=== PATIENT | male | born 1950 | race Caucasian/White ===

== ENCOUNTER 2022-10-18 09:04 | Outpatient (OUT) | payer MEDICARE, OTHER, SELFPAY ==
--- NOTE | 2022-10-18 09:32 | US_ITS ---
The [address] [address] Patient Name: MAURY VILLALPANDO MRN: [id number] date: 1950 Sex: M Assigned Patient Location: US Current Patient Location: US Accession/Order Number: [id number] Exam Date: 10/18/2022 10:20 Report Date: 10/19/2022 08:05 At the request of: NON-STAFF PHYSICIAN Procedure: US renal BI EXAMINATION: US renal BI HISTORY: Renal Cyst N28.1 , chronic left flank pain COMPARISON: CT abdomen pelvis without contrast 09/12/2022, ultrasound kidneys 06/18/2019 TECHNIQUE: Ultrasound examination was performed of the kidneys and urinary bladder. FINDINGS: RIGHT KIDNEY: Contains a few small nonobstructing stones. No evidence of pelvocaliectasis or mass. Normal renal cortical parenchymal echogenicity. Color Doppler demonstrates blood flow within the kidney. Kidney: 10.1 x 4.9 x 4.9 cm LEFT KIDNEY: Contain several benign-appearing cysts, largest is 3.2 cm. Collection of nonobstructing stones within inferior pole. Normal renal cortical parenchymal echogenicity. Color Doppler demonstrates blood flow within the kidney. Kidney: 11.4 x 5.1 x 6.7 cm BLADDER: No visible wall thickening, mass, or calculi. IMPRESSION: 1. Bilateral nonobstructing nephrolithiasis. 2. Benign-appearing cysts. No suspicious renal findings. Electronically authenticated by: ALTHEA ARCHIBALD Date: 10/19/2022 08:05
[2022-10-18 12:26] LABS: Prostate Specific Antigen Dx 1.43 ng/mL (<=4.00)
== END 2022-10-18 09:05 ==
LOC: US 09:12
PROVIDERS: PCP Internal Medicine
DX: N28.1 Cyst of kidney, acquired (principal); R97.20 Elevated prostate specific antigen [PSA]
CPT/HCPCS: 36415; 76775; 84153

== ENCOUNTER 2023-01-12 08:56 | Outpatient (OUT) | payer MEDICARE, OTHER, SELFPAY ==
[2023-01-19 14:10] LABS: Pancreatic Elastase, Fecal <50 (>200)
[2023-01-20 17:09] LABS: Lactoferrin, Fecal, Quant. 1.78 ug/mL(g) (0.00-7.24)
[2023-01-24 00:10] LABS: Calprotectin, Fecal 36 ug/g (0-120)
[2023-01-24 15:07] LABS: Ova + Parasite Exam Final report (.)
== END 2023-01-12 08:57 | disposition home or self-care (01) ==
LOC: LAB 08:58
PROVIDERS: PCP Internal Medicine; Visit Provider Internal Medicine
DX: R19.7 Diarrhea, unspecified (principal)
CPT/HCPCS: 82656; 83631; 83993; 87045; 87046; 87177; 87209; 87427

== ENCOUNTER 2023-01-31 19:55 | Outpatient (OUT) | payer MEDICARE, OTHER, SELFPAY | END 2023-01-31 19:56 | disposition home or self-care (01) | LOC: SLEEP 19:55 | PROVIDERS: PCP Internal Medicine; Visit Provider Internal Medicine | DX: G47.33 Obstructive sleep apnea (adult) (pediatric) (principal) | CPT/HCPCS: 95810 ==

== ENCOUNTER 2023-02-24 17:04 | Emergency (ER) | payer MEDICARE, OTHER, SELFPAY ==
[2023-02-24] VITALS (36 sets, daily range): BP systolic 91–121; BP diastolic 50–77; PULSE 58–76; RESP 9–22; TEMP 36.6; O2SAT 95–100; BMI 28.4
--- NOTE | 2023-02-24 17:22 | ECG_ITS ---
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
--- NOTE | 2023-02-24 17:22 | ED.CHESTPAI1 ---
HPI - Chest Pain General Chief Complaint: Chest Pain Stated Complaint: HYPOTENSION Time Seen by Provider: 02/24/23 17:09 Source: patient Mode of arrival: walk-in Limitations: no limitations History of Present Illness HPI narrative: patient is a pleasant 72-year-old male history of coronary artery disease and stent ?1 who presents to the Emergency Room for the evaluation of hypotension and intermittent chest pain since last night. Patient denies any chest pain at this time. He had a negative cardiac catheterization earlier this year. He does not smoke. He states he was diagnosed with Covid with a home Covid test five days ago. He has had symptoms for six days. He has multiple sick contacts in the home. He was recently taken off of his amlodipine, his PCP discontinued this medication earlier this month and increased his lisinopril dosage. He was instructed to take his blood pressure regularly and his noted since yesterday that he has been lightheaded and had low blood pressure. He is eating and drinking well. No fevers or vomiting. No peripheral edema. No significant cough, no complaint of shortness of breath. he states his low blood pressure was his primary concern. He states on arrival to the Emergency Room he is feeling better. Risk Factors Coronary artery disease risk factors: hyperlipidemia and hypertension Related Data Home Medications Medication Instructions Recorded Confirmed albuterol sulfate 2.5 mg/3 mL 2.5 mg continuous nebulization Q4H 02/24/23 02/24/23 (0.083 %) solution for nebulization PRN shortness of breath or wheezing atorvastatin 40 mg tablet 40 mg PO DAILY 02/24/23 02/24/23 citalopram 20 mg tablet 20 mg PO DAILY 02/24/23 02/24/23 clopidogrel 75 mg tablet 75 mg PO DAILY 02/24/23 02/24/23 gabapentin 300 mg capsule 300 mg PO BEDTIME 02/24/23 02/24/23 lisinopril 40 mg tablet 40 mg PO DAILY 02/24/23 02/24/23 prednisone 20 mg tablet 20 mg PO Q12H 02/24/23 02/24/23 pyrilamine 7.5 mg-dextromethorphan 10 ml PO .evvery 8 hours 02/24/23 02/24/23 7.5 mg/5 mL oral liquid ([place] DM) Allergies Allergy/AdvReac Type Severity Reaction Status Date / Time No Known Drug Allergies Allergy Verified 02/24/23 17:13 Review of Systems ROS Constitutional Denies: fever or chills Ears, nose, mouth, and throat Reports: nasal congestion; Denies: throat pain Cardiovascular Reports: chest pain Respiratory Reports: cough; Denies: shortness of breath Gastrointestinal Denies: nausea or vomiting Genitourinary Denies: painful urination Musculoskeletal Denies: back pain Integumentary/Breast Denies: rash Neurological Denies: headache Hematologic/Lymphatic Reports: easy bruising Exam Narrative Exam Narrative: Gen.: Awake, alert, in no distress Head: Normocephalic, atraumatic ENT: Moist mucous membranes Respiratory: No respiratory distress, lungs clear bilaterally Cardio: Regular rate and rhythm Gastrointestinal: Abdomen is soft, nondistended and nontender to palpation Extremities: Moves extremities equally, no pedal edema Psych: Normal mood and affect Neuro: No focal neuro deficit Skin: Warm, dry, intact Constitutional Vital Signs, click to edit/add: Last Vital Signs Temp 98 F 02/24/23 17:22 Pulse 68 02/24/23 20:30 Resp 15 02/24/23 20:30 BP 121/77 02/24/23 20:30 Pulse Ox 98 02/24/23 20:30 O2 Del Method Room Air 02/24/23 17:22 Course Vital Signs Vital signs: Vital Signs Pulse Oximetry 98 02/24/23 17:16 Temperature 98 F 02/24/23 17:22 Pulse Rate 68 02/24/23 20:30 Respiratory Rate 15 02/24/23 20:30 Blood Pressure 121/77 02/24/23 20:30 Pulse Oximetry 98 02/24/23 20:30 Oxygen Delivery Method Room Air 02/24/23 17:22 MDM - Chest Pain MDM Narrative Medical decision making narrative: patient treated with IV fluids. He had no chest pain complaints in the Emergency Room. He maintains a stable manual blood pressure with a systolic over one hundred. Labs obtained, chest x-ray with no evidence of acute cardiopulmonary changes. Patient found to have significantly elevated BUN, stable creatinine of 2.6 and anemia with hemoglobin of eight. I discussed this with the patient, as well as my suspicion for gastrointestinal bleed. Patient reveals that he had endoscopy and colonoscopy with Dr. Donis at [facility] one week ago and states his test was unremarkable. He does state that he has been having dark tarry stools for the last several days. He is on Plavix daily. Rectal exam was performed with Shaye Mota RN at bedside throughout the duration of the exam. There is no active bleeding per rectum. A small amount of dark stool was obtained for Hemoccult, patient is Hemoccult-positive. IV Protonix given for gastrointestinal bleed. Discussed admission with general surgery, Dr. Daly ([id number]) who feels the patient should be transferred to the facility where he was just recently scoped for endoscopy and colonoscopy. Patient is agreeable to transfer to [facility]. Type and screen was obtained, repeat troponin obtained. 1854: discussed the case with Dr. Villafana for gastrointestinal service at [facility] who is in agreement with transfer to [facility]. He requested an IV bolus of 80 mg of Protonix and then the patient can be transitioned to IV Protonix twice a day. Hospitalist paged at [facility] for transfer. 2049: patient was accepted by Dr. Ramos for hospitalist service. Patient is stable at this time with stable vital signs, no hypotension or tachycardia. He has not complained of chest pain and repeat troponin is normal. we received a bed assignment almost immediately, patient will be transferred by EMS, stable at this time. Critical care time thirty-five minutes Medical Records Data Attestation: I reviewed the patient's medical records. Lab Data Attestation: I reviewed the patient's lab results. Labs: Lab Results 02/24/23 02/24/23 02/24/23 Range/Units 17:35 18:20 18:45 WBC 16.6 H (4.0-11.0) 10^3/uL RBC 2.75 L (4.70-6.10) 10^6/uL Hgb 8.1 L (14.0-18.0) g/dL Hct 24.2 L (42.0-54.0) % MCV 88.0 (80.0-94.0) fL MCH 29.5 (25.9-34.0) pg MCHC 33.5 (29.9-35.2) g/dL RDW 13.9 (11.0-15.0) % Plt Count 178 (150-450) 10^3/uL MPV 10.8 (9.5-13.5) fL Neut % (Auto) 86.9 H (43.0-75.0) % Lymph % (Auto) 8.2 L (20.5-60.0) % [place] % (Auto) 3.5 (1.7-12.0) % Eos % (Auto) 0.0 L (0.9-7.0) % Baso % (Auto) 0.1 L (0.2-2.0) % Neut # (Auto) 14.5 H (1.4-6.5) 10^3/uL Lymph # (Auto) 1.4 (1.2-3.8) 10^3/uL [place] # (Auto) 0.6 (0.3-0.8) 10^3/uL Eos # (Auto) 0.0 (0.0-0.7) 10^3/uL Baso # (Auto) 0.0 (0.0-0.1) 10^3/uL Abs Immat Gran (auto) 0.22 H (0.00-0.03) 10^3/uL Imm/Tot Granulo (auto) 1.3 H (0.0-0.5) % PT 11.1 (9.0-11.6) sec INR 1.05 APTT 20.8 L (22.3-36.2) sec Sodium 135 L (136-145) mmol/L Potassium 3.6 (3.5-5.1) mmol/L Chloride 101 (98-107) mmol/L Carbon Dioxide 23.7 (21.0-32.0) mmol/L Anion Gap 13.9 BUN 93.0 H* (7.0-18.0) mg/dL Creatinine 2.60 H (0.70-1.30) mg/dL Est GFR ( Amer) 30 L (>=60) Est GFR (Non-Af Amer) 25 L (>=60) BUN/Creatinine Ratio 35.8 Glucose 173 H (74-106) mg/dL Calcium 8.5 (8.5-10.1) mg/dL Total Bilirubin 0.4 (0.2-1.0) mg/dL AST 13 L (15-37) U/L ALT 22 (16-63) U/L Alkaline Phosphatase 33 L (46-116) U/L Troponin I High Sens 16.5 16.8 (4.0-76.1) pg/mL NT-Pro-B Natriuret Pep 261.0 (<=900.0) pg/mL Total Protein 6.1 L (6.4-8.2) g/dL Albumin 3.1 L (3.4-5.0) g/dL Globulin 3.0 g/dL Albumin/Globulin Ratio 1.0 Stool Occult Blood Positive A Blood Type AB Positive Antibody Screen Negative Imaging Data Chest x-ray: Attestation: I have reviewed the pertinent imaging results. Radiologist's impression: Procedure: XR chest 1V EXAMINATION: XR chest 1V HISTORY: Chest pain COMPARISON: None. TECHNIQUE: Portable chest FINDINGS: The lung parenchyma is free of consolidation or infiltrate. No pneumothorax or pleural effusion. The cardiac, mediastinal and hilar contours are normal. The visualized osseous structures exhibit no gross abnormality. IMPRESSION: No acute cardiopulmonary abnormality. Electronically authenticated by: MAYITO CONTRERAS Date: 02/24/2023 18:04 ECG Data Attestation: I personally reviewed and interpreted this ECG as follows: (normal sinus rhythm at a rate of fifty-eight, no acute ST elevation or ectopy. EKG reviewed by attending physician) ECG interpretation date: 02/24/23 ECG interpretation time: 17:24 Critical Care Time Critical Care Time Total Critical Care Time: 35 Discharge Plan Discharge Chief Complaint: Chest Pain Clinical Impression: Acute hypotension, COVID-19, GI bleed, Anemia, Chest pain Patient Disposition: [facility] Time of Disposition Decision: 20:55 Discharge Location: [facility] Condition: Good Prescriptions / Home Meds: No Action albuterol sulfate 2.5 mg /3 mL (0.083 %) solution for nebulization 2.5 mg continuous nebulization Q4H PRN (Reason: shortness of breath or wheezing) atorvastatin 40 mg tablet 40 mg PO DAILY citalopram 20 mg tablet 20 mg PO DAILY clopidogrel 75 mg tablet 75 mg PO DAILY gabapentin 300 mg capsule 300 mg PO BEDTIME prednisone 20 mg tablet 20 mg PO Q12H [place] DM 7.5-7.5 mg/5 mL liquid 10 ml PO .evvery 8 hours lisinopril 40 mg tablet 40 mg PO DAILY Referrals: ARASELI KAUR [Primary Care Provider] - 1 week
--- NOTE | 2023-02-24 17:23 | XR_ITS ---
The [address] [address] Patient Name: MAURY VILLALPANDO MRN: [id number] date: 1950 Sex: M Assigned Patient Location: ER Current Patient Location: ER Accession/Order Number: [id number] Exam Date: 02/24/2023 17:50 Report Date: 02/24/2023 18:04 At the request of: EFE CALDERON Procedure: XR chest 1V EXAMINATION: XR chest 1V HISTORY: Chest pain COMPARISON: None. TECHNIQUE: Portable chest FINDINGS: The lung parenchyma is free of consolidation or infiltrate. No pneumothorax or pleural effusion. The cardiac, mediastinal and hilar contours are normal. The visualized osseous structures exhibit no gross abnormality. XR/XR chest 1V IMPRESSION: No acute cardiopulmonary abnormality. Electronically authenticated by: MAYITO CONTRERAS Date: 02/24/2023 18:04
[2023-02-24] MEDS: 0.9 % SODIUM CHLORIDE 1,000 ML 1000 ML IV (17:42)
[2023-02-24 17:44] LABS: Basophils Percent Auto 0.1 % (0.2-2.0); Hematocrit 24.2 % (42.0-54.0); Hemoglobin 8.1 g/dL (14.0-18.0); Immature Granulocytes Abs Auto 0.22 10^3/uL (0.00-0.03); Immature Granulocytes Pct Auto 1.3 % (0.0-0.5); Lymphocytes Absolute Auto 1.4 10^3/uL (1.2-3.8); Lymphocytes Percent Auto 8.2 % (20.5-60.0); Mean Corpuscular HGB Conc 33.5 g/dL (29.9-35.2); Mean Corpuscular Hemoglobin 29.5 pg (25.9-34.0); Mean Platelet Volume 10.8 fL (9.5-13.5); Monocytes Absolute Auto 0.6 10^3/uL (0.3-0.8); Monocytes Percent Auto 3.5 % (1.7-12.0); Neutrophils Absolute Auto 14.5 10^3/uL (1.4-6.5); Neutrophils Percent Auto 86.9 % (43.0-75.0); Platelet Count 178 10^3/uL (150-450); Red Blood Count 2.75 10^6/uL (4.70-6.10); Red Cell Distribution Width 13.9 % (11.0-15.0); White Blood Count 16.6 10^3/uL (4.0-11.0)
[2023-02-24 17:58] LABS: INR 1.05; Partial Thromboplastin Time 20.8 sec (22.3-36.2); Prothrombin Time 11.1 sec (9.0-11.6)
[2023-02-24 18:07] LABS: Alanine Aminotransferase 22 U/L (16-63); Albumin Level 3.1 g/dL (3.4-5.0); Alkaline Phosphatase 33 U/L (46-116); Anion Gap 13.9; Aspartate Amino Transferase 13 U/L (15-37); BUN Creatinine Ratio 35.8; Bilirubin Total 0.4 mg/dL (0.2-1.0); Calcium 8.5 mg/dL (8.5-10.1); Carbon Dioxide 23.7 mmol/L (21.0-32.0); Chloride 101 mmol/L (98-107); Estimated GFR (African America 30 (>=60); Estimated GFR (Non-African Ame 25 (>=60); Glucose 173 mg/dL (74-106); Potassium 3.6 mmol/L (3.5-5.1); Sodium 135 mmol/L (136-145); Total Protein 6.1 g/dL (6.4-8.2); Troponin I High Sensitivity 16.5 pg/mL (4.0-76.1)
--- NOTE | 2023-02-24 18:20 | ECG_ITS ---
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
[2023-02-24 18:33] LABS: Occult Blood Positive
[2023-02-24] MEDS: PANTOPRAZOLE SODIUM 40 MG VIAL IV ×2 (18:57→19:15)
[2023-02-24 19:18] LABS: Troponin I High Sensitivity 16.8 pg/mL (4.0-76.1)
[2023-02-24] MEDS: 0.9 % SODIUM CHLORIDE 1,000 ML 80 ML IV (21:34)
== END 2023-02-24 22:32 | disposition short-term general hospital (02) ==
PROVIDERS: Physician Assistant; Emergency Provider Emergency Medicine; PCP Internal Medicine
DX: K92.2 Gastrointestinal hemorrhage, unspecified (principal); R07.9 Chest pain, unspecified; I95.9 Hypotension, unspecified; D64.9 Anemia, unspecified; I25.10 Atherosclerotic heart disease of native coronary artery without angina pectoris; Z95.5 Presence of coronary angioplasty implant and graft; Z79.899 Other long term (current) drug therapy; U07.1 COVID-19; Z79.02 Long term (current) use of antithrombotics/antiplatelets
CPT/HCPCS: 36415; 71045; 80053; 83880; 84484; 85025; 85610; 85730; 86850; 86900; 86901; 93005; 96361; 96374; 99285; G0328

== ENCOUNTER 2023-03-28 19:47 | Outpatient (OUT) | payer MEDICARE, OTHER, SELFPAY | END 2023-03-28 19:48 | disposition home or self-care (01) | LOC: SLEEP 19:47 | PROVIDERS: PCP Internal Medicine; Visit Provider Internal Medicine | DX: G47.33 Obstructive sleep apnea (adult) (pediatric) (principal) | CPT/HCPCS: 95811 ==

== ENCOUNTER 2023-07-07 13:32 | Outpatient (OUT) | payer MEDICARE, OTHER, SELFPAY | END 2023-07-07 13:33 | disposition home or self-care (01) | LOC: MN 13:33 | PROVIDERS: PCP Internal Medicine | DX: E11.21 Type 2 diabetes mellitus with diabetic nephropathy (principal) | CPT/HCPCS: G0108 ==

== ENCOUNTER 2023-10-10 16:04 | Emergency (ER) | payer MEDICARE, OTHER, SELFPAY ==
[2023-10-10 16:13] VITALS: BP 129/87; PULSE 82; TEMP 37.4; O2SAT 97; BMI 28.6
--- NOTE | 2023-10-10 17:28 | ED.ABDPAIN1 ---
HPI - Abdominal Pain General Chief Complaint: Abdominal Pain Stated Complaint: Abdominal Pain Time Seen by Provider: 10/10/23 16:58 Source: patient Mode of arrival: walk-in Limitations: no limitations History of Present Illness HPI narrative: Patient was seen by his primary care physician's today and told to go to the ER. He started developing abdominal pain yesterday. He believes he spiked a fever last night and he also had several episodes of vomiting. He has not had any surgeries to his abdomen before. He says he also developed burning with urination. He does not have any back or flank pain. No history of kidney stones. He has not taken any antibiotics. He has coronary disease and received a coronary stent last year at [facility]. He does not have any chest pain or shortness of breath. Related Data Home Medications ?Medication ?Instructions ?Recorded ?Confirmed albuterol sulfate 2.5 mg/3 mL 2.5 mg continuous nebulization Q4H 02/24/23 10/10/23 (0.083 %) solution for nebulization PRN shortness of breath or wheezing atorvastatin 40 mg tablet 40 mg PO DAILY 02/24/23 10/10/23 citalopram 20 mg tablet 20 mg PO DAILY 02/24/23 10/10/23 clopidogrel 75 mg tablet 75 mg PO DAILY 02/24/23 02/24/23 empagliflozin 10 mg tablet 2.5 mg PO DAILY 02/24/23 10/10/23 gabapentin 300 mg capsule 300 mg PO BEDTIME 02/24/23 10/10/23 gabapentin 300 mg capsule 300 mg PO DAILY 02/24/23 10/10/23 insulin glargine 100 unit/mL (3 60 unit subcut DAILY 02/24/23 10/10/23 mL) subcutaneous pen lisinopril 40 mg tablet 20 mg PO DAILY 02/24/23 10/10/23 pantoprazole 40 mg tablet,delayed 40 mg PO DAILY 02/24/23 10/10/23 release pyrilamine 7.5 mg-dextromethorphan 10 ml PO .evvery 8 hours 02/24/23 02/24/23 7.5 mg/5 mL oral liquid ([place] DM) semaglutide 0.25 mg or 0.5 mg (2 0.25 mg subcut QWEEK 02/24/23 10/10/23 mg/3 mL) subcutaneous pen injector (Ozempic) tamsulosin 0.4 mg capsule 0.4 mg PO DAILY 02/24/23 10/10/23 Bacillus coagulans-inulin 1 1 cap PO Q12H 10/10/23 10/10/23 billion cell-250 mg capsule (Probiotic Formula (inulin)) apixaban 5 mg tablet 5 mg PO Q12H 10/10/23 10/10/23 carvedilol 12.5 mg tablet 12.5 mg PO Q12H 10/10/23 10/10/23 ferrous sulfate 325 mg (65 mg 325 mg PO DAILY 10/10/23 10/10/23 iron) tablet (FeroSul) ranolazine 500 mg tablet,extended 500 mg PO Q12H 10/10/23 10/10/23 release,12 hr spironolactone 25 mg tablet 12.5 mg PO DAILY 10/10/23 10/10/23 Allergies Allergy/AdvReac Type Severity Reaction Status Date / Time No Known Drug Allergies Allergy Verified 10/10/23 16:18 Exam Narrative Exam Narrative: Very pleasant woman vital's are stable temperature 99.3 pulse oximetry normal. Overall he appears healthy his skin is warm and dry his mucous memories are moist and pink his color is good. He has normal heart sounds with no S3 or murmur. He has no respiratory distress coughing or congestion. Examination abdomen no abdominal surgical incisions are noted. He has equal tenderness at McBurney's point the left mid and left lower quadrant are also tender. He has no tenderness in the right upper quadrant. Extremities are normal with no edema or swelling. Constitutional Vital Signs, click to edit/add: Last Vital Signs Temp 99.3 F 10/10/23 16:13 Pulse 82 10/10/23 16:13 Resp 16 10/10/23 16:13 BP 129/87 10/10/23 16:13 Pulse Ox 97 10/10/23 16:13 O2 Del Method Room Air 10/10/23 16:13 Course Vital Signs Vital signs: Vital Signs Temperature 99.3 F 10/10/23 16:13 Pulse Rate 82 10/10/23 16:13 Respiratory Rate 16 10/10/23 16:13 Blood Pressure 129/87 10/10/23 16:13 Pulse Oximetry 97 10/10/23 16:13 Oxygen Delivery Method Room Air 10/10/23 16:13 Temperature 99.3 F 10/10/23 16:13 Pulse Rate 82 10/10/23 16:13 Respiratory Rate 16 10/10/23 16:13 Blood Pressure 129/87 10/10/23 16:13 Pulse Oximetry 97 10/10/23 16:13 Oxygen Delivery Method Room Air 10/10/23 16:13 Discharge Plan Discharge Chief Complaint: Abdominal Pain Prescriptions / Home Meds: No Action albuterol sulfate 2.5 mg /3 mL (0.083 %) solution for nebulization 2.5 mg continuous nebulization Q4H PRN (Reason: shortness of breath or wheezing) atorvastatin 40 mg tablet 40 mg PO DAILY citalopram 20 mg tablet 20 mg PO DAILY clopidogrel 75 mg tablet 75 mg PO DAILY gabapentin 300 mg capsule 300 mg PO BEDTIME [place] DM 7.5-7.5 mg/5 mL liquid 10 ml PO .evvery 8 hours lisinopril 40 mg tablet 20 mg PO DAILY Ozempic 0.25 mg or 0.5 mg (2 mg/3 mL) pen injector 0.25 mg subcut QWEEK Rx Instructions: for 4 weeks pantoprazole 40 mg tablet,delayed release (DR/EC) 40 mg PO DAILY insulin glargine 100 unit/mL (3 mL) insulin pen 60 unit subcut DAILY tamsulosin 0.4 mg capsule 0.4 mg PO DAILY gabapentin 300 mg capsule 300 mg PO DAILY empagliflozin 10 mg tablet 2.5 mg PO DAILY apixaban 5 mg tablet 5 mg PO Q12H Probiotic Formula (inulin) 1 billion-250 cell-mg capsule 1 cap PO Q12H carvedilol 12.5 mg tablet 12.5 mg PO Q12H Rx Instructions: must administer with a meal/food ferrous sulfate [FeroSul] 325 mg (65 mg iron) tablet 325 mg PO DAILY ranolazine 500 mg tablet extended release 12 hr 500 mg PO Q12H spironolactone 25 mg tablet 12.5 mg PO DAILY Print Language: Russian Referrals: ARASELI KAUR [Primary Care Provider] - 1 week
--- NOTE | 2023-10-10 17:31 | CT_ITS ---
The [address] [address] Patient Name: MAURY VILLALPANDO MRN: [id number] date: 1950 Sex: M Assigned Patient Location: ER Current [facility] Accession/Order Number: [id number] Exam Date: 10/10/2023 18:40 Report Date: 10/10/2023 20:17 At the request of: MIKY TSANG Procedure: CT abdomen pelvis wo con PROCEDURE: CT abdomen pelvis wo con CLINICAL INDICATION: 72 years Male Abdominal pain COMPARISONS: CT abdomen pelvis dated 09/12/2022. TECHNIQUE: CT imaging of the abdomen and pelvis was performed without oral or intravenous contrast. Coronal and sagittal reformations were created. Individualized dose optimization technique was used for the procedure performed. FINDINGS: Limited visualization of lung bases is unremarkable. There is no pleural or pericardial effusion. Right kidney appears mildly atrophic. Small bilateral renal cysts are again identified. No radiopaque renal calculi are seen. There is no hydronephrosis on either side. Unenhanced liver, gallbladder, spleen, pancreas and adrenal glands are normal. Bowel loops are normal in course and caliber, there is no obstruction or free air. Appendix is normal. There is no ascites or adenopathy. There are minimal vascular calcifications. There is moderate facet arthropathy within the lower lumbar spine. CT/CT abdomen pelvis wo con IMPRESSION: No acute abnormality within the upper abdomen and pelvis on this limited noncontrast exam. Electronically authenticated by: OWEN HORNE Date: 10/10/2023 20:17
[2023-10-10] MEDS: MORPHINE SULFATE 2 MG/ML SYRINGE IV (17:56)
[2023-10-10] MEDS: 0.9 % SODIUM CHLORIDE 1,000 ML 999 ML IV (17:56)
[2023-10-10 18:06] LABS: Basophils Percent Auto 0.2 % (0.2-2.0); Eosinophils Absolute Auto 0.1 10^3/uL (0.0-0.7); Eosinophils Percent Auto 0.3 % (0.9-7.0); Hematocrit 39.5 % (42.0-54.0); Hemoglobin 13.1 g/dL (14.0-18.0); Immature Granulocytes Abs Auto 0.08 10^3/uL (0.00-0.03); Immature Granulocytes Pct Auto 0.5 % (0.0-0.5); Lymphocytes Absolute Auto 1.5 10^3/uL (1.2-3.8); Lymphocytes Percent Auto 8.2 % (20.5-60.0); Mean Corpuscular HGB Conc 33.2 g/dL (29.9-35.2); Mean Corpuscular Hemoglobin 28.3 pg (25.9-34.0); Mean Corpuscular Volume 85.3 fL (80.0-94.0); Mean Platelet Volume 10.5 fL (9.5-13.5); Monocytes Absolute Auto 1.5 10^3/uL (0.3-0.8); Monocytes Percent Auto 8.3 % (1.7-12.0); Neutrophils Absolute Auto 14.5 10^3/uL (1.4-6.5); Neutrophils Percent Auto 82.5 % (43.0-75.0); Platelet Count 137 10^3/uL (150-450); Red Blood Count 4.63 10^6/uL (4.70-6.10); Red Cell Distribution Width 13.7 % (11.0-15.0); White Blood Count 17.6 10^3/uL (4.0-11.0)
[2023-10-10 18:12] LABS: Bilirubin Urine NEGATIVE (NEGATIVE); Blood Urine MODERATE (NEGATIVE); Clarity Urine CLEAR (CLEAR); Color Urine YELLOW (YELLOW); Glucose Urine UA >=1000 mg/dL (NEGATIVE); Ketones Urine NEGATIVE (NEGATIVE); Leukocyte Esterase Urine TRACE (NEGATIVE); Nitrite Urine NEGATIVE (NEGATIVE); Protein Urine >=300 mg/dL (NEG/TRACE); Specific Gravity Urine 1.025 (1.005-1.025); Urine Microscopic Indicated YES; Urobilinogen Urine 0.2 EU/dL (0.2-1.0)
[2023-10-10 18:19] VITALS: BP 162/89; PULSE 71; O2SAT 96
[2023-10-10 18:21] LABS: Alanine Aminotransferase 18 U/L (16-63); Albumin Globulin Ratio 0.9; Albumin Level 3.3 g/dL (3.4-5.0); Alkaline Phosphatase 48 U/L (46-116); Anion Gap 16.7; Aspartate Amino Transferase 11 U/L (15-37); Bacteria Urine TRACE #/HPF (NONE SEEN); Bilirubin Total 1.1 mg/dL (0.2-1.0); Chloride 105 mmol/L (98-107); Estimated GFR (African America 32 (>=60); Estimated GFR (Non-African Ame 27 (>=60); Globulin 3.8 g/dL; Glucose 101 mg/dL (74-106); Mucus Urine TRACE (NONE SEEN); Potassium 3.7 mmol/L (3.5-5.1); RBC Urine 0-2 #/HPF (0-2); Sodium 141 mmol/L (136-145); Total Protein 7.1 g/dL (6.4-8.2)
[2023-10-10 18:22] LABS: Cast Seen? NONE SEEN #/LPF (NONE SEEN); Crystals Seen? None Seen #/HPF (None Seen); Sperm Urine SEEN; Squamous Epithelial Cell Urine NONE SEEN #/LPF (NONE/RARE); Urine Culture Indicated YES
[2023-10-10 19:19] VITALS: BP 111/79; PULSE 66; O2SAT 98
--- NOTE | 2023-10-10 20:35 | ED_ITS ---
HPI - Abdominal Pain General Chief Complaint: Abdominal Pain Stated Complaint: Abdominal Pain Time Seen by Provider: 10/10/23 16:58 Source: patient Mode of arrival: walk-in Limitations: no limitations History of Present Illness HPI narrative: 72-year-old male presented to the emergency department and was initially seen by Dr. Fernández and signed out to me after discussing the case with him thoroughly. Please see his full history and physical exam. Related Data Home Medications ?Medication ?Instructions ?Recorded ?Confirmed albuterol sulfate 2.5 mg/3 mL 2.5 mg continuous nebulization Q4H 02/24/23 10/10/23 (0.083 %) solution for nebulization PRN shortness of breath or wheezing atorvastatin 40 mg tablet 40 mg PO DAILY 02/24/23 10/10/23 citalopram 20 mg tablet 20 mg PO DAILY 02/24/23 10/10/23 clopidogrel 75 mg tablet 75 mg PO DAILY 02/24/23 02/24/23 empagliflozin 10 mg tablet 2.5 mg PO DAILY 02/24/23 10/10/23 gabapentin 300 mg capsule 300 mg PO BEDTIME 02/24/23 10/10/23 gabapentin 300 mg capsule 300 mg PO DAILY 02/24/23 10/10/23 insulin glargine 100 unit/mL (3 60 unit subcut DAILY 02/24/23 10/10/23 mL) subcutaneous pen lisinopril 40 mg tablet 20 mg PO DAILY 02/24/23 10/10/23 pantoprazole 40 mg tablet,delayed 40 mg PO DAILY 02/24/23 10/10/23 release pyrilamine 7.5 mg-dextromethorphan 10 ml PO .evvery 8 hours 02/24/23 02/24/23 7.5 mg/5 mL oral liquid (Haddock DM) semaglutide 0.25 mg or 0.5 mg (2 0.25 mg subcut QWEEK 02/24/23 10/10/23 mg/3 mL) subcutaneous pen injector (Ozempic) tamsulosin 0.4 mg capsule 0.4 mg PO DAILY 02/24/23 10/10/23 Bacillus coagulans-inulin 1 1 cap PO Q12H 10/10/23 10/10/23 billion cell-250 mg capsule (Probiotic Formula (inulin)) apixaban 5 mg tablet 5 mg PO Q12H 10/10/23 10/10/23 carvedilol 12.5 mg tablet 12.5 mg PO Q12H 10/10/23 10/10/23 ferrous sulfate 325 mg (65 mg 325 mg PO DAILY 10/10/23 10/10/23 iron) tablet (FeroSul) ranolazine 500 mg tablet,extended 500 mg PO Q12H 10/10/23 10/10/23 release,12 hr spironolactone 25 mg tablet 12.5 mg PO DAILY 10/10/23 10/10/23 Previous Rx's ?Medication ?Instructions ?Recorded dicyclomine 10 mg capsule 10 mg PO QID PRN abdominal pain 10/10/23 #20 caps ondansetron 4 mg disintegrating 4 mg PO Q6H PRN nausea and 10/10/23 tablet vomiting #20 tabs Allergies Allergy/AdvReac Type Severity Reaction Status Date / Time No Known Drug Allergies Allergy Verified 10/10/23 16:18 Exam Constitutional Vital Signs, click to edit/add: Last Vital Signs Temp 99.3 F 10/10/23 16:13 Pulse 66 10/10/23 19:19 Resp 18 10/10/23 19:19 BP 111/79 10/10/23 19:19 Pulse Ox 98 10/10/23 19:19 O2 Del Method Room Air 10/10/23 19:19 Course Vital Signs Vital signs: Vital Signs Temperature 99.3 F 10/10/23 16:13 Pulse Rate 82 10/10/23 16:13 Respiratory Rate 16 10/10/23 16:13 Blood Pressure 129/87 10/10/23 16:13 Pulse Oximetry 97 10/10/23 16:13 Oxygen Delivery Method Room Air 10/10/23 16:13 Temperature 99.3 F 10/10/23 16:13 Pulse Rate 66 10/10/23 19:19 Respiratory Rate 18 10/10/23 19:19 Blood Pressure 111/79 10/10/23 19:19 Pulse Oximetry 98 10/10/23 19:19 Oxygen Delivery Method Room Air 10/10/23 19:19 MDM - Abdominal Pain MDM Narrative Medical decision making narrative: CAT scan is negative. WBC is elevated. The rest of his labs are negative, including lactic acid. Repeat examination at 8:30 PM shows no tenderness at all in his abdomen. I do not suspect an acute process and he is able to be discharged home. Treatment diagnosis and follow-up were discussed with the patient. Differential Diagnosis Differential diagnosis: Likely abdominal pain, acute appendicitis, calculus of kidney, constipation, diverticulitis, gastroenteritis, pancreatitis and small bowel obstruction Lab Data Attestation: I reviewed the patient's lab results. Labs: Lab Results 10/10/23 Range/Units 17:50 WBC 17.6 H (4.0-11.0) 10^3/uL RBC 4.63 L (4.70-6.10) 10^6/uL Hgb 13.1 L (14.0-18.0) g/dL Hct 39.5 L (42.0-54.0) % MCV 85.3 (80.0-94.0) fL MCH 28.3 (25.9-34.0) pg MCHC 33.2 (29.9-35.2) g/dL RDW 13.7 (11.0-15.0) % Plt Count 137 L (150-450) 10^3/uL MPV 10.5 (9.5-13.5) fL Neut % (Auto) 82.5 H (43.0-75.0) % Lymph % (Auto) 8.2 L (20.5-60.0) % [place] % (Auto) 8.3 (1.7-12.0) % Eos % (Auto) 0.3 L (0.9-7.0) % Baso % (Auto) 0.2 (0.2-2.0) % Neut # (Auto) 14.5 H (1.4-6.5) 10^3/uL Lymph # (Auto) 1.5 (1.2-3.8) 10^3/uL [place] # (Auto) 1.5 H (0.3-0.8) 10^3/uL Eos # (Auto) 0.1 (0.0-0.7) 10^3/uL Baso # (Auto) 0.0 (0.0-0.1) 10^3/uL Abs Immat Gran (auto) 0.08 H (0.00-0.03) 10^3/uL Imm/Tot Granulo (auto) 0.5 (0.0-0.5) % Sodium 141 (136-145) mmol/L Potassium 3.7 (3.5-5.1) mmol/L Chloride 105 (98-107) mmol/L Carbon Dioxide 23.0 (21.0-32.0) mmol/L Anion Gap 16.7 BUN 39.0 H (7.0-18.0) mg/dL Creatinine 2.43 H (0.70-1.30) mg/dL Est GFR ( Amer) 32 L (>=60) Est GFR (Non-Af Amer) 27 L (>=60) BUN/Creatinine Ratio 16.0 Glucose 101 (74-106) mg/dL Lactate 1.0 (0.4-2.0) mmol/L Calcium 9.0 (8.5-10.1) mg/dL Total Bilirubin 1.1 H (0.2-1.0) mg/dL AST 11 L (15-37) U/L ALT 18 (16-63) U/L Alkaline Phosphatase 48 (46-116) U/L Total Protein 7.1 (6.4-8.2) g/dL Albumin 3.3 L (3.4-5.0) g/dL Globulin 3.8 g/dL Albumin/Globulin Ratio 0.9 Lipase 75.0 (16.0-77.0) U/L Urine Color Yellow (YELLOW) Urine Clarity Clear (CLEAR) Urine pH 6.0 (5.0-9.0) Ur Specific [place] 1.025 (1.005-1.025) Urine Protein >=300 A (NEG/TRACE) mg/dL Urine Glucose (UA) >=1000 A (NEGATIVE) mg/dL Urine Ketones Negative (NEGATIVE) mg/dL Urine Occult Blood Moderate A (NEGATIVE) Urine Nitrite Negative (NEGATIVE) Urine Bilirubin Negative (NEGATIVE) Urine Urobilinogen 0.2 (0.2-1.0) EU/dL Ur Leukocyte Esterase Trace A (NEGATIVE) Urine RBC 0-2 (0-2) #/HPF Urine WBC 2-5 A (NONE SEEN) #/HPF Ur Squamous Epith Cells None seen (NONE/RARE) #/LPF Urine Crystals None seen (None Seen) #/HPF Urine Bacteria Trace A (NONE SEEN) #/HPF Urine Casts None seen (NONE SEEN) #/LPF Urine Mucus Trace A (NONE SEEN) Urine Sperm Seen Ur Culture Indicated? Yes Imaging Data CT scan - abdomen: Radiologist's impression: ITS Impressions Abdomen/Pelvis CT 10/10/23 17:31 IMPRESSION: No acute abnormality within the upper abdomen and pelvis on this limited noncontrast exam. Electronically authenticated by: OWEN HORNE Date: 10/10/2023 20:17 Discharge Plan Discharge Stand Alone Forms: Portal Instructions Chief Complaint: Abdominal Pain Clinical Impression: Abdominal pain Patient Disposition: Home, Self-Care Time of Disposition Decision: 20:28 Condition: Good Mode of Transportation: Private Vehicle Prescriptions / Home Meds: New dicyclomine 10 mg capsule 10 mg PO QID PRN (Reason: abdominal pain) Qty: 20 0RF ondansetron 4 mg tablet,disintegrating 4 mg PO Q6H PRN (Reason: nausea and vomiting) Qty: 20 0RF No Action albuterol sulfate 2.5 mg /3 mL (0.083 %) solution for nebulization 2.5 mg continuous nebulization Q4H PRN (Reason: shortness of breath or wheezing) atorvastatin 40 mg tablet 40 mg PO DAILY citalopram 20 mg tablet 20 mg PO DAILY clopidogrel 75 mg tablet 75 mg PO DAILY gabapentin 300 mg capsule 300 mg PO BEDTIME Haddock DM 7.5-7.5 mg/5 mL liquid 10 ml PO .evvery 8 hours lisinopril 40 mg tablet 20 mg PO DAILY Ozempic 0.25 mg or 0.5 mg (2 mg/3 mL) pen injector 0.25 mg subcut QWEEK Rx Instructions: for 4 weeks pantoprazole 40 mg tablet,delayed release (DR/EC) 40 mg PO DAILY insulin glargine 100 unit/mL (3 mL) insulin pen 60 unit subcut DAILY tamsulosin 0.4 mg capsule 0.4 mg PO DAILY gabapentin 300 mg capsule 300 mg PO DAILY empagliflozin 10 mg tablet 2.5 mg PO DAILY apixaban 5 mg tablet 5 mg PO Q12H Probiotic Formula (inulin) 1 billion-250 cell-mg capsule 1 cap PO Q12H carvedilol 12.5 mg tablet 12.5 mg PO Q12H Rx Instructions: must administer with a meal/food ferrous sulfate [FeroSul] 325 mg (65 mg iron) tablet 325 mg PO DAILY ranolazine 500 mg tablet extended release 12 hr 500 mg PO Q12H spironolactone 25 mg tablet 12.5 mg PO DAILY Print Language: Pashto Instructions: Abdominal Pain (ED) Referrals: ARASELI KAUR [Primary Care Provider] - 1 week
== END 2023-10-10 20:49 | disposition home or self-care (01) ==
PROVIDERS: Emergency Medicine Emergency Medical Services; Emergency Provider Emergency Medicine; PCP Internal Medicine
DX: R10.9 Unspecified abdominal pain (principal)
CPT/HCPCS: 36415; 74176; 80053; 81001; 83605; 83690; 85025; 87086; 96361; 96374; 99285

== ENCOUNTER 2023-11-21 09:01 | Outpatient (OUT) | payer MEDICARE, OTHER, SELFPAY ==
--- NOTE | 2023-11-21 08:59 | CA_ITS ---
Patient Name: MAURY VILLALPANDO MR#: [id number] : 1950 Exam Date: 11/21/2023 Ordering Doctor: BG KOEHLER CNP ECHOCARDIOGRAM REPORT PROCEDURE: CA ECHO DOPPLER COMPLETE INDICATIONS: Atrial fib/flutter COMPARISON: None. DESCRIPTION: COMPLETE ECHOCARDIOGRAM Real-time transthoracic echocardiography with 2D, M-mode, spectral and color flow Doppler performed. QUALITY: Technical quality was good. LEFT VENTRICLE: Normal chamber size. Moderate to severe concentric left ventricular hypertrophy with significant hypertrophy of the basal septum. Global left ventricular systolic function is hyperdynamic. LV EF: Estimated left ventricular ejection fraction is 75 % DIASTOLIC: Diastolic function is indeterminate. ATRIAL SEPTUM: LEFT ATRIUM: Mild dilatation. RIGHT ATRIUM: Mild dilatation. RIGHT VENTRICLE: Normal chamber size. Normal right ventricular systolic function. TRICUSPID VALVE: Normal mobility and thickness. No stenosis with trivial regurgitation. No evidence of pulmonary hypertension. RVSP 33 mmHg MITRAL VALVE: Normal mobility and thickness. No evidence of mitral valve stenosis. There is no mitral annular calcification. Trivial mitral regurgitation. There is slight systolic anterior motion of the anterior mitral valve leaflet without significant LVOT obstruction at rest. AORTIC VALVE: Normal trileaflet appearance. Thickened aortic valve. Normal leaflet mobility. No evidence of aortic valve stenosis. No evidence of LVOT obstruction. Mild aortic regurgitation. AORTIC ROOT: Normal diameter and appearance. The ascending aorta is mildly dilated measuring 3.8 cm. PULMONIC VALVE: Normal thickness and mobility. No stenosis. No regurgitation. PERICARDIUM: No evidence of pericardial effusion. IVC: Collapses with inspirations. Normal size. PLEURA: CONCLUSION: 1. The left ventricle exhibits moderate to severe hypertrophy with significant hypertrophy of the basal septum. Systolic function is hyperdynamic. LVEF is estimated at 75%. 2. Normal right ventricular size and systolic function. 3. Mild biatrial dilatation. 4. There is evidence of mild systolic anterior motion of the anterior mitral leaflet without significant LVOT obstruction at rest. Valsalva maneuver was not performed during this exam. 5. Normal right-sided pressures. 6. No significant valvular dysfunction. 7. The patient appears to be in sinus rhythm during the exam. 8. Findings are suggestive of possible hypertrophic cardiomyopathy. A cardiac MRI is recommended for further characterization of the above findings. Adult Echocardiography Procedure Report Left Ventricle LVEDD (3.7 - 5.6 cm): 3.66 cm LVESD (2.2 - 4.0 cm): 2.46 cm LVIVS thickness (0.6 - 1.2 cm): 2.3 cm LVPW thickness (0.5 - 1.0 cm): 1.62 cm e': 0.06 m/s E - e': 10.27 LVOT Max Gradient: 5.87 mm[Hg] LVOT Area (cm2): 1.21 m/s Peak Velocity (LVOT): 1.21 m/s Mean Velocity (LVOT): 0.81 m/s LVOT Diameter 2.14 cm Left Ventricular Ejection Fraction: 75 % Left Atrium LA Volume Index (2D A2C): 43.39 ml/m2 Left Atrium Systolic Dimension: 4.06 cm Mitral Valve MV E to A Ratio: 0.80 Mitral Valve A-Wave Peak Velocity: 0.77 m/s Mitral Valve E-Wave Peak Velocity: 0.62 m/s Right Ventricle RV Internal Diastolic Dimension: 3.07 cm Aorta AO Root Diam: 3.68 cm Ascending Ao Diam: 3.83 cm Aortic Valve AoV Area (Peak Darnell): 3.45 cm2, 3.30 cm2 AoV Area (VTI): 3.06 cm2, 2.96 cm2 Deceleration Marshall: 1.60 m/s2, 1.58 m/s2 Pressure Half-Time: 744.26 ms, 759.35 ms Peak Velocity(Antegrade Flow): 1.33 m/s, 1.21 m/s Peak Gradient(Antegrade Flow): 7.04 mm[Hg], 5.86 mm[Hg] Mean Velocity(Antegrade Flow): 0.98 m/s, 0.93 m/s Mean Gradient(Antegrade Flow): 4.23 mm[Hg], 3.76 mm[Hg] Velocity Time Integral: 36.31 cm, 33.83 cm Tricuspid Valve Peak Velocity (Regurgitant Flow): 1.95 m/s, 2.42 m/s, 2.73 m/s Pulmonic Valve Mean Gradient: 1.86 mm[Hg], 1.97 mm[Hg] Mean Velocity: 0.64 m/s, 0.67 m/s Peak Velocity: 0.87 m/s Peak Gradient: 3.06 mm[Hg], 3.06 mm[Hg] Right Atrium Right Atrium Systolic Pressure: 49.26 ml, 49.26 ml Dictated by: Severo Johnson M.D. on 11/21/2023 at 13:54 Approved by: Severo Johnson M.D. on 11/21/2023 at 14:02
== END 2023-11-21 09:02 | disposition home or self-care (01) ==
LOC: CARD 09:01
PROVIDERS: PCP Internal Medicine; Visit Provider Nurse Practitioner Family
DX: I10 Essential (primary) hypertension (principal); I48.0 Paroxysmal atrial fibrillation
CPT/HCPCS: 93306

== ENCOUNTER 2024-07-26 07:52 | Outpatient (OUT) | payer MEDICARE, OTHER, SELFPAY ==
--- NOTE | 2024-07-26 08:05 | NM_ITS ---
Patient Name: MAURY VILLALPANDO MR#: [id number] : 1950 Exam Date: 07/26/2024 Ordering Doctor: BG KOEHLER CNP RADIOLOGY REPORT PROCEDURE: NM JACKIE PERF SPECT REST STR COMPARISON: None. INDICATIONS: CHEST PAIN, SHORTNESS OF BREATH, CORONARY ARTERY DISEASE TECHNIQUE: Exam Description: Stress/Rest one day protocol gated SPECT Rest Imagin.4 mCi Tc-99m Cardiolite IV on 07/26/2024 Stress Imaging 31.0 mCi Tc-99m Cardiolite IV on 07/26/2024 Exercise Protocol: 0.4 mg Lexiscan given IV Heart Rate (bpm): Rest: 50 Max: 75 PMHR: 50 Blood Pressure: Rest: 114/79 Max: 128/62 Symptoms: Rest and peak stress ECG findings were pending and the exercise portion of the study was pending per attending physician [facility] . For more details, please see separate cardiac stress test report. FINDINGS: QUALITY OF STUDY: Good PERFUSION DEFECT: LOCATION: Inferoapical SIZE: Moderate SEVERITY: Moderate TYPE: Fixed more pronounced at rest; likely representing artifact WALL MOTION: Normal LV SIZE: 102 mL. TID / TCD: 1.0 LVEF: Calculated EF 66%. SUMMARY: Myocardial perfusion imaging study is normal CONCLUSION: 1. Myocardial perfusion imaging is normal with soft tissue artifact 2. Normal global left ventricular systolic function 3. No evidence of transient ischemic dilatation Dictated by: Kaela Ohara M.D. on 07/30/2024 at 14:09 Approved by: Kaela Ohara M.D. on 07/30/2024 at 14:15
--- OUTSIDE RECORDS SUMMARY | 2024-07-26 08:07 | XMS_ITS | CCD ---
Author Organization [facility] CliniSyne Care Team Providers Care Deputy Program Manager Name Role Phone Aashish Gaffney Attending Unavailable Mason Membreno Primary Care UnavailAashish Escudero Attending Unavailable Mason Membreno Primary Care UnavailMason Yao Primary Care Provider [phone] MASON MEMBRENO Primary Care Unavailable MASON MEMBRENO Primary Care Physician MOHINI, MOHAMAD Admitting Unavailable DES RAJAND Attending Unavailable MASON MEMBRENO Primary Care Unavailable MASON MEMBRENO Referring Unavailable CALVINHOTHMOUNA, MOHAMAD Admitting Unavailable MOHINI MOHTERRELLD Attending Unavailable MASON MEMBRENO Primary Care Unavailable MASON MEMBRENO Referring Unavailable Kimberly Talbot Unavailable Esteban Steward Unavailable GERRY WODOALL Attending Unavailable YEARKIM GERRY Admitting Unavailable HASEEB, DR MARX Primary Care Unavailable GERRY WOODALL Consulting Unavailable KYRIE CARNEY Attending Unavailable KYRIE CARNEY Admitting Unavailable HASEEB, DR MARX Primary Care Unavailable KYRIE CARNEY Consulting Unavailable GHULAM LATIF Consulting Unavailable JOCELYNE, IZA Admitting Unavailable MEMBRENO, DR MARX Primary Care Unavailable JOCELYNE, IZA Consulting Unavailable JOCELYNE, IZA Attending Unavailable JOCELYNE, IZA Attending Unavailable JOCELYNE, IZA Admitting Unavailable HASEEB, DR MARX Primary Care Unavailable ZIEBER, DR ALTHEA Gary Consulting Unavailable JOCELYNE, IZA Consulting Unavailable JOCELYNE, IZA Attending Unavailable HASEEB, DR MARX Primary Care Unavailable JOCELYNE, IZA Admitting Unavailable NADERER, DR SELAM Bourne Attending Unavailable NADERECookie, DR SELAM Bourne Admitting Unavailable SHARAN, DR MIKY Maguire Consulting Unavailabl e HASEEB, DR MARX Primary Care Unavailable GEORGETOWN, DR MAYITO Ho Consulting Unavailable NADERER, DR SELAM Bourne Consulting Unavailable YAROSH ., PAULETTE Consulting Unavailable HASEEB, DR MARX Primary Care Unavailable MARGARITA ., DR PARMAR Attending Unavailable MARGARITA ., DR PARMAR Admitting Unavailable TAYE, DR SHER Gary Consulting Unavailable MARGARITA ., DR PARMAR Consulting Unavailable JONAS ., MR ROMERO Consulting Unavailable LINDA ., YARIEL Consulting Unavailable STRAWJUAREZ WEST Consulting Unavailable WILKERSON, SHARMIN Consulting Unavailable MEMBRENO, DR MARX Primary Care Unavailable HAY ., DR RAMIREZ Attending Unavailable HAY ., DR RAMIREZ Admitting Unavailable HAY ., DR RAMIREZ Consulting Unavailable MARIA CMAYITO SHUKLA Consulting Unavailable MEMBRENO, DR MARX Primary Care Unavailable LINDA ., YARIEL Attending Unavailable LINDA ., YARIEL Admitting Unavailable LINDA ., YARIEL Consulting Unavailable ALEK ., TED Consulting Unavailable HEGG, POPPY Consulting Unavailable MEMBRENO, DR MARX Consulting Unavailable MEMBRENO, DR MARX Primary Care Unavailable MISC, DR SHIELDS Attending Unavailable MISC, DR SHIELDS Admitting Unavailable MISC, DR SHIELDS Consulting Unavailable JOCELYNE, IZA Attending Unavailable JOCELYNE, IZA Admitting Unavailable MEMBRENO, DR MARX Primary Care Unavailable JOCELYNE, IZA Consulting Unavailable MEMBRENO, DR MARX Primary Care Unavailable BEJ, SHER Attending Unavailable BEJ, SHER Admitting Unavailable BELeonardo, SHER Consulting Unavailable MEMBRENO, DR MARX Primary Care Unavailable MISC, DR SHIELDS Attending Unavailable MISC, DR SHIELDS Admitting Unavailable Membreno II, Dr. Mason Raman Primary Care Suzan APRIL Erickson Attending Unavailab Francisca Salas Attending Unavailable MOSHE Membreno Primary Care Provider MD Esteban Steward Attending Provider Kaci Torrez Unavailable MD Rachel Jin Admit Provider MD Nikolas Villafana Other Provider MD Dwain Peñaloza Attending Provider [phone] GALE CARNEY Referring Unavailable MASON MEMBRENO Primary Care Unavailable Esteban Steward Admitting UnavailEsteban Munguia Attending Unavailabl e Mason Membreno Primary Care Unavailable Rachel Jin Admitting Unavailable Mason Membreno Primary Care Unavailable Nikolas Villafana Consulting Unavailable Dwain Peñaloza Attending Unavailable Herbert Peters MD Primary Care Provider HERBERT PETERS Primary Care Unavailable TOMAS RAJAN Referring Unavailable Mason Membreno MD Unavailable Mason Membreno MD Primary Care Provider ZAKIAJUAN SWANINDA Attending Unavailable TOMAS RAJAN Attending Unavailable TOMAS RAJAN Attending Unavailable MASON MEMBRENO Attending Unavailable KYRIE CARNEY Attending Unavailable MASON MEMBRENO Attending Unavailable KYRIE CARNEY Attending Unavailable MASON MEMBRENO Attending Unavailable CHRIS ARDON Attending Unavailable MASON MEMBRENO Attending Unavailable KYRIE CARNEY Attending Unavailable KYRIE CARNEY Attending Unavailable MASON MEMBRENO Attending Unavailable MASON MEMBRENO Attending Unavailable KYRIE CARNEY Attending Unavailable SOPHIA ZALDIVAR Attending Unavailable MASON MEMBRENO Attending Unavailable SHER WHITE Attending Unavailable MASON MEMBRENO Attending Unavailable KYRIE CARNEY Attending Unavailable Allergies Allergy Classification Reported Allergen(s) Allergy Type Date of Onset Reaction(s) Facility (20 sources) Isosorbide Dinitrate Drug Allergy 2 shortness of breath, Other [facility] Work Phone: (3 sources) Isosorbide; Translations: [isosorbide] Drug Allergy 2 Hypertensive disorder, systemic arterial (disorder) [facility] (2 sources) Isosorbide; Translations: [ISOSORBIDE MONONITRATE] Drug Allergy 2 [facility] (2 sources) Aspartame Drug Allergy 4 Diarrhea [facility] Rep[facility] (1 source) Isosorbide Drug Allergy 4 [facility] (20 sources) Aspartame Drug Allergy 4 Diarrhea [facility] Medications Current Medications Medication Drug Class(es) Dates Sig (Normalized) Sig (Original) 0.25 MG, 0.5 MG Dose 3 ML semaglutide 0.68 MG/ML Pen Injector [Ozempic] (4 sources) Ozempic (0.25 or 0.5 MG/DOSE) 2 MG/3ML as directed Subcutaneous Active acetaminophen 325 mg / oxyCODONE hydrochloride 5 mg oral tablet (5 sources) Opioid Agonist Start: 04-17-2024 take 1 tablet by mouth every eight hours as needed oxyCODONE-acetamin ophen (Percocet) 5-325 MG tablet Take 1 tablet by mouth every 8 (eight) hours if needed 04/17/2024 Active albuterol 0.83 mg/ml inhalation solution (20 sources) beta2-Adrenergic Agonist Start: 02-24-2023 take 2.5 mg by inhalation twice daily Albuterol Sulfate Active 2.5 MG INHALATION Twice daily February 24, 2023 12:00am Start: 02-22-2023 End: 02-22-2024 albuterol (2.5 MG/3ML) 0.083 % nebulizer solution Indications: COVID-19 Take 3 mL (2.5 mg) by nebulization every 4 (four) hours if needed for wheezing. 75 mL 3 02/22/2023 Active Start: 04-11-2019 take 2 puff(s) by in halation every six hours as needed Albuterol Sulfate HFA 108 (90 Base) MCG/ACT 2 puffs as needed Inhalation every 6 hrs Apr, Not-Taking Aluminum Hydroxide / Magnesium Hydroxide / Simethicone (1 source) Mylanta Active amLODIPine 5 mg oral tablet (17 sources) Dihydropyridine Calcium Channel Cristian Start: take 5 mg by mouth once daily Amlodipine Active 5 MG PO Daily July 12, 2023 1:00am Start: 02-18-2023 End: 02-25-2023 take 2.5 mg by mouth once daily Amlodipine Discontinue d 2.5 MG PO Daily February 18, 2023 12:00am February 25, 2023 1:55am Start: 02-16-2013 End: 02-18-2023 take 5 mg by mouth once daily Amlodipine Discontinued 5 MG PO Daily February 11, 2017 12:00am February 18, 2023 9:40am take 1 tablet by silvana th twice daily amLODIPine (NORVASC) 5 MG tablet Take 5 mg by mouth 2 times daily 0 Active Amlodipine & Diet Manage Prod (3 sources) Amlodipine & t Manage Prod Active amylase 792475 unt / lipase 12132 unt / protease 186183 unt delayed release oral capsule (1 source) Start: 3 take 2 capsules by mouth three times daily at mealtime Zenpep [id number] UNIT 2 capsules Orally three times a day with meals for 30 days PLEASE CHECK ALLERGIES Feb, Active Amylases / Endopeptidases / Lipase (2 sources) Creon Active apixaban 5 mg oral tablet (20 sources) Factor Xa Inhibitor Start: 2 take 1 tablet by mouth twice daily Apixaban (Eliquis) 5 mg Tablet Active 5 MG PO Twice daily February 18, 2023 12:00am take 1 tablet by silvana th every twelve hours apixaban (Eliquis) 5 MG tablet 5 mg ever y 12 (twelve) hours. Active Eliquis Active Ascorbic Acid (20 sources) Vitamin C Start: 01-27-2024 take 1 g by mouth once daily Ascorbic Acid (Vitamin C) Active 1 GM PO Daily January 27, 2024 12:00am take 1 tablet by mouth once cici y Ascorbic Acid (Vitamin C) 500 MG capsule Take 1 tablet by mouth 1 (one) time each day. Active take 1 tablet by silvana th every twenty-four hours Vitamin C 1000 MG 1 tablet Orally Once a day Active aspirin 81 mg oral tablet (12 sources) Platelet Aggregation Inhibitor, Nonsteroidal Anti-inflammatory Drug Start: 06-13-2019 take 81 mg by mouth twice daily aspirin 81 mg, Oral, BID, Refills(s) 0 Start Date: 06/13/19 Status: Ordered Start: 02-11-2017 End: 02-18-2023 take 81 mg by mouth once daily Aspirin Discontinued 81 MG PO Daily 0 February 11, 2017 12:00am February 18, 2023 9:43am Baby Aspirin Not -Taking Baby Aspirin Act mike take 1 tablet by silvana th once daily aspirin 500 MG EC tablet Take 500 mg by mouth daily 0 Active atorvastatin 80 mg oral tablet (20 sources) HMG-CoA Reductase Inhibitor Start: 07-12-2023 take 80 mg by mouth once daily Atorvastatin Active 80 MG PO Daily July 12, 2023 1:00am Start: 11-24-2022 take 1 tablet by silvana th in the morning atorvastatin (Lipitor) 40 MG tablet Indications: Routine general medical examination at health care facility Take 1 tablet (40 mg) by mouth in the morning. 90 tablet 3 11/24/2022 Active Start: 06-13-2019 take 40 mg by mouth every other day atorvastatin 40 mg, Oral, Every other day, Refills(s) 0 Start Date: 06/13/19 Status: Ordered Start: 02-11-2017 End: 02-25-2023 take 40 mg by mouth once daily in the evening Atorvastatin Discontinued 40 MG PO Every evening 30 February 11, 2017 12:00am February 25, 2023 1:56am Atorvastatin María cium Active carvedilol 12.5 mg oral tablet (19 sources) alpha-Adrenergic Cristian, beta-Adrenergic Cristian Start: 07-12-2023 take 12.5 mg by mouth twice daily at mealtime Carvedilol Active 12.5 MG PO Twice daily July 12, 2023 1:00am must administer with a meal/food Start: 05-23-2023 End: 12-26-2023 take 0.5 tablet by mouth once carvedilol (Coreg) 25 MG tablet Indications: Primary hypertension (CMS/HCC) Take 0.5 tablets (12.5 mg) by mouth every 12 (twelve) hours 100 tablet 3 05/23/2023 12/26/2023 Discontinued Start: 06-13-2019 carvedilol Ora l, Refills(s) 0 Start Date: 06/13/19 Status: Ordered Start: 02-11-2017 End: 02-25-2023 take 12.5 mg by mouth twice daily at mealtime Carvedilol Discontinued 12.5 MG PO Twice daily with meals 60 February 11, 2017 12:00am February 25, 2023 1:56am Start: 02-10-2017 End: 02-11-2017 take 6.25 mg by mouth twice daily Carvedilol Discontinued 6.25 MG PO Twice daily February 10, 2017 12:00am February 11, 2017 12:05pm Carvedilol Activ e cefdinir 300 mg oral capsule (8 sources) Cephalosporin Antibacterial Start: 02-02-2024 End: 02-12-2024 take 1 capsule by mouth in the morning cefdinir (Omnicef) 300 MG capsule Indications: Acute bronchitis, unspecified organism Take 1 capsule (300 mg) by mouth in the morning and 1 capsule (300 mg) before bedtime. Do all this for 10 days. 20 capsule 02/02/2024 02/12/2024 Active chlorthalidone 12.5 mg oral tablet (4 sources) Thiazide-like Diuretic Start: 08-18-2021 take 12.5 mg by mouth once daily chlorthalidone 12.5 mg, Oral, Daily Start Date: 08/18/21 Status: Ordered Chlorthalidone A ctive cholecalciferol 0.05 mg oral capsule (6 sources) Vitamin D Start: 01-27-2024 take 2000 [IU] by mouth once daily Cholecalciferol (Vitamin D3) Active 2000 UNIT PO Daily January 27, 2024 12:00am take 1 capsule by mo uth every twenty-four hours Vitamin D3 50 MCG (1999 UT) 1 capsule Orally Once a day Active take 1 capsule by mouth once jarod ly Cholecalciferol (VITAMIN D3) 2000 units CAPS Take 1 capsule by mouth daily 0 Active ciprofloxacin 500 mg oral tablet (2 sources) Quinolone Antimicrobial Start: 02-07-2013 CIPROFLOXACIN 500 mg tablet 02/07/2013 Active citalopram 20 mg oral tablet (20 sources) Serotonin Reuptake Inhibitor Start: 06-13-2019 take 1 tablet by mouth in the morning citalopram (CeleXA) 20 MG tablet Indications: Routine general medical examination at health care facility Take 1 tablet (20 mg) by mouth in the morning. 90 tablet 3 11/24/2022 Active Citalopram Viola bromide Active take 1 tablet by mouth once cici y citalopram (CELEXA) 40 MG tablet Take 40 mg by mouth daily 0 Active clopidogrel 75 mg oral tablet (12 sources) P2Y12 Platelet Inhibitor Start: 02-11-2017 take 75 mg by mouth once daily Clopidogrel Active 75 MG PO Daily February 11, 2017 12:00am Plavix Active colestipol hydrochloride 1000 mg oral tablet (1 source) Bile Acid Sequestrant Start: 04-12-2023 take 1 tablet by mouth every eight hours Colestipol HCl 1 GM 1 tablet Orally three times a day for 30 days Apr, Active dextromethorphan hydrobromide 1.5 mg/ml / pyrilamine maleate 1.5 mg/ml oral solution (13 sources) Uncompetitive D-tzrjta-X-asparta te Receptor Antagonist, Sigma-1 Agonist Start: 02-02-2024 End: 02-12-2024 take 10 mL by mouth four times daily as needed for cough and congestion Dextromethorpha n-Pyrilamine ([place] DM) 7.5-7.5 MG/5ML liquid Indications: Acute cough Take 10 mL by mouth 4 (four) times a day as needed (cough and congestion) for up to 10 days 473 mL 02/02/2024 02/12/2024 Active Start: 06-16-2023 take 10 mL by mouth every eight hours [place] DM 7.5-7.5 MG/5ML 10 mL Orally every 8 hours for 5 days Jun, Active Start: 02-24-2023 End: 07-12-2023 take 1 mL by mouth every eight hours Pyrilamine-Dextromethorphan ([place] Dm) 7.5-7.5 mg/5 mL liquid Discontinued 10 ML PO Every 8 hours February 24, 2023 12:00am July 12, 2023 2:49pm Start: 02-22-2023 take 10 mL by mouth every eight hours [place] DM 7.5-7.5 MG/5ML 10 mL Orally every 8 hours for 5 days Feb, Active empagliflozin 25 mg oral tablet (20 sources) Sodium-Glucose Cotransporter 2 Inhibitor Start: 02-18-2023 take 12.5 mg by mouth once daily Empagliflozin Active 12.5 MG PO Daily February 18, 2023 12:00am Start: 04-14-2022 take 1 tablet by silvana th once daily empagliflozin (Jardiance) 25 MG Indications: Routine general medical examination at health care facility Take 1 tablet (25 mg) by mouth 1 (one) time each day at the same time. 90 tablet 3 11/24/2022 Active Empagliflozin Ac tive ergocalciferol 1.25 mg oral capsule (20 sources) Provitamin D2 Compound take 1 capsule by mouth every week ergocalciferol (Vitamin D-2) 1.25 MG (85096 UT) capsule Take 1 capsule by mouth 1 (one) time per week. Active ferrous sulfate 325 mg oral tablet (4 sources) Start: 01-27-20 take 325 mg by mouth three times weekly Ferrous Sulfate Active 325 MG PO 3 Times a week January 27, 2024 12:00am Start: 07-12-2023 End: 01-27-2024 take 324 mg by mouth once daily Ferrous Sulfate Discon tinued 324 MG PO Daily July 12, 2023 1:00am January 27, 2024 5:49pm take 1 tablet by silvana th three times weekly Ferrous Sulfate 325 (65 Fe) MG 1 tablet Orally Three times a Week Active finasteride 5 mg oral tablet (20 sources) 5-alpha Reductase Inhibitor Start: 04-14-2022 take 5 mg by mouth once daily Finasteride Active 5 MG PO Daily July 12, 2023 1:00am Start: 06-13-2019 finasteride Or al, Daily, Refills(s) 0 Start Date: 06/13/19 Status: Ordered Finasteride Acti ve fluticasone propionate 0.05 mg/actuat metered dose nasal spray (1 source) Corticosteroid Start: 06-16-2023 take 1 spray(s) nasal route once daily Flonase Allergy Relief 50 MCG/ACT 1 spray in each nostril Nasally Once a day for 14 day(s) Jun, Active gabapentin 400 mg oral capsule (20 sources) Anti-epileptic Agent Start: 02-07-2024 gabapentin (Neurontin) 400 MG capsule Indications: Neurogenic pain 1 cap every evening and 1 cap at bedtime 60 capsule 11 02/07/2024 Active Start: 01-27-2024 take 300 mg by mouth twice jarod ly Gabapentin Active 300 MG PO Twice daily January 27, 2024 5:49pm Start: 02-10-2017 End: 02-07-2024 gabapentin (Neurontin) 300 M G capsule Indications: Neurogenic pain 1 cap every evening and 1 cap at bedtime 60 capsule 5 02/08/2023 Active take 1 tablet by silvana th every twenty-four hours Gabapentin 600 MG 1 tablet Orally Once a day Active Gabapentin Activ e guaiFENesin (1 source) Mucinex Active hydroCHLOROthiazide 12.5 mg / olmesartan medoxomil 40 mg oral tablet (2 sources) Thiazide Diuretic, Angiotensin 2 Receptor Cristian Start: 013 take 1 tablet by mouth once daily olmesartan-hydrochl orothiazide 40-12.5 mg per tablet Take 1 tablet by mouth once daily. 0 02/16/2013 Active Insulin Degludec (TRESIBA) 100 UNIT/ML SOLN (1 source) Insulin Degludec (TRESIBA) 100 UNIT/ML SOLN Inject 93 Units into the skin daily 0 Active 3 ml insulin glargine 100 unt/ml pen injector (20 sources) Insulin Analog Start: Lantus Solostar Pen 100 units/mL subcutaneous solution SubCutaneous, Daily Start Date: 08/18/21 Status: Ordered Start: 08-18-2021 Lantus Solosta r Pen 100 units/mL subcutaneous solution SubCutaneous, Daily Start Date: 08/18/21 Status: Ordered Start: 02-16-2013 inject 100 [IU] by s ubcutaneous injection once daily at bedtime insulin glargine (LANTUS) 100 unit/mL injection Inject 100 Units subcutaneously daily at bedtime. 0 02/16/2013 Active insulin glargine (Lantus SoloStar) 100 UNIT/ML pen Inject 15 Units under the skin in the morning. Active insulin glargine (Lantus SoloStar) 100 UNIT/ML pen Inject 20 Units under the skin in the morning. Active Insulin Glargine 100 UNIT/ML as directed Subcutaneous Active Insulin Glargine (Lantus U-100 Insulin) 100 unit/mL Solution (3 sources) Start: 02-18-2023 inject 20 [IU] by subcutaneous injection once daily in the morning Insulin Glargine (Lantus U-100 Insulin) 100 unit/mL Solution Active 20 UNIT SUBCUT Every morning February 18, 2023 12:00am Start: 02-18-2023 inject 60 [IU] by brewer bcutaneous injection once daily in the morning Insulin Glargine (Lantus U-100 Insulin) 100 unit/mL Solution Active 60 UNIT SUBCUT Every morning February 18, 2023 12:00am insulin aspart, human 100 unt/ml injectable solution (5 sources) Insulin Analog Start: 02-16-2013 insulin aspart (NOVOLOG) 100 unit/mL Soln Inject subcutaneously daily with breakfast. 0 02/16/2013 Active NovoLOG Active insulin aspart ( NOVOLOG) 100 UNIT/ML injection vial Inject 1 Units into the skin 3 times daily (before meals) Sliding scale 0 Active Lactase (4 sources) Lactaid Active take 1 tablet by mouth once cici y Lactaid 3000 UNIT 1 tablet with first bite of dairy - containing food Orally Once a day Active lansoprazole 30 mg delayed release oral capsule (2 sources) Proton Pump Inhibitor Start: 02-16-2013 take 1 capsule by mouth once daily lansoprazole (PREVACID) 30 mg capsule Take 1 capsule by mouth once daily. 0 02/16/2013 Active liraglutide (9 sources) GLP-1 Receptor Agonist Start: 12-17-2019 inject 1.8 mg by subcutaneous injection once daily Victoza 1.8 mg, SubCutaneous, Daily, Refills(s) 0 Start Date: 12/17/19 Status: Ordered Start: 02-10-2017 End: 02-18-2023 Liraglutide (Victoza 2-Alexei) 0.6 mg/0.1 mL (18 mg/3 mL) Pen Injector Discontinued 1.8 UNITS SUBCUT Every morning February 10, 2017 12:00am February 18, 2023 9:42am Liraglutide Acti ve Victoza Active Liraglutide (ISMA TOZA) 18 MG/3ML SOPN SC injection Inject 1.8 mg into the skin daily 0 Active lisinopril 10 mg oral tablet (20 sources) Angiotensin Converting Enzyme Inhibitor Start: 10-19-2023 End: 10-18-2024 take 1 tablet by mouth once daily lisinopril 10 MG tablet Take 10 mg by mouth Daily 02/16/2024 Active Start: 10-27-2022 End: 01-27-2024 take 20 mg by mouth once daily Lisinopril Discontinued 20 MG PO Daily February 18, 2023 12:00am January 27, 2024 5:50pm Start: 08-18-2021 take 1 tablet by silvana th once daily lisinopril 10 mg Tab 10 mg = 1 tab(s), Oral, Daily Start Date: 08/18/21 Status: Ordered Lisinopril Activ e mecobalamin 5 mg disintegrating oral tablet (1 source) Start: 01-27-2024 take 5000 ug by mouth two times weekly Mecobalamin (Vitamin B12) Active 5000 MCG PO .twice a week January 27, 2024 12:00am metFORMIN hydrochloride 500 mg oral tablet (2 sources) Biguanide Start: 02-16-2013 take 2 tablets by mouth twice daily metFORMIN 500 mg tablet Take 2 tablets by mouth twice daily. 0 02/16/2013 Active methocarbamol 750 mg oral tablet (8 sources) Muscle Relaxant Start: 08-18-2021 take 1 tablet by mouth three times daily methocarbamol 750 mg Tab 750 mg = 1 tab(s), Oral, TID Start Date: 08/18/21 Status: Ordered Methocarbamol No t-Taking Methocarbamol Ac tive 24 hr metoprolol succinate 50 mg extended release oral tablet (20 sources) beta-Adrenergic Cristian Start: 02-06-2024 End: 02-05-2025 take 1 tablet by mouth every twenty-four hours in the morning metoprolol succinate XL (Toprol-XL) 50 MG 24 hr tablet Indications: Primary hypertension (CMS/HCC) Take 1 tablet (50 mg) by mouth in the morning and 1 tablet (50 mg) before bedtime. Do not crush or chew.. 02/06/2024 02/05/2025 Active Start: 01-27-2024 take 50 mg by mouth once daily Metoprolol Succinate Active 50 MG PO Daily January 27, 2024 12:00am Start: 01-11-2024 End: 01-10-2025 take 1 tablet by mouth once daily metoprolol succinate XL (Toprol-XL) 50 MG 24 hr tablet Indications: Primary hypertension (CMS/HCC) Take 1 tablet (50 mg) by mouth Daily Do not crush or chew. 30 tablet 11 01/11/2024 02/06/2024 Discontinued (Reorder) Start: 12-26-2023 End: 12-25-2024 take 1 tablet by mouth once daily metoprolol succinate XL (Toprol-XL) 100 MG 24 hr tablet Indications: Hypertrophic cardiomyopathy (CMS/HCC) Take 1 tablet (100 mg) by mouth Daily Do not crush or chew. 30 tablet 11 12/26/2023 12/25/2024 Active nebivolol 20 mg oral tablet (2 sources) Start: 02-16-2013 nebivolol (BYS TOLIC) 20 mg Tab Take by mouth once daily. 0 02/16/2013 Active Nitroglycerin (20 sources) Nitrate Vasodilator Start: 10-27-2022 nitroglyce rin Start Date: 10/27/22 Status: Ordered Start: 02-11-2017 End: 02-18-2023 Nitroglycerin Discontinued 0 .4 MG SUBLINGUAL Q5M 30 February 11, 2017 12:00am February 18, 2023 9:44am Nitroglycerin Ac tive Ozempic (1 source) Ozempic Active ozempic (0.25 or 0.5 mg/dose) 2 mg/3ml solution pen-injector (1 source) Ozempic (0.25 or 0.5 MG/DOSE) 2 MG/3ML as directed Subcutaneous Active pantoprazole 40 mg delayed release oral tablet (20 sources) Proton Pump Inhibitor Start: 02-29-20 End: 03-07-20 take 1 tablet by mouth in the morning pantoprazole (Protonix) 40 MG EC tablet Indications: Gastrointestinal hemorrhage, unspecified gastrointestinal hemorrhage type Take 1 tablet (40 mg) by mouth in the morning and at noon. Do not crush, chew, or split. 180 tablet 3 03/08/2023 Active Start: 02-18-2023 End: 02-28-2023 take 40 mg by mouth once daily Pantoprazole Discontinu ed 40 MG PO Daily February 18, 2023 12:00am February 28, 2023 12:18pm Start: 08-18-2021 take 1 tablet by silvana th once daily Pantoprazole [address] Tab 20 mg = 1 tab(s), Oral, Daily Start Date: 08/18/21 Status: Ordered Pantoprazole Sod ium Active prednisoLONE acetate 10 mg/ml ophthalmic suspension (5 sources) Corticosteroid Start: 06-08-2024 prednisoLONE acetate (Pred-Forte) 1 % ophthalmic suspension Administer 1 drop into the right eye in the morning and 1 drop at noon and 1 drop in the evening and 1 drop before bedtime. 06/08/2024 Active 12 hr ranolazine 500 mg extended release oral tablet (20 sources) Anti-anginal Start: 10-27-2022 take 500 mg by mouth twice daily Ranolazine Active 500 MG PO Twice daily February 18, 2023 12:00am take 1 tablet by silvana th every twelve hours in the morning ranolazine (Ranexa) 500 MG 12 hr tablet Take 500 mg by mouth in the morning and 500 mg before bedtime. Active Ozempic (20 sources) Start: 10-27-2022 inject 0.5 mg by subcutaneous injection every week Ozempic 0.5 mg, SubCutaneous, qWeek Start Date: 10/27/22 Status: Ordered semaglutide (Oze mpic, 0.25 or 0.5 MG/DOSE,) 2 MG/1.5ML solution pen-injector Inject under the skin 1 (one) time per week. Active Semaglutide (3 sources) Start: 02-18-2023 Semaglutide (O zempic) 0.25 mg or 0.5 mg (2 mg/3 mL) Pen Injector Active 0.5 MG SUBCUT every week February 18, 2023 12:00am tuesday Start: 02-18-2023 Semaglutide (O zempic) 0.25 mg or 0.5 mg (2 mg/3 mL) Pen Injector Active 0.5 MG SUBCUT every week February 18, 2023 12:00am spironolactone 25 mg oral tablet (20 sources) Aldosterone Antagonist Start: 09-07-2023 spironolactone (Aldactone) 25 MG tablet Take 12.5 mg by mouth Daily 09/07/2023 Active tamsulosin hydrochloride 0.4 mg oral capsule (20 sources) alpha-Adrenergic Cristian Start: 06-13-2019 take 0.4 mg by mouth once daily Tamsulosin Active 0.4 MG PO Daily February 18, 2023 12:00am Tamsulosin HCl A ctive Tresiba FlexTouch (3 sources) Tresiba FlexTouc h Active vitamin b12 5 mg disintegrat ing oral tablet (4 sources) Vitamin B12 Vitamin B-12 500 0 MCG as directed Orally Active Vitamin B-12 500 0 MCG as directed Orally Active Vitamin B12 3000 MCG/ML as directed Sublingual Active Vitamin C 1000 MG (3 sources) take 1 tablet by silvana once daily Vitamin C 1000 MG 1 tablet Orally Once a day Active Vitamin D (2 sources) Vitamin D Active Completed/Discontinued Medications Medication Drug Class(es) Dates Sig (Normalized) Sig (Original) Albuterol Sulfate (2.5 MG/ 3 ML) 2.5 MG/3ML 0.083% Nebulization Solution (2 sources) Start: 04-11-2019 Albuterol Sulfate (2.5 MG/ 3 ML) 2.5 MG/3ML 0.083% Nebulization Solution 3ml Inhalation every 4 to 6 hours for 30 days Apr, Not-Taking bacillus coagulans [id number] unt / inulin 250 mg oral capsule (18 sources) Start: 06-30-2023 End: 02-07-2024 take 1 capsule by mouth twice daily at bedtime Bacillus Coagulans-Inulin (Probiotic) 1-250 BILLION-MG capsule Indications: Diarrhea, unspecified type TAKE 1 CAPSULE BY MOUTH TWICE DAILY (IN THE MORNING and BEFORE bedtime) 60 capsule 1 06/30/2023 02/07/2024 Discontinued benzonatate 100 mg oral capsule (2 sources) Non-narcotic Antitussive Start: 04-11-2019 take 1 capsule by mouth three times daily as needed Tessalon Perles 100 MG 1 capsule as needed Orally Three times a day for 7 days Apr, Not-Taking cephalexin 500 mg oral tablet (3 sources) Cephalosporin Antibacterial Start: 10-14-2023 End: 12-26-2023 take 1 tablet by mouth in the morning cephalexin (Keftab) 500 MG tablet Take 500 mg by mouth in the morning and 500 mg before bedtime. 10/14/2023 12/26/2023 Discontinued (Therapy completed) cloNIDine hydrochloride 0.2 mg oral tablet (6 sources) Central alpha-2 Adrenergic Agonist Start: 02-10-2017 End: 02-18-2023 take 0.2 mg by mouth three times daily Clonidine Hcl Discontinued 0.2 MG PO Three times daily February 10, 2017 12:00am February 18, 2023 9:44am cloNIDine HCl Ac tive take 1 tablet by mouth three doc es daily cloNIDine (CATAPRES) 0.1 MG tablet Take 0.1 mg by mouth 3 times daily 0 Active dextromethorphan hydrobromide 15 mg / guaiFENesin 400 mg / pseudoephedrine hydrochloride 60 mg oral tablet (2 sources) alpha-Adrenergic Agonist, Uncompetitive C-mvrdjc-K-aspartate Receptor Antagonist, Sigma-1 Agonist Start: 04-22-2019 take 1 tablet by mouth every four hours Capmist DM 60-15-400 MG 1 tablet as needed Orally every 4 hours for 10 days Apr, Not-Taking dicyclomine hydrochloride 10 mg oral capsule (3 sources) Anticholinergic Start: 10-11-2023 End: 12-26-2023 take 1 capsule by mouth four times daily as needed dicyclomine (Bentyl) 10 MG capsule Take 10 mg by mouth 4 (four) times a day as needed 10/11/2023 12/26/2023 Discontinued enalapril maleate 20 mg oral tablet (8 sources) Angiotensin Converting Enzyme Inhibitor Start: 02-16-2013 End: 10-13-2023 take 20 mg by mouth twice daily Enalapril Maleate Discontinued 20 MG PO Twice daily February 10, 2017 12:00am February 18, 2023 9:44am Enalapril Active Flecainide (5 sources) Antiarrhythmic Flecainide Aceta te Not-Taking FLUoxetine 20 mg oral capsule (3 sources) Serotonin Reuptake Inhibitor Start: 7 End: 3 take 20 mg by mouth once daily Fluoxetine Discontinued 20 MG PO Daily February 10, 2017 12:00am February 18, 2023 9:44am furosemide 20 mg oral tablet (6 sources) Loop Diuretic Start: 7 End: 3 take 20 mg by mouth once daily Furosemide Discontinued 20 MG PO Daily February 10, 2017 12:00am February 18, 2023 9:44am Lasix Active Insulin Aspart U-100 (Novolog U-100 Insulin Aspart) 100 unit/mL Solution (3 sources) Start: 02-10-2017 End: 02-18-2023 Insulin Aspart U-100 (Novolog U-100 Insulin Aspart) 100 unit/mL Solution Discontinued SOLUTION February 10, 2017 12:00am February 18, 2023 9:44am 3 ml insulin degludec 100 unt/ml pen injector (3 sources) Insulin Analog Start: 02-10-2017 End: 02-12-2017 Insulin Degludec (Tresiba Flextouch U-100) 100 unit/mL (3 mL) Insulin Pen Discontinued 93 UNITS SUBCUT Every evening February 10, 2017 12:00am February 12, 2017 1:06pm Insulin Degludec (Tresiba Flextouch U-100) 100 unit/mL (3 mL) Insulin Pen (3 sources) Start: 02-12-2017 End: 02-18-2023 Insulin Degludec (Tresiba Flextouch U-100) 100 unit/mL (3 mL) Insulin Pen Discontinued 93 UNIT SUBCUT Every evening 0 February 12, 2017 1:06pm February 18, 2023 9:41am Tfdidz-Mtjtipvd-F mylase (Zenpep) 40,000-126,000- 168,000 unit capsule,delayed release(DR/EC) (2 sources) Start: 02-24-2023 End: 07-12-2023 take [id number] capsules by mouth three times daily at mealtime Bvyopc-Jwcvakuo-Kja lase (Zenpep) 40,000-126,000- 168,000 unit capsule,delayed release(DR/EC) Discontinued 2 CAP PO 3 times per day with meals February 24, 2023 12:00am July 12, 2023 2:48pm Start: 02-24-2023 take [id number] ca psules by mouth three times daily at mealtime Nmofqc-Gynrpmfw-Hgmxbka (Zenpep) 40,000-126,000- 168,000 unit capsule,delayed release(DR/EC) Active 2 CAP PO 3 times per day with meals February 24, 2023 12:00am meloxicam 7.5 mg oral tablet (3 sources) Nonsteroidal Anti-inflammatory Drug Start: 02-10-2017 End: 02-11-2017 take 7.5 mg by mouth twice daily Meloxicam Discontinued 7.5 MG PO Twice daily February 10, 2017 12:00am February 11, 2017 12:04pm methylPREDNISolone 4 mg oral tablet (2 sources) Corticosteroid Start: 04-22-2019 Medrol (Alexei) 4 MG as directed Orally for 6 days Apr, Not-Taking omeprazole 20 mg delayed release oral capsule (4 sources) Proton Pump Inhibitor Start: 02-10-2017 End: 02-18-2023 take 20 mg by mouth once daily Omeprazole Discontinued 20 MG PO Daily before supper February 10, 2017 12:00am February 18, 2023 9:43am predniSONE 20 mg oral tablet (4 sources) Start: 02-24-2023 End: 07-12-2023 take 20 mg by mouth once daily Prednisone Discontinued 20 MG PO Daily February 24, 2023 12:00am July 12, 2023 2:49pm Start: 02-22-2023 take 1 tablet by silvana th every twelve hours prednisone 20 MG 1 tablet Orally BID for 5 Feb, Active Problems Active Problems Problem Classification Problem Date Documented Date Episodic/Chronic Acquired foot deformities (20 sources) Acquired hallux valgus; Translations: [Hallux valgus (acquired), unspecified foot] Onset: 10-06-2022 10-06-2022 Chronic Acute bronchitis (2 sources) Acute bronchitis; Translations: [Acute bronchitis, unspecified] 02-02-2024 Episodic Acute myocardial infarction (20 sources) Myocardial infarction; Translations: [Non-ST elevation (NSTEMI) myocardial infarction] Onset: 06-30-2023 02-10-2017 Chronic Administrative/social admission (2 sources) Patient encounter status; Translations: [Other specified counseling] 02-27-2024 Episodic Anxiety disorders (20 sources) Anxiety disorder, unspecified; Translations: [Acute stress disorder] Onset: 02-17-2022 10-06-2022 Chronic Asthma (20 sources) Reactive airway disease; Translations: [Unspecified asthma, uncomplicated] Onset: 10-16-2020 10-06-2022 Chronic Cardiac dysrhythmias (20 sources) Unspecified atrial fibrillation; Translations: [Paroxysmal atrial fibrillation] Onset: 11-25-2021 10-06-2022 Chronic Cataract (20 sources) Nuclear sclerotic cataract; Translations: [Age-related nuclear cataract, unspecified eye] Onset: 01-19-2023 02-09-2023 Chronic Chronic kidney disease (20 sources) Chronic kidney disease, unspecified; Translations: [Chronic kidney disease, stage 4 (severe)] Onset: 11-25-2021 10-06-2022 Chronic Chronic kidney disease (1 source) Chronic kidney disease; Translations: [CHRONIC KIDNEY DISEASE STAGE 3A] Onset: 05-16-2022 Chronic obstructive pulmonary disease and bronchiectasis (8 sources) Simple chronic bronchitis; Translations: [Simple chronic bronchitis] Chronic Coronary atherosclerosis and other heart disease (20 sources) Old myocardial infarction; Translations: [Atherosclerotic heart disease of [place] coronary artery without angina pectoris] Onset: 09-11-2018 10-06-2022 Chronic Deficiency and other anemia (1 source) Other dietary vitamin B12 deficiency anemia; Translations: [OTH DIETARY VITAMIN B12 DEF ANEMIA] Onset: 09-02-2022 Episodic Diabetes mellitus with complications (20 sources) Type 2 diabetes mellitus with diabetic chronic kidney disease; Translations: [Type 2 diabetes mellitus with hyperglycemia] Onset: 06-13-2015 02-10-2017 Chronic Diabetes mellitus without complication (2 sources) Diabetes mellitus 06-13-2019 Chronic Diseases of white blood cells (20 sources) Leukocytosis; Translations: [Elevated white blood cell count, unspecified] Onset: 10-06-2022 10-06-2022 Chronic Disorders of lipid metabolism (20 sources) Hyperlipidemia, unspecified; Translations: [Hypertriglyceridemia] Onset: 09-02-2022 02-10-2017 Chronic Diverticulosis and diverticulitis (20 sources) Diverticulum of large intestine without hemorrhage; Translations: [Diverticulosis of large intestine without perforation or abscess without bleeding] Onset: 03-29-2018 Resolved: 03-29-2023 10-06-2022 Chronic Epilepsy; convulsions (1 source) Epilepsy, unspecified, not intractable, without status epilepticus; Translations: [EPILEPSY UNS NOT INTRACT W/O SE] Onset: 09-02-2022 Chronic Esophageal disorders (20 sources) Gastroesophageal reflux disease; Translations: [Gastro-esophageal reflux disease without esophagitis] Onset: 10-06-2022 Chronic Essential hypertension (20 sources) Essential (primary) hypertension; Translations: [Hypertensive disorder] Onset: 09-11-2018 06-13-2019 Chronic Genitourinary symptoms and ill-defined conditions (20 sources) Post-micturition incontinence ; Translations: [Urge incontinence of urine] Onset: 02-09-2023 07-18-2019 Chronic Headache; including migraine (20 sources) Cluster headache; Translations: [Migraine] Onset: 10-06-2022 06-13-2019 Chronic Headache; including migraine (4 sources) Headache; including migraine; Translations: [HEADACHE UNSPECIFIED] Onset: 08-27-2022 Heart valve disorders (20 sources) Aortic valve regurgitation; Translations: [Nonrheumatic aortic (valve) insufficiency] Onset: 10-06-2022 10-06-2022 Chronic Hyperplasia of prostate (20 sources) Benign prostatic hypertrophy with outflow obstruction; Translations: [Benign prostatic hyperplasia with lower urinary tract symptoms] Onset: 05-16-2019 Chronic Hypertension with complications and secondary hypertension (20 sources) Hypertensive chronic kidney disease with stage 1 through stage 4 chronic kidney disease, or unspecified chronic kidney disease; Translations: [Hypertensive urgency ] Onset: 09-14-2022 02-10-2017 Chronic Influenza (8 sources) Influenza; Translations: [Influenza B] Episodic Intestinal infection (1 source) Viral intestinal infection, unspecified; Translations: [VIRAL INTESTINAL INFECTION UNSPEC] Onset: 09-14-2022 Episodic Mood disorders (20 sources) Depressive disorder; Translations: [Depressive disorder] Onset: 05-04-2017 10-06-2022 Chronic Mycoses (6 sources) Pain in toe; Translations: [Tinea unguium] 04-15-2024 Episodic Nausea and vomiting (1 source) Nausea Episodic Nutritional deficiencies (20 sources) Vitamin D deficiency; Translations: [Vitamin D deficiency, unspecified] Onset: 01-19-2023 02-09-2023 Chronic Osteoarthritis (20 sources) Arthritis; Translations: [Osteoarthritis of right foot] Onset: 03-08-2016 06-13-2019 Chronic Other acquired deformities (20 sources) Contracture of joint of right ankle; Translations: [Contracture, right ankle] Onset: 10-06-2022 10-06-2022 Chronic Other aftercare (1 source) half-way (current) use of insulin; Translations: [PENITENTIARY CURRENT USE OF INSULIN] Onset: 09-14-2022 Episodic Other aftercare (1 source) Other intermediate manager (current) drug therapy; Translations: [OTH TOOLS AND PARTS ATTENDANT CURRENT DRUG THERAPY] Onset: 09-14-2022 Episodic Other and ill-defined heart disease (2 sources) Heart disease 06-13-2019 Chronic Other and ill-defined heart disease (2 sources) Cardiomegaly; Translations: [Cardiomegaly] Onset: 07-11-2024 Chronic Other and unspecified benign neoplasm (6 sources) History of polyp of colon; Translations: [Personal history of colonic polyps] Episodic Other and unspecified benign neoplasm (1 source) Personal history of colonic polyps Episodic Other and unspecified benign neoplasm (2 sources) Benign neoplasm of stomach; Translations: [Polyp of stomach and duodenum] Episodic Other and unspecified benign neoplasm (1 source) Polyp of stomach and duodenum Episodic Other connective tissue disease (1 source) Myalgia, unspecified site; Translations: [MYALGIA UNSPECIFIED SITE] Onset: 09-02-2022 Episodic Other connective tissue disease (4 sources) Spontaneous rupture of extensor tendons, right ankle and foot; Translations: [SPONT RUPT EXTENSOR TEND RT ANK FT] Onset: 07-06-2022 Episodic Other connective tissue disease (2 sources) Neurogenic pain; Translations: [Neuralgia and neuritis, unspecified] 02-07-2024 Episodic Other connective tissue disease (6 sources) Plantar fasciitis; Translations: [Plantar fascial fibromatosis] 04-15-2024 Episodic Other diseases of kidney and ureters (1 source) Acquired renal cyst without neoplastic change; Translations: [Cyst of kidney, acquired] Onset: 10-27-2022 Episodic Other diseases of kidney and ureters (3 sources) Renal impairment; Translations: [Disorder of kidney and ureter, unspecified] 02-10-2017 Episodic Other disorders of stomach and duodenum (1 source) Functional dyspepsia Episodic Other ear and sense organ disorders (20 sources) Sensorineural hearing loss, bilateral; Translations: [Sensorineural hearing loss, bilateral] Onset: 01-19-2023 02-09-2023 Chronic Other endocrine disorders (20 sources) Hypoglycemia; Translations: [Type 2 diabetes mellitus with hypoglycemia without coma] Onset: 10-06-2022 10-06-2022 Chronic Other eye disorders (20 sources) Vitreous degeneration of left eye; Translations: [Vitreous degeneration, left eye] Onset: 06-30-2023 10-10-2023 Chronic Other hereditary and degenerative nervous system conditions (20 sources) Essential tremor; Translations: [Essential tremor] Onset: 10-06-2022 10-06-2022 Chronic Other hereditary and degenerative nervous system conditions (20 sources) Restless legs; Translations: [Restless legs syndrome] Onset: 10-06-2022 10-06-2022 Chronic Other lower respiratory disease (2 sources) Cough; Translations: [Acute cough] 02-02-2024 Episodic Other male genital disorders (2 sources) Impotence 06-13-2019 Chronic Other nervous system disorders (1 source) Polyneuropathy, unspecified; Translations: [POLYNEUROPATHY UNSPECIFIED] Onset: 09-02-2022 Chronic Other nervous system disorders (1 source) Hereditary and idiopathic neuropathy, unspecified; Translations: [HEREDITARY IDIOPATH NEUROPATHY UNS] Onset: 09-02-2022 Chronic Other nervous system disorders (20 sources) Polyneuropathy; Translations: [Polyneuropathy, unspecified] Onset: 10-06-2022 10-06-2022 Chronic Other nutritional; endocrine; and metabolic disorders (20 sources) Extreme obesity with alveolar hypoventilation; Translations: [Morbid (severe) obesity with alveolar hypoventilation] Onset: 10-06-2022 10-06-2022 Chronic Other nutritional; endocrine; and metabolic disorders (20 sources) Body mass index 30+ - obesity; Translations: [Obesity, unspecified] Onset: 12-13-2018 02-09-2023 Chronic Other screening for suspected conditions (not mental disorders or infectious disease) (20 sources) MRI scan abnormal; Translations: [Abnormal findings on diagnostic imaging of other specified body structures] Onset: 04-21-2022 12-05-2019 Chronic Other upper respiratory disease (2 sources) Other seasonal allergic rhinitis Onset: 10-16-2021 Resolved: 10-16-2021 Chronic Pancreatic disorders (not diabetes) (20 sources) Idiopathic chronic pancreatitis; Translations: [Other chronic pancreatitis] Onset: 03-16-2023 03-16-2023 Chronic Pancreatic disorders (not diabetes) (1 source) Exocrine pancreatic insufficiency Episodic Marleen-; endo-; and myocarditis; cardiomyopathy (except that caused by tuberculosis or sexually transmitted disease) (20 sources) Other hypertrophic cardiomyopathy; Translations: [Hypertrophic cardiomyopathy] Onset: 12-26-2023 12-26-2023 Chronic Peripheral and visceral atherosclerosis (20 sources) Generalized atherosclerosis; Translations: [Arteriosclerosis of renal artery] Onset: 06-16-2016 03-29-2023 Chronic Residual codes; unclassified (1 source) Sleep apnea, unspecified; Translations: [SLEEP APNEA UNSPECIFIED] Onset: 02-17-2022 Chronic Residual codes; unclassified (20 sources) Obstructive sleep apnea syndrome; Translations: [Obstructive sleep apnea (adult) (pediatric)] Onset: 10-06-2022 02-10-2017 Chronic Residual codes; unclassified (20 sources) Sleep apnea; Translations: [Sleep apnea, unspecified] Onset: 10-06-2022 10-06-2022 Chronic Spondylosis; intervertebral disc disorders; other back problems (20 sources) Inflammation of sacroiliac joint; Translations: [Sacroiliitis, not elsewhere classified] Onset: 10-06-2022 10-06-2022 Chronic Unclassified (2 sources) Drug therapy finding 07-18-2019 Unclassified (1 source) CONTACT W/AND (SUSP) EXPOS COVID-19; Translations: [CONTACT W/AND (SUSP) EXPOS COVID-19] Onset: 02-17-2022 Past or Other Problems Problem Classification Problem Date Documented Da te Episodic/Chronic Abdominal pain (20 sources) Flank pain; Translations: [Left lower quadrant pain] Onset: 02-23-2013 12-05-2019 Episodic Acute and unspecified renal failure (1 source) Acute kidney failure, unspecified; Translations: [ACUTE KIDNEY FAILURE UNSPECIFIED] Onset: 2021 Episodic Blindness and vision defects (20 sources) Hypermetropia; Translations: [Hypermetropia, unspecified eye] Onset: 01-19-2023 02-09-2023 Episodic Complications of surgical procedures or medical care (1 source) Hypotension due to drugs; Translations: [HYPOTENSION DUE TO DRUGS] Onset: 11-25-2021 Episodic Conditions associated with dizziness or vertigo (3 sources) Dizziness and giddiness; Translations: [DIZZINESS AND GIDDINESS] Onset: 11-19-2021 Episodic Coronary atherosclerosis and other heart disease (4 sources) Presence of coronary angioplasty implant and graft; Translations: [PRESENCE COR ANGPLSTY IMPLANT AND GRAFT] Onset: 10-28-2021 Episodic Diabetes mellitus without complication (20 sources) Glycosuria; Translations: [Glycosuria] Onset: 10-27-2022 Episodic E Codes: Adverse effects of medical drugs (1 source) Adverse effect of coronary vasodilators, initial encounter; Translations: [ADVRS EFF COR VASODILATORS INIT ENC] Onset: 11-25-2021 Episodic Gastrointestinal hemorrhage (20 sources) Melena; Translations: [Melena] Onset: 02-24-2023 02-25-2023 Episodic Genitourinary symptoms and ill-defined conditions (20 sources) Dysuria; Translations: [Inocencio hematuria] Onset: 04-21-2022 01-09-2020 Episodic Immunizations and screening for infectious disease (20 sources) Contact with and (suspected) exposure to other viral communicable diseases; Translations: [Encounter for screening for infections with a predominantly sexual mode of transmission] Onset: 10-16-2021 Resolved: 03-29-2023 Episodic Inflammatory conditions of male genital organs (1 source) Inflammatory disease of prostate, unspecified; Translations: [INFLAMMATORY DISEASE PROSTATE UNS] Onset: 02-17-2022 Episodic Nonspecific chest pain (9 sources) Other chest pain; Translations: [Chest pain, unspecified] Onset: 09-30-2021 Episodic Nutritional deficiencies (20 sources) Pyridoxine deficiency; Translations: [Cobalamin deficiency] Onset: 09-02-2022 12-07-2022 Episodic Other acquired deformities (20 sources) Deformity of metatarsal; Translations: [Unspecified acquired deformity of unspecified lower leg] Onset: 10-06-2022 10-06-2022 Episodic Other aftercare (1 source) half-way (current) use of aspirin; Translations: [PENITENTIARY CURRENT USE OF ASPIRIN] Onset: 11-25-2021 Episodic Other aftercare (1 source) termite exterminator (current) use of anticoagulants; Translations: [PENITENTIARY CURRNT USE ANTICOAGULANTS] Onset: 11-25-2021 Episodic Other aftercare (1 source) termite exterminator (current) use of antithrombotics/antip latelets; Translations: [PENITENTIARY ANTITHROMBOT/ANTIPLAT LETS] Onset: 11-25-2021 Episodic Other aftercare (20 sources) Long-term current use of insulin; Translations: [termite exterminator (current) use of insulin] Onset: 06-06-2015 02-09-2023 Episodic Other connective tissue disease (20 sources) H/O: osteoarthritis; Translations: [Personal history of other diseases of the musculoskeletal system and connective tissue] Onset: 01-19-2023 02-09-2023 Episodic Other connective tissue disease (2 sources) Pain of toes of bilateral feet; Translations: [Pain in right toe(s)] 01-08-2024 Episodic Other diseases of kidney and ureters (20 sources) Cyst of kidney; Translations: [Cyst of kidney, acquired] Onset: 11-17-2022 04-14-2022 Episodic Other diseases of veins and lymphatics (20 sources) Varicocele; Translations: [Scrotal varices] Onset: 10-27-2022 Episodic Other diseases of veins and lymphatics (20 sources) Peripheral venous insufficiency; Translations: [Venous insufficiency (chronic) (peripheral)] Onset: 10-06-2022 10-06-2022 Episodic Other disorders of stomach and duodenum (20 sources) Indigestion; Translations: [Functional dyspepsia] Onset: 10-06-2022 Resolved: 03-29-2023 03-29-2023 Episodic Other ear and sense organ disorders (20 sources) Tinnitus; Translations: [Tinnitus, unspecified ear] Onset: 01-19-2023 02-09-2023 Episodic Other ear and sense organ disorders (20 sources) Device status; Translations: [Encounter for fitting and adjustment of hearing aid] Onset: 02-09-2023 Resolved: 03-29-2023 03-29-2023 Episodic Other gastrointestinal disorders (20 sources) Diarrhea; Translations: [Diarrhea, unspecified] Onset: 10-10-2023 02-18-2023 Episodic Other gastrointestinal disorders (5 sources) Diarrhea, unspecified; Translations: [Diarrhea] Onset: 02-18-2023 Episodic Other gastrointestinal disorders (20 sources) Constipation; Translations: [Constipation, unspecified] Onset: 10-06-2022 10-06-2022 Episodic Other injuries and conditions due to external causes (20 sources) Injury of head; Translations: [Unspecified injury of head, initial encounter] Onset: 04-21-2022 06-13-2019 Episodic Other lower respiratory disease (4 sources) Other forms of dyspnea; Translations: [OTHER FORMS OF DYSPNEA] Onset: 09-24-2021 Episodic Other lower respiratory disease (20 sources) Dyspnea on exertion; Translations: [Other forms of dyspnea] Onset: 03-08-2016 02-09-2023 Episodic Other male genital disorders (20 sources) Atypical small acinar proliferation of prostate; Translations: [Atypical small acinar proliferation of prostate] Onset: 11-17-2022 12-05-2019 Episodic Other male genital disorders (4 sources) Left testicular pain; Translations: [LEFT TESTICULAR PAIN] Onset: 02-15-2022 Episodic Other male genital disorders (20 sources) Pain in testicle; Translations: [Testicular pain, unspecified] Onset: 11-17-2022 04-14-2022 Episodic Other nervous system disorders (20 sources) Tremor; Translations: [Tremor, unspecified] Onset: 01-19-2023 02-09-2023 Episodic Other screening for suspected conditions (not mental disorders or infectious disease) (20 sources) Raised prostate specific antigen; Translations: [Elevated prostate specific antigen [PSA]] Onset: 08-18-2021 Episodic Other skin disorders (20 sources) Disorder of skin and/or subcutaneous tissue; Translations: [Disorder of the skin and subcutaneous tissue, unspecified] Onset: 01-19-2023 02-09-2023 Episodic Other upper respiratory disease (20 sources) Deviated nasal septum; Translations: [Deviated nasal septum] Onset: 10-06-2022 10-06-2022 Episodic Other upper respiratory disease (20 sources) Nasal obstruction; Translations: [Other specified disorders of nose and nasal sinuses] Onset: 10-06-2022 10-06-2022 Episodic Other upper respiratory infections (20 sources) Acute upper respiratory infection, unspecified; Translations: [Viral upper respiratory tract infection] Onset: 10-06-2022 Resolved: 03-29-2023 Episodic Phlebitis; thrombophlebitis and thromboembolism (20 sources) Personal history of other venous thrombosis and embolism; Translations: [H/O: Deep vein thrombosis] Onset: 06-13-2015 02-09-2023 Episodic Residual codes; unclassified (20 sources) Disturbance in sleep behavior; Translations: [Sleep disorder, unspecified] Onset: 10-06-2022 10-06-2022 Episodic Residual codes; unclassified (20 sources) Edema; Translations: [Edema, unspecified] Onset: 10-06-2022 10-06-2022 Episodic Residual codes; unclassified (20 sources) Bilateral lower limb edema; Translations: [Localized edema] Onset: 11-13-2015 02-09-2023 Episodic Residual codes; unclassified (20 sources) Contact with and (suspected) exposure to other hazardous substances; Translations: [Contact with and (suspected) exposure to other potentially hazardous substances] Onset: 02-09-2023 02-09-2023 Episodic Residual codes; unclassified (20 sources) Edema of lower extremity; Translations: [Localized edema] Onset: 03-08-2016 10-10-2023 Episodic Spondylosis; intervertebral disc disorders; other back problems (20 sources) Spinal stenosis in cervical region; Translations: [Spinal stenosis, cervical region] Onset: 10-06-2022 10-06-2022 Episodic Viral infection (1 source) COVID-19 Results Test Name Value Interpretation Reference Range Facility LIPID PANEL, [facility] 030 Cholesterol [Mass/Vol] 146 mg/dL Normal <200 [facility] Comment on above: Order Comment: FASTI NG:YES FASTING: YES Performed By: #### 7 600, 5361 #### [facility] [address] [address] Claims Consultant: Kennedy Garcia MD Cholesterol in HDL [Mass/Vol] 30 mg/dL Low > OR = 40 [facility] Comment on above: Order Comment: FASTI NG:YES FASTING: YES Performed By: #### 7 600, 5328 #### [facility] [address] [place] [address] Claims Consultant: Kennedy Garcia MD Cholesterol in LDL [Mass/Vol] 85 mg/dL Normal [facility] Comment on above: Order Comment: FASTI NG:YES FASTING: YES Result Comment: Refe rence range: <100 Desirable range <100 mg/dL for primary prevention; <70 mg/dL for patients with CHD or diabetic patients with > or = 2 CHD risk factors. LDL-C is now calculated using the Eleazar calculation, which is a validated novel method providing better accuracy than the Friedewald equation in the estimation of LDL-C. Alessandro ECHAVARRIA et al. AMANDA. 2013;310(19): 3184-6696 (http://education.Jaxtr.Padloc/faq/TOY398) Performed By: #### 7 600, 5363 #### [facility] [address], [address] [place] [address] Claims Consultant: Kennedy Garcia MD Cholesterol.total/Destiny sterol in HDL [Mass ratio] 4.9 {ratio} Normal <5.0 [facility] Comment on above: Order Comment: FASTI NG:YES FASTING: YES Performed By: #### 7 600, 5363 #### [facility] [address], [address] [place] [address] Claims Consultant: Kennedy Garcia MD NON HDL CHOLESTEROL 116 mg/dL (calc) Normal <130 [facility] Comment on above: Order Comment: FASTI NG:YES FASTING: YES Result Comment: For patients with diabetes plus 1 major ASCVD risk factor, treating to a non-HDL-C goal of <100 mg/dL (LDL-C of <70 mg/dL) is considered a therapeutic option. Performed By: #### 7 600, 5363 #### [facility] [address], [address] [place] [address] Claims Consultant: Kennedy Garcia MD Triglyceride [Mass/Vol] 226 mg/dL High <150 [facility] Comment on above: Order Comment: FASTI NG:YES FASTING: YES Result Comment: If a non-fasting specimen was collected, consider repeat triglyceride testing on a fasting specimen if clinically indicated. Dale et al. J. of Clin. Lipidol. 2015;9:129-169. Performed By: #### 7 600, 5363 #### [facility] [address], [address] [place], [place] [id number] Claims Consultant: Kennedy Garcia MD PSA, TOTALon 07-12-2024 PSA, TOTAL 1.12 ng/mL Normal < OR = 4.00 [facility] Comment on above: Result Comment: The total PSA value from this assay system is standardized against the WHO standard. The test result will be approximately 20% lower when compared to the equimolar-standardized total PSA (Ta Barak). Comparison of serial PSA results should be interpreted with this fact in mind. This test was performed using the Siemens chemiluminescent method. Values obtained from different assay methods cannot be used interchangeably. PSA levels, regardless of value, should not be interpreted as absolute evidence of the presence or absence of disease. Performed By: #### 7 600, 5363 #### [facility] [address], [address] [place], [place] [id number] Claims Consultant: eKnnedy Garcia MD Office Visiton 07-11-2024 Follow-up visit [id number] Maury Issa 1950 M Date Provider Department Center 07/11/2024 BG RYAN Family History Problem Relation Age of Onset Heart attack Brother Family Status - Relation Status Age at Brother Level of Service:14236 [place] OFFICE/OUTPATIENT ESTABLISHED MOD MDM 30 MIN Reason for Visit and Comments: Coronary Artery Disease [187] Hypertension [446129] Hyperlipidemia [182] Atrial Fibrillation [80] Normal [facility] HbA1c (Bld) [Mass fraction]o n 06-13-2024 [facility] Laboratory - Chemistry and C hemistry - challengeon 06-13-2024 Albumin [Mass/Vol] 4.3 g/dL [facility] Creatinine (U) [Mass/Vol] 2.5 mg/dL [facility] GFR/1.73 sq M.predicted among non-blacks MDRD (S/P/Bld) [Vol rate/Area] 27 mL/min/{1.73_m2} [facility] Potassium [Moles/Vol] 4.9 mmol/L [facility] Sodium [Moles/Vol] 138 mmol/L [facility] Urea nitrogen [Mass/Vol] 43 mg/dL [facility] Laboratory - Hematology and Cell countson 06-13-2024 HbA1c (Bld) [Mass fraction] 6 % [facility] Microalbumin/Creatinine rati o panel (U)on 06-13-2024 Albumin DL <= 20 mg/L (U) [Mass/Vol] 48 mg/dL [facility] Albumin/Creatinine DL <= 1.0 mg/L (U) [Ratio] 528 [facility] Creatinine (U) [Mass/Vol] 91 mg/dL [facility] No Panel Informationon 06-13 [facility] - Hematology and Cell countson 02-27-2024 HbA1c (Bld) [Mass fraction] 5.6 % [facility] No Panel Informationon 02-26 [facility] No Panel InformationOrdered By: Lotus Casillas on 01-27-2024 Quick Strep (POC) [facility] Follow-Upon 01-13-2024 Follow-Up [id number] Maury Issa 1950 M Date Provider Department Center 01/13/2024 3848-TOMAS RAJAN MAU Amador Family History Problem Relation Age of Onset Heart attack Brother Family Status - Relation Status Age at Brother Level of Service:60962 [place] OFFICE/OUTPATIENT ESTABLISHED LOW MDM 20 MIN Normal [facility] MRI CARD MORPH FUNC WO/W IVC ONon 01-11-2024 MRI CARD MORPH FUNC WO/W IVCON * * *Final Report* * * DATE OF EXAM: Jan 11 2024 5:40PM [facility] 0703 - MRI CARD MORPH FUNC WO/W IVCON / PROCEDURE REASON: I42.2 * * * * Physician Interpretation * * * * Cardiac MRI Report: [facility] Date of service: 01/11/2024 3:38:29 PM Linked orders:[id number] CARD MORPH FUNC WO/W IVCON;[id number] CARDIAC VELOCITY FLOW MAP. Ordering physician: TOMAS RAJAN Technologist: MIGUEL ÁNGEL OVALLE Interpreting physician: Collin Boateng MD PATIENT: Name: MR. MAURY ISSA Age: 73 years Gender: M MRI Scanner: Siemens Meena 1.5T 73 year old male with suspected hypertrophic cardiomyopathy. Patient is a 73 year old male with history of CAD, with PCI to LAD, paroxysmal atrial fibrillation, hypertension and chronic kidney disease stage III. Patient recently had an echocardiogram that was concerning for possible hypertrophic cardiomyopathy. This study is performed to assess for left ventricular morphology, abnormal papillary muscle morphology, myocardial fibrosis, and to quantitate left ventricular and valvular function. MRI Techniques: * Turbo spin echo and gradient echo imaging for anatomic definition. * Dynamic cine imaging (SSFP and GRE) for cardiac chamber and wall-motion analysis, and valvular analysis. * Flow quantification sequences for hemodynamics in 2 locations: aortic root and mid-ascending aorta. * Delayed gadolinium enhancement analysis after injection of gadolinium-chelate. * T1 mapping. * T2 mapping. * T2 * . Gadolinium Agent: 13 cc of Gadavist was administered. Baseline vital signs: 50 bpm FINDINGS: Extracardiac findings: Limited imaging of the lungs reveals no gross abnormalities. Cardiac structures: The cardiac chambers demonstrate normal atrioventricular and normal ventriculoarterial concordance. Systemic and pulmonary venous return is normal. Aorta: Sinus: 4.0 cm Sinotubular junction: 3.5 cm Mid ascendin.2 cm Distal ascendin.9 cm Proximal descending isthmus: 2.8 cm Symmetric aortic root. Acute Aortic Pathology: no Pulmonary Arteries: Pulmonary Arteries: Normal Measurements: - Main pulmonary artery diameter: 2.5 cm - Right pulmonary artery diameter: 1.8 cm - Left pulmonary artery diameter: 2.5 cm Left Atrium: The left atrium is normal in size. LA volume: 58 ml (normal range: 31-112 ml) Right Atrium: The right atrium is mildly dilated. RA volume: 98 ml (normal range: 24-105 ml) Left Ventricle: The left ventricle is normal in size. Left ventricular systolic function is normal. value (normal range) EDV: 140 ml (83-207 ml) EDVi: ESV: 50 ml (19-88 ml) ESVi: SV: 90 ml (55-127 ml) SVi: JILLIAN: 4.2 cm (4.2-6.2 cm) Vianca: ESD: 2.9 cm (2.6-3.8 cm) ESDi: EF: 64 % (51-76 %) CO: 4.5 l/min (3.9-8.3 l/min) CI: mass: 144 g (57-152 g) LVMi: The JILLIAN measurement was taken from the short axis view and the ESD measurement was taken from the short axis view. There is moderate asymmetric LV hypertrophy. LV segment wall thickness: basal anteroseptum: 1.5 cm basal inferolateral: 0.8 cm Wall Motion: There are no wall motion abnormalities. Right Ventricle: The right ventricle is normal in size. Right ventricular systolic function is normal. value (normal range) EDV: 138 ml (87-244 ml) EDVi: ESV: 52 ml (29-117 ml) ESVi: SV: 86 ml (43-146 ml) SVi: EF: 62 % (42-72 %) CO: 4.3 l/min (2.8-8.3 l/min) CI: Fibro-fatty Infiltration: no Regional Wall Motion: Normal Aneurysm / Diverticulum Formation: no T1 / T2 / ECV T2 * : +------+ + -----+-------+ T1 pre (ms) +/- ECV (%) +------+ + -----+-------+ Global 986.00 25.00 25.00 +------+ + -----+-------+ Normal values based on healthy individuals: T1: 950 +/- 21 ms; ECV: 26 +/- 4% T2 mapping: Mid: 49 +/- 4 ms T2 * weighted imaging: LV myocardium: 35 +/- 10 ms Aortic Valve: The aortic valve cusps are structurally normal. There is mild aortic regurgitation. AV Flow Quantification: Mid Ascending Aorta Forward Volume: 95 ml Reverse Volume: 11 ml Net Forward Volume: 84 ml Regurgitant Fraction: 12 % Pulmonic Valve: PV Flow Quantification: Pulmonic Flow Quantification: Forward Volume: 87 ml Reverse Volume: 2 ml Net forward volume: 85 ml Regurgitant fraction: 2 % Mitral Valve: There is trace mitral regurgitation. Tricuspid Valve: The tricuspid valve leaflets are structurally normal. TR severity: trace Pericardium: There is normal pericardial thickness. Qualitative assessment based on Fat suppressed PSIR: yes. Delayed enhancement: none. Pericardial edema is not present. Limited imaging of the abdomen reveals no gross abnormalities. Qp/Qs utilizing flow quantification is 1.01. IMPRESSION: - The left ventricle is normal in size. The left ventricular systolic function is normal (LV EF = 64 %). There is moderate asymmet (more content not included)... Normal [facility] MRI CARDIAC VELOCITY FLOW MA Thony 01-11-2024 MRI CARDIAC VELOCITY FLOW MAP * * *Final Report* * * DATE OF EXAM: Jan 11 2024 5:40PM [facility] 0704 - MRI CARDIAC VELOCITY FLOW MAP / PROCEDURE REASON: I42.2 * * * * Physician Interpretation * * * * Cardiac MRI Report: [facility] Date of service: 01/11/2024 3:38:29 PM Linked orders:[id number] CARD MORPH FUNC WO/W IVCON;[id number] CARDIAC VELOCITY FLOW MAP. Ordering physician: TOMAS RAJAN Technologist: MIGUEL ÁNGEL OVALLE Interpreting physician: Collin Boateng MD PATIENT: Name: MR. MAURY ISSA Age: 73 years Gender: M MRI Scanner: Siemens Meena 1.5T 73 year old male with suspected hypertrophic cardiomyopathy. Patient is a 73 year old male with history of CAD, with PCI to LAD, paroxysmal atrial fibrillation, hypertension and chronic kidney disease stage III. Patient recently had an echocardiogram that was concerning for possible hypertrophic cardiomyopathy. This study is performed to assess for left ventricular morphology, abnormal papillary muscle morphology, myocardial fibrosis, and to quantitate left ventricular and valvular function. MRI Techniques: * Turbo spin echo and gradient echo imaging for anatomic definition. * Dynamic cine imaging (SSFP and GRE) for cardiac chamber and wall-motion analysis, and valvular analysis. * Flow quantification sequences for hemodynamics in 2 locations: aortic root and mid-ascending aorta. * Delayed gadolinium enhancement analysis after injection of gadolinium-chelate. * T1 mapping. * T2 mapping. * T2 * . Gadolinium Agent: 13 cc of Gadavist was administered. Baseline vital signs: 50 bpm FINDINGS: Extracardiac findings: Limited imaging of the lungs reveals no gross abnormalities. Cardiac structures: The cardiac chambers demonstrate normal atrioventricular and normal ventriculoarterial concordance. Systemic and pulmonary venous return is normal. Aorta: Sinus: 4.0 cm Sinotubular junction: 3.5 cm Mid ascendin.2 cm Distal ascendin.9 cm Proximal descending isthmus: 2.8 cm Symmetric aortic root. Acute Aortic Pathology: no Pulmonary Arteries: Pulmonary Arteries: Normal Measurements: - Main pulmonary artery diameter: 2.5 cm - Right pulmonary artery diameter: 1.8 cm - Left pulmonary artery diameter: 2.5 cm Left Atrium: The left atrium is normal in size. LA volume: 58 ml (normal range: 31-112 ml) Right Atrium: The right atrium is mildly dilated. RA volume: 98 ml (normal range: 24-105 ml) Left Ventricle: The left ventricle is normal in size. Left ventricular systolic function is normal. value (normal range) EDV: 140 ml (83-207 ml) EDVi: ESV: 50 ml (19-88 ml) ESVi: SV: 90 ml (55-127 ml) SVi: JILLIAN: 4.2 cm (4.2-6.2 cm) Vianca: ESD: 2.9 cm (2.6-3.8 cm) ESDi: EF: 64 % (51-76 %) CO: 4.5 l/min (3.9-8.3 l/min) CI: mass: 144 g (57-152 g) LVMi: The JILLIAN measurement was taken from the short axis view and the ESD measurement was taken from the short axis view. There is moderate asymmetric LV hypertrophy. LV segment wall thickness: basal anteroseptum: 1.5 cm basal inferolateral: 0.8 cm Wall Motion: There are no wall motion abnormalities. Right Ventricle: The right ventricle is normal in size. Right ventricular systolic function is normal. value (normal range) EDV: 138 ml (87-244 ml) EDVi: ESV: 52 ml (29-117 ml) ESVi: SV: 86 ml (43-146 ml) SVi: EF: 62 % (42-72 %) CO: 4.3 l/min (2.8-8.3 l/min) CI: Fibro-fatty Infiltration: no Regional Wall Motion: Normal Aneurysm / Diverticulum Formation: no T1 / T2 / ECV T2 * : +------+ + -----+-------+ T1 pre (ms) +/- ECV (%) +------+ + -----+-------+ Global 986.00 25.00 25.00 +------+ + -----+-------+ Normal values based on healthy individuals: T1: 950 +/- 21 ms; ECV: 26 +/- 4% T2 mapping: Mid: 49 +/- 4 ms T2 * weighted imaging: LV myocardium: 35 +/- 10 ms Aortic Valve: The aortic valve cusps are structurally normal. There is mild aortic regurgitation. AV Flow Quantification: Mid Ascending Aorta Forward Volume: 95 ml Reverse Volume: 11 ml Net Forward Volume: 84 ml Regurgitant Fraction: 12 % Pulmonic Valve: PV Flow Quantification: Pulmonic Flow Quantification: Forward Volume: 87 ml Reverse Volume: 2 ml Net forward volume: 85 ml Regurgitant fraction: 2 % Mitral Valve: There is trace mitral regurgitation. Tricuspid Valve: The tricuspid valve leaflets are structurally normal. TR severity: trace Pericardium: There is normal pericardial thickness. Qualitative assessment based on Fat suppressed PSIR: yes. Delayed enhancement: none. Pericardial edema is not present. Limited imaging of the abdomen reveals no gross abnormalities. Qp/Qs utilizing flow quantification is 1.01. IMPRESSION: - The left ventricle is normal in size. The left ventricular systolic function is normal (LV EF = 64 %). There is moderate asymmetr (more content not included)... Normal [facility] CNPNon 01-04-2024 CNPN Telephone ([facility]) MAURY ISSA ([id number]) 1950 Date Time Provider Department 01/04/24 FRANCIA DUMONT During your visit today, we recorded the following information about you: Francia Dumont, biomedical engineering director 01/04/2024 4:46 PM Signed Aye Boateng, Could you please provide a CMR Protocol for Maury Issa who is scheduled as an Outpatient for a Cardiac MRI on TuesdayJanuary 10 at 3:00pm. Order in scanned documents date 12/02/23 as Miscellaneous Imaging. Mr Cardiac Morphology and function w AND wo iv contrast. DX: Hypertrophic Cardiomyopathy. Thank you! Sincerely, Francia Dumont RT(R)MRVI Allergies As of Date: 01/04/2024 (No Known Allergies) Date Reviewed: 11/16/2019 Reviewed by: Darcie Magaña (Rn), RN - Fully Assessed Reason for Visit: Orders [681] Prescriptions as of 01/04/2024 - CIPROFLOXACIN 500 mg tablet - enalapril (VASOTEC) 20 mg tablet Take 1 tablet by mouth twice daily. - metFORMIN 500 mg tablet Take 2 tablets by mouth twice daily. - insulin glargine (LANTUS) 100 unit/mL injection Inject 100 Units subcutaneously daily at bedtime. - nebivolol (BYSTOLIC) 20 mg Tab Take by mouth once daily. - olmesartan-hydrochlo rothiazide 40-12.5 mg per tablet Take 1 tablet by mouth once daily. - lansoprazole (PREVACID) 30 mg capsule Take 1 capsule by mouth once daily. - amLODIPine (NORVASC) 5 mg tablet Take 1 tablet by mouth once daily. - insulin aspart (NOVOLOG) 100 unit/mL Soln Inject subcutaneously daily with breakfast. Problem List As Of Date 01/04/2024 Noted Resolved Abdominal pain, other specified site [R10.9] 02/23/2013 Encounter Status:Closed by FRANCIA DUMONT on 01/04/24 [facility] Office Visiton 12-02-2023 Follow-up visit [id number] Maury Issa Jann 1950 M Date Provider Department Center 12/02/2023 3848-TOMAS RAJAN CARD [facility] Family History Problem Relation Age of Onset Heart attack Brother Family Status - Relation Status Age at Brother Level of Service:55414 [place] OFFICE/OUTPATIENT ESTABLISHED MOD MDM [address] [facility] Orders Onlyon 12-02-2023 Orders Only [id number] Maury Issa 1950 M Date Provider Department Center 12/02/2023 Ting-CHAKA GOODSON MAU Amador Family History Problem Relation Age of Onset Heart attack Brother Family Status - Relation Status Age at Brother [facility] 36on 10-31-[address] Rajan- patient is ok to stop Plavix and taking low dose aspirin. Patient stopped by the office last week and was made aware. [facility] 36on 09-17-2023 36 He is on Eliquis and Plavix per Dr. Rajan. We can switch plavix to aspirin if okay with Dr. Rajan. [facility] 36on 09-15-2023 36 Patient's significant other Isa called with a question about Joslyn. I guess when Dr. Daly was seeing her in the office recently, Joslyn mentioned to Dr. Daly about all his bruising on his arms. He told Dr. Daly he is taking 2 blood thinners - Plavix and Eliquis. Isa said Dr. Daly told Don he shouldn't be on Plavix and Eliquis this long after stent placement. Should be still be taking Plavix? Please advise. Thanks! [facility] Telephoneon 09-15-2023 Telephone [id number] Maury Issa Jann 1950 M Date Provider Department Center 09/15/2023 Katarina-SAEID [place] MAU Amador Family History Problem Relation Age of Onset Heart attack Brother Family Status - Relation Status Age at Brother [facility] COVID + FLU Quick Testingon 06-16-2023 SARS-CoV-2 (COVID-19) RNA GALLO+probe Ql (Unsp spec) Negative [facility] Other COVID + FLU Quick Testing Negative [facility] Other Basic Metabolic Panelon 10-2 Creatinine Clr Calc Pharmacy 40.83 Normal [facility] Comment on above: Result Comment: PERF ORMED BY: [facility] [place] [address] PATHOLOGIST MATERIALS ENGINEER ALEJANDRINA EID M.D. Performed By: #### G LULS #### Point of Care testing , GFR/1.73 sq M.predicted MDRD (S/P/Bld) [Vol rate/Area] 40.533 mL/min/{1.73_m2} Normal [facility] Comment on above: Performed By: #### G LULS #### Point of Care testing , Calcium [Mass/volume] in Ser um or PlasmaOrdered By: Shruti Savage on 02-28-2023 Calcium [Mass/Vol] 8.3 mg/dL Low 8.6-10.3 [facility] Comment on above: Performed By: #### G LULS #### Point of Care testing , Capillary blood glucose stephanie urement by glucometer (mass/volume)Ordered By: Dwain Peñaloza on 02-28-2023 Glucose [Mass/Vol] 98 mg/dL Normal [facility] Comment on above: Random Glucose Refer ence Range is dependent on time and content of last meal. Glucose of more than 200 mg/dL in a nonstressed, ambulatory subject supports the diagnosis of Diabetes Mellitus. Result Comment: [place] [facility] Glucose Reference Range is dependent on time and content of last meal. Glucose of more than 200 mg/dL in a nonstressed, ambulatory subject supports the diagnosis of Diabetes Mellitus. Performed By: #### G LULS #### Point of Care testing , Carbon dioxide, total [Moles /volume] in Serum or PlasmaOrdered By: Shruti Savage on 02-28-2023 CO2 [Moles/Vol] 30.2 mmol/L Normal 21.0-31.0 [facility] Comment on above: Performed By: #### G LULS #### Point of Care testing , Chloride [Moles/volume] in S heath or PlasmaOrdered By: Shruti Savage on 02-28-2023 Chloride [Moles/Vol] 110 mmol/L High 98-107 [facility] Comment on above: Performed By: #### G LULS #### Point of Care testing , Creatinine [Mass/volume] in Serum or PlasmaOrdered By: Shruti Saavge on 02-28-2023 Creatinine [Mass/Vol] 1.78 mg/dL High 0.70-1.30 [facility] Comment on above: Performed By: #### G LULS #### Point of Care testing , Glucose Poct Glucometerson 1 Commemt1 Glu2: Cleaned Meter Normal [facility] Comment on above: Result Comment: PERF ORMED BY: [facility] [address] [place] [address] PATHOLOGIST MATERIALS ENGINEER ALEJANDRINA EID M.D. Performed By: #### G LULS #### Point of Care testing , Glucose [Mass/Vol] 96 mg/dL Normal [facility] Comment on above: Result Comment: [facility] Glucose Reference Range is dependent on time and content of last meal. Glucose of more than 200 mg/dL in a nonstressed, ambulatory subject supports the diagnosis of Diabetes Mellitus. PERFORMED BY: [facility] [address] [place] [address] PATHOLOGIST MATERIALS ENGINEER ALEJANDRINA EID M.D. Performed By: #### G LULS #### Point of Care testing , Glucose [Mass/Vol] 83 mg/dL Normal [facility] Comment on above: Result Comment: [facility] Glucose Reference Range is dependent on time and content of last meal. Glucose of more than 200 mg/dL in a nonstressed, ambulatory subject supports the diagnosis of Diabetes Mellitus. PERFORMED BY: [facility] [address] [facility] [place] [id number] PATHOLOGIST MATERIALS ENGINEER ALEJANDRINA EID M.D. Performed By: #### G LULS #### Point of Care testing , Glucose [Mass/volume] in Ser um or PlasmaOrdered By: Shruti Savage on 02-28-2023 Glucose [Mass/Vol] 82 mg/dL Normal 70-100 [facility] [facility] Comment on above: ADA recommended refe rence rangeRandom Glucose Reference Range is dependent on time and content of last meal. Glucose of more than 200 mg/dL in a nonstressed, ambulatory subject supports the diagnosis of Diabetes Mellitus. Result Comment: [place] [facility] Glucose Reference Range is dependent on time and content of last meal. Glucose of more than 200 mg/dL in a nonstressed, ambulatory subject supports the diagnosis of Diabetes Mellitus. ADA recommended reference range Performed By: #### G LULS #### Point of Care testing , Hematocrit [Volume Fraction] of Blood by Automated countOrdered By: Shruti Savage on 02-28-2023 Hematocrit (Bld) [Volume fraction] 27.9 % Low 38.8-50.0 [facility] Comment on above: Result Comment: PERF ORMED BY: [facility] [address] [place] [address] PATHOLOGIST MATERIALS ENGINEER ALEJANDRINA EID M.D. Performed By: #### G LULS #### Point of Care testing , Hemoglobin [Mass/volume] in BloodOrdered By: Shruti Savage on 02-28-2023 Hemoglobin (Bld) [Mass/Vol] 9.7 g/dL Low 13.0-17.0 [facility] Comment on above: Performed By: #### G LULS #### Point of Care testing , No Panel InformationOrdered By: Dwain Peñaloza on 02-28-2023 Bedside Glucose Comment Glu2: cleaned meter [facility] No Panel InformationOrdered By: Shruti Savage on 02-28-2023 Estimated GFR (CKD-EPI) 40.533 mL/Min [facility] Creatinine Clearance (Chem 40.83 [facility] Potassium [Moles/volume] in Serum or PlasmaOrdered By: Shruti Savage on 02-28-2023 Potassium [Moles/Vol] 4.5 mmol/L Normal 3.5-5.1 [facility] Comment on above: Performed By: #### G LULS #### Point of Care testing , Serum or plasma anion gap de terminationOrdered By: Shruti Savage on 02-28-2023 Anion gap [Moles/Vol] 7.3 mmol/L Normal 6.0-15.0 [facility] Comment on above: Performed By: #### G LULS #### Point of Care testing , Sodium [Moles/volume] in Ser um or PlasmaOrdered By: Obaydah Daromar on 02-28-2023 Sodium [Moles/Vol] 143 mmol/L Normal 136-145 [facility] Comment on above: Performed By: #### G LULS #### Point of Care testing , Urea nitrogen [Mass/volume] in Serum or PlasmaOrdered By: Obaydah Daromar on 02-28-2023 Urea nitrogen [Mass/Vol] 23 mg/dL Significant change down 11-30 [facility] Comment on above: Delta: 70 on 3 Performed By: #### G LULS #### Point of Care testing , Glucose Poct Glucometerson 1 Glucose [Mass/Vol] 172 mg/dL Normal [facility] Comment on above: Result Comment: [facility] Glucose Reference Range is dependent on time and content of last meal. Glucose of more than 200 mg/dL in a nonstressed, ambulatory subject supports the diagnosis of Diabetes Mellitus. PERFORMED BY: [address] [place] [address] PATHOLOGIST MATERIALS ENGINEER ALEJANDRINA EID M.D. Performed By: #### G LULS #### Point of Care testing , Glucose [Mass/Vol] 89 mg/dL Normal [facility] Comment on above: Result Comment: [facility] Glucose Reference Range is dependent on time and content of last meal. Glucose of more than 200 mg/dL in a nonstressed, ambulatory subject supports the diagnosis of Diabetes Mellitus. PERFORMED BY: [address] [address] PATHOLOGIST MATERIALS ENGINEER ALEJANDRINA EID M.D. Performed By: #### G LULS #### Point of Care testing , Glucose [Mass/Vol] 94 mg/dL Normal [facility] Comment on above: Result Comment: [facility] Glucose Reference Range is dependent on time and content of last meal. Glucose of more than 200 mg/dL in a nonstressed, ambulatory subject supports the diagnosis of Diabetes Mellitus. PERFORMED BY: [address] [place] [address] PATHOLOGIST MATERIALS ENGINEER ALEJANDRINA EID M.D. Performed By: #### G LULS #### Point of Care testing , Glucose [Mass/Vol] 96 mg/dL Normal [facility] Comment on above: Result Comment: [facility] Glucose Reference Range is dependent on time and content of last meal. Glucose of more than 200 mg/dL in a nonstressed, ambulatory subject supports the diagnosis of Diabetes Mellitus. PERFORMED BY: [address] [place] [address] PATHOLOGIST MATERIALS ENGINEER ALEJANDRINA EID M.D. Performed By: #### G LULS #### Point of Care testing , Hemoglobin and Hematocriton 02-27-2023 Hematocrit (Bld) [Volume fraction] 30.4 % Low 38.8-50.0 [facility] Comment on above: Result Comment: PERF ORMED BY: [address] [place] [address] PATHOLOGIST MATERIALS ENGINEER ALEJANDRINA EID M.D. Performed By: #### G LULS #### Point of Care testing , Hemoglobin (Bld) [Mass/Vol] 10.6 g/dL Low 13.0-17.0 [facility] Comment on above: Performed By: #### G LULS #### Point of Care testing , Hematocrit (Bld) [Volume fraction] 25.9 % Low 38.8-50.0 [facility] Comment on above: Result Comment: PERF ORMED BY: [address] [place] [address] PATHOLOGIST MATERIALS ENGINEER ALEJANDRINA EID M.D. Performed By: #### G LULS #### Point of Care testing , Hemoglobin (Bld) [Mass/Vol] 9.2 g/dL Low 13.0-17.0 [facility] Comment on above: Performed By: #### G LULS #### Point of Care testing , Alanine aminotransferase [En zymatic activity/volume] in Serum or PlasmaOrdered By: Obaydah Daromar on 02-26-2023 ALT [Catalytic activity/Vol] 11 U/L Normal 7-52 [facility] Comment on above: Performed By: #### G LULS #### Point of Care testing , Albumin [Mass/volume] in Ser um or Plasma by Bromocresol green (BCG) dye binding methoOrdered By: Obaydah Daromar on 02-26-2023 Albumin BCG dye [Mass/Vol] 3.2 g/dL 3.5-5.7 [facility] Alkaline phosphatase [Enzyma tic activity/volume] in Serum or PlasmaOrdered By: Obaydah Daromar on 02-26-2023 ALP [Catalytic activity/Vol] 25 U/L Low 34-104 [facility] Comment on above: Performed By: #### G LULS #### Point of Care testing , Aspartate aminotransferase [ Enzymatic activity/volume] in Serum or PlasmaOrdered By: Obaydah Daromar on 02-26-2023 AST [Catalytic activity/Vol] 11 U/L Low 13-39 [facility] Comment on above: Performed By: #### G LULS #### Point of Care testing , Basophils Auto (Bld) [#/Vol] Ordered By: Obaydah Daromar on 02-26-2023 Basophils (Bld) [#/Vol] N/A [facility] Basophils/100 WBC Auto (Bld) Ordered By: Obaydah Daromar on 02-26-2023 Basophils/100 WBC (Bld) N/A [facility] Bilirubin.total [Mass/volume ] in Serum or PlasmaOrdered By: Obaydah Daromar on 02-26-2023 Bilirubin [Mass/Vol] 0.6 mg/dL Normal 0.3-1.0 [facility] Comment on above: Performed By: #### G LULS #### Point of Care testing , Comprehensive Metabolic Pane mayo 02-26-2023 Albumin [Mass/Vol] 3.2 g/dL Low 3.5-5.7 [facility] Comment on above: Performed By: #### G LULS #### Point of Care testing , Anion gap [Moles/Vol] 8.5 mmol/L Normal 6.0-15.0 [facility] Comment on above: Performed By: #### G LULS #### Point of Care testing , Calcium [Mass/Vol] 8.2 mg/dL Low 8.6-10.3 [facility] Comment on above: Performed By: #### G LULS #### Point of Care testing , Chloride [Moles/Vol] 113 mmol/L High 98-107 [facility] Comment on above: Performed By: #### G LULS #### Point of Care testing , CO2 [Moles/Vol] 23.3 mmol/L Normal 21.0-31.0 [facility] Comment on above: Performed By: #### G LULS #### Point of Care testing , Creatinine [Mass/Vol] 2.03 mg/dL High 0.70-1.30 [facility] Comment on above: Performed By: #### G LULS #### Point of Care testing , Creatinine Clr Calc Pharmacy 36.00 Normal [facility] Comment on above: Result Comment: PERF ORMED BY: [place] [address] [place] [address] PATHOLOGIST MATERIALS ENGINEER ALEJANDRINA EID M.D. Performed By: #### G LULS #### Point of Care testing , GFR/1.73 sq M.predicted MDRD (S/P/Bld) [Vol rate/Area] 34.619 mL/min/{1.73_m2} Normal [facility] Comment on above: Performed By: #### G LULS #### Point of Care testing , Glucose [Mass/Vol] 91 mg/dL Normal 70-100 [facility] Comment on above: Result Comment: [place] Glucose Reference Range is dependent on time and content of last meal. Glucose of more than 200 mg/dL in a nonstressed, ambulatory subject supports the diagnosis of Diabetes Mellitus. ADA recommended reference range Performed By: #### G LULS #### Point of Care testing , Potassium [Moles/Vol] 3.8 mmol/L Normal 3.5-5.1 [facility] Comment on above: Performed By: #### G LULS #### Point of Care testing , Sodium [Moles/Vol] 141 mmol/L Normal 136-145 [facility] Comment on above: Performed By: #### G LULS #### Point of Care testing , Urea nitrogen [Mass/Vol] 70 mg/dL High 7-25 [facility] Comment on above: Performed By: #### G LULS #### Point of Care testing , Diff and CBCon 02-26-2023 Hematocrit (Bld) [Volume fraction] 28.4 % Low 38.8-50.0 [facility] Comment on above: Performed By: #### G LULS #### Point of Care testing , Hemoglobin (Bld) [Mass/Vol] 9.7 g/dL Low 13.0-17.0 [facility] Comment on above: Performed By: #### G LULS #### Point of Care testing , Mean Corpuscular HGB Conc 34.2 g/dL Normal 32.5-35.6 [facility] Comment on above: Performed By: #### G LULS #### Point of Care testing , Myelocytes 3 % High 0-0 [facility] Comment on above: Performed By: #### G LULS #### Point of Care testing , Ovalocytes Slight Normal [facility] Comment on above: Performed By: #### G LULS #### Point of Care testing , Platelet Estimate Decreased Normal Normal [facility] Comment on above: Performed By: #### G LULS #### Point of Care testing , Platelet Morphology Normal Normal Normal [facility] Comment on above: Result Comment: PERF ORMED BY: [facility] [place] [address] [address] PATHOLOGIST MATERIALS ENGINEER ALEJANDRINA EID M.D. Performed By: #### G LULS #### Point of Care testing , Poikilocytosis Slight Normal [facility] Comment on above: Performed By: #### G LULS #### Point of Care testing , Polychromasia Slight Normal [facility] Comment on above: Performed By: #### G LULS #### Point of Care testing , Eosinophils Auto (Bld) [#/Vo l]Ordered By: Obaydah Daromar on 02-26-2023 Eosinophils (Bld) [#/Vol] N/A [facility] Eosinophils/100 WBC Auto (Bl d)Ordered By: Obaydah Daromar on 02-26-2023 Eosinophils/100 WBC (Bld) N/A [facility] Erythrocyte distribution wid th [Ratio] by Automated countOrdered By: Obgeronimodah Daromar on 02-26-2023 Erythrocyte distribution width (RBC) [Ratio] 15.0 % High 12.0-14.8 [facility] Comment on above: Performed By: #### G LULS #### Point of Care testing , Erythrocytes [#/volume] in B lood by Automated countOrdered By: Obaydah Daromar on 02-26-2023 RBC (Bld) [#/Vol] 3.33 10*6/uL Low 3.90-5.60 [facility] Comment on above: Performed By: #### G LULS #### Point of Care testing , Glucose Poct Glucometerson 1 Commemt1 Glu2: Cleaned Meter Normal [facility] Comment on above: Result Comment: PERF ORMED BY: [facility] [address] [place] [address] PATHOLOGIST MATERIALS ENGINEER ALEJANDRINA EID M.D. Performed By: #### G LULS #### Point of Care testing , Glucose [Mass/Vol] 141 mg/dL Normal [facility] Comment on above: Result Comment: [place] Glucose Reference Range is dependent on time and content of last meal. Glucose of more than 200 mg/dL in a nonstressed, ambulatory subject supports the diagnosis of Diabetes Mellitus. Performed By: #### G LULS #### Point of Care testing , Commemt1 Glu2: Cleaned Meter Normal [facility] Comment on above: Result Comment: PERF ORMED BY: [address] [place] [address] PATHOLOGIST MATERIALS ENGINEER ALEJANDRINA EID M.D. Performed By: #### G LULS #### Point of Care testing , Glucose [Mass/Vol] 94 mg/dL Normal [facility] Comment on above: Result Comment: [place] [facility] Glucose Reference Range is dependent on time and content of last meal. Glucose of more than 200 mg/dL in a nonstressed, ambulatory subject supports the diagnosis of Diabetes Mellitus. Performed By: #### G LULS #### Point of Care testing , Glucose [Mass/Vol] 106 mg/dL Normal [facility] Comment on above: Result Comment: [place] [facility] Glucose Reference Range is dependent on time and content of last meal. Glucose of more than 200 mg/dL in a nonstressed, ambulatory subject supports the diagnosis of Diabetes Mellitus. PERFORMED BY: [address] [place] [address] PATHOLOGIST MATERIALS ENGINEER ALEJANDRINA EID M.D. Performed By: #### G LULS #### Point of Care testing , Glucose [Mass/Vol] 94 mg/dL Normal [facility] Comment on above: Result Comment: [place] [facility] Glucose Reference Range is dependent on time and content of last meal. Glucose of more than 200 mg/dL in a nonstressed, ambulatory subject supports the diagnosis of Diabetes Mellitus. PERFORMED BY: [address] [address] PATHOLOGIST MATERIALS ENGINEER ALEJANDRINA EID M.D. Performed By: #### G LULS #### Point of Care testing , Hemoglobin and Hematocriton 02-26-2023 Hematocrit (Bld) [Volume fraction] 25.8 % Low 38.8-50.0 [facility] Comment on above: Result Comment: PERF ORMED BY: [address] [place] [id number] PATHOLOGIST MATERIALS ENGINEER ALEJANDRINA EID M.D. Performed By: #### G LULS #### Point of Care testing , Hemoglobin (Bld) [Mass/Vol] 9.0 g/dL Low 13.0-17.0 [facility] Comment on above: Performed By: #### G LULS #### Point of Care testing , Hematocrit (Bld) [Volume fraction] 27.9 % Low 38.8-50.0 [facility] Comment on above: Result Comment: PERF ORMED BY: [place] [address] PATHOLOGIST MATERIALS ENGINEER ALEJANDRINA EID M.D. Performed By: #### H H #### [facility] [address] [place] [address] Hemoglobin (Bld) [Mass/Vol] 9.6 g/dL Low 13.0-17.0 [facility] Comment on above: Performed By: #### H H #### [facility] [address] [place] [address] Leukocytes [#/volume] correc ayana for nucleated erythrocytes in Blood by Automated counOrdered By: Obaydah Daromar on 02-26-2023 WBC corrected for nucl RBC Auto (Bld) [#/Vol] 9.8 10*3/uL 4.1-10.5 [facility] Leukocytes [#/volume] in Blo od by Automated countOrdered By: Obaydah Daromar on 02-26-2023 WBC (Bld) [#/Vol] 9.8 10*3/uL Normal 4.1-10.5 [facility] Comment on above: Performed By: #### G LULS #### Point of Care testing , Lymphocytes Auto (Bld) [#/Vo l]Ordered By: Obaydah Daromar on 02-26-2023 Lymphocytes (Bld) [#/Vol] N/A [facility] Lymphocytes/100 WBC Auto (Bl d)Ordered By: Obaydah Daromar on 02-26-2023 Lymphocytes/100 WBC (Bld) N/A [facility] Lymphocytes/100 leukocytes i n Blood by Manual countOrdered By: Obaydah Daromar on 02-26-2023 Lymphocytes/100 WBC (Bld) 20 % Normal 18-42 [facility] Comment on above: Performed By: #### G LULS #### Point of Care testing , MCH [Entitic mass] by Automa ayana countOrdered By: Obgeronimodaenzo Daromar on 02-26-2023 MCH (RBC) [Entitic mass] 29.2 pg Normal 27.5-35.2 [facility] Comment on above: Performed By: #### G LULS #### Point of Care testing , MCHC Auto (RBC) [Mass/Vol]Or dered By: Obgeronimodaenzo Barraganomar on 02-26-2023 MCHC (RBC) [Mass/Vol] 34.2 g/dL 32.5-35.6 [facility] MCV [Entitic volume] by Auto mated countOrdered By: Obgeronimodaenzo Barraganomar on 02-26-2023 MCV (RBC) [Entitic vol] 85.3 fL Normal 83.5-101 [facility] Comment on above: Performed By: #### G LULS #### Point of Care testing , Manual blood segmented neutr ophils/100 leukocytesOrdered By: Obgeronimodaenzo Barraganomar on 02-26-2023 Segmented neutrophils/100 WBC (Bld) 75 % High 50-70 [facility] Comment on above: Performed By: #### G LULS #### Point of Care testing , Monocytes Auto (Bld) [#/Vol] Ordered By: Obgeronimodaenzo Barraganomar on 02-26-2023 Monocytes (Bld) [#/Vol] N/A [facility] Monocytes/100 WBC Auto (Bld) Ordered By: Obaydah Daromar on 02-26-2023 Monocytes/100 WBC (Bld) N/A [facility] Monocytes/100 leukocytes in Blood by Manual countOrdered By: Obgeronimodaenzo Barraganomar on 02-26-2023 Monocytes/100 WBC (Bld) 2 % Normal 2-11 [facility] Comment on above: Performed By: #### G LULS #### Point of Care testing , Myelocytes/100 WBC Manual cn t (Bld)Ordered By: Shruti Covarrubiasr on 02-26-2023 Myelocytes/100 WBC (Bld) 3 % 0-0 [facility] Neutrophils Auto (Bld) [#/Vo l]Ordered By: Obgeronimodaenzo Barraganomar on 02-26-2023 Neutrophils (Bld) [#/Vol] N/A [facility] Neutrophils/100 WBC Auto (Bl d)Ordered By: Obgeronimodaenzo Barraganomar on 02-26-2023 Neutrophils/100 WBC (Bld) N/A [facility] Nucleated erythrocytes [Pres ence] in Blood by Automated countOrdered By: Shruti Covarrubiasr on 02-26-2023 Nucleated RBC Auto Ql (Bld) N/A [facility] Ovalocyte detectionOrdered B y: Obgeronimodaenzo Barraganomar on 02-26-2023 Ovalocytes LM Ql (Bld) [facility] Platelet adequacy [Presence] in Blood by Light microscopyOrdered By: Shruti Covarrubiasr on 02-26-2023 Platelets LM Ql (Bld) Decreased Normal [facility] Platelet mean volume [Entiti c volume] in Blood by Automated countOrdered By: Shruti Covarrubiasr on 02-26-2023 Platelet mean volume (Bld) [Entitic vol] 8.6 fL Normal 6.6-10.1 [facility] Comment on above: Result Comment: PERF ORMED BY: [facility] [address] [place] [address] PATHOLOGIST MATERIALS ENGINEER ALEJANDRINA EID M.D. Performed By: #### G LULS #### Point of Care testing , Platelet morphology finding [Identifier] in BloodOrdered By: Shruti Savage on 02-26-2023 Platelet morphology finding Nom (Bld) Normal Normal [facility] Platelets [#/volume] in Bloo d by Automated countOrdered By: Shruti Covarrubiasr on 02-26-2023 Platelets (Bld) [#/Vol] 116 10*3/uL Signific ant change down 150-450 [facility] Comment on above: Delta: 155 on -1015 Performed By: #### G LULS #### Point of Care testing , Poikilocytosis [Presence] in Blood by Light microscopyOrdered By: Obgeronimodah Daromar on 02-26-2023 Poikilocytosis LM Ql (Bld) Slight [facility] Polychromasia [Presence] in Blood by Light microscopyOrdered By: Obgeronimodah Daromar on 02-26-2023 Polychromasia LM Ql (Bld) Slight [facility] Protein [Mass/volume] in Ser um or PlasmaOrdered By: Obgeronimodah Daromar on 02-26-2023 Protein [Mass/Vol] 5.3 g/dL Low 6.4-8.9 [facility] Comment on above: Performed By: #### G LULS #### Point of Care testing , RBC morphologyOrdered By: Ob geronimodaenzo Barraganomar on 02-26-2023 RBC morphology finding Nom (Bld) N/A [facility] Serum globulin measurement b y calculation (mass/volume)Ordered By: Shruti Bararganomar on 02-26-2023 Globulin (S) [Mass/Vol] 2.1 g/dL Normal [facility] Comment on above: Performed By: #### G LULS #### Point of Care testing , Serum or plasma albumin/glob ulin mass ratioOrdered By: Obgeronimodaenzo Barraganomar on 02-26-2023 Albumin/Globulin [Mass ratio] 1.5 {ratio} Normal [facility] Comment on above: Performed By: #### G LULS #### Point of Care testing , ABO/Rh Retypeon 02-25-2023 ABO/RH Recheck Result Positive Normal [facility] Comment on above: Result Comment: PERF ORMED BY: [facility] [address] [place] [address] PATHOLOGIST MATERIALS ENGINEER ALEJANDRINA EID M.D. Basic Metabolic Panelon 02-07 Anion gap [Moles/Vol] 9.9 mmol/L Normal 6.0-15.0 [facility] Comment on above: Performed By: #### G LULS #### Point of Care testing , Calcium [Mass/Vol] 8.2 mg/dL Low 8.6-10.3 [facility] Comment on above: Performed By: #### G LULS #### Point of Care testing , Chloride [Moles/Vol] 112 mmol/L High 98-107 [facility] Comment on above: Performed By: #### G LULS #### Point of Care testing , CO2 [Moles/Vol] 21.6 mmol/L Normal 21.0-31.0 [facility] Comment on above: Performed By: #### G LULS #### Point of Care testing , Creatinine [Mass/Vol] 2.17 mg/dL High 0.70-1.30 [facility] Comment on above: Performed By: #### G LULS #### Point of Care testing , Creatinine Clr Calc Pharmacy 33.67 Normal [facility] Comment on above: Result Comment: PERF ORMED BY: [address] [place] [address] PATHOLOGIST MATERIALS ENGINEER ALEJANDRINA EID M.D. Performed By: #### G LULS #### Point of Care testing , GFR/1.73 sq M.predicted MDRD (S/P/Bld) [Vol rate/Area] 31.957 mL/min/{1.73_m2} Normal [facility] Comment on above: Performed By: #### G LULS #### Point of Care testing , Glucose [Mass/Vol] 117 mg/dL High 70-100 [facility] Comment on above: Result Comment: [facility] Glucose Reference Range is dependent on time and content of last meal. Glucose of more than 200 mg/dL in a nonstressed, ambulatory subject supports the diagnosis of Diabetes Mellitus. ADA recommended reference range Performed By: #### G LULS #### Point of Care testing , Potassium [Moles/Vol] 3.5 mmol/L Normal 3.5-5.1 [facility] Comment on above: Performed By: #### G LULS #### Point of Care testing , Sodium [Moles/Vol] 140 mmol/L Normal 136-145 [facility] Comment on above: Performed By: #### G LULS #### Point of Care testing , Urea nitrogen [Mass/Vol] 98 mg/dL High 7-25 [facility] Comment on above: Performed By: #### G LULS #### Point of Care testing , Complete Blood Count Auto Di ffon 02-25-2023 Basophils (Bld) [#/Vol] 0.0 10*3/uL Normal 0.0-0.2 [facility] Comment on above: Result Comment: PERF ORMED BY: [facility] [address] [place] [address] PATHOLOGIST MATERIALS ENGINEER ALEJANDRINA EID M.D. Performed By: #### G LULS #### Point of Care testing , Basophils/100 WBC (Bld) 0.1 % Normal . [facility] Comment on above: Performed By: #### G LULS #### Point of Care testing , Eosinophils (Bld) [#/Vol] 0.0 10*3/uL Normal 0.0-0.45 [facility] Comment on above: Performed By: #### G LULS #### Point of Care testing , Eosinophils/100 WBC (Bld) 0.0 % Normal . [facility] Comment on above: Performed By: #### G LULS #### Point of Care testing , Erythrocyte distribution width (RBC) [Ratio] 14.8 % Normal 12.0-14.8 [facility] [facility] Comment on above: Performed By: #### G LULS #### Point of Care testing , Hematocrit (Bld) [Volume fraction] 24.7 % Low 38.8-50.0 [facility] Comment on above: Performed By: #### G LULS #### Point of Care testing , Hemoglobin (Bld) [Mass/Vol] 8.3 g/dL Low 13.0-17.0 [facility] Comment on above: Performed By: #### G LULS #### Point of Care testing , Lymphocytes (Bld) [#/Vol] 1.9 10*3/uL Normal 1.00-4.8 [facility] Comment on above: Performed By: #### G LULS #### Point of Care testing , Lymphocytes/100 WBC (Bld) 14.7 % Normal . [facility] Comment on above: Performed By: #### G LULS #### Point of Care testing , MCH (RBC) [Entitic mass] 28.8 pg Normal 27.5-35.2 [facility] Comment on above: Performed By: #### G LULS #### Point of Care testing , MCV (RBC) [Entitic vol] 85.3 fL Normal 83.5-101 [facility] Comment on above: Performed By: #### G LULS #### Point of Care testing , Mean Corpuscular HGB Conc 33.7 g/dL Normal 32.5-35.6 [facility] Comment on above: Performed By: #### G LULS #### Point of Care testing , Monocytes (Bld) [#/Vol] 0.9 10*3/uL High 0.0-0.8 [facility] Comment on above: Performed By: #### G LULS #### Point of Care testing , Monocytes/100 WBC (Bld) 6.8 % Normal . [facility] Comment on above: Performed By: #### G LULS #### Point of Care testing , Neutrophils (Bld) [#/Vol] 10.3 10*3/uL High 1.8-7.7 [facility] Comment on above: Performed By: #### G LULS #### Point of Care testing , Neutrophils/100 WBC (Bld) 78.4 % Normal . [facility] Comment on above: Performed By: #### G LULS #### Point of Care testing , NRBC% 0.1 /100{WBC} Normal 0-0.5 [facility] Comment on above: Performed By: #### G LULS #### Point of Care testing , Platelet mean volume (Bld) [Entitic vol] 8.9 fL Normal 6.6-10.1 [facility] Comment on above: Performed By: #### G LULS #### Point of Care testing , Platelets (Bld) [#/Vol] 155 10*3/uL Normal 150-450 [facility] Comment on above: Performed By: #### G LULS #### Point of Care testing , RBC (Bld) [#/Vol] 2.90 10*6/uL Low 3.90-5.60 [facility] Comment on above: Performed By: #### G LULS #### Point of Care testing , WBC (Bld) [#/Vol] 13.1 10*3/uL High 4.1-10.5 [facility] Comment on above: Performed By: #### G LULS #### Point of Care testing , ECG 12 lead ECGon 02-25-2023 ECG 12 lead ECG [facility] [place] [address] Electrocardiograph Report Signed Patient: Maury Issa MR#: [id number] : 1950 Acct:[id number] Age/Sex: 72 / M ADM Date: 02/24/23 Loc: Room: [address] [place] [address] Type: ADM IN Attending Dr: Shruti Savage MD Ordering Provider: Rachel Jin MD Date of Service: 02/25/23 ECG/ECG 12 lead ECG: cp Copies to: Test Reason : Blood Pressure : / mmHG Vent. Rate : 063 BPM Atrial Rate : 063 BPM P-R Int : 166 ms QRS Dur : 092 ms QT Int : 440 ms P-R-T Axes : 066 044 041 degrees QTc Int : 450 ms Normal sinus rhythm Normal ECG No previous ECGs available Confirmed by NIGHAT KNOTT [facility] ([id number]) on 02/27/2023 10:42:24 AM Referred By: Electronically Signed By:HAMLET REYES MD, FACC Transcribed By: MUS Signed By Christian Reyes MD 02/27/23 1042 Normal [facility] Glucose Poct Glucometerson 1 Glucose [Mass/Vol] 139 mg/dL Normal [facility] Comment on above: Result Comment: [facility] Glucose Reference Range is dependent on time and content of last meal. Glucose of more than 200 mg/dL in a nonstressed, ambulatory subject supports the diagnosis of Diabetes Mellitus. PERFORMED BY: [address] [address] PATHOLOGIST MATERIALS ENGINEER ALEJANDRINA EID M.D. Performed By: #### G LULS #### Point of Care testing , Glucose [Mass/Vol] 170 mg/dL Normal [facility] Comment on above: Result Comment: [facility] Glucose Reference Range is dependent on time and content of last meal. Glucose of more than 200 mg/dL in a nonstressed, ambulatory subject supports the diagnosis of Diabetes Mellitus. PERFORMED BY: [address] [place] [address] PATHOLOGIST MATERIALS ENGINEER ALEJANDRINA EID M.D. Performed By: #### G LULS #### Point of Care testing , Glucose [Mass/Vol] 150 mg/dL Normal [facility] Comment on above: Result Comment: [facility] Glucose Reference Range is dependent on time and content of last meal. Glucose of more than 200 mg/dL in a nonstressed, ambulatory subject supports the diagnosis of Diabetes Mellitus. PERFORMED BY: [address] [place] [address] PATHOLOGIST MATERIALS ENGINEER ALEJANDRINA EID M.D. Performed By: #### G LULS #### Point of Care testing , Glucose [Mass/Vol] 177 mg/dL Normal [facility] Comment on above: Result Comment: [facility] Glucose Reference Range is dependent on time and content of last meal. Glucose of more than 200 mg/dL in a nonstressed, ambulatory subject supports the diagnosis of Diabetes Mellitus. PERFORMED BY: [address] [place] [address] PATHOLOGIST MATERIALS ENGINEER ALEJANDRINA EID M.D. Performed By: #### G LULS #### Point of Care testing , Hemoglobin and Hematocriton 02-25-2023 Hematocrit (Bld) [Volume fraction] 26.9 % Low 38.8-50.0 [facility] Comment on above: Result Comment: PERF ORMED BY: [place] [address] PATHOLOGIST MATERIALS ENGINEER ALEJANDRINA EID M.D. Performed By: #### H H #### [address] Hemoglobin (Bld) [Mass/Vol] 9.3 g/dL Low 13.0-17.0 [facility] Comment on above: Performed By: #### H H #### [address] Hematocrit (Bld) [Volume fraction] 21.4 % Low 38.8-50.0 [facility] Comment on above: Result Comment: PERF ORMED BY: [place] [address] PATHOLOGIST MATERIALS ENGINEER ALEJANDRINA EID M.D. Performed By: #### G LULS #### Point of Care testing , Hemoglobin (Bld) [Mass/Vol] 7.3 g/dL Low 13.0-17.0 [facility] Comment on above: Performed By: #### G LULS #### Point of Care testing , Hematocrit (Bld) [Volume fraction] 26.1 % Low 38.8-50.0 [facility] Comment on above: Result Comment: PERF ORMED BY: [place] [address] PATHOLOGIST MATERIALS ENGINEER ALEJANDRINA EID M.D. Performed By: #### G LULS #### Point of Care testing , Hemoglobin (Bld) [Mass/Vol] 8.7 g/dL Low 13.0-17.0 [facility] Comment on above: Performed By: #### G LULS #### Point of Care testing , LeukoReduced RBCon LeukoReduced RBC TRANSFUSED 02/25/23 0243 Normal [facility] Troponin I High Sensitivityo n 02-25-2023 Troponin I High Sensitivity 13.5 pg/mL Normal 0.0-20.0 [facility] Comment on above: Result Comment: PERF ORMED BY: [address] [address] PATHOLOGIST MATERIALS ENGINEER ALEJANDRINA EID M.D. Performed By: #### G LULS #### Point of Care testing , Troponin I High Sensitivity 13.6 pg/mL Normal 0.0-20.0 [facility] Comment on above: Result Comment: PERF ORMED BY: [address] [address] PATHOLOGIST MATERIALS ENGINEER ALEJANDRINA EID M.D. Performed By: #### G LULS #### Point of Care testing , Troponin I.cardiac [Mass/vol ume] in Serum or Plasma by Detection limit <= 0.01 ng/Ordered By: Rachel Jin on 02-25-2023 Troponin I.cardiac DL <= 0.01 ng/mL [Mass/Vol] 13.5 pg/mL 0.0-20.0 [facility] Type and Screenon 02-25-2023 ABO and Rh group Nom (Bld) Blood group AB Rh(D) positive Normal [facility] Comment on above: Order Comment: Trans fuse now? Y Number of units to transfuse now? 2 Transfuse now? Y Number of units to transfuse now? 2 Result Comment: PERF ORMED BY: [address] [address] PATHOLOGIST MATERIALS ENGINEER ALEJANDRINA EID M.D. XR knee RT 2Von 02-25-2023 XR knee RT 2V [facility] Main [address] [address] XRay Report Signed Patient: Maury Issa MR#: [id number] : 1950 Acct:[id number] Age/Sex: 72 / M ADM Date: 02/24/23 Loc: Room: [address] [place] [address] Type: ADM IN Attending Dr: Shruti Savage MD Copies to: MD Rachel Wynn MD Ordering Provider: Rachel Jin MD Date of Service: 02/25/23 XR/XR knee RT 2V: fell on knee - previous knee replacement 2 views RIGHT knee plain film COMPARISON: None HISTORY: Fell injuring RIGHT knee ACUTE FINDINGS: None DEGENERATIVE CHANGE: Unremarkable SOFT TISSUE FINDINGS: Unremarkable JOINT EFFUSION: None POSTOP CHANGES: No hardware failure loosening. BONE MINERALIZATION: Adequate XR/XR knee RT 2V IMPRESSION: Uncomplicated RIGHT knee arthroplasty. No acute fracture. Impression dictated by: Riki Rider M.D.02/25/2023 12:31 PM Dictation Location: [place] [address] Transcribed By: [facility] 02/25/23 1231 Dictated By: Riki Rider DO 02/25/23 1230 Signed By: 02/25/23 1231 Normal [facility] Complete Blood Count Auto Di ffon 02-24-2023 Basophils (Bld) [#/Vol] 0.0 10*3/uL Normal 0.0-0.2 [facility] Comment on above: Result Comment: PERF ORMED BY: [facility] [address] [place] [address] PATHOLOGIST MATERIALS ENGINEER ALEJANDRINA EID M.D. Performed By: #### G LULS #### Point of Care testing , Basophils/100 WBC (Bld) 0.1 % Normal . [facility] Comment on above: Performed By: #### G LULS #### Point of Care testing , Eosinophils (Bld) [#/Vol] 0.0 10*3/uL Normal 0.0-0.45 [facility] Comment on above: Performed By: #### G LULS #### Point of Care testing , Eosinophils/100 WBC (Bld) 0.0 % Normal . [facility] Comment on above: Performed By: #### G LULS #### Point of Care testing , Erythrocyte distribution width (RBC) [Ratio] 14.6 % Normal 12.0-14.8 [facility] Comment on above: Performed By: #### G LULS #### Point of Care testing , Hematocrit (Bld) [Volume fraction] 20.4 % Low 38.8-50.0 [facility] Comment on above: Performed By: #### G LULS #### Point of Care testing , Hemoglobin (Bld) [Mass/Vol] 7.0 g/dL Low 13.0-17.0 [facility] Comment on above: Performed By: #### G LULS #### Point of Care testing , Lymphocytes (Bld) [#/Vol] 1.3 10*3/uL Normal 1.00-4.8 [facility] Comment on above: Performed By: #### G LULS #### Point of Care testing , Lymphocytes/100 WBC (Bld) 9.6 % Normal . [facility] Comment on above: Performed By: #### G LULS #### Point of Care testing , MCH (RBC) [Entitic mass] 29.1 pg Normal 27.5-35.2 [facility] Comment on above: Performed By: #### G LULS #### Point of Care testing , MCV (RBC) [Entitic vol] 84.8 fL Normal 83.5-101 [facility] Comment on above: Performed By: #### G LULS #### Point of Care testing , Mean Corpuscular HGB Conc 34.3 g/dL Normal 32.5-35.6 [facility] Comment on above: Performed By: #### G LULS #### Point of Care testing , Monocytes (Bld) [#/Vol] 0.6 10*3/uL Normal 0.0-0.8 [facility] Comment on above: Performed By: #### G LULS #### Point of Care testing , Monocytes/100 WBC (Bld) 4.5 % Normal . [facility] Comment on above: Performed By: #### G LULS #### Point of Care testing , Neutrophils (Bld) [#/Vol] 11.7 10*3/uL High 1.8-7.7 [facility] Comment on above: Performed By: #### G LULS #### Point of Care testing , Neutrophils/100 WBC (Bld) 85.8 % Normal . [facility] Comment on above: Performed By: #### G LULS #### Point of Care testing , NRBC% 0.0 /100{WBC} Normal 0-0.5 [facility] Comment on above: Performed By: #### G LULS #### Point of Care testing , Platelet mean volume (Bld) [Entitic vol] 8.6 fL Normal 6.6-10.1 [facility] Comment on above: Performed By: #### G LULS #### Point of Care testing , Platelets (Bld) [#/Vol] 148 10*3/uL Low 150-450 [facility] Comment on above: Performed By: #### G LULS #### Point of Care testing , RBC (Bld) [#/Vol] 2.41 10*6/uL Low 3.90-5.60 [facility] Comment on above: Performed By: #### G LULS #### Point of Care testing , WBC (Bld) [#/Vol] 13.6 10*3/uL High 4.1-10.5 [facility] Comment on above: Performed By: #### G LULS #### Point of Care testing , Capillary blood glucose stephanie urement by glucometer (mass/volume)Ordered By: Esteban Steward on 02-18-2023 Glucose [Mass/Vol] 99 mg/dL Normal [facility] Comment on above: Random Glucose Refer ence Range is dependent on time and content of last meal. Glucose of more than 200 mg/dL in a nonstressed, ambulatory subject supports the diagnosis of Diabetes Mellitus. Result Comment: [facility] Glucose Reference Range is dependent on time and content of last meal. Glucose of more than 200 mg/dL in a nonstressed, ambulatory subject supports the diagnosis of Diabetes Mellitus. PERFORMED BY: [facility] [address] [place] [address] PATHOLOGIST MATERIALS ENGINEER ALEJANDRINA EID M.D. Performed By: #### G LULS #### Point of Care testing , [facility] 02-18-2023 L Specimen: [id number] Received: 02/18/23 Status: EVERETTE Lionel Num: [id number] Spec Type: Surgical Subm Dr: Esteban Steward MD Tissues: A Duodenum - Biopsy (DUODENAL BX) B Stomach - Biopsy/Polyp (ANTRAL POLYP) C STOMACH FOR HP (ANTRAL HP) Procedures: HE/6, Gross/Micro L4/3, H PYLORI, IHC First AB Age/ Patient Sex Location Account Attending Physician Maury Issa/Maryuri [id number] Esteban Steward MD SPEC NUM: [id number] RECD: 02/18/23 STATUS: EVERETTE SOTOMAYOR NUM: [id number] NORA: 02/18/23- [facility] DR: Esteban Steward MD ENTERED: 02/18/23 [facility] DR: SPEC TYPE: Surgical DEPT: S ORDERED: HE/6, Gross/Micro L4/3, H PYLORI, IHC First AB ORDERED: HE/6, Gross/Micro L4/3, H PYLORI, IHC First AB Pathological Diagnosis A. Duodenum, biopsy: - Small intestinal mucosa within normal limits B. Stomach, antrum, polyp, polypectomy: - Hyperplastic polyp - Negative for intestinal metaplasia or dysplasia - Negative for H. pylori (H E stained slides) C. Stomach, antrum, biopsy: - Junctional gastric mucosa with mild chronic nonspecific gastritis - Negative for intestinal metaplasia or dysplasia - Negative for H. pylori (immunohistochemical staining) Note: Appropriate positive control for H. pylori immunostaining reviewed. Specimen: [id number] Received: 02/18/23 Status: EVERETTE Sotomayor Num: [id number] Spec Type: Surgical Subm Dr: Esteban Steward MD Tissues: A Duodenum - Biopsy (DUODENAL BX) B Stomach - Biopsy/Polyp (ANTRAL POLYP) C STOMACH FOR HP (ANTRAL HP) Procedures: HE/6, Gross/Micro L4/3, H PYLORI, IHC First AB Patient: Maury Issa [id number] (Continued) Specimen: [id number] Received: 02/18/23 (Continued) Signed (signature on file) Juan Adams MD 02/22/23 1309 Specimen: [id number] Received: 02/18/23 Status: EVERETTE Sotomayor Num: [id number] Spec Type: Surgical Subm Dr: Esteban Steward MD Tissues: A Duodenum - Biopsy (DUODENAL BX) B Stomach - Biopsy/Polyp (ANTRAL POLYP) C STOMACH FOR HP (ANTRAL HP) Procedures: HE/6, Gross/Micro L4/3, H PYLORI, IHC First AB Patient: Maury Issa [id number] (Continued) Specimen: [id number] Received: 02/18/23 (Continued) Clinical Information Diarrhea, dyspepsia, rule out sprue, rule out H. pylori four IHS Gross Description A. Received in formalin labeled with the patient's name, date of and duodenal biopsy, rule out sprue are two west tissues measuring 0.2 cm and 0.3 cm. Entirely submitted in one cassette labeled A1. B. Received in formalin labeled with the patient's name, date of and antral polyp is one west tissue measuring 0.7 x 0.5 x 0.4 cm. Entirely submitted in one cassette labeled B1. C. Received in formalin labeled with the patient's name, date of and antral biopsy, rule out H. pylori for IHS is one west tissue measuring 0.2 cm. Entirely submitted in one cassette labeled C1. Microscopic Description A. Two H E slides reviewed. The microscopic examination confirms the diagnosis. B. Two H E slides reviewed. The microscopic examination confirms the diagnosis. C. Two H E slides reviewed. The microscopic examination confirms the diagnosis. CPT Codes 08321v2 Specimen: [id number] Received: 02/18/23 Status: EVERETTE Sotomayor Num: [id number] Spec Type: Surgical Subm Dr: Esteban Steward MD Tissues: A Duodenum - Biopsy (DUODENAL BX) B Stomach - Biopsy/Polyp (ANTRAL POLYP) C STOMACH FOR HP (ANTRAL HP) Procedures: HE/6, Gross/Micro L4/3, H PYLORI, IHC First AB Patient: IsrraelMaury gomez [id number] (Continued) ------- (more content not included)... Normal [facility] Lab Reportson 10-31-2022 Lab Reports [id number] Normal [facility] Ambulatory Visit Summaryon 0 10-27-2022 Ambulatory Visit Summary ISRRAELJOSLYN GOMEZALLISON Forte :1950 Visit Date:10/27/2022 Ambulatory Visit Instructions Your Diagnosis BPH with urinary obstruction Elevated PSA Renal cyst Bilateral varicoceles Glucosuria Tests Performed Urnls Dip Stick Auto w/o Microscopy POC 10633 Your Care Team Attending Physician - Ignacio KNOTT, Francisca Jimenez Primary Care Physician - HASEEB KNOTT, MASON Draper This Is Your Medications List Contact prescribing physician if questions or concerns amlodipine apixaban (Eliquis 5 mg oral tablet) atorvastatin carvedilol citalopram clopidogrel (clopidogrel 75 mg Tab) empagliflozin (empagliflozin 25 mg oral tablet) finasteride (finasteride 5 mg Tab) gabapentin (gabapentin 300 mg Cap) insulin glargine (Lantus Solostar Pen 100 units/mL subcutaneous solution) lisinopril (lisinopril 20 mg Tab) nitroglycerin pantoprazole (Pantoprazole [address] Tab) ranolazine (ranolazine 500 mg oral ER Tab) semaglutide (Ozempic) tamsulosin Procedures Performed TRUS - Transrectal ultrasonography (12/24/2019), Knee replacement (10/08/2019), TRUS (transrectal ultrasound) guided cryoablation of prostate (07/03/2019), Cystoscopy (06/19/2019). Discharge Vitals Heart Rate (Peripheral) 65 Blood Pressure 126/88 Height 172 cm Height 68 in Weight 90.5 kg Weight 199.1 lb BMI 30.59 What to do next You Need to Schedule the Following Appointments Follow Up with Ignacio KNOTT, Francisca Jimenez, ROSE MARIE, URO When: Comments: PRN Where: [address] [place] [phone] Medications What How Much When Instructions Unchanged amlodipine 5 Milligram By Mouth Every day Contact prescribing physician if questions or concerns Unchanged apixaban (Eliquis 5 mg oral tablet) 1 Tablets By Mouth 2 times a day Contact prescribing physician if questions or concerns Unchanged atorvastatin 40 Milligram By Mouth Every other day Contact prescribing physician if questions or concerns Unchanged carvedilol By Mouth Contact prescribing physician if questions or concerns Unchanged citalopram 20 Milligram By Mouth Every day Contact prescribing physician if questions or concerns Unchanged clopidogrel (clopidogrel 75 mg Tab) 1 Tablets By Mouth Every day Contact prescribing physician if questions or concerns Unchanged empagliflozin (empagliflozin 25 mg oral tablet) By Mouth Once a day (in the morning) Contact prescribing physician if questions or concerns Unchanged finasteride (finasteride 5 mg Tab) By Mouth Every day Contact prescribing physician if questions or concerns Unchanged gabapentin (gabapentin 300 mg Cap) 1 Capsules By Mouth At bedtime Contact prescribing physician if questions or concerns Unchanged insulin glargine (Lantus Solostar Pen 100 units/ mL subcutaneous solution) Subcutaneous Every day Contact prescribing physician if questions or concerns Unchanged lisinopril (lisinopril 20 mg Tab) 1 Tablets By Mouth Every day Contact prescribing physician if questions or concerns Unchanged nitroglycerin Contact prescribing physician if questions or concerns Unchanged pantoprazole (Pantoprazole [address] Tab) 1 Tablets By Mouth Every day Contact prescribing physician if questions or concerns Unchanged ranolazine (ranolazine 500 mg oral ER Tab) 1 Tablets By Mouth 2 times a day Contact prescribing physician if questions or concerns Unchanged semaglutide (Ozempic) 0.5 Milligram Subcutaneous Every week Contact prescribing physician if questions or concerns Unchanged tamsulosin 0.4 Milligram By Mouth Every day Contact prescribing physician if questions or concerns Test Results Urnls Dip Stick Auto w/o Microscopy POC 19662 (10/27/2022) Bilirubin Urine Dipstick - Negative Blood Urine Dipstick - Trace-intact Glucose Urine Dipstick - 3+ 1000 mg/dl Ketones Urine Dipstick - Negative Leukocytes Urine Dipstick - Negative Nitrite Urine Dipstick - Negative Protein Urine Dipstick - 2+ (100 mg/dl) Specific Cost Urine Dipstick - 1.020 Urine Appearance Urine Dipstick - Clear Urine Color Urine Dipstick - Yellow Urobilinogen Urine Dipstick - Normal 0.2-1 EU/dl pH Urine Dipstick - 6.5 Allergies isosorbide (High blood pressure) Problems Ongoing - Any problem that you are currently receiving treatment for. 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 Impotence Education Materials Prostate Cancer Screening Prostate cancer screening is testing that is d (more content not included)... Normal [facility] Patient Educationon 10-28-19 Patient Education Oncology Prostate Cancer Screening Prostate cancer screening is testing that is done to check for the presence of prostate cancer in men. The prostate gland is a walnut-sized gland that is located below the bladder and in front of the rectum in males. The function of the prostate is to add fluid to semen during ejaculation. Prostate cancer is one of the most common types of cancer in men. Who should have prostate cancer screening? Screening recommendations vary based on age and other risk factors, as well as between the professional organizations who make the recommendations. In general, screening is recommended if: ? You are age 50 to 70 and have an average risk for prostate cancer. You should talk with your health care provider about your need for screening and how often screening should be done. Because most prostate cancers are slow growing and will not cause , screening in this age group is generally reserved for men who have a 10- to 15-year life expectancy. ? You are younger than age 50, and you have these risk factors: ? Having a father, brother, or uncle who has been diagnosed with prostate cancer. The risk is higher if your family member's cancer occurred at an early age or if you have multiple family members with prostate cancer at an early age. ? Being a male who is Black or is of [place] or sub-Saharan descent. In general, screening is not recommended if: ? You are younger than age 40. ? You are between the ages of 40 and 49 and you have no risk factors. ? You are 70 years of age or older. At this age, the risks that screening can cause are greater than the benefits that it may provide. If you are at high risk for prostate cancer, your health care provider may recommend that you have screenings more often or that you start screening at a younger age. How is screening for prostate cancer done? The recommended prostate cancer screening test is a blood test called the prostate-specific antigen (PSA) test. PSA is a protein that is made in the prostate. As you age, your prostate naturally produces more PSA. Abnormally high PSA levels may be caused by: ? Prostate cancer. ? An enlarged prostate that is not caused by cancer (benign prostatic hyperplasia, or BPH). This condition is very common in older men. ? A prostate gland infection (prostatitis) or urinary tract infection. ? Certain medicines such as male hormones (like testosterone) or other medicines that raise testosterone levels. A rectal exam may be done as part of prostate cancer screening to help provide information about the size of your prostate gland. When a rectal exam is performed, it should be done after the PSA level is drawn to avoid any effect on the results. Depending on the PSA results, you may need more tests, such as: ? A physical exam to check the size of your prostate gland, if not done as part of screening. ? Blood and imaging tests. ? A procedure to remove tissue samples from your prostate gland for testing (biopsy). This is the only way to know for certain if you have prostate cancer. What are the benefits of prostate cancer screening? ? Screening can help to identify cancer at an early stage, before symptoms start and when the cancer can be treated more easily. ? There is a small chance that screening may lower your risk of dying from prostate cancer. The chance is small because prostate cancer is a slow-growing cancer, and most men with prostate cancer from a different cause. What are the risks of prostate cancer screening? The main risk of prostate cancer screening is diagnosing and treating prostate cancer that would never have caused any symptoms or problems. This is called overdiagnosisand overtreatment. PSA screening cannot tell you if your PSA is high due to cancer or a different cause. A prostate biopsy is the only procedure to diagnose prostate cancer. Even the results of a biopsy may not tell you if your cancer needs to be treated. Slow-growing prostate cancer may not need any treatment other than monitoring, so diagnosing and treating it may cause unnecessary stress or other side effects. Questions to ask your health care provider ? When should I start prostate cancer screening? ? What is my risk for prostate cancer? ? How often do I need screening? ? What type of screening tests do I need? ? How do I get my test results? ? What do my results mean? ? Do I need treatment? Where to find more information ? The [place] [employer]: www.cancer.org ? [employer]: www.auanet.org Contact a health care provider if: ? You have difficulty urinating. ? You have pain when you urinate or ejaculate. ? You have blood in your urine or semen. ? You have pain in your back or in the area of your prostate. Summary ? Prostate cancer is a common type of cancer in men. The prostate gland is located below the bladder and in front of the rectum. This gland adds flu (more content not included)... 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 Here today for 1yr PSA due to BPH & Elevated PSA. Current PSA 1.43 done 10/18/22, Previous PSA 1.93 done 08/07/21. IPSS 3. PAULO 24 *Tamsulosin 0.4mg QD & Finasteride 5mg QD therapy. Previous PVR 82ml done 04/14/22 Pt has since then been seen in our office on 04/14/22 by Silvia due to Testicular pain, LLQ pain, BPH, Elevated PSA, Renal Cyst & BL Varicoceles. Renal US 10/18/22 CT 09/12/22. Pt had gone to [facility] due to LLQ pain. Dysuria: denies pain or burning Incomplete bladder emptying: denies Hematuria: denies visible blood Frequency: denies Urgency: denies Nocturia: mild intermittent 3x a night, pt has been having diarrhea at night Stream: denies hesitancy, denies weak stream, denies start/stop stream Leaking: denies Post void dripping: sometimes Wearing pads/ Depends: denies Urge incontinence: denies Stress incontinence: denies Incontinence without Sensory Awareness: denies Abdominal pain: denies Flank pain: denies Sexual complaints: denies History of Present Illness Tests reviewed: reviewed UA, PSA, external ct scan, notes and labs I have reviewed the previous health record information and history for this patient from APRIL Mann and Dr. Kothari, and external providers I have reviewed and verified the staff HPI to be accurate for this encounter. There have been no associated fever, chills, flank pain, or blood in the urine. Denies any urinary infections since last encounter. Review of Systems PHQ Score Initial Depression Screen Score: 0 ROS - Provider Constitutional: denies weight loss, denies hot flashes. Eyes: denies eye problems. Gastrointestinal: denies nausea, denies vomiting. Cardiovascular: denies chest pain or angina. Integumentary: no dryness Musculoskeletal: denies musculoskeletal symptoms. ENMT: denies otolaryngeal symptoms. Respiratory: no shortness of breath. Heme/Lymph: denies easy bleeding tendency, denies easy bruising tendency. Psychiatric: no confusion, no anxiety. Genitourinary: See HPI. Physical Exam Vitals & Measurements HR: 65(Peripheral) BP: 126/88 HT: 68 in HT: 172 cm WT: 90.5 kg WT: 199.1 lb BMI: 30.59 General Appearance: alert, no distress, well nourished, well developed male. Genitourinary: Flank Pain: none. Bladder: nonpalpable. Assessment/Plan Patient presented today for follow up of BPH with LUTS, hx of elevated PSA and renal cyst. Due to patient's symptomatic satisfaction on medical therapy, resolution of elevated PSA, and simple renal cyst, pt may follow up prn and resume routine PSA surveillance with PCP. Pt presented to [facility] 09/12/22 for bowel dysfunction. 1. BPH with urinary obstruction (N40.1: Benign prostatic hyperplasia with lower urinary tract symptoms) IPSS 3 (5) Pt is currently taking Tamsulosin 0.4 mg QD and finasteride 5 mg QD. Denies SEs. Pt tolerating medications well and would like to continue Discussed the benefits and risks of outlet procedures if he desires to dc medications or becomes bothered by any side effects. Literature for Rezum and Urolift provided, as he would like to preserve ejaculatory function -He declined scheduled follow up at this time, f/u PRN -Pt to notify us if he desires further treatment of BPH with luts. He understands a cystoscopy would be needed to determine candidacy for either procedure 2. Elevated PSA (R97.20: Elevated prostate specific antigen [PSA]) MRI TRUS fusion Bx 12/24/19 - atypical small acinar glands, no cancer, Prostate Volume - 47cc MRI 11/16/19 PI-RADS 3. RIGO 08/18/21 - 35 gm, no hard nodules. PSA: 06/09/19 - 3.25 12/05/19 - 2.35 08/07/21 - 1.93 10/18/22- 1.43 (2.8-on Finasteride) No longer elevated. Discussed continued surveillance, can be done by PCP -PSA to be monitored by PCP, Dr. Membreno 3. Renal cyst (N28.1: Cyst of kidney, acquired) CT abd/pelvis W/O contrast 02/14/22: No hydronephrosis. Ureters are WNL w/o obstructing calcifications. Cortical-based scarring is present in R kidney. Cysts in left kidney. Urinary bladder unremarkable. CT abd/pelvis w/o con 09/12/22 - Lt renal cyst, small rt renal scarring, no abnormalities Renal US 10/18/22 - Rt kidney has few nonobstructing stones, Lt kidney shows benign-appearing cysts, largest 3.2 cm, as well as nonobstructing stones within inferior pole Discussed indications for continued renal cyst surveillance - simple cysts do not require active surveillance 4. 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 No further action at this time. -Pt to notify us if he develops symptoms 5. Glucosuria (R81: Glycosuria) Pt is diabetic. UA today shows >=1000 mg/dL Glucose Discussed how this contributes to LUTS and bladder decompensation -DM control recommended Follow-up With When Contact Information Ignacio KNOTT, Francisca Jimenez, URL, [facility] [address], [place] [address] (more content not included)... Normal [facility] Comment on above: Result Comment: Elec tronically Signed By: Francisca Pierre MD\.br\Date and Time Signed: 10/27/22 18:26 EDT\.br\Electronically Co-Signed By: Ramya Ghosh\.br\Date and Time Co-Signed: 10/27/22 10:40 EDT ED Note-Physicianon 10-26-19 ED Note-Physician [id number]# 1.00CD:127 Normal [facility] RAD - Ultrasound Reporton RAD - Ultrasound Report [id number]# 1.00CD:127 Normal [facility] AMYLASEon 09-12-2022 Amylase [Catalytic activity/Vol] 101 U/L Normal 25-115 [facility] Comment on above: Performed By: #### A MY, CMP, LIPA #### [facility] [address] [address] [address] Tami Merrill CBC AUTO DIFFon 09-12-2022 BASO # 0.0 103/ul Normal 0.0-0.1 [facility] Comment on above: Performed By: #### C BC ####[facility] [address] [address]DrFlorentin Merrill Basophils/100 WBC (Bld) 0.2 % Normal 0.2-2.[address] [facility] Comment on above: Performed By: #### C BC ####[facility] [address] [address]DrFlorentin Merrill EO # 0.3 103/ul Normal 0.0-0.7 [facility] Comment on above: Performed By: #### C BC ####[facility] [address] [id number]. Tami Merrill Eosinophils/100 WBC (Bld) 3.1 % Normal 0.9-7.0 [facility] Comment on above: Performed By: #### C BC ####[facility] [address] [address]Dr. Tami Merrill Erythrocyte distribution width (RBC) [Ratio] 13.8 % Normal 11.0-15.0 [facility] Comment on above: Performed By: #### C BC ####[facility] Gqsbm[address] [place], [place] [address]Dr. Tami Merrill Hematocrit (Bld) [Volume fraction] 41.9 % Critically low 42.0-54.0 [facility] Comment on above: Performed By: #### C BC ####[facility] [address] [place], [place] [address]Dr. Tami Merrill Hemoglobin (Bld) [Mass/Vol] 14.0 g/dL Normal 14.0-18.0 [facility] Comment on above: Performed By: #### C BC ####[facility] [address]obs[address] [place], [place] [address]Dr. Tami Merrill IG # 0.02 10e3/ul Normal 0.00-0.03 [facility] Comment on above: Performed By: #### C BC ####[facility] Y[address]ds[address] [place], [place] [address]Dr. Tami Merrill IG % 0.2 % Normal 0.0-0.5 [facility] Comment on above: Performed By: #### C BC ####[facility] [address] [place], [place] [address]Dr. Tami Merrill LYMPH # 1.5 103/ul Normal 1.2-3.8 [facility] Comment on above: Performed By: #### C BC ####[facility] Ylogwxpmks[address] [place], [place] [address]Dr. Tami Merrill Lymphocytes/100 WBC (Bld) 18.4 % Critically low 20.5-60.0 [facility] Comment on above: Performed By: #### C BC ####[facility] [address] [id number]. Tami Merrill MANUAL DIFF REQ NO Normal [facility] Comment on above: Performed By: #### C BC ####[facility] [address] [id number]. Brittaniac Merrill MCH (RBC) [Entitic mass] 27.6 pg Normal 25.9-34.0 [facility] Comment on above: Performed By: #### C BC ####[facility] [address] [address]Dr. Tami Garfield MCHC (RBC) [Mass/Vol] 33.4 g/dL Normal 29.9-35.2 [facility] Comment on above: Performed By: #### C BC ####[facility] [address]eav[address] [place], [place] [address]Dr. Tami Merrill MCV (RBC) [Entitic vol] 82.6 fL Normal 80.0-94.[address] [facility] Comment on above: Performed By: #### C BC ####[facility] [address] [place], [place] [address]Dr. Tami Merrill MONO # 0.8 103/ul Normal 0.3-0.8 [facility] Comment on above: Performed By: #### C BC ####[facility] [address] [address]Dr. Tami Merrill Monocytes/100 WBC (Bld) 9.6 % Normal 1.7-12.[address] [facility] Comment on above: Performed By: #### C BC ####[facility] [address] [address]Dr. Tami Merrill NEUT # 5.5 103/ul Normal 1.4-6.5 [facility] Comment on above: Performed By: #### C BC ####[facility] [address] [place], [place] [id number]. Tami Merrill Neutrophils/100 WBC (Bld) 68.5 % Normal 43.0-75.0 [facility] Comment on above: Performed By: #### C BC ####[facility] [address] [place], [place] [address]Us. Tami Merrill Platelet mean volume (Bld) [Entitic vol] 9.6 fL Normal 9.5-13.5 [facility] Comment on above: Performed By: #### C BC ####[facility] [address] [place], [place] [address]Md. Tami Merrill PLT 150 103/ul Normal 150-450 [facility] Comment on above: Performed By: #### C BC ####[facility] [address] [place], [place] [address]Wx. Tami Merrill RBC 5.07 106/ul Normal 4.70-6.10 [facility] Comment on above: Performed By: #### C BC ####[facility] [address] [place], [place] [address]We. Tami Merrill WBC 8.1 103/ul Normal 4.0-11.0 [facility] Comment on above: Performed By: #### C BC ####[facility] [address] [place], [place] [address]Se. Tami Merr[address] CT ABD/PELVIS WO CONon 09-12 CT ABD/PELVIS WO CON EXAM: CT scan of th e abdomen and pelvis without contrast. Dose reduction technique used: Automated exposure control and/or adjustment of the mA and/or kV according to patient size and/or use of iterative reconstruction technique. REASON FOR EXAM: GENERALIZED ABDOMINAL PAIN COMPARISON: CT scan dated 02/14/2022 FINDINGS: Left renal cyst. Small amount of right renal parenchymal scarring. No renal, ureteral or bladder calculi. No hydronephrosis. Negative appendix. No free intraperitoneal air. No free fluid in the abdomen or pelvis. No dilated or thickened loops of small bowel or colon. Liver, pancreas, spleen, bilateral kidneys, and bilateral adrenal glands are otherwise unremarkable within the limitations of noncontrast CT. No lymphadenopathy in the abdomen or pelvis. Remainder unremarkable. IMPRESSION: No acute abnormalities in the abdomen or pelvis. Electronically authenticated by: POPPY WINTER Date: 2022-09-12 07:27 Normal [facility] ER URINE PROFILEon 05-07-202 3 Bilirubin Ql (U) Negative Normal NEGATIVE [facility] Comment on above: Performed By: #### U MICRO, ERUR ####[facility] [address] [address]Dr. Tami Merrill Clarity (U) CLEAR Normal CLEAR [facility] Comment on above: Performed By: #### U MICRO, ERUR ####[facility] [address] [address]Dr. Tami Merrill Color (U) LT. YELLOW Normal YELLOW [facility] Comment on above: Performed By: #### U MICRO, ERUR ####[facility] Jxpuurxrxf[address] [place], [place] [address]Dr. Tami Merrill ERUAHD A micrscopic examination will be performed if indicated. Normal [facility] Comment on above: Performed By: #### U MICRO, ERUR ####[facility] [address]ifxrspf[address] [place], [place] [address]Dr. Tami Merrill Glucose Ql (U) 1000 mg/dl Abnormal NEGATIVE [facility] Comment on above: Performed By: #### U MICRO, ERUR ####[facility] [address] [place], [place] [address]Dr. Tami Merrill Hemoglobin Ql (U) TRACE-INTACT Abnormal NEGATIVE [facility] Comment on above: Performed By: #### U MICRO, ERUR ####[facility] Mvepopzucj[address] [place], [place] [address]Dr. Tami Merrill Ketones Ql (U) Negative Normal NEGATIVE [facility] Comment on above: Performed By: #### U MICRO, ERUR ####[facility] [address] [place], [place] [address]Dr. Tami Merrill LEUKOCYTES Negative Normal NEGATIVE [facility] Comment on above: Performed By: #### U MICRO, ERUR ####[facility] Nkmveuygmj[address] [place], [place] [address]Dr. Tami Merrill Nitrite Ql (U) Negative Normal NEGATIVE [facility] Comment on above: Performed By: #### U MICRO, ERUR ####[facility] U[address]xeszby[address] [place], [place] [address]Dr. Tami Merrill pH (U) 5.0 [pH] Normal 5-9 [facility] Comment on above: Performed By: #### U MICRO, ERUR ####[facility] V[address]iz[address]xwla[address] [place], [place] [address]Dr. Tami Merrill Protein (U) [Mass/Vol] 30 mg/dL Abnormal NEGAT MIKE/ TRACE [facility] Comment on above: Performed By: #### U MICRO, ERUR ####[facility] Fmkvzfmewy[address] [place], [place] [address]Dr. Tami Merrill SPEC GRAVITY 1.020 Normal 1.005-<=1.02 5 [facility] Comment on above: Performed By: #### U MICRO, ERUR ####[facility] Kjuuulujca[address] [place], [place] [address]Dr. Tami Merrill UR MICRO IND INDICATED Normal [facility] Comment on above: Performed By: #### U MICRO, ERUR ####[facility] [address]vuntowes[address] [place], [place] [address]Dr. Tami Merrill Urobilinogen Qn (U) 0.2 {Angela'U}/dL Normal 0.2 - 1. 0 [facility] Comment on above: Performed By: #### U MICRO, ERUR ####[facility] Z[address]stcj[address] [place], [place] [address]Dr. Tami Merrill GI PANEL (PCR)on 09-12-2022 Adenovirus F 40/41 Not detected Normal NOT DETECTED [facility] Comment on above: Performed By: #### G IPANEL ####[facility] Rxdlpzlycj[address] [place], [place] [address]Dr. Tami Merrill Astrovirus Not detected Normal NOT DETECTED [facility] Comment on above: Performed By: #### G IPANEL ####[facility] Ygurmajxft[address] [place], [place] [address]Dr. Tami Merrill C. Diff toxin A/B Not detected Normal NOT DETECTED [facility] Comment on above: Performed By: #### G IPANEL ####[facility] Dvtnlbegie[address] [place], [place] [address]Dr. Tami Merrill Campylobacter Not detected Normal NOT DETECTED [facility] Comment on above: Performed By: #### G IPANEL ####[facility] [address]uzwe[address]eryj[address] [place], [place] [address]Dr. Brittaniac Merrill Cryptosporidium Not detected Normal NOT DETECTED [facility] Comment on above: Performed By: #### G IPANEL ####[facility] [address] [place], [place] [id number]. Brittaniac Merrill Cyclos. Cayetanensis Not detected Normal NOT DETECTED [facility] Comment on above: Performed By: #### G IPANEL ####[facility] [address]ste[address] [place], [place] [address]Dr. Brittaniac Merrill E. Coli O157 Not Applicable Normal Not Applicable [facility] Comment on above: Performed By: #### G IPANEL ####[facility] Jtskf[address] [place], [place] [address]Dr. Brittaniac Merrill E. histolytica Not detected Normal NOT DETECTED [facility] Comment on above: Performed By: #### G IPANEL ####[facility] Xbyuhjrsck[address] [place], [place] [address]Dr. Tami Merrill EAEC Not detected Normal NOT DETECTED [facility] Comment on above: Performed By: #### G IPANEL ####[facility] Vcpmsxlobc[address] [place], [place] [address]Dr. Tami Merrill EIEC Not detected Normal NOT DETECTED [facility] Comment on above: Performed By: #### G IPANEL ####[facility] Ubirehqykz[address] [place], [place] [address]Dr. Tami Merrill EPEC Not detected Normal NOT DETECTED [facility] Comment on above: Performed By: #### G IPANEL ####[facility] Chj[address]vkorc[address] [place], [place] [address]Dr. Tami Merrill ETEC Not detected Normal NOT DETECTED [facility] Comment on above: Performed By: #### G IPANEL ####[facility] [address]ubuokg[address] [place], [place] [address]Dr. Tami Merrill G. Lamblia Not detected Normal NOT DETECTED [facility] Comment on above: Performed By: #### G IPANEL ####[facility] [address] [id number]. Tami Merrill GIPANEL CONTROLS PASSED Normal [facility] Comment on above: Performed By: #### G IPANEL ####[facility] [address] [id number]. Brittaniac Merrill GIPNL JAGUAR HEADER GI PANEL BACTERIA Normal T [facility] Comment on above: Performed By: #### G IPANEL ####[facility] [address] [id number]. Tami Merrill GIPNLHD ECOLI GI PANEL DIARRHEAGENIC E.COLI / SHIGELLA Normal [facility] Comment on above: Performed By: #### G IPANEL ####[facility] [address] [address]Dr. Tami Merrill GIPNLHD INFO SEE BELOW Normal [facility] Comment on above: Result Comment: EAEC - Enteroaggregative E. Coli EPEC- Enteropathogenic E. Coli ETEC- Enterotoxigenic E. Coli lt/st STEC- Shigella-like toxin-producing E. Coli stx1/stx2 EIEC- Shigella/Enteroinvasive E. Coli Performed By: #### G IPANEL ####[facility] [address]chce[address] [place], [place] [address]Dr. Brittaniac Garfield GIPNLHD PARASITES GI PANEL PARASITES Normal [facility] Comment on above: Performed By: #### G IPANEL ####[facility] F[address]cmemwzma[address] [place], [place] [address]Dr. Yiac Merrill GIPNLHD VIRUS GI PANEL VIRUSES Normal [facility] Comment on above: Performed By: #### G IPANEL ####[facility] Ptnxofeoxa[address] [place], [place] [address]Dr. Tami Merrill Norovirus GI/GII Not detected Normal NOT DETECTED [facility] Comment on above: Performed By: #### G IPANEL ####[facility] V[address]rnqioqnh[address] [place], [place] [address]Dr. Tami Merrill P. Shigelloides Not detected Normal NOT DETECTED [facility] Comment on above: Performed By: #### G IPANEL ####[facility] Idrvxuinur[address] [place], [place] [address]Dr. Tami Merrill Rotavirus A Not detected Normal NOT DETECTED [facility] Comment on above: Performed By: #### G IPANEL ####[facility] [address]vjwurzv[address] [place], [place] [address]Dr. Tami Merrill Salmonella Not detected Normal NOT DETECTED [facility] Comment on above: Performed By: #### G IPANEL ####[facility] [address]zqcduds[address] [place], [place] [address]Dr. Tami Merrill Sapovirus Not detected Normal NOT DETECTED [facility] Comment on above: Performed By: #### G IPANEL ####[facility] [address]emtkidf[address] [place], [place] [address]Dr. Tami Merrill STEC Not detected Normal NOT DETECTED [facility] Comment on above: Performed By: #### G IPANEL ####[facility] Yxnvvvmbcf[address] [place], [place] [address]Dr. Tami Merrill Vibrio Not detected Normal NOT DETECTED [facility] Comment on above: Performed By: #### G IPANEL ####[facility] [address]jclfkjo[address] [place], [place] [address]Dr. Tami Merrill Vibrio Cholera Not detected Normal NOT DETECTED [facility] Comment on above: Performed By: #### G IPANEL ####[facility] Xsbsilynsz[address] [place], [place] [address]Dr. Tami Merrill Y. Enterocolitica Not detected Normal NOT DETECTED The [facility] Comment on above: Performed By: #### G IPANEL ####[facility] [address] [place], [place] [address]Dr. Tami Merrill LACTATE/LACTIC ACIDon 2022 Lactate [Moles/Vol] 0.7 mmol/L Normal 0.4-2.0 [facility] Comment on above: Performed By: #### L ACT ####[facility] [address] [place], [place] [address]Dr. Tami Merrill LIPASEon 09-12-2022 Lipase [Catalytic activity/Vol] 270.0 U/L Normal 73.0-393.0 [facility] Comment on above: Performed By: #### A MY, CMP, LIPA #### [facility] [address] [address] [address] Tami Merrill PROF 14(COMP METB)on 023 Albumin [Mass/Vol] 3.9 g/dL Normal 3.4-5.0 [facility] Comment on above: Performed By: #### A MY, CMP, LIPA ####[facility] [address] [address]Dr. Tami Merrill Albumin/Globulin [Mass ratio] 1.0 {ratio} Normal [facility] Comment on above: Performed By: #### A MY, CMP, LIPA ####[facility] [address] [address]Dr. Tami Merrill ALP [Catalytic activity/Vol] 52 U/L Normal 46-116 [facility] Comment on above: Performed By: #### A MY, CMP, LIPA ####[facility] [address] [address]Dr. Taim Merrill ALT [Catalytic activity/Vol] 24 U/L Normal 16-63 [facility] Comment on above: Performed By: #### A MY, CMP, LIPA ####[facility] [address] [id number]. Tami Merrill Anion gap [Moles/Vol] 14.0 mmol/L Normal [facility] Comment on above: Performed By: #### A MY, CMP, LIPA ####[facility] [address] [address]Dr. Tami Merrill AST [Catalytic activity/Vol] 14 U/L Critically low 15-37 [facility] Comment on above: Performed By: #### A MY, CMP, LIPA ####[facility] [address] [address]Dr. Tami Merrill Bilirubin [Mass/Vol] 0.3 mg/dL Normal 0.2-1.0 [facility] Comment on above: Performed By: #### A MY, CMP, LIPA ####[facility] [address] [address]Dr. Tami Merirll Calcium [Mass/Vol] 9.1 mg/dL Normal 8.5-10.1 [facility] Comment on above: Performed By: #### A MY, CMP, LIPA ####[facility] [address] [address]Dr. Tami Merrill Chloride [Moles/Vol] 107 mmol/L Normal 98-107 [facility] Comment on above: Performed By: #### A MY, CMP, LIPA ####[facility] [address] [place], [place] [address]Dr. Tami Merrill CO2 [Moles/Vol] 24.5 mmol/L Normal 21.0-32.0 [facility] Comment on above: Performed By: #### A MY, CMP, LIPA ####[facility] [address] [place], [place] [address]Dr. Tami Merrill Creatinine [Mass/Vol] 2.42 mg/dL Critically high 0.70-1.30 [facility] Comment on above: Performed By: #### A MY, CMP, LIPA ####[facility] [address] [place], [place] [address]Dr. Tami Merrill EGFR-AF LIBYAN 32 mL/min/1.73m2 Critically low >=60 [facility] Comment on above: Performed By: #### A MY, CMP, LIPA ####[facility] [address] [place], [place] [address]Dr. Tami Merrill EGFR-NON AF LIBYAN 27 mL/min/1.73m2 Critically low >=60 [facility] Comment on above: Performed By: #### A MY, CMP, LIPA ####[facility] [address] [place], [place] [address]Dr. Tami Merrill Globulin (S) [Mass/Vol] 3.9 g/dL Normal [facility] Comment on above: Performed By: #### A MY, CMP, LIPA ####[facility] [address] [address]Dr. Tami Merrill Glucose [Mass/Vol] 107 mg/dL Critically high 74-[address] [facility] Comment on above: Performed By: #### A MY, CMP, LIPA ####[facility] [address] [address]Dr. Tami Merrill Potassium [Moles/Vol] 3.6 mmol/L Normal 3.5-5.1 [facility] Comment on above: Performed By: #### A MY, CMP, LIPA ####[facility] [address] [place], [place] [address]Dr. Tami Merrill Protein [Mass/Vol] 7.8 g/dL Normal 6.4-8.2 [facility] Comment on above: Performed By: #### A MY, CMP, LIPA ####[facility] [address] [place], [place] [address]Dr. Tami Merrill Sodium [Moles/Vol] 142 mmol/L Normal 136-145 [facility] Comment on above: Performed By: #### A MY, CMP, LIPA ####[facility] [address] [place], [place] [address]Dr. Tami Merrill Urea nitrogen [Mass/Vol] 38.0 mg/dL Critically high 7.0-18.0 [facility] Comment on above: Performed By: #### A MY, CMP, LIPA ####[facility] [address] [place], [place] [address]Dr. Tami Merrill Urea nitrogen/Creatinine [Mass ratio] 15.7 mg/mg Normal [facility] Comment on above: Performed By: #### A MY, CMP, LIPA ####[facility] [address] [place], [place] [address]Dr. Tami Merrill URINE MICROSCOPIC ONLYon BACTERIA NONE SEEN Normal NONE SEEN [facility] Comment on above: Performed By: #### U MICRO, ERUR ####[facility] [address] [address]Dr. Tami Merrill Bacteria identified Cx Nom (U) NOT INDICATED Normal [facility] Comment on above: Performed By: #### U MICRO, ERUR ####[facility] [address] [address]Dr. Tami Merrill CAST NONE SEEN Normal NONE SEEN [facility] Comment on above: Performed By: #### U MICRO, ERUR ####[facility] [address] [address]Dr. Tami Merrill Crystals LM Nom (Urine sed) NONE SEEN Normal NONE SEEN [facility] Comment on above: Performed By: #### U MICRO, ERUR ####[facility] [address] [address]Dr. Tami Merrill Epithelial cells LM Ql (Urine sed) NONE SEEN Normal NONE SEEN /RARE [facility] Comment on above: Performed By: #### U MICRO, ERUR ####[facility] [address] [address]Dr. Tami Merrill MUCOUS NONE SEEN Normal NONE SEEN [facility] Comment on above: Performed By: #### U MICRO, ERUR ####[facility] [address] [address]Dr. Tami Merrill RBC 0-2 Normal 0-2 [facility] Comment on above: Performed By: #### U MICRO, ERUR ####[facility] [address] [address]Dr. Tami Merrill WBC NONE SEEN Normal NONE SEEN [facility] Comment on above: Performed By: #### U MICRO, ERUR ####[facility] [address] [address]DrFlorentin Merrill METHYLMALONIC ACID (MMA)on 0 09-01-2022 Methylmalonic Acid, Serum 240 nmol/L Normal 0-378 [facility] Comment on above: Performed By: #### WINNIE Draper MP #### [facility] [address] [address] [address] Tami Merrill HOMOCYSTEINEon 08-28-2022 Homocyst(e)ine, Plasma 18.8 umol/L Critically high 0.0-17. 2 [facility] Comment on above: Performed By: #### B WINNIE MC #### [facility] [address] [place], [place] [address] Dr. Tami Merrill VIT B12 AND FOLATEon 023 Cobalamin (Vitamin B12) [Mass/Vol] 466.0 pg/mL Normal 193.0-986.0 [facility] Comment on above: Performed By: #### B MP, HSTROPN #### [facility] [address] [address] [address] Tami Merrill FOLATE 12.70 ng/mL Normal 8.60-58.90 [facility] Comment on above: Performed By: #### B MP, HSTROPN #### [facility] [address] [address] [address] Tami Merrill MRI FOOT RT WO CONon 023 MRI FOOT RT WO CON HISTORY: Pain in the arch of the right foot. Evaluate for spontaneous rupture of extensor tendon of right foot. MRI FOOT RT WO CON: 07/06/2022 9:23 AM EST COMPARISON: None. TECHNIQUE: Multiplanar, multisequence MRI images of the right foot were obtained without contrast. FINDINGS: Several images are degraded by motion artifact. The Lisfranc ligament complex appears grossly intact. There is a hallux valgus deformity with a bunion complex along the medial aspect of the first metatarsal head. There appear to be at least mild degenerative changes of the first MTP joint and first metatarsal-sesamoid joints. The bone marrow signal intensity appears age appropriate. At the edge of the oqfvu-fd-duuj on the sagittal images there is evidence of a probable 1.2 cm osteochondral defect of the medial talar dome with a moderate amount of underlying bone marrow edema. This is incompletely evaluated. There appear to be mild degenerative changes of the calcaneocuboid joint. The visualized major ligaments of the ankle appear grossly intact. There is evidence of a rupture of the anterior tibialis tendon from its insertion and the tendon is retracted proximally 3.5 cm at the level of the talar head. The other visualized tendons appear grossly within normal limits. IMPRESSION: 1. There is a rupture of the anterior tibialis tendon from its insertion with tendon retraction of approximately 3.5 cm. 2. At the edge of the anqse-ta-klke there is evidence of a probable 1.2 cm osteochondral defect of the medial talar dome with a moderate amount of underlying bone marrow edema. The entirety of this finding is not included in the cjizg-ka-gwes. If it will change clinical management, an MRI of the ankle could be obtained for further evaluation. Electronically authenticated by: GHULAM LATIF Date: 2022-07-07 08:20 Normal [facility] PROF CHEM 8 (BAS METB)on Anion gap [Moles/Vol] 12.0 mmol/L Normal [facility] Comment on above: Performed By: #### B MP, HSTROPN #### [facility] [address] [place] [address] Dr. Tami Merrill Calcium [Mass/Vol] 8.9 mg/dL Normal 8.5-10.1 [facility] Comment on above: Performed By: #### B JESUSITA, HSTROPN #### [facility] [address] [place] [address] Dr. Tami Merrill Chloride [Moles/Vol] 103 mmol/L Normal 98-107 [facility] Comment on above: Performed By: #### B JESUSITA, HSTROPN #### [facility] [address] [place] [address] Dr. Tami Merrill CO2 [Moles/Vol] 28.4 mmol/L Normal 21.0-32.0 [facility] Comment on above: Performed By: #### B JESUSITA, HSTROPN #### [facility] [address] [place] [address] Dr. Tami Merrill Creatinine [Mass/Vol] 1.95 mg/dL Critically high 0.70-1.30 [facility] Comment on above: Performed By: #### B MP, HSTROPN #### [facility] [address] [place] [address] Dr. Tami Merrill EGFR-AF LIBYAN 42 mL/min/1.73m2 Critically low >=60 [facility] Comment on above: Performed By: #### B MP, HSTROPN #### [facility] [address] [place] [address] Dr. Tami Merrill EGFR-NON AF LIBYAN 34 mL/min/1.73m2 Critically low >=60 [facility] Comment on above: Performed By: #### B JESUSITA, HSTROPN #### [facility] [address] [address] [address] Tami Merrill Glucose [Mass/Vol] 127 mg/dL Critically high 74-106 [facility] Comment on above: Performed By: #### B JESUSITA, HSTROPN #### [facility] [address] [address] [address] Tami Merrill Potassium [Moles/Vol] 4.4 mmol/L Normal 3.5-5.1 [facility] Comment on above: Performed By: #### B JESUSITA, HSTROPN #### [facility] [address] [address] [address] Tami Merrill Sodium [Moles/Vol] 139 mmol/L Normal 136-145 [facility] Comment on above: Performed By: #### B JESUSITA, HSTROPN #### [facility] [address] [address] [address] Tami Merrill Urea nitrogen [Mass/Vol] 33.0 mg/dL Critically high 7.0-18.0 [facility] Comment on above: Performed By: #### B JESUSITA, HSTROPN #### [facility] [address] [address] [address] Tami Merrill Urea nitrogen/Creatinine [Mass ratio] 16.9 mg/mg Normal [facility] Comment on above: Performed By: #### B JESUSITA, HSTROPN #### [facility] [address] [address] [address] Tami Merrill Consultation Noteon 04-15-20 Consultation Note [id number] #1.00CD:127 Normal [facility] ED Note-Physicianon 04-15-20 ED Note-Physician [id number] #1.00CD:127 Normal [facility] ED Note-Physician [id number] #1.00CD:127 Normal [facility] Lab Reportson 04-15-2022 Lab Reports [id number] #1.00CD:127 Normal [facility] Lab Reports [id number] #1.00CD:127 Normal [facility] Lab Reports [id number] #1.00CD:127 Normal [facility] RAD - CT Reporton 04-15-2022 RAD - CT Report [id number] #1.00CD:127 [facility] RAD - CT Report [id number] #1.00CD:127 Normal [facility] RAD - Ultrasound Reporton RAD - Ultrasound Report [id number] #1.00CD:127 [facility] RAD - Ultrasound Report [id number] #1.00CD:127 [facility] Screenson 04-15-2022 Screens [id number] #1.00CD:127 [facility] Ambulatory Visit Summaryon 1 06-15-2021 Ambulatory Visit Summary SPMAURY HANKS Jann :1950 Visit Date:04/14/2022 Ambulatory Visit Instructions Your Diagnosis BPH with urinary obstruction Elevated PSA Bilateral varicoceles Renal cyst Tests Performed Urnls Dip Stick Auto w/o Microscopy POC 54503 US Renal -- Results Pending -- Please visit your patient portal for your results or contact your primary care physician. Your Care Team Attending Physician - Floridalma Heredia Primary Care Physician - HASEEB KNOTT, MASON Draper This Is Your Medications List amlodipine apixaban (Eliquis 5 mg oral tablet) atorvastatin carvedilol chlorthalidone citalopram empagliflozin (empagliflozin 25 mg oral tablet) finasteride finasteride (finasteride 5 mg Tab) gabapentin (gabapentin 300 mg Cap) insulin glargine (Lantus Solostar Pen 100 units/mL subcutaneous solution) liraglutide (Victoza) lisinopril (lisinopril 10 mg Tab) methocarbamol (methocarbamol 750 mg Tab) pantoprazole (Pantoprazole [address] Tab) tamsulosin Procedures Performed TRUS - Transrectal ultrasonography (12/24/2019), Knee replacement (10/08/2019), TRUS (transrectal ultrasound) guided cryoablation of prostate (07/03/2019). Discharge Vitals Heart Rate (Peripheral) 64 Blood Pressure 135/100 Height 172 cm Height 68 in Weight 91.5 kg Weight 201.3 lb BMI 30.93 What to do next Scheduled Follow-Up Appointments Tuesday 8:00 AM EDT With: Taye Johnson MD, Maury Albarran Where: [facility] Urology Office/Clinic Noteon 04-14-2022 Urology Office/Clinic Note Chief Complaint testicular pain and left lower abd pain (now resolved) HPI Staff Pt here today for recent testicular pain and left lower abd pain (now resolved). Had been evaluated at [facility] ER and by PCP. Was Tx'd w/ ABX and Sx subsequently resolved. Scrotal US done 02/14/22 shows unremarkable testes and epididymides and bilateral varicoceles. Previous DX: atypical small acinar proliferation of prostate, BPH with urinary obstruction, dysuria, elevated PSA, flank pain, frequent urination, gross hematuria, incomplete bladder emptying, microhematuria, nocturia, post-void dribbling, urge incontinence, urinary urgency, weak urinary stream. MRI fusion TRUS Bx done 12/24/19. PVR today is 82 ml. IPSS SCORE today is 5. Dysuria: denies pain and burning Incomplete bladder emptying: only in the mornings Hematuria: denies, UA today shows TRACE LYSED Frequency: every couple hours Urgency: denies Nocturia: 3x a night Stream: denies hesitancy, strong stream Leaking: denies Post void dripping: denies Wearing pads/ Depends: denies Urge incontinence: denies Stress incontinence: denies Incontinence without Sensory Awareness: denies Abdominal pain: denies Flank pain: denies Sexual complaints: denies History of Present Illness CC: Mid Feb 2022 right after urinating felt like someone kicked him in the balls. This was in Feb 2022. Indicates he went to ER and was kept for observation and reports being told he had a urinary tract infection (Cx subsequently NEG). Also had a hard time urinating at that time. Was also having LLQ pain and bilateral LBP. Was sharp pain. Denies associated visible blood in urine, fever, chills, N/V, constipation, diarrhea, rectal and perineal pressure and pain. Denies Hx of hernia and denies abd and inguinal bulging. When had Sx left testicle/scrotal area was swollen. Also says it was a little red. Denies having genital redness, swelling, pain/tenderness today. Denies associated injury. Was Tx'd w/ 21 days of ABX TID. 1 week after finishing ABX Sx completely resolved. Pt doesn't recall the name of the ABX. Had been evaluated by ER and PCP for his complaints. I don't have notes from PCP and I don't have ER report. I do have some test results as noted below in A/P. Staff HPI reviewed and agree. See staff HPI. Review of Systems PHQ Score Initial Depression Screen Score: 0 See HPI. Physical Exam Vitals & Measurements HR: 64(Peripheral) BP: 135/100 HT: 68 in HT: 172 cm WT: 91.5 kg WT: 201.3 lb BMI: 30.93 General appearance: Awake, alert, NAD, well-developed, well-nourished HEENT: Head is NC/AT Chest/Lungs: no conversational dyspnea, respirations non-labored Cardiovascular: no cyanosis or edema Abdomen: soft, TTP RUQ but otherwise non-tender, non-distended, no mass or organomegaly, no rigidity : No inguinal hernia noted standing or supine. Normally formed penis, scrotum, testicles, epididymides, and spermatic cords. Non-TTP. Genitalia w/o erythema, edema, drainage, lesions, rash or mass. No visible or palpable varicocele. Urethral opening patent w/o drainage. Bladder non-palpable. No flank tenderness. Musculoskeletal: All 4 extremities intact. Able to move all 4 extremities. Skin: warm and dry Lymph nodes: no palpable inguinal nodes, no cervical adenopathy Neurological: Oriented to person, place, time, and situation. Thought processes logical. Interaction appropriate for setting. Seems to be in a euthymic mood. No gross motor deficit. Assessment/Plan UA today - >=1000 mg/dL glucose, tract-lysed blood, neg WBC, neg nitrite, protein 30 mg/dL. Denies visible blood in urine. BS in AM has been 100-150s per Pt. Discussed diabetics at increased risk for infection, robert uncontrolled diabetes. Glucosuria discussed w/ Pt. Does take empagliflozin so this can contribute to glucosuria. Glucose 121 02/15/22. Proteinuria discussed w/ Pt. 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 Honeycutt, [facility]). CT abd/pelvis W/O contrast 02/14/22: No hydronephrosis. Ureters are WNL w/o obstructing calcifications. Cortical-based scarring is present in R kidney. Cysts in left kidney. Urinary tract stones not noted. Urinary bladder unremarkable. Scrotal US 02/14/22: Unremarkable testes and epididymides. Bilateral varicoceles. No hydrocele. UA 02/14/22 - trace-intact blood, trace WBC, + nitrite, >1000 glucose, protein trace, RBC 2-5, WBC 75-100, large bacteria. Urine Cx 02/14/22 - NEG. 1. Testicular pain (N50.819: Testicular pain, unspecified) Reports having immediate onset of testicular/scrotal pain right after urinating, this occurring mid Feb 2022. Also had associated LLQ pain. This has resolved since being Tx'd w/ ABX for 21 days. Pt can't say what ABX he was Tx'd w/. Pt was evaluated and Tx'd elsewhere for this and I don't have all records to review at time of OV. Will have staff obtain associated ER report and records from PCP. Pt reportedly went to [facility] ER and PCP for eval of his c (more content not included)... Normal [facility] Comment on above: Result Comment: Elec tronically Signed By: Michelle CHEN, Floridalma Bourne\.br\Date and Time Signed: 12/07/22 19:48 EST CULTURE URINEon 10-12-2022 CULTURE URINE Isolate 1 Escherichia coli >100,000 cfu/mL of ORGANISM 1 Escherichia coli ANTIBIOTIC M.I.C RX STATUS Ampicillin 8 S F Ampicillin/Sulbactam 8 S F Piperacillin/Tazobac dorantes <=4 S F Cefazolin <=4 S F Ceftazidime <=1 S F Ceftriaxone <=1 S F Ertapenem <=0.5 S F Imipenem <=0.25 S F Amikacin <=2 S F Gentamicin <=1 S F Tobramycin <=1 S F Ciprofloxacin <=0.25 S F Levofloxacin <=0.12 S F Nitrofurantoin <=16 S F Trimethoprim/Sulfame thoxazole <=20 S F Normal [facility] Comment on above: Performed By: #### U RCX ####[facility] [address] [place], [place] [address]Dr. Tami Merrill CBC AUTO DIFFon 02-15-2022 BASO # 0.0 103/ul Normal 0.0-0.1 [facility] Comment on above: Performed By: #### C BC ####[facility] [address] [place], [place] [address]Dr. Tami Merrill Basophils/100 WBC (Bld) 0.3 % Normal 0.2-2.[address] [facility] Comment on above: Performed By: #### C BC ####[facility] [address] [place], [place] [address]Dr. Tmai Merrill EO # 0.2 103/ul Normal 0.0-0.7 [facility] Comment on above: Performed By: #### C BC ####[facility] [address] [place], [place] [address]Dr. Tami Merrill Eosinophils/100 WBC (Bld) 1.6 % Normal 0.9-7.0 [facility] Comment on above: Performed By: #### C BC ####[facility] [address] [place], [place] [address]Dr. Tami Merrill Erythrocyte distribution width (RBC) [Ratio] 13.9 % Normal 11.0-15.0 [facility] Comment on above: Performed By: #### C BC ####[facility] [address] [address]Dr. Tami Merrill Hematocrit (Bld) [Volume fraction] 37.9 % Critically low 42.0-54.0 [facility] Comment on above: Performed By: #### C BC ####[facility] [address] [address]Dr. Brittaniac Merrill Hemoglobin (Bld) [Mass/Vol] 12.1 g/dL Critically low 14.0-18.0 [facility] Comment on above: Performed By: #### C BC ####[facility] [address] [place], [place] [address]Dr. Brittaniac Merrill IG # 0.05 10e3/ul Critically high 0.00-0.03 [facility] [place] [facility] Comment on above: Performed By: #### C BC ####[facility] [address] [place], [place] [address]Dr. Tami Merrill IG % 0.4 % Normal 0.0-0.5 [facility] Comment on above: Performed By: #### C BC ####[facility] [address] [place], [place] [address]Dr. Brittaniac Merrill LYMPH # 1.6 103/ul Normal 1.2-3.8 [facility] Comment on above: Performed By: #### C BC ####[facility] [address] [place], [place] [address]Dr. Tami Merrill Lymphocytes/100 WBC (Bld) 14.3 % Critically low 20.5-60.0 [facility] Comment on above: Performed By: #### C BC ####[facility] Gmb[address] [place], [place] [address]Dr. Tami Merrill MANUAL DIFF REQ NO Normal [facility] Comment on above: Performed By: #### C BC ####[facility] [address] [address]Dr. Tami Merrill MCH (RBC) [Entitic mass] 26.7 pg Normal 25.9-34.0 [facility] Comment on above: Performed By: #### C BC ####[facility] [id number]. Tami Merrill MCHC (RBC) [Mass/Vol] 31.9 g/dL Normal 29.9-35.2 [facility] Comment on above: Performed By: #### C BC ####[facility] [address] [id number]. Tami Merrill MCV (RBC) [Entitic vol] 83.7 fL Normal 80.0-94.[address] [facility] Comment on above: Performed By: #### C BC ####[facility] [address] [id number]. aTmi Merrill MONO # 1.1 103/ul Critically high 0.3-0.8 [facility] Comment on above: Performed By: #### C BC ####[facility] [facility] [address] [place] [address]Dr. Tami Merrill Monocytes/100 WBC (Bld) 9.5 % Normal 1.7-12.[address] [facility] Comment on above: Performed By: #### C BC ####[facility] [address] [place], [place] [id number]. Tami Merrill NEUT # 8.5 103/ul Critically high 1.4-6.5 [facility] Comment on above: Performed By: #### C BC ####[facility] [address] [place], [place] [id number]. Tami Merrill Neutrophils/100 WBC (Bld) 73.9 % Normal 43.0-75.0 [facility] Comment on above: Performed By: #### C BC ####[facility] [address] [place], [place] [id number]. Tami Merrill Platelet mean volume (Bld) [Entitic vol] 10.3 fL Normal 9.5-13.5 [facility] Comment on above: Performed By: #### C BC ####[facility] [address] [place] [id number]. Tami Merrill PLT 137 103/ul Critically low 150-450 [facility] Comment on above: Performed By: #### C BC ####[facility] [address] [place], [place] [address]Fp. Tami Merrill RBC 4.53 106/ul Critically low 4.70-6.10 [facility] Comment on above: Performed By: #### C BC ####[facility] [address] [place], [place] [address]Us. Tami Merrill WBC 11.5 103/ul Critically high 4.0-11.0 [facility] Comment on above: Performed By: #### C BC ####[facility] [address] [place], [place] [address]Yr. Tami Merrill CULTURE URINEon 02-15-2022 CULTURE URINE Culture Observations: NO GROWTH. Normal [facility] Comment on above: Performed By: #### U RCX ####[facility] [address] [place] [address]Dr. Tami Merrill POINT OF CARE GLUCOSEon 02-06 Glucose [Mass/Vol] 135 mg/dL Critically high 74-[address] [facility] Comment on above: Performed By: #### B JESUSITA HSTROPN #### [facility] [address] [address] [address] Tami Merrill Glucose [Mass/Vol] 133 mg/dL Critically high 74-[address] [facility] Comment on above: Performed By: #### P OCGLUC #### [facility] [address] [address] [address] Tami Merrill PROF 14(COMP METB)on 022 Albumin [Mass/Vol] 3.4 g/dL Normal 3.4-5.0 [facility] Comment on above: Performed By: #### B JESUSITA HSTROPN #### [facility] [address] [address] [address] Tami Merrill Albumin/Globulin [Mass ratio] 1.0 {ratio} Normal [facility] Comment on above: Performed By: #### B JESUSITA HSTROPN #### [facility] [address] [address] [address] Tami Merrill ALP [Catalytic activity/Vol] 40 U/L Critically low 46-116 [facility] Comment on above: Performed By: #### B JESUSITA HSTROPN #### [facility] [address] [place] [address] Dr. Tami Merrill ALT [Catalytic activity/Vol] 21 U/L Normal 16-63 [facility] Comment on above: Performed By: #### B JESUSITA, HSTROPN #### [facility] [address] [address] [address] Tami Merrill Anion gap [Moles/Vol] 10.7 mmol/L Normal [facility] Comment on above: Performed By: #### B JESUSITA, HSTROPN #### [facility] [address] [place] [address] Dr. Tami Merrill AST [Catalytic activity/Vol] 12 U/L Critically low 15-37 [facility] Comment on above: Performed By: #### B JESUSITA HSTROPN #### [facility] [address] [place] [address] Dr. Tami Merrill Bilirubin [Mass/Vol] 0.5 mg/dL Normal 0.2-1.0 [facility] Comment on above: Performed By: #### B JESUSITA, HSTROPN #### [facility] [address] [place] [address] Dr. Tami Merrill Calcium [Mass/Vol] 8.3 mg/dL Critically low 8.5-10.1 [facility] Comment on above: Performed By: #### B JESUSITA, HSTROPN #### [facility] [address] [place] [address] Dr. Tami Merrill Chloride [Moles/Vol] 103 mmol/L Normal 98-107 [facility] Comment on above: Performed By: #### B JESUSITA, HSTROPN #### [facility] [address] [place] [address] Dr. Tami Merrill CO2 [Moles/Vol] 29.1 mmol/L Normal 21.0-32.0 [facility] Comment on above: Performed By: #### B MP, HSTROPN #### [facility] [address] [address] [address] Tami Merrill Creatinine [Mass/Vol] 1.99 mg/dL Critically high 0.70-1.30 [facility] Comment on above: Performed By: #### B MP, HSTROPN #### [facility] [address] [address] [address] Tami Merrill EGFR-AF LIBYAN 41 mL/min/1.73m2 Critically low >=60 [facility] Comment on above: Performed By: #### B MP, HSTROPN #### [facility] [address] [address] [address] Tami Merrill EGFR-NON AF LIBYAN 33 mL/min/1.73m2 Critically low >=60 [facility] Comment on above: Performed By: #### B MP, HSTROPN #### [facility] [address] [place] [address] Dr. Tami Merrill Globulin (S) [Mass/Vol] 3.3 g/dL Normal [facility] Comment on above: Performed By: #### B MP, HSTROPN #### [facility] [address] [address] [address] Tami Merrill Glucose [Mass/Vol] 121 mg/dL Critically high 74-[address] [facility] Comment on above: Performed By: #### B MP, HSTROPN #### [facility] [address] [address] [address] Tami Merrill Potassium [Moles/Vol] 3.8 mmol/L Normal 3.5-5.1 [facility] Comment on above: Performed By: #### B MP, HSTROPN #### [facility] [address] [address] [address] Tami Merrill Protein [Mass/Vol] 6.7 g/dL Normal 6.4-8.2 [facility] Comment on above: Performed By: #### B MP, HSTROPN #### [facility] [address] [address] [address] Tami Merrill Sodium [Moles/Vol] 139 mmol/L Normal 136-145 [facility] Comment on above: Performed By: #### B JESUSITA HSTROPN #### [facility] [address] [address] [address] Tami Merrill Urea nitrogen [Mass/Vol] 39.0 mg/dL Critically high 7.0-18.0 [facility] Comment on above: Performed By: #### B JESUSITA HSTROPN #### [facility] [address] [address] [address] Tami Merrill Urea nitrogen/Creatinine [Mass ratio] 19.6 mg/mg Normal [facility] Comment on above: Performed By: #### B JESUSITA HSTROPN #### [facility] [address] [place] [address] Dr. Tami Merrill [facility] SED RATE 17 mm/hr Normal <=20 [facility] Comment on above: Performed By: #### B JESUSITA HSTROPN #### [facility] [address] [place] [address] Dr. Tami Merrill CBC AUTO DIFFon 02-14-2022 BASO # 0.0 103/ul Normal 0.0-0.1 [facility] Comment on above: Performed By: #### C BC ####[facility] [address] [place] [address]DrFlorentin Merrill Basophils/100 WBC (Bld) 0.3 % Normal 0.2-2.[address] [facility] Comment on above: Performed By: #### C BC ####[facility] [address] [place] [address]DrFlorentin Merrill EO # 0.2 103/ul Normal 0.0-0.7 [facility] Comment on above: Performed By: #### C BC ####[facility] [address] [place] [address]DrFlorentin Merrill Eosinophils/100 WBC (Bld) 1.4 % Normal 0.9-7.0 [facility] Comment on above: Performed By: #### C BC ####[facility] [address] [place] [address]Dr. Tami Merrill Erythrocyte distribution width (RBC) [Ratio] 13.8 % Normal 11.0-15.0 [facility] Comment on above: Performed By: #### C BC ####[facility] [address] [place] [address]Dr. Tami Merrill Hematocrit (Bld) [Volume fraction] 40.4 % Critically low 42.0-54.0 [facility] Comment on above: Performed By: #### C BC ####[facility] [address] [place] [address]Dr. Tami Merrill Hemoglobin (Bld) [Mass/Vol] 13.4 g/dL Critically low 14.0-18.0 [facility] Comment on above: Performed By: #### C BC ####[facility] [address] [place], [place] [address]Dr. Brittaniac Merrill IG # 0.06 10e3/ul Critically high 0.00-0.03 [facility] [place] [facility] Comment on above: Performed By: #### C BC ####[facility] [address] [place], [place] [address]Dr. Tami Merrill IG % 0.5 % Normal 0.0-0.5 [facility] Comment on above: Performed By: #### C BC ####[facility] [address] [place], [place] [address]Dr. Brittaniac Merrill LYMPH # 1.5 103/ul Normal 1.2-3.8 [facility] Comment on above: Performed By: #### C BC ####[facility] [address] [place], [place] [address]Dr. Brittaniac Merrill Lymphocytes/100 WBC (Bld) 12.6 % Critically low 20.5-60.0 [facility] Comment on above: Performed By: #### C BC ####[facility] [address] [place], [place] [address]Dr. Brittaniac Merrill MANUAL DIFF REQ NO Normal [facility] Comment on above: Performed By: #### C BC ####[facility] [address] [place] [id number]. Tami Garfield MCH (RBC) [Entitic mass] 27.1 pg Normal 25.9-34.0 [facility] Comment on above: Performed By: #### C BC ####[facility] [address] [place] [address]Dr. Tami Garfield MCHC (RBC) [Mass/Vol] 33.2 g/dL Normal 29.9-35.2 [facility] Comment on above: Performed By: #### C BC ####[facility] [address] [place] [id number]. Tami Merrill MCV (RBC) [Entitic vol] 81.8 fL Normal 80.0-94.[address] [facility] Comment on above: Performed By: #### C BC ####[facility] [address] [place], [place] [address]Dr. Tami Merrill MONO # 0.9 103/ul Critically high 0.3-0.8 [facility] Comment on above: Performed By: #### C BC ####[facility] [address] [place] [address]Dr. Tami Merrill Monocytes/100 WBC (Bld) 7.7 % Normal 1.7-12.[address] [facility] Comment on above: Performed By: #### C BC ####[facility] [address] [place], [place] [address]Dr. Tami Merrill NEUT # 9.2 103/ul Critically high 1.4-6.5 [facility] Comment on above: Performed By: #### C BC ####[facility] [address] [place], [place] [address]Dr. Tami Merrill Neutrophils/100 WBC (Bld) 77.5 % Critically high 43.0-75.0 [facility] Comment on above: Performed By: #### C BC ####[facility] [address] [place], [place] [address]Dr. Tami Merrill Platelet mean volume (Bld) [Entitic vol] 10.0 fL Normal 9.5-13.5 [facility] Comment on above: Performed By: #### C BC ####[facility] [address] [place], [place] [address]Zc. Tami Merrill PLT 176 103/ul Normal 150-450 [facility] Comment on above: Performed By: #### C BC ####[facility] [address] [place], [place] [address]Aj. Tami Merrill RBC 4.94 106/ul Normal 4.70-6.10 [facility] Comment on above: Performed By: #### C BC ####[facility] [address] [place], [place] [address]Zr. Tami Merrill WBC 11.9 103/ul Critically high 4.0-11.[address] [facility] Comment on above: Performed By: #### C BC ####[facility] [address] [place], [place] [address]Bf. Tami Merrill CT ABD/PELVIS WO CONon 02-14 CT ABD/PELVIS WO CON EXAMINATION:CT ABD/PELVIS WO CON INDICATION:Left lower quadrant pain COMPARISON:CT scan dated 07/08/2019. TECHNIQUE:Multiple thin section transaxial slices were acquired through the abdomen and pelvis without intravenous contrast. Coronal and sagittal reconstructed images were reviewed. Oral contrastWas not administered. FINDINGS: LOWER CHEST: There is a calcified granuloma in the medial right lower lobe. LIVER: The liver is unremarkable. GALLBLADDER AND BILIARY SYSTEM: No obvious ductal dilation. No calcified stones. SPLEEN: The spleen is upper limits of normal in size measuring 13.6 cm. PANCREAS: The pancreas is unremarkable. ADRENAL GLANDS: The adrenal glands are unremarkable. KIDNEYS AND URETERS: There is no hydronephrosis of the kidneys.The ureters are within normal limits without obstructing urologic calcifications. Cortical-based scarring is present in the right kidney. There are cysts in the left kidney. VASCULATURE: There is atherosclerotic plaque abdominal aorta without aneurysm. PERITONEUM/RETROPERI TONEUM: Peritoneum/retroperi toneum is unremarkable. LYMPH NODES: No suspicious lymphadenopathy. GASTROINTESTINAL TRACT: No acute inflammatory changes are associated with the bowel.The bowel is normal in caliber without obstruction.The appendix is visualized and is not inflamed. BLADDER: The urinary bladder is unremarkable. REPRODUCTIVE SYSTEM: Reproductive system is unremarkable. BODY WALL: There is a tiny fat-containing umbilical hernia. BONES: Osseous structures are unremarkable. IMPRESSION: 1. No acute process in the abdomen or pelvis. No obstructive uropathy is noted. Electronically authenticated by: JUAREZ KERR Date: 2022-02-14 21:26 Normal [facility] Covid-19 PCR (CVDTB)on SARS-CoV-2 (COVID-19) RNA GALLO+probe Ql (Unsp spec) Not detected Normal NOT DETECTED [facility] Comment on above: Result Comment: When diagnostic testing is negative, the possibility of a false negative should be considered in the context of a patient's recent exposures and the presence of clinical signs and symptoms consistent with SARS-CoV-2. This test is not yet approved or cleared by the [place] FDA. When there are no FDA-approved or cleared tests available, and other criteria are met, FDA can make tests available under an emergency access mechanism called an Emergency Use Authorization (EUA). The EUA for this test is supported by the Typist of Health and Human Service's declaration that circumstances exist to justify the emergency use of in vitro diagnostics for the detection and/or diagnosis of the virus that causes COVID-19. This EUA will remain in effect for the duration of the COVID-19 declaration justifying emergency of IVDs, unless it is terminated or revoked by the FDA (after which the test may no longer be used). Performed By: #### B JESUSITA, HSTROPN #### [facility] [address] [place] [address] Dr. Tami Merrill ER URINE PROFILEon 2 Bilirubin Ql (U) Negative Normal NEGATIVE [facility] Comment on above: Performed By: #### B JESUSITA, HSTROPN #### [facility] [address] [place] [address] Dr. Tami Merrill Clarity (U) CLEAR Normal CLEAR [facility] Comment on above: Performed By: #### B JESUSITA, HSTROPN #### [facility] [address] [place] [address] Dr. Tami Merrill Color (U) LT. YELLOW Normal YELLOW [facility] Comment on above: Performed By: #### B JESUSITA, HSTROPN #### [facility] [address] [place] [address] Dr. Tami COOPER A micrscopic examination will be performed if indicated. Normal [facility] Comment on above: Performed By: #### B JESUSITA, HSTROPN #### [facility] [address] [address] [address] Tami Merrill Glucose Ql (U) >1000 Abnormal NEGATIVE [facility] Comment on above: Performed By: #### B MP, HSTROPN #### [facility] [address] [place] [address] Dr. Tami Merrill Hemoglobin Ql (U) TRACE-INTACT Abnormal NEGATIVE [facility] Comment on above: Performed By: #### B JESUSITA, HSTROPN #### [facility] [address] [place] [address] Dr. Tami Merrill Ketones Ql (U) Negative Normal NEGATIVE [facility] Comment on above: Performed By: #### B JESUSITA, HSTROPN #### [facility] [address] [place] [address] Dr. Tami Merrill LEUKOCYTES TRACE Abnormal NEGATIVE [facility] Comment on above: Performed By: #### B JESUSITA, HSTROPN #### [facility] [address] [place] [address] Dr. Tami Merrill Nitrite Ql (U) Positive Abnormal NEGATIVE [facility] Comment on above: Performed By: #### B JESUSITA, HSTROPN #### [facility] [address] [place] [address] Dr. Tami Merrill pH (U) 6.0 [pH] Normal 5-9 [facility] Comment on above: Performed By: #### B JESUSITA, HSTROPN #### [facility] [address] [place] [address] Dr. Tami Merrill SPEC GRAVITY 1.015 Normal 1.005-<=1.02 5 [facility] Comment on above: Performed By: #### B JESUSITA, HSTROPN #### [facility] [address] [place] [address] Dr. Tami Merrill UA PROTEIN TRACE Normal NEGATIVE/ TRACE [facility] Comment on above: Performed By: #### B JESUSITA, HSTROPN #### [facility] [address] [place] [address] Dr. Tami Merrill UR MICRO IND INDICATED Normal [facility] Comment on above: Performed By: #### B JESUSITA, HSTROPN #### [facility] [address] [place] [address] Dr. Tami Merrill Urobilinogen Qn (U) 0.2 {Angela'U}/dL Normal 0.2 - 1. 0 [facility] Comment on above: Performed By: #### B JESUSITA, HSTROPN #### [facility] [address] [place] [address] Dr. Tami Merrill LACTATE/LACTIC ACIDon 2021 Lactate [Moles/Vol] 0.9 mmol/L Normal 0.4-1.9 [facility] Comment on above: Performed By: #### L ACT #### [facility] [address] [place] [address] Dr. Tami Merrill POINT OF CARE GLUCOSEon Glucose [Mass/Vol] 101 mg/dL Normal 74-106 [facility] Comment on above: Performed By: #### B JESUSITA, HSTROPN #### [facility] [address] [place] [address] Dr. Tami Merrill PROF 14(COMP METB)on 022 Albumin [Mass/Vol] 3.6 g/dL Normal 3.4-5.0 [facility] Comment on above: Performed By: #### B JESUSITA, HSTROPN #### [facility] [address] [place] [address] Dr. Tami Merrill Albumin/Globulin [Mass ratio] 0.9 {ratio} Normal [facility] Comment on above: Performed By: #### B JESUSITA, HSTROPN #### [facility] [address] [place] [address] Dr. Tami Merrill ALP [Catalytic activity/Vol] 51 U/L Normal 46-116 [facility] Comment on above: Performed By: #### B MP, HSTROPN #### [facility] [address] [address] [address] Tami Merrill ALT [Catalytic activity/Vol] 25 U/L Normal 16-63 [facility] Comment on above: Performed By: #### B MP, HSTROPN #### [facility] [address] [place] [address] Dr. Tami Merrill Anion gap [Moles/Vol] 13.8 mmol/L Normal [facility] Comment on above: Performed By: #### B MP, HSTROPN #### [facility] [address] [place] [address] Dr. Tami Merrill AST [Catalytic activity/Vol] 12 U/L Critically low 15-37 [facility] Comment on above: Performed By: #### B MP, HSTROPN #### [facility] [address] [place] [address] Dr. Tami Merrill Bilirubin [Mass/Vol] 0.4 mg/dL Normal 0.2-1.0 [facility] Comment on above: Performed By: #### B MP, HSTROPN #### [facility] [address] [place] [address] Dr. Tami Merrill Calcium [Mass/Vol] 8.4 mg/dL Critically low 8.5-10.1 [facility] Comment on above: Performed By: #### B MP, HSTROPN #### [facility] [address] [place] [address] Dr. Tami Merrill Chloride [Moles/Vol] 104 mmol/L Normal 98-107 [facility] Comment on above: Performed By: #### B MP, HSTROPN #### [facility] [address] [place] [address] Dr. Tami Merrill CO2 [Moles/Vol] 25.1 mmol/L Normal 21.0-32.0 [facility] Comment on above: Performed By: #### B MP, HSTROPN #### [facility] [address] [place] [address] Dr. Tami Merrill Creatinine [Mass/Vol] 2.00 mg/dL Critically high 0.70-1.30 [facility] Comment on above: Performed By: #### B JESUSITA, HSTROPN #### [facility] [address] [address] [address] Tami Merrill EGFR-AF LIBYAN 40 mL/min/1.73m2 Critically low >=60 [facility] Comment on above: Performed By: #### B JESUSITA, HSTROPN #### [facility] [address] [place] [address] Dr. Tami Merrill EGFR-NON AF LIBYAN 33 mL/min/1.73m2 Critically low >=60 [facility] Comment on above: Performed By: #### B JESUSITA, HSTROPN #### [facility] [address] [place] [address] Dr. Tami Merrill Globulin (S) [Mass/Vol] 3.8 g/dL Normal [facility] Comment on above: Performed By: #### B JESUSITA, HSTROPN #### [facility] [address] [place] [address] Dr. Tami Merrill Glucose [Mass/Vol] 147 mg/dL Critically high 74-[address] [facility] Comment on above: Performed By: #### B JESUSITA, HSTROPN #### [facility] [address] [place] [address] Dr. Tami Merrill Potassium [Moles/Vol] 3.9 mmol/L Normal 3.5-5.1 [facility] Comment on above: Performed By: #### B JESUSITA, HSTROPN #### [facility] [address] [place] [address] Dr. Tami Merrill Protein [Mass/Vol] 7.4 g/dL Normal 6.4-8.2 [facility] Comment on above: Performed By: #### B JESUSITA, HSTROPN #### [facility] [address] [place] [address] Dr. Tami Merrill Sodium [Moles/Vol] 139 mmol/L Normal 136-145 [facility] Comment on above: Performed By: #### B JESUSITA, HSTROPN #### [facility] [address] [address] [address] Tami Merrill Urea nitrogen [Mass/Vol] 39.0 mg/dL Critically high 7.0-18.0 [facility] Comment on above: Performed By: #### B MP, HSTROPN #### [facility] [address] [address] [address] Tami Merrill Urea nitrogen/Creatinine [Mass ratio] 19.5 mg/mg Normal [facility] Comment on above: Performed By: #### B JESUSITA, HSTROPN #### [facility] [address] [address] [address] Tami Merrill PROTIMEon 02-14-2022 INR Coag (PPP) [Relative time] 1.01 {INR} Normal [facility] Comment on above: Performed By: #### P TT, PT ####[facility] [address] [place] [address]DrFlorentin Merrill INR GUIDELINES SEE BELOW Normal [facility] Comment on above: Result Comment: SEN RED INR: 2.0 - 3.0 CONDITIONS NOT LISTED BELOW 2.5 - 3.5 FOR PROSTHETIC HEART VALVE REPLACEMENT 2.5 - 3.5 RECURRENT THROMBOSIS Performed By: #### P TT, PT ####[facility] [address] [place] [address]DrFlorentin Merrill PT Coag (PPP) [Time] 10.9 s Normal 9.0-11.6 [facility] Comment on above: Performed By: #### P TT, PT ####[facility] [address] [place] [address]DrFlorentin Merrill PTTon 02-14-2022 aPTT Coag (Bld) [Time] 26.5 s Normal 22.3-36.2 [facility] Comment on above: Performed By: #### P TT, PT ####[facility] [address] [place] [address]DrFlorentin Merrill URINE MICROSCOPIC ONLYon BACTERIA LARGE Abnormal NONE SEEN [facility] Comment on above: Performed By: #### B MP, HSTROPN #### [facility] [address] [place] [address] Dr. Tami Merrill Bacteria identified Cx Nom (U) INDICATED Normal [facility] Comment on above: Performed By: #### B MP, HSTROPN #### [facility] [address] [place] [address] Dr. Tami Merrill CAST NONE SEEN Normal NONE SEEN [facility] Comment on above: Performed By: #### B MP, HSTROPN #### [facility] [address] [place] [address] Dr. Tami Merrill Crystals LM Nom (Urine sed) NONE SEEN Normal NONE SEEN [facility] Comment on above: Performed By: #### B MP, HSTROPN #### [facility] [address] [place] [address] Dr. Tami Merrill Epithelial cells LM Ql (Urine sed) RARE Normal NONE SEEN /RARE [facility] Comment on above: Performed By: #### B MP, HSTROPN #### [facility] [address] [place] [address] Dr. Tami Merrill MUCOUS NONE SEEN Normal NONE SEEN [facility] Comment on above: Performed By: #### B JESUSITA, HSTROPN #### [facility] [address] [place] [address] Dr. Tami Merrill RBC 2-5 Abnormal 0-2 [facility] Comment on above: Performed By: #### B JESUSITA, HSTROPN #### [facility] [address] [place] [address] Dr. Tami Merrill WBC 75-100 Abnormal NONE SEEN [facility] Comment on above: Performed By: #### B JESUSITA, HSTROPN #### [facility] [address] [place] [address] Dr. Tami Merrill US SCROTUM W VASCULAR ORGANo n 02-14-2022 US SCROTUM W VASCULAR ORGAN SCROTAL ULTRASOUND. HISTORY: Left testicular pain. COMPARISON: None. TECHNIQUE: High frequency grayscale and color Doppler sonographic imaging. FINDINGS: Right testis: 3.8 x 3.0 x 2.9 cm. Epididymis: Normal. Hydrocele: None. Varicocele present. Masses: None. Vascularity: Normal arterial blood flow. Left testis: 4.1 x 3.4 x 2.3 cm. Epididymis: Normal. Hydrocele: None. Varicocele present. Masses: None. Vascularity: Normal arterial blood flow. Additional Findings: none IMPRESSION: 1. Unremarkable testes and epididymides. 2. Bilateral varicoceles. Electronically authenticated by: SHARMIN WILKERSON Date: 2022-02-14 19:40 Normal [facility] CBC AUTO DIFFon 11-19-2021 BASO # 0.0 103/ul Normal 0.0-0.1 [facility] Comment on above: Performed By: #### B JESUSITA HSTROPN #### [facility] [address] [address] [address] Tami Merrill Basophils/100 WBC (Bld) 0.4 % Normal 0.2-2.[address] [facility] Comment on above: Performed By: #### Baron MC HSTROPN #### [facility] [address] [address] [address] Tami Merrill EO # 0.2 103/ul Normal 0.0-0.7 [facility] Comment on above: Performed By: #### Baron MC HSTROPN #### [facility] [address] [address] [address] Tami Merrill Eosinophils/100 WBC (Bld) 2.8 % Normal 0.9-7.0 [facility] Comment on above: Performed By: #### B JESUSITA HSTROPN #### [facility] [address] [address] [address] Tami Merrill Erythrocyte distribution width (RBC) [Ratio] 14.5 % Normal 11.0-15.0 [facility] Comment on above: Performed By: #### B JESUSITA HSTROPN #### [facility] [address] [address] [address] Tami Merrill Hematocrit (Bld) [Volume fraction] 36.2 % Critically low 42.0-54.0 [facility] Comment on above: Performed By: #### B JESUSITA HSTROPN #### [facility] [address] [place] [address] Dr. Tami Merrill Hemoglobin (Bld) [Mass/Vol] 11.9 g/dL Critically low 14.0-18.0 [facility] Comment on above: Performed By: #### B MP, HSTROPN #### [facility] [address] [place] [address] Dr. Tami Merrill IG # 0.02 10e3/ul Normal 0.00-0.03 [facility] Comment on above: Performed By: #### B MP, HSTROPN #### [facility] [address] [place] [address] Dr. Tami Merrill IG % 0.3 % Normal 0.0-0.5 [facility] Comment on above: Performed By: #### B MP, HSTROPN #### [facility] [address] [place] [address] Dr. Tami Merrill LYMPH # 1.2 103/ul Normal 1.2-3.8 [facility] Comment on above: Performed By: #### B MP, HSTROPN #### [facility] [address] [place] [address] Dr. Tami Merrill Lymphocytes/100 WBC (Bld) 16.6 % Critically low 20.5-60.0 [facility] Comment on above: Performed By: #### B MP, HSTROPN #### [facility] [address] [place] [address] Dr. Tami Merrill MANUAL DIFF REQ NO Normal [facility] Comment on above: Performed By: #### B MP, HSTROPN #### [facility] [address] [place] [address] Dr. Tami Merrill MCH (RBC) [Entitic mass] 27.0 pg Normal 25.9-34.0 [facility] Comment on above: Performed By: #### B MP, HSTROPN #### [facility] [address] [place] [address] Dr. Tami Merrill MCHC (RBC) [Mass/Vol] 32.9 g/dL Normal 29.9-35.2 [facility] Comment on above: Performed By: #### B JESUSITA, HSTROPN #### [facility] [address] [place] [address] Dr. Tami Merrill MCV (RBC) [Entitic vol] 82.3 fL Normal 80.0-94.[address] [facility] Comment on above: Performed By: #### B MP, HSTROPN #### [facility] [address] [place] [address] Dr. Tami Merrill MONO # 0.7 103/ul Normal 0.3-0.8 [facility] Comment on above: Performed By: #### B JESUSITA, HSTROPN #### [facility] [address] [place] [address] Dr. Tami Merrill Monocytes/100 WBC (Bld) 9.1 % Normal 1.7-12.[address] [facility] Comment on above: Performed By: #### B JESUSITA, HSTROPN #### [facility] [address] [place] [address] Dr. Tami Merrill NEUT # 5.0 103/ul Normal 1.4-6.5 [facility] Comment on above: Performed By: #### B JESUSITA, HSTROPN #### [facility] [address] [place] [address] Dr. Tami Merrill Neutrophils/100 WBC (Bld) 70.8 % Normal 43.0-75.0 [facility] Comment on above: Performed By: #### B MP, HSTROPN #### [facility] [address] [place] [address] Dr. Tami Merrill Platelet mean volume (Bld) [Entitic vol] 9.8 fL Normal 9.5-13.5 [facility] Comment on above: Performed By: #### B MP, HSTROPN #### [facility] [address] [place] [address] Dr. Tami Merrill PLT 143 103/ul Critically low 150-450 [facility] Comment on above: Performed By: #### B MP, HSTROPN #### [facility] [address] [place], [place] [address] Dr. Tami Merrill RBC 4.40 106/ul Critically low 4.70-6.10 [facility] Comment on above: Performed By: #### B JESUSITA, HSTROPN #### [facility] [address] [place], [place] [address] Dr. Tami Merrill WBC 7.1 103/ul Normal 4.0-11.0 [facility] Comment on above: Performed By: #### B JESUSITA, HSTROPN #### [facility] [address] [place], [place] [address] Dr. Tami Merrill Covid-19 PCR (CVDTBH)on 11-06 SARS-CoV-2 (COVID-19) RNA GALLO+probe Ql (Unsp spec) Not detected Normal NOT DETECTED [facility] Comment on above: Result Comment: When diagnostic testing is negative, the possibility of a false negative should be considered in the context of a patient's recent exposures and the presence of clinical signs and symptoms consistent with SARS-CoV-2. This test is not yet approved or cleared by the [place] FDA. When there are no FDA-approved or cleared tests available, and other criteria are met, FDA can make tests available under an emergency access mechanism called an Emergency Use Authorization (EUA). The EUA for this test is supported by the [place] of Health and Human Service's declaration that circumstances exist to justify the emergency use of in vitro diagnostics for the detection and/or diagnosis of the virus that causes COVID-19. This EUA will remain in effect for the duration of the COVID-19 declaration justifying emergency of IVDs, unless it is terminated or revoked by the FDA (after which the test may no longer be used). Performed By: #### C VDTBH ####[facility] [address] [place], [place] [address]ZwDr. Tami Merrill PROF 14(COMP METB)on 022 Albumin [Mass/Vol] 3.3 g/dL Critically low 3.4-5.0 [facility] Comment on above: Performed By: #### B JESUSITA, HSTROPN #### [facility] [address] [address] [address] Tami Merrill Albumin/Globulin [Mass ratio] 1.0 {ratio} Normal [facility] Comment on above: Performed By: #### B MP, HSTROPN #### [facility] [address] [address] [address] Tami Merrill ALP [Catalytic activity/Vol] 37 U/L Critically low 46-116 [facility] Comment on above: Performed By: #### B MP, HSTROPN #### [facility] [address] [place] [address] Dr. Tami Merrill ALT [Catalytic activity/Vol] 21 U/L Normal 16-63 [facility] Comment on above: Performed By: #### B MP, HSTROPN #### [facility] [address] [place] [address] Dr. Tami Merrill Anion gap [Moles/Vol] 14.0 mmol/L Normal [facility] Comment on above: Performed By: #### B MP, HSTROPN #### [facility] [address] [place] [address] Dr. Tami Merrill AST [Catalytic activity/Vol] 14 U/L Critically low 15-37 [facility] Comment on above: Performed By: #### B MP, HSTROPN #### [facility] [address] [place] [address] Dr. Tami Merrill Bilirubin [Mass/Vol] 0.4 mg/dL Normal 0.2-1.0 [facility] Comment on above: Performed By: #### B MP, HSTROPN #### [facility] [address] [place] [address] Dr. Tami Merrill Calcium [Mass/Vol] 8.6 mg/dL Normal 8.5-10.1 [facility] Comment on above: Performed By: #### B MP, HSTROPN #### [facility] [address] [place] [address] Dr. Tami Merrill Chloride [Moles/Vol] 107 mmol/L Normal 98-107 [facility] Comment on above: Performed By: #### B JESUSITA, HSTROPN #### [facility] [address] [address] [address] Tami Merrill CO2 [Moles/Vol] 22.2 mmol/L Normal 21.0-32.0 [facility] Comment on above: Performed By: #### B JESUSITA, HSTROPN #### [facility] [address] [place] [address] Dr. Tami Merrill Creatinine [Mass/Vol] 2.32 mg/dL Critically high 0.70-1.30 [facility] Comment on above: Performed By: #### B JESUSITA, HSTROPN #### [facility] [address] [place] [address] Dr. Tami Merrill EGFR-AF LIBYAN 34 mL/min/1.73m2 Critically low >=60 [facility] Comment on above: Performed By: #### B JESUSITA, HSTROPN #### [facility] [address] [place] [address] Dr. Tami Merrill EGFR-NON AF LIBYAN 28 mL/min/1.73m2 Critically low >=60 [facility] Comment on above: Performed By: #### B JESUSITA, HSTROPN #### [facility] [address] [place] [address] Dr. Tami Merrill Globulin (S) [Mass/Vol] 3.4 g/dL Normal [facility] Comment on above: Performed By: #### B JESUSITA, HSTROPN #### [facility] [address] [place] [address] Dr. Tami Merrill Glucose [Mass/Vol] 114 mg/dL Critically high 74-[address] [facility] Comment on above: Performed By: #### B JESUSITA, HSTROPN #### [facility] [address] [place] [address] Dr. Tami Merrill Potassium [Moles/Vol] 4.2 mmol/L Normal 3.5-5.1 [facility] Comment on above: Performed By: #### B JESUSITA, HSTROPN #### [facility] [address] [place] [address] Dr. Tami Merrill Protein [Mass/Vol] 6.7 g/dL Normal 6.4-8.2 [facility] Comment on above: Performed By: #### B MP, HSTROPN #### [facility] [address] [address] [address] Tami Merrill Sodium [Moles/Vol] 139 mmol/L Normal 136-145 [facility] Comment on above: Performed By: #### B MP, HSTROPN #### [facility] [address] [address] [address] Tami Merrill Urea nitrogen [Mass/Vol] 45.0 mg/dL Critically high 7.0-18.0 [facility] Comment on above: Performed By: #### B MP, HSTROPN #### [facility] [address] [place] [address] Dr. Tami Merrill Urea nitrogen/Creatinine [Mass ratio] 19.4 mg/mg Normal [facility] Comment on above: Performed By: #### B MP, HSTROPN #### [facility] [address] [place] [address] Dr. Tami Merrill TROPONIN, HIGH SENSITIVITYon 11-19-2021 HSTROP 11.1 pg/mL Normal 4.0-76.1 [facility] Comment on above: Result Comment: CUT- OFF POINTS HAVE BEEN ESTABLISHED BASED ON THE FOURTH UNIVERSAL DEFINITIONS OF MYOCARDIAL INFARCTION. THE UPPER REFERENCE LIMIT (URL) OF TROPONIN, DEFINED THE 99TH PERCENTILE OF cTnI DISTRIBUTION IN A REFERENCE POPULATION, HAS BEEN CONFIRMED THE DECISION THRESHOLD FOR MN DIAGNOSIS. Performed By: #### B MP, HSTROPN #### [facility] [address] [place] [address] Dr. Tami Merrill HSTROP 11.5 pg/mL Normal 4.0-76.1 [facility] Comment on above: Result Comment: CUT- OFF POINTS HAVE BEEN ESTABLISHED BASED ON THE FOURTH UNIVERSAL DEFINITIONS OF MYOCARDIAL INFARCTION. THE UPPER REFERENCE LIMIT (URL) OF TROPONIN, DEFINED THE 99TH PERCENTILE OF cTnI DISTRIBUTION IN A REFERENCE POPULATION, HAS BEEN CONFIRMED THE DECISION THRESHOLD FOR MN DIAGNOSIS. Performed By: #### B MP, HSTROPN #### [facility] [address] [place], [place] [address] Dr. Tami Merrill XR CHEST 1 Von 11-19-2021 XR CHEST 1 V EXAMINATION: XR CHEST 1 V HISTORY: CHEST PAIN, UNSPECIFIED COMPARISON: 11/01/2021 TECHNIQUE: AP portable erect FINDINGS: LUNGS: No significant pulmonary parenchymal abnormalities. VASCULATURE: No increased pulmonary vasculature. PLEURA: No pneumothorax, effusion, or pleural thickening. CARDIAC: No cardiomegaly or cardiac silhouette abnormality. MEDIASTINUM: No visible mass or adenopathy. BONES: No fracture or visible bone lesion. OTHER: Negative. IMPRESSION: No acute disease. Electronically authenticated by: MAYITO DOVE Date: 2021-11-19 15:02 Normal [facility] PROF CHEM 8 (BAS METB)on Anion gap [Moles/Vol] 12.0 mmol/L Normal [facility] Comment on above: Performed By: #### B MP ####[facility] [address] [address]Dr. Tami Merrill Calcium [Mass/Vol] 8.6 mg/dL Normal 8.5-10.1 [facility] Comment on above: Performed By: #### B MP ####[facility] [address] [address]Dr. Tami Merrill Chloride [Moles/Vol] 108 mmol/L Critically high 98-107 [facility] Comment on above: Performed By: #### B MP ####[facility] [address] [address]Dr. Tami Merrill CO2 [Moles/Vol] 25.2 mmol/L Normal 21.0-32.0 [facility] Comment on above: Performed By: #### B MP ####[facility] [address] [id number] Merrill Creatinine [Mass/Vol] 2.40 mg/dL Critically high 0.70-1.30 [facility] Comment on above: Performed By: #### B MP ####[facility] [address] [address]Dr. Tami Merrill EGFR-AF LIBYAN 33 mL/min/1.73m2 Critically low >=60 [facility] Comment on above: Performed By: #### B MP ####[facility] [address] [address]Dr. Tami Merrill EGFR-NON AF LIBYAN 27 mL/min/1.73m2 Critically low >=60 [facility] Comment on above: Performed By: #### B MP ####[facility] [address] [place], [place] [address]Dr. Tami Merrill Glucose [Mass/Vol] 112 mg/dL Critically high 74-106 [facility] Comment on above: Performed By: #### B MP ####[facility] [address] [place], [place] [address]Dr. Tami Merrill Potassium [Moles/Vol] 4.2 mmol/L Normal 3.5-5.1 [facility] Comment on above: Performed By: #### B MP ####[facility] [address] [place], [place] [address]Dr. Tami Merrill Sodium [Moles/Vol] 141 mmol/L Normal 136-145 [facility] Comment on above: Performed By: #### B MP ####[facility] [address] [place], [place] [address]Dr. Tami Merrill Urea nitrogen [Mass/Vol] 45.0 mg/dL Critically high 7.0-18.0 [facility] Comment on above: Performed By: #### B MP ####[facility] [address] [place], [place] [address]Dr. Tami Merrill Urea nitrogen/Creatinine [Mass ratio] 18.8 mg/mg Normal [facility] Comment on above: Performed By: #### B MP ####[facility] [address] [place], [place] [address]Dr. Tami Merrill CBC AUTO DIFFon 11-01-2021 BASO # 0.0 103/ul Normal 0.0-0.1 [facility] Comment on above: Performed By: #### C BC ####[facility] [address] [place], [place] [address]Dr. Tami Merrill Basophils/100 WBC (Bld) 0.2 % Normal 0.2-2.[address] [facility] Comment on above: Performed By: #### C BC ####[facility] [address] [address]Dr. Tami Merrill EO # 0.0 103/ul Normal 0.0-0.7 [facility] Comment on above: Performed By: #### C BC ####[facility] [address] [place], [place] [address]Dr. Tami Merrill Eosinophils/100 WBC (Bld) 0.0 % Critically low 0.9-7.0 [facility] Comment on above: Performed By: #### C BC ####[facility] [address] [place], [place] [address]Dr. Tami Merrill Erythrocyte distribution width (RBC) [Ratio] 13.8 % Normal 11.0-15.0 [facility] Comment on above: Performed By: #### C BC ####[facility] [address] [place], [place] [address]Dr. Tami Merrill Hematocrit (Bld) [Volume fraction] 34.9 % Critically low 42.0-54.0 [facility] Comment on above: Performed By: #### C BC ####[facility] [address] [place], [place] [address]Dr. Tami Merrill Hemoglobin (Bld) [Mass/Vol] 11.6 g/dL Critically low 14.0-18.0 [facility] Comment on above: Performed By: #### C BC ####[facility] [address] [place], [place] [address]Dr. Tami Merrill IG # 0.12 10e3/ul Critically high 0.00-0.03 [facility] Comment on above: Performed By: #### C BC ####[facility] [address] [place], [place] [address]Dr. Tami Merrill IG % 0.9 % Critically high 0.0-0.5 [facility] Comment on above: Performed By: #### C BC ####[facility] [address] [id number]. Tami Merrill LYMPH # 1.2 103/ul Normal 1.2-3.8 [facility] Comment on above: Performed By: #### C BC ####[facility] [address] [address]Dr. Tami Merrill Lymphocytes/100 WBC (Bld) 9.0 % Critically low 20.5-60.0 [facility] Comment on above: Performed By: #### C BC ####[facility] [address] [address]Dr. Tami Merrill MANUAL DIFF REQ NO Normal [facility] Comment on above: Performed By: #### C BC ####[facility] [address] [address]Dr. Tami Merrill MCH (RBC) [Entitic mass] 27.5 pg Normal 25.9-34.0 [facility] Comment on above: Performed By: #### C BC ####[facility] [address] [address]Dr. Tami Merrill MCHC (RBC) [Mass/Vol] 33.2 g/dL Normal 29.9-35.2 [facility] Comment on above: Performed By: #### C BC ####[facility] [address] [address]Dr. Tami Merrill MCV (RBC) [Entitic vol] 82.7 fL Normal 80.0-94.[address] [facility] Comment on above: Performed By: #### C BC ####[facility] [address] [address]Dr. Tami Merrill MONO # 0.7 103/ul Normal 0.3-0.8 [facility] Comment on above: Performed By: #### C BC ####[facility] [address] [place], [place] [address]Dr. Tami Merrill Monocytes/100 WBC (Bld) 5.5 % Normal 1.7-12.[address] [facility] Comment on above: Performed By: #### C BC ####[facility] [address] [place], [place] [address]Zq. Brittaniac Garfield NEUT # 11.4 103/ul Critically high 1.4-6.[address] [facility] Comment on above: Performed By: #### C BC ####[facility] [address] [place], [place] [address]Ju. Tami Merrill Neutrophils/100 WBC (Bld) 84.4 % Critically high 43.0-75.0 [facility] Comment on above: Performed By: #### C BC ####[facility] [address] [place] [id number]. Tami Merrill Platelet mean volume (Bld) [Entitic vol] 9.9 fL Normal 9.5-13.5 [facility] Comment on above: Performed By: #### C BC ####[facility] [address] [id number]. Tami Merrill PLT 234 103/ul Normal 150-450 [facility] Comment on above: Performed By: #### C BC ####[facility] [address] [id number]. Tami Merrill RBC 4.22 106/ul Critically low 4.70-6.10 [facility] Comment on above: Performed By: #### C BC ####[facility] [address] [id number]. Tami Merrill WBC 13.5 103/ul Critically high 4.0-11.[address] [facility] Comment on above: Performed By: #### C BC ####[facility] [address] [id number] Merrill D-DIMERon 11-01-2021 D-DIMER 0.23 mg/L FEU Normal <=0.59 [facility] Comment on above: Performed By: #### D DIM #### [facility] [address] [place], [place] [address] Dr. Tami Merrill D-DIMER COMMENTS SEE BELOW Normal [facility] Comment on above: Result Comment: Incr eases in D-Dimer concentration observed with thromboembolic events can be variable due to localization, size, and age of the thrombus. Therefore, a thromboembolic event cannot be diagnosed with certainty on the basis of the reference range. D-Dimers may also be elevated for a variety of disorders including: advanced age, , coronary disease, cancer, liver disease, infection, inflammation, hematoma, DIC, trauma, post-surgery, diabetes, thrombolytic or anticoagulant therapy, stress, and generalized hospitalization. Performed By: #### D DIM #### [facility] [address] [place] [address] Dr. Tami Merrill PROF CHEM 8 (BAS METB)on Anion gap [Moles/Vol] 14.0 mmol/L Normal [facility] Comment on above: Performed By: #### B JESUSITA, HSTROPN #### [facility] [address] [place] [address] Dr. Tami Merrill Calcium [Mass/Vol] 8.6 mg/dL Normal 8.5-10.1 [facility] Comment on above: Performed By: #### B JESUSITA, HSTROPN #### [facility] [address] [place] [address] Dr. Tami Merrill Chloride [Moles/Vol] 107 mmol/L Normal 98-107 [facility] Comment on above: Performed By: #### B JESUSITA, HSTROPN #### [facility] [address] [place] [address] Dr. Tami Merrill CO2 [Moles/Vol] 23.4 mmol/L Normal 21.0-32.0 [facility] Comment on above: Performed By: #### B JESUSITA, HSTROPN #### [facility] [address] [place] [address] Dr. Tami Merrill Creatinine [Mass/Vol] 2.54 mg/dL Critically high 0.70-1.30 [facility] Comment on above: Performed By: #### B JESUSITA, HSTROPN #### [facility] [address] [place] [id number] Dr. Tami Merrill EGFR-AF LIBYAN 31 mL/min/1.73m2 Critically low >=60 [facility] Comment on above: Performed By: #### B JESUSITA, HSTROPN #### [facility] [address] [address] [address] Tami Merrill EGFR-NON AF LIBYAN 25 mL/min/1.73m2 Critically low >=60 [facility] Comment on above: Performed By: #### B MP, HSTROPN #### [facility] [address] [address] [address] Tami Merrill Glucose [Mass/Vol] 180 mg/dL Critically high 74-106 [facility] Comment on above: Performed By: #### B MP, HSTROPN #### [facility] [address] [address] [address] Tami Merrill Potassium [Moles/Vol] 4.4 mmol/L Normal 3.5-5.1 [facility] Comment on above: Performed By: #### B MP, HSTROPN #### [facility] [address] [address] [address] Tami Merrill Sodium [Moles/Vol] 140 mmol/L Normal 136-145 [facility] Comment on above: Performed By: #### B MP, HSTROPN #### [facility] [address] [address] [address] Tami Merrill Urea nitrogen [Mass/Vol] 57.0 mg/dL Critically high 7.0-18.0 [facility] Comment on above: Performed By: #### B MP, HSTROPN #### [facility] [address] [address] [address] Tami Merrill Urea nitrogen/Creatinine [Mass ratio] 22.4 mg/mg Normal [facility] Comment on above: Performed By: #### B MP, HSTROPN #### [facility] [address] [address] [address] Tami Merrill TROPONIN, HIGH SENSITIVITYon 11-01-2021 HSTROP 10.5 pg/mL Normal 4.0-76.1 [facility] Comment on above: Result Comment: CUT- OFF POINTS HAVE BEEN ESTABLISHED BASED ON THE FOURTH UNIVERSAL DEFINITIONS OF MYOCARDIAL INFARCTION. THE UPPER REFERENCE LIMIT (URL) OF TROPONIN, DEFINED THE 99TH PERCENTILE OF cTnI DISTRIBUTION IN A REFERENCE POPULATION, HAS BEEN CONFIRMED THE DECISION THRESHOLD FOR MN DIAGNOSIS. Performed By: #### B JESUSITA, HSTROPN #### [facility] [address] [place], [place] [address] Dr. Tami Merrill HSTROP 11.2 pg/mL Normal 4.0-76.1 [facility] Comment on above: Result Comment: CUT- OFF POINTS HAVE BEEN ESTABLISHED BASED ON THE FOURTH UNIVERSAL DEFINITIONS OF MYOCARDIAL INFARCTION. THE UPPER REFERENCE LIMIT (URL) OF TROPONIN, DEFINED THE 99TH PERCENTILE OF cTnI DISTRIBUTION IN A REFERENCE POPULATION, HAS BEEN CONFIRMED THE DECISION THRESHOLD FOR MN DIAGNOSIS. Performed By: #### B MP, HSTROPN #### [facility] [address] [place], [place] [address] Dr. Tami Merrill XR CHEST 1 Von 11-01-2021 XR CHEST 1 V XR CHEST 1 V CLINICAL: CHEST PAIN, UNSPECIFIED COMPARISON: 04/03/2021 TECHNIQUE: Single AP view of the chest. FINDINGS: Heart size is within normal limits for technique. No regional airspace consolidation, effusion or evidence of pneumothorax. Osseous structures appear intact, with stable surgical anchor right humeral head. Coronary stent visible projecting over the left heart border. IMPRESSION: No acute cardiac or pulmonary findings. Electronically authenticated by: MAYITO LOMBARDI Date: 2021-11-01 10:17 Normal [facility] CREATININE BLOODon 2 Creatinine [Mass/Vol] 1.65 mg/dL High 0.70-1.30 [facility] Comment on above: Order Comment: No: D o not add to previous draw Performed By: #### 2 5656 #### [facility] [address] eGFR- 50 ml/min/1.73sq m Abnormal >60 [facility] Comment on above: Order Comment: No: D o not add to previous draw Performed By: #### 2 5656 #### [facility] [address] [place] [address], [facility] eGFR- non- 42 ml/min/1.73sq m Abnormal >60 [facility] Comment on above: Order Comment: No: D o not add to previous draw Performed By: #### 2 5656 #### [facility] [address] [place] [address], [facility] Cardiovascular Lab Reporton 10-22-2021 Cardiovascular Lab Report [facility] MR #: [id number] Department of Physician: Tomas Rajan MD Division of Service Date: 10/21/2021 Cardiology Birthdate: 1950 Adult Cardiovascular Room #: 3AB [id number] Services [facility] [address] [place], [place] [address] Cardiovascular Laboratory Report OPERATORS: 1. Tomas Rajan MD. 2. Kaela Ohara M.D. PROCEDURES PERFORMED: 1. Bilateral selective coronary angiography. 2. Right heart catheterization. 3. Limited femoral angiography. 4. PCI of mid LAD stenosis. FINAL IMPRESSIONS: 1. Severe stenosis in the mid LAD, 80%. This was reduced to 0% stenosis using a 2.5 x 15 mm noncompliant balloon and a 3.5 x 24 mm drug-eluting stent. 2. Moderate disease of the AV groove circ. 3. Minimal luminal irregularities of the right coronary artery. 4. Normal right-sided heart pressures. FINAL RECOMMENDATIONS: 1. Optimization of medical management for coronary artery disease: High-intensity statin, aspirin 81 mg daily, Plavix 75 mg daily, and Eliquis. He will be on triple therapy for 30 days. After 30 days, he will be reduced to Eliquis and Plavix indefinitely. 2. Aggressive risk factor modification. 3. Follow up in Cardiology Clinic as scheduled. PROCEDURE IN DETAIL: After risks, benefits, and alternatives were explained, written informed consent was obtained. This patient was prepped and draped in usual sterile fashion. Using 1% lidocaine solution, local infiltrative anesthesia was achieved over the right femoral artery and right femoral vein. Using ultrasound guidance and with a micropuncture kit, access to the right femoral artery and right femoral vein were obtained. Limited femoral angiography was performed to confirm adequate placement of sheath. A Gaffney catheter was advanced sequentially into the RA, RV, PA, and wedge positions through the femoral sheath, and pressures were measured. After reviewing the measurements, it was elected to conclude the right heart catheterization and proceed with the coronary angiography. Bilateral selective coronary angiography was performed using a JR4 and JL4 catheters. After reviewing the images, it was elected to proceed with PCI of the mid LAD. An EBU 3.5 guide catheter was advanced through the femoral sheath and attempted to engage coaxially into the vessel. Unfortunately, due to significant tortuosity in the iliac vessels, the guide catheter was unable to reach the ostium of the left main. At this point, it was elected to change the sheath to a longer sheath to bypass the tortuosity. A 6-Serbian Flexor 30 was inserted, and engagement was attempted again. Unfortunately, we had similar difficulty. At that point, it was decided to change the sheath out for a 6-Serbian Shuttle 80. This was done over a wire. After placement of the 6-Serbian Shuttle 80, an AL2 guide catheter was advanced and coaxially engaged to the left main ostium. A 0.014 Runthrough NS coronary wire was advanced through the LAD into the distal vessel and past the suspect stenosis. A 2.5 x 15 mm noncompliant balloon was used to dilate the lesion. Inadequate results were treated with a 3.5 x 24 mm drug-eluting stent placement. Final angiography revealed successful treatment of lesion with no thrombus, dissection, or distal wire trauma. After reviewing the images, it was decided to conclude the procedure. Of note, therapeutic anticoagulation was achieved prior to the start of the interventional procedure. This was verified through ACT measurement, an additional heparin was administered throughout the procedure to maintain adequate anticoagulation. The patient tolerated the procedure well. There were no immediate complications. He is to be transferred to recovery in stable condition. FINDINGS: 1. Hemodynamics. 2. AO 141/89. 3. RA 17/9 (8). 4. RV 32/3 (13). 5. PA 30/14 (21). 6. PCWP 11. 7. CO 6.63. 8. CI 3.15. Left ventriculography: This was not performed. Coronary arteries: 1. Left main: This arises from the left coronary cusp. It gives rise to the left anterior descending and left circumflex coronary arteries. This is patent and without significant stenosis. 2. Left anterior descending: There is 80% stenosis of the mid vessel. This was successfully reduced to 0% stenosis using balloon angioplasty and drug-eluting stent placement. Final angiography revealed no thrombus, dissection, or distal wire trauma. 3. Left circumflex: There is 50% to 60% stenosis in the mid AV groove circ. This is a small vessel. Otherwise, the left circumflex is patent and without significant stenosis. 4. RCA: This rises from the right coronary cusp. It is a dominant vessel giving rise to the PDA and PLV branches. There is mild, 30% narrowing in the proximal to midportion of the vessel. Otherwise, the ves (more content not included)... Normal [facility] LIPID PROFILEon 10-22-2021 Cholesterol [Mass/Vol] 89 mg/dL Low 120-200 [facility] Comment on above: Order Comment: Yes: Add to Previous draw if able Result Comment: CHOL ESTEROL REFERENCE RANGE: 20 YEARS AND OLDER CARDIOVASCULAR RISK Less than 200 mg/dl Low Risk 200 to 239 mg/dl Borderline Risk 240 mg/dl and greater High Risk Performed By: #### 9 [id number], [id number] #### [facility] [address] [place] [address], [facility] Cholesterol in HDL [Mass/Vol] 19 mg/dL Low 23-92 [facility] Comment on above: Order Comment: Yes: Add to Previous draw if able Result Comment: Slig ht variation in normal range could be due to gender and/or age. HDL CHOLESTEROL REFERENCE RANGE: 20 years and older Cardiovascular Risk > or =60 mg/dL Desirable 40 TO 59 mg/dL Low Risk <40 mg/dL High Risk Performed By: #### 9 9909, 60404 #### [facility] [address] [place] [address], [place] Cholesterol in LDL [Mass/Vol] 35 mg/dL Normal 0-130 [facility] Comment on above: Order Comment: Yes: Add to Previous draw if able Result Comment: LDL IS A CALCULATION LDL IS ONLY VALID IF THE TRIG IS LESS THAN 400. Performed By: #### 9 9909, 17888 #### [facility] [address] [place] [address], [place] Cholesterol.total/Destiny sterol in HDL [Mass ratio] 4.7 {ratio} High .0-4.5 [facility] Comment on above: Order Comment: Yes: Add to Previous draw if able Performed By: #### 9 99, 82227 #### [facility] [address] [place] [address], [facility] NON-HDL CHOLESTEROL 70 mg/dL Normal [facility] Comment on above: Order Comment: Yes: Add to Previous draw if able Performed By: #### 9 99, 53836 #### [facility] [address] Triglyceride [Mass/Vol] 176 mg/dL High 40-149 [facility] Comment on above: Order Comment: Yes: Add to Previous draw if able Result Comment: TRIG LYCERIDE REFERENCE RANGE: 20 YEARS AND OLDER CARDIOVASCULAR RISK LESS THAN 150 mg/dl LOW RISK 150 TO 199 mg/dl BORDERLINE RISK 200 mg/dl AND GREATER HIGH RISK Performed By: #### 9 99, 21372 #### [facility] [address] [place] [address], [facility] VLDL CHOL 35 mg/dL Normal 0-40 [facility] Comment on above: Order Comment: Yes: Add to Previous draw if able Performed By: #### 9 99, 86787 #### [facility] [address] [place] [id number], [facility] LIVER BATTERYon 10-22-2021 Albumin [Mass/Vol] 3.8 g/dL Normal 3.5-5.7 [facility] Comment on above: Order Comment: Yes: Add to Previous draw if able Performed By: #### 9 99, 64878 #### [facility] [address] [place] [id number], [facility] ALKALINE PHOSPH 44 IU/L Normal 34-104 [facility] Comment on above: Order Comment: Yes: Add to Previous draw if able Performed By: #### 9 99, 21088 #### [facility] [address] [place] [address], [place] ALT [Catalytic activity/Vol] 18 U/L Normal 7-52 [facility] Comment on above: Order Comment: Yes: Add to Previous draw if able Performed By: #### 9 9908, 32160 #### [facility] [address] [place] [address], [place] AST [Catalytic activity/Vol] 13 U/L Normal 13-39 [facility] Comment on above: Order Comment: Yes: Add to Previous draw if able Performed By: #### 9 9908, 02377 #### [facility] [address] [place] [address], [place] Bilirubin [Mass/Vol] 0.5 mg/dL Normal 0.3-1.0 [facility] Comment on above: Order Comment: Yes: Add to Previous draw if able Performed By: #### 9 9908, 22194 #### [facility] [address] [place] [address], [place] Bilirubin.direct [Mass/Vol] 0.1 mg/dL Normal 0.0-0.2 [facility] Comment on above: Order Comment: Yes: Add to Previous draw if able Performed By: #### 9 9908, 44783 #### [facility] [address] [place] [address], [place] Protein [Mass/Vol] 6.0 g/dL Normal 6.0-8.3 [facility] Comment on above: Order Comment: Yes: Add to Previous draw if able Performed By: #### 9 9908, 34741 #### [facility] [address] [place] [address], [place] POC GLUCOSE LABon 10-22-2021 Glucose [Mass/Vol] 119 mg/dL High 70-100 [facility] Comment on above: Performed By: #### 8 5499 #### [facility] [address] [facility] [place], [place] [id number] [place] [address] *SARS-CoV-2 COVID-19on 10-21 SARS-CoV-2 (COVID-19) RNA GALLO+probe Ql (Unsp spec) Not detected Normal Not Detected [facility] Comment on above: Order Comment: ORDER ED PER JIMMIE MARLEY RN AT 0031 The Aptima SARS-CoV-2 assay is a nucleic acid amplification test intended for the qualitative detection of RNA from SARS-CoV-2 isolated and purified from nasopharyngeal (NODE JS DEVELOPER),oropharyngeal (OP), nasal swab, sputum, and bronchoalveolar lavage (BAL) specimens from patients with signs and symptoms of infection who are suspected of COVID-19. Results are for the identification of SARS-CoV-2 RNA. The SARS-CoV-2 RNA is generally detectable during the acute phase of infection. The Aptima SARS-CoV-2 Assay on the [employer] Fusion system is intended for use by laboratory personnel specifically instructed and trained in the operation of the [place] [employer] system. The Aptima SARS-CoV-2 assay is only for use under the Food and Drug Administration Emergency Use Authorization. Testing is limited to laboratories certified under the Clinical Laboratory Improvement Amendments of 1988 (CLIA), 42 U.S.C. ???263a, to perform high complexity tests. Not Detected: Not detected does not preclude SARS-CoV-2 infection and should not be used as the sole basis for patient management decisions. Not detected results must be combined with clinical observations, patient history, and epidemiological information. Performed By: #### 3 1792 #### [facility] [address] [facility] [address], [facility] BASIC METABOLIC PANELon 06- Calcium [Mass/Vol] 8.4 mg/dL Low 8.6-10.3 [facility] Comment on above: Order Comment: No: D o not add to previous draw Performed By: #### 0 0071, 19737 #### [facility] [address] [facility] [address], [facility] Chloride [Moles/Vol] 110 mmol/L High 98-107 [facility] Comment on above: Order Comment: No: D o not add to previous draw Performed By: #### 0 0071, 23485 #### [facility] [address] [place] [address], [place] CO2 [Moles/Vol] 24 mmol/L Normal 21-31 [facility] Comment on above: Order Comment: No: D o not add to previous draw Performed By: #### 0 0071, 10772 #### [facility] [address] [place] [address], [place] Creatinine [Mass/Vol] 1.96 mg/dL High 0.70-1.30 [facility] Comment on above: Order Comment: No: D o not add to previous draw Performed By: #### 0 0071, 84524 #### [facility] [address] [place] [address], [place] eGFR- 41 ml/min/1.73sq m Abnormal >60 [facility] Comment on above: Order Comment: No: D o not add to previous draw Performed By: #### 0 0071, 89577 #### [facility] [address] [place] [address], [place] eGFR- non- 34 ml/min/1.73sq m Abnormal >60 [facility] Comment on above: Order Comment: No: D o not add to previous draw Performed By: #### 0 0071, 00256 #### [facility] [address] [place] [address], [place] Glucose [Mass/Vol] 106 mg/dL High 70-100 [facility] Comment on above: Order Comment: No: D o not add to previous draw Performed By: #### 0 0071, 57041 #### [facility] [address] [place] [address], [place] Potassium [Moles/Vol] 3.9 mmol/L Normal 3.5-5.1 [facility] Comment on above: Order Comment: No: D o not add to previous draw Performed By: #### 0 0071, 08893 #### [facility] [address] [place] [address], [facility] Sodium [Moles/Vol] 141 mmol/L Normal 136-145 [facility] Comment on above: Order Comment: No: D o not add to previous draw Performed By: #### 0 0071, 88740 #### [facility] [address] [place] [address], [facility] Urea nitrogen [Mass/Vol] 35 mg/dL High 7-25 [facility] Comment on above: Order Comment: No: D o not add to previous draw Performed By: #### 0 0071, 49774 #### [facility] [address] [place] [address], [facility] CBC COMPLETE BLOOD COUNTon 0 10-21-2021 Erythrocyte distribution width (RBC) [Ratio] 14.0 % Normal 11.5-15.0 [facility] Comment on above: Order Comment: No: D o not add to previous draw Performed By: #### 8 [id number] #### [facility] [address] [place] [address], [facility] Hematocrit (Bld) [Volume fraction] 37.9 % Low 39.0-50.0 [facility] Comment on above: Order Comment: No: D o not add to previous draw Performed By: #### 8 5499 #### [facility] [address] [place] [address], [facility] Hemoglobin (Bld) [Mass/Vol] 12.4 g/dL Low 13.0-17.0 [facility] Comment on above: Order Comment: No: D o not add to previous draw Performed By: #### 8 5499 #### [facility] [address] [place] [address], [place] MCH (RBC) [Entitic mass] 27.0 pg Normal 27.0-33.0 [facility] Comment on above: Order Comment: No: D o not add to previous draw Performed By: #### 8 5499 #### [facility] [address] [place] [address], [facility] MCHC (RBC) [Mass/Vol] 32.7 g/dL Normal 32.0-35.0 [facility] Comment on above: Order Comment: No: D o not add to previous draw Performed By: #### 8 [id number] #### [facility] [address] [place] [address], [facility] MCV (RBC) [Entitic vol] 82.4 fL Normal 82.0-98.0 [facility] Comment on above: Order Comment: No: D o not add to previous draw Performed By: #### 8 [id number] #### [facility] [address] Nucleated RBC/100 WBC (Bld) [Ratio] 0 % Normal 0-0 [facility] Comment on above: Order Comment: No: D o not add to previous draw Performed By: #### 8 [id number] #### [facility] [address] [facility] [address], [facility] PLAT CNT 138 10*3/uL Low 150-400 [facility] Comment on above: Order Comment: No: D o not add to previous draw Performed By: #### 8 [id number] #### [facility] [address] [facility] [address], [facility] RBC (Bld) [#/Vol] 4.60 10*6/uL Normal 4.20-5.70 [facility] Comment on above: Order Comment: No: D o not add to previous draw Performed By: #### 8 [id number] #### [facility] [address] [place] [address], [facility] WBC (Bld) [#/Vol] 6.81 10*3/uL Normal 4.00-10.60 [facility] Comment on above: Order Comment: No: D o not add to previous draw Performed By: #### 8 [id number] #### [facility] [address] [place] [address], [facility] MAGNESIUM BLOODon 10-21-2021 Magnesium [Mass/Vol] 1.9 mg/dL Normal 1.9-2.7 [facility] Comment on above: Order Comment: No: D o not add to previous draw Performed By: #### 0 0071, 16597 #### [facility] [address] [place] [address], [facility] POC GLUCOSE LABon 10-21-2021 Glucose [Mass/Vol] 124 mg/dL High 70-100 [facility] Comment on above: Performed By: #### 8 [id number] #### [facility] [address] [facility] [place] [address], [facility] Glucose [Mass/Vol] 101 mg/dL High 70-100 [facility] Comment on above: Performed By: #### 8 [id number] #### [facility] [address] [place] [address], [facility] POC SARS COV2 ANTIGEN NEGATI VEon 10-21-2021 POC SARS COV2 ANTIGEN NEG Negative Normal NEGATIVE [facility] Comment on above: Result Comment: Nega tive results should be treated as presumptive and confirmation with a molecular assay, if necessary, for patient management, may be performed. Negative results do not rule out SARS-CoV-2 infection and not should be used as the sole basis for treatment or patient management decisions, including infection control decisions. Negative results should be considered in the context of a patient's recent exposures, history, and the presence of clinical signs and symptoms consistent with COVID-19. The Clarity COVID-19 Antigen Rapid Test Cassette is a rapid chromatographic immunoassay intended for the qualitative detection of the nucleocapsid protein antigen from SARS-CoV-2 in direct nasopharyngeal swab (NODE JS DEVELOPER) specimens from individuals who are suspected of COVID-19 by their healthcare provider within the first six days of symptom onset. Testing is limited to laboratories certified under the Clinical Laboratory Improvement Amendments of 1988 (CLIA), 42 U.S.C. ???263a, that meet the requirements to perform moderate complexity, high complexity, or waived tests. This test is authorized for use at the Point of Care (POC), i.e., in patient care settings operating under a CLIA Certificate of Waiver, Certificate of Compliance, or Certificate of Accreditation. Performed By: #### 3 2044 #### [facility] [address] [facility] [place] [address], [facility] POC GLUCOSE LABon 10-20-2021 Glucose [Mass/Vol] 179 mg/dL High 70-100 [facility] Comment on above: Performed By: #### 8 [id number] #### [facility] [address] [place] [address], [facility] Glucose [Mass/Vol] 91 mg/dL Normal 70-100 [facility] Comment on above: Performed By: #### 8 [id number] #### [facility] [address] [place] [address], [facility] COVID Quick Testingon 2021 Result Negative [employer] Other Quick Fluon 10-16-2021 FLUAV Ab CF (S) [Titer] Negative [place] Other FLUBV Ab CF (S) [Titer] Negative [employer] Other NM STRESS/REST MULTIon 09-30 NM STRESS/REST MULTI Patient: MAURY ISSA Exam Date: 09/30/2021 : 1950 Gender:M Ordering : IZA CASANOVA Admission #: [id number] Family : Order #: [id number] CLICK HERE TO VIEW EXAM RADIOLOGY REPORT PROCEDURE: RADIONUCLIDE IMAGING STRESS/REST MULTI COMPARISON: None. INDICATIONS: Chest pain TECHNIQUE: Exam Description: Stress/Rest one day protocol gated SPECT Rest Imagin.3 mCi Tc-99m Cardiolite IV on 09/30/2021 Stress Imaging 29.7 mCi Tc-99m Cardiolite IV on 09/30/2021 Exercise Protocol: 0.4 mg Lexiscan given IV Heart Rate (bpm): Rest: 55 Max: 96 PMHR: 63 Blood Pressure: Rest: 112/68 Max: 132/68 Symptoms: chest pain Rest and peak stress ECG findings were non-diagnostic and the exercise portion of the study was Non-diagnostic per attending physician Dr. Rajan . For more details please see separate cardiac stress test report. FINDINGS: QUALITY OF STUDY: Excellent. PERFUSION DEFECT: LOCATION: Basal inferior. Mid-inferior. Apical inferior. SIZE: Medium (3-4 segments). SEVERITY: Mild. TYPE: Persistent. WALL MOTION: Normal. LV SIZE: Normal. 120 mL. TID / TCD: None; 0.8 LVEF: Normal. Calculated EF 65%. SUMMARY: Myocardial perfusion imaging study has ABNORMAL findings. CONCLUSION: 1. No acute or reversible ischemia. 2. Diaphragm attenuation artifact versus mild fixed ischemia/remote infarction of inferior wall. Diaphragm attenuation artifact is favored. 3. Normal wall motion and ejection fraction. Dictated by: Althea Price M.D. on 10/01/2021 at 08:38 Approved by: Althea Price M.D. on 10/01/2021 at 08:40 Normal [facility] ECHOCARDIO M/2D COMPLETEon 0 09-24-2021 ECHOCARDIO M/2D COMPLETE Patient: MAURY ISSA Exam Date: 09/24/2021 : 1950 Gender:M Ordering : IZA CASANOVA Admission #: [id number] Family : DR MASON MEMBRENO M.D. Order #: [id number] CLICK HERE TO VIEW EXAM ECHOCARDIOGRAM REPORT PROCEDURE: CARDIO PULMONARY ECHOCARDIO M/2D COMP INDICATIONS: Dyspnea on exertion, atrial fibrillation, hypertension COMPARISON: None. DESCRIPTION: COMPLETE ECHOCARDIOGRAM Real-time transthoracic echocardiography with 2D, M-mode, spectral and color flow Doppler performed. QUALITY: Technical quality was good. LEFT VENTRICLE: Normal chamber size. Proximal septal hypertrophy (sigmoid septum). Normal left ventricular systolic function with no wall motion abnormality. No evidence of LV outflow tract obstruction. LV EF: Normal left ventricular ejection fraction, (65-70%). DIASTOLIC: Diastolic function is indeterminate. ATRIAL SEPTUM: Visually appears intact. LEFT ATRIUM: Normal chamber size. RIGHT ATRIUM: Normal chamber size. RIGHT VENTRICLE: Normal chamber size. Normal right ventricular systolic function. TRICUSPID VALVE: Normal mobility and thickness. No stenosis with trivial regurgitation. Unable to assess right-sided pressures due to lack of measurable tricuspid regurgitation. MITRAL VALVE: Normal mobility and thickness. No evidence of mitral valve stenosis. There is no mitral annular calcification. Mild mitral regurgitation. AORTIC VALVE: Normal trileaflet appearance. Thickened aortic valve. Normal leaflet mobility. No evidence of aortic valve stenosis. Mild aortic regurgitation. AORTIC ROOT: Normal diameter and appearance. Ascending aorta is normal in size. PULMONIC VALVE: Normal thickness and mobility. No stenosis. No regurgitation. PERICARDIUM: No evidence of pericardial effusion. IVC: Collapses with inspirations. PLEURA: CONCLUSION: 1. Left ventricular systolic function is normal. LVEF is 65-70%. Proximal septal hypertrophy is seen without left ventricular outflow tract obstruction. 2. Normal right ventricular systolic function. 3. Mild mitral and aortic regurgitation. 4. No pericardial effusion. 5. Unable to assess right-sided pressures due to lack of measurable tricuspid regurgitation. Adult Echocardiography Procedure Report Left Ventricle LVEDD (3.7 - 5.6 cm): 4.19 cm LVESD (2.2 - 4.0 cm): 2.42 cm LVIVS thickness (0.6 - 1.2 cm): 1.80 cm LVPW thickness (0.5 - 1.0 cm): 1.31 cm e': 9.32 cm/s E - e': 8 LVOT Area (cm2): 4.52 cm2 LVOT Diameter 2.40 cm Left Ventricular Ejection Fraction: 65-70 % Left Atrium LA Volume Index (2D A2C): 19.30 ml/m2 Left Atrium Systolic Dimension: 4.40 cm Left Atrium Systolic Area(A2C): 17.10 cm2 Left Atrium Systolic Area(A4C): 24.10 cm2 Left Atrium Systolic Volume(A2C): 18286 mm3 Left Atrium Systolic Volume(A4C): 33384 mm3 Mitral Valve MV E to A Ratio: 0.90 Mitral Valve A-Wave Peak Velocity: 85.40 cm/s Mitral Valve E-Wave Peak Velocity: 74.50 cm/s Deceleration Time: 283 ms Right Ventricle Aorta AO Root Diam: 4.00 cm Aortic Valve AoV Area (Peak Darnell): 4.11 cm2 AoV Area (VTI): 4.46 cm2 Deceleration Treutlen: 1950 mm/s2 Pressure Half-Time: 712 ms Peak Velocity: 474.00 cm/s Peak Gradient: 90 mm[Hg] Peak Velocity(Antegrade Flow): 164.00 cm/s Peak Gradient(Antegrade Flow): 11 mm[Hg] Mean Velocity(Antegrade Flow): 118.00 cm/s Mean Gradient(Antegrade Flow): 6 mm[Hg] Velocity Time Integral: 38.10 cm Tricuspid Valve Pulmonic Valve Peak Velocity: 91.20 cm/s Peak Gradient: 3 mm[Hg] Right Atrium Dictated by: Severo Johnson M.D. on 09/24/2021 at 13:12 Approved by: Severo Johnson M.D. on 09/24/2021 at 13:18 Normal [facility] Basic Metab w/rfx MGon 12-30 (cont.) Normal [facility] Comment on above: Result Comment: Aver age GFR for 60-69 years old: 85 mL/min/1.73sq m Chronic Kidney Disease: <60 mL/min/1.73sq m Kidney failure: <15 mL/min/1.73sq m eGFR calculated using average adult body mass. Additional eGFR calculator available at: http://www.[employer]/multiple_crcl_2012.htm Performed By: #### C DP, BMPX #### [facility] [address] [place] [address] Hand Winder: Brian Lewis MD Anion gap [Moles/Vol] 11 mmol/L Normal - [facility] Comment on above: Performed By: #### C DP, BMPX #### [facility] [address] [place] [address] Hand Winder: Brian Lewis MD BUN/CRE Ratio 15 Normal - [facility] Comment on above: Performed By: #### C DP, BMPX #### [facility] [address] [place] [address] Hand Winder: Brian Lewis MD Calcium [Mass/Vol] 9.2 mg/dL Normal 8.6-10.4 [facility] Comment on above: Performed By: #### C DP, BMPX #### [facility] [address] [place], [place] [id number] Hand Winder: Brian Lewis MD Chloride [Moles/Vol] 102 mmol/L Normal 98-107 [facility] Comment on above: Performed By: #### C DP, BMPX #### [facility] [address] [place], [place] [id number] Hand Winder: Brian Lewis MD CO2 [Moles/Vol] 28 mmol/L Normal 20-31 [facility] Comment on above: Performed By: #### C DP, BMPX #### [facility] [address] [place], [place] [id number] Hand Winder: Brian Lewis MD Creatinine [Mass/Vol] 1.69 mg/dL High 0.70-1.20 [facility] Comment on above: Performed By: #### C DP, BMPX #### [facility] [address] [place], [place] [id number] Hand Winder: Brian Lewis MD GFR, Amer 49 mL/min Low >60 [facility] Comment on above: Performed By: #### C DP, BMPX #### [facility] [address] [place], [place] [id number] Hand Winder: Brian Lewis MD GFR,non Amer 41 mL/min Low >60 [facility] Comment on above: Performed By: #### C DP, BMPX #### [facility] [address] [place], [place] [id number] Hand Winder: Brian Lewis MD Glucose [Mass/Vol] 75 mg/dL Normal 70-99 [facility] Comment on above: Performed By: #### C DP, BMPX #### [facility] [address] [place], [place] [id number] Hand Winder: Brian Lewis MD Potassium [Moles/Vol] 4.8 mmol/L Normal 3.7-5.3 [facility] Comment on above: Performed By: #### C DP, BMPX #### [facility] [address] [place] [address] Hand Winder: Brian Lewis MD Sodium [Moles/Vol] 141 mmol/L Normal 135-144 [facility] Comment on above: Performed By: #### C DP, BMPX #### [facility] [address] [place] [address] Hand Winder: Brian Lewis MD Staging: Normal [facility] Comment on above: Result Comment: Stag e 1: Some kidney damage normal GFR Stage 2: Mild kidney damage GFR 60-89 Stage 3: Moderate kidney damage GFR 30-59 Stage 4: Severe kidney damage GFR 15-29 Stage 5: Severe kidney damage GFR <15 ESRD - chronic treatment by dialysis or transplant Performed By: #### C DP, BMPX #### [facility] [address] [place] [address] [place] [address] Hand Winder: Brian Lewis MD Urea nitrogen [Mass/Vol] 26 mg/dL High 8- [facility] Comment on above: Performed By: #### C DP, BMPX #### [facility] [address] [place] [address] Hand Winder: Brian Lewis MD Basic Metabolic Panel w/ Ref arnold to MGon 12-30-2018 Anion gap [Moles/Vol] 11 mmol/L 9 - 17 mmol/L [place] Bun/Cre Ratio 15 [place] Calcium [Mass/Vol] 9.2 mg/dL 8.6 - 10. 4 mg/dL [place] Chloride [Moles/Vol] 102 mmol/L 98 - 10 7 mmol/L [place] CO2 [Moles/Vol] 28 mmol/L 20 - 31 mmol/L [place] Creatinine [Mass/Vol] 1.69 mg/dL High 0.7 - 1.2 mg/dL [place] GFR 49 mL/min Low >60 [place] GFR Non- 41 mL/min Low >60 [place] Glucose [Mass/Vol] 75 mg/dL 70 - 99 mg/dL [place] Interpretation and review of laboratory results Abnormal [place] Potassium [Moles/Vol] 4.8 mmol/L 3.7 - 5.3 mmol/L [place] Sodium [Moles/Vol] 141 mmol/L 135 - 144 mmol/L [place] Urea nitrogen [Mass/Vol] 26 mg/dL High 8 - 23 mg/dL [place] CBC Auto Differentialon 12-08 Basophils (Bld) [#/Vol] 0.03 10*3/uL [place] Basophils/100 WBC (Bld) 0 % 0 - 2 % M [place] Differential Type NOT REPORTED [place] Eosinophils (Bld) [#/Vol] 0.19 10*3/uL [place] Eosinophils/100 WBC (Bld) 2 % 1 - 4 % [place] Erythrocyte distribution width (RBC) [Ratio] 13.4 % 11.8 - 14.4 % [place] Hematocrit (Bld) [Volume fraction] 41.4 % 40.7 - 50.3 % [place] Hemoglobin (Bld) [Mass/Vol] 13.3 g/dL 13 - 17 g/dL [place] Immature granulocytes (Bld) [#/Vol] 0.04 10*3/uL [place] Immature granulocytes (Bld) [#/Vol] 0 % 0 [place] Interpretation and review of laboratory results Abnormal [place] Lymphocytes (Bld) [#/Vol] 1.46 10*3/uL [place] Lymphocytes/100 WBC (Bld) 15 % Low 24 - 43 % [place] MCH (RBC) [Entitic mass] 26.9 pg 25.2 - 33.5 pg [place] MCHC (RBC) [Mass/Vol] 32.1 g/dL 28.4 - 34.8 g/dL [place] MCV (RBC) [Entitic vol] 83.8 fL 82.6 - 102.9 fL [place] Monocytes (Bld) [#/Vol] 0.66 10*3/uL [place] Monocytes/100 WBC (Bld) 7 % 3 - 12 % [place] Platelet mean volume (Bld) [Entitic vol] 10.0 fL 8.1 - 13.5 fL [place] Platelets (Bld) [#/Vol] NOT REPORTED [place] Platelets (Bld) [#/Vol] 174 10*3/uL [place] RBC (Bld) [#/Vol] 4.94 10*6/uL 4.21 - 5.7 7 m/uL [place] RBC morphology finding Nom (Bld) NOT REPORTED [place] Segmented neutrophils/100 WBC (Bld) 76 % High 36 - 65 % [place] Segs Absolute 7.36 [place] WBC (Bld) [#/Vol] 9.7 10*3/uL [place] WBC (Bld) [#/Vol] 0.0 10*3/uL 0.0 per 10 0 WBC [place] WBC Morphology NOT REPORTED [place], [place] CBC with Diffon 12-30-2018 Abs. Basophil 0.03 k/uL Normal 0.00-0.20 [facility] Comment on above: Performed By: #### C DP, BMPX #### [facility] [address] [place] [address] Hand Winder: Brian Lewis MD Abs.Imm.Granulocyte 0.04 k/uL Normal 0.00-0.30 [facility] Comment on above: Performed By: #### C DP, BMPX #### [facility] [address] [place] [address] Hand Winder: Brian Lewis MD Abs.Neutrophil (Seg) 7.36 k/uL Normal 1.50-8.10 [facility] Comment on above: Performed By: #### C DP, BMPX #### [facility] [address] [place] [id number] Hand Winder: Brian Lewis MD Basophils/100 WBC (Bld) 0 % Normal 0-2 [facility] Comment on above: Performed By: #### C DP, BMPX #### [address] [place] [address] Hand Winder: Brian Lewis MD Eosinophils (Bld) [#/Vol] 0.19 10*3/uL Normal 0.00-0.44 [facility] Comment on above: Performed By: #### C DP, BMPX #### [address] [place], [facility]83 Hand Winder: Brian Lewis MD Eosinophils/100 WBC (Bld) 2 % Normal 1-4 [facility] Comment on above: Performed By: #### C DP, BMPX #### [address] [place] [id number] Hand Winder: Brian Lewis MD Erythrocyte distribution width (RBC) [Ratio] 13.4 % Normal 11.8-14.4 [facility] Comment on above: Performed By: #### C DP, BMPX #### [address] [place], [facility]83 Hand Winder: Brian Lewis MD Hematocrit (Bld) [Volume fraction] 41.4 % Normal 40.7-50.3 [facility] Comment on above: Performed By: #### C DP, BMPX #### [address] [place] [id number] Hand Winder: Brian Lewis MD Hemoglobin (Bld) [Mass/Vol] 13.3 g/dL Normal 13.0-17.0 [facility] Comment on above: Performed By: #### C DP, BMPX #### [facility] [address] [place], [place] [address] Hand Winder: Brian Lewis MD Immature granulocytes (Bld) [#/Vol] 0 % Normal 0 [facility] Comment on above: Performed By: #### C DP, BMPX #### [facility] [address] [place], [place] [address] Hand Winder: Brian Lewis MD Lymphocytes (Bld) [#/Vol] 1.46 10*3/uL Normal 1.10-3.70 [facility] Comment on above: Performed By: #### C DP, BMPX #### [facility] [address] [place] [address] Hand Winder: Brian Lewis MD Lymphocytes/100 WBC (Bld) 15 % Low 24-43 [facility] Comment on above: Performed By: #### C DP, BMPX #### [facility] [address] [place], [place] [address] Hand Winder: Brian Lewis MD MCH (RBC) [Entitic mass] 26.9 pg Normal 25.2-33.5 [facility] Comment on above: Performed By: #### C DP, BMPX #### [facility] [address] [place], [place] [address] Hand Winder: Brian Lewis MD MCHC (RBC) [Mass/Vol] 32.1 g/dL Normal 28.4-34.8 [facility] Comment on above: Performed By: #### C DP, BMPX #### [facility] [address] [place] [id number] Hand Winder: Brian Lewis MD MCV (RBC) [Entitic vol] 83.8 fL Normal 82.6-102.9 M [facility] Comment on above: Performed By: #### C DP, BMPX #### [facility] [address] [place], [place] [id number] Hand Winder: Brian Lewis MD Monocytes (Bld) [#/Vol] 0.66 10*3/uL Normal 0.10-1.20 [facility] Comment on above: Performed By: #### C DP, BMPX #### [facility] [address] [place], [place] [id number] Hand Winder: Brian Lewis MD Monocytes/100 WBC (Bld) 7 % Normal 3-12 M [facility] Comment on above: Performed By: #### C DP, BMPX #### [facility] [address] [place], [facility]83 Hand Winder: Brian Lewis MD Neutrophil (Seg) 76 % High 36-65 [facility] Comment on above: Performed By: #### C DP, BMPX #### [facility] [address] [place], [facility]83 Hand Winder: Brian Lewis MD NRBC Automated 0.0 per 100 WBC Normal 0.0 [facility] Comment on above: Performed By: #### C DP, BMPX #### [facility] [address] [place], [place] [id number] Hand Winder: Brian Lewis MD Platelet mean volume (Bld) [Entitic vol] 10.0 fL Normal 8.1-13.5 [facility] Comment on above: Performed By: #### C DP, BMPX #### [facility] [address] [place], [place] [id number] Hand Winder: Brian Lewis MD Platelets (Bld) [#/Vol] 174 10*3/uL Normal 138-453 [facility] Comment on above: Performed By: #### C DP, BMPX #### [facility] [address] [place], [facility]83 Hand Winder: Brian Lewis MD RBC (Bld) [#/Vol] 4.94 10*6/uL Normal 4.21-5.77 [facility] Comment on above: Performed By: #### C DP, BMPX #### [facility] [address] [place] [address] Hand Winder: Brian Lewis MD WBC (Bld) [#/Vol] 9.7 10*3/uL Normal 3.5-11.3 [facility] Comment on above: Performed By: #### C DP, BMPX #### [facility] [address] [place] [address] Hand Winder: Brian Lewis MD Auto Diff Performed NOT REPORTED Normal [facility] Comment on above: Performed By: #### C DP, BMPX #### [facility] [address] [place] [id number] Hand Winder: Brian Lewis MD Platelets (Bld) [#/Vol] NOT REPORTED Normal [facility] Comment on above: Performed By: #### C DP, BMPX #### [facility] [address] [place] [id number] Hand Winder: Brian Lewis MD RBC morphology finding Nom (Bld) NOT REPORTED Normal [facility] Comment on above: Performed By: #### C DP, BMPX #### [facility] [address] [place] [id number] Hand Winder: Brian Lewis MD WBC Morphology NOT REPORTED Normal [facility] Comment on above: Performed By: #### C DP, BMPX #### [facility] [address] [place] [address] Hand Winder: Brian Lewis MD Metabolic Panelon 12-30-2018 GFR/1.73 sq M predicted among non-blacks MDRD (S/P/Bld) [Vol rate/Area] [facility] [place] Comment on above: Average GFR for 60-6 9 years old: 85 mL/min/1.73sq m Chronic Kidney Disease: <60 mL/min/1.73sq m Kidney failure: <15 mL/min/1.73sq m eGFR calculated using average adult body mass. Additional eGFR calculator available at: http://www.[employer]/multiple_crcl_2012.htm Stage 1: Some kidney damage normal GFR Stage 2: Mild kidney damage GFR 60-89 Stage 3: Moderate kidney damage GFR 30-59 Stage 4: Severe kidney damage GFR 15-29 Stage 5: Severe kidney damage GFR <15 ESRD - chronic treatment by dialysis or transplant Vital Signs Date Time Vital Sign Value Performing Clinician Facility 07-12-2024 10:18-0500 Body height 172.7 cm Kyrie Carney DPM Work Phone: [facility] 07-12-2024 10:18-0500 Body mass index (BMI) [Ratio] 31.32 kg/m2 Kyrie Carney DPM Work Phone: [facility] 07-12-2024 10:18-0500 Body weight 93.44 kg Kyrie Carney DPM Work Phone: [facility] 07-12-2024 10:18-0500 Respiratory rate 16 /min Kyrie Carney DPM Work Phone: [facility] 07-02-2024 08:45-0500 Body height 172.7 cm Mason Membreno MD Work Phone: [facility] 07-02-2024 08:45-0500 Body mass index (BMI) [Ratio] 31.32 kg/m2 Mason Membreno MD Work Phone: [facility] 07-02-2024 08:45-0500 Body weight 93.44 kg Mason Membreno MD Work Phone: [facility] 07-02-2024 08:45-0500 Diastolic blood pressure 82 mm[Hg] Mason Membreno MD Work Phone: [facility] 07-02-2024 08:45-0500 Heart rate 54 /min Mason Membreno MD Work Phone: [facility] 07-02-2024 08:45-0500 SaO2% (BldA) [Mass fraction] 96 % Mason Membreno MD Work Phone: [facility] 07-02-2024 08:45-0500 Systolic blood pressure 130 mm[Hg] Mason Membreno MD Work Phone: [facility] 04-19-2024 10:21-0500 Body height 172.7 cm Kyrie Carney DPM Work Phone: [facility] 04-19-2024 10:21-0500 Body mass index (BMI) [Ratio] 29.8 kg/m2 Kyrie Carney DPM Work Phone: [facility] 04-19-2024 10:21-0500 Body weight 88.91 kg Kyrie Carney DPM Work Phone: [facility] 04-19-2024 10:21-0500 Respiratory rate 16 /min Kyrie Carney DPM Work Phone: [facility] 02-27-2024 11:02-0400 Body height 172.7 cm Mason Membreno MD Work Phone: [facility] 02-27-2024 11:02-0400 Body mass index (BMI) [Ratio] 29.8 kg/m2 Mason Membreno MD Work Phone: [facility] 02-27-2024 11:02-0400 Body weight 88.91 kg Mason Membreno MD Work Phone: [facility] 02-27-2024 11:02-0400 Diastolic blood pressure 72 mm[Hg] Mason Membreno MD Work Phone: [facility] 02-27-2024 11:02-0400 Heart rate 51 /min Mason Membreno MD Work Phone: [facility] 02-27-2024 11:02-0400 SaO2% (BldA) [Mass fraction] 96 % Mason Membreno MD Work Phone: [facility] 02-27-2024 11:02-0400 Systolic blood pressure 122 mm[Hg] Mason Membreno MD Work Phone: [facility] 02-07-2024 09:40-0400 Body height 175.3 cm Sher White MD Work Phone: [facility] 02-07-2024 09:40-0400 Body mass index (BMI) [Ratio] 28.06 kg/m2 Sher White MD Work Phone: [facility] 02-07-2024 09:40-0400 Body weight 86.18 kg Sher White MD Work Phone: [facility] 02-07-2024 09:40-0400 Diastolic blood pressure 96 mm[Hg] Sher White MD Work Phone: [facility] 02-07-2024 09:40-0400 Heart rate 65 /min Sher White MD Work Phone: [facility] 02-07-2024 09:40-0400 Systolic blood pressure 133 mm[Hg] Sher White MD Work Phone: [facility] 02-06-2024 09:02-0400 Body height 172.7 cm Mason Membreno MD Work Phone: [facility] 02-06-2024 09:02-0400 Body mass index (BMI) [Ratio] 29.35 kg/m2 Mason Membreno MD Work Phone: [facility] 02-06-2024 09:02-0400 Body weight 87.54 kg Mason Membreno MD Work Phone: [facility] 02-06-2024 09:02-0400 Diastolic blood pressure 64 mm[Hg] Mason Membreno MD Work Phone: [facility] 02-06-2024 09:02-0400 Heart rate 62 /min Mason Membreno MD Work Phone: [facility] 02-06-2024 09:02-0400 SaO2% (BldA) [Mass fraction] 96 % Mason Membreno MD Work Phone: [facility] 02-06-2024 09:02-0400 Systolic blood pressure 126 mm[Hg] Mason Membreno MD Work Phone: [facility] 02-02-2024 14:29040 Body height 172.7 cm Sophia Zaldivar NODE JS DEVELOPER Work Phone: [facility] 02-02-2024 14:29-0400 Body mass index (BMI) [Ratio] 29.1 kg/m2 Sophia Zaldivar [employer] JS DEVELOPER Work Phone: [facility] 02-02-2024 [id number]:29040 Body weight 86.82 kg Sophia Zaldivar [employer]DE JS DEVELOPER Work Phone: [facility] 02-02-2024 14:29-0400 Diastolic blood pressure 90 mm[Hg] Sophia Zaldivar NODE JS DEVELOPER Work Phone: [facility] 02-02-2024 14:29-0400 Heart rate 62 /min Sophia Zaldivar NODE JS DEVELOPER Work Phone: [facility] 02-02-2024 14:29-0400 Respiratory rate 18 /min Sophia Zaldivar NODE JS DEVELOPER Work Phone: [facility] 02-02-2024 14:29-0400 SaO2% (BldA) [Mass fraction] 99 % Sophia Zaldivar NODE JS DEVELOPER Work Phone: [facility] 02-02-2024 14:29-0400 Systolic blood pressure 132 mm[Hg] Sophia Zaldivar NODE JS DEVELOPER Work Phone: [facility] 01-27-2024 17:45-0400 Body height 177.8 cm Main [facility] 01-27-2024 17:45-0400 Body mass index (BMI) [Ratio] 28.3 kg/m2 [facility] 01-27-2024 17:45-0400 Body temperature 98.9 [degF] [facility] 01-27-2024 17:45-0400 Body weight 89.35 kg [facility] 01-27-2024 17:45-0400 Diastolic blood pressure 77 mm[Hg] [facility] 01-27-2024 17:45-0400 Heart rate 64 /min [facility] 01-27-2024 17:45-0400 Respiratory rate 18 /min [facility] 01-27-2024 17:45-0400 SaO2% (BldA) [Mass fraction] 96 % [facility] 01-27-2024 17:45-0400 Systolic blood pressure 139 mm[Hg] [facility] 01-12-2024 14:00-0400 Body height 172.7 cm Kyrie Carney DPM Work Phone: [facility] 01-12-2024 14:00-0400 Body mass index (BMI) [Ratio] 29.19 kg/m2 Kyrie Carney DPM Work Phone: [facility] 01-12-2024 14:00-0400 Body weight 87.09 kg Kyrie Carney DPM Work Phone: [facility] 01-12-2024 14:00-0400 Diastolic blood pressure 79 mm[Hg] Kyrie Carney DPM Work Phone: [facility] 01-12-2024 14:00-0400 Heart rate 83 /min Kyrie Carney DPM Work Phone: [facility] 01-12-2024 14:00-0400 Systolic blood pressure 128 mm[Hg] Kyrie Carney DPM Work Phone: [facility] 01-05-2024 15:06-0400 Body height 172.7 cm Mason Membreno MD Work Phone: [facility] 01-05-2024 15:06-0400 Body mass index (BMI) [Ratio] 29.19 kg/m2 Mason Membreno MD Work Phone: [facility] 01-05-2024 15:06-0400 Body weight 87.09 kg Mason Membreno MD Work Phone: [facility] 01-05-2024 15:06-0400 Diastolic blood pressure 70 mm[Hg] Mason Membreno MD Work Phone: [facility] 01-05-2024 15:06-0400 Heart rate 67 /min Mason Membreno MD Work Phone: [facility] 01-05-2024 15:06-0400 SaO2% (BldA) [Mass fraction] 98 % Mason Membreno MD Work Phone: [facility] 01-05-2024 15:06-0400 Systolic blood pressure 114 mm[Hg] Mason Membreno MD Work Phone: [facility] 12-26-2023 15:19-0400 Body height 172.7 cm Mason Membreno MD Work Phone: [facility] 12-26-2023 15:19-0400 Body mass index (BMI) [Ratio] 29.8 kg/m2 Mason Membreno MD Work Phone: [facility] 12-26-2023 15:19-0400 Body weight 88.91 kg Mason Membreno MD Work Phone: [facility] 12-26-2023 15:19-0400 Diastolic blood pressure 62 mm[Hg] Mason Membreno MD Work Phone: [facility] 12-26-2023 15:19-0400 Heart rate 77 /min Mason Membreno MD Work Phone: [facility] 12-26-2023 15:19-0400 SaO2% (BldA) [Mass fraction] 97 % Mason Membreno MD Work Phone: [facility] 12-26-2023 15:19-0400 Systolic blood pressure 102 mm[Hg] Mason Membreno MD Work Phone: [facility] 06-16-2023 09:30-0500 Body height 177.8 cm Kaci Torrez Other [employer] Other 06-16-2023 09:30-0500 Body mass index (BMI) [Ratio] 27.98 kg/m2 Kaci Torrez Other [employer] Other 06-16-2023 09:30-0500 Body temperature 98 [degF] Kaci Torrez Other [employer] Other 06-16-2023 09:30-0500 Body weight 88.45 kg Kaci Torrez Other [employer] Other 06-16-2023 09:30-0500 Respiratory rate 18 /min Kaci Torrez Other [employer] Other 06-16-2023 09:30-0500 SaO2% (BldA) [Mass fraction] 97 % Kaci Torrez Other [employer] Other 04-12-2023 14:30-0500 Body height 177.8 cm Esteban Lilliana Other [employer] Other 04-12-2023 14:30-0500 Body mass index (BMI) [Ratio] 27.78 kg/m2 Esteban Lilliana Other [employer] Other 04-12-2023 14:30-0500 Body weight 87.82 kg Esteban Arciniegaormack Other [employer] Other 04-12-2023 14:30-0500 Diastolic blood pressure 76 mm[Hg] Esteban Lilliana Other [employer] Other 04-12-2023 14:30-0500 Systolic blood pressure 131 mm[Hg] Esteban Steward Other [employer] Other 02-28-2023 16:37-0400 Body temperature 97.7 [degF] II Mason Membreno Work Phone: [facility] 02-28-2023 16:37-0400 Diastolic blood pressure 83 mm[Hg] II Mason Membreno Work Phone: [facility] 02-28-2023 16:37-0400 Heart rate 55 /min II Mason Membreno Work Phone: [facility] 02-28-2023 16:37-0400 Respiratory rate 18 /min II Mason Membreno Work Phone: [facility] 02-28-2023 16:37-0400 SaO2% (BldA) [Mass fraction] 99 % II Mason Membreno Work Phone: [facility] 02-28-2023 16:37-0400 Systolic blood pressure 142 mm[Hg] II Mason Membreno Work Phone: [facility] 02-28-2023 06:00-0400 Body weight 84.3 kg II Mason Membreno Work Phone: [facility] 02-27-2023 13:01-0400 Body height 172.72 cm II Mason Membreno Work Phone: [facility] 02-22-2023 09:10-0400 Body height 177.8 cm Kaci Torrez Other [employer] Other 02-22-2023 09:10-0400 Body mass index (BMI) [Ratio] 27.52 kg/m2 Kaci Torrez Other [employer] Other 02-22-2023 09:10-0400 Body temperature 97.6 [degF] Kaci Torrez Other [employer] Other 02-22-2023 09:10-0400 Body weight 87 kg Kaci Torrez Other [employer] Other 02-22-2023 09:10-0400 Diastolic blood pressure 92 mm[Hg] Kaci Torrez Other [employer] Other 02-22-2023 09:10-0400 Respiratory rate 18 /min Kaci Torrez Other [employer] Other 02-22-2023 09:10-0400 SaO2% (BldA) [Mass fraction] 97 % Kaci Torrez Other [employer] Other 02-22-2023 09:10-0400 Systolic blood pressure 126 mm[Hg] Kaci Torrez Other [employer] Other 02-18-2023 11:35-0400 Diastolic blood pressure 89 mm[Hg] II Mason Membreno Work Phone: [facility] 02-18-2023 11:35-0400 Heart rate 69 /min II Mason Membreno Work Phone: [facility] 02-18-2023 11:35-0400 Respiratory rate 16 /min II Mason Membreno Work Phone: [facility] 02-18-2023 11:35-0400 SaO2% (BldA) [Mass fraction] 98 % II Mason Membreno Work Phone: [facility] 02-18-2023 11:35-0400 Systolic blood pressure 142 mm[Hg] II Mason Membreno Work Phone: [facility] 02-18-2023 09:59-0400 Body height 172.72 cm II Mason Membreno Work Phone: [facility] 02-18-2023 09:59-0400 Body temperature 98 [degF] II Mason Membreno Work Phone: [facility] 02-18-2023 09:59-0400 Body weight 83.91 kg II Mason Membreno Work Phone: [facility] 01-11-2023 13:15-0400 Body height 177.8 cm Esteban Steward Other [employer] Other 01-11-2023 13:15-0400 Body mass index (BMI) [Ratio] 26.83 kg/m2 Esteban Steward Other [place] [employer] Other 01-11-2023 13:15-0400 Body weight 84.82 kg Esteban Steward Other [employer] Other 01-11-2023 13:15-0400 Diastolic blood pressure 63 mm[Hg] Esteban Steward Other [place] [employer] Other 01-11-2023 13:15-0400 Systolic blood pressure 87 mm[Hg] Esteban Steward Other [place] [employer] Other 10-27-2022 09:23-0400 Diastolic blood pressure 88 mm[Hg] Francisca Lue [facility] 10-27-2022 09:23-0400 Heart rate 65 /min Francisca Lue [facility] 10-27-2022 09:23-0400 Systolic blood pressure 126 mm[Hg] Francisca Lue [facility] 04-20-2022 15:00-0500 Body height 177.8 cm Esteban Steward Other [place] [employer] Other 04-20-2022 15:00-0500 Body mass index (BMI) [Ratio] 28.41 kg/m2 Esteban Steward Other [employer] Other 04-20-2022 15:00-0500 Body weight 89.81 kg Esteban Steward Other [employer] Other 04-20-2022 15:00-0500 Diastolic blood pressure 59 mm[Hg] Esteban Steward Other [employer] Other 04-20-2022 15:00-0500 Systolic blood pressure 88 mm[Hg] Esteban Steward Other [employer] Other 10-16-2021 10:00-0400 Body height 177.8 cm Kimberly Talbot Other [employer] Other 10-16-2021 10:00-0400 Body mass index (BMI) [Ratio] 29.41 kg/m2 Kimberly Talbot Other [employer] Other 10-16-2021 10:00-0400 Body temperature 97.1 [degF] Kimberly Talbot Other [employer] Other 10-16-2021 10:00-0400 Body weight 92.99 kg Kimberly Talbot Other [employer] Other 10-16-2021 10:00-0400 Respiratory rate 18 /min Kimberly Talbot Other [employer] Other 10-16-2021 10:00-0400 SaO2% (BldA) [Mass fraction] 97 % Kimberly Talbot Other [employer] Other 08-18-2021 09:47-0400 Blood Pressure Location Maury Kothari Jr. [facility] 08-18-2021 09:47-0400 Diastolic blood pressure 77 mm[Hg] Maury Kothari Jr. [facility] 04-12-2022 09:47-0400 Heart rate 63 /min Maury Kothari Jr. [facility] 08-18-2021 09:47-0400 Systolic blood pressure 108 mm[Hg] Maury Taye Johnson [facility] 12-30-2018 14:36-0400 BP Diastolic 83 mm[Hg] [place] 12-[place]-2018 14:36-0400 BP Systolic 134 mm[Hg] [place], [place] 12-30-2018 14:36-0400 Pulse Oximetry 99 % [place] 12-30-2018 14:17-0400 Body Temperature 97.3 [degF] [place] 12-30-2018 14:17-0400 Pulse (Heart Rate) 49 /min [place] 12-30-2018 14:17-0400 Respiratory Rate 22 /min [place] Encounters Encounter Date Encounter Type Care Provider Facility Start: 07-12-2024 End: 07-12-2024 Bamdylono flowspetros Carney DPM Work Phone: [facility] Start: 07-12-2024 End: 07-12-2024 Bamboo flowsheet Kyrie Carney DPM Work Phone: [facility] Start: 07-12-2024 End: 07-12-2024 Patient encounter procedure Kyrie Carney DPM Work Phone: [facility] Comment on above: Diabetes mellitus du e to underlying condition with diabetic polyneuropathy, with long-term current use of insulin ([facility]) (Primary Dx); Pain due to onychomycosis of toenails of both feet; Plantar fasciitis; Contracture of right ankle Start: 07-12-2024 End: 07-12-2024 ambulatory KYRIE CARNEY Not Available Start: 07-11-2024 End: 07-11-2024 ambulatory [facility] Start: 07-02-2024 End: 07-02-2024 Bamboo flowsheet Mason Membreno MD Work Phone: [facility] Start: 07-02-2024 End: 07-02-2024 Bamboo flowsheet Mason Membreno MD Work Phone: [facility] Start: 07-02-2024 End: 07-02-2024 Office outpatient visit 25 minutes Mason Membreno MD Work Phone: [facility] Comment on above: 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 (CMS/HCC) (Primary Dx); Chronic kidney disease, stage 3b (HCC) (CMS/HCC); Paroxysmal atrial fibrillation (CMS/HCC); Other hypertrophic cardiomyopathy (CMS/HCC); Other chronic pancreatitis (CMS/HCC); Mixed hyperlipidemia (CMS/HCC); Prostate cancer screening Start: 07-02-2024 End: 07-02-2024 ambulatory MASON MEMBRENO Not Available Start: 04-19-2024 End: 04-19-2024 Bamboo flowsheet Kyrie Carney DPM Work Phone: [facility] Start: 04-19-2024 End: 04-19-2024 Bamboo flowsheet Kyrie Carney DPM Work Phone: [facility] Start: 04-19-2024 End: 04-19-2024 Patient encounter procedure Kyrie Carney DPM Work Phone: [facility] Comment on above: Pain due to onychomy cosis of toenails of both feet (Primary Dx); Plantar fasciitis; Contracture of right ankle Start: 04-19-2024 End: 04-19-2024 ambulatory KYRIE CARNEY Not Available Start: 02-27-2024 End: 02-27-2024 Bamboo flowsheet Mason Membreno MD Work Phone: [facility] Start: 02-27-2024 End: 02-27-2024 Bamboo flowsheet Mason Membreno MD Work Phone: [facility] Start: 02-27-2024 End: 02-27-2024 Assay of hemosiderin, quant Mason Membreno MD Work Phone: [facility] Work Phone: Start: 02-27-2024 End: 02-27-2024 Patient encounter procedure Mason Membreno MD Work Phone: [facility] Comment on above: Routine general medi maría examination at health care facility (Primary Dx); ACP (advance care planning); Flu vaccine need; Type 2 diabetes mellitus with stage 3b chronic kidney disease, with long-term current use of insulin (HCC) ([facility]/HCC) Start: 02-27-2024 End: 02-27-2024 ambulatory MASON MEMBRENO Not Available Start: 02-07-2024 End: 02-07-2024 Bamboo flowsheet Sher White MD Work Phone: [facility] Start: 02-07-2024 End: 02-07-2024 Bamboo flowsheet Sher White MD Work Phone: [facility] Start: 02-07-2024 End: 02-07-2024 Office outpatient visit 15 minutes Sher White MD Work Phone: [facility] Comment on above: RLS (restless legs s yndrome) (Primary Dx); B12 deficiency; Benign essential tremor; ABEL (obstructive sleep apnea); Neurogenic pain Start: 02-07-2024 End: 02-07-2024 ambulatory SHER WHITE Not Available Start: 02-06-2024 End: 02-06-2024 Bamboo flowsheet Mason Membreno MD Work Phone: [facility] Start: 02-06-2024 End: 02-06-2024 Bamboo flowsheet Mason Membreno MD Work Phone: [facility] Start: 02-06-2024 End: 02-06-2024 Office outpatient visit 15 minutes Mason Membreno MD Work Phone: [facility] Comment on above: Primary hypertension (CMS/HCC) (Primary Dx) Start: 02-06-2024 End: 02-06-2024 ambulatory MASON Draper HASEEB Not Available Start: 02-02-2024 End: 02-02-2024 Office outpatient visit 25 minutes Sophia Zaldivar NODE JS DEVELOPER Work Phone: [facility] Comment on above: Acute bronchitis, un specified organism (Primary Dx); Acute cough Start: 02-02-2024 End: 02-02-2024 ambulatory SOPHIA ZALDIVAR Not Available Start: 02-02-2024 End: 02-02-2024 Bamboo flowsheet Sophia Zaldivar NODE JS DEVELOPER Work Phone: [facility] Start: 02-02-2024 End: 02-02-2024 Bamboo flowsheet Sophia Zaldivar NODE JS DEVELOPER Work Phone: [facility] Start: 01-27-2024 End: 01-27-2024 ambulatory [facility] Work Phone: Start: 01-27-2024 End: 01-27-2024 Patient encounter procedure [facility] Work Phone: Start: 01-13-2024 End: 01-13-2024 [facility] Start: 01-12-2024 End: 01-12-2024 Bamboo flowsheet Kyrie Carney DPM Work Phone: [facility] Start: 01-12-2024 End: 01-12-2024 Bamboo flowsheet Kyrie Carney DPM Work Phone: [facility] Start: 01-12-2024 End: 01-12-2024 Office outpatient visit 10 minutes Kyrie Carney DPM Work Phone: [facility] Comment on above: Plantar fasciitis (P rimary Dx); Contracture of right ankle; Diabetes mellitus due to underlying condition with diabetic polyneuropathy, with long-term current use of insulin (CMS/HCC); Onychomycosis; Toe pain, bilateral Start: 01-12-2024 End: 01-12-2024 ambulatory KYRIE CARNEY Not Available Start: 01-11-2024 ambulatory HERBERT Avis Robledo lity:[facility] Start: 01-11-2024 End: 01-11-2024 Subsequent hospital visit by physician Mri [facility] (I-Stat/Lg Bore/1.5t) [facility] Comment on above: Other hypertrophic c ardiomyopathy [I42.2] Start: 01-05-2024 End: 01-05-2024 Office outpatient visit 25 minutes Mason Membreno MD Work Phone: [facility] Comment on above: Hypertrophic cardiom yopathy (CMS/HCC) (Primary Dx); Primary hypertension (CMS/HCC) Start: 01-05-2024 End: 01-05-2024 ambulatory MASON MEMBRENO Not Available Start: 01-05-2024 End: 01-05-2024 Bamboo flowsheet Mason Membreno MD Work Phone: [facility] Start: 01-05-2024 End: 01-05-2024 Bamboo flowsheet Mason Membreno MD Work Phone: [facility] Start: 01-04-2024 End: 01-04-2024 Telephone encounter Francia Dumont biomedical engineering director [facility] Comment on above: Orders Start: 12-26-2023 End: 12-26-2023 Office outpatient visit 25 minutes Mason Membreno MD Work Phone: [facility] Comment on above: Hypertrophic cardiom yopathy (CMS/HCC) (Primary Dx) Start: 12-26-2023 End: 12-26-2023 ambulatory MASON MEMBRENO Not Available Start: 12-26-2023 End: 12-26-2023 Bamboo flowsheet Mason Membreno MD Work Phone: [facility] Start: 12-26-2023 End: 12-26-2023 Bamboo flowsheet Mason Membreno MD Work Phone: [facility] Start: 12-02-2023 End: 12-02-2023 ambulatory TOMAS WORRELLMOUNA [facility] Start: 11-24-2023 End: 11-24-2023 ambulatory KYRIE Steffen ANGELIKA Not Available Start: 10-27-2023 End: 10-27-2023 ambulatory KYRIE Bourne ANGELIKA Not Available Start: 10-19-2023 End: 10-19-2023 ambulatory MASON MEMBRENO Not Available Start: 10-10-2023 End: 10-10-2023 ambulatory CHRIS ARDON Not Available Start: 09-15-2023 End: 09-15-2023 ambulatory MASON MEMBRENO Not Available Start: 08-16-2023 End: 08-16-2023 ambulatory KYRIE Bourne ANGELIKA Not Available Start: 07-18-2023 End: 07-18-2023 ambulatory MASON MEMBRENO Not Available Start: 06-16-2023 End: 06-16-2023 ambulatory Kaci Torrez Other [employer] Other Start: 06-16-2023 Office outpatient vi sit 25 minutes Kaci Torrez [facility] Start: 04-12-2023 End: 04-12-2023 ambulatory Esteban Steward Other [employer] Other Start: 04-12-2023 Office outpatient vi sit 15 minutes Esteban Steward [facility] Start: 04-11-2023 End: 05-09-2023 ambulatory GALE CARNEY [facility] Start: 02-24-2023 End: 02-28-2023 Evaluation and management of inpatient II Mason Membreno Work Phone: [facility] Work Phone: Start: 02-22-2023 End: 02-22-2023 ambulatory Kaci Torrez Other [employer] Other Start: 02-22-2023 Office outpatient vi sit 25 minutes Kaci Torrez [facility] Start: 02-18-2023 Telephone encounter Esteban White [facility] Start: 02-18-2023 End: 02-18-2023 Admission to same day surgery center II Mason Membreno Work Phone: [facility] Work Phone: Start: 02-18-2023 End: 02-18-2023 ambulatory II Mason Haseeb Work Phone: [facility] Work Phone: Start: 01-11-2023 End: 01-11-2023 ambulatory Esteban Steward Other [employer] Other Start: 01-11-2023 Office outpatient ne w 45 minutes Esteban Steward [facility] Start: 10-27-2022 End: 10-28-2022 ambulatory Francisca Pierre Facility:[facility] Start: 10-27-2022 End: 10-27-2022 Patient encounter procedure Francisca Pierre [facility] Start: 09-21-[address] Mason Membreno II Facility:[id number] Start: 09-12-2022 End: 09-12-[address] MASON MEMBRENO Facility:[facility] Start: 08-27-2022 End: 08-28-[address] MASON MEMBRENO Facility:[facility] Start: 07-06-2022 End: 07-07-2022 ambulatory KYRIE CARNEY Facility:[facility] Start: 05-16-2022 Encounter for other preprocedural examination GERRY YEARTY [facility] Start: 05-13-2022 End: 05-14-2022 ambulatory GERRY YEARTY Facility:[facility] Start: 05-13-2022 End: 05-14-2022 Encounter for other preprocedural examination GERRY YEARTY Facility:[facility] Start: 04-20-2022 End: 04-20-2022 ambulatory Esteban Steward Other [employer] Other Start: 04-20-2022 Office outpatient ne w 45 minutes Esteban Steward [facility] Start: 04-14-2022 End: 04-15-2022 ambulatory APRIL Martinez Facility:[facility] Start: 02-15-2022 End: 02-15-[address] MASON MEMBRENO Facility:[facility] Start: 11-19-2021 End: 11-20-[address] SELAM ISBELL Facility:[facility] Start: 11-18-2021 End: 11-19-2021 ambulatory IZA CASANOVA Facility:[facility] Start: 11-01-2021 End: 11-01-[address] MASON MEMBRENO Facility:[facility] Start: 10-28-2021 End: 02-08-[address] MASON MEMBRENO Facility:[facility] Start: 10-23-2021 ambulatory IZA CASANOVA Facility:[facility] 1 Start: 10-20-2021 End: 10-22-2021 ambulatory TOMAS RAJAN Facility:[facility] Start: 10-16-2021 (URG) Urgent Care Visit Kimberly flores [facility] Start: 10-16-2021 End: 10-16-2021 ambulatory Kimberly Talbot Other [employer] Other Start: 09-30-2021 End: 10-01-2021 ambulatory IZAMOLLY STORMS Facility:[facility] Start: 09-24-2021 End: 09-25-2021 ambulatory IZA CASANOVA Facility:[facility] Start: 08-18-2021 End: 08-18-2021 Patient encounter procedure Maury Kothari Jr. [facility] Start: 12-30-2018 End: 12-30-2018 Emergency department patient visit MASON Draper [facility] Start: 12-30-2018 End: 12-30-2018 Emergency department patient visit Mason Membreno [facility] ED Comment on above: Hypoglycemia (Primar y Dx) Start: 09-12-2018 Patient encounter procedure Aashish Yeimy Facility:[id number] Start: 09-11-2018 Patient encounter procedure Aashish Gaffney Facility:[id number] Procedures Date Procedure Procedure Detail Performing Clinician Start: 06-13-2024 Comprehensive metabolic panel Mason landers MD Work Phone: Start: 06-13-2024 Urine albumin quantitative Mason nam MD Work Phone: Start: 02-27-2024 Hemoglobin glycosylated a1c Mason copeland MD Work Phone: Start: 01-27-2024 Quick Strep (POC) Start: 02-25-2023 X-ray of right knee II Mason Membreno Work Phone: Start: 02-25-2023 Antibody screen Esteban Steward Comment on above: Order Comment: Transfuse now? Y Number o f units to transfuse now? 2 Transfuse now? Y Number of units to transfuse now? 2 Result Comment: PERF ORMED BY: [facility] [address] [place] [address] PATHOLOGIST MATERIALS ENGINEER ALEJANDRINA EID M.D. Start: 02-18-2023 Esophagogastroduodenoscopy II Mason copeland Work Phone: Start: 02-18-2023 Colonoscopy Mason Membreno MD Work Phone: Start: 12-24-2019 Ultrasonography by transrectal approach Maury Kothari Jr. Start: 10-08-2019 Arthroplasty of knee Maury Kothari Jr. Start: 07-03-2019 Ultrasonography guided transrectal cryoablation of prostate Maury Kothari Jr. Start: 06-19-2019 Cystoscopy Francisca Pierre Start: 12-30-2018 Blood count complete auto&auto difrntl wbc MASON HASEEB Start: 12-30-2018 Comprehensive metabolic panel MASON COPELAND Start: 12-30-2018 SALINE LOCK IV MASON MEMBRENO Start: 12-30-2018 BASIC METABOLIC PANEL W/ REFLEX TO MG FOR LOW K Quique Hernández Work Phone: Start: 12-30-2018 Blood count complete auto&auto difrntl wbc Quique Hernández Work Phone: Plan of Treatment Date Care Activity Detail Author Start: 02-18-2033 Screening for malignant neoplasm of colon [facility] Start: 02-24-2027 Urine microalbumin profile DTaP,Tdap,Td Vaccine (2 - Td or Tdap) [facility] Start: 09-14-2026 Diabetes Screening Diabetes Screening [facility] Start: 04-10-2026 Glaucoma screening Diabetes: Retinopathy Screening [facility] Start: 06-13-2025 Urine screening for protein Diabetes: Urine Protein Screening [facility] Start: 03-05-2025 Urine screening for protein Diabetes: Urine Protein Screening [facility] Start: 02-26-2025 Medicare Annual Wellness (AWV) Medicare Annual Wellness (AWV) [facility] Start: 02-12-2025 End: 02-12-2025 Patient encounter procedure 02/12/2025 9:30 AM EDT [facility] [address] [facility] [address] [place] [address] Sher White MD [address] [facility] [address] [place], [place] [id number] [facility] Start: 01-17-2025 Urine screening for protein Diabetes: Urine Protein Screening [facility] Start: 01-06-2025 Glaucoma screening Diabetes: Retinopathy Screening [facility] Start: 11-22-2024 Urine screening for protein Diabetes: Urine Protein Screening [facility] Start: 10-11-2024 End: 10-11-2024 Patient encounter procedure 10/11/2024 8:30 AM EDT Office Visit [facility] [address] [facility] [address] [place] [address] Mason Membreno MD [address] [facility] [address] [place] [address] [facility] Start: 09-20-2024 End: 09-20-2024 Patient encounter procedure 09/20/2024 10:40 AM EDT Office Visit [facility] [address] [facility] [address] [place] [address] Kyrie Carney DPM [address] [facility] [address] [place] [address] [facility] Start: 09-10-2024 Hemoglobin A1c measurement Diabetes: Hemoglobin A1C WILLI Mcneal [facility] Start: 08-03-2024 Urine screening for protein Diabetes: Urine Protein Screening [facility] Start: 07-12-2024 End: 07-12-2024 Patient encounter procedure 07/12/2024 10:50 AM EST Office Visit [facility] [address] [id number] Kyrie Carney DPM [address] [id number] Diabetes mellitus due to underlying condition with diabetic polyneuropathy, with long-term current use of insulin ([facility]) (Primary Dx); Pain due to onychomycosis of toenails of both feet; Plantar fasciitis; Contracture of right ankle [facility] Comment on above: Diabetes mellitus due to underlying cond ition with diabetic polyneuropathy, with long-term current use of insulin ([facility]) (Primary Dx); Pain due to onychomycosis of toenails of both feet; Plantar fasciitis; Contracture of right ankle Start: 07-05-2024 End: 07-05-2024 Patient encounter procedure 07/05/2024 10:20 AM EST Office Visit [facility] [address] [phone] Kyrie Carney DPM [address] [address] [facility] Start: 07-02-2024 End: 07-02-2025 Lipid 1996 panel - Serum or Plasma Lipid panel Lab Routine Mixed hyperlipidemia ([facility]/HCC) Expected: 07/02/2024 (Approximate), Expires: 07/02/2025 [facility] Work Phone: Comment on above: Expected: 07/02/2024 (Approximate), Expi res: 07/02/2025 Start: 07-02-2024 End: 07-02-2024 Patient encounter procedure [facility] Comment on above: Arrived Start: 05-29-2024 Hemoglobin A1c measurement Diabetes: Hemoglobin A1C [facility] Start: 04-19-2024 End: 04-19-2024 Patient encounter procedure 04/19/2024 10:20 AM EST Office Visit [facility] [address] [facility] [address] [place] [address] Kyrie Carney DPM [address] [address] Pain due to onychomycosis of toenails of both feet (Primary Dx); Plantar fasciitis; Contracture of right ankle [facility] Comment on above: Pain due to onychomycosis of toenails of both feet (Primary Dx); Plantar fasciitis; Contracture of right ankle Start: 03-22-2024 End: 03-22-2024 Patient encounter procedure 03/22/2024 2:10 PM EST Office Visit [facility] [address] [facility] [address] [place] [address] Kyrie Carney DPM [address] [address] [facility] Start: 02-27-2024 End: 02-27-2024 Patient encounter procedure [facility] Comment on above: Arrived Start: 02-17-2024 End: 02-17-2024 Patient encounter procedure 02/17/2024 8:45 AM EDT Office Visit [facility] [address] [facility] [address] [place] [address] Mason Membreno MD [address] [place] [address] [place] [address] [facility] Start: 02-07-2024 End: 02-07-2024 Patient encounter procedure [facility]per Comment on above: Arrived Start: 02-06-2024 End: 02-06-2024 Patient encounter procedure [facility] Comment on above: Arrived Start: 02-02-2024 End: 02-02-2024 Patient encounter procedure 02/02/2024 2:30 PM EDT Office Visit [facility] [address] [place] [address] [place] [address] Sophia Zaldivar NP [address] [place] [address] [place] [address] Arrived [facility] Comment on above: Arrived Start: 01-12-2024 End: 01-12-2024 Patient encounter procedure [facility] Comment on above: Plantar fasciitis (Primary Dx); Contracture of right ankle; Diabetes mellitus due to underlying condition with diabetic polyneuropathy, with long-term current use of insulin ([facility]); Onychomycosis; Toe pain, bilateral Start: 01-11-2024 End: 01-11-2024 Patient encounter procedure 01/11/2024 3:00 PM EDT Appointment [facility] [address] [place], [place] [id number] ZL/ MRI CARDIAC MORPHOLOGY AND FUNCTION W/WO IV CONTRAST [facility] Comment on above: ZL/ MRI CARDIAC MORPHOLOGY AND FUNCTION W/WO IV CONTRAST Start: 01-08-2024 Covid-19 Vaccine ( season) Covid-19 Vaccine ( season) [facility] Start: 01-08-2024 Influenza vaccination Influenza Vaccine (#1) [facility] Start: 01-05-2024 End: 01-05-2024 Patient encounter procedure 01/05/2024 3:15 PM EDT Office Visit [facility] [address] [facility] [address] [place] [address] Mason Membreno MD [address] [facility] [address] [place] [address] Arrived [facility] Comment on above: Arrived Start: 12-26-2023 End: 12-26-2023 Patient encounter procedure 12/26/2023 3:30 PM EDT Office Visit [facility] [address] [place] [address] [place] [address] Mason Membreno MD [address] [facility] [address] [place] [address] Arrived [facility] Comment on above: Arrived Start: 12-16-2023 Hemoglobin A1c measurement Diabetes: [facility] A1C [facility] Start: 11-25-2023 Medicare Annual Wellness (AWV) Medicare Annual Wellness (AWV) [facility] Start: 05-09-2023 Advance Directive Discussion Advance Directive Discussion [facility] Start: 02-28-2023 [facility] Start: 02-25-2023 Sleep disorder assessment [facility] Start: 02-24-2023 Hospital admission [facility] Start: 02-24-2023 Referral to importer exporter [facility] Start: 02-24-2023 [facility] Start: 02-18-2023 [facility] Start: 01-07-2023 Covid-19 Vaccine ( season) Covid-19 Vaccine ( season) [facility] Start: 10-18-2022 ambulatory Ambulatory Facility: Start: 09-27-2022 Diabetes Screening Diabetes Screening [facility] Start: 07-09-2019 Pneumococcal Vaccine: 65+ Years (3 of 3 - PPSV23 or PCV20) Pneumococcal Vaccine: 65+ Years (3 of 3 - PPSV23 or PCV20) [facility] Start: 01-07-2019 Influenza vaccination Flu vaccine (#1) [place] Start: 2017 Pneumococcal 65+ years Vaccine (1 of 2 - PCV13) Pneumococcal 65+ years Vaccine (1 of 2 - PCV13) [place] Start: 2017 Pneumococcal Vaccine: 65+ (1 of 1 - PCV) Pneumococcal Vaccine: 65+ (1 of 1 - PCV) [facility] Start: 2012 RSV Vaccine (1 - 1-dose 60+ series) RSV Vaccine (1 - 1-dose 60+ series) [facility] Start: 2002 Shingrix Vaccine (1 of 2) Shingrix Vaccine (1 of 2) [facility] Start: 1997 Screening for malignant neoplasm of colon [facility] Start: 11-05-1987 Lipid panel Lipid Screening [facility] Start: 11-05-1971 Urine microalbumin profile DTaP,Tdap,Td Vaccine (1 - Tdap) [facility] Start: 1970 Anxiety Screening Anxiety Screening [facility] Start: 1970 Depression Screening Depression Screening [facility] Start: 1970 Hepatitis C screening Hepatitis C Screening [facility] Start: 1952 Screening for malignant neoplasm of colon [facility] Patient Education Gastrointestin al Bleeding [facility] Work Phone: Patient referral [facility] Work Phone: Prostate specific Ag [Mass/volume] in Serum or Plasma PSA Lab Routine Prostate cancer screening Ordered: 07/02/2024 [facility] Comment on above: Ordered: 07/02/2024 Immunizations Immunization Date Immunization Notes Care Provider Fa [facility] 03-05-2024 ABRYSVO - Respirator y syncytial virus (RSV), vaccine, bivalent, protein subunit RSV prefusion F, diluent reconstituted, 0.5 mL, PF Mason Membreno MD Work Phone: [facility] 02-27-2024 Influenza, High-dose Seasonal, Quadrivalent, Preservative Free Mason Membreno MD Work Phone: [facility] 06-23-2023 SARS-COV-2 (COVID-19 ) vaccine, mRNA, spike protein, LNP, PF, bindu-sucrose, 30 mcg/0.3 mL Mason Membreno MD Work Phone: [facility] 04-04-2023 Influenza, High-dose Seasonal, Quadrivalent, Preservative Free Mason Membreno MD Work Phone: [facility] 04-04-2023 influenza virus vacc ine, unspecified formulation Mason Membreno MD Work Phone: [facility] 03-27-2022 SARS-CoV-2 (COVID-19 ) [id number] Francisca Pierre [facility] 03-22-2022 influenza virus vacc ine, unspecified formulation Francisca Pierre [facility] 03-22-2022 influenza, high dose seasonal, preservative-free Mason Membreno MD Work Phone: [facility] 08-25-2021 SARS-CoV-2 (COVID-19 ) mRNA-1273 vaccine Francisca Lue [facility] 03-13-2021 [facility] SARS-CoV-2 Vaccination Mason Membreno MD Work Phone: [facility] 02-09-2021 influenza, high dose seasonal, preservative-free Mason Membreno MD Work Phone: [facility] 02-06-2021 influenza virus vacc ine, unspecified formulation Francisca Lue [facility] 07-18-2020 SARS-CoV-2 (COVID-19 ) mRNA-1273 vaccine Francisca Lue [facility] 06-25-2020 SARS-CoV-2 (COVID-19 ) mRNA-1273 vaccine Francisca Lue [facility] 02-25-2020 influenza virus vacc ine, unspecified formulation Francisca Lue [facility] 02-25-2020 influenza, seasonal, injectable Mason Membreno MD Work Phone: [facility] 02-12-2020 influenza virus vacc ine, unspecified formulation Francisca Lue [facility] 02-12-2020 influenza, high dose seasonal, preservative-free Mason Membreno MD Work Phone: [facility] 03-12-2019 influenza virus vacc ine, unspecified formulation Francisca Lue [facility] 03-12-2019 influenza, high dose seasonal, preservative-free Mason Membreno MD Work Phone: [facility] 04-10-2018 zoster vaccine recombinant Francisca Pierre [facility] 02-08-2018 influenza virus vacc ine, unspecified formulation Francisca Pierre [facility] 02-08-2018 influenza, high dose seasonal, preservative-free Mason Membreno MD Work Phone: [facility] 02-24-2017 pneumococcal conjuga te vaccine, 13 valent Francisca Lujann [facility] 02-24-2017 tetanus toxoid, redu bob diphtheria toxoid, and acellular pertussis vaccine, adsorbed Francisca Lujann [facility] 02-23-2017 influenza virus vacc ine, unspecified formulation Francisca Lujann [facility] 02-23-2017 seasonal influenza, intradermal, preservative free Mason Membreno MD Work Phone: [facility] 12-23-2014 influenza virus vacc ine, unspecified formulation Francisca Pierre [facility] 12-23-2014 influenza, injectabl e, quadrivalent, preservative free Mason Membreno MD Work Phone: [facility] 07-08-2014 pneumococcal polysaccharide vaccine, 23 valent Mason Membreno MD Work Phone: [facility] 03-11-2014 influenza virus vacc ine, split virus (incl. purified surface antigen) Mason Membreno MD Work Phone: [facility] Payers Date Payer Category Payer Self-pay [id number] 2022 Private Health Insurance [id number] 2018 Medicare MEDICARE MEDICAR E PART A AND B xxxxxxxxxxx 2018-Present [phone] [address] [address] [place] [address] xxxxxxxxxxx [id number] 2018 Private Health Insurance [id number] 2018 Private Health Insurance AETNA AETNA NAP CHOICE POS II xxxxxxxxxx 2018-Present [phone] [address] [place] [address] xxxxxxxxxx [id number] 2017 Medicare [id number] 1959 Medicare [id number] 1959 Private Health Insurance [id number] 1959 Self-pay [id number] 1952 Unknown [id number] 2.16.840.1.141811.3.579. 2.1068 1952 Unknown [id number] 2.16.840.1.322519.3.579. 2.1068 1952 Unknown [id number] 2.16.840.1.664217.3.579. 2.173 1952 Unknown [id number] 2.16.840.1.642851.3.579. 2.647 1952 Unknown [id number] 2.16.840.1.872103.3.579. 2.647 1952 Unknown [id number] 2.16.840.1.400863.3.579. 2.593 1952 Unknown [id number] 2.16.840.1.187837.3.579. 2.593 1952 Unknown [id number] 2.16.840.1.689239.3.579. 2.593 1952 Unknown [id number] 2.16.840.1.033278.3.579. 2.593 1952 Unknown [id number] 2.16.840.1.153879.3.579. 2.593 1952 Unknown [id number] 2.16.840.1.834749.3.579. 2.593 1952 Unknown [id number] 2.16.840.1.829150.3.579. 2.593 1952 Unknown [id number] 2.16.840.1.208417.3.579. 2.593 1952 Unknown [id number] 2.16.840.1.607077.3.579. 2.593 1952 Unknown [id number] 2.16.840.1.747745.3.579. 2.593 1952 Unknown [id number] 2.16.840.1.375270.3.579. 2.593 1952 Unknown [id number] 2.16.840.1.040301.3.579. 2.593 1952 Unknown [id number] 2.16.840.1.923597.3.579. 2.593 1952 Unknown [id number] 2.16.840.1.484159.3.579. 2.356 1952 Unknown [id number] 2.16.840.1.358028.3.579. 2.727 1952 Unknown [id number] 2.16.840.1.425321.3.579. 2.727 1952 Unknown [id number] 2.16.840.1.472378.3.579. 2.1286 1952 Unknown [id number] 2.16.840.1.800125.3.579. 2.1258 1952 Unknown [id number] 2.16.840.1.295846.3.579. 2.1258 1952 Unknown [id number] 2.16.840.1.995860.3.579. 2.1258 1952 Unknown [id number] 2.16.840.1.488067.3.579. 2.1258 1952 Unknown [id number] 2.16.840.1.776500.3.579. 2.1258 1952 Unknown [id number] 2.16.840.1.894782.3.579. 2.1258 1952 Unknown [id number] 2.16.840.1.541289.3.579. 2.1258 1952 Unknown [id number] 2.16.840.1.673527.3.579. 2.1258 1952 Unknown [id number] 2.16.840.1.132246.3.579. 2.1258 1952 Unknown [id number] 2.16.840.1.620611.3.579. 2.1258 1952 Unknown [id number] 2.16.840.1.072931.3.579. 2.1258 1952 Unknown [id number] 2.16.840.1.994013.3.579. 2.1258 1952 Unknown [id number] 2.16.840.1.098103.3.579. 2.1258 1952 Unknown [id number] 2.16.840.1.566525.3.579. 2.1258 1952 Unknown [id number] 2.16.840.1.857632.3.579. 2.1258 1952 Unknown [id number] 2.16.840.1.824451.3.579. 2.1259 1952 Unknown [id number] 2.16.840.1.841371.3.579. 2.1259 Unknown [facility] [id number] Unknown [id number] 2.16.840.1.878016.3.579. 2.531 Unknown [id number] 2.16.840.1.865318.3.579. 2.531 Social History Date Type Detail Facility Start: 12-30-2018 Tobacco smoking stat us [facility] Current every day smoker [place] Start: 12-30-2018 End: 02-27-2024 Alcohol intake Not Currently [place] Start: 1950 Sex Assigned At Not on file [place] Start: 08-18-2021 End: 10-06-2022 Tobacco smoking status Never smoked tobacco (finding) [facility] Tobacco smoking status Never [facility] Start: 1950 Sex Assigned At Male F [facility] Start: 02-21-2013 Alcoholic beverage intake Current non-drinker of alcohol (finding) [facility] Start: 04-16-2020 End: 02-27-2024 History of Social function [facility] Start: 10-06-2022 Tobacco use and exposure Smokeless tobacco non-user [facility] Start: 02-06-2024 End: 07-12-2024 Alcoholic beverage intake Lifetime non-drinker (finding) [facility] How often to you hav e a drink containing alcohol? Never [facility] Start: 03-24-2023 Alcohol Comment caffeine yes t ype : soda [facility] Medical Equipment Procedure Code Equipment Code Equipment Original Text Equi pment Identifier Dates One Touch Lancets Goals Date Patient Goal Desired Activity /State Functional Status Date Assessment Result Facility 02-28-2023 Functional status Patient at Baseline [facility] Work Phone: 10-27-2022 Functional Status N/A [facility] Mental Status Date Assessment Result Facility 02-28-2023 Cognitive function Cognitive Sta tus Patient at Baseline [facility] Work Phone: Clinical Notes 08-18-2021 to 07-12-2024 Kyrie Carney DPM - 07/12/2024 10:50 AM Eamon Membreno MD - 07/02/2024 9:00 AM Gage Carney DPM - 04/19/2024 10:20 AM Eamon Membreno MD - 02/27/2024 11:15 AM EDT Note Date & Type Note Facility 07-12-2024 History of Presen t illness Narrative Patient: Maury Issa : 1950 PCP: Mason Membreno MD SUBJECTIVE Patient presents today with a CC of elongated, thick nails. Pt states nails have been elongated and thick for many years and cause pain with ambulation in shoegear. Pt has tried previous treatment with minimal relief. Pt presents today for nail care and treatment. Pt is DM2. Pt has hx of right foot plantar fascitis with steroid injections in the past . Allergies: Allergies Allergen Reactions Aspartame Diarrhea Isosorbide Nitrate Other Profound hypotension after single 30 mg dose. Past Medical History: Past Medical History: Diagnosis Date Acute sinusitis Aortic valve regurgitation 2015 mild Arthritis BPH (benign prostatic hyperplasia) 2011 AND PROSTATITIS OBSTRUCTION Bradycardia 11/20/2021 Depression (CMS/HCC) Deviated nasal septum Diabetes mellitus (CMS/HCC) Edema GERD (gastroesophageal reflux disease) Hx of echocardiogram 03/09/2016 ECHO EF 60-65% Hypertension (CMS/HCC) Hypotension due to medication LVH (left ventricular hypertrophy) 2016 Mild dilation of ascending aorta (CMS/HCC) Nasal obstruction Non-STEMI (non-ST elevated myocardial infarction) (CMS/HCC) 02/2017 ABEL on CPAP 2009 Pain management Renal artery stenosis (CMS/HCC) 03/2016 right Testicular pain 02/15/2022 Medications: Current Outpatient Medications: albuterol (2.5 MG/3ML) 0.083% nebulizer solution, Take 3 mL (2.5 mg) by nebulization every 4 (four) hours if needed for wheezing., Disp: 75 mL, Rfl: 3 apixaban (Eliquis) 5 MG tablet, 5 mg every 12 (twelve) hours., Disp: , Rfl: Ascorbic Acid (Vitamin C) 500 MG capsule, Take 1 tablet by mouth 1 (one) time each day., Disp: , Rfl: atorvastatin (Lipitor) 40 MG tablet, Take 1 tablet (40 mg) by mouth in the morning., Disp: 90 tablet, Rfl: 3 citalopram (CeleXA) 20 MG tablet, Take 1 tablet (20 mg) by mouth in the morning., Disp: 90 tablet, Rfl: 3 empagliflozin (Jardiance) 25 MG, Take 1 tablet (25 mg) by mouth 1 (one) time each day at the same time. (Patient taking differently: Take 0.5 tablets by mouth 1 (one) time each day at the same time), Disp: 90 tablet, Rfl: 3 ergocalciferol (Vitamin D-2) 1.25 MG (82528 UT) capsule, Take 1 capsule by mouth 1 (one) time per week., Disp: , Rfl: finasteride (Proscar) 5 MG tablet, Take 5 mg by mouth in the morning. Do not crush, chew, or split. ., Disp: , Rfl: gabapentin (Neurontin) 400 MG capsule, 1 cap every evening and 1 cap at bedtime, Disp: 60 capsule, Rfl: 11 insulin glargine (Lantus SoloStar) 100 UNIT/ML pen, Inject 15 Units under the skin in the morning., Disp: , Rfl: lisinopril 10 MG tablet, Take 10 mg by mouth Daily, Disp: , Rfl: metoprolol succinate XL (Toprol-XL) 50 MG 24 hr tablet, Take 1 tablet (50 mg) by mouth in the morning and 1 tablet (50 mg) before bedtime. Do not crush or chew.., Disp: , Rfl: nitroglycerin (Nitrostat) 0.4 MG SL tablet, Place 0.4 mg under the tongue every 5 (five) minutes if needed for chest pain., Disp: , Rfl: oxyCODONE-acetaminophen (Percocet) 5-325 MG tablet, Take 1 tablet by mouth every 8 (eight) hours if needed, Disp: , Rfl: pantoprazole (Protonix) 40 MG EC tablet, Take 1 tablet (40 mg) by mouth in the morning and at noon. Do not crush, chew, or split., Disp: 180 tablet, Rfl: 3 prednisoLONE acetate (Pred-Forte) 1 % ophthalmic suspension, Administer 1 drop into the right eye in the morning and 1 drop at noon and 1 drop in the evening and 1 drop before bedtime., Disp: , Rfl: ranolazine (Ranexa) 500 MG 12 hr tablet, Take 500 mg by mouth in the morning and 500 mg before bedtime., Disp: , Rfl: semaglutide (Ozempic, 0.25 or 0.5 MG/DOSE,) 2 MG/1.5ML solution pen-injector, Inject under the skin 1 (one) time per week., Disp: , Rfl: spironolactone (Aldactone) 25 MG tablet, Take 12.5 mg by mouth Daily, Disp: , Rfl: tamsulosin (Flomax) 0.4 MG 24 hr capsule, Take 0.4 mg by mouth 1 (one) time each day at the same time., Disp: , Rfl: Social History: Social History Socioeconomic History Marital status: Unmarried Spouse name: Not on file Number of children: Not on file Years of education: Not on file Highest education level: Not on file Occupational History Not on file Tobacco Use Smoking status: Never Smokeless tobacco: Never Vaping Use Vaping status: Never Used Substance and Sexual Activity Alcohol use: Never Comment: caffeine yes type : soda Drug use: Never Sexual activity: Defer Partners: Decline to Answer Other Topics Concern Not on file Social History Narrative Not on file Social Drivers of Health Financial Resource Strain: Not on file Food Insecurity: Not on file Transportation Needs: Not on file Physical Activity: Not on file Stress: Not on file Social Connections: Not on file Intimate Partner Violence: Unknown (06/30/2023) [facility] [place] Safety & Environment Fear of Current or Ex-Partner: Not on file Emotionally Abused: Not on file Physically Abused: Not on file Sexually Abused: Not on file Physically or Sexually Abused: Not on file Housing Stability: Not on file ROS: General: denies fever, chills, fatigue, malaise GI: denies abdominal pain, loose stool or cramping. OBJECTIVE LE EXAM: DERM: Elongated thick yellow crumbly nails digits 1 through 10. Negative hair growth with thin shiny atrophic skin bilaterally VASC: positive DP and negative PT pedal pulses NEURO: 5.07 [place] monofilament test intact to digits and forefoot bilaterally 125Hz tuning fork diminished to 1st MPJ bilaterally ORTHO: Positive pain on palpation to toenails of the left 1,2,3,4,5 toes and right 1,2,3,4,5 toes Negative pain on palpation right medial calcaneal tubercle ASSESSMENT 1. Diabetes mellitus due to underlying condition with diabetic polyneuropathy, with long-term current use of insulin (CMS/HCC) 2. Pain due to onychomycosis of toenails of both feet 3. Plantar fasciitis 4. Contracture of right ankle PLAN Debride nails in length and thickness digits 1 through 10 Kyrie Carney DPM documented in this encounter [facility] 07-11-[address] [facility] SUBJECTIVE Chief Complaint Patient presents with Coronary Artery Disease Hypertension Hyperlipidemia Atrial Fibrillation Maury Issa is a 73 y.o. male here for follow-up. HPI PMHx: CAD s/p TRINITY to LAD 10/2021, a.fib, HTN, DM type II, CKD III, ABEL on CPAP Patient here for 6 mo follow up CAD, PAF, and hypertension. Had labs last month. [facility]. Lisinopril has been increased to 40mg daily per nephrology he says, as well as spironolactone increased to 25mg daily. Patient denies chest pain, SOB, palpitations, and bleeding on Eliquis. He reports dizziness with position changes. He has been having headaches when he wakes up. BP has been well controlled. He also notes some sneezing. Patient Active Problem List Diagnosis Flank pain Abnormal MRI Acquired hallux valgus Acute sinusitis Aortic valve regurgitation Arthritis Atherosclerosis of renal artery BPH with urinary obstruction Spondylosis of cervical region without myelopathy or radiculopathy Constipation Coronary artery disease involving [place] coronary artery of [place] heart with angina pectoris Deformity of metatarsal Depressive disorder Deviated nasal septum Type 2 diabetes mellitus without complication (CMS/HCC) Diabetic mononeuropathy (CMS/HCC) Diabetic renal disease ([facility]) Diverticular disease of colon Dyspnea on exertion Dysuria Edema of both lower extremities Edema of lower extremity Benign essential tremor Morbid (severe) obesity with alveolar hypoventilation ([facility]) GERD (gastroesophageal reflux disease) Acute stress reaction Microhematuria Elevated PSA History of DVT (deep vein thrombosis) Heart disease LVH (left ventricular hypertrophy) due to hypertensive disease, without heart failure Type 2 diabetes mellitus with hyperglycemia ([facility]) Incomplete bladder emptying Frequent urination Head injury Leukocytosis half-way current use of insulin ([facility]) Major depressive disorder, single episode, unspecified Migraine Mild intermittent asthma Mixed hyperlipidemia Nasal obstruction Nocturia Reactive airway disease Paroxysmal atrial fibrillation ([facility]) Polyneuropathy Weak urinary stream Osteoarthritis of right knee RLS (restless legs syndrome) Cervical stenosis of spine Stage 3 chronic kidney disease ([facility]) Urge incontinence Urinary urgency Abnormal stress test Stable angina Obesity with body mass index 30 or greater Diverticulitis Lower urinary tract symptoms due to benign prostatic hyperplasia Anticoagulated Atypical small acinar proliferation of prostate Bilateral varicoceles Contracture, right ankle Diabetic nephropathy with proteinuria ([facility]) Disturbance in sleep behavior Diverticulosis of large intestine without hemorrhage Edema Glucosuria Headaches, cluster Indigestion LLQ pain Neuropathy due to type 2 diabetes mellitus ([facility]) Osteoarthritis of right foot Peripheral venous insufficiency Renal cyst Sacroiliitis Testicular pain B12 deficiency Diabetes mellitus ([facility]) Disorder of the skin and subcutaneous tissue, unspecified H/O: osteoarthritis Hyperopia Nuclear sclerotic cataract Obstructive sleep apnea syndrome Encounter for immunization Presbyopia Sensorineural hearing loss, bilateral Tinnitus Tremor Vitamin D deficiency Encounter for fitting and adjustment of hearing aid Exposure to potentially hazardous substance Idiopathic chronic pancreatitis ([facility]) Hypertensive urgency Melena NSTEMI (non-ST elevated myocardial infarction) ([facility]) Vitreous degeneration, left eye Primary localized osteoarthrosis of ankle and foot Diarrhea Flatulence Past Medical History: Diagnosis Date Acromioclavicular separation Atrial fibrillation ([facility]) Chronic kidney disease Coronary artery disease Diabetes mellitus ([facility]) GERD (gastroesophageal reflux disease) Heart disease 6- Hypertension Rotator cuff syndrome Sleep apnea Family History Problem Relation Name Age of Onset Heart attack Brother Social History Tobacco Use Smoking status: Never Smokeless tobacco: Never Substance Use Topics Alcohol use: Not Currently Comment: moderate Drug use: Never Allergies Allergen Reactions Imdur [Isosorbide Mononitrate] Other Profound hypotension after single 30 mg dose. Isosorbide Other Other reaction(s): High blood pressure Profound hypotension after single 30 mg dose. ROS Musculoskeletal: Positive for back pain. Gastrointestinal: Positive for heartburn. Neurological: Positive for light-headedness. All other systems reviewed and are negative. OBJECTIVE Visit Vitals BP 120/88 (BP Location: Left arm, Patient Position: Sitting) Pulse 75 Ht 1.727 m (5' 8 ) Wt 93 kg (205 lb) SpO2 95% BMI 31.17 kg/m??? Smoking Status Never BSA 2.11 m??? Medication (more content not included)... [facility] 07-11-2024 Note Patient here for 6 m o follow up CAD, PAF, and hypertension. Had labs last month. [facility]. Lisinopril has been increased to 40mg daily per nephrology he says, as well as spironolactone increased to 25mg daily. Patient denies chest pain, SOB, palpitations, and bleeding on Eliquis. Review of Systems Musculoskeletal: Positive for back pain. Gastrointestinal: Positive for heartburn. Neurological: Positive for light-headedness. All other systems reviewed and are negative. [facility] 07-02-2024 History of Presen t illness Narrative Images from the original note were not included. Subjective Patient ID: Maury Issa is a 73 y.o. male who presents for Diabetes and Hypertension. Diabetes Mellitus Patient presents for follow up of diabetes. Current symptoms include: none. Patient denies foot ulcerations, hypoglycemia , paresthesia of the feet, polydipsia, polyuria, visual disturbances, and vomiting. Evaluation to date has included: fasting blood sugar, fasting lipid panel, hemoglobin A1C, and microalbuminuria. Home sugars: BGs have been ranging between 90 and 130 Hypertension Patient is here for follow-up of elevated blood pressure. Blood pressure is not well controlled at home. Cardiac symptoms: none. Patient denies chest pain, claudication, exertional chest pressure/discomfort, fatigue, irregular heart beat, near-syncope, orthopnea, palpitations, paroxysmal nocturnal dyspnea, syncope, and tachypnea. Cardiovascular risk factors: advanced age (older than 55 for men, 65 for women), diabetes mellitus, hypertension, and male gender. --- decreased Metoprol to 50mg as directed brought recordings from home he has been getting better numbers [facility] advised pt to decrease lantus to 15 units 3 weeks ago today pt increased it back to 20 units Diabetes Hypoglycemia symptoms include headaches. Pertinent negatives for diabetes include no chest pain. Hypertension Associated symptoms include headaches. Pertinent negatives include no chest pain, palpitations or shortness of breath. Current Outpatient Medications on File Prior to Visit Medication Sig Dispense Refill apixaban (Eliquis) 5 MG tablet 5 mg every 12 (twelve) hours. Ascorbic Acid (Vitamin C) 500 MG capsule Take 1 tablet by mouth 1 (one) time each day. atorvastatin (Lipitor) 40 MG tablet Take 1 tablet (40 mg) by mouth in the morning. 90 tablet 3 citalopram (CeleXA) 20 MG tablet Take 1 tablet (20 mg) by mouth in the morning. 90 tablet 3 empagliflozin (Jardiance) 25 MG Take 1 tablet (25 mg) by mouth 1 (one) time each day at the same time. (Patient taking differently: Take 0.5 tablets by mouth 1 (one) time each day at the same time) 90 tablet 3 ergocalciferol (Vitamin D-2) 1.25 MG (38739 UT) capsule Take 1 capsule by mouth 1 (one) time per week. finasteride (Proscar) 5 MG tablet Take 5 mg by mouth in the morning. Do not crush, chew, or split. . gabapentin (Neurontin) 400 MG capsule 1 cap every evening and 1 cap at bedtime 60 capsule 11 insulin glargine (Lantus SoloStar) 100 UNIT/ML pen Inject 15 Units under the skin in the morning. lisinopril 10 MG tablet Take 10 mg by mouth Daily metoprolol succinate XL (Toprol-XL) 50 MG 24 hr tablet Take 1 tablet (50 mg) by mouth in the morning and 1 tablet (50 mg) before bedtime. Do not crush or chew.. nitroglycerin (Nitrostat) 0.[address] 0.4 mg under the tongue every 5 (five) minutes if needed for chest pain. oxyCODONE-acetaminophen (Percocet) 5-325 MG tablet Take 1 tablet by mouth every 8 (eight) hours if needed prednisoLONE acetate (Pred-Forte) 1 % ophthalmic suspension Administer 1 drop into the right eye in the morning and 1 drop at noon and 1 drop in the evening and 1 drop before bedtime. ranolazine (Ranexa) 500 MG 12 hr tablet Take 500 mg by mouth in the morning and 500 mg before bedtime. semaglutide (Ozempic, 0.25 or 0.5 MG/DOSE,) 2 MG/1.5ML solution pen-injector Inject under the skin 1 (one) time per week. spironolactone (Aldactone) 25 MG tablet Take 12.5 mg by mouth Daily tamsulosin (Flomax) 0.4 MG 24 hr capsule Take 0.4 mg by mouth 1 (one) time each day at the same time. albuterol (2.5 MG/3ML) 0.083% nebulizer solution Take 3 mL (2.5 mg) by nebulization every 4 (four) hours if needed for wheezing. 75 mL 3 pantoprazole (Protonix) 40 MG EC tablet Take 1 tablet (40 mg) by mouth in the morning and at noon. Do not crush, chew, or split. 180 tablet 3 No current facility-administered medications on file prior to visit. I have reviewed and reconciled the history and medication list with the patient today. Allergies Allergen Reactions Aspartame Diarrhea Isosorbide Nitrate Other Profound hypotension after single 30 mg dose. Social History Tobacco Use Smoking status: Never Smokeless tobacco: Never Vaping Use Vaping status: Never Used Substance Use Topics Alcohol use: Never Comment: caffeine yes type : soda Drug use: Never Family History Problem Relation Name Age of Onset Diabetes Mother Stroke Mother Diabetes Father Diabetes Sibling Hypertension Sibling Past Medical History: Diagnosis Date Acute sinusitis Aortic valve regurgitation 2016 mild Arthritis BPH (benign prostatic hyperplasia) 2011 AND PROSTATITIS OBSTRUCTION Bradycardia 11/20/2021 Depression (CMS/HCC) Deviated nasal septum Diabetes mellitus (CMS/HCC) Edema GERD (gastroesophageal reflux disease) Hx of echocardiogram 03/09/2016 ECHO EF 60-65% Hypertension (CMS/HCC) Hypotension due to medication LVH (left ventricular hypertrophy) 2015 Mild dilation of ascending aorta (CMS/HCC) Nasal obstruction Non-STEMI (non-ST elevated myocardial infarction) (CMS/HCC) 02/2017 ABEL on CPAP 2009 Pain management Renal artery stenosis (CMS/HCC) 03/2016 right Testicular pain 02/15/2022 Past Surgical History: Procedure Laterality Date ARTERIAL BYPASS SURGERY COLONOSCOPY 02/18/2023 EGD 2009 EGD 02/18/2023 OTHER SURGICAL HISTORY 2010 Procedure:cortisone injection;Disease:Arthritis PROSTATE BIOPSY 07/03/2019 SHOULDER SURGERY Right TOTAL KNEE ARTHROPLASTY Right 10/08/2019 Visit Vitals BP 130/82 Pulse 54 Ht 5' 8 Wt 206 lb SpO2 96% BMI 31.32 kg/m Smoking Status Never BSA 2.12 m Review of Systems Respiratory: Negative for shortness of breath. Cardiovascular: Negative for chest pain and palpitations. Neurological: Positive for headaches. Objective Physical Exam Constitutional: General: He is not in acute distress. Appearance: He is normal weight. He is not ill-appearing. HENT: Head: Normocephalic. Cardiovascular: Rate and Rhythm: Normal rate and regular rhythm. Heart sounds: Normal heart sounds. No murmur heard. Pulmonary: Effort: Pulmonary effort is normal. Breath sounds: Normal breath sounds. Musculoskeletal: General: No swelling. Right lower leg: No edema. Left lower leg: No edema. Neurological: Mental Status: He is alert. Psychiatric: Mood and Affect: Mood normal. Thought Content: Thought content normal. Judgment: Judgment normal. Assessment/Plan Diagnoses and all orders for this visit: Type 2 diabetes mellitus with diabetic chronic kidney disease (CMS/HCC) - FSBS log shows good control, most recent A1C is at or near goal. Continue current treatment plan as previously outlined without changes. Chronic kidney disease, stage 3b (HCC) (CMS/HCC) - The patient is seeing a medical van driver for this condition, treatment is deferred to that specialist. Correspondence from that specialist and any available testing were reviewed during today's visit. Paroxysmal atrial fibrillation (CMS/HCC) Other hypertrophic cardiomyopathy (CMS/HCC) Other chronic pancreatitis (CMS/HCC) Mixed hyperlipidemia (CMS/HCC) - Lipid panel; Future Prostate cancer screening - PSA Follow up in about 4 months (around 10/30/2024) for Routine F/U, Test/Lab Review, DM- A1C. documented in this encounter [facility] 04-19-2024 History of Presen t illness Narrative Patient: Maury Issa : 1950 PCP: Mason Membreno MD SUBJECTIVE Patient presents today with a CC of elongated, thick nails. Pt states nails have been elongated and thick for many years and cause pain with ambulation in shoegear. Pt has tried previous treatment with minimal relief. Pt presents today for nail care and treatment. Pt has hx of right foot plantar fascitis with steroid injections in the past . Patient denies pain Allergies: Allergies Allergen Reactions Aspartame Diarrhea Isosorbide Nitrate Other Profound hypotension after single 30 mg dose. Past Medical History: Past Medical History: Diagnosis Date Acute sinusitis Aortic valve regurgitation 2015 mild Arthritis BPH (benign prostatic hyperplasia) 2011 AND PROSTATITIS OBSTRUCTION Bradycardia 11/20/2021 Depression (CMS/HCC) Deviated nasal septum Diabetes mellitus (CMS/HCC) Edema GERD (gastroesophageal reflux disease) Hx of echocardiogram 03/09/2016 ECHO EF 60-65% Hypertension (CMS/HCC) Hypotension due to medication LVH (left ventricular hypertrophy) 2015 Mild dilation of ascending aorta ([facility]) Nasal obstruction Non-STEMI (non-ST elevated myocardial infarction) ([facility]) 02/2017 ABEL on CPAP 2009 Pain management Renal artery stenosis (CMS/HCC) 03/2016 right Testicular pain 02/15/2022 Medications: Current Outpatient Medications: albuterol (2.5 MG/3ML) 0.083% nebulizer solution, Take 3 mL (2.5 mg) by nebulization every 4 (four) hours if needed for wheezing., Disp: 75 mL, Rfl: 3 apixaban (Eliquis) 5 MG tablet, 5 mg every 12 (twelve) hours., Disp: , Rfl: Ascorbic Acid (Vitamin C) 500 MG capsule, Take 1 tablet by mouth 1 (one) time each day., Disp: , Rfl: atorvastatin (Lipitor) 40 MG tablet, Take 1 tablet (40 mg) by mouth in the morning., Disp: 90 tablet, Rfl: 3 citalopram (CeleXA) 20 MG tablet, Take 1 tablet (20 mg) by mouth in the morning., Disp: 90 tablet, Rfl: 3 empagliflozin (Jardiance) 25 MG, Take 1 tablet (25 mg) by mouth 1 (one) time each day at the same time. (Patient taking differently: Take 0.5 tablets by mouth 1 (one) time each day at the same time), Disp: 90 tablet, Rfl: 3 ergocalciferol (Vitamin D-2) 1.25 MG (67281 UT) capsule, Take 1 capsule by mouth 1 (one) time per week., Disp: , Rfl: finasteride (Proscar) 5 MG tablet, Take 5 mg by mouth in the morning. Do not crush, chew, or split. ., Disp: , Rfl: gabapentin (Neurontin) 400 MG capsule, 1 cap every evening and 1 cap at bedtime, Disp: 60 capsule, Rfl: 11 insulin glargine (Lantus SoloStar) 100 UNIT/ML pen, Inject 20 Units under the skin in the morning., Disp: , Rfl: lisinopril 10 MG tablet, Take 10 mg by mouth Daily, Disp: , Rfl: metoprolol succinate XL (Toprol-XL) 50 MG 24 hr tablet, Take 1 tablet (50 mg) by mouth in the morning and 1 tablet (50 mg) before bedtime. Do not crush or chew.., Disp: , Rfl: nitroglycerin (Nitrostat) 0.4 MG SL tablet, Place 0.4 mg under the tongue every 5 (five) minutes if needed for chest pain., Disp: , Rfl: pantoprazole (Protonix) 40 MG EC tablet, Take 1 tablet (40 mg) by mouth in the morning and at noon. Do not crush, chew, or split., Disp: 180 tablet, Rfl: 3 ranolazine (Ranexa) 500 MG 12 hr tablet, Take 500 mg by mouth in the morning and 500 mg before bedtime., Disp: , Rfl: semaglutide (Ozempic, 0.25 or 0.5 MG/DOSE,) 2 MG/1.5ML solution pen-injector, Inject under the skin 1 (one) time per week., Disp: , Rfl: spironolactone (Aldactone) 25 MG tablet, Take 12.5 mg by mouth Daily, Disp: , Rfl: tamsulosin (Flomax) 0.4 MG 24 hr capsule, Take 0.4 mg by mouth 1 (one) time each day at the same time., Disp: , Rfl: Social History: Social History Socioeconomic History Marital status: Unmarried Spouse name: Not on file Number of children: Not on file Years of education: Not on file Highest education level: Not on file Occupational History Not on file Tobacco Use Smoking status: Never Smokeless tobacco: Never Vaping Use Vaping status: Never Used Substance and Sexual Activity Alcohol use: Never Comment: caffeine yes type : soda Drug use: Never Sexual activity: Defer Partners: Decline to Answer Other Topics Concern Not on file Social History Narrative Not on file Social Drivers of Health Financial Resource Strain: Not on file Food Insecurity: Not on file Transportation Needs: Not on file Physical Activity: Not on file Stress: Not on file Social Connections: Not on file Intimate Partner Violence: Unknown (06/30/2023) Received from [facility] Safety & Environment Fear of Current or Ex-Partner: Not on file Emotionally Abused: Not on file Physically Abused: Not on file Sexually Abused: Not on file Physically or Sexually Abused: Not on file Housing Stability: Not on file ROS: General: denies fever, chills, fatigue, malaise GI: denies abdominal pain, loose stool or cramping. OBJECTIVE LE EXAM: DERM: Elongated thick yellow crumbly nails digits 1 through 10. Negative hair growth with thin shiny atrophic skin bilaterally VASC: positive DP and negative PT pedal pulses NEURO: 5.07 [place] monofilament test intact to digits and forefoot bilaterally 125Hz tuning fork diminished to 1st MPJ bilaterally ORTHO: Positive pain on palpation to nails 1 through 10 Negative pain on palpation right medial calcaneal tubercle ASSESSMENT 1. Pain due to onychomycosis of toenails of both feet 2. Plantar fasciitis 3. Contracture of right ankle PLAN Debride nails in length and thickness digits 1 through 10 Kyrie Carney DPM documented in this encounter [facility] 02-27-2024 History of Presen t illness Narrative Images from the original note were not included. Subjective : Chief Complaint: Maury Issa is an 73 y.o. male here for an annual wellness visit. I have reviewed and reconciled the history and medication list with the patient today. Current Outpatient Medications Medication Sig Dispense Refill apixaban (Eliquis) 5 MG tablet 5 mg every 12 (twelve) hours. Ascorbic Acid (Vitamin C) 500 MG capsule Take 1 tablet by mouth 1 (one) time each day. atorvastatin (Lipitor) 40 MG tablet Take 1 tablet (40 mg) by mouth in the morning. 90 tablet 3 citalopram (CeleXA) 20 MG tablet Take 1 tablet (20 mg) by mouth in the morning. 90 tablet 3 empagliflozin (Jardiance) 25 MG Take 1 tablet (25 mg) by mouth 1 (one) time each day at the same time. (Patient taking differently: Take 0.5 tablets by mouth 1 (one) time each day at the same time) 90 tablet 3 ergocalciferol (Vitamin D-2) 1.25 MG (36686 UT) capsule Take 1 capsule by mouth 1 (one) time per week. finasteride (Proscar) 5 MG tablet Take 5 mg by mouth in the morning. Do not crush, chew, or split. . gabapentin (Neurontin) 400 MG capsule 1 cap every evening and 1 cap at bedtime 60 capsule 11 insulin glargine (Lantus SoloStar) 100 UNIT/ML pen Inject 20 Units under the skin in the morning. lisinopril 10 MG tablet Take 10 mg by mouth Daily metoprolol succinate XL (Toprol-XL) 50 MG 24 hr tablet Take 1 tablet (50 mg) by mouth in the morning and 1 tablet (50 mg) before bedtime. Do not crush or chew.. nitroglycerin (Nitrostat) 0.[address] 0.4 mg under the tongue every 5 (five) minutes if needed for chest pain. pantoprazole (Protonix) 40 MG EC tablet Take 1 tablet (40 mg) by mouth in the morning and at noon. Do not crush, chew, or split. 180 tablet 3 ranolazine (Ranexa) 500 MG 12 hr tablet Take 500 mg by mouth in the morning and 500 mg before bedtime. semaglutide (Ozempic, 0.25 or 0.5 MG/DOSE,) 2 MG/1.5ML solution pen-injector Inject under the skin 1 (one) time per week. spironolactone (Aldactone) 25 MG tablet Take 12.5 mg by mouth Daily tamsulosin (Flomax) 0.4 MG 24 hr capsule Take 0.4 mg by mouth 1 (one) time each day at the same time. albuterol (2.5 MG/3ML) 0.083% nebulizer solution Take 3 mL (2.5 mg) by nebulization every 4 (four) hours if needed for wheezing. 75 mL 3 No current facility-administered medications for this visit. Review of Systems List of current healthcare providers: Patient Care Team: Mason Membreno MD as PCP - General (Internal Medicine) Mason Membreno MD as PCP - ACO [employer] Medicare Annual Visit Over the past 2 weeks, how often have you been bothered by any of the following problems? Little interest or pleasure in doing things: Not at all Feeling down, depressed, or hopeless: Not at all Patient Health Questionnaire-2 Score: 0 Rodarte Fall Risk History of Falling, Immediate or Within 3 Months: No Secondary Diagnosis: No Ambulatory Aid: Walks without aid/bedrest/nurse assist Health Risk Assessment Form Do you need help eating, bathing, using the toilet, dressing, or getting around your home?: No Can you prepare your own meals?: Yes Can you do your own housework without help?: Yes Can you shop for groceries or clothes without help?: Yes Do you exercise for about 20 minutes 3 or more days a week?: Yes How confident are you that you can control and manage most of your health problems?: Very confident Can you mange your money, credit cards and accounts, pay bills and taxes?: Yes Cognitive Screening Three Word Registration: Apple, Watch, Sandrita Clock Drawing: Normal Clock - 2 Three Word Recall: All 3 words correct - 3 Total Score (0-5 Points): 5 Pain Assessment Pain Score: 7 Advance Care Planning Do you have a living will?: No Do you have a medical power of county attorney?: No Objective : BP 122/72 Pulse 51 Ht 5' 8 Wt 196 lb SpO2 96% BMI 29.80 kg/m No results found. Physical Exam Constitutional: General: He is not in acute distress. Appearance: He is normal weight. He is not ill-appearing. HENT: Head: Normocephalic. Cardiovascular: Rate and Rhythm: Normal rate and regular rhythm. Heart sounds: Normal heart sounds. No murmur heard. Pulmonary: Effort: Pulmonary effort is normal. Breath sounds: Normal breath sounds. Musculoskeletal: General: No swelling. Right lower leg: No edema. Left lower leg: No edema. Neurological: Mental Status: He is alert. Psychiatric: Mood and Affect: Mood normal. Thought Content: Thought content normal. Judgment: Judgment normal. Office Visit on 02/27/2024 Component Date Value Ref Range Status Hemoglobin A1C 02/27/2024 5.6 Final Assessment/Plan : The following health maintenance schedule was reviewed with the patient and provided in printed form in the after visit summary: Health Maintenance Topic Date Due Pneumococcal Vaccine: 65+ Years (3 of 3 - PPSV23 or PCV20) 07/09/2019 Medicare Annual Wellness (AWV) 11/25/2023 Diabetes: Hemoglobin A1C 05/29/2024 Diabetes: Retinopathy Screening 01/06/2025 Diabetes: Urine Protein Screening 01/17/2025 Colorectal Cancer Screening 02/18/2033 Influenza Vaccine Completed Advance Care Planning Assessment/Plan Diagnoses and all orders for this visit: Routine general medical examination at health care facility ACP (advance care planning) Flu vaccine need - Influenza, high-dose seasonal, quadrivalent, PF (VJS010) (Fluzone High Dose [place] 0.7mL dose) Type 2 diabetes mellitus with stage 3b chronic kidney disease, with long-term current use of insulin (HCC) ([facility]/HCC) - POCT Glycated hemoglobin, total Follow up in about 4 months (around 06/29/2024) for Routine F/U. Orders Placed This Encounter Procedures Influenza, high-dose seasonal, quadrivalent, PF (IJB556) (Fluzone High Dose [place] 0.7mL dose) POCT Glycated hemoglobin, total Electronically signed by Mason Membreno MD on February 27, 2024 documented in this encounter [facility] 02-07-2024 History of Presen t illness Narrative Associated Problem(s): ABEL (obstructive sleep apnea) ([facility] Associated Problem(s): B12 deficiency (Continue B12 SL.) Associated Problem(s): Benign essential tremor (Continue current regimen.) Associated Problem(s): RLS (restless legs syndrome) Incr GBP to 400 bid (preeti/hs). Images from the original note were not included. Outpatient Progress Note Prev Appt: Visit date not found Chief Complaint Patient presents with Tremors Assessment and Plan - RLS (restless legs syndrome) Incr GBP to 400 bid (preeti/hs). Benign essential tremor (Continue current regimen.) B12 deficiency (Continue B12 SL.) ABEL (obstructive sleep apnea) ([facility] No orders of the defined types were placed in this encounter. Follow-Up - Follow up in about 1 year (around 02/06/2025). Lab Frequency Next Occurrence Ambulatory referral to Gastroenterology Once 10/06/2022 History of Present Illness, Associated Treatments and Results - Dx TREMOR Tx (metoprolol ER 50 bid --card) AEs Hx Minimal worsening since last year. FHx - brother. Handwriting messier and somewhat smaller. Gait unaffected. Onset Semeiology Tremor LUE (dominant), difficult to use tools. Handwriting messier. Imaging Testing Surgery Failed Dx PN / RLS / WNV / B12 / (DM) Tx GBP 300 bid (preeti/hs) ... B12 SL 2/week AEs diarrh but ? If GBP Hx RLS - reasonably but not fully controlled. PN - Noted on exam. Known DM. Onset Semeiology Imaging Testing Labs - A1c=5.6..6.1 ... +WNV IgG Surgery Failed Dx ABEL Tx (CPAP) AEs Hx ([facility] Failed Semeiology Circadian Noct oxim PSG ([facility]) - (Jimmy/Juhi, yordy) - AHI=76 (interp only). PAPT (Jimmy/Antionette) - AHI=0 @ 14 (no supine), =0 @ 15 (REM, no supine) =1.0 @ 16 (supine and REM) (Jimmy/Greenback) - AHI=0 @ 17-18 (no supine), first REM @ 13 (Jimmy/Juhi, split) - AHI=5.9 @ 14. MSLT MWT Imaging Testing Surgery Physical Exam - General appearance, mentation, extraocular movements, facial strength and movement, hearing, upper and lower extremity strength and tone, sensation to gross testing, coordination, and gait are normal or at baseline unless noted below. HEENT - ___, unchanged: ___, orig: ___ MS - ___, unchanged: ___, orig: ___ CNN - ___, unchanged: ___, orig: ___ Motor - ___, unchanged: ___, orig: ___ Sens - ___, unchanged: Vibr, temp loss distal LEs, orig: ___ Reflex - ___, unchanged: AJ 0B, orig: ___ Coord - ___, unchanged: Tremor L hand ... NO cogwheeling, NO rigidity, NO mask facies, NO festination, orig: ___ Gait - ___, unchanged: Tandem 2+, orig: ___ Vestib - ___, unchanged: ___, orig: ___ MSK - ___, unchanged: ___, orig: ___ Other - ___, unchanged: ___, orig: ___ Vital Signs - Visit Vitals BP (!) 133/96 Pulse 65 Ht 5' 9 Wt 190 lb BMI 28.06 kg/m Smoking Status Never BSA 2.05 m Review of Systems - . Const: Denies appetite change, fever, chills. Allergy: Denies medication reaction. Ocular: Denies visual acuity change. ENT: Denies hearing change. Endoc: Denies weight loss. Resp: Denies dyspnoea, wheezing. Cardiac: Denies angina, palpitations. GI: Denies nausea, vomiting. Haem: Denies bleeding. : Denies incontinence. MSK: Denies arthralgias, joint oedema. Derm: Denies rash, hair loss. Neuro: Denies ataxia, tremor. Also see HPI for elements of ROS documented therein and for details of positive findings, which shall supersede the foregoing. PMH, PSH, Allergies, FH, SH - Past Medical History: Diagnosis Date Acute sinusitis Aortic valve regurgitation 2015 mild Arthritis BPH (benign prostatic hyperplasia) 2011 AND PROSTATITIS OBSTRUCTION Bradycardia 11/20/2021 Depression ([facility]) Deviated nasal septum Diabetes mellitus ([facility]) Edema GERD (gastroesophageal reflux disease) Hx of echocardiogram 03/09/2016 ECHO EF 60-65% Hypertension ([facility]) Hypotension due to medication LVH (left ventricular hypertrophy) 2015 Mild dilation of ascending aorta ([facility]) Nasal obstruction Non-STEMI (non-ST elevated myocardial infarction) ([facility]) 02/2017 ABEL on CPAP 2009 Pain management Renal artery stenosis ([facility]) 03/2016 right Testicular pain 02/15/2022 Past Surgical History: Procedure Laterality Date ARTERIAL BYPASS SURGERY COLONOSCOPY 02/18/2023 EGD 2008 EGD 02/18/2023 OTHER SURGICAL HISTORY 2010 Procedure:cortisone injection;Disease:Arthritis PROSTATE BIOPSY 07/03/2019 SHOULDER SURGERY Right TOTAL KNEE ARTHROPLASTY Right 10/08/2019 Allergies Allergen Reactions Aspartame Diarrhea Isosorbide Nitrate Other Profound hypotension after single 30 mg dose. Family History Problem Relation Name Age of Onset Diabetes Mother Stroke Mother Diabetes Father Diabetes Sibling Hypertension Sibling Outpatient Encounter Medications as of 02/07/2024 Medication Sig Dispense Refill albuterol (2.5 MG/3ML) 0.083% nebulizer solution Take 3 mL (2.5 mg) by nebulization every 4 (four) hours if needed for wheezing. 75 mL 3 apixaban (Eliquis) 5 MG tablet 5 mg every 12 (twelve) hours. Ascorbic Acid (Vitamin C) 500 MG capsule Take 1 tablet by mouth 1 (one) time each day. atorvastatin (Lipitor) 40 MG tablet Take 1 tablet (40 mg) by mouth in the morning. 90 tablet 3 cefdinir (Omnicef) 300 MG capsule Take 1 capsule (300 mg) by mouth in the morning and 1 capsule (300 mg) before bedtime. Do all this for 10 days. 20 capsule 0 citalopram (CeleXA) 20 MG tablet Take 1 tablet (20 mg) by mouth in the morning. 90 tablet 3 Dextromethorphan-Pyrilamine ([place] DM) 7.5-7.5 MG/5ML liquid Take 10 mL by mouth 4 (four) times a day as needed (cough and congestion) for up to 10 days 473 mL 0 empagliflozin (Jardiance) 25 MG Take 1 tablet (25 mg) by mouth 1 (one) time each day at the same time. (Patient taking differently: Take 0.5 tablets by mouth 1 (one) time each day at the same time) 90 tablet 3 ergocalciferol (Vitamin D-2) 1.25 MG (36398 UT) capsule Take 1 capsule by mouth 1 (one) time per week. finasteride (Proscar) 5 MG tablet Take 5 mg by mouth in the morning. Do not crush, chew, or split. . gabapentin (Neurontin) 300 MG capsule 1 cap every evening and 1 cap at bedtime 60 capsule 5 insulin glargine (Lantus SoloStar) 100 UNIT/ML pen Inject 20 Units under the skin in the morning. metoprolol succinate XL (Toprol-XL) 50 MG 24 hr tablet Take 1 tablet (50 mg) by mouth in the morning and 1 tablet (50 mg) before bedtime. Do not crush or chew.. nitroglycerin (Nitrostat) 0.[address] 0.4 mg under the tongue every 5 (five) minutes if needed for chest pain. pantoprazole (Protonix) 40 MG EC tablet Take 1 tablet (40 mg) by mouth in the morning and at noon. Do not crush, chew, or split. 180 tablet 3 ranolazine (Ranexa) 500 MG 12 hr tablet Take 500 mg by mouth in the morning and 500 mg before bedtime. semaglutide (Ozempic, 0.25 or 0.5 MG/DOSE,) 2 MG/1.5ML solution pen-injector Inject under the skin 1 (one) time per week. spironolactone (Aldactone) 25 MG tablet Take 12.5 mg by mouth Daily tamsulosin (Flomax) 0.4 MG 24 hr capsule Take 0.4 mg by mouth 1 (one) time each day at the same time. [DISCONTINUED] Bacillus Coagulans-Inulin (Probiotic) 1-250 BILLION-MG capsule TAKE 1 CAPSULE BY MOUTH TWICE DAILY (IN THE MORNING and BEFORE bedtime) 60 capsule 1 [DISCONTINUED] metoprolol succinate XL (Toprol-XL) 50 MG 24 hr tablet Take 1 tablet (50 mg) by mouth Daily Do not crush or chew. 30 tablet 11 No facility-administered encounter medications on file as of 02/07/2024. Sher White M.D. documented in this encounter [facility] 02-06-2024 History of Presen t illness Narrative Images from the original note were not included. Subjective Patient ID: Maury Issa is a 73 y.o. male who presents for Hypotension. Diabetes Mellitus Patient presents for follow up of diabetes. Current symptoms include: none. Patient denies foot ulcerations, hypoglycemia , paresthesia of the feet, polydipsia, polyuria, visual disturbances, and vomiting. Evaluation to date has included: fasting blood sugar, fasting lipid panel, hemoglobin A1C, and microalbuminuria. Home sugars: BGs have been ranging between 90 and 130 Hypertension Patient is here for follow-up of elevated blood pressure. Blood pressure is not well controlled at home. Cardiac symptoms: none. Patient denies chest pain, claudication, exertional chest pressure/discomfort, fatigue, irregular heart beat, near-syncope, orthopnea, palpitations, paroxysmal nocturnal dyspnea, syncope, and tachypnea. Cardiovascular risk factors: advanced age (older than 55 for men, 65 for women), diabetes mellitus, hypertension, and male gender. --- decreased Metoprol to 50mg as directed brought recordings from home he has been getting better numbers Diabetes Hypoglycemia symptoms include headaches. Pertinent negatives for diabetes include no chest pain. Hypertension Associated symptoms include headaches. Pertinent negatives include no chest pain, palpitations or shortness of breath. Current Outpatient Medications on File Prior to Visit Medication Sig Dispense Refill albuterol (2.5 MG/3ML) 0.083% nebulizer solution Take 3 mL (2.5 mg) by nebulization every 4 (four) hours if needed for wheezing. 75 mL 3 apixaban (Eliquis) 5 MG tablet 5 mg every 12 (twelve) hours. Ascorbic Acid (Vitamin C) 500 MG capsule Take 1 tablet by mouth 1 (one) time each day. atorvastatin (Lipitor) 40 MG tablet Take 1 tablet (40 mg) by mouth in the morning. 90 tablet 3 Bacillus Coagulans-Inulin (Probiotic) 1-250 BILLION-MG capsule TAKE 1 CAPSULE BY MOUTH TWICE DAILY (IN THE MORNING and BEFORE bedtime) 60 capsule 1 cefdinir (Omnicef) 300 MG capsule Take 1 capsule (300 mg) by mouth in the morning and 1 capsule (300 mg) before bedtime. Do all this for 10 days. 20 capsule 0 citalopram (CeleXA) 20 MG tablet Take 1 tablet (20 mg) by mouth in the morning. 90 tablet 3 Dextromethorphan-Pyrilamine ([place] DM) 7.5-7.5 MG/5ML liquid Take 10 mL by mouth 4 (four) times a day as needed (cough and congestion) for up to 10 days 473 mL 0 empagliflozin (Jardiance) 25 MG Take 1 tablet (25 mg) by mouth 1 (one) time each day at the same time. (Patient taking differently: Take 0.5 tablets by mouth 1 (one) time each day at the same time) 90 tablet 3 ergocalciferol (Vitamin D-2) 1.25 MG (19974 UT) capsule Take 1 capsule by mouth 1 (one) time per week. finasteride (Proscar) 5 MG tablet Take 5 mg by mouth in the morning. Do not crush, chew, or split. . gabapentin (Neurontin) 300 MG capsule 1 cap every evening and 1 cap at bedtime 60 capsule 5 insulin glargine (Lantus SoloStar) 100 UNIT/ML pen Inject 20 Units under the skin in the morning. nitroglycerin (Nitrostat) 0.[address] 0.4 mg under the tongue every 5 (five) minutes if needed for chest pain. pantoprazole (Protonix) 40 MG EC tablet Take 1 tablet (40 mg) by mouth in the morning and at noon. Do not crush, chew, or split. 180 tablet 3 ranolazine (Ranexa) 500 MG 12 hr tablet Take 500 mg by mouth in the morning and 500 mg before bedtime. semaglutide (Ozempic, 0.25 or 0.5 MG/DOSE,) 2 MG/1.5ML solution pen-injector Inject under the skin 1 (one) time per week. spironolactone (Aldactone) 25 MG tablet Take 12.5 mg by mouth Daily tamsulosin (Flomax) 0.4 MG 24 hr capsule Take 0.4 mg by mouth 1 (one) time each day at the same time. [DISCONTINUED] metoprolol succinate XL (Toprol-XL) 50 MG 24 hr tablet Take 1 tablet (50 mg) by mouth Daily Do not crush or chew. 30 tablet 11 No current facility-administered medications on file prior to visit. I have reviewed and reconciled the history and medication list with the patient today. Allergies Allergen Reactions Aspartame Diarrhea Isosorbide Nitrate Other Profound hypotension after single 30 mg dose. Social History Tobacco Use Smoking status: Never Smokeless tobacco: Never Vaping Use Vaping status: Never Used Substance Use Topics Alcohol use: Never Comment: caffeine yes type : soda Drug use: Never Family History Problem Relation Name Age of Onset Diabetes Mother Stroke Mother Diabetes Father Diabetes Sibling Hypertension Sibling Past Medical History: Diagnosis Date Acute sinusitis Aortic valve regurgitation 2015 mild Arthritis BPH (benign prostatic hyperplasia) 2011 AND PROSTATITIS OBSTRUCTION Bradycardia 11/20/2021 Depression (CMS/HCC) Deviated nasal septum Diabetes mellitus (CMS/HCC) Edema GERD (gastroesophageal reflux disease) Hx of echocardiogram 03/09/2016 ECHO EF 60-65% Hypertension (CMS/HCC) Hypotension due to medication LVH (left ventricular hypertrophy) 2015 Mild dilation of ascending aorta (CMS/HCC) Nasal obstruction Non-STEMI (non-ST elevated myocardial infarction) (CMS/HCC) 02/2017 ABEL on CPAP 2009 Pain management Renal artery stenosis (CMS/HCC) 03/2016 right Testicular pain 02/15/2022 Past Surgical History: Procedure Laterality Date ARTERIAL BYPASS SURGERY COLONOSCOPY 02/18/2023 EGD 2008 EGD 02/18/2023 OTHER SURGICAL HISTORY 2010 Procedure:cortisone injection;Disease:Arthritis PROSTATE BIOPSY 07/03/2019 SHOULDER SURGERY Right TOTAL KNEE ARTHROPLASTY Right 10/08/2019 Visit Vitals BP 126/64 Pulse 62 Ht 5' 8 Wt 193 lb SpO2 96% BMI 29.35 kg/m Smoking Status Never BSA 2.05 m Review of Systems Respiratory: Negative for shortness of breath. Cardiovascular: Negative for chest pain and palpitations. Neurological: Positive for headaches. Objective Physical Exam Constitutional: General: He is not in acute distress. Appearance: He is normal weight. He is not ill-appearing. HENT: Head: Normocephalic. Cardiovascular: Rate and Rhythm: Normal rate and regular rhythm. Heart sounds: Normal heart sounds. No murmur heard. Pulmonary: Effort: Pulmonary effort is normal. Breath sounds: Normal breath sounds. Musculoskeletal: General: No swelling. Right lower leg: No edema. Left lower leg: No edema. Neurological: Mental Status: He is alert. Psychiatric: Mood and Affect: Mood normal. Thought Content: Thought content normal. Judgment: Judgment normal. Assessment/Plan Diagnoses and all orders for this visit: Primary hypertension (CMS/HCC) - metoprolol succinate XL (Toprol-XL) 50 MG 24 hr tablet; Take 1 tablet (50 mg) by mouth in the morning and 1 tablet (50 mg) before bedtime. Do not crush or chew. - This is an increase from once daily, BP has been running high robert in the evenings. Previously was dropping with 100mg once daily. Follow up in about 10 days (around 02/16/2024) for F/U med changes. documented in this encounter [facility] 02-02-2024 History of Presen t illness Narrative Images from the original note were not included. Subjective Patient ID: Maury Issa is a 73 y.o. male who presents for a cold he has had He states he has a cough, headaches since the . Went to [facility] and they tested him as everything came back negative, they told him to use otc medicine for his cough. The cough has not gotten any better since taking medication. Current Outpatient Medications on File Prior to Visit Medication Sig Dispense Refill albuterol (2.5 MG/3ML) 0.083% nebulizer solution Take 3 mL (2.5 mg) by nebulization every 4 (four) hours if needed for wheezing. 75 mL 3 apixaban (Eliquis) 5 MG tablet 5 mg every 12 (twelve) hours. Ascorbic Acid (Vitamin C) 500 MG capsule Take 1 tablet by mouth 1 (one) time each day. atorvastatin (Lipitor) 40 MG tablet Take 1 tablet (40 mg) by mouth in the morning. 90 tablet 3 Bacillus Coagulans-Inulin (Probiotic) 1-250 BILLION-MG capsule TAKE 1 CAPSULE BY MOUTH TWICE DAILY (IN THE MORNING and BEFORE bedtime) 60 capsule 1 citalopram (CeleXA) 20 MG tablet Take 1 tablet (20 mg) by mouth in the morning. 90 tablet 3 empagliflozin (Jardiance) 25 MG Take 1 tablet (25 mg) by mouth 1 (one) time each day at the same time. (Patient taking differently: Take 0.5 tablets by mouth 1 (one) time each day at the same time) 90 tablet 3 ergocalciferol (Vitamin D-2) 1.25 MG (88884 UT) capsule Take 1 capsule by mouth 1 (one) time per week. finasteride (Proscar) 5 MG tablet Take 5 mg by mouth in the morning. Do not crush, chew, or split. . gabapentin (Neurontin) 300 MG capsule 1 cap every evening and 1 cap at bedtime 60 capsule 5 insulin glargine (Lantus SoloStar) 100 UNIT/ML pen Inject 20 Units under the skin in the morning. metoprolol succinate XL (Toprol-XL) 50 MG 24 hr tablet Take 1 tablet (50 mg) by mouth Daily Do not crush or chew. 30 tablet 11 nitroglycerin (Nitrostat) 0.[address] 0.4 mg under the tongue every 5 (five) minutes if needed for chest pain. pantoprazole (Protonix) 40 MG EC tablet Take 1 tablet (40 mg) by mouth in the morning and at noon. Do not crush, chew, or split. 180 tablet 3 ranolazine (Ranexa) 500 MG 12 hr tablet Take 500 mg by mouth in the morning and 500 mg before bedtime. semaglutide (Ozempic, 0.25 or 0.5 MG/DOSE,) 2 MG/1.5ML solution pen-injector Inject under the skin 1 (one) time per week. spironolactone (Aldactone) 25 MG tablet Take 12.5 mg by mouth Daily tamsulosin (Flomax) 0.4 MG 24 hr capsule Take 0.4 mg by mouth 1 (one) time each day at the same time. No current facility-administered medications on file prior to visit. I have reviewed and reconciled the history and medication list with the patient today. Allergies Allergen Reactions Isosorbide Nitrate Other Profound hypotension after single 30 mg dose. Social History Tobacco Use Smoking status: Never Smokeless tobacco: Never Vaping Use Vaping status: Never Used Substance Use Topics Alcohol use: Never Comment: caffeine yes type : soda Drug use: Never Family History Problem Relation Name Age of Onset Diabetes Mother Stroke Mother Diabetes Father Diabetes Sibling Hypertension Sibling Past Medical History: Diagnosis Date Acute sinusitis Aortic valve regurgitation 2016 mild Arthritis BPH (benign prostatic hyperplasia) 2011 AND PROSTATITIS OBSTRUCTION Bradycardia 11/20/2021 Depression ([facility]) Deviated nasal septum Diabetes mellitus ([facility]) Edema GERD (gastroesophageal reflux disease) Hx of echocardiogram 03/09/2016 ECHO EF 60-65% Hypertension ([facility]) Hypotension due to medication LVH (left ventricular hypertrophy) 2016 Mild dilation of ascending aorta ([facility]) Nasal obstruction Non-STEMI (non-ST elevated myocardial infarction) ([facility]) 02/2017 ABEL on CPAP 2009 Pain management Renal artery stenosis ([facility]) 03/2016 right Testicular pain 02/15/2022 Past Surgical History: Procedure Laterality Date ARTERIAL BYPASS SURGERY COLONOSCOPY 02/18/2023 EGD 2008 EGD 02/18/2023 OTHER SURGICAL HISTORY 2010 Procedure:cortisone injection;Disease:Arthritis PROSTATE BIOPSY 07/03/2019 SHOULDER SURGERY Right TOTAL KNEE ARTHROPLASTY Right 10/08/2019 Visit Vitals Smoking Status Never Review of Systems Constitutional: Positive for activity change and fatigue. HENT: Positive for congestion, postnasal drip, sinus pressure and sinus pain. Eyes: Negative. Respiratory: Positive for cough, shortness of breath and wheezing. Cardiovascular: Negative. Gastrointestinal: Negative. Genitourinary: Negative. Musculoskeletal: Negative. Skin: Negative. Neurological: Negative. Psychiatric/Behavioral: Negative. Hematological: Negative. Endocrine: Negative. Allergic/Immunologic: Negative. Objective Physical Exam Vitals reviewed. Constitutional: Appearance: He is ill-appearing. HENT: Head: Normocephalic and atraumatic. Ears: Comments: TM's are dull in appearance bilaterally Nose: Congestion and rhinorrhea present. Mouth/Throat: Mouth: Mucous membranes are moist. Pharynx: Oropharyngeal exudate and posterior oropharyngeal erythema present. Eyes: Extraocular Movements: Extraocular movements intact. Conjunctiva/sclera: Conjunctivae normal. Pupils: Pupils are equal, round, and reactive to light. Cardiovascular: Rate and Rhythm: Normal rate and regular rhythm. Pulses: Normal pulses. Heart sounds: Normal heart sounds. Pulmonary: Breath sounds: Wheezing present. Abdominal: General: Abdomen is flat. Bowel sounds are normal. Palpations: Abdomen is soft. Musculoskeletal: General: Normal range of motion. Cervical back: Normal range of motion and neck supple. Skin: General: Skin is warm and dry. Neurological: General: No focal deficit present. Mental Status: He is alert and oriented to person, place, and time. Psychiatric: Mood and Affect: Mood normal. Behavior: Behavior normal. Thought Content: Thought content normal. Judgment: Judgment normal. Assessment/Plan 1. Acute bronchitis, unspecified organism Discussed diagnosis with the pt, use of cefdinir and its most common side effects. Advised to increase fluids, rest, continue the atb as ordered and follow up for continued or worsening symptoms. - cefdinir (Omnicef) 300 MG capsule; Take 1 capsule (300 mg) by mouth in the morning and 1 capsule (300 mg) before bedtime. Do all this for 10 days. Dispense: 20 capsule; Refill: 0 2. Acute cough Discussed use of capron DM and its most common side effects. - Dextromethorphan-Pyrilamine ([place] DM) 7.5-7.5 MG/5ML liquid; Take 10 mL by mouth 4 (four) times a day as needed (cough and congestion) for up to 10 days Dispense: 473 mL; Refill: 0 No follow-ups on file. documented in this encounter [facility] 02-02-2024 Instructions Sophia Zaldivar NP - 02/02/2024 2:30 PM EDT Cefdinir added x 10 days [place] DM added as needed documented in this encounter [facility] 01-13-2024 Note Cardiovascular Medic [facility] SUBJECTIVE HPI PMHx: CAD s/p [place] to LAD 10/2021, a.fib, HTN, DM type II, CKD III, ABEL on CPAP Patient presents today for follow-up. Maury Issa is a 73 y.o. male here for follow-up cardiac MRI performed at [facility] on 01/11/2024. Says he's had some dizziness lately due to low blood pressure. Dr. Membreno reduced metoprolol to 50mg daily a week ago, and lisinopril was stopped. Patient states that his dizziness has since resolved. He denies chest pain, SOB, palpitations, and bleeding on Eliquis. He recently had an echocardiogram that was concerning for possible hypertrophic cardiomyopathy. Cardiac MRI was obtained and was not suggestive of HCM. 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 or radiculopathy Constipation Coronary artery disease involving [place] coronary artery of [place] heart with angina pectoris (CMS/HCC) Deformity of metatarsal Depressive disorder Deviated nasal septum Type 2 diabetes mellitus without complication (CMS/HCC) Diabetic mononeuropathy (CMS/HCC) Diabetic renal disease (CMS/HCC) Diverticular disease of colon Dyspnea on exertion Dysuria Edema of both lower extremities Edema of lower extremity Benign essential tremor Morbid (severe) obesity with alveolar hypoventilation (CMS/HCC) GERD (gastroesophageal reflux disease) Acute stress reaction Microhematuria Elevated PSA History of DVT (deep vein thrombosis) Heart disease LVH (left ventricular hypertrophy) due to hypertensive disease, without heart failure Type 2 diabetes mellitus with hyperglycemia (CMS/HCC) Incomplete bladder emptying Frequent urination Head injury 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 (CMS/HCC) Major depressive disorder, single episode, unspecified Migraine Mild intermittent asthma Mixed hyperlipidemia Nasal obstruction Nocturia Reactive airway disease Paroxysmal atrial fibrillation (CMS/HCC) Polyneuropathy Weak urinary stream Osteoarthritis of right knee RLS (restless legs syndrome) Cervical stenosis of spine Stage 3 chronic kidney disease (CMS/HCC) Urge incontinence Urinary urgency Abnormal stress test Stable angina (CMS/HCC) Obesity with body mass index 30 or greater Diverticulitis Lower urinary tract symptoms due to benign prostatic hyperplasia Anticoagulated Atypical small acinar proliferation of prostate Bilateral varicoceles Contracture, right ankle Diabetic nephropathy with proteinuria (CMS/HCC) Disturbance in sleep behavior Diverticulosis of large intestine without hemorrhage Edema Glucosuria Headaches, cluster Indigestion LLQ pain Neuropathy due to type 2 diabetes mellitus (CMS/HCC) Osteoarthritis of right foot Peripheral venous insufficiency Renal cyst Sacroiliitis (CMS/HCC) Testicular pain B12 deficiency Diabetes mellitus ([facility]/HCC) Disorder of the skin and subcutaneous tissue, unspecified H/O: osteoarthritis Hyperopia Nuclear sclerotic cataract Obstructive sleep apnea syndrome Encounter for immunization Presbyopia Sensorineural hearing loss, bilateral Tinnitus Tremor Vitamin D deficiency Encounter for fitting and adjustment of hearing aid Exposure to potentially hazardous substance Idiopathic chronic pancreatitis (CMS/HCC) Hypertensive urgency Melena NSTEMI (non-ST elevated myocardial infarction) ([facility]) Vitreous degeneration, left eye Primary localized osteoarthrosis of ankle and foot Diarrhea Past Medical History: Diagnosis Date Acromioclavicular separation Atrial fibrillation ([facility]) Chronic kidney disease Coronary artery disease Diabetes mellitus ([facility]) GERD (gastroesophageal reflux disease) Heart disease - Hypertension Rotator cuff syndrome Sleep apnea Family History Problem Relation Name Age of Onset Heart attack Brother Social History Tobacco Use Smoking status: Never Smokeless tobacco: Never Substance Use Topics Alcohol use: Not Currently Comment: moderate Drug use: Never Allergies Allergen Reactions Imdur [Isosorbide Mononitrate] Other Profound hypotension after single 30 mg dose. Isosorbide Other Other reaction(s): High blood pressure Profound hypotension after single 30 mg dose. Review of Systems Musculoskeletal: Positive for back pain. All other systems reviewed and are negative. OBJECTIVE Visit Vitals Smoking Status Never Medications: Current Outpatient Medications: amLODIPine (Norvasc) 5 mg tablet, Take 1 tablet (5 mg) by mouth in the morning and at bedtime. (Patient not taking: Reported on 12/02/2023), Disp: 60 tablet, Rfl: 3 atorvastatin (Lipitor) 40 mg tablet, Take 40 mg by mouth at bedtime., Disp: , Rfl: carvedilol (more content not included)... [facility] 01-12-2024 History of Presen t illness Narrative Patient: Maury Issa : 1950 PCP: Mason Membreno MD SUBJECTIVE Patient presents today for follow up of right HSS. Pt has had previous treatment of steroid injection, nsaids, stretching with positive relief Pt states current pain on a 1-10 scale is a 0-1 Pt presents to day for follow up tx. Patient presents today with a CC of elongated, thick nails. Pt states nails have been elongated and thick for many years and cause pain with ambulation in shoegear. Pt has tried previous treatment with minimal relief. Pt presents today for nail care and treatment. Allergies: Allergies Allergen Reactions Isosorbide Nitrate Other Profound hypotension after single 30 mg dose. Past Medical History: Past Medical History: Diagnosis Date Acute sinusitis Aortic valve regurgitation 2015 mild Arthritis BPH (benign prostatic hyperplasia) 2011 AND PROSTATITIS OBSTRUCTION Bradycardia 11/20/2021 Depression ([facility]) Deviated nasal septum Diabetes mellitus ([facility]) Edema GERD (gastroesophageal reflux disease) Hx of echocardiogram 03/09/2016 ECHO EF 60-65% Hypertension ([facility]) Hypotension due to medication LVH (left ventricular hypertrophy) 2015 Mild dilation of ascending aorta ([facility]) Nasal obstruction Non-STEMI (non-ST elevated myocardial infarction) ([facility]) 02/2017 ABEL on CPAP 2009 Pain management Renal artery stenosis ([facility]) 03/2016 right Testicular pain 02/15/2022 Medications: Current Outpatient Medications: albuterol (2.5 MG/3ML) 0.083% nebulizer solution, Take 3 mL (2.5 mg) by nebulization every 4 (four) hours if needed for wheezing., Disp: 75 mL, Rfl: 3 apixaban (Eliquis) 5 MG tablet, 5 mg every 12 (twelve) hours., Disp: , Rfl: Ascorbic Acid (Vitamin C) 500 MG capsule, Take 1 tablet by mouth 1 (one) time each day., Disp: , Rfl: atorvastatin (Lipitor) 40 MG tablet, Take 1 tablet (40 mg) by mouth in the morning., Disp: 90 tablet, Rfl: 3 Bacillus Coagulans-Inulin (Probiotic) 1-250 BILLION-MG capsule, TAKE 1 CAPSULE BY MOUTH TWICE DAILY (IN THE MORNING and BEFORE bedtime), Disp: 60 capsule, Rfl: 1 citalopram (CeleXA) 20 MG tablet, Take 1 tablet (20 mg) by mouth in the morning., Disp: 90 tablet, Rfl: 3 empagliflozin (Jardiance) 25 MG, Take 1 tablet (25 mg) by mouth 1 (one) time each day at the same time. (Patient taking differently: Take 0.5 tablets by mouth 1 (one) time each day at the same time), Disp: 90 tablet, Rfl: 3 ergocalciferol (Vitamin D-2) 1.25 MG (64279 UT) capsule, Take 1 capsule by mouth 1 (one) time per week., Disp: , Rfl: finasteride (Proscar) 5 MG tablet, Take 5 mg by mouth in the morning. Do not crush, chew, or split. ., Disp: , Rfl: gabapentin (Neurontin) 300 MG capsule, 1 cap every evening and 1 cap at bedtime, Disp: 60 capsule, Rfl: 5 insulin glargine (Lantus SoloStar) 100 UNIT/ML pen, Inject 20 Units under the skin in the morning., Disp: , Rfl: metoprolol succinate XL (Toprol-XL) 100 MG 24 hr tablet, Take 1 tablet (100 mg) by mouth Daily Do not crush or chew., Disp: 30 tablet, Rfl: 11 nitroglycerin (Nitrostat) 0.4 MG SL tablet, Place 0.4 mg under the tongue every 5 (five) minutes if needed for chest pain., Disp: , Rfl: pantoprazole (Protonix) 40 MG EC tablet, Take 1 tablet (40 mg) by mouth in the morning and at noon. Do not crush, chew, or split., Disp: 180 tablet, Rfl: 3 ranolazine (Ranexa) 500 MG 12 hr tablet, Take 500 mg by mouth in the morning and 500 mg before bedtime., Disp: , Rfl: semaglutide (Ozempic, 0.25 or 0.5 MG/DOSE,) 2 MG/1.5ML solution pen-injector, Inject under the skin 1 (one) time per week., Disp: , Rfl: spironolactone (Aldactone) 25 MG tablet, Take 12.5 mg by mouth Daily, Disp: , Rfl: tamsulosin (Flomax) 0.4 MG 24 hr capsule, Take 0.4 mg by mouth 1 (one) time each day at the same time., Disp: , Rfl: Social History: Social History Socioeconomic History Marital status: Unmarried Spouse name: Not on file Number of children: Not on file Years of education: Not on file Highest education level: Not on file Occupational History Not on file Tobacco Use Smoking status: Never Smokeless tobacco: Never Vaping Use Vaping status: Never Used Substance and Sexual Activity Alcohol use: Never Comment: caffeine yes type : soda Drug use: Never Sexual activity: Defer Partners: Decline to Answer Other Topics Concern Not on file Social History Narrative Not on file Social Determinants of Health Financial Resource Strain: Not on file Food Insecurity: Not on file Transportation Needs: Not on file Physical Activity: Not on file Stress: Not on file Social Connections: Not on file Intimate Partner Violence: Unknown (06/30/2023) Re[facility] from [facility] Safety & Environment Fear of Current or Ex-Partner: Not on file Emotionally Abused: Not on file Physically Abused: Not on file Sexually Abused: Not on file Physically or Sexually Abused: Not on file Housing Stability: Not on file ROS: General: denies fever, chills, fatigue, malaise GI: denies abdominal pain, loose stool or cramping. OBJECTIVE LE EXAM: DERM: Elongated thick yellow crumbly nails digits 1 through 10. Negative hair growth with thin shiny atrophic skin bilaterally VASC: positive DP and negative PT pedal pulses NEURO: 5.07 [place] monofilament test intact to digits and forefoot bilaterally 125Hz tuning fork diminished to 1st MPJ bilaterally ORTHO: Positive pain on palpation to nails 1 through 10 Negative pain on palpation right medial calcaneal tubercle ASSESSMENT 1. Plantar fasciitis 2. Contracture of right ankle 3. Diabetes mellitus due to underlying condition with diabetic polyneuropathy, with long-term current use of insulin ([facility]) 4. Onychomycosis 5. Toe pain, bilateral PLAN Continue with OTC inserts daily Patient to continue with oral anti - inflammatories as needed for pain and recommended OTC medications such as tylenol or Ibuprofen Patient is to continue with stretching excercizes daily with patient to continue with night stretching splint or manual stretching as needed p.r.n. Debride nails in length and thickness digits 1 through 10 Patient educated today on proper diabetic foot care including monitoring feet daily for any signs of infection openings in the skin or irregularities to both feet. Patient had a diabetic neurological exam today to both their feet and discussed proper shoe gear Kyrie Carney DPM documented in this encounter [facility] 01-11-2024 History of Presen t illness Narrative Radiology Service Progress Note DATE OF SERVICE: January 11, 2024 TIME: 3:46 PM PATIENT IDENTITY VERIFICATION COMPLETED USING TWO (2) STANDARD IDENTIFIERS: Name and Date of confirmed by patient verbally and Name and Date of confirmed by identification band. FALL SCREENING: Has the patient had 2 falls in the last year or 1 fall with injury or currently using an Ambulatory Assistive Device (Walker, Cane, Wheelchair, Crutches, etc.)? No PATIENT GENDER DATA: Male PATIENT RELEVANT IMPLANT DATA REVIEWED: Yes PATIENT PRESENTS WITH AN IMPLANTABLE OR ATTACHED TRIAL PARALEGAL: No ALLERGIES: Reviewed and unchanged CONTRAST ALLERGY: NO. EXAM: MRI - CONTRAST TYPE: GROUP II PERIPHERAL IV DATA: Ambulatory: A peripheral IV was started in the Right antecubital site with a Angio cath: 22 gauge. RADIOLOGY DEPARTMENT: MR; Exam(s) Completed: Cardiac: Cardiac SIGNATURE: RT Estee(Cookie) PATIENT NAME: Maury Issa DATE: January 11, 2024 TIME: 3:46 PM documented in this encounter [facility] 01-11-2024 Note HNO ID: [id number] Author: MIGUEL ÁNGEL OVALLE RT (R) Service: Radiology Author Type: Technologist Type: Progress Notes Filed: 01/11/2024 15:47 Note Text: Radiology Service Progress Note DATE OF SERVICE: January 11, 2024 TIME: 3:46 PM PATIENT IDENTITY VERIFICATION COMPLETED USING TWO (2) STANDARD IDENTIFIERS: Name and Date of confirmed by patient verbally and Name and Date of confirmed by identification band. FALL SCREENING: Has the patient had 2 falls in the last year or 1 fall with injury or currently using an Ambulatory Assistive Device (Walker, Cane, Wheelchair, Crutches, etc.)? No PATIENT GENDER DATA: Male PATIENT RELEVANT IMPLANT DATA REVIEWED: Yes PATIENT PRESENTS WITH AN IMPLANTABLE OR ATTACHED TRIAL PARALEGAL: No ALLERGIES: Reviewed and unchanged CONTRAST ALLERGY: NO. EXAM: MRI - CONTRAST TYPE: GROUP II PERIPHERAL IV DATA: Ambulatory: A peripheral IV was started in the Right antecubital site with a Angio cath: 22 gauge. RADIOLOGY DEPARTMENT: MR; Exam(s) Completed: Cardiac: Cardiac SIGNATURE: RT Estee(Cookie) PATIENT NAME: Maury Issa DATE: January 11, 2024 TIME: 3:46 PM [facility] 01-05-2024 History of Presen t illness Narrative Images from the original note were not included. Subjective Patient ID: Maury Issa is a 73 y.o. male who presents for Hypotension. Pt stopped lisinopril yesterday as directed States he is still feeling a little tires Denies syncope,CP,dyspnea Current Outpatient Medications on File Prior to Visit Medication Sig Dispense Refill albuterol (2.5 MG/3ML) 0.083% nebulizer solution Take 3 mL (2.5 mg) by nebulization every 4 (four) hours if needed for wheezing. 75 mL 3 apixaban (Eliquis) 5 MG tablet 5 mg every 12 (twelve) hours. Ascorbic Acid (Vitamin C) 500 MG capsule Take 1 tablet by mouth 1 (one) time each day. atorvastatin (Lipitor) 40 MG tablet Take 1 tablet (40 mg) by mouth in the morning. 90 tablet 3 Bacillus Coagulans-Inulin (Probiotic) 1-250 BILLION-MG capsule TAKE 1 CAPSULE BY MOUTH TWICE DAILY (IN THE MORNING and BEFORE bedtime) 60 capsule 1 citalopram (CeleXA) 20 MG tablet Take 1 tablet (20 mg) by mouth in the morning. 90 tablet 3 empagliflozin (Jardiance) 25 MG Take 1 tablet (25 mg) by mouth 1 (one) time each day at the same time. (Patient taking differently: Take 0.5 tablets by mouth 1 (one) time each day at the same time) 90 tablet 3 ergocalciferol (Vitamin D-2) 1.25 MG (67848 UT) capsule Take 1 capsule by mouth 1 (one) time per week. finasteride (Proscar) 5 MG tablet Take 5 mg by mouth in the morning. Do not crush, chew, or split. . gabapentin (Neurontin) 300 MG capsule 1 cap every evening and 1 cap at bedtime 60 capsule 5 insulin glargine (Lantus SoloStar) 100 UNIT/ML pen Inject 20 Units under the skin in the morning. metoprolol succinate XL (Toprol-XL) 100 MG 24 hr tablet Take 1 tablet (100 mg) by mouth Daily Do not crush or chew. 30 tablet 11 nitroglycerin (Nitrostat) 0.[address] 0.4 mg under the tongue every 5 (five) minutes if needed for chest pain. pantoprazole (Protonix) 40 MG EC tablet Take 1 tablet (40 mg) by mouth in the morning and at noon. Do not crush, chew, or split. 180 tablet 3 ranolazine (Ranexa) 500 MG 12 hr tablet Take 500 mg by mouth in the morning and 500 mg before bedtime. semaglutide (Ozempic, 0.25 or 0.5 MG/DOSE,) 2 MG/1.5ML solution pen-injector Inject under the skin 1 (one) time per week. spironolactone (Aldactone) 25 MG tablet Take 12.5 mg by mouth Daily tamsulosin (Flomax) 0.4 MG 24 hr capsule Take 0.4 mg by mouth 1 (one) time each day at the same time. [DISCONTINUED] lisinopril 10 MG tablet Take 1 tablet (10 mg) by mouth in the morning and 1 tablet (10 mg) before bedtime. 180 tablet 3 No current facility-administered medications on file prior to visit. I have reviewed and reconciled the history and medication list with the patient today. Allergies Allergen Reactions Isosorbide Nitrate Other Profound hypotension after single 30 mg dose. Social History Tobacco Use Smoking status: Never Smokeless tobacco: Never Vaping Use Vaping status: Never Used Substance Use Topics Alcohol use: Never Comment: caffeine yes type : soda Drug use: Never Family History Problem Relation Name Age of Onset Diabetes Mother Stroke Mother Diabetes Father Diabetes Sibling Hypertension Sibling Past Medical History: Diagnosis Date Acute sinusitis Aortic valve regurgitation 2015 mild Arthritis BPH (benign prostatic hyperplasia) 2011 AND PROSTATITIS OBSTRUCTION Bradycardia 11/20/2021 Depression (CMS/HCC) Deviated nasal septum Diabetes mellitus (CMS/HCC) Edema GERD (gastroesophageal reflux disease) Hx of echocardiogram 03/09/2016 ECHO EF 60-65% Hypertension (CMS/HCC) Hypotension due to medication LVH (left ventricular hypertrophy) 2015 Mild dilation of ascending aorta (CMS/HCC) Nasal obstruction Non-STEMI (non-ST elevated myocardial infarction) (CMS/HCC) 02/2017 ABEL on CPAP 2009 Pain management Renal artery stenosis (CMS/HCC) 03/2016 right Testicular pain 02/15/2022 Past Surgical History: Procedure Laterality Date ARTERIAL BYPASS SURGERY COLONOSCOPY 02/18/2023 EGD 2008 EGD 02/18/2023 OTHER SURGICAL HISTORY 2010 Procedure:cortisone injection;Disease:Arthritis PROSTATE BIOPSY 07/03/2019 SHOULDER SURGERY Right TOTAL KNEE ARTHROPLASTY Right 10/08/2019 Visit Vitals BP 114/70 Pulse 67 Ht 5' 8 Wt 192 lb SpO2 98% BMI 29.19 kg/m Smoking Status Never BSA 2.04 m Review of Systems Objective Physical Exam Constitutional: General: He is not in acute distress. Appearance: He is normal weight. He is not ill-appearing. HENT: Head: Normocephalic. Cardiovascular: Rate and Rhythm: Normal rate and regular rhythm. Heart sounds: Normal heart sounds. No murmur heard. Pulmonary: Effort: Pulmonary effort is normal. Breath sounds: Normal breath sounds. Musculoskeletal: General: No swelling. Right lower leg: No edema. Left lower leg: No edema. Neurological: Mental Status: He is alert. Psychiatric: Mood and Affect: Mood normal. Thought Content: Thought content normal. Judgment: Judgment normal. Assessment/Plan Diagnoses and all orders for this visit: Hypertrophic cardiomyopathy (CMS/HCC) - Continue Toprol XL 100mg- if BP continiues to drop I will send in 50mg dose instead. Primary hypertension (CMS/HCC) - Hold Lisinopril. Follow up in about 4 weeks (around 02/02/2024) for F/U med changes. documented in this encounter [facility] 01-04-2024 Telephone encounter Note Summary: CMR Protocol Aye Boateng, Could you please provide a CMR Protocol for Maury Issa who is scheduled as an Outpatient for a Cardiac MRI on TuesdayJanuary 10 at 3:00pm. Order in scanned documents date 12/02/23 as Miscellaneous Imaging. Mr Cardiac Morphology and function w & wo iv contrast. DX: Hypertrophic Cardiomyopathy. Thank you! Sincerely, Francia Dumont RT(R)MRVI [facility] 01-04-2024 Miscellaneous Notes Summary: CMR Protocol Aye Boateng, Could you please provide a CMR Protocol for Maury Issa who is scheduled as an Outpatient for a Cardiac MRI on TuesdayJanuary 10 at 3:00pm. Order in scanned documents date 12/02/23 as Miscellaneous Imaging. Mr Cardiac Morphology and function w & wo iv contrast. DX: Hypertrophic Cardiomyopathy. Thank you! Sincerely, Francia Dumont RT(R)MRVI documented in this encounter [facility] 12-26-2023 History of Presen t illness Narrative Images from the original note were not included. Subjective Patient ID: Maury Issa is a 73 y.o. male who presents for Diabetes and Hypertension. Diabetes Mellitus Patient presents for follow up of diabetes. Current symptoms include: none. Patient denies foot ulcerations, hypoglycemia , paresthesia of the feet, polydipsia, polyuria, visual disturbances, and vomiting. Evaluation to date has included: fasting blood sugar, fasting lipid panel, hemoglobin A1C, and microalbuminuria. Home sugars: BGs have been ranging between 100 and 130 Hypertension Patient is here for follow-up of elevated blood pressure. Blood pressure is not well controlled at home. Cardiac symptoms: none. Patient denies chest pain, claudication, exertional chest pressure/discomfort, fatigue, irregular heart beat, near-syncope, orthopnea, palpitations, paroxysmal nocturnal dyspnea, syncope, and tachypnea. Cardiovascular risk factors: advanced age (older than 55 for men, 65 for women), diabetes mellitus, hypertension, and male gender. Pt brought readings from home has not been having episodes of hypotension since med direction change Diabetes Hypoglycemia symptoms include headaches. Pertinent negatives for diabetes include no chest pain. Hypertension Associated symptoms include headaches. Pertinent negatives include no chest pain, palpitations or shortness of breath. Current Outpatient Medications on File Prior to Visit Medication Sig Dispense Refill albuterol (2.5 MG/3ML) 0.083% nebulizer solution Take 3 mL (2.5 mg) by nebulization every 4 (four) hours if needed for wheezing. 75 mL 3 apixaban (Eliquis) 5 MG tablet 5 mg every 12 (twelve) hours. Ascorbic Acid (Vitamin C) 500 MG capsule Take 1 tablet by mouth 1 (one) time each day. atorvastatin (Lipitor) 40 MG tablet Take 1 tablet (40 mg) by mouth in the morning. 90 tablet 3 Bacillus Coagulans-Inulin (Probiotic) 1-250 BILLION-MG capsule TAKE 1 CAPSULE BY MOUTH TWICE DAILY (IN THE MORNING and BEFORE bedtime) 60 capsule 1 citalopram (CeleXA) 20 MG tablet Take 1 tablet (20 mg) by mouth in the morning. 90 tablet 3 empagliflozin (Jardiance) 25 MG Take 1 tablet (25 mg) by mouth 1 (one) time each day at the same time. (Patient taking differently: Take 0.5 tablets by mouth 1 (one) time each day at the same time) 90 tablet 3 ergocalciferol (Vitamin D-2) 1.25 MG (31098 UT) capsule Take 1 capsule by mouth 1 (one) time per week. finasteride (Proscar) 5 MG tablet Take 5 mg by mouth in the morning. Do not crush, chew, or split. . gabapentin (Neurontin) 300 MG capsule 1 cap every evening and 1 cap at bedtime 60 capsule 5 insulin glargine (Lantus SoloStar) 100 UNIT/ML pen Inject 20 Units under the skin in the morning. lisinopril 10 MG tablet Take 1 tablet (10 mg) by mouth in the morning and 1 tablet (10 mg) before bedtime. 180 tablet 3 nitroglycerin (Nitrostat) 0.[address] 0.4 mg under the tongue every 5 (five) minutes if needed for chest pain. pantoprazole (Protonix) 40 MG EC tablet Take 1 tablet (40 mg) by mouth in the morning and at noon. Do not crush, chew, or split. 180 tablet 3 ranolazine (Ranexa) 500 MG 12 hr tablet Take 500 mg by mouth in the morning and 500 mg before bedtime. semaglutide (Ozempic, 0.25 or 0.5 MG/DOSE,) 2 MG/1.5ML solution pen-injector Inject under the skin 1 (one) time per week. spironolactone (Aldactone) 25 MG tablet Take 12.5 mg by mouth Daily tamsulosin (Flomax) 0.4 MG 24 hr capsule Take 0.4 mg by mouth 1 (one) time each day at the same time. [DISCONTINUED] carvedilol (Coreg) 25 MG tablet Take 0.5 tablets (12.5 mg) by mouth every 12 (twelve) hours 100 tablet 3 [DISCONTINUED] cephalexin (Keftab) 500 MG tablet Take 500 mg by mouth in the morning and 500 mg before bedtime. [DISCONTINUED] dicyclomine (Bentyl) 10 MG capsule Take 10 mg by mouth 4 (four) times a day as needed No current facility-administered medications on file prior to visit. Allergies Allergen Reactions Isosorbide Nitrate Other Profound hypotension after single 30 mg dose. Social History Tobacco Use Smoking status: Never Smokeless tobacco: Never Vaping Use Vaping status: Never Used Substance Use Topics Alcohol use: Never Comment: caffeine yes type : soda Drug use: Never Family History Problem Relation Name Age of Onset Diabetes Mother Stroke Mother Diabetes Father Diabetes Sibling Hypertension Sibling Past Medical History: Diagnosis Date Acute sinusitis Aortic valve regurgitation 2015 mild Arthritis BPH (benign prostatic hyperplasia) 2011 AND PROSTATITIS OBSTRUCTION Bradycardia 11/20/2021 Depression (CMS/HCC) Deviated nasal septum Diabetes mellitus (CMS/HCC) Edema GERD (gastroesophageal reflux disease) Hx of echocardiogram 03/09/2016 ECHO EF 60-65% Hypertension (CMS/HCC) Hypotension due to medication LVH (left ventricular hypertrophy) 2015 Mild dilation of ascending aorta ([facility]/HCC) Nasal obstruction Non-STEMI (non-ST elevated myocardial infarction) ([facility]) 02/2017 ABEL on CPAP 2009 Pain management Renal artery stenosis ([facility]/HCC) 03/2016 right Testicular pain 02/15/2022 Past Surgical History: Procedure Laterality Date ARTERIAL BYPASS SURGERY COLONOSCOPY 02/18/2023 EGD 2008 EGD 02/18/2023 OTHER SURGICAL HISTORY 2010 Procedure:cortisone injection;Disease:Arthritis PROSTATE BIOPSY 07/03/2019 SHOULDER SURGERY Right TOTAL KNEE ARTHROPLASTY Right 10/08/2019 Visit Vitals BP 102/62 Pulse 77 Ht 5' 8 Wt 196 lb SpO2 97% BMI 29.80 kg/m Smoking Status Never BSA 2.07 m Review of Systems Respiratory: Negative for shortness of breath. Cardiovascular: Negative for chest pain and palpitations. Neurological: Positive for headaches. Objective Physical Exam Constitutional: General: He is not in acute distress. Appearance: He is normal weight. He is not ill-appearing. HENT: Head: Normocephalic. Cardiovascular: Rate and Rhythm: Normal rate and regular rhythm. Heart sounds: Normal heart sounds. No murmur heard. Pulmonary: Effort: Pulmonary effort is normal. Breath sounds: Normal breath sounds. Musculoskeletal: General: No swelling. Right lower leg: No edema. Left lower leg: No edema. Neurological: Mental Status: He is alert. Psychiatric: Mood and Affect: Mood normal. Thought Content: Thought content normal. Judgment: Judgment normal. Assessment/Plan Diagnoses and all orders for this visit: Hypertrophic cardiomyopathy (CMS/HCC) - metoprolol succinate XL (Toprol-XL) 100 MG 24 hr tablet; Take 1 tablet (100 mg) by mouth Daily Do not crush or chew. Follow up in about 2 months (around 02/25/2024) for Routine F/U. documented in this encounter [facility] 12-02-[address] [facility] SUBJECTIVE Maury Issa is a 73 y.o. male here for follow-up. HPI PMHx: CAD s/p [place] to LAD 10/2021, a.fib, HTN, DM type II, CKD III, ABEL on CPAP Patient presents today for follow-up. Overall, patient is doing well. He denies any chest pain. He does endorse some dyspnea on exertion, which he feels is slightly worse than usual. Again, he adamantly denies any chest pain. He denies any lower extremity edema. No orthopnea or paroxysmal nocturnal dyspnea. He recently had an echocardiogram that was concerning for possible hypertrophic cardiomyopathy. Cardiac MRI will be ordered. He denies any near-syncope or syncope. 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 or radiculopathy Constipation Coronary artery disease involving [place] coronary artery of [place] heart with angina pectoris (CMS/HCC) Deformity of metatarsal Depressive disorder Deviated nasal septum Type 2 diabetes mellitus without complication (CMS/HCC) Diabetic mononeuropathy (CMS/HCC) Diabetic renal disease (CMS/HCC) Diverticular disease of colon Dyspnea on exertion Dysuria Edema of both lower extremities Edema of lower extremity Benign essential tremor Morbid (severe) obesity with alveolar hypoventilation (CMS/HCC) GERD (gastroesophageal reflux disease) Acute stress reaction Microhematuria Elevated PSA History of DVT (deep vein thrombosis) Heart disease LVH (left ventricular hypertrophy) due to hypertensive disease, without heart failure Type 2 diabetes mellitus with hyperglycemia (CMS/HCC) Incomplete bladder emptying Frequent urination Head injury 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/HCC) Polyneuropathy Weak urinary stream Osteoarthritis of right knee RLS (restless legs syndrome) Cervical stenosis of spine Stage 3 chronic kidney disease ([facility]) Urge incontinence Urinary urgency Abnormal stress test Stable angina ([facility]) Obesity with body mass index 30 or greater Diverticulitis Lower urinary tract symptoms due to benign prostatic hyperplasia Anticoagulated Atypical small acinar proliferation of prostate Bilateral varicoceles Contracture, right ankle Diabetic nephropathy with proteinuria ([facility]) Disturbance in sleep behavior Diverticulosis of large intestine without hemorrhage Edema Glucosuria Headaches, cluster Indigestion LLQ pain Neuropathy due to type 2 diabetes mellitus ([facility]) Osteoarthritis of right foot Peripheral venous insufficiency Renal cyst Sacroiliitis ([facility]) Testicular pain B12 deficiency Diabetes mellitus ([facility]) Disorder of the skin and subcutaneous tissue, unspecified H/O: osteoarthritis Hyperopia Nuclear sclerotic cataract Obstructive sleep apnea syndrome Encounter for immunization Presbyopia Sensorineural hearing loss, bilateral Tinnitus Tremor Vitamin D deficiency Encounter for fitting and adjustment of hearing aid Exposure to potentially hazardous substance Idiopathic chronic pancreatitis ([facility]) Hypertensive urgency Melena NSTEMI (non-ST elevated myocardial infarction) ([facility]) Vitreous degeneration, left eye Primary localized osteoarthrosis of ankle and foot Diarrhea Past Medical History: Diagnosis Date Acromioclavicular separation Atrial fibrillation ([facility]) Chronic kidney disease Coronary artery disease Diabetes mellitus ([facility]) GERD (gastroesophageal reflux disease) Heart disease 6- Hypertension Rotator cuff syndrome Sleep apnea Family History Problem Relation Name Age of Onset Heart attack Brother Social History Tobacco Use Smoking status: Never Smokeless tobacco: Never Substance Use Topics Alcohol use: Not Currently Comment: moderate Drug use: Never Allergies Allergen Reactions Imdur [Isosorbide Mononitrate] Other Profound hypotension after single 30 mg dose. Isosorbide Other Other reaction(s): High blood pressure Profound hypotension after single 30 mg dose. ROS Musculoskeletal: Positive for back pain. All other systems reviewed and are negative. OBJECTIVE Visit Vitals BP 146/78 (BP Location: Right arm, Patient Position: Sitting) Pulse 60 Ht 1.727 m (5' 8 ) Wt 88.9 kg (196 lb) SpO2 98% BMI 29.80 kg/m??? Smoking Status Never BSA 2.07 m??? Medications: Current Outpatient Medications: atorvastatin (Lipitor) 40 mg tablet, Take 40 mg by mouth at bedtime., Disp: , Rfl: cholecalciferol (Vitamin D-3) 25 MCG (1000 units) tab (more content not included)... 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 He asked for ECG for chest pain s/p lumbar RFA yesterday. ECG showed NSR- Normal ECG . I advised patient to go to the ED if chest pain becomes worse or he becomes SOB. He thought maybe the pain was anxiety, as he did not feel well after his procedure yesterday. [facility] 06-16-2023 Evaluation note Encounter Date Diagnosis Assessment Notes Jun, Contact with and (suspected) exposure to other viral communicable diseases (ICD-10 - Z20.828) Jun, Viral URI with cough (ICD-10 - J06.9) Advised patient that COVID/Influenza A/B test was negative today. Advised patient that will treat as viral URI. Supportive care as directed, increase fluids and rest, Tylenol/Motrin as directed, rx of [place] and Flonase, cool mist humidifier, throat lozenges. Discussed infection control practices such as good hand washing and mask wearing. Patient to follow up with PCP if symptoms persist or worsen despite treatment. Immediate eval for SOB, difficulty breathing, chest pain, fevers that do not break with antipyretic or any other concerning symptoms as reviewed on patient education handout. Patient verbalizes understanding and is agreeable to treatment plan. Patient left in stable condition. [facility] Other 12-05-2023 Evaluation note* Encounter Date Diagnosis Assessment Notes Treatment Notes Treatment Clinical Notes Apr, Diarrhea (ICD-10 - R19.7) Pt is still having diarrhea Pt to take two creon with each meal, in the middle of the meal. Pt to take colestipol TID in the am and centrum silver before bedtime Pt advised to drink 8-12 oz of water a day Pt RTO in 3 months Apr, Gastric polyps (ICD-10 - K31.7) Apr, Abdominal pain (ICD-10 - R10.9) [facility] Other 10-23-2023 Discharge summary Author Dwain Peñaloza [facility] February 28, 2023 12:22pm Note Date/Time February 28, 2023 1 2:22pm [facility] [address] [place], [place] [id number] Discharge Summary Signed Patient: Maury Issa MR#: [id number] : 1950 Acct:[id number] Age/Sex: 72 / M Adm Date: 3 Loc: Room: [address] [place] [address]: Dwain Peñaloza MD Copies to: MD Mason Duenas II, MD~ Providers Date of Discharge: 02/28/23 Discharging Provider: Dwain Peñaloza Primary Care Provider: Mason Membreno Consults: 02/24/23 23:29 Consult to Gastroenterology Routine 02/25/23 01:48 Consult to Sleep Lab Routine Discharge Diagnosis (1) Melena: Final Diagnosis Final Discharge Diagnosis: GI bleeding Summary Hospital Course Hospital course: 72 years old male on Plavix due to coronary artery disease with intervention in October 2021, on Eliquis due to atrial fibrillation presented to outside emergency room with dizziness. Approximately couple weeks ago due to elevated blood pressure his lisinopril dose was increased to 40 mg and he was taken off Norvasc. During the last couple of days he noted that he is quite dizzy. He monitors his blood pressure couple times a day, his systolic blood pressure was in 80s today and yesterday. He admitted that he had been having some lightheadedness but denied any syncopal episode. He complained of intermittent epigastric/chest discomfort lasting for about 1 minute, pressure-like sensation,without any other associated symptoms. He denied any abdominal pain. He deniedany nausea any vomiting. He notes that he has been having black stools, but no diarrhea for the last couple of days. The last dose of Eliquis earlier this morning. On Tuesday he was diagnosed with COVID-19 viral infection was started on steroid therapy. He has been having some cough but respiratory symptoms already improved. Upon presentation to emergency room his blood pressure was noted to be in 90s, after 1 L of IV fluid blood pressure increased to 121/77, saturating 98% on roomair, with heart rate 66. Chest x-ray without acute findings. EKG normal sinus without acute findings. Troponins were negative. Rectal exam showed dark stools with guaiac positive. Hemoglobin noted to be at 8.1 with creatinine 2.6,last creatinine 2.4 in September 2019 GI was consulted. Eliquis and Plavix were held. His hemoglobin hematocrit stayed stable. Treated conservatively. No more bleeding. Patient discharged home in stable condition. Plan to hold Eliquis for 3 days and Plavix for 1 weekper GI recommendation. Increase Protonix to twice daily per GI recommendation. Follow- up with GI in April. Condition Condition at Discharge: Stable Time Spent with Patient Time spent providing/coordinating discharge services (# min): 35 Diagnostic Studies Completed and Pending Studies Labs on day of discharge: 02/28/23 12:01: POC Glucose 98, POC Glucose Comment Glu2: cleaned meter 02/28/23 06:28: PHA Creatinine Clear 40.83, Sodium 143, Potassium 4.5, Chloride 110 H, Carbon Dioxide 30.2, Anion Gap 7.3, BUN 23 D, Creatinine 1.78 H, Est GFR(CKD- EPI) 40.533, Glucose 82, Calcium 8.3 L 02/28/23 06:27: Hgb 9.7 L, Hct 27.9 L 02/28/23 06:16: POC Glucose 96 02/28/23 00:21: POC Glucose 83 02/27/23 20:00: Hgb 10.6 L, Hct 30.4 L 02/27/23 18:08: POC Glucose 172 02/27/23 12:11: POC Glucose 89 Exam Physical Exam Vital Signs: Temp Pulse Resp BP Pulse Ox O2 Del Method 97.7 F 56 L 18 135/87 98 Room Air 02/28/23 08:00 02/28/23 08:00 02/28/23 08:00 02/28/23 08:00 02/28/23 08:00 02/28/23 08:00 Narrative: General patient laying in bed in no acute distress alert awake oriented x3 HEENT PERRLA Neck supple no JVD no carotid bruit CVS S1-S2 regular rate and rhythm no murmur no gallop Chest clear to auscultation percussion Abdomen soft bowel sounds normoactive no rebound no guarding Extremities no stenosis no clubbing no edema Musculoskeletal exam normal no joint effusion Neurologic exam oriented x3 alert awake no focal left Psychiatry: Normal insight and judgment Discharge Plan Discharge Plan Activity: No Activity Restriction Instructions: Gastrointestinal Bleeding Prescriptions: Continued insulin glargine [Lantus U-100 Insulin] 100 unit/mL Solution 20 unit SUBCUT QAM lisinopril 20 mg Tablet 20 mg PO DAILY citalopram 20 mg Tablet 20 mg PO DAILY tamsulosin 0.4 mg Capsule 0.4 mg PO DAILY empagliflozin 25 mg Tablet 12.5 mg PO DAILY Ozempic 0.25 mg or 0.5 mg (2 mg/3 mL) Pen Injector 0.5 mg SUBCUT QWEEK Rx Instructions: tuesday ranolazine 500 mg Tablet Extended Release 12 Hr 500 mg PO BID gabapentin 300 mg Capsule 300 mg PO QHS albuterol sulfate 2.5 mg /3 mL (0.083 %) solution for nebulization 2.5 mg inhalation BID prednisone 20 mg tablet 20 mg PO DAILY Patient Comments: TAKE 1 TABLET BY MOUTH TWICE DAILY [place] DM 7.5-7.5 mg/5 mL liquid 10 ml PO Q8HR Patient Comments: TAKE 10ml BY MOUTH EVERY 8 HOURS FOR 5 DAYS Zenpep 40,000-126,000- 168,000 unit capsule,delayed release(DR/EC) 2 cap PO TIDWMEAL gabapentin 300 mg capsule 300 mg PO DAILY.WITH.SUPPER Patient Comments: TAKE 1 CAPSULE BY MOUTH EVERYDAY IN THE EVENING AND AT BEDTIME FOR 30 DAYS Changed pantoprazole 40 mg Tablet,Delayed Release (Dr/Ec) 40 mg PO BID Qty: 60 1RF Held Eliquis 5 mg Tablet 5 mg PO BID Hold Instructions: Resume on 03/03/23. clopidogrel 75 mg Tablet 75 mg PO DAILY 30 Days Qty: 30 11RF Hold Instructions: Resume on 03/07/23. Documented By: Dwain Peñaloza MD 02/28/23 1218 Signed By: <Electronically signed by Dwain Peñaloza MD> 02/28/23 1222 [facility] Work Phone: 1(670) 699-369610-23-2023 Progress note Author Nikolas Villafana [facility] February 28, 2023 9:27am Note Date/Time February 28, 2023 9 :27am [facility] [address] [place] [address] Gastroenterology PN Signed Patient: Maury Issa MR#: [id number] : 1950 Acct:[id number] Age/Sex: 72 / M Adm Date: 3 Loc: 3T Room: [address] [place] [address] Type: ADM IN Attending Dr: Dwain Peñaloza MD Copies to: MD Nikolas Duenas MD Daniel Berry II, MD~ Date of Service: 02/28/2023 Exam Physical Exam Vital Signs: Temp Pulse Resp BP Pulse Ox O2 Del Method 97.7 F 56 L 18 135/87 98 Room Air 02/28/23 08:00 02/28/23 08:00 02/28/23 08:00 02/28/23 08:00 02/28/23 08:00 02/28/23 08:00 Objective Allergies and Medications Allergies/Adverse Reactions: Allergies Allergy/AdvReac Type Severity Reaction Status Date / Time isosorbide Allergy Unknown Verified 02/18/23 09:45 Reaction Active Meds: Active Medications Generic Name Dose Route Start Last Admin Trade Name Freq PRN Reason Stop Dose Admin Acetaminophen 650 mg 02/24/23 23:29 02/25/23 02:31 Acetaminophen 325 Mg Tablet PO 02/24/24 23:28 650 mg Q4H PRN Administration Pain Scale 1 - 5 Albuterol 2.5 mg 02/24/23 23:29 Albuterol Neb 2.5 Mg/3 Ml Vial.Neb INHALATION 02/24/24 23:28 Q2H PRN Shortness Of Breath Benzonatate 200 mg 02/25/23 09:42 Benzonatate 100 Mg Capsule PO 02/25/24 09:41 TID PRN Cough Citalopram Hydrobromide 20 mg 02/25/23 09:00 02/28/23 08:17 Citalopram 20 Mg Tablet PO 02/25/24 08:59 20 mg DAILY ARLINE Administration Dextrose 0 gm 02/24/23 23:29 Dextrose 50% In Water 25 Gm/50 Ml Syringe IV-PUSH 02/24/24 23:28 PRN PRN Hypoglycemia Docusate Sodium 200 mg 02/24/23 23:29 Docusate 100 Mg Capsule PO 10/18/24 23:28 BID PRN Constipation Gabapentin 300 mg 02/25/23 22:00 02/27/23 21:00 Gabapentin 300 Mg Capsule PO 02/25/24 21:59 300 mg QHS ARLINE Administration Glucose 0 gm 02/24/23 23:29 Dextrose 40% Gel 15 Gm Tube PO 02/24/24 23:28 PRN PRN Hypoglycemia Hydralazine HCl 10 mg 02/24/23 23:29 Hydralazine 20 Mg/Ml Vial IV-PUSH 02/24/24 23:28 Q4H PRN if SBP > 185 Lactated Ringer's 1,000 mls @ 75 mls/hr 02/25/23 15:45 02/28/23 04:48 Lactated Ringers IV 02/25/24 15:44 75 mls/hr .[id number] ARLINE Administration Insulin Aspart 0 units 02/25/23 00:00 02/28/23 06:35 Insulin Aspart 300 Units/3 Ml Insuln.Pen SUBCUT 02/25/24 00:00 Not Given Q6HR ARLINE Protocol Insulin Glargine 20 units 02/25/23 09:00 02/28/23 08:18 Insulin Glargine 300 Units/3 Ml Insuln.Pen SUBCUT 02/25/24 08:59 20 units DAILY ARLINE Administration Pantoprazole Sodium 40 mg 02/25/23 09:00 02/28/23 08:17 Pantoprazole 40 Mg Vial IV-PUSH 02/25/24 08:59 40 mg BID ARLINE Administration Prochlorperazine Edisylate 5 mg 02/24/23 23:29 Prochlorperazine Edisylate 10 Mg/2 Ml Vial IV-PUSH 02/24/24 23:28 Q4H PRN Nausea And Vomiting Ranolazine 500 mg 02/25/23 09:00 02/28/23 08:17 Ranolazine 500 Mg Tab.Er.12h PO 02/25/24 08:59 500 mg BID ARLINE Administration Sodium Chloride 10 ml 02/24/23 23:29 02/27/23 09:26 Sodium Chloride 0.9 % 10 Ml Syringe IV-PUSH 02/24/24 23:28 10 ml PRN PRN Administration Flush Sodium Chloride 10 ml 02/24/23 23:29 02/26/23 21:21 Sodium Chloride 0.9 % 10 Ml Vial.Pf INJECTION 02/24/24 23:28 10 ml PRN PRN Administration Dilution Tamsulosin HCl 0.4 mg 02/25/23 09:00 Tamsulosin 0.4 Mg Cap.Er.24h PO 02/25/24 08:59 DAILY ARLINE A&P - Gastroenterology Assessment/Plan (1) Melena: Code(s): K92.1 - Melena Status: Acute Plan -H&H remained stable -I would recommend holding Plavix for an additional 7 days -I would recommend holding Eliquis for an additional 3 days -Recommend continuing PPI 40 mg twice daily until his follow-up with Dr. Donis 04/12 Thank you for this consult, little further to add from a GI standpoint, I will peripherally follow pending discharge. Documented By: Nikolas Villafana MD 02/28/23924 Signed By: <Electronically signed by Nikolas Villafana MD> 02/28/23926 [facility] Work Phone: 1([phone]) 526-117810-22-2023 Progress note Author Nikolas Villafana [facility] February 27, 2023 10:10am Note Date/Time February 27, 2023 1 0:11am [facility] [address] [place] [address] Gastroenterology PN Signed Patient: Maury Issa MR#: [id number] : 1950 Acct:[id number] Age/Sex: 72 / M Adm Date: 3 Loc: Room: [address] [place] [address] Type: ADM IN Attending Dr: Shruti Savage MD Copies to: MD Mason Hansen II, MD Obaydah M Daromar, MD~ Date of Service: 02/27/2023 Exam Physical Exam Vital Signs: Temp Pulse Resp BP Pulse Ox O2 Del Method 97.7 F 54 L 17 131/78 97 Room Air 02/27/23 08:00 02/27/23 08:00 02/27/23 08:00 02/27/23 08:00 02/27/23 08:00 02/27/23 08:00 Objective Allergies and Medications Allergies/Adverse Reactions: Allergies Allergy/AdvReac Type Severity Reaction Status Date / Time isosorbide Allergy Unknown Verified 02/18/23 09:45 Reaction Active Meds: Active Medications Generic Name Dose Route Start Last Admin Trade Name Ludy PRN Reason Stop Dose Admin Acetaminophen 650 mg 02/24/23 23:29 02/25/23 02:31 Acetaminophen 325 Mg Tablet PO 02/24/24 23:28 650 mg Q4H PRN Administration Pain Scale 1 - 5 Albuterol 2.5 mg 02/24/23 23:29 Albuterol Neb 2.5 Mg/3 Ml Vial.Neb INHALATION 02/24/24 23:28 Q2H PRN Shortness Of Breath Benzonatate 200 mg 02/25/23 09:42 Benzonatate 100 Mg Capsule PO 02/25/24 09:41 TID PRN Cough Citalopram Hydrobromide 20 mg 02/25/23 09:00 02/27/23 09:25 Citalopram 20 Mg Tablet PO 02/25/24 08:59 20 mg DAILY ARLINE Administration Dextrose 0 gm 02/24/23 23:29 Dextrose 50% In Water 25 Gm/50 Ml Syringe IV-PUSH 02/24/24 23:28 PRN PRN Hypoglycemia Docusate Sodium 200 mg 02/24/23 23:29 Docusate 100 Mg Capsule PO 02/24/24 23:28 BID PRN Constipation Gabapentin 300 mg 02/25/23 22:00 02/26/23 21:21 Gabapentin 300 Mg Capsule PO 02/25/24 21:59 300 mg QHS ARLINE Administration Glucose 0 gm 02/24/23 23:29 Dextrose 40% Gel 15 Gm Tube PO 02/24/24 23:28 PRN PRN Hypoglycemia Hydralazine HCl 10 mg 02/24/23 23:29 Hydralazine 20 Mg/Ml Vial IV-PUSH 02/24/24 23:28 Q4H PRN if SBP > 185 Lactated Ringer's 1,000 mls @ 75 mls/hr 02/25/23 15:45 02/27/23 02:02 Lactated Ringers IV 02/25/24 15:44 75 mls/hr .[id number] ARLINE Administration Insulin Aspart 0 units 02/25/23 00:00 02/27/23 06:42 Insulin Aspart 300 Units/3 Ml Insuln.Pen SUBCUT 02/25/24 00:00 Not Given Q6HR ARLINE Protocol Insulin Glargine 20 units 02/25/23 09:00 02/27/23 09:26 Insulin Glargine 300 Units/3 Ml Insuln.Pen SUBCUT 02/25/24 08:59 20 units DAILY ARLINE Administration Pantoprazole Sodium 40 mg 02/25/23 09:00 02/27/23 09:25 Pantoprazole 40 Mg Vial IV-PUSH 02/25/24 08:59 40 mg BID ARLINE Administration Prochlorperazine Edisylate 5 mg 02/24/23 23:29 Prochlorperazine Edisylate 10 Mg/2 Ml Vial IV-PUSH 02/24/24 23:28 Q4H PRN Nausea And Vomiting Ranolazine 500 mg 02/25/23 09:00 02/27/23 09:25 Ranolazine 500 Mg Tab.Er.12h PO 02/25/24 08:59 500 mg BID ARLINE Administration Sodium Chloride 10 ml 02/24/23 23:29 02/27/23 09:26 Sodium Chloride 0.9 % 10 Ml Syringe IV-PUSH 02/24/24 23:28 10 ml PRN PRN Administration Flush Sodium Chloride 10 ml 02/24/23 23:29 02/26/23 21:21 Sodium Chloride 0.9 % 10 Ml Vial.Pf INJECTION 02/24/24 23:28 10 ml PRN PRN Administration Dilution Tamsulosin HCl 0.4 mg 02/25/23 09:00 Tamsulosin 0.4 Mg Cap.Er.24h PO 02/25/24 08:59 DAILY ARLINE A&P - Gastroenterology Assessment/Plan (1) Melena: Code(s): K92.1 - Melena Status: Acute Plan H&H is remained relatively stable. -Continue high-dose PPI therapy -Advance diet as tolerated -Continue to hold Eliquis and clopidogrel Thank you for this consult, we will continue to follow. Documented By: Nikolas Villafana MD 02/27/23 101 Signed By: <Electronically signed by Nikolas Vilalfana MD> 02/27/23 1010 [facility] Work Phone: [phone]) 533-370110-22-2023 Progress note Author Shruti Savage [facility] February 27, 2023 9:09am Note Date/Time February 27, 2023 9 :07am [facility] [address] [place] [address] Hospitalist Progress Note Signed with Addolga Patient: Maury Issa MR#: [id number] : 1950 Acct:[id number] Age/Sex: 72 / M Adm Date: 3 Loc: 3T Room: [address] [place] [address] Type: ADM IN Attending Dr: Shruti Savage MD Copies to: ~ ADDENDUM1 Add to my assessment NICHOLAS on CKD -Cr uptrended. Patient declined IVF during hospital course, encouraged and explained the reasoning and currently IVF running. -Continue to monitor kidney function Addendum Documented By: Shruti Savage MD 02/27/23908 Addendum Signed By: <Electronically signed by Shruti Savage MD> 02/27/23908 Date of Service: 02/27/2023 Subjective Subjective Narrative: Patient was seen and evaluated at bedside this morning. Remained afebrile and hemodynamically stable overnight, slightly bradycardic but asymptomatic. Deniesany nausea, vomiting, he is tolerating clear liquids. He did have bowel movement which was still dark according to him. Denies any chest pain or shortness of breath. Getting IV hydration. H/H relatively stable. Awaiting todayH/H. Exam Physical Exam Vital Signs: Temp Pulse Resp BP Pulse Ox O2 Del Method 97.7 F 54 L 17 131/78 97 Room Air 02/27/23 08:00 02/27/23 08:00 02/27/23 08:00 02/27/23 08:00 02/27/23 08:00 02/27/23 08:00 Narrative: Const General: cooperative HEENT Normal oropharyngeal mucosa without any ulcers or exudates Eyes: Conjunctiva pale Pulmonary Auscultation: clear to auscultation , no crackles, no wheezes Cardiovascular Rate: Slightly bradycardic Rhythm: regular rhythm Heart Sounds: S1 normal, S2 normal and no murmurs GI Inspection: non-distended Palpation: soft, not firm and nontender. No rigidity or rebound. Deferred Neuro General: alert, awake and oriented x3. No obvious new focal deficit Musculoskeletal: normal range of motion Extrem General: no cyanosis, no pedal edema Psych Appearance: appropriate affect. Grossly normal Objective Lab Results 02/26/23 20:12 02/26/23 08:09 Meds Allergies and Active Meds Allergies isosorbide Allergy (Verified 02/18/23 09:45) Unknown Reaction Active Meds: Active Medications Generic Name Dose Route Start Last Admin Trade Name Freq PRN Reason Stop Dose Admin Acetaminophen 650 mg 02/24/23 23:29 02/25/23 02:31 Acetaminophen 325 Mg Tablet PO 02/24/24 23:28 650 mg Q4H PRN Administration Pain Scale 1 - 5 Albuterol 2.5 mg 02/24/23 23:29 Albuterol Neb 2.5 Mg/3 Ml Vial.Neb INHALATION 02/24/24 23:28 Q2H PRN Shortness Of Breath Benzonatate 200 mg 02/25/23 09:42 Benzonatate 100 Mg Capsule PO 02/25/24 09:41 TID PRN Cough Citalopram Hydrobromide 20 mg 02/25/23 09:00 02/26/23 10:07 Citalopram 20 Mg Tablet PO 02/25/24 08:59 20 mg DAILY ARLINE Administration Dextrose 0 gm 02/24/23 23:29 Dextrose 50% In Water 25 Gm/50 Ml Syringe IV-PUSH 02/24/24 23:28 PRN PRN Hypoglycemia Docusate Sodium 200 mg 02/24/23 23:29 Docusate 100 Mg Capsule PO 02/24/24 23:28 BID PRN Constipation Gabapentin 300 mg 02/25/23 22:00 02/26/23 21:21 Gabapentin 300 Mg Capsule PO 02/25/24 21:59 300 mg QHS ARLINE Administration Glucose 0 gm 02/24/23 23:29 Dextrose 40% Gel 15 Gm Tube PO 02/24/24 23:28 PRN PRN Hypoglycemia Hydralazine HCl 10 mg 02/24/23 23:29 Hydralazine 20 Mg/Ml Vial IV-PUSH 02/24/24 23:28 Q4H PRN if SBP > 185 Lactated Ringer's 1,000 mls @ 75 mls/hr 02/25/23 15:45 02/27/23 02:02 Lactated Ringers IV 02/25/24 15:44 75 mls/hr .[id number] ARLINE Administration Insulin Aspart 0 units 02/25/23 00:00 02/27/23 06:42 Insulin Aspart 300 Units/3 Ml Insuln.Pen SUBCUT 02/25/24 00:00 Not Given Q6HR REPLACED BY [facility] Protocol Insulin Glargine 20 units 02/25/23 09:00 02/26/23 10:07 Insulin Glargine 300 Units/3 Ml Insuln.Pen SUBCUT 02/25/24 08:59 20 units DAILY ARLINE Administration Pantoprazole Sodium 40 mg 02/25/23 09:00 02/26/23 21:21 Pantoprazole 40 Mg Vial IV-PUSH 02/25/24 08:59 40 mg BID ARLINE Administration Prochlorperazine Edisylate 5 mg 02/24/23 23:29 Prochlorperazine Edisylate 10 Mg/2 Ml Vial IV-PUSH 02/24/24 23:28 Q4H PRN Nausea And Vomiting Ranolazine 500 mg 02/25/23 09:00 02/26/23 21:21 Ranolazine 500 Mg Tab.Er.12h PO 02/25/24 08:59 500 mg BID ARLINE Administration Sodium Chloride 10 ml 02/24/23 23:29 02/26/23 09:48 Sodium Chloride 0.9 % 10 Ml Syringe IV-PUSH 02/24/24 23:28 10 ml PRN PRN Administration Flush Sodium Chloride 10 ml 02/24/23 23:29 02/26/23 21:21 Sodium Chloride 0.9 % 10 Ml Vial.Pf INJECTION 02/24/24 23:28 10 ml PRN PRN Administration Dilution Tamsulosin HCl 0.4 mg 02/25/23 09:00 Tamsulosin 0.4 Mg Cap.Er.24h PO 02/25/24 08:59 DAILY ARLINE A&P - Hospitalist Assessment/Plan (1) Melena: Plan Acute blood loss anemia requiring multiple blood transfusion Symptomatic anemia Acute GI bleed-recent gastric polypectomy -CAD with stents- holding AP therapy -Paroxysmal Afib on Eliquis- on hold for now- NSR here. Monitor on Telemetry. -Hemodynamically stable so far -Continue IV PPI -Required total 4 units of blood so far. hemoglobin last night around 9.0 from 9.6. Continue to monitor H/H. -Goal to keep hemoglobin above 8.0/ongoing bleeding/hemodynamic instability. -IV hydration as needed -Holding his BP meds to avoid hypotension episodes. he is normotensive so far. -Asymptomatic bradycardia. continue tele. -GI team following Diet: will advance to full liquids DVT ppx: SCDs GI ppx: PPI Code status: Full Disposition: inpatient status Discussed with patient at bedside. All questions answered. Shruti Steinberg MD Internal Medicine Hospitalist Attending Physician Documented By: Shruti Savage MD 02/27/23 09 04 Signed By: <Electronically signed by Shruti Savage MD> 02/27/23 0907 [facility] Work Phone: 1(713) 906-629010-21-2023 Progress note Author Shruti Savage [facility] February 26, 2023 9:25am Note Date/Time February 26, 2023 9 :22am [facility] [address] [place] [address] Hospitalist Progress Note Signed Patient: Maury Issa MR#: [id number] : 1950 Acct:[id number] Age/Sex: 72 / M Adm Date: 3 Loc: Room: [address] [place] [address] Type: ADM IN Attending Dr: Shruti Savage MD Copies to: ~ Date of Service: 02/26/2023 Subjective Subjective Narrative: Patient was seen and evaluated at bedside this morning. Remained afebrile and hemodynamically stable overnight, slightly bradycardic but asymptomatic. Deniesany nausea, vomiting, he is tolerating clear liquids. He did have bowel movement yesterday which was dark according to him. Denies any chest pain or shortness of breath. Declines IV fluids for hydration. Hemoglobin dropped again yesterday and required additional 2 units of blood transfusion. Exam Physical Exam Vital Signs: Temp Pulse Resp BP Pulse Ox O2 Del Method 97.6 F 54 L 16 127/70 99 Room Air 02/26/23 04:00 02/26/23 04:00 02/26/23 04:00 02/26/23 04:00 02/26/23 04:00 02/26/23 04:00 Narrative: Const General: cooperative HEENT Normal oropharyngeal mucosa without any ulcers or exudates Eyes: Conjunctiva pale Pulmonary Auscultation: clear to auscultation , no crackles, no wheezes Cardiovascular Rate: Slightly bradycardic Rhythm: regular rhythm Heart Sounds: S1 normal, S2 normal and no murmurs GI Inspection: non-distended Palpation: soft, not firm and nontender. No rigidity or rebound. Deferred Neuro General: alert, awake and oriented x3. No obvious new focal deficit Musculoskeletal: normal range of motion Extrem General: no cyanosis, no pedal edema Psych Appearance: appropriate affect. Grossly normal Objective Lab Results 02/26/23 08:09 02/25/23 10:15 Meds Allergies and Active Meds Allergies isosorbide Allergy (Verified 02/18/23 09:45) Unknown Reaction Active Meds: Active Medications Generic Name Dose Route Start Last Admin Trade Name Freq PRN Reason Stop Dose Admin Acetaminophen 650 mg 02/24/23 23:29 02/25/23 02:31 Acetaminophen 325 Mg Tablet PO 02/24/24 23:28 650 mg Q4H PRN Administration Pain Scale 1 - 5 Albuterol 2.5 mg 02/24/23 23:29 Albuterol Neb 2.5 Mg/3 Ml Vial.Neb INHALATION 02/24/24 23:28 Q2H PRN Shortness Of Breath Benzonatate 200 mg 02/25/23 09:42 Benzonatate 100 Mg Capsule PO 02/25/24 09:41 TID PRN Cough Citalopram Hydrobromide 20 mg 02/25/23 09:00 02/25/23 09:55 Citalopram 20 Mg Tablet PO 02/25/24 08:59 20 mg DAILY ARLINE Administration Dextrose 0 gm 02/24/23 23:29 Dextrose 50% In Water 25 Gm/50 Ml Syringe IV-PUSH 02/24/24 23:28 PRN PRN Hypoglycemia Docusate Sodium 200 mg 02/24/23 23:29 Docusate 100 Mg Capsule PO 02/24/24 23:28 BID PRN Constipation Gabapentin 300 mg 02/25/23 22:00 02/25/23 21:06 Gabapentin 300 Mg Capsule PO 02/25/24 21:59 300 mg QHS ARLINE Administration Glucose 0 gm 02/24/23 23:29 Dextrose 40% Gel 15 Gm Tube PO 02/24/24 23:28 PRN PRN Hypoglycemia Hydralazine HCl 10 mg 02/24/23 23:29 Hydralazine 20 Mg/Ml Vial IV-PUSH 02/24/24 23:28 Q4H PRN if SBP > 185 Sodium Chloride 500 mls @ 20 mls/hr 02/25/23 15:44 0.9 % Sodium Chloride IV 02/26/23 15:43 PROTOCOL PRN BLOOD TRANSFUSION Lactated Ringer's 1,000 mls @ 75 mls/hr 02/25/23 15:45 02/26/23 01:28 Lactated Ringers IV 02/25/24 15:44 Not Given .[id number] REPLACED BY [facility] Insulin Aspart 0 units 02/25/23 00:00 02/26/23 06:14 Insulin Aspart 300 Units/3 Ml Insuln.Pen SUBCUT 02/25/24 00:00 Not Given Q6HR REPLACED BY [facility] Protocol Insulin Glargine 20 units 02/25/23 09:00 02/25/23 10:39 Insulin Glargine 300 Units/3 Ml Insuln.Pen SUBCUT 02/25/24 08:59 20 units DAILY ARLINE Administration Pantoprazole Sodium 40 mg 02/25/23 09:00 02/25/23 20:28 Pantoprazole 40 Mg Vial IV-PUSH 02/25/24 08:59 40 mg BID ARLINE Administration Prochlorperazine Edisylate 5 mg 02/24/23 23:29 Prochlorperazine Edisylate 10 Mg/2 Ml Vial IV-PUSH 02/24/24 23:28 Q4H PRN Nausea And Vomiting Ranolazine 500 mg 02/25/23 09:00 02/25/23 21:07 Ranolazine 500 Mg Tab.Er.12h PO 02/25/24 08:59 500 mg BID ARLINE Administration Sodium Chloride 10 ml 02/24/23 23:29 02/25/23 02:31 Sodium Chloride 0.9 % 10 Ml Syringe IV-PUSH 02/24/24 23:28 10 ml PRN PRN Administration Flush Sodium Chloride 10 ml 02/24/23 23:29 02/25/23 20:28 Sodium Chloride 0.9 % 10 Ml Vial.Pf INJECTION 02/24/24 23:28 10 ml PRN PRN Administration Dilution Tamsulosin HCl 0.4 mg 02/25/23 09:00 Tamsulosin 0.4 Mg Cap.Er.24h PO 02/25/24 08:59 DAILY ARLINE A&P - Hospitalist Assessment/Plan (1) Melena: Plan Acute blood loss anemia requiring multiple blood transfusion Symptomatic anemia Acute GI bleed-recent gastric polypectomy -CAD with stents- holding AP therapy -Paroxysmal Afib on Eliquis- on hold for now- NSR here. Monitor on Telemetry. -Hemodynamically stable so far -Continue IV PPI -Hemoglobin drop yesterday again and required additional 2 units of blood. Hemoglobin last night 9.3. Today 9.7 seems stable. will check q12h to ensure stability. -Goal to keep hemoglobin above 8.0/ongoing bleeding/hemodynamic instability. -IV hydration as needed -Holding his BP meds to avoid hypotension episodes. he is normotensive so far. Diet: Clear liquids. advancing diet as per GI DVT ppx: SCDs GI ppx: PPI Code status: Full Disposition: inpatient status Discussed with patient at bedside. All questions answered. Shruti Steinberg MD Internal Medicine Hospitalist Attending Physician Documented By: Shruti Savage MD 02/26/2301 25 Signed By: <Electronically signed by Shruti Savage MD> 02/26/23924 [facility] Work Phone: [phone]) 492-553610-20-2023 Progress note Author Shruti Savage [facility] February 25, 2023 11:29am Note Date/Time February 25, 2023 1 1:11am [facility] [address] [place] [address] Hospitalist Progress Note Signed Patient: Maury Issa MR#: [id number] : 1950 Acct:[id number] Age/Sex: 72 / M Adm Date: 3 Loc: Room: [address] [place] [address] Type: ADM IN Attending Dr: Shruti Savage MD Copies to: ~ Date of Service: 02/25/2023 Subjective Subjective Narrative: Maury Issa is a 72 y.o. male with a PMH of A Fib, diabetes, hypercholesterolemia, GERD, [place], HTN, and sleep apnea on CPAP who initially presented to an outside emergency room for concerns regarding dizziness. He was seen and examined at bedside today. Patient states that he is feeling ok. He complains of occasional dizziness and lightheadedness. He also mentions intermittent chest pain that lasts for approximately 1-2 minutes and then subsides. He states this has been going on for approximately 2 days. He feels this pain at rest. It is not worsened with activity. He has a history of GERD and has been taking a PPI. Patient continues to have black stools. Denies dysuria or hematuria. He had a colonoscopy done on 02/18/23 with a polypectomy. He denies any nausea or vomiting. Denies numbness or tingling. States that he has not had anything to eat since 5 pm last night and is feeling hungry. Exam Physical Exam Vital Signs: Temp Pulse Resp BP Pulse Ox O2 Del Method 97.8 F 62 18 114/69 99 Room Air 02/25/23 07:20 02/25/23 07:20 02/25/23 07:20 02/25/23 07:20 02/25/23 07:20 02/25/23 08:00 Narrative: General: Awake, alert, and oriented. Well nourished HEENT: Pale conjunctiva and normal buccal mucosa Neck: Supple, no tenderness Endocrine: No Thyromegaly Vascular: No JVD or carotid bruit Lymphatic: No cervical lymphadenopathy Heart: Regular rate and rhythm. S1 and S2 Lungs: Clear to auscultation bilaterally. No wheezes, rhonchi, or rales Abdomen: Soft,nontender, nondistended. Bowel sounds present Extremities: Motion grossly intact in all four extremities. No tenderness Neuro: Alert and oriented x 3. Normal speech, comprehension and attention Objective Lab Results 02/24/23 23:35 02/25/23 10:15 Meds Allergies and Active Meds Allergies isosorbide Allergy (Verified 02/18/23 09:45) Unknown Reaction Active Meds: Active Medications Generic Name Dose Route Start Last Admin Trade Name Freq PRN Reason Stop Dose Admin Acetaminophen 650 mg 02/24/23 23:29 02/25/23 02:31 Acetaminophen 325 Mg Tablet PO 02/24/24 23:28 650 mg Q4H PRN Administration Pain Scale 1 - 5 Albuterol 2.5 mg 02/24/23 23:29 Albuterol Neb 2.5 Mg/3 Ml Vial.Neb INHALATION 02/24/24 23:28 Q2H PRN Shortness Of Breath Benzonatate 200 mg 02/25/23 09:42 Benzonatate 100 Mg Capsule PO 02/25/24 09:41 TID PRN Cough Citalopram Hydrobromide 20 mg 02/25/23 09:00 02/25/23 09:55 Citalopram 20 Mg Tablet PO 02/25/24 08:59 20 mg DAILY ARLINE Administration Dextrose 0 gm 02/24/23 23:29 Dextrose 50% In Water 25 Gm/50 Ml Syringe IV-PUSH 02/24/24 23:28 PRN PRN Hypoglycemia Docusate Sodium 200 mg 02/24/23 23:29 Docusate 100 Mg Capsule PO 02/24/24 23:28 BID PRN Constipation Gabapentin 300 mg 02/25/23 22:00 Gabapentin 300 Mg Capsule PO 02/25/24 21:59 QHS ARLINE Glucose 0 gm 02/24/23 23:29 Dextrose 40% Gel 15 Gm Tube PO 02/24/24 23:28 PRN PRN Hypoglycemia Hydralazine HCl 10 mg 02/24/23 23:29 Hydralazine 20 Mg/Ml Vial IV-PUSH 02/24/24 23:28 Q4H PRN if SBP > 185 Sodium Chloride 1,000 mls @ 100 mls/hr 02/24/23 23:30 02/25/23 10:40 0.9% Sodium Chloride 1,000 Ml IV 02/24/24 23:29 Not Given .Q10H ARLINE Sodium Chloride 1,000 mls @ 75 mls/hr 02/25/23 00:15 02/25/23 10:40 0.9% Sodium Chloride 1,000 Ml IV 02/25/24 00:14 75 mls/hr .[id number] ARLINE Administration Sodium Chloride 500 mls @ 20 mls/hr 02/25/23 00:02 0.9 % Sodium Chloride IV 02/26/23 00:01 PROTOCOL PRN BLOOD TRANSFUSION Insulin Aspart 0 units 02/25/23 00:00 02/25/23 06:15 Insulin Aspart 300 Units/3 Ml Insuln.Pen SUBCUT 02/25/24 00:00 Not Given Q6HR REPLACED BY [facility] Protocol Insulin Glargine 20 units 02/25/23 09:00 02/25/23 10:39 Insulin Glargine 300 Units/3 Ml Insuln.Pen SUBCUT 02/25/24 08:59 20 units DAILY ARLINE Administration Pantoprazole Sodium 40 mg 02/25/23 09:00 02/25/23 09:54 Pantoprazole 40 Mg Vial IV-PUSH 02/25/24 08:59 40 mg BID ARLINE Administration Prochlorperazine Edisylate 5 mg 02/24/23 23:29 Prochlorperazine Edisylate 10 Mg/2 Ml Vial IV-PUSH 02/24/24 23:28 Q4H PRN Nausea And Vomiting Ranolazine 500 mg 02/25/23 09:00 02/25/23 09:54 Ranolazine 500 Mg Tab.Er.12h PO 02/25/24 08:59 500 mg BID ARLINE Administration Sodium Chloride 10 ml 02/24/23 23:29 02/25/23 02:31 Sodium Chloride 0.9 % 10 Ml Syringe IV-PUSH 02/24/24 23:28 10 ml PRN PRN Administration Flush Sodium Chloride 10 ml 02/24/23 23:29 02/25/23 09:54 Sodium Chloride 0.9 % 10 Ml Vial.Pf INJECTION 02/24/24 23:28 10 ml PRN PRN Administration Dilution Tamsulosin HCl 0.4 mg 02/25/23 09:00 Tamsulosin 0.4 Mg Cap.Er.24h PO 02/25/24 08:59 DAILY ARLINE A&P - Hospitalist Assessment/Plan (1) Melena: Plan Melena - Colonoscopy with polypectomy 02/18/23, likely bleeding at the site of polyp removal. Was not on high-dose PPIs. Had quick resumption of antiplatelet therapyand NOAC given the size of his polypectomy - Hold Eliquis, Clopidogrel, and ASA therapy due to bleed - Continue high-dose IV PPIs 40 mg twice daily, received an 80 mg bolus at outside hospital - Clear liquid diet Attending Physician Attestation: I personally reviewed the history, performed the toth elements of the exam, formulated the plan of care and confirmed the written note. I agree with the findings and plan as documented in this note and have edited it if needed to reflect my findings and plan. Acute blood loss anemia Symptomatic anemia Acute GI bleed CAD with stents- holding AP therapy Paroxysmal Afib on Eliquis - NSR here. Monitor on Telemetry. Patient was transferred from [facility] to our facility due to acute GI bleed. He recently had gastric polypectomy. GI was consulted. Input appreciated. Recommended to hold AC/AP. Continue IV PPI. Hemoglobin dropped on arrival here to 7.0 from 8.0 at [place]. Patient was transfused 2 units of blood. He was slightly hypotensive this morning which improved after transfusion. Advance to clear liquids today. GI following. Continue to monitor H&H. Goal to keep hemoglobin above 8.0/ongoing bleeding/hemodynamic instability. Shruti Steinberg MD Documented By: Inocencio Melendez MD, RES 02/25/23 10 54 Signed By: <Electronically signed by RES Inocencio Melendez> 02/25/23 1111 <Electronically signed by Shruti Savage MD> 02/25/23 1124 [facility] Work Phone: [phone]) 459-774410-20-2023 Consult note Author Nikolas Villafana [facility] February 25, 2023 8:35am Note Date/Time February 25, 2023 8 :31am [facility] [address] [place] [address] Gastroenterology Consult Note Signed Patient: Maury Issa MR#: [id number] : 1950 Acct:[id number] Age/Sex: 72 / M Adm Date: 3 Loc: Room: [address] [place] [address] Type: ADM IN Attending Dr: Shruti Savage MD Copies to: MD Mason Hansen II, MD Obaydah M Daromar, MD~ HPI Data of Consult Date of Consultation: 02/25/23 Requesting Physician: Shruti Savage MD Consult Narrative History of present illness: Mr. Issa is a 72 year old male who was admitted with GI bleeding after endoscopy. Briefly the patient underwent EGD by Dr. Donis on the 13th of this month, he had several gastric polyps in the antrum. A 15 mm polyp was removed with cold snare and the defect clipped with an EndoClip. The patient was not on any PPI medication according to him after his procedure although I dosee he was prescribed pantoprazole daily. He immediately restarted his Eliquis and clopidogrel and has been having bleeding since. On admission he is hemodynamically stable with a 6 to 7 g drop in his hemoglobin. Additionally he is COVID-positive and being treated with steroids. cc:: CC: Shruti Savage MD Review of Systems Constitutional Constitutional: Denies poor appetite and Denies weight loss Eyes Eyes: Denies change in vision and Denies eye discharge ENT Ears, Nose, Mouth, and Throat: Denies nasal discharge, Denies sore throat and Denies vertigo Cardiovascular Cardiovascular: Denies chest pain and Denies dyspnea on exertion Respiratory Respiratory: Denies chest congestion, Denies cough and Denies dyspnea on exertion Gastrointestinal Gastrointestinal: Reports as per HPI Musculoskeletal Musculoskeletal: Denies arthralgias, Denies muscle weakness and Denies numbness Integumentary/Breasts Skin/Breast: Denies change in pigmentation and Denies rash Neurologic Neurologic: Denies numbness and Denies vertigo Psychiatric Psychiatric: Denies anxiety and Denies depression Hematologic/Lymphatic Hematologic/Lymphatic: Denies easy bruising and Denies lymphadenopathy [facility] Medical History (Updated 02/25/23 @ 08:33 by Nikolas Villafana MD) Afib Diabetes Elevated cholesterol GERD (gastroesophageal reflux disease) Heart attack Hypertension Sleep apnea treated with continuous positive airway pressure (CPAP) Surgical History (Updated 02/25/23 @ 01:46 by Astrid Garcia RN) H/O heart artery stent H/O removal of cyst H/O repair of right rotator cuff History of right knee joint replacement Family History (Updated 02/18/23 @ 09:58 by Krysten Salazar RN) Other No significant family history Social History Smoking Status: Never smoker Substance Use Type: None Social History Comments: Lives in [facility] Medications and Allergies Allergies isosorbide Allergy (Verified 02/18/23 09:45) Unknown Reaction Home Medications gabapentin 300 mg capsule 300 mg PO QHS 02/10/17 [History Confirmed 02/25/23] clopidogrel 75 mg tablet 75 mg PO DAILY 30 days ##30 02/11/17 [Rx Confirmed 02/24/23] apixaban 5 mg tablet (Eliquis) 5 mg PO BID 02/18/23 [History Confirmed 02/24/23] citalopram 20 mg tablet 20 mg PO DAILY 02/18/23 [History Confirmed 02/24/23] empagliflozin 25 mg tablet 12.5 mg PO DAILY 02/18/23 [History Confirmed 02/25/23] insulin glargine 100 unit/mL subcutaneous solution (Lantus U-100 Insulin) 20 unit subcut QAM 02/18/23 [History Confirmed 02/25/23] lisinopril 20 mg tablet 20 mg PO DAILY 02/18/23 [History Confirmed 02/24/23] pantoprazole 40 mg tablet,delayed release 40 mg PO DAILY 02/18/23 [History Confirmed 02/24/23] ranolazine 500 mg tablet,extended release,12 hr 500 mg PO BID 02/18/23 [History Confirmed 02/25/23] semaglutide 0.25 mg or 0.5 mg (2 mg/3 mL) subcutaneous pen injector (Ozempic) 0.5 mg subcut QWEEK 02/18/23 [History Confirmed 02/24/23] tamsulosin 0.4 mg capsule 0.4 mg PO DAILY 02/18/23 [History Confirmed 02/25/23] albuterol sulfate 2.5 mg/3 mL (0.083 %) solution for nebulization 2.5 mg inhalation BID 02/24/23 [History Confirmed 02/24/23] ognpji-swwvafuy-saokquc 40,000-126,000-168,000 unit capsule, delay rel (Zenpep) 2 cap PO TIDWMEAL 02/24/23 [History Confirmed 02/24/23] prednisone 20 mg tablet 20 mg PO DAILY 02/24/23 [History Confirmed 02/24/23] pyrilamine 7.5 mg-dextromethorphan 7.5 mg/5 mL oral liquid ([place] DM) 10 ml PO Q8HR 02/24/23 [History Confirmed 02/24/23] gabapentin 300 mg capsule 300 mg PO DAILY.WITH.SUPPER 02/25/23 [History Confirmed 02/25/23] Exam Physical Exam Vital Signs: Temp Pulse Resp BP Pulse Ox O2 Del Method 97.8 F 62 18 114/69 99 Room Air 02/25/23 07:20 02/25/23 07:20 02/25/23 07:20 02/25/23 07:20 02/25/23 07:20 02/25/23 04:00 Const General: no acute distress and well developed HEENT Head: normocephalic and atraumatic Mouth: moist mucous membranes Eyes Sclera: sclerae normal (no scleral icterus) EOM: EOM intact bilaterally Neck Other: trachea midline Resp Effort & Inspection: normal respiratory effort and able to speak in complete sentences GI Inspection: normal to inspection and non-distended Palpation: soft and nontender Skin General: turgor normal and no jaundice Neuro General: patient alert and patient oriented x3 Psych Appearance: grossly normal Mental Status: mental status grossly normal Results Labs Labs: Laboratory Results - last 24 hr 02/24/23 02/25/23 02/25/23 23:35 00:11 00:11 Corrected WBC 13.6 H Uncorrected WBC Count 13.6 H RBC 2.41 L Hgb 7.0 L Hct 20.4 L MCV 84.8 MCH 29.1 MCHC 34.3 RDW 14.6 Plt Count 148 L MPV 8.6 Neut % (Auto) 85.8 Lymph % (Auto) 9.6 [place] % (Auto) 4.5 Eos % (Auto) 0.0 Baso % (Auto) 0.1 Nucleat RBC Rel Count 0.0 Neut # (Auto) 11.7 H Lymph # (Auto) 1.3 [place] # (Auto) 0.6 Eos # (Auto) 0.0 Baso # (Auto) 0.0 POC Glucose Troponin I High Sens 13.6 Blood Type AB Positive Blood Type Recheck Antibody Screen Negative Crossmatch (AHG) See Detail 02/25/23 02/25/23 02/25/23 00:24 00:42 05:38 Corrected WBC Uncorrected WBC Count RBC Hgb Hct MCV MCH MCHC RDW Plt Count MPV Neut % (Auto) Lymph % (Auto) [place] % (Auto) Eos % (Auto) Baso % (Auto) Nucleat RBC Rel Count Neut # (Auto) Lymph # (Auto) [place] # (Auto) Eos # (Auto) Baso # (Auto) POC Glucose 177 150 Troponin I High Sens Blood Type Blood Type Recheck AB Positive Antibody Screen Crossmatch (AHG) A&P - Gastroenterology Assessment/Plan (1) Melena: Code(s): K92.1 - Melena Status: Acute Plan He likely was bleeding at the site of his gastric polypectomy wearing ulcerated bases formed and he was not on high-dose PPIs unfortunately. Additionally he had a quick resumption of antiplatelet therapy and NOAC given the size of his polypectomy. -Hold Eliquis clopidogrel and ASA therapy -Start high-dose IV PPIs 40 mg twice daily, he received an 80 mg bolus at OSH -Resuscitation per primary team -Okay for clear liquid diet today Thank you for this consult, I will continue to follow. Documented By: Nikolas Villafana MD 02/25/23 0830 Signed By: <Electronically signed by Nikolas Villafana MD> 02/25/23 0835 [facility] Work Phone: 1(448) 174-268710-20-2023 History and physical note Author Rachel Jin [facility] February 24, 2023 11:59pm Note Date/Time February 24, 2023 1 1:55pm [facility] [address] [place] [address] Hospitalist H&P Signed Patient: Maury Issa MR#: [id number] : 1950 Acct:[id number] Age/Sex: 72 / M Adm Date: 3 Loc: Room: [address] [place] [address] Type: ADM IN Attending Dr: Rachel Jin MD Copies to: MD Rachel Rico II, MD~ HPI DATE OF EXAMINATION: 02/24/23 CHIEF COMPLAINT: Melena HISTORY OF PRESENT ILLNESS: 72 years old male on Plavix due to coronary artery disease with intervention in October 2021, on Eliquis due to atrial fibrillation presented to outside emergency room with dizziness. Approximately couple weeks ago due to elevated blood pressure his lisinopril dose was increased to 40 mg and he was taken off Norvasc. During the last couple of days he noted that he is quite dizzy. He monitors his blood pressure couple times a day, his systolic blood pressure was in 80s today and yesterday. He admitted that he had been having some lightheadedness but denied any syncopal episode. He complained of intermittent epigastric/chest discomfort lasting for about 1 minute, pressure-like sensation,without any other associated symptoms. He denied any abdominal pain. He deniedany nausea any vomiting. He notes that he has been having black stools, but no diarrhea for the last couple of days. The last dose of Eliquis earlier this morning. On Tuesday he was diagnosed with COVID-19 viral infection was started on steroid therapy. He has been having some cough but respiratory symptoms already improved. Upon presentation to emergency room his blood pressure was noted to be in 90s, after 1 L of IV fluid blood pressure increased to 121/77, saturating 98% on roomair, with heart rate 66. Chest x-ray without acute findings. EKG normal sinus without acute findings. Troponins were negative. Rectal exam showed dark stools with guaiac positive. Hemoglobin noted to be at 8.1 with creatinine 2.6,last creatinine 2.4 in September 2019 White blood cell count 16.6, hemoglobin 8.1, MCV 88, platelets 178, INR 1.0, sodium 135, potassium 3.6, BUN 93, creatinine 2.6, glucose 173, liver enzymes normal, BNP normal, 10 systems are reviewed and are negative apart as mentioned H&P General -patient is awake alert oriented ?3, does not appear to be in distress, however he appears to be quite pale, he is sitting in the chair, does not appearto be in any distress HEENT -dry oropharyngeal mucosa without any ulcers or exudates Cardiovascular -S1 plus S2, with regular rate, with systolic murmur Pulmonary -clear to auscultation bilaterally Gastrointestinal -abdomen is soft, nondistended, n soft mild tenderness was noted to epigastric area Genitourinary -deferred Musculoskeletal -no back tenderness, no significant joint swelling, full range of motion Neurological -no focal Skin -no significant ulcers, no rash noted Extremities - no edema in bilateral lower extremities noted Psychiatry - appropriate affect Laboratory work up, imaging studies reviewed Previous records in the computer system reviewed [facility] Medical History (Updated 02/18/23 @ 10:20 by Esteban Steward MD) Afib Diabetes Elevated cholesterol GERD (gastroesophageal reflux disease) Heart attack Hypertension Sleep apnea treated with continuous positive airway pressure (CPAP) Surgical History (Updated 02/18/23 @ 09:58 by Krysten Salazar RN) H/O heart artery stent H/O removal of cyst Family History (Updated 02/18/23 @ 09:58 by Krysten Salazar RN) Other No significant family history Social History Smoking Status: Never smoker Substance Use Type: None Social History Comments: Lives in [facility] Medications and Allergies Allergies isosorbide Allergy (Verified 02/18/23 09:45) Unknown Reaction Home Medications gabapentin 300 mg capsule 300 mg PO QHS 02/10/17 [History Confirmed 02/18/23] atorvastatin 40 mg tablet 40 mg PO QPM 30 days ##30 02/11/17 [Rx Confirmed 02/18/23] carvedilol 12.5 mg tablet 12.5 mg PO BID.WITH.MEALS 30 days ##60 02/11/17 [Rx Confirmed 02/18/23] clopidogrel 75 mg tablet 75 mg PO DAILY 30 days ##30 02/11/17 [Rx Confirmed 02/24/23] amlodipine 2.5 mg tablet 2.5 mg PO DAILY 02/18/23 [History Confirmed 02/18/23] apixaban 5 mg tablet (Eliquis) 5 mg PO BID 02/18/23 [History Confirmed 02/24/23] citalopram 20 mg tablet 20 mg PO DAILY 02/18/23 [History Confirmed 02/24/23] empagliflozin 25 mg tablet 12.5 mg PO DAILY 02/18/23 [History Confirmed 02/18/23] insulin glargine 100 unit/mL subcutaneous solution (Lantus U-100 Insulin) 60 unit subcut QAM 02/18/23 [History Confirmed 02/24/23] lisinopril 20 mg tablet 20 mg PO DAILY 02/18/23 [History Confirmed 02/24/23] pantoprazole 40 mg tablet,delayed release 40 mg PO DAILY 02/18/23 [History Confirmed 02/24/23] ranolazine 500 mg tablet,extended release,12 hr 500 mg PO BID 02/18/23 [History Confirmed 02/18/23] semaglutide 0.25 mg or 0.5 mg (2 mg/3 mL) subcutaneous pen injector (Ozempic) 0.5 mg subcut QWEEK 02/18/23 [History Confirmed 02/24/23] tamsulosin 0.4 mg capsule 0.4 mg PO DAILY 02/18/23 [History Confirmed 02/18/23] albuterol sulfate 2.5 mg/3 mL (0.083 %) solution for nebulization 2.5 mg inhalation BID 02/24/23 [History Confirmed 02/24/23] ykrvke-atpknnrd-epryatt 40,000-126,000-168,000 unit capsule, delay rel (Zenpep) 2 cap PO TIDWMEAL 02/24/23 [History Confirmed 02/24/23] prednisone 20 mg tablet 20 mg PO DAILY 02/24/23 [History Confirmed 02/24/23] pyrilamine 7.5 mg-dextromethorphan 7.5 mg/5 mL oral liquid ([place] DM) 10 ml PO Q8HR 02/24/23 [History Confirmed 02/24/23] Assessment & Plan Assessment/Plan (1) Hypertension: Plan 1. Suspected acute blood loss anemia due to upper GI bleeding probably from recently removed antral polyp, currently on Plavix and Eliquis with last dose today morning, recently started on prednisone for COVID viral infection associated with hypotension/dizziness Status post recent EGD and colonoscopy on February 18 showing multiple antral polyps and normal colonoscopy. Antral polyp was removed with some bleeding noted from the site which was controlled with Endo Clip placement also tattooed Hypotension, probably from upper GI bleeding and acute blood loss anemia, Blood pressure improved with IV fluid hydration For now recheck H&H, start IV PPI, consult GI Transfuse if needed, serial H&H Hold Plavix and Eliquis Does not take any nonsteroidals Hold blood pressure medications 2. Coronary artery disease status post cardiac intervention 10/2021 at We will check EKG, check troponin For now hold Plavix His chest pain sounds more like GI related 3. Paroxysmal atrial fibrillation, on Eliquis, for now we will hold Check EKG 4. Kidney dysfunction with creatinine 2.6, last creatinine 2.4 in September 2022, probably patient does have underlying chronic kidney disease with worsening of kidney function due to above Significantly elevated BUN, probably from upper GI bleeding Start gentle hydration, follow strict input and output, recheck in a.m. avoid any nephrotoxic medication Check bladder scan 5. Diabetes mellitus type 2, add sliding scale, I will decrease the dose of Lantus due to being n.p.o. 6. COVID-19 viral infection -respiratory symptoms getting better, recently started on prednisone, which I will hold, patient does not require any oxygen nor he complains of respiratory symptoms, no wheezing noted 7. DVT prophylaxis SCDs IP vs OBS Justification Based on differential dx, clinical care plan, and risk of adverse events, if untreated, in my clinical judgement this patient requires an acute care setting as: INPATIENT because of an expectation of an over 2 midnight stay. Estimated length of stay (# of days): 3 Documented By: Rachel Jin MD 02/24/23 [id number] Signed By: <Electronically signed by Rachel Jin MD> 02/24/23 8315 [facility] Work Phone: [phone] 247-244710-17-2023 Evaluation note* Encounter Date Diagnosis Assessment Notes Treatment Notes Treatment Clinical Notes Feb, COVID-19 (ICD-10 - U07.1) Patient brought 2 at home COVID tests in office. No testing performed in office. Instructed patient to isolate per CDC guidelines for 5 days from symptom onset, mask 5 days following. May return to work/activities outside home after isolation period as long as symptoms are improving and has been afebrile for 24 hours without use of antipyretic. Advised patient that treatment of COVID is with viral supportive care, rx of prednisone and [place], Tylenol as needed for body aches/fever. Increase fluids and rest. Encouraged use of cool mist humidifier. Follow-up with PCP to advise of positive result and further management. Immediate eval for SOB, difficulty, chest pain, fevers that do not break with antipyretic or any other concerning symptoms as reviewed on patient education handout. Patient verbalizes understanding and is agreeable to treatment plan. Patient left in stable condition [facility] Other 10-13-2023 Evaluation note* Encounter Date Diagnosis Assessment Notes Treatment Notes Treatment Clinical Notes Feb, Exocrine pancreatic insufficiency (ICD-10 - K86.81) Feb, Abdominal pain (ICD-10 - R10.9) [employer] [facility] [employer] Other 10-13-2023 Procedure [facility]09-05-2023 Evaluation note* Encounter Date Diagnosis Assessment Notes Treatment Notes Treatment Clinical Notes Jan, Diarrhea (ICD-10 - R19.7) Patient has been having nocturnal watery diarrhea since october. Starts around 3am and is about every hour and a half until around 8/9 am. Jan, Dyspepsia (ICD-10 - K30) Patient has had sulfer smelling burps since about October as well. Jan, LUQ abdominal pain (ICD-10 - R10.12) [facility] Other 06-21-2023 Hospital Discharge instructions Patient Education 10/27/2022 10:39:52 Prostate Cancer Screening Prostate Cancer Screening Prostate cancer screening is testing that is done to check for the presence of prostate cancer in men. The prostate gland is a walnut-sized gland that is located below the bladder and in front of therectum in males. The function of the prostate is to add fluid to semen during ejaculation. Prostatecancer is one of the most common types of cancer in men. Who should have prostate cancer screening? Screening recommendations vary based on age and other risk factors, as well as between the professional organizations who make the recommendations. In general, screening is recommended if: You are age 50 to 70 and have an average risk for prostate cancer. You should talk with your healthcare provider about your need for screening and how often screening should be done. Because most prostate cancers are slow growing and will not cause , screening in this age group is generally reserved for men who have a 10- to 15-year life expectancy. You are younger than age 50, and you have these risk factors: ?Having a father, brother, or uncle who has been diagnosed with prostate cancer. The risk is higherif your family member's cancer occurred at an early age or if you have multiple family members withprostate cancer at an early age. ?Being a male who is Black or is of [place] or sub-Saharan descent. In general, screening is not recommended if: You are younger than age 40. You are between the ages of 40 and 49 and you have no risk factors. You are 70 years of age or older. At this age, the risks that screening can cause are greater than the benefits that it may provide. If you are at high risk for prostate cancer, your health care provider may recommend that you have screenings more often or that you start screening at a younger age. How is screening for prostate cancer done? The recommended prostate cancer screening test is a blood test called the prostate-specific antigen(PSA) test. PSA is a protein that is made in the prostate. As you age, your prostate naturally produces more PSA. Abnormally high PSA levels may be caused by: Prostate cancer. An enlarged prostate that is not caused by cancer (benign prostatic hyperplasia, or BPH). This condition is very common in older men. A prostate gland infection (prostatitis) or urinary tract infection. Certain medicines such as male hormones (like testosterone) or other medicines that raise testosterone levels. A rectal exam may be done as part of prostate cancer screening to help provide information about the size of your prostate gland. When a rectal exam is performed, it should be done after the PSA level is drawn to avoid any effect on the results. Depending on the PSA results, you may need more tests, such as: A physical exam to check the size of your prostate gland, if not done as part of screening. Blood and imaging tests. A procedure to remove tissue samples from your prostate gland for testing (biopsy). This is the only way to know for certain if you have prostate cancer. What are the benefits of prostate cancer screening? Screening can help to identify cancer at an early stage, before symptoms start and when the cancer can be treated more easily. There is a small chance that screening may lower your risk of dying from prostate cancer. The chance is small because prostate cancer is a slow-growing cancer, and most men with prostate cancer from a different cause. What are the risks of prostate cancer screening? The main risk of prostate cancer screening is diagnosing and treating prostate cancer that would never have caused any symptoms or problems. This is called overdiagnosisand overtreatment. PSA screening cannot tell you if your PSA is high due to cancer or a different cause. A prostate biopsy is the only procedure to diagnose prostate cancer. Even the results of a biopsy may not tell you if your cancer needs to be treated. Slow-growing prostate cancer may not need any treatment other than monitoring, so diagnosing and treating it may cause unnecessary stress or other side effects. Questions to ask your health care provider When should I start prostate cancer screening? What is my risk for prostate cancer? How often do I need screening? What type of screening tests do I need? How do I get my test results? What do my results mean? Do I need treatment? Where to find more information The [employer]: www.cancer.org [employer]: www.auanet.org Contact a health care provider if: You have difficulty urinating. You have pain when you urinate or ejaculate. You have blood in your urine or semen. You have pain in your back or in the area of your prostate. Summary Prostate cancer is a common type of cancer in men. The prostate gland is located below the bladder and in front of the rectum. This gland adds fluid to semen during ejaculation. Prostate cancer screening may identify cancer at an early stage, when the cancer can be treated more easily and is less likely to have spread to other areas of the body. The prostate-specific antigen (PSA) test is the recommended screening test for prostate cancer, butit has associated risks. Discuss the risks and benefits of prostate cancer screening with your health care provider. If you are age 70 or older, the risks that screening can cause are greater than the benefits that it may provide. This information is not intended to replace advice given to you by your health care provider. Make sure you discuss any questions you have with your health care provider. Document Revised: 10/19/2021 Document Reviewed: 10/19/2021 [email or web address] Patient Education 2022 [employer]. Follow Up Care 08/18/2021 10:28:01 With:Ignacio KNOTT, Francisca Jimenez, URL, URO Address: [address] [place], [place] [address] [address] [phone] When: Unknown Comments:PRN [facility] 12-13-2022 Evaluation note* Encounter Date Diagnosis Assessment Notes Treatment Notes Treatment Clinical Notes Apr, Atypical chest pain (ICD-10 - R07.89) PT TO CALL AND SCHEDULE EGD W/JEAN-BAPTISTE AND COLONOSCOPY AFTER CARDIAC CLEARANCE. Apr, GERD (gastroesophageal reflux disease) (ICD-10 - K21.9) Apr, History of colon polyps (ICD-10 - Z86.010) Apr, Nausea (ICD-10 - R11.0) [facility] Other 12-08-2022 Note [id number] 10-21-2021 History general Narrative - Reported* Type Description Date Medical History hypertension Medical History diabetes mallitus Medical History Hypercholesteremia Medical History chronic bronchitis Medical History diverticulosis Medical History cardiac stent October 21, 2021 Surgical History rt shoulder surgery Surgical History rt knee surgery [facility] Other 06-15-2022 History general Narrative - Reported* Type Description Date Medical History hypertension Medical History diabetes mallitus Medical History Hypercholesteremia Medical History chronic bronchitis Medical History diverticulosis Medical History cardiac stent October 21, 2021 Surgical History rt shoulder surgery Surgical History rt knee surgery Surgical History colonoscopy [facility] Other 06-15-2022 History general Narrative - Reported* Type Description Date Medical History hypertension Medical History diabetes mallitus Medical History Hypercholesteremia Medical History chronic bronchitis Medical History diverticulosis Medical History cardiac stent October 21, 2021 Surgical History rt shoulder surgery Surgical History rt knee surgery Surgical History colonoscopy Hospitalization History see above [facility] Other 06-10-2022 Evaluation note* Encounter Date Diagnosis Assessment Notes Treatment Notes Treatment Clinical Notes Oct, Contact with and (suspected) exposure to other viral communicable diseases (ICD-10 - Z20.828) Oct, Seasonal allergic rhinitis, unspecified trigger (ICD-10 - J30.2) Drink plenty fluids, get plenty of rest. Continue your home medications as prescribed. Consider taking Zyrtec daily until your symptoms improve. Also consider taking Mucinex for nasal congestion. Follow-up with your family physician if no improvement in 2 to 3 days. Oct, Other Additional time spent conducting pre-visit phone call, screening for symptoms, instructions on social distancing, application and removal of PPE, and cleaning of examination room, equipment and supplies was preformed. Patient education given for testing methodology and results. Patient care instructions given in writting by [facility] Care At Home document. [facility] Other 05-25-2022 NoteCARDIAC STRESS TEST Requesting Physician: Jayson Garcia Date:09/30/2021 PERFORMING PHYSICIAN: Tomas Rajan M.D. REASON FOR TEST: Chest pain. STRESS TEST TYPE: This test started as a treadmill stress test; however, switched to Lexiscan due to abnormal heart rate response. RESTING EKG: Normal sinus rhythm, sinus tammy. Resting heart rate is 55. Peak heart rate is 96. Resting blood pressure 112/68. Peak blood pressure 132/68. Peak maximal heart rate percentage 63. REASON FOR TERMINATION: End of protocol. ST CHANGES: There were no ST changes that met the diagnostic criteria for ischemia. SYMPTOMS: Patient had chest pain that was substernal in nature and radiated into his right arm that started early into exercise. The chest pain resolved after rest. It did return with Lexiscan injection and resolved shortly thereafter. ARRHYTHMIAS: PACs and PVCs noted. No sustained arrhythmias. FINAL CONCLUSION: 1. This was a submaximal treadmill stress test due to early termination due to chest pain. Patient did not meet peak exercise heart rate goal. 2. There were no definite EKG changes that met the criteria for ischemia. 3. However, this is an abnormal study due to poor heart rate response and severe symptoms. 4. Clinical correlation is recommended. 5. Please refer to Radiology report for nuclear myocardial perfusion imaging report.[id number] [facility] Discharge instructions Patient Education 08/18/2021 10:15:13 Prostate-Specific Antigen Test Prostate-Specific Antigen Test Why am I having this test? The prostate-specific antigen (PSA) test is a screening test for prostate cancer. It can identify early signs of prostate cancer, which may allow for more effective treatment. Your health care provider may recommend that you have a PSA test starting at age 40 or that you have one earlier or later, depending on your risk factors for prostate cancer. You may also have a PSA test: To monitor treatment of prostate cancer. To check whether prostate cancer has returned after treatment. If you have signs of other conditions that can affect PSA levels, such as: ?An enlarged prostate that is not caused by cancer (benign prostatic hyperplasia, BPH). This condition is very common in older men. ?A prostate infection. What is being tested? This test measures the amount of PSA in your blood. PSA is a protein that is made in the prostate. The prostate naturally produces more PSA as you age, but very high levels may be a sign of a medicalcondition. What kind of sample is taken? A blood sample is required for this test. It is usually collected by inserting a needle into a blood vessel or by sticking a finger with a small needle. Blood for this test should be drawn before having an exam of the prostate. How do I prepare for this test? Do not ejaculate starting 24 hours before your test, or as long as told by your health care provider. Tell a health care provider about: Any allergies you have. All medicines you are taking, including vitamins, herbs, eye drops, creams, and lazf-viv-vgepvix medicines. This also includes: ?Medicines to assist with hair growth, such as finasteride. ?Any recent exposure to a medicine called diethylstilbestrol. Any blood disorders you have. Any recent procedures you have had, especially any procedures involving the prostate or rectum. Any medical conditions you have. Any recent urinary tract infections (UTIs) you have had. How are the results reported? Your test results will be reported as a value that indicates how much PSA is in your blood. This will be given as nanograms of PSA per milliliter of blood (ng/mL). Your health care provider will compare your results to normal ranges that were established after testing a large group of people (reference ranges). Reference ranges may vary among labs and hospitals. PSA levels vary from person to person and generally increase with age. Because of this variation, there is no single PSA value that is considered normal for everyone. Instead, PSA reference ranges are used to describe whether your PSA levels are considered low or high (elevated). Common reference ranges are: Low: 0 2.5 ng/mL. Slightly to moderately elevated: 2.6 10.0 ng/mL. Moderately elevated: 10.0 19.9 ng/mL. Significantly elevated: 20 ng/mL or greater. Sometimes, the test results may report that a condition is present when it is not present (false-positive result). What do the results mean? A test result that is higher than 4 ng/mL may mean that you are at an increased risk for prostate cancer. However, a PSA test by itself is not enough to diagnose prostate cancer. High PSA levels may also be caused by the natural aging process, prostate infection, or BPH. PSA screening cannot tell you if your PSA is high due to cancer or a different cause. A prostate biopsy is the only way to diagnose prostate cancer. A risk of having the PSA test is diagnosing and treating prostate cancer that would never have caused any symptoms or problems (overdiagnosis and overtreatment). Talk with your health care provider about what your results mean. Questions to ask your health care provider Ask your health care provider, or the department that is doing the test: When will my results be ready? How will I get my results? What are my treatment options? What other tests do I need? What are my next steps? Summary The prostate-specific antigen (PSA) test is a screening test for prostate cancer. Your health care provider may recommend that you have a PSA test starting at age 40 or that you have one earlier or later, depending on your risk factors for prostate cancer. A test result that is higher than 4 ng/mL may mean that you are at an increased risk for prostate cancer. However, elevated levels can be caused by a number of conditions other than prostate cancer. Talk with your health care provider about what your results mean. This information is not intended to replace advice given to you by your health care provider. Make sure you discuss any questions you have with your health care provider. Document Released: 05/28/2005 Document Revised: 04/07/2018 Document Reviewed: 01/30/2018 [email or web address] Patient Education [employer]. Follow Up Care 07/08/2020 12:08:08 With:Taye Johnson MD, Maury Albarran, URO Address: [facility] [address], [place] [address]- When:08/18/2022 Comments:w/ psa [facility] evaluation + Plan note Future Appointments Appointment Date:08/24/2022 08:00:00 AM Scheduled Provider:Maury Kothari Jr., MD Location:[facility] Appointment Type:URO Office Visit Diagnostic Tests Pending * PSA Total 05/09/[address] [facility] evalbrkrfj note* Diagnosis Onset Date Resolution Status Diarrhea acute [facility] Work Phone: Evaluation note* Diagnosis Onset Date Resolution Status Diarrhea acute Hypertension acute [facility] Work Phone: Evaluation note* Diagnosis Onset Date Resolution Status Viral URI with cough [facility] Work Phone: Evaluation note* Diagnosis RLS (restless legs syndrome)- Primary Restless legs syndrome (RLS) B12 deficiency Benign essential tremor Essential and other specified forms of tremor ABEL (obstructive sleep apnea) Obstructive sleep apnea (adult) (pediatric) Neurogenic pain [facility] Diagnosis Benign essential tremor- Primary Essential and other specified forms of tremor RLS (restless legs syndrome) Restless legs syndrome (RLS) Polyneuropathy Unspecified hereditary and idiopathic peripheral neuropathy ABEL (obstructive sleep apnea) Obstructive sleep apnea (adult) (pediatric) B12 deficiency Neurogenic pain RLS (restless legs syndrome)- Primary Restless legs syndrome (RLS) B12 deficiency Benign essential tremor Essential and other specified forms of tremor ABEL (obstructive sleep apnea) Obstructive sleep apnea (adult) (pediatric) Neurogenic pain Routine general medical examination at health care facility- Primary Routine general medical examination at a health care facility ACP (advance care planning) Other specified counseling Flu vaccine need Type 2 diabetes mellitus with stage 3b chronic kidney disease, with long-term current use of insulin (HCC) (CMS/HCC) [facility] Diagnosis Benign essential tremor- Primary Essential and other specified forms of tremor RLS (restless legs syndrome) Restless legs syndrome (RLS) Polyneuropathy Unspecified hereditary and idiopathic peripheral neuropathy ABEL (obstructive sleep apnea) Obstructive sleep apnea (adult) (pediatric) B12 deficiency Neurogenic pain RLS (restless legs syndrome)- Primary Restless legs syndrome (RLS) B12 deficiency Benign essential tremor Essential and other specified forms of tremor ABEL (obstructive sleep apnea) Obstructive sleep apnea (adult) (pediatric) Neurogenic pain Pain due to onychomycosis of toenails of both feet- Primary Plantar fasciitis Plantar fascial fibromatosis Contracture of right ankle [facility]* Diagnosis Hypertrophic cardiomyopathy (CMS/HCC)- Primary Other primary cardiomyopathies [facility]* Diagnosis Hypertrophic cardiomyopathy (CMS/HCC)- Primary Other primary cardiomyopathies Primary hypertension (CMS/HCC) Unspecified essential hypertension [facility]* Diagnosis Plantar fasciitis- Primary Plantar fascial fibromatosis Contracture of right ankle Diabetes mellitus due to underlying condition with diabetic polyneuropathy, with long-term current use of insulin (CMS/HCC) Onychomycosis Dermatophytosis of nail Toe pain, bilateral documented in this encounter [facility]* Diagnosis Acute bronchitis, unspecified organism- Primary Acute cough documented in this encounter [facility]* Diagnosis Primary hypertension (CMS/HCC)- Primary Unspecified essential hypertension documented in this encounter [facility]* Diagnosis Benign essential tremor- Primary Essential and other specified forms of tremor RLS (restless legs syndrome) Restless legs syndrome (RLS) Polyneuropathy Unspecified hereditary and idiopathic peripheral neuropathy ABEL (obstructive sleep apnea) Obstructive sleep apnea (adult) (pediatric) B12 deficiency Neurogenic pain RLS (restless legs syndrome)- Primary Restless legs syndrome (RLS) B12 deficiency Benign essential tremor Essential and other specified forms of tremor ABEL (obstructive sleep apnea) Obstructive sleep apnea (adult) (pediatric) Neurogenic pain Type 2 diabetes mellitus with diabetic chronic kidney disease (CMS/HCC)- Primary Chronic kidney disease, stage 3b (HCC) (CMS/HCC) Paroxysmal atrial fibrillation (CMS/HCC) Atrial fibrillation Other hypertrophic cardiomyopathy (CMS/HCC) Other hypertrophic cardiomyopathy Other chronic pancreatitis (CMS/HCC) Mixed hyperlipidemia (CMS/HCC) Mixed hyperlipidemia Prostate cancer screening Special screening for malignant neoplasm of prostate Diabetes mellitus due to underlying condition with diabetic polyneuropathy, with long-term current use of insulin (CMS/HCC)- Primary Pain due to onychomycosis of toenails of both feet documented in this encounter [facility]* Diagnosis Benign essential tremor- Primary Essential and other specified forms of tremor RLS (restless legs syndrome) Restless legs syndrome (RLS) Polyneuropathy Unspecified hereditary and idiopathic peripheral neuropathy ABEL (obstructive sleep apnea) Obstructive sleep apnea (adult) (pediatric) B12 deficiency Neurogenic pain RLS (restless legs syndrome)- Primary Restless legs syndrome (RLS) B12 deficiency Benign essential tremor Essential and other specified forms of tremor ABEL (obstructive sleep apnea) Obstructive sleep apnea (adult) (pediatric) Neurogenic pain Diabetes mellitus due to underlying condition with diabetic polyneuropathy, with long-term current use of insulin (CMS/HCC)- Primary Pain due to onychomycosis of toenails of both feet Plantar fasciitis Plantar fascial fibromatosis Contracture of right ankle documented in this encounter [facility] general Narrative - Reported* Type Description Date Medical History hypertension Medical History diabetes mallitus Medical History Hypercholesteremia Medical History chronic bronchitis Medical History diverticulosis Surgical History lt shoulder surgery Surgical History rt knee surgery [facility] Other Hospital course Narrative No data available for this section [facility] Discharge instructions Additional Instructions DISCHARGE INSTRUCTIONS FOR COLONOSCOPY: -Expect a gassy or full feeling after a colonoscopy. Report any NEW abdominal pain or vomiting. -Watch for rectal bleeding if you have a polyp removed. You may have oozing, but notify the doctor if you pass clots. -Avoid aspirin for 2 days IF a polyp is removed. -It is important to keep your appointments for follow up examinations because polyps can grow back. FOR JEAN-BAPTISTE/EGD/ERCP/PEG: -Your throat may feel sore today from the scope that the doctor passed through your throat to visualize your stomach. Take a throat lozenge or suck on ice to ease the discomfort. -Do NOT smoke. -You may notice some streaks of blood in your sputum if the doctor has taken a biopsy. Notify the doctor if you cough up large amounts of blood. -Expect a gassy or full feeling after esophagoscopy. Report any persistent pain or vomiting. -Take it easy today. You need not stay in bed, but avoid strenuous activities such as jogging. FOR SEDATION FOR 24 HOURS: -NO driving -Do NOT operate machinery such as power tools, lawn mowers, snow blowers, sewing machines, etc. -Avoid alcoholic beverages and drugs for allergies, nerves, or sleep. -Do NOT stay alone. Do NOT leave your child unattended. -Do NOT make important personal or business decisions or sign any legal documents. -Eat solid foods and drink liquids in smaller amounts than usual until normal appetite returns. If you should experience an upset stomach, liquids high in sugar content (soda, Fernando-aid, non-acid juices) are recommended. -You can resume normal activities tomorrow. FOLLOW UP Please call the office and make a follow up appointment to see me in 6-8 weeks. -Notify the doctor if you have any problems. -[phone] Phone: Progress note No data available for this section [facility] Summary Purpose Family History No Family History Records Found Relationship Condition Age at Onset Recorded Date/T jonathan Not Specified No pertinent family history Unknown Relationship Condition Age at Onset Recorded Date/T jonathan Not Specified No pertinent family history Unknown father Unknown mother Unknown Advance Directives No Advanced Directives Records FoundDocuments on File Type Date Recorded Patient Counselor Dormitory Expl anation Advance Directives and Living Will Power of Evening Anchor Advance Directive Response Recorded Date/ Time Advance Directives No February 10, 2017 2:15am Discharge Instructions * Instructions* Quique Hernández II, PA-C - 12/30/2018 Decrease your current sliding scale by 5 units insulin. Continue to monitor your blood sugar and if it is trending down decrease your sliding scale by an additional 5 units of insulin. See your doctor this week for a long-term management and adjustment of your hypoglycemic medications * Attachments The following attachments cannot be sent through Care Everywhere. * Hypoglycemia (Mongolian) documented in this encounter Assessments Diagnosis Hypoglycemia- Primary Hypoglycemia, unspecified Chief Complaint and Reason for Visit Chief Complaint LUQ pain, diahrrea d yspepsia Reason for Visit Diarrhea Chief Complaint LUQ pain, diahrrea d yspepsia GI Bleed Reason for Visit Diarrhea Hypertension Melena Chief Complaint Sore throat, cough Reason for Visit Viral URI with cough Additional Source Comments (unrecognized sect ion and content) No Status Records FoundNo Status Records FoundNo Status Records FoundNo Status Records FoundNo Status Records FoundNo Status Records FoundNo Status Records FoundNo Status Records FoundNo Status Records FoundNo Status Records FoundNo Status Records FoundNo Status Records Found INFORMATION SOURCE (unrecogn ized section and content) DATE CREATED AUTHOR 09/26/2018 [facility] DATE CREATED AUTHOR AUTHOR'S ORGANIZ ATION 12/30/2018 [facility] DATE CREATED AUTHOR AUTHOR'S ORGANIZ ATION 10/29/2021 [facility] DATE CREATED AUTHOR AUTHOR'S ORGANIZ ATION 09/15/2022 [facility] DATE CREATED AUTHOR AUTHOR'S ORGANIZ ATION 10/27/2022 [facility] DATE CREATED AUTHOR AUTHOR'S ORGANIZ ATION 10/31/2022 [facility] DATE CREATED AUTHOR AUTHOR'S ORGANIZ ATION 05/09/2023 [facility] DATE CREATED AUTHOR AUTHOR'S ORGANIZ ATION 12/12/2023 [facility] DATE CREATED AUTHOR AUTHOR'S ORGANIZ ATION 01/13/2024 [facility] DATE CREATED AUTHOR AUTHOR'S ORGANIZ ATION 07/13/2024 [facility] DATE CREATED AUTHOR AUTHOR'S ORGANIZ ATION 07/14/2024 [facility] DATE CREATED AUTHOR AUTHOR'S ORGANIZ ATION 07/14/2024 [facility] EPIC Reason for Visit (unrecogniz ed section and content) Reason Comments Hypoglycemia blood sugar dropped to 30 today Reason Comments Orders Reason Comments Tremors Reason Comments Medicare Annual Wellness Visit Subsequen t Hypertension Pt made changes to m etoprolol as directedPt was restarted on lisinopril by 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 OR-- per pt nephrolpogist requested PCP call him-- dr honeycutt [phone] Reason Comments DM Foot Care Dm nail care Reason Comments Diabetes Hypertension Reason Comments Hypotension Reason Comments DM Foot Care Dm Nails Patient Care team informatio n (unrecognized section and content) Team Status: Active Member Role Status Dates Mason Membreno II MD Primary Care Provider Active Team Status: Inactive Member Role Status Dates Mason Membreno II MD Primary Care Provider Active Esteban Steward MD Attending Provider Active Team Status: Inactive Member Role Status Dates Mason Membreno II MD Primary Care Provider Active Rachel Jin MD Admit Provider Active Nikolas Villafana MD Other Provider Active Dwain Peñaloza MD Attending Provider Active Deputy Program Manager Relationship Specialty Start Date End Date Herbert Peters MD PCP - General Family Medicine 02/14/13 Deputy Program Manager Relationship Specialty Start Date End Date Herbert Peters MD PCP - General Family Medicine 02/14/13 Team Status: Inactive Member Role Status Dates Mason Membreno II MD Primary Care Provider Active Start: January 27, 2024 End: January 27, 2024 Lotus Casillas APRN Attending Provider Active Start: January 27, 2024 End: January 27, 2024 Deputy Program Manager Relationship Specialty Start Date End Date Mason Membreno MD [address] [facility] [address] [place] [address] PCP - ACO Reach 5/25/23 Mason Membreno MD [address] [facility] [address] [place] [address] PCP - General Internal Medicine 10/06/22 Deputy Program Manager Relationship Specialty Start Date End Date Mason Membreno MD [address] [place] [address] PCP - ACO Reach 09/30/22 Mason Membreno MD [address] [place] [address] PCP - General Internal Medicine 10/06/22 Deputy Program Manager Relationship Specialty Start Date End Date Mason Membreno MD [address] [place] [address] PCP - ACO Reach 09/30/22 Mason Membreno MD [address] [place] [address] PCP - General Internal Medicine 10/06/22 Deputy Program Manager Relationship Specialty Start Date End Date Mason Membreno MD [address] [place] [address] PCP - ACO Reach 09/30/22 Mason Membreno MD [address] [place] [address] PCP - General Internal Medicine 10/06/22 Deputy Program Manager Relationship Specialty Start Date End Date Mason Membreon MD [address] [place] [address] PCP - ACO Reach 09/30/22 Mason Membreno MD [address] [place] [address] PCP - General Internal Medicine 10/06/22 Deputy Program Manager Relationship Specialty Start Date End Date Mason Membreno MD [address] [place] [address] PCP - ACO Reach 09/30/22 Mason Membreno MD [address] [place] [address] PCP - General Internal Medicine 10/06/22 Deputy Program Manager Relationship Specialty Start Date End Date Mason Membreno MD [address] [place] [address] PCP - ACO Reach 09/30/22 Mason Membreno MD [address] [place] [address] PCP - General Internal Medicine 10/06/22 Deputy Program Manager Relationship Specialty Start Date End Date Mason Membreno MD [address] [place] [address] PCP - ACO Reach 09/30/22 Mason Membreno MD [address] [place] [address] PCP - General Internal Medicine 10/06/22 Deputy Program Manager Relationship Specialty Start Date End Date Mason Membreno MD [address] [place] [address] PCP - ACO Reach 09/30/22 Mason Membreno MD [address] [place] [address] PCP - General Internal Medicine 10/06/22 Deputy Program Manager Relationship Specialty Start Date End Date Mason Membreno MD [address] [place] [address] PCP - ACO Reach 09/30/22 Mason Membreno MD [address] [place] [address] PCP - General Internal Medicine 10/06/22 Deputy Program Manager Relationship Specialty Start Date End Date Mason Membreno MD [address] [place] [address] PCP - ACO Reach 09/30/22 Mason Membreno MD [address] [place] [address] PCP - General Internal Medicine 10/06/22 Deputy Program Manager Relationship Specialty Start Date End Date Mason Membreno MD [address] [place] [address] PCP - ACO Reach 09/30/22 Mason Membreno MD [address] [place] [address] PCP - General Internal Medicine 10/06/22 Deputy Program Manager Relationship Specialty Start Date End Date Mason Membreno MD [address] [place] [address] PCP - ACO Reach 09/30/22 Mason Membreno MD [address] [place] [address] PCP - General Internal Medicine 10/06/22 Deputy Program Manager Relationship Specialty Start Date End Date Mason Membreno MD [address] [place] [address] PCP - ACO Reach 09/30/22 Mason Membreno MD [address] [place] [address] PCP - General Internal Medicine 10/06/22 Deputy Program Manager Relationship Specialty Start Date End Date Mason Membreno MD [address] [place] [address] PCP - ACO Reach 09/30/22 Mason Membreno MD [address] [place] [address] PCP - General Internal Medicine 10/06/22 Deputy Program Manager Relationship Specialty Start Date End Date Mason Membreno MD [address] [place] [address] PCP - ACO Reach 09/30/22 Mason Membreno MD [address] [place] [address] PCP - General Internal Medicine 10/06/22 Source Comments (unrecognize d section and content) In the event this informatio n is protected by the Federal Confidentiality of Alcohol and Drug Abuse Patient Records regulations: The Federal rules restrict any use of the information to criminally investigate or prosecute any alcohol or drug abuse patient.[facility] the event this information is protected by the Federal Confidentiality of Alcohol and Drug Abuse Patient Records regulations: The Federal rules restrict any use of the information to criminally investigate or prosecute any alcohol or drug abuse patient.[facility] Goals (unrecognized section and content) Goals may be documented in a n alternate section FOR RECORDS PERTAINING TO PATIENTS WHO ARE OR HAVE BEEN ENROLLED IN A CHEMICAL DEPENDENCY/SUBSTANCEABUSE PROGRAM, SOME INFORMATION MAY BE OMITTED. This clinical summary was aggregated from multiple sources. Caution should be exercised in using it in the provision of clinical care. This summary normalizes information from multiple sources, and as a consequence, information in this document may materially change the coding, format and clinical context of patient data. In addition, data may be omitted in some cases. CLINICAL DECISIONS SHOULD BE BASED ON THE PRIMARY CLINICAL RECORDS. [facility] [employer] [facility]. provides no warranty or guarantee of the accuracy or completeness of information in this document.
[2024-07-26] MEDS: REGADENOSON 0.4 MG/5 ML SYRINGE IV (09:59)
== END 2024-07-26 07:53 | disposition home or self-care (01) ==
LOC: NM 07:53
PROVIDERS: PCP Internal Medicine; Visit Provider Nurse Practitioner Family
DX: I25.118 Atherosclerotic heart disease of native coronary artery with other forms of angina pectoris (principal)
CPT/HCPCS: 78452; 93017; A9500; J2785

== ENCOUNTER 2024-07-31 07:59 | Outpatient (OUT) | payer MEDICARE, OTHER, SELFPAY ==
--- NOTE | 2024-07-26 11:56 | PM.STRESS ---
Stress Test Stress Test Allergies Allergy/AdvReac Type Severity Reaction Status Date / Time No Known Drug Allergies Allergy Verified 10/10/23 16:18 Requesting physician: BG KOEHLER Procedure: Lexiscan Stress test General Information: Reason for Stress Test: [CP, SOB] Cardiac History and Risk Factors: [H/O CAD, stents, HTN, DM] Resting 12 - Lead Electrocardiogram: Sinus bradycardia Otherwise normal ECG During infusion and recovery: No significant ST T wave changes, no significant arrhythmias Stress Test: Protocol: [Lexiscan] Exercise Capacity: [N/A] Blood Pressure Response: [N/A] Rhythm: [Sinus bradycardia, no arrhythmias] ST - Response: [No significant ST T wave changes] Patient Response: [No symptoms] Interpretation: 1. No ischemic EKG changes seen on Lexiscan stress test 2. Nuclear images to be read, interpreted and reported separately
--- NOTE | 2024-07-31 08:00 | CA_ITS ---
Patient Name: MAURY VILLALPANDO MR#: [id number] : 1950 Exam Date: 07/31/2024 Ordering Doctor: BG KOEHLER CNP ECHOCARDIOGRAM REPORT PROCEDURE: CA ECHO DOPPLER COMPLETE INDICATIONS: Atrial fibrillation, hypertension, diabetes, cardiac stent COMPARISON: None. DESCRIPTION: COMPLETE ECHOCARDIOGRAM Real-time transthoracic echocardiography with 2D, M-mode, spectral and color flow Doppler performed. QUALITY: Technical quality was good. LEFT VENTRICLE: Normal chamber size. Proximal septal hypertrophy (sigmoid septum). Moderate concentric left ventricular hypertrophy. Normal systolic function. LV EF: Normal left ventricular ejection fraction, (65-70%). DIASTOLIC: Diastolic function is indeterminate. ATRIAL SEPTUM: Visually appears intact. LEFT ATRIUM: Normal chamber size. RIGHT ATRIUM: Normal chamber size. RIGHT VENTRICLE: Normal chamber size. Normal right ventricular systolic function. TRICUSPID VALVE: Normal mobility and thickness. No stenosis with trivial regurgitation. Doppler studies reveal mildly (35-45) elevated right sided pressures. RVSP 37 mmHg MITRAL VALVE: Normal mobility and thickness. No evidence of mitral valve stenosis. There is no mitral annular calcification. Mild mitral regurgitation. AORTIC VALVE: Normal trileaflet appearance. Normal leaflet mobility. No evidence of aortic valve stenosis. Mild calcifications of the tip of the leaflets. Mild aortic regurgitation. AORTIC ROOT: Mildly dilated aortic root, measuring 4.1 cm. Ascending aorta is normal in size (3.6 cm). PULMONIC VALVE:Normal thickness and mobility. No stenosis. Trivial regurgitation. PERICARDIUM: No evidence of pericardial effusion. IVC: IVC is normal in size, does not fully collapse. PLEURA: CONCLUSION: 1. Moderate concentric left ventricular hypertrophy with normal systolic function. Estimated LVEF is 65 to 70%. 2. Normal right ventricular size and systolic function. 3. Mild mitral and aortic regurgitation. 4. Mildly elevated right-sided pressures. 5. Mildly dilated aortic root measuring 4.1 cm with normal size ascending aorta. Adult Echocardiography Procedure Report Left Ventricle LVEDD (3.7 - 5.6 cm): 4.15 cm LVESD (2.2 - 4.0 cm): 3.05 cm LVIVS thickness (0.6 - 1.2 cm): 1.70 cm LVPW thickness (0.5 - 1.0 cm): 1.15 cm e': 0.07 m/s E - e': 10.79 LVOT Max Gradient: 7.78 mm[Hg] LVOT Area (cm2): 1.39 m/s Peak Velocity (LVOT): 1.39 m/s Mean Velocity (LVOT): 1.01 m/s LVOT Diameter 2.64 cm Left Atrium LA Volume Index (2D A2C): 34.50 ml/m2 Left Atrium Systolic Dimension: 4.10 cm Mitral Valve MV E to A Ratio: 0.90 Mitral Valve A-Wave Peak Velocity: 0.78 m/s Mitral Valve E-Wave Peak Velocity: 0.71 m/s Right Ventricle Aorta AO Root Diam: 4.12 cm Ascending Ao Diam: 3.55 cm Aortic Valve AoV Area (Peak Darnell): 6.17 cm2, 6.17 cm2 AoV Area (VTI): 6.65 cm2, 6.65 cm2 Deceleration [place]: 1.76 m/s2 Pressure Half-Time: 776.36 ms Peak Velocity(Antegrade Flow): 1.24 m/s Peak Gradient(Antegrade Flow): 6.14 mm[Hg] Mean Velocity(Antegrade Flow): 0.92 m/s Mean Gradient(Antegrade Flow): 3.70 mm[Hg] Velocity Time Integral: 33.08 cm Tricuspid Valve Peak Velocity (Regurgitant Flow): 2.71 m/s Pulmonic Valve Mean Gradient: 2.02 mm[Hg] Mean Velocity: 0.66 m/s Peak Velocity: 0.99 m/s, 0.94 m/s Peak Gradient: 3.51 mm[Hg], 3.94 mm[Hg] Right Atrium Right Atrium Systolic Pressure: 40.52 ml, 40.52 ml Dictated by: Severo Johnson M.D. on 07/31/2024 at 13:06 Approved by: Severo Johnson M.D. on 07/31/2024 at 13:11
--- OUTSIDE RECORDS SUMMARY | 2024-07-31 08:11 | XMS_ITS | CCD ---
Author Organization [facility] CliniSynv Care Team Providers Care Antique Repairer Name Role Phone Aashish Gaffney Attending Unavailable Mason Membreno Primary Care UnavailAashish Escudero Attending Unavailable Mason Membreno Primary Care UnavailMason Yao Primary Care Provider MASON MEMBRENO Primary Care Unavailable MASON MEMBRENO Primary Care Physician [phone] MOHINI, MOHAMAD Admitting Unavailable DES RAJAND Attending Unavailable MASON MEMBRENO Primary Care Unavailable MASON MEMBRENO Referring Unavailable CALVINHOTHMOUNA, MOHAMAD Admitting Unavailable MOHINI MOHTERRELLD Attending Unavailable MASON MEMBRENO Primary Care Unavailable MASON MEMBRENO Referring Unavailable Kimberly Talbot Unavailable Esteban Steward Unavailable GERRY WOODALL Attending Unavailable YEARKIM GERRY Admitting Unavailable NATASHA, DR MARX Primary Care Unavailable GERRY WOODALL Consulting Unavailable KYRIE CARNEY Attending Unavailable KYRIE CARNEY Admitting Unavailable NATASHA, DR MARX Primary Care Unavailable KYRIE CARNEY Consulting Unavailable GHULAM LATIF Consulting Unavailable JOCELYNE, IZA Admitting Unavailable MEMBRENODR MARX Primary Care Unavailable JOCELYNE, IZA Consulting Unavailable JOCELYNE, IZA Attending Unavailable JOCELYNE, IZA Attending Unavailable JOCELYNE, IZA Admitting Unavailable NATASHA, DR MARX Primary Care Unavailable ZIEBER, DR ALTHEA Gary Consulting Unavailable JOCELYNE, IZA Consulting Unavailable JOCELYNE, IZA Attending Unavailable NATASHA, DR MARX Primary Care Unavailable JOCELYNE, IZA Admitting Unavailable NADERER, DR SELAM Bourne Attending Unavailable NADERECookie, DR SELAM Bourne Admitting Unavailable SHARAN, DR MIKY Maguire Consulting Unavailabl e NATASHA, DR MARX Primary Care Unavailable LOWELL, DR MAYITO Ho Consulting Unavailable NADERER, DR SELAM Bourne Consulting Unavailable YAROSH ., PAULETTE Consulting Unavailable NATASHA, DR MARX Primary Care Unavailable MARGARITA ., [...] Admit Provider MD Nikolas Villafana Other Provider [phone] MD Dwain Peñaloza Attending Provider [phone] GALE CARNEY Referring Unavailable MASON MEMBRENO Primary Care Unavailable Esteban Steward Admitting UnavailEsteban Munguia Attending Unavailabl e Mason Membreno Primary Care Unavailable Rachel Jin Admitting Unavailable Mason Membreno Primary Care Unavailable Nikolas Villafana Consulting Unavailable Alahmad, Alaa Attending Unavailable Herbert Peters MD Primary Care Provider [phone] HERBERT PETERS Primary Care Unavailable TOMAS RAJAN Referring Unavailable Mason Membreno MD Unavailable Mason Membreno MD Primary Care Provider MASON MEMBRENO Attending Unavailable KYRIE CARNEY Attending [...] MEMBRENO Attending Unavailable KYRIE CARNEY Attending Unavailable BG KOEHLER Attending Unavailable TOMAS RAJAN Attending Unavailable TOMAS RAJAN Attending Unavailable BG KOEHLER Attending Unavailable Allergies Allergy Classification Reported Allergen(s) Allergy Type Date of Onset Reaction(s) Facility (20 sources) Isosorbide Dinitrate Drug Allergy 2 shortness of breath, Other [facility] Work Phone: (3 sources) Isosorbide; Translations: [isosorbide] Drug Allergy 2 Hypertensive disorder, systemic arterial (disorder) [facility] (2 sources) Isosorbide; Translations: [ISOSORBIDE MONONITRATE] Drug Allergy 2 [facility] (2 sources) Aspartame Drug Allergy 4 Diarrhea [facility] Repository (1 source) Isosorbide Drug Allergy 4 [facility] Repository (20 sources) Aspartame Drug Allergy 4 Diarrhea [facility] Medications Current Medications Medication Drug Class(es) Dates Sig (Normalized) Sig (Original) 0.25 MG, 0.5 MG Dose 3 ML semaglutide 0.68 MG/ML Pen Injector [Ozempic] (4 sources) Ozempic (0.25 or 0.5 MG/DOSE) 2 MG/3ML as directed Subcutaneous Active acetaminophen 325 mg / oxyCODONE hydrochloride 5 mg oral tablet (6 sources) Opioid Agonist Start: 04-17-2024 take 1 [...] Amlodipine & t Manage Prod Active amylase 618462 unt / lipase 55734 unt / protease 323459 unt delayed release oral capsule (1 source) Start: 3 take 2 capsules by mouth three times daily at mealtime Zenpep [id number] UNIT 2 capsules Orally three times a [...] 27, 2024 12:00am take 1 capsule by ok ut every twenty-four hours Vitamin D3 50 MCG [...] morning. 90 tablet 3 11/24/2022 Active Citalopram [place] bromide Active take 1 tablet by mouth [...] 1.5 mg/ml oral solution (13 sources) Uncompetitive A-kawqbf-Y-asparta te Receptor Antagonist, Sigma-1 Agonist Start: 02-02-2024 End: 02-12-2024 take 10 mL by mouth four times daily as needed for cough and congestion Dextromethorpha n-Pyrilamine ([place] DM) 7.5-7.5 MG/5ML liquid Indications: Acute cough Take 10 mL by mouth 4 (four) times a day as needed (cough and congestion) for up to 10 days 473 mL 02/02/2024 02/12/2024 Active Start: 06-16-2023 take 10 mL by mouth every eight hours [place] DM 7.5-7.5 MG/5ML 10 mL Orally every 8 hours for 5 days Jun, Active Start: 02-24-2023 End: 07-12-2023 take 1 mL by mouth every eight hours Pyrilamine-Dextromethorphan ([place] Dm) 7.5-7.5 mg/5 mL liquid Discontinued 10 ML PO Every 8 hours February 24, 2023 12:00am July 12, 2023 2:49pm Start: 02-22-2023 take 10 mL by mouth every eight hours [place] DM 7.5-7.5 MG/5ML 10 mL Orally every [...] every week ergocalciferol (Vitamin D-2) 1.25 MG (58305 UT) capsule Take 1 capsule by mouth [...] pen injector (20 sources) Insulin Analog Start: 022 Lantus Solostar Pen 100 units/mL subcutaneous solution [...] Active prednisoLONE acetate 10 mg/ml ophthalmic suspension (6 sources) Corticosteroid Start: 06-08-2024 prednisoLONE acetate (Pred-Forte) [...] MG (3 sources) take 1 tablet by once daily Vitamin C 1000 MG 1 [...] for 30 days Apr, Not-Taking bacillus coagulans [id number] unt / inulin 250 mg oral capsule [...] oral tablet (2 sources) alpha-Adrenergic Agonist, Uncompetitive N-warzib-J-aspartate Receptor Antagonist, Sigma-1 Agonist Start: 04-22-2019 take [...] Angiotensin Converting Enzyme Inhibitor Start: 02-16-2013 End: 02-18-2023 take 20 mg by mouth twice daily [...] 12, 2017 1:06pm February 18, 2023 9:41am Anaykn-Scjvlzpl-X mylase (Zenpep) 40,000-126,000- 168,000 unit capsule,delayed release(DR/EC) (2 sources) Start: 02-24-2023 End: 07-12-2023 take [id number] capsules by mouth three times daily at mealtime Cbaper-Uacwlpsl-Gaz lase (Zenpep) 40,000-126,000- 168,000 unit capsule,delayed release(DR/EC) Discontinued 2 CAP PO 3 times per day with meals February 24, 2023 12:00am July 12, 2023 2:48pm Start: 02-24-2023 take 46441-682322 ca psules by mouth three times daily at mealtime Kxxsfn-Odjwlpsy-Xbvkvyw (Zenpep) 40,000-126,000- 168,000 unit capsule,delayed release(DR/EC) Active [...] chronic bronchitis; Translations: [Simple chronic bronchitis] Chronic Conditions associated with dizziness or vertigo (5 sources) Dizziness and giddiness; Translations: [DIZZINESS AND GIDDINESS] Onset: 11-19-2021 Episodic Coronary atherosclerosis and other heart disease (20 sources) Old myocardial infarction; Translations: [Atherosclerotic heart disease of [place] coronary artery without angina pectoris] Onset: 09-11-2018 [...] 10-06-2022 10-06-2022 Chronic Other aftercare (1 source) detention (current) use of insulin; Translations: [ASSISTED CURRENT USE OF INSULIN] Onset: 09-14-2022 Episodic Other aftercare (1 source) Other senior care (current) drug therapy; Translations: [OTH ASSISTED CURRENT DRUG THERAPY] Onset: 09-14-2022 Episodic Other [...] kidney and ureter, unspecified] 02-10-2017 Episodic Other diseases of veins and lymphatics (2 sources) Venous insufficiency (chronic) (peripheral); Translations: [Venous insufficiency (chronic) (peripheral)] Onset: 07-24-2024 Episodic Other disorders of stomach and duodenum [...] [Polyneuropathy, unspecified] Onset: 10-06-2022 10-06-2022 Chronic Other nervous system disorders (2 sources) Anesthesia of skin; Translations: [Anesthesia of skin] Onset: 07-24-2024 Episodic Other nutritional; endocrine; and metabolic disorders (20 [...] [HYPOTENSION DUE TO DRUGS] Onset: 11-25-2021 Episodic Coronary atherosclerosis and other heart disease [...] 10-06-2022 10-06-2022 Episodic Other aftercare (1 source) supervisor intermediates (current) use of aspirin; Translations: [EDI SPECIALIST CURRENT USE OF ASPIRIN] Onset: 11-25-2021 Episodic Other aftercare (1 source) detention (current) use of anticoagulants; Translations: [ASSISTED CURRNT USE ANTICOAGULANTS] Onset: 11-25-2021 Episodic Other aftercare (1 source) supervisor intermediates (current) use of antithrombotics/antip latelets; Translations: [EDI SPECIALIST ANTITHROMBOT/ANTIPLAT LETS] Onset: 11-25-2021 Episodic Other aftercare (20 sources) Long-term current use of insulin; Translations: [detention (current) use of insulin] Onset: 06-06-2015 02-09-2023 [...] Test Name Value Interpretation Reference Range Facility NM JACKIE PERF SPECT REST STRon 07-30-[address] [address] Nuclear Medicine Report Signed Patient: MAURY ISSA MR#: [id number] : 1950 Acct:[id number] Age/Sex: 73 / M ADM Date: 07/26/24 Loc: [place] Attending Dr: BG KOEHLER APRN Ordering Physician: BG KOEHLER APRN Date of Service: 07/26/24 Procedure(s): NM jackie perf SPECT rest str Accession Number(s): [id number] cc: MASON MEMBRENO ; BG KOEHLER APRN Patient Name: MAURY ISSA MR#: [id number] : 1950 Exam Date: 07/26/2024 Ordering Doctor: BG KOEHLER [facility] RADIOLOGY REPORT PROCEDURE: NM JACKIE PERF SPECT REST STR COMPARISON: None. INDICATIONS: CHEST PAIN, SHORTNESS OF BREATH, CORONARY ARTERY DISEASE TECHNIQUE: Exam Description: Stress/Rest one day protocol gated SPECT Rest Imagin.4 mCi Tc-99m Cardiolite IV on 07/26/2024 Stress Imaging 31.0 mCi Tc-99m Cardiolite IV on 07/26/2024 Exercise Protocol: 0.4 mg Lexiscan given IV Heart Rate (bpm): Rest: 50 Max: 75 PMHR: 50 Blood Pressure: Rest: 114/79 Max: 128/62 Symptoms: Rest and peak stress ECG findings were pending and the exercise portion of the study was pending per attending physician [facility] . For more details, please see separate cardiac stress test report. FINDINGS: QUALITY OF STUDY: Good PERFUSION DEFECT: LOCATION: Inferoapical SIZE: Moderate SEVERITY: Moderate TYPE: Fixed more pronounced at rest; likely representing artifact WALL MOTION: Normal LV SIZE: 102 mL. TID / TCD: 1.0 LVEF: Calculated EF 66%. SUMMARY: Myocardial perfusion imaging study is normal CONCLUSION: 1. Myocardial perfusion imaging is normal with soft tissue artifact 2. Normal global left ventricular systolic function 3. No evidence of transient ischemic dilatation Dictated by: Kaela Ohara M.D. on 07/30/2024 at 14:09 Approved by: Kaela Ohara M.D. on 07/30/2024 at 14:15 Dictated By: Kaela Ohara M.D. Signed By: 07/30/24 1416 DD/ 1415 TD/TT: Construction Rep: [facility] Radiology, Radiologist, MD - 07/30/2024 [place] [address] Nuclear Medicine Report Signed Patient: MAURY ISSA MR#: [id number] : 1950 Acct:[id number] Age/Sex: 73 / M ADM Date: 07/26/24 Loc: DC Attending Dr: BG KOEHLER APRN Ordering Physician: BG KOEHLER APRN Date of Service: 07/26/24 Procedure(s): NM jackie perf SPECT rest str Accession Number(s): [id number] cc: MASON MEMBRENO ; BG KOEHLER APRN Patient Name: MAURY ISSA MR#: [id number] : 1950 Exam Date: 07/26/2024 Ordering Doctor: BG KOEHLER CNP RADIOLOGY REPORT PROCEDURE: NM JACKIE PERF SPECT REST STR COMPARISON: None. INDICATIONS: CHEST PAIN, SHORTNESS OF BREATH, CORONARY ARTERY DISEASE TECHNIQUE: Exam Description: Stress/Rest one day protocol gated SPECT Rest Imagin.4 mCi Tc-99m Cardiolite IV on 07/26/2024 Stress Imaging 31.0 mCi Tc-99m Cardiolite IV on 07/26/2024 Exercise Protocol: 0.4 mg Lexiscan given IV Heart Rate (bpm): Rest: 50 Max: 75 PMHR: 50 Blood Pressure: Rest: 114/79 Max: 128/62 Symptoms: Rest and peak stress ECG findings were pending and the exercise portion of the study was pending per attending physician [facility] . For more details, please see separate cardiac stress test report. FINDINGS: QUALITY OF STUDY: Good PERFUSION DEFECT: LOCATION: Inferoapical SIZE: Moderate SEVERITY: Moderate TYPE: Fixed more pronounced at rest; likely representing artifact WALL MOTION: Normal LV SIZE: 102 mL. TID / TCD: 1.0 LVEF: Calculated EF 66%. SUMMARY: Myocardial perfusion imaging study is normal CONCLUSION: 1. Myocardial perfusion imaging is normal with soft tissue artifact 2. Normal global left ventricular systolic function 3. No evidence of transient ischemic dilatation Dictated by: Kaela Ohara M.D. on 07/30/2024 at 14:09 Approved by: Kaela Ohara M.D. on 07/30/2024 at 14:15 Dictated By: Kaela Ohara M.D. Signed By: 07/30/24 141 DD/ 14 TD/TT: Construction Rep: [facility] Radiology Study observation (narrative) [facility] NM JACKIE PERF SPECT REST STROr dered By: Radiologist Radiology on 07-30-2024 [facility] Work Phone: 37on 07-24-2024 37 *Recommend compression stockings with 20-30 mmHg of compression *[facility] should be calling you to schedule the heart ultrasound, stress test, and carotid ultrasound Normal [facility] Office Visiton 07-24-2024 Follow-up visit [id number] Maury Issa 1950 M Date Provider Department Center 07/24/2024 BG RYAN [facility] Family History Problem Relation Age of Onset Heart attack Brother Family Status - Relation Status Age at Brother Level of Service:41684 [place] OFFICE/OUTPATIENT ESTABLISHED MOD MDM 30 MIN Reason for Visit and Comments: Chest Pain [329657] Coronary Artery Disease [187] Dizziness [486697] Normal [facility] LIPID PANEL, STANDARDon Cholesterol [Mass/Vol] 146 mg/dL Normal <200 [facility] Comment on above: Order Comment: FASTI NG:YES FASTING: YES Performed By: #### 7 805, 5344 #### [facility] [address], [address] [place] [address] Compliance Assistant: Kennedy Garcia MD Cholesterol in HDL [Mass/Vol] 30 mg/dL Low > OR = 40 [facility] Comment on above: Order Comment: FASTI NG:YES FASTING: YES Performed By: #### 7 655, 5302 #### [facility] [place] [address] Compliance Assistant: Kennedy Garcia MD Cholesterol in LDL [Mass/Vol] [...] LDL-C. Alessandro ECHAVARRIA et al. AMANDA. 2013;310(19): 7718-0240 (http://education.[employer]Jay.[employer]faq/SPR799) Performed By: #### 7 600, 5363 #### [facility] [address], [address] [place] [address] Compliance Assistant: Kennedy Garcia MD Cholesterol.total/Destiny sterol in HDL [Mass ratio] 4.9 {ratio} Normal <5.0 [facility] Comment on above: Order Comment: FASTI NG:YES FASTING: YES Performed By: #### 7 600, 5363 #### [facility] [address], [address] [place] [address] Compliance Assistant: Kennedy Garcia MD NON HDL CHOLESTEROL 116 mg/dL (calc) Normal <130 [facility] Comment on above: Order Comment: FASTI NG:YES FASTING: YES Result Comment: For patients with diabetes plus 1 major ASCVD risk factor, treating to a non-HDL-C goal of <100 mg/dL (LDL-C of <70 mg/dL) is considered a therapeutic option. Performed By: #### 7 600, 5363 #### [facility] [address], [address] [place] [address] Compliance Assistant: Kennedy Garcia MD Triglyceride [Mass/Vol] 226 mg/dL High <150 [facility] Comment on above: Order Comment: FASTI NG:YES FASTING: YES Result Comment: If a non-fasting specimen was collected, consider repeat triglyceride testing on a fasting specimen if clinically indicated. Dale et al. J. of Clin. Lipidol. 2015;9:129-169. Performed By: #### 7 600, 5363 #### [facility] [address], [address] [place] [address] Compliance Assistant: Kennedy Garcia MD PSA, TOTALon 07-12-2024 PSA, TOTAL 1.12 ng/mL Normal < OR = 4.00 [facility] Comment on above: Result Comment: The total [...] #### 7 600, 5363 #### [facility] [address] [facility], [address] [place] [address] Compliance Assistant: Kennedy Garcia MD Office Visiton 07-11-2024 Follow-up visit [id number] Maury Issa 1950 M Date Provider Department Center 07/11/2024 BG RYAN [facility] Family History Problem Relation Age of Onset Heart attack Brother Family Status - Relation Status Age at Brother Level of Service:40201 [place] OFFICE/OUTPATIENT ESTABLISHED MOD MDM 30 MIN Reason for Visit and Comments: Coronary Artery Disease [187] Hypertension [946355] Hyperlipidemia [182] Atrial Fibrillation [80] Normal [facility] HbA1c (Bld) [Mass fraction]o n 06-13-2024 [facility] Laboratory - Chemistry and C hemistry - challengeon 06-13-2024 Albumin [Mass/Vol] 4.3 g/dL [facility] Creatinine (U) [Mass/Vol] 2.5 mg/dL [facility] GFR/1.73 sq M.predicted among non-blacks MDRD (S/P/Bld) [Vol rate/Area] 27 mL/min/{1.73_m2} [facility] Potassium [Moles/Vol] 4.9 mmol/L [facility] Sodium [Moles/Vol] 138 mmol/L [facility] Urea nitrogen [Mass/Vol] 43 mg/dL [facility] Laboratory - Hematology and Cell countson 06-13-2024 HbA1c (Bld) [Mass fraction] 6 % [facility] Microalbumin/Creatinine rati o panel (U)on 06-13-2024 Albumin DL <= 20 mg/L (U) [Mass/Vol] 48 mg/dL [facility] Albumin/Creatinine DL <= 1.0 mg/L (U) [Ratio] 528 [facility] Creatinine (U) [Mass/Vol] 91 mg/dL [facility] No Panel Informationon 06-13 [facility] - Hematology and Cell countson 02-27-2024 HbA1c (Bld) [Mass fraction] 5.6 % [facility] No Panel Informationon 02-26 [facility] No Panel InformationOrdered By: Lotus Casillas on 01-27-2024 Quick Strep (POC) [facility] Follow-Upon 01-13-2024 Follow-Up [id number] Maury Issa Jann 1950 [facility] Provider Department Center 01/13/2024 3848-TOMAS RAJAN [facility] Family History Problem Relation Age of Onset Heart attack Brother Family Status - Relation Status Age at Brother Level of Service:40155 [place] OFFICE/OUTPATIENT ESTABLISHED LOW MDM [address] [facility] MRI CARD MORPH FUNC WO/W IVC ONon 01-11-2024 MRI CARD MORPH FUNC WO/W IVCON * * *Final Report* * * DATE OF EXAM: Jan 11 2024 5:40PM [facility] 0703 - MRI CARD MORPH FUNC WO/W IVCON / PROCEDURE REASON: I42.2 * * * * Physician Interpretation * * * * Cardiac MRI Report: [facility] Date of service: 01/11/2024 3:38:29 PM Linked orders:[id number] CARD MORPH FUNC WO/W IVCON;[id number] CARDIAC VELOCITY FLOW MAP. Ordering physician: TOMAS [...] moderate asymmet (more content not included)... Normal [facility] MRI CARDIAC VELOCITY FLOW RADHA Bhandari 01-11-2024 MRI CARDIAC VELOCITY FLOW MAP * * *Final Report* * * DATE OF EXAM: Jan 11 2024 5:40PM [facility] 0704 - MRI CARDIAC VELOCITY FLOW MAP / PROCEDURE REASON: I42.2 * * * * Physician Interpretation * * * * Cardiac MRI Report: [facility] Date of service: 01/11/2024 3:38:29 PM Linked orders:[id number] CARD MORPH FUNC WO/W IVCON;[id number] CARDIAC VELOCITY FLOW MAP. Ordering physician: TOMAS [...] moderate asymmetr (more content not included)... Normal [facility] 01-04-2024 [facility] Telephone ([facility] MAURY ISSA ([id number]) 1950 M Date Time Provider Department 01/04/24 FRANCIA DUMONT [facility] During your visit today, we recorded the following information about you: Francia Dumont, sole cutter 01/04/2024 4:46 PM Signed Aye Boateng, Could [...] Encounter Status:Closed by FRANCIA DUMONT on 01/04/24 [facility] Office Visiton 12-02-2023 Follow-up visit [id number] Maury Issa 1950 M Date Provider Department Center 12/02/2023 3848-TOMAS RAJAN MAU [facility] Family History Problem Relation Age of Onset Heart attack Brother Family Status - Relation Status Age at Brother Level of Service:51813 [place] OFFICE/OUTPATIENT ESTABLISHED MOD MDM [address] [facility] Orders Onlyon 12-02-2023 Orders Only [id number] Maury Issa 1950 M Date Provider Department Center 12/02/2023 895-CHAKA GOODSON MAU [facility] Family History Problem Relation Age of Onset Heart attack Brother Family Status - Relation Status Age at Brother [facility] 36on 10-31-[address] Rajan- patient is ok to stop Plavix and taking low dose aspirin. Patient stopped by the office last week and was made aware. [facility] 36on 09-17-2023 36 He is on Eliquis and Plavix per Dr. Rajan. We can switch plavix to aspirin if okay with Dr. Rajan. [facility] 36on 09-15-2023 36 Patient's significant other Isa called with a question about Neymar. I guess when Dr. Daly was seeing her in the office recently, Don mentioned to Dr. Daly about all his bruising on his arms. He told Dr. Daly he is taking 2 blood thinners - Plavix and Eliquis. Isa said Dr. Daly told Don he shouldn't be on Plavix and Eliquis this long after stent placement. Should be still be taking Plavix? Please advise. Thanks! [facility] Telephoneon 09-15-2023 Telephone [id number] Maury Issa Jann 1950 Date Provider Department [place] 09/15/2023 Alejandro8-FELIXSAEID MAU [facility] Family History Problem Relation Age of Onset Heart attack Brother Family Status - Relation Status Age at Brother [facility] COVID + FLU Quick Testingon 06-16-2023 SARS-CoV-2 (COVID-19) RNA GALLO+probe Ql (Unsp spec) Negative [facility] Other COVID + FLU Quick Testing Negative [facility] Other Basic Metabolic Panelon 10-2 Creatinine Clr Calc Pharmacy 40.83 Normal [facility] Comment on above: Result Comment: PERF ORMED BY: [facility] [address] [place] [address] PATHOLOGIST CRAYON SAWYER ALEJANDRINA EID M.D. Performed By: #### G LULS #### Point of Care testing , GFR/1.73 sq M.predicted MDRD (S/P/Bld) [Vol rate/Area] 40.533 mL/min/{1.73_m2} Normal [facility] Comment on above: Performed By: #### G LULS #### Point of Care testing , Calcium [Mass/volume] in Ser um or PlasmaOrdered By: Shruti Savage on 02-28-2023 Calcium [Mass/Vol] 8.3 mg/dL Low 8.6-10.3 [facility] Comment on above: Performed By: #### G LULS #### Point of Care testing , Capillary blood glucose stephanie urement by glucometer (mass/volume)Ordered By: Dwain Peñaloza on 02-28-2023 Glucose [Mass/Vol] 98 mg/dL Normal [facility] Comment on above: Random Glucose Refer ence Range is dependent on time and content of last meal. Glucose of more than 200 mg/dL in a nonstressed, ambulatory subject supports the diagnosis of Diabetes Mellitus. Result Comment: [place] Glucose Reference Range is dependent on time and content of last meal. Glucose of more than 200 mg/dL in a nonstressed, ambulatory subject supports the diagnosis of Diabetes Mellitus. Performed By: #### G LULS #### Point of Care testing , Carbon dioxide, total [Moles /volume] in Serum or PlasmaOrdered By: Shruti Savage on 02-28-2023 CO2 [Moles/Vol] 30.2 mmol/L Normal 21.0-31.0 [facility] Comment on above: Performed By: #### G LULS #### Point of Care testing , Chloride [Moles/volume] in S heath or PlasmaOrdered By: Shruti Savage on 02-28-2023 Chloride [Moles/Vol] 110 mmol/L High 98-107 [facility] Comment on above: Performed By: #### G LULS #### Point of Care testing , Creatinine [Mass/volume] in Serum or PlasmaOrdered By: Shruti Savage on 02-28-2023 Creatinine [Mass/Vol] 1.78 mg/dL High 0.70-1.30 [facility] Comment on above: Performed By: #### G LULS #### Point of Care testing , Glucose Poct Glucometerson 1 Commemt1 Glu2: Cleaned Meter Normal [facility] Comment on above: Result Comment: PERF ORMED BY: [facility] [address] [place] [address] PATHOLOGIST CRAYON SAWYER ALEJANDRINA EID M.D. Performed By: #### G LULS #### Point of Care testing , Glucose [Mass/Vol] 96 mg/dL Normal [facility] Comment on above: Result Comment: [facility] Glucose Reference Range is dependent on time and content of last meal. Glucose of more than 200 mg/dL in a nonstressed, ambulatory subject supports the diagnosis of Diabetes Mellitus. PERFORMED BY: [facility] [address] [place] [address] PATHOLOGIST CRAYON SAWYER ALEJANDRINA EID M.D. Performed By: #### G LULS #### Point of Care testing , Glucose [Mass/Vol] 83 mg/dL Normal [facility] Comment on above: Result Comment: [facility] Glucose Reference Range is dependent on time and content of last meal. Glucose of more than 200 mg/dL in a nonstressed, ambulatory subject supports the diagnosis of Diabetes Mellitus. PERFORMED BY: [facility] [address] [place] [address] PATHOLOGIST CRAYON SAWYER ALEJANDRINA EID M.D. Performed By: #### G LULS #### Point of Care testing , Glucose [Mass/volume] in Ser um or PlasmaOrdered By: Shruti Savage on 02-28-2023 Glucose [Mass/Vol] 82 mg/dL Normal 70-100 [facility] Comment on above: ADA recommended refe rence rangeRandom Glucose Reference Range is dependent on time and content of last meal. Glucose of more than 200 mg/dL in a nonstressed, ambulatory subject supports the diagnosis of Diabetes Mellitus. Result Comment: [facility] Glucose Reference Range is dependent on time [...] (Bld) [Volume fraction] 27.9 % Low 38.8-50.0 [facility] Comment on above: Result Comment: PERF ORMED BY: [facility] [address] [place] [address] PATHOLOGIST CRAYON SAWYER ALEJANDRINA EID M.D. Performed By: #### G LULS #### Point of Care testing , Hemoglobin [Mass/volume] in BloodOrdered By: Shruti Savage on 02-28-2023 Hemoglobin (Bld) [Mass/Vol] 9.7 g/dL Low 13.0-17.0 [facility] Comment on above: Performed By: #### G LULS #### Point of Care testing , No Panel InformationOrdered By: Dwain Peñaloza on 02-28-2023 Bedside Glucose Comment Glu2: cleaned meter [facility] No Panel InformationOrdered By: Shruti Savage on 02-28-2023 Estimated GFR (CKD-EPI) 40.533 mL/Min [facility] Creatinine Clearance (Chem 40.83 [facility] Potassium [Moles/volume] in Serum or PlasmaOrdered By: Shruti Savage on 02-28-2023 Potassium [Moles/Vol] 4.5 mmol/L Normal 3.5-5.1 [facility] Comment on above: Performed By: #### G LULS #### Point of Care testing , Serum or plasma anion gap de terminationOrdered By: Shruti Savage on 02-28-2023 Anion gap [Moles/Vol] 7.3 mmol/L Normal 6.0-15.0 [facility] Comment on above: Performed By: #### G LULS #### Point of Care testing , Sodium [Moles/volume] in Ser um or PlasmaOrdered By: Shruti Savage on 02-28-2023 Sodium [Moles/Vol] 143 mmol/L Normal 136-145 [facility] Comment on above: Performed By: #### G LULS #### Point of Care testing , Urea nitrogen [Mass/volume] in Serum or PlasmaOrdered By: Shruti Savage on 02-28-2023 Urea nitrogen [Mass/Vol] 23 mg/dL Significant change down 11-30 [facility] Comment on above: Delta: 70 on Performed By: #### G LULS #### Point of Care testing , Glucose Poct Glucometerson 1 Glucose [Mass/Vol] 172 mg/dL Normal [facility] Comment on above: Result Comment: [facility] Glucose Reference Range is dependent on time and content of last meal. Glucose of more than 200 mg/dL in a nonstressed, ambulatory subject supports the diagnosis of Diabetes Mellitus. PERFORMED BY: [address] [place] [address] PATHOLOGIST CRAYON SAWYER ALEJANDRINA EID M.D. Performed By: #### G LULS #### Point of Care testing , Glucose [Mass/Vol] 89 mg/dL Normal [facility] Comment on above: Result Comment: [facility] Glucose Reference Range is dependent on time and content of last meal. Glucose of more than 200 mg/dL in a nonstressed, ambulatory subject supports the diagnosis of Diabetes Mellitus. PERFORMED BY: [address] [place] [address] PATHOLOGIST CRAYON SAWYER ALEJANDRINA EID M.D. Performed By: #### G LULS #### Point of Care testing , Glucose [Mass/Vol] 94 mg/dL Normal [facility] Comment on above: Result Comment: [facility] Glucose Reference Range is dependent on time and content of last meal. Glucose of more than 200 mg/dL in a nonstressed, ambulatory subject supports the diagnosis of Diabetes Mellitus. PERFORMED BY: [address] [place] [address] PATHOLOGIST CRAYON SAWYER ALEJANDRINA EID M.D. Performed By: #### G LULS #### Point of Care testing , Glucose [Mass/Vol] 96 mg/dL Normal [facility] Comment on above: Result Comment: [facility] Glucose Reference Range is dependent on time and content of last meal. Glucose of more than 200 mg/dL in a nonstressed, ambulatory subject supports the diagnosis of Diabetes Mellitus. PERFORMED BY: [address] [place] [address] PATHOLOGIST CRAYON SAWYER ALEJANDRINA EID M.D. Performed By: #### G LULS #### Point of Care testing , Hemoglobin and Hematocriton 02-27-2023 Hematocrit (Bld) [Volume fraction] 30.4 % Low 38.8-50.0 [facility] Comment on above: Result Comment: PERF ORMED BY: [address] [place] [address] PATHOLOGIST CRAYON SAWYER ALEJANDRINA EID M.D. Performed By: #### G LULS #### Point of Care testing , Hemoglobin (Bld) [Mass/Vol] 10.6 g/dL Low 13.0-17.0 [facility] Comment on above: Performed By: #### G LULS #### Point of Care testing , Hematocrit (Bld) [Volume fraction] 25.9 % Low 38.8-50.0 [facility] Comment on above: Result Comment: PERF ORMED BY: [address] [place] [address] PATHOLOGIST CRAYON SAWYER ALEJANDRINA EID M.D. Performed By: #### G LULS #### Point of Care testing , Hemoglobin (Bld) [Mass/Vol] 9.2 g/dL Low 13.0-17.0 [facility] Comment on above: Performed By: #### G LULS #### Point of Care testing , Alanine aminotransferase [En zymatic activity/volume] in Serum or PlasmaOrdered By: Shruti Savage on 02-26-2023 ALT [Catalytic activity/Vol] 11 U/L Normal 7-52 [facility] Comment on above: Performed By: #### G LULS #### Point of Care testing , Albumin [Mass/volume] in Ser um or Plasma by Bromocresol green (BCG) dye binding methoOrdered By: Shruti Savage on 02-26-2023 Albumin BCG dye [Mass/Vol] 3.2 g/dL 3.5-5.7 [facility] Alkaline phosphatase [Enzyma tic activity/volume] in Serum or PlasmaOrdered By: Shruti Barraganomar on 02-26-2023 ALP [Catalytic activity/Vol] 25 U/L Low 34-104 [facility] Comment on above: Performed By: #### G LULS #### Point of Care testing , Aspartate aminotransferase [ Enzymatic activity/volume] in Serum or PlasmaOrdered By: Shruti Barraganomar on 02-26-2023 AST [Catalytic activity/Vol] 11 U/L Low 13-39 [facility] Comment on above: Performed By: #### G LULS #### Point of Care testing , Basophils Auto (Bld) [#/Vol] Ordered By: Shruti Barraganomar on 02-26-2023 Basophils (Bld) [#/Vol] N/A F [facility] Basophils/100 WBC Auto (Bld) Ordered By: Obgeronimodaenzo Barraganomar on 02-26-2023 Basophils/100 WBC (Bld) N/A [facility] Bilirubin.total [Mass/volume ] in Serum or PlasmaOrdered By: Shruti Covarrubiasr on 02-26-2023 Bilirubin [Mass/Vol] 0.6 mg/dL Normal 0.3-1.0 [facility] Comment on above: Performed By: #### G LULS #### Point of Care testing , Comprehensive Metabolic Pane mayo 02-26-2023 Albumin [Mass/Vol] 3.2 g/dL Low 3.5-5.7 [facility] Comment on above: Performed By: #### G LULS #### Point of Care testing , Anion gap [Moles/Vol] 8.5 mmol/L Normal 6.0-15.0 [facility] Comment on above: Performed By: #### G LULS #### Point of Care testing , Calcium [Mass/Vol] 8.2 mg/dL Low 8.6-10.3 [facility] Comment on above: Performed By: #### G LULS #### Point of Care testing , Chloride [Moles/Vol] 113 mmol/L High 98-107 [facility] Comment on above: Performed By: #### G LULS #### Point of Care testing , CO2 [Moles/Vol] 23.3 mmol/L Normal 21.0-31.0 [facility] Comment on above: Performed By: #### G LULS #### Point of Care testing , Creatinine [Mass/Vol] 2.03 mg/dL High 0.70-1.30 [facility] Comment on above: Performed By: #### G LULS #### Point of Care testing , Creatinine Clr Calc Pharmacy 36.00 Normal [facility] Comment on above: Result Comment: PERF ORMED BY: [address] [address] PATHOLOGIST CRAYON SAWYER ALEJANDRINA EID M.D. Performed By: #### G LULS #### Point of Care testing , GFR/1.73 sq M.predicted MDRD (S/P/Bld) [Vol rate/Area] 34.619 mL/min/{1.73_m2} Normal [facility] Comment on above: Performed By: #### G LULS #### Point of Care testing , Glucose [Mass/Vol] 91 mg/dL Normal 70-100 [facility] Comment on above: Result Comment: [facility] Glucose Reference Range is dependent on time and content of last meal. Glucose of more than 200 mg/dL in a nonstressed, ambulatory subject supports the diagnosis of Diabetes Mellitus. ADA recommended reference range Performed By: #### G LULS #### Point of Care testing , Potassium [Moles/Vol] 3.8 mmol/L Normal 3.5-5.1 [facility] Comment on above: Performed By: #### G LULS #### Point of Care testing , Sodium [Moles/Vol] 141 mmol/L Normal 136-145 [facility] Comment on above: Performed By: #### G LULS #### Point of Care testing , Urea nitrogen [Mass/Vol] 70 mg/dL High 7-25 [facility] Comment on above: Performed By: #### G LULS #### Point of Care testing , Diff and CBCon 02-26-2023 Hematocrit (Bld) [Volume fraction] 28.4 % Low 38.8-50.0 [facility] Comment on above: Performed By: #### G LULS #### Point of Care testing , Hemoglobin (Bld) [Mass/Vol] 9.7 g/dL Low 13.0-17.0 [facility] Comment on above: Performed By: #### G LULS #### Point of Care testing , Mean Corpuscular HGB Conc 34.2 g/dL Normal 32.5-35.6 [facility] Comment on above: Performed By: #### G LULS #### Point of Care testing , Myelocytes 3 % High 0-0 [facility] Comment on above: Performed By: #### G LULS #### Point of Care testing , Ovalocytes Slight Normal [facility] Comment on above: Performed By: #### G LULS #### Point of Care testing , Platelet Estimate Decreased Normal Normal [facility] Comment on above: Performed By: #### G LULS #### Point of Care testing , Platelet Morphology Normal Normal Normal [facility] Comment on above: Result Comment: PERF ORMED BY: [facility] [address] [place] [address] PATHOLOGIST CRAYON SAWYER ALEJANDRINA EID M.D. Performed By: #### G LULS #### Point of Care testing , Poikilocytosis Slight Normal [facility] Comment on above: Performed By: #### G LULS #### Point of Care testing , Polychromasia Slight Normal [facility] Comment on above: Performed By: #### G LULS #### Point of Care testing , Eosinophils Auto (Bld) [#/Vo l]Ordered By: Obgeronimodaenzo Daromar on 02-26-2023 Eosinophils (Bld) [#/Vol] N/A [facility] Eosinophils/100 WBC Auto (Bl d)Ordered By: Obgeronimodah Daromar on 02-26-2023 Eosinophils/100 WBC (Bld) N/A [facility] Erythrocyte distribution wid th [Ratio] by Automated countOrdered By: Shruti Barraganomar on 02-26-2023 Erythrocyte distribution width (RBC) [Ratio] 15.0 % High 12.0-14.8 [facility] Comment on above: Performed By: #### G LULS #### Point of Care testing , Erythrocytes [#/volume] in B lood by Automated countOrdered By: Shruti Barraganomar on 02-26-2023 RBC (Bld) [#/Vol] 3.33 10*6/uL Low 3.90-5.60 [facility] Comment on above: Performed By: #### G LULS #### Point of Care testing , Glucose Poct Glucometerson 1 Commemt1 Glu2: Cleaned Meter Normal [facility] Comment on above: Result Comment: PERF ORMED BY: [address] [place] [address] PATHOLOGIST CRAYON SAWYER ALEJANDRINA EID M.D. Performed By: #### G LULS #### Point of Care testing , Glucose [Mass/Vol] 141 mg/dL Normal [facility] Comment on above: Result Comment: [facility] Glucose Reference Range is dependent on time and content of last meal. Glucose of more than 200 mg/dL in a nonstressed, ambulatory subject supports the diagnosis of Diabetes Mellitus. Performed By: #### G LULS #### Point of Care testing , Commemt1 Glu2: Cleaned Meter Normal [facility] Comment on above: Result Comment: PERF ORMED BY: [address] [place] [address] PATHOLOGIST CRAYON SAWYER ALEJANDRINA EID M.D. Performed By: #### G LULS #### Point of Care testing , Glucose [Mass/Vol] 94 mg/dL Normal [facility] Comment on above: Result Comment: [facility] Glucose Reference Range is dependent on time and content of last meal. Glucose of more than 200 mg/dL in a nonstressed, ambulatory subject supports the diagnosis of Diabetes Mellitus. Performed By: #### G LULS #### Point of Care testing , Glucose [Mass/Vol] 106 mg/dL Normal [facility] Comment on above: Result Comment: [facility] Glucose Reference Range is dependent on time and content of last meal. Glucose of more than 200 mg/dL in a nonstressed, ambulatory subject supports the diagnosis of Diabetes Mellitus. PERFORMED BY: [address] [place] [address] PATHOLOGIST CRAYON SAWYER ALEJANDRINA EID M.D. Performed By: #### G LULS #### Point of Care testing , Glucose [Mass/Vol] 94 mg/dL Normal [facility] Comment on above: Result Comment: [facility] Glucose Reference Range is dependent on time and content of last meal. Glucose of more than 200 mg/dL in a nonstressed, ambulatory subject supports the diagnosis of Diabetes Mellitus. PERFORMED BY: [address] [place] [address] PATHOLOGIST CRAYON SAWYER ALEJANDRINA EID M.D. Performed By: #### G LULS #### Point of Care testing , Hemoglobin and Hematocriton 02-26-2023 Hematocrit (Bld) [Volume fraction] 25.8 % Low 38.8-50.0 [facility] Comment on above: Result Comment: PERF ORMED BY: [address] [place] [address] PATHOLOGIST CRAYON SAWYER ALEJANDRINA EID M.D. Performed By: #### G LULS #### Point of Care testing , Hemoglobin (Bld) [Mass/Vol] 9.0 g/dL Low 13.0-17.0 [facility] Comment on above: Performed By: #### G LULS #### Point of Care testing , Hematocrit (Bld) [Volume fraction] 27.9 % Low 38.8-50.0 [facility] Comment on above: Result Comment: PERF ORMED BY: [place] [address] PATHOLOGIST CRAYON SAWYER ALEJANDRINA EID M.D. Performed By: #### H H #### [facility] [address] [place] [address] [place] Hemoglobin (Bld) [Mass/Vol] 9.6 g/dL Low 13.0-17.0 [facility] Comment on above: Performed By: #### H H #### [facility] [address] [place] [address] Leukocytes [#/volume] correc ayana for nucleated erythrocytes in Blood by Automated counOrdered By: Obaydah Daromar on 02-26-2023 WBC corrected for nucl RBC Auto (Bld) [#/Vol] 9.8 10*3/uL 4.1-10.5 [facility] Leukocytes [#/volume] in Blo od by Automated countOrdered By: Obaydah Daromar on 02-26-2023 WBC (Bld) [#/Vol] 9.8 10*3/uL Normal 4.1-10.5 [facility] Comment on above: Performed By: #### G LULS #### Point of Care testing , Lymphocytes Auto (Bld) [#/Vo l]Ordered By: Obaydah Daromar on 02-26-2023 Lymphocytes (Bld) [#/Vol] N/A [facility] Lymphocytes/100 WBC Auto (Bl d)Ordered By: Obaydah Daromar on 02-26-2023 Lymphocytes/100 WBC (Bld) N/A [facility] Lymphocytes/100 leukocytes i n Blood by Manual countOrdered By: Obaydah Daromar on 02-26-2023 Lymphocytes/100 WBC (Bld) 20 % Normal 18-42 [facility] Comment on above: Performed By: #### G LULS #### Point of Care testing , MCH [Entitic mass] by Automa ayana countOrdered By: Obaydah Daromar on 02-26-2023 MCH (RBC) [Entitic mass] 29.2 pg Normal 27.5-35.2 [facility] Comment on above: Performed By: #### G LULS #### Point of Care testing , MCHC Auto (RBC) [Mass/Vol]Or dered By: Obaydah Daromar on 02-26-2023 MCHC (RBC) [Mass/Vol] 34.2 g/dL 32.5-35.6 [facility] MCV [Entitic volume] by Auto mated countOrdered By: Obaydah Daromar on 02-26-2023 MCV (RBC) [Entitic vol] 85.3 fL Normal 83.5-101 F [facility] Comment on above: Performed By: #### G LULS #### Point of Care testing , Manual blood segmented neutr ophils/100 leukocytesOrdered By: Obgeronimodah Daromar on 02-26-2023 Segmented neutrophils/100 WBC (Bld) 75 % High 50-70 [facility] Comment on above: Performed By: #### G LULS #### Point of Care testing , Monocytes Auto (Bld) [#/Vol] Ordered By: Obaydah Daromar on 02-26-2023 Monocytes (Bld) [#/Vol] N/A [facility] Monocytes/100 WBC Auto (Bld) Ordered By: Obgeronimodah Daromar on 02-26-2023 Monocytes/100 WBC (Bld) N/A [facility] Monocytes/100 leukocytes in Blood by Manual countOrdered By: Obgeronimodah Daromar on 02-26-2023 Monocytes/100 WBC (Bld) 2 % Normal 2-11 [facility] Comment on above: Performed By: #### G LULS #### Point of Care testing , Myelocytes/100 WBC Manual cn t (Bld)Ordered By: Obgeronimodah Daromar on 02-26-2023 Myelocytes/100 WBC (Bld) 3 % 0-0 [facility] Neutrophils Auto (Bld) [#/Vo l]Ordered By: Obaydah Daromar on 10-21-2023 Neutrophils (Bld) [#/Vol] N/A [facility] Neutrophils/100 WBC Auto (Bl d)Ordered By: Obgeronimodaenzo Barraganomar on 02-26-2023 Neutrophils/100 WBC (Bld) N/A [facility] Nucleated erythrocytes [Pres ence] in Blood by Automated countOrdered By: Obivan Barraganomar on 02-26-2023 Nucleated RBC Auto Ql (Bld) N/A [facility] Ovalocyte detectionOrdered B y: Obgeronimodah Yungomar on 02-26-2023 Ovalocytes LM Ql (Bld) Slight [facility] Platelet adequacy [Presence] in Blood by Light microscopyOrdered By: Obivan Barraganomar on 02-26-2023 Platelets LM Ql (Bld) Decreased Normal [facility] Platelet mean volume [Entiti c volume] in Blood by Automated countOrdered By: Shruti Barraganomar on 02-26-2023 Platelet mean volume (Bld) [Entitic vol] 8.6 fL Normal 6.6-10.1 [facility] Comment on above: Result Comment: PERF ORMED BY: [facility] [address] [facility] [place] [address] PATHOLOGIST CRAYON SAWYER ALEJANDRINA EID M.D. Performed By: #### G LULS #### Point of Care testing , Platelet morphology finding [Identifier] in BloodOrdered By: Shruti Covarrubiasr on 02-26-2023 Platelet morphology finding Nom (Bld) Normal Normal [facility] Platelets [#/volume] in Bloo d by Automated countOrdered By: Shruti Barraganomar on 02-26-2023 Platelets (Bld) [#/Vol] 116 10*3/uL Signific ant change down 150-450 [facility] Comment on above: Delta: 155 on -1015 Performed By: #### G LULS #### Point of Care testing , Poikilocytosis [Presence] in Blood by Light microscopyOrdered By: Shruti Barraganomar on 02-26-2023 Poikilocytosis LM Ql (Bld) Slight [facility] Polychromasia [Presence] in Blood by Light microscopyOrdered By: Shruti Barraganomar on 02-26-2023 Polychromasia LM Ql (Bld) Slight [facility] Protein [Mass/volume] in Ser um or PlasmaOrdered By: Obgeronimodaenzo Barraganomar on 02-26-2023 Protein [Mass/Vol] 5.3 g/dL Low 6.4-8.9 [facility] Comment on above: Performed By: #### G LULS #### Point of Care testing , RBC morphologyOrdered By: Ob ivan Barraganomar on 02-26-2023 RBC morphology finding Nom (Bld) N/A [facility] Serum globulin measurement b y calculation (mass/volume)Ordered By: Shruti Barraganomar on 02-26-2023 Globulin (S) [Mass/Vol] 2.1 g/dL Normal F [facility] Comment on above: Performed By: #### G LULS #### Point of Care testing , Serum or plasma albumin/glob ulin mass ratioOrdered By: Shruti Barraganomar on 02-26-2023 Albumin/Globulin [Mass ratio] 1.5 {ratio} Normal [facility] Comment on above: Performed By: #### G LULS #### Point of Care testing , ABO/Rh Retypeon 02-25-2023 ABO/RH Recheck Result Positive Normal [facility] Comment on above: Result Comment: PERF ORMED BY: [facility] [address] [place] [address] PATHOLOGIST CRAYON SAWYER ALEJANDRINA EID M.D. Basic Metabolic Panelon 02-07 Anion gap [Moles/Vol] 9.9 mmol/L Normal 6.0-15.0 [facility] Comment on above: Performed By: #### G LULS #### Point of Care testing , Calcium [Mass/Vol] 8.2 mg/dL Low 8.6-10.3 [facility] Comment on above: Performed By: #### G LULS #### Point of Care testing , Chloride [Moles/Vol] 112 mmol/L High 98-107 [facility] Comment on above: Performed By: #### G LULS #### Point of Care testing , CO2 [Moles/Vol] 21.6 mmol/L Normal 21.0-31.0 [facility] Comment on above: Performed By: #### G LULS #### Point of Care testing , Creatinine [Mass/Vol] 2.17 mg/dL High 0.70-1.30 [facility] Comment on above: Performed By: #### G LULS #### Point of Care testing , Creatinine Clr Calc Pharmacy 33.67 Normal [facility] Comment on above: Result Comment: PERF ORMED BY: [facility] [address] [place] [address] PATHOLOGIST CRAYON SAWYER ALEJANDRINA EID M.D. Performed By: #### G LULS #### Point of Care testing , GFR/1.73 sq M.predicted MDRD (S/P/Bld) [Vol rate/Area] 31.957 mL/min/{1.73_m2} Normal [facility] Comment on above: Performed By: #### G LULS #### Point of Care testing , Glucose [Mass/Vol] 117 mg/dL High 70-100 [facility] Comment on above: Result Comment: [facility] Glucose Reference Range is dependent on time and content of last meal. Glucose of more than 200 mg/dL in a nonstressed, ambulatory subject supports the diagnosis of Diabetes Mellitus. ADA recommended reference range Performed By: #### G LULS #### Point of Care testing , Potassium [Moles/Vol] 3.5 mmol/L Normal 3.5-5.1 [facility] Comment on above: Performed By: #### G LULS #### Point of Care testing , Sodium [Moles/Vol] 140 mmol/L Normal 136-145 [facility] Comment on above: Performed By: #### G LULS #### Point of Care testing , Urea nitrogen [Mass/Vol] 98 mg/dL High 7-25 [facility] Comment on above: Performed By: #### G LULS #### Point of Care testing , Complete Blood Count Auto Di ffon 10-20-2023 Basophils (Bld) [#/Vol] 0.0 10*3/uL Normal 0.0-0.2 [facility] Comment on above: Result Comment: PERF ORMED BY: [facility] [place] [address] PATHOLOGIST CRAYON SAWYER ALEJANDRINA EID M.D. Performed By: #### G LULS #### Point of Care testing , Basophils/100 WBC (Bld) 0.1 % Normal . [facility] Comment on above: Performed By: #### G LULS #### Point of Care testing , Eosinophils (Bld) [#/Vol] 0.0 10*3/uL Normal 0.0-0.45 [facility] Comment on above: Performed By: #### G LULS #### Point of Care testing , Eosinophils/100 WBC (Bld) 0.0 % Normal . [facility] Comment on above: Performed By: #### G LULS #### Point of Care testing , Erythrocyte distribution width (RBC) [Ratio] 14.8 % Normal 12.0-14.8 [facility] Comment on above: Performed By: #### G LULS #### Point of Care testing , Hematocrit (Bld) [Volume fraction] 24.7 % Low 38.8-50.0 [facility] Comment on above: Performed By: #### G LULS #### Point of Care testing , Hemoglobin (Bld) [Mass/Vol] 8.3 g/dL Low 13.0-17.0 [facility] Comment on above: Performed By: #### G LULS #### Point of Care testing , Lymphocytes (Bld) [#/Vol] 1.9 10*3/uL Normal 1.00-4.8 [facility] Comment on above: Performed By: #### G LULS #### Point of Care testing , Lymphocytes/100 WBC (Bld) 14.7 % Normal . [facility] Comment on above: Performed By: #### G LULS #### Point of Care testing , MCH (RBC) [Entitic mass] 28.8 pg Normal 27.5-35.2 [facility] Comment on above: Performed By: #### G LULS #### Point of Care testing , MCV (RBC) [Entitic vol] 85.3 fL Normal 83.5-101 [facility] Comment on above: Performed By: #### G LULS #### Point of Care testing , Mean Corpuscular HGB Conc 33.7 g/dL Normal 32.5-35.6 [facility] Comment on above: Performed By: #### G LULS #### Point of Care testing , Monocytes (Bld) [#/Vol] 0.9 10*3/uL High 0.0-0.8 [facility] Comment on above: Performed By: #### G LULS #### Point of Care testing , Monocytes/100 WBC (Bld) 6.8 % Normal . [facility] Comment on above: Performed By: #### G LULS #### Point of Care testing , Neutrophils (Bld) [#/Vol] 10.3 10*3/uL High 1.8-7.7 [facility] Comment on above: Performed By: #### G LULS #### Point of Care testing , Neutrophils/100 WBC (Bld) 78.4 % Normal . [facility] Comment on above: Performed By: #### G LULS #### Point of Care testing , NRBC% 0.1 /100{WBC} Normal 0-0.5 The [facility] Comment on above: Performed By: #### G LULS #### Point of Care testing , Platelet mean volume (Bld) [Entitic vol] 8.9 fL Normal 6.6-10.1 The [facility] Comment on above: Performed By: #### G LULS #### Point of Care testing , Platelets (Bld) [#/Vol] 155 10*3/uL Normal 150-450 [facility] Comment on above: Performed By: #### G LULS #### Point of Care testing , RBC (Bld) [#/Vol] 2.90 10*6/uL Low 3.90-5.60 The [facility] Comment on above: Performed By: #### G LULS #### Point of Care testing , WBC (Bld) [#/Vol] 13.1 10*3/uL High 4.1-10.5 [facility] Comment on above: Performed By: #### G LULS #### Point of Care testing , ECG 12 lead ECGon 02-25-2023 ECG 12 lead ECG [facility] Main [place] [address] [place] [address] Electrocardiograph Report Signed Patient: Maury Issa MR#: [id number] : 1950 Acct:[id number] Age/Sex: 72 / M ADM Date: 02/24/23 Loc: Room: [address] [place] [address] Type: ADM IN Attending Dr: Shruti Savage [...] previous ECGs available Confirmed by NIGHAT KNOTT [id number] on 02/27/2023 10:42:24 AM Referred By: Electronically Signed By:HAMLET REYES MD [facility] Transcribed By: MUS Signed By Christian Reyes MD 02/27/23 1042 Normal [facility] Glucose Poct Glucometerson 1 Glucose [Mass/Vol] 139 mg/dL Normal [facility] Comment on above: Result Comment: [facility] Glucose Reference Range is dependent on time and content of last meal. Glucose of more than 200 mg/dL in a nonstressed, ambulatory subject supports the diagnosis of Diabetes Mellitus. PERFORMED BY: [address] [address] PATHOLOGIST CRAYON SAWYER ALEJANDRINA EID M.D. Performed By: #### G LULS #### Point of Care testing , Glucose [Mass/Vol] 170 mg/dL Normal [facility] Comment on above: Result Comment: [facility] Glucose Reference Range is dependent on time and content of last meal. Glucose of more than 200 mg/dL in a nonstressed, ambulatory subject supports the diagnosis of Diabetes Mellitus. PERFORMED BY: [place] [address] PATHOLOGIST CRAYON SAWYER ALEJANDRINA EID M.D. Performed By: #### G LULS #### Point of Care testing , Glucose [Mass/Vol] 150 mg/dL Normal [facility] Comment on above: Result Comment: [facility] Glucose Reference Range is dependent on time and content of last meal. Glucose of more than 200 mg/dL in a nonstressed, ambulatory subject supports the diagnosis of Diabetes Mellitus. PERFORMED BY: [place] [address] PATHOLOGIST CRAYON SAWYER ALEJANDRINA EID M.D. Performed By: #### G LULS #### Point of Care testing , Glucose [Mass/Vol] 177 mg/dL Normal [facility] Comment on above: Result Comment: [facility] Glucose Reference Range is dependent on time and content of last meal. Glucose of more than 200 mg/dL in a nonstressed, ambulatory subject supports the diagnosis of Diabetes Mellitus. PERFORMED BY: [place] [address] PATHOLOGIST CRAYON SAWYER ALEJANDRINA EID M.D. Performed By: #### G LULS #### Point of Care testing , Hemoglobin and Hematocriton 02-25-2023 Hematocrit (Bld) [Volume fraction] 26.9 % Low 38.8-50.0 [facility] Comment on above: Result Comment: PERF ORMED BY: [place] [address] PATHOLOGIST CRAYON SAWYER ALEJANDRINA EID M.D. Performed By: #### H H #### [address] Hemoglobin (Bld) [Mass/Vol] 9.3 g/dL Low 13.0-17.0 [facility] Comment on above: Performed By: #### H H #### [address] Hematocrit (Bld) [Volume fraction] 21.4 % Low 38.8-50.0 [facility] Comment on above: Result Comment: PERF ORMED BY: [place] [address] PATHOLOGIST CRAYON SAWYER ALEJANDRINA EID M.D. Performed By: #### G LULS #### Point of Care testing , Hemoglobin (Bld) [Mass/Vol] 7.3 g/dL Low 13.0-17.0 [facility] Comment on above: Performed By: #### G LULS #### Point of Care testing , Hematocrit (Bld) [Volume fraction] 26.1 % Low 38.8-50.0 [facility] Comment on above: Result Comment: PERF ORMED BY: [place] [address] PATHOLOGIST CRAYON SAWYER ALEJANDRINA EID M.D. Performed By: #### G LULS #### Point of Care testing , Hemoglobin (Bld) [Mass/Vol] 8.7 g/dL Low 13.0-17.0 [facility] Comment on above: Performed By: #### G LULS #### Point of Care testing , LeukoReduced RBCon 3 LeukoReduced RBC TRANSFUSED 02/25/23 0243 Normal [facility] Troponin I High Sensitivityo n 02-25-2023 Troponin I High Sensitivity 13.5 pg/mL Normal 0.0-20.0 [facility] Comment on above: Result Comment: PERF ORMED BY: [place] [address] PATHOLOGIST CRAYON SAWYER ALEJANDRINA EID M.D. Performed By: #### G LULS #### Point of Care testing , Troponin I High Sensitivity 13.6 pg/mL Normal 0.0-20.0 [facility] Comment on above: Result Comment: PERF ORMED BY: [place] [address] PATHOLOGIST CRAYON SAWYER ALEJANDRINA EID M.D. Performed By: #### G MIGUEL #### Point of Care testing , Troponin I.cardiac [Mass/vol ume] in Serum or Plasma by Detection limit <= 0.01 ng/Ordered By: Rachel Jin on 02-25-2023 Troponin I.cardiac DL <= 0.01 ng/mL [Mass/Vol] 13.5 pg/mL 0.0-20.0 [facility] Type and Screenon 02-25-2023 ABO and Rh group Nom (Bld) Blood group AB Rh(D) positive Normal [facility] Comment on above: Order Comment: Trans fuse now? Y Number of units to transfuse now? 2 Transfuse now? Y Number of units to transfuse now? 2 Result Comment: PERF ORMED BY: [place] [address] PATHOLOGIST CRAYON SAWYER ALEJANDRINA EID M.D. XR knee RT 2Von 02-25-2023 XR knee RT 2V [facility] Main [address] [address] XRay Report Signed Patient: Maury Issa MR#: [id number] : 1950 Acct:[id number] Age/Sex: 72 / M ADM Date: 02/24/23 Loc: Room: [address] [place] [address] Type: ADM IN Attending Dr: Shruti Savage MD Copies to: MD aRchel Wynn MD Ordering Provider: Rachel Jin MD [...] Riki Rider M.D.02/25/2023 12:31 PM Dictation Location: [place] [address] Transcribed By: OSIEL 02/25/23 1231 Dictated By: Riki Rider DO 02/25/23 1230 Signed By: 02/25/23 1231 Normal [facility] Complete Blood Count Auto Di ffon 02-24-2023 Basophils (Bld) [#/Vol] 0.0 10*3/uL Normal 0.0-0.2 [facility] Comment on above: Result Comment: PERF ORMED BY: [address] [address] PATHOLOGIST CRAYON SAWYER ALEJANDRINA EID M.D. Performed By: #### G LULS #### Point of Care testing , Basophils/100 WBC (Bld) 0.1 % Normal . T [facility] Comment on above: Performed By: #### G LULS #### Point of Care testing , Eosinophils (Bld) [#/Vol] 0.0 10*3/uL Normal 0.0-0.45 [facility] Comment on above: Performed By: #### G LULS #### Point of Care testing , Eosinophils/100 WBC (Bld) 0.0 % Normal . [facility] Comment on above: Performed By: #### G LULS #### Point of Care testing , Erythrocyte distribution width (RBC) [Ratio] 14.6 % Normal 12.0-14.8 [facility] Comment on above: Performed By: #### G LULS #### Point of Care testing , Hematocrit (Bld) [Volume fraction] 20.4 % Low 38.8-50.0 [facility] Comment on above: Performed By: #### G LULS #### Point of Care testing , Hemoglobin (Bld) [Mass/Vol] 7.0 g/dL Low 13.0-17.0 [facility] Comment on above: Performed By: #### G LULS #### Point of Care testing , Lymphocytes (Bld) [#/Vol] 1.3 10*3/uL Normal 1.00-4.8 [facility] Comment on above: Performed By: #### G LULS #### Point of Care testing , Lymphocytes/100 WBC (Bld) 9.6 % Normal . [facility] Comment on above: Performed By: #### G LULS #### Point of Care testing , MCH (RBC) [Entitic mass] 29.1 pg Normal 27.5-35.2 [facility] Comment on above: Performed By: #### G LULS #### Point of Care testing , MCV (RBC) [Entitic vol] 84.8 fL Normal 83.5-101 [facility] Comment on above: Performed By: #### G LULS #### Point of Care testing , Mean Corpuscular HGB Conc 34.3 g/dL Normal 32.5-35.6 [facility] Comment on above: Performed By: #### G LULS #### Point of Care testing , Monocytes (Bld) [#/Vol] 0.6 10*3/uL Normal 0.0-0.8 [facility] Comment on above: Performed By: #### G LULS #### Point of Care testing , Monocytes/100 WBC (Bld) 4.5 % Normal . [facility] Comment on above: Performed By: #### G LULS #### Point of Care testing , Neutrophils (Bld) [#/Vol] 11.7 10*3/uL High 1.8-7.7 [facility] Comment on above: Performed By: #### G LULS #### Point of Care testing , Neutrophils/100 WBC (Bld) 85.8 % Normal . [facility] Comment on above: Performed By: #### G LULS #### Point of Care testing , NRBC% 0.0 /100{WBC} Normal 0-0.5 [facility] Comment on above: Performed By: #### G LULS #### Point of Care testing , Platelet mean volume (Bld) [Entitic vol] 8.6 fL Normal 6.6-10.1 [facility] Comment on above: Performed By: #### G LULS #### Point of Care testing , Platelets (Bld) [#/Vol] 148 10*3/uL Low 150-450 [facility] Comment on above: Performed By: #### G LULS #### Point of Care testing , RBC (Bld) [#/Vol] 2.41 10*6/uL Low 3.90-5.60 [facility] Comment on above: Performed By: #### G LULS #### Point of Care testing , WBC (Bld) [#/Vol] 13.6 10*3/uL High 4.1-10.5 [facility] Comment on above: Performed By: #### G LULS #### Point of Care testing , Capillary blood glucose stephanie urement by glucometer (mass/volume)Ordered By: Esteban Steward on 02-18-2023 Glucose [Mass/Vol] 99 mg/dL Normal [facility] Comment on above: Random Glucose Refer ence Range is dependent on time and content of last meal. Glucose of more than 200 mg/dL in a nonstressed, ambulatory subject supports the diagnosis of Diabetes Mellitus. Result Comment: [facility] Glucose Reference Range is dependent on time and content of last meal. Glucose of more than 200 mg/dL in a nonstressed, ambulatory subject supports the diagnosis of Diabetes Mellitus. PERFORMED BY: [facility] [address] [place] [address] PATHOLOGIST CRAYON SAWYER ALEJANDRINA EID M.D. Performed By: #### G LULS #### Point of Care testing , [facility] 02-18-2023 L Specimen: [id number] Received: 02/18/23 Status: EVERETTE Sotomayor Num: [id number] Spec Type: Surgical Subm Dr: Esteban Steward MD Tissues: A Duodenum - Biopsy (DUODENAL BX) B Stomach - Biopsy/Polyp (ANTRAL POLYP) C STOMACH FOR HP (ANTRAL HP) Procedures: HE/6, Gross/Micro L4/3, H PYLORI, IHC First AB Age/ Patient Sex Location Account Attending Physician Maury Issa/Maryuri [id number] Esteban Steward MD SPEC NUM: [id number] RECD: 02/18/23 STATUS: EVERETTE SOTOMAYOR NUM: [id number] NORA: 02/18/23- SUBM DR: Esteban Steward MD ENTERED: 02/18/[address]: SPEC TYPE: Surgical DEPT: S ORDERED: [...] control for H. pylori immunostaining reviewed. Specimen: [id number] Received: 02/18/23 Status: EVERETTE Cheannalisa Num: [id number] Spec Type: Surgical Subm Dr: Esteban Steward MD Tissues: A Duodenum - Biopsy (DUODENAL BX) B Stomach - Biopsy/Polyp (ANTRAL POLYP) C STOMACH FOR HP (ANTRAL HP) Procedures: HE/6, Gross/Micro L4/3, H PYLORI, IHC First AB Patient: Maury Issa [id number] (Continued) Specimen: [id number] Received: 02/18/23 (Continued) Signed (signature on file) Juan Adams MD 02/22/23 1309 Specimen: [id number] Received: 02/18/23 Status: EVERETTE Sotomayor Num: [id number] Spec Type: Surgical Subm Dr: Esteban Steward MD Tissues: A Duodenum - Biopsy (DUODENAL BX) B Stomach - Biopsy/Polyp (ANTRAL POLYP) C STOMACH FOR HP (ANTRAL HP) Procedures: HE/6, Gross/Micro L4/3, H PYLORI, IHC First AB Patient: Maury Issa [id number] (Continued) Specimen: [id number] Received: 02/18/23 (Continued) Clinical Information Diarrhea, dyspepsia, [...] microscopic examination confirms the diagnosis. CPT Codes 09152i4 Specimen: [id number] Received: 02/18/23 Status: EVERETTE Sotomayor Num: [id number] Spec Type: Surgical Subm Dr: Esteban Steward MD Tissues: A Duodenum - Biopsy (DUODENAL BX) B Stomach - Biopsy/Polyp (ANTRAL POLYP) C STOMACH FOR HP (ANTRAL HP) Procedures: HE/6, Gross/Micro L4/3, H PYLORI, IHC First AB Patient: Maury Issa [id number] (Continued) ------- (more content not included)... Normal [facility] Lab Reportson 10-31-2022 Lab Reports [id number] 3#1.00CD:127 Normal [facility] Ambulatory Visit Summaryon 0 10-27-2022 Ambulatory Visit Summary MAURY ISSA :1950 Visit Date:10/27/2022 Ambulatory Visit Instructions Your Diagnosis BPH with urinary obstruction Elevated PSA Renal cyst Bilateral varicoceles Glucosuria Tests Performed Urnls Dip Stick Auto w/o Microscopy POC 99090 Your Care Team Attending Physician - Francisca Pierre MD Primary Care Physician - MASON MEMBRENO MD This Is Your Medications List Contact prescribing [...] Follow Up with Ignacio KNOTT, Francisca Jimenez, URL, URO When: Comments: PRN Where: [address] [place] [phone] Medications What How Much When Instructions Unchanged [...] Urnls Dip Stick Auto w/o Microscopy POC 14310 (10/27/2022) Bilirubin Urine Dipstick - Negative Blood Urine Dipstick - Trace-intact Glucose Urine Dipstick - 3+ 1000 mg/dl Ketones Urine Dipstick - Negative Leukocytes Urine Dipstick - Negative Nitrite Urine Dipstick - Negative Protein Urine Dipstick - 2+ (100 mg/dl) Specific [place] Urine Dipstick - 1.020 Urine Appearance Urine [...] is d (more content not included)... Normal [facility] Patient Educationon 10-28-19 Patient Education Oncology [...] Where to find more information ? The [place] [employer]: www.cancer.org ? [place] [employer]: www.auanet.org Contact a health care [...] adds flu (more content not included)... Normal [facility] Screenson 10-27-2022 Screens [id number] 0#1.00CD:127 Normal [facility] Screens [id number] 1.00CD:127 Normal [facility] Urology Office/Clinic Noteon 10-27-2022 Urology Office/Clinic [...] 10/18/22 CT 09/12/22. Pt had gone to [facility] due to LLQ pain. Dysuria: denies pain [...] PSA surveillance with PCP. Pt presented to [facility] 09/12/22 for bowel dysfunction. 1. BPH with [...] Information Ignacio KNOTT, Francisca Jimenez, URL, URO [address] [place] [address] (more content not included)... Normal [facility] Comment on above: Result Comment: Elec tronically Signed By: Francisca Pierre MD\.br\Date and Time Signed: 10/27/22 18:26 EDT\.br\Electronically Co-Signed By: Ramya Ghosh\.br\Date and Time Co-Signed: 10/27/22 10:40 EDT ED Note-Physicianon 10-26-19 ED Note-Physician [id number] 1.00CD:127 Normal [facility] RAD - Ultrasound Reporton RAD - Ultrasound Report [id number] 1.00CD:127 Normal [facility] AMYLASEon 09-12-2022 Amylase [Catalytic activity/Vol] 101 U/L Normal 25-115 [facility] Comment on above: Performed By: #### A MY, CMP, LIPA #### [facility] [address] [place] [address] [address] Tami Merrill CBC AUTO DIFFon 09-12-2022 BASO # 0.0 103/ul Normal 0.0-0.1 [facility] Comment on above: Performed By: #### C BC ####[facility] [address] [place] [address]Dr. Tami Merrill Basophils/100 WBC (Bld) 0.2 % Normal 0.2-2.0 [facility] Comment on above: Performed By: #### C BC ####[facility] [address] [place] [id number] Merrill EO # 0.3 103/ul Normal 0.0-0.7 [facility] Comment on above: Performed By: #### C BC ####[facility] [address] [place] [address]DrFlorentin Merrill Eosinophils/100 WBC (Bld) 3.1 % Normal 0.9-7.0 [facility] Comment on above: Performed By: #### C BC ####[facility] [address] [place] [id number]. Tami Merrill Erythrocyte distribution width (RBC) [Ratio] 13.8 % Normal 11.0-15.0 [facility] Comment on above: Performed By: #### C BC ####[facility] [address] [place] [address]Dr. Tami Merrill Hematocrit (Bld) [Volume fraction] 41.9 % Critically low 42.0-54.0 [facility] Comment on above: Performed By: #### C BC ####[facility] [address] [place], [place] [address]Dr. Tami Merrill Hemoglobin (Bld) [Mass/Vol] 14.0 g/dL Normal 14.0-18.0 [facility] Comment on above: Performed By: #### C BC ####[facility] [address] [place], [place] [address]Dr. Tami Merrill IG # 0.02 10e3/ul Normal 0.00-0.03 [facility] Comment on above: Performed By: #### C BC ####[facility] [address] [place], [place] [address]Dr. Tami Merrill IG % 0.2 % Normal 0.0-0.5 [facility] Comment on above: Performed By: #### C BC ####[facility] [address] [place], [place] [address]Dr. Tami Merrill LYMPH # 1.5 103/ul Normal 1.2-3.8 [facility] Comment on above: Performed By: #### C BC ####[facility] [address] [place], [place] [address]Dr. Tami Merrill Lymphocytes/100 WBC (Bld) 18.4 % Critically low 20.5-60.0 [facility] Comment on above: Performed By: #### C BC ####[facility] [address] [place], [place] [address]Dr. Tami Merrill MANUAL DIFF REQ NO Normal [facility] Comment on above: Performed By: #### C BC ####[facility] [address] [place] [address]Dr. Tami Merrill MCH (RBC) [Entitic mass] 27.6 pg Normal 25.9-34.0 [facility] Comment on above: Performed By: #### C BC ####[facility] [address] [place], [place] [address]Dr. Tami Merrill MCHC (RBC) [Mass/Vol] 33.4 g/dL Normal 29.9-35.2 [facility] Comment on above: Performed By: #### C BC ####[facility] [address] [place], [place] [address]Dr. Tami Merrill MCV (RBC) [Entitic vol] 82.6 fL Normal 80.0-94.0 [facility] Comment on above: Performed By: #### C BC ####[facility] [address] [place], [place] [address]Dr. Tami Garfield MONO # 0.8 103/ul Normal 0.3-0.8 [facility] Comment on above: Performed By: #### C BC ####[facility] [address] [place], [place] [address]Dr. Tami Garfield Monocytes/100 WBC (Bld) 9.6 % Normal 1.7-12.0 [facility] Comment on above: Performed By: #### C BC ####[facility] [address] [place], [place] [address]Dr. Tami Merrill NEUT # 5.5 103/ul Normal 1.4-6.5 [facility] Comment on above: Performed By: #### C BC ####[facility] [address] [place], [place] [address]Dr. Tami Garfield Neutrophils/100 WBC (Bld) 68.5 % Normal 43.0-75.0 [facility] Comment on above: Performed By: #### C BC ####[facility] [address] [place], [place] [address]Dr. Tami Merrill Platelet mean volume (Bld) [Entitic vol] 9.6 fL Normal 9.5-13.5 [facility] [facility] Comment on above: Performed By: #### C BC ####[facility] [address] [place], [place] [address]Ej. Tami Merrill PLT 150 103/ul Normal 150-450 [facility] Comment on above: Performed By: #### C BC ####[facility] [address]vy[address] [place], [place] [address]Sp. Tami Merrill RBC 5.07 106/ul Normal 4.70-6.10 [facility] Comment on above: Performed By: #### C BC ####[facility] Xxdhieeqxz7[address] [place], [place] [address]Un. Tami Merrill WBC 8.1 103/ul Normal 4.0-11.0 [facility] Comment on above: Performed By: #### C BC ####[facility] [address]qv[address] [place] [id number]. Tami Merrill CT ABD/PELVIS WO CONon 09-12 CT ABD/PELVIS WO CON EXAM: CT scan of e abdomen and pelvis without contrast. Dose [...] POPPY WINTER Date: 2022-09-12 07:27 Normal [facility] ER URINE PROFILEon 3 Bilirubin Ql (U) Negative Normal NEGATIVE The [facility] Comment on above: Performed By: #### U MICRO, ERUR ####[facility] Lnnflsgxqx[address] [place] [id number]. Tami Merrill Clarity (U) CLEAR Normal CLEAR [facility] Comment on above: Performed By: #### U MICRO, ERUR ####[facility] [address]evvnmoeb[address] [place] [address]Dr. Tami Merrill Color (U) LT. YELLOW Normal YELLOW [facility] Comment on above: Performed By: #### U MICRO, ERUR ####[facility] E[address] [place], [place] [address]Dr. Tami Merrill ERUAHD A micrscopic examination will be performed if indicated. Normal [facility] Comment on above: Performed By: #### U MICRO, ERUR ####[facility] [address]ffve[address] [place], [place] [address]Dr. Tami Merrill Glucose Ql (U) 1000 mg/dl Abnormal NEGATIVE [facility] Comment on above: Performed By: #### U MICRO, ERUR ####[facility] Mxwmxnbwth[address] [place], [place] [address]Dr. Tami Merrill Hemoglobin Ql (U) TRACE-INTACT Abnormal NEGATIVE [facility] Comment on above: Performed By: #### U MICRO, ERUR ####[facility] Lfwghboh[address] [place], [place] [address]Dr. Tami Merrill Ketones Ql (U) Negative Normal NEGATIVE [facility] Comment on above: Performed By: #### U MICRO, ERUR ####[facility] Hpdanukcit[address] [place], [place] [address]Dr. Tami Merrill LEUKOCYTES Negative Normal NEGATIVE [facility] Comment on above: Performed By: #### U MICRO, ERUR ####[facility] X[address]rs[address]ax[address] [place], [place] [address]Dr. Tami Merrill Nitrite Ql (U) Negative Normal NEGATIVE [facility] Comment on above: Performed By: #### U MICRO, ERUR ####[facility] Q[address]qvpgowt[address] [place], [place] [address]Dr. Tami Merrill pH (U) 5.0 [pH] Normal 5-9 [facility] Comment on above: Performed By: #### U MICRO, ERUR ####[facility] [address]wvojn[address] [place], [place] [address]Dr. Tami Merrill Protein (U) [Mass/Vol] 30 mg/dL Abnormal NEGAT MIKE/ TRACE [facility] Comment on above: Performed By: #### U MICRO, ERUR ####[facility] Wkmieczmtk[address] [place], [place] [address]Dr. Tami Merrill SPEC GRAVITY 1.020 Normal 1.005-<=1.02 5 [facility] Comment on above: Performed By: #### U MICRO, ERUR ####[facility] [address]qmrq[address] [place], [place] [address]Dr. Tami Merrill UR MICRO IND INDICATED Normal [facility] Comment on above: Performed By: #### U MICRO, ERUR ####[facility] Rxmcvamzyq[address] [place], [place] [address]Dr. Tami Merrill Urobilinogen Qn (U) 0.2 {Angela'U}/dL Normal 0.2 - 1. 0 [facility] Comment on above: Performed By: #### U MICRO, ERUR ####[facility] Bwjiizkceo[address] [place], [place] [address]Dr. Tami Merrill GI PANEL (PCR)on 09-12-2022 Adenovirus F 40/41 Not detected Normal NOT DETECTED [facility] Comment on above: Performed By: #### G IPANEL ####[facility] Nlbndsszaw[address] [place], [place] [address]Dr. Tami Merrill Astrovirus Not detected Normal NOT DETECTED [facility] Comment on above: Performed By: #### G IPANEL ####[facility] [address]naqegq[address] [place], [place] [address]Dr. Tami Merrill C. Diff toxin A/B Not detected Normal NOT DETECTED [facility] Comment on above: Performed By: #### G IPANEL ####[facility] Vqwzcwfhmq[address] [place], [place] [address]Dr. Tami Merrill Campylobacter Not detected Normal NOT DETECTED [facility] Comment on above: Performed By: #### G IPANEL ####[facility] Xtnxlezgvk[address] [place], [place] [address]Dr. Tami Merrill Cryptosporidium Not detected Normal NOT DETECTED [facility] Comment on above: Performed By: #### G IPANEL ####[facility] Cobkuixbxx[address] [place], [place] [address]Dr. Tami Merrill Cyclos. Cayetanensis Not detected Normal NOT DETECTED [facility] Comment on above: Performed By: #### G IPANEL ####[facility] Xuawxgngba[address] [place], [place] [address]Dr. Tami Merrill E. Coli O157 Not Applicable Normal Not Applicable [facility] Comment on above: Performed By: #### G IPANEL ####[facility] Dbcbyryvgw78[address] [place], [place] [address]Dr. Tami Merrill E. histolytica Not detected Normal NOT DETECTED [facility] Comment on above: Performed By: #### G IPANEL ####[facility] Zgvnrefycc[address] [place], [place] [address]Dr. Tami Merrill EAEC Not detected Normal NOT DETECTED [facility] Comment on above: Performed By: #### G IPANEL ####[facility] Onxzjkivkf[address] [place], [place] [address]Dr. Tami Merrill EIEC Not detected Normal NOT DETECTED [facility] Comment on above: Performed By: #### G IPANEL ####[facility] Vvxdaxtuvv[address] [place], [place] [address]Dr. Tami Merrill EPEC Not detected Normal NOT DETECTED [facility] Comment on above: Performed By: #### G IPANEL ####[facility] [address]iauklz[address] [place], [place] [address]Dr. Tami Merrill ETEC Not detected Normal NOT DETECTED [facility] Comment on above: Performed By: #### G IPANEL ####[facility] Eiebfvnqxi[address] [place], [place] [address]Dr. Tami Merrill G. Lamblia Not detected Normal NOT DETECTED [facility] Comment on above: Performed By: #### G IPANEL ####[facility] Z[address]jagj[address] [place], [place] [address]Dr. Brittaniac Merrill GIPANEL CONTROLS PASSED Normal The [facility] Comment on above: Performed By: #### G IPANEL ####[facility] Am[address]luxdrz[address] [place] [id number]. Tami ALBARADONL JAGUAR HEADER GI PANEL BACTERIA Normal [facility] Comment on above: Performed By: #### G IPANEL ####[facility] X[address]uwkhjkn[address] [place] [id number]. Tami Merrill GIPNLHD ECOLI GI PANEL DIARRHEAGENIC E.COLI / SHIGELLA Normal [facility] Comment on above: Performed By: #### G IPANEL ####[facility] Kw[address]rwav[address] [place] [address]Dr. Tami Merrill GIPNLHD INFO SEE BELOW Normal [facility] Comment on above: Result Comment: EAEC - Enteroaggregative E. Coli EPEC- Enteropathogenic E. Coli ETEC- Enterotoxigenic E. Coli lt/st STEC- Shigella-like toxin-producing E. Coli stx1/stx2 EIEC- Shigella/Enteroinvasive E. Coli Performed By: #### G IPANEL ####[facility] [address] [place], [place] [address]Dr. Tami Merrill GIPNLHD PARASITES GI PANEL PARASITES Normal [facility] Comment on above: Performed By: #### G IPANEL ####[facility] V[address]zdxbwwj[address] [place], [place] [address]Dr. Tami Merrill GIPNLHD VIRUS GI PANEL VIRUSES Normal [facility] Comment on above: Performed By: #### G IPANEL ####[facility] Unggfeiojl[address] [place], [place] [address]Dr. Tami Merrill Norovirus GI/GII Not detected Normal NOT DETECTED [facility] Comment on above: Performed By: #### G IPANEL ####[facility] U[address]potz[address] [place] [address]Dr. Tami Merrill P. Shigelloides Not detected Normal NOT DETECTED [facility] Comment on above: Performed By: #### G IPANEL ####[facility] Tmd[address]olpce[address] [place], [place] [address]Dr. Tami Merrill Rotavirus A Not detected Normal NOT DETECTED The [facility] Comment on above: Performed By: #### G IPANEL ####[facility] Jisk[address]olzge[address] [place] [address]Dr. Brittaniac Merrill Salmonella Not detected Normal NOT DETECTED [facility] Comment on above: Performed By: #### G IPANEL ####[facility] Innsleffeb[address] [place] [address]Dr. Tami Merrill Sapovirus Not detected Normal NOT DETECTED [facility] Comment on above: Performed By: #### G IPANEL ####[facility] Sdarbipgrr[address] [place], [place] [address]Dr. Tami Merrill STEC Not detected Normal NOT DETECTED [facility] Comment on above: Performed By: #### G IPANEL ####[facility] Drtftzilou[address] [place], [place] [address]Dr. Tami Merrill Vibrio Not detected Normal NOT DETECTED [facility] Comment on above: Performed By: #### G IPANEL ####[facility] Cinsfsjtme[address] [place], [place] [address]Dr. Tami Merrill Vibrio Cholera Not detected Normal NOT DETECTED [facility] Comment on above: Performed By: #### G IPANEL ####[facility] Prxkrujndx[address] [place], [place] [address]Dr. Tami Merrill Y. Enterocolitica Not detected Normal NOT DETECTED [facility] Comment on above: Performed By: #### G IPANEL ####[facility] Fhiygpaggz[address] [place], [place] [address]Dr. Tami Merrill LACTATE/LACTIC ACIDon 2022 Lactate [Moles/Vol] 0.7 mmol/L Normal 0.4-2.0 [facility] Comment on above: Performed By: #### L ACT ####[facility] S[address]bfudlhg[address] [place], [place] [address]Dr. Tami Merrill LIPASEon 09-12-2022 Lipase [Catalytic activity/Vol] 270.0 U/L Normal 73.0-393.0 [facility] Comment on above: Performed By: #### A MY, CMP, LIPA #### [facility] [address] [place] [address] [address] Tami Merrill PROF 14(COMP METB)on 023 Albumin [Mass/Vol] 3.9 g/dL Normal 3.4-5.0 [facility] Comment on above: Performed By: #### A MY, CMP, LIPA ####[facility] Kdqkwmlaou[address] [place] [address]Dr. Brittaniac Merrill Albumin/Globulin [Mass ratio] 1.0 {ratio} Normal [facility] Comment on above: Performed By: #### A MY, CMP, LIPA ####[facility] Ovdzfyaeui[address] [place] [address]Dr. Tami Garfield ALP [Catalytic activity/Vol] 52 U/L Normal 46-116 [facility] Comment on above: Performed By: #### A MY, CMP, LIPA ####[facility] Ghebajxlnq[address] [place] [address]Dr. Tami Merrill ALT [Catalytic activity/Vol] 24 U/L Normal 16-63 [facility] Comment on above: Performed By: #### A MY, CMP, LIPA ####[facility] Ehiutwujib[address] [place] [address]Dr. Tami Merrill Anion gap [Moles/Vol] 14.0 mmol/L Normal [facility] Comment on above: Performed By: #### A MY, CMP, LIPA ####[facility] Wkcawerasw23[address] [place] [address]Dr. Tami Merrill AST [Catalytic activity/Vol] 14 U/L Critically low 15-37 [facility] Comment on above: Performed By: #### A MY, CMP, LIPA ####[facility] Bxqhgznoxp97[address] [place] [address]Dr. Tami Merrill Bilirubin [Mass/Vol] 0.3 mg/dL Normal 0.2-1.0 [facility] Comment on above: Performed By: #### A MY, CMP, LIPA ####[facility] Fowctougzo54[address] [place] [address]Dr. Tami Merrill Calcium [Mass/Vol] 9.1 mg/dL Normal 8.5-10.1 [facility] Comment on above: Performed By: #### A MY, CMP, LIPA ####[facility] Jnpedywjqg[address] [place] [address]Dr. Tami Merrill Chloride [Moles/Vol] 107 mmol/L Normal 98-107 [facility] Comment on above: Performed By: #### A MY, CMP, LIPA ####[facility] Yslgfubjlw4873 [place] [address]Dr. Tami Merrill CO2 [Moles/Vol] 24.5 mmol/L Normal 21.0-32.0 [facility] Comment on above: Performed By: #### A MY, CMP, LIPA ####[facility] [address]ugguvfjj[address] [place], [place] [address]Dr. Tami Merrill Creatinine [Mass/Vol] 2.42 mg/dL Critically high 0.70-1.30 [facility] Comment on above: Performed By: #### A MY, CMP, LIPA ####[facility] Fvr[address]rlxbp[address] [place], [place] [address]Dr. Tami Merrill EGFR-AF CHINESE 32 mL/min/1.73m2 Critically low >=60 [facility] Comment on above: Performed By: #### A MY, CMP, LIPA ####[facility] Jxpez[address]fyu[address] [place], [place] [address]Dr. Tami Merrill EGFR-NON AF CHINESE 27 mL/min/1.73m2 Critically low >=60 [facility] Comment on above: Performed By: #### A MY, CMP, LIPA ####[facility] Gaeqghryxo[address] [place] [address]Dr. Tami Merrill Globulin (S) [Mass/Vol] 3.9 g/dL Normal [facility] Comment on above: Performed By: #### A MY, CMP, LIPA ####[facility] G[address]xc[address]nydhq[address] [place], [place] [address]Dr. Tami Merrill Glucose [Mass/Vol] 107 mg/dL Critically high 74-106 [facility] Comment on above: Performed By: #### A MY, CMP, LIPA ####[facility] Ibknwzubrs[address] [place], [place] [address]Dr. Tami Merrill Potassium [Moles/Vol] 3.6 mmol/L Normal 3.5-5.1 [facility] Comment on above: Performed By: #### A MY, CMP, LIPA ####[facility] V[address]wkvwhy[address] [place] [address]Dr. Tami Merrill Protein [Mass/Vol] 7.8 g/dL Normal 6.4-8.2 [facility] Comment on above: Performed By: #### A MY, CMP, LIPA ####[facility] Gazeescmjj7[address] [place] [address]Dr. Tami Merrill Sodium [Moles/Vol] 142 mmol/L Normal 136-145 [facility] Comment on above: Performed By: #### A MY, CMP, LIPA ####[facility] Kydzbjlryl80[address] [place] [address]Dr. Tami Merrill Urea nitrogen [Mass/Vol] 38.0 mg/dL Critically high 7.0-18.0 [facility] Comment on above: Performed By: #### A MY, CMP, LIPA ####[facility] Dxgwmwpejq[address] [place], [place] [address]Dr. Tami Merrill Urea nitrogen/Creatinine [Mass ratio] 15.7 mg/mg Normal [facility] Comment on above: Performed By: #### A MY, CMP, LIPA ####[facility] Ow[address]uxcuce[address] [place] [address]Dr. Tami Merirll URINE MICROSCOPIC ONLYon BACTERIA NONE SEEN Normal NONE SEEN [facility] Comment on above: Performed By: #### U MICRO, ERUR ####[facility] Kxs[address]sua[address] [place] [address]Dr. Tami Merrill Bacteria identified Cx Nom (U) NOT INDICATED Normal [facility] Comment on above: Performed By: #### U MICRO, ERUR ####[facility] [address]zhqbxpppi[address] [place], [place] [address]Dr. Tami Merrill CAST NONE SEEN Normal NONE SEEN [facility] Comment on above: Performed By: #### U MICRO, ERUR ####[facility] Xdonnftqgb[address] [place] [address]Dr. Tami Merrill Crystals LM Nom (Urine sed) NONE SEEN Normal NONE SEEN [facility] Comment on above: Performed By: #### U MICRO, ERUR ####[facility] Pszbmlgbsq5022 [place] [address]Dr. Tami Merrill Epithelial cells LM Ql (Urine sed) NONE SEEN Normal NONE SEEN /RARE [facility] Comment on above: Performed By: #### U MICRO, ERUR ####[facility] Cicdfxison[address] [place] [address]Dr. Tami Merrill MUCOUS NONE SEEN Normal NONE SEEN [facility] Comment on above: Performed By: #### U MICRO, ERUR ####[facility] T[address]nc[address]sh[address] [place] [address]Dr. Tami Merrill RBC 0-2 Normal 0-2 [facility] Comment on above: Performed By: #### U MICRO, ERUR ####[facility] V[address]zd[address]rha[address] [place] [address]Dr. Tami Merrill WBC NONE SEEN Normal NONE SEEN [facility] Comment on above: Performed By: #### U MICRO, ERUR ####[facility] [address]bxylmkwf[address] [place] [address]Dr. Tami Merrill METHYLMALONIC ACID (MMA)on 0 09-01-2022 Methylmalonic Acid, Serum 240 nmol/L Normal 0-378 [facility] Comment on above: Performed By: #### Baron MC HSTROPN #### [facility] [address] [place] [address] [address] Tami Merrill HOMOCYSTEINEon 08-28-2022 Homocyst(e)ine, Plasma 18.8 umol/L Critically high 0.0-17. 2 [facility] Comment on above: Performed By: #### Baron MC HSTROPN #### [facility] [address] [place] [address] Dr. Tami Merrill VIT B12 AND FOLATEon 023 Cobalamin (Vitamin B12) [Mass/Vol] 466.0 pg/mL Normal 193.0-986.0 [facility] Comment on above: Performed By: #### B JESUSITA, HSTROPN #### [facility] [address] [place], [place] [address] Dr. Tami Merrill FOLATE 12.70 ng/mL Normal 8.60-58.90 [facility] Comment on above: Performed By: #### B JESUSITA, HSTROPN #### [facility] [address] [place], [place] [address] Dr. Tami Merrill MRI FOOT RT WO [...] age appropriate. At the edge of the hqoyz-sx-snsz on the sagittal images there is evidence [...] cm. 2. At the edge of the igrhj-zj-eena there is evidence of a probable 1.2 cm osteochondral defect of the medial talar dome with a moderate amount of underlying bone marrow edema. The entirety of this finding is not included in the duhjh-ia-qrol. If it will change clinical management, an MRI of the ankle could be obtained for further evaluation. Electronically authenticated by: GHULAM LATIF Date: 2022-07-07 08:20 Normal [facility] PROF CHEM 8 (BAS METB)on Anion gap [Moles/Vol] 12.0 mmol/L Normal [facility] Comment on above: Performed By: #### B MP, HSTROPN #### [facility] [address] [place] [address] Dr. Tami Merrill Calcium [Mass/Vol] 8.9 mg/dL Normal 8.5-10.1 [facility] Comment on above: Performed By: #### B MP, HSTROPN #### [facility] [address] [place] [address] Dr. Tami Merrill Chloride [Moles/Vol] 103 mmol/L Normal 98-107 [facility] Comment on above: Performed By: #### B MP, HSTROPN #### [facility] [address] [place] [address] Dr. Tami Merrill CO2 [Moles/Vol] 28.4 mmol/L Normal 21.0-32.0 [facility] Comment on above: Performed By: #### B MP, HSTROPN #### [facility] [address] [place] [address] Dr. Tami Merrill Creatinine [Mass/Vol] 1.95 mg/dL Critically high 0.70-1.30 [facility] Comment on above: Performed By: #### B MP, HSTROPN #### [facility] [address] [place] [address] Dr. Tami Merrill EGFR-AF CHINESE 42 mL/min/1.73m2 Critically low >=60 [facility] Comment on above: Performed By: #### B MP, HSTROPN #### [facility] [address] [place] [address] Dr. Tami Merrill EGFR-NON AF CHINESE 34 mL/min/1.73m2 Critically low >=60 [facility] Comment on above: Performed By: #### B MP, HSTROPN #### [facility] [address] [place] [address] Dr. Tami Merrill Glucose [Mass/Vol] 127 mg/dL Critically high 74-106 [facility] Comment on above: Performed By: #### B JESUSITA, HSTROPN #### [facility] [address] [place] [address] [address] Tami Merrill Potassium [Moles/Vol] 4.4 mmol/L Normal 3.5-5.1 [facility] Comment on above: Performed By: #### B JESUSITA, HSTROPN #### [facility] [address] [place] [address] [address] Tami Merrill Sodium [Moles/Vol] 139 mmol/L Normal 136-145 [facility] Comment on above: Performed By: #### B JESUSITA, HSTROPN #### [facility] [address] [place] [address] [address] Tami Merrill Urea nitrogen [Mass/Vol] 33.0 mg/dL Critically high 7.0-18.0 [facility] Comment on above: Performed By: #### B JESUSITA, HSTROPN #### [facility] [address] [place] [address] [address] Tami Merrill Urea nitrogen/Creatinine [Mass ratio] 16.9 mg/mg Normal [facility] Comment on above: Performed By: #### B JESUSITA, HSTROPN #### [facility] [address] [place] [address] Dr. Tami Merrill Consultation Noteon 04-15-20 Consultation Note [id number] #1.00CD:127 Normal [facility] ED Note-Physicianon 04-15-20 ED Note-Physician [id number] #1.00CD:127 Normal [facility] ED Note-Physician [id number] #1.00CD:127 Normal [facility] Lab Reportson 04-15-2022 Lab Reports [id number] #1.00CD:127 Normal [facility] Lab Reports [id number] #1.00CD:127 Normal [facility] Lab Reports [id number] #1.00CD:127 Normal [facility] RAD - CT Reporton 04-15-2022 RAD - CT Report [id number] #1.00CD:127 Normal [facility] RAD - CT Report [id number] #1.00CD:127 Normal [facility] RAD - Ultrasound Reporton RAD - Ultrasound Report [id number] #1.00CD:127 Normal [facility] RAD - Ultrasound Report [id number] #1.00CD:127 Normal [facility] Screenson 04-15-2022 Screens [id number] #1.00CD:127 Normal [facility] Ambulatory Visit Summaryon 1 06-15-2021 Ambulatory Visit Summary MAURY ISSA Jann :1950 Visit Date:04/14/2022 Ambulatory Visit Instructions Your Diagnosis BPH with urinary obstruction Elevated PSA Bilateral varicoceles Renal cyst Tests Performed Urnls Dip Stick Auto w/o Microscopy POC 86533 US Renal -- Results Pending -- Please visit your patient portal for your results or contact your primary care physician. Your Care Team Attending Physician - Floridalma Heredia Primary Care Physician - MASON MEMBRENO MD This Is Your Medications List amlodipine apixaban [...] MD, Maury Albarran Where: [facility] Urology Office/Clinic Noteon 04-14-2022 Urology Office/Clinic Note Chief Complaint testicular pain and left lower abd pain (now resolved) HPI Staff Pt here today for recent testicular pain and left lower abd pain (now resolved). Had been evaluated at [facility] and by PCP. Was Tx'd w/ [...] 121 02/15/22. Proteinuria discussed w/ Pt. Sees single resource boss and scheduled to go next week (Dr. Honeycutt, [facility]). CT abd/pelvis W/O contrast 02/14/22: No [...] records from PCP. Pt reportedly went to [facility] and PCP for eval of his c (more content not included)... Normal [facility] Comment on above: Result Comment: Elec tronically Signed By: Michelle CHEN, Floridalma Bourne\.br\Date and Time Signed: 04/14/22 19:48 EST CULTURE URINEon 02-17-2022 CULTURE URINE Isolate 1 Escherichia coli >100,000 [...] F Trimethoprim/Sulfame thoxazole <=20 S F Normal [facility] Comment on above: Performed By: #### U RCX ####[facility] [address] [place] [address]Dr. Tami Garfield CBC AUTO DIFFon 02-15-2022 BASO # 0.0 103/ul Normal 0.0-0.1 [facility] Comment on above: Performed By: #### C BC ####[facility] [address]oc[address] [place], [place] [address]Dr. Tami Merrill Basophils/100 WBC (Bld) 0.3 % Normal 0.2-2.0 [facility] Comment on above: Performed By: #### C BC ####[facility] [address]so[address]cg[address] [place], [place] [address]Dr. Brittaniac Merrill EO # 0.2 103/ul Normal 0.0-0.7 [facility] Comment on above: Performed By: #### C BC ####[facility] Nxcmcibicd[address] [place], [place] [address]Dr. Brittaniac Merrill Eosinophils/100 WBC (Bld) 1.6 % Normal 0.9-7.0 [facility] Comment on above: Performed By: #### C BC ####[facility] [address]neo[address] [place], [place] [address]Dr. Tami Garfield Erythrocyte distribution width (RBC) [Ratio] 13.9 % Normal 11.0-15.0 [facility] Comment on above: Performed By: #### C BC ####[facility] [address] [place], [place] [address]Dr. Tami Garfield Hematocrit (Bld) [Volume fraction] 37.9 % Critically low 42.0-54.0 [facility] Comment on above: Performed By: #### C BC ####[facility] [address] [place] [id number]. Tami Merrill Hemoglobin (Bld) [Mass/Vol] 12.1 g/dL Critically low 14.0-18.0 [facility] Comment on above: Performed By: #### C BC ####[facility] [address]ss[address] [place] [address]Dr. Tami Merrill IG # 0.05 10e3/ul Critically high 0.00-0.03 [facility] Comment on above: Performed By: #### C BC ####[facility] [address] [place] [address]Dr. Tami Merrill IG % 0.4 % Normal 0.0-0.5 [facility] Comment on above: Performed By: #### C BC ####[facility] [address] [place] [address]Dr. Tami Merrill LYMPH # 1.6 103/ul Normal 1.2-3.8 [facility] Comment on above: Performed By: #### C BC ####[facility] [address]ftqmd[address] [place] [address]Dr. Tami Merrill Lymphocytes/100 WBC (Bld) 14.3 % Critically low 20.5-60.0 [facility] Comment on above: Performed By: #### C BC ####[facility] [address] [place] [address]Dr. Tami Merrill MANUAL DIFF REQ NO Normal [facility] Comment on above: Performed By: #### C BC ####[facility] [address] [place], [place] [address]Dr. Tami Merrill MCH (RBC) [Entitic mass] 26.7 pg Normal 25.9-34.0 [facility] Comment on above: Performed By: #### C BC ####[facility] [address] [place], [place] [address]Dr. Tami Merrill MCHC (RBC) [Mass/Vol] 31.9 g/dL Normal 29.9-35.2 [facility] Comment on above: Performed By: #### C BC ####[facility] [address] [place] [id number]. Tami Merrill MCV (RBC) [Entitic vol] 83.7 fL Normal 80.0-94.0 [facility] Comment on above: Performed By: #### C BC ####[facility] Tlxcatxyhq[address] [place] [id number]. Tami Merrill MONO # 1.1 103/ul Critically high 0.3-0.8 [facility] Comment on above: Performed By: #### C BC ####[facility] Qltfffnaei[address] [place] [phone]. Tami Merrill Monocytes/100 WBC (Bld) 9.5 % Normal 1.7-12.0 [facility] Comment on above: Performed By: #### C BC ####[facility] [address] [place] [phone]. Tami Merrill NEUT # 8.5 103/ul Critically high 1.4-6.5 [facility] Comment on above: Performed By: #### C BC ####[facility] L[address]rdvxmbnc[address] [place] [id number]. Tami Merrill Neutrophils/100 WBC (Bld) 73.9 % Normal 43.0-75.0 [facility] Comment on above: Performed By: #### C BC ####[facility] E[address]wb[address]rbs[address] [place] [phone]. Tami Merrill Platelet mean volume (Bld) [Entitic vol] 10.3 fL Normal 9.5-13.5 [facility] Comment on above: Performed By: #### C BC ####[facility] Qidblsahpc[address] [place] [id number]. Tami Merrill PLT 137 103/ul Critically low 150-450 [facility] Comment on above: Performed By: #### C BC ####[facility] [address] [place], [place] [id number]. Tami Merrill RBC 4.53 106/ul Critically low 4.70-6.10 [facility] Comment on above: Performed By: #### C BC ####[facility] [address] [place], [place] [address]GfDr. Tami Merrill WBC 11.5 103/ul Critically high 4.0-11.0 [facility] Comment on above: Performed By: #### C BC ####[facility] [address] [place], [place] [address]HsDr. Tami Merrill CULTURE URINEon 02-15-2022 CULTURE URINE Culture Observations: NO GROWTH. Normal [facility] Comment on above: Performed By: #### U RCX ####[facility] [address] [place], [place] [address]SsDr. Tami Merrill POINT OF CARE GLUCOSEon 02-06 Glucose [Mass/Vol] 135 mg/dL Critically high 74-106 [facility] Comment on above: Performed By: #### B JESUSITA HSTROPN #### [facility] [address] [place] [address] [address] Tami Merrill Glucose [Mass/Vol] 133 mg/dL Critically high 74-106 [facility] Comment on above: Performed By: #### P OCGLUC #### [facility] [address] [place] [address] [address] Tami Merrill PROF 14(COMP METB)on 022 Albumin [Mass/Vol] 3.4 g/dL Normal 3.4-5.0 [facility] Comment on above: Performed By: #### B JESUSITA HSTROPN #### [facility] [address] [place] [address] [address] Tami Merrill Albumin/Globulin [Mass ratio] 1.0 {ratio} Normal [facility] Comment on above: Performed By: #### B JESUSITA HSTROPN #### [facility] [address] [place] [address] [address] Tami Merrill ALP [Catalytic activity/Vol] 40 U/L Critically low 46-116 [facility] Comment on above: Performed By: #### B JESUSITA, HSTROPN #### [facility] [address] [place] [address] [address] Tami Merrill ALT [Catalytic activity/Vol] 21 U/L Normal 16-63 [facility] Comment on above: Performed By: #### B JSEUSITA, HSTROPN #### [facility] [address] [place] [address] Dr. Tami Merrill Anion gap [Moles/Vol] 10.7 mmol/L Normal [facility] Comment on above: Performed By: #### B JESUSITA, HSTROPN #### [facility] [address] [place] [address] Dr. Tami Merrill AST [Catalytic activity/Vol] 12 U/L Critically low 15-37 [facility] Comment on above: Performed By: #### B JESUSITA, HSTROPN #### [facility] [address] [place] [address] Dr. Tami Merrill Bilirubin [Mass/Vol] 0.5 mg/dL Normal 0.2-1.0 [facility] Comment on above: Performed By: #### B JESUSITA, HSTROPN #### [facility] [address] [place] [address] Dr. Tami Merrill Calcium [Mass/Vol] 8.3 mg/dL Critically low 8.5-10.1 [facility] Comment on above: Performed By: #### B JESUSITA, HSTROPN #### [facility] [address] [place] [address] Dr. Tami Merrill Chloride [Moles/Vol] 103 mmol/L Normal 98-107 [facility] Comment on above: Performed By: #### B JESUSITA, HSTROPN #### [facility] [address] [place] [address] Dr. Tami Merrill CO2 [Moles/Vol] 29.1 mmol/L Normal 21.0-32.0 [facility] Comment on above: Performed By: #### B JESUSITA, HSTROPN #### [facility] [address] [place] [address] Dr. Tami Merrill Creatinine [Mass/Vol] 1.99 mg/dL Critically high 0.70-1.30 [facility] Comment on above: Performed By: #### B JESUSITA, HSTROPN #### [facility] [address] [place] [address] [address] Tami Merrill EGFR-AF CHINESE 41 mL/min/1.73m2 Critically low >=60 [facility] Comment on above: Performed By: #### B MP, HSTROPN #### [facility] [address] [place] [address] [address] Tami Merrill EGFR-NON AF CHINESE 33 mL/min/1.73m2 Critically low >=60 [facility] Comment on above: Performed By: #### B MP, HSTROPN #### [facility] [address] [place] [address] [address] Tami Merrill Globulin (S) [Mass/Vol] 3.3 g/dL Normal [facility] Comment on above: Performed By: #### B MP, HSTROPN #### [facility] [address] [place] [address] [address] Tami Merrill Glucose [Mass/Vol] 121 mg/dL Critically high 74-106 [facility] Comment on above: Performed By: #### B MP, HSTROPN #### [facility] [address] [place] [address] [address] Tami Merrill Potassium [Moles/Vol] 3.8 mmol/L Normal 3.5-5.1 [facility] Comment on above: Performed By: #### B MP, HSTROPN #### [facility] [address] [place] [address] [address] Tami Merrill Protein [Mass/Vol] 6.7 g/dL Normal 6.4-8.2 [facility] Comment on above: Performed By: #### B MP, HSTROPN #### [facility] [address] [place] [address] [address] Tami Merrill Sodium [Moles/Vol] 139 mmol/L Normal 136-145 [facility] Comment on above: Performed By: #### B MP, HSTROPN #### [facility] [address] [place] [address] [address] Tami Merrill Urea nitrogen [Mass/Vol] 39.0 mg/dL Critically high 7.0-18.0 [facility] Comment on above: Performed By: #### B JESUSITA HSTROPN #### [facility] [address] [place] [address] [address] Tami Merrill Urea nitrogen/Creatinine [Mass ratio] 19.6 mg/mg Normal [facility] Comment on above: Performed By: #### B JESUSITA HSTROPN #### [facility] [address] [place] [address] [address] Tami Merrill SED RATE WESTERGRENon 2021 SED RATE 17 mm/hr Normal <=20 [facility] Comment on above: Performed By: #### B RJ MCTRJOSEN #### [facility] [address] [place] [address] Dr. Tami Merrill CBC AUTO DIFFon 02-14-2022 BASO # 0.0 103/ul Normal 0.0-0.1 [facility] Comment on above: Performed By: #### C BC ####[facility] [address] [place] [address]DrFlorentin Merrill Basophils/100 WBC (Bld) 0.3 % Normal 0.2-2.0 [facility] Comment on above: Performed By: #### C BC ####[facility] [address]zt[address] [place] [address]DrFlorentin Merrill EO # 0.2 103/ul Normal 0.0-0.7 [facility] Comment on above: Performed By: #### C BC ####[facility] [address] [place] [address]DrFlorentin Merrill Eosinophils/100 WBC (Bld) 1.4 % Normal 0.9-7.0 [facility] Comment on above: Performed By: #### C BC ####[facility] Z[address]hzclld[address] [place] [address]DrFlorentin Merrill Erythrocyte distribution width (RBC) [Ratio] 13.8 % Normal 11.0-15.0 [facility] Comment on above: Performed By: #### C BC ####[facility] [address]yl[address] [place] [address]Dr. Tami Merrill Hematocrit (Bld) [Volume fraction] 40.4 % Critically low 42.0-54.0 [facility] Comment on above: Performed By: #### C BC ####[facility] [address]hayk[address] [place] [id number]. Tami Garfield Hemoglobin (Bld) [Mass/Vol] 13.4 g/dL Critically low 14.0-18.0 [facility] Comment on above: Performed By: #### C BC ####[facility] B[address]ctwwbwdt[address] [place] [id number]. Tami Merrill IG # 0.06 10e3/ul Critically high 0.00-0.03 [facility] Comment on above: Performed By: #### C BC ####[facility] [address]fghy[address] [place] [address]Dr. Tami Merrill IG % 0.5 % Normal 0.0-0.5 [facility] Comment on above: Performed By: #### C BC ####[facility] R[address]iz[address] [place] [address]Dr. Tami Merrill LYMPH # 1.5 103/ul Normal 1.2-3.8 [facility] Comment on above: Performed By: #### C BC ####[facility] Qykzetlxix[address] [place] [address]Dr. Tami Merrill Lymphocytes/100 WBC (Bld) 12.6 % Critically low 20.5-60.0 [facility] Comment on above: Performed By: #### C BC ####[facility] Ashys[address]qbx[address] [place] [id number]. Tami Merrill MANUAL DIFF REQ NO Normal [facility] Comment on above: Performed By: #### C BC ####[facility] [address]xq[address] [place] [address]Dr. Brittaniac Merrill MCH (RBC) [Entitic mass] 27.1 pg Normal 25.9-34.0 [facility] Comment on above: Performed By: #### C BC ####[facility] Y[address]hrkwahu[address] [place] [phone]. Tami Merrill MCHC (RBC) [Mass/Vol] 33.2 g/dL Normal 29.9-35.2 [facility] Comment on above: Performed By: #### C BC ####[facility] [address] [place] [phone]. Tami Merrill MCV (RBC) [Entitic vol] 81.8 fL Normal 80.0-94.0 [facility] Comment on above: Performed By: #### C BC ####[facility] [address]ripjktfx[address] [place] [phone]. Tami Garfield MONO # 0.9 103/ul Critically high 0.3-0.8 [facility] Comment on above: Performed By: #### C BC ####[facility] [address]wtakwb[address] [place] [address]Dr. Tami Merrill Monocytes/100 WBC (Bld) 7.7 % Normal 1.7-12.0 [facility] Comment on above: Performed By: #### C BC ####[facility] X[address]uc[address] [place] [address]Dr. Brittaniac Garfield NEUT # 9.2 103/ul Critically high 1.4-6.5 [facility] Comment on above: Performed By: #### C BC ####[facility] Xaxilpqdyh[address] [place] [id number]. Tami Merrill Neutrophils/100 WBC (Bld) 77.5 % Critically high 43.0-75.0 [facility] Comment on above: Performed By: #### C BC ####[facility] G[address]pr[address]zjl[address] [place] [phone]. Tami Merrill Platelet mean volume (Bld) [Entitic vol] 10.0 fL Normal 9.5-13.5 [facility] Comment on above: Performed By: #### C BC ####[facility] Uecadmrteh[address] [place] [phone]. Tami Merrill PLT 176 103/ul Normal 150-450 [facility] Comment on above: Performed By: #### C BC ####[facility] [address] [place], [place] [address]So. Tami Merrill RBC 4.94 106/ul Normal 4.70-6.10 [facility] Comment on above: Performed By: #### C BC ####[facility] [address]je[address] [place], [place] [address]LuFlorentin Merrill WBC 11.9 103/ul Critically high 4.0-11.0 [facility] Comment on above: Performed By: #### C BC ####[facility] [address]ns[address] [place], [place] [address]Hx. Tami Merr[address] CT ABD/PELVIS WO CONon 02-14 [...] JUAREZ KERR Date: 2022-02-14 21:26 Normal [facility] Covid-19 PCR (CVDTBH)on SARS-CoV-2 (COVID-19) RNA GALLO+probe Ql (Unsp spec) Not detected Normal NOT DETECTED [facility] Comment on above: Result Comment: When diagnostic [...] for this test is supported by the [employer] Manager of Health and Human Service's declaration that [...] Performed By: #### B JESUSITA, HSTROPN #### [facility] [address] [place] [address] Dr. Tami Merrill ER URINE PROFILEon 2 Bilirubin Ql (U) Negative Normal NEGATIVE [facility] Comment on above: Performed By: #### B JESUSITA, HSTROPN #### [facility] [address] [place] [address] Dr. Tami Merrill Clarity (U) CLEAR Normal CLEAR [facility] Comment on above: Performed By: #### B JESUSITA, HSTROPN #### [facility] [address] [place] [address] Dr. Tami Merrill Color (U) LT. YELLOW Normal YELLOW [facility] Comment on above: Performed By: #### B JESUSITA, HSTROPN #### [facility] [address] [place] [address] Dr. Tami Merrill ERUAHD A micrscopic examination will be performed if indicated. Normal [facility] Comment on above: Performed By: #### B JESUSITA, HSTROPN #### [facility] [address] [place] [address] [address] Tami Merrill Glucose Ql (U) >1000 Abnormal NEGATIVE [facility] Comment on above: Performed By: #### B MP, HSTROPN #### [facility] [address] [place] [address] Dr. Tami Merrill Hemoglobin Ql (U) TRACE-INTACT Abnormal NEGATIVE [facility] Comment on above: Performed By: #### B MP, HSTROPN #### [facility] [address] [place] [address] Dr. Tami Merrill Ketones Ql (U) Negative Normal NEGATIVE [facility] Comment on above: Performed By: #### B MP, HSTROPN #### [facility] [address] [place] [address] Dr. Tami Merrill LEUKOCYTES TRACE Abnormal NEGATIVE [facility] Comment on above: Performed By: #### B MP, HSTROPN #### [facility] [address] [place] [address] Dr. Tami Merrill Nitrite Ql (U) Positive Abnormal NEGATIVE [facility] Comment on above: Performed By: #### B MP, HSTROPN #### [facility] [address] [place] [address] Dr. Tami Merrill pH (U) 6.0 [pH] Normal 5-9 [facility] Comment on above: Performed By: #### B MP, HSTROPN #### [facility] [address] [place] [address] Dr. Tami Merrill SPEC GRAVITY 1.015 Normal 1.005-<=1.02 5 [facility] Comment on above: Performed By: #### B MP, HSTROPN #### [facility] [address] [place] [address] Dr. Tami Merrill UA PROTEIN TRACE Normal NEGATIVE/ TRACE [facility] Comment on above: Performed By: #### B MP, HSTROPN #### [facility] [address] [place] [address] Dr. Tami Merrill UR MICRO IND INDICATED Normal [facility] Comment on above: Performed By: #### B MP, HSTROPN #### [facility] [address] [place] [address] Dr. Tami Merrill Urobilinogen Qn (U) 0.2 {Angela'U}/dL Normal 0.2 - 1. 0 [facility] Comment on above: Performed By: #### B JESUSITA, HSTROPN #### [facility] [address] [place] [address] Dr. Tami Merrill LACTATE/LACTIC ACIDon 2021 Lactate [Moles/Vol] 0.9 mmol/L Normal 0.4-1.9 [facility] Comment on above: Performed By: #### L ACT #### [facility] [address] [place] [address] Dr. Tami Merrill POINT OF CARE GLUCOSEon Glucose [Mass/Vol] 101 mg/dL Normal 74-106 [facility] Comment on above: Performed By: #### B JESUSITA, HSTROPN #### [facility] [address] [place] [address] Dr. Tami Merrill PROF 14(COMP METB)on 022 Albumin [Mass/Vol] 3.6 g/dL Normal 3.4-5.0 [facility] Comment on above: Performed By: #### B JESUSITA, HSTROPN #### [facility] [address] [place] [address] Dr. Tami Merrill Albumin/Globulin [Mass ratio] 0.9 {ratio} Normal [facility] Comment on above: Performed By: #### B JESUSITA, HSTROPN #### [facility] [address] [place] [address] Dr. Tami Merrill ALP [Catalytic activity/Vol] 51 U/L Normal 46-116 [facility] Comment on above: Performed By: #### B JESUSITA, HSTROPN #### [facility] [address] [place] [address] Dr. Tami Merrill ALT [Catalytic activity/Vol] 25 U/L Normal 16-63 [facility] Comment on above: Performed By: #### B JESUSITA, HSTROPN #### [facility] [address] [place] [address] [address] Tami Merrill Anion gap [Moles/Vol] 13.8 mmol/L Normal [facility] Comment on above: Performed By: #### B MP, HSTROPN #### [facility] [address] [place] [address] [address] Tami Merrill AST [Catalytic activity/Vol] 12 U/L Critically low 15-37 [facility] Comment on above: Performed By: #### B MP, HSTROPN #### [facility] [address] [place] [address] Dr. Tami Merrill Bilirubin [Mass/Vol] 0.4 mg/dL Normal 0.2-1.0 [facility] Comment on above: Performed By: #### B MP, HSTROPN #### [facility] [address] [place] [address] Dr. Tami Merrill Calcium [Mass/Vol] 8.4 mg/dL Critically low 8.5-10.1 [facility] Comment on above: Performed By: #### B MP, HSTROPN #### [facility] [address] [place] [address] Dr. Tami Merrill Chloride [Moles/Vol] 104 mmol/L Normal 98-107 [facility] Comment on above: Performed By: #### B MP, HSTROPN #### [facility] [address] [place] [address] [address] Tami Merrill CO2 [Moles/Vol] 25.1 mmol/L Normal 21.0-32.0 [facility] Comment on above: Performed By: #### B MP, HSTROPN #### [facility] [address] [place] [address] Dr. Tami Merrill Creatinine [Mass/Vol] 2.00 mg/dL Critically high 0.70-1.30 [facility] Comment on above: Performed By: #### B MP, HSTROPN #### [facility] [address] [place] [address] Dr. Tami Merrill EGFR-AF CHINESE 40 mL/min/1.73m2 Critically low >=60 [facility] Comment on above: Performed By: #### B JESUSITA, HSTROPN #### [facility] [address] [place] [address] Dr. Tami Merrill EGFR-NON AF CHINESE 33 mL/min/1.73m2 Critically low >=60 [facility] Comment on above: Performed By: #### B JESUSITA, HSTROPN #### [facility] [address] [place] [address] Dr. Tami Merrill Globulin (S) [Mass/Vol] 3.8 g/dL Normal [facility] Comment on above: Performed By: #### B JESUSITA, HSTROPN #### [facility] [address] [place] [address] Dr. Tami Merrill Glucose [Mass/Vol] 147 mg/dL Critically high 74-106 [facility] Comment on above: Performed By: #### B JESUSITA, HSTROPN #### [facility] [address] [place] [address] Dr. Tami Merrill Potassium [Moles/Vol] 3.9 mmol/L Normal 3.5-5.1 [facility] Comment on above: Performed By: #### B JESUSITA, HSTROPN #### [facility] [address] [place] [address] Dr. Tami Merrill Protein [Mass/Vol] 7.4 g/dL Normal 6.4-8.2 [facility] Comment on above: Performed By: #### B JESUSITA, HSTROPN #### [facility] [address] [place] [address] Dr. Tami Merrill Sodium [Moles/Vol] 139 mmol/L Normal 136-145 [facility] Comment on above: Performed By: #### B JESUSITA, HSTROPN #### [facility] [address] [place] [address] Dr. Tami Merrill Urea nitrogen [Mass/Vol] 39.0 mg/dL Critically high 7.0-18.0 [facility] Comment on above: Performed By: #### B JESUSITA, HSTROPN #### [facility] [address] [address] [address] Tami Merrill Urea nitrogen/Creatinine [Mass ratio] 19.5 mg/mg Normal [facility] Comment on above: Performed By: #### B MP, HSTROPN #### [facility] [address] [address] [address] Tami Merrill PROTIMEon 02-14-2022 INR Coag (PPP) [Relative time] 1.01 {INR} Normal [facility] Comment on above: Performed By: #### P TT, PT ####[facility] [address] [place] [address]Dr. Tami Merrill INR GUIDELINES SEE BELOW Normal [facility] Comment on above: Result Comment: SEN RED INR: 2.0 - 3.0 CONDITIONS NOT LISTED BELOW 2.5 - 3.5 FOR PROSTHETIC HEART VALVE REPLACEMENT 2.5 - 3.5 RECURRENT THROMBOSIS Performed By: #### P TT, PT ####[facility] [address] [place] [address]Dr. Tami Merrill PT Coag (PPP) [Time] 10.9 s Normal 9.0-11.6 [facility] Comment on above: Performed By: #### P TT, PT ####[facility] [address] [place] [address]Dr. Tami Merrill PTTon 02-14-2022 aPTT Coag (Bld) [Time] 26.5 s Normal 22.3-36.2 [facility] Comment on above: Performed By: #### P TT, PT ####[facility] [address] [place] [address]DrFlorentin Merrill URINE MICROSCOPIC ONLYon BACTERIA LARGE Abnormal NONE SEEN [facility] Comment on above: Performed By: #### B MP, HSTROPN #### [facility] [address] [address] [address] Tami Merrill Bacteria identified Cx Nom (U) INDICATED Normal [facility] Comment on above: Performed By: #### B MP, HSTROPN #### [facility] [address] [place] [address] Dr. Tami Merrill CAST NONE SEEN Normal NONE SEEN [facility] Comment on above: Performed By: #### B MP, HSTROPN #### [facility] [address] [place] [address] Dr. Tami Merrill Crystals LM Nom (Urine sed) NONE SEEN Normal NONE SEEN [facility] Comment on above: Performed By: #### B MP, HSTROPN #### [facility] [address] [place] [address] Dr. Tami Merrill Epithelial cells LM Ql (Urine sed) RARE Normal NONE SEEN /RARE [facility] Comment on above: Performed By: #### B MP, HSTROPN #### [facility] [address] [place] [address] Dr. Tami Merrill MUCOUS NONE SEEN Normal NONE SEEN [facility] Comment on above: Performed By: #### B JESUSITA, HSTROPN #### [facility] [address] [place] [address] Dr. Tami Merrill RBC 2-5 Abnormal 0-2 [facility] Comment on above: Performed By: #### B JESUSITA, HSTROPN #### [facility] [address] [place] [address] Dr. Tami Merrill WBC 75-100 Abnormal NONE SEEN [facility] Comment on above: Performed By: #### B JESUSITA, HSTROPN #### [facility] [address] [place] [address] Dr. Tami Merrill US SCROTUM W VASCULAR [...] SHARMIN WILKERSON Date: 2022-02-14 19:40 Normal [facility] CBC AUTO DIFFon 11-19-2021 BASO # 0.0 103/ul Normal 0.0-0.1 [facility] Comment on above: Performed By: #### B JESUSITA HSTROPN #### [facility] [address] [place] [address] Dr. Tami Merrill Basophils/100 WBC (Bld) 0.4 % Normal 0.2-2.0 [facility] Comment on above: Performed By: #### B JESUSITA, HSTROPN #### [facility] [address] [place] [address] Dr. Tami Merrill EO # 0.2 103/ul Normal 0.0-0.7 [facility] Comment on above: Performed By: #### B JESUSITA HSTROPN #### [facility] [address] [place] [address] Dr. Tami Merrill Eosinophils/100 WBC (Bld) 2.8 % Normal 0.9-7.0 [facility] Comment on above: Performed By: #### B JESUSITA HSTROPN #### [facility] [address] [place] [address] Dr. Tami Merrill Erythrocyte distribution width (RBC) [Ratio] 14.5 % Normal 11.0-15.0 [facility] Comment on above: Performed By: #### B JESUSITA, HSTROPN #### [facility] [address] [place] [address] Dr. Tami Merrill Hematocrit (Bld) [Volume fraction] 36.2 % Critically low 42.0-54.0 [facility] Comment on above: Performed By: #### B JESUSITA, HSTROPN #### [facility] [address] [place] [address] Dr. Tami Merrill Hemoglobin (Bld) [Mass/Vol] 11.9 g/dL Critically low 14.0-18.0 [facility] Comment on above: Performed By: #### B MP, HSTROPN #### [facility] [address] [address] [address] Tami Merrill IG # 0.02 10e3/ul Normal 0.00-0.03 [facility] Comment on above: Performed By: #### B MP, HSTROPN #### [facility] [address] [address] [address] Tami Merrill IG % 0.3 % Normal 0.0-0.5 [facility] Comment on above: Performed By: #### B MP, HSTROPN #### [facility] [address] [address] [address] Tami Merrill LYMPH # 1.2 103/ul Normal 1.2-3.8 [facility] Comment on above: Performed By: #### B MP, HSTROPN #### [facility] [address] [place] [address] Dr. Tami Merrill Lymphocytes/100 WBC (Bld) 16.6 % Critically low 20.5-60.0 [facility] Comment on above: Performed By: #### B MP, HSTROPN #### [facility] [address] [address] [address] Tami Merrill MANUAL DIFF REQ NO Normal [facility] Comment on above: Performed By: #### B MP, HSTROPN #### [facility] [address] [address] [address] Tami Merrill MCH (RBC) [Entitic mass] 27.0 pg Normal 25.9-34.0 [facility] Comment on above: Performed By: #### B MP, HSTROPN #### [facility] [address] [address] [address] Tami Merrill MCHC (RBC) [Mass/Vol] 32.9 g/dL Normal 29.9-35.2 [facility] Comment on above: Performed By: #### B MP, HSTROPN #### [facility] [address] [place] [address] Dr. Tami Merrill MCV (RBC) [Entitic vol] 82.3 fL Normal 80.0-94.0 [facility] Comment on above: Performed By: #### B JESUSITA, HSTROPN #### [facility] [address] [place] [address] Dr. Tami Merrill MONO # 0.7 103/ul Normal 0.3-0.8 [facility] Comment on above: Performed By: #### B JESUSITA, HSTROPN #### [facility] [address] [place] [address] Dr. Tami Merrill Monocytes/100 WBC (Bld) 9.1 % Normal 1.7-12.0 [facility] Comment on above: Performed By: #### B JESUSITA, HSTROPN #### [facility] [address] [place] [address] Dr. Tami Merrill NEUT # 5.0 103/ul Normal 1.4-6.5 [facility] Comment on above: Performed By: #### B JESUSITA, HSTROPN #### [facility] [address] [place] [address] Dr. Tami Merrill Neutrophils/100 WBC (Bld) 70.8 % Normal 43.0-75.0 [facility] Comment on above: Performed By: #### B JESUSITA, HSTROPN #### [facility] [address] [place] [address] Dr. Tami Merrill Platelet mean volume (Bld) [Entitic vol] 9.8 fL Normal 9.5-13.5 [facility] Comment on above: Performed By: #### B JESUSITA, HSTROPN #### [facility] [address] [place] [address] Dr. Tami Merrill PLT 143 103/ul Critically low 150-450 [facility] Comment on above: Performed By: #### B JESUSITA, HSTROPN #### [facility] [address] [place] [address] Dr. Tami Merrill RBC 4.40 106/ul Critically low 4.70-6.10 [facility] Comment on above: Performed By: #### B JESUSITA, HSTROPN #### [facility] [address] [address] [address] Tami Merrill WBC 7.1 103/ul Normal 4.0-11.0 [facility] Comment on above: Performed By: #### B RJ MCTRHERIBERTO #### [facility] [address] [address] [address] Tami Merrill Covid-19 PCR (CVDTB)on 11-06 SARS-CoV-2 (COVID-19) RNA GALLO+probe Ql (Unsp spec) Not detected Normal NOT DETECTED [facility] Comment on above: Result Comment: When diagnostic [...] for this test is supported by the [place] of Health and Human Service's declaration that [...] be used). Performed By: #### C VDTBH ####[facility] [address] [address]Dr. Tami Merrill PROF 14(COMP METB)on 022 Albumin [Mass/Vol] 3.3 g/dL Critically low 3.4-5.0 [facility] Comment on above: Performed By: #### B RJ MCTRHERIBERTO #### [facility] [address] [address] [address] Tami Merrill Albumin/Globulin [Mass ratio] 1.0 {ratio} Normal [facility] Comment on above: Performed By: #### B RJ MCTROPN #### [facility] [address] [address] [address] Tami Merrill ALP [Catalytic activity/Vol] 37 U/L Critically low 46-116 [facility] Comment on above: Performed By: #### B JESUSITA, HSTROPN #### [facility] [address] [place] [address] Dr. Tami Merrill ALT [Catalytic activity/Vol] 21 U/L Normal 16-63 [facility] Comment on above: Performed By: #### B JESUSITA, HSTROPN #### [facility] [address] [place] [address] Dr. Tami Merrill Anion gap [Moles/Vol] 14.0 mmol/L Normal [facility] Comment on above: Performed By: #### B JESUSITA, HSTROPN #### [facility] [address] [place] [address] Dr. Tami Merrill AST [Catalytic activity/Vol] 14 U/L Critically low 15-37 [facility] Comment on above: Performed By: #### B JESUSITA, HSTROPN #### [facility] [address] [place] [address] Dr. Tami Merrill Bilirubin [Mass/Vol] 0.4 mg/dL Normal 0.2-1.0 [facility] Comment on above: Performed By: #### B JESUSITA, HSTROPN #### [facility] [address] [place] [address] Dr. Tami Merrill Calcium [Mass/Vol] 8.6 mg/dL Normal 8.5-10.1 [facility] Comment on above: Performed By: #### B JESUSITA, HSTROPN #### [facility] [address] [place] [address] Dr. Tami Merrill Chloride [Moles/Vol] 107 mmol/L Normal 98-107 [facility] Comment on above: Performed By: #### B JESUSITA, HSTROPN #### [facility] [address] [place] [address] Dr. Tami Merrill CO2 [Moles/Vol] 22.2 mmol/L Normal 21.0-32.0 [facility] Comment on above: Performed By: #### B MP, HSTROPN #### [facility] [address] [place] [address] Dr. Tami Merrill Creatinine [Mass/Vol] 2.32 mg/dL Critically high 0.70-1.30 [facility] Comment on above: Performed By: #### B MP, HSTROPN #### [facility] [address] [place] [address] Dr. Tami Merrill EGFR-AF CHINESE 34 mL/min/1.73m2 Critically low >=60 [facility] Comment on above: Performed By: #### B MP, HSTROPN #### [facility] [address] [place] [address] Dr. Tami Merrill EGFR-NON AF CHINESE 28 mL/min/1.73m2 Critically low >=60 [facility] Comment on above: Performed By: #### B MP, HSTROPN #### [facility] [address] [place] [address] Dr. Tami Merrill Globulin (S) [Mass/Vol] 3.4 g/dL Normal [facility] Comment on above: Performed By: #### B MP, HSTROPN #### [facility] [address] [place] [address] Dr. Tami Merrill Glucose [Mass/Vol] 114 mg/dL Critically high 74-106 [facility] Comment on above: Performed By: #### B MP, HSTROPN #### [facility] [address] [place] [address] Dr. Tami Merrill Potassium [Moles/Vol] 4.2 mmol/L Normal 3.5-5.1 [facility] Comment on above: Performed By: #### B MP, HSTROPN #### [facility] [address] [place] [address] Dr. Tami Merrill Protein [Mass/Vol] 6.7 g/dL Normal 6.4-8.2 [facility] Comment on above: Performed By: #### B MP, HSTROPN #### [facility] [address] [place] [address] Dr. Tami Merrill Sodium [Moles/Vol] 139 mmol/L Normal 136-145 [facility] Comment on above: Performed By: #### B JESUSITA, HSTROPN #### [facility] [address] [place] [address] Dr. Tami Merrill Urea nitrogen [Mass/Vol] 45.0 mg/dL Critically high 7.0-18.0 [facility] Comment on above: Performed By: #### B JESUSITA, HSTROPN #### [facility] [address] [place] [address] Dr. Tami Merrill Urea nitrogen/Creatinine [Mass ratio] 19.4 mg/mg Normal [facility] Comment on above: Performed By: #### B JESUSITA, HSTROPN #### [facility] [address] [place] [address] Dr. Tami Merrill TROPONIN, HIGH SENSITIVITYon 11-19-2021 HSTROP 11.1 pg/mL Normal 4.0-76.1 [facility] Comment on above: Result Comment: CUT- OFF POINTS HAVE BEEN ESTABLISHED BASED ON THE FOURTH UNIVERSAL DEFINITIONS OF MYOCARDIAL INFARCTION. THE UPPER REFERENCE LIMIT (URL) OF TROPONIN, DEFINED THE 99TH PERCENTILE OF cTnI DISTRIBUTION IN A REFERENCE POPULATION, HAS BEEN CONFIRMED THE DECISION THRESHOLD FOR [place] DIAGNOSIS. Performed By: #### B JESUSITA HSTROPN #### [facility] [address] [place] [address] Dr. Tami Merrill HSTROP 11.5 pg/mL Normal 4.0-76.1 [facility] Comment on above: Result Comment: CUT- OFF POINTS HAVE BEEN ESTABLISHED BASED ON THE FOURTH UNIVERSAL DEFINITIONS OF MYOCARDIAL INFARCTION. THE UPPER REFERENCE LIMIT (URL) OF TROPONIN, DEFINED THE 99TH PERCENTILE OF cTnI DISTRIBUTION IN A REFERENCE POPULATION, HAS BEEN CONFIRMED THE DECISION THRESHOLD FOR [place] DIAGNOSIS. Performed By: #### B JESUSITA, HSTROPN #### [facility] [address] [place] [address] Dr. Tami Merrill XR CHEST 1 Von [...] MAYITO DOVE Date: 2021-11-19 15:02 Normal [facility] PROF CHEM 8 (BAS METB)on Anion gap [Moles/Vol] 12.0 mmol/L Normal [facility] Comment on above: Performed By: #### B MP ####[facility] [address] [address]Dr. Tami Merrill Calcium [Mass/Vol] 8.6 mg/dL Normal 8.5-10.1 [facility] Comment on above: Performed By: #### B MP ####[facility] [address] [place], [place] [address]Dr. Tami Merrill Chloride [Moles/Vol] 108 mmol/L Critically high 98-107 [facility] Comment on above: Performed By: #### B MP ####[facility] [address] [place], [place] [address]Dr. Tami Merrill CO2 [Moles/Vol] 25.2 mmol/L Normal 21.0-32.0 [facility] Comment on above: Performed By: #### B MP ####[facility] [address] [place], [place] [address]Dr. Tami Merrill Creatinine [Mass/Vol] 2.40 mg/dL Critically high 0.70-1.30 [facility] Comment on above: Performed By: #### B MP ####[facility] [address] [place], [place] [address]Dr. Tami Merrill EGFR-AF CHINESE 33 mL/min/1.73m2 Critically low >=60 [facility] Comment on above: Performed By: #### B MP ####[facility] [address] [place], [place] [address]Dr. Tami Merrill EGFR-NON AF CHINESE 27 mL/min/1.73m2 Critically low >=60 [facility] Comment on above: Performed By: #### B MP ####[facility] [address] [address]Dr. Tami Merrill Glucose [Mass/Vol] 112 mg/dL Critically high 74-106 [facility] Comment on above: Performed By: #### B MP ####[facility] [address] [address]Dr. Tami Merrill Potassium [Moles/Vol] 4.2 mmol/L Normal 3.5-5.1 [facility] Comment on above: Performed By: #### B MP ####[facility] [address] [place], [place] [address]Dr. Tami Merrill Sodium [Moles/Vol] 141 mmol/L Normal 136-145 [facility] Comment on above: Performed By: #### B MP ####[facility] [address] [place], [place] [address]Dr. Tami Merrill Urea nitrogen [Mass/Vol] 45.0 mg/dL Critically high 7.0-18.0 [facility] Comment on above: Performed By: #### B MP ####[facility] [address] [place], [place] [address]Dr. Tami Merrill Urea nitrogen/Creatinine [Mass ratio] 18.8 mg/mg Normal [facility] Comment on above: Performed By: #### B MP ####[facility] [address] [place], [place] [address]Dr. Tami Merrill CBC AUTO DIFFon 11-01-2021 BASO # 0.0 103/ul Normal 0.0-0.1 [facility] Comment on above: Performed By: #### C BC ####[facility] [address] [place], [place] [address]Dr. Tami Merrill Basophils/100 WBC (Bld) 0.2 % Normal 0.2-2.0 [facility] Comment on above: Performed By: #### C BC ####[facility] [address] [place], [place] [address]Dr. Tami Merrill EO # 0.0 103/ul Normal 0.0-0.7 [facility] Comment on above: Performed By: #### C BC ####[facility] [address] [address]Dr. Tami Merrill Eosinophils/100 WBC (Bld) 0.0 % Critically low 0.9-7.0 [facility] Comment on above: Performed By: #### C BC ####[facility] [address] [place], [place] [address]Dr. Tami Merrill Erythrocyte distribution width (RBC) [Ratio] 13.8 % Normal 11.0-15.0 [facility] Comment on above: Performed By: #### C BC ####[facility] [address] [place], [place] [address]Dr. Tami Merrill Hematocrit (Bld) [Volume fraction] 34.9 % Critically low 42.0-54.0 [facility] Comment on above: Performed By: #### C BC ####[facility] [address] [place], [place] [address]Dr. Tami Merrill Hemoglobin (Bld) [Mass/Vol] 11.6 g/dL Critically low 14.0-18.0 [facility] Comment on above: Performed By: #### C BC ####[facility] [address] [place], [place] [address]Dr. Tami Merrill IG # 0.12 10e3/ul Critically high 0.00-0.03 [facility] Comment on above: Performed By: #### C BC ####[facility] [address] [place], [place] [address]Dr. Tami Merrill IG % 0.9 % Critically high 0.0-0.5 [facility] Comment on above: Performed By: #### C BC ####[facility] [address] [place], [place] [address]Dr. Tami Merrill LYMPH # 1.2 103/ul Normal 1.2-3.8 [facility] Comment on above: Performed By: #### C BC ####[facility] [address] [place], [place] [address]Dr. Tami Merrill Lymphocytes/100 WBC (Bld) 9.0 % Critically low 20.5-60.0 [facility] Comment on above: Performed By: #### C BC ####[facility] [address] [address]DrFlorentin Merrill MANUAL DIFF REQ NO Normal [facility] Comment on above: Performed By: #### C BC ####[facility] [address] [address]Dr. Tami Merrill MCH (RBC) [Entitic mass] 27.5 pg Normal 25.9-34.0 [facility] Comment on above: Performed By: #### C BC ####[facility] [address] [place], [place] [address]Dr. Tami Merrill MCHC (RBC) [Mass/Vol] 33.2 g/dL Normal 29.9-35.2 [facility] Comment on above: Performed By: #### C BC ####[facility] [address] [place], [place] [address]DrFlorentin Merrill MCV (RBC) [Entitic vol] 82.7 fL Normal 80.0-94.0 [facility] Comment on above: Performed By: #### C BC ####[facility] [address] [place], [place] [address]Dr. Tami Merrill MONO # 0.7 103/ul Normal 0.3-0.8 [facility] Comment on above: Performed By: #### C BC ####[facility] [address] [place], [place] [address]DrFlorentin Merrill Monocytes/100 WBC (Bld) 5.5 % Normal 1.7-12.0 [facility] Comment on above: Performed By: #### C BC ####[facility] [address] [place], [place] [address]DrFlorentin Merrill NEUT # 11.4 103/ul Critically high 1.4-6.5 [facility] Comment on above: Performed By: #### C BC ####[facility] [address] [place], [place] [address]Dr. Tami Merrill Neutrophils/100 WBC (Bld) 84.4 % Critically high 43.0-75.0 [facility] Comment on above: Performed By: #### C BC ####[facility] [address] [id number]. Tami Merrill Platelet mean volume (Bld) [Entitic vol] 9.9 fL Normal 9.5-13.5 [facility] Comment on above: Performed By: #### C BC ####[facility] [address] [id number] Merrill PLT 234 103/ul Normal 150-450 [facility] Comment on above: Performed By: #### C BC ####[facility] [address] [id number]. Tami Merrill RBC 4.22 106/ul Critically low 4.70-6.10 [facility] Comment on above: Performed By: #### C BC ####[facility] [address] [id number] Merrill WBC 13.5 103/ul Critically high 4.0-11.0 The [facility] Comment on above: Performed By: #### C BC ####[facility] [address] [id number]. Tami Merrill D-DIMERon 11-01-2021 D-DIMER 0.23 mg/L FEU Normal <=0.59 The [facility] Comment on above: Performed By: #### D DIM #### [facility] [id number] Tami Merrill D-DIMER COMMENTS SEE BELOW Normal The [facility] Comment on above: Result Comment: Incr eases [...] hospitalization. Performed By: #### D DIM #### [facility] [address] [place] [address] Dr. Tami Merrill PROF CHEM 8 (BAS METB)on Anion gap [Moles/Vol] 14.0 mmol/L Normal [facility] Comment on above: Performed By: #### B MP, HSTROPN #### [facility] [address] [place] [address] Dr. Tami Merrill Calcium [Mass/Vol] 8.6 mg/dL Normal 8.5-10.1 [facility] Comment on above: Performed By: #### B JESUSITA, HSTROPN #### [facility] [address] [place] [address] Dr. Tami Merrill Chloride [Moles/Vol] 107 mmol/L Normal 98-107 [facility] Comment on above: Performed By: #### B JESUSITA, HSTROPN #### [facility] [address] [place] [address] Dr. Tami Merrill CO2 [Moles/Vol] 23.4 mmol/L Normal 21.0-32.0 [facility] Comment on above: Performed By: #### B MP, HSTROPN #### [facility] [address] [place] [address] Dr. Tami Merrill Creatinine [Mass/Vol] 2.54 mg/dL Critically high 0.70-1.30 [facility] Comment on above: Performed By: #### B MP, HSTROPN #### [facility] [address] [place] [address] Dr. Tami Merrill EGFR-AF CHINESE 31 mL/min/1.73m2 Critically low >=60 [facility] Comment on above: Performed By: #### B MP, HSTROPN #### [facility] [address] [place] [address] Dr. Tami Merrill EGFR-NON AF CHINESE 25 mL/min/1.73m2 Critically low >=60 [facility] Comment on above: Performed By: #### B MP, HSTROPN #### [facility] [address] [address] [address] Tami Merrill Glucose [Mass/Vol] 180 mg/dL Critically high 74-106 [facility] Comment on above: Performed By: #### B MP, HSTROPN #### [facility] [address] [address] [address] Tami Merrill Potassium [Moles/Vol] 4.4 mmol/L Normal 3.5-5.1 [facility] Comment on above: Performed By: #### B MP, HSTROPN #### [facility] [address] [address] [address] Tami Merrill Sodium [Moles/Vol] 140 mmol/L Normal 136-145 [facility] Comment on above: Performed By: #### B MP, HSTROPN #### [facility] [address] [address] [address] Tami Merrill Urea nitrogen [Mass/Vol] 57.0 mg/dL Critically high 7.0-18.0 [facility] Comment on above: Performed By: #### B MP, HSTROPN #### [facility] [address] [address] [address] Tami Merrill Urea nitrogen/Creatinine [Mass ratio] 22.4 mg/mg Normal [facility] Comment on above: Performed By: #### B MP, HSTROPN #### [facility] [address] [address] [address] Tami Merrill TROPONIN, HIGH SENSITIVITYon 11-01-2021 HSTROP 10.5 pg/mL Normal 4.0-76.1 [facility] Comment on above: Result Comment: CUT- OFF POINTS HAVE BEEN ESTABLISHED BASED ON THE FOURTH UNIVERSAL DEFINITIONS OF MYOCARDIAL INFARCTION. THE UPPER REFERENCE LIMIT (URL) OF TROPONIN, DEFINED THE 99TH PERCENTILE OF cTnI DISTRIBUTION IN A REFERENCE POPULATION, HAS BEEN CONFIRMED THE DECISION THRESHOLD FOR [place] DIAGNOSIS. Performed By: #### B MP, HSTROPN #### [facility] [address] [address] [address] Tami Merrill HSTROP 11.2 pg/mL Normal 4.0-76.1 [facility] Comment on above: Result Comment: CUT- OFF POINTS HAVE BEEN ESTABLISHED BASED ON THE FOURTH UNIVERSAL DEFINITIONS OF MYOCARDIAL INFARCTION. THE UPPER REFERENCE LIMIT (URL) OF TROPONIN, DEFINED THE 99TH PERCENTILE OF cTnI DISTRIBUTION IN A REFERENCE POPULATION, HAS BEEN CONFIRMED THE DECISION THRESHOLD FOR [place] DIAGNOSIS. Performed By: #### B MP, HSTROPN #### [facility] [address] [address] [address] Tami Merrill XR CHEST 1 Von [...] MAYITO LOMBARDI Date: 2021-11-01 10:17 Normal [facility] CREATININE BLOODon 2 Creatinine [Mass/Vol] 1.65 mg/dL High 0.70-1.[address] [facility] Comment on above: Order Comment: No: D o not add to previous draw Performed By: #### 2 5656 #### [facility] [address] eGFR- 50 ml/min/1.73sq m Abnormal >[address] [facility] Comment on above: Order Comment: No: D o not add to previous draw Performed By: #### 2 5656 #### [facility] [address] [place] [address], [facility] eGFR- non- 42 ml/min/1.73sq m Abnormal >60 [facility] Comment on above: Order Comment: No: D o not add to previous draw Performed By: #### 2 5656 #### [facility] [address] [place] [id number], [facility] Cardiovascular Lab Reporton 10-22-2021 Cardiovascular Lab Report [facility] Patient Name: [facility] Maury Forte MR #: [id number] Department of Physician: Tomas Rajan MD Division of Service Date: 10/21/2021 Cardiology Birthdate: 1950 Adult Cardiovascular Room #: 3AB [id number] [facility] [address] [place] [address] Cardiovascular Laboratory Report OPERATORS: 1. Tomas Rajan [...] longer sheath to bypass the tortuosity. A 6-Australian Flexor 30 was inserted, and engagement was attempted again. Unfortunately, we had similar difficulty. At that point, it was decided to change the sheath out for a 6-Australian Shuttle 80. This was done over a wire. After placement of the 6-Australian Shuttle 80, an AL2 guide catheter was [...] ves (more content not included)... Normal The [facility] LIPID PROFILEon 10-22-2021 Cholesterol [Mass/Vol] 89 mg/dL Low 120-[address] [facility] Comment on above: Order Comment: Yes: Add to Previous draw if able Result Comment: CHOL ESTEROL REFERENCE RANGE: 20 YEARS AND OLDER CARDIOVASCULAR RISK Less than 200 mg/dl Low Risk 200 to 239 mg/dl Borderline Risk 240 mg/dl and greater High Risk Performed By: #### 9 [id number], [id number] #### [facility] [address] [place] [address], [place] Cholesterol in HDL [Mass/Vol] 19 mg/dL Low 23-[address] [facility] Comment on above: Order Comment: Yes: Add to Previous draw if able Result Comment: Slig ht variation in normal range could be due to gender and/or age. HDL CHOLESTEROL REFERENCE RANGE: 20 years and older Cardiovascular Risk > or =60 mg/dL Desirable 40 TO 59 mg/dL Low Risk <40 mg/dL High Risk Performed By: #### 9 [id number], [id number] #### [facility] [address] [place] [address], [place] Cholesterol in LDL [Mass/Vol] 35 mg/dL Normal 0-130 [facility] Comment on above: Order Comment: Yes: Add to Previous draw if able Result Comment: LDL IS A CALCULATION LDL IS ONLY VALID IF THE TRIG IS LESS THAN 400. Performed By: #### 9 [id number], [id number] #### [facility] [address] [place] [address], [place] Cholesterol.total/Destiny sterol in HDL [Mass ratio] 4.7 {ratio} High .0-4.[address] [facility] Comment on above: Order Comment: Yes: Add to Previous draw if able Performed By: #### 9 [id number], [id number] #### [facility] [address] [place] [address], [facility] NON-HDL CHOLESTEROL 70 mg/dL Normal [facility] Comment on above: Order Comment: Yes: Add to Previous draw if able Performed By: #### 9 [id number], [id number] #### [facility] [address] [place] [address], [facility] Triglyceride [Mass/Vol] 176 mg/dL High 40-[address] [facility] Comment on above: Order Comment: Yes: Add to Previous draw if able Result Comment: TRIG LYCERIDE REFERENCE RANGE: 20 YEARS AND OLDER CARDIOVASCULAR RISK LESS THAN 150 mg/dl LOW RISK 150 TO 199 mg/dl BORDERLINE RISK 200 mg/dl AND GREATER HIGH RISK Performed By: #### 9 [id number], [id number] #### [facility] [address] [place] [address], [facility] VLDL CHOL 35 mg/dL Normal 0-40 [facility] Comment on above: Order Comment: Yes: Add to Previous draw if able Performed By: #### 9 [id number], 80325 #### [facility] [address] [place] [address], [facility] LIVER BATTERYon 10-22-2021 Albumin [Mass/Vol] 3.8 g/dL Normal 3.5-5.7 [facility] Comment on above: Order Comment: Yes: Add to Previous draw if able Performed By: #### 9 [id number], 95737 #### [facility] [address] [place] [address], [facility] ALKALINE PHOSPH 44 IU/L Normal 34-104 [facility] Comment on above: Order Comment: Yes: Add to Previous draw if able Performed By: #### 9 [id number], 05632 #### [facility] [address] [place] [address], [facility] ALT [Catalytic activity/Vol] 18 U/L Normal 7-52 [facility] Comment on above: Order Comment: Yes: Add to Previous draw if able Performed By: #### 9 [id number], 02365 #### [facility] [address] [place] [address], [facility] AST [Catalytic activity/Vol] 13 U/L Normal 13-[address] [facility] Comment on above: Order Comment: Yes: Add to Previous draw if able Performed By: #### 9 99, 21124 #### [facility] [address] [place] [id number], [facility] Bilirubin [Mass/Vol] 0.5 mg/dL Normal 0.3-1.[address] [facility] Comment on above: Order Comment: Yes: Add to Previous draw if able Performed By: #### 9 99, 82119 #### [facility] [address] [place] [address], [facility] Bilirubin.direct [Mass/Vol] 0.1 mg/dL Normal 0.0-0.[address] [facility] Comment on above: Order Comment: Yes: Add to Previous draw if able Performed By: #### 9 99, 50996 #### [facility] [address] [place] [address], [facility] Protein [Mass/Vol] 6.0 g/dL Normal 6.0-8.3 [facility] Comment on above: Order Comment: Yes: Add to Previous draw if able Performed By: #### 9 [id number], 01767 #### [facility] [address] POC GLUCOSE LABon 10-22-2021 Glucose [Mass/Vol] 119 mg/dL High 70-100 [facility] Comment on above: Performed By: #### 8 [id number] #### [facility] [address] *SARS-CoV-2 COVID-19on 10-21 SARS-CoV-2 (COVID-19) RNA GALLO+probe Ql (Unsp spec) Not detected Normal Not Detected [facility] Comment on above: Order Comment: ORDER ED PER JIMMIE MARLEY RN AT 0031 The Aptima SARS-CoV-2 assay is a nucleic acid amplification test intended for the qualitative detection of RNA from SARS-CoV-2 isolated and purified from nasopharyngeal (VECTOR CONTROL ASSISTANT),oropharyngeal (OP), nasal swab, sputum, and bronchoalveolar lavage (BAL) specimens from patients with signs and symptoms of infection who are suspected of COVID-19. Results are for the identification of SARS-CoV-2 RNA. The SARS-CoV-2 RNA is generally detectable during the acute phase of infection. The Aptima SARS-CoV-2 Assay on the [employer] and Flowgear Fusion system is intended for use by laboratory personnel specifically instructed and trained in the operation of the [place] and [employer] Fusion system. The Aptima SARS-CoV-2 assay is [...] information. Performed By: #### 3 [id number] #### [facility] [address] [facility] BASIC METABOLIC PANELon 06- Calcium [Mass/Vol] 8.4 mg/dL Low 8.6-10.3 [facility] Comment on above: Order Comment: No: D o not add to previous draw Performed By: #### 0 0071, 27087 #### [facility] [address] [place] [address], [facility] Chloride [Moles/Vol] 110 mmol/L High 98-[address] [facility] Comment on above: Order Comment: No: D o not add to previous draw Performed By: #### 0 0071, 59966 #### [facility] [address] [place] [address], [place] CO2 [Moles/Vol] 24 mmol/L Normal 21-31 [facility] Comment on above: Order Comment: No: D o not add to previous draw Performed By: #### 0 0071, 44564 #### [facility] [address] [place] [address], [facility] Creatinine [Mass/Vol] 1.96 mg/dL High 0.70-1.[address] [facility] Comment on above: Order Comment: No: D o not add to previous draw Performed By: #### 0 0071, 92770 #### [facility] [address] [place] [address], [facility] eGFR- 41 ml/min/1.73sq m Abnormal >[address] [facility] Comment on above: Order Comment: No: D o not add to previous draw Performed By: #### 0 0071, 63087 #### [facility] [address] [place] [address], [facility] eGFR- non- 34 ml/min/1.73sq m Abnormal >60 [facility] Comment on above: Order Comment: No: D o not add to previous draw Performed By: #### 0 0071, 36477 #### [facility] [address] [place] [address], [place] Glucose [Mass/Vol] 106 mg/dL High 70-100 [facility] Comment on above: Order Comment: No: D o not add to previous draw Performed By: #### 0 0071, 15829 #### [facility] [address] [place] [address], [place] Potassium [Moles/Vol] 3.9 mmol/L Normal 3.5-5.[address] [facility] Comment on above: Order Comment: No: D o not add to previous draw Performed By: #### 0 0071, 89571 #### [facility] [address] [place] [address], [place] Sodium [Moles/Vol] 141 mmol/L Normal 136-145 [facility] Comment on above: Order Comment: No: D o not add to previous draw Performed By: #### 0 0071, 12151 #### [facility] [address] [place] [address], [facility] Urea nitrogen [Mass/Vol] 35 mg/dL High 7-[address] [facility] Comment on above: Order Comment: No: D o not add to previous draw Performed By: #### 0 0071, 77790 #### [facility] [address] [place] [address], [facility] CBC COMPLETE BLOOD COUNTon 0 10-21-2021 Erythrocyte distribution width (RBC) [Ratio] 14.0 % Normal 11.5-15.[address] [facility] Comment on above: Order Comment: No: D o not add to previous draw Performed By: #### 8 [id number] #### [facility] [address] [place] [address], [facility] Hematocrit (Bld) [Volume fraction] 37.9 % Low 39.0-50.[address] [facility] Comment on above: Order Comment: No: D o not add to previous draw Performed By: #### 8 [id number] #### [facility] [address] [place] [address], [facility] Hemoglobin (Bld) [Mass/Vol] 12.4 g/dL Low 13.0-17.[address] [facility] Comment on above: Order Comment: No: D o not add to previous draw Performed By: #### 8 [id number] #### [facility] [address] [place] [address], [place] MCH (RBC) [Entitic mass] 27.0 pg Normal 27.0-33.[address] [facility] Comment on above: Order Comment: No: D o not add to previous draw Performed By: #### 8 [id number] #### [facility] [address] [place] [address], [place] MCHC (RBC) [Mass/Vol] 32.7 g/dL Normal 32.0-35.[address] [facility] Comment on above: Order Comment: No: D o not add to previous draw Performed By: #### 8 [id number] #### [facility] [address] [facility] [place] [address], [facility] MCV (RBC) [Entitic vol] 82.4 fL Normal 82.0-98.[address] [facility] Comment on above: Order Comment: No: D o not add to previous draw Performed By: #### 8 [id number] #### [facility] [address] [facility] [place] [address], [facility] Nucleated RBC/100 WBC (Bld) [Ratio] 0 % Normal 0-[address] [facility] Comment on above: Order Comment: No: D o not add to previous draw Performed By: #### 8 [id number] #### [facility] [address] [facility] [place] [address], [facility] PLAT CNT 138 10*3/uL Low 150-400 [facility] Comment on above: Order Comment: No: D o not add to previous draw Performed By: #### 8 [id number] #### [facility] [address] [facility] [place] [address], [facility] RBC (Bld) [#/Vol] 4.60 10*6/uL Normal 4.20-5.70 [facility] Comment on above: Order Comment: No: D o not add to previous draw Performed By: #### 8 [id number] #### [facility] [address] [facility] [place] [address], [facility] WBC (Bld) [#/Vol] 6.81 10*3/uL Normal 4.00-10.60 [facility] Comment on above: Order Comment: No: D o not add to previous draw Performed By: #### 8 [id number] #### [facility] [address] [facility] [place] [address], [facility] MAGNESIUM BLOODon 10-21-2021 Magnesium [Mass/Vol] 1.9 mg/dL Normal 1.9-2.[address] [facility] Comment on above: Order Comment: No: D o not add to previous draw Performed By: #### 0 0071, 15228 #### [facility] [address] [place] [address], [facility] POC GLUCOSE LABon 10-21-2021 Glucose [Mass/Vol] 124 mg/dL High 70-100 [facility] Comment on above: Performed By: #### 8 [id number] #### [facility] [address] [place] [address], [facility] Glucose [Mass/Vol] 101 mg/dL High 70-100 [facility] Comment on above: Performed By: #### 8 [id number] #### [facility] [address] [place] [address], [facility] POC SARS COV2 ANTIGEN NEGATI VEon 10-21-2021 POC SARS COV2 ANTIGEN NEG Negative Normal NEGATIVE [facility] Comment on above: Result Comment: Nega [...] antigen from SARS-CoV-2 in direct nasopharyngeal swab (VECTOR CONTROL ASSISTANT) specimens from individuals who are suspected of [...] Accreditation. Performed By: #### 3 2044 #### [facility] [address] [place] [address], [facility] POC GLUCOSE LABon 10-20-2021 Glucose [Mass/Vol] 179 mg/dL High 70-100 [facility] Comment on above: Performed By: #### 8 [id number] #### [facility] [address] [place] [address], [facility] Glucose [Mass/Vol] 91 mg/dL Normal 70-100 [facility] Comment on above: Performed By: #### 8 [id number] #### [facility] [address] [facility] [place] [id number], [facility] COVID Quick Testingon 2021 Result Negative [employer] Other Quick Fluon 10-16-2021 FLUAV Ab CF (S) [Titer] Negative N Ganjiwang Other FLUBV Ab CF (S) [Titer] Negative [employer] Other NM STRESS/REST MULTIon 09-30 NM STRESS/REST MULTI Patient: MAURY ISSA Exam Date: 09/30/2021 : 1950 Gender:M Ordering : IZA CASANOVA Admission #: [id number] Family : Order #: [id number] CLICK HERE TO VIEW EXAM RADIOLOGY REPORT [...] Price M.D. on 10/01/2021 at 08:40 Normal [facility] ECHOCARDIO M/2D COMPLETEon 0 09-24-2021 ECHOCARDIO M/2D COMPLETE Patient: MAURY ISSA Exam Date: 09/24/2021 : 1950 Gender:M Ordering : IZA CASANOVA Admission #: [id number] Family : DR MASON MEMBRENO M.D. Order #: [id number] CLICK HERE TO VIEW EXAM ECHOCARDIOGRAM REPORT [...] Area(A4C): 24.10 cm2 Left Atrium Systolic Volume(A2C): 30225 mm3 Left Atrium Systolic Volume(A4C): 01930 mm3 Mitral Valve MV E to A Ratio: 0.90 Mitral Valve A-Wave Peak Velocity: 85.40 cm/s Mitral Valve E-Wave Peak Velocity: 74.50 cm/s Deceleration Time: 283 ms Right Ventricle Aorta AO Root Diam: 4.00 cm Aortic Valve AoV Area (Peak Darnell): 4.11 cm2 AoV Area (VTI): 4.46 cm2 Deceleration [place]: 1950 mm/s2 Pressure Half-Time: 712 ms Peak [...] Johnson M.D. on 09/24/2021 at 13:18 Normal [facility] Basic Metab w/rfx MGon 12-30 (cont.) Normal [facility] Comment on above: Result Comment: Aver age GFR for 60-69 years old: 85 mL/min/1.73sq m Chronic Kidney Disease: <60 mL/min/1.73sq m Kidney failure: <15 mL/min/1.73sq m eGFR calculated using average adult body mass. Additional eGFR calculator available at: http://www.MyCoop/multiple_crcl_2011.htm Performed By: #### C DP, BMPX #### [facility] [address] [place] [address] Media Buyer: Brian Lewis MD Anion gap [Moles/Vol] 11 mmol/L Normal -17 [facility] Comment on above: Performed By: #### C DP, BMPX #### [facility] [address] [place] [address] Media Buyer: Brian Lewis MD BUN/CRE Ratio 15 Normal - [facility] Comment on above: Performed By: #### C DP, BMPX #### [facility] [address] [place] [address] Media Buyer: Brian Lewis MD Calcium [Mass/Vol] 9.2 mg/dL Normal 8.6-10.4 [facility] Comment on above: Performed By: #### C DP, BMPX #### [facility] [address] [place] [address] Media Buyer: Brian Lewis MD Chloride [Moles/Vol] 102 mmol/L Normal 98-107 [facility] Comment on above: Performed By: #### C DP, BMPX #### [facility] [address] [place], [place] [phone] Media Buyer: Brian Lewis MD CO2 [Moles/Vol] 28 mmol/L Normal 20-31 [facility] Comment on above: Performed By: #### C DP, BMPX #### [facility] [address] [place], [place] [phone] Media Buyer: Brian Lewis MD Creatinine [Mass/Vol] 1.69 mg/dL High 0.70-1.20 [facility] Comment on above: Performed By: #### C DP, BMPX #### [facility] [address] [place], [place] [phone] Media Buyer: Brian Lewis MD GFR, Amer 49 mL/min Low >60 [facility] Comment on above: Performed By: #### C DP, BMPX #### [facility] [address] [place], [place] [phone] Media Buyer: Brian Lewis MD GFR,non Amer 41 mL/min Low >60 [facility] Comment on above: Performed By: #### C DP, BMPX #### [facility] [address] [place], [place] [phone] Media Buyer: Brian Lewis MD Glucose [Mass/Vol] 75 mg/dL Normal 70-99 [facility] Comment on above: Performed By: #### C DP, BMPX #### [facility] [address] [place], [place] [phone] Media Buyer: Brian Lewis MD Potassium [Moles/Vol] 4.8 mmol/L Normal 3.7-5.3 [facility] Comment on above: Performed By: #### C DP, BMPX #### [facility] [address] [place] [address] Media Buyer: Brian Lewis MD Sodium [Moles/Vol] 141 mmol/L Normal 135-144 [facility] Comment on above: Performed By: #### C DP, BMPX #### [facility] [address] [place] [address] Media Buyer: Brian Lewis MD Staging: Normal [facility] Comment on above: Result Comment: Stag e 1: Some kidney damage normal GFR Stage 2: Mild kidney damage GFR 60-89 Stage 3: Moderate kidney damage GFR 30-59 Stage 4: Severe kidney damage GFR 15-29 Stage 5: Severe kidney damage GFR <15 ESRD - chronic treatment by dialysis or transplant Performed By: #### C DP, BMPX #### [facility] [address] [place] [address] Media Buyer: Brian Lewis MD Urea nitrogen [Mass/Vol] 26 mg/dL High 8-23 [facility] Comment on above: Performed By: #### C DP, BMPX #### [facility] [address] [place] [address] Media Buyer: Brian Lewis MD Basic Metabolic Panel w/ Ref arnold to MGon 12-30-2018 Anion gap [Moles/Vol] 11 mmol/L 9 - 17 mmol/L [place] Bun/Cre Ratio 15 [place] Calcium [Mass/Vol] 9.2 mg/dL 8.6 - 10. 4 mg/dL [place] Chloride [Moles/Vol] 102 mmol/L 98 - 10 7 mmol/L [place] CO2 [Moles/Vol] 28 mmol/L 20 - 31 mmol/L [place] Creatinine [Mass/Vol] 1.69 mg/dL High 0.7 - 1.2 mg/dL [place] GFR 49 mL/min Low >60 [place] GFR Non- 41 mL/min Low >60 [place] Glucose [Mass/Vol] 75 mg/dL 70 - 99 mg/dL [place] Interpretation and review of laboratory results Abnormal [place] Potassium [Moles/Vol] 4.8 mmol/L 3.7 - 5.3 mmol/L [place] Sodium [Moles/Vol] 141 mmol/L 135 - 144 mmol/L [place] Urea nitrogen [Mass/Vol] 26 mg/dL High 8 - 23 mg/dL [place] CBC Auto Differentialon 12-08 Basophils (Bld) [#/Vol] 0.03 10*3/uL [place] Basophils/100 WBC (Bld) 0 % 0 - 2 % M [place] Differential Type NOT REPORTED [place] Eosinophils (Bld) [#/Vol] 0.19 10*3/uL [place] Eosinophils/100 WBC (Bld) 2 % 1 - 4 % [place] Erythrocyte distribution width (RBC) [Ratio] 13.4 % 11.8 - 14.4 % [place] Hematocrit (Bld) [Volume fraction] 41.4 % 40.7 - 50.3 % [place] Hemoglobin (Bld) [Mass/Vol] 13.3 g/dL 13 - 17 g/dL [place] Immature granulocytes (Bld) [#/Vol] 0.04 10*3/uL [place] Immature granulocytes (Bld) [#/Vol] 0 % 0 [place] Interpretation and review of laboratory results Abnormal [place] Lymphocytes (Bld) [#/Vol] 1.46 10*3/uL [place] Lymphocytes/100 WBC (Bld) 15 % Low 24 - 43 % [place] MCH (RBC) [Entitic mass] 26.9 pg 25.2 - 33.5 pg [place] MCHC (RBC) [Mass/Vol] 32.1 g/dL 28.4 - 34.8 g/dL [place] MCV (RBC) [Entitic vol] 83.8 fL 82.6 - 102.9 fL [place] Monocytes (Bld) [#/Vol] 0.66 10*3/uL [place] Monocytes/100 WBC (Bld) 7 % 3 - 12 % [place] Platelet mean volume (Bld) [Entitic vol] 10.0 fL 8.1 - 13.5 fL [place] Platelets (Bld) [#/Vol] NOT REPORTED [place] Platelets (Bld) [#/Vol] 174 10*3/uL [place] RBC (Bld) [#/Vol] 4.94 10*6/uL 4.21 - 5.7 7 m/uL [place] RBC morphology finding Nom (Bld) NOT REPORTED [place] Segmented neutrophils/100 WBC (Bld) 76 % High 36 - 65 % [place] Segs Absolute 7.36 [place] WBC (Bld) [#/Vol] 9.7 10*3/uL [place] WBC (Bld) [#/Vol] 0.0 10*3/uL 0.0 per 10 0 WBC [place] WBC Morphology NOT REPORTED [place] CBC with Diffon 12-30-2018 Abs. Basophil 0.03 k/uL Normal 0.00-0.20 [facility] Comment on above: Performed By: #### C DP, BMPX #### [facility] [address] [place] [address] [place] [address] Media Buyer: Brian Lewis MD Abs.Imm.Granulocyte 0.04 k/uL Normal 0.00-0.30 [facility] Comment on above: Performed By: #### C DP, BMPX #### [facility] [address] [place] [address] Media Buyer: Brian Lewis MD Abs.Neutrophil (Seg) 7.36 k/uL Normal 1.50-8.10 [facility] Comment on above: Performed By: #### C DP, BMPX #### [facility] [address] [place] [facility] Media Buyer: Brian Lewis MD Basophils/100 WBC (Bld) 0 % Normal 0-2 [facility] Comment on above: Performed By: #### C DP, BMPX #### [facility] [address] [place], [facility] Media Buyer: Brian Lewis MD Eosinophils (Bld) [#/Vol] 0.19 10*3/uL Normal 0.00-0.44 [facility] Comment on above: Performed By: #### C DP, BMPX #### [facility] [address] [place] [address] Media Buyer: Brian Lewis MD Eosinophils/100 WBC (Bld) 2 % Normal 1-4 [facility] Comment on above: Performed By: #### C DP, BMPX #### [address] [place], [facility] Media Buyer: Brian Lewis MD Erythrocyte distribution width (RBC) [Ratio] 13.4 % Normal 11.8-14.4 [facility] Comment on above: Performed By: #### C DP, BMPX #### [address] [place] [phone] Media Buyer: Brian Lewis MD Hematocrit (Bld) [Volume fraction] 41.4 % Normal 40.7-50.3 [facility] Comment on above: Performed By: #### C DP, BMPX #### [address] [place], [facility] Media Buyer: Brian Lewis MD Hemoglobin (Bld) [Mass/Vol] 13.3 g/dL Normal 13.0-17.0 [facility] Comment on above: Performed By: #### C DP, BMPX #### [facility] [address] [place], [facility] Media Buyer: Brian Lewis MD Immature granulocytes (Bld) [#/Vol] 0 % Normal 0 [facility] Comment on above: Performed By: #### C DP, BMPX #### [facility] [address] [place], [place] [phone] Media Buyer: Brian Lewis MD Lymphocytes (Bld) [#/Vol] 1.46 10*3/uL Normal 1.10-3.70 [facility] Comment on above: Performed By: #### C DP, BMPX #### [facility] [address] [place] [address] Media Buyer: Brian Lewis MD Lymphocytes/100 WBC (Bld) 15 % Low 24-43 [facility] Comment on above: Performed By: #### C DP, BMPX #### [facility] [address] [place] [phone] Media Buyer: Brian Lewis MD MCH (RBC) [Entitic mass] 26.9 pg Normal 25.2-33.5 [facility] Comment on above: Performed By: #### C DP, BMPX #### [address] [place], [place] [phone] Media Buyer: Brian Lewis MD MCHC (RBC) [Mass/Vol] 32.1 g/dL Normal 28.4-34.8 [facility] Comment on above: Performed By: #### C DP, BMPX #### [facility] [address] [place], [place] [phone] Media Buyer: Brian Lewis MD MCV (RBC) [Entitic vol] 83.8 fL Normal 82.6-102.9 M [facility] Comment on above: Performed By: #### C DP, BMPX #### [facility] [address] [place] [address] Media Buyer: Brian Lewis MD Monocytes (Bld) [#/Vol] 0.66 10*3/uL Normal 0.10-1.20 [facility] Comment on above: Performed By: #### C DP, BMPX #### [facility] [address] [place], [place] [phone] Media Buyer: Brian Lewis MD Monocytes/100 WBC (Bld) 7 % Normal 3-12 M [facility] Comment on above: Performed By: #### C DP, BMPX #### [facility] [address] [place], [place] [phone] Media Buyer: Brian Lewis MD Neutrophil (Seg) 76 % High 36-65 [facility] Comment on above: Performed By: #### C DP, BMPX #### [facility] [address] [place], [place] [phone] Media Buyer: Brian Lewis MD NRBC Automated 0.0 per 100 WBC Normal 0.0 [facility] Comment on above: Performed By: #### C DP, BMPX #### [facility] [address] [place], [facility] Media Buyer: Brian Lewis MD Platelet mean volume (Bld) [Entitic vol] 10.0 fL Normal 8.1-13.5 [facility] Comment on above: Performed By: #### C DP, BMPX #### [facility] [address] [place], [facility] Media Buyer: Brian Lewis MD Platelets (Bld) [#/Vol] 174 10*3/uL Normal 138-453 [facility] Comment on above: Performed By: #### C DP, BMPX #### [facility] [address] [place], [place] [phone] Media Buyer: Brian Lewis MD RBC (Bld) [#/Vol] 4.94 10*6/uL Normal 4.21-5.77 [facility] Comment on above: Performed By: #### C DP, BMPX #### [facility] [address] [place], [place] [phone] Media Buyer: Brian Lewis MD WBC (Bld) [#/Vol] 9.7 10*3/uL Normal 3.5-11.3 [facility] Comment on above: Performed By: #### C DP, BMPX #### [facility] [address] [place], [place] [phone] Media Buyer: Brian Lewis MD Auto Diff Performed NOT REPORTED Normal [facility] Comment on above: Performed By: #### C DP, BMPX #### [facility] [address] [place], [place] [id number] Media Buyer: Brian Lewis MD Platelets (Bld) [#/Vol] NOT REPORTED Normal [facility] Comment on above: Performed By: #### C DP, BMPX #### [facility] [address] [place], [place] [id number] Media Buyer: Brian Lewis MD RBC morphology finding Nom (Bld) NOT REPORTED Normal [facility] Comment on above: Performed By: #### C DP, BMPX #### [facility] [address] [place], [place] [id number] Media Buyer: Brian Lewis MD WBC Morphology NOT REPORTED Normal [facility] Comment on above: Performed By: #### C DP, BMPX #### [facility] [address] [place] [id number] Media Buyer: Brian Lewis MD Metabolic Panelon 12-30-2018 GFR/1.73 sq M predicted among non-blacks MDRD (S/P/Bld) [Vol rate/Area] [place], [place] Comment on above: Average GFR for 60-6 9 years old: 85 mL/min/1.73sq m Chronic Kidney Disease: <60 mL/min/1.73sq m Kidney failure: <15 mL/min/1.73sq m eGFR calculated using average adult body mass. Additional eGFR calculator available at: http://www.[employer]multiple_crcl_2012.htm Stage 1: Some kidney damage normal GFR [...] 172.7 cm Kyrie Carney DPM Work Phone: [facility] 07-12-2024 10:18-0500 Body mass index (BMI) [Ratio] 31.32 kg/m2 Kyrie Carney DPM Work Phone: [facility] 07-12-2024 10:18-0500 Body weight 93.44 kg Kyrie Carney DPM Work Phone: [facility] 07-12-2024 10:18-0500 Respiratory rate 16 /min Kyrie Carney DPM Work Phone: [facility] 07-02-2024 08:45-0500 Body height 172.7 cm Mason Membreno MD Work Phone: [facility] 07-02-2024 08:45-0500 Body mass index (BMI) [Ratio] 31.32 kg/m2 Mason Membreno MD Work Phone: [facility] 07-02-2024 08:45-0500 Body weight 93.44 kg Mason Membreno MD Work Phone: [facility] 07-02-2024 08:45-0500 Diastolic blood pressure 82 mm[Hg] Mason Membreno MD Work Phone: [facility] 07-02-2024 08:45-0500 Heart rate 54 /min Mason Membreno MD Work Phone: [facility] 07-02-2024 08:45-0500 SaO2% (BldA) [Mass fraction] 96 % Mason Membreno MD Work Phone: [facility] 07-02-2024 08:45-0500 Systolic blood pressure 130 mm[Hg] Mason Membreno MD Work Phone: [facility] 04-19-2024 10:21-0500 Body height 172.7 cm Kyrie Carney DPM Work Phone: [facility] 04-19-2024 10:21-0500 Body mass index (BMI) [Ratio] 29.8 kg/m2 Kyrie Brown DPM Work Phone: [facility] 04-19-2024 10:21-0500 Body weight 88.91 kg Kyrie Angelika DPM Work Phone: [facility] 04-19-2024 10:21-0500 Respiratory rate 16 /min Kyrie Carney DPM Work Phone: [facility] 02-27-2024 11:02-0400 Body height 172.7 cm Mason Membreno MD Work Phone: [facility] 02-27-2024 11:02-0400 Body mass index (BMI) [Ratio] 29.8 kg/m2 Mason Membreno MD Work Phone: [facility] 02-27-2024 11:02-0400 Body weight 88.91 kg Mason Membreno MD Work Phone: [facility] 02-27-2024 11:02-0400 Diastolic blood pressure 72 mm[Hg] Mason Membreno MD Work Phone: [facility] 02-27-2024 11:02-0400 Heart rate 51 /min Mason Membreno MD Work Phone: [facility] 02-27-2024 11:02-0400 SaO2% (BldA) [Mass fraction] 96 % Mason Membreno MD Work Phone: [facility] 02-27-2024 11:02-0400 Systolic blood pressure 122 mm[Hg] Mason Membreno MD Work Phone: [facility] 02-07-2024 09:40-0400 Body height 175.3 cm Sher White MD Work Phone: [facility] 02-07-2024 09:40-0400 Body mass index (BMI) [Ratio] 28.06 kg/m2 Sher White MD Work Phone: [facility] 02-07-2024 09:40-0400 Body weight 86.18 kg Sher White MD Work Phone: [facility] 02-07-2024 09:40-0400 Diastolic blood pressure 96 mm[Hg] Sher hWite MD Work Phone: [facility] 02-07-2024 09:40-0400 Heart rate 65 /min Sher White MD Work Phone: [facility] 02-07-2024 09:40-0400 Systolic blood pressure 133 mm[Hg] Sher White MD Work Phone: [facility] 02-06-2024 09:02-0400 Body height 172.7 cm Mason Membreno MD Work Phone: [facility] 02-06-2024 09:02-0400 Body mass index (BMI) [Ratio] 29.35 kg/m2 Mason Membreno MD Work Phone: [facility] 02-06-2024 09:02-0400 Body weight 87.54 kg Mason Membreno MD Work Phone: [facility] 02-06-2024 09:02-0400 Diastolic blood pressure 64 mm[Hg] Mason Membreno MD Work Phone: [facility] 02-06-2024 09:02-0400 Heart rate 62 /min Mason Membreno MD Work Phone: [facility] 02-06-2024 09:02-0400 SaO2% (BldA) [Mass fraction] 96 % Mason Membreno MD Work Phone: [facility] 02-06-2024 09:02-0400 Systolic blood pressure 126 mm[Hg] Mason Membreno MD Work Phone: [facility] 02-02-2024 14:29-0400 Body height 172.7 cm Sophia Zaldivar NP Work Phone: [facility] 02-02-2024 14:29-0400 Body mass index (BMI) [Ratio] 29.1 kg/m2 Sophia Zaldivar VECTOR CONTROL ASSISTANT Work Phone: [facility] 02-02-2024 14:290400 Body weight 86.82 kg Sophia Zaldivar VECTOR CONTROL ASSISTANT Work Phone: [facility] 02-02-2024 14:29-0400 Diastolic blood pressure 90 mm[Hg] Sophia Zaldivar VECTOR CONTROL ASSISTANT Work Phone: [facility] 02-02-2024 14:29-0400 Heart rate 62 /min Sophia Zaldivar VECTOR CONTROL ASSISTANT Work Phone: [facility] 02-02-2024 14:29-0400 Respiratory rate 18 /min Sophia Zaldivar VECTOR CONTROL ASSISTANT Work Phone: [facility] 02-02-2024 14:29-0400 SaO2% (BldA) [Mass fraction] 99 % Sophia Zaldivar VECTOR CONTROL ASSISTANT Work Phone: [facility] 02-02-2024 14:29-0400 Systolic blood pressure 132 mm[Hg] Sophia Zaldivar VECTOR CONTROL ASSISTANT Work Phone: [facility] 01-27-2024 17:45-0400 Body height 177.8 cm [facility] 01-27-2024 17:45-0400 Body mass index (BMI) [Ratio] 28.3 kg/m2 [facility] 01-27-2024 17:45-0400 Body temperature 98.9 [degF] [facility] 01-27-2024 17:45-0400 Body weight 89.35 kg [facility] 01-27-2024 17:45-0400 Diastolic blood pressure 77 mm[Hg] [facility] 01-27-2024 17:45-0400 Heart rate 64 /min [facility] 01-27-2024 17:45-0400 Respiratory rate 18 /min [facility] 01-27-2024 17:45-0400 SaO2% (BldA) [Mass fraction] 96 % [facility] 01-27-2024 17:45-0400 Systolic blood pressure 139 mm[Hg] [facility] 01-12-2024 14:00-0400 Body height 172.7 cm Kyrie Carney DPM Work Phone: [facility] 01-12-2024 14:00-0400 Body mass index (BMI) [Ratio] 29.19 kg/m2 Kyrie Carney DPM Work Phone: [facility] 01-12-2024 14:00-0400 Body weight 87.09 kg Kyrie Carney DPM Work Phone: [facility] 01-12-2024 14:00-0400 Diastolic blood pressure 79 mm[Hg] Kyrie Carney DPM Work Phone: [facility] 01-12-2024 14:00-0400 Heart rate 83 /min Kyrie Carney DPM Work Phone: [facility] 01-12-2024 14:00-0400 Systolic blood pressure 128 mm[Hg] Kyrie Carney DPM Work Phone: [facility] 01-05-2024 15:06-0400 Body height 172.7 cm Mason Membreno MD Work Phone: [facility] 01-05-2024 15:06-0400 Body mass index (BMI) [Ratio] 29.19 kg/m2 Mason Membreno MD Work Phone: [facility] 01-05-2024 15:06-0400 Body weight 87.09 kg Mason Membreno MD Work Phone: [facility] 01-05-2024 15:06-0400 Diastolic blood pressure 70 mm[Hg] Mason Membreno MD Work Phone: [facility] 01-05-2024 15:06-0400 Heart rate 67 /min Mason Membreno MD Work Phone: [facility] 01-05-2024 15:06-0400 SaO2% (BldA) [Mass fraction] 98 % Mason Membreno MD Work Phone: [facility] 01-05-2024 15:06-0400 Systolic blood pressure 114 mm[Hg] Mason Membreno MD Work Phone: [facility] 12-26-2023 15:19-0400 Body height 172.7 cm Mason Membreno MD Work Phone: [facility] 12-26-2023 15:19-0400 Body mass index (BMI) [Ratio] 29.8 kg/m2 Mason Membreno MD Work Phone: [facility] 12-26-2023 15:19-0400 Body weight 88.91 kg Mason Membreno MD Work Phone: [facility] 12-26-2023 15:19-0400 Diastolic blood pressure 62 mm[Hg] Mason Membreno MD Work Phone: [facility] 12-26-2023 15:19-0400 Heart rate 77 /min Mason Membreno MD Work Phone: [facility] 12-26-2023 15:19-0400 SaO2% (BldA) [Mass fraction] 97 % Mason Membreno MD Work Phone: [facility] 12-26-2023 15:19-0400 Systolic blood pressure 102 mm[Hg] Mason Membreno MD Work Phone: [facility] 06-16-2023 09:30-0500 Body height 177.8 cm Kaci Torrez Other [facility] Other 06-16-2023 09:30-0500 Body mass index (BMI) [Ratio] 27.98 kg/m2 Kaci Torrez Other [facility] Other 06-16-2023 09:30-0500 Body temperature 98 [degF] Kaci Torrez Other [facility] Other 06-16-2023 09:30-0500 Body weight 88.45 kg Kaci Torrez Other [facility] Other 06-16-2023 09:30-0500 Respiratory rate 18 /min Kaci Torrez Other [facility] Other 06-16-2023 09:30-0500 SaO2% (BldA) [Mass fraction] 97 % Kaci Torrez Other [facility] Other 04-12-2023 14:30-0500 Body height 177.8 cm Esteban Lilliana Other [facility] Other 04-12-2023 14:30-0500 Body mass index (BMI) [Ratio] 27.78 kg/m2 Esteban Lilliana Other [facility] Other 04-12-2023 14:30-0500 Body weight 87.82 kg Esteban Steward Other [facility] Other 04-12-2023 14:30-0500 Diastolic blood pressure 76 mm[Hg] Esteban Lilliana Other [facility] Other 04-12-2023 14:30-0500 Systolic blood pressure 131 mm[Hg] Esteban Lilliana Other [facility] Other 02-28-2023 16:37-0400 Body temperature 97.7 [degF] II Mason Membreno Work Phone: [facility] 02-28-2023 16:37-0400 Diastolic blood pressure 83 mm[Hg] II Mason Membreno Work Phone: [facility] 02-28-2023 16:37-0400 Heart rate 55 /min II Mason Membreno Work Phone: [facility] 02-28-2023 16:37-0400 Respiratory rate 18 /min II Mason Membreno Work Phone: [facility] 02-28-2023 16:37-0400 SaO2% (BldA) [Mass fraction] 99 % II Mason Membreno Work Phone: [facility] 02-28-2023 16:37-0400 Systolic blood pressure 142 mm[Hg] II Mason Membreno Work Phone: [facility] 02-28-2023 06:00-0400 Body weight 84.3 kg II Mason Membreno Work Phone: [facility] 02-27-2023 13:01-0400 Body height 172.72 cm II Mason Membreno Work Phone: [facility] 02-22-2023 09:10-0400 Body height 177.8 cm Kaci Torrez Other [facility] Other 02-22-2023 09:10-0400 Body mass index (BMI) [Ratio] 27.52 kg/m2 Kaci Torrez Other [facility] Other 02-22-2023 09:10-0400 Body temperature 97.6 [degF] Kaci Torrez Other [facility] Other 02-22-2023 09:10-0400 Body weight 87 kg Kaci Torrez Other [facility] Other 02-22-2023 09:10-0400 Diastolic blood pressure 92 mm[Hg] Kaci Torrez Other [facility] Other 02-22-2023 09:10-0400 Respiratory rate 18 /min Kaci Torrez Other [facility] Other 02-22-2023 09:10-0400 SaO2% (BldA) [Mass fraction] 97 % Kaci Torrez Other [facility] Other 02-22-2023 09:10-0400 Systolic blood pressure 126 mm[Hg] Kaci Torrez Other [facility] Other 02-18-2023 11:35-0400 Diastolic blood pressure 89 mm[Hg] II Mason Membreno Work Phone: [facility] 02-18-2023 11:35-0400 Heart rate 69 /min II Mason Membreno Work Phone: [facility] 02-18-2023 11:35-0400 Respiratory rate 16 /min II Mason Membreno Work Phone: [facility] 02-18-2023 11:35-0400 SaO2% (BldA) [Mass fraction] 98 % II Mason Membreno Work Phone: [facility] 02-18-2023 11:35-0400 Systolic blood pressure 142 mm[Hg] II Mason Membreno Work Phone: [facility] 02-18-2023 09:59-0400 Body height 172.72 cm II Mason Membreno Work Phone: [facility] 02-18-2023 09:59-0400 Body temperature 98 [degF] II Mason Membreno Work Phone: [facility] 02-18-2023 09:59-0400 Body weight 83.91 kg II Mason Membreno Work Phone: [facility] 01-11-2023 13:15-0400 Body height 177.8 cm Esteban Steward Other [facility] Other 01-11-2023 13:15-0400 Body mass index (BMI) [Ratio] 26.83 kg/m2 Esteban Steward Other [facility] Other 01-11-2023 13:15-0400 Body weight 84.82 kg Esteban Steward Other [facility] Other 01-11-2023 13:15-0400 Diastolic blood pressure 63 mm[Hg] Esteban Steward Other [facility] Other 01-11-2023 13:15-0400 Systolic blood pressure 87 mm[Hg] Esteban Steward Other [facility] Other 10-27-2022 09:23-0400 Diastolic blood pressure 88 mm[Hg] Francisca Lue [facility] 10-27-2022 09:23-0400 Heart rate 65 /min Francisca Lue [facility] 10-27-2022 09:23-0400 Systolic blood pressure 126 mm[Hg] Francisca Lue [facility] 04-20-2022 15:00-0500 Body height 177.8 cm Esteban Steward Other [facility] Other 04-20-2022 15:00-0500 Body mass index (BMI) [Ratio] 28.41 kg/m2 Esteban Steward Other [facility] Other 04-20-2022 15:00-0500 Body weight 89.81 kg Esteban Steward Other [facility] Other 04-20-2022 15:00-0500 Diastolic blood pressure 59 mm[Hg] Esteban Steward Other [facility] Other 04-20-2022 15:00-0500 Systolic blood pressure 88 mm[Hg] Esteban Steward Other [facility] Other 10-16-2021 10:00-0400 Body height 177.8 cm Kimberly Talbot Other [facility] Other 10-16-2021 10:00-0400 Body mass index (BMI) [Ratio] 29.41 kg/m2 Kimberly Talbot Other [facility] Other 10-16-2021 10:00-0400 Body temperature 97.1 [degF] Kimberly Talbot Other [facility] Other 10-16-2021 10:00-0400 Body weight 92.99 kg Kimberly Talbot Other [facility] Other 10-16-2021 10:00-0400 Respiratory rate 18 /min Kimberly Talbot Other [facility] Other 10-16-2021 10:00-0400 SaO2% (BldA) [Mass fraction] 97 % Kimberly Talbot Other [facility] Other 08-18-2021 09:47-0400 Blood Pressure Location Maury Kothari Jr. [facility] 08-18-2021 09:47-0400 Diastolic blood pressure 77 mm[Hg] Maury Kothari Jr. [facility] 08-18-2021 09:47-0400 Heart rate 63 /min Maury Kothari Jr. [facility] 08-18-2021 09:47-0400 Systolic blood pressure 108 mm[Hg] Maury Kothari Jr. [facility] Jimmy 12-30-2018 14:36-0400 BP Diastolic 83 mm[Hg] Mason Mcbride [facility] , [place] 12-30-2018 14:36-0400 BP Systolic 134 mm[Hg] Mason Membreno [facility] , [place] 12-30-2018 14:36-0400 Pulse Oximetry 99 % Mason Mcbride [facility] , [place] 12-30-2018 14:17-0400 Body Temperature 97.3 [degF] Mason Membreno [facility] , [place] 12-30-2018 14:17-0400 Pulse (Heart Rate) 49 /min Mason Mcbride [facility], [place] 12-30-2018 14:17-0400 Respiratory Rate 22 /min Mason Mcbride [facility], [place] Encounters Encounter Date Encounter Type Care Provider Facility Start: 07-30-2024 End: 07-30-2024 Clinisync Result Encounter Generic External Data Provider [facility] External Department Unsolicited Start: 07-30-2024 End: 07-30-2024 Clinisync Result Encounter Generic External Data Provider [facility] External Department Unsolicited Start: 07-24-2024 End: 07-24-2024 [facility] Start: 07-12-2024 End: 07-12-2024 Bamboo flowspetros Carney DPM Work Phone: [facility] Start: 07-12-2024 End: 07-12-2024 Bamboo flowspetros Carney DPM Work Phone: [facility] Start: 07-12-2024 End: 07-12-2024 Patient encounter procedure Kyrie Carney DPM Work Phone: [facility] Comment on above: Diabetes mellitus du e to underlying condition with diabetic polyneuropathy, with long-term current use of insulin ([facility]) (Primary Dx); Pain due to onychomycosis of toenails of both feet; Plantar fasciitis; Contracture of right ankle Start: 07-12-2024 End: 07-12-2024 ambulatory KYRIE CARNEY Not Available Start: 07-11-2024 End: 07-11-2024 ambulatory [facility] Start: 07-02-2024 End: 07-02-2024 Bamboo flowsheet Mason [...] with long-term current use of insulin (HCC) ([facility]/HCC) Start: 02-27-2024 End: 02-27-2024 ambulatory MASON MEMBRENO [...] Dx) Start: 02-06-2024 End: 02-06-2024 ambulatory MASON MEMBRENO Not Available Start: 02-02-2024 End: 02-02-2024 Office outpatient visit 25 minutes Sophia Zaldivar [employer] ASSISTANT Work Phone: [facility] Comment on above: Acute bronchitis, un specified organism (Primary Dx); Acute cough Start: 02-02-2024 End: 02-02-2024 ambulatory SOPHIA ZALDIVAR Not Available Start: 02-02-2024 End: 02-02-2024 Bamboo flowsheet Sophia Zaldivar VECTOR CONTROL ASSISTANT Work Phone: [facility] Start: 02-02-2024 End: 02-02-2024 Bamboo flowsheet Sophia Zaldivar VECTOR CONTROL ASSISTANT Work Phone: [facility] Start: 01-27-2024 End: 01-27-2024 ambulatory [facility] Work Phone: Start: 01-27-2024 End: 01-27-2024 Patient encounter procedure [facility] Work Phone: Start: 01-13-2024 End: 01-13-2024 ambulatory [facility] Start: 01-12-2024 End: 01-12-2024 Bamboo flowsheet [...] CARNEY Not Available Start: 01-11-2024 ambulatory HERBERT Albarran GIORGINORMABIMALDiego Venkat lity:[facility] Start: 01-11-2024 End: 01-11-2024 Subsequent hospital visit by physician Mri [facility] (I-Stat/Lg Bore/1.5t) [facility] [...] 01-04-2024 End: 01-04-2024 Telephone encounter Francia Dumont sole cutter [facility] Comment on above: Orders Start: 12-26-2023 End: 12-26-2023 Office outpatient visit 25 minutes Mason Membreno MD Work Phone: [facility] Comment on above: Hypertrophic cardiom yopathy (CMS/HCC) (Primary Dx) Start: 12-26-2023 End: 12-26-2023 ambulatory MASON MEMBRENO Not Available Start: 12-26-2023 End: 12-26-2023 Bamboo flowsheet Mason Membreno MD Work Phone: [facility] Start: 12-26-2023 End: 12-26-2023 Bamboo flowspetros Membreno MD Work Phone: [facility] Start: 12-02-2023 End: 12-02-2023 ambulatory TOMAS [facility] Start: 11-24-2023 End: 11-24-2023 ambulatory KYRIE Steffen ANGELIKA Not Available Start: 10-27-2023 End: 10-27-2023 ambulatory KYRIE CARNEY Not Available Start: 10-19-2023 End: 10-19-2023 ambulatory MASON Baron NATASHA Not Available Start: 10-10-2023 End: 10-10-2023 ambulatory CHRIS ARDON Not Available Start: 09-15-2023 End: 09-15-2023 ambulatory MASON MEMBRENO Not Available Start: 08-16-2023 End: 08-16-2023 ambulatory KYRIE Steffen ANGELIKA Not Available Start: 07-18-2023 End: 07-18-2023 ambulatory MASON MEMBRENO Not Available Start: 06-16-2023 End: 06-16-2023 ambulatory Kaci Torrez Other [facility] Other Start: 06-16-2023 Office outpatient vi sit 25 minutes Kaci Torrez [facility] Start: 04-12-2023 End: 04-12-2023 ambulatory Esteban Steward Other [facility] Other Start: 04-12-2023 Office outpatient vi sit 15 minutes Esteban Steward [facility] Start: 04-11-2023 End: 05-09-2023 ambulatory GALE CARNEY [facility] Start: 02-24-2023 End: 02-28-2023 Evaluation and management of inpatient II Mason Membreno Work Phone: [facility] Work Phone: Start: 02-22-2023 End: 02-22-2023 ambulatory Kaci Torrez Other [facility] Other Start: 02-22-2023 Office outpatient vi sit 25 minutes Kaci Torrez [facility] Start: 02-18-2023 Telephone encounter Esteban maciel [facility] Start: 02-18-2023 End: 02-18-2023 Admission to same day surgery center II Mason Membreno Work Phone: [facility] Work Phone: Start: 02-18-2023 End: 02-18-2023 ambulatory II Mason Membreno Work Phone: [facility] Work Phone: Start: 01-11-2023 End: 01-11-2023 ambulatory Esteban Steward Other [facility] Other Start: 01-11-2023 Office outpatient ne w 45 minutes Esteban Steward [facility] Start: 10-27-2022 End: 10-28-2022 ambulatory Francisca Pierre Facility:[facility] Start: 10-27-2022 End: 10-27-2022 Patient encounter procedure Francisca Pierre [facility] Start: 09-21-[address] Mason Membreno II Facility:[id number] Start: 09-12-2022 End: 09-12-[address] MASON MEMBRENO Facility:[facility] Start: 08-27-2022 End: 08-28-[address] MASON MEMBRENO Facility:[facility] Start: 07-06-2022 End: 07-07-2022 ambulatory KYRIE CARNEY Facility:[facility] Start: 05-16-2022 Encounter for other preprocedural examination GERRY YEARTY [facility] Start: 05-13-2022 End: 05-14-2022 ambulatory GERRY YEARTY Facility:[facility] Start: 05-13-2022 End: 05-14-2022 Encounter for other preprocedural examination GERRY YEARTY Facility:[facility] Start: 04-20-2022 End: 04-20-2022 ambulatory Esteban Steward Other [facility] Other Start: 04-20-2022 Office outpatient ne w 45 minutes Estbean Steward [facility] Start: 04-14-2022 End: 04-15-2022 ambulatory APRIL Martinez Facility:[facility] Start: 02-15-2022 End: 02-15-[address] MASON MEMBRENO Facility:[facility] Start: 11-19-2021 End: 11-20-[address] SELAM ISBELL Facility:[facility] Start: 11-18-2021 End: 11-19-2021 ambulatory IZA CASANOVA Facility:[facility] Start: 11-01-2021 End: 11-01-[address] MASON MEMBRENO Facility:[facility] Start: 10-28-2021 End: 02-08-[address] MASON MEMBRENO Facility:[facility] Start: 10-23-2021 ambulatory IZA CASANOVA Facility:[facility] 1 Start: 10-20-2021 End: 10-22-2021 ambulatory TOMAS WORRELLMOUNA Facility[facility] Start: 10-16-2021 (URG) Urgent Care Visit Kimberly flores [facility] Start: 10-16-2021 End: 10-16-2021 ambulatory Kimberly Talbot Other [facility] Other Start: 09-30-2021 End: 10-01-2021 ambulatory IZA STORMS Facility:[facility] Start: 09-24-2021 End: 09-25-2021 ambulatory IZA CASANOVA Facility:[facility] Start: 08-18-2021 End: 08-18-2021 Patient encounter procedure Maury Kothari Jr. [facility] Start: 12-30-2018 End: 12-30-2018 Emergency department patient visit MASON Draper [facility] Start: 12-30-2018 End: 12-30-2018 Emergency department patient visit Mason [facility] ED Comment on above: Hypoglycemia (Primar y Dx) Start: 09-12-2018 Patient encounter procedure Aashish Gaffney Facility:[id number] Start: 05-06-2019 Patient encounter procedure Aashish Gaffney Facility:[id number] Procedures Date Procedure Procedure Detail Performing Clinician Start: 07-30-2024 NM JACKIE PERF SPECT REST STR Generic Exter nal Data Provider Start: 06-13-2024 Comprehensive metabolic panel Mason landers [...] now? 2 Result Comment: PERF ORMED BY: [facility] [address] [place] [address] PATHOLOGIST CRAYON SAWYER ALEJANDRINA EID M.D. Start: 02-18-2023 Esophagogastroduodenoscopy II Mason copeland Work Phone: Start: 02-18-2023 Colonoscopy Mason Membreno MD Work Phone: Start: 12-24-2019 Ultrasonography by transrectal approach Maury Kothari Jr. Start: 10-08-2019 Arthroplasty of knee Maury Kothari Jr. Start: 07-03-2019 Ultrasonography guided transrectal cryoablation of prostate Maury Kothari Jr. Start: 06-19-2019 Cystoscopy Francisca Pierre Start: 12-30-2018 Blood count complete auto&auto difrntl wbc MASON MEMBRENO Start: 12-30-2018 Comprehensive metabolic panel MASON COPELAND Start: 12-30-2018 SALINE LOCK IV MASON MEMBRENO Start: 12-30-2018 BASIC METABOLIC PANEL W/ REFLEX TO MG FOR LOW K Quique Hernández Work Phone: Start: 12-30-2018 Blood count complete auto&auto difrntl wbc Quique Hernández Work Phone: Plan of Treatment Date Care Activity Detail Author Start: 02-18-2033 Screening for malignant neoplasm of colon [facility] Start: 02-24-2027 Urine microalbumin profile DTaP,Tdap,Td Vaccine (2 - Td or Tdap) [place] [facility] Start: 09-14-2026 Diabetes Screening Diabetes Screening [facility] Start: 04-10-2026 Glaucoma screening Diabetes: Retinopathy Screening [facility] Start: 06-13-2025 Urine screening for protein Diabetes: Urine Protein Screening [facility] Start: 03-05-2025 Urine screening for protein Diabetes: Urine Protein Screening [facility] Start: 02-26-2025 Medicare Annual Wellness (AWV) Medicare Annual Wellness (AWV) [facility] Start: 02-12-2025 End: 02-12-2025 Patient encounter procedure 02/12/2025 9:30 AM EDT Office Visit [facility] [address] [facility] [address] [place] [address] Sher White MD 14[address] [facility] [address] [place], [place] [id number] [facility] Start: 01-17-2025 Urine screening for protein Diabetes: Urine Protein Screening [facility] Start: 01-06-2025 Glaucoma screening Diabetes: Retinopathy Screening [facility] Start: 11-22-2024 Urine screening for protein Diabetes: Urine Protein Screening [facility] Start: 10-11-2024 End: 10-11-2024 Patient encounter procedure 10/11/2024 8:30 AM EDT Office Visit [facility] [address] [facility] [address] [place] [phone] Mason Membreno MD [address] [place] [address] [place] [address] [facility] Start: 09-20-2024 End: 09-20-2024 Patient encounter procedure 09/20/2024 10:40 AM EDT Office Visit [facility] [address] [place] [address] [place] [address] Kyrie Carney DPM [address] [address] [facility] Start: 09-10-2024 Hemoglobin A1c measurement Diabetes: Hemoglobin A1C [facility] Start: 08-03-2024 Urine screening for protein Diabetes: Urine Protein Screening [facility] Start: 07-12-2024 End: 07-12-2024 Patient encounter procedure 07/12/2024 10:50 AM EST Office Visit [facility] [address] [phone] Kyrie Carney DPM [address] [address] Diabetes mellitus due to underlying condition with diabetic polyneuropathy, with long-term current use of insulin ([facility]) (Primary Dx); Pain due to onychomycosis of toenails of both feet; Plantar fasciitis; Contracture of right ankle [facility] Comment on above: Diabetes mellitus due to underlying cond ition with diabetic polyneuropathy, with long-term current use of insulin ([facility]) (Primary Dx); Pain due to onychomycosis of toenails of both feet; Plantar fasciitis; Contracture of right ankle Start: 07-05-2024 End: 07-05-2024 Patient encounter procedure 07/05/2024 10:20 AM EST Office Visit [facility] [address] [address] Kyrie Carney DPM [address] [address] [facility] Start: 07-02-2024 End: 07-02-2025 Lipid 1996 panel - Serum or Plasma Lipid panel Lab Routine Mixed hyperlipidemia ([facility]) Expected: 07/02/2024 (Approximate), Expires: 07/02/2025 [facility] Work Phone: Comment on above: Expected: 07/02/2024 (Approximate), Expi res: 07/02/2025 Start: 07-02-2024 End: 07-02-2024 Patient encounter procedure [facility] Comment on above: Arrived Start: 05-29-2024 Hemoglobin A1c measurement Diabetes: Hemoglobin A1C [facility] Start: 04-19-2024 End: 04-19-2024 Patient encounter procedure 04/19/2024 10:20 AM EST Office Visit [facility] [address] [facility] [address] [place] [address] Kyrie Carney DPM [address] [address] Pain due to onychomycosis of toenails of both feet (Primary Dx); Plantar fasciitis; Contracture of right ankle [facility] Comment on above: Pain due to onychomycosis of toenails of both feet (Primary Dx); Plantar fasciitis; Contracture of right ankle Start: 03-22-2024 End: 03-22-2024 Patient encounter procedure 03/22/2024 2:10 PM EST Office Visit [facility] [address] [facility] [address] [place] [address] Kyrie Carney DPM [address] [address] [facility] Start: 02-27-2024 End: 02-27-2024 Patient encounter procedure [facility] Comment on above: Arrived Start: 02-17-2024 End: 02-17-2024 Patient encounter procedure 02/17/2024 8:45 AM EDT Office Visit [facility] [address] [place] [address] [place] [address] Mason Membreno MD [address] [place] [address] [place] [address] [facility] Start: 02-07-2024 End: 02-07-2024 Patient encounter procedure [facility] Comment on above: Arrived Start: 02-06-2024 End: 02-06-2024 Patient encounter procedure [facility] Comment on above: Arrived Start: 02-02-2024 End: 02-02-2024 Patient encounter procedure 02/02/2024 2:30 PM EDT Office Visit [facility] [address] [place] [address] [place] [address] Sophia Zaldivar NP [address] [place] [address] [place] [address] Arrived [facility] Comment on above: Arrived Start: 01-12-2024 End: 01-12-2024 Patient encounter procedure [facility] Comment on above: Plantar fasciitis (Primary Dx); Contracture of right ankle; Diabetes mellitus due to underlying condition with diabetic polyneuropathy, with long-term current use of insulin ([facility]); Onychomycosis; Toe pain, bilateral Start: 01-11-2024 End: 01-11-2024 Patient encounter procedure 01/11/2024 3:00 PM EDT Appointment [facility] [address] [place], [place] [id number] ZL/ MRI CARDIAC MORPHOLOGY AND FUNCTION W/WO IV CONTRAST [facility] Comment on above: ZL/ MRI CARDIAC MORPHOLOGY AND FUNCTION W/WO IV CONTRAST Start: 01-08-2024 Covid-19 Vaccine () Covid-19 Vaccine () [facility] Start: 01-08-2024 Influenza vaccination Influenza Vaccine (#1) [facility] Start: 01-05-2024 End: 01-05-2024 Patient encounter procedure 01/05/2024 3:15 PM EDT Office Visit [facility] [address] [facility] [address] [place] [address] Mason Membreno MD [address] [place] [address] [place] [address] Arrived [facility] Comment on above: Arrived Start: 12-26-2023 End: 12-26-2023 Patient encounter procedure 12/26/2023 3:30 PM EDT Office Visit [facility] [address] [facility] [address] [place] [phone] Mason Membreno MD [address] [facility] [address] [place] [address] Arrived [facility] Comment on above: Arrived Start: 12-16-2023 Hemoglobin A1c measurement Diabetes: [facility]oglobin A1C [facility] Start: 11-25-2023 Medicare Annual Wellness (AWV) Medicare Annual Wellness (AWV) [facility] Start: 05-09-2023 Advance Directive Discussion Advance Directive Discussion [facility] Start: 02-28-2023 [facility] Start: 02-25-[address] [facility] Start: 02-24-2023 Hospital admission [facility] Start: 02-24-2023 Referral to finance manager [facility] Start: 02-24-2023 [facility] Start: 02-18-2023 [facility] Start: 01-07-2023 Covid-19 Vaccine ( season) Covid-19 Vaccine ( season) [facility] Start: 10-18-2022 ambulatory Ambulatory Facility: Start: 09-27-2022 Diabetes Screening Diabetes Screening [facility] Start: 07-09-2019 Pneumococcal Vaccine: 65+ Years (3 of 3 - PPSV23 or PCV20) Pneumococcal Vaccine: 65+ Years (3 of 3 - PPSV23 or PCV20) [facility] Start: 01-07-2019 Influenza vaccination Flu vaccine (#1) [place] Start: 2017 Pneumococcal 65+ years Vaccine (1 of 2 - PCV13) Pneumococcal 65+ years Vaccine (1 of 2 - PCV13) [place] Start: 2017 Pneumococcal Vaccine: 65+ (1 of 1 - PCV) Pneumococcal Vaccine: 65+ (1 of 1 - PCV) [facility] Start: 2012 RSV Vaccine (1 - 1-dose 60+ series) RSV Vaccine (1 - 1-dose 60+ series) [facility] Start: 2002 Shingrix Vaccine (1 of 2) Shingrix Vaccine (1 of 2) [facility] Start: 1997 Screening for malignant neoplasm of colon [facility] Start: 11-05-1987 Lipid panel Lipid Screening [facility] Start: 11-05-1971 Urine microalbumin profile DTaP,Tdap,Td Vaccine (1 - Tdap) [facility] Start: 1970 Anxiety Screening Anxiety Screening [facility] Start: 1970 Depression Screening Depression Screening [facility] Start: 1970 Hepatitis C screening Hepatitis C Screening [facility] Start: 1952 Screening for malignant neoplasm of colon [facility] Patient Education Gastrointestin al Bleeding [facility] Work Phone: Patient referral [facility] Work Phone: Prostate specific Ag [Mass/volume] in Serum or Plasma PSA Lab Routine Prostate cancer screening Ordered: 07/02/2024 [facility] Comment on above: Ordered: 07/02/2024 Immunizations Immunization Date Immunization Notes Care Provider Fa cili 03-05-2024 ABRYSVO - Respirator y syncytial virus (RSV), vaccine, bivalent, protein subunit RSV prefusion F, diluent reconstituted, 0.5 mL, PF Mason Membreno MD Work Phone: [facility] 02-27-2024 Influenza, High-dose Seasonal, Quadrivalent, Preservative Free Mason Membreno MD Work Phone: [facility] 06-23-2023 SARS-COV-2 (COVID-19 ) vaccine, mRNA, spike protein, LNP, PF, bindu-sucrose, 30 mcg/0.3 mL Mason Membreno MD Work Phone: [facility] 04-04-2023 Influenza, High-dose Seasonal, Quadrivalent, Preservative Free Mason Membreno MD Work Phone: [facility] 04-04-2023 influenza virus vacc ine, unspecified formulation Mason Membreno MD Work Phone: [facility] 03-27-2022 SARS-CoV-2 (COVID-19 ) [id number] Francisca Ignacio [facility] 03-22-2022 influenza virus vacc ine, unspecified formulation Francisca Lue [facility] 03-22-2022 influenza, high dose seasonal, preservative-free Mason Membreno MD Work Phone: [facility] 08-25-2021 SARS-CoV-2 (COVID-19 ) mRNA-1273 vaccine Francisca Lue [facility] 03-13-2021 Moderna SARS-CoV-2 Vaccination Mason Membreno MD Work Phone: [facility] 02-09-2021 influenza, high dose seasonal, preservative-free Mason Membreno MD Work Phone: [facility] 02-06-2021 influenza virus vacc ine, unspecified formulation Francisca Lue [facility] 07-18-2020 SARS-CoV-2 (COVID-19 ) mRNA-1273 vaccine Francisca Lue [facility] 06-25-2020 SARS-CoV-2 (COVID-19 ) mRNA-1273 vaccine Francisca Lue [facility] 02-25-2020 influenza virus vacc ine, unspecified formulation Francisca Lue [facility] 02-25-2020 influenza, seasonal, injectable Mason Membreno MD Work Phone: [facility] 02-12-2020 influenza virus vacc ine, unspecified formulation Francisca Lue [facility] 02-12-2020 influenza, high dose seasonal, preservative-free Mason Membreno MD Work Phone: [facility] 03-12-2019 influenza virus vacc ine, unspecified formulation Francisca Lue [facility] 03-12-2019 influenza, high dose seasonal, preservative-free Mason Membreno MD Work Phone: [facility] 04-10-2018 zoster vaccine recombinant Francisca Lue [facility] 02-08-2018 influenza virus vacc ine, unspecified formulation Francisca Lue [facility] 02-08-2018 influenza, high dose seasonal, preservative-free Mason Membreno MD Work Phone: [facility] 02-24-2017 pneumococcal conjuga te vaccine, 13 valent Francisca Lujann [facility] 02-24-2017 tetanus toxoid, redu bob diphtheria toxoid, and acellular pertussis vaccine, adsorbed Francisca Lue [facility] 02-23-2017 influenza virus vacc ine, unspecified formulation Francisca Lue [facility] 02-23-2017 seasonal influenza, intradermal, preservative free Mason Membreno MD Work Phone: [facility] 12-23-2014 influenza virus vacc ine, unspecified formulation Francisca Lue [facility] 12-23-2014 influenza, injectabl e, quadrivalent, preservative free Mason Membreno MD Work Phone: [facility] 07-08-2014 pneumococcal polysaccharide vaccine, 23 valent Mason Membreno MD Work Phone: [facility] 03-11-2014 influenza virus vacc ine, split virus (incl. purified surface antigen) Mason Membreno MD Work Phone: [facility] Payers Date Payer Category Payer Self-pay [id number] 2022 Private Health Insurance [id number] 2018 Medicare MEDICARE MEDICAR E PART A AND B xxxxxxxxxxx 2018-Present [phone] [address] [address] [place] [address] xxxxxxxxxxx [id number] 2018 Private Health Insurance [id number] 2018 Private Health Insurance AETNA AETNA NAP CHOICE POS II xxxxxxxxxx 2018-Present [phone] [address] [place] [address] xxxxxxxxxx [id number] 2017 Medicare [id number] 1959 Medicare [id number] 1959 Private Health Insurance [id number] 1959 Self-pay [id number] 1952 Unknown [id number] 2.16.840.1.387540.3.579. 2.8 1952 Unknown [id number] 2.16.840.1.876466.3.579. 2.1068 1952 Unknown [id number] 2.16.840.1.233095.3.579. 2.173 1952 Unknown [id number] 2.16.840.1.211097.3.579. 2.647 1952 Unknown [id number] 2.16.840.1.622854.3.579. 2.647 1952 Unknown [id number] 2.16.840.1.282260.3.579. 2.593 1952 Unknown [id number] 2.16.840.1.209129.3.579. 2.593 1952 Unknown [id number] 2.16.840.1.165120.3.579. 2.593 1952 Unknown [id number] 2.16.840.1.415896.3.579. 2.593 1952 Unknown [id number] 2.16.840.1.910620.3.579. 2.593 1952 Unknown [id number] 2.16.840.1.110139.3.579. 2.593 1952 Unknown [id number] 2.16.840.1.348151.3.579. 2.593 1952 Unknown [id number] 2.16.840.1.761401.3.579. 2.593 1952 Unknown [id number] 2.16.840.1.700368.3.579. 2.593 1952 Unknown [id number] 2.16.840.1.127687.3.579. 2.593 1952 Unknown [id number] 2.16.840.1.117180.3.579. 2.593 1952 Unknown [id number] 2.16.840.1.130447.3.579. 2.593 1952 Unknown [id number] 2.16.840.1.381486.3.579. 2.593 1952 Unknown [id number] 2.16.840.1.416214.3.579. 2.356 1952 Unknown [id number] 2.16.840.1.216182.3.579. 2.727 1952 Unknown [id number] 2.16.840.1.889572.3.579. 2.727 1952 Unknown [id number] 2.16.840.1.403780.3.579. 2.1286 1952 Unknown [id number] 2.16.840.1.440370.3.579. 2.1259 1952 Unknown [id number] 2.16.840.1.279140.3.579. 2.125 1952 Unknown [id number] 2.16.840.1.477564.3.579. 2.125 1952 Unknown [id number] 2.16.840.1.793580.3.579. 2.1258 1952 Unknown [id number] 2.16.840.1.366331.3.579. 2.1259 1952 Unknown [id number] 2.16.840.1.803294.3.579. 2.125 1952 Unknown [id number] 2.16.840.1.596482.3.579. 2.125 1952 Unknown [id number] 2.16.840.1.091517.3.579. 2.1258 1952 Unknown [id number] 2.16.840.1.523520.3.579. 2.1259 1952 Unknown [id number] 2.16.840.1.808114.3.579. 2.125 1952 Unknown [id number] 2.16.840.1.751625.3.579. 2.125 1952 Unknown [id number] 2.16.840.1.704205.3.579. 2.125 1952 Unknown [id number] 2.16.840.1.615931.3.579. 2.1259 1952 Unknown [id number] 2.16.840.1.679870.3.579. 2.125 1952 Unknown [id number] 2.16.840.1.406739.3.579. 2.1259 1952 Unknown [id number] 2.16.840.1.720307.3.579. 2.1259 1952 Unknown [id number] 2.16.840.1.810081.3.579. 2.1259 Unknown [facility] [id number] Unknown [id number] 2.16.840.1.244524.3.579. 2.531 Unknown [id number] 2.16.840.1.608948.3.579. 2.531 Social History Date Type Detail Facility Start: 12-30-2018 [facility] [place] Start: 12-30-2018 End: 02-27-2024 Alcohol intake Not Currently [place] Start: 1950 Sex Assigned At Not on file M [place] Start: 08-18-2021 End: 10-06-2022 Tobacco smoking status Never smoked tobacco (finding) [facility] Tobacco smoking status Never [facility] Start: 1950 Sex Assigned At Male F [facility] Start: 02-21-2013 Alcoholic beverage intake Current non-drinker of alcohol (finding) [facility] Start: 04-16-2020 End: 02-27-2024 History of Social function [facility] Start: 10-06-2022 Tobacco use and exposure Smokeless [...] Facility 02-28-2023 Functional status Patient at [facility] Work Phone: 10-27-2022 Functional Status N/A [facility] Mental Status Date Assessment Result Facility 02-28-2023 Cognitive function Cognitive Sta tus Patient at [facility] Work Phone: Clinical Notes 08-18-2021 to 07-24-2024 Kyrie Craney DPM - 07/12/2024 10:50 AM Eamon Membreno MD - 07/02/2024 9:00 AM Gage Carney DPM - 04/19/2024 10:20 AM Eamon Membreno MD - 02/27/2024 11:15 AM EDT Note Date & Type Note Facility 07-24-2024 Note [facility] SUBJECTIVE Chief Complaint Patient presents with Chest Pain Coronary Artery Disease Dizziness Maury Issa is a 73 y.o. male here for sick visit for c/o chest pain and increased SOB. HPI PMHx: CAD s/p TRINITY to LAD 10/2021, a.fib, HTN, DM type II, CKD III, ABEL on CPAP 07/24/2024 A couple of days ago he had generalized chest pain that radiated down both arms. This occurred at rest. Sx's resolved with rest/laying down. Lasted a few minutes then resolved on its own. [place] like an achy pain. He thinks he had similar sx's prior to his stent in 2021. His BP has been stable. He c/o increased SOB with exertion. This also started a couple of days ago. He notes his blood sugars have been labile going from 60s to 200s - he recently started a 24 monitor. Dizziness occurs with standing. Denies orthopnea, PND, weight gain, leg swelling, syncope. 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 (CMS/HCC) Major depressive [...] Sacroiliitis Testicular pain B12 deficiency Diabetes mellitus (CMS/HCC) Disorder of the skin and subcutaneous tissue, unspecified H/O: osteoarthritis Hyperopia Nuclear sclerotic cataract Obstructive sleep apnea syndrome Encounter for immunization Presbyopia Sensorineural hearing loss, bilateral Tinnitus Tremor Vitamin D deficiency Encounter for fitting and adjustment of hearing aid Exposure to potentially hazardous substance Idiopathic chronic pancreatitis (CMS/HCC) Hypertensive urgency Melena NSTEMI (non-ST elevated myocardial infarction) (CMS/HCC) Vitreous degeneration, 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 [facility] 07-24-2024 Note Patient here c/o diz ziness, headaches, and HUMPHRIES. Says both of his UE were numb yesterday, and had some chest pain during this episode. Says his blood sugars are all over the place. He is due for echo in Jan 2025. Patient says he did not get dizzy during orthostatic vitals in the office today. Review of Systems Cardiovascular: Positive for chest pain and dyspnea on exertion. Musculoskeletal: Positive for back pain. Gastrointestinal: Positive for heartburn. Neurological: Positive for dizziness, headaches, light-headedness and numbness. All other systems reviewed and are negative. [facility] 07-12-2024 History of Presen t illness Narrative [...] of echocardiogram 03/09/2016 ECHO EF 60-65% Hypertension ([facility]) Hypotension due to medication LVH (left ventricular hypertrophy) 2015 Mild dilation of ascending aorta ([facility]) Nasal obstruction Non-STEMI (non-ST elevated myocardial infarction) ([facility]) 02/2017 ABEL on CPAP 2009 Pain management Renal artery stenosis ([facility]) 03/2016 right Testicular pain 02/15/2022 Medications: Current [...] Rfl: 3 ergocalciferol (Vitamin D-2) 1.25 MG (69455 UT) capsule, Take 1 capsule by mouth [...] Partner Violence: Unknown (06/30/2023) Received from [facility] [place] [employer] Fear of [...] and negative PT pedal pulses NEURO: 5.07 [facility] monofilament test intact to digits and forefoot bilaterally 125Hz tuning fork diminished to 1st MPJ bilaterally ORTHO: Positive pain on palpation to toenails of the left 1,2,3,4,5 toes and right 1,2,3,4,5 toes Negative pain on palpation right medial calcaneal tubercle ASSESSMENT 1. Diabetes mellitus due to underlying condition with diabetic polyneuropathy, with long-term current use of insulin ([facility]) 2. Pain due to onychomycosis of toenails of both feet 3. Plantar fasciitis 4. 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 (CMS/HCC) Major depressive [...] Sacroiliitis Testicular pain B12 deficiency Diabetes mellitus (CMS/HCC) Disorder of the skin and subcutaneous tissue, unspecified H/O: osteoarthritis Hyperopia Nuclear sclerotic cataract Obstructive sleep apnea syndrome Encounter for immunization Presbyopia Sensorineural hearing loss, bilateral Tinnitus Tremor Vitamin D deficiency Encounter for fitting and adjustment of hearing aid Exposure to potentially hazardous substance Idiopathic chronic pancreatitis (CMS/HCC) Hypertensive urgency Melena NSTEMI (non-ST elevated myocardial infarction) ([facility]/HCC) Vitreous degeneration, left eye Primary localized osteoarthrosis of ankle and foot Diarrhea Flatulence Past Medical History: Diagnosis Date Acromioclavicular separation Atrial fibrillation ([facility]CC) Chronic kidney disease Coronary artery disease Diabetes mellitus ([facility]) GERD (gastroesophageal reflux disease) Heart disease 6- [...] 2.11 m??? Medication (more content not included)... [facility] 07-11-2024 Note Patient here for 6 [...] All other systems reviewed and are negative. [facility] 07-02-2024 History of Presen t illness [...] tablet 3 ergocalciferol (Vitamin D-2) 1.25 MG (98643 UT) capsule Take 1 capsule by mouth [...] - The patient is seeing a medical lab technologist for this condition, treatment is deferred to [...] Review, DM- A1C. documented in this encounter [facility] 04-19-2024 History of Presen t illness Narrative [...] Rfl: 3 ergocalciferol (Vitamin D-2) 1.25 MG (16784 UT) capsule, Take 1 capsule by mouth [...] Partner Violence: Unknown (06/30/2023) Received from [facility], [facility] [place] Fear of [...] and negative PT pedal pulses NEURO: 5.07 [facility] monofilament test intact to digits and [...] Kyrie Carney DPM documented in this encounter [facility] 02-27-2024 History of Presen t illness Narrative [...] tablet 3 ergocalciferol (Vitamin D-2) 1.25 MG (73310 UT) capsule Take 1 capsule by mouth [...] Do you have a medical power of privacy attorney?: No Objective : BP 122/72 Pulse [...] need - Influenza, high-dose seasonal, quadrivalent, PF (RAX130) (Fluzone High Dose [place] 0.7mL dose) Type 2 diabetes mellitus with stage 3b chronic kidney disease, with long-term current use of insulin (HCC) ([facility]/HCC) - POCT Glycated hemoglobin, total Follow up in about 4 months (around 06/29/2024) for Routine F/U. Orders Placed This Encounter Procedures Influenza, high-dose seasonal, quadrivalent, PF (YKY354) (Fluzone High Dose [place] 0.7mL dose) POCT Glycated hemoglobin, total Electronically signed by Mason Membreno MD on February 27, 2024 documented in this encounter [facility] 02-07-2024 History of Presen t illness Narrative [...] [place].). Failed Semeiology Circadian Noct oxim PSG (PR) - (Jimmy/Juhi, split) - AHI=76 (interp only). PAPT (Page/Antionette) - AHI=0 @ 14 (no supine), =0 @ 15 (REM, no supine) =1.0 @ 16 (supine and REM) (Page/Rainier) - AHI=0 @ 17-18 (no supine), first [...] 2011 AND PROSTATITIS OBSTRUCTION Bradycardia 11/20/2021 Depression ([facility]) Deviated nasal septum Diabetes mellitus ([facility]) Edema GERD (gastroesophageal reflux disease) Hx of echocardiogram 03/09/2016 ECHO EF 60-65% Hypertension ([facility]) Hypotension due to medication LVH (left ventricular hypertrophy) 2015 Mild dilation of ascending aorta ([facility]) Nasal obstruction Non-STEMI (non-ST elevated myocardial infarction) ([facility]) 02/2017 ABEL on CPAP 2009 Pain management Renal artery stenosis ([facility]) 03/2016 right Testicular pain 02/15/2022 Past Surgical [...] in the morning. 90 tablet 3 Dextromethorphan-Pyrilamine ([place] DM) 7.5-7.5 MG/5ML liquid Take 10 mL [...] tablet 3 ergocalciferol (Vitamin D-2) 1.25 MG (73186 UT) capsule Take 1 capsule by mouth [...] Sher White M.D. documented in this encounter [facility] 02-06-2024 History of Presen t illness Narrative [...] in the morning. 90 tablet 3 Dextromethorphan-Pyrilamine ([place] DM) 7.5-7.5 MG/5ML liquid Take 10 mL [...] tablet 3 ergocalciferol (Vitamin D-2) 1.25 MG (38844 UT) capsule Take 1 capsule by mouth [...] F/U med changes. documented in this encounter [facility] 02-02-2024 History of Presen t illness Narrative Images from the original note were not included. Subjective Patient ID: Maury Issa is a 73 y.o. male who presents for a cold he has had He states he has a cough, headaches since the . Went to [facility] and they tested him as everything came [...] tablet 3 ergocalciferol (Vitamin D-2) 1.25 MG (59902 UT) capsule Take 1 capsule by mouth [...] 2011 AND PROSTATITIS OBSTRUCTION Bradycardia 11/20/2021 Depression ([facility]) Deviated nasal septum Diabetes mellitus ([facility]) Edema GERD (gastroesophageal reflux disease) Hx of echocardiogram 03/09/2016 ECHO EF 60-65% Hypertension ([facility]) Hypotension due to medication LVH (left ventricular hypertrophy) 2015 Mild dilation of ascending aorta ([facility]/HCC) Nasal obstruction Non-STEMI (non-ST elevated myocardial infarction) ([facility]) 02/2017 ABEL on CPAP 2009 Pain management Renal artery stenosis ([facility]/HCC) 03/2016 right Testicular pain 02/15/2022 Past Surgical [...] its most common side effects. - Dextromethorphan-Pyrilamine ([place] DM) 7.5-7.5 MG/5ML liquid; Take 10 mL by mouth 4 (four) times a day as needed (cough and congestion) for up to 10 days Dispense: 473 mL; Refill: 0 No follow-ups on file. documented in this encounter [facility] 02-02-2024 Instructions Sophia Zaldivar NP - 02/02/2024 2:30 PM EDT Cefdinir added x 10 days [place] DM added as needed documented in this encounter [facility] 01-13-2024 Note Cardiovascular Medic ine [facility] SUBJECTIVE HPI PMHx: CAD s/p TRINITY to LAD 10/2021, a.fib, HTN, DM type II, CKD III, ABEL on CPAP Patient presents today for follow-up. Maury Issa is a 73 y.o. male here for follow-up cardiac MRI performed at [facility] on 01/11/2024. 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 (CMS/HCC) Deformity of [...] bladder emptying Frequent urination Head injury Leukocytosis detention current use of insulin (CMS/HCC) Major depressive [...] Neuropathy due to type 2 diabetes mellitus ([facility]/HCC) Osteoarthritis of right foot Peripheral venous insufficiency Renal cyst Sacroiliitis ([facility]/HCC) Testicular pain B12 deficiency Diabetes mellitus ([facility]/HCC) Disorder of the skin and subcutaneous tissue, unspecified H/O: osteoarthritis Hyperopia Nuclear sclerotic cataract Obstructive sleep apnea syndrome Encounter for immunization Presbyopia Sensorineural hearing loss, bilateral Tinnitus Tremor Vitamin D deficiency Encounter for fitting and adjustment of hearing aid Exposure to potentially hazardous substance Idiopathic chronic pancreatitis ([facility]/HCC) Hypertensive urgency Melena NSTEMI (non-ST elevated myocardial infarction) ([facility]) Vitreous degeneration, left eye Primary localized osteoarthrosis of ankle and foot Diarrhea Past Medical History: Diagnosis Date Acromioclavicular separation Atrial fibrillation ([facility]/HCC) Chronic kidney disease Coronary artery disease Diabetes mellitus ([facility]) GERD (gastroesophageal reflux disease) Heart disease - [...] , Rfl: carvedilol (more content not included)... [facility] 01-12-2024 History of Presen t illness [...] 2011 AND PROSTATITIS OBSTRUCTION Bradycardia 11/20/2021 Depression ([facility]) Deviated nasal septum Diabetes mellitus ([facility]) Edema GERD (gastroesophageal reflux disease) Hx of echocardiogram 03/09/2016 ECHO EF 60-65% Hypertension ([facility]) Hypotension due to medication LVH (left ventricular hypertrophy) 2015 Mild dilation of ascending aorta ([facility]) Nasal obstruction Non-STEMI (non-ST elevated myocardial infarction) ([facility]) 02/2017 ABEL on CPAP 2009 Pain management Renal artery stenosis ([facility]) 03/2016 right Testicular pain 02/15/2022 Medications: Current [...] Rfl: 3 ergocalciferol (Vitamin D-2) 1.25 MG (02056 UT) capsule, Take 1 capsule by mouth [...] Partner Violence: Unknown (06/30/2023) Received from [facility], [facility] [place] Fear of [...] and negative PT pedal pulses NEURO: 5.07 [facility] monofilament test intact to digits and forefoot bilaterally 125Hz tuning fork diminished to 1st MPJ bilaterally ORTHO: Positive pain on palpation to nails 1 through 10 Negative pain on palpation right medial calcaneal tubercle ASSESSMENT 1. Plantar fasciitis 2. Contracture of right ankle 3. Diabetes mellitus due to underlying condition with diabetic polyneuropathy, with long-term current use of insulin ([facility]) 4. Onychomycosis 5. Toe pain, bilateral PLAN [...] feet and discussed proper shoe gear Kyrie A Brown, DPM documented in this encounter [facility] 01-11-2024 History of Presen t illness Narrative [...] PATIENT PRESENTS WITH AN IMPLANTABLE OR ATTACHED CERTIFIED PHLEBOTOMY TECHNICIAN: No ALLERGIES: Reviewed and unchanged CONTRAST ALLERGY: NO. EXAM: MRI - CONTRAST TYPE: GROUP II PERIPHERAL IV DATA: Ambulatory: A peripheral IV was started in the Right antecubital site with a Angio cath: 22 gauge. RADIOLOGY DEPARTMENT: MR; Exam(s) Completed: Cardiac: Cardiac SIGNATURE: ISAÍAS Fontanez) PATIENT NAME: Maury Issa DATE: January 11, 2024 TIME: 3:46 PM documented in this encounter [facility] 01-11-2024 Note HNO ID: [id number] Author: MIGUEL ÁNGEL OVALLE RT (R) Service: [...] PATIENT PRESENTS WITH AN IMPLANTABLE OR ATTACHED CERTIFIED PHLEBOTOMY TECHNICIAN: No ALLERGIES: Reviewed and unchanged CONTRAST ALLERGY: NO. EXAM: MRI - CONTRAST TYPE: GROUP II PERIPHERAL IV DATA: Ambulatory: A peripheral IV was started in the Right antecubital site with a Angio cath: 22 gauge. RADIOLOGY DEPARTMENT: MR; Exam(s) Completed: Cardiac: Cardiac SIGNATURE: RT Estee(R) PATIENT NAME: Maury Issa DATE: January 11, 2024 TIME: 3:46 PM [facility] 01-05-2024 History of Presen t illness Narrative [...] tablet 3 ergocalciferol (Vitamin D-2) 1.25 MG (18449 UT) capsule Take 1 capsule by mouth [...] F/U med changes. documented in this encounter [facility] 01-04-2024 Telephone encounter Note Summary: CMR Protocol Aye Boateng, Could you please provide a CMR Protocol for aMury Issa who is scheduled as an Outpatient for a Cardiac MRI on TuesdayJanuary 10 at 3:00pm. Order in scanned documents date 12/02/23 as Miscellaneous Imaging. Mr Cardiac Morphology and function w & wo iv contrast. DX: Hypertrophic Cardiomyopathy. Thank you! Sincerely, Francia Dumont RT(R)MRVI [facility] 01-04-2024 Miscellaneous Notes Summary: CMR Protocol Aye [...] Francia Dumont RT(R)MRVI documented in this encounter [facility] 12-26-2023 History of Presen t illness Narrative [...] tablet 3 ergocalciferol (Vitamin D-2) 1.25 MG (89331 UT) capsule Take 1 capsule by mouth [...] for Routine F/U. documented in this encounter [facility] 12-02-[address] [facility] SUBJECTIVE Maury Issa is a 73 y.o. 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 (CMS/HCC) Deformity of metatarsal Depressive disorder Deviated nasal septum Type 2 diabetes mellitus without complication (CMS/HCC) Diabetic mononeuropathy (CMS/HCC) Diabetic renal disease ([facility]/HCC) Diverticular disease of colon Dyspnea on exertion Dysuria Edema of both lower extremities Edema of lower extremity Benign essential tremor Morbid (severe) obesity with alveolar hypoventilation (CMS/HCC) GERD (gastroesophageal reflux disease) Acute stress reaction Microhematuria Elevated PSA History of DVT (deep vein thrombosis) Heart disease LVH (left ventricular hypertrophy) due to hypertensive disease, without heart failure Type 2 diabetes mellitus with hyperglycemia ([facility]) Incomplete bladder emptying Frequent urination Head injury Leukocytosis supervisor intermediates current use of insulin ([facility]) Major depressive disorder, single episode, unspecified Migraine Mild intermittent asthma Mixed hyperlipidemia Nasal obstruction Nocturia Reactive airway disease Paroxysmal atrial fibrillation ([facility]/HCC) Polyneuropathy Weak urinary stream Osteoarthritis of right knee RLS (restless legs syndrome) Cervical stenosis of spine Stage 3 chronic kidney disease ([facility]) Urge incontinence Urinary urgency Abnormal stress test Stable angina ([facility]) Obesity with body mass index 30 or greater Diverticulitis Lower urinary tract symptoms due to benign prostatic hyperplasia Anticoagulated Atypical small acinar proliferation of prostate Bilateral varicoceles Contracture, right ankle Diabetic nephropathy with proteinuria ([facility]) Disturbance in sleep behavior Diverticulosis of large intestine without hemorrhage Edema Glucosuria Headaches, cluster Indigestion LLQ pain Neuropathy due to type 2 diabetes mellitus ([facility]) Osteoarthritis of right foot Peripheral venous insufficiency Renal cyst Sacroiliitis ([facility]) Testicular pain B12 deficiency Diabetes mellitus ([facility]) Disorder of the skin and subcutaneous tissue, unspecified H/O: osteoarthritis Hyperopia Nuclear sclerotic cataract Obstructive sleep apnea syndrome Encounter for immunization Presbyopia Sensorineural hearing loss, bilateral Tinnitus Tremor Vitamin D deficiency Encounter for fitting and adjustment of hearing aid Exposure to potentially hazardous substance Idiopathic chronic pancreatitis ([facility]) Hypertensive urgency Melena NSTEMI (non-ST elevated myocardial infarction) ([facility]) Vitreous degeneration, left eye Primary localized osteoarthrosis of ankle and foot Diarrhea Past Medical History: Diagnosis Date Acromioclavicular separation Atrial fibrillation ([facility]) Chronic kidney disease Coronary artery disease Diabetes mellitus ([facility]) GERD (gastroesophageal reflux disease) Heart disease 6- [...] (1000 units) tab (more content not included)... 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 He asked for ECG for chest pain s/p lumbar RFA yesterday. ECG showed NSR- Normal ECG . I advised patient to go to the ED if chest pain becomes worse or he becomes SOB. He thought maybe the pain was anxiety, as he did not feel well after his procedure yesterday. [facility] 06-16-2023 Evaluation note Encounter Date Diagnosis Assessment Notes Jun, Contact with and (suspected) exposure to other viral communicable diseases (ICD-10 - Z20.828) Jun, Viral URI with cough (ICD-10 - J06.9) Advised patient that COVID/Influenza A/B test was negative today. Advised patient that will treat as viral URI. Supportive care as directed, increase fluids and rest, Tylenol/Motrin as directed, rx of [place] and Flonase, cool mist humidifier, throat lozenges. [...] treatment plan. Patient left in stable condition. [facility] Other 12-05-2023 Evaluation note* Encounter Date Diagnosis [...] K31.7) Apr, Abdominal pain (ICD-10 - R10.9) [facility] Other 10-23-2023 Discharge summary Author Dwain Peñaloza [facility] February 28, 2023 12:22pm Note Date/Time February 28, 2023 1 2:22pm [facility] [address] [place] [address] Discharge Summary Signed Patient: Maury Issa MR#: [id number] : 1950 Acct:[id number] Age/Sex: 72 / M Adm Date: 3 Loc: Room: [address] [place] [address]: Dwain Peñaloza MD Copies to: [...] TAKE 1 TABLET BY MOUTH TWICE DAILY [place] DM 7.5-7.5 mg/5 mL liquid 10 ml [...] 02/28/23 1222 [facility] Work Phone: 1(136) 528-169010-23-2023 Progress note Author Nikolas Villafana [facility] February 28, 2023 9:27am Note Date/Time February 28, 2023 9 :27am [facility] [address] [place] [address] Gastroenterology PN Signed Patient: Maury Issa MR#: [id number] : 1950 Acct:[id number] Age/Sex: 72 / M Adm Date: 3 Loc: Room: [address] [place] [address] Type: ADM IN Attending Dr: Dwain Peñaloza [...] Lactated Ringers IV 02/25/24 15:44 75 mls/hr .[id number] ARLINE Administration Insulin Aspart 0 units 02/25/23 00:00 02/28/23 06:35 Insulin Aspart 300 Units/3 Ml Insuln.Pen SUBCUT 02/25/24 00:00 Not Given Q6HR [facility] Protocol Insulin Glargine 20 units 02/25/23 09:00 [...] MD> 02/28/23926 [facility] Work Phone: 1(768) 468-862410-22-2023 Progress note Author Nikolas Villafana [facility] February 27, 2023 10:10am Note Date/Time February 27, 2023 1 0:11am [facility] [address] [place] [address] Gastroenterology PN Signed Patient: Maury Issa MR#: [id number] : 1950 Acct:[id number] Age/Sex: 72 / M Adm Date: 3 Loc: Room: [address] [place] [address] Type: ADM IN Attending Dr: Shruti Savage [...] Lactated Ringers IV 02/25/24 15:44 75 mls/hr .[id number] ARLINE Administration Insulin Aspart 0 units 02/25/23 [...] we will continue to follow. Documented By: Nikolsa Villafana MD 02/27/23 101 Signed By: <Electronically signed by Nikolas Villafana MD> 02/27/23 1010 [facility] Work Phone: 1(785) 368-431910-22-2023 Progress note Author Shruti Savage [facility] February 27, 2023 9:09am Note Date/Time February 27, 2023 9 :07am [facility] [address] [place] [address] Hospitalist Progress Note Signed with Addenda Patient: Maury Issa MR#: [id number] : 1950 Acct:[id number] Age/Sex: 72 / M Adm Date: 3 Loc: Room: [address] [place] [address] Type: ADM IN Attending Dr: Shruti Savage [...] 02/26/23 21:21 Gabapentin 300 Mg Capsule PO 10/19/24 21:59 300 mg QHS ARLINE Administration Glucose 0 gm 02/24/23 23:29 Dextrose 40% Gel 15 Gm Tube PO 02/24/24 23:28 PRN PRN Hypoglycemia Hydralazine HCl 10 mg 02/24/23 23:29 Hydralazine 20 Mg/Ml Vial IV-PUSH 02/24/24 23:28 Q4H PRN if SBP > 185 Lactated Ringer's 1,000 mls @ 75 mls/hr 02/25/23 15:45 02/27/23 02:02 Lactated Ringers IV 02/25/24 15:44 75 mls/hr .[id number] ARLINE Administration Insulin Aspart 0 units 02/25/23 [...] <Electronically signed by Shruti Savage MD> 02/27/23 09 [facility] Work Phone: 1(125) 281-844610-21-2023 Progress note Author Shruti Savage [facility] February 26, 2023 9:25am Note Date/Time February 26, 2023 9 :22am [facility] [address] [place] [address] Hospitalist Progress Note Signed Patient: Maury Issa MR#: [id number] : 1950 Acct:[id number] Age/Sex: 72 / M Adm Date: 3 Loc: Room: [address] [place] [address] Type: ADM IN Attending Dr: Shruti Savage [...] Lactated Ringers IV 02/25/24 15:44 Not Given .[id number] [facility] Insulin Aspart 0 units 02/25/23 00:00 02/26/23 06:14 Insulin Aspart 300 Units/3 Ml Insuln.Pen SUBCUT 02/25/24 00:00 Not Given Q6HR [facility] Protocol Insulin Glargine 20 units 02/25/23 09:00 [...] MD> 02/26/23924 [facility] Work Phone: 1(364) 823-237810-20-2023 Progress note Author Shruti Savage [facility] February 25, 2023 11:29am Note Date/Time February 25, 2023 1 1:11am [facility] [address] [place] [address] Hospitalist Progress Note Signed Patient: Maury Issa MR#: [id number] : 1950 Acct:[id number] Age/Sex: 72 / M Adm Date: 3 Loc: 3T Room: [address] [place] [address] Type: ADM IN Attending Dr: Shruti Savage MD Copies to: ~ Date of Service: 02/25/2023 Subjective Subjective Narrative: Maury Issa is a 72 y.o. male with a PMH of A Fib, diabetes, hypercholesterolemia, GERD, [place], HTN, and sleep apnea on CPAP who [...] 1,000 Ml IV 02/25/24 00:14 75 mls/hr .[id number] ARLINE Administration Sodium Chloride 500 mls @ [...] Monitor on Telemetry. Patient was transferred from [facility] to our facility due to acute GI bleed. He recently had gastric polypectomy. GI was consulted. Input appreciated. Recommended to hold AC/AP. Continue IV PPI. Hemoglobin dropped on arrival here to 7.0 from 8.0 at Page. Patient was transfused 2 units of blood. [...] <Electronically signed by Shruti Savage MD> 02/25/23 5279 [facility] Work Phone: 1(435) 516-163410-20-2023 Consult note Author Nikolas Villafana [facility] February 25, 2023 8:35am Note Date/Time February 25, 2023 8 :31am [facility] [address] [place] [address] Gastroenterology Consult Note Signed Patient: Maury Issa MR#: [id number] : 1950 Acct:[id number] Age/Sex: 72 / M Adm Date: 3 Loc: Room: [address] [place] [address] Type: ADM IN Attending Dr: Shruti Savage MD Copies to: Nikolas J MD Mason Villafana II, MD Obaydah M Daromar, MD~ HPI [...] Hematologic/Lymphatic: Denies easy bruising and Denies lymphadenopathy [facility] Medical History (Updated 02/25/23 @ 08:33 [...] Type: None Social History Comments: [facility] in [facility] Medications and Allergies Allergies isosorbide Allergy (Verified [...] mg inhalation BID 02/24/23 [History Confirmed 02/24/23] sydqga-xvayjuos-insthym 40,000-126,000-168,000 unit capsule, delay rel (Zenpep) 2 cap PO TIDWMEAL 02/24/23 [History Confirmed 02/24/23] prednisone 20 mg tablet 20 mg PO DAILY 02/24/23 [History Confirmed 02/24/23] pyrilamine 7.5 mg-dextromethorphan 7.5 mg/5 mL oral liquid ([place] DM) 10 ml PO Q8HR 02/24/23 [History [...] % (Auto) 85.8 Lymph % (Auto) 9.6 [place] % (Auto) 4.5 Eos % (Auto) 0.0 Baso % (Auto) 0.1 Nucleat RBC Rel Count 0.0 Neut # (Auto) 11.7 H Lymph # (Auto) 1.3 [place] # (Auto) 0.6 Eos # (Auto) 0.0 Baso # (Auto) 0.0 POC Glucose Troponin I High Sens 13.6 Blood Type AB Positive Blood Type Recheck Antibody Screen Negative Crossmatch (AHG) See Detail 02/25/23 02/25/23 02/25/23 00:24 00:42 05:38 Corrected WBC Uncorrected WBC Count RBC Hgb Hct MCV MCH MCHC RDW Plt Count MPV Neut % (Auto) Lymph % (Auto) [place] % (Auto) Eos % (Auto) Baso % (Auto) Nucleat RBC Rel Count Neut # (Auto) Lymph # (Auto) [place] # (Auto) Eos # (Auto) Baso # [...] to follow. Documented By: Nikolas Villafana MD 02/25/23829 Signed By: <Electronically signed by Nikolas Villafana MD> 02/25/2335 [facility] Work Phone: 1(700) 532-345310-20-2023 History and physical note Author Rachel Jin [facility] February 24, 2023 11:59pm Note Date/Time February 24, 2023 1 1:55pm [facility] [address] [place] [address] Hospitalist H&P Signed Patient: Maury Issa MR#: [id number] : 1950 Acct:[id number] Age/Sex: 72 / M Adm Date: 3 Loc: Room: [address] [place] [address] Type: ADM IN Attending Dr: Rachel Jin [...] Previous records in the computer system reviewed [facility] Medical History (Updated 02/18/23 @ 10:20 by Esteban Steward MD) Afib Diabetes Elevated cholesterol GERD (gastroesophageal reflux disease) Heart attack Hypertension Sleep apnea treated with continuous positive airway pressure (CPAP) Surgical History (Updated 02/18/23 @ 09:58 by Krysten Salazar, NISSA) H/O heart artery stent H/O removal of cyst Family History (Updated 02/18/23 @ 09:58 by Krysten Salazar RN) Other No significant family history Social History Smoking Status: Never smoker Substance Use Type: None Social History Comments: Lives in Critical access hospital Medications and Allergies Allergies isosorbide Allergy (Verified [...] mg inhalation BID 02/24/23 [History Confirmed 02/24/23] dyvzas-xjnhuosy-pailxan 40,000-126,000-168,000 unit capsule, delay rel (Zenpep) 2 cap PO TIDWMEAL 02/24/23 [History Confirmed 02/24/23] prednisone 20 mg tablet 20 mg PO DAILY 02/24/23 [History Confirmed 02/24/23] pyrilamine 7.5 mg-dextromethorphan 7.5 mg/5 mL oral liquid ([place] DM) 10 ml PO Q8HR 02/24/23 [History [...] 3 Documented By: Rachel Jin MD 02/24/23 1811 Signed By: <Electronically signed by Rachel Jin MD> 02/24/23 9831 [facility] Work Phone: [phone]) 153-664510-17-2023 Evaluation note* Encounter Date Diagnosis Assessment Notes [...] viral supportive care, rx of prednisone and [place], Tylenol as needed for body aches/fever. Increase [...] treatment plan. Patient left in stable condition [facility] Other 10-13-2023 Evaluation note* Encounter Date Diagnosis Assessment Notes Treatment Notes Treatment Clinical Notes Feb, Exocrine pancreatic insufficiency (ICD-10 - K86.81) Feb, Abdominal pain (ICD-10 - R10.9) [facility] Other 10-13[facility]* Encounter Date Diagnosis [...] Jan, LUQ abdominal pain (ICD-10 - R10.12) [place] [facility] Other 06-21-2023 Hospital Discharge instructions Patient Education [...] treatment? Where to find more information [employer] [place] [employer]: www.cancer.org [place] [employer]: www.auanet.org Contact a health care [...] provider. Document Revised: 10/19/2021 Document Reviewed: 10/19/2021 [employer] Patient Education 2022 [employer]. Follow Up Care 08/18/2021 10:28:01 With:Ignacio KNOTT, ROSE MARIE Stinson, URO Address: [address] [place] [address]- [phone] When: Unknown Comments:SUKHWINDER [facility] 12-13-2022 Evaluation note* Encounter Date Diagnosis Assessment Notes Treatment Notes Treatment Clinical Notes Apr, Atypical chest pain (ICD-10 - R07.89) PT TO CALL AND SCHEDULE EGD W/JEAN-BAPTISTE AND COLONOSCOPY AFTER CARDIAC CLEARANCE. Apr, GERD (gastroesophageal reflux disease) (ICD-10 - K21.9) Apr, History of colon polyps (ICD-10 - Z86.010) Apr, Nausea (ICD-10 - R11.0) [facility] Other 12-08-2022 Note [id number]:127[facility] 10-21-2021 History general Narrative - Reported* Type Description Date Medical History hypertension Medical History diabetes mallitus Medical History Hypercholesteremia Medical History chronic bronchitis Medical History diverticulosis Medical History cardiac stent October 21, 2021 Surgical History rt shoulder surgery Surgical History rt knee surgery [facility] Other 06-15-2022 History general Narrative - Reported* Type Description Date Medical History hypertension Medical History diabetes mallitus Medical History Hypercholesteremia Medical History chronic bronchitis Medical History diverticulosis Medical History cardiac stent October 21, 2021 Surgical History rt shoulder surgery Surgical History rt knee surgery Surgical History colonoscopy [facility] Other 06-15-2022 History general Narrative - Reported* Type Description Date Medical History hypertension Medical History diabetes mallitus Medical History Hypercholesteremia Medical History chronic bronchitis Medical History diverticulosis Medical History cardiac stent October 21, 2021 Surgical History rt shoulder surgery Surgical History rt knee surgery Surgical History colonoscopy Hospitalization History see above [facility] Other 06-10-2022 Evaluation note* Encounter Date Diagnosis [...] Patient care instructions given in writting by [facility] Care At Home document. [facility] Other 05-25-2022 NoteCARDIAC STRESS TEST Requesting Physician: Jayson Procedure Date:09/30/2021 PERFORMING PHYSICIAN: Tomas Rajan M.D. REASON [...] report for nuclear myocardial perfusion imaging report.[id number] Discharge [facility] Patient Education 08/18/2021 10:15:13 [...] including vitamins, herbs, eye drops, creams, and exsa-ean-lityzub medicines. This also includes: ?Medicines to assist [...] 05/28/2005 Document Revised: 04/07/2018 Document Reviewed: 01/30/2018 [employer] Patient Education 2020 [employer]. Follow Up Care 07/08/2020 12:08:08 With:Maury Kothari Jr., MD, URO Address: [facility] [address], [place] [address]- When:08/18/2022 Comments:w/ psa [facility] evaluation + Plan note Future Appointments Appointment Date:08/24/2022 08:00:00 AM Scheduled Provider:Maury Kothari Jr., MD Location:[facility] Appointment Type:URO Office Visit Diagnostic Tests Pending * PSA Total 05/09/22 [facility] evalozrqfn note* Diagnosis Onset Date Resolution Status Diarrhea [facility] Work Phone: Evaluation note* Diagnosis Onset Date Resolution Status Diarrhea acute Hypertension acute Melena acute [facility] Work Phone: Evaluation note* Diagnosis Onset Date Resolution Status Viral URI with cough acute [facility] Work Phone: Evaluation note* Diagnosis RLS (restless [...] polyneuropathy, with long-term current use of insulin ([facility]) Onychomycosis Dermatophytosis of nail Toe pain, bilateral [...] right ankle documented in this encounter [facility] Narrative - Reported* Type Description Date Medical History hypertension Medical History diabetes mallitus Medical History Hypercholesteremia Medical History chronic bronchitis Medical History diverticulosis Surgical History lt shoulder surgery Surgical History rt knee surgery [facility] Other Hospital course Narrative No data available for this section [facility] Discharge instructions Additional Instructions DISCHARGE INSTRUCTIONS [...] if you have any problems. -Office number [phone] Work Phone: Progress note No data available for this section [facility] Summary Purpose Family History Relationship Condition Age at Onset Recorded Date/T jonathan Not Specified No pertinent family history Unknown Relationship Condition Age at Onset Recorded Date/T jonathan Not Specified No pertinent family history Unknown father Unknown mother Unknown Advance Directives Documents on File Type Date Recorded Patient Locator Expl anation Advance Directives and Living Will Power of Utility Bill Collection Clerk Advance Directive Response Recorded Date/ Time Advance [...] be sent through Care Everywhere. * Hypoglycemia (Slovak) documented in this encounter Assessments Diagnosis Hypoglycemia- [...] section and content) DATE CREATED AUTHOR 09/26/2018 [facility] DATE CREATED AUTHOR AUTHOR'S ORGANIZ ATION 12/30/2018 [facility] DATE CREATED AUTHOR AUTHOR'S ORGANIZ ATION 10/29/2021 [facility] DATE CREATED AUTHOR AUTHOR'S ORGANIZ ATION 09/15/2022 [facility] DATE CREATED AUTHOR AUTHOR'S ORGANIZ ATION 10/27/2022 [facility] DATE CREATED AUTHOR AUTHOR'S ORGANIZ ATION 10/31/2022 [facility] DATE CREATED AUTHOR AUTHOR'S ORGANIZ ATION 05/09/2023 [facility] DATE CREATED AUTHOR AUTHOR'S ORGANIZ ATION 12/12/2023 [facility] DATE CREATED AUTHOR AUTHOR'S ORGANIZ ATION 01/13/2024 [facility] DATE CREATED AUTHOR AUTHOR'S ORGANIZ ATION 07/14/2024 [facility] DATE CREATED AUTHOR AUTHOR'S ORGANIZ ATION 07/14/2024 [facility] DATE CREATED AUTHOR AUTHOR'S ORGANIZ ATION 07/26/2024 [facility] Reason for Visit (unrecogniz ed section and content) Reason Comments Hypoglycemia blood sugar dropped to 30 today Reason Comments Orders Reason Comments Tremors Reason Comments Medicare Annual Wellness Visit Subsequen t Hypertension Pt made changes to m etoprolol as directedPt was restarted on lisinopril by single resource boss at [place]-- per pt nephrolpogist requested PCP call him-- dr honeycutt [phone] Reason Comments DM Foot Care Dm nail [...] Active Dwain Peñaloza MD Attending Provider Active Antique Repairer Relationship Specialty Start Date End Date Herbert Peters MD PCP - General Family Medicine 02/14/13 Antique Repairer Relationship Specialty Start Date End Date Herbert Peters MD PCP - General Family Medicine 02/14/13 Team Status: Inactive Member Role Status Dates Mason Membreno II MD Primary Care Provider Active Start: January 27, 2024 End: January 27, 2024 Lotus Casillas APRN Attending Provider Active Start: January 27, 2024 End: January 27, 2024 Antique Repairer Relationship Specialty Start Date End Date Mason Mmebreno MD [address] [place] [address] PCP - ACO Reach 09/30/22 Mason Membreno MD [address] [place] [address] PCP - General Internal Medicine 10/06/22 Antique Repairer Relationship Specialty Start Date End Date Mason Membreno MD [address] [place] [address] PCP - ACO Reach 09/30/22 Mason Membreno MD [address] [place] [address] PCP - General Internal Medicine 10/06/22 Antique Repairer Relationship Specialty Start Date End Date Mason Membreno MD [address] [place] [address] PCP - ACO Reach 09/30/22 Mason Membreno MD [address] [place] [address] PCP - General Internal Medicine 10/06/22 Antique Repairer Relationship Specialty Start Date End Date Mason Membreno MD [address] [place] [address] PCP - ACO Reach 09/30/22 Mason Membreno MD [address] [place] [address] PCP - General Internal Medicine 10/06/22 Antique Repairer Relationship Specialty Start Date End Date Mason Membreno MD [address] [place] [address] PCP - ACO Reach 09/30/22 Mason Membreno MD [address] [place] [address] PCP - General Internal Medicine 10/06/22 Antique Repairer Relationship Specialty Start Date End Date Mason Membreno MD [address] [place] [address] PCP - ACO Reach 09/30/22 Mason Membreno MD [address] [place] [address] PCP - General Internal Medicine 10/06/22 Antique Repairer Relationship Specialty Start Date End Date Mason Membreno MD [address] [place] [address] PCP - ACO Reach 09/30/22 Mason Membreno MD [address] [place] [address] PCP - General Internal Medicine 10/06/22 Antique Repairer Relationship Specialty Start Date End Date Mason Membreno MD [address] [place] [address] PCP - ACO Reach 09/30/22 Mason Membreno MD [address] [place] [address] PCP - General Internal Medicine 10/06/22 Antique Repairer Relationship Specialty Start Date End Date Mason Membreno MD [address] [place] [address] PCP - ACO Reach 09/30/22 Mason Membreno MD [address] [place] [address] PCP - General Internal Medicine 10/06/22 Antique Repairer Relationship Specialty Start Date End Date Mason Membreno MD [address] [place] [address] PCP - ACO Reach 09/30/22 Mason Membreno MD [address] [place] [address] PCP - General Internal Medicine 10/06/22 Antique Repairer Relationship Specialty Start Date End Date Mason Membreno MD [address] [place] [address] PCP - ACO Reach 09/30/22 Mason Membreno MD [address] [place] [address] PCP - General Internal Medicine 10/06/22 Antique Repairer Relationship Specialty Start Date End Date Mason Membreno MD [address] [place] [address] PCP - ACO Reach 09/30/22 Mason Membreno MD [address] [place] [address] PCP - General Internal Medicine 10/06/22 Antique Repairer Relationship Specialty Start Date End Date Mason Membreno MD [address] [place] [address] PCP - ACO Reach 09/30/22 Mason Membreno MD [address] [place] [address] PCP - General Internal Medicine 10/06/22 Antique Repairer Relationship Specialty Start Date End Date Mason Membreno MD [address] [place] [address] PCP - ACO Reach 09/30/22 Mason Membreno MD [address] [place] [address] PCP - General Internal Medicine 10/06/22 Antique Repairer Relationship Specialty Start Date End Date Mason Membreno MD [address] [place] [address] PCP - ACO Reach 09/30/22 Mason Membreno MD [address] [place] [address] PCP - General Internal Medicine 10/06/22 Antique Repairer Relationship Specialty Start Date End Date Mason Membreno MD [address] [place] [address] PCP - ACO Reach 09/30/22 Mason Membreno MD [address] [place] [address] PCP - General Internal Medicine 10/06/22 Source Comments (unrecognize d section and content) In the event this informatio n is protected by the Federal Confidentiality of Alcohol and Drug Abuse Patient Records regulations: The Federal rules restrict any use of the information to criminally investigate or prosecute any alcohol or drug abuse patient.[facility] Center[facility] the event this information is protected by the Federal Confidentiality of Alcohol and Drug Abuse Patient Records regulations: The Federal rules restrict any use of the information to criminally investigate or prosecute any alcohol or drug abuse patient.[facility] Goals (unrecognized section and content) Goals may [...] BE BASED ON THE PRIMARY CLINICAL RECORDS. [facility] [employer] [facility]. provides no warranty or guarantee of the accuracy or completeness of information in this document.
== END 2024-07-31 08:00 | disposition home or self-care (01) ==
LOC: CARD 07:59
PROVIDERS: PCP Internal Medicine; Visit Provider Nurse Practitioner Family
DX: R42 Dizziness and giddiness (principal); R20.0 Anesthesia of skin; I48.0 Paroxysmal atrial fibrillation; I51.7 Cardiomegaly
CPT/HCPCS: 93306; 93880

== ENCOUNTER 2024-10-16 16:29 | Emergency (ER) | payer MEDICARE, OTHER, SELFPAY ==
[2024-10-16] VITALS (69 sets, daily range): BP systolic 81–143; BP diastolic 51–116; PULSE 53–132; TEMP 36.8; O2SAT 88–99; BMI 29.0
--- NOTE | 2024-10-16 16:39 | ECG_ITS ---
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 Measurements Intervals [place] Rate: 65 P: 62 IN: 200 QRS: 27 QRSD: 102 T: 73 QT: 414 QTc: 426 Interpretive Statements 1100 Sinus rhythm 9110 normal ECG Compared to ECG 02/24/2023 18:01:11 Left-axis deviation no longer present Nonspecific intraventricular conduction block no longer present Electronically Signed On 10-16-2024 21:44:27 EDT by WILDA CAMPO M.D.
--- NOTE | 2024-10-16 16:51 | ED.WEAKNESS1 ---
Documented by User: Angela Durán MD 10/16/24 17:31 HPI - Weakness General Chief complaint: Weakness Stated complaint: Hypotension Time Seen by Provider: 10/16/24 16:39 Source: patient Mode of arrival: walk-in History of Present Illness HPI Narrative: The patient is 73-year-old male is coming to the ER with a dizziness for the last 2 weeks, patient denies any sensation that the room spinning, he is also denies any headache nausea vomiting or any other concerns The patient denies any diarrhea or any vomiting and he have a normal appetite He was evaluated by his primary care doctor almost few days ago and was diagnosed with possible impaction of wax in his left ear The patient was started antihistaminic Related Data Home Medications ?Medication ?Instructions ?Recorded ?Confirmed atorvastatin 40 mg tablet 40 mg PO DAILY 02/24/23 10/16/24 citalopram 20 mg tablet 20 mg PO DAILY 02/24/23 10/16/24 empagliflozin 10 mg tablet 12.5 mg PO DAILY 02/24/23 10/16/24 gabapentin 300 mg capsule 400 mg PO BEDTIME 02/24/23 10/16/24 gabapentin 300 mg capsule 400 mg PO DAILY 02/24/23 10/16/24 lisinopril 40 mg tablet 20 mg PO DAILY 02/24/23 10/16/24 pantoprazole 40 mg tablet,delayed 40 mg PO BID 02/24/23 10/16/24 release semaglutide 0.25 mg or 0.5 mg (2 0.5 mg subcut QWEEK 02/24/23 10/16/24 mg/3 mL) subcutaneous pen injector (Ozempic) tamsulosin 0.4 mg capsule 0.4 mg PO DAILY 02/24/23 10/16/24 Bacillus coagulans-inulin 1 1 cap PO Q12H 10/10/23 10/16/24 billion cell-250 mg capsule (Probiotic Formula (inulin)) apixaban 5 mg tablet 5 mg PO Q12H 10/10/23 10/16/24 ranolazine 500 mg tablet,extended 500 mg PO Q12H 10/10/23 10/16/24 release,12 hr spironolactone 25 mg tablet 12.5 mg PO DAILY 10/10/23 10/16/24 aspirin 81 mg chewable tablet 81 mg PO DAILY 10/16/24 10/16/24 (Yamil Chewable Low Dose Aspirin) finasteride 5 mg tablet 5 mg PO DAILY 10/16/24 10/16/24 insulin glargine 100 unit/mL 20 unit subcut QAM 10/16/24 10/16/24 subcutaneous solution (Lantus U-100 Insulin) lidocaine 5 % topical patch 1 patch topical Q24H 10/16/24 10/16/24 metoprolol succinate 50 mg 25 mg PO BID 10/16/24 10/16/24 tablet,extended release 24 hr nitroglycerin 0.4 mg sublingual 0.4 mg sublingual Q5M PRN chest 10/16/24 10/16/24 tablet pain Allergies Allergy/AdvReac Type Severity Reaction Status Date / Time isosorbide AdvReac Severe Hypotension Verified 10/16/24 16:38 Review of Systems ROS Status of ROS 10 or more systems reviewed and unremarkable except as noted in history and below [facility] Medical History (Updated 10/16/24 @ 17:31 by Angela Durán MD) Afib ?I48.91 - Unspecified atrial fibrillation (ICD-10) BPH (benign prostatic hyperplasia) ?N40.0 - Benign prostatic hyperplasia without lower urinary tract symptoms (ICD-10) Heart burn ?R12 - Heartburn (ICD-10) Diabetes ?E11.9 - Type 2 diabetes mellitus without complications (ICD-10) High cholesterol ?E78.00 - Pure hypercholesterolemia, unspecified (ICD-10) CVA (cerebral vascular accident) ?I63.9 - Cerebral infarction, unspecified (ICD-10) Social History Little interest or pleasure in doing things: not at all Feeling down, depressed, or hopeless: not at all Exam Narrative Exam Narrative: Nurses notes and vital signs reviewed and patient is not hypoxic. General: Well-appearing and in no apparent distress. Skin: Warm, dry, no pallor noted. No rash. Head: Normocephalic, atraumatic. Neck: Supple, non-tender. Eye: Pupils are equal, round and EOMI. No scleral icterus. Ears, Nose, Mouth, and Throat: TM are clear, no nasal mucosal hypertrophy. Oral mucosa is moist, no posterior oropharynx erythema, uvula is mid-line Cardiovascular: Regular Rate and Rhythm without murmur, gallop or rub. Respiratory: No accessory muscle use or respiratory distress. Lungs are clear to auscultation, no wheezing, rales or rhonchi Chest Wall: no tenderness Back: No midline thoracic or lumbar vertebral tenderness. No CVA tenderness Musculoskeletal: normal ROM, no calf or popliteal tenderness, no lower extremity edema/swelling GI: Abdomen is soft, non-distended. Normal bowel sounds. No masses appreciated. No tenderness to palpation. No rebound, guarding, or rigidity noted. Neurological: A&O x4. No cranial nerve dysfunction observed. No truncal ataxia. Moves all extremities. Sensation intact. Psychiatric: Cooperative and interactive. Normal mood and affect. Constitutional Vital Signs, click to edit/add: Last Vital Signs Temp 98.3 F 10/16/24 16:34 Pulse 54 L 10/17/24 02:45 Resp 18 10/17/24 02:40 BP 87/62 L 10/17/24 02:45 Pulse Ox 97 10/17/24 02:50 O2 Del Method Room Air 10/16/24 21:20 Course Vital Signs Vital signs: Vital Signs Temperature 98.3 F 10/16/24 16:34 Pulse Rate 64 10/16/24 16:34 Respiratory Rate 18 10/16/24 16:34 Blood Pressure 81/51 L 10/16/24 16:34 Pulse Oximetry 97 10/16/24 16:34 Oxygen Delivery Method Room Air 10/16/24 16:34 Temperature 98.3 F 10/16/24 16:34 Pulse Rate 54 L 10/17/24 02:45 Respiratory Rate 18 10/17/24 02:40 Blood Pressure 87/62 L 10/17/24 02:45 Pulse Oximetry 97 10/17/24 02:50 Oxygen Delivery Method Room Air 10/16/24 21:20 MDM - Weakness MDM Narrative Medical decision making narrative: The patient EKG upon arrival showing some hyperkalemic changes with peaked T waves With the patient hypotension there is a concern that he have acute kidney injury The patient potassium 7.1 with a elevated creatinine and BUN and also low bicarb which are mostly secondary to acidosis The patient was placed on the bus monitor in addition to pads placed in case of any cardiac emergency The patient is at risk for V. tach and that why he was placed in the critical care room The patient was started on the Kayexalate in addition to dextrose D50 in addition to 10 units of insulin regular IV and gluconate was given as well Lab Data Labs: Lab Results 10/16/24 10/16/24 10/16/24 Range/Units 16:50 18:48 23:00 WBC 8.3 (4.0-11.0) 10^3/uL RBC 3.86 L (4.70-6.10) 10^6/uL Hgb 12.0 L (14.0-18.0) g/dL Hct 34.7 L (42.0-54.0) % MCV 89.9 (80.0-94.0) fL MCH 31.1 (25.9-34.0) pg MCHC 34.6 (29.9-35.2) g/dL RDW 13.4 (11.0-15.0) % Plt Count 125 L (150-450) 10^3/uL MPV 11.3 (9.5-13.5) fL Neut % (Auto) 73.5 (43.0-75.0) % Lymph % (Auto) 15.4 L (20.5-60.0) % [place] % (Auto) 6.7 (1.7-12.0) % Eos % (Auto) 2.8 (0.9-7.0) % Baso % (Auto) 0.5 (0.2-2.0) % Neut # (Auto) 6.1 (1.4-6.5) 10^3/uL Lymph # (Auto) 1.3 (1.2-3.8) 10^3/uL [place] # (Auto) 0.6 (0.3-0.8) 10^3/uL Eos # (Auto) 0.2 (0.0-0.7) 10^3/uL Baso # (Auto) 0.0 (0.0-0.1) 10^3/uL Abs Immat Gran (auto) 0.09 H (0.00-0.03) 10^3/uL Imm/Tot Granulo (auto) 1.1 H (0.0-0.5) % Sodium 135 L 136 138 (136-145) mmol/L Potassium 7.1 H* 7.0 H* 6.0 H (3.5-5.1) mmol/L Chloride 106 108 H 108 H (98-107) mmol/L Carbon Dioxide 14.3 L 15.7 L 17.5 L (21.0-32.0) mmol/L Anion Gap 21.8 19.3 18.5 BUN 100.0 H* 92.0 H* 90.0 H* (7.0-18.0) mg/dL Creatinine 4.53 H 4.12 H 4.06 H (0.70-1.30) mg/dL Est GFR ( Amer) 16 L 17 L 18 L (>=60 mL/min/1.73m^2) Est GFR (Non-Af Amer) 13 L 14 L 15 L (>=60 mL/min/1.73m^2) BUN/Creatinine Ratio 22.1 22.3 22.2 Glucose 122 H 101 102 (74-106) mg/dL Calcium 7.9 L 8.0 L 8.7 (8.5-10.1) mg/dL Total Bilirubin 0.6 (0.2-1.0) mg/dL AST 18 (15-37) U/L ALT 32 (16-63) U/L Alkaline Phosphatase 48 (46-116) U/L Troponin I High Sens 16.3 (4.0-76.1) pg/mL Total Protein 6.4 (6.4-8.2) g/dL Albumin 3.4 (3.4-5.0) g/dL Globulin 3.0 g/dL Albumin/Globulin Ratio 1.1 Discharge Plan Discharge Chief Complaint: Weakness Clinical Impression: Acute hypotension, NICHOLAS (acute kidney injury), Acute hyperkalemia Patient Disposition: [facility] Time of Disposition Decision: 17:31 Discharge Location: [facility] Condition: Good Mode of Transportation: EMS Documented by User: Robert Taylor MD 10/17/24 02:58 HPI - Weakness General Chief complaint: Weakness Stated complaint: Hypotension Time Seen by Provider: 10/16/24 16:39 Related Data Home Medications ?Medication ?Instructions ?Recorded ?Confirmed atorvastatin 40 mg tablet 40 mg PO DAILY 02/24/23 10/16/24 citalopram 20 mg tablet 20 mg PO DAILY 02/24/23 10/16/24 empagliflozin 10 mg tablet 12.5 mg PO DAILY 02/24/23 10/16/24 gabapentin 300 mg capsule 400 mg PO BEDTIME 02/24/23 10/16/24 gabapentin 300 mg capsule 400 mg PO DAILY 02/24/23 10/16/24 lisinopril 40 mg tablet 20 mg PO DAILY 02/24/23 10/16/24 pantoprazole 40 mg tablet,delayed 40 mg PO BID 02/24/23 10/16/24 release semaglutide 0.25 mg or 0.5 mg (2 0.5 mg subcut QWEEK 02/24/23 10/16/24 mg/3 mL) subcutaneous pen injector (Ozempic) tamsulosin 0.4 mg capsule 0.4 mg PO DAILY 02/24/23 10/16/24 Bacillus coagulans-inulin 1 1 cap PO Q12H 10/10/23 10/16/24 billion cell-250 mg capsule (Probiotic Formula (inulin)) apixaban 5 mg tablet 5 mg PO Q12H 10/10/23 10/16/24 ranolazine 500 mg tablet,extended 500 mg PO Q12H 10/10/23 10/16/24 release,12 hr spironolactone 25 mg tablet 12.5 mg PO DAILY 10/10/23 10/16/24 aspirin 81 mg chewable tablet 81 mg PO DAILY 10/16/24 10/16/24 (Yamil Chewable Low Dose Aspirin) finasteride 5 mg tablet 5 mg PO DAILY 10/16/24 10/16/24 insulin glargine 100 unit/mL 20 unit subcut QAM 10/16/24 10/16/24 subcutaneous solution (Lantus U-100 Insulin) lidocaine 5 % topical patch 1 patch topical Q24H 10/16/24 10/16/24 metoprolol succinate 50 mg 25 mg PO BID 10/16/24 10/16/24 tablet,extended release 24 hr nitroglycerin 0.4 mg sublingual 0.4 mg sublingual Q5M PRN chest 10/16/24 10/16/24 tablet pain Allergies Allergy/AdvReac Type Severity Reaction Status Date / Time isosorbide AdvReac Severe Hypotension Verified 10/16/24 16:38 PFSH PFSH Medical History (Updated 10/16/24 @ 17:31 by Angela Durán MD) Afib ?I48.91 - Unspecified atrial fibrillation (ICD-10) BPH (benign prostatic hyperplasia) ?N40.0 - Benign prostatic hyperplasia without lower urinary tract symptoms (ICD-10) Heart burn ?R12 - Heartburn (ICD-10) Diabetes ?E11.9 - Type 2 diabetes mellitus without complications (ICD-10) High cholesterol ?E78.00 - Pure hypercholesterolemia, unspecified (ICD-10) CVA (cerebral vascular accident) ?I63.9 - Cerebral infarction, unspecified (ICD-10) Social History Little interest or pleasure in doing things: not at all Feeling down, depressed, or hopeless: not at all Exam Constitutional Vital Signs, click to edit/add: Last Vital Signs Temp 98.3 F 10/16/24 16:34 Pulse 54 L 10/17/24 02:45 Resp 18 10/17/24 02:40 BP 87/62 L 10/17/24 02:45 Pulse Ox 97 10/17/24 02:50 O2 Del Method Room Air 10/16/24 21:20 Course Vital Signs Vital signs: Vital Signs Temperature 98.3 F 10/16/24 16:34 Pulse Rate 64 10/16/24 16:34 Respiratory Rate 18 10/16/24 16:34 Blood Pressure 81/51 L 10/16/24 16:34 Pulse Oximetry 97 10/16/24 16:34 Oxygen Delivery Method Room Air 10/16/24 16:34 Temperature 98.3 F 10/16/24 16:34 Pulse Rate 54 L 10/17/24 02:45 Respiratory Rate 18 10/17/24 02:40 Blood Pressure 87/62 L 10/17/24 02:45 Pulse Oximetry 97 10/17/24 02:50 Oxygen Delivery Method Room Air 10/16/24 21:20 MDM - Weakness MDM Narrative Medical decision making narrative: The patient EKG upon arrival showing some hyperkalemic changes with peaked T waves With the patient hypotension there is a concern that he have acute kidney injury The patient potassium 7.1 with a elevated creatinine and BUN and also low bicarb which are mostly secondary to acidosis The patient was placed on the bus monitor in addition to pads placed in case of any cardiac emergency The patient is at risk for V. tach and that why he was placed in the critical care room The patient was started on the Kayexalate in addition to dextrose D50 in addition to 10 units of insulin regular IV and gluconate was given as well. Signout note: Patient was signed out to me with admission planned. I discussed the case with the on-call hospitalist here at [place]. Given the lack of nephrology decision was made that the patient is best served by transfer to facility with multispecialty care given his comorbidities. Case was discussed with [place]. Padilla [place] [facility] He would like more agressive attempt at treatment and rediscussed with our hospitalist before acceptance. I discussed the case again with Shanna, she consulted with the supervising physician. Will give albuterol treatment, Lokelma, Lasix. Recheck potassium and kidney function in 2 hours. At 11:00 the patient had urine output, multiple bowel movements. BMP was repeated. Potassium is slightly improved as well as kidney function. Case was again discussed with hospitalist at [place]. Patient will need transfer. I discussed the case with Dr. Gaston at [facility]. He accepts the patient to his service. 0257: Patient resting comfortably in room. No events while awaiting transport. While he is sleeping his pressure does get soft and adequate however in the 70s. Additional fluids at 500cc/hr were hung. Diagnosis: Acute on chronic renal failure Acute hyperkalemia Dehydration Hypotension Robert Taylor DO, FAAEM Medical Records Attestation: I reviewed the patient's medical records. Lab Data Attestation: I reviewed the patient's lab results. Labs: Lab Results 10/16/24 10/16/24 10/16/24 Range/Units 16:50 18:48 23:00 WBC 8.3 (4.0-11.0) 10^3/uL RBC 3.86 L (4.70-6.10) 10^6/uL Hgb 12.0 L (14.0-18.0) g/dL Hct 34.7 L (42.0-54.0) % MCV 89.9 (80.0-94.0) fL MCH 31.1 (25.9-34.0) pg MCHC 34.6 (29.9-35.2) g/dL RDW 13.4 (11.0-15.0) % Plt Count 125 L (150-450) 10^3/uL MPV 11.3 (9.5-13.5) fL Neut % (Auto) 73.5 (43.0-75.0) % Lymph % (Auto) 15.4 L (20.5-60.0) % [place] % (Auto) 6.7 (1.7-12.0) % Eos % (Auto) 2.8 (0.9-7.0) % Baso % (Auto) 0.5 (0.2-2.0) % Neut # (Auto) 6.1 (1.4-6.5) 10^3/uL Lymph # (Auto) 1.3 (1.2-3.8) 10^3/uL [place] # (Auto) 0.6 (0.3-0.8) 10^3/uL Eos # (Auto) 0.2 (0.0-0.7) 10^3/uL Baso # (Auto) 0.0 (0.0-0.1) 10^3/uL Abs Immat Gran (auto) 0.09 H (0.00-0.03) 10^3/uL Imm/Tot Granulo (auto) 1.1 H (0.0-0.5) % Sodium 135 L 136 138 (136-145) mmol/L Potassium 7.1 H* 7.0 H* 6.0 H (3.5-5.1) mmol/L Chloride 106 108 H 108 H (98-107) mmol/L Carbon Dioxide 14.3 L 15.7 L 17.5 L (21.0-32.0) mmol/L Anion Gap 21.8 19.3 18.5 BUN 100.0 H* 92.0 H* 90.0 H* (7.0-18.0) mg/dL Creatinine 4.53 H 4.12 H 4.06 H (0.70-1.30) mg/dL Est GFR ( Amer) 16 L 17 L 18 L (>=60 mL/min/1.73m^2) Est GFR (Non-Af Amer) 13 L 14 L 15 L (>=60 mL/min/1.73m^2) BUN/Creatinine Ratio 22.1 22.3 22.2 Glucose 122 H 101 102 (74-106) mg/dL Calcium 7.9 L 8.0 L 8.7 (8.5-10.1) mg/dL Total Bilirubin 0.6 (0.2-1.0) mg/dL AST 18 (15-37) U/L ALT 32 (16-63) U/L Alkaline Phosphatase 48 (46-116) U/L Troponin I High Sens 16.3 (4.0-76.1) pg/mL Total Protein 6.4 (6.4-8.2) g/dL Albumin 3.4 (3.4-5.0) g/dL Globulin 3.0 g/dL Albumin/Globulin Ratio 1.1 ECG Data Attestation: I personally reviewed and interpreted this ECG as follows: (Normal sinus rhythm at a rate of 58. No STEMI. Normal QTc.) Critical Care Time Critical Care Time Critical Care Time: Yes Total Critical Care Time: 75 Attestation: Critical Care Procedure Note Authorized and Performed by: Robert Taylor DO Total critical care time: 75 min Due to a high probability of clinically significant, life threatening deterioration, the patient required my highest level of preparedness to intervene emergently and I personally spent this critical care time directly and personally managing the patient. This critical care time included obtaining a history; examining the patient; pulse oximetry; ordering and review of studies; arranging urgent treatment with development of a management plan; evaluation of patient's response to treatment; frequent reassessment; and, discussions with other providers. This critical care time was performed to assess and manage the high probability of imminent, life-threatening deterioration that could result in multi-organ failure. It was exclusive of separately billable procedures and treating other patients and teaching time. Please see MDM section and the rest of the note for further information on patient assessment and treatment. Discharge Plan Discharge Chief Complaint: Weakness Clinical Impression: Acute hypotension, NICHOLAS (acute kidney injury), Acute hyperkalemia Patient Disposition: [facility] Time of Disposition Decision: 17:31 Discharge Location: [facility] Condition: Good Mode of Transportation: EMS
--- NOTE | 2024-10-16 17:00 | PC.NURSE ---
pt here for hypotension pt monitors bp at home before taking cardiac medications
[2024-10-16 17:02] LABS: Basophils Percent Auto 0.5 % (0.2-2.0); Eosinophils Absolute Auto 0.2 10^3/uL (0.0-0.7); Eosinophils Percent Auto 2.8 % (0.9-7.0); Hematocrit 34.7 % (42.0-54.0); Immature Granulocytes Abs Auto 0.09 10^3/uL (0.00-0.03); Immature Granulocytes Pct Auto 1.1 % (0.0-0.5); Lymphocytes Absolute Auto 1.3 10^3/uL (1.2-3.8); Lymphocytes Percent Auto 15.4 % (20.5-60.0); Mean Corpuscular HGB Conc 34.6 g/dL (29.9-35.2); Mean Corpuscular Hemoglobin 31.1 pg (25.9-34.0); Mean Corpuscular Volume 89.9 fL (80.0-94.0); Mean Platelet Volume 11.3 fL (9.5-13.5); Monocytes Absolute Auto 0.6 10^3/uL (0.3-0.8); Monocytes Percent Auto 6.7 % (1.7-12.0); Neutrophils Absolute Auto 6.1 10^3/uL (1.4-6.5); Neutrophils Percent Auto 73.5 % (43.0-75.0); Platelet Count 125 10^3/uL (150-450); Red Blood Count 3.86 10^6/uL (4.70-6.10); Red Cell Distribution Width 13.4 % (11.0-15.0); White Blood Count 8.3 10^3/uL (4.0-11.0)
[2024-10-16] MEDS: 0.9 % SODIUM CHLORIDE 1,000 ML 1000 ML IV (17:04)
[2024-10-16 17:12] LABS: Alanine Aminotransferase 32 U/L (16-63); Albumin Globulin Ratio 1.1; Albumin Level 3.4 g/dL (3.4-5.0); Alkaline Phosphatase 48 U/L (46-116); Anion Gap 21.8; Aspartate Amino Transferase 18 U/L (15-37); BUN Creatinine Ratio 22.1; Bilirubin Total 0.6 mg/dL (0.2-1.0); Calcium 7.9 mg/dL (8.5-10.1); Carbon Dioxide 14.3 mmol/L (21.0-32.0); Chloride 106 mmol/L (98-107); Estimated GFR (African America 16 (>=60 mL/min/1.73m^2); Estimated GFR (Non-African Ame 13 (>=60 mL/min/1.73m^2); Glucose 122 mg/dL (74-106); Sodium 135 mmol/L (136-145); Total Protein 6.4 g/dL (6.4-8.2)
[2024-10-16 17:14] LABS: Troponin I High Sensitivity 16.3 pg/mL (4.0-76.1)
[2024-10-16 17:17] LABS: Potassium 7.1 mmol/L (3.5-5.1)
[2024-10-16] MEDS: INSULIN REGULAR, HUMAN (100 UNIT/ML) 10 ML MDV 10 UNIT IV (17:37)
[2024-10-16] MEDS: SODIUM POLYSTYRENE SULFON 15 GM/60 ML ORAL.SUSP KAYEXALATE 30 GM PO (17:39)
[2024-10-16] MEDS: DEXTROSE 50 %-WATER 25 GM/50 ML SYRINGE IV (17:43)
[2024-10-16] MEDS: CALCIUM GLUC IN NACL, ISO-OSM 1 GM/50 ML PLAST..BAG IV (17:43)
--- OUTSIDE RECORDS SUMMARY | 2024-10-16 18:22 | XMS_ITS | CCD ---
Author Organization [facility] Care Team Providers Care Business Services Analyst Name Role Phone Aashish Gaffney Attending Unavailable Mason Membreno Primary Care UnavailAashish Escudero Attending Unavailable Mason Membreno Primary Care UnavailMason Yao Primary Care Provider MASON MEMBRENO Primary Care Unavailable MASON MEMBRENO Primary Care Physician MOHINI, MOHAMAD Admitting Unavailable DES RAJAND Attending Unavailable MASON MEMBRENO Primary Care Unavailable MASON MEMBRENO Referring Unavailable CALVINHOTHMOUNA, MOHAMAD Admitting Unavailable MOHIIN MOHTERRELLD Attending Unavailable MASON MEMBRENO Primary Care Unavailable MASON MEMBRENO Referring Unavailable Kimberly Talbot Unavailable Esteban Steward Unavailable GERRY WOODALL Attending Unavailable YEARKIM GERRY Admitting Unavailable HASEEB, [...] SHARAN, DR MIKY Maguire Consulting Unavailabl e MEMBRENO, DR MARX Primary Care Unavailable GREENHURST, DR MAYITO Ho Consulting Unavailable NADERER, DR [...] Attending Unavailable MISC, DR SHIELDS Admitting Unavailable Membreon II, Dr. Mason Raman Primary Care Suzan APRIL Erickson Attending Unavailab Francisca Salas Attending Unavailable MOSHE Membreno Primary Care Provider MD Esteban Steward Attending Provider Kaci Torrez Unavailable MD Rachel Jin Admit Provider MD Nikolas Villafana Other Provider MD Dwain Peñaloza Attending Provider GALE CARNEY Referring Unavailable MASON MEMBRENO Primary [...] Unavailable Mason Membreno MD Primary Care Provider KAELA OHARA Attending Unavailable TOMAS RAJAN Attending Unavailable TOMAS RAJAN Attending Unavailable BG SALDAÑA Attending Unavailable BG SALDAÑA Attending Unavailable MASON MEMBRENO Attending Unavailable KYRIE [...] disorder, systemic arterial (disorder) [facility] (2 sources) Isosorbide; Translations: [ISOSORBIDE MONONITRATE] Drug Allergy 2 [facility] Rep[facility] (3 sources) Aspartame; Translations: [ASPARTAME] Drug Allergy 4 Diarrhea [facility] Repository (1 source) Isosorbide Drug Allergy 4 [facility] Repository (20 sources) Aspartame Drug Allergy 4 Diarrhea [facility] Medications Current Medications Medication Drug Class(es) Dates Sig (Normalized) Sig (Original) 0.25 MG, 0.5 MG Dose 3 ML semaglutide 0.68 MG/ML Pen Injector [Ozempic] (4 sources) Ozempic (0.25 or 0.5 MG/DOSE) 2 MG/3ML as directed Subcutaneous Active acetaminophen 325 mg / oxyCODONE hydrochloride 5 mg oral tablet (9 sources) Opioid Agonist Start: 04-17-2024 take 1 [...] Amlodipine & t Manage Prod Active amylase 901911 unt / lipase 42734 unt / protease 640699 unt delayed release oral capsule (1 source) Start: 3 take 2 capsules by mouth three times daily at mealtime Zenpep [id number] UNIT 2 capsules Orally three times a [...] 27, 2024 12:00am take 1 capsule by tn uth every twenty-four hours Vitamin D3 50 [...] morning. 90 tablet 3 11/24/2022 Active Citalopram [place] bromide Active take 1 tablet by mouth [...] 1.5 mg/ml oral solution (13 sources) Uncompetitive J-yubscb-B-asparta te Receptor Antagonist, Sigma-1 Agonist Start: 02-02-2024 End: 02-12-2024 take 10 mL by mouth four times daily as needed for cough and congestion Dextromethorpha n-Pyrilamine (Kamuela DM) 7.5-7.5 MG/5ML liquid Indications: Acute cough Take 10 mL by mouth 4 (four) times a day as needed (cough and congestion) for up to 10 days 473 mL 02/02/2024 02/12/2024 Active Start: 06-16-2023 take 10 mL by mouth every eight hours Kamuela DM 7.5-7.5 MG/5ML 10 mL Orally every 8 hours for 5 days Jun, Active Start: 02-24-2023 End: 07-12-2023 take 1 mL by mouth every eight hours Pyrilamine-Dextromethorphan (Kamuela Dm) 7.5-7.5 mg/5 mL liquid Discontinued 10 ML PO Every 8 hours February 24, 2023 12:00am July 12, 2023 2:49pm Start: 02-22-2023 take 10 mL by mouth every eight hours Kamuela DM 7.5-7.5 MG/5ML 10 mL Orally every [...] every week ergocalciferol (Vitamin D-2) 1.25 MG (56555 UT) capsule Take 1 capsule by mouth [...] 01-27-2024 take 300 mg by mouth twice ajrod ly Gabapentin Active 300 MG PO Twice [...] Active prednisoLONE acetate 10 mg/ml ophthalmic suspension (9 sources) Corticosteroid Start: 06-08-2024 prednisoLONE acetate (Pred-Forte) [...] for 30 days Apr, Not-Taking bacillus coagulans [id number] unt / inulin 250 mg oral capsule [...] oral tablet (2 sources) alpha-Adrenergic Agonist, Uncompetitive Z-peuqas-W-aspartate Receptor Antagonist, Sigma-1 Agonist Start: 04-22-2019 take [...] 12, 2017 1:06pm February 18, 2023 9:41am Xtvqty-Wbcfuagt-J mylase (Zenpep) 40,000-126,000- 168,000 unit capsule,delayed release(DR/EC) (2 sources) Start: 02-24-2023 End: 07-12-2023 take 58371-936881 capsules by mouth three times daily at mealtime Iuhnrw-Fpqfriyk-Spx lase (Zenpep) 40,000-126,000- 168,000 unit capsule,delayed release(DR/EC) Discontinued 2 CAP PO 3 times per day with meals February 24, 2023 12:00am July 12, 2023 2:48pm Start: 02-24-2023 take 81785-827255 ca psules by mouth three times daily at mealtime Mcdnzz-Fqcuptra-Pskgwoo (Zenpep) 40,000-126,000- 168,000 unit capsule,delayed release(DR/EC) Active [...] myocardial infarction; Translations: [Atherosclerotic heart disease of [place] coronary artery without angina pectoris] Onset: 09-11-2018 [...] 10-06-2022 10-06-2022 Chronic Other aftercare (1 source) snf (current) use of insulin; Translations: [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 OF INSULIN] Onset: 09-14-2022 Episodic Other aftercare (1 source) 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; Translations: [OTH PRISON CURRENT DRUG THERAPY] Onset: 09-14-2022 Episodic Other and ill-defined heart disease (2 sources) Heart disease 06-13-2019 Chronic Other and ill-defined heart disease (2 sources) Cardiomegaly; Translations: [Cardiomegaly] Onset: 08-15-2024 Chronic Other and unspecified benign neoplasm (6 [...] (peripheral); Translations: [Venous insufficiency (chronic) (peripheral)] Onset: 08-15-2024 Episodic Other disorders of stomach and duodenum [...] 10-06-2022 10-06-2022 Episodic Other aftercare (1 source) 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; Translations: [PRISON CURRENT USE OF ASPIRIN] Onset: 11-25-2021 Episodic Other aftercare (1 source) snf (current) use of anticoagulants; Translations: [PRISON CURRNT USE ANTICOAGULANTS] Onset: 11-25-2021 Episodic Other aftercare (1 source) snf (current) use of antithrombotics/antip latelets; Translations: [DRYWALL TAPER HELPER ANTITHROMBOT/ANTIPLAT LETS] Onset: 11-25-2021 Episodic Other aftercare (20 sources) Long-term current use of insulin; Translations: [exterminator termite (current) use of insulin] Onset: 06-06-2015 02-09-2023 [...] Test Name Value Interpretation Reference Range Facility Laboratory - Hematology and Cell countson 10-11-2024 HbA1c (Bld) [Mass fraction] 5.7 % [facility] No Panel Informationon 10-11 [facility] Healthcare Office Visiton 08-15-2024 Follow-up visit [id number] Maury Issa 1950 [facility] Provider Department [place] 08/15/2024 271-KAELA OHARA CARD [facility] Family History Problem Relation Age of Onset Aneurysm Mother No Known Problems Father Heart attack Brother Family Status - Relation Status Age at Mother Father Sister Brother Alive Level of Service:88225 [place] OFFICE/OUTPATIENT ESTABLISHED MOD MDM 30 MIN Normal [facility] 36on 08-02-2024 36 Pt informed [facility] 36on 08-01-2024 36 Stress test was negative. ECHO showed normal pumping function. The wall thickness has decreased in size compared from his last ECHO which is good, likely related to better BP control. His aorta is mildly dilated, we will continue to monitor and management includes continued good BP control. Follow up as scheduled to assess how he's feeling, see if any additional testing is needed/medication adjustment and establish care with a new attending. Thank you! [facility] 36 Regarding ECHO, Carotid, and stress test Bg Saldaña CNP [facility] Cardiology Clinical Support Pool Please let him know his carotid US showed no significant narrowing. Thank you Velma, your review of the Echo was lost and we were unable to recover it. Please review it again and send it back to me, also can you address his recent stress test. Sorry for the inconvenience [facility] NM JACKIE PERF SPECT REST STRon 07-30-2024 [place] [address] Nuclear Medicine Report Signed Patient: MAURY ISSA MR#: [id number] : 1950 Acct:[id number] Age/Sex: 73 / M ADM Date: 07/26/24 Loc: [place] Attending Dr: BG SALDAÑA APRN Ordering Physician: BG SALDAÑA APRN Date of Service: 07/26/24 Procedure(s): NM jackie perf SPECT rest str Accession Number(s): [id number] cc: MASON MEMBRENO ; BG SALDAÑA APRN Patient Name: MAURY ISSA MR#: [id number] : 1950 Exam Date: 07/26/2024 Ordering Doctor: BG SALDAÑA PACU RN RADIOLOGY REPORT PROCEDURE: NM JACKIE PERF SPECT [...] the study was pending per attending physician [facility] . For more details, please see separate [...] Ohara M.D. 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: [facility] Radiology, Radiologist, - 07/30/2024 [place] [address] Nuclear Medicine Report Signed Patient: MAURY ISSA MR#: [id number] : 1950 Acct:[id number] Age/Sex: 73 / M ADM Date: 07/26/24 Loc: NM Attending Dr: BG SALDAÑA APRN Ordering Physician: BG SALDAÑA APRN Date of Service: 07/26/24 Procedure(s): NM jackie perf SPECT rest str Accession Number(s): [id number] cc: MASON MEMBRENO,BG YOUTH PROGRAM DIRECTOR Patient Name: MAURY ISSA MR#: [id number] : 1950 Exam Date: 07/26/2024 Ordering Doctor: BG SALDAÑA CNP RADIOLOGY REPORT PROCEDURE: NM JACKIE PERF [...] the study was pending per attending physician [facility] . For more details, please see separate [...] Ohara M.D. 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 Radiology Study observation (narrative) [facility] NM JACKIE PERF SPECT REST STROr dered By: Radiologist Radiology on 07-30-[address] [facility] Work Phone: 37on 07-24-2024 37 *Recommend compression stockings with 20-30 mmHg of compression *[facility] should be calling you to schedule the heart ultrasound, stress test, and carotid ultrasound Normal [facility] Office Visiton 07-24-2024 Follow-up visit [id number] Maury Issa 1950 M Date Provider Department Center 07/24/2024 BG RYAN Jimmy Amador Family History Problem Relation Age of Onset Heart attack Brother Family Status - Relation Status Age at Brother Level of Service:76759 [place] OFFICE/OUTPATIENT ESTABLISHED MOD MDM 30 MIN Reason for Visit and Comments: Chest Pain [153862] Coronary Artery Disease [187] Dizziness [905142] Normal [facility] LIPID PANEL, STANDARDon Cholesterol [Mass/Vol] 146 mg/dL Normal <200 [facility] Comment on above: Order Comment: FASTI NG:YES FASTING: YES Performed By: #### 7 600, 5363 #### [facility] [address], [address] [place] [address] Horticultural Farmworker: Kennedy Garcia MD Cholesterol in HDL [Mass/Vol] 30 mg/dL Low > OR = 40 [facility] Comment on above: Order Comment: FASTI NG:YES FASTING: YES Performed By: #### 7 600, 5363 #### [facility] [address], [address] [place] [address] Horticultural Farmworker: Kennedy Garcia MD Cholesterol in LDL [Mass/Vol] [...] equation in the estimation of LDL-C. Alessandro SS et al. AMANDA. 2013;310(19): 5978-4788 (http://education.Friendshippr.[employer]ry/faq/VOZ236) Performed By: #### 7 600, 5363 #### [facility] [address], [address] [place] [address] Horticultural Farmworker: Kennedy Garcia MD Cholesterol.total/Destiny sterol in HDL [Mass ratio] 4.9 {ratio} Normal <5.0 [facility] Comment on above: Order Comment: FASTI NG:YES FASTING: YES Performed By: #### 7 600, 5363 #### [facility] [address], [address] [place] [address] Horticultural Farmworker: Kennedy Garcia MD NON HDL CHOLESTEROL 116 mg/dL (calc) Normal <130 [facility] Comment on above: Order Comment: FASTI NG:YES FASTING: YES Result Comment: For patients with diabetes plus 1 major ASCVD risk factor, treating to a non-HDL-C goal of <100 mg/dL (LDL-C of <70 mg/dL) is considered a therapeutic option. Performed By: #### 7 600, 5363 #### [facility] [address], [address] [place] [address] Horticultural Farmworker: Kennedy Garcia MD Triglyceride [Mass/Vol] 226 mg/dL High <150 [facility] Comment on above: Order Comment: FASTI NG:YES FASTING: YES Result Comment: If a non-fasting specimen was collected, consider repeat triglyceride testing on a fasting specimen if clinically indicated. Dale et al. J. of Clin. Lipidol. 2015;9:129-169. Performed By: #### 7 600, 5363 #### [facility] [address], [address] [place] [address] Horticultural Farmworker: Kennedy Garcia MD PSA, TOTALon 07-12-2024 PSA, [...] #### 7 600, 5363 #### [facility] [address], [address] [place] [address] Horticultural Farmworker: Kennedy Garcia MD Office Visiton 07-11-2024 Follow-up visit [id number] Maury Issa 1950 M Date Provider Department Center 07/11/2024 BG RYAN CARD [facility] Family History Problem Relation Age of Onset Heart attack Brother Family Status - Relation Status Age at Brother Level of Service:91251 [place] OFFICE/OUTPATIENT ESTABLISHED MOD MDM 30 MIN Reason for Visit and Comments: Coronary Artery Disease [187] Hypertension [413293] Hyperlipidemia [182] Atrial Fibrillation [80] Normal [facility] HbA1c (Bld) [Mass fraction]o n 06-13-[address] [facility] Laboratory - Chemistry and C hemistry - challengeon 06-13-2024 Albumin [Mass/Vol] 4.3 g/dL [facility] Creatinine (U) [Mass/Vol] 2.5 mg/dL [facility] GFR/1.73 sq M.predicted among non-blacks MDRD (S/P/Bld) [Vol rate/Area] 27 mL/min/{1.73_m2} [facility] Potassium [Moles/Vol] 4.9 mmol/L [facility] Sodium [Moles/Vol] 138 mmol/L [facility] Urea nitrogen [Mass/Vol] 43 mg/dL [facility] Laboratory - Hematology and Cell countson 06-13-2024 HbA1c (Bld) [Mass fraction] 6 % [facility] Microalbumin/Creatinine rati o panel (U)on 06-13-2024 Albumin DL <= 20 mg/L (U) [Mass/Vol] 48 mg/dL [facility] Albumin/Creatinine DL <= 1.0 mg/L (U) [Ratio] [address] [facility] Creatinine (U) [Mass/Vol] 91 mg/dL [facility] No Panel Informationon 06-[address] [facility] Laboratory - Hematology and Cell countson 02-27-2024 HbA1c (Bld) [Mass fraction] 5.6 % [facility] No Panel Informationon 02-[address] [facility] No Panel InformationOrdered By: Lotus Casillas on 01-27-2024 Quick Strep (POC) [facility] Follow-Upon 01-13-2024 Follow-Up [id number] Maury Issa 1950 Date Provider Department Center 01/13/2024 3848-TOMAS RAJAN CARD [facility] Family History Problem Relation Age of Onset Heart attack Brother Family Status - Relation Status Age at Brother Level of Service:92116 [place] OFFICE/OUTPATIENT ESTABLISHED LOW MDM 20 MIN Normal [facility] MRI CARD MORPH FUNC WO/W IVC ONon 01-11-2024 MRI CARD MORPH FUNC WO/W IVCON * * *Final Report* * * DATE OF EXAM: Jan 11 2024 5:40PM [facility] 0703 - MRI CARD MORPH FUNC WO/W IVCON / PROCEDURE REASON: I42.2 * * * * Physician Interpretation * * * * Cardiac MRI Report: [facility] Date of service: 01/11/2024 3:38:29 PM Linked orders:[id number] CARD MORPH FUNC WO/W IVCON;[id number] CARDIAC VELOCITY FLOW MAP. Ordering physician: TOMAS [...] (more content not included)... Normal [facility] MRI CARDIAC VELOCITY FLOW MA Thony 01-11-2024 MRI CARDIAC VELOCITY FLOW MAP * * *Final Report* * * DATE OF EXAM: Jan 11 2024 5:40PM [facility] 0704 - MRI CARDIAC VELOCITY FLOW MAP / PROCEDURE REASON: I42.2 * * * * Physician Interpretation * * * * Cardiac MRI Report: [facility] Date of service: 01/11/2024 3:38:29 PM Linked orders:[id number] CARD MORPH FUNC WO/W IVCON;[id number] CARDIAC VELOCITY FLOW MAP. Ordering physician: TOMAS [...] moderate asymmetr (more content not included)... Normal [facility] 01-04-2024 [facility] Telephone [facility] MA[facility]Y ISS[facility] ([id number]) 1950 M Date Time Provider Department 01/04/24 FRANCIA DUMONT During your visit today, we recorded the following information about you: Francia Dumont, radio talk show host 01/04/2024 4:46 PM Signed Aye Boateng, Could [...] Encounter Status:Closed by FRANCIA DUMONT on 01/04/24 [facility] Office Visiton 12-02-2023 Follow-up visit [id number] Maury Issa 1950 [facility] Provider Department [place] 12/02/2023 3848TOMAS GARRETT MAU Amador Family History Problem Relation Age of Onset Heart attack Brother Family Status - Relation Status Age at Brother Level of Service:04901 [place] OFFICE/OUTPATIENT ESTABLISHED MOD MDM 30 MIN [facility] Orders Onlyon 12-02-2023 Orders Only [id number] Maury Issa 1950 M [facility] Provider Department [place] 12/02/2023 895-CHAKA GOODSON MAU [facility] Family History Problem Relation Age of Onset Heart attack Brother Family Status - Relation Status Age at Brother [facility] 10-31-[address] Rajan- patient is ok to stop Plavix and taking low dose aspirin. Patient stopped by the office last week and was made aware. [facility] 09-17-2023 36 He is on Eliquis and Plavix per Dr. Rajan. We can switch plavix to aspirin if okay with Dr. Rajan. [facility] 2024 36 Patient's significant other Isa called with [...] still be taking Plavix? Please advise. Thanks! Normal [facility] Telephoneon 09-15-2023 Telephone [id number] Maury Issa 1950 M Date Provider Department Center 09/15/2023 [facility] MAU Amador Family History Problem Relation Age of Onset Heart attack Brother Family Status - Relation Status Age at Brother Normal [facility] COVID + FLU Quick Testingon 06-16-2023 SARS-CoV-2 (COVID-19) RNA GALLO+probe Ql (Unsp spec) Negative [facility] Other COVID + FLU Quick Testing Negative [facility] Other Basic Metabolic Panelon 02-07 Creatinine Clr Calc Pharmacy 40.83 Normal [facility] Comment on above: Result Comment: PERF ORMED BY: [address] [place] [address] PATHOLOGIST MOTOR GRADER ROUGH GRADE ALEJANDRINA EID M.D. Performed By: #### G LULS #### Point of Care testing , GFR/1.73 sq M.predicted MDRD (S/P/Bld) [Vol rate/Area] 40.533 mL/min/{1.73_m2} Normal [facility] Comment on above: Performed By: #### G LULS #### Point of Care testing , Calcium [Mass/volume] in Ser um or PlasmaOrdered By: Shruti Savage on 02-28-2023 Calcium [Mass/Vol] 8.3 mg/dL Low 8.6-10.3 [facility] Comment on above: Performed By: #### G LULS #### Point of Care testing , Capillary blood glucose stephanie urement by glucometer (mass/volume)Ordered By: Dwain Peñaloza on 02-28-2023 Glucose [Mass/Vol] 98 mg/dL Normal [facility] Comment on above: Random Glucose Refer ence Range is dependent on time and content of last meal. Glucose of more than 200 mg/dL in a nonstressed, ambulatory subject supports the diagnosis of Diabetes Mellitus. Result Comment: [place] om Glucose Reference Range is dependent on time and content of last meal. Glucose of more than 200 mg/dL in a nonstressed, ambulatory subject supports the diagnosis of Diabetes Mellitus. Performed By: #### G LULS #### Point of Care testing , Carbon dioxide, total [Moles /volume] in Serum or PlasmaOrdered By: Shruti Savage on 02-28-2023 CO2 [Moles/Vol] 30.2 mmol/L Normal 21.0-31.0 [facility] Comment on above: Performed By: #### G LULS #### Point of Care testing , Chloride [Moles/volume] in S heath or PlasmaOrdered By: Shruti Covarrubiasr on 02-28-2023 Chloride [Moles/Vol] 110 mmol/L High 98-107 [facility] Comment on above: Performed By: #### G LULS #### Point of Care testing , Creatinine [Mass/volume] in Serum or PlasmaOrdered By: Shruti Savage on 02-28-2023 Creatinine [Mass/Vol] 1.78 mg/dL High 0.70-1.30 [facility] Comment on above: Performed By: #### G LULS #### Point of Care testing , Glucose Poct Glucometerson 1 Commemt1 Glu2: Cleaned Meter Normal [facility] Comment on above: Result Comment: PERF ORMED BY: [facility] [address] [place] [address] PATHOLOGIST MOTOR GRADER ROUGH GRADE ALEJANDRINA EID M.D. Performed By: #### G LULS #### Point of Care testing , Glucose [Mass/Vol] 96 mg/dL Normal [facility] Comment on above: Result Comment: [place] om Glucose Reference Range is dependent on time and content of last meal. Glucose of more than 200 mg/dL in a nonstressed, ambulatory subject supports the diagnosis of Diabetes Mellitus. PERFORMED BY: [facility] [address] [place] [address] PATHOLOGIST MOTOR GRADER ROUGH GRADE ALEJANDRINA EID M.D. Performed By: #### G LULS #### Point of Care testing , Glucose [Mass/Vol] 83 mg/dL Normal [facility] Comment on above: Result Comment: [place] om Glucose Reference Range is dependent on time and content of last meal. Glucose of more than 200 mg/dL in a nonstressed, ambulatory subject supports the diagnosis of Diabetes Mellitus. PERFORMED BY: [facility] [address] [place] [address] PATHOLOGIST MOTOR GRADER ROUGH GRADE ALEJANDRINA EID M.D. Performed By: #### G LULS #### Point of Care testing , Glucose [Mass/volume] in Ser um or PlasmaOrdered By: Obgeronimodaenzo Covarrubiasr on 02-28-2023 Glucose [Mass/Vol] 82 mg/dL Normal 70-100 [facility] Comment on above: ADA recommended refe rence rangeRandom Glucose Reference Range is dependent on time and content of last meal. Glucose of more than 200 mg/dL in a nonstressed, ambulatory subject supports the diagnosis of Diabetes Mellitus. Result Comment: [place] om Glucose Reference Range is dependent on time and content of last meal. Glucose of more than 200 mg/dL in a nonstressed, ambulatory subject supports the diagnosis of Diabetes Mellitus. ADA recommended reference range Performed By: #### G LULS #### Point of Care testing , Hematocrit [Volume Fraction] of Blood by Automated countOrdered By: Obgeronimodaenzo Barraganomar on 02-28-2023 Hematocrit (Bld) [Volume fraction] 27.9 % Low 38.8-50.0 [facility] Comment on above: Result Comment: PERF ORMED BY: [facility] [address] [place] [address] PATHOLOGIST MOTOR GRADER ROUGH GRADE ALEJANDRINA EID M.D. Performed By: #### G LULS #### Point of Care testing , Hemoglobin [Mass/volume] in BloodOrdered By: Shruti Barraganomar on 02-28-2023 Hemoglobin (Bld) [Mass/Vol] 9.7 g/dL Low 13.0-17.0 [facility] Comment on above: Performed By: #### G LULS #### Point of Care testing , No Panel InformationOrdered By: Dwain Peñaloza on 02-28-2023 Bedside Glucose Comment Glu2: cleaned meter [facility] No Panel InformationOrdered By: Shruti Savage on 02-28-2023 Estimated GFR (CKD-EPI) 40.533 mL/Min [facility]acy Creatinine Clearance (Chem 40.83 [facility] Potassium [Moles/volume] in Serum or PlasmaOrdered By: Shruti Barraganomar on 02-28-2023 Potassium [Moles/Vol] 4.5 mmol/L Normal 3.5-5.1 [facility] Comment on above: Performed By: #### G LULS #### Point of Care testing , Serum or plasma anion gap de terminationOrdered By: Shruti Barraganomar on 02-28-2023 Anion gap [Moles/Vol] 7.3 mmol/L Normal 6.0-15.0 [facility] Comment on above: Performed By: #### G LULS #### Point of Care testing , Sodium [Moles/volume] in Ser um or PlasmaOrdered By: Germandah Yungomar on 02-28-2023 Sodium [Moles/Vol] 143 mmol/L Normal 136-145 [facility] Comment on above: Performed By: #### G LULS #### Point of Care testing , Urea nitrogen [Mass/volume] in Serum or PlasmaOrdered By: Germandaenzo Barraganomar on 02-28-2023 Urea nitrogen [Mass/Vol] 23 mg/dL Significant change down 7-25 [facility] Comment on above: Delta: 70 on [phone] Performed By: #### G LULS #### Point of Care testing , Glucose Poct Glucometerson 1 Glucose [Mass/Vol] 172 mg/dL Normal [facility] Comment on above: Result Comment: [facility] Glucose Reference Range is dependent on time and content of last meal. Glucose of more than 200 mg/dL in a nonstressed, ambulatory subject supports the diagnosis of Diabetes Mellitus. PERFORMED BY: [place] [address] PATHOLOGIST [employer] ALEJANDRINA EID M.D. Performed By: #### G LULS #### Point of Care testing , Glucose [Mass/Vol] 89 mg/dL Normal [facility] Comment on above: Result Comment: [facility] Glucose Reference Range is dependent on time and content of last meal. Glucose of more than 200 mg/dL in a nonstressed, ambulatory subject supports the diagnosis of Diabetes Mellitus. PERFORMED BY: [place] [id number] PATHOLOGIST [employer] ALEJANDRINA EID M.D. Performed By: #### G LULS #### Point of Care testing , Glucose [Mass/Vol] 94 mg/dL Normal [facility] Comment on above: Result Comment: [facility] Glucose Reference Range is dependent on time and content of last meal. Glucose of more than 200 mg/dL in a nonstressed, ambulatory subject supports the diagnosis of Diabetes Mellitus. PERFORMED BY: [place] [id number] PATHOLOGIST [employer] ALEJANDRINA EID M.D. Performed By: #### G LULS #### Point of Care testing , Glucose [Mass/Vol] 96 mg/dL Normal [facility] Comment on above: Result Comment: [facility] Glucose Reference Range is dependent on time and content of last meal. Glucose of more than 200 mg/dL in a nonstressed, ambulatory subject supports the diagnosis of Diabetes Mellitus. PERFORMED BY: [place] [id number] PATHOLOGIST [employer] ALEJANDRINA EID M.D. Performed By: #### G LULS #### Point of Care testing , Hemoglobin and Hematocriton 02-27-2023 Hematocrit (Bld) [Volume fraction] 30.4 % Low 38.8-50.0 [facility] Comment on above: Result Comment: PERF ORMED BY: [address] [place] [address] PATHOLOGIST [employer] ALEJANDRINA EID M.D. Performed By: #### G LULS #### Point of Care testing , Hemoglobin (Bld) [Mass/Vol] 10.6 g/dL Low 13.0-17.0 [facility] Comment on above: Performed By: #### G LULS #### Point of Care testing , Hematocrit (Bld) [Volume fraction] 25.9 % Low 38.8-50.0 [facility] Comment on above: Result Comment: PERF ORMED BY: [address] [place] [address] PATHOLOGIST [employer] ALEJANDRINA EID M.D. Performed By: #### G LULS #### Point of Care testing , Hemoglobin (Bld) [Mass/Vol] 9.2 g/dL Low 13.0-17.0 [facility] Comment on above: Performed By: #### G LULS #### Point of Care testing , Alanine aminotransferase [En zymatic activity/volume] in Serum or PlasmaOrdered By: Shruti Savage on 02-26-2023 ALT [Catalytic activity/Vol] 11 U/L Normal 7-52 [facility] Comment on above: Performed By: #### G LULS #### Point of Care testing , Albumin [Mass/volume] in Ser um or Plasma by Bromocresol green (BCG) dye binding methoOrdered By: Shruti Savage on 02-26-2023 Albumin BCG dye [Mass/Vol] 3.2 g/dL 3.5-5.7 [facility] Alkaline phosphatase [Enzyma tic activity/volume] in Serum or PlasmaOrdered By: Shruti Savage on 02-26-2023 ALP [Catalytic activity/Vol] 25 U/L Low 34-104 [facility] Comment on above: Performed By: #### G LULS #### Point of Care testing , Aspartate aminotransferase [ Enzymatic activity/volume] in Serum or PlasmaOrdered By: Obaydah Daromar on 02-26-2023 AST [Catalytic activity/Vol] 11 U/L Low 13-39 [facility] Comment on above: Performed By: #### G LULS #### Point of Care testing , Basophils Auto (Bld) [#/Vol] Ordered By: Obaydah Daromar on 02-26-2023 Basophils (Bld) [#/Vol] N/A F [facility] Basophils/100 WBC Auto (Bld) Ordered By: Obaydah Daromar on 02-26-2023 Basophils/100 WBC (Bld) N/A F [facility] Bilirubin.total [Mass/volume ] in Serum or PlasmaOrdered By: Obgeronimodah Daromar on 02-26-2023 Bilirubin [Mass/Vol] 0.6 mg/dL Normal 0.3-1.0 [facility] Comment on above: Performed By: #### G LULS #### Point of Care testing , Comprehensive Metabolic Pane mayo 02-26-2023 Albumin [Mass/Vol] 3.2 g/dL Low 3.5-5.7 [facility] Comment on above: Performed By: #### G LULS #### Point of Care testing , Anion gap [Moles/Vol] 8.5 mmol/L Normal 6.0-15.0 [facility] Comment on above: Performed By: #### G LULS #### Point of Care testing , Calcium [Mass/Vol] 8.2 mg/dL Low 8.6-10.3 [facility] Comment on above: Performed By: #### G LULS #### Point of Care testing , Chloride [Moles/Vol] 113 mmol/L High 98-107 [facility] Comment on above: Performed By: #### G LULS #### Point of Care testing , CO2 [Moles/Vol] 23.3 mmol/L Normal 21.0-31.0 [facility] Comment on above: Performed By: #### G LULS #### Point of Care testing , Creatinine [Mass/Vol] 2.03 mg/dL High 0.70-1.30 [facility] Comment on above: Performed By: #### G LULS #### Point of Care testing , Creatinine Clr Calc Pharmacy 36.00 Normal [facility] Comment on above: Result Comment: PERF ORMED BY: [facility] [place] [address] PATHOLOGIST [employer] ALEJANDRINA EID M.D. Performed By: #### G LULS #### Point of Care testing , GFR/1.73 sq M.predicted MDRD (S/P/Bld) [Vol rate/Area] 34.619 mL/min/{1.73_m2} Normal [facility] Comment on above: Performed By: #### G LULS #### Point of Care testing , Glucose [Mass/Vol] 91 mg/dL Normal 70-100 [facility] Comment on above: Result Comment: [facility] Glucose Reference Range is dependent on time and content of last meal. Glucose of more than 200 mg/dL in a nonstressed, ambulatory subject supports the diagnosis of Diabetes Mellitus. ADA recommended reference range Performed By: #### G LULS #### Point of Care testing , Potassium [Moles/Vol] 3.8 mmol/L Normal 3.5-5.1 [facility] Comment on above: Performed By: #### G LULS #### Point of Care testing , Sodium [Moles/Vol] 141 mmol/L Normal 136-145 [facility] Comment on above: Performed By: #### G LULS #### Point of Care testing , Urea nitrogen [Mass/Vol] 70 mg/dL High 7-25 [facility] Comment on above: Performed By: #### G LULS #### Point of Care testing , Diff and CBCon 02-26-2023 Hematocrit (Bld) [Volume fraction] 28.4 % Low 38.8-50.0 [facility] Comment on above: Performed By: #### G LULS #### Point of Care testing , Hemoglobin (Bld) [Mass/Vol] 9.7 g/dL Low 13.0-17.0 [facility] Comment on above: Performed By: #### G LULS #### Point of Care testing , Mean Corpuscular HGB Conc 34.2 g/dL Normal 32.5-35.6 [facility] Comment on above: Performed By: #### G LULS #### Point of Care testing , Myelocytes 3 % High 0-0 [facility] Comment on above: Performed By: #### G LULS #### Point of Care testing , Ovalocytes Slight Normal [facility] Comment on above: Performed By: #### G LULS #### Point of Care testing , Platelet Estimate Decreased Normal Normal [facility] Comment on above: Performed By: #### G LULS #### Point of Care testing , Platelet Morphology Normal Normal Normal [facility] Comment on above: Result Comment: PERF ORMED BY: [facility] [address] [place] [address] PATHOLOGIST [employer] ALEJANDRINA EID M.D. Performed By: #### G LULS #### Point of Care testing , Poikilocytosis Slight Normal [facility] Comment on above: Performed By: #### G LULS #### Point of Care testing , Polychromasia Slight Normal [facility] Comment on above: Performed By: #### G LULS #### Point of Care testing , Eosinophils Auto (Bld) [#/Vo l]Ordered By: Shruti Covarrubiasr on 02-26-2023 Eosinophils (Bld) [#/Vol] N/A [facility] Eosinophils/100 WBC Auto (Bl d)Ordered By: Shruti Barraganomar on 02-26-2023 Eosinophils/100 WBC (Bld) N/A [facility] Erythrocyte distribution wid th [Ratio] by Automated countOrdered By: Shruti Savage on 02-26-2023 Erythrocyte distribution width (RBC) [Ratio] 15.0 % High 12.0-14.8 [facility] Comment on above: Performed By: #### G LULS #### Point of Care testing , Erythrocytes [#/volume] in B lood by Automated countOrdered By: Shruti Savage on 02-26-2023 RBC (Bld) [#/Vol] 3.33 10*6/uL Low 3.90-5.60 [facility] Comment on above: Performed By: #### G LULS #### Point of Care testing , Glucose Poct Glucometerson 1 Commemt1 Glu2: Cleaned Meter Normal [facility] Comment on above: Result Comment: PERF ORMED BY: [address] [place] [address] PATHOLOGIST [employer] ALEJANDRINA EID M.D. Performed By: #### G LULS #### Point of Care testing , Glucose [Mass/Vol] 141 mg/dL Normal [facility] Comment on above: Result Comment: [place] [facility] Glucose Reference Range is dependent on time and content of last meal. Glucose of more than 200 mg/dL in a nonstressed, ambulatory subject supports the diagnosis of Diabetes Mellitus. Performed By: #### G LULS #### Point of Care testing , Commemt1 Glu2: Cleaned Meter Normal [facility] Comment on above: Result Comment: PERF ORMED BY: [address] [place] [address] PATHOLOGIST MOT[employer] ALEJANDRINA EID M.D. Performed By: #### G LULS #### Point of Care testing , Glucose [Mass/Vol] 94 mg/dL Normal [facility] Comment on above: Result Comment: [place] [facility] Glucose Reference Range is dependent on time and content of last meal. Glucose of more than 200 mg/dL in a nonstressed, ambulatory subject supports the diagnosis of Diabetes Mellitus. Performed By: #### G LULS #### Point of Care testing , Glucose [Mass/Vol] 106 mg/dL Normal [facility] Comment on above: Result Comment: [place] [facility] Glucose Reference Range is dependent on time and content of last meal. Glucose of more than 200 mg/dL in a nonstressed, ambulatory subject supports the diagnosis of Diabetes Mellitus. PERFORMED BY: [place] [address] PATHOLOGIST MOT[employer] ALEJANDRINA EID M.D. Performed By: #### G LULS #### Point of Care testing , Glucose [Mass/Vol] 94 mg/dL Normal [facility] Comment on above: Result Comment: [facility] Glucose Reference Range is dependent on time and content of last meal. Glucose of more than 200 mg/dL in a nonstressed, ambulatory subject supports the diagnosis of Diabetes Mellitus. PERFORMED BY: [place] [address] PATHOLOGIST MOT[employer] ALEJANDRINA EID M.D. Performed By: #### G LULS #### Point of Care testing , Hemoglobin and Hematocriton 02-26-2023 Hematocrit (Bld) [Volume fraction] 25.8 % Low 38.8-50.0 [facility] Comment on above: Result Comment: PERF ORMED BY: [place] [address] PATHOLOGIST MOTOR [employer] ALEJANDRINA EID M.D. Performed By: #### G LULS #### Point of Care testing , Hemoglobin (Bld) [Mass/Vol] 9.0 g/dL Low 13.0-17.0 [facility] Comment on above: Performed By: #### G LULS #### Point of Care testing , Hematocrit (Bld) [Volume fraction] 27.9 % Low 38.8-50.0 [facility] Comment on above: Result Comment: PERF ORMED BY: [place] [id number] PATHOLOGIST MOTOR [employer] ALEJANDRINA EID M.D. Performed By: #### H H #### [address] Hemoglobin (Bld) [Mass/Vol] 9.6 g/dL Low 13.0-17.0 [facility] Comment on above: Performed By: #### H H #### [facility] [address] [place] [id number] [facility] Le[facility] [#/volume] correc ayana for nucleated erythrocytes in Blood by Automated counOrdered By: Shruti Barraganomar on 02-26-2023 WBC corrected for nucl RBC Auto (Bld) [#/Vol] 9.8 10*3/uL 4.1-10.5 [facility] Leukocytes [#/volume] in Blo od by Automated countOrdered By: Obgeronimodaenzo Barraganomar on 02-26-2023 WBC (Bld) [#/Vol] 9.8 10*3/uL Normal 4.1-10.5 [facility] Comment on above: Performed By: #### G LULS #### Point of Care testing , Lymphocytes Auto (Bld) [#/Vo l]Ordered By: Obivan Barraganomar on 02-26-2023 Lymphocytes (Bld) [#/Vol] N/A [facility] Lymphocytes/100 WBC Auto (Bl d)Ordered By: Obgeronimodaenzo Barraganomar on 02-26-2023 Lymphocytes/100 WBC (Bld) N/A [facility] Lymphocytes/100 leukocytes i n Blood by Manual countOrdered By: Shruti Barraganomar on 02-26-2023 Lymphocytes/100 WBC (Bld) 20 % Normal 18-42 [facility] Comment on above: Performed By: #### G LULS #### Point of Care testing , MCH [Entitic mass] by Automa ayana countOrdered By: Shruti Covarrubiasr on 02-26-2023 MCH (RBC) [Entitic mass] 29.2 pg Normal 27.5-35.2 [facility] Comment on above: Performed By: #### G LULS #### Point of Care testing , MCHC Auto (RBC) [Mass/Vol]Or dered By: Germandaenzo Barraganomar on 02-26-2023 MCHC (RBC) [Mass/Vol] 34.2 g/dL 32.5-35.6 [facility] MCV [Entitic volume] by Auto mated countOrdered By: Shruti Barraganomar on 02-26-2023 MCV (RBC) [Entitic vol] 85.3 fL Normal 83.5-101 [facility] Comment on above: Performed By: #### G LULS #### Point of Care testing , Manual blood segmented neutr ophils/100 leukocytesOrdered By: Obaydah Daromar on 02-26-2023 Segmented neutrophils/100 WBC (Bld) 75 % High 50-70 [facility] Comment on above: Performed By: #### G LULS #### Point of Care testing , Monocytes Auto (Bld) [#/Vol] Ordered By: Obaydah Daromar on 02-26-2023 Monocytes (Bld) [#/Vol] N/A [facility] Monocytes/100 WBC Auto (Bld) Ordered By: Obaydah Daromar on 02-26-2023 Monocytes/100 WBC (Bld) N/A [facility] Monocytes/100 leukocytes in Blood by Manual countOrdered By: Obaydah Daromar on 02-26-2023 Monocytes/100 WBC (Bld) 2 % Normal 2-11 [facility] Comment on above: Performed By: #### G LULS #### Point of Care testing , Myelocytes/100 WBC Manual cn t (Bld)Ordered By: Obaydah Daromar on 02-26-2023 Myelocytes/100 WBC (Bld) 3 % 0-0 [facility] Neutrophils Auto (Bld) [#/Vo l]Ordered By: Obaydah Daromar on 02-26-2023 Neutrophils (Bld) [#/Vol] N/A [facility] Neutrophils/100 WBC Auto (Bl d)Ordered By: Obaydah Daromar on 02-26-2023 Neutrophils/100 WBC (Bld) N/A [facility] Nucleated erythrocytes [Pres ence] in Blood by Automated countOrdered By: Obaydah Daromar on 02-26-2023 Nucleated RBC Auto Ql (Bld) N/A [facility] Ovalocyte detectionOrdered B y: Obaydah Daromar on 02-26-2023 Ovalocytes LM Ql (Bld) Slight [facility] Platelet adequacy [Presence] in Blood by Light microscopyOrdered By: Obgeronimodaenzo Barraganomar on 02-26-2023 Platelets LM Ql (Bld) Decreased Normal [facility] Platelet mean volume [Entiti c volume] in Blood by Automated countOrdered By: Obgeronimodah Daromar on 02-26-2023 Platelet mean volume (Bld) [Entitic vol] 8.6 fL Normal 6.6-10.1 [facility] Comment on above: Result Comment: PERF ORMED BY: [facility] [address] [place] [address] PATHOLOGIST MOT[employer] ALEJANDRINA EID M.D. Performed By: #### G LULS #### Point of Care testing , Platelet morphology finding [Identifier] in BloodOrdered By: Obivan Barraganomar on 02-26-2023 Platelet morphology finding Nom (Bld) Normal Normal [facility] Platelets [#/volume] in Bloo d by Automated countOrdered By: Obgeronimodaenzo Barraganomar on 02-26-2023 Platelets (Bld) [#/Vol] 116 10*3/uL Signific ant change down 150-450 [facility] Comment on above: Delta: 155 on -1015 Performed By: #### G LULS #### Point of Care testing , Poikilocytosis [Presence] in Blood by Light microscopyOrdered By: Obivan Barraganomar on 02-26-2023 Poikilocytosis LM Ql (Bld) Slight [facility] Polychromasia [Presence] in Blood by Light microscopyOrdered By: Obgeronimodah Yungomar on 02-26-2023 Polychromasia LM Ql (Bld) [facility] Protein [Mass/volume] in Ser um or PlasmaOrdered By: Obgeronimodah Daromar on 02-26-2023 Protein [Mass/Vol] 5.3 g/dL Low 6.4-8.9 [facility] Comment on above: Performed By: #### G LULS #### Point of Care testing , RBC morphologyOrdered By: Ob ivan Barraganomar on 02-26-2023 RBC morphology finding Nom (Bld) N/A [facility] Serum globulin measurement b y calculation (mass/volume)Ordered By: Shruti Savage on 02-26-2023 Globulin (S) [Mass/Vol] 2.1 g/dL Normal [facility] Comment on above: Performed By: #### G LULS #### Point of Care testing , Serum or plasma albumin/glob ulin mass ratioOrdered By: Shruti Savage on 02-26-2023 Albumin/Globulin [Mass ratio] 1.5 {ratio} Normal [facility] Comment on above: Performed By: #### G LULS #### Point of Care testing , ABO/Rh Retypeon 02-25-2023 ABO/RH Recheck Result Positive Normal [facility] Comment on above: Result Comment: PERF ORMED BY: [facility] [address] [place] [address] PATHOLOGIST [employer] ALEJANDRINA EID M.D. Basic Metabolic Panelon 02-07 Anion gap [Moles/Vol] 9.9 mmol/L Normal 6.0-15.0 [facility] Comment on above: Performed By: #### G LULS #### Point of Care testing , Calcium [Mass/Vol] 8.2 mg/dL Low 8.6-10.3 [facility] Comment on above: Performed By: #### G LULS #### Point of Care testing , Chloride [Moles/Vol] 112 mmol/L High 98-107 [facility] Comment on above: Performed By: #### G LULS #### Point of Care testing , CO2 [Moles/Vol] 21.6 mmol/L Normal 21.0-31.0 [facility] Comment on above: Performed By: #### G LULS #### Point of Care testing , Creatinine [Mass/Vol] 2.17 mg/dL High 0.70-1.30 [facility] Comment on above: Performed By: #### G LULS #### Point of Care testing , Creatinine Clr Calc Pharmacy 33.67 Normal [facility] Comment on above: Result Comment: PERF ORMED BY: [facility] [place] [address] PATHOLOGIST MOT[employer] ALEJANDRINA EID M.D. Performed By: #### G LULS #### Point of Care testing , GFR/1.73 sq M.predicted MDRD (S/P/Bld) [Vol rate/Area] 31.957 mL/min/{1.73_m2} Normal [facility] Comment on above: Performed By: #### G LULS #### Point of Care testing , Glucose [Mass/Vol] 117 mg/dL High 70-100 [facility] Comment on above: Result Comment: [facility] Glucose Reference Range is dependent on time and content of last meal. Glucose of more than 200 mg/dL in a nonstressed, ambulatory subject supports the diagnosis of Diabetes Mellitus. ADA recommended reference range Performed By: #### G LULS #### Point of Care testing , Potassium [Moles/Vol] 3.5 mmol/L Normal 3.5-5.1 [facility] Comment on above: Performed By: #### G LULS #### Point of Care testing , Sodium [Moles/Vol] 140 mmol/L Normal 136-145 [facility] Comment on above: Performed By: #### G LULS #### Point of Care testing , Urea nitrogen [Mass/Vol] 98 mg/dL High 7-25 [facility] Comment on above: Performed By: #### G LULS #### Point of Care testing , Complete Blood Count Auto Di ffon 02-25-2023 Basophils (Bld) [#/Vol] 0.0 10*3/uL Normal 0.0-0.2 [facility] Comment on above: Result Comment: PERF ORMED BY: [facility] [place] [address] PATHOLOGIST MOT[employer] ALEJANDRINA EID M.D. Performed By: #### G LULS #### Point of Care testing , Basophils/100 WBC (Bld) 0.1 % Normal . [facility] Comment on above: Performed By: #### G LULS #### Point of Care testing , Eosinophils (Bld) [#/Vol] 0.0 10*3/uL Normal 0.0-0.45 [facility] Comment on above: Performed By: #### G LULS #### Point of Care testing , Eosinophils/100 WBC (Bld) 0.0 % Normal . [facility] Comment on above: Performed By: #### G LULS #### Point of Care testing , Erythrocyte distribution width (RBC) [Ratio] 14.8 % Normal 12.0-14.8 [facility] Comment on above: Performed By: #### G LULS #### Point of Care testing , Hematocrit (Bld) [Volume fraction] 24.7 % Low 38.8-50.0 [facility] Comment on above: Performed By: #### G LULS #### Point of Care testing , Hemoglobin (Bld) [Mass/Vol] 8.3 g/dL Low 13.0-17.0 [facility] Comment on above: Performed By: #### G LULS #### Point of Care testing , Lymphocytes (Bld) [#/Vol] 1.9 10*3/uL Normal 1.00-4.8 [facility] Comment on above: Performed By: #### G LULS #### Point of Care testing , Lymphocytes/100 WBC (Bld) 14.7 % Normal . [facility] Comment on above: Performed By: #### G LULS #### Point of Care testing , MCH (RBC) [Entitic mass] 28.8 pg Normal 27.5-35.2 [facility] Comment on above: Performed By: #### G LULS #### Point of Care testing , MCV (RBC) [Entitic vol] 85.3 fL Normal 83.5-101 [facility] Comment on above: Performed By: #### G LULS #### Point of Care testing , Mean Corpuscular HGB Conc 33.7 g/dL Normal 32.5-35.6 [facility] Comment on above: Performed By: #### G LULS #### Point of Care testing , Monocytes (Bld) [#/Vol] 0.9 10*3/uL High 0.0-0.8 [facility] Comment on above: Performed By: #### G LULS #### Point of Care testing , Monocytes/100 WBC (Bld) 6.8 % Normal . [facility] Comment on above: Performed By: #### G LULS #### Point of Care testing , Neutrophils (Bld) [#/Vol] 10.3 10*3/uL High 1.8-7.7 [facility] Comment on above: Performed By: #### G LULS #### Point of Care testing , Neutrophils/100 WBC (Bld) 78.4 % Normal . [facility] Comment on above: Performed By: #### G LULS #### Point of Care testing , NRBC% 0.1 /100{WBC} Normal 0-0.5 [facility] Comment on above: Performed By: #### G LULS #### Point of Care testing , Platelet mean volume (Bld) [Entitic vol] 8.9 fL Normal 6.6-10.1 [facility] Comment on above: Performed By: #### G LULS #### Point of Care testing , Platelets (Bld) [#/Vol] 155 10*3/uL Normal 150-450 [facility] Comment on above: Performed By: #### G LULS #### Point of Care testing , RBC (Bld) [#/Vol] 2.90 10*6/uL Low 3.90-5.60 [facility] Comment on above: Performed By: #### G LULS #### Point of Care testing , WBC (Bld) [#/Vol] 13.1 10*3/uL High 4.1-10.5 [facility] Comment on above: Performed By: #### G LULS #### Point of Care testing , ECG 12 lead ECG 02-25-2023 ECG 12 lead ECG [facility] [place] [address] Electrocardiograph Report Signed Patient: Maury Issa MR#: [id number] : 1950 Acct:[id number] Age/Sex: 72 / M ADM Date: 02/24/23 Loc: Room: [address] [place] [address] Type: ADM IN Attending Dr: Shurti Savage MD Ordering Provider: Rachel Jin MD [...] previous ECGs available Confirmed by [facility]IGH[facility] KNOTT [facility] ([id number] on 02/27/2023 10:42:24 AM Referred By: Electronically Signed By:HAMLET REYES MD [facility] Transcribed By: MUS Signed By Christian Reyes MD 02/27/23 1042 Normal [facility] Glucose Poct Glucometerson 1 Glucose [Mass/Vol] 139 mg/dL Normal [facility] Comment on above: Result Comment: [facility] Glucose Reference Range is dependent on time and content of last meal. Glucose of more than 200 mg/dL in a nonstressed, ambulatory subject supports the diagnosis of Diabetes Mellitus. PERFORMED BY: [address] [place] [address] PATHOLOGIST MOTOR [employer]AD[employer] GRADE ALEJANDRNIA EID M.D. Performed By: #### G LULS #### Point of Care testing , Glucose [Mass/Vol] 170 mg/dL Normal [facility] Comment on above: Result Comment: [facility] Glucose Reference Range is dependent on time and content of last meal. Glucose of more than 200 mg/dL in a nonstressed, ambulatory subject supports the diagnosis of Diabetes Mellitus. PERFORMED BY: [facility] [address] [place] [address] PATHOLOGIST MOTOR GRAD[employer] GRADE ALEJANDRINA EID M.D. Performed By: #### G LULS #### Point of Care testing , Glucose [Mass/Vol] 150 mg/dL Normal [facility] Comment on above: Result Comment: [place] [facility] Glucose Reference Range is dependent on time and content of last meal. Glucose of more than 200 mg/dL in a nonstressed, ambulatory subject supports the diagnosis of Diabetes Mellitus. PERFORMED BY: [place] [address] PATHOLOGIST MOTOR GRAD[employer] GRADE LAEJANDRINA EID M.D. Performed By: #### G LULS #### Point of Care testing , Glucose [Mass/Vol] 177 mg/dL Normal [facility] Comment on above: Result Comment: [facility] Glucose Reference Range is dependent on time and content of last meal. Glucose of more than 200 mg/dL in a nonstressed, ambulatory subject supports the diagnosis of Diabetes Mellitus. PERFORMED BY: [place] [address] PATHOLOGIST MOTOR [employer] ALEJANDRINA EID M.D. Performed By: #### G LULS #### Point of Care testing , Hemoglobin and Hematocriton 02-25-2023 Hematocrit (Bld) [Volume fraction] 26.9 % Low 38.8-50.0 [facility] Comment on above: Result Comment: PERF ORMED BY: [place] [address] PATHOLOGIST MOTOR [employer] ALEJANDRINA EID M.D. Performed By: #### H H #### [address] Hemoglobin (Bld) [Mass/Vol] 9.3 g/dL Low 13.0-17.0 [facility] Comment on above: Performed By: #### H H #### [address] Hematocrit (Bld) [Volume fraction] 21.4 % Low 38.8-50.0 [facility] Comment on above: Result Comment: PERF ORMED BY: [place] [address] PATHOLOGIST MOTOR [employer] ALEJANDRINA EID M.D. Performed By: #### G LULS #### Point of Care testing , Hemoglobin (Bld) [Mass/Vol] 7.3 g/dL Low 13.0-17.0 [facility] Comment on above: Performed By: #### G LULS #### Point of Care testing , Hematocrit (Bld) [Volume fraction] 26.1 % Low 38.8-50.0 [facility] Comment on above: Result Comment: PERF ORMED BY: [place] [address] PATHOLOGIST MOTOR GRAD[employer] ALEJANDRINA EID M.D. Performed By: #### G LULS #### Point of Care testing , Hemoglobin (Bld) [Mass/Vol] 8.7 g/dL Low 13.0-17.0 [facility] Comment on above: Performed By: #### G LULS #### Point of Care testing , LeukoReduced RBCon 3 LeukoReduced RBC TRANSFUSED 02/25/23 0243 Normal [facility] Troponin I High Sensitivityo n 02-25-2023 Troponin I High Sensitivity 13.5 pg/mL Normal 0.0-20.0 [facility] Comment on above: Result Comment: PERF ORMED BY: [place] [address] PATHOLOGIST MOTOR [employer]AD[employer] ALEJANDRINA EID M.D. Performed By: #### G LULS #### Point of Care testing , Troponin I High Sensitivity 13.6 pg/mL Normal 0.0-20.0 [facility] Comment on above: Result Comment: PERF ORMED BY: [place] [address] PATHOLOGIST MOTOR [employer]AD[employer] ALEJANDRINA EID M.D. Performed By: #### G LULS #### Point of Care testing , Troponin I.cardiac [Mass/vol ume] in Serum or Plasma by Detection limit <= 0.01 ng/Ordered By: Rachel Jin on 02-25-2023 Troponin I.cardiac DL <= 0.01 ng/mL [Mass/Vol] 13.5 pg/mL 0.0-20.0 [facility] Type and Screenon 02-25-2023 ABO and Rh group Nom (Bld) Blood group AB Rh(D) positive Normal [facility] Comment on above: Order Comment: Trans fuse now? Y Number of units to transfuse now? 2 Transfuse now? Y Number of units to transfuse now? 2 Result Comment: PERF ORMED BY: [place] [id number] PATHOLOGIST MOTOR GRAD[employer] GR[employer] ALEJANDRINA EID M.D. XR knee RT 2Von 02-25-2023 XR knee RT 2V [facility] [place] [address] XRay Report Signed Patient: Maury Issa MR#: [id number] : 1950 Acct:[id number] Age/Sex: 72 / M ADM Date: 02/24/23 Loc: Room: [address] [place] [address] Type: ADM IN Attending Dr: Shruti Savage [...] Riki Rider M.D.02/25/2023 12:31 PM Dictation Location: [place] [address] Transcribed By: [facility] 02/25/23 1231 Dictated By: Riki Rider DO 02/25/23 1230 Signed By: 02/25/23 1231 Normal [facility] Complete Blood Count Auto Di ffon 02-24-2023 Basophils (Bld) [#/Vol] 0.0 10*3/uL Normal 0.0-0.2 [facility] Comment on above: Result Comment: PERF ORMED BY: [facility] [place] [address] PATHOLOGIST MOTOR GRAD[employer] GR[employer] ALEJANDRINA EID M.D. Performed By: #### G LULS #### Point of Care testing , Basophils/100 WBC (Bld) 0.1 % Normal . [facility] Comment on above: Performed By: #### G LULS #### Point of Care testing , Eosinophils (Bld) [#/Vol] 0.0 10*3/uL Normal 0.0-0.45 [facility] Comment on above: Performed By: #### G LULS #### Point of Care testing , Eosinophils/100 WBC (Bld) 0.0 % Normal . [facility] Comment on above: Performed By: #### G LULS #### Point of Care testing , Erythrocyte distribution width (RBC) [Ratio] 14.6 % Normal 12.0-14.8 [facility] Comment on above: Performed By: #### G LULS #### Point of Care testing , Hematocrit (Bld) [Volume fraction] 20.4 % Low 38.8-50.0 [facility] Comment on above: Performed By: #### G LULS #### Point of Care testing , Hemoglobin (Bld) [Mass/Vol] 7.0 g/dL Low 13.0-17.0 [facility] Comment on above: Performed By: #### G LULS #### Point of Care testing , Lymphocytes (Bld) [#/Vol] 1.3 10*3/uL Normal 1.00-4.8 [facility] Comment on above: Performed By: #### G LULS #### Point of Care testing , Lymphocytes/100 WBC (Bld) 9.6 % Normal . [facility] Comment on above: Performed By: #### G LULS #### Point of Care testing , MCH (RBC) [Entitic mass] 29.1 pg Normal 27.5-35.2 [facility] Comment on above: Performed By: #### G LULS #### Point of Care testing , MCV (RBC) [Entitic vol] 84.8 fL Normal 83.5-101 [facility] Comment on above: Performed By: #### G LULS #### Point of Care testing , Mean Corpuscular HGB Conc 34.3 g/dL Normal 32.5-35.6 [facility] Comment on above: Performed By: #### G LULS #### Point of Care testing , Monocytes (Bld) [#/Vol] 0.6 10*3/uL Normal 0.0-0.8 [facility] Comment on above: Performed By: #### G LULS #### Point of Care testing , Monocytes/100 WBC (Bld) 4.5 % Normal . [facility] Comment on above: Performed By: #### G LULS #### Point of Care testing , Neutrophils (Bld) [#/Vol] 11.7 10*3/uL High 1.8-7.7 [facility] Comment on above: Performed By: #### G LULS #### Point of Care testing , Neutrophils/100 WBC (Bld) 85.8 % Normal . [facility] Comment on above: Performed By: #### G LULS #### Point of Care testing , NRBC% 0.0 /100{WBC} Normal 0-0.5 [facility] Comment on above: Performed By: #### G LULS #### Point of Care testing , Platelet mean volume (Bld) [Entitic vol] 8.6 fL Normal 6.6-10.1 [facility] Comment on above: Performed By: #### G LULS #### Point of Care testing , Platelets (Bld) [#/Vol] 148 10*3/uL Low 150-450 [facility] Comment on above: Performed By: #### G LULS #### Point of Care testing , RBC (Bld) [#/Vol] 2.41 10*6/uL Low 3.90-5.60 [facility] Comment on above: Performed By: #### G LULS #### Point of Care testing , WBC (Bld) [#/Vol] 13.6 10*3/uL High 4.1-10.5 [facility] Comment on above: Performed By: #### G MIGUEL #### Point of Care testing , Capillary blood glucose stephanie urement by glucometer (mass/volume)Ordered By: Esteban Steward on 02-18-2023 Glucose [Mass/Vol] 99 mg/dL Normal [facility] Comment on above: Random Glucose Refer ence Range is dependent on time and content of last meal. Glucose of more than 200 mg/dL in a nonstressed, ambulatory subject supports the diagnosis of Diabetes Mellitus. Result Comment: [place] [facility] Glucose Reference Range is dependent on time and content of last meal. Glucose of more than 200 mg/dL in a nonstressed, ambulatory subject supports the diagnosis of Diabetes Mellitus. PERFORMED BY: [facility] [place] [address] PATHOLOGIST MOTOR GRAD[employer] GR[employer] ALEJANDRINA EID M.D. Performed By: #### G MIGUEL #### Point of Care testing , [facility] 02-18-2023 L Specimen: [id number] Received: 02/18/23 Status: EVERETTE Cheannalisa Num: [id number] Spec Type: Surgical Subm Dr: Esteban Steward MD Tissues: A Duodenum - Biopsy (DUODENAL BX) B Stomach - Biopsy/Polyp (ANTRAL POLYP) C STOMACH FOR HP (ANTRAL HP) Procedures: HE/6, Gross/Micro L4/3, H PYLORI, IHC First AB Age/ Patient Sex Location Account Attending Physician Maury Issa/[facility] [id number] Esteban Steward MD SPEC NUM: [id number] RECD: 02/18/23 STATUS: EVERETTE SOTOMAYOR NUM: [id number] NORA: 02/18/23 DR: Esteban Steward MD ENTERED: 02/18/[address]: SHAUNA TYPE: Surgical DEPT: S ORDERED: HE/6, Gross/Micro [...] control for H. pylori immunostaining reviewed. Specimen: [id number] Received: 02/18/23 Status: EVERETTE Sotomayor Num: [id number] Spec Type: Surgical Subm Dr: Esteban Steward MD Tissues: A Duodenum - Biopsy (DUODENAL BX) B Stomach - Biopsy/Polyp (ANTRAL POLYP) C STOMACH FOR HP (ANTRAL HP) Procedures: HE/6, Gross/Micro L4/3, H PYLORI, IHC First AB Patient: Maury Issa [id number] (Continued) Specimen: [id number] Received: 02/18/23 (Continued) Signed (signature on file) Juan Adams MD 02/22/23 1309 Specimen: [id number] Received: 02/18/23 Status: EVERETTE Sotomayor Num: [id number] Spec Type: Surgical Subm Dr: Esteban Steward MD Tissues: A Duodenum - Biopsy (DUODENAL BX) B Stomach - Biopsy/Polyp (ANTRAL POLYP) C STOMACH FOR HP (ANTRAL HP) Procedures: HE/6, Gross/Micro L4/3, H PYLORI, IHC First AB Patient: DinoraMaury barrientos Jann [id number] (Continued) Specimen: [id number] Received: 02/18/23 (Continued) Clinical Information Diarrhea, dyspepsia, [...] microscopic examination confirms the diagnosis. CPT Codes 73690e3 Specimen: [id number] Received: 02/18/23 Status: EVERETTE Cheannalisa Num: [id number] Spec Type: Surgical Subm Dr: Esteban Steward MD Tissues: A Duodenum - Biopsy (DUODENAL BX) B Stomach - Biopsy/Polyp (ANTRAL POLYP) C STOMACH FOR HP (ANTRAL HP) Procedures: HE/6, Gross/Micro L4/3, H PYLORI, IHC First AB Patient: DinorafloydMaury Jann [id number] (Continued) ------- (more content not included)... Normal [facility] Lab Reportson 10-31-2022 Lab Reports [id number] 3#1.00CD:127 Normal [facility] Ambulatory Visit Summaryon 0 10-27-2022 Ambulatory Visit Summary DECOURSEY, MAURY E :1950 Visit Date:10/27/2022 Ambulatory Visit Instructions Your Diagnosis BPH with urinary obstruction Elevated PSA Renal cyst Bilateral varicoceles Glucosuria Tests Performed Urnls Dip Stick Auto w/o Microscopy POC 44731 Your Care Team Attending Physician - Francisca [...] When: Comments: PRN Where: [address] [place] [address] [phone] Medications What How Much When Instructions Unchanged [...] Urnls Dip Stick Auto w/o Microscopy POC 42460 (10/27/2022) Bilirubin Urine Dipstick - Negative Blood Urine Dipstick - Trace-intact Glucose Urine Dipstick - 3+ 1000 mg/dl Ketones Urine Dipstick - Negative Leukocytes Urine Dipstick - Negative Nitrite Urine Dipstick - Negative Protein Urine Dipstick - 2+ (100 mg/dl) Specific [place] Urine Dipstick - 1.020 Urine Appearance Urine [...] is d (more content not included)... Normal [facility] Patient Educationon 10-28-19 Patient Education Oncology Prostate [...] Where to find more information ? [employer] [place] [employer]: www.cancer.org ? [place] [employer]: www.auanet.org Contact a health care [...] adds flu (more content not included)... Normal [facility] Screenson 10-27-2022 Screens [id number] 0#1.00CD:127 Normal [facility] Screens [id number] 1.00CD:127 Normal [facility] Urology Office/Clinic Noteon 10-27-2022 Urology Office/Clinic Note [...] 10/18/22 CT 09/12/22. Pt had gone to [place] [facility] due to LLQ pain. Dysuria: denies [...] PSA surveillance with PCP. Pt presented to [facility] 09/12/22 for bowel dysfunction. 1. BPH [...] control recommended Follow-up With When Contact Information Francisca Pierre MD, URL, [facility] [address] [place] [address] (more content not included)... [facility] Comment on above: Result Comment: Elec tronically Signed By: Francisca Pierre MD\.br\Date and Time Signed: 10/27/22 18:26 EDT\.br\Electronically Co-Signed By: Ramya Ghosh\.br\Date and Time Co-Signed: 10/27/22 10:40 EDT ED Note-Physicianon 10-26-19 ED Note-Physician [id number] 1.00CD:127 [facility] RAD - Ultrasound Reporton RAD - Ultrasound Report [id number] 1.00CD:127 Normal [facility] AMYLASEon 09-12-2022 Amylase [Catalytic activity/Vol] 101 U/L Normal 25-115 [facility] Comment on above: Performed By: #### A MY, CMP, LIPA #### [facility] [address] [place] [address] [address] Tami Merrill CBC AUTO DIFFon 09-12-2022 BASO # 0.0 103/ul Normal 0.0-0.1 [facility] Comment on above: Performed By: #### C BC ####[facility] [address] [place] [address]DrFlorentin Merrill Basophils/100 WBC (Bld) 0.2 % Normal 0.2-2.0 [facility] Comment on above: Performed By: #### C BC ####[facility] [address] [place] [address]DrFlorentin Merrill EO # 0.3 103/ul Normal 0.0-0.7 [facility] Comment on above: Performed By: #### C BC ####[facility] [address] [place] [address]Dr. Tami Merrill Eosinophils/100 WBC (Bld) 3.1 % Normal 0.9-7.0 [facility] Comment on above: Performed By: #### C BC ####[facility] [address] [place] [address]DrFlorentin Merrill Erythrocyte distribution width (RBC) [Ratio] 13.8 % Normal 11.0-15.0 [facility] Comment on above: Performed By: #### C BC ####[facility] [address] [place] [address]DrFlorentin Merrill Hematocrit (Bld) [Volume fraction] 41.9 % Critically low 42.0-54.0 [facility] Comment on above: Performed By: #### C BC ####[facility] [address] [place] [id number]. Tami Merrill Hemoglobin (Bld) [Mass/Vol] 14.0 g/dL Normal 14.0-18.0 [facility] Comment on above: Performed By: #### C BC ####[facility] [address] [place] [address]Dr. Tami Merrill IG # 0.02 10e3/ul Normal 0.00-0.03 [facility] Comment on above: Performed By: #### C BC ####[facility] [address] [place] [address]Dr. Tami Merrill IG % 0.2 % Normal 0.0-0.5 [facility] Comment on above: Performed By: #### C BC ####[facility] [address] [place] [address]Dr. Tami Merrill LYMPH # 1.5 103/ul Normal 1.2-3.8 [facility] Comment on above: Performed By: #### C BC ####[facility] [address] [place] [address]Dr. Tami Merrill Lymphocytes/100 WBC (Bld) 18.4 % Critically low 20.5-60.0 [facility] Comment on above: Performed By: #### C BC ####[facility] [address] [place] [address]Dr. Tami Merrill MANUAL DIFF REQ NO Normal [facility] Comment on above: Performed By: #### C BC ####[facility] [address] [place] [address]Dr. Tami Merrill MCH (RBC) [Entitic mass] 27.6 pg Normal 25.9-34.0 [facility] Comment on above: Performed By: #### C BC ####[facility] [address] [place], [place] [address]Dr. Tami Merrill MCHC (RBC) [Mass/Vol] 33.4 g/dL Normal 29.9-35.2 [facility] Comment on above: Performed By: #### C BC ####[facility] [address] [place], [place] [address]Dr. Tami Merrill MCV (RBC) [Entitic vol] 82.6 fL Normal 80.0-94.0 [facility] Comment on above: Performed By: #### C BC ####[facility] [address] [place] [address]Dr. Tami Merrill MONO # 0.8 103/ul Normal 0.3-0.8 [facility] Comment on above: Performed By: #### C BC ####[facility] [address] [place] [address]Dr. Tami Garfield Monocytes/100 WBC (Bld) 9.6 % Normal 1.7-12.0 [facility] Comment on above: Performed By: #### C BC ####[facility] [address] [place] [address]Dr. Tami Merrill NEUT # 5.5 103/ul Normal 1.4-6.5 [facility] Comment on above: Performed By: #### C BC ####[facility] [address] [place] [address]Dr. Tami Garfield Neutrophils/100 WBC (Bld) 68.5 % Normal 43.0-75.0 [facility] Comment on above: Performed By: #### C BC ####[facility] [address] [place] [address]Dr. Tami Garfield Platelet mean volume (Bld) [Entitic vol] 9.6 fL Normal 9.5-13.5 [facility] Comment on above: Performed By: #### C BC ####[facility] [address] [place] [address]Dr. Tami Garfield PLT 150 103/ul Normal 150-450 [facility] Comment on above: Performed By: #### C BC ####[facility] [address] [place] [address]Dr. Tami Garfield RBC 5.07 106/ul Normal 4.70-6.10 [facility] Comment on above: Performed By: #### C BC ####[facility] [address] [place] [address]Dr. Tami Merrill WBC 8.1 103/ul Normal 4.0-11.0 [facility] Comment on above: Performed By: #### C BC ####[facility] [address] [place] [address] T[address] CT ABD/PELVIS WO CONon 09-12 [...] POPPY WINTER Date: 2022-09-12 07:27 Normal [facility] ER URINE PROFILEon 3 Bilirubin Ql (U) Negative Normal NEGATIVE [facility] Comment on above: Performed By: #### U MICRO, ERUR ####[facility] [address] [place], [place] [address]Dr. Tami Merrill Clarity (U) CLEAR Normal CLEAR [facility] Comment on above: Performed By: #### U MICRO, ERUR ####[facility] [address] [place] [address]Dr. Tami Merrill Color (U) LT. YELLOW Normal YELLOW [facility] Comment on above: Performed By: #### U MICRO, ERUR ####[facility] [address] [place] [address]Dr. Tami Merrill ERUAHD A micrscopic examination will be performed if indicated. Normal [facility] Comment on above: Performed By: #### U MICRO, ERUR ####[facility] [address] [place] [address]Dr. Tami Merrill Glucose Ql (U) 1000 mg/dl Abnormal NEGATIVE [facility] Comment on above: Performed By: #### U MICRO, ERUR ####[facility] [address] [place], [place] [address]Dr. Tami Merrill Hemoglobin Ql (U) TRACE-INTACT Abnormal NEGATIVE [facility] Comment on above: Performed By: #### U MICRO, ERUR ####[facility] [address] [place], [place] [address]Dr. Tami Merrill Ketones Ql (U) Negative Normal NEGATIVE [facility] Comment on above: Performed By: #### U MICRO, ERUR ####[facility] [address] [place], [place] [address]Dr. Tami Merrill LEUKOCYTES Negative Normal NEGATIVE [facility] Comment on above: Performed By: #### U MICRO, ERUR ####[facility] [address] [place], [place] [address]Dr. Tami Merrill Nitrite Ql (U) Negative Normal NEGATIVE [facility] Comment on above: Performed By: #### U MICRO, ERUR ####[facility] [address] [place], [place] [address]Dr. Tami Merrill pH (U) 5.0 [pH] Normal 5-9 [facility] Comment on above: Performed By: #### U MICRO, ERUR ####[facility] [address] [place], [place] [address]Dr. Tami Merrill Protein (U) [Mass/Vol] 30 mg/dL Abnormal NEGAT MIKE/ TRACE [facility] Comment on above: Performed By: #### U MICRO, ERUR ####[facility] [address] [place], [place] [address]Dr. Tami Merrill SPEC GRAVITY 1.020 Normal 1.005-<=1.02 5 [facility] Comment on above: Performed By: #### U MICRO, ERUR ####[facility] [address] [address] [place], [place] [address]Dr. Tami Merrill UR MICRO IND INDICATED Normal [facility] Comment on above: Performed By: #### U MICRO, ERUR ####[facility] H[address]seyyed[address] [place], [place] [address]Dr. Tami Merrill Urobilinogen Qn (U) 0.2 {Angela'U}/dL Normal 0.2 - 1. 0 [facility] Comment on above: Performed By: #### U MICRO, ERUR ####[facility] Qvetydaiis[address] [place], [place] [address]Dr. Tami Merrill GI PANEL (PCR)on 09-12-2022 Adenovirus F 40/41 Not detected Normal NOT DETECTED [facility] Comment on above: Performed By: #### G IPANEL ####[facility] Jfzkosribb[address] [place], [place] [address]Dr. Tami Merrill Astrovirus Not detected Normal NOT DETECTED The [facility] Comment on above: Performed By: #### G IPANEL ####[facility] Ehyvaalfyy[address] [place], [place] [address]Dr. Tami Merrill C. Diff toxin A/B Not detected Normal NOT DETECTED [facility] Comment on above: Performed By: #### G IPANEL ####[facility] Zryuxzerst[address] [place], [place] [address]Dr. Tami Merrill Campylobacter Not detected Normal NOT DETECTED The [facility] Comment on above: Performed By: #### G IPANEL ####[facility] Bfendsvmwz[address] [place], [place] [address]Dr. Tami Merrill Cryptosporidium Not detected Normal NOT DETECTED The [facility] Comment on above: Performed By: #### G IPANEL ####[facility] Yibqazcpnn[address] [place], [place] [address]Dr. Tami Merrill Cyclos. Cayetanensis Not detected Normal NOT DETECTED [facility] Comment on above: Performed By: #### G IPANEL ####[facility] Uhejanvvzk[address] [place], [place] [address]Dr. Tami Merrill E. Coli O157 Not Applicable Normal Not Applicable [facility] Comment on above: Performed By: #### G IPANEL ####[facility] Tcsxvkdvkk[address] [place], [place] [address]Dr. Tami Merrill E. histolytica Not detected Normal NOT DETECTED The [facility] Comment on above: Performed By: #### G IPANEL ####[facility] Tgkwzdztpt[address] [place], [place] [address]Dr. Tami Merrill EAEC Not detected Normal NOT DETECTED The [facility] Comment on above: Performed By: #### G IPANEL ####[facility] Ifcfpjbnha66[address] [place], [place] [address]Dr. Tami Merrill EIEC Not detected Normal NOT DETECTED The [facility] Comment on above: Performed By: #### G IPANEL ####[facility] Anhzciwjuf2[address] [place], [place] [address]Dr. Tami Merrill EPEC Not detected Normal NOT DETECTED The [facility] Comment on above: Performed By: #### G IPANEL ####[facility] Aiawahfwjs44[address] [place], [place] [address]Dr. Tami Merrill ETEC Not detected Normal NOT DETECTED The [facility] Comment on above: Performed By: #### G IPANEL ####[facility] Arhcuasbue8[address] [place], [place] [address]Dr. Tami Merrill G. Lamblia Not detected Normal NOT DETECTED The [facility] Comment on above: Performed By: #### G IPANEL ####[facility] Ewfpxmszko28[address] [place], [place] [address]Dr. Tami Merrill GIPANEL CONTROLS PASSED Normal The [facility] Comment on above: Performed By: #### G IPANEL ####[facility] Zxooetpaaa4[address] [place], [place] [address]Dr. Tami ALBARADONL JAGUAR HEADER GI PANEL BACTERIA Normal T [facility] Comment on above: Performed By: #### G IPANEL ####[facility] Abanyiwjrl36[address] [place], [place] [address]Dr. Tami ALBARADONLHD ECOLI GI PANEL DIARRHEAGENIC E.COLI / SHIGELLA Normal [facility] Comment on above: Performed By: #### G IPANEL ####[facility] Tlkhymfmrr7[address] [place], [place] [address]Dr. Yilan Merrill GIPNLHD INFO SEE BELOW Normal [facility] Comment on above: Result Comment: EAEC - Enteroaggregative E. Coli EPEC- Enteropathogenic E. Coli ETEC- Enterotoxigenic E. Coli lt/st STEC- Shigella-like toxin-producing E. Coli stx1/stx2 EIEC- Shigella/Enteroinvasive E. Coli Performed By: #### G IPANEL ####[facility] [address] [place] [address]Dr. Tami Merrill GIPNLHD PARASITES GI PANEL PARASITES Normal [facility] Comment on above: Performed By: #### G IPANEL ####[facility] [address]zkesckhf[address] [place] [address]Dr. Tami Merrill GIPHD VIRUS GI PANEL VIRUSES Normal The [facility] Comment on above: Performed By: #### G IPANEL ####[facility] Jnqniljvdo[address] [place], [place] [address]Dr. Tami Merrill Norovirus GI/GII Not detected Normal NOT DETECTED [facility] Comment on above: Performed By: #### G IPANEL ####[facility] Akxigoyshr[address] [place], [place] [address]Dr. Tami Merrill P. Shigelloides Not detected Normal NOT DETECTED The [facility] Comment on above: Performed By: #### G IPANEL ####[facility] Rgxgvwdvwy[address] [place], [place] [address]Dr. Brittaniac Merrill Rotavirus A Not detected Normal NOT DETECTED The [facility] Comment on above: Performed By: #### G IPANEL ####[facility] Fltysejxia[address] [place], [place] [address]Dr. Tami Merrill Salmonella Not detected Normal NOT DETECTED The [facility] Comment on above: Performed By: #### G IPANEL ####[facility] Lizxsorezs50[address] [place], [place] [address]Dr. Tami Merrill Sapovirus Not detected Normal NOT DETECTED The [facility] Comment on above: Performed By: #### G IPANEL ####[facility] Calhpplfqg7[address] [place], [place] [address]Dr. Tami Merrill STEC Not detected Normal NOT DETECTED The [facility] Comment on above: Performed By: #### G IPANEL ####[facility] Mg[address]ql[address] [place] [address]Dr. Tami Merrill Vibrio Not detected Normal NOT DETECTED The [facility] Comment on above: Performed By: #### G IPANEL ####[facility] W[address]ltuco[address] [place] [address]Dr. Tami Merrill Vibrio Cholera Not detected Normal NOT DETECTED The [facility] Comment on above: Performed By: #### G IPANEL ####[facility] Pyujclkqnp[address] [place] [address]Dr. Tami Merrill Y. Enterocolitica Not detected Normal NOT DETECTED [facility] Comment on above: Performed By: #### G IPANEL ####[facility] Uqrtrtrrzu[address] [place] [address]Dr. Tami Merrill LACTATE/LACTIC ACIDon 2022 Lactate [Moles/Vol] 0.7 mmol/L Normal 0.4-2.0 [facility] Comment on above: Performed By: #### L ACT ####[facility] Jjyufnupty[address] [place], [place] [address]Dr. Tami Merrill LIPASEon 09-12-2022 Lipase [Catalytic activity/Vol] 270.0 U/L Normal 73.0-393.0 [facility] Comment on above: Performed By: #### A MY, CMP, LIPA #### [facility] [address] [address] [address] Tami Merrill PROF 14(COMP METB)on 023 Albumin [Mass/Vol] 3.9 g/dL Normal 3.4-5.0 The [facility] Comment on above: Performed By: #### A MY, CMP, LIPA ####[facility] Hambykviol[address] [place] [address]DrFlorentin Merrill Albumin/Globulin [Mass ratio] 1.0 {ratio} Normal [facility] Comment on above: Performed By: #### A MY, CMP, LIPA ####[facility] Fhmcpghyym[address] [place], [place] [address]Dr. Tami Merrill ALP [Catalytic activity/Vol] 52 U/L Normal 46-116 [facility] Comment on above: Performed By: #### A MY, CMP, LIPA ####[facility] [address]tw[address]zrj[address] [place] [address]Dr. Tami Merrill ALT [Catalytic activity/Vol] 24 U/L Normal 16-63 [facility] Comment on above: Performed By: #### A MY, CMP, LIPA ####[facility] Cbdmodqevi[address] [place] [address]Dr. Tami Merrill Anion gap [Moles/Vol] 14.0 mmol/L Normal [facility] Comment on above: Performed By: #### A MY, CMP, LIPA ####[facility] Uk[address]iala[address] [place] [address]Dr. Tami Merrill AST [Catalytic activity/Vol] 14 U/L Critically low 15-37 [facility] Comment on above: Performed By: #### A MY, CMP, LIPA ####[facility] Solvmrauno[address] [place] [address]Dr. Tami Merrill Bilirubin [Mass/Vol] 0.3 mg/dL Normal 0.2-1.0 [facility] Comment on above: Performed By: #### A MY, CMP, LIPA ####[facility] [address]hcwhm[address] [place] [address]Dr. Tami Merrill Calcium [Mass/Vol] 9.1 mg/dL Normal 8.5-10.1 [facility] Comment on above: Performed By: #### A MY, CMP, LIPA ####[facility] I[address]gb[address]xcg[address] [place] [address]Dr. Tami Merrill Chloride [Moles/Vol] 107 mmol/L Normal 98-107 [facility] Comment on above: Performed By: #### A MY, CMP, LIPA ####[facility] Xqsasscxmh[address] [place] [address]Dr. Tami Merrill CO2 [Moles/Vol] 24.5 mmol/L Normal 21.0-32.0 The [facility] Comment on above: Performed By: #### A MY, CMP, LIPA ####[facility] [address]qszojl[address] [place] [address]Dr. Tami Merrill Creatinine [Mass/Vol] 2.42 mg/dL Critically high 0.70-1.30 [facility] Comment on above: Performed By: #### A MY, CMP, LIPA ####[facility] [address]tuw[address] [place] [address]Dr. Tami Merrill EGFR-AF GRENADIAN 32 mL/min/1.73m2 Critically low >=60 [facility] Comment on above: Performed By: #### A MY, CMP, LIPA ####[facility] Oodzruqjja[address] [place], [place] [address]Dr. Tami Merrill EGFR-NON AF GRENADIAN 27 mL/min/1.73m2 Critically low >=60 [facility] Comment on above: Performed By: #### A MY, CMP, LIPA ####[facility] Jritofxwis3[address] [place], [place] [address]Dr. Tami Merrill Globulin (S) [Mass/Vol] 3.9 g/dL Normal [facility] Comment on above: Performed By: #### A MY, CMP, LIPA ####[facility] Nvclndamyj[address] [place], [place] [address]Dr. Tami Merrill Glucose [Mass/Vol] 107 mg/dL Critically high 74-106 [facility] Comment on above: Performed By: #### A MY, CMP, LIPA ####[facility] Sqpspkrnov[address] [place], [place] [address]Dr. Tami Merrill Potassium [Moles/Vol] 3.6 mmol/L Normal 3.5-5.1 [facility] Comment on above: Performed By: #### A MY, CMP, LIPA ####[facility] [address]johmfunpl[address] [place], [place] [address]Dr. Tami Merrill Protein [Mass/Vol] 7.8 g/dL Normal 6.4-8.2 [facility] Comment on above: Performed By: #### A MY, CMP, LIPA ####[facility] Iwhhzzpztn[address] [place], [place] [address]Dr. Tami Merrill Sodium [Moles/Vol] 142 mmol/L Normal 136-145 [facility] Comment on above: Performed By: #### A ISAIAS MASON, LIPA ####[facility] [address]fs[address] [place] [address]Dr. Tami Merrill Urea nitrogen [Mass/Vol] 38.0 mg/dL Critically high 7.0-18.0 [facility] Comment on above: Performed By: #### A MARLON CMP, LIPA ####[facility] Rspzpicgab[address] [place] [address]Dr. Tami Merrill Urea nitrogen/Creatinine [Mass ratio] 15.7 mg/mg Normal [facility] Comment on above: Performed By: #### A ISAIAS MASON, LIPA ####[facility] [address]rxp[address] [place] [address]Dr. Tami Garfield URINE MICROSCOPIC ONLYon BACTERIA NONE SEEN Normal NONE SEEN [facility] Comment on above: Performed By: #### U MICRO, ERUR ####[facility] [address] [place] [address]Dr. Tami Garfield Bacteria identified Cx Nom (U) NOT INDICATED Normal [facility] Comment on above: Performed By: #### U MICRO, ERUR ####[facility] [address]fbwpe[address] [place] [address]Dr. Tami Garfield CAST NONE SEEN Normal NONE SEEN [facility] Comment on above: Performed By: #### U MICRO, ERUR ####[facility] En[address]lq[address]fz[address] [place] [address]Dr. Tami Merrill Crystals LM Nom (Urine sed) NONE SEEN Normal NONE SEEN [facility] Comment on above: Performed By: #### U MICRO, ERUR ####[facility] [address] [place] [address]Dr. Tami Merrill Epithelial cells LM Ql (Urine sed) NONE SEEN Normal NONE SEEN /RARE [facility] Comment on above: Performed By: #### U MICRO, ERUR ####[facility] X[address]wic[address] [place] [address]Dr. Yilan Merrill MUCOUS NONE SEEN Normal NONE SEEN [facility] Comment on above: Performed By: #### U MICRO, ERUR ####[facility] [address] [place] [address]DrFlorentin Merrill RBC 0-2 Normal 0-2 [facility] Comment on above: Performed By: #### U MICRO, ERUR ####[facility] [address] [place] [address]DrFlorentin Merrill WBC NONE SEEN Normal NONE SEEN [facility] Comment on above: Performed By: #### U MICRO, ERUR ####[facility] [address] [place] [id number]. Tami Merrill METHYLMALONIC ACID (MMA)on 0 09-01-2022 Methylmalonic Acid, Serum 240 nmol/L Normal 0-378 [facility] Comment on above: Performed By: #### B JESUSITA, HSTROPN #### [facility] [address] [address] [address] Tami Merrill HOMOCYSTEINEon 08-28-2022 Homocyst(e)ine, Plasma 18.8 umol/L Critically high 0.0-17. 2 [facility] Comment on above: Performed By: #### Baron MC, HSTROPN #### [facility] [address] [address] [address] Tami Merrill VIT B12 AND FOLATEon 023 Cobalamin (Vitamin B12) [Mass/Vol] 466.0 pg/mL Normal 193.0-986.0 [facility] Comment on above: Performed By: #### B JESUSITA, HSTROPN #### [facility] [address] [address] [address] Tami Merrill FOLATE 12.70 ng/mL Normal 8.60-58.90 [facility] Comment on above: Performed By: #### Baron MC, HSTROPN #### [facility] [address] [place] [address] Dr. Tami Merrill MRI FOOT RT WO [...] age appropriate. At the edge of the rffes-yl-nxfh on the sagittal images there is evidence [...] cm. 2. At the edge of the ugzcy-rt-gppf there is evidence of a probable 1.2 cm osteochondral defect of the medial talar dome with a moderate amount of underlying bone marrow edema. The entirety of this finding is not included in the uuzsv-nj-cmrw. If it will change clinical management, an MRI of the ankle could be obtained for further evaluation. Electronically authenticated by: GHULAM LATIF Date: 2022-07-07 08:20 Normal [facility] PROF CHEM 8 (BAS METB)on Anion gap [Moles/Vol] 12.0 mmol/L Normal [facility] Comment on above: Performed By: #### B AUGUSTINA MCN #### [facility] [address] [place] [address] Dr. Tami Merrill Calcium [Mass/Vol] 8.9 mg/dL Normal 8.5-10.1 [facility] Comment on above: Performed By: #### B AUGUSTINA MCN #### [facility] [address] [address] [address] Tami Merrill Chloride [Moles/Vol] 103 mmol/L Normal 98-107 [facility] Comment on above: Performed By: #### B MP, HSTROPN #### [facility] [address] [address] [address] Tami Merrill CO2 [Moles/Vol] 28.4 mmol/L Normal 21.0-32.0 [facility] Comment on above: Performed By: #### B MP, HSTROPN #### [facility] [address] [address] [address] Tami Merrill Creatinine [Mass/Vol] 1.95 mg/dL Critically high 0.70-1.30 [facility] Comment on above: Performed By: #### B MP, HSTROPN #### [facility] [address] [address] [address] Tami Merrill EGFR-AF GRENADIAN 42 mL/min/1.73m2 Critically low >=60 [facility] Comment on above: Performed By: #### B MP, HSTROPN #### [facility] [address] [address] [address] Tami Merrill EGFR-NON AF GRENADIAN 34 mL/min/1.73m2 Critically low >=60 [facility] Comment on above: Performed By: #### B MP, HSTROPN #### [facility] [address] [address] [address] Tami Merrill Glucose [Mass/Vol] 127 mg/dL Critically high 74-106 [facility] Comment on above: Performed By: #### B MP, HSTROPN #### [facility] [address] [address] [address] Tami Merrill Potassium [Moles/Vol] 4.4 mmol/L Normal 3.5-5.1 [facility] Comment on above: Performed By: #### B MP, HSTROPN #### [facility] [address] [address] [address] Tami Merrill Sodium [Moles/Vol] 139 mmol/L Normal 136-145 [facility] Comment on above: Performed By: #### B JESUSITA HSTROPN #### [facility] [address] [address] [address] Tami Merrill Urea nitrogen [Mass/Vol] 33.0 mg/dL Critically high 7.0-18.0 [facility] Comment on above: Performed By: #### B JESUSITA HSTROPN #### [facility] [address] [address] [address] Tami Merrill Urea nitrogen/Creatinine [Mass ratio] 16.9 mg/mg Normal [facility] Comment on above: Performed By: #### B JESUSITA HSTROPN #### [facility] [address] [address] [address] Tami Merrill Consultation Noteon 04-15-20 Consultation Note [id number] #1.00CD:127 Normal [facility] ED Note-Physicianon 04-15-20 ED Note-Physician [id number] #1.00CD:127 Normal [facility] ED Note-Physician [id number] #1.00CD:127 Normal [facility] Lab Reportson 04-15-2022 Lab Reports [id number] #1.00CD:127 Normal [facility] Lab Reports [id number] #1.00CD:127 Normal [facility] Lab Reports [id number] #1.00CD:127 Normal [facility] RAD - CT Reporton 04-15-[address]22 RAD - CT Report [id number] #1.00CD:127 Normal [facility] RAD - CT Report [id number] #1.00CD:127 Normal [facility] RAD - Ultrasound Reporton RAD - Ultrasound Report [id number] [id number] #1.00CD:127 Normal [facility] RAD - Ultrasound Report [id number] [id number] #1.00CD:127 Normal [facility] Screenson 04-15-2022 Screens [id number] #1.00CD:127 Normal [facility] Ambulatory Visit Summaryon 1 06-15-2021 Ambulatory Visit Summary MAURY ISSA :1950 Visit Date:04/14/2022 Ambulatory Visit Instructions Your Diagnosis BPH with urinary obstruction Elevated PSA Bilateral varicoceles Renal cyst Tests Performed Urnls Dip Stick Auto w/o Microscopy POC 87806 US Renal -- Results Pending -- Please [...] MD, Maury Albarran Where: [facility] Jimmy Normal [facility] Urology Office/Clinic Noteon 04-14-2022 Urology Office/Clinic Note Chief Complaint testicular pain and left lower abd pain (now resolved) HPI Staff Pt here today for recent testicular pain and left lower abd pain (now resolved). Had been evaluated at [facility] and by PCP. Was Tx'd w/ [...] 121 02/15/22. Proteinuria discussed w/ Pt. 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 Honeycutt, [facility]). CT abd/pelvis W/O contrast 02/14/22: No [...] records from PCP. Pt reportedly went to [facility] ER and PCP for eval of his c (more content not included)... Normal [facility] Comment on above: Result Comment: Elec tronically [...] F Trimethoprim/Sulfame thoxazole <=20 S F Normal [facility] Comment on above: Performed By: #### U RCX ####[facility] [address] [place] [address]Dr. Tami Merrill CBC AUTO DIFFon 02-15-2022 BASO # 0.0 103/ul Normal 0.0-0.1 [facility] Comment on above: Performed By: #### C BC ####[facility] [address]tzbsp[address]ne[address] [place], [place] [address]Dr. Tami Merrill Basophils/100 WBC (Bld) 0.3 % Normal 0.2-2.0 [facility] Comment on above: Performed By: #### C BC ####[facility] Hujxnjpahm[address] [place], [place] [address]Dr. Tami Merrill EO # 0.2 103/ul Normal 0.0-0.7 [facility] Comment on above: Performed By: #### C BC ####[facility] L[address]xvck[address]xt[address] [place], [place] [address]Dr. Tami Merrill Eosinophils/100 WBC (Bld) 1.6 % Normal 0.9-7.0 [facility] Comment on above: Performed By: #### C BC ####[facility] [address]gsqtvot[address] [place], [place] [address]Dr. Tami Merrill Erythrocyte distribution width (RBC) [Ratio] 13.9 % Normal 11.0-15.0 [facility] Comment on above: Performed By: #### C BC ####[facility] Lisibleysy[address] [place], [place] [address]Dr. Tami Merrill Hematocrit (Bld) [Volume fraction] 37.9 % Critically low 42.0-54.0 [facility] Comment on above: Performed By: #### C BC ####[facility] Exqvzfqwyr[address] [place], [place] [address]Dr. Tami Merrill Hemoglobin (Bld) [Mass/Vol] 12.1 g/dL Critically low 14.0-18.0 [facility] Comment on above: Performed By: #### C BC ####[facility] [address]kgbzehsxf[address] [place], [place] [address]Dr. Brittaniac Merrill IG # 0.05 10e3/ul Critically high 0.00-0.03 [facility] Comment on above: Performed By: #### C BC ####[facility] [address]cor[address] [place] [id number]. Brittaniac Merrill IG % 0.4 % Normal 0.0-0.5 [facility] Comment on above: Performed By: #### C BC ####[facility] Xxrzeve[address]ik[address] [place] [address]Dr. Tami Garfield LYMPH # 1.6 103/ul Normal 1.2-3.8 [facility] Comment on above: Performed By: #### C BC ####[facility] [address]xs[address] [place] [address]Dr. Brittaniac Merrill Lymphocytes/100 WBC (Bld) 14.3 % Critically low 20.5-60.0 [facility] Comment on above: Performed By: #### C BC ####[facility] [address]uqvay[address] [place] [address]Dr. Tami Merrill MANUAL DIFF REQ NO Normal [facility] Comment on above: Performed By: #### C BC ####[facility] Xvvpsyrent[address] [address]Dr. Tami Garfield MCH (RBC) [Entitic mass] 26.7 pg Normal 25.9-34.0 [facility] Comment on above: Performed By: #### C BC ####[facility] Xrybwimpng[address] [place] [address]Dr. Tami Merrill MCHC (RBC) [Mass/Vol] 31.9 g/dL Normal 29.9-35.2 [facility] Comment on above: Performed By: #### C BC ####[facility] [address]oo[address] [place] [address]Dr. Brittaniac Garfield MCV (RBC) [Entitic vol] 83.7 fL Normal 80.0-94.0 [facility] Comment on above: Performed By: #### C BC ####[facility] [address]ob[address] [place] [address]Dr. Tami Merrill MONO # 1.1 103/ul Critically high 0.3-0.8 [facility] Comment on above: Performed By: #### C BC ####[facility] [address]xm[address] [place] [address]Dr. Tami Merrill Monocytes/100 WBC (Bld) 9.5 % Normal 1.7-12.0 [facility] Comment on above: Performed By: #### C BC ####[facility] Box[address]ulfm[address] [place] [address]Dr. Tami Merrill NEUT # 8.5 103/ul Critically high 1.4-6.5 [facility] Comment on above: Performed By: #### C BC ####[facility] Nxy[address]jwbt[address] [place] [address]Dr. Tami Merrill Neutrophils/100 WBC (Bld) 73.9 % Normal 43.0-75.0 [facility] Comment on above: Performed By: #### C BC ####[facility] Fen[address]bjic[address] [place] [address]Dr. Tami Merrill Platelet mean volume (Bld) [Entitic vol] 10.3 fL Normal 9.5-13.5 [facility] Comment on above: Performed By: #### C BC ####[facility] [address]iceirl[address] [place] [address]Dr. Tami Merrill PLT 137 103/ul Critically low 150-450 [facility] Comment on above: Performed By: #### C BC ####[facility] [address]fu[address] [place], [place] [address]Dr. Tami Merrill RBC 4.53 106/ul Critically low 4.70-6.10 [facility] [facility] Comment on above: Performed By: #### C BC ####[facility] [address] [id number]. Tami Merrill WBC 11.5 103/ul Critically high 4.0-11.0 [facility] Comment on above: Performed By: #### C BC ####[facility] [address] [place], [place] [address]Dr. Tami Merrill CULTURE URINEon 02-15-2022 CULTURE URINE Culture Observations: NO GROWTH. Normal [facility] Comment on above: Performed By: #### U RCX ####[facility] [id number] [place], [place] [id number]. Tami Merrill POINT OF CARE GLUCOSEon 02-06 Glucose [Mass/Vol] 135 mg/dL Critically high 74-106 [facility] Comment on above: Performed By: #### B JESUSITA, HSTROPN #### [facility] [address] [address] [address] Tami Merrill Glucose [Mass/Vol] 133 mg/dL Critically high 74-106 [facility] Comment on above: Performed By: #### P OCGLUC #### [facility] [address] [address] [address] Tami Merrill PROF 14(COMP METB)on 022 Albumin [Mass/Vol] 3.4 g/dL Normal 3.4-5.0 [facility] Comment on above: Performed By: #### B JESUSITA, HSTROPN #### [facility] [address] [address] [address] Tami Merrill Albumin/Globulin [Mass ratio] 1.0 {ratio} Normal [facility] Comment on above: Performed By: #### B JESUSITA, HSTROPN #### [facility] [address] [address] [address] Tami Merrill ALP [Catalytic activity/Vol] 40 U/L Critically low 46-116 [facility] Comment on above: Performed By: #### B JESUSITA, HSTROPN #### [facility] [address] [address] [address] Tami Merrill ALT [Catalytic activity/Vol] 21 U/L Normal 16-63 [facility] Comment on above: Performed By: #### B JESUSITA, HSTROPN #### [facility] [address] [address] [address] Tami Merrill Anion gap [Moles/Vol] 10.7 mmol/L Normal [facility] Comment on above: Performed By: #### B JESUSITA, HSTROPN #### [facility] [address] [address] [address] Tami Merrill AST [Catalytic activity/Vol] 12 U/L Critically low 15-37 [facility] Comment on above: Performed By: #### B MP, HSTROPN #### [facility] [address] [place] [address] Dr. Tami Merrill Bilirubin [Mass/Vol] 0.5 mg/dL Normal 0.2-1.0 [facility] Comment on above: Performed By: #### B MP, HSTROPN #### [facility] [address] [place] [address] Dr. Tami Merrill Calcium [Mass/Vol] 8.3 mg/dL Critically low 8.5-10.1 [facility] Comment on above: Performed By: #### B MP, HSTROPN #### [facility] [address] [place] [address] Dr. Tami Merrill Chloride [Moles/Vol] 103 mmol/L Normal 98-107 [facility] Comment on above: Performed By: #### B JESUSITA, HSTROPN #### [facility] [address] [place] [address] Dr. Tami Merrill CO2 [Moles/Vol] 29.1 mmol/L Normal 21.0-32.0 [facility] Comment on above: Performed By: #### B JESUSITA, HSTROPN #### [facility] [address] [place] [address] Dr. Tami Merrill Creatinine [Mass/Vol] 1.99 mg/dL Critically high 0.70-1.30 [facility] Comment on above: Performed By: #### B MP, HSTROPN #### [facility] [address] [place] [address] Dr. Tami Merrill EGFR-AF GRENADIAN 41 mL/min/1.73m2 Critically low >=60 [facility] Comment on above: Performed By: #### B MP, HSTROPN #### [facility] [address] [place] [address] Dr. Tami Merrill EGFR-NON AF GRENADIAN 33 mL/min/1.73m2 Critically low >=60 [facility] Comment on above: Performed By: #### B MP, HSTROPN #### [facility] [address] [address] [address] Tami Merrill Globulin (S) [Mass/Vol] 3.3 g/dL Normal [facility] Comment on above: Performed By: #### B MP, HSTROPN #### [facility] [address] [address] [address] Tami Merrill Glucose [Mass/Vol] 121 mg/dL Critically high 74-106 [facility] Comment on above: Performed By: #### B MP, HSTROPN #### [facility] [address] [address] [address] Tami Merrill Potassium [Moles/Vol] 3.8 mmol/L Normal 3.5-5.1 [facility] Comment on above: Performed By: #### B MP, HSTROPN #### [facility] [address] [place] [address] Dr. Tami Merrill Protein [Mass/Vol] 6.7 g/dL Normal 6.4-8.2 [facility] Comment on above: Performed By: #### B MP, HSTROPN #### [facility] [address] [address] [address] Tami Merrill Sodium [Moles/Vol] 139 mmol/L Normal 136-145 [facility] Comment on above: Performed By: #### B MP, HSTROPN #### [facility] [address] [address] [address] Tami Merrill Urea nitrogen [Mass/Vol] 39.0 mg/dL Critically high 7.0-18.0 [facility] Comment on above: Performed By: #### B MP, HSTROPN #### [facility] [address] [address] [address] Tami Merrill Urea nitrogen/Creatinine [Mass ratio] 19.6 mg/mg Normal [facility] Comment on above: Performed By: #### B MP, HSTROPN #### [facility] [address] [address] [address] Tami Merrill SED RATE [facility] 2021 SED RATE 17 mm/hr Normal <=20 [facility] Comment on above: Performed By: #### B MP, HSTROPN #### [facility] [address] [address] [address] Tami Merrill CBC AUTO DIFFon 02-14-2022 BASO # 0.0 103/ul Normal 0.0-0.1 [facility] Comment on above: Performed By: #### C BC ####[facility] [address] [address]DrFlorentin Merrill Basophils/100 WBC (Bld) 0.3 % Normal 0.2-2.0 [facility] Comment on above: Performed By: #### C BC ####[facility] [address] [place], [place] [address]Dr. Tami Merrill EO # 0.2 103/ul Normal 0.0-0.7 [facility] Comment on above: Performed By: #### C BC ####[facility] [address] [place], [place] [address]Dr. Tami Merrill Eosinophils/100 WBC (Bld) 1.4 % Normal 0.9-7.0 [facility] Comment on above: Performed By: #### C BC ####[facility] [address] [place], [place] [address]Dr. Tami Merrill Erythrocyte distribution width (RBC) [Ratio] 13.8 % Normal 11.0-15.0 [facility] Comment on above: Performed By: #### C BC ####[facility] [address] [place], [place] [address]DrFlorentin Merrill Hematocrit (Bld) [Volume fraction] 40.4 % Critically low 42.0-54.0 [facility] Comment on above: Performed By: #### C BC ####[facility] [address] [place], [place] [address]DrFlorentin Merrill Hemoglobin (Bld) [Mass/Vol] 13.4 g/dL Critically low 14.0-18.0 [facility] Comment on above: Performed By: #### C BC ####[facility] [address] [address]Dr. Tami Merrill IG # 0.06 10e3/ul Critically high 0.00-0.03 [facility] Comment on above: Performed By: #### C BC ####[facility] [address] [address]Dr. Tami Garfield IG % 0.5 % Normal 0.0-0.5 [facility] Comment on above: Performed By: #### C BC ####[facility] [address] [place], [place] [address]Dr. Brittaniac Garfield LYMPH # 1.5 103/ul Normal 1.2-3.8 [facility] Comment on above: Performed By: #### C BC ####[facility] [address] [place], [place] [address]Dr. Tami Garfield Lymphocytes/100 WBC (Bld) 12.6 % Critically low 20.5-60.0 [facility] Comment on above: Performed By: #### C BC ####[facility] [address] [place], [place] [address]DrFlorentin Brittaniac Merrill MANUAL DIFF REQ NO Normal [facility] Comment on above: Performed By: #### C BC ####[facility] [address] [place], [place] [address]Dr. Tami Merrill MCH (RBC) [Entitic mass] 27.1 pg Normal 25.9-34.0 [facility] Comment on above: Performed By: #### C BC ####[facility] [address] [place], [place] [address]DrFlorentin Tami Garfield MCHC (RBC) [Mass/Vol] 33.2 g/dL Normal 29.9-35.2 [facility] Comment on above: Performed By: #### C BC ####[facility] [address] [place], [place] [address]DrFlorentin Tami Garfield MCV (RBC) [Entitic vol] 81.8 fL Normal 80.0-94.0 [facility] Comment on above: Performed By: #### C BC ####[facility] [address] [place], [place] [address]Dr. Tami Merrill MONO # 0.9 103/ul Critically high 0.3-0.8 [facility] Comment on above: Performed By: #### C BC ####[facility] [address] [id number]. Tami Merrill Monocytes/100 WBC (Bld) 7.7 % Normal 1.7-12.0 [facility] Comment on above: Performed By: #### C BC ####[facility] [address] [address]Dr. Tami Merrill NEUT # 9.2 103/ul Critically high 1.4-6.5 [facility] Comment on above: Performed By: #### C BC ####[facility] [address] [address]Dr. Tami Merrill Neutrophils/100 WBC (Bld) 77.5 % Critically high 43.0-75.0 [facility] Comment on above: Performed By: #### C BC ####[facility] [address] [address]Dr. Tami Merrill Platelet mean volume (Bld) [Entitic vol] 10.0 fL Normal 9.5-13.5 [facility] Comment on above: Performed By: #### C BC ####[facility] [address] [address]Dr. Tami Merrill PLT 176 103/ul Normal 150-450 [facility] Comment on above: Performed By: #### C BC ####[facility] [address] [address]Dr. Tami Merrill RBC 4.94 106/ul Normal 4.70-6.10 [facility] Comment on above: Performed By: #### C BC ####[facility] [address] [id number]. Tami Merrill WBC 11.9 103/ul Critically high 4.0-11.0 [facility] Comment on above: Performed By: #### C BC ####[facility] [address] [address] CT ABD/PELVIS WO CONon 02-14 CT [...] JUAREZ KERR Date: 2022-02-14 21:26 Normal [facility] Covid-19 PCR ([facility])on SARS-CoV-2 (COVID-19) RNA GALLO+probe Ql (Unsp spec) Not detected Normal NOT DETECTED [facility] Comment on above: Result Comment: When [...] for this test is supported by the [employer] and Human Service's declaration that [...] Performed By: #### B JESUSITA, HSTROPN #### [facility] [address] [place] [address] Dr. Tami Merrill ER URINE PROFILEon 2 Bilirubin Ql (U) Negative Normal NEGATIVE [facility] Comment on above: Performed By: #### B JESUSITA, HSTROPN #### [facility] [address] [place] [address] Dr. Tami Merrill Clarity (U) CLEAR Normal CLEAR [facility] Comment on above: Performed By: #### B JESUSITA, HSTROPN #### [facility] [address] [place] [address] Dr. Tami Merrill Color (U) LT. YELLOW Normal YELLOW [facility] Comment on above: Performed By: #### B JESUSITA, HSTROPN #### [facility] [address] [place] [address] Dr. Tami COOPER A micrscopic examination will be performed if indicated. Normal [facility] Comment on above: Performed By: #### B JESUSITA, HSTROPN #### [facility] [address] [place] [address] Dr. Tami Merrill Glucose Ql (U) >1000 Abnormal NEGATIVE [facility] Comment on above: Performed By: #### B JESUSITA, HSTROPN #### [facility] [address] [place] [address] Dr. Tami Merrill Hemoglobin Ql (U) TRACE-INTACT Abnormal NEGATIVE [facility] Comment on above: Performed By: #### B JESUSITA, HSTROPN #### [facility] [address] [place] [address] Dr. Tami Merrill Ketones Ql (U) Negative Normal NEGATIVE [facility] Comment on above: Performed By: #### B JESUSITA, HSTROPN #### [facility] [address] [place] [address] Dr. Tami Merrill LEUKOCYTES TRACE Abnormal NEGATIVE [facility] Comment on above: Performed By: #### B JESUSITA, HSTROPN #### [facility] [address] [place] [address] Dr. Tami Merrill Nitrite Ql (U) Positive Abnormal NEGATIVE [facility] Comment on above: Performed By: #### B JESUSITA, HSTROPN #### [facility] [address] [place] [address] Dr. Tami Merrill pH (U) 6.0 [pH] Normal 5-9 [facility] Comment on above: Performed By: #### B JESUSITA, HSTROPN #### [facility] [address] [place] [address] Dr. Tami Merrill SPEC GRAVITY 1.015 Normal 1.005-<=1.02 5 [facility] Comment on above: Performed By: #### B JESUSITA, HSTROPN #### [facility] [address] [place] [address] Dr. Tami Merrill UA PROTEIN TRACE Normal NEGATIVE/ TRACE [facility] Comment on above: Performed By: #### B JESUSITA, HSTROPN #### [facility] [address] [place] [address] Dr. Tami Merrill UR MICRO IND INDICATED Normal [facility] Comment on above: Performed By: #### B JESUSITA, HSTROPN #### [facility] [address] [place] [address] Dr. Tami Merrill Urobilinogen Qn (U) 0.2 {Angela'U}/dL Normal 0.2 - 1. 0 [facility] Comment on above: Performed By: #### B JESUSITA, HSTROPN #### [facility] [address] [place] [address] Dr. Tami Merrill LACTATE/LACTIC ACIDon 2021 Lactate [Moles/Vol] 0.9 mmol/L Normal 0.4-1.9 [facility] Comment on above: Performed By: #### L ACT #### [facility] [address] [address] [address] Tami Merrill POINT OF CARE GLUCOSEon Glucose [Mass/Vol] 101 mg/dL Normal 74-106 [facility] Comment on above: Performed By: #### B JESUSITA, HSTROPN #### [facility] [address] [address] [address] Tami Merrill PROF 14(COMP METB)on 022 Albumin [Mass/Vol] 3.6 g/dL Normal 3.4-5.0 [facility] Comment on above: Performed By: #### B JESUSITA, HSTROPN #### [facility] [address] [place] [address] Dr. Tami Merrill Albumin/Globulin [Mass ratio] 0.9 {ratio} Normal [facility] Comment on above: Performed By: #### B JESUSITA, HSTROPN #### [facility] [address] [place] [address] Dr. Tami Merrill ALP [Catalytic activity/Vol] 51 U/L Normal 46-116 [facility] Comment on above: Performed By: #### B JESUSITA, HSTROPN #### [facility] [address] [address] [address] Tami Merrill ALT [Catalytic activity/Vol] 25 U/L Normal 16-63 [facility] Comment on above: Performed By: #### B JESUSITA, HSTROPN #### [facility] [address] [place] [address] Dr. Tami Merrill Anion gap [Moles/Vol] 13.8 mmol/L Normal [facility] Comment on above: Performed By: #### B JESUSITA, HSTROPN #### [facility] [address] [place] [address] Dr. Tami Merrill AST [Catalytic activity/Vol] 12 U/L Critically low 15-37 [facility] Comment on above: Performed By: #### B JESUSITA, HSTROPN #### [facility] [address] [address] [address] Tami Merrill Bilirubin [Mass/Vol] 0.4 mg/dL Normal 0.2-1.0 [facility] Comment on above: Performed By: #### B MP, HSTROPN #### [facility] [address] [address] [address] Tami Merrill Calcium [Mass/Vol] 8.4 mg/dL Critically low 8.5-10.1 [facility] Comment on above: Performed By: #### B MP, HSTROPN #### [facility] [address] [place] [address] Dr. Tami Merrill Chloride [Moles/Vol] 104 mmol/L Normal 98-107 [facility] Comment on above: Performed By: #### B MP, HSTROPN #### [facility] [address] [place] [address] Dr. Tami Merrill CO2 [Moles/Vol] 25.1 mmol/L Normal 21.0-32.0 [facility] Comment on above: Performed By: #### B MP, HSTROPN #### [facility] [address] [address] [address] Tami Merrill Creatinine [Mass/Vol] 2.00 mg/dL Critically high 0.70-1.30 [facility] Comment on above: Performed By: #### B MP, HSTROPN #### [facility] [address] [place] [address] Dr. Tami Merrill EGFR-AF GRENADIAN 40 mL/min/1.73m2 Critically low >=60 [facility] Comment on above: Performed By: #### B MP, HSTROPN #### [facility] [address] [place] [address] Dr. Tami Merrill EGFR-NON AF GRENADIAN 33 mL/min/1.73m2 Critically low >=60 [facility] Comment on above: Performed By: #### B MP, HSTROPN #### [facility] [address] [place] [address] Dr. Tami Merrill Globulin (S) [Mass/Vol] 3.8 g/dL Normal [facility] Comment on above: Performed By: #### B JESUSITA, HSTROPN #### [facility] [address] [place] [address] Dr. Tami Merrill Glucose [Mass/Vol] 147 mg/dL Critically high 74-106 [facility] Comment on above: Performed By: #### B JESUSITA, HSTROPN #### [facility] [address] [place] [address] Dr. Tami Merrill Potassium [Moles/Vol] 3.9 mmol/L Normal 3.5-5.1 [facility] Comment on above: Performed By: #### B JESUSITA, HSTROPN #### [facility] [address] [place] [address] Dr. Tami Merrill Protein [Mass/Vol] 7.4 g/dL Normal 6.4-8.2 [facility] Comment on above: Performed By: #### B JESUSITA, HSTROPN #### [facility] [address] [place] [address] Dr. Tami Merrill Sodium [Moles/Vol] 139 mmol/L Normal 136-145 [facility] Comment on above: Performed By: #### B JESUSITA, HSTROPN #### [facility] [address] [place] [address] Dr. Tami Merrill Urea nitrogen [Mass/Vol] 39.0 mg/dL Critically high 7.0-18.0 [facility] Comment on above: Performed By: #### B JESUSITA, HSTROPN #### [facility] [address] [place] [address] Dr. Tami Merrill Urea nitrogen/Creatinine [Mass ratio] 19.5 mg/mg Normal [facility] Comment on above: Performed By: #### B JESUSITA, HSTROPN #### [facility] [address] [place] [address] Dr. Tami Merrill PROTIMEon 02-14-2022 INR Coag (PPP) [Relative time] 1.01 {INR} Normal [facility] Comment on above: Performed By: #### P TT, PT ####[facility] [address] [id number]. Tami Merrill INR GUIDELINES SEE BELOW Normal [facility] Comment on above: Result Comment: SEN RED INR: 2.0 - 3.0 CONDITIONS NOT LISTED BELOW 2.5 - 3.5 FOR PROSTHETIC HEART VALVE REPLACEMENT 2.5 - 3.5 RECURRENT THROMBOSIS Performed By: #### P TT, PT ####[facility] [address] [address]Dr. Tami Merrill PT Coag (PPP) [Time] 10.9 s Normal 9.0-11.6 [facility] Comment on above: Performed By: #### P TT, PT ####[facility] [address] [address]Dr. Tami Merrill PTTon 02-14-2022 aPTT Coag (Bld) [Time] 26.5 s Normal 22.3-36.2 [facility] Comment on above: Performed By: #### P TT, PT ####[facility] [address] [address]DrFlorentin Merrill URINE MICROSCOPIC ONLYon BACTERIA LARGE Abnormal NONE SEEN [facility] Comment on above: Performed By: #### B JESUSITA, HSTROPN #### [facility] [address] [place] [address] Dr. Tami Merrill Bacteria identified Cx Nom (U) INDICATED Normal [facility] Comment on above: Performed By: #### B MP, HSTROPN #### [facility] [address] [place] [address] Dr. Tami Merrill CAST NONE SEEN Normal NONE SEEN [facility] Comment on above: Performed By: #### B JESUSITA, HSTROPN #### [facility] [address] [place] [address] Dr. Tami Merrill Crystals LM Nom (Urine sed) NONE SEEN Normal NONE SEEN [facility] Comment on above: Performed By: #### B JESUSITA, HSTROPN #### [facility] [address] [place] [address] Dr. Tami Merrill Epithelial cells LM Ql (Urine sed) RARE Normal NONE SEEN /RARE [facility] Comment on above: Performed By: #### B JESUSITA, HSTROPN #### [facility] [address] [address] [address] Tami Merrill MUCOUS NONE SEEN Normal NONE SEEN [facility] Comment on above: Performed By: #### B JESUSITA, HSTROPN #### [facility] [address] [address] [address] Tami Merrill RBC 2-5 Abnormal 0-2 [facility] Comment on above: Performed By: #### B JESUSITA, HSTROPN #### [facility] [address] [address] [address] Tami Merrill WBC 75-100 Abnormal NONE SEEN [facility] Comment on above: Performed By: #### B JESUSITA, HSTROPN #### [facility] [address] [address] [address] Tami Merrill US SCROTUM W VASCULAR [...] SHARMIN WILKERSON Date: 2022-02-14 19:40 Normal [facility] CBC AUTO DIFFon 11-19-2021 BASO # 0.0 103/ul Normal 0.0-0.1 [facility] Comment on above: Performed By: #### B JESUSITA, HSTROPN #### [facility] [address] [address] [address] Tami Merrill Basophils/100 WBC (Bld) 0.4 % Normal 0.2-2.0 [facility] Comment on above: Performed By: #### B JESUSIAT, HSTROPN #### [facility] [address] [place] [address] Dr. Tami Merrill EO # 0.2 103/ul Normal 0.0-0.7 [facility] Comment on above: Performed By: #### B JESUSITA, HSTROPN #### [facility] [address] [place] [address] Dr. Tami Merrill Eosinophils/100 WBC (Bld) 2.8 % Normal 0.9-7.0 [facility] Comment on above: Performed By: #### B JESUSITA, HSTROPN #### [facility] [address] [place] [address] Dr. Tami Merrill Erythrocyte distribution width (RBC) [Ratio] 14.5 % Normal 11.0-15.0 [facility] Comment on above: Performed By: #### B JESUSITA HSTROPN #### [facility] [address] [place] [address] Dr. Tami Merrill Hematocrit (Bld) [Volume fraction] 36.2 % Critically low 42.0-54.0 [facility] Comment on above: Performed By: #### B JESUSITA, HSTROPN #### [facility] [address] [place] [address] Dr. Tami Merrill Hemoglobin (Bld) [Mass/Vol] 11.9 g/dL Critically low 14.0-18.0 [facility] Comment on above: Performed By: #### B JESUSITA, HSTROPN #### [facility] [address] [place] [address] Dr. Tami Merrill IG # 0.02 10e3/ul Normal 0.00-0.03 [facility] Comment on above: Performed By: #### B JESUSITA, HSTROPN #### [facility] [address] [place] [address] Dr. Tami Merrill IG % 0.3 % Normal 0.0-0.5 [facility] Comment on above: Performed By: #### B JESUSITA, HSTROPN #### [facility] [address] [address] [address] Tami Merrill LYMPH # 1.2 103/ul Normal 1.2-3.8 [facility] Comment on above: Performed By: #### B MP, HSTROPN #### [facility] [address] [address] [address] Tami Merrill Lymphocytes/100 WBC (Bld) 16.6 % Critically low 20.5-60.0 [facility] Comment on above: Performed By: #### B MP, HSTROPN #### [facility] [address] [place] [address] Dr. Tami Merrill MANUAL DIFF REQ NO Normal [facility] Comment on above: Performed By: #### B MP, HSTROPN #### [facility] [address] [place] [address] Dr. Tami Merrill MCH (RBC) [Entitic mass] 27.0 pg Normal 25.9-34.0 [facility] Comment on above: Performed By: #### B MP, HSTROPN #### [facility] [address] [place] [address] Dr. Tami Merrill MCHC (RBC) [Mass/Vol] 32.9 g/dL Normal 29.9-35.2 [facility] Comment on above: Performed By: #### B MP, HSTROPN #### [facility] [address] [place] [address] Dr. Tami Merrill MCV (RBC) [Entitic vol] 82.3 fL Normal 80.0-94.0 [facility] Comment on above: Performed By: #### B MP, HSTROPN #### [facility] [address] [place] [address] Dr. Tami Merrill MONO # 0.7 103/ul Normal 0.3-0.8 [facility] Comment on above: Performed By: #### B MP, HSTROPN #### [facility] [address] [place] [address] Dr. Tami Merrill Monocytes/100 WBC (Bld) 9.1 % Normal 1.7-12.0 [facility] Comment on above: Performed By: #### B JESUSITA, HSTROPN #### [facility] [address] [place] [address] Dr. Tami Merrill NEUT # 5.0 103/ul Normal 1.4-6.5 [facility] Comment on above: Performed By: #### B JESUSITA, HSTROPN #### [facility] [address] [place] [address] Dr. Tami Merrill Neutrophils/100 WBC (Bld) 70.8 % Normal 43.0-75.0 [facility] Comment on above: Performed By: #### B JESUSITA, HSTROPN #### [facility] [address] [place] [address] Dr. Tami Merrill Platelet mean volume (Bld) [Entitic vol] 9.8 fL Normal 9.5-13.5 [facility] Comment on above: Performed By: #### B JESUSITA, HSTROPN #### [facility] [address] [place] [address] Dr. Tami Merrill PLT 143 103/ul Critically low 150-450 [facility] Comment on above: Performed By: #### B JESUSITA, HSTROPN #### [facility] [address] [place] [address] Dr. Tami Merrill RBC 4.40 106/ul Critically low 4.70-6.10 [facility] Comment on above: Performed By: #### B JESUSITA, HSTROPN #### [facility] [address] [place] [address] Dr. Tami Merrill WBC 7.1 103/ul Normal 4.0-11.0 [facility] Comment on above: Performed By: #### B JESUSITA, HSTROPN #### [facility] [address] [place] [address] Dr. Tami Merrill Covid-19 PCR ([facility])on 11-06 SARS-CoV-2 (COVID-19) RNA GALLO+probe Ql (Unsp spec) Not detected Normal NOT DETECTED [facility] Comment on above: Result Comment: When [...] for this test is supported by the [place] of [employer] and Human Service's declaration that [...] longer be used). Performed By: #### C [facility] ####[facility] [address] [place] [address]Dr. Tami Merrill PROF 14(COMP METB)on 022 Albumin [Mass/Vol] 3.3 g/dL Critically low 3.4-5.0 [facility] Comment on above: Performed By: #### B JESUSITA HSTROPN #### [facility] [address] [place] [address] Dr. Tami Merrill Albumin/Globulin [Mass ratio] 1.0 {ratio} Normal [facility] Comment on above: Performed By: #### B JESUSITA HSTROPN #### [facility] [address] [address] [address] Tami Merrill ALP [Catalytic activity/Vol] 37 U/L Critically low 46-116 [facility] Comment on above: Performed By: #### B JESUSITA HSTROPN #### [facility] [address] [place] [address] Dr. Tami Merrill ALT [Catalytic activity/Vol] 21 U/L Normal 16-63 [facility] Comment on above: Performed By: #### B JESUSITA HSTROPN #### [facility] [address] [place] [address] Dr. Tami Merrill Anion gap [Moles/Vol] 14.0 mmol/L Normal [facility] Comment on above: Performed By: #### B JESUSITA, HSTROPN #### [facility] [address] [address] [address] Tami Merrill AST [Catalytic activity/Vol] 14 U/L Critically low 15-37 [facility] Comment on above: Performed By: #### B JESUSITA, HSTROPN #### [facility] [address] [address] [address] Tami Merrill Bilirubin [Mass/Vol] 0.4 mg/dL Normal 0.2-1.0 [facility] Comment on above: Performed By: #### B JESUSITA, HSTROPN #### [facility] [address] [place] [address] Dr. Tami Merrill Calcium [Mass/Vol] 8.6 mg/dL Normal 8.5-10.1 [facility] Comment on above: Performed By: #### B JESUSITA, HSTROPN #### [facility] [address] [place] [address] Dr. Tami Merrill Chloride [Moles/Vol] 107 mmol/L Normal 98-107 [facility] Comment on above: Performed By: #### B JESUSITA, HSTROPN #### [facility] [address] [place] [address] Dr. Tami Merrill CO2 [Moles/Vol] 22.2 mmol/L Normal 21.0-32.0 [facility] Comment on above: Performed By: #### B JESUSITA, HSTROPN #### [facility] [address] [place] [address] Dr. Tami Merrill Creatinine [Mass/Vol] 2.32 mg/dL Critically high 0.70-1.30 [facility] Comment on above: Performed By: #### B JESUSITA, HSTROPN #### [facility] [address] [place] [address] Dr. Tami Merrill EGFR-AF GRENADIAN 34 mL/min/1.73m2 Critically low >=60 [facility] Comment on above: Performed By: #### B MP, HSTROPN #### [facility] [address] [address] [address] Tami Merrill EGFR-NON AF GRENADIAN 28 mL/min/1.73m2 Critically low >=60 [facility] Comment on above: Performed By: #### B MP, HSTROPN #### [facility] [address] [place] [address] Dr. Tami Merrill Globulin (S) [Mass/Vol] 3.4 g/dL Normal [facility] Comment on above: Performed By: #### B MP, HSTROPN #### [facility] [address] [place] [address] Dr. Tami Merrill Glucose [Mass/Vol] 114 mg/dL Critically high 74-106 [facility] Comment on above: Performed By: #### B MP, HSTROPN #### [facility] [address] [place] [address] Dr. Tami Merrill Potassium [Moles/Vol] 4.2 mmol/L Normal 3.5-5.1 [facility] Comment on above: Performed By: #### B MP, HSTROPN #### [facility] [address] [place] [address] Dr. Tami Merrill Protein [Mass/Vol] 6.7 g/dL Normal 6.4-8.2 [facility] Comment on above: Performed By: #### B MP, HSTROPN #### [facility] [address] [place] [address] Dr. Tami Merrill Sodium [Moles/Vol] 139 mmol/L Normal 136-145 [facility] Comment on above: Performed By: #### B MP, HSTROPN #### [facility] [address] [place] [address] Dr. Tami Merrill Urea nitrogen [Mass/Vol] 45.0 mg/dL Critically high 7.0-18.0 [facility] Comment on above: Performed By: #### B MP, HSTROPN #### [facility] [address] [place] [address] Dr. Tami Merrill Urea nitrogen/Creatinine [Mass ratio] 19.4 mg/mg Normal [facility] Comment on above: Performed By: #### B JESUSITA, HSTROPN #### [facility] [address] [place] [address] Dr. Tami Merrill TROPONIN, HIGH SENSITIVITYon 11-19-2021 HSTROP 11.1 pg/mL Normal 4.0-76.1 [facility] Comment on above: Result Comment: CUT- OFF POINTS HAVE BEEN ESTABLISHED BASED ON THE FOURTH UNIVERSAL DEFINITIONS OF MYOCARDIAL INFARCTION. THE UPPER REFERENCE LIMIT (URL) OF TROPONIN, DEFINED THE 99TH PERCENTILE OF cTnI DISTRIBUTION IN A REFERENCE POPULATION, HAS BEEN CONFIRMED THE DECISION THRESHOLD FOR SD DIAGNOSIS. Performed By: #### B JESUSITA HSTROPN #### [facility] [address] [place] [address] Dr. Tami Merrill HSTROP 11.5 pg/mL Normal 4.0-76.1 [facility] Comment on above: Result Comment: CUT- OFF POINTS HAVE BEEN ESTABLISHED BASED ON THE FOURTH UNIVERSAL DEFINITIONS OF MYOCARDIAL INFARCTION. THE UPPER REFERENCE LIMIT (URL) OF TROPONIN, DEFINED THE 99TH PERCENTILE OF cTnI DISTRIBUTION IN A REFERENCE POPULATION, HAS BEEN CONFIRMED THE DECISION THRESHOLD FOR SD DIAGNOSIS. Performed By: #### B JESUSITA HSTROPN #### [facility] [address] [place] [address] Dr. Tami Merrill XR CHEST 1 Von [...] by: MAYITO DOVE Date: 2021-11-19 15:02 Normal [facility] PROF CHEM 8 (BAS METB)on Anion gap [Moles/Vol] 12.0 mmol/L Normal [facility] Comment on above: Performed By: #### B MP ####[facility] [address] [place] [id number]. Tami Merrill Calcium [Mass/Vol] 8.6 mg/dL Normal 8.5-10.1 [facility] Comment on above: Performed By: #### B MP ####[facility] [address] [place] [id number]. Tami Merrill Chloride [Moles/Vol] 108 mmol/L Critically high 98-107 [facility] Comment on above: Performed By: #### B MP ####[facility] [address] [address]Dr. Tami Merrill CO2 [Moles/Vol] 25.2 mmol/L Normal 21.0-32.0 [facility] Comment on above: Performed By: #### B MP ####[facility] [address] [place], [place] [address]Dr. Tami Merrill Creatinine [Mass/Vol] 2.40 mg/dL Critically high 0.70-1.30 [facility] Comment on above: Performed By: #### B MP ####[facility] [address] [place], [place] [address]Dr. Tami Merrill EGFR-AF GRENADIAN 33 mL/min/1.73m2 Critically low >=60 [facility] Comment on above: Performed By: #### B MP ####[facility] [address] [place], [place] [address]Dr. Tami Garfield EGFR-NON AF GRENADIAN 27 mL/min/1.73m2 Critically low >=60 [facility] Comment on above: Performed By: #### B MP ####[facility] [address] [place] [address]Dr. Tami Merrill Glucose [Mass/Vol] 112 mg/dL Critically high 74-106 [facility] Comment on above: Performed By: #### B MP ####[facility] [address] [address]Dr. Tami Merrill Potassium [Moles/Vol] 4.2 mmol/L Normal 3.5-5.1 [facility] Comment on above: Performed By: #### B MP ####[facility] [address] [place] [address]Dr. Tami Merrill Sodium [Moles/Vol] 141 mmol/L Normal 136-145 [facility] Comment on above: Performed By: #### B MP ####[facility] [address] [place], [place] [address]Dr. Tami Merrill Urea nitrogen [Mass/Vol] 45.0 mg/dL Critically high 7.0-18.0 [facility] Comment on above: Performed By: #### B MP ####[facility] [address] [place], [place] [address]Dr. Tami Garfield Urea nitrogen/Creatinine [Mass ratio] 18.8 mg/mg Normal [facility] Comment on above: Performed By: #### B MP ####[facility] [address] [place], [place] [address]Dr. Tami Garfield CBC AUTO DIFFon 11-01-2021 BASO # 0.0 103/ul Normal 0.0-0.1 [facility] Comment on above: Performed By: #### C BC ####[facility] [address] [place], [place] [address]Dr. Tami Garfield Basophils/100 WBC (Bld) 0.2 % Normal 0.2-2.0 [facility] Comment on above: Performed By: #### C BC ####[facility] [address] [place], [place] [address]Dr. Tami Garfield EO # 0.0 103/ul Normal 0.0-0.7 [facility] Comment on above: Performed By: #### C BC ####[facility] [address] [place], [place] [address]Dr. Tami Garfield Eosinophils/100 WBC (Bld) 0.0 % Critically low 0.9-7.0 [facility] Comment on above: Performed By: #### C BC ####[facility] [address] [place], [place] [address]Dr. Tami Garfield Erythrocyte distribution width (RBC) [Ratio] 13.8 % Normal 11.0-15.0 [facility] Comment on above: Performed By: #### C BC ####[facility] [address] [place] [address]Dr. Tami Merrill Hematocrit (Bld) [Volume fraction] 34.9 % Critically low 42.0-54.0 [facility] Comment on above: Performed By: #### C BC ####[facility] [address] [place] [address]Dr. Tami Merrill Hemoglobin (Bld) [Mass/Vol] 11.6 g/dL Critically low 14.0-18.0 [facility] Comment on above: Performed By: #### C BC ####[facility] [address] [place], [place] [address]DrFlorentin Merrill IG # 0.12 10e3/ul Critically high 0.00-0.03 [facility] Comment on above: Performed By: #### C BC ####[facility] [address] [place], [place] [address]Dr. Tami Merrill IG % 0.9 % Critically high 0.0-0.5 [facility] Comment on above: Performed By: #### C BC ####[facility] [address] [place], [place] [address]DrFlorentin Merrill LYMPH # 1.2 103/ul Normal 1.2-3.8 [facility] Comment on above: Performed By: #### C BC ####[facility] [address] [place], [place] [address]DrFlorentin Merrill Lymphocytes/100 WBC (Bld) 9.0 % Critically low 20.5-60.0 [facility] Comment on above: Performed By: #### C BC ####[facility] [address] [place], [place] [address]DrFlorentin Merrill MANUAL DIFF REQ NO Normal [facility] Comment on above: Performed By: #### C BC ####[facility] [address] [place] [address]DrFlorentin Merrill MCH (RBC) [Entitic mass] 27.5 pg Normal 25.9-34.0 [facility] Comment on above: Performed By: #### C BC ####[facility] [address] [place] [address]Dr. Tami Merrill MCHC (RBC) [Mass/Vol] 33.2 g/dL Normal 29.9-35.2 [facility] Comment on above: Performed By: #### C BC ####[facility] [address] [place] [address]DrFlorentin Merrill MCV (RBC) [Entitic vol] 82.7 fL Normal 80.0-94.0 [facility] Comment on above: Performed By: #### C BC ####[facility] [address] [place], [place] [address]DrFlorentin Merrill MONO # 0.7 103/ul Normal 0.3-0.8 [facility] Comment on above: Performed By: #### C BC ####[facility] [address] [place], [place] [address]DrFlorentin Merrill Monocytes/100 WBC (Bld) 5.5 % Normal 1.7-12.0 [facility] Comment on above: Performed By: #### C BC ####[facility] [address] [place], [place] [address]DrFlorentin Merrill NEUT # 11.4 103/ul Critically high 1.4-6.5 [facility] Comment on above: Performed By: #### C BC ####[facility] [address] [place], [place] [address]DrFlorentin Merrill Neutrophils/100 WBC (Bld) 84.4 % Critically high 43.0-75.0 [facility] Comment on above: Performed By: #### C BC ####[facility] [address] [place], [place] [address]DrFlorentin Merrill Platelet mean volume (Bld) [Entitic vol] 9.9 fL Normal 9.5-13.5 [facility] Comment on above: Performed By: #### C BC ####[facility] [address] [place], [place] [address]Dr. Tami Merrill PLT 234 103/ul Normal 150-450 [facility] Comment on above: Performed By: #### C BC ####[facility] [address] [place], [place] [address]CcDr. Tami Merrill RBC 4.22 106/ul Critically low 4.70-6.10 [facility] Comment on above: Performed By: #### C BC ####[facility] [address] [place], [place] [address]GeDr. Tami Merrill WBC 13.5 103/ul Critically high 4.0-11.0 [facility] Comment on above: Performed By: #### C BC ####[facility] [address] [place], [place] [address]AqDr. Tami Merrill D-DIMERon 11-01-2021 D-DIMER 0.23 mg/L FEU Normal <=0.59 [facility] Comment on above: Performed By: #### D DIM #### [facility] [address] [address] [address] Tami Merrill D-DIMER COMMENTS SEE BELOW Normal [facility] Comment on above: Result Comment: Incr eases [...] hospitalization. Performed By: #### D DIM #### [facility] [address] [id number] Tami Merrill PROF CHEM 8 (BAS METB)on Anion gap [Moles/Vol] 14.0 mmol/L Normal [facility] Comment on above: Performed By: #### B MP, HSTROPN #### [facility] [address] [place], [place] [address] Dr. Tami Merrill Calcium [Mass/Vol] 8.6 mg/dL Normal 8.5-10.1 [facility] Comment on above: Performed By: #### B JESUSITA, HSTROPN #### [facility] [address] [address] [address] Tami Merrill Chloride [Moles/Vol] 107 mmol/L Normal 98-107 [facility] Comment on above: Performed By: #### B JESUSITA, HSTROPN #### [facility] [address] [address] [address] Tami Merrill CO2 [Moles/Vol] 23.4 mmol/L Normal 21.0-32.0 [facility] Comment on above: Performed By: #### B JESUSITA, HSTROPN #### [facility] [address] [place] [address] Dr. Tami Merrill Creatinine [Mass/Vol] 2.54 mg/dL Critically high 0.70-1.30 [facility] Comment on above: Performed By: #### B JESUSITA, HSTROPN #### [facility] [address] [place] [address] Dr. Tami Merrill EGFR-AF GRENADIAN 31 mL/min/1.73m2 Critically low >=60 [facility] Comment on above: Performed By: #### B JESUSITA, HSTROPN #### [facility] [address] [place] [address] Dr. Tami Merrill EGFR-NON AF GRENADIAN 25 mL/min/1.73m2 Critically low >=60 [facility] Comment on above: Performed By: #### B JESUSITA, HSTROPN #### [facility] [address] [place] [address] Dr. Tami Merrill Glucose [Mass/Vol] 180 mg/dL Critically high 74-106 [facility] Comment on above: Performed By: #### B JESUSITA, HSTROPN #### [facility] [address] [place] [address] Dr. Tami Merrill Potassium [Moles/Vol] 4.4 mmol/L Normal 3.5-5.1 [facility] Comment on above: Performed By: #### B JESUSITA, HSTROPN #### [facility] [address] [address] [address] Tami Merrill Sodium [Moles/Vol] 140 mmol/L Normal 136-145 [facility] Comment on above: Performed By: #### B JESUSITA, HSTROPN #### [facility] [address] [place] [address] Dr. Tami Merrill Urea nitrogen [Mass/Vol] 57.0 mg/dL Critically high 7.0-18.0 [facility] Comment on above: Performed By: #### B JESUSITA, HSTROPN #### [facility] [address] [address] [address] Tami Merrill Urea nitrogen/Creatinine [Mass ratio] 22.4 mg/mg Normal [facility] Comment on above: Performed By: #### B JESUSITA, HSTROPN #### [facility] [address] [place] [address] Dr. Tami Merrill TROPONIN, HIGH SENSITIVITYon 11-01-2021 HSTROP 10.5 pg/mL Normal 4.0-76.1 [facility] Comment on above: Result Comment: CUT- OFF POINTS HAVE BEEN ESTABLISHED BASED ON THE FOURTH UNIVERSAL DEFINITIONS OF MYOCARDIAL INFARCTION. THE UPPER REFERENCE LIMIT (URL) OF TROPONIN, DEFINED THE 99TH PERCENTILE OF cTnI DISTRIBUTION IN A REFERENCE POPULATION, HAS BEEN CONFIRMED THE DECISION THRESHOLD FOR SD DIAGNOSIS. Performed By: #### B JESUSITA, HSTROPN #### [facility] [address] [place] [address] Dr. Tami Merrill HSTROP 11.2 pg/mL Normal 4.0-76.1 [facility] Comment on above: Result Comment: CUT- OFF POINTS HAVE BEEN ESTABLISHED BASED ON THE FOURTH UNIVERSAL DEFINITIONS OF MYOCARDIAL INFARCTION. THE UPPER REFERENCE LIMIT (URL) OF TROPONIN, DEFINED THE 99TH PERCENTILE OF cTnI DISTRIBUTION IN A REFERENCE POPULATION, HAS BEEN CONFIRMED THE DECISION THRESHOLD FOR SD DIAGNOSIS. Performed By: #### B JESUSITA, HSTROPN #### [facility] [address] [place] [address] Dr. Tami Merrill XR CHEST 1 Von [...] MAYITO LOMBARDI Date: 2021-11-01 10:17 Normal [facility] CREATININE BLOODon 2 Creatinine [Mass/Vol] 1.65 mg/dL High 0.70-1.30 [facility] Comment on above: Order Comment: No: D o not add to previous draw Performed By: #### 2 [id number] #### [facility] [address] eGFR- 50 ml/min/1.73sq m Abnormal >60 [facility] Comment on above: Order Comment: No: D o not add to previous draw Performed By: #### 2 5656 #### [facility] [address] [facility] [address] eGFR- non- 42 ml/min/1.73sq m Abnormal >60 [facility] Comment on above: Order Comment: No: D o not add to previous draw Performed By: #### 2 5656 #### [facility] [address] Cardiovascular Lab Reporton 10-22-2021 Cardiovascular Lab Report [facility] Patient Name: [facility] Maury Forte MR #: [id number] Department of Physician: Tomas Rajan MD Division of Service Date: 10/21/2021 Cardiology Birthdate: 1950 Adult Cardiovascular Room #: 3AB [id number] [address] [place] [address] Cardiovascular Laboratory Report OPERATORS: 1. Tomas Rajan [...] longer sheath to bypass the tortuosity. A 6-Swazi Flexor 30 was inserted, and engagement was attempted again. Unfortunately, we had similar difficulty. At that point, it was decided to change the sheath out for a 6-Swazi Shuttle 80. This was done over a wire. After placement of the 6-Swazi Shuttle 80, an AL2 guide catheter was [...] ves (more content not included)... Normal [facility] LIPID PROFILEon 10-22-2021 Cholesterol [Mass/Vol] 89 mg/dL Low 120-200 Th e [facility] Comment on above: Order Comment: Yes: Add to Previous draw if able Result Comment: CHOL ESTEROL REFERENCE RANGE: 20 YEARS AND OLDER CARDIOVASCULAR RISK Less than 200 mg/dl Low Risk 200 to 239 mg/dl Borderline Risk 240 mg/dl and greater High Risk Performed By: #### 9 [id number], [id number] #### [facility] [address] [place] [address], [facility] Cholesterol in HDL [Mass/Vol] 19 mg/dL Low 23-92 [facility] Comment on above: Order Comment: Yes: Add to Previous draw if able Result Comment: Slig ht variation in normal range could be due to gender and/or age. HDL CHOLESTEROL REFERENCE RANGE: 20 years and older Cardiovascular Risk > or =60 mg/dL Desirable 40 TO 59 mg/dL Low Risk <40 mg/dL High Risk Performed By: #### 9 [id number], [id number] #### [facility] [address] [place] [address], [facility] Cholesterol in LDL [Mass/Vol] 35 mg/dL Normal 0-130 [facility] Comment on above: Order Comment: Yes: Add to Previous draw if able Result Comment: LDL IS A CALCULATION LDL IS ONLY VALID IF THE TRIG IS LESS THAN 400. Performed By: #### 9 9909, [id number] #### [facility] [address] [place] [address], [facility] Cholesterol.total/Destiny sterol in HDL [Mass ratio] 4.7 {ratio} High .0-4.5 [facility] Comment on above: Order Comment: Yes: Add to Previous draw if able Performed By: #### 9 9909, [id number] #### [facility] [address] [place] [address], [facility] NON-HDL CHOLESTEROL 70 mg/dL Normal [facility] Comment on above: Order Comment: Yes: Add to Previous draw if able Performed By: #### 9 9909, [id number] #### [facility] [address] [place] [address], [place] Triglyceride [Mass/Vol] 176 mg/dL High 40-149 T he [facility] Comment on above: Order Comment: Yes: Add to Previous draw if able Result Comment: TRIG LYCERIDE REFERENCE RANGE: 20 YEARS AND OLDER CARDIOVASCULAR RISK LESS THAN 150 mg/dl LOW RISK 150 TO 199 mg/dl BORDERLINE RISK 200 mg/dl AND GREATER HIGH RISK Performed By: #### 9 99, 81053 #### [facility] [address] [place] [address], [place] VLDL CHOL 35 mg/dL Normal 0-40 [facility] Comment on above: Order Comment: Yes: Add to Previous draw if able Performed By: #### 9 [id number], 88084 #### [facility] [address] [place] [address], [place] LIVER BATTERYon 10-22-2021 Albumin [Mass/Vol] 3.8 g/dL Normal 3.5-5.7 [facility] Comment on above: Order Comment: Yes: Add to Previous draw if able Performed By: #### 9 99, [id number] #### [facility] [address] [place] [address], [place] ALKALINE PHOSPH 44 IU/L Normal 34-104 [facility] Comment on above: Order Comment: Yes: Add to Previous draw if able Performed By: #### 9 99, 66415 #### [facility] [address] [place] [address], [place] ALT [Catalytic activity/Vol] 18 U/L Normal 7-52 [facility] Comment on above: Order Comment: Yes: Add to Previous draw if able Performed By: #### 9 99, [id number] #### [facility] [address] [place] [address], [place] AST [Catalytic activity/Vol] 13 U/L Normal 13-39 [facility] Comment on above: Order Comment: Yes: Add to Previous draw if able Performed By: #### 9 99, 99944 #### [facility] [address] [place] [address], [place] Bilirubin [Mass/Vol] 0.5 mg/dL Normal 0.3-1.0 [facility] Comment on above: Order Comment: Yes: Add to Previous draw if able Performed By: #### 9 9909, 18068 #### [facility] [address] [facility]. [address] Bilirubin.direct [Mass/Vol] 0.1 mg/dL Normal 0.0-0.2 [facility] Comment on above: Order Comment: Yes: Add to Previous draw if able Performed By: #### 9 9909, [id number] #### [facility] [address] Protein [Mass/Vol] 6.0 g/dL Normal 6.0-8.3 [facility] Comment on above: Order Comment: Yes: Add to Previous draw if able Performed By: #### 9 9909, 45149 #### [facility] [address] [facility] POC GLUCOSE LABon 10-22-2021 Glucose [Mass/Vol] 119 mg/dL High 70-100 [facility] Comment on above: Performed By: #### 8 [id number] #### [facility] [address] [facility]. [address] *SARS-CoV-2 COVID-19on 10-21 SARS-CoV-2 (COVID-19) RNA GALLO+probe Ql (Unsp spec) Not detected Normal Not Detected [facility] Comment on above: Order Comment: ORDER ED PER JIMMIE MARLEY RN AT 0031 The Aptima SARS-CoV-2 assay is a nucleic acid amplification test intended for the qualitative detection of RNA from SARS-CoV-2 isolated and purified from nasopharyngeal (BULL DRIVER),oropharyngeal (OP), nasal swab, sputum, and bronchoalveolar lavage (BAL) specimens from patients with signs and symptoms of infection who are suspected of COVID-19. Results are for the identification of SARS-CoV-2 RNA. The SARS-CoV-2 RNA is generally detectable during the acute phase of infection. The Aptima SARS-CoV-2 Assay on the [employer] system is intended for use by laboratory personnel specifically instructed and trained in the operation of the [employer] system. The Aptima SARS-CoV-2 assay is [...] information. Performed By: #### 3 [id number] #### [facility] [address] [place] [address], [facility] BASIC METABOLIC PANELon 06- Calcium [Mass/Vol] 8.4 mg/dL Low 8.6-10.3 [facility] Comment on above: Order Comment: No: D o not add to previous draw Performed By: #### 0 0071, 98574 #### [facility] [address] [place] [address], [facility] Chloride [Moles/Vol] 110 mmol/L High 98-107 [facility] Comment on above: Order Comment: No: D o not add to previous draw Performed By: #### 0 0071, 10210 #### [facility] [address] [place] [address], [place] CO2 [Moles/Vol] 24 mmol/L Normal 21-31 [facility] Comment on above: Order Comment: No: D o not add to previous draw Performed By: #### 0 0071, 24054 #### [facility] [address] [place] [address], [place] Creatinine [Mass/Vol] 1.96 mg/dL High 0.70-1.30 [facility] Comment on above: Order Comment: No: D o not add to previous draw Performed By: #### 0 0071, 76244 #### [facility] [address] [place] [address], [facility] eGFR- 41 ml/min/1.73sq m Abnormal >60 [facility] Comment on above: Order Comment: No: D o not add to previous draw Performed By: #### 0 0071, 05080 #### [facility] [address] [place] [address], [place] eGFR- non- 34 ml/min/1.73sq m Abnormal >60 [facility] Comment on above: Order Comment: No: D o not add to previous draw Performed By: #### 0 0071, 35220 #### [facility] [address] [place] [address], [place] Glucose [Mass/Vol] 106 mg/dL High 70-100 [facility] Comment on above: Order Comment: No: D o not add to previous draw Performed By: #### 0 0071, 69160 #### [facility] [address] [place] [address], [place] Potassium [Moles/Vol] 3.9 mmol/L Normal 3.5-5.1 [facility] Comment on above: Order Comment: No: D o not add to previous draw Performed By: #### 0 0071, 65599 #### [facility] [address] [place] [address], [place] Sodium [Moles/Vol] 141 mmol/L Normal 136-145 [facility] Comment on above: Order Comment: No: D o not add to previous draw Performed By: #### 0 0071, 56120 #### [facility] [address] [place] [address], [place] Urea nitrogen [Mass/Vol] 35 mg/dL High 7-25 [facility] Comment on above: Order Comment: No: D o not add to previous draw Performed By: #### 0 0071, 35964 #### [facility] [address] CBC COMPLETE BLOOD COUNTon 0 10-21-2021 Erythrocyte distribution width (RBC) [Ratio] 14.0 % Normal 11.5-15.0 [facility] Comment on above: Order Comment: No: D o not add to previous draw Performed By: #### 8 [id number] #### [facility] [address] [place] [address], [facility] Hematocrit (Bld) [Volume fraction] 37.9 % Low 39.0-50.0 [facility] Comment on above: Order Comment: No: D o not add to previous draw Performed By: #### 8 5499 #### [facility] [address] [place] [address], [facility] Hemoglobin (Bld) [Mass/Vol] 12.4 g/dL Low 13.0-17.0 [facility] Comment on above: Order Comment: No: D o not add to previous draw Performed By: #### 8 [id number] #### [facility] [address] [facility] [place] [address], [facility] MCH (RBC) [Entitic mass] 27.0 pg Normal 27.0-33.0 [facility] Comment on above: Order Comment: No: D o not add to previous draw Performed By: #### 8 5499 #### [facility] [address] [place] [address], [facility] MCHC (RBC) [Mass/Vol] 32.7 g/dL Normal 32.0-35.0 [facility] Comment on above: Order Comment: No: D o not add to previous draw Performed By: #### 8 [id number] #### [facility] [address] [place] [place] [address], [facility] MCV (RBC) [Entitic vol] 82.4 fL Normal 82.0-98.0 T marissa [facility] Comment on above: Order Comment: No: D o not add to previous draw Performed By: #### 8 [id number] #### [facility] [address] [place] [address], [facility] Nucleated RBC/100 WBC (Bld) [Ratio] 0 % Normal 0-0 [facility] Comment on above: Order Comment: No: D o not add to previous draw Performed By: #### 8 [id number] #### [facility] [address] [place] [id number], [facility] PLAT CNT 138 10*3/uL Low 150-400 [facility] Comment on above: Order Comment: No: D o not add to previous draw Performed By: #### 8 [id number] #### [facility] [address] [place] [address], [facility] RBC (Bld) [#/Vol] 4.60 10*6/uL Normal 4.20-5.70 [facility] Comment on above: Order Comment: No: D o not add to previous draw Performed By: #### 8 [id number] #### [facility] [address] [place] [address], [facility] WBC (Bld) [#/Vol] 6.81 10*3/uL Normal 4.00-10.60 [facility] Comment on above: Order Comment: No: D o not add to previous draw Performed By: #### 8 [id number] #### [facility] [address] [facility]. [address] MAGNESIUM BLOODon 10-21-2021 Magnesium [Mass/Vol] 1.9 mg/dL Normal 1.9-2.7 [facility] Comment on above: Order Comment: No: D o not add to previous draw Performed By: #### 0 0071, 92753 #### [facility] [address] [place] [address], [facility] POC GLUCOSE LABon 10-21-2021 Glucose [Mass/Vol] 124 mg/dL High 70-100 [facility] Comment on above: Performed By: #### 8 5499 #### [facility] [address] [place] [address], [facility] Glucose [Mass/Vol] 101 mg/dL High 70-100 [facility] Comment on above: Performed By: #### 8 [id number] #### [facility] [address] [place] [address], [facility] POC SARS COV2 ANTIGEN NEGATI VEon 10-21-2021 POC SARS COV2 ANTIGEN NEG Negative Normal NEGATIVE [facility] Comment on above: Result Comment: Nega [...] antigen from SARS-CoV-2 in direct nasopharyngeal swab (BULL DRIVER) specimens from individuals who are suspected of [...] Accreditation. Performed By: #### 3 2044 #### [facility] [address] [place] [address], [facility] POC GLUCOSE LABon 10-20-2021 Glucose [Mass/Vol] 179 mg/dL High 70-100 [facility] Comment on above: Performed By: #### 8 [id number] #### [facility] [address] [place] [address], [place] Glucose [Mass/Vol] 91 mg/dL Normal 70-[address] [facility] Comment on above: Performed By: #### 8 [id number] #### [facility] [address] [place] [address], [facility] COVID Quick Testingon 2021 Result Negative [employer] Other Quick Fluon 10-16-2021 FLUAV Ab CF (S) [Titer] Negative N [employer] Other FLUBV Ab CF (S) [Titer] Negative N [employer] Other NM STRESS/REST MULTIon 09-30 NM STRESS/REST MULTI Patient: MAURY ISSA Exam Date: 09/30/2021 : 1950 Gender:M Ordering : IZA CASANOVA Admission #: [id number] Family : Order #: [id number] CLICK HERE TO VIEW EXAM RADIOLOGY REPORT [...] Price M.D. on 10/01/2021 at 08:40 Normal [facility] ECHOCARDIO M/2D COMPLETEon 0 09-24-2021 ECHOCARDIO M/2D COMPLETE Patient: MAURY ISSA Exam Date: 09/24/2021 : 1950 Gender:M Ordering : IZA CASANOVA Admission #: [id number] Family : DR MASON MEMBRENO M.D. Order #: [id number] CLICK HERE TO VIEW EXAM ECHOCARDIOGRAM REPORT [...] Area(A4C): 24.10 cm2 Left Atrium Systolic Volume(A2C): 34624 mm3 Left Atrium Systolic Volume(A4C): 65282 mm3 Mitral Valve MV E to A Ratio: 0.90 Mitral Valve A-Wave Peak Velocity: 85.40 cm/s Mitral Valve E-Wave Peak Velocity: 74.50 cm/s Deceleration Time: 283 ms Right Ventricle Aorta AO Root Diam: 4.00 cm Aortic Valve AoV Area (Peak Darnell): 4.11 cm2 AoV Area (VTI): 4.46 cm2 Deceleration [place]: 1950 mm/s2 Pressure Half-Time: 712 ms Peak [...] Johnson M.D. on 09/24/2021 at 13:18 Normal [facility] Basic Metab w/rfx MGon 12-30 (cont.) [facility] Comment on above: Result Comment: Aver age GFR for 60-69 years old: 85 mL/min/1.73sq m Chronic Kidney Disease: <60 mL/min/1.73sq m Kidney failure: <15 mL/min/1.73sq m eGFR calculated using average adult body mass. Additional eGFR calculator available at: http://www.[employer]/multiple_crcl_2012.htm Performed By: #### C DP, BMPX #### Lab [address] [place] [address] Ring Sorter: Brian Lewis MD Anion gap [Moles/Vol] 11 mmol/L Normal 9-17 [facility] Comment on above: Performed By: #### C DP, BMPX #### [facility] [address] [place], [place] [id number] Ring Sorter: Brian Lewis MD BUN/CRE Ratio 15 Normal 9-20 [facility] Comment on above: Performed By: #### C DP, BMPX #### [facility] [address] [place], [place] [id number] Ring Sorter: Brian Lewis MD Calcium [Mass/Vol] 9.2 mg/dL Normal 8.6-10.4 [facility] Comment on above: Performed By: #### C DP, BMPX #### [facility] [address] [place], [place] [address] Ring Sorter: Brian Lewis MD Chloride [Moles/Vol] 102 mmol/L Normal 98-107 [facility] Comment on above: Performed By: #### C DP, BMPX #### [facility] [address] [place] [address] Ring Sorter: Brian Lewis MD CO2 [Moles/Vol] 28 mmol/L Normal 20-31 [facility] Comment on above: Performed By: #### C DP, BMPX #### [facility] [address] [place] [address] Ring Sorter: Brian Lewis MD Creatinine [Mass/Vol] 1.69 mg/dL High 0.70-1.20 [facility] Comment on above: Performed By: #### C DP, BMPX #### [facility] [address] [place], [place] [address] Ring Sorter: Brian Lewis MD GFR, Amer 49 mL/min Low >60 [facility] Comment on above: Performed By: #### C DP, BMPX #### [facility] [address] [place] [address] Ring Sorter: Brian Lewis MD GFR,non Amer 41 mL/min Low >60 [facility] Comment on above: Performed By: #### C DP, BMPX #### [facility] [address] [place], [place] [id number] Ring Sorter: Brian Lewis MD Glucose [Mass/Vol] 75 mg/dL Normal 70-99 [facility] Comment on above: Performed By: #### C DP, BMPX #### [facility] [address] [place], [place] [id number] Ring Sorter: Brian Lewis MD Potassium [Moles/Vol] 4.8 mmol/L Normal 3.7-5.3 [facility] Comment on above: Performed By: #### C DP, BMPX #### [facility] [address] [place], [place] [id number] Ring Sorter: Brian Lewis MD Sodium [Moles/Vol] 141 mmol/L Normal 135-144 [facility] Comment on above: Performed By: #### C DP, BMPX #### [facility] [address] [place] [address] Ring Sorter: Brian Lewis MD Staging: Normal [facility] Comment on above: Result Comment: Stag e 1: Some kidney damage normal GFR Stage 2: Mild kidney damage GFR 60-89 Stage 3: Moderate kidney damage GFR 30-59 Stage 4: Severe kidney damage GFR 15-29 Stage 5: Severe kidney damage GFR <15 ESRD - chronic treatment by dialysis or transplant Performed By: #### C DP, BMPX #### [facility] [address] [place] [address] Ring Sorter: Brian Lewis MD Urea nitrogen [Mass/Vol] 26 mg/dL High 8-23 [facility] Comment on above: Performed By: #### C DP, BMPX #### [facility] [address] [place] [address] Ring Sorter: Brian Lewis MD Basic Metabolic Panel w/ Ref arnold to MGon 12-30-2018 Anion gap [Moles/Vol] 11 mmol/L 9 - 17 mmol/L [place], [place] Bun/Cre Ratio 15 [employer] Calcium [Mass/Vol] 9.2 mg/dL 8.6 - 10. 4 mg/dL [place] Chloride [Moles/Vol] 102 mmol/L 98 - 10 7 mmol/L [place] CO2 [Moles/Vol] 28 mmol/L 20 - 31 mmol/L [place] Creatinine [Mass/Vol] 1.69 mg/dL High 0.7 - 1.2 mg/dL [place] GFR 49 mL/min Low >60 [place] GFR Non- 41 mL/min Low >60 [place] Glucose [Mass/Vol] 75 mg/dL 70 - 99 mg/dL [place] Interpretation and review of laboratory results Abnormal [place] Potassium [Moles/Vol] 4.8 mmol/L 3.7 - 5.3 mmol/L [place] Sodium [Moles/Vol] 141 mmol/L 135 - 144 mmol/L [place] Urea nitrogen [Mass/Vol] 26 mg/dL High 8 - 23 mg/dL [place] CBC Auto Differentialon 12-08 Basophils (Bld) [#/Vol] 0.03 10*3/uL [place] Basophils/100 WBC (Bld) 0 % 0 - 2 % M [place], [place] Differential Type NOT REPORTED [place] Eosinophils (Bld) [#/Vol] 0.19 10*3/uL [place] Eosinophils/100 WBC (Bld) 2 % 1 - 4 % [place] Erythrocyte distribution width (RBC) [Ratio] 13.4 % 11.8 - 14.4 % [place] Hematocrit (Bld) [Volume fraction] 41.4 % 40.7 - 50.3 % [place] Hemoglobin (Bld) [Mass/Vol] 13.3 g/dL 13 - 17 g/dL [place] Immature granulocytes (Bld) [#/Vol] 0.04 10*3/uL [place] Immature granulocytes (Bld) [#/Vol] 0 % 0 [place] Interpretation and review of laboratory results Abnormal [place] Lymphocytes (Bld) [#/Vol] 1.46 10*3/uL [place] Lymphocytes/100 WBC (Bld) 15 % Low 24 - 43 % [place] MCH (RBC) [Entitic mass] 26.9 pg 25.2 - 33.5 pg [place] MCHC (RBC) [Mass/Vol] 32.1 g/dL 28.4 - 34.8 g/dL [place] MCV (RBC) [Entitic vol] 83.8 fL 82.6 - 102.9 fL [place] Monocytes (Bld) [#/Vol] 0.66 10*3/uL [place] Monocytes/100 WBC (Bld) 7 % 3 - 12 % M [place], [place] Platelet mean volume (Bld) [Entitic vol] 10.0 fL 8.1 - 13.5 fL [place] Platelets (Bld) [#/Vol] NOT REPORTED [place] Platelets (Bld) [#/Vol] 174 10*3/uL [place] RBC (Bld) [#/Vol] 4.94 10*6/uL 4.21 - 5.7 7 m/uL [place] RBC morphology finding Nom (Bld) NOT REPORTED [place] Segmented neutrophils/100 WBC (Bld) 76 % High 36 - 65 % [place] Segs Absolute 7.36 [employer] WBC (Bld) [#/Vol] 9.7 10*3/uL [place] WBC (Bld) [#/Vol] 0.0 10*3/uL 0.0 per 10 0 WBC [place] WBC Morphology NOT REPORTED [place], [place] CBC with Diffon 12-30-2018 Abs. Basophil 0.03 k/uL Normal 0.00-0.20 [facility] Comment on above: Performed By: #### C DP, BMPX #### Lab [address] [place] [address] [place] [id number] Ring Sorter: Brian Lewis MD Abs.Imm.Granulocyte 0.04 k/uL Normal 0.00-0.30 [facility] Comment on above: Performed By: #### C DP, BMPX #### [address] [place] [id number] Ring Sorter: Brian Lewis MD Abs.Neutrophil (Seg) 7.36 k/uL Normal 1.50-8.10 [facility] Comment on above: Performed By: #### C DP, BMPX #### [address] [place] [id number] Ring Sorter: Brian Lewis MD Basophils/100 WBC (Bld) 0 % Normal 0-2 M [facility] Comment on above: Performed By: #### C DP, BMPX #### [address] [place] [place] [address] Ring Sorter: Brian Lewis MD Eosinophils (Bld) [#/Vol] 0.19 10*3/uL Normal 0.00-0.44 [facility] Comment on above: Performed By: #### C DP, BMPX #### Lab [address] [place], [facility] Ring Sorter: Brian Lewis MD Eosinophils/100 WBC (Bld) 2 % Normal 1-4 [facility] Comment on above: Performed By: #### C DP, BMPX #### [facility] [address] [place], [facility] Ring Sorter: Brian Lewis MD Erythrocyte distribution width (RBC) [Ratio] 13.4 % Normal 11.8-14.4 [facility] Comment on above: Performed By: #### C DP, BMPX #### [facility] [address] [place] [phone] Ring Sorter: Brian Lewis MD Hematocrit (Bld) [Volume fraction] 41.4 % Normal 40.7-50.3 [facility] Comment on above: Performed By: #### C DP, BMPX #### [facility] [address] [place], [facility] Ring Sorter: Brian Lewis MD Hemoglobin (Bld) [Mass/Vol] 13.3 g/dL Normal 13.0-17.0 [facility] Comment on above: Performed By: #### C DP, BMPX #### [facility] [address] [place], [facility] Ring Sorter: Brian Lewis MD Immature granulocytes (Bld) [#/Vol] 0 % Normal 0 [facility] Comment on above: Performed By: #### C DP, BMPX #### [facility] [address] [place], [facility] Ring Sorter: Brian Lewis MD Lymphocytes (Bld) [#/Vol] 1.46 10*3/uL Normal 1.10-3.70 [facility] Comment on above: Performed By: #### C DP, BMPX #### [facility] [address] [place], [facility] Ring Sorter: Brian Lewis MD Lymphocytes/100 WBC (Bld) 15 % Low 24-43 [facility] Comment on above: Performed By: #### C DP, BMPX #### Lab [address] [place], [place] [id number] Ring Sorter: Brian Lewis MD MCH (RBC) [Entitic mass] 26.9 pg Normal 25.2-33.5 [facility] Comment on above: Performed By: #### C DP, BMPX #### [facility] [address] [place], [place] [phone] Ring Sorter: Brian Lewis MD MCHC (RBC) [Mass/Vol] 32.1 g/dL Normal 28.4-34.8 [facility] Comment on above: Performed By: #### C DP, BMPX #### [facility] [address] [place], [facility] Ring Sorter: Brian Lewis MD MCV (RBC) [Entitic vol] 83.8 fL Normal 82.6-102.9 [facility] Comment on above: Performed By: #### C DP, BMPX #### [facility] [address] [place], [place] [phone] Ring Sorter: Brian Lewis MD Monocytes (Bld) [#/Vol] 0.66 10*3/uL Normal 0.10-1.20 [facility] Comment on above: Performed By: #### C DP, BMPX #### Lab [address] [place], [place] [address] Ring Sorter: Brian Lewis MD Monocytes/100 WBC (Bld) 7 % Normal 3-12 M [facility] Comment on above: Performed By: #### C DP, BMPX #### Lab [address] [place], [place] [phone] Ring Sorter: Brian Lewis MD Neutrophil (Seg) 76 % High 36-65 [facility] Comment on above: Performed By: #### C DP, BMPX #### Lab [address] [place] [address] Ring Sorter: Brian Lewis MD NRBC Automated 0.0 per 100 WBC Normal 0.0 [facility] Comment on above: Performed By: #### C DP, BMPX #### [facility] [address] [place], [facility] Ring Sorter: Brian Lewis MD Platelet mean volume (Bld) [Entitic vol] 10.0 fL Normal 8.1-13.5 [facility] Comment on above: Performed By: #### C DP, BMPX #### [facility] [address] [place], [place] [address] Ring Sorter: Brian Lewis MD Platelets (Bld) [#/Vol] 174 10*3/uL Normal 138-453 [facility] Comment on above: Performed By: #### C DP, BMPX #### [facility] [address] [place] [address] Ring Sorter: Brian Lewis MD RBC (Bld) [#/Vol] 4.94 10*6/uL Normal 4.21-5.77 [facility] Comment on above: Performed By: #### C DP, BMPX #### [facility] [address] [place], [facility] Ring Sorter: Brian Lewis MD WBC (Bld) [#/Vol] 9.7 10*3/uL Normal 3.5-11.3 [facility] Comment on above: Performed By: #### C DP, BMPX #### [facility] [address] [place], [place] [id number] Ring Sorter: Brian Lewis MD Auto Diff Performed NOT REPORTED Normal [facility] Comment on above: Performed By: #### C DP, BMPX #### Lab [address] [place], [place] [id number] Ring Sorter: Brian Lewis MD Platelets (Bld) [#/Vol] NOT REPORTED Normal [facility] Comment on above: Performed By: #### C DP, BMPX #### Lab [address] [place], [place] [id number] Ring Sorter: Brian Lewis MD RBC morphology finding Nom (Bld) NOT REPORTED Normal [facility] Comment on above: Performed By: #### C DP, BMPX #### Lab [address] [place] [address] Ring Sorter: Brian Lewis MD WBC Morphology NOT REPORTED Normal [facility] Comment on above: Performed By: #### C DP, BMPX #### Lab [address] [place] [address] Ring Sorter: Brian Lewis MD Metabolic Panelon 12-30-2018 GFR/1.73 sq M predicted among non-blacks MDRD (S/P/Bld) [Vol rate/Area] [place], [place] Comment on above: Average GFR for 60-6 9 years old: 85 mL/min/1.73sq m Chronic Kidney Disease: <60 mL/min/1.73sq m Kidney failure: <15 mL/min/1.73sq m eGFR calculated using average adult body mass. Additional eGFR calculator available at: http://[email or web address]_[email or web address] Stage 1: Some kidney damage normal GFR Stage 2: Mild kidney damage GFR 60-89 Stage 3: Moderate kidney damage GFR 30-59 Stage 4: Severe kidney damage GFR 15-29 Stage 5: Severe kidney damage GFR <15 ESRD - chronic treatment by dialysis or transplant Vital Signs Date Time Vital Sign Value Performing Clinician Facility 10-11-2024 08:31-0400 Body height 172.7 cm Mason Membreno MD Work Phone: [facility] 10-11-2024 08:31-0400 Body mass index (BMI) [Ratio] 30.11 kg/m2 Mason Membreno MD Work Phone: [facility] 10-11-2024 08:31-0400 Body weight 89.81 kg Mason Membreno MD Work Phone: [facility] 10-11-2024 08:31-0400 Diastolic blood pressure 64 mm[Hg] Mason Membreno MD Work Phone: [facility] 10-11-2024 08:31-0400 Heart rate 63 /min Mason Membreno MD Work Phone: [facility] 10-11-2024 08:31-0400 SaO2% (BldA) [Mass fraction] 96 % Mason Membreno MD Work Phone: [facility] 10-11-2024 08:31-0400 Systolic blood pressure 122 mm[Hg] Mason Membreno MD Work Phone: [facility] 07-12-2024 10:18-0500 Body height 172.7 cm Kyrie Carney DPM Work Phone: [facility] 07-12-2024 10:18-0500 Body mass index (BMI) [Ratio] 31.32 kg/m2 Kyrie Carney DPM Work Phone: [facility] 07-12-2024 10:18-0500 Body weight 93.44 kg Kyrie Carney DPM Work Phone: [facility] 07-12-2024 10:18-0500 Respiratory rate 16 /min Kyrie Carney DPM Work Phone: [facility] 07-02-2024 08:45-0500 Body height 172.7 cm Mason Membreno MD Work Phone: [facility] 07-02-2024 08:45-0500 Body mass index (BMI) [Ratio] 31.32 kg/m2 Mason Membreno MD Work Phone: [facility] 07-02-2024 08:45-0500 Body weight 93.44 kg Mason Membreno MD Work Phone: [facility] 07-02-2024 08:45-0500 Diastolic blood pressure 82 mm[Hg] Mason Membreno MD Work Phone: [facility] 07-02-2024 08:45-0500 Heart rate 54 /min Mason Membreno MD Work Phone: [facility] 07-02-2024 08:45-0500 SaO2% (BldA) [Mass fraction] 96 % Mason Membreno MD Work Phone: [facility] 07-02-2024 08:45-0500 Systolic blood pressure 130 mm[Hg] Mason Membreno MD Work Phone: [facility] 04-19-2024 10:21-0500 Body height 172.7 cm Kyrie Carney DPM Work Phone: [facility] 04-19-2024 10:21-0500 Body mass index (BMI) [Ratio] 29.8 kg/m2 Kyrie Carney DPM Work Phone: [facility] 04-19-2024 10:21-0500 Body weight 88.91 kg Kyrie Carney DPM Work Phone: [facility] 04-19-2024 10:21-0500 Respiratory rate 16 /min Kyrie Carney DPM Work Phone: [facility] 02-27-2024 11:02-0400 Body height 172.7 cm Mason Membreno MD Work Phone: [facility] 02-27-2024 11:02-0400 Body mass index (BMI) [Ratio] 29.8 kg/m2 Mason Membreno MD Work Phone: [facility] 02-27-2024 11:02-0400 Body weight 88.91 kg Mason Membreno MD Work Phone: [facility] 02-27-2024 11:02-0400 Diastolic blood pressure 72 mm[Hg] Mason Membreno MD Work Phone: [facility] 02-27-2024 11:02-0400 Heart rate 51 /min Mason Membreno MD Work Phone: [facility] 02-27-2024 11:02-0400 SaO2% (BldA) [Mass fraction] 96 % Mason Membreno MD Work Phone: [facility] 02-27-2024 11:02-0400 Systolic blood pressure 122 mm[Hg] Mason Membreno MD Work Phone: [facility] 02-07-2024 09:40-0400 Body height 175.3 cm Sher White MD Work Phone: [facility] 02-07-2024 09:40-0400 Body mass index (BMI) [Ratio] 28.06 kg/m2 Sher White MD Work Phone: [facility] 02-07-2024 09:40-0400 Body weight 86.18 kg Sher White MD Work Phone: [facility] 02-07-2024 09:40-0400 Diastolic blood pressure 96 mm[Hg] Sher White MD Work Phone: [facility] 02-07-2024 09:40-0400 Heart rate 65 /min Sher White MD Work Phone: [facility] 02-07-2024 09:40-0400 Systolic blood pressure 133 mm[Hg] Sher White MD Work Phone: [facility] 02-06-2024 09:02-0400 Body height 172.7 cm Mason Membreno MD Work Phone: [facility] 02-06-2024 09:02-0400 Body mass index (BMI) [Ratio] 29.35 kg/m2 Mason Membreno MD Work Phone: [facility] 02-06-2024 09:02-0400 Body weight 87.54 kg Mason Membreno MD Work Phone: [facility] 02-06-2024 09:02-0400 Diastolic blood pressure 64 mm[Hg] Mason Membreno MD Work Phone: [facility] 02-06-2024 09:02-0400 Heart rate 62 /min Mason Membreno MD Work Phone: [facility] 02-06-2024 09:02-0400 SaO2% (BldA) [Mass fraction] 96 % Mason Membreno MD Work Phone: [facility] 02-06-2024 09:02-0400 Systolic blood pressure 126 mm[Hg] Mason Membreno MD Work Phone: [facility] 02-02-2024 14:29-0400 Body height 172.7 cm Sophia Zaldivar BULL DRIVER Work Phone: [facility] 02-02-2024 14:29-0400 Body mass index (BMI) [Ratio] 29.1 kg/m2 Sophia Zaldivar B[employer] DRIVER Work Phone: [facility] 02-02-2024 14:29-0400 Body weight 86.82 kg Sophia Zaldivar B[employer] DRIVER Work Phone: [facility] 02-02-2024 14:29-0400 Diastolic blood pressure 90 mm[Hg] Sophia Zaldivar BULL DRIVER Work Phone: [facility] 02-02-2024 14:29-0400 Heart rate 62 /min Sophia Zaldivar B[employer] DRIVER Work Phone: [facility] 02-02-2024 14:29-0400 Respiratory rate 18 /min Sophia Zaldivar BULL DRIVER Work Phone: [facility] 02-02-2024 14:29-0400 SaO2% (BldA) [Mass fraction] 99 % Sophia Zaldivar BULL DRIVER Work Phone: [facility] 02-02-2024 14:29-0400 Systolic blood pressure 132 mm[Hg] Sophia Zaldivar BULL DRIVER Work Phone: [facility] 01-27-2024 17:45-0400 Body height 177.8 cm [facility] 01-27-2024 17:45-0400 Body mass index (BMI) [Ratio] 28.3 kg/m2 [facility] 01-27-2024 17:45-0400 Body temperature 98.9 [degF] [facility] 01-27-2024 17:45-0400 Body weight 89.35 kg [facility] 01-27-2024 17:45-0400 Diastolic blood pressure 77 mm[Hg] [facility] 01-27-2024 17:45-0400 Heart rate 64 /min [facility] 01-27-2024 17:45-0400 Respiratory rate 18 /min [facility] 01-27-2024 17:45-0400 SaO2% (BldA) [Mass fraction] 96 % [facility] 01-27-2024 17:45-0400 Systolic blood pressure 139 mm[Hg] [facility] 01-12-2024 14:00-0400 Body height 172.7 cm Kyrie Carney DPM Work Phone: [facility] 01-12-2024 14:00-0400 Body mass index (BMI) [Ratio] 29.19 kg/m2 Kyrie Carney DPM Work Phone: [facility] 01-12-2024 14:00-0400 Body weight 87.09 kg Kyrie Carney DPM Work Phone: [facility] 01-12-2024 14:00-0400 Diastolic blood pressure 79 mm[Hg] Kyrie Carney DPM Work Phone: [facility] 01-12-2024 14:00-0400 Heart rate 83 /min Kyrie Carney DPM Work Phone: [facility] 01-12-2024 14:00-0400 Systolic blood pressure 128 mm[Hg] Kyrie Carney DPM Work Phone: [facility] 01-05-2024 15:06-0400 Body height 172.7 cm Mason Membreno MD Work Phone: [facility] 01-05-2024 15:06-0400 Body mass index (BMI) [Ratio] 29.19 kg/m2 Mason Membreno MD Work Phone: [facility] 01-05-2024 15:06-0400 Body weight 87.09 kg Mason Membreno MD Work Phone: [facility] 01-05-2024 15:06-0400 Diastolic blood pressure 70 mm[Hg] Mason Membreno MD Work Phone: [facility] 01-05-2024 15:06-0400 Heart rate 67 /min Mason Membreno MD Work Phone: [facility] 01-05-2024 15:06-0400 SaO2% (BldA) [Mass fraction] 98 % Mason Membreno MD Work Phone: [facility] 01-05-2024 15:06-0400 Systolic blood pressure 114 mm[Hg] Mason Membreno MD Work Phone: [facility] 12-26-2023 15:19-0400 Body height 172.7 cm Mason Membreno MD Work Phone: [facility] 12-26-2023 15:19-0400 Body mass index (BMI) [Ratio] 29.8 kg/m2 Mason Membreno MD Work Phone: [facility] 12-26-2023 15:19-0400 Body weight 88.91 kg Mason Membreno MD Work Phone: [facility] 12-26-2023 15:19-0400 Diastolic blood pressure 62 mm[Hg] Mason Membreno MD Work Phone: [facility] 12-26-2023 15:19-0400 Heart rate 77 /min Mason Membreno MD Work Phone: [facility] 12-26-2023 15:19-0400 SaO2% (BldA) [Mass fraction] 97 % Mason Membreno MD Work Phone: [facility] 12-26-2023 15:19-0400 Systolic blood pressure 102 mm[Hg] Mason Membreno MD Work Phone: [facility] 06-16-2023 09:30-0500 Body height 177.8 cm Kaci Torrez Other [facility] Other 06-16-2023 09:30-0500 Body mass index (BMI) [Ratio] 27.98 kg/m2 Kaci Torrez Other [facility] Other 06-16-2023 09:30-0500 Body temperature 98 [degF] Kaci Torrez Other [facility] Other 06-16-2023 09:30-0500 Body weight 88.45 kg Kaci Torrez Other [facility] Other 06-16-2023 09:30-0500 Respiratory rate 18 /min Kaci Torrez Other [facility] Other 06-16-2023 09:30-0500 SaO2% (BldA) [Mass fraction] 97 % Kaci Torrez Other [facility] Other 04-12-2023 14:30-0500 Body height 177.8 cm Esteban Steward Other [facility] Other 04-12-2023 14:30-0500 Body mass index (BMI) [Ratio] 27.78 kg/m2 Esteban Steward Other [facility] Other 04-12-2023 14:30-0500 Body weight 87.82 kg Esteban Steward Other [facility] Other 04-12-2023 14:30-0500 Diastolic blood pressure 76 mm[Hg] Esteban Steward Other [facility] Other 04-12-2023 14:30-0500 Systolic blood pressure 131 mm[Hg] Esteban Steward Other [facility] Other 02-28-2023 16:37-0400 Body temperature 97.7 [degF] MOSHE Mason Haseeb Work Phone: [facility] 02-28-2023 16:37-0400 Diastolic blood pressure 83 mm[Hg] II Mason Membreno Work Phone: [facility] 02-28-2023 16:37-0400 Heart rate 55 /min II Mason Membreno Work Phone: [facility] 02-28-2023 16:37-0400 Respiratory rate 18 /min II Mason Membreno Work Phone: [facility] 02-28-2023 16:37-0400 SaO2% (BldA) [Mass fraction] 99 % II Mason Membreno Work Phone: [facility] 02-28-2023 16:37-0400 Systolic blood pressure 142 mm[Hg] II Mason Membreno Work Phone: [facility] 02-28-2023 06:00-0400 Body weight 84.3 kg II Mason Membreno Work Phone: [facility] 02-27-2023 13:01-0400 Body height 172.72 cm II Mason Membreno Work Phone: [facility] 02-22-2023 09:10-0400 Body height 177.8 cm Kaci Torrez Other [facility] Other 02-22-2023 09:10-0400 Body mass index (BMI) [Ratio] 27.52 kg/m2 Kaci Torrez Other [facility] Other 02-22-2023 09:10-0400 Body temperature 97.6 [degF] Kaci Torrez Other [facility] Other 02-22-2023 09:10-0400 Body weight 87 kg Kaci Torrez Other [facility] Other 02-22-2023 09:10-0400 Diastolic blood pressure 92 mm[Hg] Kaci Torrez Other [facility] Other 02-22-2023 09:10-0400 Respiratory rate 18 /min Kaci Torrez Other [facility] Other 02-22-2023 09:10-0400 SaO2% (BldA) [Mass fraction] 97 % Kaci Torrez Other [facility] Other 02-22-2023 09:10-0400 Systolic blood pressure 126 mm[Hg] Kaci Torrez Other [facility] Other 02-18-2023 11:35-0400 Diastolic blood pressure 89 mm[Hg] II Mason Membreno Work Phone: [facility] 02-18-2023 11:35-0400 Heart rate 69 /min II Mason Membreno Work Phone: [facility] 02-18-2023 11:35-0400 Respiratory rate 16 /min II Mason Membreno Work Phone: [facility] 02-18-2023 11:35-0400 SaO2% (BldA) [Mass fraction] 98 % II Mason Membreno Work Phone: [facility] 02-18-2023 11:35-0400 Systolic blood pressure 142 mm[Hg] II Mason Membreno Work Phone: [facility] 02-18-2023 09:59-0400 Body height 172.72 cm II Mason Membreno Work Phone: [facility] 02-18-2023 09:59-0400 Body temperature 98 [degF] II Mason Membreno Work Phone: [facility] 02-18-2023 09:59-0400 Body weight 83.91 kg II Mason Membreno Work Phone: [facility] 01-11-2023 13:15-0400 Body height 177.8 cm Esteban Steward Other [facility] Other 01-11-2023 13:15-0400 Body mass index (BMI) [Ratio] 26.83 kg/m2 Esteban Steward Other [facility] Other 01-11-2023 13:15-0400 Body weight 84.82 kg Esteban Steward Other [facility] Other 01-11-2023 13:15-0400 Diastolic blood pressure 63 mm[Hg] Esteban Steward Other [facility] Other 01-11-2023 13:15-0400 Systolic blood pressure 87 mm[Hg] Esteban Steward Other [employer] Other 10-27-2022 09:23-0400 Diastolic blood pressure 88 mm[Hg] Francisca Lue [facility] 10-27-2022 09:23-0400 Heart rate 65 /min Francisca Lue [facility] 10-27-2022 09:23-0400 Systolic blood pressure 126 mm[Hg] Francisca Lue [facility] 04-20-2022 15:00-0500 Body height 177.8 cm Esteban Steward Other [facility] Other 04-20-2022 15:00-0500 Body mass index (BMI) [Ratio] 28.41 kg/m2 Esteban Steward Other [facility] Other 04-20-2022 15:00-0500 Body weight 89.81 kg Esteban Steward Other [facility] Other 04-20-2022 15:00-0500 Diastolic blood pressure 59 mm[Hg] Esteban Steward Other [facility] Other 04-20-2022 15:00-0500 Systolic blood pressure 88 mm[Hg] Esteban Steward Other [facility] Other 10-16-2021 10:00-0400 Body height 177.8 cm Kimberly Talbot Other [facility] Other 10-16-2021 10:00-0400 Body mass index (BMI) [Ratio] 29.41 kg/m2 Kimberly Talbot Other [facility] Other 10-16-2021 10:00-0400 Body temperature 97.1 [degF] Kimberly Talbot Other [facility] Other 10-16-2021 10:00-0400 Body weight 92.99 kg Kimberly Talbot Other [facility] Other 10-16-2021 10:00-0400 Respiratory rate 18 /min Kimberly Suazomond Other [facility] Other 10-16-2021 10:00-0400 SaO2% (BldA) [Mass fraction] 97 % Kimberly Talbot Other [facility] Other 08-18-2021 09:47-0400 Blood Pressure Location Maury Kothari Jr. [facility] 08-18-2021 09:47-0400 Diastolic blood pressure 77 mm[Hg] Maury Kothari Jr. [facility] 08-18-2021 09:47-0400 Heart rate 63 /min Maury Taye Johnson [facility] 08-18-2021 09:47-0400 Systolic blood pressure 108 mm[Hg] Maury Kothari [facility] 12-30-2018 14:36-0400 BP Diastolic 83 mm[Hg] [place] 12-30-2018 14:36-0400 BP Systolic 134 mm[Hg] [place], [place] 12-30-2018 14:36-0400 Pulse Oximetry 99 % [place], [place] 12-30-2018 14:17-0400 Body Temperature 97.3 [degF] [place], [place] 12-30-2018 14:17-0400 Pulse (Heart Rate) 49 /min [place] 12-30-2018 14:17-0400 Respiratory Rate 22 /min [place], [place] Encounters Encounter Date Encounter Type Care Provider Facility Start: 10-11-2024 End: 10-11-2024 Bamboo flowsheet Mason Membreno MD Work Phone: [facility] Start: 10-11-2024 End: 10-11-2024 Bamboo flowsheet Mason Membreno MD Work Phone: [facility] Start: 10-11-2024 End: 10-11-2024 Office outpatient visit 25 minutes Mason Membreno MD Work Phone: [facility] Comment on above: 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/HCC) (Primary Dx); Chronic kidney disease, stage 3b (HCC) (CMS/HCC); Mixed hyperlipidemia (CMS/HCC) Start: 10-11-2024 End: 10-11-2024 ambulatory MASON MEMBRENO Not Available Start: 08-15-2024 End: 08-15-2024 ambulatory [facility] Start: 07-30-2024 End: 07-30-2024 Clinisync Result Encounter Generic External Data Provider [facility] External Department Unsolicited Start: 07-30-2024 End: 07-30-2024 Clinisync Result Encounter Generic External Data Provider [facility] External Department Unsolicited Start: 07-24-2024 End: 07-24-2024 ambulatory [facility] Start: 07-12-2024 End: 07-12-2024 Bamboo flowsheet Kyrie Carney DPM Work Phone: [facility] Start: 07-12-2024 End: 07-12-2024 Bamboo flowsheet Kyrie Carney DPM Work Phone: [facility] Start: 07-12-2024 End: 07-12-2024 Patient encounter procedure Kyrie Carney DPM Work Phone: [facility] Comment on above: Diabetes mellitus du e to underlying condition with diabetic polyneuropathy, with long-term current use of insulin ([facility]) (Primary Dx); Pain due to onychomycosis of toenails of both feet; Plantar fasciitis; Contracture of right ankle Start: 07-12-2024 End: 07-12-2024 ambulatory KYRIE CARNEY Not Available Start: 07-11-2024 End: 07-11-2024 ambulatory [facility] Start: 07-02-2024 End: 07-02-2024 Bamboo flowsheet [...] long-term current use of insulin (HCC) (CMS/HCC) Start: 02-27-2024 End: 02-27-2024 ambulatory MASON MEMBRENO [...] Office outpatient visit 25 minutes Sophia Zaldivar NP Work Phone: [facility] Comment on above: Acute bronchitis, un specified organism (Primary Dx); Acute cough Start: 02-02-2024 End: 02-02-2024 ambulatory SOPHIA ZALDIVAR Not Available Start: 02-02-2024 End: 02-02-2024 Bamboo flowsheet Sophia Zaldivar BULL DRIVER Work Phone: [facility] Start: 02-02-2024 End: 02-02-2024 Bamboo flowsheet Sophia Zaldivar BULL DRIVER Work Phone: [facility] Start: 01-27-2024 End: 01-27-2024 ambulatory [facility] Work Phone: Start: 01-27-2024 End: 01-27-2024 Patient encounter procedure [facility] Work Phone: Start: 01-13-2024 End: 01-13-2024 ambulatory [facility] Start: 01-12-2024 End: 01-12-2024 Bamboo flowsheet [...] polyneuropathy, with long-term current use of insulin ([facility]); Onychomycosis; Toe pain, bilateral Start: 01-12-2024 End: 01-12-2024 ambulatory KYRIE CARNEY Not Available Start: 01-11-2024 ambulatory HERBERT Robledo lity:[facility] Start: 01-11-2024 End: 01-11-2024 Subsequent hospital visit by physician [facility] (I-Stat/Lg Bore/1.5t) [facility] [...] Start: 01-04-2024 End: 01-04-2024 Telephone encounter Francia Frantzkairn radio talk show host [facility] Comment on above: Orders Start: 12-26-2023 End: 12-26-2023 Office outpatient visit 25 minutes Mason Membreno MD Work Phone: [facility] Comment on above: Hypertrophic cardiom yopathy (CMS/HCC) (Primary Dx) Start: 12-26-2023 End: 12-26-2023 ambulatory MASON MEMBRENO Not Available Start: 12-26-2023 End: 12-26-2023 Bamboo flowspetros Membreno MD Work Phone: [facility] Start: 12-26-2023 End: 12-26-2023 Bamboo flowsheet Masno Membreno MD Work Phone: [facility] Start: 12-02-2023 End: 12-02-2023 ambulatory [facility] Start: 11-24-2023 End: 11-24-2023 ambulatory KYRIE CARNEY Not Available Start: 10-27-2023 End: 10-27-2023 ambulatory KYRIE CARNEY Not Available Start: 10-19-2023 End: 10-19-2023 ambulatory MASON MEMBRENO Not Available Start: 06-16-2023 End: 06-16-2023 ambulatory Kaci Garvin [facility] Other Start: 06-16-2023 Office outpatient vi sit 25 minutes Kaci Torrez [facility] Start: 04-12-2023 End: 04-12-2023 ambulatory Esteban Steward Other [facility] Other Start: 04-12-2023 Office outpatient vi sit 15 minutes Esteban Steward [facility] Start: 04-11-2023 End: 05-09-2023 ambulatory [facility] Start: 02-24-2023 End: 02-28-2023 Evaluation and management of inpatient II Mason Haseeb Work Phone: [facility] Work Phone: Start: 02-22-2023 End: 02-22-2023 ambulatory Kaci Torrez Other [facility] Other Start: 02-22-2023 Office outpatient vi sit 25 minutes Kaci Torrez [facility] Start: 02-18-2023 Telephone encounter Esteban White [facility] Start: 02-18-2023 End: 02-18-2023 Admission to same day surgery center II Mason Membreno Work Phone: [facility] Work Phone: Start: 02-18-2023 End: 02-18-2023 ambulatory II Mason Membreno Work Phone: [facility] Work Phone: Start: 01-11-2023 End: 01-11-2023 ambulatory Esteban Steward Other [facility] Other Start: 01-11-2023 Office outpatient ne w 45 minutes Esteban Steward [facility] Start: 10-27-2022 End: 10-28-2022 ambulatory Francisca Pierre Facility: [facility] Start: 10-27-2022 End: 10-27-2022 Patient encounter procedure Francisca Pierre [facility] Start: 09-21-[address] Mason Membreno II Facility:[id number] Start: 09-12-2022 End: 09-12-[address] MASON MEMBRENO Facility:[facility] Start: 08-27-2022 End: 08-28-[address] MASON MEMBRENO Facility:[facility] Start: 07-06-2022 End: 07-07-2022 ambulatory KYRIE CARNEY Facility:[facility] Start: 05-16-2022 Encounter for other preprocedural examination GERRY WOODALL [facility] Start: 05-13-2022 End: 05-14-2022 ambulatory GERRY WOODALL Facility:[facility] Start: 05-13-2022 End: 05-14-2022 Encounter for other preprocedural examination GERRY WOODALL Facility:[facility] Start: 04-20-2022 End: 04-20-2022 ambulatory Esteban Steward Other [facility] Other Start: 04-20-2022 Office outpatient ne w 45 minutes Esteban Steward [facility] Start: 04-14-2022 End: 04-15-2022 ambulatory APRIL [...] Start: 10-20-2021 End: 10-22-2021 ambulatory TOMAS RAJAN Facility:[facility] Start: 10-16-2021 (URG) Urgent Care Visit Kimberly Suazofilomena alejandre [facility] Start: 10-16-2021 End: 10-16-2021 ambulatory Kimberly Talbot Other [facility] Other Start: 09-30-2021 End: 10-01-2021 ambulatory IZA CASANOVA Facility:[facility] Start: 09-24-2021 End: 09-25-2021 ambulatory IZA CASANOVA Facility:[facility] Start: 08-18-2021 End: 08-18-2021 Patient encounter procedure Maury Kothari Jr. [facility] Start: 12-30-2018 End: 12-30-2018 Emergency department patient visit [facility] Start: 12-30-2018 End: 12-30-2018 Emergency department [facility] Comment on above: Hypoglycemia (Primar y Dx) Start: 09-12-2018 Patient encounter procedure Aashish Kirnus Facility:[id number] Start: 09-11-2018 Patient encounter procedure Aashish Kirnus Facility:[id number] Procedures Date Procedure Procedure Detail Performing Clinician Start: 10-11-2024 Hemoglobin glycosylated a1c Mason copeland MD Work Phone: Start: 07-30-2024 NM JACKIE PERF SPECT REST STR Generic Exter nal Data Provider Start: 06-13-2024 Comprehensive metabolic panel Mason landers MD Work Phone: Start: 06-13-2024 Urine albumin quantitative Mason nam MD Work Phone: Start: 02-27-2024 Hemoglobin glycosylated a1c Mason copeland MD Work Phone: Start: 01-27-2024 Quick Strep (POC) Start: 02-25-2023 X-ray of right knee II Mason Haseeb Work Phone: Start: 02-25-2023 Antibody screen Esteban Steward Comment on above: Order Comment: Transfuse now? Y Number o f units to transfuse now? 2 Transfuse now? Y Number of units to transfuse now? 2 Result Comment: PERF ORMED BY: [facility] [place] [address] PATHOLOGIST [employer] ALEJANDRINA EID M.D. Start: 02-18-2023 Esophagogastroduodenoscopy II [...] 02-18-2033 Screening for malignant neoplasm of colon [facility] Start: 02-24-2027 Urine microalbumin profile DTaP,Tdap,Td Vaccine (2 - Td or Tdap) [facility] Start: 09-14-2026 Diabetes Screening Diabetes Screening [facility] Start: 04-10-2026 Glaucoma screening Diabetes: Retinopathy Screening [facility] Start: 06-13-2025 Urine screening for protein Diabetes: Urine Protein Screening [facility] Start: 03-05-2025 Urine screening for protein Diabetes: Urine Protein Screening [facility] Start: 02-26-2025 Medicare Annual Wellness (AWV) Medicare Annual Wellness (AWV) [facility] Start: 02-12-2025 End: 02-12-2025 Patient encounter procedure 02/12/2025 9:30 AM EDT Office Visit [facility] [address] [facility] [address] [place] [address] Sher White MD [address] [facility] [address] [place] [address] [facility] Start: 02-07-2025 End: 02-07-2025 Patient encounter procedure 02/07/2025 8:30 AM EDT Office Visit [facility] [address] [facility] [address] [place] [address] Mason Membreno MD [address] [facility] 110 [place] [address] [facility] Start: 01-17-2025 Urine screening for protein Diabetes: Urine Protein Screening [facility] Start: 01-11-2025 Hemoglobin A1c measurement Diabetes: Hemoglobin A1C [facility] Start: 01-06-2025 Glaucoma screening Diabetes: Retinopathy Screening [facility] Start: 11-22-2024 Urine screening for protein Diabetes: Urine Protein Screening [facility] Start: 10-18-2024 End: 10-18-2024 Patient encounter procedure 10/18/2024 4:40 PM EDT Office Visit [facility] [address] [facility] [address] [place] [address] Kyrie Carney DPM [address] [facility] [place] [address] [facility] Start: 10-11-2024 End: 10-11-2024 Patient encounter procedure [facility] Comment on above: Arrived Start: 09-20-2024 End: 09-20-2024 Patient encounter procedure 09/20/2024 10:40 AM EDT Office Visit [facility] [address] [facility] [address] [place] [address] Kyrie Carney DPM [address] [facility] [address] [place] [address] [facility] Start: 09-10-2024 Hemoglobin A1c measurement Diabetes: Hemoglobin A1C [facility] Start: 08-03-2024 Urine screening for protein Diabetes: Urine Protein Screening [facility] Start: 07-12-2024 End: 07-12-2024 Patient encounter procedure 07/12/2024 10:50 AM EST Office Visit [facility] [address] [phone] Kyrie Carney DPM [address] [address] Diabetes mellitus due to underlying condition with diabetic polyneuropathy, with long-term current use of insulin ([facility]) (Primary Dx); Pain due to onychomycosis of toenails of both feet; Plantar fasciitis; Contracture of right ankle [facility] Comment on above: Diabetes mellitus due to underlying cond ition with diabetic polyneuropathy, with long-term current use of insulin ([facility]) (Primary Dx); Pain due to onychomycosis of toenails of both feet; Plantar fasciitis; Contracture of right ankle Start: 07-05-2024 End: 07-05-2024 Patient encounter procedure 07/05/2024 10:20 AM EST Office Visit [facility] [address] [phone] Kyrie Carney DPM [address] [address] [facility] PODIATRY Start: 07-02-2024 End: 07-02-2025 Lipid 1996 panel - Serum or Plasma Lipid panel Lab Routine Mixed hyperlipidemia ([facility]) Expected: 07/02/2024 (Approximate), Expires: 07/02/[address] [facility] Work Phone: Comment on above: Expected: 07/02/2024 (Approximate), Expi res: 07/02/2025 Start: 07-02-2024 End: 07-02-2024 Patient encounter procedure [facility] Comment on above: Arrived Start: 05-29-2024 Hemoglobin A1c measurement Diabetes: Hemoglobin A1C [facility] Start: 04-19-2024 End: 04-19-2024 Patient encounter procedure 04/19/2024 10:20 AM EST Office Visit [facility] [address] [facility] [address] [place] [address] Kyrie Carney DPM [address] [address] Pain due to onychomycosis of toenails of both feet (Primary Dx); Plantar fasciitis; Contracture of right ankle [facility] Comment on above: Pain due to onychomycosis of toenails of both feet (Primary Dx); Plantar fasciitis; Contracture of right ankle Start: 03-22-2024 End: 03-22-2024 Patient encounter procedure 03/22/2024 2:10 PM EST Office Visit [facility] [address] [facility] [address] [place] [address] Kyrie Carney DPM [address] [address] [facility] Start: 02-27-2024 End: 02-27-2024 Patient encounter procedure [facility] Comment on above: Arrived Start: 02-17-2024 End: 02-17-2024 Patient encounter procedure 02/17/2024 8:45 AM EDT Office Visit [facility] [address] [facility] [address] [place] [address] Mason Membreno MD [address] [place] [address] [place] [address] [facility] Start: 02-07-2024 End: 02-07-2024 Patient encounter procedure [facility] BHARGAVI Gary B Comment on above: Arrived Start: 02-06-2024 End: 02-06-2024 Patient encounter procedure [facility] Comment on above: Arrived Start: 02-02-2024 End: 02-02-2024 Patient encounter procedure 02/02/2024 2:30 PM EDT Office Visit [facility] [address] [place] [address] [place] [address] Sophia Zaldivar BULL DRIVER [address] [place] [address] [place] [address] Arrived [facility] Comment on above: Arrived Start: 01-12-2024 End: 01-12-2024 Patient encounter procedure [facility] Comment on above: Plantar fasciitis (Primary Dx); Contracture of right ankle; Diabetes mellitus due to underlying condition with diabetic polyneuropathy, with long-term current use of insulin ([facility]); Onychomycosis; Toe pain, bilateral Start: 01-11-2024 End: 01-11-2024 Patient encounter procedure 01/11/2024 3:00 PM EDT Appointment [facility] [address] [place] [address] ZL/ MRI CARDIAC MORPHOLOGY AND FUNCTION W/WO IV CONTRAST [facility] Comment on above: ZL/ MRI CARDIAC MORPHOLOGY AND FUNCTION W/WO IV CONTRAST Start: 01-08-2024 Covid-19 Vaccine ( season) Covid-19 Vaccine ( season) [facility] Start: 01-08-2024 Influenza vaccination Influenza Vaccine (#1) [facility] Start: 01-05-2024 End: 01-05-2024 Patient encounter procedure 01/05/2024 3:15 PM EDT Office Visit [facility] [address] [place] [address] [place] [address] Mason Membreno MD [address] [place] [address] [place] [address] Arrived [facility] Comment on above: Arrived Start: 12-26-2023 End: 12-26-2023 Patient encounter procedure 12/26/2023 3:30 PM EDT Office Visit [facility] [address] [place] [address] [place] [address] Mason Membreno MD [address] [facility] [address] [place] [address] Arrived [facility] Comment on above: Arrived Start: 12-16-2023 Hemoglobin A1c measurement Diabetes: Hemoglobin A1C [facility] Start: 11-25-2023 Medicare Annual Wellness (AWV) Medicare Annual Wellness (AWV) [facility] Start: 05-09-2023 Advance Directive Discussion Advance Directive Discussion [facility] Start: 02-28-2023 [facility] Start: 02-25-2023 Sleep disorder assessment [facility] Start: 02-24-2023 Hospital admission [facility] Start: 02-24-2023 Referral to aviation technical systems specialist [facility] Start: 02-24-2023 [facility] Start: 02-18-2023 [facility] Start: 01-07-2023 Covid-19 Vaccine ( season) Covid-19 Vaccine ( season) [facility] Start: 10-18-2022 ambulatory Ambulatory Facility: Start: 09-27-2022 Diabetes Screening Diabetes Screening [facility] Start: 02-24-2022 Pneumococcal Vaccine: 65+ Years (3 of 3 - PCV20 or PCV21) Pneumococcal Vaccine: 65+ Years (3 of 3 - PCV20 or PCV21) [facility] Start: 07-09-2019 Pneumococcal Vaccine: 65+ Years (3 of 3 - PPSV23 or PCV20) Pneumococcal Vaccine: 65+ Years (3 of 3 - PPSV23 or PCV20) [facility] Start: 01-07-2019 Influenza vaccination Flu vaccine (#1) [place], [place] Start: 2017 Pneumococcal 65+ years Vaccine (1 of 2 - PCV13) Pneumococcal 65+ years Vaccine (1 of 2 - PCV13) [place] Start: 2017 Pneumococcal Vaccine: 65+ (1 of 1 - PCV) Pneumococcal Vaccine: 65+ (1 of 1 - PCV) [facility] Start: 2012 RSV Vaccine (1 - 1-dose 60+ series) RSV Vaccine (1 - 1-dose 60+ series) [facility] Start: 2002 Shingrix Vaccine (1 of 2) Shingrix Vaccine (1 of 2) [facility] Start: 1997 Screening for malignant neoplasm of colon [facility] Start: 11-05-1987 Lipid panel Lipid Screening [facility] Start: 11-05-1971 Urine microalbumin profile DTaP,Tdap,Td Vaccine (1 - Tdap) [facility] Start: 1970 Anxiety Screening Anxiety Screening [facility] Start: 1970 Depression Screening Depression Screening [facility] Start: 1970 Hepatitis C screening Hepatitis C Screening [facility] Start: 1952 Screening for malignant neoplasm of colon [facility] Patient Education Gastrointestin al Bleeding [facility] Work Phone: Patient referral [facility] Work Phone: Prostate specific Ag [Mass/volume] in Serum or Plasma PSA Lab Routine Prostate cancer screening Ordered: 07/02/[address] [facility] Comment on above: Ordered: 07/02/2024 Immunizations Immunization Date Immunization Notes Care Provider [facility] 03-05-2024 ABRYSVO - Respirator y syncytial virus (RSV), vaccine, bivalent, protein subunit RSV prefusion F, diluent reconstituted, 0.5 mL, PF Mason Membreno MD Work Phone: [facility] 02-27-2024 Influenza, High-dose Seasonal, Quadrivalent, Preservative Free Mason Membreno MD Work Phone: [facility] 06-23-2023 SARS-COV-2 (COVID-19 ) vaccine, mRNA, spike protein, LNP, PF, bindu-sucrose, 30 mcg/0.3 mL Mason Membreno MD Work Phone: [facility] 04-04-2023 Influenza, High-dose Seasonal, Quadrivalent, Preservative Free Mason Membreno MD Work Phone: [facility] 04-04-2023 influenza virus vacc ine, unspecified formulation Mason Membreno MD Work Phone: [facility] 03-27-2022 SARS-CoV-2 (COVID-19 ) [id number] Francisca Ignacio [facility] 03-22-2022 influenza virus vacc ine, unspecified formulation Francisca Lue [facility] 03-22-2022 influenza, high dose seasonal, preservative-free Mason Membreno MD Work Phone: [facility] 08-25-2021 SARS-CoV-2 (COVID-19 ) mRNA-1273 vaccine Francisca Lue [facility] 03-13-2021 Moderna SARS-CoV-2 Vaccination Mason Membreno MD Work Phone: [facility] 02-09-2021 influenza, high dose seasonal, preservative-free Mason Membreno MD Work Phone: [facility] 02-06-2021 influenza virus vacc ine, unspecified formulation Francisca Lue [facility] 07-18-2020 SARS-CoV-2 (COVID-19 ) mRNA-1273 vaccine Francisca Lue [facility] 06-25-2020 SARS-CoV-2 (COVID-19 ) mRNA-1273 vaccine Francisca Lue [facility] 02-25-2020 influenza virus vacc ine, unspecified formulation Francisca Lue [facility] 02-25-2020 influenza, seasonal, injectable Mason Membreno MD Work Phone: [facility] 02-12-2020 influenza virus vacc ine, unspecified formulation Francisca Lue [facility] 02-12-2020 influenza, high dose seasonal, preservative-free Mason Membreno MD Work Phone: [facility] 03-12-2019 influenza virus vacc ine, unspecified formulation Francisca Lue [facility] 03-12-2019 influenza, high dose seasonal, preservative-free Mason Membreno MD Work Phone: [facility] 04-10-2018 zoster vaccine recombinant Francisca Lue [facility] 02-08-2018 influenza virus vacc ine, unspecified formulation Francisca Lue [facility] 02-08-2018 influenza, high dose seasonal, preservative-free Mason Membreno MD Work Phone: [facility] 02-24-2017 pneumococcal conjuga te vaccine, 13 valent Francisca Lujann [facility] 02-24-2017 tetanus toxoid, redu bob diphtheria toxoid, and acellular pertussis vaccine, adsorbed Francisca Lue [facility] 02-23-2017 influenza virus vacc ine, unspecified formulation Francisca Lue [facility] 02-23-2017 seasonal influenza, intradermal, preservative free Mason Membreno MD Work Phone: [facility] 12-23-2014 influenza virus vacc ine, unspecified formulation Francisca Lue [facility] 12-23-2014 influenza, injectabl e, quadrivalent, preservative free Mason Membreno MD Work Phone: [facility] 07-08-2014 pneumococcal polysaccharide vaccine, 23 valent Mason Membreno MD Work Phone: [facility] 03-11-2014 influenza virus vacc ine, split virus (incl. purified surface antigen) Mason Membreno MD Work Phone: [facility] Payers Date Payer Category Payer Self-pay [id number] 2022 Private Health Insurance [id number] 2018 Medicare MEDICARE MEDICAR E PART A AND B xxxxxxxxxxx 2018-Present [phone] [address] [address] [place] [address] xxxxxxxxxxx [id number] 2018 Private Health Insurance [id number] 2018 Private Health Insurance AETNA AETNA NAP CHOICE POS II xxxxxxxxxx 2018-Present [phone] [address] [place] [address] xxxxxxxxxx [id number] [id number] 2017 Medicare [id number] 1959 Medicare [id number] 1959 Private Health Insurance [id number] 1959 Self-pay [id number] 1952 Unknown [id number] 2.16.840.1.990894.3.579. 2.8 1952 Unknown [id number] 2.16.840.1.337746.3.579. 2.1068 1952 Unknown [id number] 2.16.840.1.475203.3.579. 2.173 1952 Unknown [id number] 2.16.840.1.736281.3.579. 2.647 1952 Unknown [id number] 2.16.840.1.576865.3.579. 2.647 1952 Unknown [id number] 2.16.840.1.700276.3.579. 2.593 1952 Unknown [id number] 2.16.840.1.792238.3.579. 2.593 1952 Unknown [id number] 2.16.840.1.530966.3.579. 2.593 1952 Unknown [id number] 2.16.840.1.766892.3.579. 2.593 1952 Unknown [id number] 2.16.840.1.660743.3.579. 2.593 1952 Unknown [id number] 2.16.840.1.684118.3.579. 2.593 1952 Unknown [id number] 2.16.840.1.049572.3.579. 2.593 1952 Unknown [id number] 2.16.840.1.065367.3.579. 2.593 1952 Unknown [id number] 2.16.840.1.248644.3.579. 2.593 1952 Unknown [id number] 2.16.840.1.091377.3.579. 2.593 1952 Unknown [id number] 2.16.840.1.181455.3.579. 2.593 1952 Unknown [id number] 2.16.840.1.536341.3.579. 2.593 1952 Unknown [id number] 2.16.840.1.686690.3.579. 2.593 1952 Unknown [id number] 2.16.840.1.468987.3.579. 2.356 1952 Unknown [id number] 2.16.840.1.198507.3.579. 2.727 1952 Unknown [id number] 2.16.840.1.151677.3.579. 2.727 1952 Unknown [id number] 2.16.840.1.747787.3.579. 2.1286 1952 Unknown [id number] 2.16.840.1.911001.3.579. 2.1259 1952 Unknown [id number] 2.16.840.1.789844.3.579. 2.1259 1952 Unknown [id number] 2.16.840.1.403156.3.579. 2.1259 1952 Unknown [id number] 2.16.840.1.080697.3.579. 2.125 1952 Unknown [id number] 2.16.840.1.969363.3.579. 2.1259 1952 Unknown [id number] 2.16.840.1.571979.3.579. 2.125 1952 Unknown [id number] 2.16.840.1.449975.3.579. 2.1259 1952 Unknown [id number] 2.16.840.1.112776.3.579. 2.1259 1952 Unknown [id number] 2.16.840.1.322687.3.579. 2.1259 1952 Unknown [id number] 2.16.840.1.827147.3.579. 2.1259 1952 Unknown [id number] 2.16.840.1.415109.3.579. 2.125 1952 Unknown [id number] 2.16.840.1.913138.3.579. 2.125 1952 Unknown [id number] 2.16.840.1.495923.3.579. 2.1259 1952 Unknown [id number] 2.16.840.1.571242.3.579. 2.1259 Unknown [facility] 1014 [id number] Unknown [id number] 2.16.840.1.362979.3.579. 2.531 Unknown [id number] 2.16.840.1.538341.3.579. 2.531 Social History Date Type Detail Facility Start: 12-30-2018 Tobacco smoking stat [facility]IS Current every day smoker [place], [place] Start: 12-30-2018 End: 10-11-2024 Alcohol intake Not Currently [place], [place] Start: 1950 Sex Assigned At Not on file M [place] Start: 08-18-2021 End: 10-06-2022 Tobacco smoking status Never smoked tobacco (finding) [facility] Tobacco smoking status Never [facility] Start: 1950 Sex Assigned At Male F [facility] Start: 02-21-2013 Alcoholic beverage intake Current non-drinker of alcohol (finding) [facility] Start: 04-16-2020 End: 10-11-2024 History of Social function [facility] Start: 10-06-2022 Tobacco use and exposure Smokeless tobacco non-user [facility] Start: 02-06-2024 End: 10-11-2024 Alcoholic beverage intake Lifetime non-drinker (finding) [facility] How often to you hav e a drink containing alcohol? Never [facility] Start: 03-24-2023 Alcohol Comment caffeine yes t ype : soda [facility] Medical Equipment Procedure Code Equipment Code Equipment Original Text Equi pment Identifier Dates One Touch Lancets Goals Date Patient Goal Desired Activity /State Functional Status Date Assessment Result Facility 10-11-2024 Patient Health [facility] ionnaire 2 item (PHQ-2) [Reported] [facility] 02-28-2023 Functional status Patient at Baseline [facility] Work Phone: 10-27-2022 Functional Status N/A [facility] Mental Status Date Assessment Result Facility 02-28-2023 Cognitive function Cognitive Sta tus Patient at Baseline [facility] Work Phone: Clinical Notes 08-18-2021 to 10-11-2024 Mason Membreno MD - 10/11/2024 8:30 AM Maddie Carney DPM - 07/12/2024 10:50 AM Eamon Membreno MD - 07/02/2024 9:00 AM Gage Carney DPM - 04/19/2024 10:20 AM ESTPatient Instructions Note Date & Type Note Facility 10-11-2024 History of Present illness Narrative Images from the original note were not included. HPI Results Additional comments: Labs 07/2024 Last edited by Jen Bartholomew LPN on 10/11/2024 8:43 AM. Subjective Patient ID: Maury Issa is a 73 y.o. male who presents for Diabetes, Results (Labs 07/2024), and Extremity Weakness. WEAKNESS IN LEGS Diabetes Mellitus Patient presents for follow up of diabetes. Current symptoms include: hypoglycemia. Patient denies foot ulcerations, paresthesia of the feet, polydipsia, polyuria, visual disturbances, and vomiting. Evaluation to date has included: fasting blood sugar, fasting lipid panel, hemoglobin A1C, and microalbuminuria. Home sugars: BGs have been ranging between 90 and 120 Hypertension Patient is here for follow-up of elevated blood pressure. Blood pressure is not well controlled at home. Cardiac symptoms: none. Patient denies chest pain, claudication, exertional chest pressure/discomfort, fatigue, irregular heart beat, near-syncope, orthopnea, palpitations, paroxysmal nocturnal dyspnea, syncope, and tachypnea. Cardiovascular risk factors: advanced age (older than 55 for men, 65 for women), diabetes mellitus, hypertension, and male gender. Pt has been having issues with legs feeling weak when he stands up states after a few minutes it goes away this started about 3 weeks ago Pt had back injection 09/08/24 Diabetes Hypoglycemia symptoms include headaches. Pertinent negatives [...] tablet 3 ergocalciferol (Vitamin D-2) 1.25 MG (75813 UT) capsule Take 1 capsule by mouth [...] mouth every 8 (eight) hours if needed pantoprazole (Protonix) 40 MG EC tablet Take 1 tablet (40 mg) by mouth in the morning and at noon. Do not crush, chew, or split. 180 tablet 3 prednisoLONE acetate (Pred-Forte) 1 % ophthalmic suspension [...] KNEE ARTHROPLASTY Right 10/08/2019 Visit Vitals BP 122/64 Pulse 63 Ht 5' 8 Wt 198 lb SpO2 96% BMI 30.11 kg/m Smoking Status Never BSA 2.08 m Review of Systems Respiratory: Negative for [...] normal. Judgment: Judgment normal. Office Visit on 07/02/2024 Component Date Value Ref Range Status HEMOGLOBIN A1C 06/13/2024 6.0 Final MICROALBUMIN, URINE 06/13/2024 48 Final ALB/CREAT RATIO 06/13/2024 528 Final URINE CREAT 06/13/2024 91 Final CREATININE 06/13/2024 2.5 Final EGFR 06/13/2024 27 Final BUN 06/13/2024 43 Final Sodium 06/13/2024 138 Final POTASSIUM 06/13/2024 4.9 Final ALBUMIN LEVEL 06/13/2024 4.3 Final PSA, TOTAL 07/11/2024 1.12 < OR = 4.00 ng/mL Final Comment: The total PSA value from this [...] of the presence or absence of disease. CHOLESTEROL, TOTAL 07/11/2024 146 <200 mg/dL Final HDL CHOLESTEROL 07/11/2024 30 (L) > OR = 40 mg/dL Final TRIGLYCERIDES 07/11/2024 226 (H) <150 mg/dL Final Comment: If a non-fasting specimen was collected, consider repeat triglyceride testing on a fasting specimen if clinically indicated. Dale et al. J. of Clin. Lipidol. 2015;9:129-169. LDL-CHOLESTEROL 07/11/2024 85 mg/dL (calc) Final Comment: Reference range: <100 Desirable range <100 mg/dL for primary prevention; <70 mg/dL for patients with CHD or diabetic patients with > or = 2 CHD risk factors. LDL-C is now calculated using the Eleazar calculation, which is a validated novel method providing better accuracy than the Friedewald equation in the estimation of LDL-C. Alessandro ECHAVARRIA et al. AMANDA. 2013;310(19): 8164-5246 (http://education.Shopo.com/faq/FFM410) CHOL/HDLC RATIO 07/11/2024 4.9 <5.0 (calc) Final NON HDL CHOLESTEROL 07/11/2024 116 <130 mg/dL (calc) Final Comment: For patients with diabetes plus 1 major ASCVD risk factor, treating to a non-HDL-C goal of <100 mg/dL (LDL-C of <70 mg/dL) is considered a therapeutic option. Assessment/Plan Diagnoses and all orders for this visit: Type 2 diabetes mellitus with stage 3b chronic kidney disease, with long-term current use of insulin (HCC) ([facility]/HCC) - FSBS log shows good control, most recent A1C is below goal. Reduce Lantus to 10 units daily if still having hypos, stop it. Chronic kidney disease, stage 3b (HCC) ([facility]) - The patient is seeing a medical billing and coding instructor for this condition, treatment is deferred to that specialist. Correspondence from that specialist and any available testing were reviewed during today's visit. Mixed hyperlipidemia ([facility] [facility] - Recent lab work for this condition was reviewed and discussed with the patient. Labs are at or near goal, no changes to medication are planned. Follow up in about 4 months (around 02/10/2025) for DM- A1C. documented in this encounter [facility] 08-15-2024 Note [facility] Cardiology Clinic Note Chief Complaint: Patient states he is here for 4 week follow up. Patient states he had an Echo, Carotid. Patient states he has been feeling his heart racing x 3 different episodes, one July and 2 in August patient states 86, 88 and 97 per his blood pressure monitor. Patient felt dizzy at the time his heart was racing. SOB when he walks fast. HPI: Maury Issa is a 73 y.o. male With a history of coronary artery disease, prior PCI, longstanding diabetes and paroxysmal atrial fibrillation here for follow-up after recent testing His main concern relates to postural lightheadedness. It can occur when playing pool. He feels lightheaded. No presyncope. No dizziness. No significant palpitations. At other times, he does have palpitations and his heart rate is in the 80s to 90s. No exertional chest pain. His exertional chest pressure/shortness of breath is stable. No orthopnea, no paroxysmal tunnel dyspnea, no lower extremity edema. Review of Systems Cardiovascular: Positive for dyspnea on exertion (when walking quickly). Cardiology ROS: GENERAL: Denies fever, chills, night sweats, weight loss. HEENT: Denies changes in vision, photophobia, changes in hearing, epistaxis, oral bleeding. CARDIOVASCULAR: Denies chest pain, exertional dyspnea, orthopnea/PND, lower extremity edema, palpitations, lightheadedness/dizziness. RESPIRATORY: Denies SOB, coughing, wheezing GI: Denies abdominal pain, nausea/vomiting, heartburn, melena/hematochezia. RENAL: Denies dysuria, hematuria, flank pain. MSK: Denies muscle weakness/pain, arthralgias/joint pain. NEUROLOGIC: Denies LOC, weakness, numbness, headaches. SKIN: Denies abnormal rashes or bleeding. PSYCH: Denies significant anxiety, depression, sleep disturbances. Past Medical History He has a past medical history of Acromioclavicular separation, Atrial fibrillation ([facility]), Chronic kidney disease, Coronary artery disease, Diabetes mellitus ([facility]), GERD (gastroesophageal reflux disease), Heart disease (), Hypertension, Rotator cuff syndrome, and Sleep apnea. Surgical History He has a past surgical history that includes Cardiac catheterization; Coronary stent placement; Total knee arthroplasty; Hand surgery; Shoulder surgery; Cardioversion; Ankle arthroplasty; and Rotator cuff repair (1997). Social History He reports that he has never smoked. He has never used smokeless tobacco. He reports that he does not currently use alcohol. He reports that he does not use drugs. Family History Family History Problem Relation Name Age of Onset Heart attack Brother Allergies Aspartame, Imdur [isosorbide mononitrate], and Isosorbide Medications Current Outpatient Medications: aspirin 81 mg EC tablet, Take 1 tablet (81 mg) by mouth in the morning., Disp: 90 tablet, Rfl: 3 atorvastatin (Lipitor) 40 mg tablet, Take 40 mg by mouth at bedtime., Disp: , Rfl: citalopram (CeleXA) 20 mg tablet, Take 20 mg by mouth in the morning., Disp: , Rfl: Eliquis 5 mg tablet, Take 1 tablet (5 mg) by mouth in the morning and at bedtime., Disp: 180 tablet, Rfl: 3 empagliflozin (Jardiance) 25 mg, Continue home prescription dose of 1/2 tablet daily. (Patient taking differently: Take 12.5 mg by mouth 1 (one) time each day. Continue home prescription dose of 1/2 tablet daily.), Disp: 30 tablet, Rfl: 0 finasteride (Proscar) 5 mg tablet, Take 5 mg by mouth at bedtime. Do not crush, chew, or split., Disp: , Rfl: gabapentin (Neurontin) 300 mg capsule, TAKE 1 CAPSULE BY MOUTH EVERYDAY AT BEDTIME, Disp: , Rfl: insulin glargine (Lantus) 100 unit/mL injection, Inject 35 Units under the skin in the morning., Disp: , Rfl: lisinopril 20 mg tablet, Take 40 mg by mouth in the morning., Disp: , Rfl: metoprolol tartrate (Lopressor) 50 mg tablet, Take 50 mg by mouth two times daily., Disp: , Rfl: nitroglycerin (Nitrostat) 0.4 mg SL tablet, Place 0.4 mg under the tongue every 5 (five) minutes if needed for chest pain., Disp: , Rfl: pantoprazole (ProtoNix) 40 mg EC tablet, pantoprazole 40 mg tablet,delayed release TAKE 1 TABLET BY MOUTH EVERY DAY, Disp: , Rfl: ranolazine (Ranexa) 500 mg 12 hr tablet, Take 1 tablet (500 mg) by mouth in the morning and at bedtime. Do not crush, chew, or split., Disp: 180 tablet, Rfl: 3 semaglutide (Ozempic) 1 mg/dose (2 mg/1.5 mL) pen injector, 0.5 mg 1 (one) time per week. tuesday, Disp: , Rfl: spironolactone (Aldactone) 25 mg tablet, Take 25 mg by mouth in the morning., Disp: , Rfl: tamsulosin (Flomax) 0.4 mg 24 hr capsule, tamsulosin 0.4 mg capsule TAKE 1 CAPSULE BY MOUTH ONCE DAILY, Disp: , Rfl: Last Recorded Vitals BP 113/77 (BP Location: Left arm, Patient Position: Sitting) Pulse 54 Ht 1.727 m (5' 8 ) Wt 92.1 kg (203 lb) SpO2 96% BMI 30.87 kg/m??? Physical Examination: GENERAL: alert and oriented x3, well developed, in no acute distress. HEAD: atraumatic, norm (more content not included)... [facility] 07-24-2024 Note Cardiovascular Medic ine [facility] SUBJECTIVE Chief Complaint Patient presents with [...] few minutes then resolved on its own. Byars like an achy pain. He thinks he [...] or radiculopathy Constipation Coronary artery disease involving [place] coronary artery of [place] heart with angina pectoris Deformity of metatarsal Depressive disorder Deviated nasal septum Type 2 diabetes mellitus without complication ([facility]/HCC) Diabetic mononeuropathy ([facility]/HCC) Diabetic renal disease ([facility]) Diverticular disease of colon Dyspnea on exertion Dysuria Edema of both lower extremities Edema of lower extremity Benign essential tremor Morbid (severe) obesity with alveolar hypoventilation ([facility]) GERD (gastroesophageal reflux disease) Acute stress reaction Microhematuria Elevated PSA History of DVT (deep vein thrombosis) Heart disease LVH (left ventricular hypertrophy) due to hypertensive disease, without heart failure Type 2 diabetes mellitus with hyperglycemia ([facility]) Incomplete bladder emptying Frequent urination Head injury Leukocytosis snf current use of insulin ([facility]) Major depressive disorder, single episode, unspecified Migraine Mild intermittent asthma Mixed hyperlipidemia Nasal obstruction Nocturia Reactive airway disease Paroxysmal atrial fibrillation ([facility]) Polyneuropathy Weak urinary stream Osteoarthritis of right knee RLS (restless legs syndrome) Cervical stenosis of spine Stage 3 chronic kidney disease ([facility]) Urge incontinence Urinary urgency Abnormal stress test Stable angina Obesity with body mass index 30 or greater Diverticulitis Lower urinary tract symptoms due to benign prostatic hyperplasia Anticoagulated Atypical small acinar proliferation of prostate Bilateral varicoceles Contracture, right ankle Diabetic nephropathy with proteinuria ([facility]) Disturbance in sleep behavior Diverticulosis of large intestine without hemorrhage Edema Glucosuria Headaches, cluster Indigestion LLQ pain Neuropathy due to type 2 diabetes mellitus ([facility]/HCC) Osteoarthritis of right foot Peripheral venous insufficiency Renal cyst Sacroiliitis Testicular pain B12 deficiency Diabetes mellitus ([facility]) Disorder of the skin and subcutaneous tissue, unspecified H/O: osteoarthritis Hyperopia Nuclear sclerotic cataract Obstructive sleep apnea syndrome Encounter for immunization Presbyopia Sensorineural hearing loss, bilateral Tinnitus Tremor Vitamin D deficiency Encounter for fitting and adjustment of hearing aid Exposure to potentially hazardous substance Idiopathic chronic pancreatitis ([facility]) Hypertensive urgency Melena NSTEMI (non-ST elevated myocardial infarction) ([facility]) Vitreous degeneration, left eye Primary [...] Allergies Allergen R (more content not included)... [facility] 07-24-2024 Note Patient here c/o diz [...] All other systems reviewed and are negative. [facility] 07-12-2024 History of Present illness Narrative Patient: Maury Issa : 1950 [...] Nasal obstruction Non-STEMI (non-ST elevated myocardial infarction) ([facility]) 02/2017 ABEL on CPAP 2009 Pain management Renal artery stenosis ([facility]) 03/2016 right Testicular pain 02/15/2022 [...] Rfl: 3 ergocalciferol (Vitamin D-2) 1.25 MG (74503 UT) capsule, Take 1 capsule by mouth [...] Partner Violence: Unknown (06/30/2023) Received from [facility] [place] [facility] Fear of Current [...] and negative PT pedal pulses NEURO: 5.07 [place] monofilament test intact to digits and forefoot bilaterally 125Hz tuning fork diminished to 1st MPJ bilaterally ORTHO: Positive pain on palpation to toenails of the left 1,2,3,4,5 toes and right 1,2,3,4,5 toes Negative pain on palpation right medial calcaneal tubercle ASSESSMENT 1. Diabetes mellitus due to underlying condition with diabetic polyneuropathy, with long-term current use of insulin ([facility]) 2. Pain due to onychomycosis of toenails of both feet 3. Plantar fasciitis 4. Contracture of right ankle PLAN Debride nails in length and thickness digits 1 through 10 Kyrie Carney DPM documented in this encounter [facility] 07-11-2024 Note Cardiovascular Medic [facility] SUBJECTIVE Chief Complaint Patient presents with [...] or radiculopathy Constipation Coronary artery disease involving [place] coronary artery of [place] heart with angina pectoris Deformity of metatarsal [...] failure Type 2 diabetes mellitus with hyperglycemia ([facility]) Incomplete bladder emptying Frequent urination Head injury Leukocytosis snf current use of insulin ([facility]) Major depressive disorder, single episode, unspecified Migraine Mild intermittent asthma Mixed hyperlipidemia Nasal obstruction Nocturia Reactive airway disease Paroxysmal atrial fibrillation ([facility]) Polyneuropathy Weak urinary stream Osteoarthritis of right knee RLS (restless legs syndrome) Cervical stenosis of spine Stage 3 chronic kidney disease ([facility]) Urge incontinence Urinary urgency Abnormal stress test Stable angina Obesity with body mass index 30 or greater Diverticulitis Lower urinary tract symptoms due to benign prostatic hyperplasia Anticoagulated Atypical small acinar proliferation of prostate Bilateral varicoceles Contracture, right ankle Diabetic nephropathy with proteinuria ([facility]) Disturbance in sleep behavior Diverticulosis of large intestine without hemorrhage Edema Glucosuria Headaches, cluster Indigestion LLQ pain Neuropathy due to type 2 diabetes mellitus ([facility]/HCC) Osteoarthritis of right foot Peripheral venous insufficiency Renal cyst Sacroiliitis Testicular pain B12 deficiency Diabetes mellitus ([facility]) Disorder of the skin and subcutaneous tissue, unspecified H/O: osteoarthritis Hyperopia Nuclear sclerotic cataract Obstructive sleep apnea syndrome Encounter for immunization Presbyopia Sensorineural hearing loss, bilateral Tinnitus Tremor Vitamin D deficiency Encounter for fitting and adjustment of hearing aid Exposure to potentially hazardous substance Idiopathic chronic pancreatitis (CMS/HCC) Hypertensive urgency Melena NSTEMI (non-ST elevated myocardial infarction) ([facility]) Vitreous degeneration, left eye Primary [...] 2.11 m??? Medication (more content not included)... [facility] 07-11-2024 Note Patient here for 6 [...] All other systems reviewed and are negative. [facility] 07-02-2024 History of Present illness Narrative Images from the original note [...] tablet 3 ergocalciferol (Vitamin D-2) 1.25 MG (23524 UT) capsule Take 1 capsule by mouth [...] - The patient is seeing a medical billing and coding instructor for this condition, treatment is deferred to [...] Review, DM- A1C. documented in this encounter [facility] 04-19-2024 History of Present illness Narrative Patient: Maury Issa : 1950 [...] Rfl: 3 ergocalciferol (Vitamin D-2) 1.25 MG (46881 UT) capsule, Take 1 capsule by mouth [...] Partner Violence: Unknown (06/30/2023) Re[facility] from [facility] [place] [facility] Fear of Current [...] and negative PT pedal pulses NEURO: 5.07 [place] monofilament test intact to digits and [...] Kyrie Carney DPM documented in this encounter [facility] 02-27-2024 History of Present illness Narrative Images from the original note [...] tablet 3 ergocalciferol (Vitamin D-2) 1.25 MG (72289 UT) capsule Take 1 capsule by mouth [...] Do you have a medical power of commercial attorney?: No Objective : BP 122/72 Pulse [...] need - Influenza, high-dose seasonal, quadrivalent, PF (NRA061) (Fluzone High Dose [place] 0.7mL dose) Type 2 diabetes mellitus with stage 3b chronic kidney disease, with long-term current use of insulin (HCC) ([facility]) - POCT Glycated hemoglobin, total Follow up in about 4 months (around 06/29/2024) for Routine F/U. Orders Placed This Encounter Procedures Influenza, high-dose seasonal, quadrivalent, PF (YTP265) (Fluzone High Dose [place] 0.7mL dose) POCT Glycated hemoglobin, total Electronically signed by Mason Membreno MD on February 27, 2024 documented in this encounter [facility] 02-07-2024 History of Present illness Narrative Associated Problem(s): ABEL (obstructive sleep [...] Semeiology Circadian Noct oxim PSG ([place]) - ([place], split) - AHI=76 (interp only). PAPT ([place]) - AHI=0 @ 14 (no supine), =0 @ 15 (REM, no supine) =1.0 @ 16 (supine and REM) ([place]) - AHI=0 @ 17-18 (no supine), first [...] hypertrophy) 2015 Mild dilation of ascending aorta ([facility]/HCC) Nasal obstruction Non-STEMI (non-ST elevated myocardial infarction) ([facility]) 02/2017 ABEL on CPAP 2009 Pain management Renal artery stenosis ([facility]) 03/2016 right Testicular pain 02/15/2022 [...] in the morning. 90 tablet 3 Dextromethorphan-Pyrilamine (Kamuela DM) 7.5-7.5 MG/5ML liquid Take 10 mL [...] tablet 3 ergocalciferol (Vitamin D-2) 1.25 MG (26503 UT) capsule Take 1 capsule by mouth [...] Sher White M.D. documented in this encounter [facility] 02-06-2024 History of Present illness Narrative Images from the original note [...] in the morning. 90 tablet 3 Dextromethorphan-Pyrilamine (Kamuela DM) 7.5-7.5 MG/5ML liquid Take 10 mL [...] tablet 3 ergocalciferol (Vitamin D-2) 1.25 MG (02957 UT) capsule Take 1 capsule by mouth [...] F/U med changes. documented in this encounter [facility] 02-02-2024 History of Present illness Narrative Images from the original note were not included. Subjective Patient ID: Maury Issa is a 73 y.o. male who presents for a cold he has had He states he has a cough, headaches since the . [facility] to [facility] and they tested him as everything came [...] tablet 3 ergocalciferol (Vitamin D-2) 1.25 MG (38299 UT) capsule Take 1 capsule by mouth [...] Nasal obstruction Non-STEMI (non-ST elevated myocardial infarction) ([facility]) 02/2017 ABEL on CPAP 2009 [...] its most common side effects. - Dextromethorphan-Pyrilamine (Kamuela DM) 7.5-7.5 MG/5ML liquid; Take 10 mL by mouth 4 (four) times a day as needed (cough and congestion) for up to 10 days Dispense: 473 mL; Refill: 0 No follow-ups on file. documented in this encounter [facility] 02-02-2024 Instructions Sophia Zaldivar NP - 02/02/2024 2:30 PM EDT Cefdinir added x 10 days Kamuela DM added as needed documented in this encounter [facility] 01-13-2024 Note Cardiovascular Medic [facility] SUBJECTIVE HPI PMHx: CAD s/p [place] to LAD 10/2021, a.fib, HTN, DM type II, CKD III, ABEL on CPAP Patient presents today for follow-up. Maury Issa is a 73 y.o. male here for follow-up cardiac MRI performed at [facility] on 01/11/2024. Says he's had some dizziness [...] or radiculopathy Constipation Coronary artery disease involving [place] coronary artery of [place] heart with angina pectoris (CMS/HCC) Deformity of [...] bladder emptying Frequent urination Head injury Leukocytosis exterminator termite current use of insulin (CMS/HCC) Major depressive [...] (CMS/HCC) Testicular pain B12 deficiency Diabetes mellitus (CMS/HCC) Disorder of the skin and subcutaneous tissue, unspecified H/O: osteoarthritis Hyperopia Nuclear sclerotic cataract Obstructive sleep apnea syndrome Encounter for immunization Presbyopia Sensorineural hearing loss, bilateral Tinnitus Tremor Vitamin D deficiency Encounter for fitting and adjustment of hearing aid Exposure to potentially hazardous substance Idiopathic chronic pancreatitis (CMS/HCC) Hypertensive urgency Melena NSTEMI (non-ST elevated myocardial infarction) ([facility]/HCC) Vitreous degeneration, left eye Primary localized osteoarthrosis of ankle and foot Diarrhea Past Medical History: Diagnosis Date Acromioclavicular separation Atrial fibrillation (CMS/HCC) Chronic kidney disease Coronary artery disease Diabetes mellitus (CMS/HCC) GERD (gastroesophageal reflux disease) Heart disease - [...] , Rfl: carvedilol (more content not included)... [facility] 01-12-2024 History of Present illness Narrative Patient: Maury Issa : 1950 [...] 2011 AND PROSTATITIS OBSTRUCTION Bradycardia 11/20/2021 Depression ([facility]) Deviated nasal septum Diabetes mellitus ([facility]) Edema GERD (gastroesophageal reflux disease) Hx of echocardiogram 03/09/2016 ECHO EF 60-65% Hypertension ([facility]) Hypotension due to medication LVH (left ventricular hypertrophy) 2015 Mild dilation of ascending aorta ([facility]) Nasal obstruction Non-STEMI (non-ST elevated myocardial infarction) ([facility]) 02/2017 ABEL on CPAP 2009 Pain management Renal artery stenosis ([facility]) 03/2016 right Testicular pain 02/15/2022 [...] Rfl: 3 ergocalciferol (Vitamin D-2) 1.25 MG (02537 UT) capsule, Take 1 capsule by mouth [...] Partner Violence: Unknown (06/30/2023) Received from [facility] [place] [facility] Fear of Current [...] and negative PT pedal pulses NEURO: 5.07 [place] monofilament test intact to digits and forefoot bilaterally 125Hz tuning fork diminished to 1st MPJ bilaterally ORTHO: Positive pain on palpation to nails 1 through 10 Negative pain on palpation right medial calcaneal tubercle ASSESSMENT 1. Plantar fasciitis 2. Contracture of right ankle 3. Diabetes mellitus due to underlying condition with diabetic polyneuropathy, with long-term current use of insulin ([facility]) 4. Onychomycosis 5. Toe pain, [...] Kyrie Carney DPM documented in this encounter [facility] 01-11-2024 History of Present illness Narrative Radiology Service Progress Note DATE [...] PATIENT PRESENTS WITH AN IMPLANTABLE OR ATTACHED FISHING VESSEL DECKHAND: No ALLERGIES: Reviewed and unchanged CONTRAST ALLERGY: NO. EXAM: MRI - CONTRAST TYPE: GROUP II PERIPHERAL IV DATA: Ambulatory: A peripheral IV was started in the Right antecubital site with a Angio cath: 22 gauge. RADIOLOGY DEPARTMENT: MR; Exam(s) Completed: Cardiac: Cardiac SIGNATURE: RT Estee(Cookie) PATIENT NAME: Maury Issa DATE: January 11, 2024 TIME: 3:46 PM documented in this encounter [facility] 01-11-2024 Note HNO ID: [id number] Author: MIGUEL ÁNGEL OVALLE RT (R) Service: [...] PATIENT PRESENTS WITH AN IMPLANTABLE OR ATTACHED FISHING VESSEL DECKHAND: No ALLERGIES: Reviewed and unchanged CONTRAST ALLERGY: NO. EXAM: MRI - CONTRAST TYPE: GROUP II PERIPHERAL IV DATA: Ambulatory: A peripheral IV was started in the Right antecubital site with a Angio cath: 22 gauge. RADIOLOGY DEPARTMENT: MR; Exam(s) Completed: Cardiac: Cardiac SIGNATURE: Miguel Ángel Yamile, RT(R) PATIENT NAME: Maury Issa DATE: January 11, 2024 TIME: 3:46 PM [facility] 01-05-2024 History of Present illness Narrative Images from the original note [...] tablet 3 ergocalciferol (Vitamin D-2) 1.25 MG (10193 UT) capsule Take 1 capsule by mouth [...] F/U med changes. documented in this encounter [facility] 01-04-2024 Telephone encounter Note Summary: CMR Protocol Aye Boateng, Could you please provide a CMR Protocol for Maury Issa who is scheduled as an Outpatient for a Cardiac MRI on TuesdayJanuary 10 at 3:00pm. Order in scanned documents date 12/02/23 as Miscellaneous Imaging. Mr Cardiac Morphology and function w & wo iv contrast. DX: Hypertrophic Cardiomyopathy. Thank you! Sincerely, Francia Dumont RT(R)MRVI [facility] 01-04-2024 Miscellaneous Notes Summary: CMR Protocol Aye [...] Francia Dumont RT(R)MRVI documented in this encounter [facility] 12-26-2023 History of Present illness Narrative Images from the original note [...] tablet 3 ergocalciferol (Vitamin D-2) 1.25 MG (39083 UT) capsule Take 1 capsule by mouth [...] for Routine F/U. documented in this encounter [facility] 12-02-2023 Note Cardiovascular Medic [facility] SUBJECTIVE Maury Issa is a 73 y.o. [...] or radiculopathy Constipation Coronary artery disease involving [place] coronary artery of [place] heart with angina pectoris (CMS/HCC) Deformity of [...] failure Type 2 diabetes mellitus with hyperglycemia ([facility]) Incomplete bladder emptying Frequent urination Head injury Leukocytosis exterminator termite current use of insulin ([facility]) Major depressive disorder, single episode, unspecified Migraine Mild intermittent asthma Mixed hyperlipidemia Nasal obstruction Nocturia Reactive airway disease Paroxysmal atrial fibrillation ([facility]) Polyneuropathy Weak urinary stream Osteoarthritis of right knee RLS (restless legs syndrome) Cervical stenosis of spine Stage 3 chronic kidney disease ([facility]) Urge incontinence Urinary urgency Abnormal stress test Stable angina ([facility]) Obesity with body mass index 30 or greater Diverticulitis Lower urinary tract symptoms due to benign prostatic hyperplasia Anticoagulated Atypical small acinar proliferation of prostate Bilateral varicoceles Contracture, right ankle Diabetic nephropathy with proteinuria ([facility]) Disturbance in sleep behavior Diverticulosis of large intestine without hemorrhage Edema Glucosuria Headaches, cluster Indigestion LLQ pain Neuropathy due to type 2 diabetes mellitus ([facility]) Osteoarthritis of right foot Peripheral venous insufficiency Renal cyst Sacroiliitis ([facility]) Testicular pain B12 deficiency Diabetes mellitus ([facility]) Disorder of the skin and subcutaneous tissue, unspecified H/O: osteoarthritis Hyperopia Nuclear sclerotic cataract Obstructive sleep apnea syndrome Encounter for immunization Presbyopia Sensorineural hearing loss, bilateral Tinnitus Tremor Vitamin D deficiency Encounter for fitting and adjustment of hearing aid Exposure to potentially hazardous substance Idiopathic chronic pancreatitis ([facility]) Hypertensive urgency Melena NSTEMI (non-ST elevated myocardial infarction) ([facility]) Vitreous degeneration, left eye Primary localized osteoarthrosis of ankle and foot Diarrhea Past Medical History: Diagnosis Date Acromioclavicular separation Atrial fibrillation ([facility]) Chronic kidney disease Coronary artery disease Diabetes mellitus ([facility]) GERD (gastroesophageal reflux disease) Heart [...] (1000 units) tab (more content not included)... [facility] 06-16-2023 Evaluation note Encounter Date Diagnosis Assessment Notes Jun, Contact with and (suspected) exposure to other viral communicable diseases (ICD-10 - Z20.828) Jun, Viral URI with cough (ICD-10 - J06.9) Advised patient that COVID/Influenza A/B test was negative today. Advised patient that will treat as viral URI. Supportive care as directed, increase fluids and rest, Tylenol/Motrin as directed, rx of Kamuela and Flonase, cool mist humidifier, throat lozenges. [...] treatment plan. Patient left in stable condition. [facility] Other 12-05-2023 Evaluation note* Encounter Date Diagnosis [...] K31.7) Apr, Abdominal pain (ICD-10 - R10.9) [facility] Other 10-23-2023 Discharge summary Author Dwain Peñaloza [facility] February 28, 2023 12:22pm Note Date/Time February 28, 2023 1 2:22pm [facility] [address] [place], [place] [id number] Discharge Summary Signed Patient: Maury Issa MR#: [id number] : 1950 Acct:[id number] Age/Sex: 72 / M Adm Date: 3 Loc: Room: [address] [place] [address]: Dwain Peñaloza MD Copies to: [...] TAKE 1 TABLET BY MOUTH TWICE DAILY Kamuela DM 7.5-7.5 mg/5 mL liquid 10 ml [...] signed by Dwain Peñaloza MD> 02/28/23 1222 [facility] Work Phone: 1(965) 302-701710-23-2023 Progress note Author Nikolas Villafana [facility] February 28, 2023 9:27am Note Date/Time February 28, 2023 9 :27am [facility] [address] [place] [address] Gastroenterology PN Signed Patient: Maury Issa MR#: [id number] : 1950 Acct:[id number] Age/Sex: 72 / M Adm Date: 3 Loc: 3T Room: [address] [place] [address] Type: ADM IN Attending Dr: Dwain Peñaloza [...] Lactated Ringers IV 02/25/24 15:44 75 mls/hr .[id number] ARLINE Administration Insulin Aspart 0 units 02/25/23 [...] <Electronically signed by Nikolas Villafana MD> 02/28/23926 [facility] Work Phone: 1(117) 902-409010-22-2023 Progress note Author Nikolas Villafana [facility] February 27, 2023 10:10am Note Date/Time February 27, 2023 1 0:11am [facility] [address] [place] [address] Gastroenterology PN Signed Patient: Maury Issa MR#: [id number] : 1950 Acct:[id number] Age/Sex: 72 / M Adm Date: 3 Loc: Room: [address] [place] [address] Type: ADM IN Attending Dr: Shruti Savage [...] Lactated Ringers IV 02/25/24 15:44 75 mls/hr .[id number] ARLINE Administration Insulin Aspart 0 units 02/25/23 00:00 02/27/23 06:42 Insulin Aspart 300 Units/3 Ml Insuln.Pen SUBCUT 02/25/24 00:00 Not Given Q6HR [facility] Protocol Insulin Glargine 20 units 02/25/23 09:00 [...] to follow. Documented By: Nikolas Villafana MD 02/27/231009 Signed By: <Electronically signed by Nikolas Villafana MD> 02/27/231009 [facility] Work Phone: 1(868) 154-996310-22-2023 Progress note Author Shruti Savage [facility] February 27, 2023 9:09am Note Date/Time February 27, 2023 9 :07am [facility] [address] [place] [address] Hospitalist Progress Note Signed with Addenda Patient: Maury Issa MR#: [id number] : 1950 Acct:[id number] Age/Sex: 72 / M Adm Date: 3 Loc: Room: [address] [place] [address] Type: ADM IN Attending Dr: Shruti Savage [...] Lactated Ringers IV 02/25/24 15:44 75 mls/hr .[id number] ARLINE Administration Insulin Aspart 0 units 02/25/23 00:00 02/27/23 06:42 Insulin Aspart 300 Units/3 Ml Insuln.Pen SUBCUT 02/25/24 00:00 Not Given Q6HR [facility] Protocol Insulin Glargine 20 units 02/25/23 09:00 [...] signed by Shruti Savage MD> 02/27/23 0907 [facility] Work Phone: 1(753) 342-369610-21-2023 Progress note Author Shruti Savage [facility] February 26, 2023 9:25am Note Date/Time February 26, 2023 9 :22am [facility] [address] [place] [address] Hospitalist Progress Note Signed Patient: Maury Issa MR#: [id number] : 1950 Acct:[id number] Age/Sex: 72 / M Adm Date: 3 Loc: Room: [address] [place] [address] Type: ADM IN Attending Dr: Shruti Savage [...] Lactated Ringers IV 02/25/24 15:44 Not Given .[id number] [facility] Insulin Aspart 0 units 02/25/23 00:00 02/26/23 06:14 Insulin Aspart 300 Units/3 Ml Insuln.Pen SUBCUT 02/25/24 00:00 Not Given Q6HR [facility] Protocol Insulin Glargine 20 units 02/25/23 09:00 [...] <Electronically signed by Shruti Savage MD> 02/26/23924 [facility] Work Phone: 1(916) 288-167610-20-2023 Progress note Author Shruti Savage [facility] February 25, 2023 11:29am Note Date/Time February 25, 2023 1 1:11am [facility] [address] [place] [address] Hospitalist Progress Note Signed Patient: Maury Issa MR#: [id number] : 1950 Acct:[id number] Age/Sex: 72 / M Adm Date: 3 Loc: Room: [address] [place] [address] Type: ADM IN Attending Dr: Shruti Savage MD Copies to: ~ Date of Service: 02/25/2023 Subjective Subjective Narrative: Maury Issa is a 72 y.o. male with a PMH of A Fib, diabetes, hypercholesterolemia, GERD, SD, HTN, and sleep apnea on CPAP who [...] 1,000 Ml IV 02/25/24 00:14 75 mls/hr .[id number] ARLINE Administration Sodium Chloride 500 mls @ 20 mls/hr 02/25/23 00:02 0.9 % Sodium Chloride IV 02/26/23 00:01 PROTOCOL PRN BLOOD TRANSFUSION Insulin Aspart 0 units 02/25/23 00:00 02/25/23 06:15 Insulin Aspart 300 Units/3 Ml Insuln.Pen SUBCUT 02/25/24 00:00 Not Given Q6HR [facility] Protocol Insulin Glargine 20 units 02/25/23 09:00 [...] Monitor on Telemetry. Patient was transferred from [facility] to our facility due to acute GI bleed. He recently had gastric polypectomy. GI was consulted. Input appreciated. Recommended to hold AC/AP. Continue IV PPI. Hemoglobin dropped on arrival here to 7.0 from 8.0 at [facility]. Patient was transfused 2 units of blood. He was slightly hypotensive this morning which improved after transfusion. Advance to clear liquids today. GI following. Continue to monitor H&H. Goal to keep hemoglobin above 8.0/ongoing bleeding/hemodynamic instability. Shruti Steinberg MD Documented By: Inocencio Melendze MD, RES 02/25/23 10 54 Signed By: <Electronically signed by RES Inocencio Melendez> 02/25/23 1111 <Electronically signed by Shruti Savage MD> 02/25/23 [facility] Work Phone: 1(172) 640-853810-20-2023 Consult note Author Nikolas Villafana [facility] February 25, 2023 8:35am Note Date/Time February 25, 2023 8 :31am [facility] [address] [place] [address] Gastroenterology Consult Note Signed Patient: Maury Issa MR#: [id number] : 1950 Acct:[id number] Age/Sex: 72 / M Adm Date: 3 Loc: Room: [address] [place] [address] Type: ADM IN Attending Dr: Shruti Savage [...] underwent EGD by Dr. Donis on the 13 of this month, he had several gastric [...] Hematologic/Lymphatic: Denies easy bruising and Denies lymphadenopathy [facility] Medical History (Updated 02/25/23 @ 08:33 [...] Type: None Social History Comments: Lives in [facility] Medications and Allergies Allergies isosorbide Allergy (Verified [...] mg inhalation BID 02/24/23 [History Confirmed 02/24/23] zlvllp-enhogvlq-ksgwzkh 40,000-126,000-168,000 unit capsule, delay rel (Zenpep) 2 cap PO TIDWMEAL 02/24/23 [History Confirmed 02/24/23] prednisone 20 mg tablet 20 mg PO DAILY 02/24/23 [History Confirmed 02/24/23] pyrilamine 7.5 mg-dextromethorphan 7.5 mg/5 mL oral liquid (Kamuela DM) 10 ml PO Q8HR 02/24/23 [History [...] % (Auto) 85.8 Lymph % (Auto) 9.6 [place] % (Auto) 4.5 Eos % (Auto) 0.0 Baso % (Auto) 0.1 Nucleat RBC Rel Count 0.0 Neut # (Auto) 11.7 H Lymph # (Auto) 1.3 [place] # (Auto) 0.6 Eos # (Auto) 0.0 Baso # (Auto) 0.0 POC Glucose Troponin I High Sens 13.6 Blood Type AB Positive Blood Type Recheck Antibody Screen Negative Crossmatch (AHG) See Detail 02/25/23 02/25/23 02/25/23 00:24 00:42 05:38 Corrected WBC Uncorrected WBC Count RBC Hgb Hct MCV MCH MCHC RDW Plt Count MPV Neut % (Auto) Lymph % (Auto) [place] % (Auto) Eos % (Auto) Baso % (Auto) Nucleat RBC Rel Count Neut # (Auto) Lymph # (Auto) [place] # (Auto) Eos # (Auto) Baso # [...] signed by Nikolas Villafana MD> 02/25/23 0835 [facility] Work Phone: 1(353) 559-919810-20-2023 History and physical note Author Rachel Jin [facility] February 24, 2023 11:59pm Note Date/Time February 24, 2023 1 1:55pm [facility] [address] [place] [address] Hospitalist H&P Signed Patient: Maury Issa MR#: [id number] : 1950 Acct:[id number] Age/Sex: 72 / M Adm Date: 3 Loc: Room: [address] [place] [address] Type: ADM IN Attending Dr: Rachel Jin [...] Previous records in the computer system reviewed [facility] Medical History (Updated 02/18/23 @ 10:20 [...] Type: None Social History Comments: Lives in [facility] Medications and Allergies Allergies isosorbide Allergy (Verified [...] mg inhalation BID 02/24/23 [History Confirmed 02/24/23] kloupl-lfnmporu-jxvglxd 40,000-126,000-168,000 unit capsule, delay rel (Zenpep) 2 cap PO TIDWMEAL 02/24/23 [History Confirmed 02/24/23] prednisone 20 mg tablet 20 mg PO DAILY 02/24/23 [History Confirmed 02/24/23] pyrilamine 7.5 mg-dextromethorphan 7.5 mg/5 mL oral liquid (Kamuela DM) 10 ml PO Q8HR 02/24/23 [History [...] 3 Documented By: Rachel Jin MD 02/24/23 2346 Signed By: <Electronically signed by Rachel Jin MD> 02/24/23 4354 [facility] Work Phone: 1(776) 155-922010-17-2023 Evaluation note* Encounter Date Diagnosis Assessment Notes [...] viral supportive care, rx of prednisone and Kamuela, Tylenol as needed for body aches/fever. Increase [...] treatment plan. Patient left in stable condition [facility] Other 10-13-2023 Evaluation note* Encounter Date Diagnosis Assessment Notes Treatment Notes Treatment Clinical Notes Feb, Exocrine pancreatic insufficiency (ICD-10 - K86.81) Feb, Abdominal pain (ICD-10 - R10.9) [employer] [facility] Other 10-13-2023 Procedure [facility]09-05-2023 Evaluation note* Encounter Date Diagnosis Assessment Notes [...] Jan, LUQ abdominal pain (ICD-10 - R10.12) [facility] Other 06-21-2023 Hospital Discharge instructions Patient Education [...] treatment? Where to find more information [employer]: www.cancer.org [employer]: www.auanet.org Contact a health care [...] provider. Document Revised: 10/19/2021 Document Reviewed: 10/19/2021 [employer] Patient Education 2022 [employer]. Follow Up Care 08/18/2021 10:28:01 With:Ignacio KNOTT, ROSE MARIE Stinson, URO Address: [address] [place] [address] [place], [place] [address]- [phone] When: Unknown Comments:ENIDN [facility] 12-13-2022 Evaluation note* Encounter Date Diagnosis Assessment Notes Treatment Notes Treatment Clinical Notes Apr, Atypical chest pain (ICD-10 - R07.89) PT TO CALL AND SCHEDULE EGD W/JEAN-BAPTISTE AND COLONOSCOPY AFTER CARDIAC CLEARANCE. Apr, GERD (gastroesophageal reflux disease) (ICD-10 - K21.9) Apr, History of colon polyps (ICD-10 - Z86.010) Apr, Nausea (ICD-10 - R11.0) [facility] Other 12-08-2022 Note [id number]:127[facility] 10-21-2021 History general Narrative - Reported* Type Description Date Medical History hypertension Medical History diabetes mallitus Medical History Hypercholesteremia Medical History chronic bronchitis Medical History diverticulosis Medical History cardiac stent October 21, 2021 Surgical History rt shoulder surgery Surgical History rt knee surgery [employer] [facility] Other 06-15-2022 History general Narrative - Reported* Type Description Date Medical History hypertension Medical History diabetes mallitus Medical History Hypercholesteremia Medical History chronic bronchitis Medical History diverticulosis Medical History cardiac stent October 21, 2021 Surgical History rt shoulder surgery Surgical History rt knee surgery Surgical History colonoscopy [facility] Other 06-15-2022 History general Narrative - Reported* Type Description Date Medical History hypertension Medical History diabetes mallitus Medical History Hypercholesteremia Medical History chronic bronchitis Medical History diverticulosis Medical History cardiac stent October 21, 2021 Surgical History rt shoulder surgery Surgical History rt knee surgery Surgical History colonoscopy Hospitalization History see above [facility] Other 06-10-2022 Evaluation note* Encounter Date Diagnosis [...] care instructions given in writting by [facility] Care At Home document. [facility] Other 05-25-2022 NoteCARDIAC STRESS TEST Requesting Physician: [...] report for nuclear myocardial perfusion imaging report.[id number] Discharge instructions Patient Education 08/18/2021 10:15:13 [...] including vitamins, herbs, eye drops, creams, and zial-oeu-ojwrkdy medicines. This also includes: ?Medicines to assist [...] 05/28/2005 Document Revised: 04/07/2018 Document Reviewed: 01/30/2018 [employer] Patient Education 2020 [employer]. Follow Up Care 07/08/2020 12:08:08 With:Taye Johnson MD, Maury Albarran, URO Address: [facility] [address], [place] [address]- When:08/18/2022 Comments:w/ psa [facility] evaluation + Plan note Future Appointments Appointment Date:08/24/2022 08:00:00 AM Scheduled Provider:Maury Kothari Jr., MD Location:[facility] Appointment Type:URO Office Visit Diagnostic Tests Pending * PSA Total 05/09/22 [facility] evalgkavex note* Diagnosis Onset Date Resolution Status Diarrhea acute [facility] Work Phone: Evaluation note* Diagnosis Onset Date Resolution Status Diarrhea acute Hypertension acute Melena [facility] Work Phone: Evaluation note* Diagnosis Onset Date Resolution Status Viral URI with cough [facility] Work Phone: Evalutpsej note* Diagnosis RLS (restless legs syndrome)- Primary [...] of both feet documented in this encounter [facility] HealthcareEvaluation note* Diagnosis Benign essential tremor- Primary [...] Neurogenic pain Type 2 diabetes mellitus with stage 3b chronic kidney disease, with long-term current use of insulin (HCC) (CMS/HCC)- Primary Chronic kidney disease, stage 3b (HCC) (CMS/HCC) Mixed hyperlipidemia (CMS/HCC) Mixed hyperlipidemia Diabetes mellitus due to underlying condition with diabetic polyneuropathy, with long-term current use of insulin (CMS/HCC)- Primary Pain due to onychomycosis of toenails of both feet Plantar fasciitis Plantar fascial fibromatosis documented in this encounter [facility] general Narrative - Reported* Type Description Date Medical History hypertension Medical History diabetes mallitus Medical History Hypercholesteremia Medical History chronic bronchitis Medical History diverticulosis Surgical History lt shoulder surgery Surgical History rt knee surgery [facility] Other Hospital course Narrative No data available for this section [facility] Hospital Discharge instructions Additional Instructions DISCHARGE INSTRUCTIONS [...] if you have any problems. 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 * Hypoglycemia (Zambian) documented in this encounter Assessments Diagnosis Hypoglycemia- [...] section and content) DATE CREATED AUTHOR 09/26/2018 [facility] DATE CREATED AUTHOR AUTHOR'S SERGIOIZ ATMARLYN 12/30/2018 [facility] DATE CREATED AUTHOR AUTHOR'S ORGANIZ ATION 10/29/2021 [facility] DATE CREATED AUTHOR AUTHOR'S ORGANIZ ATION 09/15/2022 [facility] DATE CREATED AUTHOR AUTHOR'S ORGANIZ ATION 10/27/2022 [facility] DATE CREATED AUTHOR AUTHOR'S ORGANIZ ATION 10/31/2022 [facility] DATE CREATED AUTHOR AUTHOR'S ORGANIZ ATION 05/09/2023 [facility] DATE CREATED AUTHOR AUTHOR'S ORGANIZ ATION 12/12/2023 [facility] DATE CREATED AUTHOR AUTHOR'S ORGANIZ ATION 01/13/2024 [facility] DATE CREATED AUTHOR AUTHOR'S ORGANIZ ATION 07/14/2024 [facility] DATE CREATED AUTHOR AUTHOR'S ORGANIZ ATION 08/17/2024 [facility] DATE CREATED AUTHOR AUTHOR'S ORGANIZ ATION 10/12/2024 [facility] Special[facility] EPIC Reason for Visit (unrecogniz ed section and content) Reason Comments Hypoglycemia blood sugar dropped to 30 today Reason Comments Orders Reason Comments Tremors Reason Comments Medicare Annual Wellness Visit Subsequen t Hypertension Pt made changes to m etoprolol as directedPt was restarted on lisinopril by [place]-- per pt nephrolpogist requested PCP call him-- dr honeycutt [phone] Reason Comments DM Foot Care Dm nail care Reason Comments Diabetes Hypertension Reason Comments Hypotension Reason Comments DM Foot Care Dm Nails Reason Comments Diabetes Results Labs 07/2024 Extremity Weakness Patient Care team informatio n (unrecognized section [...] Active Dwain Peñaloza MD Attending Provider Active Business Services Analyst Relationship Specialty Start Date End Date Herbert Peters MD PCP - General Family Medicine 02/14/13 Business Services Analyst Relationship Specialty Start Date End Date Herbert Peters MD PCP - General Family Medicine 02/14/13 Team Status: Inactive Member Role Status Dates Mason Membreno II MD Primary Care Provider Active Start: January 27, 2024 End: January 27, 2024 Lotus Casillas , YOUTH PROGRAM DIRECTOR Attending Provider Active Start: January 27, 2024 End: January 27, 2024 Business Services Analyst Relationship Specialty Start Date End Date Mason Membreno MD [address] [place] [address] PCP - ACO Reach 09/30/22 Mason Membreno MD [address] [place] [address] PCP - General Internal Medicine 10/06/22 Business Services Analyst Relationship Specialty Start Date End Date Mason Membreno MD [address] [place] [address] PCP - ACO Reach 09/30/22 Mason Membreno MD [address] [place] [address] PCP - General Internal Medicine 10/06/22 Business Services Analyst Relationship Specialty Start Date End Date Mason Membreno MD [address] [place] [address] PCP - ACO Reach 09/30/22 Mason Membreno MD [address] [place] [address] PCP - General Internal Medicine 10/06/22 Business Services Analyst Relationship Specialty Start Date End Date Mason Membreno MD [address] [place] [address] PCP - ACO Reach 09/30/22 Mason Membreno MD [address] [place] [address] PCP - General Internal Medicine 10/06/22 Business Services Analyst Relationship Specialty Start Date End Date Mason Membreno MD [address] [place] [address] PCP - ACO Reach 09/30/22 Mason Membreno MD [address] [place] [address] PCP - General Internal Medicine 10/06/22 Business Services Analyst Relationship Specialty Start Date End Date Mason Membreno MD [address] [place] [address] PCP - ACO Reach 09/30/22 Mason Membreno MD [address] [place] [address] PCP - General Internal Medicine 10/06/22 Business Services Analyst Relationship Specialty Start Date End Date Mason Membreno MD [address] [place] [address] PCP - ACO Reach 09/30/22 Mason Membreno MD [address] [place] [address] PCP - General Internal Medicine 10/06/22 Business Services Analyst Relationship Specialty Start Date End Date Mason Membreno MD [address] [place] [address] PCP - ACO Reach 09/30/22 Mason Membreno MD [address] [place] [address] PCP - General Internal Medicine 10/06/22 Business Services Analyst Relationship Specialty Start Date End Date Mason Membreno MD [address] [place] [address] PCP - ACO Reach 09/30/22 Mason Membreno MD [address] [place] [address] PCP - General Internal Medicine 10/06/22 Business Services Analyst Relationship Specialty Start Date End Date Mason Membreno MD [address] [place] [address] PCP - ACO Reach 09/30/22 Mason Membreno MD [address] [place] [address] PCP - General Internal Medicine 10/06/22 Business Services Analyst Relationship Specialty Start Date End Date Mason Membreno MD [address] [place] [address] PCP - ACO Reach 09/30/22 Mason Membreno MD [address] [place] [address] PCP - General Internal Medicine 10/06/22 Business Services Analyst Relationship Specialty Start Date End Date Mason Membreno MD [address] [place] [address] PCP - ACO Reach 09/30/22 Mason Membreno MD [address] [place] [address] PCP - General Internal Medicine 10/06/22 Business Services Analyst Relationship Specialty Start Date End Date Mason Membreno MD [address] [place] [address] PCP - ACO Reach 09/30/22 Mason Membreno MD [address] [place] [address] PCP - General Internal Medicine 10/06/22 Business Services Analyst Relationship Specialty Start Date End Date Mason Membreno MD [address] [place] [address] PCP - ACO Reach 09/30/22 Mason Membreno MD [address] [place] [address] PCP - General Internal Medicine 10/06/22 Business Services Analyst Relationship Specialty Start Date End Date Mason Membreno MD [address] [place] [address] PCP - ACO Reach 09/30/22 Mason Membreno MD [address] [place] [address] PCP - General Internal Medicine 10/06/22 Business Services Analyst Relationship Specialty Start Date End Date Mason Membreno MD [address] [place] [address] PCP - ACO Reach 09/30/22 Mason Membreno MD [address] [place] [address] PCP - General Internal Medicine 10/06/22 Business Services Analyst Relationship Specialty Start Date End Date Mason Membreno MD [address] [place] [address] PCP - ACO Reach 09/30/22 Mason Membreno MD [address] [place] [address] PCP - General Internal Medicine 10/06/22 Source Comments (unrecognize d section and content) In the event this informatio n is protected by the Federal Confidentiality of Alcohol and Drug Abuse Patient Records regulations: The Federal rules restrict any use of the information to criminally investigate or prosecute any alcohol or drug abuse patient.[facility] [place] the event this information is protected by the Federal Confidentiality of Alcohol and Drug Abuse Patient Records regulations: The Federal rules restrict any use of the information to criminally investigate or prosecute any alcohol or drug abuse patient.[facility] Goals (unrecognized section and content) Goals may [...] BE BASED ON THE PRIMARY CLINICAL RECORDS. [facility]. provides no warranty or guarantee of the accuracy or completeness of information in this document.
[2024-10-16] MEDS: 0.9 % SODIUM CHLORIDE 1,000 ML 500 ML IV (18:37)
--- NOTE | 2024-10-16 18:39 | ECG_ITS ---
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 Measurements Intervals [place]ruff Rate: 58 P: 55 MS: 190 QRS: 26 QRSD: 96 T: 69 QT: 432 QTc: 429 Interpretive Statements 1100 Sinus rhythm 8003 Consistent with pulmonary disease 8102 Low QRS voltage in chest leads 9150 abnormal ECG Compared to ECG 10/16/2024 16:40:09 Low QRS voltage now present Electronically Signed On 10-16-2024 21:45:10 EDT by WILDA CAMPO M.D.
[2024-10-16 19:10] LABS: Anion Gap 19.3; BUN Creatinine Ratio 22.3; Carbon Dioxide 15.7 mmol/L (21.0-32.0); Chloride 108 mmol/L (98-107); Estimated GFR (African America 17 (>=60 mL/min/1.73m^2); Estimated GFR (Non-African Ame 14 (>=60 mL/min/1.73m^2); Glucose 101 mg/dL (74-106); Sodium 136 mmol/L (136-145)
[2024-10-16] MEDS: SODIUM BICARBONATE 8.4 % 50 MEQ/50 ML SYRINGE IV (20:00)
[2024-10-16] MEDS: CALCIUM GLUCONATE 1,000 MG/10 ML VIAL 1000 MG IVP (20:06)
[2024-10-16] MEDS: SODIUM ZIRCONIUM CYCLOSILICATE 10 GM POWD.PACK PO (21:13)
[2024-10-16] MEDS: FUROSEMIDE 20 MG/2 ML VIAL IVP (21:13)
[2024-10-16] MEDS: ALBUTEROL SULFATE 2.5 MG/3 ML VIAL NEB IH (21:19)
[2024-10-16 23:17] LABS: Anion Gap 18.5; BUN Creatinine Ratio 22.2; Calcium 8.7 mg/dL (8.5-10.1); Carbon Dioxide 17.5 mmol/L (21.0-32.0); Chloride 108 mmol/L (98-107); Estimated GFR (African America 18 (>=60 mL/min/1.73m^2); Estimated GFR (Non-African Ame 15 (>=60 mL/min/1.73m^2); Glucose 102 mg/dL (74-106); Sodium 138 mmol/L (136-145)
[2024-10-17] VITALS (35 sets, daily range): BP systolic 83–135; BP diastolic 48–86; PULSE 52–150; O2SAT 83–99
[2024-10-17] MEDS: 0.9 % SODIUM CHLORIDE 1,000 ML 500 ML IV (03:00)
== END 2024-10-17 04:15 | disposition short-term general hospital (02) ==
PROVIDERS: Emergency Medicine; Emergency Provider Student in an Organized Health Care Education/Training Program; PCP Internal Medicine
DX: N17.9 Acute kidney failure, unspecified (principal); E87.5 Hyperkalemia; I95.9 Hypotension, unspecified; E86.0 Dehydration; N18.9 Chronic kidney disease, unspecified
CPT/HCPCS: 36415; 80048; 80053; 84132; 84484; 85025; 93005; 94640; 96361; 96365; 96375; 96376; 99285; J0612; J0613; J1817; J1938

== ENCOUNTER 2024-12-04 08:09 | Outpatient (OUT) | payer OTHER, SELFPAY ==
--- OUTSIDE RECORDS SUMMARY | 2024-01-12 04:15 | XMS_ITS | Encounter Summary ---
Author Name [facility] Organization [facility] Address [address] [place] [address] Care Team Providers Care Nurse Office Name Role Phone SUHAIL HOWARD Primary Care Provider Héctor chang Insurance Providers: All historical and current Section Date Range: From patient's date of to the date document was created. This section includes the names of all active insurance providers for the patient. Insurance Provider Type of Coverage Plan Name Start of Policy Coverage End of Policy Coverage Group Number Member ID Insurance Provider's Telephone Number Policy Batista's Name Patient's Relationship to Policy Batista MEDICARE (WNR) MEDICARE (M) PART B Oct 07, 2017 PART B [id number] [facility] [phone] MAURY VILLALPANDO PATIENT MEDICARE (WNR) MEDICARE (M) PART A Oct 07, 2017 PART A [id number] MAURY VILLALPANDO PATIENT MEDICARE (WNR) MEDICARE (M) PART A Oct 07, 2017 PART A [id number] MAURY VILLALPANDO PATIENT MEDICARE (WNR) MEDICARE (M) PART B Oct 07, 2017 PART B [id number] MAURY VILLALPANDO PATIENT MEDICARE (WNR) MEDICARE (M) PART B Oct 07, 2017 PART B [id number] [facility] MAURY VILLALPANDO PATIENT MEDICARE (WNR) MEDICARE (M) PART A Oct 07, 2017 PART A [id number] MAURY VILLALPANDO PATIENT [facility] FAMIL Y [place] NIES May 09, 2020 [id number] MAURY VILLALPANDO PATIENT [facility] C[facility] FMILY OF [place] NI May 09, 2020 [id number] MAURY VILLALPANDO PATIENT Selected Encounter This section includes the information on record at [place] for the Encounter. Date/Time Encounter Type Encounter Description Reason Pro vider Source Jan 12, 2024 08:15 AM Outpatient Encounter [facility] Encounter Template Text not used by [place] Plan of Treatment: Future Appointments (+ 6 months) and Future Tests (+/- 45 days) The Plan of Treatment section includes future care activities for the patient from all [place] treatmentfacilities. This section includes future appointments and future orders which are active, pending or scheduled. Future Appointments This section includes appointments that were scheduled to occur 6 months from the date of the Encounter, up to a maximum of 20 appointments. The data comes from all [place] treatment facilities. Appointment Date/Time Appointment Type Appointme nt Facility Name Feb 16, 2024 10:30 AM AMBULATORY - MEDICINE [facility] Mar 05, 2024 09:00 AM [facility] Mar 22, 2024 10:00 AM AMBULATORY - MEDICINE [facility] Apr 10, 2024 04:45 PM AMBULATORY - SURGERY [facility] Apr 12, 2024 10:00 AM AMBULATORY - MEDICINE [facility] May 10, 2024 10:00 AM AMBULATORY - MEDICINE [facility] May 11, 2024 10:23 AM AMBULATORY - NONE CHAKA Gary [facility] Jun 05, 2024 10:30 AM AMBULATORY - SURGERY [facility] Jun 05, 2024 01:00 PM AMBULATORY - SURGERY CHAKA Bourne [facility] Jun 11, 2024 09:00 AM AMBULATORY - SURGERY [facility] Jul 05, 2024 10:00 AM AMBULATORY - MEDICINE [facility] Lab Results: +/- 30 days of the encounter This section includes the Chemistry and Hematology Lab Results on record with [place] for the patient. Radiology Reports and Pathology Reports are provided separately, in subsequent sections. Lab Results This section contains the Chemistry/Hematology Results that were resulted 30 days before or 30 daysafter the date of the Encounter. Date/Time Source Result Type Result - Unit Interpretation Reference Range Specimen Type Comment Jan 18, 2024 10:09 AM [facility] PTH (INTACT) BLOOD Specimen Type: BLOOD No comment entered. Ordering Provider: DAMION JEAN Report Released Date/Time: Aug 11, 2023 10:20 AM Reporting Lab: [place] [phone] Performing Lab: [place] [phone] PTH (INTACT) 114.1 pg/mL H 12.0-88.0 Jan 18, 2024 10:09 AM [facility] FERRITIN BLOOD Specimen Type: BLOOD No comment entered. Ordering Provider: DAMION JEAN Report Released Date/Time: Aug 11, 2023 10:20 AM Reporting Lab: [place] [phone] Performing Lab: [place] [phone] FERRITIN 35.9 ng/mL 23.9-336.2 Jan 18, 2024 10:09 AM [facility] IRON/TIBC/FERR BLOOD Specimen Type: BLOOD No comment entered. Ordering Provider: DAMION JEAN Report Released Date/Time: Aug 11, 2023 10:20 AM Reporting Lab: [address] [phone] Performing Lab: [place] [phone] IRON 64 ug/dL 50-212 TIBC 337 ug/dL 240-450 FERRITIN 35.9 ng/mL 23.9-336.2 TRANSFERRIN 241 mg/dL 203-362 Jan 18, 2024 10:09 AM [facility] MICROALBUMIN URINE PANEL,RANDOM URINE,RANDOM Specime n Type: URINE,RANDOM No comment entered. Ordering Provider: DAMION JEAN Report Released Date/Time: Aug 11, 2023 10:20 AM Reporting Lab: [address] [phone] Performing Lab: [address] [phone] CREATININE 78 mg/dL MICROALBUMIN,RANDOM 38.2 mg/dL MICRO/CREAT RATIO 489.7 mg/g Jan 18, 2024 10:09 AM [facility] TOTAL 25-HYDROXY VITAMIN D BLOOD Specimen Typ e: BLOOD No comment entered. Ordering Provider: DAMION JEAN Report Released Date/Time: Aug 11, 2023 10:20 AM Reporting Lab: [address] [phone] Performing Lab: [address] [phone] TOTAL 25-HYDROXY VITAMIN D 53.6 ng/mL 30 -100 Jan 18, 2024 10:09 AM [facility] MAGNESIUM BLOOD Specimen Type: BLOOD No comment entered. Ordering Provider: DAMION JEAN Report Released Date/Time: Aug 11, 2023 10:20 AM Reporting Lab: [facility] [address] [facility] [address] Performing Lab: [facility] [address] [facility] [address] MAGNESIUM 1.9 mg/dL 1.9-2.7 Jan 18, 2024 10:09 AM [facility] FREE T-4 BLOOD Specimen Type: BLOOD No comment entered. Ordering Provider: SUHAIL HOWARD MD Report Released Date/Time: Aug 16, 2023 08:31 AM Reporting Lab: [address] [phone] Performing Lab: [place] [phone] FREE T-4 0.73 ng/dL 0.61-1.12 Jan 18, 2024 10:09 AM [facility] TSH BLOOD Specimen Type: BLOOD No comment entered. Ordering Provider: SUHAIL HOWARD MD Report Released Date/Time: Aug 16, 2023 08:31 AM Reporting Lab: [address] [phone] Performing Lab: [place] [phone] TSH 1.816 u[IU]/mL 0.45-5.33 Jan 18, 2024 10:09 AM [facility] HGB A1C (with eAG) BLOOD Specimen Ty pe: BLOOD No comment entered. Ordering Provider: SUHAIL HOWARD MD Report Released Date/Time: Aug 16, 2023 08:31 AM Reporting Lab: [address] [facility] [address] Performing Lab: [address] [facility] [phone] HGB A1C 5.6 4.0-6.0 ESTIMATE AVG GLUCOSE 114 mg/dL Jan 18, 2024 10:09 AM [facility] RENAL FUNCTION PANEL (AA) BLOOD Specimen Type : BLOOD No comment entered. Ordering Provider: DAMION JEAN Report Released Date/Time: Aug 11, 2023 10:20 AM Reporting Lab: [address] [facility] [phone] Performing Lab: [address] [facility] [phone] CREATININE 2.6 mg/dL H 0.6-1.3 UREA NITROGEN 41 mg/dL H 7-25 GLUCOSE 150 mg/dL H 74-109 SODIUM 140 mmol/L 136-145 POTASSIUM 4.5 mmol/L 3.5-5.1 CHLORIDE 105 mmol/L 98-107 CO2 29 mmol/L 21-31 CALCIUM 9.4 mg/dL 8.6-10.3 PO4 5.2 mg/dL H 2.5-5 ALBUMIN 4.3 g/dL 3.5-5.7 EGFR 26 mL/min/{1.73_m2} Jan 18, 2024 10:09 AM [facility] PSA BLOOD Specimen Type: BLOOD No comment entered. Ordering Provider: SUHAIL HOWARD MD Report Released Date/Time: Aug 16, 2023 08:51 AM Reporting Lab: [address] [phone] Performing Lab: [address] [phone] PSA 1.561 ng/mL <4.000 Jan 18, 2024 10:09 AM [facility] CBC WITH DIFFERENTIAL BLOOD Specimen Type: BL OOD No comment entered. Ordering Provider: DAMION JEAN Report Released Date/Time: Aug 11, 2023 10:20 AM Reporting Lab: [address] [facility] [address] Performing Lab: [address] [facility] [address] WBC 7.59 10*3/uL 4.00-11.00 RBC 4.65 10*6/uL 4.10-5.80 HGB 13.9 g/dL 12.1-17.2 HCT 41.5 38.0-51.0 MCV 89.2 fL 80.0-100.0 MCH 29.9 pg 26.0-32.0 MCHC 33.5 g/dL 32.0-37.5 PLATELET 132 10*3/uL 130-400 MPV 10.1 fL 8.9-12.7 LYMPH, ABSOLUTE AUTOMATED 1.36 10*3/uL 1 .00-3.00 MONOS % AUTOMATED 8.0 MONOS, ABSOLUTE AUTOMATED 0.61 10*3/uL 0 .30-0.90 LYMPH % AUTOMATED 17.9 BASO, ABSOLUTE AUTOMATED 0.03 10*3/uL 0. 00-0.20 EOSINO, ABSOLUTE AUTOMATED 0.23 10*3/uL 0.00-0.50 NEUTRO % AUTOMATED 70.0 EOSIN % AUTOMATED 3.0 BASO % AUTOMATED 0.4 NEUTROPHIL, ABSOLUTE AUTOMATED 5.31 10*3/uL 2.00-7.00 RDW-CV 13.5 11.5-14.5 IMMATURE GRANULOCYTE, PERCENT AUTOMATED 0.7 H 0.0-0.5 NRBC% 0.0 NRBC# <0.01 10*3/uL 0.000-0.012 Social History: Smoking Status (Most current) and Tobacco Use (All prior to encounter date) This section includes the most current, and the historical, smoking and tobacco- related health factors from the [place] facility where the Encounter took place. Current Smoking Status This section includes the most current smoking, or tobacco-related health factor, from the [place] facility where the Encounter took place. Date/Time Current Smoking Status Comment Facil ity Aug 16, 2023 07:30 AM [place]-TOBACCO NEVER USED [facility] Tobacco Use History This section includes a history of the smoking, or tobacco-related health factors, that were collected on or before the date of the Encounter. The data comes from the [place] facility where the Encounter took place. Date/Time Smoking Status/Tobacco Use Comment F acility Apr 21, 2022 09:00 AM [place]-TOBACCO NEVER USED [facility] Apr 28, 2021 10:30 AM [place]-TOBACCO NEVER USED [facility] May 29, 2019 10:34 AM [place]-TOBACCO NEVER USED [facility] Dec 15, 2017 10:25 AM [place]-TOBACCO NEVER USED [facility] Aug 18, 2017 03:43 PM LIFETIME NON-USER OF TOBACCO [facility] Sep 01, 2016 08:43 AM LIFETIME NON-USER OF TOBACCO [facility] Aug 21, 2015 10:40 AM LIFETIME NON-USER OF TOBACCO [facility] Encounter Notes: All associated encounter notes This section contains the clinical notes associated to the Encounter. Date/Time Encounter Note(s) Provider Source Jan 12, 2024 10:21 AM ADMINISTRATIVE NOT E: LOCAL TITLE: APPOINTMENT MANAGEMENT (MAILED_TO_PATIENT) STANDARD TITLE: ADMINISTRATIVE NOTE DATE OF NOTE: JAN 12, 2024@10:21 ENTRY DATE: JAN 12, 2024@10:21:50 AUTHOR: NELLIE GONZALEZ EXP COSIGNER: URGENCY: STATUS: COMPLETED [facility] [address] [facility] [address] JAN 12, [address] [place] [id number] NOTICE OF APPOINTMENT NOT COMPLETED AT [place] This is a notice that the following appointment was not attended by you: Clinic and location: [facility] Date of appointment that was not completed: 01/12/2024 Please call the following number to reschedule this appointment within 14 days of the receipt of this notice.(Mon - Fri 8:30AM to 4:00PM) [phone] press#[phone] Please note if you do not attend your appointment we may not able to meet your health care needs. This may include medication renewals and/or follow-up treatments. This does not change your eligibility for care through the [place]. Every effort will be made to provide you with excellent care. If you have already addressed this issue, please disregard this letter. Thank you. NELLIE GONZALEZ [facility]
--- OUTSIDE RECORDS SUMMARY | 2024-02-16 06:30 | XMS_ITS | Encounter Summary ---
Author Name [facility] [place] Organization [facility] [place] Address [address] [place] [address] Care Team Providers Care Sales Superintendent Name Role Phone SUHAIL HOWARD Primary Care [...] PART B Oct 07, 2017 PART B [id number] [phone] MAURY VILLALPANDO PATIENT MEDICARE (WNR) MEDICARE (M) PART A Oct 07, 2017 PART A [id number] [facility] [phone] MAURY VILLALPANDO PATIENT MEDICARE (WNR) MEDICARE (M) PART A Oct 07, 2017 PART A [id number] [phone] MAURY VILLALPANDO PATIENT MEDICARE (WNR) MEDICARE (M) PART B Oct 07, 2017 PART B [id number] [phone] MAURY VILLALPANDO PATIENT MEDICARE (WNR) MEDICARE (M) PART B Oct 07, 2017 PART B [id number] [facility] [phone] MAURY VILLALPANDO PATIENT MEDICARE (WNR) MEDICARE (M) PART A Oct 07, 2017 PART A [id number] MAURY VILLALPANDO PATIENT [facility] [place] NIES May 09, 2020 [id number] MAURY VILLALPANDO PATIENT [facility] FMILY OF [place]ET[place] NI May 09, 2020 [id number] [phone] MAURY VILLALPANDO PATIENT Selected Encounter This section includes the information on record at [place] for the Encounter. Date/Time Encounter Type Encounter Description Reason Provider Source Feb 16, 2024 10:30 AM OFFICE O/P EST HI 40 MIN RENAL/NEPHROL(EXCE PT DIALYSIS) ICD-10-CM N18.4 Chronic kidney disease, stage 4 (severe) MARVEL JEAN Jann Encounter Template Text not used by [place] Assessments - Encounter Diagnoses This section includes the primary and secondary diagnoses documented for the Encounter. Date/Time Primary/Secondary Diagnosis Diagnosis Name Provider Source Feb 16, 2024 12:40 PM PRIMARY Chronic kidney disease, stage 4 (severe) [facility] Feb 16, 2024 12:40 PM SECONDARY Essential (primary) hypertension [facility] Feb 16, 2024 12:40 PM SECONDARY Proteinuria, unspecified [facility] Feb 16, 2024 12:40 PM SECONDARY Type 2 diabetes mellitus w diabetic chronic kidney disease [facility] Plan of Treatment: Future Appointments (+ 6 months) and Future Tests (+/- 45 days) The Plan of Treatment section includes future care activities for the patient from all [place] treatmentfacilities. This section includes future appointments and future orders which are active, pending or scheduled. Future Appointments This section includes appointments that were scheduled to occur 6 months from the date of the Encounter, up to a maximum of 20 appointments. The data comes from all [place] treatment facilities. Appointment Date/Time Appointment Type Appointme nt Facility Name Mar 05, 2024 09:00 AM AMBULATORY - MEDICINE [facility] Mar 22, 2024 10:00 AM AMBULATORY - MEDICINE [facility] Apr 10, 2024 04:45 PM AMBULATORY - SURGERY [facility] Apr 12, 2024 10:00 AM AMBULATORY - MEDICINE [facility] May 10, 2024 10:00 AM AMBULATORY - MEDICINE [facility] May 11, 2024 10:23 AM AMBULATORY - NONE [facility] Jun 05, 2024 10:30 AM AMBULATORY - SURGERY [facility] Jun 05, 2024 01:00 PM [facility]BUL[facility]ORY - SURGERY [facility] Jun 11, 2024 09:00 AM AMBULATORY - SURGERY [facility] Jul 05, 2024 10:00 AM AMBULATORY - MEDICINE [facility] Aug 10, 2024 03:00 PM AMBULATORY - MEDICINE [facility] Lab Results: +/- 30 days of the encounter This section includes the Chemistry and Hematology Lab Results on record with [place] for the patient. Radiology Reports and Pathology Reports are provided separately, in subsequent sections. Lab Results This section contains the Chemistry/Hematology Results that were resulted 30 days before or 30 daysafter the date of the Encounter. Date/Time Source Result Type Result - Unit Interpretation Reference Range Specimen Type Comment Mar 05, 2024 09:47 AM [facility] MAGNESIUM BLOOD Specimen Type: BLOOD No comment entered. Ordering Provider: DAMION JEAN Report Released Date/Time: Feb 15, 2024 06:18 PM Reporting Lab: [facility] [address] [facility] [address] Performing Lab: [facility] [address] [facility] [address] MAGNESIUM 2.0 mg/dL 1.9-2.7 Mar 05, 2024 09:47 AM [facility] PTH (INTACT) BLOOD Specimen Type: BLOOD No comment entered. Ordering Provider: DAMION JEAN Report Released Date/Time: Feb 15, 2024 06:20 PM Reporting Lab: [address] [address] Performing Lab: [address] [address] PTH (INTACT) 84.4 pg/mL 12.0-88.0 Mar 05, 2024 09:47 AM [facility] MICROALBUMIN URINE PANEL,RANDOM URINE,RANDOM Specime n Type: URINE,RANDOM No comment entered. Ordering Provider: DAMION JEAN Report Released Date/Time: Feb 15, 2024 06:18 PM Reporting Lab: [address] [address] Performing Lab: [address] [address] CREATININE 79 mg/dL MICROALBUMIN,RANDOM 46.2 mg/dL MICRO/CREAT RATIO 584.8 mg/g Mar 05, 2024 09:47 AM [facility] TOTAL 25-HYDROXY VITAMIN D BLOOD Specimen Typ e: BLOOD No comment entered. Ordering Provider: DAMION JEAN Report Released Date/Time: Feb 15, 2024 06:20 PM Reporting Lab: [address] [address] Performing Lab: [address] [address] TOTAL 25-HYDROXY VITAMIN D 37.7 ng/mL 30 -100 Mar 05, 2024 09:47 AM [facility] RENAL FUNCTION PANEL (AA) BLOOD Specimen Type : BLOOD No comment entered. Ordering Provider: DAMION JEAN Report Released Date/Time: Feb 15, 2024 06:18 PM Reporting Lab: [facility] [address] [facility] [address] Performing Lab: [facility] [address] [facility] [address] CREATININE 2.0 mg/dL H 0.6-1.3 UREA NITROGEN 28 mg/dL H 7-25 GLUCOSE 70 mg/dL L 74-109 SODIUM 140 mmol/L 136-145 POTASSIUM 4.1 mmol/L 3.5-5.1 CHLORIDE 107 mmol/L 98-107 CO2 27 mmol/L 21-31 CALCIUM 9.0 mg/dL 8.6-10.3 PO4 4.2 mg/dL 2.5-5 ALBUMIN 4.1 g/dL 3.5-5.7 EGFR 35 mL/min/{1.73_m2} Jan 18, 2024 10:09 AM [facility] PTH (INTACT) BLOOD Specimen Type: BLOOD No comment entered. Ordering Provider: DAMION JEAN Report Released Date/Time: Aug 11, 2023 10:20 AM Reporting Lab: [address] [address] Performing Lab: [address] [address] PTH (INTACT) 114.1 pg/mL H 12.0-88.0 Jan 18, 2024 10:09 AM [facility] FERRITIN BLOOD Specimen Type: BLOOD No comment entered. Ordering Provider: DAMION JEAN Report Released Date/Time: Aug 11, 2023 10:20 AM Reporting Lab: [address] [address] Performing Lab: [address] [address] FERRITIN 35.9 ng/mL 23.9-336.2 Jan 18, 2024 10:09 AM [facility] IRON/TIBC/FERR BLOOD Specimen Type: BLOOD No comment entered. Ordering Provider: DAMION JEAN Report Released Date/Time: Aug 11, 2023 10:20 AM Reporting Lab: [address] [address] Performing Lab: [address] [address] IRON 64 ug/dL 50-212 TIBC 337 ug/dL 240-450 FERRITIN 35.9 ng/mL 23.9-336.2 TRANSFERRIN 241 mg/dL 203-362 Jan 18, 2024 10:09 AM [facility] MICROALBUMIN URINE PANEL,RANDOM URINE,RANDOM Specime n Type: URINE,RANDOM No comment entered. Ordering Provider: DAMION JEAN Report Released Date/Time: Aug 11, 2023 10:20 AM Reporting Lab: [address] [address] Performing Lab: [address] [address] CREATININE 78 mg/dL MICROALBUMIN,RANDOM 38.2 mg/dL MICRO/CREAT RATIO 489.7 mg/g Jan 18, 2024 10:09 AM [facility] TOTAL 25-HYDROXY VITAMIN D BLOOD Specimen Typ e: BLOOD No comment entered. Ordering Provider: DAMION JEAN Report Released Date/Time: Aug 11, 2023 10:20 AM Reporting Lab: [address] [address] Performing Lab: [address] [address] TOTAL 25-HYDROXY VITAMIN D 53.6 ng/mL 30 -100 Jan 18, 2024 10:09 AM [facility] MAGNESIUM BLOOD Specimen Type: BLOOD No comment entered. Ordering Provider: DMAION JEAN Report Released Date/Time: Aug 11, 2023 10:20 AM Reporting Lab: [facility] [address] [facility] [address] Performing Lab: [facility] [address] [facility] [address] MAGNESIUM 1.9 mg/dL 1.9-2.7 Jan 18, 2024 10:09 AM [facility] FREE T-4 BLOOD Specimen Type: BLOOD No comment entered. Ordering Provider: SUHAIL HOWARD MD Report Released Date/Time: Aug 16, 2023 08:31 AM Reporting Lab: [address] Performing Lab: [place] [address] FREE T-4 0.73 ng/dL 0.61-1.12 Jan 18, 2024 10:09 AM [facility] TSH BLOOD Specimen Type: BLOOD No comment entered. Ordering Provider: SUHAIL HOWARD MD Report Released Date/Time: Aug 16, 2023 08:31 AM Reporting Lab: [place] [id number] Performing Lab: [address] TSH 1.816 u[IU]/mL 0.45-5.33 Jan 18, 2024 10:09 AM [facility] RENAL FUNCTION PANEL (AA) BLOOD Specimen Type : BLOOD No comment entered. Ordering Provider: DAMION JEAN Report Released Date/Time: Aug 11, 2023 10:20 AM Reporting Lab: [facility] [address] [facility] [address] Performing Lab: [facility] [address] [facility] [address] CREATININE 2.6 mg/dL H 0.6-1.3 UREA NITROGEN 41 mg/dL H 7-25 GLUCOSE 150 mg/dL H 74-109 SODIUM 140 mmol/L 136-145 POTASSIUM 4.5 mmol/L 3.5-5.1 CHLORIDE 105 mmol/L 98-107 CO2 29 mmol/L 21-31 CALCIUM 9.4 mg/dL 8.6-10.3 PO4 5.2 mg/dL H 2.5-5 ALBUMIN 4.3 g/dL 3.5-5.7 EGFR 26 mL/min/{1.73_m2} Jan 18, 2024 10:09 AM [facility] PSA BLOOD Specimen Type: BLOOD No comment entered. Ordering Provider: SUHAIL HOWARD MD Report Released Date/Time: Aug 16, 2023 08:51 AM Reporting Lab: [address] Performing Lab: [place] [id number] PSA 1.561 ng/mL <4.000 Jan 18, 2024 10:09 AM [facility] HGB A1C (with eAG) BLOOD Specimen Ty pe: BLOOD No comment entered. Ordering Provider: SUHAIL HOWARD MD Report Released Date/Time: Aug 16, 2023 08:31 AM Reporting Lab: [address] [facility] [address] Performing Lab: [address] [facility] [address] HGB A1C 5.6 4.0-6.0 ESTIMATE AVG GLUCOSE 114 mg/dL Jan 18, 2024 10:09 AM [facility] CBC WITH DIFFERENTIAL BLOOD Specimen Type: BL OOD No comment entered. Ordering Provider: DAMION JEAN Report Released Date/Time: Aug 11, 2023 10:20 AM Reporting Lab: [address] [facility] [address] Performing Lab: [address] [facility] [address] WBC 7.59 10*3/uL 4.00-11.00 RBC 4.65 10*6/uL [...] 0.0-0.5 NRBC% 0.0 NRBC# <0.01 10*3/uL 0.000-0.012 Vital Signs: All taken on the encounter date This section contains inpatient and outpatient Vital Signs collected on the date of the Encounter. Date/Time Temperature Pulse Blood Pressure Respiratory Rate SP02 Pain Height Weight Body Mass Index Source Feb 16, 2024 09:48 AM 143/89 [facility] Feb 16, 2024 09:46 AM 97.5 59 145/96 16 96 0 194.7 30 [facility] Encounter Notes: All associated encounter notes This section contains the clinical notes associated to the Encounter. Date/Time Encounter Note(s) Provider Source May 24, 2024 08:02 AM ADDENDUM: LOCAL TITLE: Addendum STANDARD TITLE: ADDENDUM DATE OF NOTE: MAY 24, 2024@08:02:08 ENTRY DATE: MAY 24, 2024@08:02:09 AUTHOR: THANH BRISCOE EXP COSIGNER: URGENCY: STATUS: COMPLETED [place] left yesterday. Stated he had a back injection May 18, BP that day 122/86. 05/20: 157/96 Subsequent BPs, no dates reported: 115/78, 166/64, 119/72, 148/102, 126/82, 123/80. On 05/23 3:35pm: 102/70. /homar/ THANH BRISCOE Registered Nurse Signed: 05/24/2024 08:07 Receipt Acknowledged By: 05/24/2024 09:04 /homar/ DAMION JEAN Attending Physician, Nephrology --- Original Document --- 02/16/24 NEPHROLOGY OUTPATIENT FOLLOW-UP: Nephrology Follow up HPI:Followed for CKD. PMH of HTN (2012) DM (2012), LUTS (private urologist), afib on [facility] referred for evaluation of CKD with A3 level proteinuria. EGFR varied within the G3a-b range since at at least 2017 range ~35-55. Unclear etiology of variability or if recent trends are NICHOLAS, progression, or just variability. His current 's previous was on dialysis LAST VISIT: 08/2023. increased his lisinopril to 10 mg daily decreased amlodipine INTERVAL HISTORY:we weaned off his amlodipine and added spironolactone due to proteinuria. BP was variable and at times low so changed his coreg to metoprolol. Checking BP at home > 140 systolic: denies new lightheadedness/dizziness no new edema no orthopnea no new HUMPHRIES no new LUTS no NSAID use Medications specifically reviewed: lisinopril 40 mg daily (STOPPED ~ january 03 due to HTN) metoprolol succinate 50 mg BID (rx from PCP) spironolactone 12.5 mg or 25 mg daily not sure apixaban atorvastatin glargine ozempic jardiance ranolazine gabapentin 300 mg BID finasteride tamsulosin pantoprazole d3 Exam: nad regular HR clear lungs soft abd no edema Labs: Reviewed in CPRS, of particular note: 01/18/2024 Cr 2.6 (variable but worsening trend over the last year. 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 His med regimen has not bee stable which may be confounding data. I am concerned about progression given heavy proteinuria. HTN: Goal BP 120-30/80 by home monitoring without orthostasis, reviewed proper BP technique. PCP stopped lisinopril due to hypotension. However, spironolactone was continued. BP was indeed low. We discussed today the central importance of lisinopril (or any TEJ/ARB) in his management as we well as jardiance and that these medications should not be discontinued or adjusted without discussing with me first. will resume lisinopril today at 10 mg daily with goal of uptitrating back to maximal dose. I also changed his metop tart to metop succinate (both 50 mg BID) per preference of PCP. I stopped his spironolactone. We also discussed variable BPs (common with DKD) and orthostasis and conservative measures to prevent/minimize these without adjusting medications. DM: Target A1C ~7 as tolerated without hypoglycemia. A1C at goal, on glp1, sglt2i. resuming TEJ today. 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 Follow up plan: stop axel resume lisinopril 10 mg daily labs 2 weeks change metop to succinate per PCP request discussed that I will take lead on BP med changes and to discuss these with me. emphasized need for ACEi (lisinopril) and sglt2i due to DKD with heavy proteinuria to reduce risk of progression. need to discuss planning next appt. Provided card to give to PCP. Very happy to discuss med changes if there are questions. RTC 4 months, labs prior. Early f/u due to non-optimization and advanced CKD. time spent 45 min discussing above /antonia JEAN Attending Physician, Nephrology Signed: 02/16/2024 12:40 03/05/2024 ADDENDUM STATUS: COMPLETED lab stable on lisinopril 10 mg daily. If there has been no new lightheadedness and home BP > 125 mg systolic, I would like to increase to lisinopril 20 mg daily with lab work again in 2 weeks. If BP low or orthostasis present, continue 10 mg daily. Can you let him know and inquire about BPs? /antonia JEAN Attending Physician, Nephrology Signed: 03/05/2024 16:09 Receipt Acknowledged By: 03/06/2024 13:19 /homar/ THANH BRISCOE Registered Nurse 03/06/2024 ADDENDUM STATUS: COMPLETED Spoke with , reviewed stable labs per Dr. Jean on Lisinopril 10mg. No dizziness or lightheadedness. BPs over the last few days 125/85-166/92, only 3 of the BP readings that are taken twice daily from 02/17 until today were less than [address] Jean, will increase Lisinopril to 10mg daily, labs in 2 weeks. Will call this medical technical writer when completed with updated BP log. Will ask Dr. Jean to write new RX as he only has 8 tablets on hand now. /homar/ THANH BRISCOE Registered Nurse Signed: 03/06/2024 13:28 Receipt Acknowledged By: 03/06/2024 13:54 /homar/ DAMION JEAN Attending Physician, Nephrology 03/29/2024 ADDENDUM STATUS: COMPLETED lab work stable on 20 mg daily lisinopril. Assuming his BP now is not consistently < 125, will plan to push up to 40 mg. Can you let him know and alert me of current BPs? if increasing lisinopril will need lab work again in 2 weeks after change, just as before. /homar/ DAMION JEAN Attending Physician, Nephrology Signed: 03/29/2024 12:06 Receipt Acknowledged By: 03/30/2024 13:37 /homar/ THANH BRISCOE Registered Nurse 03/30/2024 ADDENDUM STATUS: COMPLETED Spoke with , reviewed lab results per Dr. Jean. He has mistakingly been taking (2)20mg Lisnopril tablets daily since receiving new Rx for 20mg tabs the end of Feb. BP log provided, all BPS are while taking 40mg. Weight has been 193-197 lbs., is drinking 64oz. water daily plus other fluids. Has not changed anything else in his regime. Was inquiring if Dr. Jean had spoken with outside PCP Dr. Mason Membreno ([phone]) regarding Lisinopril use. [place]apa thinks BPs were better on lower doses. Discussed will inform Dr. Jean and call with changes. Will remain taking Lisinopril 40mg at present. AM PM 03/09 130/84 131/87 11 129/79 182/102 03/11 134/89 183/107 03/12 147/81 151/98 03/13 122/82 155/92 03/14 149/93 164/95 03/15 140/75 159/96 03/16 137/89 159/100 03/17 173/98 181/103 03/18 181/106 159/101 03/19 183/101 160/108 03/20 168/105 209/107 03/21 215/111 185/101 03/22 152/110 203/106 03/23 151/104 127/89 03/24 125/96 158/101 03/25 158/110 152/89 03/26 161/102 141/96 03/27 149/97 159/97 03/28 154/104 167/98 03/29 158/103 173/105 /homar/ THANH BRISCOE Registered Nurse Signed: 03/30/2024 13:37 Receipt Acknowledged By: 03/30/2024 18:14 /homar/ DAMION JEAN Attending Physician, Nephrology 03/30/2024 ADDENDUM STATUS: COMPLETED [place] also asked if he should be taking Spironolactone, is not currently. Dicussed per Dr. Jean's clinic note on 02/15 this was stopped then. /homar/ THANH BRISCOE Registered Nurse Signed: 03/30/2024 13:44 Receipt Acknowledged By: 03/30/2024 18:13 /homar/ DAMION JEAN Attending Physician, Nephrology 03/30/2024 ADDENDUM STATUS: COMPLETED OK. In that case, he should resume the spironolactone 12.5 mg daily. He will need lab work 2 weeks after the change. I updated the Rx's. I have have not been contacted by his PCP. I will manage the BP meds but am very happy to talk to Dr. Membreno if he has questions. /homar/ DAMION JEAN Attending Physician, Nephrology Signed: 03/30/2024 18:20 Receipt Acknowledged By: 04/02/2024 13:44 /homar/ THANH BRISCOE Registered Nurse 04/02/2024 ADDENDUM STATUS: COMPLETED Spoke with , discussed Dr. Jean would like to restart Spironolactone 12.5mg. 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 States he has been experiencing lower back pain radiating down leg. Discussed pain could be adding to the hypertension, is seeing outside pain clinic on Apr 17. /homar/ THANH BRISCOE Registered Nurse Signed: 04/02/2024 13:53 Receipt Acknowledged By: 04/02/2024 15:55 /homar/ DAMION JEAN Attending Physician, Nephrology 04/27/2024 ADDENDUM STATUS: COMPLETED please let him know lab work is stable on spironolactone. Can we get an update on BPs? /homar/ DAMION JEAN Attending Physician, Nephrology Signed: 04/27/2024 07:46 Receipt Acknowledged By: 04/27/2024 12:26 /homar/ THANH BRISCOE Registered Nurse 04/27/2024 ADDENDUM STATUS: COMPLETED Spoke with , reviewed lab results stable on Spironolactone per Dr. Jean. Is still having high level of lower back pain into legs, having ablation May 17 at outside [facility]. He believes the pain really adds to his hypertension. Feels at his baseline otherwise, no changes. Reports the following BPS after starting Spironolactone, first ones daily are prior to taking meds: 04/15: 134/91 139/88 04/16: 161/100 151/104 04/17: 174/103 158/97 04/18: 163/109 154/101 12: 153/109 132/98 04/21: 169/103 not done 04/22: 157/92 04/23: 162/101 152/96 04/24: 165/101 not done 04/25: 152/101 125/94 04/26: 160/100 160/105 04/27: 188/102 (after running upstairs to answer phone) /homar/ THANH BRISCOE Registered Nurse Signed: 04/27/2024 12:44 Receipt Acknowledged By: 04/27/2024 16:43 /homar/ DAMION JEAN Attending Physician, Nephrology 04/27/2024 ADDENDUM STATUS: COMPLETED please ask him to increase spironolactone to 25 mg daily with albs in 2 weeks and update on BPs. If BP fall after procedure due to pain relief, he should hold it and call me. /es/ DAMION JEAN Attending Physician, Nephrology Signed: 04/27/2024 16:57 Receipt Acknowledged By: 05/03/2024 12:59 /homar/ THANH BRISCOE Registered Nurse 05/03/2024 ADDENDUM STATUS: COMPLETED Spoke with . He will increase the Spironolactone to 25mg daily, obtain labs in 2 weeks and call with BP log then. /homar/ THANH BRISCOE Registered Nurse Signed: 05/03/2024 13:02 05/17/2024 ADDENDUM STATUS: COMPLETED labs with some flucuating but in his typical range. hold on current med doses for now. Lab again in about 1 month a few weeks before I see him at the end of Jun. /homar/ DAMION JEAN Attending Physician, Nephrology Signed: 05/17/2024 11:53 Receipt Acknowledged By: 05/18/2024 13:08 /homar/ THANH BRISCOE Registered Nurse 05/18/2024 ADDENDUM STATUS: COMPLETED Spoke with , reviewed stable lab results per Dr. Jean, labs in one month. /homar/ THANH BRISCOE Registered Nurse Signed: 05/18/2024 13:09 THANH BRISCOE [facility] May 17, 2024 11:52 AM ADDENDUM: LOCAL TITLE: Addendum STANDARD TITLE: ADDENDUM DATE OF NOTE: MAY 17, 2024@11:52:04 ENTRY DATE: MAY 17, 2024@11:52:05 AUTHOR: DAMION JEAN EXP COSIGNER: URGENCY: STATUS: COMPLETED labs with some flucuating but in his typical range. hold on current med doses for now. Lab again in about 1 month a few weeks before I see him at the end of Jun. /antonia JEAN Attending Physician, Nephrology Signed: 05/17/2024 11:53 Receipt Acknowledged By: 05/18/2024 13:08 /homar/ THANH BRISCOE Registered Nurse --- Original Document --- 02/16/24 NEPHROLOGY OUTPATIENT FOLLOW-UP: Nephrology Follow up HPI:Followed for CKD. PMH of HTN (2012) DM (2012), LUTS (private urologist), afib on [facility] referred for evaluation of CKD with A3 level proteinuria. EGFR varied within the G3a-b range since at at least 2017 range ~35-55. Unclear etiology of variability or if recent trends are NICHOLAS, progression, or just variability. His current 's previous was on dialysis LAST VISIT: 08/2023. increased his lisinopril to 10 mg daily decreased amlodipine INTERVAL HISTORY:we weaned off his amlodipine and added spironolactone due to proteinuria. BP was variable and at times low so changed his coreg to metoprolol. Checking BP at home > 140 systolic: denies new lightheadedness/dizziness no new edema no orthopnea no new HUMPHRIES no new LUTS no NSAID use Medications specifically reviewed: lisinopril 40 mg daily (STOPPED ~ january 03 due to HTN) metoprolol succinate 50 mg BID (rx from PCP) spironolactone 12.5 mg or 25 mg daily not sure apixaban atorvastatin glargine ozempic jardiance ranolazine gabapentin 300 mg BID finasteride tamsulosin pantoprazole d3 Exam: nad regular HR clear lungs soft abd no edema Labs: Reviewed in CPRS, of particular note: 01/18/2024 Cr 2.6 (variable but worsening trend over the last year. 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 His med regimen has not bee stable which may be confounding data. I am concerned about progression given heavy proteinuria. HTN: Goal BP 120-30/80 by home monitoring without orthostasis, reviewed proper BP technique. PCP stopped lisinopril due to hypotension. However, spironolactone was continued. BP was indeed low. We discussed today the central importance of lisinopril (or any TEJ/ARB) in his management as we well as jardiance and that these medications should not be discontinued or adjusted without discussing with me first. will resume lisinopril today at 10 mg daily with goal of uptitrating back to maximal dose. I also changed his metop tart to metop succinate (both 50 mg BID) per preference of PCP. I stopped his spironolactone. We also discussed variable BPs (common with DKD) and orthostasis and conservative measures to prevent/minimize these without adjusting medications. DM: Target A1C ~7 as tolerated without hypoglycemia. A1C at goal, on glp1, sglt2i. resuming TEJ today. 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 Follow up plan: stop axel resume lisinopril 10 mg daily labs 2 weeks change metop to succinate per PCP request discussed that I will take lead on BP med changes and to discuss these with me. emphasized need for ACEi (lisinopril) and sglt2i due to DKD with heavy proteinuria to reduce risk of progression. need to discuss planning next appt. Provided card to give to PCP. Very happy to discuss med changes if there are questions. RTC 4 months, labs prior. Early f/u due to non-optimization and advanced CKD. time spent 45 min discussing above /homar/ DAMION JEAN Attending Physician, Nephrology Signed: 02/16/2024 12:40 03/05/2024 ADDENDUM STATUS: COMPLETED lab stable on lisinopril 10 mg daily. If there has been no new lightheadedness and home BP > 125 mg systolic, I would like to increase to lisinopril 20 mg daily with lab work again in 2 weeks. If BP low or orthostasis present, continue 10 mg daily. Can you let him know and inquire about BPs? /antonia JEAN Attending Physician, Nephrology Signed: 03/05/2024 16:09 Receipt Acknowledged By: 03/06/2024 13:19 /homar/ THANH BRISCOE Registered Nurse 03/06/2024 ADDENDUM STATUS: COMPLETED Spoke with , reviewed stable labs per Dr. Jean on Lisinopril 10mg. No dizziness or lightheadedness. BPs over the last few days 125/85-166/92, only 3 of the BP readings that are taken twice daily from 02/17 until today were less than [address] Jean, will increase Lisinopril to 10mg daily, labs in 2 weeks. Will call this medical technical writer when completed with updated BP log. Will ask Dr. Jean to write new RX as he only has 8 tablets on hand now. /homar/ THANH BRISCOE Registered Nurse Signed: 03/06/2024 13:28 Receipt Acknowledged By: 03/06/2024 13:54 /homar/ DAMION JEAN Attending Physician, Nephrology 03/29/2024 ADDENDUM STATUS: COMPLETED lab work stable on 20 mg daily lisinopril. Assuming his BP now is not consistently < 125, will plan to push up to 40 mg. Can you let him know and alert me of current BPs? if increasing lisinopril will need lab work again in 2 weeks after change, just as before. /homar/ DAMION JEAN Attending Physician, Nephrology Signed: 03/29/2024 12:06 Receipt Acknowledged By: 03/30/2024 13:37 /homar/ THANH BRISCOE Registered Nurse 03/30/2024 ADDENDUM STATUS: COMPLETED Spoke with , reviewed lab results per Dr. Jean. He has mistakingly been taking (2)20mg Lisnopril tablets daily since receiving new Rx for 20mg tabs the end of Feb. BP log provided, all BPS are while taking 40mg. Weight has been 193-197 lbs., is drinking 64oz. water daily plus other fluids. Has not changed anything else in his regime. Was inquiring if Dr. Jean had spoken with outside PCP Dr. Mason Membreno ([phone]) regarding Lisinopril use. [place] thinks BPs were better on lower doses. Discussed will inform Dr. Jean and call with changes. Will remain taking Lisinopril 40mg at present. AM PM 03/09 130/84 131/87 03/10 129/79 182/102 03/11 134/89 183/107 03/12 147/81 151/98 03/13 122/82 155/92 03/14 149/93 164/95 03/15 140/75 159/96 03/16 137/89 159/100 11 173/98 181/103 03/18 181/106 159/101 03/19 183/101 160/108 03/20 168/105 209/107 03/21 215/111 185/101 03/22 152/110 203/106 03/23 151/104 127/89 03/24 125/96 158/101 03/25 158/110 152/89 03/26 161/102 141/96 03/27 149/97 159/97 03/28 154/104 167/98 03/29 158/103 173/105 /es/ THANH BRISCOE Registered Nurse Signed: 03/30/2024 13:37 Receipt Acknowledged By: 03/30/2024 18:14 /homar/ DAMION JEAN Attending Physician, Nephrology 03/30/2024 ADDENDUM STATUS: COMPLETED [place] also asked if he should be taking Spironolactone, is not currently. Dicussed per Dr. Jean's clinic note on 02/15 this was stopped then. /homar/ THANH BRISCOE Registered Nurse Signed: 03/30/2024 13:44 Receipt Acknowledged By: 03/30/2024 18:13 /homar/ DAMION JEAN Attending Physician, Nephrology 03/30/2024 ADDENDUM STATUS: COMPLETED OK. In that case, he should resume the spironolactone 12.5 mg daily. He will need lab work 2 weeks after the change. I updated the Rx's. I have have not been contacted by his PCP. I will manage the BP meds but am very happy to talk to Dr. Membreno if he has questions. /homar/ DAMION JEAN Attending Physician, Nephrology Signed: 03/30/2024 18:20 Receipt Acknowledged By: 04/02/2024 13:44 /homar/ THANH BRISCOE Registered Nurse 04/02/2024 ADDENDUM STATUS: COMPLETED Spoke with , discussed Dr. Jean would like to restart Spironolactone 12.5mg. 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 States he has been experiencing lower back pain radiating down leg. Discussed pain could be adding to the hypertension, is seeing outside pain clinic on Apr 17. /homar/ THANH BRISCOE Registered Nurse Signed: 04/02/2024 13:53 Receipt Acknowledged By: 04/02/2024 15:55 /homar/ DAMION JEAN Attending Physician, Nephrology 04/27/2024 ADDENDUM STATUS: COMPLETED please let him know lab work is stable on spironolactone. Can we get an update on BPs? /antonia JEAN Attending Physician, Nephrology Signed: 04/27/2024 07:46 Receipt Acknowledged By: 04/27/2024 12:26 /homar/ THANH BRISCOE Registered Nurse 04/27/2024 ADDENDUM STATUS: COMPLETED Spoke with , reviewed lab results stable on Spironolactone per Dr. Jean. Is still having high level of lower back pain into legs, having ablation May 17 at outside [facility]. He believes the pain really adds to his hypertension. Feels at his baseline otherwise, no changes. Reports the following BPS after starting Spironolactone, first ones daily are prior to taking meds: 04/15: 134/91 139/88 04/16: 161/100 151/104 04/17: 174/103 158/97 04/18: 163/109 154/101 04/20: 153/109 132/98 04/21: 169/103 not done 04/22: 157/92 04/23: 162/101 152/96 12: 165/101 not done 04/25: 152/101 125/94 04/26: 160/100 160/105 04/27: 188/102 (after running upstairs to answer phone) /homar/ THANH BRISCOE Registered Nurse Signed: 04/27/2024 12:44 Receipt Acknowledged By: 04/27/2024 16:43 /homar/ DAMION JEAN Attending Physician, Nephrology 04/27/2024 ADDENDUM STATUS: COMPLETED please ask him to increase spironolactone to 25 mg daily with albs in 2 weeks and update on BPs. If BP fall after procedure due to pain relief, he should hold it and call me. /antonia JEAN Attending Physician, Nephrology Signed: 04/27/2024 16:57 Receipt Acknowledged By: 05/03/2024 12:59 /homar/ THANH BRISCOE Registered Nurse 05/03/2024 ADDENDUM STATUS: COMPLETED Spoke with . He will increase the Spironolactone to 25mg daily, obtain labs in 2 weeks and call with BP log then. /homar/ THANH BRISCOE Registered Nurse Signed: 05/03/2024 13:02 05/18/2024 ADDENDUM STATUS: UNSIGNED You may not VIEW this UNSIGNED Addendum. DAMION JEAN [facility] Apr 27, 2024 04:46 PM ADDENDUM: LOCAL TITLE: Addendum STANDARD TITLE: ADDENDUM DATE OF NOTE: APR 27, 2024@16:46:10 ENTRY DATE: APR 27, 2024@16:46:10 AUTHOR: DAMION JEAN EXP COSIGNER: URGENCY: STATUS: COMPLETED please ask him to increase spironolactone to 25 mg daily with albs in 2 weeks and update on BPs. If BP fall after procedure due to pain relief, he should hold it and call me. /antonia JEAN Attending Physician, Nephrology Signed: 04/27/2024 16:57 Receipt Acknowledged By: 05/03/2024 12:59 /homar/ THANH BRISCOE Registered Nurse --- Original Document --- 02/16/24 NEPHROLOGY OUTPATIENT FOLLOW-UP: Nephrology Follow up HPI:Followed for CKD. PMH of HTN (2012) DM (2012), LUTS (private urologist), afib on [facility] referred for evaluation of CKD with A3 level proteinuria. EGFR varied within the G3a-b range since at at least 2017 range ~35-55. Unclear etiology of variability or if recent trends are NICHOLAS, progression, or just variability. His current 's previous was on dialysis LAST VISIT: 08/2023. increased his lisinopril to 10 mg daily decreased amlodipine INTERVAL HISTORY:we weaned off his amlodipine and added spironolactone due to proteinuria. BP was variable and at times low so changed his coreg to metoprolol. Checking BP at home > 140 systolic: denies new lightheadedness/dizziness no new edema no orthopnea no new HUMPHRIES no new LUTS no NSAID use Medications specifically reviewed: lisinopril 40 mg daily (STOPPED ~ january 03 due to HTN) metoprolol succinate 50 mg BID (rx from PCP) spironolactone 12.5 mg or 25 mg daily not sure apixaban atorvastatin glargine ozempic jardiance ranolazine gabapentin 300 mg BID finasteride tamsulosin pantoprazole d3 Exam: nad regular HR clear lungs soft abd no edema Labs: Reviewed in CPRS, of particular note: 01/18/2024 Cr 2.6 (variable but worsening trend over the last year. 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 His med regimen has not bee stable which may be confounding data. I am concerned about progression given heavy proteinuria. HTN: Goal BP 120-30/80 by home monitoring without orthostasis, reviewed proper BP technique. PCP stopped lisinopril due to hypotension. However, spironolactone was continued. BP was indeed low. We discussed today the central importance of lisinopril (or any TEJ/ARB) in his management as we well as jardiance and that these medications should not be discontinued or adjusted without discussing with me first. will resume lisinopril today at 10 mg daily with goal of uptitrating back to maximal dose. I also changed his metop tart to metop succinate (both 50 mg BID) per preference of PCP. I stopped his spironolactone. We also discussed variable BPs (common with DKD) and orthostasis and conservative measures to prevent/minimize these without adjusting medications. DM: Target A1C ~7 as tolerated without hypoglycemia. A1C at goal, on glp1, sglt2i. resuming TEJ today. 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 Follow up plan: stop axel resume lisinopril 10 mg daily labs 2 weeks change metop to succinate per PCP request discussed that I will take lead on BP med changes and to discuss these with me. emphasized need for ACEi (lisinopril) and sglt2i due to DKD with heavy proteinuria to reduce risk of progression. need to discuss planning next appt. Provided card to give to PCP. Very happy to discuss med changes if there are questions. RTC 4 months, labs prior. Early f/u due to non-optimization and advanced CKD. time spent 45 min discussing above /antonia JEAN Attending Physician, Nephrology Signed: 02/16/2024 12:40 03/05/2024 ADDENDUM STATUS: COMPLETED lab stable on lisinopril 10 mg daily. If there has been no new lightheadedness and home BP > 125 mg systolic, I would like to increase to lisinopril 20 mg daily with lab work again in 2 weeks. If BP low or orthostasis present, continue 10 mg daily. Can you let him know and inquire about BPs? /antonia JEAN Attending Physician, Nephrology Signed: 03/05/2024 16:09 Receipt Acknowledged By: 03/06/2024 13:19 /homar/ THANH BRISCOE Registered Nurse 03/06/2024 ADDENDUM STATUS: COMPLETED Spoke with , reviewed stable labs per Dr. Jean on Lisinopril 10mg. No dizziness or lightheadedness. BPs over the last few days 125/85-166/92, only 3 of the BP readings that are taken twice daily from 02/17 until today were less than [address] Jean, will increase Lisinopril to 10mg daily, labs in 2 weeks. Will call this medical technical writer when completed with updated BP log. Will ask Dr. Jean to write new RX as he only has 8 tablets on hand now. /homar/ THANH BRISCOE Registered Nurse Signed: 03/06/2024 13:28 Receipt Acknowledged By: 03/06/2024 13:54 /antonia JEAN Attending Physician, Nephrology 03/29/2024 ADDENDUM STATUS: COMPLETED lab work stable on 20 mg daily lisinopril. Assuming his BP now is not consistently < 125, will plan to push up to 40 mg. Can you let him know and alert me of current BPs? if increasing lisinopril will need lab work again in 2 weeks after change, just as before. /homar/ DAMION JEAN Attending Physician, Nephrology Signed: 03/29/2024 12:06 Receipt Acknowledged By: 03/30/2024 13:37 /es/ THANH BRISCOE Registered Nurse 03/30/2024 ADDENDUM STATUS: COMPLETED Spoke with , reviewed lab results per Dr. Jean. He has mistakingly been taking (2)20mg Lisnopril tablets daily since receiving new Rx for 20mg tabs the end of Feb. BP log provided, all BPS are while taking 40mg. Weight has been 193-197 lbs., is drinking 64oz. water daily plus other fluids. Has not changed anything else in his regime. Was inquiring if Dr. Jean had spoken with outside PCP Dr. Mason Membreno ([phone]) regarding Lisinopril use. thinks BPs were better on lower doses. Discussed will inform Dr. Jean and call with changes. Will remain taking Lisinopril 40mg at present. AM PM 03/09 130/84 131/87 03/10 129/79 182/102 03/11 134/89 183/107 03/12 147/81 151/98 03/13 122/82 155/92 03/14 149/93 164/95 03/15 140/75 159/96 03/16 137/89 159/100 03/17 173/98 181/103 03/18 181/106 159/101 03/19 183/101 160/108 03/20 168/105 209/107 03/21 215/111 185/101 03/22 152/110 203/106 03/23 151/104 127/89 03/24 125/96 158/101 03/25 158/110 152/89 03/26 161/102 141/96 03/27 149/97 159/97 03/28 154/104 167/98 03/29 158/103 173/105 /homar/ THANH BRISCOE Registered Nurse Signed: 03/30/2024 13:37 Receipt Acknowledged By: 03/30/2024 18:14 /homar/ DAMION JEAN Attending Physician, Nephrology 03/30/2024 ADDENDUM STATUS: COMPLETED [place] also asked if he should be taking Spironolactone, is not currently. Dicussed per Dr. Jean's clinic note on 02/15 this was stopped then. /homar/ THANH BRISCOE Registered Nurse Signed: 03/30/2024 13:44 Receipt Acknowledged By: 03/30/2024 18:13 /antonia JEAN Attending Physician, Nephrology 03/30/2024 ADDENDUM STATUS: COMPLETED OK. In that case, he should resume the spironolactone 12.5 mg daily. He will need lab work 2 weeks after the change. I updated the Rx's. I have have not been contacted by his PCP. I will manage the BP meds but am very happy to talk to Dr. Membreno if he has questions. /antonia JEAN Attending Physician, Nephrology Signed: 03/30/2024 18:20 Receipt Acknowledged By: 04/02/2024 13:44 /homar/ THANH BRISCOE Registered Nurse 04/02/2024 ADDENDUM STATUS: COMPLETED Spoke with , discussed Dr. Jean would like to restart Spironolactone 12.5mg. 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 States he has been experiencing lower back pain radiating down leg. Discussed pain could be adding to the hypertension, is seeing outside pain clinic on Apr 17. /homar/ THANH BRISCOE Registered Nurse Signed: 04/02/2024 13:53 Receipt Acknowledged By: 04/02/2024 15:55 /homar/ DAMION JEAN Attending Physician, Nephrology 04/27/2024 ADDENDUM STATUS: COMPLETED please let him know lab work is stable on spironolactone. Can we get an update on BPs? /antonia JEAN Attending Physician, Nephrology Signed: 04/27/2024 07:46 Receipt Acknowledged By: 04/27/2024 12:26 /homar/ THANH BRISCOE Registered Nurse 04/27/2024 ADDENDUM STATUS: COMPLETED Spoke with , reviewed lab results stable on Spironolactone per Dr. Jean. Is still having high level of lower back pain into legs, having ablation May 17 at outside [facility]. He believes the pain really adds to his hypertension. Feels at his baseline otherwise, no changes. Reports the following BPS after starting Spironolactone, first ones daily are prior to taking meds: 04/15: 134/91 139/88 04/16: 161/100 151/104 04/17: 174/103 158/97 04/18: 163/109 154/101 04/20: 153/109 132/98 04/21: 169/103 not done 04/22: 157/92 04/23: 162/101 152/96 04/24: 165/101 not done 04/25: 152/101 125/94 04/26: 160/100 160/105 04/27: 188/102 (after running upstairs to answer phone) /homar/ THANH BRISCOE Registered Nurse Signed: 04/27/2024 12:44 Receipt Acknowledged By: 04/27/2024 16:43 /homar/ DAMION JEAN Attending Physician, Nephrology DAMION JEAN [facility] Apr 27, 2024 12:26 PM ADDENDUM: LOCAL TITLE: Addendum STANDARD TITLE: ADDENDUM DATE OF NOTE: APR 27, 2024@12:26:39 ENTRY DATE: APR 27, 2024@12:26:40 AUTHOR: THANH BRISCOE EXP COSIGNER: URGENCY: STATUS: COMPLETED Spoke with , reviewed lab results stable on Spironolactone per Dr. Jean. Is still having high level of lower back pain into legs, having ablation May 17 at outside [facility]. He believes the pain really adds to his hypertension. Feels at his baseline otherwise, no changes. Reports the following BPS after starting Spironolactone, first ones daily are prior to taking meds: 04/15: 134/91 139/88 04/16: 161/100 151/104 04/17: 174/103 158/97 04/18: 163/109 154/101 04/20: 153/109 132/98 04/21: 169/103 not done 04/22: 157/92 04/23: 162/101 152/96 04/24: 165/101 not done 04/25: 152/101 125/94 04/26: 160/100 160/105 04/27: 188/102 (after running upstairs to answer phone) /homar/ THANH BRISCOE Registered Nurse Signed: 04/27/2024 12:44 Receipt Acknowledged By: 04/27/2024 16:43 /homar/ DAMION JEAN Attending Physician, Nephrology --- Original Document --- 02/16/24 NEPHROLOGY OUTPATIENT FOLLOW-UP: Nephrology Follow up HPI:Followed for CKD. PMH of HTN (2012) DM (2012), LUTS (private urologist), afib on [facility] referred for evaluation of CKD with A3 level proteinuria. EGFR varied within the G3a-b range since at at least 2017 range ~35-55. Unclear etiology of variability or if recent trends are NICHOLAS, progression, or just variability. His current 's previous was on dialysis LAST VISIT: 08/2023. increased his lisinopril to 10 mg daily decreased amlodipine INTERVAL HISTORY:we weaned off his amlodipine and added spironolactone due to proteinuria. BP was variable and at times low so changed his coreg to metoprolol. Checking BP at home > 140 systolic: denies new lightheadedness/dizziness no new edema no orthopnea no new HUMPHRIES no new LUTS no NSAID use Medications specifically reviewed: lisinopril 40 mg daily (STOPPED ~ january 03 due to HTN) metoprolol succinate 50 mg BID (rx from PCP) spironolactone 12.5 mg or 25 mg daily not sure apixaban atorvastatin glargine ozempic jardiance ranolazine gabapentin 300 mg BID finasteride tamsulosin pantoprazole d3 Exam: nad regular HR clear lungs soft abd no edema Labs: Reviewed in CPRS, of particular note: 01/18/2024 Cr 2.6 (variable but worsening trend over the last year. 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 His med regimen has not bee stable which may be confounding data. I am concerned about progression given heavy proteinuria. HTN: Goal BP 120-30/80 by home monitoring without orthostasis, reviewed proper BP technique. PCP stopped lisinopril due to hypotension. However, spironolactone was continued. BP was indeed low. We discussed today the central importance of lisinopril (or any TEJ/ARB) in his management as we well as jardiance and that these medications should not be discontinued or adjusted without discussing with me first. will resume lisinopril today at 10 mg daily with goal of uptitrating back to maximal dose. I also changed his metop tart to metop succinate (both 50 mg BID) per preference of PCP. I stopped his spironolactone. We also discussed variable BPs (common with DKD) and orthostasis and conservative measures to prevent/minimize these without adjusting medications. DM: Target A1C ~7 as tolerated without hypoglycemia. A1C at goal, on glp1, sglt2i. resuming TEJ today. 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 Follow up plan: stop axel resume lisinopril 10 mg daily labs 2 weeks change metop to succinate per PCP request discussed that I will take lead on BP med changes and to discuss these with me. emphasized need for ACEi (lisinopril) and sglt2i due to DKD with heavy proteinuria to reduce risk of progression. need to discuss planning next appt. Provided card to give to PCP. Very happy to discuss med changes if there are questions. RTC 4 months, labs prior. Early f/u due to non-optimization and advanced CKD. time spent 45 min discussing above /homar/ DAMION JEAN Attending Physician, Nephrology Signed: 02/16/2024 12:40 03/05/2024 ADDENDUM STATUS: COMPLETED lab stable on lisinopril 10 mg daily. If there has been no new lightheadedness and home BP > 125 mg systolic, I would like to increase to lisinopril 20 mg daily with lab work again in 2 weeks. If BP low or orthostasis present, continue 10 mg daily. Can you let him know and inquire about BPs? /homar/ DAMION JEAN Attending Physician, Nephrology Signed: 03/05/2024 16:09 Receipt Acknowledged By: 03/06/2024 13:19 /homar/ THANH BRISCOE Registered Nurse 03/06/2024 ADDENDUM STATUS: COMPLETED Spoke with , reviewed stable labs per Dr. Jean on Lisinopril 10mg. No dizziness or lightheadedness. BPs over the last few days 125/85-166/92, only 3 of the BP readings that are taken twice daily from 02/17 until today were less than [address] Jean, will increase Lisinopril to 10mg daily, labs in 2 weeks. Will call this medical technical writer when completed with updated BP log. Will ask Dr. Jean to write new RX as he only has 8 tablets on hand now. /homar/ THANH BRISCOE Registered Nurse Signed: 03/06/2024 13:28 Receipt Acknowledged By: 03/06/2024 13:54 /homar/ DAMION JEAN Attending Physician, Nephrology 03/29/2024 ADDENDUM STATUS: COMPLETED lab work stable on 20 mg daily lisinopril. Assuming his BP now is not consistently < 125, will plan to push up to 40 mg. Can you let him know and alert me of current BPs? if increasing lisinopril will need lab work again in 2 weeks after change, just as before. /homar/ DAMION JEAN Attending Physician, Nephrology Signed: 03/29/2024 12:06 Receipt Acknowledged By: 03/30/2024 13:37 /homar/ THANH BRISCOE Registered Nurse 03/30/2024 ADDENDUM STATUS: COMPLETED Spoke with , reviewed lab results per Dr. Jean. He has mistakingly been taking (2)20mg Lisnopril tablets daily since receiving new Rx for 20mg tabs the end of Feb. BP log provided, all BPS are while taking 40mg. Weight has been 193-197 lbs., is drinking 64oz. water daily plus other fluids. Has not changed anything else in his regime. Was inquiring if Dr. Jean had spoken with outside PCP Dr. Mason Membreno ([phone]) regarding Lisinopril use. [place] thinks BPs were better on lower doses. Discussed will inform Dr. Jean and call with changes. Will remain taking Lisinopril 40mg at present. AM PM 03/09 130/84 131/87 03/10 129/79 182/102 03/11 134/89 183/107 03/12 147/81 151/98 03/13 122/82 155/92 03/14 149/93 164/95 03/15 140/75 159/96 03/16 137/89 159/100 03/17 173/98 181/103 03/18 181/106 159/101 03/19 183/101 160/108 03/20 168/105 209/107 03/21 215/111 185/101 03/22 152/110 203/106 03/23 151/104 127/89 03/24 125/96 158/101 03/25 158/110 152/89 03/26 161/102 141/96 03/27 149/97 159/97 03/28 154/104 167/98 03/29 158/103 173/105 /homar/ THANH BRISCOE Registered Nurse Signed: 03/30/2024 13:37 Receipt Acknowledged By: 03/30/2024 18:14 /homar/ DAMION JEAN Attending Physician, Nephrology 03/30/2024 ADDENDUM STATUS: COMPLETED [place] also asked if he should be taking Spironolactone, is not currently. Dicussed per Dr. Jean's clinic note on 02/15 this was stopped then. /homar/ THANH BRISCOE Registered Nurse Signed: 03/30/2024 13:44 Receipt Acknowledged By: 03/30/2024 18:13 /homar/ DAMION JEAN Attending Physician, Nephrology 03/30/2024 ADDENDUM STATUS: COMPLETED OK. In that case, he should resume the spironolactone 12.5 mg daily. He will need lab work 2 weeks after the change. I updated the Rx's. I have have not been contacted by his PCP. I will manage the BP meds but am very happy to talk to Dr. Membreno if he has questions. /homar/ DAMION JEAN Attending Physician, Nephrology Signed: 03/30/2024 18:20 Receipt Acknowledged By: 04/02/2024 13:44 /homar/ THANH BRISCOE Registered Nurse 04/02/2024 ADDENDUM STATUS: COMPLETED Spoke with , discussed Dr. Jean would like to restart Spironolactone 12.5mg. 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 States he has been experiencing lower back pain radiating down leg. Discussed pain could be adding to the hypertension, is seeing outside pain clinic on Apr 17. /homar/ THANH BRISCOE Registered Nurse Signed: 04/02/2024 13:53 Receipt Acknowledged By: 04/02/2024 15:55 /es/ DAMION JEAN Attending Physician, Nephrology 04/27/2024 ADDENDUM STATUS: COMPLETED please let him know lab work is stable on spironolactone. Can we get an update on BPs? /homar/ DAMION JEAN Attending Physician, Nephrology Signed: 04/27/2024 07:46 Receipt Acknowledged By: 04/27/2024 12:26 /homar/ THANH BRISCOE Registered Nurse THANH BRISCOE [facility] Apr 27, 2024 07:45 AM ADDENDUM: LOCAL TITLE: Addendum STANDARD TITLE: ADDENDUM DATE OF NOTE: APR 27, 2024@07:45:42 ENTRY DATE: APR 27, 2024@07:45:43 AUTHOR: DAMION JEAN COSIGNER: URGENCY: STATUS: COMPLETED please let him know lab work is stable on spironolactone. Can we get an update on BPs? /homar/ DAMION JEAN Attending Physician, Nephrology Signed: 04/27/2024 07:46 Receipt Acknowledged By: 04/27/2024 12:26 /homar/ THANH BRISCOE Registered Nurse --- Original Document --- 02/16/24 NEPHROLOGY OUTPATIENT FOLLOW-UP: Nephrology Follow up HPI:Followed for CKD. PMH of HTN (2013) DM (2013), LUTS (private urologist), afib on [facility] referred for evaluation of CKD with A3 level proteinuria. EGFR varied within the G3a-b range since at at least 2017 range ~35-55. Unclear etiology of variability or if recent trends are NICHOLAS, progression, or just variability. His current 's previous was on dialysis LAST VISIT: 08/2023. increased his lisinopril to 10 mg daily decreased amlodipine INTERVAL HISTORY:we weaned off his amlodipine and added spironolactone due to proteinuria. BP was variable and at times low so changed his coreg to metoprolol. Checking BP at home > 140 systolic: denies new lightheadedness/dizziness no new edema no orthopnea no new HUMPHRIES no new LUTS no NSAID use Medications specifically reviewed: lisinopril 40 mg daily (STOPPED ~ january 03 due to HTN) metoprolol succinate 50 mg BID (rx from PCP) spironolactone 12.5 mg or 25 mg daily not sure apixaban atorvastatin glargine ozempic jardiance ranolazine gabapentin 300 mg BID finasteride tamsulosin pantoprazole d3 Exam: nad regular HR clear lungs soft abd no edema Labs: Reviewed in CPRS, of particular note: 01/18/2024 Cr 2.6 (variable but worsening trend over the last year. 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 His med regimen has not bee stable which may be confounding data. I am concerned about progression given heavy proteinuria. HTN: Goal BP 120-30/80 by home monitoring without orthostasis, reviewed proper BP technique. PCP stopped lisinopril due to hypotension. However, spironolactone was continued. BP was indeed low. We discussed today the central importance of lisinopril (or any TEJ/ARB) in his management as we well as jardiance and that these medications should not be discontinued or adjusted without discussing with me first. will resume lisinopril today at 10 mg daily with goal of uptitrating back to maximal dose. I also changed his metop tart to metop succinate (both 50 mg BID) per preference of PCP. I stopped his spironolactone. We also discussed variable BPs (common with DKD) and orthostasis and conservative measures to prevent/minimize these without adjusting medications. DM: Target A1C ~7 as tolerated without hypoglycemia. A1C at goal, on glp1, sglt2i. resuming TEJ today. 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 Follow up plan: stop axel resume lisinopril 10 mg daily labs 2 weeks change metop to succinate per PCP request discussed that I will take lead on BP med changes and to discuss these with me. emphasized need for ACEi (lisinopril) and sglt2i due to DKD with heavy proteinuria to reduce risk of progression. need to discuss planning next appt. Provided card to give to PCP. Very happy to discuss med changes if there are questions. RTC 4 months, labs prior. Early f/u due to non-optimization and advanced CKD. time spent 45 min discussing above /homar/ DAMION JEAN Attending Physician, Nephrology Signed: 02/16/2024 12:40 03/05/2024 ADDENDUM STATUS: COMPLETED lab stable on lisinopril 10 mg daily. If there has been no new lightheadedness and home BP > 125 mg systolic, I would like to increase to lisinopril 20 mg daily with lab work again in 2 weeks. If BP low or orthostasis present, continue 10 mg daily. Can you let him know and inquire about BPs? /homar/ DAMION JEAN Attending Physician, Nephrology Signed: 03/05/2024 16:09 Receipt Acknowledged By: 03/06/2024 13:19 /homar/ THANH BRISCOE Registered Nurse 03/06/2024 ADDENDUM STATUS: COMPLETED Spoke with , reviewed stable labs per Dr. Jean on Lisinopril 10mg. No dizziness or lightheadedness. BPs over the last few days 125/85-166/92, only 3 of the BP readings that are taken twice daily from 02/17 until today were less than [address] Jean, will increase Lisinopril to 10mg daily, labs in 2 weeks. Will call this medical technical writer when completed with updated BP log. Will ask Dr. Jean to write new RX as he only has 8 tablets on hand now. /homar/ THANH BRISCOE Registered Nurse Signed: 03/06/2024 13:28 Receipt Acknowledged By: 03/06/2024 13:54 /homar/ DAMION JEAN Attending Physician, Nephrology 03/29/2024 ADDENDUM STATUS: COMPLETED lab work stable on 20 mg daily lisinopril. Assuming his BP now is not consistently < 125, will plan to push up to 40 mg. Can you let him know and alert me of current BPs? if increasing lisinopril will need lab work again in 2 weeks after change, just as before. /homar/ DAMION JEAN Attending Physician, Nephrology Signed: 03/29/2024 12:06 Receipt Acknowledged By: 03/30/2024 13:37 /homar/ THANH BRISCOE Registered Nurse 03/30/2024 ADDENDUM STATUS: COMPLETED Spoke with , reviewed lab results per Dr. Jean. He has mistakingly been taking (2)20mg Lisnopril tablets daily since receiving new Rx for 20mg tabs the end of Feb. BP log provided, all BPS are while taking 40mg. Weight has been 193-197 lbs., is drinking 64oz. water daily plus other fluids. Has not changed anything else in his regime. Was inquiring if Dr. Jean had spoken with outside PCP Dr. Mason Membreno ([phone]) regarding Lisinopril use. [place] thinks BPs were better on lower doses. Discussed will inform Dr. Jean and call with changes. Will remain taking Lisinopril 40mg at present. AM PM 03/09 130/84 131/87 03/10 129/79 182/102 03/11 134/89 183/107 03/12 147/81 151/98 11 122/82 155/92 11 149/93 164/95 03/15 140/75 159/96 03/16 137/89 159/100 03/17 173/98 181/103 03/18 181/106 159/101 03/19 183/101 160/108 03/20 168/105 209/107 03/21 215/111 185/101 03/22 152/110 203/106 03/23 151/104 127/89 03/24 125/96 158/101 03/25 158/110 152/89 03/26 161/102 141/96 03/27 149/97 159/97 03/28 154/104 167/98 03/29 158/103 173/105 /homar/ THANH BRISCOE Registered Nurse Signed: 03/30/2024 13:37 Receipt Acknowledged By: 03/30/2024 18:14 /homar/ DAMION JEAN Attending Physician, Nephrology 03/30/2024 ADDENDUM STATUS: COMPLETED also asked if he should be taking Spironolactone, is not currently. Dicussed per Dr. Jean's clinic note on 02/15 this was stopped then. /homar/ THANH BRISCOE Registered Nurse Signed: 03/30/2024 13:44 Receipt Acknowledged By: 03/30/2024 18:13 /homar/ DAMION JEAN Attending Physician, Nephrology 03/30/2024 ADDENDUM STATUS: COMPLETED OK. In that case, he should resume the spironolactone 12.5 mg daily. He will need lab work 2 weeks after the change. I updated the Rx's. I have have not been contacted by his PCP. I will manage the BP meds but am very happy to talk to Dr. Membreno if he has questions. /antonia JEAN Attending Physician, Nephrology Signed: 03/30/2024 18:20 Receipt Acknowledged By: 04/02/2024 13:44 /homar/ THANH BRISCOE Registered Nurse 04/02/2024 ADDENDUM STATUS: COMPLETED Spoke with , discussed Dr. Jean would like to restart Spironolactone 12.5mg. 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 States he has been experiencing lower back pain radiating down leg. Discussed pain could be adding to the hypertension, is seeing outside pain clinic on Apr 17. /antonia BRISCOE Registered Nurse Signed: 04/02/2024 13:53 Receipt Acknowledged By: 04/02/2024 15:55 /antonia JEAN Attending Physician, Nephrology 04/27/2024 ADDENDUM STATUS: UNSIGNED You may not VIEW this UNSIGNED Addendum. DAMION JEAN [facility] Apr 02, 2024 01:44 PM ADDENDUM: LOCAL TITLE: Addendum STANDARD TITLE: ADDENDUM DATE OF NOTE: APR 02, 2024@13:44:13 ENTRY DATE: APR 02, 2024@13:44:14 AUTHOR: THANH BRISCOE EXP COSIGNER: URGENCY: STATUS: COMPLETED Spoke with , discussed Dr. Jean would like to restart Spironolactone 12.5mg. 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 States he has been experiencing lower back pain radiating down leg. Discussed pain could be adding to the hypertension, is seeing outside pain clinic on Apr 17. /homar/ THANH BRISCOE Registered Nurse Signed: 04/02/2024 13:53 Receipt Acknowledged By: 04/02/2024 15:55 /es/ DAMION JEAN Attending Physician, Nephrology --- Original Document --- 02/16/24 NEPHROLOGY OUTPATIENT FOLLOW-UP: Nephrology Follow up HPI:Followed for CKD. PMH of HTN (2012) DM (2012), LUTS (private urologist), afib on [facility] referred for evaluation of CKD with A3 level proteinuria. EGFR varied within the G3a-b range since at at least 2017 range ~35-55. Unclear etiology of variability or if recent trends are NICHOLAS, progression, or just variability. His current 's previous was on dialysis LAST VISIT: 08/2023. increased his lisinopril to 10 mg daily decreased amlodipine INTERVAL HISTORY:we weaned off his amlodipine and added spironolactone due to proteinuria. BP was variable and at times low so changed his coreg to metoprolol. Checking BP at home > 140 systolic: denies new lightheadedness/dizziness no new edema no orthopnea no new HUMPHRIES no new LUTS no NSAID use Medications specifically reviewed: lisinopril 40 mg daily (STOPPED ~ january 03 due to HTN) metoprolol succinate 50 mg BID (rx from PCP) spironolactone 12.5 mg or 25 mg daily not sure apixaban atorvastatin glargine ozempic jardiance ranolazine gabapentin 300 mg BID finasteride tamsulosin pantoprazole d3 Exam: nad regular HR clear lungs soft abd no edema Labs: Reviewed in CPRS, of particular note: 01/18/2024 Cr 2.6 (variable but worsening trend over the last year. 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 His med regimen has not bee stable which may be confounding data. I am concerned about progression given heavy proteinuria. HTN: Goal BP 120-30/80 by home monitoring without orthostasis, reviewed proper BP technique. PCP stopped lisinopril due to hypotension. However, spironolactone was continued. BP was indeed low. We discussed today the central importance of lisinopril (or any TEJ/ARB) in his management as we well as jardiance and that these medications should not be discontinued or adjusted without discussing with me first. will resume lisinopril today at 10 mg daily with goal of uptitrating back to maximal dose. I also changed his metop tart to metop succinate (both 50 mg BID) per preference of PCP. I stopped his spironolactone. We also discussed variable BPs (common with DKD) and orthostasis and conservative measures to prevent/minimize these without adjusting medications. DM: Target A1C ~7 as tolerated without hypoglycemia. A1C at goal, on glp1, sglt2i. resuming TEJ today. 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 Follow up plan: stop axel resume lisinopril 10 mg daily labs 2 weeks change metop to succinate per PCP request discussed that I will take lead on BP med changes and to discuss these with me. emphasized need for ACEi (lisinopril) and sglt2i due to DKD with heavy proteinuria to reduce risk of progression. need to discuss planning next appt. Provided card to give to PCP. Very happy to discuss med changes if there are questions. RTC 4 months, labs prior. Early f/u due to non-optimization and advanced CKD. time spent 45 min discussing above /homar/ DAMION JEAN Attending Physician, Nephrology Signed: 02/16/2024 12:40 03/05/2024 ADDENDUM STATUS: COMPLETED lab stable on lisinopril 10 mg daily. If there has been no new lightheadedness and home BP > 125 mg systolic, I would like to increase to lisinopril 20 mg daily with lab work again in 2 weeks. If BP low or orthostasis present, continue 10 mg daily. Can you let him know and inquire about BPs? /antonia JEAN Attending Physician, Nephrology Signed: 03/05/2024 16:09 Receipt Acknowledged By: 03/06/2024 13:19 /homar/ THANH BRISCOE Registered Nurse 03/06/2024 ADDENDUM STATUS: COMPLETED Spoke with , reviewed stable labs per Dr. Jean on Lisinopril 10mg. No dizziness or lightheadedness. BPs over the last few days 125/85-166/92, only 3 of the BP readings that are taken twice daily from 02/17 until today were less than [address] Jean, will increase Lisinopril to 10mg daily, labs in 2 weeks. Will call this medical technical writer when completed with updated BP log. Will ask Dr. Jean to write new RX as he only has 8 tablets on hand now. /homar/ THANH BRISCOE Registered Nurse Signed: 03/06/2024 13:28 Receipt Acknowledged By: 03/06/2024 13:54 /homar/ DAMION JEAN Attending Physician, Nephrology 03/29/2024 ADDENDUM STATUS: COMPLETED lab work stable on 20 mg daily lisinopril. Assuming his BP now is not consistently < 125, will plan to push up to 40 mg. Can you let him know and alert me of current BPs? if increasing lisinopril will need lab work again in 2 weeks after change, just as before. /homar/ DAMION JEAN Attending Physician, Nephrology Signed: 03/29/2024 12:06 Receipt Acknowledged By: 03/30/2024 13:37 /es/ THANH BRISCOE Registered Nurse 03/30/2024 ADDENDUM STATUS: COMPLETED Spoke with , reviewed lab results per Dr. Jean. He has mistakingly been taking (2)20mg Lisnopril tablets daily since receiving new Rx for 20mg tabs the end of Feb. BP log provided, all BPS are while taking 40mg. Weight has been 193-197 lbs., is drinking 64oz. water daily plus other fluids. Has not changed anything else in his regime. Was inquiring if Dr. Jean had spoken with outside PCP Dr. Mason Membreno ([phone]) regarding Lisinopril use. [place] thinks BPs were better on lower doses. Discussed will inform Dr. Jean and call with changes. Will remain taking Lisinopril 40mg at present. AM PM 03/09 130/84 131/87 03/10 129/79 182/102 03/11 134/89 183/107 03/12 147/81 151/98 03/13 122/82 155/92 03/14 149/93 164/95 03/15 140/75 159/96 03/16 137/89 159/100 03/17 173/98 181/103 03/18 181/106 159/101 03/19 183/101 160/108 03/20 168/105 209/107 03/21 215/111 185/101 03/22 152/110 203/106 03/23 151/104 127/89 03/24 125/96 158/101 03/25 158/110 152/89 03/26 161/102 141/96 03/27 149/97 159/97 03/28 154/104 167/98 03/29 158/103 173/105 /homar/ THANH BRISCOE Registered Nurse Signed: 03/30/2024 13:37 Receipt Acknowledged By: 03/30/2024 18:14 /homar/ DAMION JEAN Attending Physician, Nephrology 03/30/2024 ADDENDUM STATUS: COMPLETED [place] also asked if he should be taking Spironolactone, is not currently. [place] per Dr. Jean's clinic note on 02/15 this was stopped then. /homar/ THANH BRISCOE Registered Nurse Signed: 03/30/2024 13:44 Receipt Acknowledged By: 03/30/2024 18:13 /homar/ DAMION JEAN Attending Physician, Nephrology 03/30/2024 ADDENDUM STATUS: COMPLETED OK. In that case, he should resume the spironolactone 12.5 mg daily. He will need lab work 2 weeks after the change. I updated the Rx's. I have have not been contacted by his PCP. I will manage the BP meds but am very happy to talk to Dr. Membreno if he has questions. /homar/ DAMION JEAN Attending Physician, Nephrology Signed: 03/30/2024 18:20 Receipt Acknowledged By: 04/02/2024 13:44 /homar/ THANH BRISCOE Registered Nurse THANH BRISCOE [facility] Mar 30, 2024 06:15 PM ADDENDUM: LOCAL TITLE: Addendum STANDARD TITLE: ADDENDUM DATE OF NOTE: MAR 30, 2024@18:15:12 ENTRY DATE: MAR 30, 2024@18:15:12 AUTHOR: DAMION JEAN EXP COSIGNER: URGENCY: STATUS: COMPLETED OK. In that case, he should resume the spironolactone 12.5 mg daily. He will need lab work 2 weeks after the change. I updated the Rx's. I have have not been contacted by his PCP. I will manage the BP meds but am very happy to talk to Dr. Membreno if he has questions. /homar/ DAMION JEAN Attending Physician, Nephrology Signed: 03/30/2024 18:20 Receipt Acknowledged By: 04/02/2024 13:44 /homar/ THANH BRISCOE Registered Nurse --- Original Document --- 02/16/24 NEPHROLOGY OUTPATIENT FOLLOW-UP: Nephrology Follow up HPI:Followed for CKD. PMH of HTN (2013) DM (2013), LUTS (private urologist), afib on [facility] referred for evaluation of CKD with A3 level proteinuria. EGFR varied within the G3a-b range since at at least 2017 range ~35-55. Unclear etiology of variability or if recent trends are NICHOLAS, progression, or just variability. His current 's previous was on dialysis LAST VISIT: 08/2023. increased his lisinopril to 10 mg daily decreased amlodipine INTERVAL HISTORY:we weaned off his amlodipine and added spironolactone due to proteinuria. BP was variable and at times low so changed his coreg to metoprolol. Checking BP at home > 140 systolic: denies new lightheadedness/dizziness no new edema no orthopnea no new HUMPHRIES no new LUTS no NSAID use Medications specifically reviewed: lisinopril 40 mg daily (STOPPED ~ january 03 due to HTN) metoprolol succinate 50 mg BID (rx from PCP) spironolactone 12.5 mg or 25 mg daily not sure apixaban atorvastatin glargine ozempic jardiance ranolazine gabapentin 300 mg BID finasteride tamsulosin pantoprazole d3 Exam: nad regular HR clear lungs soft abd no edema Labs: Reviewed in CPRS, of particular note: 01/18/2024 Cr 2.6 (variable but worsening trend over the last year. 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 His med regimen has not bee stable which may be confounding data. I am concerned about progression given heavy proteinuria. HTN: Goal BP 120-30/80 by home monitoring without orthostasis, reviewed proper BP technique. PCP stopped lisinopril due to hypotension. However, spironolactone was continued. BP was indeed low. We discussed today the central importance of lisinopril (or any TEJ/ARB) in his management as we well as jardiance and that these medications should not be discontinued or adjusted without discussing with me first. will resume lisinopril today at 10 mg daily with goal of uptitrating back to maximal dose. I also changed his metop tart to metop succinate (both 50 mg BID) per preference of PCP. I stopped his spironolactone. We also discussed variable BPs (common with DKD) and orthostasis and conservative measures to prevent/minimize these without adjusting medications. DM: Target A1C ~7 as tolerated without hypoglycemia. A1C at goal, on glp1, sglt2i. resuming TEJ today. 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 Follow up plan: stop axel resume lisinopril 10 mg daily labs 2 weeks change metop to succinate per PCP request discussed that I will take lead on BP med changes and to discuss these with me. emphasized need for ACEi (lisinopril) and sglt2i due to DKD with heavy proteinuria to reduce risk of progression. need to discuss planning next appt. Provided card to give to PCP. Very happy to discuss med changes if there are questions. RTC 4 months, labs prior. Early f/u due to non-optimization and advanced CKD. time spent 45 min discussing above /homar/ DAMION JEAN Attending Physician, Nephrology Signed: 02/16/2024 12:40 03/05/2024 ADDENDUM STATUS: COMPLETED lab stable on lisinopril 10 mg daily. If there has been no new lightheadedness and home BP > 125 mg systolic, I would like to increase to lisinopril 20 mg daily with lab work again in 2 weeks. If BP low or orthostasis present, continue 10 mg daily. Can you let him know and inquire about BPs? /homar/ DAMION JEAN Attending Physician, Nephrology Signed: 03/05/2024 16:09 Receipt Acknowledged By: 03/06/2024 13:19 /es/ THANH BRISCOE Registered Nurse 03/06/2024 ADDENDUM STATUS: COMPLETED Spoke with , reviewed stable labs per Dr. Jean on Lisinopril 10mg. No dizziness or lightheadedness. BPs over the last few days 125/85-166/92, only 3 of the BP readings that are taken twice daily from 02/17 until today were less than [address] Jean, will increase Lisinopril to 10mg daily, labs in 2 weeks. Will call this medical technical writer when completed with updated BP log. Will ask Dr. Jean to write new RX as he only has 8 tablets on hand now. /homar/ THANH BRISCOE Registered Nurse Signed: 03/06/2024 13:28 Receipt Acknowledged By: 03/06/2024 13:54 /homar/ DAMION JEAN Attending Physician, Nephrology 03/29/2024 ADDENDUM STATUS: COMPLETED lab work stable on 20 mg daily lisinopril. Assuming his BP now is not consistently < 125, will plan to push up to 40 mg. Can you let him know and alert me of current BPs? if increasing lisinopril will need lab work again in 2 weeks after change, just as before. /homar/ DAMION JEAN Attending Physician, Nephrology Signed: 03/29/2024 12:06 Receipt Acknowledged By: 03/30/2024 13:37 /homar/ THANH BRISCOE Registered Nurse 03/30/2024 ADDENDUM STATUS: COMPLETED Spoke with , reviewed lab results per Dr. Jean. He has mistakingly been taking (2)20mg Lisnopril tablets daily since receiving new Rx for 20mg tabs the end of Feb. BP log provided, all BPS are while taking 40mg. Weight has been 193-197 lbs., is drinking 64oz. water daily plus other fluids. Has not changed anything else in his regime. Was inquiring if Dr. Jean had spoken with outside PCP Dr. Mason Membreno ([phone]) regarding Lisinopril use. thinks BPs were better on lower doses. Discussed will inform Dr. Jean and call with changes. Will remain taking Lisinopril 40mg at present. AM PM 03/09 130/84 131/87 11 129/79 182/102 11 134/89 183/107 03/12 147/81 151/98 03/13 122/82 155/92 03/14 149/93 164/95 11 140/75 159/96 03/16 137/89 159/100 03/17 173/98 181/103 03/18 181/106 159/101 11/11 183/101 160/108 03/20 168/105 209/107 03/21 215/111 185/101 03/22 152/110 203/106 03/23 151/104 127/89 03/24 125/96 158/101 03/25 158/110 152/89 03/26 161/102 141/96 03/27 149/97 159/97 03/28 154/104 167/98 03/29 158/103 173/105 /es/ THANH BRISCOE Registered Nurse Signed: 03/30/2024 13:37 Receipt Acknowledged By: 03/30/2024 18:14 /es/ DAMION JEAN Attending Physician, Nephrology 03/30/2024 ADDENDUM STATUS: COMPLETED [place] also asked if he should be taking Spironolactone, is not currently. Dicussed per Dr. Jean's clinic note on 02/15 this was stopped then. /es/ THANH BRISCOE Registered Nurse Signed: 03/30/2024 13:44 Receipt Acknowledged By: 03/30/2024 18:13 /es/ DAMION JEAN Attending Physician, Nephrology 04/02/2024 ADDENDUM STATUS: UNSIGNED You may not VIEW this UNSIGNED Addendum. DAMION JEAN [facility] Mar 30, 2024 01:41 PM ADDENDUM: LOCAL TITLE: Addendum STANDARD TITLE: ADDENDUM DATE OF NOTE: MAR 30, 2024@13:41:36 ENTRY DATE: MAR 30, 2024@13:41:38 AUTHOR: THANH BRISCOE EXP COSIGNER: URGENCY: STATUS: COMPLETED also asked if he should be taking Spironolactone, is not currently. Dicussed per Dr. Jean's clinic note on 02/15 this was stopped then. /homar/ THANH BRISCOE Registered Nurse Signed: 03/30/2024 13:44 Receipt Acknowledged By: 03/30/2024 18:13 /homar/ DAMION JEAN Attending Physician, Nephrology --- Original Document --- 02/16/24 NEPHROLOGY OUTPATIENT FOLLOW-UP: Nephrology Follow up HPI:Followed for CKD. PMH of HTN (2012) DM (2012), LUTS (private urologist), afib on [facility] referred for evaluation of CKD with A3 level proteinuria. EGFR varied within the G3a-b range since at at least 2017 range ~35-55. Unclear etiology of variability or if recent trends are NICHOLAS, progression, or just variability. His current 's previous was on dialysis LAST VISIT: 08/2023. increased his lisinopril to 10 mg daily decreased amlodipine INTERVAL HISTORY:we weaned off his amlodipine and added spironolactone due to proteinuria. BP was variable and at times low so changed his coreg to metoprolol. Checking BP at home > 140 systolic: denies new lightheadedness/dizziness no new edema no orthopnea no new HUMPHRIES no new LUTS no NSAID use Medications specifically reviewed: lisinopril 40 mg daily (STOPPED ~ january 03 due to HTN) metoprolol succinate 50 mg BID (rx from PCP) spironolactone 12.5 mg or 25 mg daily not sure apixaban atorvastatin glargine ozempic jardiance ranolazine gabapentin 300 mg BID finasteride tamsulosin pantoprazole d3 Exam: nad regular HR clear lungs soft abd no edema Labs: Reviewed in CPRS, of particular note: 01/18/2024 Cr 2.6 (variable but worsening trend over the last year. 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 His med regimen has not bee stable which may be confounding data. I am concerned about progression given heavy proteinuria. HTN: Goal BP 120-30/80 by home monitoring without orthostasis, reviewed proper BP technique. PCP stopped lisinopril due to hypotension. However, spironolactone was continued. BP was indeed low. We discussed today the central importance of lisinopril (or any TEJ/ARB) in his management as we well as jardiance and that these medications should not be discontinued or adjusted without discussing with me first. will resume lisinopril today at 10 mg daily with goal of uptitrating back to maximal dose. I also changed his metop tart to metop succinate (both 50 mg BID) per preference of PCP. I stopped his spironolactone. We also discussed variable BPs (common with DKD) and orthostasis and conservative measures to prevent/minimize these without adjusting medications. DM: Target A1C ~7 as tolerated without hypoglycemia. A1C at goal, on glp1, sglt2i. resuming TEJ today. 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 Follow up plan: stop axel resume lisinopril 10 mg daily labs 2 weeks change metop to succinate per PCP request discussed that I will take lead on BP med changes and to discuss these with me. emphasized need for ACEi (lisinopril) and sglt2i due to DKD with heavy proteinuria to reduce risk of progression. need to discuss planning next appt. Provided card to give to PCP. Very happy to discuss med changes if there are questions. RTC 4 months, labs prior. Early f/u due to non-optimization and advanced CKD. time spent 45 min discussing above /homar/ DAMION JEAN Attending Physician, Nephrology Signed: 02/16/2024 12:40 03/05/2024 ADDENDUM STATUS: COMPLETED lab stable on lisinopril 10 mg daily. If there has been no new lightheadedness and home BP > 125 mg systolic, I would like to increase to lisinopril 20 mg daily with lab work again in 2 weeks. If BP low or orthostasis present, continue 10 mg daily. Can you let him know and inquire about BPs? /homar/ DAMION JEAN Attending Physician, Nephrology Signed: 03/05/2024 16:09 Receipt Acknowledged By: 03/06/2024 13:19 /homar/ THANH BRISCOE Registered Nurse 03/06/2024 ADDENDUM STATUS: COMPLETED Spoke with , reviewed stable labs per Dr. Jean on Lisinopril 10mg. No dizziness or lightheadedness. BPs over the last few days 125/85-166/92, only 3 of the BP readings that are taken twice daily from 02/17 until today were less than [address]. [address] Jean, will increase Lisinopril to 10mg daily, labs in 2 weeks. Will call this medical technical writer when completed with updated BP log. Will ask Dr. Jean to write new RX as he only has 8 tablets on hand now. /es/ THANH BRISCOE Registered Nurse Signed: 03/06/2024 13:28 Receipt Acknowledged By: 03/06/2024 13:54 /homar/ DAMION JEAN Attending Physician, Nephrology 03/29/2024 ADDENDUM STATUS: COMPLETED lab work stable on 20 mg daily lisinopril. Assuming his BP now is not consistently < 125, will plan to push up to 40 mg. Can you let him know and alert me of current BPs? if increasing lisinopril will need lab work again in 2 weeks after change, just as before. /homar/ DAMION JEAN Attending Physician, Nephrology Signed: 03/29/2024 12:06 Receipt Acknowledged By: 03/30/2024 13:37 /es/ THANH BRISCOE Registered Nurse 03/30/2024 ADDENDUM STATUS: COMPLETED Spoke with , reviewed lab results per Dr. Jean. He has mistakingly been taking (2)20mg Lisnopril tablets daily since receiving new Rx for 20mg tabs the end of Feb. BP log provided, all BPS are while taking 40mg. Weight has been 193-197 lbs., is drinking 64oz. water daily plus other fluids. Has not changed anything else in his regime. Was inquiring if Dr. Jean had spoken with outside PCP Dr. Mason Membreno ([phone]) regarding Lisinopril use. thinks BPs were better on lower doses. Discussed will inform Dr. Jean and call with changes. Will remain taking Lisinopril 40mg at present. AM PM 03/09 130/84 131/87 03/10 129/79 182/102 03/11 134/89 183/107 03/12 147/81 151/98 03/13 122/82 155/92 03/14 149/93 164/95 03/15 140/75 159/96 03/16 137/89 159/100 03/17 173/98 181/103 03/18 181/106 159/101 03/19 183/101 160/108 03/20 168/105 209/107 03/21 215/111 185/101 03/22 152/110 203/106 03/23 151/104 127/89 03/24 125/96 158/101 03/25 158/110 152/89 03/26 161/102 141/96 03/27 149/97 159/97 03/28 154/104 167/98 03/29 158/103 173/105 /es/ THANH BRISCOE Registered Nurse Signed: 03/30/2024 13:37 Receipt Acknowledged By: * AWAITING SIGNATURE * DAMION JEAN [facility] Mar 30, 2024 01:19 PM ADDENDUM: LOCAL TITLE: Addendum STANDARD TITLE: ADDENDUM DATE OF NOTE: MAR 30, 2024@13:19:39 ENTRY DATE: MAR 30, 2024@13:19:41 AUTHOR: THANH BRISCOE EXP COSIGNER: URGENCY: STATUS: COMPLETED Spoke with , reviewed lab results per Dr. Jean. He has mistakingly been taking (2)20mg Lisnopril tablets daily since receiving new Rx for 20mg tabs the end of Feb. BP log provided, all BPS are while taking 40mg. Weight has been 193-197 lbs., is drinking 64oz. water daily plus other fluids. Has not changed anything else in his regime. Was inquiring if Dr. Jean had spoken with outside PCP Dr. Mason Membreno ([phone]) regarding Lisinopril use. thinks BPs were better on lower doses. Discussed will inform Dr. Jean and call with changes. Will remain taking Lisinopril 40mg at present. AM PM 03/09 130/84 131/87 03/10 129/79 182/102 03/11 134/89 183/107 03/12 147/81 151/98 03/13 122/82 155/92 03/14 149/93 164/95 03/15 140/75 159/96 03/16 137/89 159/100 03/17 173/98 181/103 03/18 181/106 159/101 03/19 183/101 160/108 03/20 168/105 209/107 03/21 215/111 185/101 03/22 152/110 203/106 03/23 151/104 127/89 03/24 125/96 158/101 03/25 158/110 152/89 03/26 161/102 141/96 03/27 149/97 159/97 03/28 154/104 167/98 03/29 158/103 173/105 /es/ THANH BRISCOE Registered Nurse Signed: 03/30/2024 13:37 Receipt Acknowledged By: 03/30/2024 18:14 /es/ DAMION JEAN Attending Physician, Nephrology --- Original Document --- 02/16/24 NEPHROLOGY OUTPATIENT FOLLOW-UP: Nephrology Follow up HPI:Followed for CKD. PMH of HTN (2012) DM (2012), LUTS (private urologist), afib on [facility] referred for evaluation of CKD with A3 level proteinuria. EGFR varied within the G3a-b range since at at least 2017 range ~35-55. Unclear etiology of variability or if recent trends are NICHOLAS, progression, or just variability. His current 's previous was on dialysis LAST VISIT: 08/2023. increased his lisinopril to 10 mg daily decreased amlodipine INTERVAL HISTORY:we weaned off his amlodipine and added spironolactone due to proteinuria. BP was variable and at times low so changed his coreg to metoprolol. Checking BP at home > 140 systolic: denies new lightheadedness/dizziness no new edema no orthopnea no new HUMPHRIES no new LUTS no NSAID use Medications specifically reviewed: lisinopril 40 mg daily (STOPPED ~ january 03 due to HTN) metoprolol succinate 50 mg BID (rx from PCP) spironolactone 12.5 mg or 25 mg daily not sure apixaban atorvastatin glargine ozempic jardiance ranolazine gabapentin 300 mg BID finasteride tamsulosin pantoprazole d3 Exam: nad regular HR clear lungs soft abd no edema Labs: Reviewed in CPRS, of particular note: 01/18/2024 Cr 2.6 (variable but worsening trend over the last year. 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 His med regimen has not bee stable which may be confounding data. I am concerned about progression given heavy proteinuria. HTN: Goal BP 120-30/80 by home monitoring without orthostasis, reviewed proper BP technique. PCP stopped lisinopril due to hypotension. However, spironolactone was continued. BP was indeed low. We discussed today the central importance of lisinopril (or any TEJ/ARB) in his management as we well as jardiance and that these medications should not be discontinued or adjusted without discussing with me first. will resume lisinopril today at 10 mg daily with goal of uptitrating back to maximal dose. I also changed his metop tart to metop succinate (both 50 mg BID) per preference of PCP. I stopped his spironolactone. We also discussed variable BPs (common with DKD) and orthostasis and conservative measures to prevent/minimize these without adjusting medications. DM: Target A1C ~7 as tolerated without hypoglycemia. A1C at goal, on glp1, sglt2i. resuming TEJ today. 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 Follow up plan: stop axel resume lisinopril 10 mg daily labs 2 weeks change metop to succinate per PCP request discussed that I will take lead on BP med changes and to discuss these with me. emphasized need for ACEi (lisinopril) and sglt2i due to DKD with heavy proteinuria to reduce risk of progression. need to discuss planning next appt. Provided card to give to PCP. Very happy to discuss med changes if there are questions. RTC 4 months, labs prior. Early f/u due to non-optimization and advanced CKD. time spent 45 min discussing above /antonia JEAN Attending Physician, Nephrology Signed: 02/16/2024 12:40 03/05/2024 ADDENDUM STATUS: COMPLETED lab stable on lisinopril 10 mg daily. If there has been no new lightheadedness and home BP > 125 mg systolic, I would like to increase to lisinopril 20 mg daily with lab work again in 2 weeks. If BP low or orthostasis present, continue 10 mg daily. Can you let him know and inquire about BPs? /antonia JEAN Attending Physician, Nephrology Signed: 03/05/2024 16:09 Receipt Acknowledged By: 03/06/2024 13:19 /homar/ THANH BRISCOE Registered Nurse 03/06/2024 ADDENDUM STATUS: COMPLETED Spoke with , reviewed stable labs per Dr. Jean on Lisinopril 10mg. No dizziness or lightheadedness. BPs over the last few days 125/85-166/92, only 3 of the BP readings that are taken twice daily from 02/17 until today were less than [address] Jean, will increase Lisinopril to 10mg daily, labs in 2 weeks. Will call this medical technical writer when completed with updated BP log. Will ask Dr. Jean to write new RX as he only has 8 tablets on hand now. /homar/ THANH BRISCOE Registered Nurse Signed: 03/06/2024 13:28 Receipt Acknowledged By: 03/06/2024 13:54 /antonia JEAN Attending Physician, Nephrology 03/29/2024 ADDENDUM STATUS: COMPLETED lab work stable on 20 mg daily lisinopril. Assuming his BP now is not consistently < 125, will plan to push up to 40 mg. Can you let him know and alert me of current BPs? if increasing lisinopril will need lab work again in 2 weeks after change, just as before. /antonia JEAN Attending Physician, Nephrology Signed: 03/29/2024 12:06 Receipt Acknowledged By: 03/30/2024 13:37 /homar/ THANH BRISCOE Registered Nurse 03/30/2024 ADDENDUM STATUS: COMPLETED [place] also asked if he should be taking Spironolactone, is not currently. Dicussed per Dr. Jean's clinic note on 02/15 this was stopped then. /homar/ THANH BRISCOE Registered Nurse Signed: 03/30/2024 13:44 Receipt Acknowledged By: 03/30/2024 18:13 /homar/ DAMION JEAN Attending Physician, Nephrology THANH BRISCOE [facility] Mar 29, 2024 12:04 PM ADDENDUM: LOCAL TITLE: Addendum STANDARD TITLE: ADDENDUM DATE OF NOTE: MAR 29, 2024@12:04:51 ENTRY DATE: MAR 29, 2024@12:04:52 AUTHOR: DAMION JEAN EXP COSIGNER: URGENCY: STATUS: COMPLETED lab work stable on 20 mg daily lisinopril. Assuming his BP now is not consistently < 125, will plan to push up to 40 mg. Can you let him know and alert me of current BPs? if increasing lisinopril will need lab work again in 2 weeks after change, just as before. /homar/ DAMION JEAN Attending Physician, Nephrology Signed: 03/29/2024 12:06 Receipt Acknowledged By: 03/30/2024 13:37 /homar/ THANH BRISCOE Registered Nurse --- Original Document --- 02/16/24 NEPHROLOGY OUTPATIENT FOLLOW-UP: Nephrology Follow up HPI:Followed for CKD. PMH of HTN (2012) DM (2012), LUTS (private urologist), afib on [facility] referred for evaluation of CKD with A3 level proteinuria. EGFR varied within the G3a-b range since at at least 2017 range ~35-55. Unclear etiology of variability or if recent trends are NICHOLAS, progression, or just variability. His current 's previous was on dialysis LAST VISIT: 08/2023. increased his lisinopril to 10 mg daily decreased amlodipine INTERVAL HISTORY:we weaned off his amlodipine and added spironolactone due to proteinuria. BP was variable and at times low so changed his coreg to metoprolol. Checking BP at home > 140 systolic: denies new lightheadedness/dizziness no new edema no orthopnea no new HUMPHRIES no new LUTS no NSAID use Medications specifically reviewed: lisinopril 40 mg daily (STOPPED ~ january 03 due to HTN) metoprolol succinate 50 mg BID (rx from PCP) spironolactone 12.5 mg or 25 mg daily not sure apixaban atorvastatin glargine ozempic jardiance ranolazine gabapentin 300 mg BID finasteride tamsulosin pantoprazole d3 Exam: nad regular HR clear lungs soft abd no edema Labs: Reviewed in CPRS, of particular note: 01/18/2024 Cr 2.6 (variable but worsening trend over the last year. 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 His med regimen has not bee stable which may be confounding data. I am concerned about progression given heavy proteinuria. HTN: Goal BP 120-30/80 by home monitoring without orthostasis, reviewed proper BP technique. PCP stopped lisinopril due to hypotension. However, spironolactone was continued. BP was indeed low. We discussed today the central importance of lisinopril (or any TEJ/ARB) in his management as we well as jardiance and that these medications should not be discontinued or adjusted without discussing with me first. will resume lisinopril today at 10 mg daily with goal of uptitrating back to maximal dose. I also changed his metop tart to metop succinate (both 50 mg BID) per preference of PCP. I stopped his spironolactone. We also discussed variable BPs (common with DKD) and orthostasis and conservative measures to prevent/minimize these without adjusting medications. DM: Target A1C ~7 as tolerated without hypoglycemia. A1C at goal, on glp1, sglt2i. resuming TEJ today. 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 Follow up plan: stop axel resume lisinopril 10 mg daily labs 2 weeks change metop to succinate per PCP request discussed that I will take lead on BP med changes and to discuss these with me. emphasized need for ACEi (lisinopril) and sglt2i due to DKD with heavy proteinuria to reduce risk of progression. need to discuss planning next appt. Provided card to give to PCP. Very happy to discuss med changes if there are questions. RTC 4 months, labs prior. Early f/u due to non-optimization and advanced CKD. time spent 45 min discussing above /antonia JEAN Attending Physician, Nephrology Signed: 02/16/2024 12:40 03/05/2024 ADDENDUM STATUS: COMPLETED lab stable on lisinopril 10 mg daily. If there has been no new lightheadedness and home BP > 125 mg systolic, I would like to increase to lisinopril 20 mg daily with lab work again in 2 weeks. If BP low or orthostasis present, continue 10 mg daily. Can you let him know and inquire about BPs? /antonia JEAN Attending Physician, Nephrology Signed: 03/05/2024 16:09 Receipt Acknowledged By: 03/06/2024 13:19 /homar/ THANH BRISCOE Registered Nurse 03/06/2024 ADDENDUM STATUS: COMPLETED Spoke with , reviewed stable labs per Dr. Jean on Lisinopril 10mg. No dizziness or lightheadedness. BPs over the last few days 125/85-166/92, only 3 of the BP readings that are taken twice daily from 02/17 until today were less than [address] Jean, vasu will increase Lisinopril to 10mg daily, labs in 2 weeks. Will call this medical technical writer when completed with updated BP log. Will ask Dr. Jean to write new RX as he only has 8 tablets on hand now. /homar/ THANH BRISCOE Registered Nurse Signed: 03/06/2024 13:28 Receipt Acknowledged By: 03/06/2024 13:54 /antonia JEAN Attending Physician, Nephrology 03/30/2024 ADDENDUM STATUS: COMPLETED Spoke with , reviewed lab results per Dr. Jean. He has mistakingly been taking (2)20mg Lisnopril tablets daily since receiving new Rx for 20mg tabs the end of Feb. BP log provided, all BPS are while taking 40mg. Weight has been 193-197 lbs., is drinking 64oz. water daily plus other fluids. Has not changed anything else in his regime. Was inquiring if Dr. Jean had spoken with outside PCP Dr. Mason Membreno ([phone]) regarding Lisinopril use. thinks BPs were better on lower doses. Discussed will inform Dr. Jean and call with changes. Will remain taking Lisinopril 40mg at present. AM PM 03/09 130/84 131/87 03/10 129/79 182/102 03/11 134/89 183/107 03/12 147/81 151/98 03/13 122/82 155/92 03/14 149/93 164/95 03/15 140/75 159/96 03/16 137/89 159/100 03/17 173/98 181/103 03/18 181/106 159/101 03/19 183/101 160/108 03/20 168/105 209/107 03/21 215/111 185/101 03/22 152/110 203/106 03/23 151/104 127/89 03/24 125/96 158/101 03/25 158/110 152/89 03/26 161/102 141/96 03/27 149/97 159/97 03/28 154/104 167/98 03/29 158/103 173/105 /es/ THANH BRISCOE Registered Nurse Signed: 03/30/2024 13:37 Receipt Acknowledged By: * AWAITING SIGNATURE * DAMION JEAN [facility] Mar 06, 2024 01:19 PM ADDENDUM: LOCAL TITLE: Addendum STANDARD TITLE: ADDENDUM DATE OF NOTE: MAR 06, 2024@13:19:29 ENTRY DATE: MAR 06, 2024@13:19:30 AUTHOR: THANH BRISCOE EXP COSIGNER: URGENCY: STATUS: COMPLETED Spoke with , reviewed stable labs per Dr. Jean on Lisinopril 10mg. No dizziness or lightheadedness. BPs over the last few days 125/85-166/92, only 3 of the BP readings that are taken twice daily from 02/17 until today were less than [address] Jean, will increase Lisinopril to 10mg daily, labs in 2 weeks. Will call this medical technical writer when completed with updated BP log. Will ask Dr. Jean to write new RX as he only has 8 tablets on hand now. /homar/ THANH BRISCOE Registered Nurse Signed: 03/06/2024 13:28 Receipt Acknowledged By: 03/06/2024 13:54 /homar/ DAMION JEAN Attending Physician, Nephrology --- Original Document --- 02/16/24 NEPHROLOGY OUTPATIENT FOLLOW-UP: Nephrology Follow up HPI:Followed for CKD. PMH of HTN (2012) DM (2012), LUTS (private urologist), afib on [facility] referred for evaluation of CKD with A3 level proteinuria. EGFR varied within the G3a-b range since at at least 2017 range ~35-55. Unclear etiology of variability or if recent trends are NICHOLAS, progression, or just variability. His current 's previous was on dialysis LAST VISIT: 08/2023. increased his lisinopril to 10 mg daily decreased amlodipine INTERVAL HISTORY:we weaned off his amlodipine and added spironolactone due to proteinuria. BP was variable and at times low so changed his coreg to metoprolol. Checking BP at home > 140 systolic: denies new lightheadedness/dizziness no new edema no orthopnea no new HUMPHRIES no new LUTS no NSAID use Medications specifically reviewed: lisinopril 40 mg daily (STOPPED ~ january 03 due to HTN) metoprolol succinate 50 mg BID (rx from PCP) spironolactone 12.5 mg or 25 mg daily not sure apixaban atorvastatin glargine ozempic jardiance ranolazine gabapentin 300 mg BID finasteride tamsulosin pantoprazole d3 Exam: nad regular HR clear lungs soft abd no edema Labs: Reviewed in CPRS, of particular note: 01/18/2024 Cr 2.6 (variable but worsening trend over the last year. 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 His med regimen has not bee stable which may be confounding data. I am concerned about progression given heavy proteinuria. HTN: Goal BP 120-30/80 by home monitoring without orthostasis, reviewed proper BP technique. PCP stopped lisinopril due to hypotension. However, spironolactone was continued. BP was indeed low. We discussed today the central importance of lisinopril (or any TEJ/ARB) in his management as we well as jardiance and that these medications should not be discontinued or adjusted without discussing with me first. will resume lisinopril today at 10 mg daily with goal of uptitrating back to maximal dose. I also changed his metop tart to metop succinate (both 50 mg BID) per preference of PCP. I stopped his spironolactone. We also discussed variable BPs (common with DKD) and orthostasis and conservative measures to prevent/minimize these without adjusting medications. DM: Target A1C ~7 as tolerated without hypoglycemia. A1C at goal, on glp1, sglt2i. resuming TEJ today. 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 Follow up plan: stop axel resume lisinopril 10 mg daily labs 2 weeks change metop to succinate per PCP request discussed that I will take lead on BP med changes and to discuss these with me. emphasized need for ACEi (lisinopril) and sglt2i due to DKD with heavy proteinuria to reduce risk of progression. need to discuss planning next appt. Provided card to give to PCP. Very happy to discuss med changes if there are questions. RTC 4 months, labs prior. Early f/u due to non-optimization and advanced CKD. time spent 45 min discussing above /es/ DAMION JEAN Attending Physician, Nephrology Signed: 02/16/2024 12:40 03/05/2024 ADDENDUM STATUS: COMPLETED lab stable on lisinopril 10 mg daily. If there has been no new lightheadedness and home BP > 125 mg systolic, I would like to increase to lisinopril 20 mg daily with lab work again in 2 weeks. If BP low or orthostasis present, continue 10 mg daily. Can you let him know and inquire about BPs? /homar/ DAMION JEAN Attending Physician, Nephrology Signed: 03/05/2024 16:09 Receipt Acknowledged By: 03/06/2024 13:19 /homar/ THANH BRISCOE Registered Nurse THANH BRISCOE [facility] Mar 05, 2024 04:07 PM ADDENDUM: LOCAL TITLE: Addendum STANDARD TITLE: ADDENDUM DATE OF NOTE: MAR 05, 2024@16:07:25 ENTRY DATE: MAR 05, 2024@16:07:26 AUTHOR: DAMION JEAN EXP COSIGNER: URGENCY: STATUS: COMPLETED lab stable on lisinopril 10 mg daily. If there has been no new lightheadedness and home BP > 125 mg systolic, I would like to increase to lisinopril 20 mg daily with lab work again in 2 weeks. If BP low or orthostasis present, continue 10 mg daily. Can you let him know and inquire about BPs? /antonia JEAN Attending Physician, Nephrology Signed: 03/05/2024 16:09 Receipt Acknowledged By: 03/06/2024 13:19 /homar/ THANH BRISCOE Registered Nurse --- Original Document --- 02/16/24 NEPHROLOGY OUTPATIENT FOLLOW-UP: Nephrology Follow up HPI:Followed for CKD. PMH of HTN (2012) DM (2012), LUTS (private urologist), afib on [facility] referred for evaluation of CKD with A3 level proteinuria. EGFR varied within the G3a-b range since at at least 2017 range ~35-55. Unclear etiology of variability or if recent trends are NICHOLAS, progression, or just variability. His current 's previous was on dialysis LAST VISIT: 08/2023. increased his lisinopril to 10 mg daily decreased amlodipine INTERVAL HISTORY:we weaned off his amlodipine and added spironolactone due to proteinuria. BP was variable and at times low so changed his coreg to metoprolol. Checking BP at home > 140 systolic: denies new lightheadedness/dizziness no new edema no orthopnea no new HUMPHRIES no new LUTS no NSAID use Medications specifically reviewed: lisinopril 40 mg daily (STOPPED ~ january 03 due to HTN) metoprolol succinate 50 mg BID (rx from PCP) spironolactone 12.5 mg or 25 mg daily not sure apixaban atorvastatin glargine ozempic jardiance ranolazine gabapentin 300 mg BID finasteride tamsulosin pantoprazole d3 Exam: nad regular HR clear lungs soft abd no edema Labs: Reviewed in CPRS, of particular note: 01/18/2024 Cr 2.6 (variable but worsening trend over the last year. 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 His med regimen has not bee stable which may be confounding data. I am concerned about progression given heavy proteinuria. HTN: Goal BP 120-30/80 by home monitoring without orthostasis, reviewed proper BP technique. PCP stopped lisinopril due to hypotension. However, spironolactone was continued. BP was indeed low. We discussed today the central importance of lisinopril (or any TEJ/ARB) in his management as we well as jardiance and that these medications should not be discontinued or adjusted without discussing with me first. will resume lisinopril today at 10 mg daily with goal of uptitrating back to maximal dose. I also changed his metop tart to metop succinate (both 50 mg BID) per preference of PCP. I stopped his spironolactone. We also discussed variable BPs (common with DKD) and orthostasis and conservative measures to prevent/minimize these without adjusting medications. DM: Target A1C ~7 as tolerated without hypoglycemia. A1C at goal, on glp1, sglt2i. resuming TEJ today. 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 Follow up plan: stop axel resume lisinopril 10 mg daily labs 2 weeks change metop to succinate per PCP request discussed that I will take lead on BP med changes and to discuss these with me. emphasized need for ACEi (lisinopril) and sglt2i due to DKD with heavy proteinuria to reduce risk of progression. need to discuss planning next appt. Provided card to give to PCP. Very happy to discuss med changes if there are questions. RTC 4 months, labs prior. Early f/u due to non-optimization and advanced CKD. time spent 45 min discussing yong /homar/ DAMION JEAN Attending Physician, Nephrology Signed: 02/16/2024 12:40 03/06/2024 ADDENDUM STATUS: UNSIGNED You may not VIEW this UNSIGNED Addendum. DAMION JEAN [facility] Feb 16, 2024 09:45 AM PRIMARY CARE NURSI NG OUTPATIENT NOTE: LOCAL TITLE: POULTRY PICKER NURSING STANDARD TITLE: PRIMARY CARE NURSING OUTPATIENT NOTE DATE OF NOTE: FEB 16, 2024@09:45 ENTRY DATE: FEB 16, 2024@09:45:38 AUTHOR: AUDREY HERNANDEZ EXP COSIGNER: URGENCY: STATUS: COMPLETED N-Pain Screen: Are you currently experiencing pain? No: Suicide Screen: C-SSRS Screening [place] Suicide Severity Rating Scale (C-SSRS) screener 1. Over the past month, have you wished you were or wished you could go to sleep and not wake up? No 2. Over the past month, have you had any actual thoughts of killing yourself? No 3. Over the past month, have you been thinking about how you might do this? Response not required due to responses to other questions. 4. Over the past month, have you had these thoughts and had some intention of acting on them? Response not required due to responses to other questions. 5. Over the past month, have you started to work out or worked out the details of how to kill yourself? Response not required due to responses to other questions. 6. If yes, at any time in the past month did you intend to carry out this plan? Response not required due to responses to other questions. 7. In your lifetime, have you ever done anything, started to do anything, or prepared to do anything to end your life (for example, collected pills, obtained a gun, gave away valuables, went to the roof but didn't jump)? No 8. If YES, was this within the past 3 months? Response not required due to responses to other questions. /homar/ AUDREY HERNANDEZ [employer] Signed: 02/16/2024 09:54 AUDREY HERNANDEZ [facility] Feb 16, 2024 07:55 AM NEPHROLOGY OUTPATI ENT NOTE: LOCAL TITLE: NEPHROLOGY OUTPATIENT FOLLOW-UP STANDARD TITLE: NEPHROLOGY OUTPATIENT NOTE DATE OF NOTE: FEB 16, 2024@07:55 ENTRY DATE: FEB 15, 2024@18:10:17 AUTHOR: DAMION JEAN EXP COSIGNER: URGENCY: STATUS: COMPLETED NEPHROLOGY OUTPATIENT FOLLOW-UP Has ADDENDA Nephrology Follow up HPI:Followed for CKD. PMH of HTN (2012) DM (2012), LUTS (private urologist), afib on [facility] referred for evaluation of CKD with A3 level proteinuria. EGFR varied within the G3a-b range since at at least 2017 range ~35-55. Unclear etiology of variability or if recent trends are NICHOLAS, progression, or just variability. His current 's previous was on dialysis LAST VISIT: 08/2023. increased his lisinopril to 10 mg daily decreased amlodipine INTERVAL HISTORY:we weaned off his amlodipine and added spironolactone due to proteinuria. BP was variable and at times low so changed his coreg to metoprolol. Checking BP at home > 140 systolic: denies new lightheadedness/dizziness no new edema no orthopnea no new HUMPHRIES no new LUTS no NSAID use Medications specifically reviewed: lisinopril 40 mg daily (STOPPED ~ january 03 due to HTN) metoprolol succinate 50 mg BID (rx from PCP) spironolactone 12.5 mg or 25 mg daily not sure apixaban atorvastatin glargine ozempic jardiance ranolazine gabapentin 300 mg BID finasteride tamsulosin pantoprazole d3 Exam: nad regular HR clear lungs soft abd no edema Labs: Reviewed in CPRS, of particular note: 01/18/2024 Cr 2.6 (variable but worsening trend over the last year. 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 His med regimen has not bee stable which may be confounding data. I am concerned about progression given heavy proteinuria. HTN: Goal BP 120-30/80 by home monitoring without orthostasis, reviewed proper BP technique. PCP stopped lisinopril due to hypotension. However, spironolactone was continued. BP was indeed low. We discussed today the central importance of lisinopril (or any TEJ/ARB) in his management as we well as jardiance and that these medications should not be discontinued or adjusted without discussing with me first. will resume lisinopril today at 10 mg daily with goal of uptitrating back to maximal dose. I also changed his metop tart to metop succinate (both 50 mg BID) per preference of PCP. I stopped his spironolactone. We also discussed variable BPs (common with DKD) and orthostasis and conservative measures to prevent/minimize these without adjusting medications. DM: Target A1C ~7 as tolerated without hypoglycemia. A1C at goal, on glp1, sglt2i. resuming TEJ today. 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 Follow up plan: stop axel resume lisinopril 10 mg daily labs 2 weeks change metop to succinate per PCP request discussed that I will take lead on BP med changes and to discuss these with me. emphasized need for ACEi (lisinopril) and sglt2i due to DKD with heavy proteinuria to reduce risk of progression. need to discuss planning next appt. Provided card to give to PCP. Very happy to discuss med changes if there are questions. RTC 4 months, labs prior. Early f/u due to non-optimization and advanced CKD. time spent 45 min discussing above /antonia JEAN Attending Physician, Nephrology Signed: 02/16/2024 12:40 03/05/2024 ADDENDUM STATUS: COMPLETED lab stable on lisinopril 10 mg daily. If there has been no new lightheadedness and home BP > 125 mg systolic, I would like to increase to lisinopril 20 mg daily with lab work again in 2 weeks. If BP low or orthostasis present, continue 10 mg daily. Can you let him know and inquire about BPs? /antonia JEAN Attending Physician, Nephrology Signed: 03/05/2024 16:09 Receipt Acknowledged By: 03/06/2024 13:19 /homar/ THANH BRISCOE Registered Nurse 03/06/2024 ADDENDUM STATUS: COMPLETED Spoke with , reviewed stable labs per Dr. Jean on Lisinopril 10mg. No dizziness or lightheadedness. BPs over the last few days 125/85-166/92, only 3 of the BP readings that are taken twice daily from 02/17 until today were less than [address] Jean, will increase Lisinopril to 10mg daily, labs in 2 weeks. Will call this medical technical writer when completed with updated BP log. Will ask Dr. Jean to write new RX as he only has 8 tablets on hand now. /homar/ THANH BRISCOE Registered Nurse Signed: 03/06/2024 13:28 Receipt Acknowledged By: 03/06/2024 13:54 /antonia JEAN Attending Physician, Nephrology 03/29/2024 ADDENDUM STATUS: COMPLETED lab work stable on 20 mg daily lisinopril. Assuming his BP now is not consistently < 125, will plan to push up to 40 mg. Can you let him know and alert me of current BPs? if increasing lisinopril will need lab work again in 2 weeks after change, just as before. /antonia JEAN Attending Physician, Nephrology Signed: 03/29/2024 12:06 Receipt Acknowledged By: 03/30/2024 13:37 /homar/ THNAH BRISCOE Registered Nurse 03/30/2024 ADDENDUM STATUS: COMPLETED Spoke with , reviewed lab results per Dr. Jean. He has mistakingly been taking (2)20mg Lisnopril tablets daily since receiving new Rx for 20mg tabs the end of Feb. BP log provided, all BPS are while taking 40mg. Weight has been 193-197 lbs., is drinking 64oz. water daily plus other fluids. Has not changed anything else in his regime. Was inquiring if Dr. Jean had spoken with outside PCP Dr. Mason Membreno ([phone]) regarding Lisinopril use. thinks BPs were better on lower doses. Discussed will inform Dr. Jean and call with changes. Will remain taking Lisinopril 40mg at present. AM PM 03/09 130/84 131/87 03/10 129/79 182/102 03/11 134/89 183/107 03/12 147/81 151/98 03/13 122/82 155/92 03/14 149/93 164/95 03/15 140/75 159/96 03/16 137/89 159/100 03/17 173/98 181/103 03/18 181/106 159/101 03/19 183/101 160/108 03/20 168/105 209/107 03/21 215/111 185/101 03/22 152/110 203/106 03/23 151/104 127/89 03/24 125/96 158/101 03/25 158/110 152/89 03/26 161/102 141/96 03/27 149/97 159/97 03/28 154/104 167/98 03/29 158/103 173/105 /homar/ THANH BRISCOE Registered Nurse Signed: 03/30/2024 13:37 Receipt Acknowledged By: 03/30/2024 18:14 /homar/ DAMION JEAN Attending Physician, Nephrology 03/30/2024 ADDENDUM STATUS: COMPLETED also asked if he should be taking Spironolactone, is not currently. Dicussed per Dr. Jean's clinic note on 02/15 this was stopped then. /homar/ THANH BRISCOE Registered Nurse Signed: 03/30/2024 13:44 Receipt Acknowledged By: 03/30/2024 18:13 /homar/ DAMION JEAN Attending Physician, Nephrology 03/30/2024 ADDENDUM STATUS: COMPLETED OK. In that case, he should resume the spironolactone 12.5 mg daily. He will need lab work 2 weeks after the change. I updated the Rx's. I have have not been contacted by his PCP. I will manage the BP meds but am very happy to talk to Dr. Membreno if he has questions. /homar/ DAMION JEAN Attending Physician, Nephrology Signed: 03/30/2024 18:20 Receipt Acknowledged By: 04/02/2024 13:44 /homar/ THANH BRISCOE Registered Nurse 04/02/2024 ADDENDUM STATUS: COMPLETED Spoke with , discussed Dr. Jean would like to restart Spironolactone 12.5mg. 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 States he has been experiencing lower back pain radiating down leg. Discussed pain could be adding to the hypertension, is seeing outside pain clinic on Apr 17. /homar/ THANH BRISCOE Registered Nurse Signed: 04/02/2024 13:53 Receipt Acknowledged By: 04/02/2024 15:55 /homar/ DAMION JEAN Attending Physician, Nephrology 04/27/2024 ADDENDUM STATUS: COMPLETED please let him know lab work is stable on spironolactone. Can we get an update on BPs? /homar/ DAMION JEAN Attending Physician, Nephrology Signed: 04/27/2024 07:46 Receipt Acknowledged By: 04/27/2024 12:26 /homar/ THANH BRISCOE Registered Nurse 04/27/2024 ADDENDUM STATUS: COMPLETED Spoke with , reviewed lab results stable on Spironolactone per Dr. Jean. Is still having high level of lower back pain into legs, having ablation May 17 at outside [facility]. He believes the pain really adds to his hypertension. Feels at his baseline otherwise, no changes. Reports the following BPS after starting Spironolactone, first ones daily are prior to taking meds: 04/15: 134/91 139/88 04/16: 161/100 151/104 04/17: 174/103 158/97 04/18: 163/109 154/101 04/20: 153/109 132/98 12: 169/103 not done 04/22: 157/92 04/23: 162/101 152/96 04/24: 165/101 not done 04/25: 152/101 125/94 04/26: 160/100 160/105 04/27: 188/102 (after running upstairs to answer phone) /homar/ THANH BRISCOE Registered Nurse Signed: 04/27/2024 12:44 Receipt Acknowledged By: 04/27/2024 16:43 /homar/ DAMION JEAN Attending Physician, Nephrology 04/27/2024 ADDENDUM STATUS: COMPLETED please ask him to increase spironolactone to 25 mg daily with albs in 2 weeks and update on BPs. If BP fall after procedure due to pain relief, he should hold it and call me. /homar/ DAMION JEAN Attending Physician, Nephrology Signed: 04/27/2024 16:57 Receipt Acknowledged By: 05/03/2024 12:59 /homar/ THANH BRISCOE Registered Nurse 05/03/2024 ADDENDUM STATUS: COMPLETED Spoke with . He will increase the Spironolactone to 25mg daily, obtain labs in 2 weeks and call with BP log then. /homar/ THANH BRISCOE Registered Nurse Signed: 05/03/2024 13:02 05/17/2024 ADDENDUM STATUS: COMPLETED labs with some flucuating but in his typical range. hold on current med doses for now. Lab again in about 1 month a few weeks before I see him at the end of Jun. /antonia JEAN Attending Physician, Nephrology Signed: 05/17/2024 11:53 Receipt Acknowledged By: 05/18/2024 13:08 /homar/ THANH BRISCOE Registered Nurse 05/18/2024 ADDENDUM STATUS: COMPLETED Spoke with , reviewed stable lab results per Dr. Jean, labs in one month. /homar/ THANH BRISCOE Registered Nurse Signed: 05/18/2024 13:09 05/24/2024 ADDENDUM STATUS: COMPLETED [place] left VM yesterday. Stated he had a back injection May 18, BP that day 122/86. 05/20: 157/96 Subsequent BPs, no dates reported: 115/78, 166/64, 119/72, 148/102, 126/82, 123/80. On 05/23 3:35pm: 102/70. /homar/ THANH BRISCOE Registered Nurse Signed: 05/24/2024 08:07 Receipt Acknowledged By: * AWAITING SIGNATURE * DAMION JEAN,DAMION [facility]
--- OUTSIDE RECORDS SUMMARY | 2024-03-05 05:00 | XMS_ITS | Encounter Summary ---
Author Name [facility] Organization [facility] Address [address] [place] [address] Care Team Providers Care Transfusion Nurse Name Role Phone SUHAIL ETIENNE Primary Care Provider Héctor chang Insurance Providers: [...] PART B Oct 07, 2017 PART B [id number] MAURY VILLALPANDO PATIENT MEDICARE (WNR) MEDICARE (M) PART A Oct 07, 2017 PART A [id number] MAURY VILLALPANDO PATIENT MEDICARE (WNR) MEDICARE (M) PART A Oct 07, 2017 PART A [id number] MAURY VILLALPANDO PATIENT MEDICARE (WNR) MEDICARE (M) PART B Oct 07, 2017 PART B [id number] [phone] MAURY VILLALPANDO PATIENT MEDICARE (WNR) MEDICARE (M) PART B Oct 07, 2017 PART B [id number] MAURY VILLALPANDO PATIENT MEDICARE (WNR) MEDICARE (M) PART A Oct 07, 2017 PART A [id number] MAURY VILLALPANDO PATIENT [facility] FAMIL Y [place] NIES May 09, 2020 [id number] [phone] MAURY VILLALPANDO PATIENT [facility] FMILY OF [place] NI May 09, 2020 [id number] MAURY VILLALPANDO PATIENT Selected Encounter This section includes the information on record at NH for the Encounter. Date/Time Encounter Type Encounter Description Reason Provider Source Mar 05, 2024 09:00 AM OFFICE O/P EST HI 40 MIN PRIMARY CARE/MEDICINE ICD-10-CM E11.9 Type 2 diabetes mellitus without complications GAGAN ETIENNE MD [facility] Encounter Template Text not used by [facility] Assessments - Encounter Diagnoses This section includes the primary and secondary diagnoses documented for the Encounter. Date/Time Primary/Secondary Diagnosis Diagnosis Name Provider Source Mar 05, 2024 09:24 AM PRIMARY Type 2 diabetes mellitus without complications IVANA ETIENNE MD [facility] Mar 05, 2024 09:24 AM SECONDARY Athscl heart disease of [place] coronary artery w/o ang pctrs IVANA ETIENNE MD [facility] Mar 05, 2024 09:24 AM SECONDARY Disorder of kidney and ureter, unspecified IVANA ETIENNE MD [facility] Mar 05, 2024 09:24 AM SECONDARY Encounter for immunization IVANA ETIENNE MD [facility] Mar 05, 2024 09:24 AM SECONDARY Essential (primary) hypertension IVANA ETIENNE MD [facility] Mar 05, 2024 09:24 AM SECONDARY Hyperlipidemia, unspecified IVANA ETIENNE MD [facility] Mar 05, 2024 09:24 AM SECONDARY penitentiary (current) use of anticoagulants IVANA ETIENNE MD [facility] Mar 05, 2024 09:24 AM SECONDARY Unspecified atrial fibrillation IVANA ETIENNE MD [facility] Plan of Treatment: Future Appointments (+ 6 months) and Future Tests (+/- 45 days) The Plan of Treatment section includes future care activities for the [facility] This section includes future appointments and future orders which are active, pending or scheduled. Future Appointments This section includes appointments that were scheduled to occur 6 months from the date of the Encounter, up to a maximum of 20 appointments. The data comes from all NH treatment facilities. Appointment Date/Time Appointment Type Appointme nt Facility Name Mar 22, 2024 10:00 AM AMBULATORY - MEDICINE [facility] Apr 10, 2024 04:45 PM AMBULATORY - SURGERY [facility] Apr 12, 2024 10:00 AM AMBULATORY - MEDICINE [facility] May 10, 2024 10:00 AM AMBULATORY MEDICINE [facility] May 11, 2024 10:23 AM AMBULATORY - NONE [facility] [place] 2] Jun 05, 2024 10:30 AM AMBULATORY - SURGERY [facility] Jun 05, 2024 01:00 PM AMBULATORY - SURGERY [facility] Jun 11, 2024 09:00 AM AMBULATORY - SURGERY [facility] Jul 05, 2024 10:00 AM AMBULATORY - MEDICINE [facility] Aug 10, 2024 03:00 PM AMBULATORY - MEDICINE [facility] Lab Results: +/- 30 days of the encounter This section includes the Chemistry and Hematology Lab Results on record with NH for the patient. Radiology Reports and Pathology Reports are provided separately, in subsequent sections. Lab Results This section contains the Chemistry/Hematology Results that were resulted 30 days before or 30 daysafter the date of the Encounter. Date/Time Source Result Type Result - Unit Interpretation Reference Range Specimen Type Comment Mar 29, 2024 11:07 AM [facility] RENAL FUNCTION PANEL (AA) BLOOD Specimen Type : BLOOD Comment: R-Specimen is slightly lipemic and may cause interference. See Laboratory Handbook Laboratory Interferences Table for more information. Ordering Provider: DAMION JEAN Report Released Date/Time: Mar 06, 2024 01:55 PM Reporting Lab: [facility] [address] [facility] [address] Performing Lab: [facility] [address] [facility] [address] CREATININE 2.2 mg/dL H 0.6-1.3 UREA NITROGEN 29 mg/dL H 7-25 GLUCOSE 166 mg/dL H 74-109 SODIUM 137 mmol/L 136-145 POTASSIUM 4.8 mmol/L 3.5-5.1 CHLORIDE 104 mmol/L 98-107 CO2 28 mmol/L 21-31 CALCIUM 9.0 mg/dL 8.6-10.3 PO4 3.3 mg/dL 2.5-5 ALBUMIN 4.0 g/dL 3.5-5.7 EGFR 31 mL/min/{1.73_m2} Mar 05, 2024 09:47 AM [facility] MAGNESIUM BLOOD Specimen Type: BLOOD No comment entered. Ordering Provider: DAMION JEAN Report Released Date/Time: Feb 15, 2024 06:18 PM Reporting Lab: [facility] [address] [facility] [address] Performing Lab: [facility] [address] [facility] [address] MAGNESIUM 2.0 mg/dL 1.9-2.7 Mar 05, 2024 09:47 AM [facility] PTH (INTACT) BLOOD Specimen Type: BLOOD No comment entered. Ordering Provider: DAMION JEAN Report Released Date/Time: Feb 15, 2024 06:20 PM Reporting Lab: [address] [address] Performing Lab: [address] [address] PTH (INTACT) 84.4 pg/mL 12.0-88.0 Mar 05, 2024 09:47 AM [facility] MICROALBUMIN URINE PANEL,RANDOM URINE,RANDOM Specime n Type: URINE,RANDOM No comment entered. Ordering Provider: DAMION JEAN Report Released Date/Time: Feb 15, 2024 06:18 PM Reporting Lab: [address] [address] Performing Lab: [address] [address] CREATININE 79 mg/dL MICROALBUMIN,RANDOM 46.2 mg/dL MICRO/CREAT RATIO 584.8 mg/g Mar 05, 2024 09:47 AM [facility] RENAL FUNCTION PANEL (AA) BLOOD Specimen Type : BLOOD No comment entered. Ordering Provider: DAMION JEAN Report Released Date/Time: Feb 15, 2024 06:18 PM Reporting Lab: [facility] [address] [facility] [address] Performing Lab: [facility] [address] [facility] [address] CREATININE 2.0 mg/dL H 0.6-1.3 UREA NITROGEN 28 mg/dL H 7-25 GLUCOSE 70 mg/dL L 74-109 SODIUM 140 mmol/L 136-145 POTASSIUM 4.1 mmol/L 3.5-5.1 CHLORIDE 107 mmol/L 98-107 CO2 27 mmol/L 21-31 CALCIUM 9.0 mg/dL 8.6-10.3 PO4 4.2 mg/dL 2.5-5 ALBUMIN 4.1 g/dL 3.5-5.7 EGFR 35 mL/min/{1.73_m2} Mar 05, 2024 09:47 AM [facility] TOTAL 25-HYDROXY VITAMIN D BLOOD Specimen Typ e: BLOOD No comment entered. Ordering Provider: DAMION JEAN Report Released Date/Time: Feb 15, 2024 06:20 PM Reporting Lab: [address] [address] Performing Lab: [address] [address] TOTAL 25-HYDROXY VITAMIN D 37.7 ng/mL 30 -100 Vital Signs: All taken on the encounter date This section contains inpatient and outpatient Vital Signs collected on the date of the Encounter. Date/Time Temperature Pulse Blood Pressure Respiratory Rate SP02 Pain Height Weight Body Mass Index Source Mar 05, 2024 08:57 AM 145/91 [facility] Mar 05, 2024 08:56 AM 96.8 50 164/98 16 98 10 197.98 30 [facility] Mar 05, 2024 08:53 AM 164/98 10 [facility] Immunizations: All administered on the encounter date This section contains immunizations associated to the Encounter. Immunization Series Date Issued Administered By Site Reaction Lot Number CVX Code Drug Roving Hand Comment(s) Source RSV, BIVALENT, PROTEIN SUBUNIT RSVPREF, DILUENT RECONSTITUTED , 0.5 ML, PF Mar 05, 2024 [facility] [place] LEFT DELTO ID [id number] [employer] ADMINISTERE D AT [facility] Social History: Smoking Status (Most current) and Tobacco Use (All prior to encounter date) This section includes the most current, and the historical, smoking and tobacco- related health factors from the NH facility where the Encounter took place. Current Smoking Status This section includes the most current smoking, or tobacco-related health factor, from the NH facility where the Encounter took place. Date/Time Current Smoking Status Comment Daisy de la torrey Aug 16, 2023 07:30 AM VA-TOBACCO NEVER USED [facility] Tobacco Use History This section includes a history of the smoking, or tobacco-related health factors, that were collected on or before the date of the Encounter. The data comes from the NH facility where the Encounter took place. Date/Time Smoking Status/Tobacco Use Comment F acility Apr 21, 2022 09:00 AM VA-TOBACCO NEVER USED [facility] Apr 28, 2021 10:30 AM VA-TOBACCO NEVER USED [facility] May 29, 2019 10:34 AM VA-TOBACCO NEVER USED [facility] Dec 15, 2017 10:25 AM VA-TOBACCO NEVER USED [facility] Aug 18, 2017 03:43 PM LIFETIME NON-USER OF TOBACCO [facility] Sep 01, 2016 08:43 AM LIFETIME NON-USER OF TOBACCO [facility] Aug 21, 2015 10:40 AM LIFETIME NON-USER OF TOBACCO [facility] Encounter Notes: All associated encounter notes This section contains the clinical notes associated to the Encounter. Date/Time Encounter Note(s) Provider Source Jul 11, 2024 12:59 PM ADDENDUM: LOCAL TITLE: Addendum STANDARD TITLE: ADDENDUM DATE OF NOTE: JUL 11, 2024@12:59:10 ENTRY DATE: JUL 11, 2024@12:59:10 AUTHOR: SUHAIL ETIENNE MD EXP COSIGNER: URGENCY: STATUS: COMPLETED received script for baby asa 81 mg from [facility]--jimmy ramirez , dated 07/11/2024, he is on eliquis from [facility], do not have supporting documentqtion of th eindictaion for this , due to the nature of this, I recommned, he should get this med OTC as per private provider's recommendation ( it is fairly inexpensive ) /homar/ SUHAIL ETIENNE MD Staff Physician, Icd 9 Coder - [facility] Signed: 07/11/2024 13:01 Receipt Acknowledged By: 07/11/2024 14:25 /homar/ MICHELE MAX, RN, RAC-CT REGISTERED NURSE --- Original Document --- 03/05/24 PRIMARY CARE: A/P:comanaged - hx of diarrhea / pnacreatic insufficiency-resolved, creon helped - hx of atrail fib - 03/2021- non va ,on eliquis, ppi, also on plavix - needs note from his cardiology every yr - CAD - stable -- small NH 2016-, pci ? october 2021 , no chest pains - on ranexa - sees private cardiology [ on carvedilol , statin ,ranexa .eliquis neg lexiscan in july 2019,)cardiac cath 2021 at [facility] - afib - on eliquis - HTN- needing med adjustment, , ,on carvedilol,acei ,ranexa - seeing [facility] . med adjustment is being done currently - DM-2- ?control- controlled -- last a 1 c 5.6 in jan 2024 - on long acting insulin , ozempic - - statin ,jardiance . - last eye mar 2023no retinopathy , . I have discussed that his hgb a1 c should be between 7-8 for his age and it is prudent to adjust his meds for this. his local PCP is managing diabetes, and insulins were being decreased since then , dc aspart ( 01/28/2020) - CKD - -now sees [facility] - HLD - on statin ( non va ) - GERD- using pantoprazole , ( on plavix and eliquis) - had egd in feb 2023 in private sector , no report seen - hx of anejaculation - ?from DM, HTN vs meds like flomax, citalopram - tremors of hand - ? essential - mild ,- not a complaint today - intermittent lightheadedness with no other sx - improved ,not a complaint today - hx elevated PSA - was 7.5- was treated with bactrim in late august 2016 - sees private urology - on flomax,finasteride, , november 2018- had bx on 07/03/2019 - negative ( non va ), last psa - jan 2024 at [facility]- benign ( 1.5) - hx of heart murmur- TTE done,,he has no sx of any chest pains, palpitatins, orthopnea - TTE - july 2019:CONCLUSIONS Hyperdynamic LV systolic function with estimated ejection fraction >70%. Normal LV size, mild to moderate LVH. Normal LV wall motion. Normal right ventricular size and function. Dilated proximal ascending aorta at the tubualr segment, 40 mm. Valves not optimally visualized. Doubt significant valve dysfunction. Left Atrium Mild left atrial dilatation. , ? mild aortic stenosis repeat tte 09/2022. Mild mitral and aortic regurgitation. -- - ABEL- using cpap - seen in sleep clinic - ? restless legs - now on trial of gabapentin thru private sector - Tinnitus - chronic pain --- bilateral arm pain likely neuropthy - emgs of UE in may 2016 - nl - on gabapentin - vit d def- takes supplements - chronic LBP - sees private pain doctors, on gabapentin, , get pain injections also - seasonal affective disorder - did not tolerate prozac, stable on citalopram - preventive health - RSV vax today last cscope ? may 2014 - unsure of polyps , ? next one scheduled for dec 2019??? -- not done - sees private GI asked him to get us last cscope report )- he has egd and cscope - non va( in feb 2023 ) , last eye exam - mar 2023- - no retinopathy - psa- being followed by local urology/ pcp , last one in jan 2024 at [facility] - meds renewed as needed , - reviewed labs from jan 2024 ( renal labs ) - CGM consult placed - plan for hgba 1 c with next renal labs -06/2024 - recheck in 6 m , vvc ( he adrien carpio alternating f2f with vvc ) time spent 40 mts 73 MALE Here for : follow up visit / f2f visit last seen in october 2022, tele visit in feb 2023 and vvc in 08/2023 - doing ok, - requests CGM and RSV vaccine , consent obtained: RSV Shared Decision Making: Is [place] at least 60 years of age?-yes Does have any of the following conditions that increase risk for complications of RSV infection: COPD- Asthma CHF CAD CVA DM-yes CKD- yes Neurologic/neuromuscular disorder Liver disorder Hematologic disorder 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 Is [place] frail? Any allergy to vaccine or any of it's components? Egg allergy (Martiniquais hamster ovary cells) tromethamine tromethamine hydrochloride sucrose mannitol polysorbate sodium chloride Education provided to [place] regarding RSV vaccine. Informed [place] that this is a new vaccine, limited to no information is available on the efficacy of the vaccine as well as any associated risks, to include Guillain-barre disease. Extensive discussion regarding GB. Additionally informed that no guidance has been provided regarding duration of protection or schedule of boosters going forward. Informed that at this time the full list of adverse drug effects are unknown. [place] states he understands the risks of receiving immunization. [place] requests to move forward with vaccine. - he has not been needing creon- so dc'd from med list - [facility] is trying to adjust BP meds - has some worsening of LBP - may get another inj , sees private pain providers - taking gabapentin - helps his chronic pain and RFA for chronic LBP, not on methocarbamal- thru local pain management at [facility]- on gabapentin titration also - no chest pains, no bleeding issues, no chest pains - no low BS or any changes in insulin dose - seeing neurology for neuropathy( non [facility] ) . - requests meds for 90 day supply -- med reconciliation done, some need to be 30 day supply ( citalopram , meds needing adjusments ) - he needs to get us gurwinder de león from his cardiology every yr - fax number provided - using cpap --------- noted below: - hx of complication with bleeding after poly removal in feb 2023 -- c scope - needed blood transfusion - so iron supplements, last cbc in 07/2023 - no anemia - also had egd ( benign per hx ) along with cscope in feb 2023 - in private sector - one polyp - unsur eof path report - had prostate bx on 07/03/2019 - negative, also had mri prostate ( non va ) he is seeing urology provider, , seen last in july 2020-,currently no urinary issues, on flomax noted below labs, 01/2024 - hgba 1c, tft -benign reviewed below: jun 2022 : regards to ----Faxed order for Ranexa 500mg two times daily (provider Sandra Rey) reviewed [facility] cardiology record, dated 12/04/2021-- dr Maryuri rey -------- seen after ed c=visit for lightheadedness and hypotension , isosorbide was dc'd . he felt better has some atypical chest pains --- stress test was ordered to eval for ischemia in left circ territory lexiscan - positive -- apr 2022 -- [facility] - cardiac cath done 05/05/2022-- previuosly placed stent in mid LAD is widely patent moderate to severe disease in AV groove circ . this is small vessel and is not amenable to PCI - mild non obstrctive CAD in ostial and proximal RCA - recommned baby asa, plavix , statin and optimization of medical management for CAD placed NF consult for ranexa- got approved -sees private cardiology ROS: NO CP, SOB, Hematochezia, Urinary complaints, N/V/D/edema, and as above PMH : comanaged LMD:Dr Membreno, PCP , GI- tracy tiwari - cardiology - in gurinder sleep Dr mazariegos ortho - Dr Mendosa - urology - DR king[facility] pain doctors [place] Percent: 30% Rated Disabilities: IMPAIRED HEARING (0%-SC) TINNITUS (10%-SC) TRAUMATIC ARTHRITIS (0%-SC) LIMITED MOTION OF ARM (20%-SC) - hx of atrail fib one episode - mar 2021 - ? pancreatic insufficiency- not needing creon 2023 - chronic LBP - HTN - tremors of hands - restless legs - GERD - HLD - CKD - OA-knees, hands, back - dm-2 - tinnitus - sleep apnea- has cpap - GERD - bilateral arm pains - emg may 2016 --- Interpretation: Normal examination. There is no electrodiagnostic evidence of an upper extremity radiculopathy, plexopathy or mononeuropathy. - ? seasonal affective disorder - prozac was not tolerated , on citalopram - elevated psa - 7.5 in august 2016, nl later - vit d def - non smoker PREVENTIVE HEALTH:flu vax - yrly COLONOSCOPY - 2014 polyps and diverticulosis ( no report available ), ? next - one in dec 2019- non [facility]-- [facility]- he has egd and cscope - non va( in feb 2023 )- no report seen , PROSTATE - nl in apr 2017 - ppsv 2014 ,jan 2020 tdap - 02/2017 shingles vax - 04/2018 , second 11/2018 pcv 13 - 02/2017 psa - nl november 2018 hiv and hepc - neg 02/2017 - last eye exam - - no retinopathy - 12/2018, dec 2019, november 2020, jan 2022, mar 2023, ?laet appt in july 2024 - trista scan neg - 07/2019 TTE 07/2019:VA CONCLUSIONS Hyperdynamic LV systolic function with estimated ejection fraction >70%. Normal LV size, mild to moderate LVH. Normal LV wall motion. Normal right ventricular size and function. Dilated proximal ascending aorta at the tubualr segment, 40 mm. Valves not optimally visualized. Doubt significant valve dysfunction. repeat tte 09/2022. Mild mitral and aortic regurgitation. ALLERGIES: Negative DRUGS/FOODS/LATEX/TAPE MEDS:see the list PE: Vitals Enter at: Mar 05, 2024@08:57:54 BP: 145/91- home BP Vitals Enter at: Mar 05, 2024@08:56:31 P: 50 R: 16 T: 96.8 GEN - NAd , limps when he first gets up from seated positions ( happens for yrs, gets shots periodically by private pain doctors ) HEENT- NC Lungs- cta b/l heart- RRR, no murmurs Abd- soft, NT Extr- no c/c/e Reminders HTN Assess for Elevated BP>=140/90: The patient's blood pressure is usually adequately controlled. No medication changes are indicated at this time. P-MEDICATION RECONCILIATION: Review of medications with the patient at the time of this encounter included: Patient local and remote allergies, active and pending prescriptions dispensed from this NH (local) and dispensed from another NH or [facility] facility (remote) as well as local inpatient and clinic medications (IMOs), locally documented non-VA medications and local prescriptions that have or been discontinued in the past 90 days. With the exception of allergies, if a category is not listed below, it means there were no relevant medications for the patient. The patient /family member received an updated list of current medications. Patient verbalized understanding. Local & Remote Allergies: ISOSORBIDE Active Outpatient Medications (including Supplies): ACCU-CHEK GUIDE (GLUCOSE) TEST STRIP USE 1 STRIP MISC ACTIVE DIRECTED ATORVASTATIN CALCIUM 40MG TAB TAKE ONE TABLET BY MOUTH ACTIVE ONCE DAILY FOR CHOLESTEROL CITALOPRAM HYDROBROMIDE 20MG TAB TAKE ONE TABLET BY MOUTH ACTIVE ONCE DAILY FOR MOOD CREON 36,000UNIT EC CAP TAKE 2 CAPSULES BY MOUTH THREE HOLD TIMES A DAY FOR PANCREATIC INSUFFICIENCY WITH MEALS TO HELP DIGESTION EMPAGLIFLOZIN 25MG TAB TAKE ONE-HALF TABLET BY MOUTH ONCE ACTIVE DAILY FOR DIABETES FINASTERIDE 5MG TAB TAKE ONE TABLET BY MOUTH ONCE DAILY ACTIVE FOR PROSTATE (NOTE: WOMEN WHO ARE, OR MAY BECOME, , SHOULD NOT HANDLE CRUSHED OR BROKEN TABLETS) GABAPENTIN 400MG CAP TAKE ONE CAPSULE BY MOUTH TWICE A DAY ACTIVE FOR NERVE PAIN IN THE EVENING AND AT BEDTIME LANCET,SOFTCLIX USE LANCET MISC THREE TIMES A DAY TO CHECK ACTIVE BLOOD SUGAR LISINOPRIL 10MG TAB TAKE ONE TABLET BY MOUTH ONCE DAILY TO ACTIVE PROTECT KIDNEYS METOPROLOL SUCCINATE 50MG SA TAB TAKE ONE TABLET BY MOUTH ACTIVE TWICE A DAY FOR HEART NEEDLE,PEN 31G,5MM USE 1 NEEDLE UNDER THE SKIN DIRECTED ACTIVE PANTOPRAZOLE NA 40MG EC TAB TAKE ONE TABLET BY MOUTH TWICE ACTIVE A DAY FOR HEARTBURN IN THE MORNING AND AT NOON 30 MINUTES BEFORE A MEAL RANOLAZINE 500MG SA TAB TAKE ONE TABLET BY MOUTH TWICE A ACTIVE DAY FOR CHEST PAIN SEMAGLUTIDE 0.25MG/0.375ML INJ PEN 3ML INJECT 0.5MG UNDER ACTIVE THE SKIN ONCE EVERY WEEK FOR DIABETES REPLACES LIRAGLUTIDE TAMSULOSIN HCL 0.4MG CAP TAKE ONE CAPSULE BY MOUTH EVERY ACTIVE EVENING FOR URINATION FOR PROSTATE (TAKE 30 MINUTES AFTER THE SAME MEAL EACH DAY) Non-VA CHOLECALCIF 25MCG (D3-1,000UNIT) TAB 2000UNIT MOUTH ACTIVE /es/ SUHAIL ETIENNE MD Staff Physician, Icd 9 Coder [facility] Signed: 03/05/2024 09:36 03/05/2024 ADDENDUM STATUS: COMPLETED received script for eliquis 5mg bid from [facility] / [facility] - dated 01/13/2024 dx PAF , # 180, refills 3 /es/ SUHAIL ETIENNE MD [facility] Phys[facility] Signed: 03/05/2024 13:12 06/13/2024 ADDENDUM STATUS: COMPLETED labs, 06/2024: - no anemia - creat 2.5- aa renal following - hgb a 1 c 6--- great ,but we need to lower thre risk of hypoglycemia recommneded range of a 1 c 7-8 for his age --on long acting insulin , ozempic - - statin ,jardiance . -recommend to lower insulin to 15 units a day med order updated urine - elevated microalb vitbd 47- satisfactory /es/ SUHAIL ETIENNE MD Staff Phys[facility] Signed: 06/14/2024 09:43 Receipt Acknowledged By: 06/14/2024 12:17 /homar/ MICHELE MAX, RN, [facility] REGISTERED NURSE SUHAIL ETIENNE MD [facility] Jun 13, 2024 12:41 PM ADDENDUM: LOCAL TITLE: Addendum STANDARD TITLE: ADDENDUM DATE OF NOTE: JUN 13, 2024@12:41:05 ENTRY DATE: JUN 13, 2024@12:41:06 AUTHOR: SUHAIL ETIENNE MD EXP COSIGNER: URGENCY: STATUS: COMPLETED labs, 06/2024: - no anemia - creat 2.5- aa renal following - hgb a 1 c 6--- great ,but we need to lower thre risk of hypoglycemia recommneded range of a 1 c 7-8 for his age --on long acting insulin , ozempic - - statin ,jardiance . -recommend to lower insulin to 15 units a day med order updated urine - elevated microalb vitbd 47- satisfactory /homar/ SUHAIL ETIENNE MD Staff Physician, Icd 9 Coder - [facility] Signed: 06/14/2024 09:43 Receipt Acknowledged By: 06/14/2024 12:17 /homar/ MICHELE MAX, RN, [facility] REGISTERED NURSE --- Original Document --- 03/05/24 PRIMARY CARE: A/P:comanaged - hx of diarrhea / pnacreatic insufficiency-resolved, creon helped - hx of atrail fib - 03/2021- non va ,on eliquis, ppi, also on plavix - needs note from his cardiology every yr - CAD - stable -- small NH 2016-, pci ? october 2021 , no chest pains - on ranexa - sees private cardiology [ on carvedilol , statin ,ranexa .eliquis neg lexiscan in july 2019,)cardiac cath 2021 at [facility] - afib - on eliquis - HTN- needing med adjustment, , ,on carvedilol,acei ,ranexa - [facility] . med adjustment is being done currently - DM-2- ?control- controlled -- last a 1 c 5.6 in jan 2024 - on long acting insulin , ozempic - - statin ,jardiance . - last eye mar 2023no retinopathy , . I have discussed that his hgb a1 c should be between 7-8 for his age and it is prudent to adjust his meds for this. his local PCP is managing diabetes, and insulins were being decreased since then , dc aspart ( 01/28/2020) - CKD - -now sees [facility] - HLD - on statin ( non va ) - GERD- using pantoprazole , ( on plavix and eliquis) - had egd in feb 2023 in private sector , no report seen - hx of anejaculation - ?from DM, HTN vs meds like flomax, citalopram - tremors of hand - ? essential - mild ,- not a complaint today - intermittent lightheadedness with no other sx - improved ,not a complaint today - hx elevated PSA - was 7.5- was treated with bactrim in late august 2016 - sees private urology - on flomax,finasteride, , november 2018- had bx on 07/03/2019 - negative ( non va ), last psa - [facility] 2024 at [facility]- benign ( 1.5) - hx of heart murmur- TTE done,,he has no sx of any chest pains, palpitatins, orthopnea - TTE - july 2019:CONCLUSIONS Hyperdynamic LV systolic function with estimated ejection fraction >70%. Normal LV size, mild to moderate LVH. Normal LV wall motion. Normal right ventricular size and function. Dilated proximal ascending aorta at the tubualr segment, 40 mm. Valves not optimally visualized. Doubt significant valve dysfunction. Left Atrium Mild left atrial dilatation. , ? mild aortic stenosis repeat tte 09/2022. Mild mitral and aortic regurgitation. -- - ABEL- using cpap - seen in sleep clinic - ? restless legs - now on trial of gabapentin thru private sector - Tinnitus - chronic pain --- bilateral arm pain likely neuropthy - emgs of UE in may 2016 - nl - on gabapentin - vit d def- takes supplements - chronic LBP - sees private pain doctors, on gabapentin, , get pain injections also - seasonal affective disorder - did not tolerate prozac, stable on citalopram - preventive health - RSV vax today last cscope ? may 2014 - unsure of polyps , ? next one scheduled for dec 2019??? -- not done - sees private GI asked him to get us last cscope report )- he has egd and cscope - non va( in feb 2023 ) , last eye exam - mar 2023- - no retinopathy - psa- being followed by local urology/ pcp , last one in jan 2024 at [facility] renewed as needed , - reviewed labs from jan 2024 ( renal labs ) - CGM consult placed - plan for hgba 1 c with next renal labs -06/2024 - recheck in 6 m , vvc ( he adrien carpio alternating f2f with vvc ) time spent 40 mts 73 MALE Here for : follow up visit / f2f visit last seen in october 2022, tele visit in feb 2023 and vvc in 08/2023 - doing ok, - requests CGM and RSV vaccine , consent obtained: RSV Shared Decision Making: Is at least 60 years of age?-yes Does have any of the following conditions that increase risk for complications of RSV infection: COPD- Asthma CHF CAD CVA DM-yes CKD- yes Neurologic/neuromuscular disorder Liver disorder Hematologic disorder 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 Is [place] frail? Any allergy to vaccine or any of it's components? Egg allergy (Martiniquais hamster ovary cells) tromethamine tromethamine hydrochloride sucrose mannitol polysorbate sodium chloride Education provided to [place] regarding RSV vaccine. Informed that this is a new vaccine, limited to no information is available on the efficacy of the vaccine as well as any associated risks, to include Guillain-barre disease. Extensive discussion regarding GB. Additionally informed [place] that no guidance has been provided regarding duration of protection or schedule of boosters going forward. Informed [place] that at this time the full list of adverse drug effects are unknown. states he understands the risks of receiving immunization. [place] requests to move forward with vaccine. - he has not been needing creon- so dc'd from med list - [facility] neph[facility] is trying to adjust BP meds - has some worsening of LBP - may get another inj , sees private pain providers - taking gabapentin - helps his chronic pain and RFA for chronic LBP, not on methocarbamal- thru local pain management at [facility]- [facility]- on gabapentin titration also - no chest pains, no bleeding issues, no chest pains - no low BS or any changes in insulin dose - seeing neurology for neuropathy( non [facility] ) . - requests meds for 90 day supply -- med reconciliation done, some need to be 30 day supply ( citalopram , meds needing adjusments ) - he needs to get us gurwinder de león from his cardiology every yr - fax number provided - using cpap --------- noted below: - hx of complication with bleeding after poly removal in feb 2023 -- c scope - needed blood transfusion - so iron supplements, last cbc in 07/2023 - no anemia - also had egd ( benign per hx ) along with cscope in feb 2023 - in private sector - one polyp - unsur eof path report - had prostate bx on 07/03/2019 - negative, also had mri prostate ( non va ) he is seeing urology provider, , seen last in july 2020-,currently no urinary issues, on flomax noted below labs, 01/2024 - hgba 1c, tft -benign reviewed below: jun 2022 : regards to ----Faxed order for Ranexa 500mg two times daily (provider Sandra Rey) reviewed [facility] cardiology record, dated 12/04/2021-- dr Maryuri rey -------- seen after ed c=visit for lightheadedness and hypotension , isosorbide was dc'd . he felt better has some atypical chest pains --- stress test was ordered to eval for ischemia in left circ territory lexiscan - positive -- apr 2022 -- [facility] - cardiac cath done 05/05/2022-- previuosly placed stent in mid LAD is widely patent moderate to severe disease in AV groove circ . this is small vessel and is not amenable to PCI - mild non obstrctive CAD in ostial and proximal RCA - recommned baby asa, plavix , statin and optimization of medical management for CAD placed NF consult for ranexa- got approved -sees private cardiology ROS: NO CP, SOB, Hematochezia, Urinary complaints, N/V/D/edema, and as above PMH : comanaged LMD:Dr Membreno, PCP , GI- tracy tiwari - cardiology - in [place] sleep Dr mazariegos ortho - Dr Mendosa - urology - DR [facility] [place] Percent: 30% Rated Disabilities: IMPAIRED HEARING (0%-SC) TINNITUS (10%-SC) TRAUMATIC ARTHRITIS (0%-SC) LIMITED MOTION OF ARM (20%-SC) - hx of atrail fib one episode - mar 2021 - ? pancreatic insufficiency- not needing creon 2023 - chronic LBP - HTN - tremors of hands - restless legs - GERD - HLD - CKD - OA-knees, hands, back - dm-2 - tinnitus - sleep apnea- has cpap - GERD - bilateral arm pains - emg may 2016 --- Interpretation: Normal examination. There is no electrodiagnostic evidence of an upper extremity radiculopathy, plexopathy or mononeuropathy. - ? seasonal affective disorder - prozac was not tolerated , on citalopram - elevated psa - 7.5 in august 2016, nl later - vit d def - non smoker PREVENTIVE HEALTH:flu vax - yrly COLONOSCOPY - 2014 polyps and diverticulosis ( no report available ), ? next - one in dec 2019- non va-- seen privtae gi on jan )- he has egd and cscope - non va( in feb 2023 )- no report seen , PROSTATE - nl in apr 2017 - ppsv 2014 ,jan 2020 tdap - 02/2017 shingles vax - 04/2018 , second 11/2018 pcv 13 - 02/2017 psa - nl november 2018 hiv and hepc - neg 02/2017 - last eye exam - - no retinopathy - 12/2018, dec 2019, november 2020, jan 2022, mar 2023, ?laet appt in july 2024 - trista scan neg - 07/2019 TTE 07/2019:[facility] CONCLUSIONS Hyperdynamic LV systolic function with estimated ejection fraction >70%. Normal LV size, mild to moderate LVH. Normal LV wall motion. Normal right ventricular size and function. Dilated proximal ascending aorta at the tubualr segment, 40 mm. Valves not optimally visualized. Doubt significant valve dysfunction. repeat tte 09/2022. Mild mitral and aortic regurgitation. ALLERGIES: Negative DRUGS/FOODS/LATEX/TAPE MEDS:see the list PE: Vitals Enter at: Mar 05, 2024@08:57:54 BP: 145/91- home BP Vitals Enter at: Mar 05, 2024@08:56:31 P: 50 R: 16 T: 96.8 GEN - NAd , limps when he first gets up from seated positions ( happens for yrs, gets shots periodically by private pain doctors ) HEENT- NC Lungs- cta b/l heart- RRR, no murmurs Abd- soft, NT Extr- no c/c/e Reminders HTN Assess for Elevated BP>=140/90: The patient's blood pressure is usually adequately controlled. No medication changes are indicated at this time. P-MEDICATION RECONCILIATION: Review of medications with the patient at the time of this encounter included: Patient local and remote allergies, active and pending prescriptions dispensed from this NH (local) and dispensed from another NH or [facility] facility (remote) as well as local inpatient and clinic medications (IMOs), locally documented non-VA medications and local prescriptions that have or been discontinued in the past 90 days. With the exception of allergies, if a category is not listed below, it means there were no relevant medications for the patient. The patient /family member received an updated list of current medications. Patient verbalized understanding. Local & Remote Allergies: ISOSORBIDE Active Outpatient Medications (including Supplies): ACCU-CHEK GUIDE (GLUCOSE) TEST STRIP USE 1 STRIP MISC ACTIVE DIRECTED ATORVASTATIN CALCIUM 40MG TAB TAKE ONE TABLET BY MOUTH ACTIVE ONCE DAILY FOR CHOLESTEROL CITALOPRAM HYDROBROMIDE 20MG TAB TAKE ONE TABLET BY MOUTH ACTIVE ONCE DAILY FOR MOOD CREON 36,000UNIT EC CAP TAKE 2 CAPSULES BY MOUTH THREE HOLD TIMES A DAY FOR PANCREATIC INSUFFICIENCY WITH MEALS TO HELP DIGESTION EMPAGLIFLOZIN 25MG TAB TAKE ONE-HALF TABLET BY MOUTH ONCE ACTIVE DAILY FOR DIABETES FINASTERIDE 5MG TAB TAKE ONE TABLET BY MOUTH ONCE DAILY ACTIVE FOR PROSTATE (NOTE: WOMEN WHO ARE, OR MAY BECOME, , SHOULD NOT HANDLE CRUSHED OR BROKEN TABLETS) GABAPENTIN 400MG CAP TAKE ONE CAPSULE BY MOUTH TWICE A DAY ACTIVE FOR NERVE PAIN IN THE EVENING AND AT BEDTIME LANCET,SOFTCLIX USE LANCET MISC THREE TIMES A DAY TO CHECK ACTIVE BLOOD SUGAR LISINOPRIL 10MG TAB TAKE ONE TABLET BY MOUTH ONCE DAILY TO ACTIVE PROTECT KIDNEYS METOPROLOL SUCCINATE 50MG SA TAB TAKE ONE TABLET BY MOUTH ACTIVE TWICE A DAY FOR HEART NEEDLE,PEN 31G,5MM USE 1 NEEDLE UNDER THE SKIN DIRECTED ACTIVE PANTOPRAZOLE NA 40MG EC TAB TAKE ONE TABLET BY MOUTH TWICE ACTIVE A DAY FOR HEARTBURN IN THE MORNING AND AT NOON 30 MINUTES BEFORE A MEAL RANOLAZINE 500MG SA TAB TAKE ONE TABLET BY MOUTH TWICE A ACTIVE DAY FOR CHEST PAIN SEMAGLUTIDE 0.25MG/0.375ML INJ PEN 3ML INJECT 0.5MG UNDER ACTIVE THE SKIN ONCE EVERY WEEK FOR DIABETES REPLACES LIRAGLUTIDE TAMSULOSIN HCL 0.4MG CAP TAKE ONE CAPSULE BY MOUTH EVERY ACTIVE EVENING FOR URINATION FOR PROSTATE (TAKE 30 MINUTES AFTER THE SAME MEAL EACH DAY) Non-VA CHOLECALCIF 25MCG (D3-1,000UNIT) TAB 2000UNIT MOUTH ACTIVE /homar/ SUHAIL ETIENNE MD Staff Physician, Icd 9 Coder - [place] [facility] Signed: 03/05/2024 09:36 03/05/2024 ADDENDUM STATUS: COMPLETED received script for eliquis 5mg bid from [facility] / [facility] - dated 01/13/2024 dx PAF , # 180, refills 3 /homar/ SUHAIL ETIENNE MD Staff Physician, Icd 9 Coder - [place] [facility] Signed: 03/05/2024 13:12 SUHIAL ETIENNE MD [facility] Mar 05, 2024 09:41 AM PRIMARY CARE IMMUN IZATION NOTE: LOCAL TITLE: IMMUNIZATIONS STANDARD TITLE: PRIMARY CARE IMMUNIZATION NOTE DATE OF NOTE: MAR 05, 2024@09:41 ENTRY DATE: MAR 05, 2024@09:42:50 AUTHOR: ELKE NEWBY EXP COSIGNER: URGENCY: STATUS: COMPLETED RSV Vaccine Respiratory Syncytial Virus (RSV) Vaccine: RSV vaccine administered today. Administered: RSV, BIVALENT, PROTEIN SUBUNIT RSVPREF, DILUENT RECONSTITUTED, 0.5 ML, PF Date Administered: Mar 05, 2024 09:00 Roving Hand: Netech[employer] Lot: [id number] Exp Date: Feb 05, 2025 NDC: [id number] Admin Route/Site: INTRAMUSCULAR/LEFT DELTOID Dosage: 0.5mL Vaccine Information Statement(s): RSV (RESPIRATORY SYNCYTIAL VIRUS) VACCINE VIS Feb 24, 2023 (ITALIAN) Order By: Suhail Etienne MD Administered By: Valentine Newby Vaccine Information Sheet (VIS) was given to the patient/caregiver, education regarding adverse reactions was discussed, as well as barriers to learning, if any, were acknowledged. JLV reviewed and no evidence of prior immunization for this dose is NOT due for shingles (Shingrix) immunization at this time /homar/ VALENTINE NEWBY PACT Licensed Practical Nurse Signed: 03/05/2024 09:43 ELKE NEWBY [facility] Mar 05, 2024 08:51 AM PRIMARY CARE NURSI NG NOTE: LOCAL TITLE: PRIMARY CARE PREVENTIVE HEALTH STANDARD TITLE: PRIMARY CARE NURSING NOTE DATE OF NOTE: MAR 05, 2024@08:51 ENTRY DATE: MAR 05, 2024@08:51:44 AUTHOR: SAQIB SUH COSIGNER: URGENCY: STATUS: COMPLETED COVID-19 Immunization: Refused Pfizer Monovalent COVID-19 vaccine Immunization: COVID-19 (PFIZER), MRNA, LNP-S, PF, EUGENIA-SUCROSE, 30 MCG/0.3 ML (AGES 12+ YEARS) Refusal Reason: PATIENT DECISION Patient refuses all immunization(s) in the COVID-19 group Date Documented: 03/05/24 08:52 N-Whole Health:What Matters Most: What matters most to you in your life right now? 's Response: Keeping blood pressure down. RHS Screen: RHS Screen Session Format: Face to Face Environmental Check Screening was not completed at this time due to: Another adult present N-Pain Screen: Are you currently experiencing pain? Yes - DVPRS scale used to assess Location: low back Defense and Veterans Pain Rating Scale (DVPRS): 10 As bad as it can be, nothing else matters Pain Score: 10 Patient's acceptable pain goal: 0 No pain N-MEDICATION RECONCILIATION: Review of medications and allergies at the time of this encounter included: Local and remote allergies, active and pending prescriptions dispensed from this NH (local) and dispensed from another NH or [facility] facility (remote) as well as local inpatient and clinic medications (IMOs), locally documented non-VA medications and local prescriptions that have or been discontinued in the past 90 days. If a category is not listed below, it means there were no known relevant local and/or remote medications and/or allergies. The patient/family member received an updated list of current medications. Local & Remote Allergies: ISOSORBIDE Active Outpatient Medications (including Supplies): ACCU-CHEK GUIDE (GLUCOSE) TEST STRIP USE 1 STRIP MISC ACTIVE DIRECTED ATORVASTATIN CALCIUM 40MG TAB TAKE ONE TABLET BY MOUTH ACTIVE ONCE DAILY FOR CHOLESTEROL CITALOPRAM HYDROBROMIDE 20MG TAB TAKE ONE TABLET BY MOUTH ACTIVE ONCE DAILY FOR MOOD CREON 36,000UNIT EC CAP TAKE 2 CAPSULES BY MOUTH THREE HOLD TIMES A DAY FOR PANCREATIC INSUFFICIENCY WITH MEALS TO HELP DIGESTION EMPAGLIFLOZIN 25MG TAB TAKE ONE-HALF TABLET BY MOUTH ONCE ACTIVE DAILY FOR DIABETES FINASTERIDE 5MG TAB TAKE ONE TABLET BY MOUTH ONCE DAILY ACTIVE FOR PROSTATE (NOTE: WOMEN WHO ARE, OR MAY BECOME, , SHOULD NOT HANDLE CRUSHED OR BROKEN TABLETS) GABAPENTIN 400MG CAP TAKE ONE CAPSULE BY MOUTH TWICE A DAY ACTIVE FOR NERVE PAIN IN THE EVENING AND AT BEDTIME LANCET,SOFTCLIX USE LANCET MISC THREE TIMES A DAY TO CHECK ACTIVE BLOOD SUGAR LISINOPRIL 10MG TAB TAKE ONE TABLET BY MOUTH ONCE DAILY TO ACTIVE PROTECT KIDNEYS METOPROLOL SUCCINATE 50MG SA TAB TAKE ONE TABLET BY MOUTH ACTIVE TWICE A DAY FOR HEART NEEDLE,PEN 31G,5MM USE 1 NEEDLE UNDER THE SKIN DIRECTED ACTIVE PANTOPRAZOLE NA 40MG EC TAB TAKE ONE TABLET BY MOUTH TWICE ACTIVE A DAY FOR HEARTBURN IN THE MORNING AND AT NOON 30 MINUTES BEFORE A MEAL RANOLAZINE 500MG SA TAB TAKE ONE TABLET BY MOUTH TWICE A ACTIVE DAY FOR CHEST PAIN SEMAGLUTIDE 0.25MG/0.375ML INJ PEN 3ML INJECT 0.5MG UNDER ACTIVE THE SKIN ONCE EVERY WEEK FOR DIABETES REPLACES LIRAGLUTIDE TAMSULOSIN HCL 0.4MG CAP TAKE ONE CAPSULE BY MOUTH EVERY ACTIVE EVENING FOR URINATION FOR PROSTATE (TAKE 30 MINUTES AFTER THE SAME MEAL EACH DAY) Non-VA CHOLECALCIF 25MCG (D3-1,000UNIT) TAB 2000UNIT MOUTH ACTIVE N-Stress Discussed ([facility]): [place] DENIES experiencing substantial stress or worry in the past month. Hypoglycemia Screen: Hypoglycemia Screen: In the past few months, how often did the patient/caregiver report that the patient had a low blood sugar? None reported ADDITIONAL OPTIONS: N-Advance Directive: Patient's advance directive status: Patient does not have an advance directive. Patient is not interested in an advance directive at this time. Patient declined advanced directives at this encounter. N-HTN Assess Elevated BP>=140/90: The patient's most recent Blood Pressure recorded in the computer exceeds the recommended maximum of 139/89. Most recent Blood Pressure: 143/89 (02/16/2024 09:48) Enter In-Clinic Blood Pressure. Blood Pressure: 164/98 Automatic (if BP > 139/89 on first check, recheck with Manual) PAVE Foot Check: A complete foot check was completed at this encounter. VISUAL INSPECTION: Includes inspection for skin breaks, deformity, erythema, trauma, pallor on elevation, dependent rubor, nail deformities, extensive callus and pitting edema. Visual exam results: Normal PEDAL PULSES: Includes palpation of dorsalis and posterior tibial pulses and signs/symptoms of vascular compromise like pain, pallor, parasthesia or paralysis. Present (even if diminished) SENSORY CHECK: Includes 10 gram Monofilament ([place]) test of sensation. Intact (Greater than or equal to 80% of sites checked) Abnormal (Less than 80% of sites checked): Intact LOW-RISK: LOW RISK INFORMATION PROVIDED: 1. Advised patient not to walk barefoot. 2. Explained the importance of daily foot checks for changes. 3. Stressed the importance of daily foot hygiene, including bathing and complete drying. /homar/ SAQIB SUH Licensed Practical Nurse Signed: 03/05/2024 09:01 SAQIB SUH [facility] Mar 05, 2024 08:05 AM PRIMARY CARE OUT[facility] NOTE: LOCAL TITLE: PRIMARY CARE STANDARD TITLE: PRIMARY CARE OUTPATIENT NOTE DATE OF NOTE: MAR 05, 2024@08:05 ENTRY DATE: MAR 05, 2024@08:05:54 AUTHOR: SUHAIL ETIENNE MD EXP COSIGNER: URGENCY: STATUS: COMPLETED PRIMARY CARE Has ADDENDA A/P:comanaged - hx of diarrhea / pnacreatic insufficiency-resolved, creon helped - hx of atrail fib - 03/2021- non va ,on eliquis, ppi, also on plavix - needs note from his cardiology every yr - CAD - stable -- small NH 2016-, pci ? october 2021 , no chest pains - on ranexa - sees private cardiology [ on carvedilol , statin ,ranexa .eliquis neg lexiscan in july 2019,)cardiac cath 2021 at [facility] - afib - on eliquis - HTN- needing med adjustment, , ,on carvedilol,acei ,ranexa - seeing [facility] . med adjustment is being done currently - DM-2- ?control- controlled -- last a 1 c 5.6 in jan 2024 - on long acting insulin , ozempic - - statin ,jardiance . - last eye mar 2023no retinopathy , . I have discussed that his hgb a1 c should be between 7-8 for his age and it is prudent to adjust his meds for this. his local PCP is managing diabetes, and insulins were being decreased since then , dc aspart ( 01/28/2020) - CKD - -now sees renal - HLD - on statin ( non va ) - GERD- using pantoprazole , ( on plavix and eliquis) - had egd in feb 2023 in private sector , no report seen - hx of anejaculation - ?from DM, HTN vs meds like flomax, citalopram - tremors of hand - ? essential - mild ,- not a complaint today - intermittent lightheadedness with no other sx - improved ,not a complaint today - hx elevated PSA - was 7.5- was treated with bactrim in late august 2016 - sees private urology - on flomax,finasteride, , november 2018- had bx on 07/03/2019 - negative ( non va ), last psa - jan 2024 at [facility]- benign ( 1.5) - hx of heart murmur- TTE done,,he has no sx of any chest pains, palpitatins, orthopnea - TTE - july 2019:CONCLUSIONS Hyperdynamic LV systolic function with estimated ejection fraction >70%. Normal LV size, mild to moderate LVH. Normal LV wall motion. Normal right ventricular size and function. Dilated proximal ascending aorta at the tubualr segment, 40 mm. Valves not optimally visualized. Doubt significant valve dysfunction. Left Atrium Mild left atrial dilatation. , ? mild aortic stenosis repeat tte 09/2022. Mild mitral and aortic regurgitation. -- - ABEL- using cpap - seen in sleep clinic - ? restless legs - now on trial of gabapentin thru private sector - Tinnitus - chronic pain --- bilateral arm pain likely neuropthy - emgs of UE in may 2016 - nl - on gabapentin - vit d def- takes supplements - chronic LBP - sees private pain doctors, on gabapentin, , get pain injections also - seasonal affective disorder - did not tolerate prozac, stable on citalopram - preventive health - RSV vax today last cscope ? may 2014 - unsure of polyps , ? next one scheduled for dec 2019??? -- not done - sees private GI asked him to get us last cscope report )- he has egd and cscope - non va( in feb 2023 ) , last eye exam - mar 2023- - no retinopathy - psa- being followed by local urology/ pcp , last one in jan 2024 at [facility] renewed as needed , - reviewed labs from jan 2024 ( renal labs ) - CGM consult placed - plan for hgba 1 c with next renal labs -06/2024 - recheck in 6 m , vvc ( he adrien carpio alternating f2f with vvc ) time spent 40 mts 73 MALE Here for : follow up visit / f2f visit last seen in october 2022, tele visit in feb 2023 and vvc in 08/2023 - doing ok, - requests CGM and RSV vaccine , consent obtained: RSV Shared Decision Making: Is at least 60 years of age?-yes Does have any of the following conditions that increase risk for complications of RSV infection: COPD- Asthma CHF CAD CVA DM-yes CKD- yes Neurologic/neuromuscular disorder Liver disorder Hematologic disorder Is [place] a bed bug 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 Is [place] frail? Any allergy to vaccine or any of it's components? Egg allergy (Martiniquais hamster ovary cells) tromethamine tromethamine hydrochloride sucrose mannitol polysorbate sodium chloride Education provided to [place] regarding RSV vaccine. Informed [place] that this is a new vaccine, limited to no information is available on the efficacy of the vaccine as well as any associated risks, to include Guillain-barre disease. Extensive discussion regarding GB. Additionally informed that no guidance has been provided regarding duration of protection or schedule of boosters going forward. Informed [place] that at this time the full list of adverse drug effects are unknown. states he understands the risks of receiving immunization. [place] requests to move forward with vaccine. - he has not been needing creon- so dc'd from med list - [facility] is trying to adjust BP meds - has some worsening of LBP - may get another inj , sees private pain providers - taking gabapentin - helps his chronic pain and RFA for chronic LBP, not on methocarbamal- thru local pain management at [facility]- on gabapentin titration also - no chest pains, no bleeding issues, no chest pains - no low BS or any changes in insulin dose - seeing neurology for neuropathy( non VA ) . - requests meds for 90 day supply -- med reconciliation done, some need to be 30 day supply ( citalopram , meds needing adjusments ) - he needs to get us gurwinder de león from his cardiology every yr - fax number provided - using cpap --------- noted below: - hx of complication with bleeding after poly removal in feb 2023 -- c scope - needed blood transfusion - so iron supplements, last cbc in 07/2023 - no anemia - also had egd ( benign per hx ) along with cscope in feb 2023 - in private sector - one polyp - unsur eof path report - had prostate bx on 07/03/2019 - negative, also had mri prostate ( non va ) he is seeing urology provider, , seen last in july 2020-,currently no urinary issues, on flomax noted below labs, 01/2024 - hgba 1c, tft -benign reviewed below: jun 2022 : regards to ----Faxed order for Ranexa 500mg two times daily (provider Sandra Rey) reviewed [facility] cardiology record, dated 12/04/2021-- dr Maryuri rey -------- seen after ed c=visit for lightheadedness and hypotension , isosorbide was dc'd . he felt better has some atypical chest pains --- stress test was ordered to eval for ischemia in left circ territory lexiscan - positive -- apr 2022 -- [facility] - cardiac cath done 05/05/2022-- previuosly placed stent in mid LAD is widely patent moderate to severe disease in AV groove circ . this is small vessel and is not amenable to PCI - mild non obstrctive CAD in ostial and proximal RCA - recommned baby asa, plavix , statin and optimization of medical management for CAD placed NF consult for ranexa- got approved -sees private cardiology ROS: NO CP, SOB, Hematochezia, Urinary complaints, N/V/D/edema, and as above PMH : comanaged LMD:Dr Membreno, PCP , GI- tracy tiwari - cardiology - in [place] sleep Dr mazariegos ortho - Dr Mendosa - urology - DR kingston neurology pain doctors [place] Percent: 30% Rated Disabilities: IMPAIRED HEARING (0%-SC) TINNITUS (10%-SC) TRAUMATIC ARTHRITIS (0%-SC) LIMITED MOTION OF ARM (20%-SC) - hx of atrail fib one episode - mar 2021 - ? pancreatic insufficiency- not needing creon 2023 - chronic LBP - HTN - tremors of hands - restless legs - GERD - HLD - CKD - OA-knees, hands, back - dm-2 - tinnitus - sleep apnea- has cpap - GERD - bilateral arm pains - emg may 2016 --- Interpretation: Normal examination. There is no electrodiagnostic evidence of an upper extremity radiculopathy, plexopathy or mononeuropathy. - ? seasonal affective disorder - prozac was not tolerated , on citalopram - elevated psa - 7.5 in august 2016, nl later - vit d def - non smoker PREVENTIVE HEALTH:flu vax - yrly COLONOSCOPY - 2014 polyps and diverticulosis ( no report available ), ? next - one in dec 2019- non va-- seen alejandra gi on jan )- he has egd and cscope - non va( in feb 2023 )- no report seen , PROSTATE - nl in apr 2017 - ppsv 2014 ,jan 2020 tdap - 02/2017 shingles vax - 04/2018 , second 11/2018 pcv 13 - 02/2017 psa - nl november 2018 hiv and hepc - neg 02/2017 - last eye exam - - no retinopathy - 12/2018, dec 2019, november 2020, jan 2022, mar 2023, ?laet appt in july 2024 - trista scan neg - 07/2019 TTE 07/2019:VA CONCLUSIONS Hyperdynamic LV systolic function with estimated ejection fraction >70%. Normal LV size, mild to moderate LVH. Normal LV wall motion. Normal right ventricular size and function. Dilated proximal ascending aorta at the tubualr segment, 40 mm. Valves not optimally visualized. Doubt significant valve dysfunction. repeat tte 09/2022. Mild mitral and aortic regurgitation. ALLERGIES: Negative DRUGS/FOODS/LATEX/TAPE MEDS:see the list PE: Vitals Enter at: Mar 05, 2024@08:57:54 BP: 145/91- home BP Vitals Enter at: Mar 05, 2024@08:56:31 P: 50 R: 16 T: 96.8 GEN - NAd , limps when he first gets up from seated positions ( happens for yrs, gets shots periodically by private pain doctors ) HEENT- NC Lungs- cta b/l heart- RRR, no murmurs Abd- soft, NT Extr- no c/c/e Reminders HTN Assess for Elevated BP>=140/90: The patient's blood pressure is usually adequately controlled. No medication changes are indicated at this time. P-MEDICATION RECONCILIATION: Review of medications with the patient at the time of this encounter included: Patient local and remote allergies, active and pending prescriptions dispensed from this [facility] (local) and dispensed from another VA or DoD facility (remote) as well as local inpatient and clinic medications (IMOs), locally documented non-VA medications and local prescriptions that have or been discontinued in the past 90 days. With the exception of allergies, if a category is not listed below, it means there were no relevant medications for the patient. The patient /family member received an updated list of current medications. Patient verbalized understanding. Local & Remote Allergies: ISOSORBIDE Active Outpatient Medications (including Supplies): ACCU-CHEK GUIDE (GLUCOSE) TEST STRIP USE 1 STRIP MISC ACTIVE DIRECTED ATORVASTATIN CALCIUM 40MG TAB TAKE ONE TABLET BY MOUTH ACTIVE ONCE DAILY FOR CHOLESTEROL CITALOPRAM HYDROBROMIDE 20MG TAB TAKE ONE TABLET BY MOUTH ACTIVE ONCE DAILY FOR MOOD CREON 36,000UNIT EC CAP TAKE 2 CAPSULES BY MOUTH THREE HOLD TIMES A DAY FOR PANCREATIC INSUFFICIENCY WITH MEALS TO HELP DIGESTION EMPAGLIFLOZIN 25MG TAB TAKE ONE-HALF TABLET BY MOUTH ONCE ACTIVE DAILY FOR DIABETES FINASTERIDE 5MG TAB TAKE ONE TABLET BY MOUTH ONCE DAILY ACTIVE FOR PROSTATE (NOTE: WOMEN WHO ARE, OR MAY BECOME, , SHOULD NOT HANDLE CRUSHED OR BROKEN TABLETS) GABAPENTIN 400MG CAP TAKE ONE CAPSULE BY MOUTH TWICE A DAY ACTIVE FOR NERVE PAIN IN THE EVENING AND AT BEDTIME LANCET,SOFTCLIX USE LANCET MISC THREE TIMES A DAY TO CHECK ACTIVE BLOOD SUGAR LISINOPRIL 10MG TAB TAKE ONE TABLET BY MOUTH ONCE DAILY TO ACTIVE PROTECT KIDNEYS METOPROLOL SUCCINATE 50MG SA TAB TAKE ONE TABLET BY MOUTH ACTIVE TWICE A DAY FOR HEART NEEDLE,PEN 31G,5MM USE 1 NEEDLE UNDER THE SKIN DIRECTED ACTIVE PANTOPRAZOLE NA 40MG EC TAB TAKE ONE TABLET BY MOUTH TWICE ACTIVE A DAY FOR HEARTBURN IN THE MORNING AND AT NOON 30 MINUTES BEFORE A MEAL RANOLAZINE 500MG SA TAB TAKE ONE TABLET BY MOUTH TWICE A ACTIVE DAY FOR CHEST PAIN SEMAGLUTIDE 0.25MG/0.375ML INJ PEN 3ML INJECT 0.5MG UNDER ACTIVE THE SKIN ONCE EVERY WEEK FOR DIABETES REPLACES LIRAGLUTIDE TAMSULOSIN HCL 0.4MG CAP TAKE ONE CAPSULE BY MOUTH EVERY ACTIVE EVENING FOR URINATION FOR PROSTATE (TAKE 30 MINUTES AFTER THE SAME MEAL EACH DAY) Non-VA CHOLECALCIF 25MCG (D3-1,000UNIT) TAB 2000UNIT MOUTH ACTIVE /es/ SUHAIL ANITA KNOTT Staff Physician, Icd 9 Coder - Ani COON Signed: 03/05/2024 09:36 03/05/2024 ADDENDUM STATUS: COMPLETED received script for eliquis 5mg bid from [facility] / [facility] - dated 01/13/2024 dx PAF , # 180, refills 3 /antonia ETIENNE MD Staff Physician, Icd 9 Coder - [place] Signed: 03/05/2024 13:12 06/13/2024 ADDENDUM STATUS: COMPLETED labs, 06/2024: - no anemia - creat 2.5- aa renal following - hgb a 1 c 6--- great ,but we need to lower thre risk of hypoglycemia recommneded range of a 1 c 7-8 for his age --on long acting insulin , ozempic - - statin ,jardiance . -recommend to lower insulin to 15 units a day med order updated urine - elevated microalb vitbd 47- satisfactory /homar/ SUHAIL ETIENNE MD Staff Physician, Icd 9 Coder - [place] [facility] Signed: 06/14/2024 09:43 Receipt Acknowledged By: 06/14/2024 12:17 /homar/ MICHELE MAX, RN, [facility] REGISTERED NURSE 07/11/2024 ADDENDUM STATUS: COMPLETED received script for baby asa 81 mg from [facility]--jimmy ramirez , dated 07/11/2024, he is on eliquis from [facility], do not have supporting documentqtion of th eindictaion for this , due to the nature of this, I recommned, he should get this med OTC as per private provider's recommendation ( it is fairly inexpensive ) /antonia ETIENNE MD Staff Physician, Icd 9 Coder - [place] [facility] Signed: 07/11/2024 13:01 Receipt Acknowledged By: * AWAITING SIGNATURE * PETER BRITT BINDU MD [facility]
--- OUTSIDE RECORDS SUMMARY | 2024-04-10 12:45 | XMS_ITS | Encounter Summary ---
Author Name [facility] [place] [facility] [place] [facility] [place] Address [address] [place] [address] Care Team Providers Care Electrical Instrumentation Technician Name Role Phone SUHAIL HOWARD Primary Care [...] PART B Oct 07, 2017 PART B [id number] MAURY VILLALPANDO PATIENT MEDICARE (WNR) MEDICARE (M) PART A Oct 07, 2017 PART A [id number] MAURY VILLALPANDO PATIENT MEDICARE (WNR) MEDICARE (M) PART A Oct 07, 2017 PART A [id number] [phone] MAURY VILLALPANDO PATIENT MEDICARE (WNR) MEDICARE (M) PART B Oct 07, 2017 PART B [id number] MAURY VILLALPANDO PATIENT MEDICARE (WNR) MEDICARE (M) PART B Oct 07, 2017 PART B [id number] MAURY VILLALPANDO PATIENT MEDICARE (WNR) MEDICARE (M) PART A Oct 07, 2017 PART A [id number] MAURY VILLALPANDO PATIENT [facility] [place] NIHOMAR May 09, 2020 [id number] MAURY VILLALPANDO PATIENT [facility] FMILY OF [place] NI May 09, 2020 [id number] [phone] MAURY VILLALPANDO PATIENT Selected Encounter This section includes the information on record at [place] for the Encounter. Date/Time Encounter Type Encounter Description Reason Provider Source Apr 10, 2024 04:45 PM COMPRE OPH EXAM EST PT 1/> OPTOMETRY ICD-10-CM E11.9 Type 2 diabetes mellitus without complications PETTERBORG,PH ILLIP OD IHE Encounter Template Text not used by VA Assessments - Encounter Diagnoses This section includes the primary and secondary diagnoses documented for the Encounter. Date/Time Primary/Secondary Diagnosis Diagnosis Name Provider Source Apr 10, 2024 04:53 PM PRIMARY Type 2 diabetes mellitus without complications [place]TER[place],PHI LLIP OD [facility] [place] [facility] Apr 10, 2024 04:53 PM SECONDARY Age-related nuclear cataract, bilateral [place]TERB[place]G,PHI LLIP OD [facility] Apr 10, 2024 04:53 PM SECONDARY Hypermetropia, bilateral [place]G,PHI LLIP OD [facility] Apr 10, 2024 04:53 PM SECONDARY Presbyopia [place],PHI LLIP OD [facility] [place] [facility] Plan of Treatment: Future Appointments (+ 6 months) and Future Tests (+/- 45 days) The Plan of Treatment section includes future care activities for the patient from all [place] treatmentfacilities. This section includes future appointments and future orders which are active, pending or scheduled. Future Appointments This section includes appointments that were scheduled to occur 6 months from the date of the Encounter, up to a maximum of 20 appointments. The data comes from all [place] treatment facilities. Appointment Date/Time Appointment Type Appointme nt Facility Name Apr 12, 2024 10:00 AM AMBULATORY - MEDICINE [facility] May 10, 2024 10:00 AM AMBULATORY - MEDICINE [facility] May 11, 2024 10:23 AM AMBULATORY - NONE [facility] Jun 05, 2024 10:30 AM AMBULATORY - SURGERY CHAKA Steffen [facility] Jun 05, 2024 01:00 PM AMBULATORY - SURGERY CHAKA Steffen [facility] Jun 11, 2024 09:00 AM AMBULATORY - SURGERY CHAKA Steffen [facility] Jul 05, 2024 10:00 AM AMBULATORY - MEDICINE [facility] Aug 10, 2024 03:00 PM AMBULATORY - MEDICINE [facility] Lab Results: +/- 30 days of the encounter This section includes the Chemistry and Hematology Lab Results on record with [place] for the patient. Radiology Reports and Pathology Reports are provided separately, in subsequent sections. Lab Results This section contains the Chemistry/Hematology Results that were resulted 30 days before or 30 daysafter the date of the Encounter. Date/Time Source Result Type Result - Unit Interpretation Reference Range Specimen Type Comment Apr 26, 2024 11:05 AM [facility] RENAL FUNCTION PANEL (AA) BLOOD Specimen Type : BLOOD No comment entered. Ordering Provider: DAMION JEAN Report Released Date/Time: Mar 30, 2024 06:19 PM Reporting Lab: [facility] [address] [address] Performing Lab: [facility] [address] [address] CREATININE 2.2 mg/dL H 0.6-1.3 UREA NITROGEN 38 mg/dL H 7-25 GLUCOSE 165 mg/dL H 74-109 SODIUM 138 mmol/L 136-145 POTASSIUM 4.0 mmol/L 3.5-5.1 CHLORIDE 108 mmol/L H 98-107 CO2 23 mmol/L 21-31 CALCIUM 8.7 mg/dL 8.6-10.3 PO4 3.4 mg/dL 2.5-5 ALBUMIN 3.9 g/dL 3.5-5.7 EGFR 31 mL/min/{1.73_m2} Mar 29, 2024 11:07 AM [facility] RENAL FUNCTION PANEL (AA) BLOOD Specimen Type : BLOOD Comment: R-Specimen is slightly lipemic and may cause interference. See Laboratory Handbook Laboratory Interferences Table for more information. Ordering Provider: DAMION JEAN Report Released Date/Time: Mar 06, 2024 01:55 PM Reporting Lab: [facility] [address] [place] [address] Performing Lab: [facility] [address] [facility] [address] CREATININE 2.2 mg/dL H 0.6-1.3 UREA NITROGEN 29 mg/dL H 7-25 GLUCOSE 166 mg/dL H 74-109 SODIUM 137 mmol/L 136-145 POTASSIUM 4.8 mmol/L 3.5-5.1 CHLORIDE 104 mmol/L 98-107 CO2 28 mmol/L 21-31 CALCIUM 9.0 mg/dL 8.6-10.3 PO4 3.3 mg/dL 2.5-5 ALBUMIN 4.0 g/dL 3.5-5.7 EGFR 31 mL/min/{1.73_m2} Social History: Smoking Status (Most current) and Tobacco Use (All prior to encounter date) This section includes the most current, and the historical, smoking and tobacco- related health factors from the [place] facility where the Encounter took place. Current Smoking Status This section includes the most current smoking, or tobacco-related health factor, from the [place] facility where the Encounter took place. Date/Time Current Smoking Status Comment Daisy nobles Aug 16, 2023 07:30 AM [place]-TOBAC[place] NEVER USED [facility] Tobacco Use History This section includes a history of the smoking, or tobacco-related health factors, that were collected on or before the date of the Encounter. The data comes from the [place] facility where the Encounter took place. Date/Time Smoking Status/Tobacco Use Comment F acility Apr 21, 2022 09:00 AM [facility]-TOBACCO NEVER USED [facility] Apr 28, 2021 10:30 AM VA-TOBACCO NEVER USED [facility] May 29, 2019 10:34 AM VA-TOBACCO NEVER USED [facility] Dec 15, 2017 10:25 AM VA-TOBACCO NEVER USED [facility] Aug 18, 2017 03:43 PM LIFETIME NON-USER OF TOBACCO [facility] Sep 01, 2016 08:43 AM LIFETIME NON-USER OF TOBACCO [facility] Aug 21, 2015 10:40 AM LIFETIME NON-USER OF TOBACCO [facility] Encounter Notes: All associated encounter notes This section contains the clinical notes associated to the Encounter. Date/Time Encounter Note(s) Provider Source Apr 10, 2024 03:54 PM [facility]: LOCAL TITLE: OPHTHALMOLOGY OUTPATIENT FOLLOW-UP STANDARD TITLE: OPHTHALMOLOGY OUTPATIENT NOTE DATE OF NOTE: APR 10, 2024@15:54 ENTRY DATE: APR 10, 2024@15:54:19 AUTHOR: TREY KING COSIGNER: URGENCY: STATUS: COMPLETED OPHTHALMOLOGY OUTPATIENT FOLLOW-UP Has ADDENDA Ophthalmology Assessment Date:Apr CC: 73 yo IDDM MALE here for diabetic ocular health exam. C/O OD vision has been blurry with his current glasses over the past month. Collection DT Spec HGB A1C 01/18/2024 10:09 BLOOD 5.6 08/31/2023 11:28 BLOOD 5.5 Fasting BSL: 141 ROS: Do you have or have you ever had any of the following conditions? GENERAL: Allergies or Hayfever No Asthma / COPD No Sinus Problems No Diabetes Yes Thyroid Disease No Heart Disease Yes High Blood Pressure Yes Sleep Apnea Yes Tobacco Use No Alcohol Use No OCULAR: Eye Trauma No Eye Surgery No Amblyopia (lazy eye) No Double Vision No Crossed Eye / Wall Eye No Cataract (s) Yes Glaucoma No Macular Degeneration No Dry eyes Yes Other: FHx: (M=Mother,F=Father,B=Brother ,S=Sister,GM=Grandmother,GF= Grandfather,A=Aunt,U=Unc le) Do you have a family history of any of the following conditions? GENERAL: Diabetes Yes Heart Disease Yes High Blood Pressure No Thyroid Disease No OCULAR:Cataract (s) Yes Glaucoma No Macular Degeneration No Blindness No Eye Surgery No Other: Allergy:ISOSORBIDE PMH:DXLS/Procedures DXLS/Procedures No data available PROBLEM LIST ACTIVE 19 Active Problems PROBLEM LAST MOD PROVIDER Hypertension 12/31/2016 TAYO HOWARD Diabetes mellitus 08/18/2017 WILSON MULLEN Obstructive sleep apnea syndrome 12/31/2016 TAYO HOWARD Tinnitus 12/31/2016 TAYO HOWARD H/O: osteoarthritis 12/31/2016 TAYO HOWARD Chronic kidney disease stage 4 12/31/2016 ANITA,BIND Elevated PSA 12/31/2016 ANITA,BIND Hyperlipidemia 12/31/2016 ANITA,BIND Gastroesophageal reflux disease 02/24/2017 ANITA,BIND Vitamin D deficiency 04/14/2017 ANITA,BIND Presbyopia 08/18/2017 PETTERBORG,WILSON Hypermetropia 08/18/2017 PETTERBORG,WILSON Nuclear sclerotic cataract 08/18/2017 PETTERBORG,WILSON Tremor 04/14/2018 ANITA,BIND Renal impairment 04/26/2018 ANITA,BIND AF - Atrial fibrillation 04/28/2021 ANITA,BIND CAD - Coronary artery disease 11/03/2021 ANITA,BIND Long-term current use of anticoagulant 2021 MARY TAYLOR Exposure to potentially hazardous substance 07/19/2022 ANITA,BIND PROBLEM LIST INACTIVE No data available Systemic Meds: Active Outpatient Medications (including Supplies): Active Outpatient Medications Status 1) ACCU-CHEK GUIDE (GLUCOSE) TEST STRIP USE 1 STRIP [facility] ACTIVE DIRECTED 2) APIXABAN 5MG TAB TAKE ONE TABLET BY MOUTH TWICE A DAY ACTIVE FOR STROKE PREVENTION TO TREAT OR PREVENT CLOT 3) ATORVASTATIN CALCIUM 40MG TAB TAKE ONE TABLET BY ACTIVE MOUTH ONCE DAILY FOR CHOLESTEROL 4) CITALOPRAM HYDROBROMIDE 20MG TAB TAKE ONE TABLET BY ACTIVE MOUTH ONCE DAILY FOR MOOD 5) EMPAGLIFLOZIN 25MG TAB TAKE ONE-HALF TABLET BY MOUTH ACTIVE ONCE DAILY FOR DIABETES 6) FINASTERIDE 5MG TAB TAKE ONE TABLET BY MOUTH ONCE ACTIVE DAILY FOR PROSTATE (NOTE: WOMEN WHO ARE, OR MAY BECOME, , SHOULD NOT HANDLE CRUSHED OR BROKEN TABLETS) 7) GABAPENTIN 400MG CAP TAKE ONE CAPSULE BY MOUTH TWICE ACTIVE A DAY FOR NERVE PAIN IN THE EVENING AND AT BEDTIME 8) INSULIN,GLARGINE 100 UNT/ML 3ML SOLOSTAR INJECT 20 ACTIVE UNITS UNDER THE SKIN ONCE DAILY FOR DIABETES DISCARD PENS 28 DAYS AFTER FIRST USE ONE TIME FILL FOR BACKORDER 9) INSULIN,GLARGINE-YFGN 100UNIT/ML PEN 3ML INJECT 20 ACTIVE UNITS UNDER THE SKIN ONCE DAILY FOR DIABETES DISCARD PENS 28 DAYS AFTER FIRST USE 10) LISINOPRIL 40MG TAB TAKE ONE TABLET BY MOUTH ONCE ACTIVE DAILY TO PROTECT KIDNEYS 11) METOPROLOL SUCCINATE 50MG SA TAB TAKE ONE TABLET BY ACTIVE MOUTH TWICE A DAY FOR HEART 12) NEEDLE,PEN 31G,5MM USE 1 NEEDLE UNDER THE SKIN ACTIVE DIRECTED 13) NITROGLYCERIN 0.4MG SL TAB DISSOLVE ONE TABLET UNDER ACTIVE THE TONGUE NEEDED FOR CHEST PAIN. IF NO IMPROVEMENT AFTER FIRST DOSE CALL 911. MAY TAKE ADDITIONAL DOSES 5 MINUTES APART. 14) PANTOPRAZOLE NA 40MG EC TAB TAKE ONE TABLET BY MOUTH ACTIVE TWICE A DAY FOR HEARTBURN IN THE MORNING AND AT NOON 30 MINUTES BEFORE A MEAL 15) RANOLAZINE 500MG SA TAB TAKE ONE TABLET BY MOUTH ACTIVE TWICE A DAY FOR HEART RHYTHM FOR CHEST PAIN 16) SEMAGLUTIDE 0.25MG/0.375ML INJ PEN 3ML INJECT 0.5MG ACTIVE UNDER THE SKIN ONCE EVERY WEEK FOR DIABETES REPLACES LIRAGLUTIDE 17) SPIRONOLACTONE 25MG TAB TAKE ONE-HALF TABLET BY MOUTH ACTIVE EVERY DAY FOR BLOOD PRESSURE 18) TAMSULOSIN HCL 0.4MG CAP TAKE ONE CAPSULE BY MOUTH ACTIVE EVERY EVENING FOR URINATION FOR PROSTATE (TAKE 30 MINUTES AFTER THE SAME MEAL EACH DAY) Active Non-VA Medications Status 1) Non-VA CHOLECALCIF 25MCG (D3-1,000UNIT) TAB 2000UNIT ACTIVE MOUTH 19 Total Medications O: VA With OD 20/40-1 OS 20/25-2 Glasses OD:+0.50+0.54U453 OS:+1.25+0.24T396 Add:+2.50 Keratometry: OD: 43.50/44.25 @ 031 OS: 43.25/43.75 @ 114 TA@ 1607 OD: 12 mm Hg OS: 14 mm Hg Conf:Full EOM: Full Cover Test: Ortho Pupils: no APD /es/ TREY A [facility] [employer] Supervisor Optometry Signed: 04/10/2024 16:10 04/10/2024 ADDENDUM STATUS: COMPLETED Ophthalmology Assessment Neuro: Oriented: AO x 3 Affect: Normal Allergy:Patient has answered NKA The current medication list (including local and remote VA active medications, non-VA medications, recently and discontinued medications and pending orders) was reviewed and reconciled with the patient today. The patient/family member received an updated list of current medications. The patient was counseled on new medications and/or medication changes. Patient verbalized understanding. O: MR OD:+0.50 +0.25 x 105 (20/30-2) OS:+1.50 DS (20/20-1) Add:+2.50 J 1+ OU Brights OD: 20/100 OS: 20/20-2 Dilation: 0.5% Proparacaine, 1% Tropicamide OS and 2.5 % Phenylephrine OS (Patient educated on the side effects of drops) LL: Minimal meniscus OU C/S: Clear OU K: Arcus OU AC: Clear OU Iris: No NVI OU Lens: +2 NS/+1-2 PSC/+1 david OD and +1-2 NS/david OS Capsule: Clear OS Vitreous: Conrad ring OU C/D: 0.2 OS ONH: Small DD OS Macula: (-) CSME OS Vessels: AVR:0.6/+2 copperwiring OS Background: Normal OU A: DM II w/o ocular complications PVD OU Moderate combined cataract OD and mild OS TRINITY OU Presbyopia/hyperopia OU P: Advised re; findings today, encouraged good compliance and blood glucose control, and adaptation to new glasses Refer to [facility] ophth for cataract consult Rec'd AT Q4H OU Monitor cataracts and retina annually RTC: 1 yr for full exam or PRN /homar/ RENNY MULLEN OD Sheet Pile Driver OperatorAni CBOC Signed: 04/10/2024 16:54 [facility]
--- OUTSIDE RECORDS SUMMARY | 2024-05-01 08:09 | XMS_ITS | Encounter Summary ---
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 Name Role Phone SUHAIL HOWARD Primary Care [...] PART B Oct 07, 2017 PART B [id number] [facility] [id number] MAURY VILLALPANDO PATIENT MEDICARE (WNR) MEDICARE (M) PART A Oct 07, 2017 PART A [id number] [facility] [id number] MAURY VILLALPANDO PATIENT MEDICARE (WNR) MEDICARE (M) PART A Oct 07, 2017 PART A [id number] MAURY VILLALPANDO PATIENT MEDICARE (WNR) MEDICARE (M) PART B Oct 07, 2017 PART B [id number] [facility] MAURY VILLALPANDO PATIENT MEDICARE (WNR) MEDICARE (M) PART B Oct 07, 2017 PART B [id number] [facility] [id number] MAURY VILLALPANDO PATIENT MEDICARE (WNR) MEDICARE (M) PART A Oct 07, 2017 PART A [id number] MAURY VILLALPANDO PATIENT [facility] FAMIL Y LORETA NIES May 09, 2020 [id number] [phone] MAURY VILLALPANDO PATIENT [facility] FMILY OF [place]ORETA NI May 09, 2020 [id number] MAURY VILLALPANDO PATIENT Selected Encounter This section includes the information on record at [facility] for the Encounter. Date/Time Encounter Type Encounter Description Reason Pro vider Source May 01, 2024 12:09 PM Outpatient Encounter COMMUNITY CARE CONSULT IHE Encounter Template Text not used by MD Plan of Treatment: Future Appointments (+ 6 months) and Future Tests (+/- 45 days) The Plan of Treatment section includes future care activities for the patient from all [facility] treatmentfacilities. This section includes future appointments and future orders which are active, pending or scheduled. Future Appointments This section includes appointments that were scheduled to occur 6 months from the date of the Encounter, up to a maximum of 20 appointments. The data comes from all [facility] treatment facilities. Appointment Date/Time Appointment Type Appointme nt Facility Name May 10, 2024 10:00 AM AMBULATORY - MEDICINE [facility] May 11, 2024 10:23 AM AMBULATORY - NONE [facility] Jun 05, 2024 10:30 AM AMBULATORY - SURGERY [facility] Jun 05, 2024 01:00 PM AMBULATORY - SURGERY [facility] Jun 11, 2024 09:00 AM AMBULATORY - SURGERY [facility] Jul 05, 2024 10:00 AM AMBULATORY - MEDICINE [facility] Aug 10, 2024 03:00 PM AMBULATORY - MEDICINE [facility] Lab Results: +/- 30 days of the encounter This section includes the Chemistry and Hematology Lab Results on record with [facility] for the patient. Radiology Reports and Pathology Reports are provided separately, in subsequent sections. Lab Results This section contains the Chemistry/Hematology Results that were resulted 30 days before or 30 daysafter the date of the Encounter. Date/Time Source Result Type Result - Unit Interpretation Reference Range Specimen Type Comment May 17, 2024 08:[address] [facility] RENAL FUNCTION PANEL (AA) BLOOD Specimen Type : BLOOD No comment entered. Ordering Provider: DAMION JEAN Report Released Date/Time: Apr 27, 2024 04:46 PM Reporting Lab: [address] [id number] Performing Lab: [facility] [address] [facility] [id number] CREATININE 2.7 mg/dL H 0.6-1.3 UREA NITROGEN 49 mg/dL H 7-25 GLUCOSE 183 mg/dL H 74-109 SODIUM 138 mmol/L 136-145 POTASSIUM 4.7 mmol/L 3.5-5.1 CHLORIDE 107 mmol/L 98-107 CO2 25 mmol/L 21-31 CALCIUM 8.7 mg/dL 8.6-10.3 PO4 3.8 mg/dL 2.5-5 ALBUMIN 4.2 g/dL 3.5-5.7 EGFR 24 mL/min/{1.73_m2} Apr 26, 2024 11:[address] [facility] RENAL FUNCTION PANEL (AA) BLOOD Specimen Type : BLOOD No comment entered. Ordering Provider: DAMION JEAN Report Released Date/Time: Mar 30, 2024 06:19 PM Reporting Lab: [address] [phone] Performing Lab: [address] [id number] CREATININE 2.2 mg/dL H 0.6-1.3 UREA NITROGEN 38 mg/dL H 7-25 GLUCOSE 165 mg/dL H 74-109 SODIUM 138 mmol/L 136-145 POTASSIUM 4.0 mmol/L 3.5-5.1 CHLORIDE 108 mmol/L H 98-107 CO2 23 mmol/L 21-31 CALCIUM 8.7 mg/dL 8.6-10.3 PO4 3.4 mg/dL 2.5-5 ALBUMIN 3.9 g/dL 3.5-5.7 EGFR 31 mL/min/{1.73_m2} Encounter Notes: All associated encounter notes This section contains the clinical notes associated to the Encounter. 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 Moderate care coordination may include: -assistance with navigation -scheduling -post-appointment follow-up -monitoring and coordination of preventative services Recommended frequency of contact: monthly to quarterly Plan: [facility] to facilitate processing/scheduling of Community Care referral with in-network provider. Follow up by requesting and attaching visit notes for [facility] requesting provider review of community care treatment and recommendations. /homar/ VIKTORIYA LAST Community Care RN Signed: 05/01/2024 12:10 05/24/2024 ADDENDUM STATUS: COMPLETED A record was received related to the patient's recent community care eye clinic consult. Record received was dated 05/11/24. Please see record in [facility] for full/additional details. Diagnosis: Combined Forms of Age-Related Cataract,Bilateral(ICD-10-C M H25.813) Impression/Plan: Posterior Subcapsular Polar Age-Related Cataract OD > OS. The patient feels that the cataract is significantly impacting daily activities and has elected cataract surgery. Upcoming appts: will cancel scheduled appts as he has opted to receive this care at [facility]. Care with this clinic on an as needed basis. [facility]. Community Provider information: [facility] [id number] Ophthalmology [address] [place] [address] O:[phone] F:[phone] Referral Information: has opted to have cataract surgery at [facility] and is scheduled for appointment in June. Referral Number: [id number] ICN: [id number] Referral Issue Date: 2024-05-01 Expiration Date: 2025-05-18 First Appointment Date: 2024-05-11 PCP/Ordering provider acknowledged to receipt of uploaded record. /homar/ VIKTORIYA LAST Community Care RN Signed: 05/24/2024 12:[address] [facility]
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
--- OUTSIDE RECORDS SUMMARY | 2024-06-05 09:00 | XMS_ITS | Encounter Summary ---
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 Name Role Phone SUHAIL HOWARD Primary Care [...] PART B Oct 07, 2017 PART B [id number] MAURY VILLALPANDO PATIENT MEDICARE (WNR) MEDICARE (M) PART A Oct 07, 2017 PART A [id number] [facility] [id number] MAURY VILLALPANDO PATIENT MEDICARE (WNR) MEDICARE (M) PART A Oct 07, 2017 PART A [id number] MAURY VILLALPANDO PATIENT MEDICARE (WNR) MEDICARE (M) PART B Oct 07, 2017 PART B [id number] [phone] MAURY VILLALPANDO PATIENT MEDICARE (WNR) MEDICARE (M) PART B Oct 07, 2017 PART B [id number] [facility] MAURY VILLALPANDO PATIENT MEDICARE (WNR) MEDICARE (M) PART A Oct 07, 2017 PART A [id number] MAURY VILLALPANDO PATIENT [facility] FAMIL Y LORETA NIES May 09, 2020 [id number] MAURY VILLALPANDO PATIENT [facility] C[facility] FMILY OF LORETA NI May 09, 2020 [id number] MAURY VILLALPANDO PATIENT Selected Encounter This section includes the information on record at [place] for the Encounter. Date/Time Encounter Type Encounter Description Reason Provider Source Jun 05, 2024 01:00 PM OFFICE O/P EST MOD 30 MIN OPHTHALMOLOGY ICD-10-CM Z01.818 Encounter for other preprocedural examination CATHLEEN MALONE Jann Encounter Template Text not used by [place] Assessments - Encounter Diagnoses This section includes the primary and secondary diagnoses documented for the Encounter. Date/Time Primary/Secondary Diagnosis Diagnosis Name Provider Source Jul 30, 2024 11:51 AM PRIMARY Encounter for other preprocedural examination MARCOS MALONE [facility] Plan of Treatment: Future Appointments (+ 6 months) and Future Tests (+/- 45 days) The Plan of Treatment section includes future care activities for the patient from all [place] treatmentfacilities. This section includes future appointments and future orders which are active, pending or scheduled. Future Appointments This section includes appointments that were scheduled to occur 6 months from the date of the Encounter, up to a maximum of 20 appointments. The data comes from all [place] treatment facilities. Appointment Date/Time Appointment Type Appointme nt Facility Name Jun 11, 2024 09:00 AM AMBULATORY - SURGERY [facility] Jul 05, 2024 10:00 AM AMBULATORY - MEDICINE [facility] Aug 10, 2024 03:00 PM AMBULATORY - MEDICINE [facility] Nov 15, 2024 09:00 AM AMBULATORY - MEDICINE [facility] Lab Results: +/- 30 days of the encounter This section includes the Chemistry and Hematology Lab Results on record with [place] for the patient. Radiology Reports and Pathology Reports are provided separately, in subsequent sections. Lab Results This section contains the Chemistry/Hematology Results that were resulted 30 days before or 30 daysafter the date of the Encounter. Date/Time Source Result Type Result - Unit Interpretation Reference Range Specimen Type Comment Jun 13, 2024 10:50 AM [facility] FERRITIN BLOOD Specimen Type: BLOOD No comment entered. Ordering Provider: DAMION JEAN Report Released Date/Time: Feb 16, 2024 11:18 AM Reporting Lab: [address] [address] Performing Lab: [address] [address] FERRITIN 36.9 ng/mL 23.9-336.2 Jun 13, 2024 10:50 AM [facility] IRON/TIBC/FERR BLOOD Specimen Type: BLOOD No comment entered. Ordering Provider: DAMION JEAN Report Released Date/Time: Feb 16, 2024 11:18 AM Reporting Lab: [address] [address] Performing Lab: [address] [address] IRON 62 ug/dL 50-212 TIBC 358 ug/dL 240-450 FERRITIN 36.9 ng/mL 23.9-336.2 TRANSFERRIN 256 mg/dL 203-362 Jun 13, 2024 10:50 AM [facility] PTH (INTACT) BLOOD Specimen Type: BLOOD No comment entered. Ordering Provider: DAMION JEAN Report Released Date/Time: Feb 16, 2024 11:18 AM Reporting Lab: [address] [address] Performing Lab: [address] [address] PTH (INTACT) 83.7 pg/mL 12.0-88.0 Jun 13, 2024 10:50 AM [facility] TOTAL 25-HYDROXY VITAMIN D BLOOD Specimen Typ e: BLOOD No comment entered. Ordering Provider: DAMION JEAN Report Released Date/Time: Feb 16, 2024 11:18 AM Reporting Lab: [address] [address] Performing Lab: [address] [address] TOTAL 25-HYDROXY VITAMIN D 47.4 ng/mL 30 -100 Jun 13, 2024 10:50 AM [facility] MICROALBUMIN URINE PANEL,RANDOM URINE,RANDOM Specime n Type: URINE,RANDOM No comment entered. Ordering Provider: DAMION JEAN Report Released Date/Time: Feb 16, 2024 11:18 AM Reporting Lab: [facility] [address] [place] [address] Performing Lab: [address] [address] CREATININE 91 mg/dL MICROALBUMIN,RANDOM 48.1 mg/dL MICRO/CREAT RATIO 528.6 mg/g Jun 13, 2024 10:50 AM [facility] MAGNESIUM BLOOD Specimen Type: BLOOD No comment entered. Ordering Provider: DAMION JEAN Report Released Date/Time: Feb 16, 2024 11:18 AM Reporting Lab: [facility] [address] [facility] [address] Performing Lab: [facility] [address] [facility] [address] MAGNESIUM 2.0 mg/dL 1.9-2.7 Jun 13, 2024 10:50 AM [facility] RENAL FUNCTION PANEL (AA) BLOOD Specimen Type : BLOOD No comment entered. Ordering Provider: DAMION JEAN Report Released Date/Time: Feb 16, 2024 11:18 AM Reporting Lab: [facility] [address] [facility] [address] Performing Lab: [facility] [address] [facility] [address] CREATININE 2.5 mg/dL H 0.6-1.3 UREA NITROGEN 43 mg/dL H 7-25 GLUCOSE 129 mg/dL H 74-109 SODIUM 138 mmol/L 136-145 POTASSIUM 4.9 mmol/L 3.5-5.1 CHLORIDE 109 mmol/L H 98-107 CO2 22 mmol/L 21-31 CALCIUM 9.4 mg/dL 8.6-10.3 PO4 4.3 mg/dL 2.5-5 ALBUMIN 4.3 g/dL 3.5-5.7 EGFR 27 mL/min/{1.73_m2} Jun 13, 2024 10:50 AM [facility] HGB A1C (with eAG) BLOOD Specimen Ty pe: BLOOD No comment entered. Ordering Provider: SUHAIL HOWARD MD Report Released Date/Time: Mar 05, 2024 09:21 AM Reporting Lab: [facility] [address] [facility] [address] Performing Lab: [facility] [address] [facility] [address] HGB A1C 6.0 4.0-6.0 ESTIMATE AVG GLUCOSE 126 mg/dL Jun 13, 2024 10:50 AM [facility] CBC WITH DIFFERENTIAL BLOOD Specimen Type: BL OOD No comment entered. Ordering Provider: DAMION JEAN Report Released Date/Time: Feb 16, 2024 11:18 AM Reporting Lab: [facility] [address] [facility] [address] Performing Lab: [facility] [address] [facility] [address] WBC 6.47 10*3/uL 4.00-11.00 RBC 4.96 10*6/uL [...] 10*3/uL 0.000-0.012 Jun 05, 2024 02:16 PM [facility] BASIC METABOLIC PANEL BLOOD Specimen Type: BL OOD No comment entered. Ordering Provider: MARCOS MALONE Report Released Date/Time: Jun 05, 2024 12:59 PM Reporting Lab: [address] [address] Performing Lab: [address] [address] CREATININE 2.3 mg/dL H 0.6-1.3 UREA NITROGEN 41 mg/dL H 7-25 GLUCOSE 87 mg/dL 74-109 SODIUM 136 mmol/L 136-145 POTASSIUM 4.8 mmol/L 3.5-5.1 CHLORIDE 107 mmol/L 98-107 CO2 23 mmol/L 21-31 CALCIUM 9.1 mg/dL 8.6-10.3 EGFR 30 mL/min/{1.73_m2} Jun 05, 2024 02:16 PM [facility] CBC W/O DIFF. BLOOD Specimen Type: BLOOD No comment entered. Ordering Provider: MARCOS MALONE Report Released Date/Time: Jun 05, 2024 12:59 PM Reporting Lab: [address] [address] Performing Lab: [place] [id number] WBC 7.16 10*3/uL 4.00-11.00 RBC 4.85 10*6/uL 4.10-5.80 HGB 13.6 g/dL 12.1-17.2 HCT 41.3 38.0-51.0 MCV 85.2 fL 80.0-100.0 MCH 28.0 pg 26.0-32.0 MCHC 32.9 g/dL 32.0-37.5 PLATELET 151 10*3/uL 130-400 MPV 10.3 fL 8.9-12.7 RDW-CV 13.8 11.5-14.5 Jun 05, 2024 02:16 PM [facility] MISCELLANEOUS BLOOD Specimen Type: BLOOD [...] confirmed by repeat testing. According to the [place] [employer], the target HbA1C goal for [...] Jun 05, 2024 03:07 PM Reporting Lab: [facility] [address] [facility] [address] Performing Lab: Formerly named [facility] Dept of Pathology [facility] [phone] MISCELLANEOUS comment May 17, 2024 08:43 AM [facility] RENAL FUNCTION PANEL (AA) BLOOD Specimen Type : BLOOD No comment entered. Ordering Provider: DAMION JEAN Report Released Date/Time: Apr 27, 2024 04:46 PM Reporting Lab: [facility] [address] [facility] [address] Performing Lab: [facility] [address] [facility] [address] CREATININE 2.7 mg/dL H 0.6-1.3 UREA NITROGEN [...] 05, 2024 12:53 PM 52 137/80 18 [facility] Encounter Notes: All associated encounter notes This section contains the clinical notes associated to the Encounter. Date/Time Encounter Note(s) Provider Source Jun 05, 2024 01:03 PM OPHTHALMOLOGY PRE OPERATIVE E & M NOTE: LOCAL TITLE: PREOPERATIVE OPHTHALMOLOGY HISTORY & PHYSICAL EXAM STANDARD TITLE: OPHTHALMOLOGY PRE OPERATIVE E & M NOTE DATE OF NOTE: JUN 05, 2024@13:03 ENTRY DATE: JUN 05, 2024@13:03:39 AUTHOR: MARCOS MALONE EXP COSIGNER: URGENCY: STATUS: COMPLETED Routine eye surgery preop: Patient is here for assessment of medical status prior to planned ophthalmology procedure and associated anesthesia. cataract removal and lens replacement on 06/11/2024 PERTINENT MEDICAL HISTORY: Yes: Diabetes mellitus Yes: Coronary artery disease or congestive heart failure PMX: HTN GERD OA-knees, hands, back dm-2 diagnosed about 12 years ago tinnitus sleep apnea cad SOCIAL: TOB: no ETHOH: rare ILLEGAL/REC DRUGS: none OCCUPATION: retired, [employer] MARITAL STATUS: , lives with Service Branch Service # Entered Discharge [employer] [id number] [birth year] 14, [birth year] HONORABLEMARITAL STATUSThe OBJECT was NOT found...Contact IRM. FHX: MOTHER: , cva FATHER: , heart disease SIBS: brother, CAD, DM REVIEW OF SYMPTOMS: Yes: diabetic blood sugars under control Yes: free of chest pain or chest pain symptoms stable Yes: able to lay down for procedure Yes: denies recent heavy alcohol use Yes: denies history of allergy to latex or surgical tape Yes: denies history or symptoms of bleeding abnormalities Yes: denies loose teeth denture on the top Exercise tolerance:Fair/no cp or sob with exertion ALLERGIES: ISOSORBIDE No Remote Allergy/ADR Data available for this patient MEDICATIONS: Active Outpatient Medications (including Supplies): ACCU-CHEK GUIDE (GLUCOSE) TEST STRIP USE 1 STRIP MISC ACTIVE DIRECTED APIXABAN 5MG TAB TAKE ONE TABLET BY MOUTH TWICE A DAY TO ACTIVE TREAT OR PREVENT CLOT Indication: FOR STROKE PREVENTION ATORVASTATIN CALCIUM 40MG TAB TAKE ONE TABLET BY MOUTH ACTIVE (S) ONCE DAILY Indication: FOR CHOLESTEROL CITALOPRAM HYDROBROMIDE 20MG TAB TAKE ONE TABLET BY MOUTH ACTIVE ONCE DAILY Indication: FOR MOOD EMPAGLIFLOZIN 25MG TAB TAKE ONE-HALF TABLET BY MOUTH ONCE ACTIVE DAILY Indication: FOR DIABETES FINASTERIDE 5MG TAB TAKE ONE TABLET BY MOUTH ONCE DAILY ACTIVE FOR PROSTATE (NOTE: WOMEN WHO ARE, OR MAY BECOME, , SHOULD NOT HANDLE CRUSHED OR BROKEN TABLETS) Indication: FOR ENLARGED PROSTATE GABAPENTIN 400MG CAP TAKE ONE CAPSULE BY MOUTH TWICE A DAY ACTIVE IN THE EVENING AND AT BEDTIME Indication: FOR NERVE PAIN GLUCOSE SENSOR FREESTYLE LAZARO 3 PLUS USE 1 SENSOR ACTIVE DIRECTED EVERY 15 DAYS FOR GLUCOSE MONITORING FOR SENSORS THAT FAIL OR FALL OFF EARLY, CONTACT THE PHARM TECH FOR REPLACEMENT Indication: DIABETES INSULIN,GLARGINE-YFGN 100UNIT/ML PEN 3ML INJECT 20 UNITS ACTIVE UNDER THE SKIN ONCE DAILY DISCARD PENS 28 DAYS AFTER FIRST USE Indication: FOR DIABETES LISINOPRIL 40MG TAB TAKE ONE TABLET BY MOUTH ONCE DAILY ACTIVE Indication: TO PROTECT KIDNEYS METOPROLOL SUCCINATE 50MG SA TAB TAKE ONE TABLET BY MOUTH ACTIVE TWICE A DAY FOR HEART Indication: FOR BLOOD PRESSURE NEEDLE,PEN 31G,5MM USE 1 NEEDLE UNDER THE SKIN DIRECTED ACTIVE NITROGLYCERIN 0.4MG SL TAB DISSOLVE ONE TABLET UNDER THE ACTIVE TONGUE NEEDED FOR CHEST PAIN. IF NO IMPROVEMENT AFTER FIRST DOSE CALL 911. MAY TAKE ADDITIONAL DOSES 5 MINUTES APART. PANTOPRAZOLE NA 40MG EC TAB TAKE ONE TABLET BY MOUTH TWICE ACTIVE A DAY IN THE MORNING AND AT NOON 30 MINUTES BEFORE A MEAL Indication: FOR HEARTBURN RANOLAZINE 500MG SA TAB TAKE ONE TABLET BY MOUTH TWICE A ACTIVE DAY FOR CHEST PAIN Indication: FOR HEART RHYTHM SEMAGLUTIDE 0.25MG/0.375ML INJ PEN 3ML INJECT 0.5MG UNDER ACTIVE THE SKIN ONCE EVERY WEEK REPLACES LIRAGLUTIDE Indication: FOR DIABETES SPIRONOLACTONE 25MG TAB TAKE ONE TABLET BY MOUTH EVERY DAY ACTIVE Indication: FOR BLOOD PRESSURE TAMSULOSIN HCL 0.4MG CAP TAKE ONE CAPSULE BY MOUTH EVERY ACTIVE EVENING FOR PROSTATE (TAKE 30 MINUTES AFTER THE SAME MEAL EACH DAY) Indication: FOR URINATION TRANSPARENT DRESSING 2 3/8IN X 2 3/4IN APPLY 1 DRESSING TO ACTIVE SKIN NEEDED Indication: TO SECURE GLUCOSE SENSOR Non-VA CHOLECALCIF 25MCG (D3-1,000UNIT) TAB 2000UNIT MOUTH ACTIVE 20 Total Medications No Active Remote Medications for this patient PHYSICAL EXAMINATION:s1s2 regular/lungs cta/nad/alert and oriented x4/no edema VITAL SIGNS: BP: 137/80 (06/05/2024 12:53) heart rate: 52 (06/05/2024 12:53) weight: 197.98 lb [89.80 kg] (03/05/2024 08:56) BMI: BODY MASS INDEX - NO HEIGHTS FOUND AIRWAY EXAMINATION: normal mouth opening >3cm. Chin-neck distance >3finger breaths. EKG: abnormal PREOPERATIVE ASSESSMENT: cad s/p stent no cp or sob with exertion dm type II glucose 87 hgba1c pending depression no suic/homic ideations giovani uses cpap gerd controlled on meds htn controlled on meds cki follows nephrology 2.3 ASA Risk Class: III No further workup recommended prior to low risk outpatient surgery. Patient is medically stable or with maximum management and is assessed as appropriate for ophthalmological procedure and associated anesthesia. 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 Time spent in reviewing records, care coordination counseling and in medical decision making 35 min Time spent in reviewing records, care coordination counseling and in medical decision making 35 min /homar/ JOSE ALEJANDRO CORBETT Nurse Practitioner Signed: 06/05/2024 15:04 MARCOS MALONE [facility]
--- OUTSIDE RECORDS SUMMARY | 2024-06-13 23:40 | XMS_ITS | Encounter Summary ---
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 Name Role Phone SUHAIL HOWARD Primary Care [...] PART B Oct 07, 2017 PART B [id number] [facility] [phone] MAURY VILLALPANDO PATIENT MEDICARE (WNR) MEDICARE (M) PART A Oct 07, 2017 PART A [id number] [facility] [id number] MAURY VILLALPANDO PATIENT MEDICARE (WNR) MEDICARE (M) PART A Oct 07, 2017 PART A [id number] MAURY VILLALPANDO PATIENT MEDICARE (WNR) MEDICARE (M) PART B Oct 07, 2017 PART B [id number] MAURY VILLALPANDO PATIENT MEDICARE (WNR) MEDICARE (M) PART B Oct 07, 2017 PART B [id number] [facility] MAURY VILLALPANDO PATIENT MEDICARE (WNR) MEDICARE (M) PART A Oct 07, 2017 PART A [id number] MAURY VILLALPANDO PATIENT [facility] FAMIL Y LORETA NIES May 09, 2020 [id number] MAURY VILLALPANDO PATIENT [facility] FMILY OF LORETA NI May 09, 2020 [id number] [phone] MAURY VILLALPANDO PATIENT Selected Encounter This section includes the information on record at [place] for the Encounter. Date/Time Encounter Type Encounter Description Reason Provider Source Jun 14, 2024 03:40 AM Outpatient Encounter [facility] Encounter Template Text not used by [place] Plan of Treatment: Future Appointments (+ 6 months) and Future Tests (+/- 45 days) The Plan of Treatment section includes future care activities for the patient from all [place] treatmentfacilities. This section includes future appointments and future orders which are active, pending or scheduled. Future Appointments This section includes appointments that were scheduled to occur 6 months from the date of the Encounter, up to a maximum of 20 appointments. The data comes from all [place] treatment facilities. Appointment Date/Time Appointment Type Appointme nt Facility Name Jul 05, 2024 10:00 AM AMBULATORY - MEDICINE [facility] Aug 10, 2024 03:00 PM AMBULATORY - MEDICINE [facility] Nov 15, 2024 09:00 AM AMBULATORY - MEDICINE [facility] Lab Results: +/- 30 days of the encounter This section includes the Chemistry and Hematology Lab Results on record with [place] for the patient. Radiology Reports and Pathology Reports are provided separately, in subsequent sections. Lab Results This section contains the Chemistry/Hematology Results that were resulted 30 days before or 30 daysafter the date of the Encounter. Date/Time Source Result Type Result - Unit Interpretation Reference Range Specimen Type Comment Jun 13, 2024 10:50 AM [facility] FERRITIN BLOOD Specimen Type: BLOOD No comment entered. Ordering Provider: DAMION JEAN Report Released Date/Time: Feb 16, 2024 11:18 AM Reporting Lab: [address] [address] Performing Lab: [address] [address] FERRITIN 36.9 ng/mL 23.9-336.2 Jun 13, 2024 10:50 AM [facility] IRON/TIBC/FERR BLOOD Specimen Type: BLOOD No comment entered. Ordering Provider: DAMION JEAN Report Released Date/Time: Feb 16, 2024 11:18 AM Reporting Lab: [address] [address] Performing Lab: [address] [address] IRON 62 ug/dL 50-212 TIBC 358 ug/dL 240-450 FERRITIN 36.9 ng/mL 23.9-336.2 TRANSFERRIN 256 mg/dL 203-362 Jun 13, 2024 10:50 AM [facility] TOTAL 25-HYDROXY VITAMIN D BLOOD Specimen Typ e: BLOOD No comment entered. Ordering Provider: DAMION JEAN Report Released Date/Time: Feb 16, 2024 11:18 AM Reporting Lab: [address] [address] Performing Lab: [address] [address] TOTAL 25-HYDROXY VITAMIN D 47.4 ng/mL 30 -100 Jun 13, 2024 10:50 AM [facility] PTH (INTACT) BLOOD Specimen Type: BLOOD No comment entered. Ordering Provider: DAMION JEAN Report Released Date/Time: Feb 16, 2024 11:18 AM Reporting Lab: [address] [address] Performing Lab: [address] [address] PTH (INTACT) 83.7 pg/mL 12.0-88.0 Jun 13, 2024 10:50 AM [facility] MICROALBUMIN URINE PANEL,RANDOM URINE,RANDOM Specime n Type: URINE,RANDOM No comment entered. Ordering Provider: DAMION JEAN Report Released Date/Time: Feb 16, 2024 11:18 AM Reporting Lab: [address] [address] Performing Lab: [address] [address] CREATININE 91 mg/dL MICROALBUMIN,RANDOM 48.1 mg/dL MICRO/CREAT RATIO 528.6 mg/g Jun 13, 2024 10:50 AM [facility] MAGNESIUM BLOOD Specimen Type: BLOOD No comment entered. Ordering Provider: DAMION JEAN Report Released Date/Time: Feb 16, 2024 11:18 AM Reporting Lab: [address] [facility] [address] Performing Lab: [address] [facility] [address] MAGNESIUM 2.0 mg/dL 1.9-2.7 Jun 13, 2024 10:50 AM [facility] RENAL FUNCTION PANEL (AA) BLOOD Specimen Type : BLOOD No comment entered. Ordering Provider: DAMION JEAN Report Released Date/Time: Feb 16, 2024 11:18 AM Reporting Lab: [address] [facility] [address] Performing Lab: [address] [facility] [address] CREATININE 2.5 mg/dL H 0.6-1.3 UREA NITROGEN 43 mg/dL H 7-25 GLUCOSE 129 mg/dL H 74-109 SODIUM 138 mmol/L 136-145 POTASSIUM 4.9 mmol/L 3.5-5.1 CHLORIDE 109 mmol/L H 98-107 CO2 22 mmol/L 21-31 CALCIUM 9.4 mg/dL 8.6-10.3 PO4 4.3 mg/dL 2.5-5 ALBUMIN 4.3 g/dL 3.5-5.7 EGFR 27 mL/min/{1.73_m2} Jun 13, 2024 10:50 AM [facility] HGB A1C (with eAG) BLOOD Specimen Ty pe: BLOOD No comment entered. Ordering Provider: SUHAIL HOWARD MD Report Released Date/Time: Mar 05, 2024 09:21 AM Reporting Lab: [address] [facility] [address] Performing Lab: [address] [address] HGB A1C 6.0 4.0-6.0 ESTIMATE AVG GLUCOSE 126 mg/dL Jun 13, 2024 10:50 AM [facility] CBC WITH DIFFERENTIAL BLOOD Specimen Type: BL OOD No comment entered. Ordering Provider: BEAMISH,DAMION Report Released Date/Time: Feb 16, 2024 11:18 AM Reporting Lab: [facility] [address] [facility] [address] Performing Lab: [facility] [address] [facility] [facility] [address] WBC 6.47 10*3/uL 4.00-11.00 RBC 4.96 10*6/uL [...] 10*3/uL 0.000-0.012 Jun 05, 2024 02:16 PM [facility] BASIC METABOLIC PANEL BLOOD Specimen Type: BL OOD No comment entered. Ordering Provider: MARCOS MALONE Report Released Date/Time: Jun 05, 2024 12:59 PM Reporting Lab: [address] [address] Performing Lab: [address] [address] CREATININE 2.3 mg/dL H 0.6-1.3 UREA NITROGEN 41 mg/dL H 7-25 GLUCOSE 87 mg/dL 74-109 SODIUM 136 mmol/L 136-145 POTASSIUM 4.8 mmol/L 3.5-5.1 CHLORIDE 107 mmol/L 98-107 CO2 23 mmol/L 21-31 CALCIUM 9.1 mg/dL 8.6-10.3 EGFR 30 mL/min/{1.73_m2} Jun 05, 2024 02:16 PM [facility] CBC W/O DIFF. BLOOD Specimen Type: BLOOD No comment entered. Ordering Provider: MARCOS MALONE Report Released Date/Time: Jun 05, 2024 12:59 PM Reporting Lab: [address] [address] Performing Lab: [address] [address] WBC 7.16 10*3/uL 4.00-11.00 RBC 4.85 10*6/uL 4.10-5.80 HGB 13.6 g/dL 12.1-17.2 HCT 41.3 38.0-51.0 MCV 85.2 fL 80.0-100.0 MCH 28.0 pg 26.0-32.0 MCHC 32.9 g/dL 32.0-37.5 PLATELET 151 10*3/uL 130-400 MPV 10.3 fL 8.9-12.7 RDW-CV 13.8 11.5-14.5 Jun 05, 2024 02:16 PM [facility] MISCELLANEOUS BLOOD Specimen Type: BLOOD Comment: [...] confirmed by repeat testing. According to the [place] [employer], the target HbA1C goal for [...] Jun 05, 2024 03:07 PM Reporting Lab: [facility] [address] [facility] [address] Performing Lab: [facility] Dept of Pathology [facility] [address] MISCELLANEOUS comment May 17, 2024 08:43 AM [facility] RENAL FUNCTION PANEL (AA) BLOOD Specimen Type : BLOOD No comment entered. Ordering Provider: DAMION JEAN Report Released Date/Time: Apr 27, 2024 04:46 PM Reporting Lab: [facility] [address] [facility] [address] Performing Lab: [facility] [address] [facility] [address] CREATININE 2.7 mg/dL H 0.6-1.3 UREA NITROGEN 49 mg/dL H 7-25 GLUCOSE 183 mg/dL H 74-109 SODIUM 138 mmol/L 136-145 POTASSIUM 4.7 mmol/L 3.5-5.1 CHLORIDE 107 mmol/L 98-107 CO2 25 mmol/L 21-31 CALCIUM 8.7 mg/dL 8.6-10.3 PO4 3.8 mg/dL 2.5-5 ALBUMIN 4.2 g/dL 3.5-5.7 EGFR 24 mL/min/{1.73_m2}
--- OUTSIDE RECORDS SUMMARY | 2024-07-05 06:00 | XMS_ITS | Encounter Summary ---
Author Name [facility] [place] [facility] Address [address] [place] [address] Care Team Providers Care Junior Programmer Analyst Name Role Phone SUHAIL HOWARD Primary Care [...] PART B Oct 07, 2017 PART B [id number] MAURY VILLALPANDO PATIENT MEDICARE (WNR) MEDICARE (M) PART A Oct 07, 2017 PART A [id number] [facility] [phone] MAURY VILLALPANDO PATIENT MEDICARE (WNR) MEDICARE (M) PART A Oct 07, 2017 PART A [id number] MAURY VILLALPANDO PATIENT MEDICARE (WNR) MEDICARE (M) PART B Oct 07, 2017 PART B [id number] MAURY VILLALPANDO PATIENT MEDICARE (WNR) MEDICARE (M) PART B Oct 07, 2017 PART B [id number] [facility] [phone] MAURY VILLALPANDO PATIENT MEDICARE (WNR) MEDICARE (M) PART A Oct 07, 2017 PART A [id number] MAURY VILLALPANDO PATIENT [facility] FAM[facility] [place]ORETA NIES May 09, 2020 [id number] [phone] MAURY VILLALPANDO PATIENT [facility] FMILY OF [place] NI May 09, 2020 [id number] [phone] MAURY VILLALPANDO PATIENT Selected Encounter This section includes the information on record at [place] for the Encounter. Date/Time Encounter Type Encounter Description Reason Provider Source Jul 05, 2024 10:00 AM OFFICE O/P EST MOD 30 MIN RENAL/NEPHROL(EXCE PT DIALYSIS) ICD-10-CM N18.32 Chronic kidney disease, stage 3b MARVEL JEAN Jann Encounter Template Text not used by [place] Assessments - Encounter Diagnoses This section includes the primary and secondary diagnoses documented for the Encounter. Date/Time Primary/Secondary Diagnosis Diagnosis Name Provider Source Jul 05, 2024 10:57 AM PRIMARY Chronic kidney disease, stage 3b MARVEL JEAN [facility] Jul 05, 2024 10:57 AM SECONDARY Essential (primary) [facility] Jul 05, 2024 10:57 AM SECONDARY Proteinuria, unspecified [facility] Jul 05, 2024 10:57 AM SECONDARY Type 2 diabetes mellitus w diabetic chronic kidney disease [facility] Plan of Treatment: Future Appointments (+ 6 months) and Future Tests (+/- 45 days) The Plan of Treatment section includes future care activities for the patient from all [place] treatmentfacilities. This section includes future appointments and future orders which are active, pending or scheduled. Future Appointments This section includes appointments that were scheduled to occur 6 months from the date of the Encounter, up to a maximum of 20 appointments. The data comes from all [place] treatment facilities. Appointment Date/Time Appointment Type Appointme nt Facility Name Aug 10, 2024 03:00 PM AMBULATORY - MEDICINE [facility] Nov 15, 2024 09:00 AM AMBULATORY - MEDICINE [facility] Lab Results: +/- 30 days of the encounter This section includes the Chemistry and Hematology Lab Results on record with [place] for the patient. Radiology Reports and Pathology Reports are provided separately, in subsequent sections. Lab Results This section contains the Chemistry/Hematology Results that were resulted 30 days before or 30 daysafter the date of the Encounter. Date/Time Source Result Type Result - Unit Interpretation Reference Range Specimen Type Comment Jun 13, 2024 10:50 AM [facility] FERRITIN BLOOD Specimen Type: BLOOD No comment entered. Ordering Provider: DAMION JEAN Report Released Date/Time: Feb 16, 2024 11:18 AM Reporting Lab: [address] [address] Performing Lab: [address] [address] FERRITIN 36.9 ng/mL 23.9-336.2 Jun 13, 2024 10:50 AM [facility] IRON/TIBC/FERR BLOOD Specimen Type: BLOOD No comment entered. Ordering Provider: DAIMON JEAN Report Released Date/Time: Feb 16, 2024 11:18 AM Reporting Lab: [address] [address] Performing Lab: [address] [address] IRON 62 ug/dL 50-212 TIBC 358 ug/dL 240-450 FERRITIN 36.9 ng/mL 23.9-336.2 TRANSFERRIN 256 mg/dL 203-362 Jun 13, 2024 10:50 AM [facility] PTH (INTACT) BLOOD Specimen Type: BLOOD No comment entered. Ordering Provider: DAMION JEAN Report Released Date/Time: Feb 16, 2024 11:18 AM Reporting Lab: [address] [address] Performing Lab: [address] [address] PTH (INTACT) 83.7 pg/mL 12.0-88.0 Jun 13, 2024 10:50 AM [facility] TOTAL 25-HYDROXY VITAMIN D BLOOD Specimen Typ e: BLOOD No comment entered. Ordering Provider: DAMION JEAN Report Released Date/Time: Feb 16, 2024 11:18 AM Reporting Lab: [address] [address] Performing Lab: [address] [address] TOTAL 25-HYDROXY VITAMIN D 47.4 ng/mL 30 -100 Jun 13, 2024 10:50 AM [facility] MAGNESIUM BLOOD Specimen Type: BLOOD No comment entered. Ordering Provider: DAMION JEAN Report Released Date/Time: Feb 16, 2024 11:18 AM Reporting Lab: [address] [facility] [address] Performing Lab: [facility] [address] [facility] [address] MAGNESIUM 2.0 mg/dL 1.9-2.7 Jun 13, 2024 10:50 AM [facility] HGB A1C (with eAG) BLOOD Specimen Ty pe: BLOOD No comment entered. Ordering Provider: SUHAIL HOWARD MD Report Released Date/Time: Mar 05, 2024 09:21 AM Reporting Lab: [address] [facility] [address] Performing Lab: [address] [facility] [address] HGB A1C 6.0 4.0-6.0 ESTIMATE AVG GLUCOSE 126 mg/dL Jun 13, 2024 10:50 AM [facility] RENAL FUNCTION PANEL (AA) BLOOD Specimen Type : BLOOD No comment entered. Ordering Provider: DAMION JEAN Report Released Date/Time: Feb 16, 2024 11:18 AM Reporting Lab: [address] [facility] [address] Performing Lab: [address] [facility] [address] CREATININE 2.5 mg/dL H 0.6-1.3 UREA NITROGEN 43 mg/dL H 7-25 GLUCOSE 129 mg/dL H 74-109 SODIUM 138 mmol/L 136-145 POTASSIUM 4.9 mmol/L 3.5-5.1 CHLORIDE 109 mmol/L H 98-107 CO2 22 mmol/L 21-31 CALCIUM 9.4 mg/dL 8.6-10.3 PO4 4.3 mg/dL 2.5-5 ALBUMIN 4.3 g/dL 3.5-5.7 EGFR 27 mL/min/{1.73_m2} Jun 13, 2024 10:50 AM [facility] MICROALBUMIN URINE PANEL,RANDOM URINE,RANDOM Specime n Type: URINE,RANDOM No comment entered. Ordering Provider: DAMION JEAN Report Released Date/Time: Feb 16, 2024 11:18 AM Reporting Lab: [address] [address] Performing Lab: [address] [address] CREATININE 91 mg/dL MICROALBUMIN,RANDOM 48.1 mg/dL MICRO/CREAT RATIO 528.6 mg/g Jun 13, 2024 10:50 AM [facility] CBC WITH DIFFERENTIAL BLOOD Specimen Type: BL OOD No comment entered. Ordering Provider: DAMION JEAN Report Released Date/Time: Feb 16, 2024 11:18 AM Reporting Lab: [facility] [address] [facility] [address] Performing Lab: [facility] [address] [facility] [address] WBC 6.47 10*3/uL 4.00-11.00 RBC 4.96 10*6/uL [...] Pain Height Weight Body Mass Index Source Jul 05, 2024 10:06 AM 97.7 65 108/72 96 0 204.59 31 [facility] Jul 05, 2024 10:04 AM 0 [facility] Encounter Notes: All associated encounter notes This section contains the clinical notes associated to the Encounter. Date/Time Encounter Note(s) Provider Source Oct 19, 2024 08:33 AM ADDENDUM: LOCAL TITLE: Addendum STANDARD TITLE: ADDENDUM DATE OF NOTE: OCT 19, 2024@08:33 ENTRY DATE: OCT 19, 2024@08:33:02 AUTHOR: THANH BRISCOE EXP COSIGNER: URGENCY: STATUS: COMPLETED called, possibly being discharged from [facility] today. Was admitted with vision issues, dehydration. Will have discharge summary [facility]. States he had cut down to 1/2 of meds as discussed with Dr. Jean when he was admitted. States he will need labs on discharge, will call when he is discharged. /homar/ THANH BRISCOE Registered Nurse Signed: 10/19/2024 08:36 Receipt Acknowledged By: 10/19/2024 16:27 /homar/ DAMION JEAN Attending Physician, Nephrology --- Original Document --- 07/05/24 NEPHROLOGY OUTPATIENT FOLLOW-UP: Nephrology Follow up HPI: Followed for CKD. PMH of HTN (2012) DM (2012), LUTS (private urologist), afib on [facility] referred for evaluation of CKD with A3 level proteinuria. EGFR varied within the G3a-b range since at at least 2016 range ~35-55. Unclear etiology of variability or if recent trends are NICHOLAS, progression, or just variability. His current 's previous was on dialysis LAST VISIT: 02/2024:stop axel resume lisinopril 10 mg daily labs [...] f/u due to non-optimization and advanced CKD. INTERVAL HISTORY: Checking BP at home daily, > 140 systolic: 110-140 with some in 90's rarely denies new lightheadedness/dizziness, sometimes when BP is low no new edema no orthopnea no new HUMPHRIES no new LUTS no NSAID use Medications specifically reviewed: lisinopril 40 mg daily metoprolol succinate 50 mg BID spironolactone 25 mg daily apixaban atorvastatin semaglutide empa glargine ranolazine gabapentin citalopram finasteride tamsulosin pantoprazole D3 Exam: nad regular HR no m/r clear lung soft ab no edema Labs: Reviewed in CPRS, of particular note: 06/13/2023 Cr 2.5, K 4.9, bicarb 22, EGFR 27, a1c 6 uacr 529 hgb 14 pth 83, D3 47 New Imaging: IMPRESSION: Stable CKD G3b/4 A3 due to DKD/HTN/CVD DETAILED RECOMMENDATIONS: 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 BP is widely variable with rare orthostatis. Discussed need to continue to moniotr closely and alert us if hypotension becomes more common, no change in meds above DM: Target A1C ~7 as tolerated without hypoglycemia. on max ACEi, MRA, glp1a, sglt2i. 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 had prior on HD. He wants to stay this side of the ground and would consider dialysis Follow up plan: no changes today. continue close BP monitoring given lability, alert me in interim if any concerns RTC 4 months, labs prior time spent 31 min /homar/ DAMION JEAN Attending Physician, Nephrology Signed: 07/05/2024 10:57 10/04/2024 ADDENDUM STATUS: COMPLETED called, experincing dizziness, lightheadedness, when he looks down, vision is spinning. Low BPS for the past several days. Also lost 12 lbs. Is keeping hydrated. States today BP 78/58. Previous days 74-114/50-74. Advised to go to local urgent care or ED and will followup with this process description writer tomorrow. /homar/ THANH BRISCOE Registered Nurse Signed: 10/04/2024 14:58 Receipt Acknowledged By: 10/05/2024 18:10 /homar/ DAMION JEAN Attending Physician, Nephrology 10/04/2024 15:14 /homar/ MICHELE MAX, RN, [facility] REGISTER[facility] NURSE 10/04/2024 16:13 /homar/ SUHAIL HOWARD MD Staff Physician, Commercial Escrow Assistant - [facility] 10/05/2024 ADDENDUM STATUS: COMPLETED Left VM to call this process description writer with updates on BPs and if he was seen in community ED or Urgent Care. /homar/ THANH BRISCOE Registered Nurse Signed: 10/05/2024 13:19 10/05/2024 ADDENDUM STATUS: COMPLETED f/u with pt. BP at ED and again today back to normal 120's systolic no LH. Etiology unclear as not significant changes prior to lower BP. Plan: in future if BP low cut lisinopril and spironolactone in half, if still low next day, hold and call me. Asked him to check back in with us again in about 2 weeks to see if there is recurrance. /homar/ DAMION JEAN Attending Physician, Nephrology Signed: 10/05/2024 18:20 Receipt Acknowledged By: 10/08/2024 06:57 /homar/ THANH BRISCOE Registered Nurse 10/18/2024 ADDENDUM STATUS: COMPLETED [place] left VM yesterday that he is admitted at [facility] in [place] with high potassium, hypotension and kidney issues. wanted Dr. Jean to be aware in case he wanted to followup. /homar/ THANH BRISCOE Registered Nurse Signed: 10/18/2024 08:46 Receipt Acknowledged By: 10/18/2024 17:22 /homar/ DAMION JEAN Attending Physician, Nephrology 10/18/2024 ADDENDUM STATUS: COMPLETED please ask him to let us know when he is discharged? did he hold the BP meds as we discussed in late September prior to his admission? I'll want a d/c summary. /homar/ DAMION JEAN Attending Physician, Nephrology Signed: 10/18/2024 17:24 Receipt Acknowledged By: 10/19/2024 08:26 /homar/ THANH BRISCOE Registered Nurse THANH BRISCOE [facility] Oct 18, 2024 05:23 PM ADDENDUM: LOCAL TITLE: Addendum STANDARD TITLE: ADDENDUM DATE OF NOTE: OCT 18, 2024@17:23:47 ENTRY DATE: OCT 18, 2024@17:23:48 AUTHOR: DAMION JEAN EXP COSIGNER: URGENCY: STATUS: COMPLETED please ask him to let us know when he is discharged? did he hold the BP meds as we discussed in late September prior to his admission? I'll want a d/c summary. /homar/ DAMION JEAN Attending Physician, Nephrology Signed: 10/18/2024 17:24 Receipt Acknowledged By: 10/19/2024 08:26 /homar/ THANH BRISCOE Registered Nurse --- Original Document --- 07/05/24 NEPHROLOGY OUTPATIENT FOLLOW-UP: Nephrology Follow up HPI: Followed for CKD. PMH of HTN (2012) DM (2012), LUTS (private urologist), afib on [facility] O[facility] referred for evaluation of CKD with A3 level proteinuria. EGFR varied within the G3a-b range since at at least 2016 range ~35-55. Unclear etiology of variability or if recent trends are NICHOLAS, progression, or just variability. His current 's previous was on dialysis LAST VISIT: 02/2024:stop axel resume lisinopril 10 mg daily labs [...] f/u due to non-optimization and advanced CKD. INTERVAL HISTORY: Checking BP at home daily, > 140 systolic: 110-140 with some in 90's rarely denies new lightheadedness/dizziness, sometimes when BP is low no new edema no orthopnea no new HUMPHRIES no new LUTS no NSAID use Medications specifically reviewed: lisinopril 40 mg daily metoprolol succinate 50 mg BID spironolactone 25 mg daily apixaban atorvastatin semaglutide empa glargine ranolazine gabapentin citalopram finasteride tamsulosin pantoprazole D3 Exam: nad regular HR no m/r clear lung soft ab no edema Labs: Reviewed in CPRS, of particular note: 06/13/2023 Cr 2.5, K 4.9, bicarb 22, EGFR 27, a1c 6 uacr 529 hgb 14 pth 83, D3 47 New Imaging: IMPRESSION: Stable CKD G3b/4 A3 due to DKD/HTN/CVD DETAILED RECOMMENDATIONS: 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 BP is widely variable with rare orthostatis. Discussed need to continue to moniotr closely and alert us if hypotension becomes more common, no change in meds above DM: Target A1C ~7 as tolerated without hypoglycemia. on max ACEi, MRA, glp1a, sglt2i. 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 had prior on HD. He wants to stay this side of the ground and would consider dialysis Follow up plan: no changes today. continue close BP monitoring given lability, alert me in interim if any concerns RTC 4 months, labs prior time spent 31 min /homar/ DAMION JEAN Attending Physician, Nephrology Signed: 07/05/2024 10:57 10/04/2024 ADDENDUM STATUS: COMPLETED called, experincing dizziness, lightheadedness, when he looks down, vision is spinning. Low BPS for the past several days. Also lost 12 lbs. Is keeping hydrated. States today BP 78/58. Previous days 74-114/50-74. Advised to go to local urgent care or ED and will followup with this process description writer tomorrow. /homar/ THANH BRISCOE Registered Nurse Signed: 10/04/2024 14:58 Receipt Acknowledged By: 10/05/2024 18:10 /homar/ DAMION JEAN Attending Physician, Nephrology 10/04/2024 15:14 /es/ MICHELE MAX, RN, [facility] REGISTERED NURSE 10/04/2024 16:13 /es/ SUHAIL HOWARD MD Staff Physician, Commercial Escrow Assistant - [facility] 10/05/2024 ADDENDUM STATUS: COMPLETED Left VM to call this process description writer with updates on BPs and if he was seen in community ED or Urgent Care. /homar/ THANH BRISCOE Registered Nurse Signed: 10/05/2024 13:19 10/05/2024 ADDENDUM STATUS: COMPLETED f/u with pt. BP at ED and again today back to normal 120's systolic no LH. Etiology unclear as not significant changes prior to lower BP. Plan: in future if BP low cut lisinopril and spironolactone in half, if still low next day, hold and call me. Asked him to check back in with us again in about 2 weeks to see if there is recurrance. /homar/ DAMION JEAN Attending Physician, Nephrology Signed: 10/05/2024 18:20 Receipt Acknowledged By: 10/08/2024 06:57 /homar/ THANH BRISCOE Registered Nurse 10/18/2024 ADDENDUM STATUS: COMPLETED left VM yesterday that he is admitted at [facility] in [place] with high potassium, hypotension and kidney issues. [place] wanted Dr. Jean to be aware in case he wanted to followup. /es/ THANH BRISCOE Registered Nurse Signed: 10/18/2024 08:46 Receipt Acknowledged By: 10/18/2024 17:22 /homar/ DAMION JEAN Attending Physician, NephDAMION Hilton [facility] Oct 18, 2024 08:43 AM ADDENDUM: LOCAL TITLE: Addendum STANDARD TITLE: ADDENDUM DATE OF NOTE: OCT 18, 2024@08:43:02 ENTRY DATE: OCT 18, 2024@08:43:03 AUTHOR: THANH BRISCOE EXP COSIGNER: URGENCY: STATUS: COMPLETED [place] left VM yesterday that he is admitted at [facility] in [place] with high potassium, hypotension and kidney issues. [place] wanted Dr. Jean to be aware in case he wanted to followup. /homar/ THANH BRISCOE Registered Nurse Signed: 10/18/2024 08:46 Receipt Acknowledged By: 10/18/2024 17:22 /homar/ DAMION JEAN Attending Physician, Nephrology --- Original Document --- 07/05/24 NEPHROLOGY OUTPATIENT FOLLOW-UP: Nephrology Follow up HPI: Followed for CKD. PMH of HTN (2012) DM (2012), LUTS (private urologist), afib on [facility] O[facility] referred for evaluation of CKD with A3 level proteinuria. EGFR varied within the G3a-b range since at at least 2017 range ~35-55. Unclear etiology of variability or if recent trends are NICHOLAS, progression, or just variability. His current 's previous was on dialysis LAST VISIT: 02/2024:stop axel resume lisinopril 10 mg daily labs [...] f/u due to non-optimization and advanced CKD. INTERVAL HISTORY: Checking BP at home daily, > 140 systolic: 110-140 with some in 90's rarely denies new lightheadedness/dizziness, sometimes when BP is low no new edema no orthopnea no new HUMPHRIES no new LUTS no NSAID use Medications specifically reviewed: lisinopril 40 mg daily metoprolol succinate 50 mg BID spironolactone 25 mg daily apixaban atorvastatin semaglutide empa glargine ranolazine gabapentin citalopram finasteride tamsulosin pantoprazole D3 Exam: nad regular HR no m/r clear lung soft ab no edema Labs: Reviewed in CPRS, of particular note: 06/13/2023 Cr 2.5, K 4.9, bicarb 22, EGFR 27, a1c 6 uacr 529 hgb 14 pth 83, D3 47 New Imaging: IMPRESSION: Stable CKD G3b/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 BP is widely variable with rare orthostatis. Discussed need to continue to moniotr closely and alert us if hypotension becomes more common, no change in meds above DM: Target A1C ~7 as tolerated without hypoglycemia. on max ACEi, MRA, glp1a, sglt2i. 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 had prior on HD. He wants to stay this side of the ground and would consider dialysis Follow up plan: no changes today. continue close BP monitoring given lability, alert me in interim if any concerns RTC 4 months, labs prior time spent 31 min /homar/ DAMION JEAN Attending Physician, Nephrology Signed: 07/05/2024 10:57 10/04/2024 ADDENDUM STATUS: COMPLETED called, experincing dizziness, lightheadedness, when he looks down, vision is spinning. Low BPS for the past several days. Also lost 12 lbs. Is keeping hydrated. States today BP 78/58. Previous days 74-114/50-74. Advised to go to local urgent care or ED and will followup with this process description writer tomorrow. /homar/ THANH BRISCOE Registered Nurse Signed: 10/04/2024 14:58 Receipt Acknowledged By: 10/05/2024 18:10 /homar/ DAMION JEAN Attending Physician, Nephrology 10/04/2024 15:14 /es/ PETER BRITT, GHAZALN, RN, [facility] NURSE 10/04/2024 16:13 /es/ SUHAIL HOWARD MD Staff Physician, Commercial Escrow Assistant - [facility] 10/05/2024 ADDENDUM STATUS: COMPLETED Left VM to call this process description writer with updates on BPs and if he was seen in community ED or Urgent Care. /homar/ THANH BRISCOE Registered Nurse Signed: 10/05/2024 13:19 10/05/2024 ADDENDUM STATUS: COMPLETED f/u with pt. BP at ED and again today back to normal 120's systolic no LH. Etiology unclear as not significant changes prior to lower BP. Plan: in future if BP low cut lisinopril and spironolactone in half, if still low next day, hold and call me. Asked him to check back in with us again in about 2 weeks to see if there is recurrance. /homar/ DAMION JEAN Attending Physician, Nephrology Signed: 10/05/2024 18:20 Receipt Acknowledged By: 10/08/2024 06:57 /homar/ THANH BRISCOE Registered Nurse THANH BRISCOE [facility] October 05, 2024 06:13 PM ADDENDUM: LOCAL TITLE: Addendum STANDARD TITLE: ADDENDUM DATE OF NOTE: OCTOBER 05, 2024@18:13:49 ENTRY DATE: OCTOBER 05, 2024@18:13:49 AUTHOR: DAMION JEAN EXP COSIGNER: URGENCY: STATUS: COMPLETED f/u with pt. BP at ED and again today back to normal 120's systolic no LH. Etiology unclear as not significant changes prior to lower BP. Plan: in future if BP low cut lisinopril and spironolactone in half, if still low next day, hold and call me. Asked him to check back in with us again in about 2 weeks to see if there is recurrance. /homar/ DAMION JEAN Attending Physician, Nephrology Signed: 10/05/2024 18:20 Receipt Acknowledged By: 10/08/2024 06:57 /homar/ THANH BRISCOE Registered Nurse --- Original Document --- 07/05/24 NEPHROLOGY OUTPATIENT FOLLOW-UP: Nephrology Follow up HPI: Followed for CKD. PMH of HTN (2012) DM (2012), LUTS (private urologist), afib on [facility] O[facility] referred for evaluation of CKD with A3 level proteinuria. EGFR varied within the G3a-b range since at at least 2017 range ~35-55. Unclear etiology of variability or if recent trends are NICHOLAS, progression, or just variability. His current 's previous was on dialysis LAST VISIT: 02/2024:stop axel resume lisinopril 10 mg daily labs [...] f/u due to non-optimization and advanced CKD. INTERVAL HISTORY: Checking BP at home daily, > 140 systolic: 110-140 with some in 90's rarely denies new lightheadedness/dizziness, sometimes when BP is low no new edema no orthopnea no new HUMPHRIES no new LUTS no NSAID use Medications specifically reviewed: lisinopril 40 mg daily metoprolol succinate 50 mg BID spironolactone 25 mg daily apixaban atorvastatin semaglutide empa glargine ranolazine gabapentin citalopram finasteride tamsulosin pantoprazole D3 Exam: nad regular HR no m/r clear lung soft ab no edema Labs: Reviewed in CPRS, of particular note: 06/13/2023 Cr 2.5, K 4.9, bicarb 22, EGFR 27, a1c 6 uacr 529 hgb 14 pth 83, D3 47 New Imaging: IMPRESSION: Stable CKD G3b/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 BP is widely variable with rare orthostatis. Discussed need to continue to moniotr closely and alert us if hypotension becomes more common, no change in meds above DM: Target A1C ~7 as tolerated without hypoglycemia. on max ACEi, MRA, glp1a, sglt2i. 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 had prior on HD. He wants to stay this side of the ground and would consider dialysis Follow up plan: no changes today. continue close BP monitoring given lability, alert me in interim if any concerns RTC 4 months, labs prior time spent 31 min /homar/ DAMION JEAN Attending Physician, Nephrology Signed: 07/05/2024 10:57 10/04/2024 ADDENDUM STATUS: COMPLETED called, experincing dizziness, lightheadedness, when he looks down, vision is spinning. Low BPS for the past several days. Also lost 12 lbs. Is keeping hydrated. States today BP 78/58. Previous days 74-114/50-74. Advised to go to local urgent care or ED and will followup with this process description writer tomorrow. /homar/ THANH BRISCOE Registered Nurse Signed: 10/04/2024 14:58 Receipt Acknowledged By: 10/05/2024 18:10 /homar/ DAMION JEAN Attending Physician, Nephrology 10/04/2024 15:14 /es/ GHAZAL MAXN, RN, RAC-CT REGISTERED NURSE 10/04/2024 16:13 /es/ SUHAIL HOWARD MD Staff Physician, Commercial Escrow Assistant - [facility] 10/05/2024 ADDENDUM STATUS: COMPLETED Left VM to call this process description writer with updates on BPs and if he was seen in community ED or Urgent Care. /es/ THANH BRISCOE Registered Nurse Signed: 10/05/2024 13:19 DAMION JEAN [facility] October 04, 2024 02:54 PM ADDENDUM: LOCAL TITLE: Addendum STANDARD TITLE: ADDENDUM DATE OF NOTE: OCTOBER 04, 2024@14:54:34 ENTRY DATE: OCTOBER 04, 2024@14:54:35 AUTHOR: THANH BRISCOE EXP COSIGNER: URGENCY: STATUS: COMPLETED called, experincing dizziness, lightheadedness, when he looks down, vision is spinning. Low BPS for the past several days. Also lost 12 lbs. Is keeping hydrated. States today BP 78/58. Previous days 74-114/50-74. Advised to go to local urgent care or ED and will followup with this process description writer tomorrow. /homar/ THANH BRISCOE Registered Nurse Signed: 10/04/2024 14:58 Receipt Acknowledged By: 10/05/2024 18:10 /homar/ DAMION JEAN Attending Physician, Nephrology 10/04/2024 15:14 /es/ MICHELE MAX, RN, RAC-CT REGISTERED NURSE 10/04/2024 16:13 /es/ SUHAIL HOWARD MD Staff Physician, Commercial Escrow Assistant - [facility] --- Original Document --- 07/05/24 NEPHROLOGY OUTPATIENT FOLLOW-UP: Nephrology Follow up HPI: Followed for CKD. PMH of HTN (2012) DM (2012), LUTS (private urologist), afib on [facility] referred for evaluation of CKD with A3 level proteinuria. EGFR varied within the G3a-b range since at at least 2017 range ~35-55. Unclear etiology of variability or if recent trends are NICHOLAS, progression, or just variability. His current 's previous was on dialysis LAST VISIT: 02/2024:stop axel resume lisinopril 10 mg daily labs [...] f/u due to non-optimization and advanced CKD. INTERVAL HISTORY: Checking BP at home daily, > 140 systolic: 110-140 with some in 90's rarely denies new lightheadedness/dizziness, sometimes when BP is low no new edema no orthopnea no new HUMPHRIES no new LUTS no NSAID use Medications specifically reviewed: lisinopril 40 mg daily metoprolol succinate 50 mg BID spironolactone 25 mg daily apixaban atorvastatin semaglutide empa glargine ranolazine gabapentin citalopram finasteride tamsulosin pantoprazole D3 Exam: nad regular HR no m/r clear lung soft ab no edema Labs: Reviewed in CPRS, of particular note: 06/13/2023 Cr 2.5, K 4.9, bicarb 22, EGFR 27, a1c 6 uacr 529 hgb 14 pth 83, D3 47 New Imaging: IMPRESSION: Stable CKD G3b/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 BP is widely variable with rare orthostatis. Discussed need to continue to moniotr closely and alert us if hypotension becomes more common, no change in meds above DM: Target A1C ~7 as tolerated without hypoglycemia. on max ACEi, MRA, glp1a, sglt2i. 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 had prior on HD. He wants to stay this side of the ground and would consider dialysis Follow up plan: no changes today. continue close BP monitoring given lability, alert me in interim if any concerns RTC 4 months, labs prior time spent 31 min /homar/ DAMION JEAN Attending Physician, Nephrology Signed: 07/05/2024 10:57 10/05/2024 ADDENDUM STATUS: COMPLETED Left VM to call this process description writer with updates on BPs and if he was seen in community ED or Urgent Care. /homar/ THANH BRISCOE Registered Nurse Signed: 10/05/2024 13:19 THANH BRISCOE [facility] Jul 05, 2024 10:04 AM PRIMARY CARE NURSI NG OUTPATIENT NOTE: LOCAL TITLE: FRUIT COORDINATOR NURSING STANDARD TITLE: PRIMARY CARE NURSING OUTPATIENT NOTE DATE OF NOTE: JUL 05, 2024@10:04 ENTRY DATE: JUL 05, 2024@10:04:32 AUTHOR: SWAPNIL CARRASCO EXP COSIGNER: URGENCY: STATUS: COMPLETED N-Pain Screen: Are you currently experiencing pain? No: Pain Score: 0 /homar/ AMADEO CARRASCO BLACK POWDER GLAZING OPERATOR Signed: 07/05/2024 10:05 LEILA CARRASCO [facility] Jul 05, 2024 08:00 AM NEPHROLOGY OUTPATI ENT NOTE: LOCAL TITLE: NEPHROLOGY OUTPATIENT FOLLOW-UP STANDARD TITLE: NEPHROLOGY OUTPATIENT NOTE DATE OF NOTE: JUL 05, 2024@08:00 ENTRY DATE: JUN 27, 2024@12:42:40 AUTHOR: DAMION JEAN EXP COSIGNER: URGENCY: STATUS: COMPLETED NEPHROLOGY OUTPATIENT FOLLOW-UP Has ADDENDA Nephrology Follow up HPI: Followed for CKD. PMH of HTN (2012) DM (2012), LUTS (private urologist), afib on [facility] referred for evaluation of CKD with A3 level proteinuria. EGFR varied within the G3a-b range since at at least 2017 range ~35-55. Unclear etiology of variability or if recent trends are NICHOLAS, progression, or just variability. His current 's previous was on dialysis LAST VISIT: 02/2024:stop axel resume lisinopril 10 mg daily labs [...] f/u due to non-optimization and advanced CKD. INTERVAL HISTORY: Checking BP at home daily, > 140 systolic: 110-140 with some in 90's rarely denies new lightheadedness/dizziness, sometimes when BP is low no new edema no orthopnea no new HUMPHRIES no new LUTS no NSAID use Medications specifically reviewed: lisinopril 40 mg daily metoprolol succinate 50 mg BID spironolactone 25 mg daily apixaban atorvastatin semaglutide empa glargine ranolazine gabapentin citalopram finasteride tamsulosin pantoprazole D3 Exam: nad regular HR no m/r clear lung soft ab no edema Labs: Reviewed in CPRS, of particular note: 06/13/2023 Cr 2.5, K 4.9, bicarb 22, EGFR 27, a1c 6 uacr 529 hgb 14 pth 83, D3 47 New Imaging: IMPRESSION: Stable CKD G3b/4 A3 due to DKD/HTN/CVD DETAILED RECOMMENDATIONS: 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 BP is widely variable with rare orthostatis. Discussed need to continue to moniotr closely and alert us if hypotension becomes more common, no change in meds above DM: Target A1C ~7 as tolerated without hypoglycemia. on max ACEi, MRA, glp1a, sglt2i. 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 had prior on HD. He wants to stay this side of the ground and would consider dialysis Follow up plan: no changes today. continue close BP monitoring given lability, alert me in interim if any concerns RTC 4 months, labs prior time spent 31 min /homar/ DAMION JEAN Attending Physician, Nephrology Signed: 07/05/2024 10:57 10/04/2024 ADDENDUM STATUS: COMPLETED [place] called, experincing dizziness, lightheadedness, when he looks down, vision is spinning. Low BPS for the past several days. Also lost 12 lbs. Is keeping hydrated. States today BP 78/58. Previous days 74-114/50-74. Advised to go to local urgent care or ED and will followup with this process description writer tomorrow. /homar/ THANH BRISCOE Registered Nurse Signed: 10/04/2024 14:58 Receipt Acknowledged By: 10/05/2024 18:10 /homar/ DAMION JEAN Attending Physician, Nephrology 10/04/2024 15:14 /es/ PETER BRITT, BSN, RN, RAC-CT REGISTERED NURSE 10/04/2024 16:13 /es/ SUHAIL HOWARD MD Staff Physician, Commercial Escrow Assistant - [facility] 10/05/2024 ADDENDUM STATUS: COMPLETED Left VM to call this process description writer with updates on BPs and if he was seen in community ED or Urgent Care. /homar/ THANH BRISCOE Registered Nurse Signed: 10/05/2024 13:19 10/05/2024 ADDENDUM STATUS: COMPLETED f/u with pt. BP at ED and again today back to normal 120's systolic no LH. Etiology unclear as not significant changes prior to lower BP. Plan: in future if BP low cut lisinopril and spironolactone in half, if still low next day, hold and call me. Asked him to check back in with us again in about 2 weeks to see if there is recurrance. /homar/ DAMION JEAN Attending Physician, Nephrology Signed: 10/05/2024 18:20 Receipt Acknowledged By: 10/08/2024 06:57 /homar/ THANH BRISCOE Registered Nurse 10/18/2024 ADDENDUM STATUS: COMPLETED left VM yesterday that he is admitted at [facility] in [place] with high potassium, hypotension and kidney issues. [place] wanted Dr. Jean to be aware in case he wanted to followup. /homar/ THANH BRISCOE Registered Nurse Signed: 10/18/2024 08:46 Receipt Acknowledged By: 10/18/2024 17:22 /homar/ DAMION JEAN Attending Physician, Nephrology 10/18/2024 ADDENDUM STATUS: COMPLETED please ask him to let us know when he is discharged? did he hold the BP meds as we discussed in late September prior to his admission? I'll want a d/c summary. /homar/ DAMION JEAN Attending Physician, Nephrology Signed: 10/18/2024 17:24 Receipt Acknowledged By: 10/19/2024 08:26 /homar/ THANH BRISCOE Registered Nurse 10/19/2024 ADDENDUM STATUS: COMPLETED called, possibly being discharged from [facility] today. Was admitted with vision issues, dehydration. Will have discharge summary [facility]ed [facility]. States he had cut down to 1/2 of meds as discussed with Dr. Jean when he was admitted. States he will need labs on discharge, will call when he is discharged. /homar/ THANH BRISCOE Registered Nurse Signed: 10/19/2024 08:36 Receipt Acknowledged By: * AWAITING SIGNATURE * DAMION JEAN,DAMION [facility]
--- OUTSIDE RECORDS SUMMARY | 2024-07-11 06:29 | XMS_ITS | Encounter Summary ---
Author Name [facility] Organization [facility] Address [address] [place] [address] Care Team Providers Care Station Agent Name Role Phone SUHAIL HOWARD Primary Care [...] PART B Oct 07, 2017 PART B [id number] MAURY VILLALPANDO PATIENT MEDICARE (WNR) MEDICARE (M) PART A Oct 07, 2017 PART A [id number] [facility] [id number] MAURY VILLALPANDO PATIENT MEDICARE (WNR) MEDICARE (M) PART A Oct 07, 2017 PART A [id number] MAURY VILLALPANDO PATIENT MEDICARE (WNR) MEDICARE (M) PART B Oct 07, 2017 PART B [id number] MAURY VILLALPANDO PATIENT MEDICARE (WNR) MEDICARE (M) PART B Oct 07, 2017 PART B [id number] [facility] [id number] MAURY VILLALPANDO PATIENT MEDICARE (WNR) MEDICARE (M) PART A Oct 07, 2017 PART A [id number] MAURY VILLALPANDO PATIENT [facility] FAMIL Y [place] NIES May 09, 2020 [id number] MAURY VILLALPANDO PATIENT [facility] C&S FMILY OF [place] NI May 09, 2020 [id number] MAURY VILLALPANDO PATIENT Selected Encounter This section includes the information on record at [place] for the Encounter. Date/Time Encounter Type Encounter Description Reason Pro vider Source Jul 11, 2024 10:29 AM Outpatient Encounter PRIMARY CARE/MEDICINE [facility] Encounter Template Text not used by [place] Plan of Treatment: Future Appointments (+ 6 months) and Future Tests (+/- 45 days) The Plan of Treatment section includes future care activities for the patient from all [place] treatmentfacilities. This section includes future appointments and future orders which are active, pending or scheduled. Future Appointments This section includes appointments that were scheduled to occur 6 months from the date of the Encounter, up to a maximum of 20 appointments. The data comes from all [place] treatment facilities. Appointment Date/Time Appointment Type Appointme nt Facility Name Aug 10, 2024 03:00 PM AMBULATORY - MEDICINE [facility] Nov 15, 2024 09:00 AM AMBULATORY - MEDICINE [facility] Lab Results: +/- 30 days of the encounter This section includes the Chemistry and Hematology Lab Results on record with [place] for the patient. Radiology Reports and Pathology Reports are provided separately, in subsequent sections. Lab Results This section contains the Chemistry/Hematology Results that were resulted 30 days before or 30 daysafter the date of the Encounter. Date/Time Source Result Type Result - Unit Interpretation Reference Range Specimen Type Comment Jun 13, 2024 10:50 AM [facility] FERRITIN BLOOD Specimen Type: BLOOD No comment entered. Ordering Provider: DAMION JEAN Report Released Date/Time: Feb 16, 2024 11:18 AM Reporting Lab: [address] [address] Performing Lab: [address] [address] FERRITIN 36.9 ng/mL 23.9-336.2 Jun 13, 2024 10:50 AM [facility] IRON/TIBC/FERR BLOOD Specimen Type: BLOOD No comment entered. Ordering Provider: DAMION JEAN Report Released Date/Time: Feb 16, 2024 11:18 AM Reporting Lab: [address] [address] Performing Lab: [address] [address] IRON 62 ug/dL 50-212 TIBC 358 ug/dL 240-450 FERRITIN 36.9 ng/mL 23.9-336.2 TRANSFERRIN 256 mg/dL 203-362 Jun 13, 2024 10:50 AM [facility] PTH (INTACT) BLOOD Specimen Type: BLOOD No comment entered. Ordering Provider: DAMION JEAN Report Released Date/Time: Feb 16, 2024 11:18 AM Reporting Lab: [address] [address] Performing Lab: [address] [address] PTH (INTACT) 83.7 pg/mL 12.0-88.0 Jun 13, 2024 10:50 AM [facility] TOTAL 25-HYDROXY VITAMIN D BLOOD Specimen Typ e: BLOOD No comment entered. Ordering Provider: DAMION JEAN Report Released Date/Time: Feb 16, 2024 11:18 AM Reporting Lab: [address] [address] Performing Lab: [address] [address] TOTAL 25-HYDROXY VITAMIN D 47.4 ng/mL 30 -100 Jun 13, 2024 10:50 AM [facility] MICROALBUMIN URINE PANEL,RANDOM URINE,RANDOM Specime n Type: URINE,RANDOM No comment entered. Ordering Provider: DAMION JEAN Report Released Date/Time: Feb 16, 2024 11:18 AM Reporting Lab: [address] [address] Performing Lab: [address] [address] CREATININE 91 mg/dL MICROALBUMIN,RANDOM 48.1 mg/dL MICRO/CREAT RATIO 528.6 mg/g Jun 13, 2024 10:50 AM [facility] MAGNESIUM BLOOD Specimen Type: BLOOD No comment entered. Ordering Provider: DAMION JEAN Report Released Date/Time: Feb 16, 2024 11:18 AM Reporting Lab: [address] [facility] [address] Performing Lab: [facility] [address] [facility] [address] MAGNESIUM 2.0 mg/dL 1.9-2.7 Jun 13, 2024 10:50 AM [facility] HGB A1C (with eAG) BLOOD Specimen Ty pe: BLOOD No comment entered. Ordering Provider: SUHAIL HOWARD MD Report Released Date/Time: Mar 05, 2024 09:21 AM Reporting Lab: [address] [facility] [address] Performing Lab: [address] [facility] [address] HGB A1C 6.0 4.0-6.0 ESTIMATE AVG GLUCOSE 126 mg/dL Jun 13, 2024 10:50 AM [facility] RENAL FUNCTION PANEL (AA) BLOOD Specimen Type : BLOOD No comment entered. Ordering Provider: DAMION JEAN Report Released Date/Time: Feb 16, 2024 11:18 AM Reporting Lab: [address] [facility] [address] Performing Lab: [address] [facility] [address] CREATININE 2.5 mg/dL H 0.6-1.3 UREA NITROGEN 43 mg/dL H 7-25 GLUCOSE 129 mg/dL H 74-109 SODIUM 138 mmol/L 136-145 POTASSIUM 4.9 mmol/L 3.5-5.1 CHLORIDE 109 mmol/L H 98-107 CO2 22 mmol/L 21-31 CALCIUM 9.4 mg/dL 8.6-10.3 PO4 4.3 mg/dL 2.5-5 ALBUMIN 4.3 g/dL 3.5-5.7 EGFR 27 mL/min/{1.73_m2} Jun 13, 2024 10:50 AM [facility] CBC WITH DIFFERENTIAL BLOOD Specimen Type: BL OOD No comment entered. Ordering Provider: DAMION JEAN Report Released Date/Time: Feb 16, 2024 11:18 AM Reporting Lab: [facility] [address] [facility] [address] Performing Lab: [facility] [address] [facility] [address] WBC 6.47 10*3/uL 4.00-11.00 RBC 4.96 10*6/uL [...] and tobacco- related health factors from the [place] facility where the Encounter took place. Current Smoking Status This section includes the most current smoking, or tobacco-related health factor, from the [place] facility where the Encounter took place. Date/Time Current Smoking Status Comment Facil ity Aug 16, 2023 07:30 AM VA-TOBACCO NEVER USED [facility] Tobacco Use History This section includes a history of the smoking, or tobacco-related health factors, that were collected on or before the date of the Encounter. The data comes from the [place] facility where the Encounter took place. Date/Time Smoking Status/Tobacco Use Comment F acility Apr 21, 2022 09:00 AM HI-TOBACCO NEVER USED [facility] Apr 28, 2021 10:30 AM HI-TOBACCO NEVER USED [facility] May 29, 2019 10:34 AM HI-TOBACCO NEVER USED [facility] Dec 15, 2017 10:25 AM HI-TOBACCO NEVER USED [facility] Aug 18, 2017 03:43 PM LIFETIME NON-USER OF TOBACCO [facility] Sep 01, 2016 08:43 AM LIFETIME NON-USER OF TOBACCO [facility] Aug 21, 2015 10:40 AM LIFETIME NON-USER OF TOBACCO [facility] Encounter Notes: All associated encounter notes This section contains the clinical notes associated to the Encounter. Date/Time Encounter Note(s) Provider Source Jul 11, 2024 10:29 AM PHARMACY MEDICATIO N MGT NOTE: LOCAL TITLE: MEDICATION MANAGEMENT STANDARD TITLE: PHARMACY MEDICATION MGT NOTE DATE OF NOTE: JUL 11, 2024@10:29 ENTRY DATE: JUL 11, 2024@10:29:26 AUTHOR: NEREIDA CONKLIN EXP COSIGNER: URGENCY: STATUS: COMPLETED PROBLEM: Electronic Prescription (eRX) (Non-Community Care) received for ACTION TAKEN: ASPIRIN 81MG EC TAB qty 90 3 refills take 1 tablet by mouth in the am dr miguel ramirez [phone] fax [phone] /homar/ NEREIDA CONKLIN RELEASE OF INFORMATION CLERK Signed: 07/11/2024 10:37 Receipt Acknowledged By: 07/11/2024 13:06 /homar/ GHAZAL MAXN, RN, RAC-CT REGISTERED NURSE NEREIDA CONKLIN [facility]
--- OUTSIDE RECORDS SUMMARY | 2024-08-10 11:00 | XMS_ITS | Encounter Summary ---
Author Name [facility] [place] [facility] [place] [facility] [place] Address [address] [place] [address] Care Team Providers Care Network Strategist Name Role Phone SUHAIL HOWARD Primary Care Provider Unavaila ble Insurance Providers: All historical and current Section Date Range: From patient's date of to the date document was created. This section includes the names of all active insurance providers for the patient. Insurance Provider Type of Coverage Plan Name Start of Policy Coverage End of Policy Coverage Group Number Member ID Insurance Provider's Telephone Number Policy Batista's Name Patient's Relationship to Policy Batista [employer] S WHOLE SALE ZAY R Dec 07, 2014 [id number] MAURY VILLALPANDO PATIENT MEDICARE (WNR) MEDICARE (M) PART B Oct 07, 2017 PART B [id number] MAURY VILLALPANDO PATIENT MEDICARE (WNR) MEDICARE (M) PART A Oct 07, 2017 PART A [id number] MAURY VILLALPANDO PATIENT MEDICARE (WNR) MEDICARE (M) PART B Oct 07, 2017 PART B [id number] MAURY VILLALPANDO PATIENT MEDICARE (WNR) MEDICARE (M) PART A Oct 07, 2017 PART A [id number] MAURY VILLALPANDO PATIENT [facility] [place] NIELVIA May 09, 2020 [id number] MAURY VILLALPANDO PATIENT [facility] C&[facility] FMILY OF [place] NI May 09, 2020 [id number] MAURY VILLALPANDO PATIENT Selected Encounter This section includes the information on record at [place] for the Encounter. Date/Time Encounter Type Encounter Description Reason Provider Source Aug 10, 2024 03:00 PM OFF/OP EST SEPTEMBER X REQ PHY/QHP PRIMARY CARE/MEDICINE ICD-10-CM Z00.8 Encounter for other general examination QUANG AGGARWAL Jann Encounter Template Text not used by [place] Assessments - Encounter Diagnoses This section includes the primary and secondary diagnoses documented for the Encounter. Date/Time Primary/Secondary Diagnosis Diagnosis Name Provider Source Aug 20, 2024 01:40 PM PRIMARY Encounter for other general examination QUANG KENNEY [facility] Plan of Treatment: Future Appointments (+ 6 months) and Future Tests (+/- 45 days) The Plan of Treatment section includes future care activities for the patient from all [place] treatmentfacilities. This section includes future appointments and future orders which are active, pending or scheduled. Future Appointments This section includes appointments that were scheduled to occur 6 months from the date of the Encounter, up to a maximum of 20 appointments. The data comes from all [place] treatment facilities. Appointment Date/Time Appointment Type Appointme nt Facility Name Nov 15, 2024 09:00 AM AMBULATORY - MEDICINE [facility] Social History: Smoking Status (Most current) and Tobacco Use (All prior to encounter date) This section includes the most current, and the historical, smoking and tobacco- related health factors from the [facility] facility where the Encounter took place. Current Smoking Status This section includes the most current smoking, or tobacco-related health factor, from the [place] facility where the Encounter took place. Date/Time Current Smoking Status Comment Facil ity Aug 16, 2023 07:30 AM VA-TOBACCO NEVER USED [facility] Tobacco Use History This section includes a history of the smoking, or tobacco-related health factors, that were collected on or before the date of the Encounter. The data comes from the [place] facility where the Encounter took place. Date/Time Smoking Status/Tobacco Use Comment F acility Apr 21, 2022 09:00 AM VA-TOBACCO NEVER USED [facility] Apr 28, 2021 10:30 AM VA-TOBACCO NEVER USED [facility] May 29, 2019 10:34 AM VA-TOBACCO NEVER USED [facility] Dec 15, 2017 10:25 AM VA-TOBACCO NEVER USED [facility] Aug 18, 2017 03:43 PM LIFETIME NON-USER OF TOBACCO [facility] Sep 01, 2016 08:43 AM LIFETIME NON-USER OF TOBACCO [facility] Aug 21, 2015 10:40 AM LIFETIME NON-USER OF TOBACCO [facility] Encounter Notes: All associated encounter notes This section contains the clinical notes associated to the Encounter. Date/Time Encounter Note(s) Provider Source Aug 10, 2024 02:44 PM PRIMARY CARE NURSI ROSE NOTE: LOCAL TITLE: PRIMARY CARE NURSING STANDARD TITLE: PRIMARY CARE NURSING NOTE DATE OF NOTE: AUG 10, 2024@14:44 ENTRY DATE: AUG 10, 2024@14:44:23 AUTHOR: CHACORTA KENNEY COSIGNER: URGENCY: STATUS: COMPLETED NURSE OUTPATIENT PROCEDURE COMPRESSION STOCKING MEASUREMENT Rosiclare presents to clinic for compression stocking measurement. Left: Right: Ankle: 10 inches 10 inches Calf: 14 inches 15 inches Thigh: inches inches Size: large Diagnosis requirement: Minor ankle, leg & foot swelling 20-30 mmHg Regional Airline Pilot:Truform Length:Knee High Toe Type:Closed Toe Color:Black Product Number: [id number] Prosthetic Consult Placed. /elvia/ QUANG KENNEY REFUELER Signed: 08/10/2024 14:54 QUANG KENNEY [facility]
--- OUTSIDE RECORDS SUMMARY | 2024-11-15 05:00 | XMS_ITS | Encounter Summary ---
Author Name [facility] ([place] Organization [facility] Address [address] [place] [address] Care Team Providers Care Nuclear Physicist Name Role Phone SUHAIL HOWARD Primary Care [...] PART B Oct 07, 2017 PART B [id number] MAURY VILLALPANDO PATIENT MEDICARE (WNR) MEDICARE (M) PART A Oct 07, 2017 PART A [id number] [facility] [phone] MAURY VILLALPANDO PATIENT MEDICARE (WNR) MEDICARE (M) PART A Oct 07, 2017 PART A [id number] [phone] MAURY VILLALPANDO PATIENT MEDICARE (WNR) MEDICARE (M) PART B Oct 07, 2017 PART B [id number] MAURY VILLALPANDO PATIENT MEDICARE (WNR) MEDICARE (M) PART B Oct 07, 2017 PART B [id number] [facility] [phone] MAURY VILLALPANDO PATIENT MEDICARE (WNR) MEDICARE (M) PART A Oct 07, 2017 PART A [id number] MAURY VILLALPANDO PATIENT [facility] FAMIL Y LORETA NIES May 09, 2020 [id number] MAURY VILLALPANDO PATIENT [facility] FMILY OF LORET[place] NI May 09, 2020 [id number] MAURY VILLALPANDO PATIENT Selected Encounter This section includes the information on record at DC for the Encounter. Date/Time Encounter Type Encounter Description Reason Provider Source Nov 15, 2024 09:00 AM OFFICE O/P EST MOD 30 MIN RENAL/NEPHROL(EXC EPT DIALYSIS) ICD-10-CM N18.30 Chronic kidney disease, stage 3 unspecified MARVEL JEAN Jann Encounter Template Text not used by DC Assessments - Encounter Diagnoses This section includes the primary and secondary diagnoses documented for the Encounter. Date/Time Primary/Secondary Diagnosis Diagnosis Name Provider Source Nov 27, 2024 11:52 AM PRIMARY Chronic kidney disease, stage 3 unspecified MAYITO ORTEGA [facility] Nov 27, 2024 11:52 AM SECONDARY Acute kidney failure with tubular necrosis MARVEL JEAN [facility] Nov 27, 2024 11:52 AM SECONDARY Essential (primary) hypertension MAYITO ORTEGA [facility] Nov 27, 2024 11:52 AM SECONDARY Hyperkalemia MARVEL JEAN [facility] Nov 27, 2024 11:52 AM SECONDARY Type 2 diabetes mellitus w diabetic chronic kidney disease MARVEL JEAN [facility] Plan of Treatment: Future Appointments (+ 6 months) and Future Tests (+/- 45 days) The Plan of Treatment section includes future care activities for the patient from all [place] treatmentfacilities. This section includes future appointments and future orders which are active, pending or scheduled. Future Appointments This section includes appointments that were scheduled to occur 6 months from the date of the Encounter, up to a maximum of 20 appointments. The data comes from all [place] treatment facilities. Appointment Date/Time Appointment Type Appointme nt Facility Name Apr 05, 2025 10:15 AM AMBUL[facility]ORY [facility] Apr 18, 2025 10:00 AM AMBULATORY - MEDICINE [facility] Active, Pending, and Scheduled Orders This section includes a listing of several types of active, pending, and scheduled orders, including clinic medications orders, diagnostic test orders, procedure orders and consult orders; where the start date of the order is 45 days before the date of the Encounter or 45 days after the date of theEncounter. The data comes from all [place] treatment facilities. Test Date/Time Test Type Test Details Facility Name Nov 29, 2024 12:00 AM Laboratory - Chemi stry Order MAGNESIUM PLASMA BLOOD ONCE [facility] Nov 29, 2024 12:00 AM Laboratory - Chemi stry Order RENAL FUNCTION PANEL (AA) PLASMA BLOOD [facility] Nov 29, 2024 12:00 AM Laboratory - Chemi stry Order IRON/TIBC/FERR SERUM BLOOD [facility] Nov 29, 2024 12:00 AM Laboratory - Chemi stry Order FERRITIN SERUM BLOOD [facility] Nov 29, 2024 12:00 AM Laboratory - Chemi stry Order CBC WITH DIFFERENTIAL EDTA BLOOD [facility] Lab Results: +/- 30 days of the encounter This section includes the Chemistry and Hematology Lab Results on record with DC for the patient. Radiology Reports and Pathology Reports are provided separately, in subsequent sections. Lab Results This section contains the Chemistry/Hematology Results that were resulted 30 days before or 30 daysafter the date of the Encounter. Date/Time Source Result Type Result - Unit Interpretation Reference Range Specimen Type Comment Nov 12, 2024 08:11 AM [facility] RENAL FUNCTION PANEL (AA) BLOOD Specimen Type : BLOOD Comment: R-Specimen is slightly lipemic and may cause interference. See Laboratory Handbook Laboratory Interferences Table for more information. Ordering Provider: DAMION JEAN Report Released Date/Time: Nov 02, 2024 10:33 AM Reporting Lab: [facility] [address] [facility] [address] Performing Lab: [facility] [address] [facility] [address] CREATININE 2.2 mg/dL H 0.6-1.3 UREA NITROGEN 33 mg/dL H 7-25 GLUCOSE 227 mg/dL H 74-109 SODIUM 140 mmol/L 136-145 POTASSIUM 4.2 mmol/L 3.5-5.1 CHLORIDE 110 mmol/L H 98-107 CO2 23 mmol/L 21-31 CALCIUM 9.1 mg/dL 8.6-10.3 PO4 4.1 mg/dL 2.5-5 ALBUMIN 4.0 g/dL 3.5-5.7 ANION GAP 7 mmol/L 4-12 EGFR 31 mL/min/{1.73_m2} Nov 01, 2024 02:42 PM [facility] MAGNESIUM BLOOD Specimen Type: BLOOD No comment entered. Ordering Provider: DAMION JEAN Report Released Date/Time: Oct 26, 2024 11:50 AM Reporting Lab: [facility] [address] [facility] [address] Performing Lab: [facility] [address] [facility] [address] [facility] [address] MAGNESIUM 2.3 mg/dL 1.9-2.7 Nov 01, 2024 02:42 PM [facility] RENAL FUNCTION PANEL (AA) BLOOD Specimen Type : BLOOD No comment entered. Ordering Provider: DAMION JEAN Report Released Date/Time: Oct 26, 2024 11:50 AM Reporting Lab: [facility] [address] [facility] [address] Performing Lab: [facility] [address] [facility] [address] CREATININE 3.1 mg/dL H 0.6-1.3 UREA NITROGEN 47 mg/dL H 7-25 GLUCOSE 155 mg/dL H 74-109 SODIUM 137 mmol/L 136-145 POTASSIUM 5.2 mmol/L H 3.5-5.1 CHLORIDE 107 mmol/L 98-107 CO2 23 mmol/L 21-31 CALCIUM 9.0 mg/dL 8.6-10.3 PO4 3.9 mg/dL 2.5-5 ALBUMIN 4.3 g/dL 3.5-5.7 ANION GAP 7 mmol/L 4-12 EGFR 21 mL/min/{1.73_m2} Nov 01, 2024 02:42 PM [facility] URINALYSIS URINE,RANDOM Specimen Type: URINE,RANDOM No comment entered. Ordering Provider: DAMION JEAN Report Released Date/Time: Oct 26, 2024 11:50 AM Reporting Lab: [facility] [address] [facility] [address] Performing Lab: [facility] [address] [facility] [address] URINE COLOR YELLOW Yellow SPECIFIC GRAVITY 1.021 [...] Seen /[LPF] Oct 26, 2024 08:42 AM [facility] FERRITIN BLOOD Specimen Type: BLOOD No comment entered. Ordering Provider: DAMION JEAN Report Released Date/Time: Oct 23, 2024 02:38 PM Reporting Lab: [address] Performing Lab: [place] [address] FERRITIN 56.7 ng/mL 23.9-336.2 Oct 26, 2024 08:42 AM [facility] IRON/TIBC/FERR BLOOD Specimen Type: BLOOD No comment entered. Ordering Provider: DAMION JEAN Report Released Date/Time: Oct 23, 2024 02:38 PM Reporting Lab: [place] [id number] Performing Lab: [address] IRON 51 ug/dL 50-212 TIBC 272 ug/dL 240-450 FERRITIN 56.7 ng/mL 23.9-336.2 TRANSFERRIN 194 mg/dL L 203-362 Oct 26, 2024 08:42 AM [facility] RENAL FUNCTION PANEL (AA) BLOOD Specimen Type : BLOOD No comment entered. Ordering Provider: DAMION JEAN Report Released Date/Time: Oct 22, 2024 02:12 PM Reporting Lab: [facility] [address] [facility] [address] Performing Lab: [facility] [address] [facility] [address] CREATININE 3.4 mg/dL H 0.6-1.3 UREA NITROGEN 50 mg/dL H 7-25 GLUCOSE 139 mg/dL H 74-109 SODIUM 139 mmol/L 136-145 POTASSIUM 5.5 mmol/L H 3.5-5.1 CHLORIDE 109 mmol/L H 98-107 CO2 24 mmol/L 21-31 CALCIUM 8.8 mg/dL 8.6-10.3 PO4 3.3 mg/dL 2.5-5 ALBUMIN 3.8 g/dL 3.5-5.7 ANION GAP 6 mmol/L 4-12 EGFR 19 mL/min/{1.73_m2} Oct 26, 2024 08:42 AM [facility] PTH (INTACT) BLOOD Specimen Type: BLOOD No comment entered. Ordering Provider: DAMION JEAN Report Released Date/Time: Oct 23, 2024 02:38 PM Reporting Lab: [place] [id number] Performing Lab: [place] [phone] PTH (INTACT) 116.7 pg/mL H 12.0-88.0 Oct 26, 2024 08:42 AM [facility] TOTAL 25-HYDROXY VITAMIN D BLOOD Specimen Typ e: BLOOD No comment entered. Ordering Provider: DAMION JEAN Report Released Date/Time: Oct 23, 2024 02:38 PM Reporting Lab: [address] [address] Performing Lab: [address] [address] TOTAL 25-HYDROXY VITAMIN D 39.4 ng/mL 30 -100 Oct 26, 2024 08:42 AM [facility] MAGNESIUM BLOOD Specimen Type: BLOOD No comment entered. Ordering Provider: DAMION JEAN Report Released Date/Time: Oct 23, 2024 02:38 PM Reporting Lab: [facility] [address] [facility] [address] Performing Lab: [facility] [address] [facility] [address] MAGNESIUM 1.9 mg/dL 1.9-2.7 Oct 26, 2024 08:42 AM [facility] MICROALBUMIN URINE PANEL,RANDOM URINE,RANDOM Specime n Type: URINE,RANDOM No comment entered. Ordering Provider: DAMION JEAN Report Released Date/Time: Oct 23, 2024 02:38 PM Reporting Lab: [address] [address] Performing Lab: [address] [address] CREATININE 74 mg/dL MICROALBUMIN,RANDOM 8.5 mg/dL MICRO/CREAT RATIO 114.9 mg/g Oct 26, 2024 08:42 AM [facility] HGB A1C (with eAG) BLOOD Specimen Type: BLOOD No comment entered. Ordering Provider: DAMION JEAN Report Released Date/Time: Oct 23, 2024 02:38 PM Reporting Lab: [address] [address] Performing Lab: [address] [address] HGB A1C 5.6 4.0-6.0 ESTIMATE AVG GLUCOSE 114 mg/dL Oct 26, 2024 08:42 AM [facility] CYSTATIN C (INCLUDES EGFR) BLOOD Specimen Typ e: BLOOD No comment entered. Ordering Provider: DAMION JEAN Report Released Date/Time: Oct 23, 2024 02:38 PM Reporting Lab: [address] [address] Performing Lab: [address] [address] CREATININE 3.4 mg/dL H 0.6-1.3 CYSTATIN C 2.47 mg/L H 0.6-1.25 EGFR (CREATININE-CYSTATIN C) 21 mL/min/{1.73_m2} Oct 26, 2024 08:42 AM [facility] CREATININE URINE,RANDOM Specimen Type: URINE,RANDOM No comment entered. Ordering Provider: DAMION JEAN Report Released Date/Time: Oct 23, 2024 02:38 PM Reporting Lab: [address] [address] Performing Lab: [address] [address] CREATININE 74 mg/dL Oct 26, 2024 08:42 AM [facility] CBC WITH DIFFERENTIAL BLOOD Specimen Type: BL OOD No comment entered. Ordering Provider: DAMION JEAN Report Released Date/Time: Oct 22, 2024 02:12 PM Reporting Lab: [facility] [address] [facility] [address] Performing Lab: [facility] [address] [facility] [address] WBC 6.24 10*3/uL 4.00-11.00 RBC 3.56 10*6/uL [...] 10*3/uL 0.000-0.012 Oct 26, 2024 08:42 AM [facility] PROTEIN,TOTAL URINE,RANDOM Specimen Type: URINE,RANDOM No comment entered. Ordering Provider: DAMION JEAN Report Released Date/Time: Oct 23, 2024 02:38 PM Reporting Lab: [address] [address] Performing Lab: [address] [address] PROTEIN,TOTAL 18.5 mg/dL Oct 26, 2024 08:42 AM [facility] CPK BLOOD Specimen Type: BLOOD No comment entered. Ordering Provider: DAMION JEAN Report Released Date/Time: Oct 22, 2024 02:12 PM Reporting Lab: [address] [address] Performing Lab: [address] [facility] [address] CPK 87 U/L 30-223 Oct 26, 2024 08:42 AM [facility] URINALYSIS URINE,RANDOM Specimen Type: URINE,RANDOM No comment entered. Ordering Provider: DAMION JEAN Report Released Date/Time: Oct 23, 2024 02:38 PM Reporting Lab: [address] [address] Performing Lab: [address] [address] URINE COLOR YELLOW Yellow SPECIFIC GRAVITY 1.018 [...] Seen /[LPF] Oct 26, 2024 08:42 AM [facility] LDH BLOOD Specimen Type: BLOOD No comment entered. Ordering Provider: DAMION JEAN Report Released Date/Time: Oct 22, 2024 02:12 PM Reporting Lab: [address] [facility] [address] Performing Lab: [address] [address] LDH 146 U/L <248 Oct 26, 2024 08:42 AM [facility] PROTEIN,TOTAL BLOOD Specimen Type: BLOOD No comment entered. Ordering Provider: DAMION JEAN Report Released Date/Time: Oct 22, 2024 02:12 PM Reporting Lab: [place] [address] [place] [address] Performing Lab: [place] [facility] [address] [place] [address] PROTEIN,TOTAL 6.3 g/dL L 6.4-8.9 Oct 26, 2024 08:42 AM [facility] TOT. BILIRUBIN BLOOD Specimen Type: BLOOD No comment entered. Ordering Provider: DAMION JEAN Report Released Date/Time: Oct 22, 2024 02:12 PM Reporting Lab: [facility] [address] [place] [address] Performing Lab: [facility] [address] [place] [address] TOT. BILIRUBIN 0.5 mg/dL 0.3-1.0 Oct 26, 2024 08:42 AM [facility] ALKALINE PHOSPHATASE BLOOD Specimen Type: BLO OD No comment entered. Ordering Provider: DAMION JEAN Report Released Date/Time: Oct 22, 2024 02:12 PM Reporting Lab: [facility] [address] [place] [address] Performing Lab: [facility] [address] [place] [address] ALKALINE PHOSPHATASE 39 U/L 34-104 Oct 26, 2024 08:42 AM [facility] SGPT(ALT) BLOOD Specimen Type: BLOOD No comment entered. Ordering Provider: DAMION JEAN Report Released Date/Time: Oct 22, 2024 02:12 PM Reporting Lab: [facility] [address] [place] [address] Performing Lab: [facility] [address] [place] [address] SGPT(ALT) 13 U/L 7-52 Oct 26, 2024 08:42 AM [facility] DIRECT BILIRUBIN BLOOD Specimen Type: BLOOD No comment entered. Ordering Provider: DAMION JEAN Report Released Date/Time: Oct 22, 2024 02:12 PM Reporting Lab: [facility] [address] [place] [address] Performing Lab: [facility] [address] [place] [address] DIRECT BILIRUBIN 0.1 mg/dL 0.0-0.2 Oct 26, 2024 08:42 AM [facility] SGOT(AST) BLOOD Specimen Type: BLOOD No comment entered. Ordering Provider: DAMION JEAN Report Released Date/Time: Oct 22, 2024 02:12 PM Reporting Lab: [facility] [address] [facility] [address] Performing Lab: [facility] [address] [facility] [address] SGOT(AST) 11 U/L L 13-39 Oct 26, 2024 08:42 AM [facility] BENCE BARRIGA,RANDOM URINE URINE,RANDOM Specimen Type: URINE,RANDOM Comment: Trace albumin detected. Negative for monoclonal light chains. This impression comfirmed by immunotyping.. Results interpreted by Dr. Malachi Jain MD. Ordering Provider: DAMION JEAN Report Released Date/Time: Oct 26, 2024 11:22 AM Reporting Lab: [address] [address] Performing Lab: [address] [address] UPEP comment IMMUNOFIXATION,URINE comment Oct 26, 2024 08:42 AM [facility] UPEP URINE,RANDOM Specimen Type: URINE ,RANDOM Comment: Trace albumin detected. Negative for monoclonal light chains. This impression comfirmed by immunotyping.. Results interpreted by Dr. Malachi Jain MD. Ordering Provider: DAMION JEAN Report Released Date/Time: Oct 26, 2024 11:22 AM Reporting Lab: [address] [address] Performing Lab: [address] [address] UPEP comment Oct 26, 2024 08:42 AM [facility] SPEP BLOOD Specimen Type: BLOOD Comment: Normal Pattern. Results interpreted by Dr. Malachi Jain MD. Ordering Provider: DAMION JEAN Report Released Date/Time: Oct 26, 2024 11:22 AM Reporting Lab: [address] [address] Performing Lab: [address] [address] T.P.(SPEP) 6.2 g/dL L 6.4-8.9 A/G RATIO [...] 15.3 8.8-21.4 Oct 26, 2024 08:42 AM [facility] HAPTOGLOBIN BLOOD Specimen Type: BLOOD Comment: *LDH Not Performed: Oct 26, 2024@11:41 by [id number] *BOILER TESTER Reason: Test added to [facility] 0620 14 *CPK Not Performed: Oct 26, 2024@11:42 by [id number] *BOILER TESTER [facility] *LIVER PANEL Not Performed: Oct 26, 2024@11:42 by [id number] *BOILER TESTER [facility] Ordering Provider: DAMION JEAN Report Released Date/Time: Oct 26, 2024 11:22 AM Reporting Lab: [address] [address] Performing Lab: [address] [address] HAPTOGLOBIN 166 mg/dL 44-215 Oct 26, 2024 08:42 AM [facility] C-REACTIVE PROTEIN BLOOD Specimen Type: BLOOD Comment: *LDH Not Performed: Oct 26, 2024@11:41 by [id number] *BOILER TESTER Reason: Test added to [facility] 0620 14 *CPK Not Performed: Oct 26, 2024@11:42 by [id number] *BOILER TESTER Reason: Test added to [facility] 0620 14 *LIVER PANEL Not Performed: Oct 26, 2024@11:42 by [id number] *BOILER TESTER Reason: Test added to [facility] 0620 14 Ordering Provider: DAMION JEAN Report Released Date/Time: Oct 26, 2024 11:22 AM Reporting Lab: [facility] [address] [facility] [address] Performing Lab: [facility] [address] [place] [address] C-REACTIVE PROTEIN 0.20 mg/dL <0.5 Oct 26, 2024 08:42 AM [facility] KAPPA/LAMBDA LIGHT CHAIN W/RATIO BLOOD Specim en Type: BLOOD Comment: *LDH Not Performed: Oct 26, 2024@11:41 by [id number] *BOILER TESTER Reason: Test added to [facility] 0620 14 *CPK Not Performed: Oct 26, 2024@11:42 by [id number] *BOILER TESTER Reason: Test added to [facility] 0620 14 *LIVER PANEL Not Performed: Oct 26, 2024@11:42 by [id number] *BOILER TESTER Reason: Test added to [facility] 0620 14 Ordering Provider: DAMION JEAN Report Released Date/Time: Oct 26, 2024 11:22 AM Reporting Lab: [facility] [address] [facility] [address] Performing Lab: [facility] [address] [place] [address] KAPPA LIGHT CHAIN QUNT 59.70 mg/L H [...] Nov 15, 2024 08:53 AM 129/70 mm[Hg] [facility] Nov 15, 2024 08:52 AM 96.6 F 56 /min 167/93 mm[Hg] 16 /min 96 % 199.3 lb 30 [facility] Nov 15, 2024 08:51 AM 0 [facility] Encounter Notes: All associated encounter notes This section contains the clinical notes associated to the Encounter. Date/Time Encounter Note(s) Provider Source Nov 15, 2024 09:30 AM NEPHROLOGY OUTPATI ENT NOTE: LOCAL TITLE: NEPHROLOGY OUTPATIENT FOLLOW-UP STANDARD TITLE: NEPHROLOGY OUTPATIENT NOTE DATE OF NOTE: NOV 15, 2024@09:30 ENTRY DATE: NOV 15, 2024@09:31:21 AUTHOR: MAYITO ORTEGA COSIGNER: DAMION JEAN URGENCY: STATUS: COMPLETED NEPHROLOGY OUTPATIENT FOLLOW-UP Has ADDENDA Nephrology Outpatient Initial Note ======== 74 yo MALE is being seen in the [facility]. Followed for CKD. 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 [facility] Trending charts pre-08/03/21 should not be compared to post-08/03/21. 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 No: Pain Score: 0 /homar/ DAVIDE GONZALEZ LPN Signed: 11/15/2024 08:54 DAVIDE GONZALEZ [facility]
--- OUTSIDE RECORDS SUMMARY | 2024-12-03 06:53 | XMS_ITS | Encounter Summary ---
Author Organization [facility] tem Address [id number] [address] [place] [address] Care Team Providers Care Tape Edge Machine Operator Name Role Phone Mason Membreno MD Primary Care Provider [phone] Reason for Referral * Diagnostic Imaging (Routine) - Closed Specialty Diagnoses / Procedures Referred By Contac t Referred To Contact Radiology Diagnoses Sacroiliitis, not elsewhere classified Procedures MR sacrum without contrast Kortney Montes De Oca APRN-MARKETING OPERATIONS CONSULTANT [address] [place] [address] Phone: tel: fax: Referral ID Status Reason Start Date Expiration Date Visits Re quested Visits Authorized [id number] Closed 11/29/2024 11/29/2025 1 1 Reason for Visit * Diagnostic Imaging (Routine) - Closed Specialty Diagnoses / Procedures Referred By Contac t Referred To Contact Radiology Diagnoses Sacroiliitis, not elsewhere classified Procedures MR sacrum without contrast Kortney Montes De Oca APRN-MARKETING OPERATIONS CONSULTANT [address] [place] [address] Phone: tel: fax: Referral ID Status Reason Start Date Expiration Date Visits Re quested Visits Authorized [id number] Closed 11/29/2024 11/29/2025 1 1 Encounter Details Date Type Department Care Team (Latest Contact Info) Description 12/03/2024 6:53 AM EDT Hospital Encounter [facility] - MRI Imaging [address] [place] [address] Sacroiliitis, not elsewhere classified Discharge Disposition: Home [...] - [facility] [address] [place] [address] Sacroiliitis, not elsewhere classified Pending Results Name Type Priority Associated Diagnoses Date /Time MR sacrum without contrast Imaging Routine Sacroiliitis, not elsewhere classified 12/03/2024 7:48 AM EDT Scheduled Orders Name Type Priority Associated Diagnoses Orde r Schedule MR sacrum without contrast Imaging Routine Sacroiliitis, not elsewhere classified ([facility]) Once for 1 Occurrences starting 12/03/2024 until 12/03/2024 documented as of this encounter Goals Goal Patient Goal Type Associated Problems Recent Progress Patient-Stated? Author Improve mobility General Yes Lakia Ochoa, RN Note: Evaluation of progress towards goal: Maximize work with PT at discharge to strengthen R knee documented as of this encounter Visit Diagnoses Diagnosis Sacroiliitis, not elsewhere classified Sacroiliitis, not elsewhere classified documented in this encounter Care Teams Tape Edge Machine Operator Relationship Specialty Start Date End Date Mason Membreno MD [address] [place] [address] PCP - General Internal Medicine 12/14/18 documented as of this encounter
--- OUTSIDE RECORDS SUMMARY | 2024-12-03 06:54 | XMS_ITS | Encounter Summary ---
Author Organization [facility] tem Address [id number] [address] [place] [address] Care Team Providers Care Gallery Manager Name Role Phone Mason Membreno MD Primary Care Provider Reason for Referral * Diagnostic Imaging (Routine) - Closed Specialty Diagnoses / Procedures Referred By Contac t Referred To Contact Radiology Diagnoses Lumbar radiculopathy Procedures MR lumbar spine without contrast Kortney Montes De Oca APRN-AUGER MILL OPERATOR [address] [place] [address] Phone: tel: fax: Referral ID Status Reason Start Date Expiration Date Visits Re quested Visits Authorized [id number] Closed 11/29/2024 11/29/2025 1 1 Reason for Visit * Diagnostic Imaging (Routine) - Closed Specialty Diagnoses / Procedures Referred By Contac t Referred To Contact Radiology Diagnoses Lumbar radiculopathy Procedures MR lumbar spine without contrast Kortney Montes De Oca APRN-AUGER MILL OPERATOR [address] [place] [address] Phone: tel: fax: Referral ID Status Reason Start Date Expiration Date Visits Re quested Visits Authorized [id number] Closed 11/29/2024 11/29/2025 1 1 Encounter Details Date Type Department Care Team (Latest Contact Info) Description 12/03/2024 6:54 AM EDT - 12/03/2024 11:59 PM EDT Hospital Encounter [facility] - MRI Imaging [address] [place] [phone] Lumbar radiculopathy Discharge Disposition: Home Social History [...] [facility] [address] [place] [address] Sacroiliitis, not elsewhere classified Pending Results Name Type Priority Associated Diagnoses Date /Time MR lumbar spine without contrast Imaging Routine Lumbar radiculopathy 12/03/2024 7:47 AM EDT Scheduled Orders Name Type Priority Associated Diagnoses Orde r Schedule MR lumbar spine without contrast Imaging Routine Lumbar radiculopathy Once for 1 Occurrences starting 12/03/2024 until 12/03/2024 documented as of this encounter Goals Goal Patient Goal Type Associated Problems Recent Progress Patient-Stated? Author Improve mobility General Yes Lakia Ochoa, RN Note: Evaluation of progress towards goal: Maximize work with PT at discharge to strengthen R knee documented as of this encounter Visit Diagnoses Diagnosis Lumbar radiculopathy Thoracic or lumbosacral neuritis or radiculitis, unspecified Sacroiliitis, not elsewhere classified documented in this encounter Care Teams Gallery Manager Relationship Specialty Start Date End Date Mason Membreno MD [address] [place] [id number] PCP - General Internal Medicine 12/14/18 documented as of this encounter
--- OUTSIDE RECORDS SUMMARY | 2024-12-04 03:13 | XMS_ITS | Continuity of Care Document ---
Author Name [facility] Organization [facility] Care Team Providers Care Adult Manager Name Role Phone [facility] Unavailable Unavailable Problems Combined list of problems from Department of Defense and [facility] facilities. It does not include entries that were removed or entered in error. Problem Status Onset Date Problem Type Date of Resolution Comments Source AF- Atrial Fibrillation (SCT [id number]) Active Condition [facility] CAD - Coronary Artery Disease ([facility] [id number]) Active Condition [facility] Chronic kidney disease stage 4 Active Condition [facility] Diabetes mellitus Active Condition [facility] Elevated PSA Active Condition [facility] Exposure to Potentially Hazardous Substance ([facility] [id number]) Active Condition [facility] Gastroesophageal reflux disease Active Condition [facility] H/O: osteoarthritis Active Condition [facility] Hyperlipidemia Active Condition [facility] Hyperopia Active Condition [facility] Hypertension Active Condition [facility] Long-term current use of anticoagulant Active Condition [facility] Nuclear sclerotic cataract Active Condition [facility] Obstructive sleep apnea syndrome Active Condition [facility] Presbyopia Active Condition [facility] Renal Impairment ([facility] [id number]) Active Condition [facility] Tinnitus Active Condition [facility] Tremor Active Condition [facility] Vitamin D deficiency Active Condition [facility] Diagnosis: ICD-10-CM N18.30 Chronic kidney disease, stage 3 unspecified Active Diagnosis [facility] Diagnosis: ICD-10-CM I48.91 Unspecified atrial fibrillation Active Diagnosis [facility] Diagnosis: ICD-10-CM N17.0 Acute kidney failure with tubular necrosis Active Diagnosis [facility] Diagnosis: ICD-10-CM R42 Dizziness and giddiness Active Diagnosis [facility] Diagnosis: ICD-10-CM Z00.8 Encounter for other general examination Active Diagnosis [facility] Diagnosis: ICD-10-CM N18.32 Chronic kidney disease, stage 3b Active Diagnosis [facility] Diagnosis: ICD-10-CM R14.3 Flatulence Active Diagnosis [facility] Diagnosis: ICD-10-CM H25.813 Combined forms of age-related cataract, bilateral Active Diagnosis [facility] Diagnosis: ICD-10-CM Z01.818 Encounter for other preprocedural examination Active Diagnosis [facility] Diagnosis: ICD-10-CM H25.811 Combined forms of age-related cataract, right eye Active Diagnosis [facility] Diagnosis: ICD-10-CM E11.9 Type 2 diabetes mellitus without complications Active Diagnosis [facility] Diagnosis: ICD-10-CM N18.4 Chronic kidney disease, stage 4 (severe) Active Diagnosis [facility] Diagnosis: ICD-10-CM G47.33 Obstructive sleep apnea (adult) (pediatric) Active Diagnosis [facility] Diagnosis: ICD-10-CM Z71.9 Counseling, unspecified Active Diagnosis [facility] Diagnosis: ICD-10-CM E11.8 Type 2 diabetes mellitus with unspecified complications Active Diagnosis [facility] Diagnosis: ICD-10-CM Z46.1 Encounter for fitting and adjustment of hearing aid Active Diagnosis [facility] Medications Combined list of outpatient medications from Department of Defense and Veterans 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Medications provided include 1) outpatient medications from the last 15 months, and 2) patient-reported medications. Medication Details Route Status Patient Instructions Prescription Expires Prescription Number Last Dispense Date Ordering Provider Order Date Order Qty Source AMYLASE 180,000UNIT /LIPASE 36,000UNIT/ PROTEAS 114,000UNIT CAP,EC TAKE 2 CAPSULES BY MOUTH THREE TIMES A DAY FOR PANCREAT IC INSUFFIC IENCY WITH MEALS TO HELP DIGESTIO N ORAL DISCONT INUED BY PROVIDE R 09/16/2024 [id number] 4 SUHAIL NEGRON MD 2023 540 [facility] APIXABAN 5MG TAB TAKE ONE TABLET BY MOUTH TWICE A DAY FOR STROKE PREVENTI ON TO TREAT OR PREVENT CLOT ORAL SUSPEND ED 03/06/2025 [id number] 5 SUHAIL NEGRON MD 2023 180 [facility] APIXABAN 5MG TAB TAKE ONE TABLET BY MOUTH TWICE A DAY TO TREAT OR PREVENT CLOT ORAL DISCONT INUED 02/16/2024 [id number] 4 SUHAIL NEGRON MD 2022 180 [facility] APIXABAN 5MG TAB TAKE ONE TABLET BY MOUTH TWICE A DAY TO TREAT OR PREVENT CLOT ORAL DISCONT INUED (EDIT) 03/06/2025 [id number] 4 SUHAIL NEGRON MD 2023 180 [facility] ATORVASTATI N CA 40MG TAB TAKE ONE TABLET BY MOUTH ONCE DAILY FOR CHOLESTE ROL ORAL ACTIVE 11/29/2025 [id number] 5 SUHAIL NEGRON MD 2024 90 [facility] ATORVASTATI N CA 40MG TAB TAKE ONE TABLET BY MOUTH ONCE DAILY FOR CHOLESTE ROL ORAL DISCONT INUED 08/16/2024 [id number] 5 SUHAIL NEGRON MD 2023 90 [facility] CHOLECALCIF PEGGY 25MCG (1,000UNIT) TAB TAKE TWO TABLETS BY MOUTH ORAL ACTIVE SUHAIL NEGRON MD 2017 [facility] CITALOPRAM HYDROBROMID E 20MG TAB TAKE ONE TABLET BY MOUTH ONCE DAILY FOR MOOD ORAL ACTIVE 09/24/2025 [id number] 5 SUHAIL NEGRON MD 2024 30 [facility] CITALOPRAM HYDROBROMID E 20MG TAB TAKE ONE TABLET BY MOUTH ONCE DAILY FOR MOOD ORAL DISCONT INUED 03/06/2025 [id number] 5 SUHAIL NEGRON MD 2023 30 [facility] CITALOPRAM HYDROBROMID E 20MG TAB TAKE ONE TABLET BY MOUTH ONCE DAILY FOR MOOD ORAL DISCONT INUED (EDIT) 08/16/2024 [id number] 4 SUHAIL NEGRON MD 2023 30 [facility] EMPAGLIFLOZ IN 25MG TAB TAKE ONE-HALF TABLET BY MOUTH ONCE DAILY FOR DIABETES ORAL ACTIVE 03/06/2025 [id number] 5 SUHAIL NEGRON MD 2023 45 [facility] EMPAGLIFLOZ IN 25MG TAB TAKE ONE-HALF TABLET BY MOUTH ONCE DAILY FOR DIABETES ORAL DISCONT INUED (EDIT) 08/16/2024 [id number] 4 SUHAIL NEGRON MD 2023 45 [facility] FINASTERIDE 5MG TAB TAKE ONE TABLET BY MOUTH ONCE DAILY FOR PROSTATE (NOTE: WOMEN WHO ARE, OR MAY BECOME, , SHOULD NOT HANDLE CRUSHED OR BROKEN TABLETS) ORAL 08/16/2024 [id number] 5 SUHAIL NEGRON MD 2023 90 [facility] GABAPENTIN 300MG CAP TAKE ONE CAPSULE BY MOUTH TWICE A DAY FOR NERVE PAIN IN THE EVENING AND AT BEDTIME ORAL DISCONT INUED (EDIT) 07/22/2024 [id number] 4 SUHAIL NEGRON MD 2023 60 [facility] GABAPENTIN 400MG CAP TAKE ONE CAPSULE BY MOUTH TWICE A DAY FOR NERVE PAIN IN THE EVENING AND AT BEDTIME ORAL ACTIVE 02/07/2025 [id number] 5 SUHAIL NEGRON MD 2023 180 [facility] INSULIN,GLA RGINE,HUMAN 100 UNIT/ML INJ,SOLOSTA R,3ML INJECT 15UNITS UNDER THE SKIN ONCE DAILY FOR DIABETES DISCARD PENS 28 DAYS AFTER FIRST USE SUBCUT ANEOUS ACTIVE 06/15/2025 [id number] 5 SUHAIL NEGRON MD 2024 5 [facility] INSULIN,GLA RGINE,HUMAN 100 UNIT/ML INJ,SOLOSTA R,3ML INJECT 20 UNITS UNDER THE SKIN ONCE DAILY FOR DIABETES DISCARD PENS 28 DAYS AFTER FIRST USE SUBCUT ANEOUS DISCONT INUED (EDIT) 06/14/2025 [id number] 5 SUHAIL NEGRON MD 2024 5 [facility] INSULIN,GLA RGINE,HUMAN 100 UNIT/ML INJ,SOLOSTA R,3ML INJECT 20 UNITS UNDER THE SKIN ONCE DAILY FOR DIABETES DISCARD PENS 28 DAYS AFTER FIRST USE ONE TIME FILL FOR BACKORDE R SUBCUT ANEOUS DISCONT INUED 05/20/2024 [id number] 4 SUHAIL NEGRON MD 2023 5 [facility] INSULIN,GLA RGINE-YFGN 100UNIT/ML INJ PEN,3ML INJECT 20 UNITS UNDER THE SKIN ONCE DAILY FOR DIABETES DISCARD PENS 28 DAYS AFTER FIRST USE SUBCUT ANEOUS DISCONT INUED 03/06/2025 [id number] 4 SUHAIL NEGRON MD 2023 5 [facility] INSULIN,GLA RGINE-YFGN 100UNIT/ML INJ PEN,3ML INJECT 20 UNITS UNDER THE SKIN ONCE DAILY FOR DIABETES DISCARD PENS 28 DAYS AFTER FIRST USE SUBCUT ANEOUS DISCONT INUED 02/16/2024 [id number] 4 SUHAIL NEGRON MD 2022 5 [facility] LISINOPRIL 10MG TAB TAKE ONE TABLET BY MOUTH ONCE DAILY TO PROTECT KIDNEYS ORAL DISCONT INUED (EDIT) 02/16/2025 [id number] 4 Leonardo JEAN 2023 30 [facility] LISINOPRIL 20MG TAB TAKE ONE TABLET BY MOUTH ONCE DAILY ORAL ACTIVE 11/16/2025 [id number] 5 Leonardo JEAN 2024 90 [facility] LISINOPRIL 20MG TAB TAKE ONE TABLET BY MOUTH ONCE DAILY TO PROTECT KIDNEYS ORAL DISCONT INUED (EDIT) 03/07/2025 [id number] 4 Leonardo JEAN 2023 90 [facility] LISINOPRIL 40MG TAB TAKE ONE TABLET BY MOUTH ONCE DAILY TO PROTECT KIDNEYS ORAL DISCONT INUED (EDIT) 03/31/2025 [id number] 5 Leonardo JEAN 2023 90 [facility] METOPROLOL SUCCINATE 50MG TAB,SA TAKE ONE TABLET BY MOUTH TWICE A DAY FOR HEART ORAL ACTIVE 03/31/2025 [id number] 4 Leonardo JEAN 2023 180 [facility] METOPROLOL SUCCINATE 50MG TAB,SA TAKE ONE TABLET BY MOUTH TWICE A DAY FOR HEART ORAL DISCONT INUED 02/16/2025 [id number] 4 Leonardo JEAN 2023 60 [facility] METOPROLOL TARTRATE 50MG TAB TAKE ONE TABLET BY MOUTH TWICE A DAY FOR HEART RATE REPLACES CARVEDIL OL ORAL DISCONT INUED BY PROVIDE R 11/01/2024 [id number] 4 Leonardo JEAN 2023 60 [facility] NITROGLYCER IN 0.4MG TAB,SUBLING UAL DISSOLVE ONE TABLET UNDER THE TONGUE NEEDED FOR CHEST PAIN. IF NO IMPROVEM ENT AFTER FIRST DOSE CALL 911. MAY TAKE ADDITION AL DOSES 5 MINUTES APART. SUBLIN GUAL ACTIVE 03/06/2025 [id number] 4 SUHAIL NEGRON MD 2023 100 [facility] PANTOPRAZOL E NA 40MG TAB,EC TAKE ONE TABLET BY MOUTH TWICE A DAY FOR HEARTBUR N IN THE MORNING AND AT NOON 30 MINUTES BEFORE A MEAL ORAL ACTIVE 03/06/2025 [id number] 5 SUHAIL NEGRON MD 2023 180 [facility] PANTOPRAZOL E NA 40MG TAB,EC TAKE ONE TABLET BY MOUTH TWICE A DAY FOR HEARTBUR N IN THE MORNING AND AT NOON 30 MINUTES BEFORE A MEAL ORAL DISCONT INUED 03/10/2024 [id number] 4 SUHAIL NEGRON MD 2023 180 [facility] PREDNISOLON E ACETATE 1% SUSP,OPH INSTILL 1 DROP IN RIGHT EYE FOUR TIMES A DAY FOR INFLAMMA TION OF THE EYE ([place] BEFORE EACH USE) OPHTHA LMIC ACTIVE 06/09/2025 [id number] 5 Pili MANCUSO 2024 10 [facility] RANOLAZINE 500MG TAB,SA TAKE ONE TABLET BY MOUTH TWICE A DAY FOR HEART RHYTHM FOR CHEST PAIN ORAL ACTIVE 03/06/2025 [id number] 5 SUHAIL NEGRON MD 2023 180 [facility] RANOLAZINE 500MG TAB,SA TAKE ONE TABLET BY MOUTH TWICE A DAY FOR CHEST PAIN ORAL DISCONT INUED (EDIT) 06/29/2024 [id number] 4 SUHAIL NEGRON MD 2023 60 [facility] SEMAGLUTIDE 0.25MG/0.37 5ML INJ,SOLN,PE N,3ML INJECT 0.5MG UNDER THE SKIN ONCE EVERY WEEK FOR DIABETES REPLAC ES LIRAGLUT EMILY SUBCUT ANEOUS ACTIVE 10/30/2025 [id number] 5 SUHAIL NEGRON MD 2024 1 [facility] SEMAGLUTIDE 0.25MG/0.37 5ML INJ,SOLN,PE N,3ML INJECT 0.5MG UNDER THE SKIN ONCE EVERY WEEK FOR DIABETES REPLAC ES LIRAGLUT EMILY SUBCUT ANEOUS DISCONT INUED 05/10/2025 [id number] 5 SUHAIL NEGRON MD 2024 1 [facility] SEMAGLUTIDE 0.25MG/0.37 5ML INJ,SOLN,PE N,3ML INJECT 0.5MG UNDER THE SKIN ONCE EVERY WEEK FOR DIABETES REPLAC ES LIRAGLUT EMILY SUBCUT ANEOUS DISCONT INUED 11/29/2024 [id number] 4 SUHAIL NEGRON MD 2023 1 [facility] SPIRONOLACT ONE 25MG TAB TAKE ONE TABLET BY MOUTH EVERY DAY FOR BLOOD PRESSURE ORAL ACTIVE 04/28/2025 [id number] 5 Leonardo JEAN 2023 30 [facility] SPIRONOLACT ONE 25MG TAB TAKE ONE-HALF TABLET BY MOUTH EVERY DAY FOR BLOOD PRESSURE ORAL DISCONT INUED (EDIT) 03/31/2025 [id number] 4 Leonardo JEAN 2023 15 [facility] SPIRONOLACT ONE 25MG TAB TAKE ONE-HALF TABLET BY MOUTH EVERY DAY FOR BLOOD PRESSURE ORAL DISCONT INUED BY PROVIDE R 09/07/2024 [id number] 4 Leonardo JEAN 2023 45 [facility] TAMSULOSIN HCL 0.4MG CAP TAKE ONE CAPSULE BY MOUTH EVERY EVENING FOR URINATIO N FOR PROSTATE (TAKE 30 MINUTES AFTER THE SAME MEAL EACH DAY) ORAL 08/11/2024 [id number] 5 SUHAIL NEGRON MD 2023 90 [facility] Allergies, Adverse Reactions, Alerts Combined list of allergies from Department of Defense and Veterans 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 It does not include entries that were removed or entered in error. Substance Category Reaction Severity Reaction type Status Date Reported Comments Source ISOSORBIDE Propensity to adverse reactions to drug (finding) Bradycardia active 2 [facility] Immunizations Combined list of available immunizations from the Department of Defense and Veterans 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 Immunization Series Date Given Administered By Site Reaction Lot Number CVX Code Drug Compress Engineer Status Comments Source RSV, BIVALENT, PROTEIN SUBUNIT RSVPREF, DILUENT RECONSTITUTED , 0.5 ML, PF 2023 [facility] LEFT DELTO ID [id number] 305 complet ed [facility] INFLUENZA, HIGH-DOSE, QUADRIVALENT, PF 2023 197 complet ed HISTORICA L INFORMATI ON - FROM OTHER [facility], [facility] COVID-19 (PFIZER), MRNA, LNP-S, PF, EUGENIA-SUCROSE, 30 MCG/0.3 ML (AGES 12+ YEARS) 2023 309 complet ed HISTORICA L INFORMATI ON - FROM OTHER [facility], [facility] INFLUENZA, HIGH-DOSE, QUADRIVALENT 2022 EDUARD ROMERO LEFT DELTO ID [id number] A 197 complet ed [facility] INFLUENZA VACCINE, QUADRIVALENT, ADJUVANTED 2021 [facility] LEFT DELTO ID [id number] 205 complet ed [facility] COVID-19 (MODERNA), MRNA, LNP-S, BIVALENT BOOSTER, PF, 50 MCG/0.5 ML OR 25MCG/0.25 ML DOSE 2021 229 complet ed Booster for Series, HISTORICA L INFORMATI ON - [facility], HIGH DOSE SEASONAL 7 2021 135 complet ed HISTORICA L INFORMATI ON - FROM OTHER REGISTRY, [facility] COVID-19 (MODERNA), MRNA, LNP-S, PF, 100 MCG/0.5ML DOSE OR 50 MCG/0.25ML DOSE 3 2021 207 complet ed HISTORICA L INFORMATI ON - FROM OTHER REGISTRY, [facility] COVID-19 (MODERNA), MRNA, LNP-S, PF, 100 MCG/0.5 ML DOSE 3 2020 207 complet ed MOD; [id number]; 2 [facility] INFLUENZA VACCINE, QUADRIVALENT, ADJUVANTED 2020 205 complet ed [facility] INFLUENZA, HIGH DOSE SEASONAL 6 2020 135 complet ed HISTORICA L INFORMATI ON - FROM OTHER REGISTRY, [facility] COVID-19 (MODERNA), MRNA, LNP-S, PF, 100 MCG/0.5 ML DOSE 2 2020 207 complet ed MOD; [id number]; 1 [facility] COVID-19 (MODERNA), MRNA, LNP-S, PF, 100 MCG/0.5ML DOSE OR 50 MCG/0.25ML DOSE 2 2020 207 complet ed HISTORICA L INFORMATI ON - FROM OTHER REGISTRY, [facility] COVID-19 (MODERNA), MRNA, LNP-S, PF, 100 MCG/0.5 ML DOSE 1 2020 207 complet ed MOD; [id number]; 1 [facility] INFLUENZA, SEASONAL, INJECTABLE 2019 141 complet ed HISTORICA L INFORMATI ON - FROM OTHER REGISTRY, [facility] INFLUENZA, HIGH DOSE SEASONAL 5 2019 135 complet ed HISTORICA L INFORMATI ON - FROM OTHER REGISTRY, [facility] INFLUENZA, HIGH-DOSE, QUADRIVALENT 2019 197 complet ed [facility] PNEUMOCOCCAL POLYSACCHARID E PPV23 2019 33 complet ed merck [id number] [facility] INFLUENZA, INJECTABLE, QUADRIVALENT, PRESERVATIVE FREE 2019 150 complet ed Afluria/P [id number] /11-06-19 20 [facility] INFLUENZA, HIGH DOSE SEASONAL 4 2018 135 complet ed HISTORICA L INFORMATI ON - FROM OTHER REGISTRY, [facility] ZOSTER RECOMBINANT 2 2018 187 complet ed [facility] ZOSTER RECOMBINANT 1 2017 187 complet ed [facility] ZOSTER RECOMBINANT 1 2017 187 complet ed HISTORICA L INFORMATI ON - FROM OTHER REGISTRY, [facility] INFLUENZA, HIGH DOSE SEASONAL 3 2017 135 complet ed HISTORICA L INFORMATI ON - FROM OTHER REGISTRY, [facility] PNEUMOCOCCAL CONJUGATE PCV 13 2016 133 complet ed [facility] TDAP 2016 115 complet ed [facility] INFLUENZA, SEASONAL, INTRADERMAL, PRESERVATIVE FREE 2 2016 144 complet ed HISTORICA L INFORMATI ON - FROM OTHER REGISTRY, [facility] INFLUENZA (HISTORICAL) 2016 88 complet ed [facility] INFLUENZA, UNSPECIFIED FORMULATION 2016 88 complet ed Afluria/S eqirus/[place] [id number] [facility] INFLUENZA, INJECTABLE, QUADRIVALENT, PRESERVATIVE FREE 1 2014 150 complet ed HISTORICA L INFORMATI ON - FROM OTHER REGISTRY, [facility] INFLUENZA (HISTORICAL) 2014 88 complet ed [facility] PNEUMOCOCCAL, UNSPECIFIED FORMULATION 2014 109 complet ed locally [facility] Results Combined list of recent chemistry, hematology and other laboratory results from Department of Defense and Veterans Affairs, ranging from 15 months to all on record, depending upon the facility. Order Name Results Value Reference Range Date Interpretation Specimen Comments Source RENAL FUNCTION PANEL (AA) CREATININE [MASS/VOLU ME] IN SERUM OR PLASMA 2.2 mg/dL 0.6 - 1.3 11/12 H Specimen Type: BLOOD Comment: R-Specimen is slightly lipemic and may cause interferenc e. See Laboratory Handbook Laboratory Interferenc es Table for more information . Ordering Provider: VICK JEAN Report Released Date/Time: Nov 02, 2024 10:33 AM Reporting Lab: [facility] [address] [facility] [place] [address] Performing Lab: [facility] [address] [facility] [place] [address] [facility] RENAL FUNCTION PANEL (AA) UREA NITROGEN [MASS/VOLU ME] IN SERUM OR PLASMA 33 mg/dL 7 - 25 11/12 H Specimen Type: BLOOD Comment: R-Specimen is slightly lipemic and may cause interferenc e. See Laboratory Handbook Laboratory Interferenc es Table for more information . Ordering Provider: VICK JEAN Report Released Date/Time: Nov 02, 2024 10:33 AM Reporting Lab: [facility] [address] [place] [address] Performing Lab: [facility] [address] [place] [address] [facility] RENAL FUNCTION PANEL (AA) GLUCOSE [MASS/VOLU ME] IN SERUM OR PLASMA 227 mg/dL 74 - 109 11/12 H Specimen Type: BLOOD Comment: R-Specimen is slightly lipemic and may cause interferenc e. See Laboratory Handbook Laboratory Interferenc es Table for more information . Ordering Provider: VICK JEAN Report Released Date/Time: Nov 02, 2024 10:33 AM Reporting Lab: [place] [address] [place] [address] Performing Lab: [facility] [address] [place] [address] [facility] RENAL FUNCTION PANEL (AA) SODIUM [MOLES/VOL UME] IN SERUM OR PLASMA 140 mmol/L 136 - 145 11/12 Specimen Type: BLOOD Comment: R-Specimen is slightly lipemic and may cause interferenc e. See Laboratory Handbook Laboratory Interferenc es Table for more information . Ordering Provider: VICK JEAN Report Released Date/Time: Nov 02, 2024 10:33 AM Reporting Lab: [facility] [address] [place] [address] Performing Lab: [facility] [address] [place] [address] [facility] RENAL FUNCTION PANEL (AA) POTASSIUM [MOLES/VOL UME] IN SERUM OR PLASMA 4.2 mmol/L 3.5 - 5.1 11/12 Specimen Type: BLOOD Comment: R-Specimen is slightly lipemic and may cause interferenc e. See Laboratory Handbook Laboratory Interferenc es Table for more information . Ordering Provider: VICK JEAN Report Released Date/Time: Nov 02, 2024 10:33 AM Reporting Lab: [facility] [address] [place] [address] Performing Lab: [facility] [address] [place] [address] [facility] RENAL FUNCTION PANEL (AA) CHLORIDE [MOLES/VOL UME] IN SERUM OR PLASMA 110 mmol/L 98 - 107 11/12 H Specimen Type: BLOOD Comment: R-Specimen is slightly lipemic and may cause interferenc e. See Laboratory Handbook Laboratory Interferenc es Table for more information . Ordering Provider: VICK JEAN Report Released Date/Time: Nov 02, 2024 10:33 AM Reporting Lab: [facility] [address] [place] [address] Performing Lab: [facility] [address] [place] [address] [facility] RENAL FUNCTION PANEL (AA) CARBON DIOXIDE, TOTAL [MOLES/VOL UME] IN SERUM OR PLASMA 23 mmol/L 21 - 31 11/12 Specimen Type: BLOOD Comment: R-Specimen is slightly lipemic and may cause interferenc e. See Laboratory Handbook Laboratory Interferenc es Table for more information . Ordering Provider: VICK JEAN Report Released Date/Time: Nov 02, 2024 10:33 AM Reporting Lab: [facility] [address] [place] [address] Performing Lab: [facility] [address] [place] [address] [facility] RENAL FUNCTION PANEL (AA) CALCIUM [MASS/VOLU ME] IN SERUM OR PLASMA 9.1 mg/dL 8.6 - 10.3 11/12 Specimen Type: BLOOD Comment: R-Specimen is slightly lipemic and may cause interferenc e. See Laboratory Handbook Laboratory Interferenc es Table for more information . Ordering Provider: VICK JEAN Report Released Date/Time: Nov 02, 2024 10:33 AM Reporting Lab: [facility] [address] [place] [address] Performing Lab: [facility] [address] [place] [address] [facility] RENAL FUNCTION PANEL (AA) PHOSPHATE [MASS/VOLU ME] IN SERUM OR PLASMA 4.1 mg/dL 2.5 - 5 11/12 Specimen Type: BLOOD Comment: R-Specimen is slightly lipemic and may cause interferenc e. See Laboratory Handbook Laboratory Interferenc es Table for more information . Ordering Provider: VICK JEAN Report Released Date/Time: Nov 02, 2024 10:33 AM Reporting Lab: [facility] [address] [place] [address] Performing Lab: [facility] [address] [place] [address] [facility] RENAL FUNCTION PANEL (AA) ALBUMIN [MASS/VOLU ME] IN SERUM OR PLASMA 4.0 g/dL 3.5 - 5.7 11/12 Specimen Type: BLOOD Comment: R-Specimen is slightly lipemic and may cause interferenc e. See Laboratory Handbook Laboratory Interferenc es Table for more information . Ordering Provider: VICK JEAN Report Released Date/Time: Nov 02, 2024 10:33 AM Reporting Lab: [facility] [address] [place] [address] Performing Lab: [facility] [address] [place] [address] [facility] RENAL FUNCTION PANEL (AA) ANION GAP 3 IN SERUM OR PLASMA 7 mmol/L 4 - 12 11/12 Specimen Type: BLOOD Comment: R-Specimen is slightly lipemic and may cause interferenc e. See Laboratory Handbook Laboratory Interferenc es Table for more information . Ordering Provider: VICK JEAN Report Released Date/Time: Nov 02, 2024 10:33 AM Reporting Lab: [facility] [address] [place] [address] Performing Lab: [facility] [address] [place] [address] [facility] RENAL FUNCTION PANEL (AA) GLOMERULAR FILTRATION RATE/1.73 SQ M.PREDICTE D [VOLUME RATE/AREA] IN SERUM, PLASMA OR BLOOD BY CREATININE AND CYSTATIN C-BASED FORMULA (CKD-EPI 2020) 31 mL/min/{ 1.73_m2} 11/12 Specimen Type: BLOOD Comment: R-Specimen is slightly lipemic and may cause interferenc e. See Laboratory Handbook Laboratory Interferenc es Table for more information . Ordering Provider: VICK JEAN Report Released Date/Time: Nov 02, 2024 10:33 AM Reporting Lab: [facility] [address] [place] [address] Performing Lab: [facility] [address] [facility] [address] [facility] MAGNESIUM MAGNESIUM [MASS/VOLU ME] IN SERUM OR PLASMA 2.3 mg/dL 1.9 - 2.7 11/01 Specimen Type: BLOOD No comment entered. Ordering Provider: VICK JEAN Report Released Date/Time: Oct 26, 2024 11:50 AM Reporting Lab: [facility] [address] [facility] [address] Performing Lab: [facility] [address] [facility] [address] [facility] RENAL FUNCTION PANEL (AA) CREATININE [MASS/VOLU ME] IN SERUM OR PLASMA 3.1 mg/dL 0.6 - 1.3 11/01 H Specimen Type: BLOOD No comment entered. Ordering Provider: VICK JEAN Report Released Date/Time: Oct 26, 2024 11:50 AM Reporting Lab: [facility] [address] [facility] [address] Performing Lab: [facility] [address] [facility] [address] [facility] RENAL FUNCTION PANEL (AA) UREA NITROGEN [MASS/VOLU ME] IN SERUM OR PLASMA 47 mg/dL 7 - 25 11/01 H Specimen Type: BLOOD No comment entered. Ordering Provider: VICK JEAN Report Released Date/Time: Oct 26, 2024 11:50 AM Reporting Lab: [facility] [address] [facility] [address] Performing Lab: [facility] [address] [place] [address] [facility] RENAL FUNCTION PANEL (AA) GLUCOSE [MASS/VOLU ME] IN SERUM OR PLASMA 155 mg/dL 74 - 109 11/01 H Specimen Type: BLOOD No comment entered. Ordering Provider: VICK JEAN Report Released Date/Time: Oct 26, 2024 11:50 AM Reporting Lab: [facility] [address] [facility] [address] Performing Lab: [facility] [address] [facility] [address] [facility] RENAL FUNCTION PANEL (AA) SODIUM [MOLES/VOL UME] IN SERUM OR PLASMA 137 mmol/L 136 - 145 11/01 Specimen Type: BLOOD No comment entered. Ordering Provider: VICK JEAN Report Released Date/Time: Oct 26, 2024 11:50 AM Reporting Lab: [address] [facility] [address] Performing Lab: [address] [facility] [address] [facility] RENAL FUNCTION PANEL (AA) POTASSIUM [MOLES/VOL UME] IN SERUM OR PLASMA 5.2 mmol/L 3.5 - 5.1 11/01 H Specimen Type: BLOOD No comment entered. Ordering Provider: VICK JEAN Report Released Date/Time: Oct 26, 2024 11:50 AM Reporting Lab: [facility] [address] [facility] [address] Performing Lab: [address] [facility] [address] [facility] RENAL FUNCTION PANEL (AA) CHLORIDE [MOLES/VOL UME] IN SERUM OR PLASMA 107 mmol/L 98 - 107 11/01 Specimen Type: BLOOD No comment entered. Ordering Provider: VICK JEAN Report Released Date/Time: Oct 26, 2024 11:50 AM Reporting Lab: [address] [address] Performing Lab: [facility] [address] [facility] [address] [facility] RENAL FUNCTION PANEL (AA) CARBON DIOXIDE, TOTAL [MOLES/VOL UME] IN SERUM OR PLASMA 23 mmol/L 21 - 31 11/01 Specimen Type: BLOOD No comment entered. Ordering Provider: VICK JEAN Report Released Date/Time: Oct 26, 2024 11:50 AM Reporting Lab: [address] [facility] [address] Performing Lab: [facility] [address] [facility] [address] [facility] [address] [facility] RENAL FUNCTION PANEL (AA) CALCIUM [MASS/VOLU ME] IN SERUM OR PLASMA 9.0 mg/dL 8.6 - 10.3 11/01 Specimen Type: BLOOD No comment entered. Ordering Provider: VICK JEAN Report Released Date/Time: Oct 26, 2024 11:50 AM Reporting Lab: [address] [facility] [address] Performing Lab: [address] [facility] [address] [facility] RENAL FUNCTION PANEL (AA) PHOSPHATE [MASS/VOLU ME] IN SERUM OR PLASMA 3.9 mg/dL 2.5 - 5 11/01 Specimen Type: BLOOD No comment entered. Ordering Provider: VICK JEAN Report Released Date/Time: Oct 26, 2024 11:50 AM Reporting Lab: [address] [facility] [address] Performing Lab: [address] [facility] [address] [facility] RENAL FUNCTION PANEL (AA) ALBUMIN [MASS/VOLU ME] IN SERUM OR PLASMA 4.3 g/dL 3.5 - 5.7 11/01 Specimen Type: BLOOD No comment entered. Ordering Provider: VICK JEAN Report Released Date/Time: Oct 26, 2024 11:50 AM Reporting Lab: [address] [facility] [address] Performing Lab: [address] [address] [facility] RENAL FUNCTION PANEL (AA) ANION GAP 3 IN SERUM OR PLASMA 7 mmol/L 4 - 12 11/01 Specimen Type: BLOOD No comment entered. Ordering Provider: VICK JEAN Report Released Date/Time: Oct 26, 2024 11:50 AM Reporting Lab: [place] [address] [facility] [address] Performing Lab: [facility] [address] [facility] [address] [facility] RENAL FUNCTION PANEL (AA) GLOMERULAR FILTRATION RATE/1.73 SQ M.PREDICTE D [VOLUME RATE/AREA] IN SERUM, PLASMA OR BLOOD BY CREATININE AND CYSTATIN C-BASED FORMULA (CKD-EPI 2020) 21 mL/min/{ 1.73_m2} 11/01 Specimen Type: BLOOD No comment entered. Ordering Provider: VICK JEAN Report Released Date/Time: Oct 26, 2024 11:50 AM Reporting Lab: [place] [address] [facility] [address] Performing Lab: [address] [facility] [address] [facility] URINALYSI S COLOR OF URINE YELLOW 11/01 Specimen Type: URINE,RANDO M No comment entered. Ordering Provider: VICK JEAN Report Released Date/Time: Oct 26, 2024 11:50 AM Reporting Lab: [place] [address] [facility] [address] Performing Lab: [place] [address] [facility] [address] [facility] URINALYSI S SPECIFIC GRAVITY OF URINE 1.021 1.003 - 1.035 11/01 Specimen Type: URINE,RANDO M No comment entered. Ordering Provider: VICK JEAN Report Released Date/Time: Oct 26, 2024 11:50 AM Reporting Lab: [place] [address] [facility] [address] Performing Lab: [place] [address] [facility] [address] [facility] URINALYSI S UROBILINOG EN [UNITS/VOL UME] IN URINE BY TEST STRIP 1.0 {Angela 'U}/dL 0.2 - 2.0 11/01 Specimen Type: URINE,RANDO M No comment entered. Ordering Provider: VICK JEAN Report Released Date/Time: Oct 26, 2024 11:50 AM Reporting Lab: [facility] [address] [facility] [address] Performing Lab: [facility] [address] [facility] [address] [facility] URINALYSI S BILIRUBIN. TOTAL [PRESENCE] IN URINE BY TEST STRIP NEGATIVE 11/01 Specimen Type: URINE,RANDO M No comment entered. Ordering Provider: VICK JEAN Report Released Date/Time: Oct 26, 2024 11:50 AM Reporting Lab: [facility] [address] [facility] [address] Performing Lab: [facility] [address] [facility] [address] [facility] URINALYSI S KETONES [PRESENCE] IN URINE NEGATIVE 11/01 Specimen Type: URINE,RANDO M No comment entered. Ordering Provider: VICK JEAN Report Released Date/Time: Oct 26, 2024 11:50 AM Reporting Lab: [facility] [address] [facility] [address] Performing Lab: [facility] [address] [facility] [address] [facility] URINALYSI S GLUCOSE [MASS/VOLU ME] IN URINE BY TEST STRIP 3+ 11/01 Specimen Type: URINE,RANDO M No comment entered. Ordering Provider: VICK JEAN Report Released Date/Time: Oct 26, 2024 11:50 AM Reporting Lab: [facility] [address] [facility] [address] Performing Lab: [facility] [address] [facility] [address] [facility] URINALYSI S PROTEIN [PRESENCE] IN URINE BY TEST STRIP 1+ 11/01 Specimen Type: URINE,RANDO M No comment entered. Ordering Provider: VICK JEAN Report Released Date/Time: Oct 26, 2024 11:50 AM Reporting Lab: [facility] [address] [place] [address] Performing Lab: [facility] [address] [place] [address] [facility] URINALYSI S PH OF URINE BY TEST STRIP 5.0 5.0 - 9.0 11/01 Specimen Type: URINE,RANDO M No comment entered. Ordering Provider: VICK JEAN Report Released Date/Time: Oct 26, 2024 11:50 AM Reporting Lab: [facility] [address] [place] [address] Performing Lab: [facility] [address] [place] [address] [facility] URINALYSI S HEMOGLOBIN [PRESENCE] IN URINE BY TEST STRIP NEGATIVE 11/01 Specimen Type: URINE,RANDO M No comment entered. Ordering Provider: VICK JEAN Report Released Date/Time: Oct 26, 2024 11:50 AM Reporting Lab: [facility] [address] [place] [address] Performing Lab: [facility] [address] [place] [address] [facility] URINALYSI S NITRITE [PRESENCE] IN URINE BY TEST STRIP NEGATIVE 11/01 Specimen Type: URINE,RANDO M No comment entered. Ordering Provider: VICK JEAN Report Released Date/Time: Oct 26, 2024 11:50 AM Reporting Lab: [facility] [address] [place] [address] Performing Lab: [facility] [address] [place] [address] [facility] URINALYSI S LEUKOCYTE ESTERASE [PRESENCE] IN URINE BY TEST STRIP NEGATIVE 11/01 Specimen Type: URINE,RANDO M No comment entered. Ordering Provider: VICK JEAN Report Released Date/Time: Oct 26, 2024 11:50 AM Reporting Lab: [facility] [address] [place] [address] Performing Lab: [facility] [address] [place] [address] [facility] URINALYSI S CLARITY OF URINE CLEAR 11/01 Specimen Type: URINE,RANDO M No comment entered. Ordering Provider: VICK JEAN Report Released Date/Time: Oct 26, 2024 11:50 AM Reporting Lab: [facility] [address] [place] [address] Performing Lab: [facility] [address] [place] [address] [facility] URINALYSI S ERYTHROCYT ES [#/AREA] IN URINE SEDIMENT BY MICROSCOPY HIGH POWER FIELD 0-2/[HPF ] 0 - 2 11/01 Specimen Type: URINE,RANDO M No comment entered. Ordering Provider: VICK JEAN Report Released Date/Time: Oct 26, 2024 11:50 AM Reporting Lab: [facility] [address] [facility] [address] Performing Lab: [facility] [address] [place] [address] [facility] URINALYSI S LEUKOCYTES [#/AREA] IN URINE SEDIMENT BY MICROSCOPY HIGH POWER FIELD 0-5/[HPF ] 0 - 5 11/01 Specimen Type: URINE,KENNEYO M No comment entered. Ordering Provider: VICK JEAN Report Released Date/Time: Oct 26, 2024 11:50 AM Reporting Lab: [facility] [address] [facility] [address] Performing Lab: [facility] [address] [place] [address] [facility] URINALYSI S BACTERIA [#/AREA] IN URINE SEDIMENT BY AUTOMATED COUNT None Seen/[HP F] 11/01 Specimen Type: URINE,RANDO M No comment entered. Ordering Provider: VICK JEAN Report Released Date/Time: Oct 26, 2024 11:50 AM Reporting Lab: [facility] [address] [place] [address] Performing Lab: [facility] [address] [place] [address] [facility] URINALYSI S TOTAL CASTS 0-2/[LPF ] 0 - 5 11/01 Specimen Type: URINE,RANDO M No comment entered. Ordering Provider: VICK JEAN Report Released Date/Time: Oct 26, 2024 11:50 AM Reporting Lab: [facility] [address] [facility] [address] Performing Lab: [facility] [address] [facility] [address] [facility] URINALYSI S TOTAL EPITHELIAL CELLS None Seen/[LP F] 11/01 Specimen Type: URINE,RANDO M No comment entered. Ordering Provider: IVCK JEAN Report Released Date/Time: Oct 26, 2024 11:50 AM Reporting Lab: [facility] [address] [facility] [address] Performing Lab: [facility] [address] [facility] [address] [facility] FERRITIN FERRITIN [MASS/VOLU ME] IN BLOOD 56.7 ng/mL 23.9 - 336.2 10/26 Specimen Type: BLOOD No comment entered. Ordering Provider: VICK JEAN Report Released Date/Time: Oct 23, 2024 02:38 PM Reporting Lab: [place] [id number] Performing Lab: [place] [id number] [place] [address] IRON/TIBC /FERR IRON [MASS/VOLU ME] IN SERUM OR PLASMA 51 ug/dL 50 - 212 10/26 Specimen Type: BLOOD No comment entered. Ordering Provider: VICK JEAN Report Released Date/Time: Oct 23, 2024 02:38 PM Reporting Lab: [address] [address] Performing Lab: [place] [id number] [facility] IRON/TIBC /FERR IRON BINDING CAPACITY [MASS/VOLU ME] IN SERUM OR PLASMA 272 ug/dL 240 - 450 10/26 Specimen Type: BLOOD No comment entered. Ordering Provider: VICK JEAN Report Released Date/Time: Oct 23, 2024 02:38 PM Reporting Lab: [address] [address] Performing Lab: [address] [address] [facility] IRON/TIBC /FERR FERRITIN [MASS/VOLU ME] IN BLOOD 56.7 ng/mL 23.9 - 336.2 10/26 Specimen Type: BLOOD No comment entered. Ordering Provider: VICK JEAN Report Released Date/Time: Oct 23, 2024 02:38 PM Reporting Lab: [address] [address] Performing Lab: [address] [address] [facility] IRON/TIBC /FERR TRANSFERRI N [MASS/VOLU ME] IN SERUM OR PLASMA 194 mg/dL 203 - 362 10/26 L Specimen Type: BLOOD No comment entered. Ordering Provider: VICK JEAN Report Released Date/Time: Oct 23, 2024 02:38 PM Reporting Lab: [place] [id number] Performing Lab: [address] [address] [facility] RENAL FUNCTION PANEL (AA) CREATININE [MASS/VOLU ME] IN SERUM OR PLASMA 3.4 mg/dL 0.6 - 1.3 10/26 H Specimen Type: BLOOD No comment entered. Ordering Provider: VICK JEAN Report Released Date/Time: Oct 22, 2024 02:12 PM Reporting Lab: [facility] [address] [facility] [address] Performing Lab: [facility] [address] [facility] [address] [facility] RENAL FUNCTION PANEL (AA) UREA NITROGEN [MASS/VOLU ME] IN SERUM OR PLASMA 50 mg/dL 7 - 25 10/26 H Specimen Type: BLOOD No comment entered. Ordering Provider: VICK JEAN Report Released Date/Time: Oct 22, 2024 02:12 PM Reporting Lab: [facility] [address] [facility] [address] Performing Lab: [facility] [address] [place] [address] [facility] RENAL FUNCTION PANEL (AA) GLUCOSE [MASS/VOLU ME] IN SERUM OR PLASMA 139 mg/dL 74 - 109 10/26 H Specimen Type: BLOOD No comment entered. Ordering Provider: VICK JEAN Report Released Date/Time: Oct 22, 2024 02:12 PM Reporting Lab: [facility] [address] [place] [address] Performing Lab: [facility] [address] [place] [address] [facility] RENAL FUNCTION PANEL (AA) SODIUM [MOLES/VOL UME] IN SERUM OR PLASMA 139 mmol/L 136 - 145 10/26 Specimen Type: BLOOD No comment entered. Ordering Provider: VICK JEAN Report Released Date/Time: Oct 22, 2024 02:12 PM Reporting Lab: [place] [address] [place] [address] Performing Lab: [place] [address] [place] [address] [facility] RENAL FUNCTION PANEL (AA) POTASSIUM [MOLES/VOL UME] IN SERUM OR PLASMA 5.5 mmol/L 3.5 - 5.1 10/26 H Specimen Type: BLOOD No comment entered. Ordering Provider: VICK JEAN Report Released Date/Time: Oct 22, 2024 02:12 PM Reporting Lab: [place] [address] [place] [address] Performing Lab: [place] [address] [place] [address] [facility] RENAL FUNCTION PANEL (AA) CHLORIDE [MOLES/VOL UME] IN SERUM OR PLASMA 109 mmol/L 98 - 107 10/26 H Specimen Type: BLOOD No comment entered. Ordering Provider: VICK JEAN Report Released Date/Time: Oct 22, 2024 02:12 PM Reporting Lab: [place] [address] [place] [address] Performing Lab: [place] [address] [place] [address] [facility] RENAL FUNCTION PANEL (AA) CARBON DIOXIDE, TOTAL [MOLES/VOL UME] IN SERUM OR PLASMA 24 mmol/L 21 - 31 10/26 Specimen Type: BLOOD No comment entered. Ordering Provider: VICK JEAN Report Released Date/Time: Oct 22, 2024 02:12 PM Reporting Lab: [facility] [address] [place] [address] Performing Lab: [facility] [address] [place] [address] [facility] RENAL FUNCTION PANEL (AA) CALCIUM [MASS/VOLU ME] IN SERUM OR PLASMA 8.8 mg/dL 8.6 - 10.3 10/26 Specimen Type: BLOOD No comment entered. Ordering Provider: VICK JEAN Report Released Date/Time: Oct 22, 2024 02:12 PM Reporting Lab: [facility] [address] [place] [address] Performing Lab: [facility] [address] [place] [address] [facility] RENAL FUNCTION PANEL (AA) PHOSPHATE [MASS/VOLU ME] IN SERUM OR PLASMA 3.3 mg/dL 2.5 - 5 10/26 Specimen Type: BLOOD No comment entered. Ordering Provider: VICK JEAN Report Released Date/Time: Oct 22, 2024 02:12 PM Reporting Lab: [facility] [address] [place] [address] Performing Lab: [facility] [address] [place] [address] [facility] RENAL FUNCTION PANEL (AA) ALBUMIN [MASS/VOLU ME] IN SERUM OR PLASMA 3.8 g/dL 3.5 - 5.7 10/26 Specimen Type: BLOOD No comment entered. Ordering Provider: VICK JEAN Report Released Date/Time: Oct 22, 2024 02:12 PM Reporting Lab: [facility] [address] [facility] [address] Performing Lab: [facility] [address] [place] [address] [facility] RENAL FUNCTION PANEL (AA) ANION GAP 3 IN SERUM OR PLASMA 6 mmol/L 4 - 12 10/26 Specimen Type: BLOOD No comment entered. Ordering Provider: VICK JEAN Report Released Date/Time: Oct 22, 2024 02:12 PM Reporting Lab: [facility] [address] [place] [address] Performing Lab: [facility] [address] [facility] [address] [facility] RENAL FUNCTION PANEL (AA) GLOMERULAR FILTRATION RATE/1.73 SQ M.PREDICTE D [VOLUME RATE/AREA] IN SERUM, PLASMA OR BLOOD BY CREATININE AND CYSTATIN C-BASED FORMULA (CKD-EPI 2020) 19 mL/min/{ 1.73_m2} 10/26 Specimen Type: BLOOD No comment entered. Ordering Provider: VICK JEAN Report Released Date/Time: Oct 22, 2024 02:12 PM Reporting Lab: [facility] [address] [facility] [address] Performing Lab: [facility] [address] [facility] [address] [facility] PTH (INTACT) PARATHYRIN .INTACT [MASS/VOLU ME] IN SERUM OR PLASMA 116.7 pg/mL 12.0 - 88.0 10/26 H Specimen Type: BLOOD No comment entered. Ordering Provider: VICK JEAN Report Released Date/Time: Oct 23, 2024 02:38 PM Reporting Lab: [address] [address] Performing Lab: [address] [address] [facility] TOTAL 25-HYDROX Y VITAMIN D 25-HYDROXY VITAMIN D3 [MASS/VOLU ME] IN SERUM OR PLASMA 39.4 ng/mL 30 - 100 10/26 Specimen Type: BLOOD No comment entered. Ordering Provider: VICK JEAN Report Released Date/Time: Oct 23, 2024 02:38 PM Reporting Lab: [address] [address] Performing Lab: [address] [address] [facility] MAGNESIUM MAGNESIUM [MASS/VOLU ME] IN SERUM OR PLASMA 1.9 mg/dL 1.9 - 2.7 10/26 Specimen Type: BLOOD No comment entered. Ordering Provider: VICK JEAN Report Released Date/Time: Oct 23, 2024 02:38 PM Reporting Lab: [facility] [address] [facility] [address] Performing Lab: [facility] [address] [facility] [address] [facility] Vital Signs Combined list of inpatient and outpatient Vital Signs from Department of Defense and Veterans Affairs, ranging from 12 months to all on record, depending upon the facility. Vital Sign Value Date Comments Source PAIN 0 11/15/2024 08:51:00 [facility] PAIN 0 07/05/2024 10:04:00 [facility] SYSTOLIC BLOOD PRESSURE 130 07/04/2024 14:43:43 [facility] DIASTOLIC BLOOD PRESSURE 82 07/04/2024 14:43:43 [facility] PULSE OXIMETRY 96 07/04/2024 14:43:43 [facility] WEIGHT 205.91 07/04/2024 14:43:43 [facility] BMI 31 kg/m2 07/04/2024 14:43:43 [facility] HEIGHT 67.992 07/04/2024 14:43:43 [facility] PULSE 54 07/04/2024 14:43:43 [facility] SYSTOLIC BLOOD PRESSURE 137 06/05/2024 12:53:12 [facility] DIASTOLIC BLOOD PRESSURE 80 06/05/2024 12:53:12 [facility] PULSE 52 06/05/2024 12:53:12 [facility] RESPIRATION 18 06/05/2024 12:53:12 [facility] SYSTOLIC BLOOD PRESSURE 164 03/05/2024 08:56:31 [facility] DIASTOLIC BLOOD PRESSURE 98 03/05/2024 08:56:31 [facility] PULSE OXIMETRY 98 03/05/2024 08:56:31 [facility] WEIGHT 197.98 03/05/2024 08:56:31 [facility] BMI 30 kg/m2 03/05/2024 08:56:31 [facility] PAIN 10 03/05/2024 08:56:31 [facility] TEMPERATURE 96.8 03/05/2024 08:56:31 [facility] PULSE 50 03/05/2024 08:56:31 [facility] RESPIRATION 16 03/05/2024 08:56:31 [facility] Encounters Combined list of: 1) Encounters from Department of Veterans Affairs facilities going backup to the last 18 months, not all [place] inpatient encounters are included; 2) Encounters from the Department of [facility] facilities going backup to 280 months. Location Location Details Encounter Type Encounter Number Reason For Visit Attending Provider ADM Date DC Date Status Disposition Source [facility] HEARING AID REPAIR/MOD IFYING [id number] Diagnos is: ICD-10- CM Z46.1 Encount er for fitting and adjustm ent of hearing aid Avis ESCALONA 06/15 [place] Outpatient Encounter [id number] 06/23 [facility] Out[facility] Encounter [id number] 06/23 ARCELIA NOGUERA [facility] Outpatient Encounter [id number] 06/29 [facility] Outpatient Encounter [id number] 06/29 [facility] Outpatient Encounter [id number] 06/30 [facility] Outpatient Encounter [id number] 07/01 [place] Outpatient Encounter [id number] 07/21 [facility] Outpatient Encounter [id number] 07/23 [facility] Outpatient Encounter [id number] 08/04 [facility] ORTHOTIC MGMT&TRAIN G 1ST ENC [id number] Diagnos is: ICD-10- CM E11.8 Type 2 diabete s mellitu s with unspeci fied complic ations 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 INSPECTOR,CH STACIE 08/10 [facility] OFFICE O/P EST MOD 30 MIN [id number] Diagnos is: ICD-10- CM N18.32 Chronic kidney disease , stage 3b ZULMA JEAN EDITHOMAR 08/10 [facility] POS AIRWAY PRESSURE CPAP [id number] [id number] Diagnos is: ICD-10- CM G47.33 Obstruc tive sleep apnea (adult) (pediat chioma) RA IDA ORR 08/10 [facility] Outpatient Encounter [id number] 08/10 [facility] Outpatient Encounter [id number] 08/15 [facility] Outpatient Encounter [id number] Diagnos is: ICD-10- CM 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.9 Scanning 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 ing, unspeci fied ANGELINA SUH 08/15 [facility] OFFICE O/P EST HI 40 MIN [id number] [id number] Diagnos is: ICD-10- CM E11.9 Type 2 diabete s mellitu s without complic ations SUHAIL HOWARD MD 08/15 [place] Outpatient Encounter [id number] 08/21 [facility] Outpatient Encounter [id number] [id number] 08/23 [facility] Outpatient Encounter [id number] [id number] GENNY POLANCO 08/30 [facility] ORTHC/PROS TC MGMT SBSQ ENC [id number] [id number] Diagnos is: ICD-10- CM E11.9 Type 2 diabete s mellitu s without complic ations RUSS HALLMAN 08/30 [place] Outpatient Encounter [id number] 08/30 [facility] Outpatient Encounter [id number] [id number] 08/31 [facility] Outpatient Encounter [id number] [id number] KEVIN BUCKNER JR 09/14 [facility] POS AIRWAY PRESSURE CPAP [id number] [id number] Diagnos is: ICD-10- CM G47.33 Obstruc tive sleep apnea (adult) (pediat chioma) Maryuri WELSH 09/20 [facility] Outpatient Encounter [id number] [id number] 10/18 [place] Outpatient Encounter [id number] [id number] 11/27 [facility] MTMS BY PHARM TALENT DEVELOPMENT CONSULTANT 15 MIN [id number] [id number] TESS MOORE 12/01 [facility] Outpatient Encounter [id number] [id number] 01/11 [place] Outpatient Encounter [id number] [id number] LESLY IGLESIAS 02/06 [facility] Outpatient Encounter [id number] [id number] MAJOR RIDDLE 02/10 [facility] OFFICE O/P EST HI 40 MIN [id number] [id number] Diagnos is: ICD-10- CM N18.4 Chronic kidney disease , stage 4 (severe ) ZULMA JEAN 02/15 [facility] Outpatient Encounter [id number] [id number] 02/26 [facility] Outpatient Encounter [id number] [id number] 02/26 [facility] Outpatient Encounter [id number] [id number] 03/05 [facility] OFFICE O/P EST HI 40 MIN [id number] Diagnos is: ICD-10- CM E11.9 Type 2 diabete s mellitu s without complic ations SUHAIL HOWARD MD 03/05 [place] MTMS BY PHARM TALENT DEVELOPMENT CONSULTANT 15 MIN [id number] [id number] OTONIEL CHURCH S 03/05 [facility] Outpatient Encounter [id number] [id number] Camilo QUINTEROS 03/05 [facility] Outpatient Encounter [id number] [id number] 03/22 [facility] COMPRE OPH EXAM EST PT 1/> [id number] [id number] Diagnos is: ICD-10- CM E11.9 Type 2 diabete s mellitu s without complic ations RENNY MULLEN OD 04/10 [place] SELF-MGMT EDUC/TRAIN 2-4 [place] [id number] [id number] Diagnos is: ICD-10- CM E11.9 Type 2 diabete s mellitu s without complic ations JAIR CRUZ 04/12 [facility] Outpatient Encounter [id number] 05/01 [facility] Outpatient Encounter [id number] [id number] 05/08 [facility] Outpatient Encounter [id number] [id number] 05/08 [facility] MTMS BY PHARM ADDL 15 MIN [id number] [id number] Diagnos is: ICD-10- CM E11.9 Type 2 diabete s mellitu s without complic ations MAUANITAALICE 05/10 [facility] Outpatient Encounter [id number] 05/11 [facility] Outpatient Encounter [id number] [id number] 05/15 [facility] OFFICE O/P NEW MOD 45 MIN [id number] [id number] Diagnos is: ICD-10- CM 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, right eye CHACORTA LENNON KELY 06/05 [facility] OFFICE O/P EST MOD 30 MIN [id number] [id number] Diagnos is: ICD-10- CM Z01.818 Encount er for other preproc edural examina TAMRA Limon 06/05 [facility] OFFICE O/P EST SF 10 MIN [id number] [id number] Diagnos is: ICD-10- CM H25.813 Combine d forms of age-rel ated catarac t, bilater ANTONIO Rose 06/05 [facility] Outpatient Encounter [id number] [id number] 06/11 [facility] Outpatient Encounter [id number] [id number] CLINICOMP, CIS 06/14 [facility] Outpatient Encounter [id number] [id number] 06/14 [facility] Outpatient Encounter [id number] [id number] 06/14 [facility] NQHP OL DIG ASSMT&MGMT 21+ [id number] Diagnos is: ICD-10- CM R14.3 Flatule JUAN Campos JENNIFER 06/21 [place] Outpatient Encounter [id number] [id number] 07/03 [facility] Outpatient Encounter [id number] [id number] 07/03 [facility] Outpatient Encounter [id number] [id number] 07/04 [facility] OFFICE O/P EST MOD 30 MIN [id number] [id number] Diagnos is: ICD-10- CM N18.32 Chronic kidney disease , stage 3b ZULMA JEAN 07/05 [facility] Outpatient Encounter [id number] 07/11 [place] Outpatient Encounter [id number] [id number] 07/11 [facility] Outpatient Encounter [id number] [id number] 07/17 [facility] Outpatient Encounter [id number] [id number] 08/01 [facility] Outpatient Encounter [id number] [id number] 08/07 [facility] OFF/OP EST MAY X REQ PHY/QHP [id number] [id number] Diagnos is: ICD-10- CM Z00.8 Encount er for other general examina QUANG Gimenez 08/10 [place] Outpatient Encounter [id number] [id number] 10/16 [facility] Outpatient Encounter [id number] [id number] Diagnos is: ICD-10- CM R42 Dizzine ss and giddine ss RA JESSICA OCAMPO S 10/16 [facility] Outpatient Encounter [id number] [id number] 10/22 [facility] Outpatient Encounter [id number] [id number] 10/23 [facility] SYNCH AUDIO-ONLY EST MOD 30 [id number] [id number] Diagnos is: ICD-10- CM N17.0 Acute kidney failure with tubular necrosi s ZULMA JEAN 10/26 [facility] NQHP OL DIG ASSMT&MGMT 5-10 [id number] [id number] Diagnos is: ICD-10- CM I48.91 Unspeci fied atrial fibrill ation Jann KAM 10/29 [facility] OFFICE O/P EST MOD 30 MIN [id number] [id number] Diagnos is: ICD-10- CM N18.30 Chronic kidney disease , stage 3 unspeci fied TEDZULMA FFOMAR 11/15 [facility] Social History Combined list of available smoking, tobacco, and other social history from Department of Defense and Veterans 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 Social History Type Response Date Comment Sourc e Tobacco smoking status GAIS RI-TOBACCO NEVER USED 08/16/2023 [facility] of [facility] 04/21/2022 [facility] History of tobacco use RI-TOBACCO NEVER USED 04/28/2021 [facility] History of tobacco use RI-TOBACCO NEVER USED 05/29/2019 [facility] History of tobacco use RI-TOBACCO NEVER USED 12/15/2017 [facility] History of tobacco use LIFETIME NON-USER OF TOBACCO 08/18/2017 [facility] History of tobacco use LIFETIME NON-USER OF TOBACCO 09/01/2016 [facility] History of tobacco use LIFETIME NON-USER OF TOBACCO 08/21/2015 [facility] Plan of Care List of future care activities from Department of Veterans 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 Additional future care activities may be listed in the Assessment and Plan section. Date/Time Care Activity Care Activity Detail Facili ty 04/05/2025 AMBULATORY - SURGERY AMBULATORY - SURGERY [facility]
--- OUTSIDE RECORDS SUMMARY | 2024-12-04 08:15 | XMS_ITS | Encounter Summary ---
Author Organization [facility] Address [address] [place] [address] Care Team Providers Care Nuclear Equipment Design Engineer Name Role Phone Mason Membreno MD Unavailable [phone] Mason Membreno MD Primary Care Provider [phone] Allyssa Aguilar LPN Unavailable Encounter Details Date Type Department Care Team (Late Contact Info) Description 01/10/2024 Abstract [facility] [address] [facility] [address] [place] [id number] Mason Membreno MD 112 [facility] [address] [place] [address] Social History Tobacco Use Types Packs/Day Years Used Date Smoking Tobacco: Never Smokeless Tobacco: Never Alcohol Use Standard Drinks/Week Comments Never 0 (1 standard drink = 0.6 oz pur e alcohol) caffeine yes type : soda AUDIT-C Answer Date Recorded Q1: How often do you have a drink containing alcohol? Never 10/06/2022 Q2: How many drinks containi ng alcohol do you have on a typical day when you are drinking? Patient does not drink Q3: How often do you have si x or more drinks on one occasion? Never 10/06/2022 PHQ-2 Answer Date Recorded Patient Health Questionnaire-2 Score 0 11/24/2022 Sex and Gender Information Value Date Recorded Sex Assigned at Not on file Legal Sex Male 7:01 PM EDT Gender Identity Not on file Sexual Orientation Not on file documented as of this encounter Plan of Treatment Upcoming Encounters Date Type Department Care Team (Late Contact Info) Description 12/05/2024 9:00 AM EDT Office Visit [facility] [place] [facility] [address] [facility] [address] [place] [address] Mason Membreno MD [address] [facility] [address] [place] [address] 01/17/2025 8:30 AM EDT Office Visit [facility] [address] [place] [address] [place] [address] Kyrie Montes De Oca, DPM [address] [facility] [address] [place] [address] 02/07/2025 8:30 AM EDT Office Visit [facility] [place] [facility] [address] [facility] [address] [place] [address] Mason Membreno MD [address] [facility] [address] [place] [address] 02/12/2025 9:30 AM EDT Office Visit [facility] [place] [facility] [address] [facility] [address] [place] [address] Syed White MD [address] [facility] [address] [place] [address] documented as of this encounter Visit Diagnoses Not on filedocumented in this encounter Care Teams Nuclear Equipment Design Engineer Relationship Specialty Start Date End Date Mason Membreno MD [address] [facility] [address] [place] [address] PCP - ACO Reach 09/30/22 Mason Membreno MD [address] [place] [address] [place] [address] PCP - General Internal Medicine 10/06/22 Allyssa Aguilar LPN [address] [facility] [address] [place] [address] 11/16/24 11/20/24 documented as of this encounter
--- OUTSIDE RECORDS SUMMARY | 2024-12-04 08:16 | XMS_ITS | Clinical Summary ---
Author Organization [facility] Address [address] [place] [address] Care Team Providers Care Communications Scientist Name Role Phone Mason Membreno MD Primary Care Provider [phone] Allergies Active Allergy Reactions Criticality Noted Date Comments Aspartame Diarrhea 01/27/2024 Isosorbide Mononitrate Other 04/21/2022 Profound hypotension after single 30 mg dose. Isosorbide Other 04/21/2022 Other reaction(s): High blood pressure Profound hypotension after single 30 mg dose. Medications atorvastatin (Lipitor) 40 mg tablet Take 40 mg by mouth at bedtime. 2 Active citalopram (CeleXA) 20 mg tablet Take 20 mg by mouth in the morning. 0 Active gabapentin (Neurontin) 300 mg capsule TAKE 1 CAPSULE BY MOUTH EVERYDAY AT BEDTIME 2 Active insulin glargine (Lantus) 100 unit/mL injection Inject 35 Units under the skin in the morning. 3 Active pantoprazole (ProtoNix) 40 mg EC tablet pantoprazole 40 mg tablet,delayed release TAKE 1 TABLET BY MOUTH EVERY DAY Active semaglutide (Ozempic) 1 mg/dose (2 mg/1.5 mL) pen injector 0.5 mg 1 (one) time per week. tuesday Active tamsulosin (Flomax) 0.4 mg 24 hr capsule tamsulosin 0.4 mg capsule TAKE 1 CAPSULE BY MOUTH ONCE DAILY Active finasteride (Proscar) 5 mg tablet Take 5 mg by mouth at bedtime. Do not crush, chew, or split. Active nitroglycerin (Nitrostat) 0.[address] 0.4 mg under the tongue every 5 (five) minutes if needed for chest pain. 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 30 tablet 2 Active Additional Information Patient taking differently: 12.5 mg oral Daily, Continue home prescription dose of 1/2 tablet daily., Reported on 05/19/2022 ranolazine (Ranexa) 500 mg 12 hr tabletIndication s:Stable angina Take 1 tablet (500 mg) by mouth in the morning and at bedtime. Do not crush, chew, or split. 180 tablet 3 3 Active lisinopril 20 mg tablet Take 40 mg by mouth in the morning. Active metoprolol tartrate (Lopressor) 50 mg tablet Take 50 mg by mouth two times daily. 4 Active spironolactone (Aldactone) 25 mg tablet Take 25 mg by mouth in the morning. 4 Active Eliquis 5 mg tabletIndication s:Paroxysmal atrial fibrillation (CMS/HCC) Take 1 tablet (5 mg) by mouth in the morning and at bedtime. 180 tablet 3 4 Active aspirin 81 mg EC tabletIndication s:Coronary artery disease involving [place] coronary artery of [place] heart without angina pectoris Take 1 tablet (81 mg) by mouth in the morning. 90 tablet 3 5 026 Active Active Problems Problem Noted Date Diagnosed Date Flatulence 07/11/2024 Diarrhea 10/10/2023 Hypertensive urgency 06/30/2023 06/30/2023 Melena 06/30/2023 06/30/2023 NSTEMI (non-ST elevated myocardial infarction) 0 06/30/2023 06/30/2023 Vitreous degeneration, left eye 06/30/2023 06/30/2023 Encounter for fitting and adjustment of hearing aid 03/30/2023 03/30/2023 Idiopathic chronic pancreatitis 03/16/2023 03/30/2023 Exposure to potentially hazardous substance 08/202203/30/2023 Primary localized osteoarthrosis of ankle and fo ot 02/09/2023 06/30/2023 Diabetes mellitus 01/19/2023 01/19/2023 Disorder of the skin and subcutaneous tissue, un specified 01/19/2023 01/19/2023 H/O: osteoarthritis 01/19/2023 01/19/2023 Hyperopia 01/19/2023 01/19/2023 Nuclear sclerotic cataract 01/19/202301/19 Obstructive sleep apnea syndrome 01/19/2023 01/19/2023 Encounter for immunization 01/19/202301/19 Presbyopia 01/19/2023 01/19/2023 Sensorineural hearing loss, bilateral 01/19/2023 01/19/2023 Tinnitus 01/19/2023 01/19/2023 Tremor 01/19/2023 01/19/2023 Vitamin D deficiency 01/19/2023 01/19/2023 B12 deficiency 12/07/2022 01/19/2023 Overview (01/19/2023): Last Assessment & Plan: Add B12 SL 2/week. Anticoagulated 11/17/2022 11/17/2022 Atypical small acinar proliferation of prostate 11/17/2022 11/17/2022 Bilateral varicoceles 11/17/2022 11/17/2022 Glucosuria 11/17/2022 11/17/2022 Headaches, cluster 11/17/2022 11/17/2022 LLQ pain 11/17/2022 11/17/2022 Renal cyst 11/17/2022 11/17/2022 Testicular pain 11/17/2022 11/17/2022 Diverticulitis 10/06/2022 11/17/2022 Contracture, right ankle 10/06/2022 023 Diabetic nephropathy with proteinuria 10/06/2022 11/17/2022 Disturbance in sleep behavior 10/06/2022 Diverticulosis of large intestine without hemorr blaise 10/06/2022 11/17/2022 Indigestion 10/06/2022 11/17/2022 Neuropathy due to type 2 diabetes mellitus 10/0611/17/2022 Osteoarthritis of right foot 10/06/202204/2023 Peripheral venous insufficiency 10/06/2022 11/17/2022 Stable angina 05/04/2022 Abnormal stress test 04/28/2022 Overview (04/28/2022): Added automatically from request for surgery [id number] Abnormal MRI 04/21/2022 Dysuria 04/21/2022 Microhematuria 04/21/2022 Elevated PSA 04/21/2022 Incomplete bladder emptying 04/21/2022 Frequent urination 04/21/2022 Head injury 04/21/2022 Nocturia 04/21/2022 Weak urinary stream 04/21/2022 Urge incontinence 04/21/2022 Urinary urgency 04/21/2022 Paroxysmal atrial fibrillation 04/27/2021 Mild intermittent asthma 10/16/2020 Benign essential tremor 08/07/2020 Polyneuropathy 08/07/2020 Acquired hallux valgus 07/24/2020 Diabetic mononeuropathy 07/24/2020 Deformity of metatarsal 07/10/2020 Constipation 07/13/2019 Lower urinary tract symptoms due to benign prostatic hyperplasia 05/16/2019 11/17/2022 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 12/13/2018 Obesity with body mass index 30 or greater 12/1311/17/2022 Sacroiliitis 09/01/2018 11/17/2022 Acute sinusitis 07/20/2018 Deviated nasal septum 07/20/2018 Nasal obstruction 07/20/2018 Leukocytosis 05/10/2018 Type 2 diabetes mellitus without complication Diverticular disease of colon 03/29/2018 Osteoarthritis of right knee 07/04/2017 Aortic valve regurgitation 06/14/2017 Reactive airway disease 05/05/2017 Acute stress reaction 05/04/2017 Major depressive disorder, single episode, unspe cified 05/04/2017 Coronary artery disease invo lving [place] coronary artery of [place] heart with angina pectoris 02/23/2017 Spondylosis of cervical kamala on without myelopathy or radiculopathy 08/17/2016 Cervical stenosis of spine 08/17/2016 Atherosclerosis of renal artery 06/16/2016 LVH (left ventricular hypert rophy) due to hypertensive disease, without heart failure 06/16/2016 Arthritis 03/08/2016 BPH with urinary obstruction 03/08/2016 Dyspnea on exertion 03/08/2016 Edema of lower extremity 03/08/2016 Stage 3 chronic kidney disease 03/08/2016 Edema of both lower extremities 11/13/2015 Edema 11/13/2015 11/17/2022 Depressive disorder 06/13/2015 Diabetic renal disease 06/13/2015 GERD (gastroesophageal reflux disease) 6 History of DVT (deep vein thrombosis) 06/13/2015 Migraine 06/13/2015 Mixed hyperlipidemia 06/13/2015 RLS (restless legs syndrome) 06/13/2015 Heart disease 06/06/2015 Type 2 diabetes mellitus with hyperglycemia 05/10 project development manager current use of insulin 06/06/2015 Flank pain 02/23/2013 Family History Medical History Relation Name Comments Heart attack Brother No Known Problems Father Aneurysm Mother Relation Name Status Comments Brother Alive Father Mother Sister Social History Tobacco Use Types Packs/Day Years Used Date Smoking Tobacco: Never Smokeless Tobacco: Never Tobacco Cessation:Counseling Given: Not Answered Alcohol Use Standard Drinks/Week Comments Not Currently 0 (1 standard drink = 0.6 oz pur e alcohol) [place] Safety & Environment Answer Date Rec orded Fear of Current or Ex-Partner Not on file Emotionally Abused Not on file 06/30/2023 Physically Abused Not on file 06/30/2023 Sexually Abused Not on file 06/30/2023 Physically or Sexually Abused Not on file Sex and Gender Information Value Date Recorded Sex Assigned at Not on file Legal Sex Male 10:48 PM EDT Gender Identity Not on file Sexual Orientation Not on file Last Filed Vital Signs Vital Sign Reading Time Taken Comments Blood Pressure 113/77 08/15/2024 11:04 AM EDT Pulse 54 08/15/2024 11:04 AM EDT Temperature 36.5 C (97.7 F) 05/06/2022 8:00 AM EST Respiratory Rate 15 05/06/2022 8:00 AM EST Oxygen Saturation 96% 08/15/2024 11:04 AM EDT Inhaled Oxygen Concentration - - Weight 92.1 kg (203 lb) 08/15/2024 11:04 AM EDT Height 172.7 cm (5' 8 ) 08/15/2024 11:04 AM EDT Body Mass Index 30.87 08/15/2024 11:04 AM EDT Plan of Treatment Health Maintenance Due Date Last Done Comments CT Colonography 1952 Colonoscopy 1952 Colorectal Cancer Screening 1952 FIT-DNA 1952 FIT 1952 FOBT 1950 Medicare Annual Wellness (AWV) 1952 Sigmoidoscopy 1952 Diabetes: Retinopathy Screening 1962 Depression Screening 1964 Fall Risk Screening 2017 COVID-19 Vaccine ( season) 2024 06/23/2023, 03/27/2022, 08/25/2021, Additional history exists Diabetes: Hemoglobin A1C 09/10/2024 06/13/2024, 08/08 Influenza Vaccine (#1) 2025 , 04/04/2023, 04/21/2022, Additional history exists Adult Tetanus 02/24/2027 02/24/2017 Zoster Vaccines Completed 11/23/2018, 12/0 11/2017, 04/10/2018 Pneumococcal Vaccine: 50+ Years Completed 01/28/2020, 02/24/2017, 12/07/2014, Additional history exists HIB Vaccines Aged Out No longer eligi ble based on patient's age to complete this topic HPV Vaccines Aged Out No longer eligi ble based on patient's age to complete this topic IPV Vaccines Aged Out No longer eligi ble based on patient's age to complete this topic Meningococcal B Vaccine Aged Out No l onger eligible based on patient's age to complete this topic Meningococcal Vaccine Aged Out No chris larisa eligible based on patient's age to complete this topic Rotavirus Vaccines Aged Out No longer eligible based on patient's age to complete this topic Insurance [facility] [address] MEDICARE Advance Directives * Full Code (Latest Code Status on File) Date Activated Date Inactivated Comments 05/04/2022 4:42 PM 05/06/2022 3:21 PM Care Teams Communications Scientist Relationship Specialty Start Date End Date Mason Membreno MD [address] [address] PCP - General 04/20/22
--- OUTSIDE RECORDS SUMMARY | 2024-12-04 08:16 | XMS_ITS | Encounter Summary ---
Author Organization [facility] Address [address] [place] [address] Care Team Providers Care Leather Coverer Name Role Phone Mason Membreno MD Primary Care Provider [phone] Reason for Visit * Reason Comments Med Refill Encounter Details Date Type Department Care Team (Late st Contact Info) Description 11/18/2022 Refill [facility] [address] [place] [address] Sandra Chaves MD 1000 [facility] [address] [place], [place] [id number] Coronary artery disease, unspecified vessel or lesion type, unspecified whether angina present, unspecified whether igiugig or transplanted heart Social History Tobacco Use Types Packs/Day Years Used Date Smoking Tobacco: Never Smokeless Tobacco: Never Alcohol Use Standard Drinks/Week Comments Not Currently 0 (1 standard drink = 0.6 oz pur e alcohol) moderate Sex and Gender Information Value Date Recorded Sex Assigned at Not on file Legal Sex Male 10:48 PM EDT Gender Identity Not on file Sexual Orientation Not on file documented as of this encounter Plan of Treatment Not on file documented as of this encounter Visit Diagnoses Diagnosis Coronary artery disease, unspecified vessel or lesion type, unspecified whether angina present, unspecified whether igiugig or transplanted heart documented in this encounter Care Teams Leather Coverer Relationship Specialty Start Date End Date Mason Membreno MD 112 [facility] [place] [address] [place] [address] PCP - General 04/20/22 documented as of this encounter
--- OUTSIDE RECORDS SUMMARY | 2024-12-04 08:16 | XMS_ITS | Clinical Summary ---
Author Organization [facility] Address [address] [place] [address] Phone Care Team Providers Care Chair Post Machine Operator Name Role Phone Mason Membreno MD Primary Care Provider [phone] Social History Tobacco Use Types Packs/Day Years Used Date Smoking Tobacco: Never Assessed Sex and Gender Information Value Date Recorded Sex Assigned at Not on file Legal Sex Male 6:29 AM EST Gender Identity Not on file Sexual Orientation Not on file Plan of Treatment Health Maintenance Due Date Last Done Comments CT Colonography 1952 Colonoscopy 1952 Colorectal Cancer Screening 1952 FIT-DNA (Cologuard) 1952 FIT 1952 Lipid Panel 1952 Sigmoidoscopy 1952 Hepatitis C Screening 1970 DTaP/Tdap/Td Vaccines (1 - Tdap) 1974 Zoster Vaccines (1 of 2) 2002 RSV High Risk: (Elderly (60+) or Population) (1 - Risk 60-74 years 1-dose series) 2012 Pneumococcal Vaccine (2 of 2 - PCV) 03/09/2018 03/09/2017 Yearly Adult Physical 08/20/2022 08/19/2021 , 08/18/2020, 07/30/2019, Additional history exists COVID-19 Vaccine (2 - 2023- season) 2024 06/25/2020 Influenza Vaccine (#1) 2025 0, 02/08/2018, 01/07/2018, Additional history exists HIB Vaccines Aged Out No longer eligi ble based on patient's age to complete this topic HPV Vaccines Aged Out No longer eligi ble based on patient's age to complete this topic Hepatitis A Vaccines Aged Out No long er eligible based on patient's age to complete this topic Hepatitis B Vaccines Aged Out No long er eligible based on patient's age to complete this topic IPV Vaccines Aged Out No longer eligi ble based on patient's age to complete this topic Meningococcal Vaccine Aged Out No chris larisa eligible based on patient's age to complete this topic Rotavirus Vaccines Aged Out No longer eligible based on patient's age to complete this topic Care Teams Chair Post Machine Operator Relationship Specialty Start Date End Date Mason Membreno MD [address] [place] [id number] PCP - General 09/21/22
--- OUTSIDE RECORDS SUMMARY | 2024-12-04 08:16 | XMS_ITS | Encounter Summary ---
Author Name [facility] Organization [facility] Address [address] [place] [address] Care Team Providers Care Technical Aid Name Role Phone SUHAIL HOWARD Primary Care [...] PART B Oct 07, 2017 PART B [id number] MAURY VILLALPANDO PATIENT MEDICARE (WNR) MEDICARE (M) PART A Oct 07, 2017 PART A [id number] MAURY VILLALPANDO PATIENT MEDICARE (WNR) MEDICARE (M) PART A Oct 07, 2017 PART A [id number] MAURY VILLALPANDO PATIENT MEDICARE (WNR) MEDICARE (M) PART B Oct 07, 2017 PART B [id number] MAURY VILLALPANDO PATIENT MEDICARE (WNR) MEDICARE (M) PART B Oct 07, 2017 PART B [id number] MAURY VILLALPANDO PATIENT MEDICARE (WNR) MEDICARE (M) PART A Oct 07, 2017 PART A [id number] MAURY VILLALPANDO PATIENT [facility] FAMIL Y LORETA NIES May 09, 2020 [id number] MAURY VILLALPANDO PATIENT [facility] FMILY OF [place]ET[place] NI May 09, 2020 [id number] MAURY VILLALPANDO PATIENT Selected Encounter This section includes the information [facility] record at [facility] for the Encounter. Date/Time Encounter Type Encounter Description Reason Pro vider Source IHE Encounter Template Text not used by [facility]
--- OUTSIDE RECORDS SUMMARY | 2024-12-04 08:17 | XMS_ITS | Encounter Summary ---
Author Organization [facility] Address [address] [place] [address] Care Team Providers Care Drier Operator Helper Name Role Phone Mason Membreno MD Unavailable [phone] Mason Membreno MD Primary Care Provider [phone] Allyssa Aguilar LPN Unavailable Encounter Details Date Type Department Care Team (Late Contact Info) Description 03/30/2023 Orders Only [facility] [place] [facility] [address] [facility] [address] [place] [address] A, Unknown Practice [address] [place], [place] [id number] Social History Tobacco Use Types Packs/Day Years [...] 9:00 AM EDT Office Visit [facility] [place] [facility] [address] [facility] [address] [place] [address] Mason Membreno MD [address] [facility] [address] [place] [address] 01/17/2025 8:30 AM EDT Office Visit [facility] [address] [facility] [address] [place] [address] Kyrie Montes De Oca, DPM 3[address] [facility] [address] [place] [address] 02/07/2025 8:30 AM EDT Office Visit [facility] [place] [facility] [address] [facility] [address] [place] [address] Mason Membreno MD [address] [facility] [address] [place] [address] 02/12/2025 9:30 AM EDT Office Visit [facility] [place] [facility] [address] [facility] [address] [place] [address] Syed White MD [address] [facility] 111 [place] [address] documented as of this encounter Procedures Procedure Name Priority Date/Time Associated Diagnosis Comments HOME SLEEP TEST Routine 03/30/2023 1:50 PM EST documented in this encounter Results * Home sleep test (03/30/2023 1:50 PM EST) us Unknown Practice [facility] ORDERABLES Final Result documented in this encounter Visit Diagnoses Not on filedocumented in this encounter Care Teams Drier Operator Helper Relationship Specialty Start Date End Date Mason Membreno MD [address] [facility] [address] [place] [address] PCP - ACO Reach 09/30/22 Mason Membreno MD [address] [facility] [address] [place] [address] PCP - General Internal Medicine 10/06/22 Allyssa Aguilar LPN 112 [facility] [address] [place] [address] 11/16/24 11/20/24 documented as of this encounter
--- OUTSIDE RECORDS SUMMARY | 2024-12-04 08:17 | XMS_ITS | Encounter Summary ---
Author Organization [facility] Address [address] [place] [address] Care Team Providers Care Upper Extremity Surgeon Name Role Phone Mason Membreno MD Unavailable [phone] Mason Membreno MD Primary Care Provider Allyssa Aguilar LPN Unavailable Encounter Details Date Type Department Care Team (Late Contact Info) Description 06/17/[address] [facility] 112 [facility] 110 [place] [phone] Mason Membreno MD 112 [facility] 110 [place] [address] Social History Tobacco Use Types Packs/Day Years [...] [address] [place] [address] [place] [address] Mason Membreno MD [address] [place] [address] [place] [address] 01/17/2025 8:30 AM EDT Office Visit [facility] [address] [place] [address] [place] [address] Kyrie Montes De Oca, DPM 3006 [facility] 5 [place] [address] 02/07/2025 8:30 AM EDT Office Visit [facility] [place] [facility] [address] [facility] [address] [place] [address] Mason Membreno MD [address] [facility] [address] [place] [address] 02/12/2025 9:30 AM EDT Office Visit [facility] [place] [facility] [address] [facility] [address] [place] [address] Syed White MD 9121 [facility] 111 [place] [address] documented as of this encounter Visit Diagnoses Not on filedocumented in this encounter Care Teams Upper Extremity Surgeon Relationship Specialty Start Date End Date Mason Membreno MD [address] [facility] [address] [place] [address] PCP - ACO Reach 09/30/22 Mason Membreno MD [address] [place] [address] [place] [address] PCP - General Internal Medicine 10/06/22 Allyssa Aguilar LPN [address] [facility] [address] [place] [address] 11/16/24 11/20/24 documented as of this encounter
--- OUTSIDE RECORDS SUMMARY | 2024-12-04 08:17 | XMS_ITS | Encounter Summary ---
Author Organization [facility] Address [address] [facility] [place] [address] Care Team Providers Care Visual Artist Name Role Phone Mason Membreno MD Unavailable [phone] Mason Membreno MD Primary Care Provider [phone] Allyssa Aguilar LPN Unavailable Encounter Details Date Type Department Care Team (Late Contact Info) Description 03/09/2023 Abstract [facility] 112 [facility] 110 [place] [phone] Mason Membreno MD 112 [facility] 110 [place] [address] Social History Tobacco Use Types Packs/Day Years Used Date Smoking Tobacco: Never Smokeless Tobacco: Never Alcohol Use Standard Drinks/Week Comments Never 0 (1 standard drink = 0.6 oz pur e alcohol) AUDIT-C Answer Date Recorded Q1: How often [...] [facility] [place] [facility] [address] [facility] [address] [place] [address] Mason Membreno MD [address] [place] [address] [place] [address] 01/17/2025 8:30 AM EDT Office Visit [facility] [address] [place] [address] [place] [address] Kyrie Montes De Oca, DPM 3006 [facility] 5 [place] [address] 02/07/2025 8:30 AM EDT Office Visit [facility] [place] [facility] [address] [facility] [address] [place] [address] Mason Membreno MD [address] [facility] [address] [place] [address] 02/12/2025 9:30 AM EDT Office Visit [facility] [place] [facility] [address] [facility] [address] [place] [address] Syed White MD 5[address] [facility] 111 [place], [place] [phone] documented as of this encounter Visit Diagnoses Not on filedocumented in this encounter Care Teams Visual Artist Relationship Specialty Start Date End Date Mason Membreno MD [address] [facility] [address] [place] [address] PCP - ACO Reach 09/30/22 Mason Membreno MD [address] [facility] [address] [place] [address] PCP - General Internal Medicine 10/06/22 Allyssa Aguilar LPN [address] [facility] [address] [place] [address] 11/16/24 11/20/24 documented as of this encounter
--- OUTSIDE RECORDS SUMMARY | 2024-12-04 08:17 | XMS_ITS ---
Author Organization [facility] Address [address] [facility] [place] [address] Care Team Providers Care X Ray Examiner Of Aircraft Name Role Phone Mason Membreno MD Unavailable [phone] Mason Membreno MD Primary Care Provider [phone] Chronic Care Management (CCM) Status:Closed (Closed) Start date:11/16/2024 Enrollment date:11/16/2024 Enrollment reason:Identified by Health Plan End date:11/20/2024 Close reason:Unable to reach patient Overview Please assess for Care Management needs. Continued Care and Services Coordination
--- OUTSIDE RECORDS SUMMARY | 2024-12-04 08:17 | XMS_ITS | Encounter Summary ---
Author Organization [facility] Address [address] [facility] [place] [address] Care Team Providers Care Logistics Support Name Role Phone Mason Membreno MD Unavailable [phone] Mason Membreno MD Primary Care Provider [phone] Allyssa Aguilar LPN Unavailable Encounter Details Date Type Department Care Team (Late Contact Info) Description 03/03/2023 Abstract [facility] 112 [facility] 110 [place] [address] Mason Membreno MD 112 [facility] 110 [place] [address] Social History Tobacco Use Types Packs/Day Years [...] [facility] [place] [facility] [address] [facility] 110 [place] [address] Mason Membreno MD [address] [place] [address] [place] [address] 01/17/2025 8:30 AM EDT Office Visit [facility] [address] [place] [address] [place] [address] Kyrie Montes De Oca, DPM 3006 [facility] 5 [place] [address] 02/07/2025 8:30 AM EDT Office Visit [facility] [place] [facility] [address] [facility] 110 [place] [address] Mason Membreno MD [address] [facility] 110 [place] [address] 02/12/2025 9:30 AM EDT Office Visit [facility] [place] [facility] [address] [facility] 310 [place] [address] Syed White MD 1837 [facility] 111 [place], [place] [id number] documented as of this encounter Visit Diagnoses Not on filedocumented in this encounter Care Teams Logistics Support Relationship Specialty Start Date End Date Mason Membreno MD [address] [facility] 110 [place] [address] PCP - ACO Reach 09/30/22 Mason Membreno MD [address] [facility] 110 [place] [address] PCP - General Internal Medicine 10/06/22 Allyssa Aguilar LPN [address] [facility] 110 [place] [address] 11/16/24 11/20/24 documented as of this encounter
--- OUTSIDE RECORDS SUMMARY | 2024-12-04 08:17 | XMS_ITS | Encounter Summary ---
Author Organization [facility] Address [address] [place] [address] Care Team Providers Care Project Manager Interior Design Name Role Phone Mason Membreno MD Unavailable [phone] Mason Membreno MD Primary Care Provider [phone] Allyssa Aguilar LPN Unavailable Encounter Details Date Type Department Care Team (Late Contact Info) Description 03/29/2023 Abstract [facility] 112 [facility] 110 [place] [id number] Mason Membreno MD 112 [facility] 110 [place] [address] Social History Tobacco Use Types Packs/Day Years [...] [address] [place] [address] [place] [address] Mason Membreno MD [address] [place] [address] [place] [address] 01/17/2025 8:30 AM EDT Office Visit [facility] [address] [place] [address] [place] [address] Kyrie Montes De Oca, DPM 3006 [facility] 5 [place] [address] 02/07/2025 8:30 AM EDT Office Visit [facility] [place] [facility] [address] [facility] 110 [place] [address] Mason Membreno MD [address] [facility] 110 [place] [address] 02/12/2025 9:30 AM EDT Office Visit [facility] [place] [facility] [address] [facility] 310 [place] [address] Syed White MD 3054 [facility] 111 [place] [address] documented as of this encounter Visit Diagnoses Not on filedocumented in this encounter Care Teams Project Manager Interior Design Relationship Specialty Start Date End Date Mason Membreno MD [address] [facility] 110 [place] [address] PCP - ACO Reach 09/30/22 Mason Membreno MD [address] [place] [address] [place] [address] PCP - General Internal Medicine 10/06/22 Allyssa Aguilar LPN [address] [facility] 110 [place] [address] 11/16/24 11/20/24 documented as of this encounter
--- OUTSIDE RECORDS SUMMARY | 2024-12-04 08:18 | XMS_ITS | Encounter Summary ---
Author Organization [facility] Address [address] [facility] [place] [address] Care Team Providers Care Occupational Health Professional Name Role Phone Mason Membreno MD Unavailable [phone] Mason Membreno MD Primary Care Provider [phone] Allyssa Aguilar LPN Unavailable Encounter Details Date Type Department Care Team (Late Contact Info) Description 02/25/2023 Abstract [facility] 112 [facility] 110 [place] [address] Mason Membreno MD 112 [facility] 110 [place] [address] Social History Tobacco Use Types Packs/Day Years [...] [facility] [place] [facility] [address] [facility] 110 [place] [address] Mason Membreno MD [address] [place] [address] [place] [address] 01/17/2025 8:30 AM EDT Office Visit [facility] [address] [place] [address] [place] [address] Kyrie Montes De Oca, DPM 3006 [facility] 5 [place] [address] 02/07/2025 8:30 AM EDT Office Visit [facility] [place] [facility] [address] [facility] 110 [place] [address] Mason Membreno MD [address] [facility] 110 [place] [address] 02/12/2025 9:30 AM EDT Office Visit [facility] [place] [facility] [address] [facility] 310 [place] [address] Syed White MD 2712 [facility] 111 [place], [place] [phone] documented as of this encounter Visit Diagnoses Not on filedocumented in this encounter Care Teams Occupational Health Professional Relationship Specialty Start Date End Date Mason Membreno MD [address] [facility] 110 [place] [address] PCP - ACO Reach 09/30/22 Mason Membreno MD [address] [facility] 110 [place] [address] PCP - General Internal Medicine 10/06/22 Allyssa Aguilar LPN [address] [facility] 110 [place] [address] 11/16/24 11/20/24 documented as of this encounter
--- OUTSIDE RECORDS SUMMARY | 2024-12-04 08:18 | XMS_ITS | Encounter Summary ---
Author Organization [facility] Address [address] [facility] [place] [address] Care Team Providers Care Manager Legal Name Role Phone Mason Membreno MD Unavailable [phone] Mason Membreno MD Primary Care Provider [phone] Allyssa Aguilar LPN Unavailable Encounter Details Date Type Department Care Team (Late st Contact Info) Description 11/16/2024 Patient Outreach [facility] [address] [facility] [place] [address] Allyssa Aguilar LPN 112 [facility] 110 [place] [address] Social History Tobacco Use Types Packs/Day Years [...] Date Recorded Patient Health Questionnaire-2 Score 0 11/01/2024 Sex and Gender Information Value Date Recorded Sex Assigned at Not on file Legal Sex Male 7:01 PM EDT Gender Identity Not on file Sexual Orientation Not on file documented as of this encounter Progress Notes * Allyssa Aguilar LPN - 11/16/2024 11:42 AM EDT <November 16, 2024, 11:43 - Allyssa Aguilar LPN> Call made to pt. No answer and unable to leave voicemail d/t mailbox full.<November 20, 2024, 14:22 - Allyssa Aguilar LPN> Call to pt no answer and voicemail full. documented in this encounter Plan of Treatment Upcoming Encounters Date Type Department Care Team (Late st Contact Info) Description 12/05/2024 9:00 AM EDT [facility] [place] [facility] [address] [facility] 110 [place] [address] Mason Membreno MD [address] [facility] 110 [place] [address] 01/17/2025 8:30 AM EDT Office Visit [facility] [address] [facility] 120 [place] [address] Kyrie Montes De Oca, DPMaryuri 3006 [facility] 5 [place] [address] 02/07/2025 8:30 AM EDT Office Visit [facility] [place] [facility] [address] [facility] 110 [place] [address] Mason Membreno MD [address] [facility] 110 [place] [address] 02/12/2025 9:30 AM EDT Office Visit [facility] [place] [facility] [facility] [address] [facility] 310 [place] [address] Syed White MD 8143 [facility] 111 [place] [address] documented as of this encounter Visit Diagnoses Diagnosis Type 2 diabetes mellitus with diabetic polyneuropathy, with long-term current use of insulin (HCC)- Primary NICHOLAS (acute kidney injury) documented in this encounter Care Teams Manager Legal Relationship Specialty Start Date End Date Mason Membreno MD [address] [facility] 110 [place] [address] PCP - ACO Reach 09/30/22 Mason Membreno MD [address] [facility] 110 [place] [address] PCP - General Internal Medicine 10/06/22 Allyssa Aguilar LPN [address] [facility] 110 [place] [address] 11/16/24 11/20/24 documented as of this encounter
--- OUTSIDE RECORDS SUMMARY | 2024-12-04 08:18 | XMS_ITS | Clinical Summary ---
Author Organization [facility] Healthcare Address [address] [facility] [place] [address] Care Team Providers Care Manager Cath Lab Name Role Phone Mason Membreno MD Unavailable [phone] Mason Membreno MD Primary Care Provider [phone] Allergies Active Allergy Reactions Criticality Noted Date Comments Aspartame Diarrhea 01/27/2024 Isosorbide Nitrate Other 04/21/2022 Profound hypotension after single 30 mg dose. Medications apixaban (Eliquis) 5 MG tablet 5 mg every 12 (twelve) hours. Active Ascorbic Acid (Vitamin C) 500 MG capsule Take 1 tablet by mouth 1 (one) time each day. Active ergocalciferol (Vitamin D-2) 1.25 MG (97808 UT) capsule Take 1 capsule by mouth 1 (one) time per week. Active insulin glargine (Lantus SoloStar) 100 UNIT/ML pen Inject 15 Units under the skin in the morning. Active nitroglycerin (Nitrostat) 0.[address] 0.4 mg under the tongue every 5 (five) minutes if needed for chest pain. Active ranolazine (Ranexa) 500 MG 12 hr tablet Take 500 mg by mouth in the morning and 500 mg before bedtime. Active semaglutide (Ozempic, 0.25 or 0.5 MG/DOSE,) 2 MG/1.5ML solution pen-injector Inject under the skin 1 (one) time per week. Active tamsulosin (Flomax) 0.4 MG 24 hr capsule Take 0.4 mg by mouth 1 (one) time each day at the same time. Active finasteride (Proscar) 5 MG tablet Take 5 mg by mouth in the morning. Do not crush, chew, or split. . Active atorvastatin (Lipitor) 40 MG tabletIndications:Ro kurtis general medical examination at health care facility Take 1 tablet (40 mg) by mouth in the morning. 90 tablet 3 11/25/19 23 Active citalopram (CeleXA) 20 MG tabletIndications:Ro utine general medical examination at health care facility Take 1 tablet (20 mg) by mouth in the morning. 90 tablet 3 11/25/19 23 Active albuterol (2.5 MG/3ML) 0.083% nebulizer solutionIndications: COVID-19 Take 3 mL (2.5 mg) by nebulization every 4 (four) hours if needed for wheezing. 75 mL 3 02/23/20 23 Active pantoprazole (Protonix) 40 MG EC tabletIndications:Ga strointestinal hemorrhage, unspecified gastrointestinal hemorrhage type Take 1 tablet (40 mg) by mouth in the morning and at noon. Do not crush, chew, or split. 180 tablet 3 03/08/20 23 Active gabapentin (Neurontin) 400 MG capsuleIndications:N eurogenic pain 1 cap every evening and 1 cap at bedtime 60 capsule 11 02/07/20 24 Active lisinopril 10 MG tablet Take 10 mg by mouth Daily 02/16/20 24 Active oxyCODONE-acetaminop hen (Percocet) 5-325 MG tablet Take 1 tablet by mouth every 8 (eight) hours if needed 04/17/20 24 Active Jardiance 10 MG Take 10 mg by mouth Daily 10/20/19 25 Active amoxicillin (Amoxil) 500 MG capsule Take 500 mg by mouth in the morning and 500 mg in the evening and 500 mg before bedtime. 10/30/19 25 Active metoprolol tartrate (Lopressor) 25 MG tablet Take 12.5 mg by mouth in the morning and 12.5 mg before bedtime. Active Active Problems Problem Noted Date Diagnosed Date Hypertrophic cardiomyopathy 12/26/2023 Diarrhea 10/10/2023 Hypertensive urgency 06/30/2023 Melena 06/30/2023 NSTEMI (non-ST elevated myocardial infarction) 0 06/30/2023 Vitreous degeneration, left eye 06/30/2023 Idiopathic chronic pancreatitis 03/16/2023 Exposure to potentially hazardous substance 08/2022 Gross hematuria 02/09/2023 Post-void dribbling 02/09/2023 Primary localized osteoarthrosis of ankle and fo ot 02/09/2023 Disorder of the skin and subcutaneous tissue, un specified 01/19/2023 H/O: osteoarthritis 01/19/2023 Hyperopia 01/19/2023 Nuclear sclerotic cataract 01/19/2023 Presbyopia 01/19/2023 Sensorineural hearing loss, bilateral 01/19/2023 Tinnitus 01/19/2023 Tremor 01/19/2023 Vitamin D deficiency 01/19/2023 B12 deficiency 12/07/2022 Assessment & Plan (02/07/2024 9:54 AM EDT): (Continue B12 SL.) Assessment & Plan (02/08/2023 9:58 AM EDT): (Continue current regimen.) Assessment & Plan (12/07/2022 10:26 AM EDT): Add B12 SL 2/week. Atypical small acinar proliferation of prostate 11/17/2022 Bilateral varicoceles 11/17/2022 Glucosuria 11/17/2022 Headaches, cluster 11/17/2022 LLQ pain 11/17/2022 Renal cyst 11/17/2022 Testicular pain 11/17/2022 Acquired hallux valgus 10/06/2022 Aortic valve regurgitation 10/06/2022 Benign essential tremor 10/06/2022 Assessment & Plan (02/07/2024 9:52 AM EDT): (Continue current regimen.) Assessment & Plan (02/08/2023 9:58 AM EDT): (Continue current regimen.) Assessment & Plan (12/07/2022 10:24 AM EDT): (Continue current regimen.) Could use wrist weights prn. Benign prostatic hyperplasia with urinary obstru ction 10/06/2022 Cervical stenosis of spine 10/06/2022 Constipation 10/06/2022 Contracture, right ankle 10/06/2022 Deformity of metatarsal 10/06/2022 Depressive disorder 10/06/2022 Deviated nasal septum 10/06/2022 Diabetic mononeuropathy 10/06/2022 Diabetic nephropathy with proteinuria 10/06/2022 Disturbance in sleep behavior 10/06/2022 Diverticulosis of large intestine without hemorr blaise 10/06/2022 Edema 10/06/2022 Acute stress reaction 10/06/2022 Generalized anxiety disorder 10/06/2022 GERD (gastroesophageal reflux disease) Hypertension 10/06/2022 Hypoglycemia associated with type 2 diabetes beba litus 10/06/2022 Leukocytosis 10/06/2022 LVH (left ventricular hypert rophy) due to hypertensive disease, without heart failure 10/06/2022 Migraine 10/06/2022 Mixed hyperlipidemia 10/06/2022 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 10/06/2022 Nasal obstruction 10/06/2022 Neuropathy due to type 2 diabetes mellitus 10/06 Osteoarthritis of right foot 10/06/2022 Osteoarthritis of right knee 10/06/2022 Paroxysmal atrial fibrillation 10/06/2022 Peripheral venous insufficiency 10/06/2022 Polyneuropathy 10/06/2022 Assessment & Plan (02/08/2023 9:57 AM EDT): (q.v.) Reactive airway disease 10/06/2022 ABEL (obstructive sleep apnea) 10/06/2022 Assessment & Plan (02/07/2024 9:54 AM EDT): (Per [facility] Sleep apnea 10/06/2022 Coronary artery disease invo lving [place] coronary artery of [place] heart with angina pectoris 10/06/2022 RLS (restless legs syndrome) 10/06/2022 Assessment & Plan (02/07/2024 9:50 AM EDT): Incr GBP to 400 bid (preeti/hs). Assessment & Plan (02/08/2023 9:57 AM EDT): (Continue current regimen.) Assessment & Plan (12/07/2022 10:25 AM EDT): Stop GBP for a week, see if diarrh resolves. If yes, could try changing to GBP pill. Or change to ropinirole (but that will not help with back pain.) (Duloxetine would help with pain but may worsen RLS.) Sacroiliitis 10/06/2022 Spondylosis of cervical kamala on without myelopathy or radiculopathy 10/06/2022 Stage 3 chronic kidney disease 10/06/2022 Type 2 diabetes mellitus with hyperglycemia 09/08 Type 2 diabetes mellitus wit h diabetic chronic kidney disease 10/06/2022 Stable angina 05/04/2022 Abnormal stress test 04/28/2022 Overview (02/09/2023): Added automatically from request for surgery [id number] Abnormal MRI 04/21/2022 Dysuria 04/21/2022 Frequent urination 04/21/2022 Head injury 04/21/2022 Elevated PSA 04/21/2022 Incomplete bladder emptying 04/21/2022 Nocturia 04/21/2022 Poor urinary stream 04/21/2022 Urinary urgency 04/21/2022 Mild intermittent asthma 10/16/2020 Lower urinary tract symptoms due to benign prostatic hyperplasia 05/16/2019 Obesity with body mass index 30 or greater 12/13 Major depressive disorder, single episode, unspe cified 05/04/2017 Atherosclerosis of renal artery 06/16/2016 Arthritis 03/08/2016 Dyspnea on exertion 03/08/2016 Edema of lower extremity 03/08/2016 Edema of both lower extremities 11/13/2015 Diabetic renal disease 06/13/2015 History of DVT (deep vein thrombosis) 06/13/2015 cmm inspector current use of insulin 06/06/2015 Flank pain 02/23/2013 Resolved Problems Problem Noted Date Diagnosed Date Resolved Date Encounter for fitting and ad justment of hearing aid 02/09/2023 03/29/2023 Encounter for immunization 02/09/2023 1 05/29/2022 Acute sinusitis 10/06/2022 03/29/2023 Diverticulitis 10/06/2022 03/29/2023 Indigestion 10/06/2022 03/29/2023 Diverticular disease of colon 03/29/2018 03/29/2023 Encounters Date Type Department Care Team Description 11/16/2024 Patient Outreach [facility] [address] [place] [address] Allyssa Aguilar LPN 11/06/2024 Telephone [facility] [place] [facility] [address] [facility] [address] [place] [phone] Sheba Rodriguez PA 11/05/2024 11:30 AM EDT Office Visit [facility] [place] [facility] [address] [place] [phone] Kyrie Montes De Oca, DPMaryuri Diabetes mellitus due to underlying condition with diabetic polyneuropathy, with long-term current use of insulin (HCC) (Primary Dx); Pain due to onychomycosis of toenails of both feet; Plantar fasciitis 11/05/2024 Bamboo flowsheet [facility] [place] [facility] [address] [place] [phone] Kyrie Montes De Oca DPM 11/01/2024 10:30 AM EDT Office Visit [facility] [place] [facility] [address] [facility] [address] [place] [phone] Mason Membreno MD Acute on chronic renal insufficiency (Primary Dx) 11/01/2024 Abstract [facility] [place] [facility] [address] [facility] [address] [place] [address] Mason Membreno MD 11/01/2024 Bamboo flowsheet [facility] [place] [facility] [address] [facility] [address] [place] [address] Mason Membreno MD 11/01/2024 Travel 10/22/2024 Abstract [facility] [place] [facility] [address] [facility] [address] [place] [phone] Mason Membreno MD 10/22/2024 Patient Outreach [facility] [address] [place] [place] [address] Shaye Mejia RN 10/17/2024 Abstract [facility] [place] [facility] [address] [facility] 110 [place] [address] Mason Membreno MD 10/17/2024 Abstract [facility] [place] [address] [place] [address] Mason Membreno MD 10/17/2024 Abstract [facility] [place] [address] [place] [address] Mason Membreno MD 10/11/2024 8:30 AM EDT Office Visit [facility] [place] [address] [place] [address] Mason Membreno MD Type 2 diabetes mellitus with stage 3b chronic kidney disease, with long-term current use of insulin (HCC) (Primary Dx); Chronic kidney disease, stage 3b (CMS-HCC); Mixed hyperlipidemia 10/11/[address]amboo [address] [facility] [address] [facility] [address] [place] [address] Mason Membreno MD 10/11/2024 Travel from Last 3 Months Immunizations Immunization Administration Dates Next Due ABRYSVO - Respiratory syncyt ial virus (RSV), vaccine, bivalent, protein subunit RSV prefusion F, diluent reconstituted, 0.5 mL, PF 03/05/2024 Influenza, High Dose Seasona l, Preservative Free 03/22/2022,02/09/2021,02/12/2020,03/12,02/08/2018 Influenza, High-dose Seasona l, Quadrivalent, Preservative Free 02/27/2024,04/04/2023 Influenza, Split (incl. phani fied surface antigen) 03/11/2014 Influenza, injectable, quadr ivalent, preservative free 12/23/2014 Influenza, seasonal, injectable 02/25/2020 Influenza, seasonal, intrade rmal, preservative free 02/23/2017 Moderna Bivalent Booster Vaccination 03/27/2022 Moderna SARS-CoV-2 Vaccination 03/13/2021,2020,06/25/2020 Pneumococcal Conjugate PCV 13 02/24/2017 Pneumococcal Polysaccharide PPSV23 07/08/2014 SARS-COV-2 (COVID-19) vaccin e, mRNA, spike protein, LNP, PF, bindu-sucrose, 30 mcg/0.3 mL 06/23/2023 Tdap 02/24/2017 Zoster, Recombinant 04/10/2018 Family History Medical History Relation Name Comments Diabetes Father Diabetes Mother Stroke Mother Diabetes Sibling Hypertension Sibling Relation Name Status Comments Brother Alive 1 brother Father Mother Sibling Alive Social History Tobacco Use Types Packs/Day Years Used Date Smoking Tobacco: Never Smokeless Tobacco: Never Tobacco Cessation:Counseling Given: Yes Alcohol Use Standard Drinks/Week Comments Never 0 [...] Sign Reading Time Taken Comments Blood Pressure 130/76 11/01/2024 10:44 AM EDT Pulse 70 11/01/2024 10:44 AM EDT Temperature 38.2 C (100.8 F) 10/10/2023 3:06 PM EDT Respiratory Rate 16 11/05/2024 11:00 AM EDT Oxygen Saturation 97% 11/01/2024 10:44 AM EDT Inhaled Oxygen Concentration - - Weight 87.1 kg (192 lb) 11/05/2024 11:00 AM EDT Height 172.7 cm (5' 8 ) 11/05/2024 11:00 AM EDT Body Mass Index 29.19 11/05/2024 11:00 AM EDT Plan of Treatment Upcoming Encounters Date Type Department Care Team (Late st Contact Info) Description 12/05/2024 9:00 AM EDT Office Visit [facility] [place] [facility] [address] [place] [address] [place] [address] Mason Membreno MD 112 [facility] 110 [place] [address] 01/17/2025 8:30 AM EDT Office Visit [facility] [address] [facility] [address] [place] [address] Kyrie Montes De Oca, DPM [address] [facility] 5 [place], [place] [id number] 02/07/2025 8:30 AM EDT Office Visit [facility] [place] [facility] [address] [facility] [address] [place] [phone] Mason Membreno MD 112 [facility] 110 [place] [address] 02/12/2025 9:30 AM EDT Office Visit [facility] [place] [facility] [address] [facility] 310 [place] [address] Syed White MD [address] [facility] 111 [place], [place] [phone] Health Maintenance Due Date Last Done Comments CT Colonography 1952 FIT-DNA 1952 FIT 1952 FOBT 1950 Sigmoidoscopy 1950 Pneumococcal Vaccine: 65+ Ye ars (3 of 3 - PCV20 or PCV21) 02/24/2022 02/24/2017, 07/08/2014 Influenza Vaccine (#1) 2025 4, 04/04/2023, 03/22/2022, Additional history exists Diabetes: Hemoglobin A1C 01/11/2025 062 025, 06/13/2024, 02/27/2024, Additional history exists Medicare Annual Wellness (AWV) 02/26/2025 1 , 11/24/2022, 08/19/2021 Diabetes: Urine Protein Screening 10/26/2025 10/26/2024, 06/13/2024, 12/13/2018 Diabetes: Retinopathy Screening 04/10/2026 , 08/31/2017 Colonoscopy 02/18/2033 02/18/2023, 02/06, 03/22/2013, Additional history exists Colorectal Cancer Screening 02/18/2033 Procedures Procedure Name Priority Date/Time Associated Diagnosis Comments POCT GLYCATED HEMOGLOBIN, TOTAL Routine 10/11/2024 9:13 AM EDT Type 2 diabetes mellitus with stage 3b chronic kidney disease, with long-term current use of insulin (HCC) MICROALBUMIN / CREATININE URINE RATIO Routine 06/13/2024 COLONOSCOPY DIAGNOSTIC Routine 02/18/2023 9:18 AM EDT COLOR FUNDUS PHOTOGRAPHY - OU - BOTH EYES Routine 08/31/2017 12:00 PM EDT from Last 3 Months or Most Recently Relevant to Health Maintenance Results * POCT Glycated hemoglobin, total (10/11/2024 9:13 AM EDT) Hemoglobin A1C 5.7 Blood 10/11/2024 9:13 AM EDT us Mason Membreno MD POINT OF CARE TEST ENTER/EDIT ORDERABLES Final Result * Microalbumin / creatinine urine ratio (06/13/2024) MICROALBUMIN, URINE 48 ALB/CREAT RATIO 528 URINE CREAT 91 Urine Urine specimen obtained by clean catch procedure / Unknown 06/13/2024 us Mason Membreno MD LAB URINE ORDERABLES Final Res ult * COLONOSCOPY DIAGNOSTIC (02/18/2023 9:18 AM EDT) Anatomical Region Laterality Modality Radiographic Cherri ging Unknown Practice A IMG XR PROCEDURES Final Resul t * Color Fundus Photography - OU - Both Eyes (08/31/2017 12:00 PM EDT) Anatomical Region Laterality Modality Head Fundus Photograp hy 08/31/2017 12:0 0 PM EDT Narrative 08/31/2017 12:00 PM EDT PERFORMED AT [facility] LOCATION:[id number] NO retinopathy Procedure Note CONVERSION, GENERIC - 09/22/2022 PERFORMED AT [facility] LOCATION:[id number] NO retinopathy Mason Membreno MD OPHTH PHOTOGRAPHY Final Result from Last 3 Months or Most Recently Relevant to Health Maintenance [place] [address] MEDICARE [facility] Care Teams Manager Cath Lab Relationship Specialty Start Date End Date Mason Membreno MD [address] [facility] 110 [place] [address] PCP - ACO Reach 09/30/22 Mason Membreno MD [address] [facility] 110 [place] [address] PCP - General Internal Medicine 10/06/22
--- OUTSIDE RECORDS SUMMARY | 2024-12-04 08:18 | XMS_ITS | Encounter Summary ---
Author Organization [facility] Address [address] [facility] [place] [address] Care Team Providers Care Yarn Handler Name Role Phone Mason Membreno MD Unavailable [phone] Mason Membreno MD Primary Care Provider [phone] Allyssa Aguilar LPN Unavailable Encounter Details Date Type Department Care Team (Late Contact Info) Description 02/22/2023 Abstract [facility] 112 [facility] 110 [place] [address] Mason Membreno MD 112 [facility] 110 [place] [address] Social History Tobacco Use Types Packs/Day Years [...] [facility] [place] [facility] [address] [facility] 110 [place] [address] Mason Membreno MD [address] [place] [address] [place] [address] 01/17/2025 8:30 AM EDT Office Visit [facility] [address] [place] [address] [place] [address] Kyrie Montes De Oca, DPM 3[address] [facility] 5 [place] [address] 02/07/2025 8:30 AM EDT Office Visit [facility] [place] [facility] [address] [facility] 110 [place] [address] Mason Membreno MD [address] [facility] 110 [place] [address] 02/12/2025 9:30 AM EDT Office Visit [facility] [place] [facility] [address] [facility] [address] [place] [address] Syed White MD 8[address] [facility] 111 [place], [place] [phone] documented as of this encounter Visit Diagnoses Not on filedocumented in this encounter Care Teams Yarn Handler Relationship Specialty Start Date End Date Mason Membreno MD [address] [facility] 110 [place] [address] PCP - ACO Reach 09/30/22 Mason Membreno MD [address] [facility] 110 [place] [address] PCP - General Internal Medicine 10/06/22 Allyssa Aguilar LPN [address] [facility] 110 [place] [address] 11/16/24 11/20/24 documented as of this encounter
--- OUTSIDE RECORDS SUMMARY | 2024-12-04 08:18 | XMS_ITS | Encounter Summary ---
Author Organization [facility] Address [address] [facility] [place] [address] Care Team Providers Care Chargeback Specialist Name Role Phone Mason Membreno MD Unavailable [phone] Mason Membreno MD Primary Care Provider [phone] Allyssa Aguilar LPN Unavailable Encounter Details Date Type Department Care Team (Late Contact Info) Description 03/14/2023 Abstract [facility] 112 [facility] 110 [place] [phone] Mason Membreno MD 112 [facility] 110 [place] [address] Social History Tobacco Use Types Packs/Day Years [...] [facility] [place] [facility] [address] [facility] 110 [place] [address] Mason Membreno MD [address] [place] [address] [place] [address] 01/17/2025 8:30 AM EDT Office Visit [facility] [address] [place] [address] [place] [address] Kyrie Montes De Oca, DPM [address] [facility] 5 [place] [address] 02/07/2025 8:30 AM EDT Office Visit [facility] [place] [facility] [address] [facility] 110 [place] [address] Mason Membreno MD [address] [facility] 110 [place] [address] 02/12/2025 9:30 AM EDT Office Visit [facility] [place] [facility] [address] [facility] 310 [place] [address] Syed White MD 5919 [facility] 111 [place], [place] [phone] documented as of this encounter Visit Diagnoses Not on filedocumented in this encounter Care Teams Chargeback Specialist Relationship Specialty Start Date End Date Mason Membreno MD [address] [facility] 110 [place] [address] PCP - ACO Reach 09/30/22 Mason Membreno MD [address] [facility] [address] [place] [address] PCP - General Internal Medicine 10/06/22 Allyssa Aguilar LPN [address] [facility] [address] [place] [address] 11/16/24 11/20/24 documented as of this encounter
--- OUTSIDE RECORDS SUMMARY | 2024-12-04 08:18 | XMS_ITS | Encounter Summary ---
Author Organization [facility] Address [address] [facility] [place] [address] Care Team Providers Care Monologist Name Role Phone Mason Membreno MD Unavailable [phone] Mason Membreno MD Primary Care Provider [phone] Allyssa Aguilar LPN Unavailable Encounter Details Date Type Department Care Team (Late Contact Info) Description 02/22/2023 Abstract [facility] 112 [facility] 110 [place] [address] Mason Membreno MD 112 [facility] 110 [place] [address] Social History Tobacco Use Types Packs/Day Years [...] [facility] [place] [facility] [address] [facility] 110 [place] [address] Mason Membreno MD [address] [place] [address] [place] [address] 01/17/2025 8:30 AM EDT Office Visit [facility] [address] [place] [address] [place] [address] Kyrie Montes De Oca, DPM 3006 [facility] 5 [place] [address] 02/07/2025 8:30 AM EDT Office Visit [facility] [place] [facility] [address] [facility] 110 [place] [address] Mason Membreno MD [address] [facility] 110 [place] [address] 02/12/2025 9:30 AM EDT Office Visit [facility] [place] [facility] [address] [facility] 310 [place] [address] Syed White MD 5886 [facility] 111 [place], [place] [phone] documented as of this encounter Visit Diagnoses Not on filedocumented in this encounter Care Teams Monologist Relationship Specialty Start Date End Date Mason Membreno MD [address] [facility] 110 [place] [address] PCP - ACO Reach 09/30/22 Mason Membreno MD [address] [facility] [address] [place] [address] PCP - General Internal Medicine 10/06/22 Allyssa Aguilar LPN [address] [facility] [address] [place] [address] 11/16/24 11/20/24 documented as of this encounter
--- OUTSIDE RECORDS SUMMARY | 2024-12-04 08:18 | XMS_ITS | Encounter Summary ---
Author Organization [facility] Address [address] [place] [address] Care Team Providers Care Plastic Cutter Name Role Phone Mason Membreno MD Unavailable [phone] Mason Membreno MD Primary Care Provider [phone] Allyssa Aguilar LPN Unavailable Encounter Details Date Type Department Care Team (Late st Contact Info) Description 02/25/2023 Orders Only [facility] [place] [address] [place] [address] [place] [address] A, Unknown Practice [address] [place], [place] [address] Social History Tobacco Use Types Packs/Day Years [...] [facility] [address] [place] 110 [place] [address] Mason Membreno MD [address] [facility] 110 [place] [address] 01/17/2025 8:30 AM EDT Office Visit [facility] [address] [facility] 120 [place] [address] Kyrie Montes De Oca, DPM 3006 [facility] 5 [place] [address] 02/07/2025 8:30 AM EDT Office Visit [facility] [place] [facility] 112 [facility] 110 [place] [address] Mason Membreno MD 112 [facility] 110 [place] [address] 02/12/2025 9:30 AM EDT Office Visit [facility] [place] [facility] [address] [facility] 310 [place] [address] Syed White MD 6132 [facility] 111 [place], [place] [id number] documented as of this encounter Procedures Procedure Name Priority Date/Time Associated Diagnosis Comments ELECTROCARDIOGRAM REPORT Routine 023 9:07 AM EDT documented in this encounter Results * Electrocardiogram Report (02/24/2023 9:07 AM EDT) us Unknown Practice A IN CLINIC/BEDSIDE ORDERABLES Final Result documented in this encounter Visit Diagnoses Not on filedocumented in this encounter Care Teams Plastic Cutter Relationship Specialty Start Date End Date Mason Membreno MD [address] [facility] 110 [place] [address] PCP - ACO Reach 09/30/22 Mason Membreno MD [address] [facility] 110 [place] [address] PCP - General Internal Medicine 10/06/22 Allyssa Aguilar LPN 112 [facility] 110 [place] [address] 11/16/24 11/20/24 documented as of this encounter
--- OUTSIDE RECORDS SUMMARY | 2024-12-04 08:18 | XMS_ITS | Encounter Summary ---
Author Organization [facility] Address [address] [facility] [place] [address] Care Team Providers Care Manager Metrology Name Role Phone Mason Membreno MD Unavailable [phone] Mason Membreno MD Primary Care Provider [phone] Allyssa Aguilar LPN Unavailable Encounter Details Date Type Department Care Team (Late Contact Info) Description 02/25/2023 Abstract [facility] 112 [facility] 110 [place] [address] Mason Membreno MD 112 [facility] 110 [place] [address] Social History Tobacco Use Types Packs/Day Years [...] [facility] [place] [facility] [address] [facility] 110 [place] [address] Mason Membreno MD [address] [place] 110 [place] [address] 01/17/2025 8:30 AM EDT Office Visit [facility] [address] [place] 120 [place] [address] Kyrie Montes De Oca, DPM 3006 [facility] 5 [place] [address] 02/07/2025 8:30 AM EDT Office Visit [facility] [place] [facility] [address] [facility] 110 [place] [address] Mason Membreno MD [address] [facility] 110 [place] [address] 02/12/2025 9:30 AM EDT Office Visit [facility] [place] [facility] [address] [facility] 310 [place] [address] Syed White MD 7861 [facility] 111 [place], [place] [phone] documented as of this encounter Visit Diagnoses Not on filedocumented in this encounter Care Teams Manager Metrology Relationship Specialty Start Date End Date Mason Membreno MD [address] [facility] 110 [place] [address] PCP - ACO Reach 09/30/22 Mason Membreno MD [address] [facility] 110 [place] [address] PCP - General Internal Medicine 10/06/22 Allyssa Aguilar LPN [address] [facility] 110 [place] [address] 11/16/24 11/20/24 documented as of this encounter
--- OUTSIDE RECORDS SUMMARY | 2024-12-04 08:19 | XMS_ITS | Encounter Summary ---
Author Organization [facility] Address [address] [facility] [place] [address] Care Team Providers Care Boring Machine Operator Vertical Name Role Phone Mason Membreno MD Unavailable [phone] Mason Membreno MD Primary Care Provider [phone] Allyssa Aguilar LPN Unavailable Encounter Details Date Type Department Care Team (Late Contact Info) Description 03/01/2023 Abstract [facility] 112 [facility] 110 [place] [address] Mason Membreno MD 112 [facility] 110 [place] [address] Social History Tobacco Use Types Packs/Day Years [...] [facility] [place] [facility] [address] [facility] 110 [place] [address] Mason Membreno MD [address] [place] 110 [place] [address] 01/17/2025 8:30 AM EDT Office Visit [facility] [address] [place] 120 [place] [address] Kyrie Montes De Oca, DPM 3006 [facility] 5 [place] [address] 02/07/2025 8:30 AM EDT Office Visit [facility] [place] [facility] [address] [facility] 110 [place] [address] Mason Membreno MD [address] [facility] 110 [place] [address] 02/12/2025 9:30 AM EDT Office Visit [facility] [place] [facility] [address] [facility] 310 [place] [address] Syed White MD 0087 [facility] 111 [place], [place] [phone] documented as of this encounter Visit Diagnoses Not on filedocumented in this encounter Care Teams Boring Machine Operator Vertical Relationship Specialty Start Date End Date Mason Membreno MD [address] [facility] 110 [place] [address] PCP - ACO Reach 09/30/22 Mason Membreno MD [address] [facility] 110 [place] [address] PCP - General Internal Medicine 10/06/22 Allyssa Aguilar LPN [address] [facility] 110 [place] [address] 11/16/24 11/20/24 documented as of this encounter
--- OUTSIDE RECORDS SUMMARY | 2024-12-04 08:19 | XMS_ITS | Encounter Summary ---
Author Organization [facility] Address [address] [facility] [place] [address] Care Team Providers Care Etcher Printed Circuit Boards Name Role Phone Mason Membreno MD Unavailable [phone] Mason Membreno MD Primary Care Provider [phone] Allyssa Aguilar LPN Unavailable Encounter Details Date Type Department Care Team (Late Contact Info) Description 03/02/2023 Abstract [facility] 112 [facility] 110 [place] [address] Mason Membreno MD 112 [facility] 110 [place] [address] Social History Tobacco Use Types Packs/Day Years [...] [facility] [place] [facility] [address] [facility] 110 [place] [address] Mason Membreno MD [address] [place] 110 [place] [address] 01/17/2025 8:30 AM EDT Office Visit [facility] [address] [place] 120 [place] [address] Kyrie Montes De Oca, DPM 3006 [facility] 5 [place] [address] 02/07/2025 8:30 AM EDT Office Visit [facility] [place] [facility] [address] [facility] 110 [place] [address] Mason Membreno MD [address] [facility] 110 [place] [address] 02/12/2025 9:30 AM EDT Office Visit [facility] [place] [facility] [address] [facility] 310 [place] [address] Syed White MD 2742 [facility] 111 [place], [place] [phone] documented as of this encounter Visit Diagnoses Not on filedocumented in this encounter Care Teams Etcher Printed Circuit Boards Relationship Specialty Start Date End Date Mason Membreno MD [address] [facility] 110 [place] [address] PCP - ACO Reach 09/30/22 Mason Membreno MD [address] [facility] 110 [place] [address] PCP - General Internal Medicine 10/06/22 Allyssa Aguilar LPN [address] [facility] 110 [place] [address] 11/16/24 11/20/24 documented as of this encounter
--- OUTSIDE RECORDS SUMMARY | 2024-12-04 08:19 | XMS_ITS | Clinical Summary ---
Author Organization [facility] Address [id number] [address] [place] [address] Care Team Providers Care Living Advisor Name Role Phone Mason Membreno MD Primary Care Provider [phone] Allergies Active Allergy Reactions Criticality Noted Date Comments Isosorbide Mononitrate Other (See Comments) 04/21/2022 Profound hypotension after single 30 mg dose. Medications insulin aspart U-100 (NovoLOG U-100 Insulin aspart) 100 unit/mL injection Inject 10 Units under the skin. Slide scale Active insulin degludec 100 unit/mL solution Inject 70 Units under the skin. Active aspirin 500 MG EC tablet Take 81 mg by mouth. Active atorvastatin (LIPITOR) 40 mg tablet Take 40 mg by mouth daily. Active amLODIPine (NORVASC) 5 mg tablet Take 5 mg by mouth daily. 0 Active tamsulosin (FLOMAX) 0.4 mg capsule Take 0.4 mg by mouth. Active carvediloL (COREG) 12.5 mg tablet Take 12.5 mg by mouth 2 (two) times a day with meals. Active finasteride (PROSCAR) 5 mg tablet Take 5 mg by mouth. Active citalopram (CeleXA) 20 mg tablet Take 20 mg by mouth daily. 0 Active cloNIDine (CATAPRES) 0.1 mg tablet Take 0.1 mg by mouth 2 (two) times a day. 0 Active oxybutynin (DITROPAN) 5 mg tablet TAKE 1 TAB(S) BY MOUTH TWICE A DAY NEEDED FOR URINARY DISCOMFORT 0 Active omeprazole (PriLOSEC) 20 mg capsule Take 20 mg by mouth daily. Active liraglutide (VICTOZA) 0.6 mg/0.1 mL (18 mg/3 mL) pen injector Inject 1.8 mg under the skin daily. Active oxyCODONE-acetamin ophen (PERCOCET) 5-325 mg per tabletIndications: Tricompartment osteoarthritis of right knee One or two tablets every 6 hours as needed for pain 40 tablet 0 Active sennosides-docusat e sodium (SENOKOT-S) 8.6-50 mg Take 1 tablet by mouth 2 (two) times a day as needed for constipation. 0 Active ondansetron ODT (ZOFRAN-ODT) 8 mg disintegrating tablet Dissolve 1 tablet (8 mg total) on tongue every 8 (eight) hours as needed for nausea or vomiting. 20 tablet 0 Active Active Problems Problem Noted Date Diagnosed Date Type 2 diabetes mellitus wit h stage 3 chronic kidney disease and hypertension 10/08/2019 Coronary artery disease invo lving [place] coronary artery of [place] heart without angina pectoris 10/08/2019 Gastroesophageal reflux disease without esophagi tis 10/08/2019 Mixed hyperlipidemia 10/08/2019 Primary osteoarthritis of right knee 10/08/2019 ABEL (obstructive sleep apnea) 10/08/2019 Resolved Problems Problem Noted Date Diagnosed Date Resolved Date Chronic kidney disease (CKD) stage G3b/A2, moderately decreased glomerular filtration rate (GFR) between 30-44 mL/min/1.73 square meter and albuminuria creatinine ratio between 30-299 mg/g 10/08/2019 10/08/2019 Encounters Date Type Department Care Team Description 12/03/2024 6:54 AM EDT - 12/03/2024 11:59 PM EDT Hospital Encounter [facility] [address] [place] [address] Lumbar radiculopathy Discharge Disposition: Home 12/03/2024 6:53 AM EDT Hospital Encounter [facility] [address] [place] [address] Sacroiliitis, not elsewhere classified Discharge Disposition: Home 12/03/2024 Travel from Last 3 Months Family History Medical History Relation Name Comments Anesthesia problems Neg Hx Social History Tobacco Use Types Packs/Day Years Used Date Smoking Tobacco: Never Smokeless Tobacco: Never Tobacco Cessation:Counseling Given: Not Answered Childcare Answer Date Recorded Childcare Unknown 10/18/2018 [...] Sign Reading Time Taken Comments Blood Pressure 139/91 10/08/2019 1:26 PM EDT Pulse 56 10/08/2019 2:07 PM EDT Temperature 36.5 C (97.7 F) 12/15/2020 3:40 PM EDT Respiratory Rate 14 10/08/2019 2:07 PM EDT Oxygen Saturation 96% 10/08/2019 2:07 PM EDT Inhaled Oxygen Concentration - - Weight 89.4 kg (197 lb) 04/23/2022 10:04 AM EST Height 172.7 cm (5' 8 ) 04/23/2022 10:04 AM EST Body Mass Index 29.95 04/23/2022 10:04 AM EST Plan of Treatment Upcoming Encounters Date Type Department Care Team (Late st Contact Info) Description 12/13/2024 3:45 PM EDT Appointment [facility] [address] [place] [address] Sacroiliitis, not elsewhere classified Health Maintenance Due Date Last Done Comments Diabetic Ophthalmology Exam 1952 Statin Use: Cardiovascular 1952 Statin Use: Diabetic 1952 Depression Screening 1964 Tobacco Screening 1964 Diabetic Foot Exam 1970 Fall Risk Screening 2017 Adult BMI Screening 04/23/2023 04/23/2022 COVID-19 Vaccine (2023-2 5 season) 2024 06/23/2023, 03/27/2022, 08/25/2021, Additional history exists Influenza Vaccine 01/07/2025 02/27/2024, , 03/22/2022, Additional history exists DTaP,Tdap and Td Vaccines (2 - Td or Tdap) 02/24/2027 02/24/2017 Zoster (Shingles) Vaccine Completed 2018, 04/14/2018, 04/10/2018 Goals Goal Patient Goal Type Associated Problems Recent Progress Patient-Stated? Author Improve mobility General Yes Lakia Ochoa, RN Note: Evaluation of progress towards goal: Maximize work with PT at discharge to strengthen R knee Medical Devices Implanted Type Area Java User Interface Developer Device Identifier Shelf Expiration Date Model / Serial / Lot Brng Tib [id number] [id number] Kn Ant - [id number] Implanted:Qty : 1 on 10/08/2019 by Reji Black MD at [facility] Bearing Right: Knee [employer] 09/17/2020 [id number] / / [id number] Cmnt Bn Bio 40gm Rpl [id number] - [id number] Implanted:Qty : 1 on 10/08/2019 by Reji Black MD at [facility] Cement Right: Knee [employer] 08/07/2023 [id number] / / [id number] Cmnt Bn Bio 40gm Rpl [id number] +[id number] - [id number] Implanted:Qty : 1 on 10/08/2019 by Reji Black MD at [facility] Cement Right: Knee [employer] 08/07/2023 [id number] / / [id number] Ty Tib 79mm Cocr Kn I Beam - [id number] Implanted:Qty : 1 on 10/08/2019 by Reji Black MD at [facility] Orthopedic Implant Right: Knee [employer] 05/20/2029 [id number] / / [id number] Cmpt Fem Kn Rt 67.5mm Cr Cmnt - [id number] Implanted:Qty : 1 on 10/08/2019 by Reji Black MD at [facility] Orthopedic Implant Right: Knee [employer] 07/13/2029 [id number] / / [id number] Cmpt Ptlr Thn 34mm 3 Pg Kn Ser - [id number] Implanted:Qty : 1 on 10/08/2019 by Reji Black MD at [facility] Orthopedic Implant Right: Knee [employer] 06/20/2024 [id number] / / [id number] Insurance MEDICARE [facility] Advance Directives * Full Code (Latest Code Status on File) Date Activated Date Inactivated Comments 10/08/2019 2:24 PM 10/08/2019 9:09 PM Care Teams Living Advisor Relationship Specialty Start Date End Date Mason Membreno MD [address], [facility] 110 [place] [address] PCP - General Internal Medicine 12/14/18
--- OUTSIDE RECORDS SUMMARY | 2024-12-04 08:19 | XMS_ITS | Encounter Summary ---
Author Organization [facility] Address [address] [place] [address] Care Team Providers Care Manager Contracting Name Role Phone Mason Membreno MD Unavailable [phone] Mason Membreno MD Primary Care Provider [phone] Allyssa Aguilar LPN Unavailable Encounter Details Date Type Department Care Team (Late Contact Info) Description 10/17/2024 Abstract [facility] 112 [facility] 110 [place] [address] Mason Membreno MD 112 [facility] 110 [place] [address] Social History Tobacco Use Types Packs/Day Years [...] Date Recorded Patient Health Questionnaire-2 Score 0 10/11/2024 Sex and Gender Information Value Date Recorded [...] [address] [place] [address] [place] [address] Mason Membreno MD [address] [place] [address] [place] [address] 01/17/2025 8:30 AM EDT Office Visit [facility] [address] [place] [address] [place] [address] Kryie Montes De Oca, DPM 3006 [facility] 5 [place] [address] 02/07/2025 8:30 AM EDT Office Visit [facility] [place] [facility] [address] [facility] 110 [place] [address] Mason Membreno MD [address] [facility] 110 [place] [address] 02/12/2025 9:30 AM EDT Office Visit [facility] [place] [facility] [address] [facility] 310 [place] [address] Syed White MD 6632 [facility] 111 [place] [address] documented as of this encounter Visit Diagnoses Not on filedocumented in this encounter Care Teams Manager Contracting Relationship Specialty Start Date End Date Mason Membreno MD [address] [facility] 110 [place] [address] PCP - ACO Reach 09/30/22 Mason Membreno MD [address] [place] [address] [place] [address] PCP - General Internal Medicine 10/06/22 Allyssa Aguilar LPN [address] [facility] 110 [place] [address] 11/16/24 11/20/24 documented as of this encounter
--- OUTSIDE RECORDS SUMMARY | 2024-12-04 08:19 | XMS_ITS | Encounter Summary ---
Author Organization [facility] Address [address] [place] [address] Care Team Providers Care Cognos Administrator Name Role Phone Mason Membreno MD Unavailable [phone] Mason Membreno MD Primary Care Provider [phone] Allyssa Aguilar LPN Unavailable Encounter Details Date Type Department Care Team (Late st Contact Info) Description 02/21/2023 Orders Only [facility] [place] [facility] [address] [place] [address] [place] [address] A, Unknown Practice [address] [place], [place] [address] Social History Tobacco Use Types Packs/Day Years [...] [facility] [address] [place] [address] [place] [address] Mason Membreno MD [address] [facility] 110 [place] [address] 01/17/2025 8:30 AM EDT Office Visit [facility] [address] [facility] 120 [place] [address] Kyrie Montes De Oca, DPM 3006 [facility] 5 [place] [address] 02/07/2025 8:30 AM EDT Office Visit [facility] [place] [facility] 112 [facility] 110 [place] [address] Mason Membreno MD 112 [facility] 110 [place] [address] 02/12/2025 9:30 AM EDT Office Visit [facility] [place] [facility] [address] [facility] 310 [place] [address] Syed White MD 3086 [facility] 111 [place], [place] [address] documented as of this encounter Procedures Procedure Name Priority Date/Time Associated Diagnosis Comments COLONOSCOPY DIAGNOSTIC Routine 02/18/2023 9:18 AM EDT documented in this encounter Results * COLONOSCOPY DIAGNOSTIC (02/18/2023 9:18 AM EDT) Anatomical Region Laterality Modality Radiographic Cherri ging us Unknown Practice A IMG XR PROCEDURES Final Resul t documented in this encounter Visit Diagnoses Not on filedocumented in this encounter Care Teams Cognos Administrator Relationship Specialty Start Date End Date Mason Membreno MD [address] [facility] 110 [place] [address] PCP - ACO Reach 09/30/22 Mason Membreno MD [address] [address] PCP - General Internal Medicine 10/06/22 Allyssa Aguilar LPN [address] [address] 11/16/24 11/20/24 documented as of this encounter
--- OUTSIDE RECORDS SUMMARY | 2024-12-04 08:20 | XMS_ITS | Encounter Summary ---
Author Organization [facility] Address [address] [place] [address] Care Team Providers Care Marketing Database Coordinator Name Role Phone Mason Membreno MD Unavailable [phone] Mason Membreno MD Primary Care Provider [phone] Allyssa Aguilar LPN Unavailable Encounter Details Date Type Department Care Team (Late Contact Info) Description 10/22/2024 Abstract [facility] 112 [facility] 110 [place] [address] Mason Membreno MD 112 [facility] 110 [place] [address] Social History Tobacco Use Types Packs/Day Years [...] [address] [place] [address] [place] [address] Mason Membreno MD [address] [place] [address] [place] [address] 01/17/2025 8:30 AM EDT Office Visit [facility] [address] [place] [address] [place] [address] Kyrie Montes De Oca, DPM 3006 [facility] 5 [place] [address] 02/07/2025 8:30 AM EDT Office Visit [facility] [place] [facility] [address] [facility] 110 [place] [address] Mason Membreno MD [address] [facility] 110 [place] [address] 02/12/2025 9:30 AM EDT Office Visit [facility] [place] [facility] [address] [facility] 310 [place] [address] Syed White MD 4259 [facility] 111 [place] [address] documented as of this encounter Visit Diagnoses Not on filedocumented in this encounter Care Teams Marketing Database Coordinator Relationship Specialty Start Date End Date Mason Membreno MD [address] [facility] 110 [place] [address] PCP - ACO Reach 09/30/22 Mason Membreno MD [address] [place] 110 [place] [address] PCP - General Internal Medicine 10/06/22 Allyssa Aguilar LPN [address] [facility] 110 [place] [address] 11/16/24 11/20/24 documented as of this encounter
--- OUTSIDE RECORDS SUMMARY | 2024-12-04 08:20 | XMS_ITS | Encounter Summary ---
Author Organization [facility] Address [address] [place] [address] Care Team Providers Care Dock Worker Name Role Phone Mason Membreno MD Unavailable [phone] Mason Membreno MD Primary Care Provider [phone] Allyssa Aguilar LPN Unavailable Encounter Details Date Type Department Care Team (Late Contact Info) Description 10/17/2024 Abstract [facility] 112 [facility] 110 [place] [address] Mason Membreno MD 112 [facility] 110 [place] [address] Social History Tobacco Use Types Packs/Day Years [...] [address] [place] [address] [place] [address] Mason Membreno MD [address] [place] [address] [place] [address] 01/17/2025 8:30 AM EDT Office Visit [facility] [address] [place] [address] [place] [address] Kyrie Montes De Oca, DPM 3006 [facility] 5 [place] [address] 02/07/2025 8:30 AM EDT Office Visit [facility] [place] [facility] [address] [facility] 110 [place] [address] Mason Membreno MD [address] [facility] 110 [place] [address] 02/12/2025 9:30 AM EDT Office Visit [facility] [place] [facility] [address] [facility] 310 [place] [address] Syed White MD 1729 [facility] 111 [place] [address] documented as of this encounter Visit Diagnoses Not on filedocumented in this encounter Care Teams Dock Worker Relationship Specialty Start Date End Date Mason Membreno MD [address] [facility] 110 [place] [address] PCP - ACO Reach 09/30/22 Mason Membreno MD [address] [place] 110 [place] [address] PCP - General Internal Medicine 10/06/22 Allyssa Aguilar LPN [address] [facility] 110 [place] [address] 11/16/24 11/20/24 documented as of this encounter
--- OUTSIDE RECORDS SUMMARY | 2024-12-04 08:20 | XMS_ITS | Encounter Summary ---
Author Organization [facility] Address [address] [place] [address] Care Team Providers Care Rapier Insertion Loom Fixer Name Role Phone Mason Membreno MD Unavailable [phone] Mason Membreno MD Primary Care Provider [phone] Allyssa Aguilar LPN Unavailable Encounter Details Date Type Department Care Team (Late Contact Info) Description 07/02/2024 Abstract [facility] 112 [facility] 110 [place] [address] Mason Membreno MD 112 [facility] 110 [place] [address] Social History Tobacco Use Types Packs/Day Years [...] Date Recorded Patient Health Questionnaire-2 Score 0 02/27/2024 Sex and Gender Information Value Date Recorded [...] [address] [place] 110 [place] [address] Mason Membreno MD [address] [place] 110 [place] [address] 01/17/2025 8:30 AM EDT Office Visit [facility] [address] [place] 120 [place] [address] Kyrie Montes De Oca, DPM 3006 [facility] 5 [place] [address] 02/07/2025 8:30 AM EDT Office Visit [facility] [place] [facility] [address] [facility] 110 [place] [address] Mason Membreno MD [address] [facility] 110 [place] [address] 02/12/2025 9:30 AM EDT Office Visit [facility] [place] [facility] [address] [facility] 310 [place] [address] Syed White MD 1474 [facility] 111 [place] [address] documented as of this encounter Visit Diagnoses Not on filedocumented in this encounter Care Teams Rapier Insertion Loom Fixer Relationship Specialty Start Date End Date Mason Membreno MD [address] [facility] 110 [place] [address] PCP - ACO Reach 09/30/22 Mason Membreno MD [address] [place] [address] [place] [address] PCP - General Internal Medicine 10/06/22 Allyssa Aguilar LPN [address] [facility] 110 [place] [address] 11/16/24 11/20/24 documented as of this encounter
--- OUTSIDE RECORDS SUMMARY | 2024-12-04 08:20 | XMS_ITS | Encounter Summary ---
Author Organization [facility] Address [address] [place] [address] Care Team Providers Care Hair Boiler Operator Name Role Phone Mason Membreno MD Unavailable [phone] Mason Membreno MD Primary Care Provider [phone] Allyssa Aguilar LPN Unavailable Encounter Details Date Type Department Care Team (Late Contact Info) Description 10/17/2024 Abstract [facility] 112 [facility] 110 [place] [address] Mason Membreno MD 112 [facility] 110 [place] [address] Social History Tobacco Use Types Packs/Day Years [...] [address] [place] [address] [place] [address] Mason Membreno MD [address] [place] 110 [place] [address] 01/17/2025 8:30 AM EDT Office Visit [facility] [address] [place] [address] [place] [address] Kyrie Montes De Oca, DPM 3006 [facility] 5 [place] [address] 02/07/2025 8:30 AM EDT Office Visit [facility] [place] [facility] [address] [facility] 110 [place] [address] Mason Membreno MD [address] [facility] 110 [place] [address] 02/12/2025 9:30 AM EDT Office Visit [facility] [place] [facility] [address] [facility] 310 [place] [address] Syed White MD 1311 [facility] 111 [place] [address] documented as of this encounter Visit Diagnoses Not on filedocumented in this encounter Care Teams Hair Boiler Operator Relationship Specialty Start Date End Date Mason Membreno MD [address] [facility] 110 [place] [address] PCP - ACO Reach 09/30/22 Mason Membreno MD [address] [place] [address] [place] [address] PCP - General Internal Medicine 10/06/22 Allyssa Aguilar LPN [address] [facility] 110 [place] [address] 11/16/24 11/20/24 documented as of this encounter
--- OUTSIDE RECORDS SUMMARY | 2024-12-04 08:20 | XMS_ITS | Encounter Summary ---
Author Organization [facility] Address [address] [place] [address] Care Team Providers Care Computer Recycling Worker Name Role Phone Mason Membreno MD Unavailable [phone] Mason Membreno MD Primary Care Provider [phone] Allyssa Aguilar LPN Unavailable Encounter Details Date Type Department Care Team (Late st Contact Info) Description 02/09/2023 Orders Only [facility] [place] [address] [place] [address] [place] [phone] A, Unknown Practice [address] [place], [place] [address] Social History Tobacco Use Types Packs/Day Years [...] 9:00 AM EDT Office Visit [facility] [place] [facility] [address] [place] [address] [place] [address] Mason Membreno MD [address] [facility] 110 [place] [address] 01/17/2025 8:30 AM EDT Office Visit [facility] [address] [facility] 120 [place] [address] Kyrie Monets De Oca, DPM 3006 [facility] 5 [place] [address] 02/07/2025 8:30 AM EDT Office Visit [facility] [place] [facility] 112 [facility] 110 [place] [address] Mason Membreno MD 112 [facility] 110 [place] [address] 02/12/2025 9:30 AM EDT Office Visit [facility] [place] [facility] [address] [facility] 310 [place] [address] Syed White MD 7385 [facility] 111 [place], [place] [phone] documented as of this encounter Procedures Procedure Name Priority Date/Time Associated Diagnosis Comments POLYSOMNOGRAPHY (PSG) SLEEP STUDY Routine 02/01/2023 1:46 PM EDT documented in this encounter Results * POLYSOMNOGRAPHY (PSG) SLEEP STUDY (02/01/2023 1:46 PM EDT) Anatomical Region Laterality Modality Radiographic Cherri ging us Unknown Practice A IMG XR PROCEDURES Final Resul t documented in this encounter Visit Diagnoses Not on filedocumented in this encounter Care Teams Computer Recycling Worker Relationship Specialty Start Date End Date Mason Membreno MD [address] [facility] 110 [place] [address] PCP - ACO Reach 09/30/22 Mason Membreno MD [address] [place] [address] [address] PCP - General Internal Medicine 10/06/22 Allyssa Aguilar LPN [address] [address] 11/16/24 11/20/24 documented as of this encounter
--- OUTSIDE RECORDS SUMMARY | 2024-12-04 08:20 | XMS_ITS | Encounter Summary ---
Author Organization [facility] Address [address] [facility] [place] [address] Care Team Providers Care Food Taster Name Role Phone Mason Membreno MD Unavailable [phone] Mason Membreno MD Primary Care Provider [phone] Allyssa Aguilar LPN Unavailable Encounter Details Date Type Department Care Team (Late st Contact Info) Description 11/01/2024 Abstract [facility] [place] [facility] [address] [facility] 110 [place] [address] Mason Membreno MD [address] [facility] 110 [place] [address] Social History Tobacco Use Types Packs/Day Years [...] on file documented as of this encounter Functional Status * Over the past 2 weeks, how often have you been bothered by any of the following problems? Question Answer Date of Assessment Author Little interest or pleasure in doing things Not at all 11/01/2024 10:45 AM EDT Jen Bartholomew L PN Feeling down, depressed, or hopeless Not at all 11/01/2024 10:45 AM EDT Jen Bartholomew L PN Patient Health Questionnaire -2 Score 0 11/01/2024 10:45 AM EDT Jen Bartholomew L PN documented as of this encounter Plan of Treatment Upcoming Encounters Date Type Department Care Team (Late st Contact Info) Description 12/05/2024 9:00 AM EDT Office Visit [facility] [place] [facility] [address] [facility] 110 [place] [address] Mason Membreno MD [address] [facility] 110 [place] [address] 01/17/2025 8:30 AM EDT Office Visit [facility] [address] [facility] 120 [place] [address] Kyrie Montes De Oca, DPM 3006 [facility] 5 [place] [address] 02/07/2025 8:30 AM EDT Office Visit [facility] [place] [facility] [address] [facility] 110 [place] [address] Mason Membreno MD [address] [facility] 110 [place] [address] 02/12/2025 9:30 AM EDT Office Visit [facility] [place] [facility] [address] [facility] 310 [place] [address] Syed White MD 6348 [facility] 111 [place] [address] documented as of this encounter Visit Diagnoses Not on filedocumented in this encounter Care Teams Food Taster Relationship Specialty Start Date End Date Mason Membreno MD [address] [place] 110 [place] [address] PCP - ACO Reach 09/30/22 Mason Membreno MD [address] [place] [address] [place] [address] PCP - General Internal Medicine 10/06/22 Allyssa Aguilar LPN [address] [place] [address] [place] [address] 11/16/24 11/20/24 documented as of this encounter
--- OUTSIDE RECORDS SUMMARY | 2024-12-04 08:21 | XMS_ITS | Encounter Summary ---
Author Organization [facility] Address [address] [facility] [place] [address] Care Team Providers Care Awning Maker Name Role Phone Mason Membreno MD Unavailable [phone] Mason Membreno MD Primary Care Provider [phone] Allyssa Aguilar LPN Unavailable Encounter Details Date Type Department Care Team (Late Contact Info) Description 12/28/2022 Abstract [facility] 112 [facility] 110 [place] [address] Maosn Membreno MD 112 [facility] 110 [place] [address] Social History Tobacco Use Types Packs/Day Years [...] [facility] [place] [facility] [address] [facility] 110 [place] [address] Mason Membreno MD [address] [place] 110 [place] [address] 01/17/2025 8:30 AM EDT Office Visit [facility] [address] [place] [address] [place] [address] Kyrie Montes De Oca, DPM 3006 [facility] 5 [place] [address] 02/07/2025 8:30 AM EDT Office Visit [facility] [place] [facility] [address] [facility] 110 [place] [address] Mason Membreno MD [address] [facility] 110 [place] [address] 02/12/2025 9:30 AM EDT Office Visit [facility] [place] [facility] [address] [facility] 310 [place] [address] Syed White MD 0186 [facility] 111 [place], [place] [address] documented as of this encounter Visit Diagnoses Not on filedocumented in this encounter Care Teams Awning Maker Relationship Specialty Start Date End Date Mason Membreno MD [address] [facility] 110 [place] [address] PCP - ACO Reach 09/30/22 Mason Membreno MD [address] [facility] 110 [place] [address] PCP - General Internal Medicine 10/06/22 Allyssa Aguilar LPN [address] [facility] 110 [place] [address] 11/16/24 11/20/24 documented as of this encounter
--- OUTSIDE RECORDS SUMMARY | 2024-12-04 08:21 | XMS_ITS | Encounter Summary ---
Author Organization [facility] Address [address] [place] [address] Care Team Providers Care Tank Cleaning Supervisor Name Role Phone Mason Membreno MD Unavailable [phone] Mason Membreno MD Primary Care Provider [phone] Allyssa Aguilar LPN Unavailable Encounter Details Date Type Department Care Team (Late Contact Info) Description 03/26/2024 Abstract [facility] 112 [facility] 110 [place] [address] Mason Membreno MD 112 [facility] 110 [place] [address] Social History Tobacco Use Types Packs/Day Years [...] [address] [place] [address] [place] [address] Mason Membreno MD [address] [place] 110 [place] [address] 01/17/2025 8:30 AM EDT Office Visit [facility] [address] [place] [address] [place] [address] Kyrie Montes De Oca, DPM 3006 [facility] 5 [place] [address] 02/07/2025 8:30 AM EDT Office Visit [facility] [place] [facility] [address] [facility] 110 [place] [address] Mason Membreno MD [address] [facility] 110 [place] [address] 02/12/2025 9:30 AM EDT Office Visit [facility] [place] [facility] [address] [facility] 310 [place] [address] Syed White MD 0148 [facility] 111 [place] [address] documented as of this encounter Visit Diagnoses Not on filedocumented in this encounter Care Teams Tank Cleaning Supervisor Relationship Specialty Start Date End Date Mason Membreno MD [address] [facility] 110 [place] [address] PCP - ACO Reach 09/30/22 Mason Membreno MD [address] [place] [address] [place] [address] PCP - General Internal Medicine 10/06/22 Allyssa Aguilar LPN [address] [facility] 110 [place] [address] 11/16/24 11/20/24 documented as of this encounter
--- OUTSIDE RECORDS SUMMARY | 2024-12-04 08:21 | XMS_ITS | Encounter Summary ---
Author Organization [facility] Address [address] [facility] [place] [address] Care Team Providers Care Supervisor Intermediates Name Role Phone Mason Membreno MD Unavailable [phone] Mason Membreno MD Primary Care Provider [phone] Allyssa Aguilar LPN Unavailable Encounter Details Date Type Department Care Team (Late Contact Info) Description 12/01/2022 Abstract N[facility] Rivera [address] [facility] 110 [place] [address] Mason Membreno MD 112 [facility] 110 [place] [address] Social History Tobacco Use Types Packs/Day Years [...] [facility] [place] [facility] [address] [facility] 110 [place] [address] Mason Membreno MD [address] [place] 110 [place] [address] 01/17/2025 8:30 AM EDT Office Visit [facility] [address] [place] [address] [place] [address] Kyrie Montes De Oca, DPM 3006 [facility] 5 [place] [address] 02/07/2025 8:30 AM EDT Office Visit [facility] [place] [facility] [address] [facility] 110 [place] [address] Mason Membreno MD [address] [facility] 110 [place] [address] 02/12/2025 9:30 AM EDT Office Visit [facility] [place] [facility] [address] [facility] 310 [place] [address] Syed White MD 6282 [facility] 111 [place], [place] [address] documented as of this encounter Visit Diagnoses Not on filedocumented in this encounter Care Teams Supervisor Intermediates Relationship Specialty Start Date End Date Mason Membreno MD [address] [facility] 110 [place] [address] PCP - ACO Reach 09/30/22 Mason Membreno MD [address] [facility] 110 [place] [address] PCP - General Internal Medicine 10/06/22 Allyssa Aguilar LPN [address] [facility] 110 [place] [address] 11/16/24 11/20/24 documented as of this encounter
--- OUTSIDE RECORDS SUMMARY | 2024-12-04 08:21 | XMS_ITS | Encounter Summary ---
Author Organization [facility] Address [address] [facility] [place] [address] Care Team Providers Care Associate Property Manager Name Role Phone Mason Membreno MD Unavailable [phone] Masno Membreno MD Primary Care Provider Allyssa Aguilar LPN Unavailable Encounter Details Date Type Department Care Team (Late st Contact Info) Description 02/27/2024 Abstract [facility] [place] [facility] [address] [facility] 110 [place] [address] Mason Membreno MD 112 [facility] 110 [place] [address] Social History Tobacco Use Types Packs/Day Years [...] pleasure in doing things Not at all 02/27/2024 11:00 AM EDT Jen Bartholomew L PN Feeling down, depressed, or hopeless Not at all 02/27/2024 11:00 AM EDT Jen Bartholomew L PN Patient Health Questionnaire -2 Score 0 02/27/2024 11:00 AM EDT Jen Bartholomew L PN documented as of this encounter Plan of Treatment Upcoming Encounters Date Type Department Care Team (Late st Contact Info) Description 12/05/2024 9:00 AM EDT Office Visit [facility] [place] [facility] [address] [facility] 110 [place] [address] Mason Membreno MD [address] [facility] 110 [place] [address] 01/17/2025 8:30 AM EDT Office Visit [facility] [address] [facility] 120 [place] [address] Kyrie Montes De Oca, DPM 3006 [facility] 5 [place] [address] 02/07/2025 8:30 AM EDT Office Visit [facility] [place] [facility] [address] [facility] 110 [place] [address] Mason Membreno MD 112 [facility] 110 [place] [address] 02/12/2025 9:30 AM EDT Office Visit [facility] [place] [facility] Neu[facility] [address] [facility] 310 [place] [address] Syed White MD 3090 [facility] 111 [place] [address] documented as of this encounter Visit Diagnoses Not on filedocumented in this encounter Care Teams Associate Property Manager Relationship Specialty Start Date End Date Mason Membreno MD [address] [place] [address] [place] [address] PCP - ACO Reach 09/30/22 Mason Membreno MD [address] [place] [address] [place] [address] PCP - General Internal Medicine 10/06/22 Allyssa Aguilar LPN [address] [place] [address] [place] [address] 11/16/24 11/20/24 documented as of this encounter
--- OUTSIDE RECORDS SUMMARY | 2024-12-04 08:21 | XMS_ITS | Encounter Summary ---
Author Organization [facility] Address [address] [place] [address] Care Team Providers Care Computer Programming Professor Name Role Phone Mason Membreno MD Unavailable [phone] Mason Membreno MD Primary Care Provider [phone] Allyssa Aguilar LPN Unavailable Encounter Details Date Type Department Care Team (Late Contact Info) Description 01/30/2024 Abstract [facility] 112 [facility] 110 [place] [address] Mason Membreno MD 112 [facility] 110 [place] [address] Social History Tobacco Use Types Packs/Day Years [...] [address] [place] [address] [place] [address] Mason Membreno MD [address] [place] 110 [place] [address] 01/17/2025 8:30 AM EDT Office Visit [facility] [address] [place] [address] [place] [address] Kyrie Montes De Oca, DPM 3006 [facility] 5 [place] [address] 02/07/2025 8:30 AM EDT Office Visit [facility] [place] [facility] [address] [facility] 110 [place] [address] Mason Membreno MD [address] [facility] 110 [place] [address] 02/12/2025 9:30 AM EDT Office Visit [facility] [place] [facility] [address] [facility] 310 [place] [address] Syed White MD 7014 [facility] 111 [place] [address] documented as of this encounter Visit Diagnoses Not on filedocumented in this encounter Care Teams Computer Programming Professor Relationship Specialty Start Date End Date Mason Membreno MD [address] [facility] 110 [place] [address] PCP - ACO Reach 09/30/22 Mason Membreno MD [address] [place] [address] [place] [address] PCP - General Internal Medicine 10/06/22 Allyssa Aguilar LPN [address] [facility] 110 [place] [address] 11/16/24 11/20/24 documented as of this encounter
--- OUTSIDE RECORDS SUMMARY | 2024-12-04 08:21 | XMS_ITS | Encounter Summary ---
Author Organization [facility] Address [address] [facility] [place] [address] Care Team Providers Care Claims Representative Name Role Phone Mason Membreno MD Unavailable [phone] Mason Membreno MD Primary Care Provider [phone] Allyssa Aguilar LPN Unavailable Encounter Details Date Type Department Care Team (Late Contact Info) Description 10/14/2022 Abstract [facility] [place] [address] [facility] 110 [place] [address] Sheba Rodriguez PA [address] [email or web address] 110 [place] [address] Social History Tobacco Use Types Packs/Day Years Used Date Smoking Tobacco: Never Smokeless Tobacco: Never AUDIT-C Answer Date Recorded Q1: How often do you have a drink containing alcohol? Never 10/06/2022 Q2: How many drinks containi ng alcohol do you have on a typical day when you are drinking? Patient does not drink Q3: How often do you have si x or more drinks on one occasion? Never 10/06/2022 Sex and Gender Information Value Date Recorded Sex Assigned at Not on file Legal Sex Male 7:01 PM EDT Gender Identity Not on file Sexual Orientation Not on file documented as of this encounter Plan of Treatment Upcoming Encounters Date Type Department Care Team (Late Contact Info) Description 12/05/2024 9:00 AM EDT Office Visit [facility] [place] [address] [facility] 110 [place] [address] Mason Membreno MD [address] [email or web address] 110 [place] [address] 01/17/2025 8:30 AM EDT Office Visit [facility] [address] [place] 120 [place] [address] Kyrie Montes De Oca, DPM 3006 [facility] 5 [place] [address] 02/07/2025 8:30 AM EDT Office Visit [facility] [place] [facility] [address] [facility] 110 [place] [address] Mason Membreno MD [address] [facility] [[email or web address] 110 [place] [address] 02/12/2025 9:30 AM EDT Office Visit [facility] [place] [facility] [address] [facility] 310 [place] [address] Syed White MD 7607 [facility] 111 [place] [address] documented as of this encounter Visit Diagnoses Not on filedocumented in this encounter Care Teams Claims Representative Relationship Specialty Start Date End Date Mason Membreno MD [address] [facility] [[email or web address] 110 [place] [address] PCP - ACO Reach 09/30/22 Mason Membreno MD [address] [facility] [[email or web address] 110 [place] [address] PCP - General Internal Medicine 10/06/22 Allyssa Aguilar LPN [address] [email or web address] 110 [place] [address] 11/16/24 11/20/24 documented as of this encounter
--- OUTSIDE RECORDS SUMMARY | 2024-12-04 08:21 | XMS_ITS | Encounter Summary ---
Author Organization [facility] Address [address] [facility] [place] [address] Care Team Providers Care Retoucher Name Role Phone Mason Membreno MD Unavailable [phone] Mason Membreno MD Primary Care Provider [phone] Allyssa Aguilar LPN Unavailable Encounter Details Date Type Department Care Team (Late Contact Info) Description 10/14/2022 Orders Only [facility] [place] [facility] [address] [facility] [address] [place] [address] Sheba Rodriguez PA [address] [facility] 110 [place] [address] Social History Tobacco Use Types Packs/Day Years [...] 9:00 AM EDT Office Visit [facility] [address] [facility] 110 [place] [phone] Mason Membreno MD [address] [facility] 110 [place] [address] 01/17/2025 8:30 AM EDT Office Visit [facility] 112 [facility] 120 [place] [address] Kyrie Montes De Oca, DPM 3[address] [facility] 5 [place] [address] 02/07/2025 8:30 AM EDT Office Visit [facility] [place] [facility] [address] [facility] 110 [place] [phone] Mason Membreno MD 112 [facility] 110 [place] [address] 02/12/2025 9:30 AM EDT Office Visit [facility] [place] [facility] [address] [facility] [address] [place] [address] Syed White MD 06[address] [facility] 111 [place] [address] documented as of this encounter Procedures Procedure Name Priority Date/Time Associated Diagnosis Comments SCANNED LABS Routine 09/12/2022 3:[address] ABDOMEN/PELVIS WITH CONTRAST Routine 09/12/2022 3:[address] ABDOMEN & PELVIS WO Routine 09/12/2022 3:09 PM EDT documented in this encounter Results * SCANNED LABS (09/12/2022 3:10 PM EDT) us Sheba CHEN LAB CHG PERFORMABLES Final Res ult * CT ABDOMEN/PELVIS WITH CONTRAST (09/12/2022 3:09 PM EDT) Anatomical Region Laterality Modality Radiographic Cherri ging us Sheba CHEN IMG XR PROCEDURES Final Result * CT ABDOMEN & PELVIS WO (09/12/2022 3:09 PM EDT) Anatomical Region Laterality Modality Radiographic Cherri ging Sheba CHEN IMG XR PROCEDURES Final Result documented in this encounter Visit Diagnoses Not on filedocumented in this encounter Care Teams Retoucher Relationship Specialty Start Date End Date Mason Membreno MD [address] [facility] 110 [place] [address] PCP - ACO Reach 09/30/22 Mason Membreno MD [address] [facility] 110 [place] [address] PCP - General Internal Medicine 10/06/22 Allyssa Aguilar LPN [address] [facility] 110 [place] [address] 11/16/24 11/20/24 documented as of this encounter
--- OUTSIDE RECORDS SUMMARY | 2024-12-04 08:21 | XMS_ITS | Encounter Summary ---
Author Organization [facility] Address [address] [place] [address] Care Team Providers Care Investigative Shopper Name Role Phone Mason Membreno MD Unavailable [phone] Mason Membreno MD Primary Care Provider Allyssa Aguilar LPN Unavailable Encounter Details Date Type Department Care Team (Late Contact Info) Description 12/06/2022 Abstract [facility] [place] [facility] [address] [place] [phone] Syed White MD [address] 111 [place] [address] Social History Tobacco Use Types Packs/Day Years [...] [address] [facility] [address] [place] [address] Mason Membreno MD [address] [facility] [address] [place] [address] 01/17/2025 8:30 AM EDT Office Visit [facility] [address] [place] [address] [place] [address] Kyrie Montes De Oca, DPM 3006 [facility] 5 [place] [address] 02/07/2025 8:30 AM EDT Office Visit [facility] [place] [facility] [address] [facility] 110 [place] [address] Mason Membreno MD [address] [facility] 110 [place] [address] 02/12/2025 9:30 AM EDT Office Visit [facility] [place] [facility] [address] [facility] 310 [place] [address] Syed White MD 4654 [facility] 111 [place] [address] documented as of this encounter Visit Diagnoses Not on filedocumented in this encounter Care Teams Investigative Shopper Relationship Specialty Start Date End Date Mason Membreno MD [address] [facility] 110 [place] [address] PCP - ACO Reach 09/30/22 Mason Membreno MD [address] [facility] [address] [place] [address] PCP - General Internal Medicine 10/06/22 Allyssa Aguilar LPN [address] [facility] [address] [place] [address] 11/16/24 11/20/24 documented as of this encounter
--- OUTSIDE RECORDS SUMMARY | 2024-12-04 08:21 | XMS_ITS | Encounter Summary ---
Author Organization [facility] Address [address] [facility] [place] [address] Care Team Providers Care Aircraft De Icer Installer Name Role Phone Mason Membreno MD Unavailable [phone] Mason Membreno MD Primary Care Provider [phone] Allyssa Aguilar LPN Unavailable Encounter Details Date Type Department Care Team (Late Contact Info) Description 10/19/2022 Orders Only [facility] [place] [facility] [address] [facility] 110 [place] [phone] Mason Membreno MD [address] [facility] 110 [place] [address] Social History Tobacco Use Types Packs/Day Years [...] 9:00 AM EDT Office Visit [facility] [place] [facility] [address] [facility] [address] [place] [phone] Mason Membreno MD 112 [facility] 110 [place] [address] 01/17/2025 8:30 AM EDT Office Visit [facility] 112 [facility] 120 [place] [address] Kyrie Montes De Oca, DPM 3006 [facility] 5 [place] [address] 02/07/2025 8:30 AM EDT Office Visit [facility] [place] [facility] 112 [facility] 110 [place] [phone] Mason Membreno MD 112 [facility] 110 [place] [address] 02/12/2025 9:30 AM EDT Office Visit [facility] [place] [facility] [address] [facility] 310 [place] [address] Syed White MD 7045 [facility] 111 [place], [place] [phone] documented as of this encounter Procedures Procedure Name Priority Date/Time Associated Diagnosis Comments US RENAL BIOPSY Routine 10/18/2022 8:40 AM EDT documented in this encounter Results * US RENAL BIOPSY (10/18/2022 8:40 AM EDT) Anatomical Region Laterality Modality Other Mason Membreno MD [facility] Final Result documented in this encounter Visit Diagnoses Not on filedocumented in this encounter Care Teams Aircraft De Icer Installer Relationship Specialty Start Date End Date Mason Membreno MD 112 [facility] 110 [place] [address] PCP - ACO Reach 09/30/22 Mason Membreno MD 112 [facility] 110 [place] [address] PCP - General Internal Medicine 10/06/22 Allyssa Aguilar LPN 112 [facility] 110 [place] [id number] 11/16/24 11/20/24 documented as of this encounter
--- OUTSIDE RECORDS SUMMARY | 2024-12-04 08:21 | XMS_ITS | Clinical Summary ---
Author Organization [facility] Address [address] [facility] [address] [place] [address] Care Team Providers Care Bone Char Puller Name Role Phone Mason Membreno MD Primary Care Provider [phone] Allergies No known active allergies Medications amLODIPine (NORVASC) 5 MG tablet Take 5 mg by mouth 2 times daily Active carvedilol (COREG) 12.5 MG tablet Take 12.5 mg by mouth 2 times daily (with meals) Active cloNIDine (CATAPRES) 0.1 MG tablet Take 0.1 mg by mouth 3 times daily Active atorvastatin (LIPITOR) 40 MG tablet Take 40 mg by mouth daily Active citalopram (CELEXA) 40 MG tablet Take 40 mg by mouth daily Active enalapril (VASOTEC) 20 MG tablet Take 20 mg by mouth 2 times daily Active finasteride (PROSCAR) 5 MG tablet Take 5 mg by mouth daily Active tamsulosin (FLOMAX) 0.4 MG capsule Take 0.4 mg by mouth daily Active furosemide (LASIX) 20 MG tablet Take 20 mg by mouth daily Active insulin aspart (NOVOLOG) 100 UNIT/ML injection vial Inject 1 Units into the skin 3 times daily (before meals) Sliding scale Active Insulin Degludec (TRESIBA) 100 UNIT/ML SOLN Inject 93 Units into the skin daily Active Liraglutide (VICTOZA) 18 MG/3ML SOPN SC injection Inject 1.8 mg into the skin daily Active omeprazole (PRILOSEC) 20 MG delayed release capsule Take 20 mg by mouth daily Active Cholecalciferol (VITAMIN D3) 2000 units CAPS Take 1 capsule by mouth daily Active aspirin 500 MG EC tablet Take 500 mg by mouth daily Active Social History Tobacco Use Types Packs/Day Years Used Date Smoking Tobacco: Every Day Smokeless Tobacco: Never Alcohol Use Standard Drinks/Week Comments Not Currently 0 (1 standard drink = 0.6 oz pur e alcohol) Sex and Gender Information Value Date Recorded Sex Assigned at Not on file Legal Sex Male 2:12 PM EDT Gender Identity Not on file Sexual Orientation Not on file Last Filed Vital Signs Vital Sign Reading Time Taken Comments Blood Pressure 134/83 12/30/2018 2:36 PM EDT Pulse 49 12/30/2018 2:17 PM EDT Temperature 36.3 C (97.3 F) 12/30/2018 2:17 PM EDT Respiratory Rate 22 12/30/2018 2:17 PM EDT Oxygen Saturation 99% 12/30/2018 2:36 PM EDT Inhaled Oxygen Concentration - - Weight - - Height - - Body Mass Index - - Plan of Treatment Not on file Insurance [facility] MEDICARE Care Teams Bone Char Puller Relationship Specialty Start Date End Date Mason Membreno MD [address] [place] [phone] PCP - General Internal Medicine 12/30/18
--- OUTSIDE RECORDS SUMMARY | 2024-12-04 08:22 | XMS_ITS | Encounter Summary ---
Author Organization [facility] Address [address] [place] [address] Care Team Providers Care Metal Template Maker Name Role Phone Mason Membreno MD Unavailable [phone] Mason Membreno MD Primary Care Provider [phone] Allyssa Aguilar LPN Unavailable Encounter Details Date Type Department Care Team (Late Contact Info) Description 10/12/2023 Abstract [facility] 112 [facility] 110 [place] [phone] Mason Membreno MD 112 [facility] 110 [place] [address] Social History Tobacco Use Types Packs/Day Years [...] [address] [place] [address] [place] [address] Mason Membreno MD [address] [place] [address] [place] [address] 01/17/2025 8:30 AM EDT Office Visit [facility] [address] [place] [address] [place] [address] Kyrie Montes De Oca, DPM 3006 [facility] 5 [place] [address] 02/07/2025 8:30 AM EDT Office Visit [facility] [place] [facility] [address] [facility] 110 [place] [address] Mason Membreno MD [address] [facility] 110 [place] [address] 02/12/2025 9:30 AM EDT Office Visit [facility] [place] [facility] [address] [facility] 310 [place] [address] Syed White MD 1245 [facility] 111 [place] [address] documented as of this encounter Visit Diagnoses Not on filedocumented in this encounter Care Teams Metal Template Maker Relationship Specialty Start Date End Date Mason Membreno MD [address] [facility] 110 [place] [address] PCP - ACO Reach 09/30/22 Mason Membreno MD [address] [place] [address] [place] [address] PCP - General Internal Medicine 10/06/22 Allyssa Aguilar LPN [address] [facility] 110 [place] [address] 11/16/24 11/20/24 documented as of this encounter
--- OUTSIDE RECORDS SUMMARY | 2024-12-04 08:22 | XMS_ITS | Encounter Summary ---
Author Organization [employer] Address [id number] [address] [place] [address] Care Team Providers Care Diamond Saw Operator Name Role Phone Mason Membreno MD Primary Care Provider Encounter Details Date Type Department Care Team (Latest Contact Info) Description 12/03/2024 Travel Social History Tobacco Use Types Packs/Day Years [...] [facility] [address] [facility] [place] [address] Sacroiliitis, not elsewhere classified documented as of this encounter Goals Goal Patient Goal Type Associated Problems Recent Progress Patient-Stated? Author Improve mobility General Yes Lakia Ochoa, RN Note: Evaluation of progress towards goal: Maximize work with PT at discharge to strengthen R knee documented as of this encounter Visit Diagnoses Not on filedocumented in this encounter Care Teams Diamond Saw Operator Relationship Specialty Start Date End Date Mason Membreno MD [address], [place] [address] [place] [phone] PCP - General Internal Medicine 12/14/18 documented as of this encounter
--- OUTSIDE RECORDS SUMMARY | 2024-12-04 08:22 | XMS_ITS | Clinical Summary ---
Author Organization [facility] Address [address] [place] [address] Care Team Providers Care Search Developer Name Role Phone Herbert Cespedes MD Primary Care Provider [phone] Allergies No known active allergies Medications enalapril (VASOTEC) 20 mg tablet Take 1 tablet by mouth twice daily. 3 Active metFORMIN 500 mg tablet Take 2 tablets by mouth twice daily. 0 3 Active insulin glargine (LANTUS) 100 unit/mL injection Inject 100 Units subcutaneously daily at bedtime. 0 3 Active nebivolol (BYSTOLIC) 20 mg Tab Take by mouth once daily. 0 3 Active olmesartan-hyd rochlorothiazi de 40-12.5 mg per tablet Take 1 tablet by mouth once daily. 0 3 Active lansoprazole (PREVACID) 30 mg capsule Take 1 capsule by mouth once daily. 0 3 Active amLODIPine (NORVASC) 5 mg tablet Take 1 tablet by mouth once daily. 0 3 Active insulin aspart (NOVOLOG) 100 unit/mL Soln Inject subcutaneously daily with breakfast. 0 3 Active CIPROFLOXACIN 500 mg tablet 3 Active Active Problems Problem Noted Date Diagnosed Date Abdominal pain, other specified site 02/23/2013 Social History Tobacco Use Types Packs/Day Years Used Date Smoking Tobacco: Never Smokeless Tobacco: Never Alcohol Use Standard Drinks/Week Comments No 0 (1 standard drink = 0.6 oz pur e alcohol) Area Deprivation Index Answer Date Chan rded National Score (1-100), lower number is lower ri sk Not on file 04/16/2020 State Score (1-10), lower number is lower risk N ot on file 04/16/2020 Data from: https://www.neighborhoodatlas.medicine.[facility]/. Last address used for calculation Not on file 04/16/2020 Sex and Gender Information Value Date Recorded Sex Assigned at Not on file Legal Sex Male 4:11 PM EDT Gender Identity Not on file Sexual Orientation Not on file Plan of Treatment Health Maintenance Due Date Last Done Comments Anxiety Screening 1970 Depression Screening 1970 Hepatitis C Screening 1970 Lipid Screening 11/05/1987 CT Colonography 1997 Cologuard (FIT-DNA) 1997 Colonoscopy 1997 Colorectal Cancer Screening 1997 Fecal Occult Blood 1997 Sigmoidoscopy 1997 Advance Directive Discussion 05/09/2024 Influenza Vaccine (#1) 2025 , 04/21/2022, 03/22/2022, Additional history exists Diabetes Screening 09/14/2026 09/15/2023, 1 07/06/2021, 05/04/2022, Additional history exists DTaP,Tdap,Td Vaccine (2 - Td or Tdap) 02/24/2027 02/24/2017 RSV Vaccine (1 - 1-dose 75+ series) 11/05/2027 Shingrix Vaccine Completed 11/23/2018, 11/2017, 04/10/2018 Pneumococcal Vaccine: 50+ Completed 2019, 02/24/2017, 12/07/2014, Additional history exists Insurance MEDICARE [facility] CHOICE PLUS Care Teams Search Developer Relationship Specialty Start Date End Date Herbert Cespedes MD PCP - General Family Medicine 02/14/13
--- OUTSIDE RECORDS SUMMARY | 2024-12-04 08:22 | XMS_ITS | Encounter Summary ---
Author Organization [facility] Address [address] [place] [address] Care Team Providers Care Bootmaker Hand Name Role Phone Mason Membreno MD Unavailable [phone] Mason Membreno MD Primary Care Provider [phone] Allyssa Aguilar LPN Unavailable Encounter Details Date Type Department Care Team (Late Contact Info) Description 11/21/2023 Clinisync Result Encounter [facility] External Department Unsolicited Provider, Generic External Data Social History Tobacco Use Types Packs/Day Years [...] Office Visit [facility] [place] [address] [place] [address] [place] [address] Mason Membreno MD [address] [place] [address] [place], [place] [address] 01/17/2025 8:30 AM EDT Office Visit [facility] [address] [address] [place] [address] Kyrie Montes De Oca, DPMaryuri 3006 [facility] 5 [place] [address] 02/07/2025 8:30 AM EDT Office Visit [facility] [address] [place] [address] [place] [address] Mason Membreno MD 112 [facility] 110 [place] [address] 02/12/2025 9:30 AM EDT Office Visit [facility] [address] [facility] 310 [place] [address] Syed White MD 6139 [facility] 111 [place], [place] [id number] documented as of this encounter Procedures Procedure Name Priority Date/Time Associated Diagnosis Comments CA ECHO DOPPLER COMPLETE 11/21/2023 2:02 PM EDT documented in this encounter Results * CA ECHO DOPPLER COMPLETE (11/21/2023 2:02 PM EDT) Anatomical Region Laterality Modality Other 11/21/2023 2:02 PM EDT Narrative 11/21/2023 2:04 PM EDT The [address] [address] Cardiology Report Signed Patient: MAURY VILLALPANDO MR#: [id number] : 1950 Acct:[id number] Age/Sex: 73 / M ADM Date: 11/21/23 Loc: CARD Attending Dr: BG KOEHLER APRN Ordering Physician: BG KOEHLER APRN Date of Service: 11/21/23 Procedure(s): CA echo doppler complete Accession Number(s): [id number] cc: MASON MEMBRENO ; BG KOEHLER APRN Patient Name: MAURY VILLALPANDO MR#: [id number] : 1950 Exam Date: 11/21/2023 Ordering Doctor: BG KOEHLER TRANSIT MIXER DRIVER ECHOCARDIOGRAM REPORT PROCEDURE: CA ECHO DOPPLER COMPLETE INDICATIONS: Atrial fib/flutter COMPARISON: None. DESCRIPTION: COMPLETE ECHOCARDIOGRAM Real-time transthoracic echocardiography with 2D, M-mode, spectral and color flow Doppler performed. QUALITY: Technical quality was good. LEFT VENTRICLE: Normal chamber size. Moderate to severe concentric left ventricular hypertrophy with significant hypertrophy of the basal septum. Global left ventricular systolic function is hyperdynamic. LV EF: Estimated left ventricular ejection fraction is 75 % DIASTOLIC: Diastolic function is indeterminate. ATRIAL SEPTUM: LEFT ATRIUM: Mild dilatation. RIGHT ATRIUM: Mild dilatation. RIGHT VENTRICLE: Normal chamber size. Normal right ventricular systolic function. TRICUSPID VALVE: Normal mobility and thickness. No stenosis with trivial regurgitation. No evidence of pulmonary hypertension. RVSP 33 mmHg MITRAL VALVE: Normal mobility and thickness. No evidence of mitral valve stenosis. There is no mitral annular calcification. Trivial mitral regurgitation. There is slight systolic anterior motion of the anterior mitral valve leaflet without significant LVOT obstruction at rest. AORTIC VALVE: Normal trileaflet appearance. Thickened aortic valve. Normal leaflet mobility. No evidence of aortic valve stenosis. No evidence of LVOT obstruction. Mild aortic regurgitation. AORTIC ROOT: Normal diameter and appearance. The ascending aorta is mildly dilated measuring 3.8 cm. PULMONIC VALVE: Normal thickness and mobility. No stenosis. No regurgitation. PERICARDIUM: No evidence of pericardial effusion. IVC: Collapses with inspirations. Normal size. PLEURA: CONCLUSION: 1. The left ventricle exhibits moderate to severe hypertrophy with significant hypertrophy of the basal septum. Systolic function is hyperdynamic. LVEF is estimated at 75%. 2. Normal right ventricular size and systolic function. 3. Mild biatrial dilatation. 4. There is evidence of mild systolic anterior motion of the anterior mitral leaflet without significant LVOT obstruction at rest. Valsalva maneuver was not performed during this exam. 5. Normal right-sided pressures. 6. No significant valvular dysfunction. 7. The patient appears to be in sinus rhythm during the exam. 8. Findings are suggestive of possible hypertrophic cardiomyopathy. A cardiac MRI is recommended for further characterization of the above findings. Adult Echocardiography Procedure Report Left Ventricle LVEDD (3.7 - 5.6 cm): 3.66 cm LVESD (2.2 - 4.0 cm): 2.46 cm LVIVS thickness (0.6 - 1.2 cm): 2.3 cm LVPW thickness (0.5 - 1.0 cm): 1.62 cm e': 0.06 m/s E - e': 10.27 LVOT Max Gradient: 5.87 mm[Hg] LVOT Area (cm2): 1.21 m/s Peak Velocity (LVOT): 1.21 m/s Mean Velocity (LVOT): 0.81 m/s LVOT Diameter 2.14 cm Left Ventricular Ejection Fraction: 75 % Left Atrium LA Volume Index (2D A2C): 43.39 ml/m2 Left Atrium Systolic Dimension: 4.06 cm Mitral Valve MV E to A Ratio: 0.80 Mitral Valve A-Wave Peak Velocity: 0.77 m/s Mitral Valve E-Wave Peak Velocity: 0.62 m/s Right Ventricle RV Internal Diastolic Dimension: 3.07 cm Aorta AO Root Diam: 3.68 cm Ascending Ao Diam: 3.83 cm Aortic Valve AoV Area (Peak Darnell): 3.45 cm2, 3.30 cm2 AoV Area (VTI): 3.06 cm2, 2.96 cm2 Deceleration Lee: 1.60 m/s2, 1.58 m/s2 Pressure Half-Time: 744.26 ms, 759.35 ms Peak Velocity(Antegrade Flow): 1.33 m/s, 1.21 m/s Peak Gradient(Antegrade Flow): 7.04 mm[Hg], 5.86 mm[Hg] Mean Velocity(Antegrade Flow): 0.98 m/s, 0.93 m/s Mean Gradient(Antegrade Flow): 4.23 mm[Hg], 3.76 mm[Hg] Velocity Time Integral: 36.31 cm, 33.83 cm Tricuspid Valve Peak Velocity (Regurgitant Flow): 1.95 m/s, 2.42 m/s, 2.73 m/s Pulmonic Valve Mean Gradient: 1.86 mm[Hg], 1.97 mm[Hg] Mean Velocity: 0.64 m/s, 0.67 m/s Peak Velocity: 0.87 m/s Peak Gradient: 3.06 mm[Hg], 3.06 mm[Hg] Right Atrium Right Atrium Systolic Pressure: 49.26 ml, 49.26 ml Dictated by: Wilda Johnson M.D. on 11/21/2023 at 13:54 Approved by: Wilda Johnson M.D. on 11/21/2023 at 14:02 Dictated By: WILDA JOHNSON Signed By: 11/21/23 1404 DD/ 140 TD/TT: Excelsior Picker: Procedure Note Radiology, Radiologist, MD - 11/21/2023 [place] [address] Cardiology Report Signed Patient: MAURY VILLALPANDO EMR#: [id number] : 1950cct:[id number] Age/Sex: 73 / MADM Date: 11/21/23 Loc: CARD Attending Dr: BG KOEHLER APRN Ordering Physician: BG KOEHLER APRN Date of Service: 11/21/23 Procedure(s): CA echo doppler complete Accession Number(s): [id number] cc: MASON MEMBRENO ; BG KOEHLER APRN Patient Name: MAURY VILLALPANDO MR#: [id number] : 1950 Exam Date: 11/21/2023 Ordering Doctor: BG KOEHLER [facility] ECHOCARDIOGRAM REPORT PROCEDURE: CA ECHO DOPPLER COMPLETE INDICATIONS: Atrial fib/flutter COMPARISON: None. DESCRIPTION: COMPLETE ECHOCARDIOGRAM Real-time transthoracic echocardiography with 2D, M-mode, spectral and color flow Dopplerperformed. QUALITY: Technical quality was good. LEFT VENTRICLE: Normal chamber size. Moderate to severe concentricleft ventricular hypertrophy with significant hypertrophy of the basal septum. Global left ventricular systolic function is hyperdynamic. LV EF: Estimated left ventricular ejection fraction is 75 % DIASTOLIC: Diastolic function is indeterminate. ATRIAL SEPTUM: LEFT ATRIUM: Mild dilatation. RIGHT ATRIUM: Mild dilatation. RIGHT VENTRICLE: Normal chamber size. Normal right ventricularsystolic function. TRICUSPID VALVE: Normal mobility and thickness. No stenosis with trivial regurgitation. No evidence of pulmonary hypertension. RVSP 33 mmHg MITRAL VALVE: Normal mobility and thickness. No evidence of mitralvalve stenosis. There is no mitral annular calcification. Trivial mitral regurgitation. There is slight systolic anterior motion of the anterior mitral valve leaflet without significant LVOT obstruction at rest. AORTIC VALVE: Normal trileaflet appearance. Thickened aortic valve. Normal leaflet mobility. No evidence of aortic valve stenosis. Noevidence of LVOT obstruction. Mild aortic regurgitation. AORTIC ROOT: Normal diameter and appearance. The ascending aorta is mildly dilated measuring 3.8 cm. PULMONIC VALVE: Normal thickness and mobility. No stenosis. Noregurgitation. PERICARDIUM: No evidence of pericardial effusion. IVC: Collapses with inspirations. Normal size. PLEURA: CONCLUSION: 1. The left ventricle exhibits moderate to severe hypertrophy withsignificant hypertrophy of the basal septum. Systolic function is hyperdynamic. LVEFis estimated at 75%. 2. Normal right ventricular size and systolic function. 3. Mild biatrial dilatation. 4. There is evidence of mild systolic anterior motion of the anteriormitral leaflet without significant LVOT obstruction at rest. Valsalva maneuverwas not performed during this exam. 5. Normal right-sided pressures. 6. No significant valvular dysfunction. 7. The patient appears to be in sinus rhythm during the exam. 8. Findings are suggestive of possible hypertrophic cardiomyopathy. Acardiac MRI is recommended for further characterization of the above findings. Adult Echocardiography Procedure Report Left Ventricle LVEDD (3.7 - 5.6 cm): 3.66 cm LVESD (2.2 - 4.0 cm): 2.46 cm LVIVS thickness (0.6 - 1.2 cm): 2.3 cm LVPW thickness (0.5 - 1.0 cm): 1.62 cm e': 0.06 m/s E - e': 10.27 LVOT Max Gradient: 5.87 mm[Hg] LVOT Area (cm2): 1.21 m/s Peak Velocity (LVOT): 1.21 m/s Mean Velocity (LVOT): 0.81 m/s LVOT Diameter 2.14 cm Left Ventricular Ejection Fraction: 75 % Left Atrium LA Volume Index (2D A2C): 43.39 ml/m2 Left Atrium Systolic Dimension: 4.06 cm Mitral Valve MV E to A Ratio: 0.80 Mitral Valve A-Wave Peak Velocity: 0.77 m/s Mitral Valve E-Wave Peak Velocity: 0.62 m/s Right Ventricle RV Internal Diastolic Dimension: 3.07 cm Aorta AO Root Diam: 3.68 cm Ascending Ao Diam: 3.83 cm Aortic Valve AoV Area (Peak Darnell): 3.45 cm2, 3.30 cm2 AoV Area (VTI): 3.06 cm2, 2.96 cm2 Deceleration Lee: 1.60 m/s2, 1.58 m/s2 Pressure Half-Time: 744.26 ms, 759.35 ms Peak Velocity(Antegrade Flow): 1.33 m/s, 1.21 m/s Peak Gradient(Antegrade Flow): 7.04 mm[Hg], 5.86 mm[Hg] Mean Velocity(Antegrade Flow): 0.98 m/s, 0.93 m/s Mean Gradient(Antegrade Flow): 4.23 mm[Hg], 3.76 mm[Hg] Velocity Time Integral: 36.31 cm, 33.83 cm Tricuspid Valve Peak Velocity (Regurgitant Flow): 1.95 m/s, 2.42 m/s, 2.73 m/s Pulmonic Valve Mean Gradient: 1.86 mm[Hg], 1.97 mm[Hg] Mean Velocity: 0.64 m/s, 0.67 m/s Peak Velocity: 0.87 m/s Peak Gradient: 3.06 mm[Hg], 3.06 mm[Hg] Right Atrium Right Atrium Systolic Pressure: 49.26 ml, 49.26 ml Dictated by: Wilda Johnson M.D. on 11/21/2023 at 13:54 Approved by: Wilda Johnson M.D. on 11/21/2023 at 14:02 Dictated By: WILDA JOHNSON Signed By:11/21/23 1404 DD/ 01 TD/TT: Excelsior Picker: Generic External Data Provider [facility] Final Result documented in this encounter Visit Diagnoses Not on filedocumented in this encounter Care Teams Bootmaker Hand Relationship Specialty Start Date End Date Mason Membreno MD [address] [place] [address] PCP - ACO Reach 09/30/22 Mason Membreno MD [address] [facility] 110 [place], [place] [phone] PCP - General Internal Medicine 10/06/22 Allyssa Aguilar LPN [address] [address] 11/16/24 11/20/24 documented as of this encounter
--- OUTSIDE RECORDS SUMMARY | 2024-12-04 08:22 | XMS_ITS | Encounter Summary ---
Author Organization [facility] Address [address] [place] [address] Care Team Providers Care Tire Fabric Inspector Name Role Phone Mason Membreno MD Unavailable [phone] Mason Membreno MD Primary Care Provider [phone] Allyssa Aguilar LPN Unavailable Encounter Details Date Type Department Care Team (Late Contact Info) Description 10/25/2023 Abstract [facility] 112 [facility] 110 [place] [phone] Mason Membreno MD 112 [facility] 110 [place] [address] Social History Tobacco Use Types Packs/Day Years [...] [address] [place] [address] [place] [address] Mason Membreno MD [address] [place] [address] [place] [address] 01/17/2025 8:30 AM EDT Office Visit [facility] [address] [address] [place] [address] Kyrie Montes De Oca, DPM 3006 [facility] 5 [place] [address] 02/07/2025 8:30 AM EDT Office Visit [facility] [place] [facility] [address] [facility] 110 [place] [address] Mason Membreno MD [address] [facility] 110 [place] [address] 02/12/2025 9:30 AM EDT Office Visit [facility] [place] [facility] [address] [facility] 310 [place] [address] Syed White MD 9173 [facility] 111 [place] [address] documented as of this encounter Visit Diagnoses Not on filedocumented in this encounter Care Teams Tire Fabric Inspector Relationship Specialty Start Date End Date Mason Membreno MD [address] [facility] 110 [place] [address] PCP - ACO Reach 09/30/22 Mason Membreno MD [address] [place] [address] [place] [address] PCP - General Internal Medicine 10/06/22 Allyssa Aguilar LPN [address] [facility] 110 [place] [address] 11/16/24 11/20/24 documented as of this encounter
--- OUTSIDE RECORDS SUMMARY | 2024-12-04 08:22 | XMS_ITS | Encounter Summary ---
Author Organization [facility] Address [address] [place] [address] Care Team Providers Care Bioprocess Development Engineer Name Role Phone Mason Membreno MD Unavailable [phone] Mason Membreno MD Primary Care Provider [phone] Allyssa Aguilar LPN Unavailable Encounter Details Date Type Department Care Team (Late Contact Info) Description 07/19/2023 Abstract [facility] 112 [facility] 110 [place] [phone] Mason Membreno MD 112 [facility] 110 [place] [address] Social History Tobacco Use Types Packs/Day Years [...] [address] [place] [address] [place] [address] Mason Membreno MD [address] [place] [address] [place] [address] 01/17/2025 8:30 AM EDT Office Visit [facility] [address] [place] [address] [place] [address] Kyrie Montes De Oca, DPM 3006 [facility] 5 [place] [address] 02/07/2025 8:30 AM EDT Office Visit [facility] [place] [facility] [address] [facility] 110 [place] [address] Mason Membreno MD [address] [facility] 110 [place] [address] 02/12/2025 9:30 AM EDT Office Visit [facility] [place] [facility] [address] [facility] 310 [place] [address] Syed White MD 7828 [facility] 111 [place] [address] documented as of this encounter Visit Diagnoses Not on filedocumented in this encounter Care Teams Bioprocess Development Engineer Relationship Specialty Start Date End Date Mason Membreno MD [address] [facility] 110 [place] [address] PCP - ACO Reach 09/30/22 Mason Membreno MD [address] [place] [address] [place] [address] PCP - General Internal Medicine 10/06/22 Allyssa Aguilar LPN [address] [facility] 110 [place] [address] 11/16/24 11/20/24 documented as of this encounter
--- OUTSIDE RECORDS SUMMARY | 2024-12-04 08:23 | XMS_ITS | Encounter Summary ---
Author Name [facility] Organization [facility] Address [address] [place] [address] Care Team Providers Care Dry Mill Worker Name Role Phone SUHAIL HOWARD Primary Care [...] PART B Oct 07, 2017 PART B [id number] MAURY VILLALPANDO PATIENT MEDICARE (WNR) MEDICARE (M) PART A Oct 07, 2017 PART A [id number] MAURY VILLALPANDO PATIENT MEDICARE (WNR) MEDICARE (M) PART A Oct 07, 2017 PART A [id number] MAURY VILLALPANDO PATIENT MEDICARE (WNR) MEDICARE (M) PART B Oct 07, 2017 PART B [id number] MAURY VILLALPANDO PATIENT MEDICARE (WNR) MEDICARE (M) PART B Oct 07, 2017 PART B [id number] MAURY VILLALAPNDO PATIENT MEDICARE (WNR) MEDICARE (M) PART A Oct 07, 2017 PART A [id number] MAURY VILLALPANDO PATIENT [facility] [place] NIES May 09, 2020 [id number] MAURY VILLALPANDO PATIENT [facility] FMILY OF [place] NI May 09, 2020 [id number] MAURY VILLALPANDO PATIENT Selected Encounter This section includes the [facility] for the [facility]counter. Date/Time Encounter Type Encounter Description Reason Pro vider Source IHE Encounter Template Text not used by [facility]
--- OUTSIDE RECORDS SUMMARY | 2024-12-04 08:23 | XMS_ITS | Encounter Summary ---
Author Organization [facility] Address [address] [place] [address] Care Team Providers Care Customer Consultant Name Role Phone Mason Membreno MD Primary Care Provider [phone] Reason for Visit * Reason Comments Med Refill Encounter Details Date Type Department Care Team (Late st Contact Info) Description 04/15/2022 Refill [facility] Cardiology [address] [place] [address] Sandra Chaves MD 1000 [facility] [address] [place], [place] [id number] Coronary artery disease, unspecified vessel or lesion type, unspecified whether angina present, unspecified whether [place] or transplanted heart Social History Tobacco Use [...] type, unspecified whether angina present, unspecified whether [place] or transplanted heart documented in this encounter Care Teams Customer Consultant Relationship Specialty Start Date End Date Mason Membreno MD 112 [facility] [address] [place] [address] PCP - General 04/20/22 documented as of this encounter
[2024-12-04 08:31] LABS: Glucose Urine UA >=1000 mg/dL (NEGATIVE)
[2024-12-04 08:56] LABS: Alanine Aminotransferase 22 U/L (16-63); Albumin Globulin Ratio 1.0; Albumin Level 3.6 g/dL (3.4-5.0); Alkaline Phosphatase 53 U/L (46-116); Anion Gap 11.2; Aspartate Amino Transferase 14 U/L (15-37); Blood Urea Nitrogen 33.0 mg/dL (7.0-18.0); Calcium 8.7 mg/dL (8.5-10.1); Carbon Dioxide 29.3 mmol/L (21.0-32.0); Chloride 106 mmol/L (98-107); Estimated GFR (African America 32 (>=60 mL/min/1.73m^2); Estimated GFR (Non-African Ame 26 (>=60 mL/min/1.73m^2); Globulin 3.6 g/dL; Glucose 149 mg/dL (74-106); Potassium 4.5 mmol/L (3.5-5.1); Sodium 142 mmol/L (136-145); Total Protein 7.2 g/dL (6.4-8.2)
== END 2024-12-04 08:10 | disposition home or self-care (01) ==
LOC: LAB 08:12
PROVIDERS: PCP Internal Medicine; Visit Provider Chiropractor
DX: E11.9 Type 2 diabetes mellitus without complications (principal)
CPT/HCPCS: 36415; 80053; 81003

== ENCOUNTER 2024-12-11 12:03 | Outpatient (OUT) | payer OTHER, MEDICARE, SELFPAY ==
--- OUTSIDE RECORDS SUMMARY | 2024-11-15 05:00 | XMS_ITS | Encounter Summary ---
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 Name Role Phone SUHAIL HOWARD Primary [...] PART B Oct 07, 2017 PART B [id number] MAURY VILLALPANDO PATIENT MEDICARE (WNR) MEDICARE (M) PART A Oct 07, 2017 PART A [id number] [facility] [id number] MAURY VILLALPANDO PATIENT MEDICARE (WNR) MEDICARE (M) PART A Oct 07, 2017 PART A [id number] MAURY VILLALPANDO PATIENT MEDICARE (WNR) MEDICARE (M) PART B Oct 07, 2017 PART B [id number] MAURY VILLALPANDO PATIENT MEDICARE (WNR) MEDICARE (M) PART B Oct 07, 2017 PART B [id number] [facility] [id number] MAURY VILLALPANDO PATIENT MEDICARE (WNR) MEDICARE (M) PART A Oct 07, 2017 PART A [id number] MAURY VILLALPANDO PATIENT [facility] [place] NIES May 09, 2020 [id number] MAURY VILLALPANDO PATIENT [facility] FM[facility] [place] NI May 09, 2020 [id number] MAURY VILLALPANDO PATIENT Selected Encounter This section includes the information on record at [place] for the Encounter. Date/Time Encounter Type Encounter Description Reason Provider Source Nov 15, 2024 09:00 AM OFFICE O/P EST MOD 30 MIN RENAL/NEPHROL(EXC EPT DIALYSIS) ICD-10-CM N18.30 Chronic kidney disease, stage 3 unspecified MARVEL JEAN Jann Encounter Template Text not used by [place] Assessments - Encounter Diagnoses This section includes the primary and secondary diagnoses documented for the Encounter. Date/Time Primary/Secondary Diagnosis Diagnosis Name Provider Source Nov 27, 2024 11:52 AM PRIMARY Chronic kidney disease, stage 3 unspecified MAYITO ORTEGA [facility] Nov 27, 2024 11:52 AM SECONDARY Acute kidney failure with tubular necrosis MARVEL JEAN [facility] Nov 27, 2024 11:52 AM SECONDARY Essential (primary) hypertension MAYITO ORTEGA [facility] Nov 27, 2024 11:52 AM SECONDARY Hyperkalemia MARVEL JEAN [facility] Nov 27, 2024 11:52 AM SECONDARY Type 2 diabetes mellitus w diabetic chronic kidney disease MARVEL JEAN [facility] Plan of Treatment: Future Appointments (+ 6 months) and Future Tests (+/- 45 days) The Plan of Treatment section includes future care activities for the patient from all [place] treatmentfacilities. This section includes future appointments and future orders which are active, pending or scheduled. Future Appointments This section includes appointments that were scheduled to occur 6 months from the date of the Encounter, up to a maximum of 20 appointments. The data comes from all [place] treatment facilities. Appointment Date/Time Appointment Type Appointme nt Facility Name Apr 05, 2025 10:15 AM AMBULATORY - SURGERY [facility] Apr 18, 2025 10:00 AM AMBULATORY - MEDICINE [facility] Lab Results: +/- 30 days of the encounter This section includes the Chemistry and Hematology Lab Results on record with [place] for the patient. Radiology Reports and Pathology Reports are provided separately, in subsequent sections. Lab Results This section contains the Chemistry/Hematology Results that were resulted 30 days before or 30 daysafter the date of the Encounter. Date/Time Source Result Type Result - Unit Interpretation Reference Range Specimen Type Comment Dec 06, 2024 07:51 AM [facility] MAGNESIUM BLOOD Specimen Type: BLOOD No comment entered. Ordering Provider: DAMION JEAN Report Released Date/Time: Nov 15, 2024 09:48 AM Reporting Lab: [address] [address] Performing Lab: [facility] [address] [facility] [address] MAGNESIUM 2.1 mg/dL 1.9-2.7 Dec 06, 2024 07:51 AM [facility] FERRITIN BLOOD Specimen Type: BLOOD No comment entered. Ordering Provider: DAMION JEAN Report Released Date/Time: Nov 15, 2024 09:51 AM Reporting Lab: [address] [address] Performing Lab: [address] [address] FERRITIN 15.5 ng/mL L 23.9-336.2 Dec 06, 2024 07:51 AM [facility] IRON/TIBC/FERR BLOOD Specimen Type: BLOOD No comment entered. Ordering Provider: DAMION JEAN Report Released Date/Time: Nov 15, 2024 09:51 AM Reporting Lab: [address] [address] Performing Lab: [address] [address] IRON 71 ug/dL 50-212 TIBC 357 ug/dL 240-450 FERRITIN 15.5 ng/mL L 23.9-336.2 TRANSFERRIN 255 mg/dL 203-362 Dec 06, 2024 07:51 AM [facility] RENAL FUNCTION PANEL (AA) BLOOD Specimen Type : BLOOD No comment entered. Ordering Provider: DAMION JEAN Report Released Date/Time: Nov 15, 2024 09:48 AM Reporting Lab: [address] [address] Performing Lab: [address] [address] CREATININE 2.4 mg/dL H 0.6-1.3 UREA NITROGEN 36 mg/dL H 7-25 GLUCOSE 176 mg/dL H 74-109 SODIUM 137 mmol/L 136-145 POTASSIUM 5.1 mmol/L 3.5-5.1 CHLORIDE 105 mmol/L 98-107 CO2 27 mmol/L 21-31 CALCIUM 9.1 mg/dL 8.6-10.3 PO4 3.7 mg/dL 2.5-5 ALBUMIN 3.9 g/dL 3.5-5.7 ANION GAP 5 mmol/L 4-12 EGFR 28 mL/min/{1.73_m2} Dec 06, 2024 07:51 AM [facility] CBC WITH DIFFERENTIAL BLOOD Specimen Type: BL OOD No comment entered. Ordering Provider: DAMION JEAN Report Released Date/Time: Nov 15, 2024 09:51 AM Reporting Lab: [address] [address] Performing Lab: [address] [address] WBC 6.87 10*3/uL 4.00-11.00 RBC 4.36 10*6/uL 4.10-5.80 HGB 13.0 g/dL 12.1-17.2 HCT 39.5 38.0-51.0 MCV 90.6 fL 80.0-100.0 MCH 29.8 pg 26.0-32.0 MCHC 32.9 g/dL 32.0-37.5 PLATELET 165 10*3/uL 130-400 MPV 10.3 fL 8.9-12.7 LYMPH, ABSOLUTE AUTOMATED 1.35 10*3/uL 1 .00-3.00 MONOS % AUTOMATED 8.4 MONOS, ABSOLUTE AUTOMATED 0.58 10*3/uL 0 .30-0.90 LYMPH % AUTOMATED 19.7 BASO, ABSOLUTE AUTOMATED 0.04 10*3/uL 0. 00-0.20 EOSINO, ABSOLUTE AUTOMATED 0.24 10*3/uL 0.00-0.50 NEUTRO % AUTOMATED 66.5 EOSIN % AUTOMATED 3.5 BASO % AUTOMATED 0.6 NEUTROPHIL, ABSOLUTE AUTOMATED 4.57 10*3/uL 2.00-7.00 RDW-CV 12.3 11.5-14.5 IMMATURE GRANULOCYTE, PERCENT AUTOMATED 1.3 H 0.0-0.5 NRBC% 0.0 NRBC# <0.01 10*3/uL 0.000-0.012 Nov 12, 2024 08:11 AM [facility] RENAL FUNCTION PANEL (AA) BLOOD Specimen Type : BLOOD Comment: R-Specimen is slightly lipemic and may cause interference. See Laboratory Handbook Laboratory Interferences Table for more information. Ordering Provider: DAMION JEAN Report Released Date/Time: Nov 02, 2024 10:33 AM Reporting Lab: [address] [facility] [address] Performing Lab: [address] [facility] [address] CREATININE 2.2 mg/dL H 0.6-1.3 UREA NITROGEN 33 mg/dL H 7-25 GLUCOSE 227 mg/dL H 74-109 SODIUM 140 mmol/L 136-145 POTASSIUM 4.2 mmol/L 3.5-5.1 CHLORIDE 110 mmol/L H 98-107 CO2 23 mmol/L 21-31 CALCIUM 9.1 mg/dL 8.6-10.3 PO4 4.1 mg/dL 2.5-5 ALBUMIN 4.0 g/dL 3.5-5.7 ANION GAP 7 mmol/L 4-12 EGFR 31 mL/min/{1.73_m2} Nov 01, 2024 02:42 PM [facility] MAGNESIUM BLOOD Specimen Type: BLOOD No comment entered. Ordering Provider: DAMION JEAN Report Released Date/Time: Oct 26, 2024 11:50 AM Reporting Lab: [address] [facility] [address] Performing Lab: [address] [address] MAGNESIUM 2.3 mg/dL 1.9-2.7 Nov 01, 2024 02:42 PM [facility] RENAL FUNCTION PANEL (AA) BLOOD Specimen Type : BLOOD No comment entered. Ordering Provider: DAMION JEAN Report Released Date/Time: Oct 26, 2024 11:50 AM Reporting Lab: [address] [address] Performing Lab: [address] [address] CREATININE 3.1 mg/dL H 0.6-1.3 UREA NITROGEN 47 mg/dL H 7-25 GLUCOSE 155 mg/dL H 74-109 SODIUM 137 mmol/L 136-145 POTASSIUM 5.2 mmol/L H 3.5-5.1 CHLORIDE 107 mmol/L 98-107 CO2 23 mmol/L 21-31 CALCIUM 9.0 mg/dL 8.6-10.3 PO4 3.9 mg/dL 2.5-5 ALBUMIN 4.3 g/dL 3.5-5.7 ANION GAP 7 mmol/L 4-12 EGFR 21 mL/min/{1.73_m2} Nov 01, 2024 02:42 PM [facility] URINALYSIS URINE,RANDOM Specimen Type: URINE,RANDOM No comment entered. Ordering Provider: DAMION JEAN Report Released Date/Time: Oct 26, 2024 11:50 AM Reporting Lab: [address] [address] Performing Lab: [address] [address] URINE COLOR YELLOW Yellow SPECIFIC GRAVITY 1.021 1.003-1.035 UROBILINOGEN 1.0 {Angela'U}/dL 0.2-2.0 URINE BILIRUBIN NEGATIVE Negative URINE KETONES NEGATIVE Negative URINE GLUCOSE 3+ Negative URINE PROTEIN 1+ Negative URINE PH 5.0 5.0-9.0 URINE BLOOD NEGATIVE Negative URINE NITRITE NEGATIVE Negative LEUKOCYTE ESTERASE NEGATIVE Negative URINE CLARITY CLEAR Clear RBC/HPF URINE 0-2 /[HPF] 0-2 WBC/HPF URINE 0-5 /[HPF] 0-5 BACTERIA,URINE None Seen /[HPF] TOTAL CASTS 0-2 /[LPF] 0-5 TOTAL EPITHELIAL CELLS None Seen /[LPF] Oct 26, 2024 08:42 AM [facility] FERRITIN BLOOD Specimen Type: BLOOD No comment entered. Ordering Provider: DAMION JEAN Report Released Date/Time: Oct 23, 2024 02:38 PM Reporting Lab: [facility] [address] [facility] [address] Performing Lab: [address] [address] FERRITIN 56.7 ng/mL 23.9-336.2 Oct 26, 2024 08:42 AM [facility] PTH (INTACT) BLOOD Specimen Type: BLOOD No comment entered. Ordering Provider: DAMION JEAN Report Released Date/Time: Oct 23, 2024 02:38 PM Reporting Lab: [address] [address] Performing Lab: [address] [address] PTH (INTACT) 116.7 pg/mL H 12.0-88.0 Oct 26, 2024 08:42 AM [facility] RENAL FUNCTION PANEL (AA) BLOOD Specimen Type : BLOOD No comment entered. Ordering Provider: DAMION JEAN Report Released Date/Time: Oct 22, 2024 02:12 PM Reporting Lab: [address] [address] Performing Lab: [facility] [address] [facility] [address] CREATININE 3.4 mg/dL H 0.6-1.3 UREA NITROGEN 50 mg/dL H 7-25 GLUCOSE 139 mg/dL H 74-109 SODIUM 139 mmol/L 136-145 POTASSIUM 5.5 mmol/L H 3.5-5.1 CHLORIDE 109 mmol/L H 98-107 CO2 24 mmol/L 21-31 CALCIUM 8.8 mg/dL 8.6-10.3 PO4 3.3 mg/dL 2.5-5 ALBUMIN 3.8 g/dL 3.5-5.7 ANION GAP 6 mmol/L 4-12 EGFR 19 mL/min/{1.73_m2} Oct 26, 2024 08:42 AM [facility] IRON/TIBC/FERR BLOOD Specimen Type: BLOOD No comment entered. Ordering Provider: DAMION JEAN Report Released Date/Time: Oct 23, 2024 02:38 PM Reporting Lab: [address] [address] Performing Lab: [address] [address] IRON 51 ug/dL 50-212 TIBC 272 ug/dL 240-450 FERRITIN 56.7 ng/mL 23.9-336.2 TRANSFERRIN 194 mg/dL L 203-362 Oct 26, 2024 08:42 AM [facility] TOTAL 25-HYDROXY VITAMIN D BLOOD Specimen Typ e: BLOOD No comment entered. Ordering Provider: DAMION JEAN Report Released Date/Time: Oct 23, 2024 02:38 PM Reporting Lab: [address] [address] Performing Lab: [address] [address] TOTAL 25-HYDROXY VITAMIN D 39.4 ng/mL 30 -100 Oct 26, 2024 08:42 AM [facility] MAGNESIUM BLOOD Specimen Type: BLOOD No comment entered. Ordering Provider: DAMION JEAN Report Released Date/Time: Oct 23, 2024 02:38 PM Reporting Lab: [facility] [address] [facility] [address] Performing Lab: [facility] [address] [facility] [address] MAGNESIUM 1.9 mg/dL 1.9-2.7 Oct 26, 2024 08:42 AM [facility] MICROALBUMIN URINE PANEL,RANDOM URINE,RANDOM Specime n Type: URINE,RANDOM No comment entered. Ordering Provider: DAMION JEAN Report Released Date/Time: Oct 23, 2024 02:38 PM Reporting Lab: [address] [address] Performing Lab: [address] [address] CREATININE 74 mg/dL MICROALBUMIN,RANDOM 8.5 mg/dL MICRO/CREAT RATIO 114.9 mg/g Oct 26, 2024 08:42 AM [facility] CBC WITH DIFFERENTIAL BLOOD Specimen Type: BL OOD No comment entered. Ordering Provider: DAMION JEAN Report Released Date/Time: Oct 22, 2024 02:12 PM Reporting Lab: [facility] [address] [place] [address] Performing Lab: [facility] [address] [place] [address] WBC 6.24 10*3/uL 4.00-11.00 RBC 3.56 10*6/uL L 4.10-5.80 HGB 10.8 g/dL L 12.1-17.2 HCT 32.9 L 38.0-51.0 MCV 92.4 fL 80.0-100.0 MCH 30.3 pg 26.0-32.0 MCHC 32.8 g/dL 32.0-37.5 PLATELET 123 10*3/uL L 130-400 MPV 10.1 fL 8.9-12.7 LYMPH, ABSOLUTE AUTOMATED 0.63 10*3/uL L 1 .00-3.00 MONOS % AUTOMATED 9.3 MONOS, ABSOLUTE AUTOMATED 0.58 10*3/uL 0 .30-0.90 LYMPH % AUTOMATED 10.1 BASO, ABSOLUTE AUTOMATED <0.03 10*3/uL 0 .00-0.20 EOSINO, ABSOLUTE AUTOMATED 0.40 10*3/uL 0.00-0.50 NEUTRO % AUTOMATED 73.4 EOSIN % AUTOMATED 6.4 BASO % AUTOMATED 0.3 NEUTROPHIL, ABSOLUTE AUTOMATED 4.58 10*3/uL 2.00-7.00 RDW-CV 12.6 11.5-14.5 IMMATURE GRANULOCYTE, PERCENT AUTOMATED 0.5 0.0-0.5 NRBC% 0.0 NRBC# <0.01 10*3/uL 0.000-0.012 Oct 26, 2024 08:42 AM [facility] CREATININE URINE,RANDOM Specimen Type: URINE,RANDOM No comment entered. Ordering Provider: DAMION JEAN Report Released Date/Time: Oct 23, 2024 02:38 PM Reporting Lab: [address] [address] Performing Lab: [address] [address] CREATININE 74 mg/dL Oct 26, 2024 08:42 AM [facility] HGB A1C (with eAG) BLOOD Specimen Type: BLOOD No comment entered. Ordering Provider: DAMION JEAN Report Released Date/Time: Oct 23, 2024 02:38 PM Reporting Lab: [facility] [address] [facility] [address] Performing Lab: [facility] [address] [facility] [address] HGB A1C 5.6 4.0-6.0 ESTIMATE AVG GLUCOSE 114 mg/dL Oct 26, 2024 08:42 AM [facility] CYSTATIN C (INCLUDES EGFR) BLOOD Specimen Typ e: BLOOD No comment entered. Ordering Provider: DAMION JEAN Report Released Date/Time: Oct 23, 2024 02:38 PM Reporting Lab: [address] [address] Performing Lab: [address] [address] CREATININE 3.4 mg/dL H 0.6-1.3 CYSTATIN C 2.47 mg/L H 0.6-1.25 EGFR (CREATININE-CYSTATIN C) 21 mL/min/{1.73_m2} Oct 26, 2024 08:42 AM [facility] PROTEIN,TOTAL URINE,RANDOM Specimen Type: URINE,RANDOM No comment entered. Ordering Provider: DAMION JEAN Report Released Date/Time: Oct 23, 2024 02:38 PM Reporting Lab: [address] [address] Performing Lab: [address] [address] PROTEIN,TOTAL 18.5 mg/dL Oct 26, 2024 08:42 AM [facility] URINALYSIS URINE,RANDOM Specimen Type: URINE,RANDOM No comment entered. Ordering Provider: DAMION JEAN Report Released Date/Time: Oct 23, 2024 02:38 PM Reporting Lab: [address] [address] Performing Lab: [address] [address] URINE COLOR YELLOW Yellow SPECIFIC GRAVITY 1.018 1.003-1.035 UROBILINOGEN 1.0 {Angela'U}/dL 0.2-2.0 URINE BILIRUBIN NEGATIVE Negative URINE KETONES NEGATIVE Negative URINE GLUCOSE 3+ Negative URINE PROTEIN TRACE Negative URINE PH 6.0 5.0-9.0 URINE BLOOD NEGATIVE Negative URINE NITRITE NEGATIVE Negative LEUKOCYTE ESTERASE NEGATIVE Negative URINE CLARITY CLEAR Clear RBC/HPF URINE 0-2 /[HPF] 0-2 WBC/HPF URINE 0-5 /[HPF] 0-5 BACTERIA,URINE None Seen /[HPF] TOTAL CASTS 0-2 /[LPF] 0-5 TOTAL EPITHELIAL CELLS None Seen /[LPF] Oct 26, 2024 08:42 AM [facility] CPK BLOOD Specimen Type: BLOOD No comment entered. Ordering Provider: DAMION JEAN Report Released Date/Time: Oct 22, 2024 02:12 PM Reporting Lab: [facility] [address] [place] [address] Performing Lab: [facility] [address] [place] [address] CPK 87 U/L 30-223 Oct 26, 2024 08:42 AM [facility] PROTEIN,TOTAL BLOOD Specimen Type: BLOOD No comment entered. Ordering Provider: DAMION JEAN Report Released Date/Time: Oct 22, 2024 02:12 PM Reporting Lab: [facility] [address] [place] [address] Performing Lab: [facility] [address] [place] [address] PROTEIN,TOTAL 6.3 g/dL L 6.4-8.9 Oct 26, 2024 08:42 AM [facility] LDH BLOOD Specimen Type: BLOOD No comment entered. Ordering Provider: DAMION JEAN Report Released Date/Time: Oct 22, 2024 02:12 PM Reporting Lab: [facility] [address] [place] [address] Performing Lab: [facility] [address] [place] [address] LDH 146 U/L <248 Oct 26, 2024 08:42 AM [facility] TOT. BILIRUBIN BLOOD Specimen Type: BLOOD No comment entered. Ordering Provider: DAMION JEAN Report Released Date/Time: Oct 22, 2024 02:12 PM Reporting Lab: [facility] [address] [place] [address] Performing Lab: [facility] [address] [place] [address] TOT. BILIRUBIN 0.5 mg/dL 0.3-1.0 Oct 26, 2024 08:42 AM [facility] ALKALINE PHOSPHATASE BLOOD Specimen Type: BLO OD No comment entered. Ordering Provider: DAMION JEAN Report Released Date/Time: Oct 22, 2024 02:12 PM Reporting Lab: [facility] [address] [facility] [facility] [address] Performing Lab: [facility] [address] [facility] [facility] [address] ALKALINE PHOSPHATASE 39 U/L 34-104 Oct 26, 2024 08:42 AM [facility] SGPT(ALT) BLOOD Specimen Type: BLOOD No comment entered. Ordering Provider: DAMION JEAN Report Released Date/Time: Oct 22, 2024 02:12 PM Reporting Lab: [place] [address] [facility] [address] Performing Lab: [place] [address] [facility] [address] SGPT(ALT) 13 U/L 7-52 Oct 26, 2024 08:42 AM [facility] DIRECT BILIRUBIN BLOOD Specimen Type: BLOOD No comment entered. Ordering Provider: DAMION JEAN Report Released Date/Time: Oct 22, 2024 02:12 PM Reporting Lab: [place] [address] [facility] [address] Performing Lab: [place] [address] [facility] [address] DIRECT BILIRUBIN 0.1 mg/dL 0.0-0.2 Oct 26, 2024 08:42 AM [facility] SGOT(AST) BLOOD Specimen Type: BLOOD No comment entered. Ordering Provider: DAMION JEAN Report Released Date/Time: Oct 22, 2024 02:12 PM Reporting Lab: [place] [address] [facility] [address] Performing Lab: [place] [address] [facility] [address] SGOT(AST) 11 U/L L 13-39 Oct 26, 2024 08:42 AM [facility] PABLO BARRIGA,RANDOM URINE URINE,RANDOM Specimen Type: URINE,RANDOM Comment: Trace albumin detected. Negative for monoclonal light chains. This impression comfirmed by immunotyping.. Results interpreted by Dr. Malachi Jain MD. Ordering Provider: DAMION JEAN Report Released Date/Time: Oct 26, 2024 11:22 AM Reporting Lab: [address] [address] Performing Lab: [address] [address] UPEP comment IMMUNOFIXATION,URINE comment Oct 26, 2024 08:42 AM [facility] UPEP URINE,RANDOM Specimen Type: URINE ,RANDOM Comment: Trace albumin detected. Negative for monoclonal light chains. This impression comfirmed by immunotyping.. Results interpreted by Dr. Malachi Jain MD. Ordering Provider: DAMOIN JEAN Report Released Date/Time: Oct 26, 2024 11:22 AM Reporting Lab: [address] [address] Performing Lab: [address] [address] UPEP comment Oct 26, 2024 08:42 AM [facility] SPEP BLOOD Specimen Type: BLOOD Comment: Normal Pattern. Results interpreted by Dr. Malachi Jain MD. Ordering Provider: DAMION JEAN Report Released Date/Time: Oct 26, 2024 11:22 AM Reporting Lab: [address] [address] Performing Lab: [address] [address] T.P.(SPEP) 6.2 g/dL L 6.4-8.9 A/G RATIO 1.0 {ratio} 0.9-1.9 ALBUMIN FRACTION (Rel%) 51.2 44.5-56. 8 ALBUMIN FRACTION (g/dL) 3.2 g/dL 2.5-4.0 ALPHA-1 FRACTION (Rel%) 4.4 2.3-5.9 ALPHA-1 FRACTION (g/dL) 0.3 g/dL 0.2-0.4 ALPHA-2 FRACTION (g/dL) 0.9 g/dL 0.5-1.1 BETA FRACTION (g/dL) 0.9 g/dL 0.7-1.4 GAMMA FRACTION (g/dL) 0.9 g/dL 0.7-1.5 ALPHA-2 FRACTION (Rel%) 14.0 8.4-15.6 BETA FRACTION (Rel%) 15.1 13.7-20.0 GAMMA FRACTION (Rel%) 15.3 8.8-21.4 Oct 26, 2024 08:42 AM [facility] HAPTOGLOBIN BLOOD Specimen Type: BLOOD Comment: *LDH Not Performed: Oct 26, 2024@11:41 by [id number] *POULTRY HATCHERY SUPERVISOR Reason: Test added to [facility] No TCH 0620 14 *CPK Not Performed: Oct 26, 2024@11:42 by [id number] *POULTRY HATCHERY SUPERVISOR Reason: Test added to [facility] No TCH 0620 14 *LIVER PANEL Not Performed: Oct 26, 2024@11:42 by [id number] *POULTRY HATCHERY SUPERVISOR Reason: Test added to [facility] No TCH 0620 14 Ordering Provider: DAMION JEAN Report Released Date/Time: Oct 26, 2024 11:22 AM Reporting Lab: [facility] [address] [place] [address] Performing Lab: [address] [address] HAPTOGLOBIN 166 mg/dL 44-215 Oct 26, 2024 08:42 AM [facility] C-REACTIVE PROTEIN BLOOD Specimen Type: BLOOD Comment: *LDH Not Performed: Oct 26, 2024@11:41 by [id number] *POULTRY HATCHERY SUPERVISOR Reason: Test added to [facility] TC 0620 14 *CPK Not Performed: Oct 26, 2024@11:42 by [id number] *POULTRY HATCHERY SUPERVISOR Reason: Test added to [facility] No TC 0620 14 *LIVER PANEL Not Performed: Oct 26, 2024@11:42 by [id number] *POULTRY HATCHERY SUPERVISOR Reason: Test added to [facility] No TC 0620 14 Ordering Provider: DAMION JEAN Report Released Date/Time: Oct 26, 2024 11:22 AM Reporting Lab: [facility] [address] [place] [address] Performing Lab: [address] [address] C-REACTIVE PROTEIN 0.20 mg/dL <0.5 Oct 26, 2024 08:42 AM [facility] KAPPA/LAMBDA LIGHT CHAIN W/RATIO BLOOD Specim en Type: BLOOD Comment: *LDH Not Performed: Oct 26, 2024@11:41 by [id number] *POULTRY HATCHERY SUPERVISOR Reason: Test added to [facility] No TCH 0620 14 *CPK Not Performed: Oct 26, 2024@11:42 by [id number] *POULTRY HATCHERY SUPERVISOR Reason: Test added to [facility] No TC 0620 14 *LIVER PANEL Not Performed: Oct 26, 2024@11:42 by [id number] *POULTRY HATCHERY SUPERVISOR Reason: Test added to Acc No TCH 0620 14 Ordering Provider: DAMION JEAN Report Released Date/Time: Oct 26, 2024 11:22 AM Reporting Lab: [address] [id number] Performing Lab: [address] [address] [facility] QUNT 59.70 mg/L H 2.37-2 0.73 [facility] 66.10 mg/L H 4.23- 27.69 [facility] RATIO 0.90 Vital Signs: All taken on the encounter date This section contains inpatient and outpatient Vital Signs collected on the date of the Encounter. Date/Time Temperature Pulse Blood Pressure Respiratory Rate SP02 Pain Height Weight Body Mass Index Source Nov 15, 2024 08:53 AM 129/70 mm[Hg] [facility] Nov 15, 2024 08:52 AM 96.6 F 56 /min 167/93 mm[Hg] 16 /min 96 % 199.3 lb 30 [facility] Nov 15, 2024 08:51 AM 0 [facility] Encounter Notes: All associated encounter notes This section contains the clinical notes associated to the Encounter. Date/Time Encounter Note(s) Provider Source Dec 06, 2024 11:20 AM ADDENDUM: LOCAL TITLE: Addendum STANDARD TITLE: ADDENDUM DATE OF NOTE: DEC 06, 2024@11:20:21 ENTRY DATE: DEC 06, 2024@11:20:22 AUTHOR: DAMION JEAN EXP COSIGNER: URGENCY: STATUS: COMPLETED please let him know kidney function is stable but potassium borderline so we won't push up the dose of lisinopril further right NOR will we resume spironlactone for now. His hgb is better. Can we also get an update on BPs? /homar/ DAMION JEAN Attending Physician, Nephrology Signed: 12/06/2024 11:21 Receipt Acknowledged By: 12/06/2024 14:30 /homar/ THANH BRISCOE Registered Nurse --- Original Document --- 11/15/24 NEPHROLOGY OUTPATIENT FOLLOW-UP: Nephrology Outpatient Initial Note ======== 74 yo MALE is being seen in the [facility]. Followed for CKD. PMH of HTN (2012) DM (2012), LUTS (private urologist), afib on [facility] referred for evaluation of CKD with A3 level proteinuria. EGFR varied within the G3a-b range since at at least 2017 range ~35-55. Unclear etiology of variability or if recent trends are NICHOLAS, progression, or just variability. Following up for recently admitted to outside hospital for hypotension and NICHOLAS from 10/16 - 10/18. He did have low BP at home with systolic BP in the 80-90 prior to admission with associated light-headedness. Leading up to the hospitalization patient reports his routine fluid intake, though he was working outside in the heat. He does mention he was also drinking 2 sodas a day. Denies preceding vomiting or diarrhea. Per vitals that patient recorded, he was around 191 lbs the day he was admitted and historically appears to be 195 lbs - 200 lbs prior to that. Since discharge, he reports feeling improved. They did reduce his spironolactone to 12.5mg daily as well as metoprolol succinate to 12.5mg daily. We instructed him to discontinue the spironolactone as well as his lisinopril 40mg. Patient's BP readings at home since have largely been in the 120s or above, up to the 150 - 160 systolic range. Patient denies any recurrent dizziness. Medical/Surgical History Family History Social History Active Outpatient Medications (including Supplies): Active Outpatient Medications Status 1) APIXABAN 5MG TAB TAKE ONE TABLET BY MOUTH TWICE A DAY TO ACTIVE TREAT OR PREVENT CLOT Indication: FOR STROKE PREVENTION 2) CITALOPRAM HYDROBROMIDE 20MG TAB TAKE ONE TABLET BY MOUTH ACTIVE ONCE DAILY Indication: FOR MOOD 3) EMPAGLIFLOZIN 25MG TAB TAKE ONE-HALF TABLET BY MOUTH ONCE ACTIVE DAILY Indication: FOR DIABETES 4) GABAPENTIN 400MG CAP TAKE ONE CAPSULE BY MOUTH TWICE A DAY ACTIVE IN THE EVENING AND AT BEDTIME Indication: FOR NERVE PAIN 5) GLUCOSE SENSOR FREESTYLE LAZARO 3 PLUS USE 1 SENSOR ACTIVE DIRECTED EVERY 15 DAYS FOR GLUCOSE MONITORING FOR SENSORS THAT FAIL OR FALL OFF EARLY, CONTACT THE HOSPITAL MORTICIAN FOR REPLACEMENT Indication: DIABETES 6) INSULIN,GLARGINE 100 UNT/ML 3ML SOLOSTAR INJECT 15UNITS ACTIVE UNDER THE SKIN ONCE DAILY DISCARD PENS 28 DAYS AFTER FIRST USE Indication: FOR DIABETES 7) LISINOPRIL 40MG TAB TAKE ONE TABLET BY MOUTH ONCE DAILY ACTIVE Indication: TO PROTECT KIDNEYS 8) METOPROLOL SUCCINATE 50MG SA TAB TAKE ONE TABLET BY MOUTH ACTIVE TWICE A DAY FOR HEART Indication: FOR BLOOD PRESSURE 9) NITROGLYCERIN 0.4MG SL TAB DISSOLVE ONE TABLET UNDER THE ACTIVE TONGUE NEEDED FOR CHEST PAIN. IF NO IMPROVEMENT AFTER FIRST DOSE CALL 911. MAY TAKE ADDITIONAL DOSES 5 MINUTES APART. 10) PANTOPRAZOLE NA 40MG EC TAB TAKE ONE TABLET BY MOUTH TWICE A ACTIVE DAY IN THE MORNING AND AT NOON 30 MINUTES BEFORE A MEAL Indication: FOR HEARTBURN 11) PREDNISOLONE ACETATE 1% OPH SUSP INSTILL 1 DROP IN RIGHT EYE ACTIVE FOUR TIMES A DAY (SHAKE WELL BEFORE EACH USE) Indication: FOR INFLAMMATION OF THE EYE 12) RANOLAZINE 500MG SA TAB TAKE ONE TABLET BY MOUTH TWICE A DAY ACTIVE FOR CHEST PAIN Indication: FOR HEART RHYTHM 13) SEMAGLUTIDE 0.25MG/0.375ML INJ PEN 3ML INJECT 0.5MG UNDER ACTIVE THE SKIN ONCE EVERY WEEK REPLACES LIRAGLUTIDE Indication: FOR DIABETES 14) SPIRONOLACTONE 25MG TAB TAKE ONE TABLET BY MOUTH EVERY DAY ACTIVE Indication: FOR BLOOD PRESSURE 15) TRANSPARENT DRESSING 2 3/8IN X 2 3/4IN APPLY 1 DRESSING TO ACTIVE SKIN NEEDED Indication: TO SECURE GLUCOSE SENSOR Active Non-VA Medications Status 1) Non-VA CHOLECALCIF 25MCG (D3-1,000UNIT) TAB 2000UNIT MOUTH ACTIVE 16 Total Medications Allergies Physical Exam: Vitals Enter at: Nov 15, 2024@08:53:22 BP: 129/70 Vitals Enter at: Nov 15, 2024@08:52:38 P: 56 R: 16 T: 96.6 General: Well-appearing, NAD CV: RRR no murmurs Pulm: CTAB, no rales Abdomen: Soft, NT, ND Extremities: No edema LABS: CBC WITH DIFFERENTIAL; BLOOD Noelle. Date: 10/26/24 08:42 06/13/24 10:50 Test Name Result Result Units Range WBC 6.24 6.47 K/mcL 4.0 - 11.0 RBC 3.56 L 4.96 M/mcL 4.1 - 5.8 HGB 10.8 L 14.1 g/dl 12.1 - 17.2 HCT 32.9 L 42.0 % 38 - 51 MCV 92.4 84.7 fl 80 - 100 MCH 30.3 28.4 pg 26 - 32 MCHC 32.8 33.6 g/dl 32.0 - 37.5 PLATELET 123 L 149 K/mcL 130 - 400 MPV 10.1 9.8 fL 8.9 - 12.7 LYMPH, ABSOLUTE 0.63 L 1.22 K/mcL 1.0 - 3.0 NEUTROPHIL, ABS 4.58 4.43 K/mcL 2.0 - 7.0 EOSINO, ABSOLUT 0.40 0.17 K/mcL 0.0 - 0.5 BASO, ABSOLUTE <0.03 0.04 K/mcL 0.0 - 0.2 LYMPH % AUTOMAT 10.1 18.9 % - MONOS % AUTOMAT 9.3 9.1 % - MONOS, ABSOLUTE 0.58 0.59 K/mcL 0.3 - 0.9 NEUTRO % AUTOMA 73.4 68.5 % - EOSIN % AUTOMAT 6.4 2.6 % - BASO % AUTOMATE 0.3 0.6 % - RDW-CV 12.6 13.8 % 11.5 - 14.5 IMMATURE GRANUL 0.5 0.3 % 0.0 - 0.5 NRBC% 0.0 0.0 % 0 - 0.2 NRBC# <0.01 <0.01 K/mcL 0 - 0.012 COMPREHENSIVE METABOLIC PANEL; BLOOD Noelle. Date: 11/12/24 08:11 11/01/24 14:42 Test Name Result Result Units Range GLUCOSE 227 H 155 H mg/dL 74 - 109 UREA NITROGEN 33 H 47 H mg/dL 7 - 25 CREATININE 2.2 H 3.1 H mg/dL 0.6 - 1.3 SODIUM 140 137 mmol/L 136 - 145 POTASSIUM 4.2 5.2 H mmol/L 3.5 - 5.1 CHLORIDE 110 H 107 mmol/L 98 - 107 CO2 23 23 mmol/L 21 - 31 CALCIUM 9.1 9.0 mg/dL 8.6 - 10.3 ALBUMIN 4.0 4.3 g/dL 3.5 - 5.7 EGFR 31 21 - Comment - 11/12/24 08:11: R-Specimen is slightly lipemic and may cause interference. See Comment - 11/12/24 08:11: Laboratory Handbook Laboratory Interferences Table for more Comment - 11/12/24 08:11: information. Interpretation for EGFR: Estimated Glomerular Filtration Rate (eGFR) calculated using the 2020 Chronic Kidney Disease-Epidemiology (CKD-EPI) Collaboration creatinine equation; units of measure are mL/min/1.73 m2. Results are only valid for adults (=18 years) whose serum creatinine is in a steady state. eGFR calculations are not valid for patients with acute kidney injury and for patients on dialysis. Creatinine-based estimates of kidney function may also be inaccurate in patients with reduced creatinine generation due to decreased muscle mass (e.g., malnutrition, severe hypoalbuminemia, sarcopenia, chronic neuromuscular disease, amputations, severe heart failure or liver disease) and in patients with increased creatinine generation due to increased muscle mass (e.g., muscle builders, anabolic steroids) or increased dietary intake. As drug clearance is proportional to total GFR and not GFR indexed to body surface area (BSA), in individuals with a BSA substantially different than 1.73 m2, drug dosing should be based the reported eGFR value de-indexed from BSA by multiplying by the individual's BSA and dividing by 1.73. CKD is diagnosed based on abnormalities of kidney structure or function, present for >3 months, with implications for health and disease. CKD is classified and staged based on cause, eGFR and albuminuria (quantified as urine albumin to creatinine ratio). An eGFR >60 mL/min/1.73 m2 in the absence of increased urine albumin excretion or structural abnormalities does not represent CKD. eGFR (mL/min/1.73 m2) CKD stage Interpretation >=90 G1 Normal 60-89 G2 Mild decrease 45-59 G3A Mild to moderate decrease 30-44 G3B Moderate to severe decrease 15-29 G4 Severe decrease <15 G5 Kidney failure Prior to 08/03/21 eGFR Reference Range >=60 - calculated using the MDRD calculation; after 08/03/21 see test comment for eGFR Reference Range information - calculated using the CKD-EPI creatinine equation (2020). [facility] Trending charts pre-08/03/21 should not be compared to post-08/03/21. Iron 51 (10/26/24 08:42) TIBC 272 (10/26/24 08:42) Ferritin 56.7 (10/26/24 08:42) PTH 0 PO4 4.1 (11/12/24 08:11) 25VITD Collection DT Specimen Test Name Result Units Ref Range 10/26/2024 08:42 BLOOD Vitamin D,Total 39.4 ng/mL 30 - 100 Hgb A1C: 5.6 (10/26/24 08:42) Urinalysis BILIRUB: NEGATIVE (11/01/24 14:42) CASTS/IP388-0 (11/01/24 14:42) CLARITY: CLEAR (11/01/24 14:42) COLOR : YELLOW (11/01/24 14:42) EPI/CELLS:None See (11/01/24 14:42) KETONES: NEGATIVE (11/01/24 14:42) LEUKOC: NEGATIVE (11/01/24 14:42) NITRITE: NEGATIVE (11/01/24 14:42) PH: 5.0 (11/01/24 14:42) PROTEIN: 1+ (11/01/24 14:42) SP.GRAV: 1.021 (11/01/24 14:42) UR GLUC: 3+ (11/01/24 14:42) UROBILI: 1.0 (11/01/24 14:42) URblood: NEGATIVE (11/01/24 14:42) UrBact: None See (11/01/24 14:42) UrSperm: PRESENT (11/23/23 14:19) rbc/hpf: 0-2 (11/01/24 14:42) wbc/hpf: 0-5 (11/01/24 14:42) Imaging: --------- Assessment and Plan: 74 year old male who follows in the [facility]al [facility] for CKD. PMH of HTN (2012) DM (2012), LUTS (private urologist), afib on AC OSH referred for evaluation of CKD with A3 level proteinuria. EGFR varied within the G3a-b range since at at least 2017 range ~35-55. Unclear etiology of variability or if recent trends are NICHOLAS, progression, or just variability. Following up after recently hospitalization for hypotension, NICHOLAS suspect hypovolemic and ATN. Renal function has appeared to recover back to his baseline (most recent creatinine 2.2 with eGFR of 31 on 11/12/24). However, his overall trend has been progressive decline in kidney function. Recent vitals indicate BP above goal at home. Recommendations: -Advised patient to reduce/eliminate sugary beverage intake, recommended adequate hydration with water -Restart Lisinopril at 20mg daily, anticipate uptitration -Continue metoprolol succinate at 12.5mg daily -Continue to hold spironolactone for now -Repeat RFP in 2 weeks -RN phone visit for BP check in 2 weeks -RV in [address] Damion Jean. /homar/ MAYITO ORTEGA Internal Medicine Resident Signed: 11/15/2024 10:57 /homar/ DAMION JEAN Attending Physician, Nephrology Cosigned: 11/15/2024 13:30 11/15/2024 ADDENDUM STATUS: COMPLETED Alerting RNCM for phone visit for BP check in 2 weeks. /homar/ MAYITO ORTEGA Internal Medicine Resident Signed: 11/15/2024 12:38 /es/ THANH BRISCOE Registered Nurse Cosigned: 11/15/2024 15:57 11/15/2024 ADDENDUM STATUS: COMPLETED Seen with Dr. Ortega. Please see the housestaff note for additional history and exam details. Nephrology Follow up HPI: Followed for CKD. PMH of HTN (2012) DM (2012), LUTS (private urologist), afib on AC OSH referred for evaluation of CKD with A3 level proteinuria. EGFR varied within the G3a-b range since at at least 2016 range ~35-55. Unclear etiology of variability or if recent trends are NICHOLAS, progression, or just variability. His current 's previous was on dialysis ~10/2024 developed an episode of NICHOLAS likely due to ATN (based on trajectory but etiology is unclear but having relative hypotension and presycopal episodes). LAST VISIT: 07/05/2024: no changes today. continue close BP monitoring given lability, alert me in interim if any concerns RTC 4 months, labs prior INTERVAL HISTORY: No clear reason for his ATN, though likely due to hypovolemia in the setting of extra yard work, heat, hydrating with sugar containing drinks in setting of sglt2i. Medications specifically reviewed: lisinopril 40 mg daily (ON HOLD) metoprolol succinate 12.5 mg BID spironolactone 25 mg daily (ON HOLD) apixaban atorvastatin semaglutide empa glargine ranolazine gabapentin citalopram finasteride tamsulosin pantoprazole D3 Exam: Deferred Labs: Reviewed in CPRS, of particular note: 11/12 Cr 2.2 back to baseline though historically been quite variable K 4.2 ( back to normal) bicarb 23 phos 4.1 uacr 115 New Imaging: IMPRESSION: CKD [id number] due to DM/HTN/CVD DETAILED RECOMMENDATIONS: CKD: has recovered from his ATN HTN: Goal BP 120/80 by home monitoring without orthostasis, reviewed proper BP technique. BP now rising, resume lisinopril at 20 mg daily. DM: Target A1C ~7 as tolerated without hypoglycemia, resume ACEi, on sglp1a, on sglt2i. holding mra for now, though may resume. 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 labs in 2 wks hgb has been lower, recheck in 2 weeks with f/u labs BP update in 2 weeks. anticipate returning to lisinopril 40 mg daily with spironolactone by fall. anticipate need for ongoing lab work in about 1 month after next check RTC 4 months to ensure ongoing titration. /homar/ DAMION JEAN Attending Physician, Nephrology Signed: 11/15/2024 13:32 12/04/2024 ADDENDUM STATUS: COMPLETED Left VM to call Renal RNCM regarding labs and BPs. /homar/ THANH BRISCOE Registered Nurse Signed: 12/04/2024 11:22 12/06/2024 ADDENDUM STATUS: COMPLETED Left VM to call Renal RNCM. /homar/ THANH BRISCOE Registered Nurse Signed: 12/06/2024 14:28 DAMION JEAN [facility] Nov 15, 2024 09:30 AM NEPHROLOGY OUTPATI ENT NOTE: LOCAL TITLE: NEPHROLOGY OUTPATIENT FOLLOW-UP STANDARD TITLE: NEPHROLOGY OUTPATIENT NOTE DATE OF NOTE: NOV 15, 2024@09:30 ENTRY DATE: NOV 15, 2024@09:31:21 AUTHOR: MAYITO ORTEGA EXP COSIGNER: DAMION JEAN URGENCY: STATUS: COMPLETED NEPHROLOGY OUTPATIENT FOLLOW-UP Has ADDENDA Nephrology Outpatient Initial Note ======== 74 yo MALE is being seen in the [facility]al [facility]. Followed for CKD. PMH of HTN (2013) DM (2013), LUTS (private urologist), afib on AC OSH referred for evaluation of CKD with A3 level proteinuria. EGFR varied within the G3a-b range since at at least 2017 range ~35-55. Unclear etiology of variability or if recent trends are NICHOLAS, progression, or just variability. Following up for recently admitted to outside hospital for hypotension and NICHOLAS from 10/16 - 10/18. He did have low BP at home with systolic BP in the 80-90 prior to admission with associated light-headedness. Leading up to the hospitalization patient reports his routine fluid intake, though he was working outside in the heat. He does mention he was also drinking 2 sodas a day. Denies preceding vomiting or diarrhea. Per vitals that patient recorded, he was around 191 lbs the day he was admitted and historically appears to be 195 lbs - 200 lbs prior to that. Since discharge, he reports feeling improved. They did reduce his spironolactone to 12.5mg daily as well as metoprolol succinate to 12.5mg daily. We instructed him to discontinue the spironolactone as well as his lisinopril 40mg. Patient's BP readings at home since have largely been in the 120s or above, up to the 150 - 160 systolic range. Patient denies any recurrent dizziness. Medical/Surgical History Family History Social History Active Outpatient Medications (including Supplies): Active Outpatient Medications Status 1) APIXABAN 5MG TAB TAKE ONE TABLET BY MOUTH TWICE A DAY TO ACTIVE TREAT OR PREVENT CLOT Indication: FOR STROKE PREVENTION 2) CITALOPRAM HYDROBROMIDE 20MG TAB TAKE ONE TABLET BY MOUTH ACTIVE ONCE DAILY Indication: FOR MOOD 3) EMPAGLIFLOZIN 25MG TAB TAKE ONE-HALF TABLET BY MOUTH ONCE ACTIVE DAILY Indication: FOR DIABETES 4) GABAPENTIN 400MG CAP TAKE ONE CAPSULE BY MOUTH TWICE A DAY ACTIVE IN THE EVENING AND AT BEDTIME Indication: FOR NERVE PAIN 5) GLUCOSE SENSOR FREESTYLE LAZARO 3 PLUS USE 1 SENSOR ACTIVE DIRECTED EVERY 15 DAYS FOR GLUCOSE MONITORING FOR SENSORS THAT FAIL OR FALL OFF EARLY, CONTACT THE HOSPITAL MORTICIAN FOR REPLACEMENT Indication: DIABETES 6) INSULIN,GLARGINE 100 UNT/ML 3ML SOLOSTAR INJECT 15UNITS ACTIVE UNDER THE SKIN ONCE DAILY DISCARD PENS 28 DAYS AFTER FIRST USE Indication: FOR DIABETES 7) LISINOPRIL 40MG TAB TAKE ONE TABLET BY MOUTH ONCE DAILY ACTIVE Indication: TO PROTECT KIDNEYS 8) METOPROLOL SUCCINATE 50MG SA TAB TAKE ONE TABLET BY MOUTH ACTIVE TWICE A DAY FOR HEART Indication: FOR BLOOD PRESSURE 9) NITROGLYCERIN 0.4MG SL TAB DISSOLVE ONE TABLET UNDER THE ACTIVE TONGUE NEEDED FOR CHEST PAIN. IF NO IMPROVEMENT AFTER FIRST DOSE CALL 911. MAY TAKE ADDITIONAL DOSES 5 MINUTES APART. 10) PANTOPRAZOLE NA 40MG EC TAB TAKE ONE TABLET BY MOUTH TWICE A ACTIVE DAY IN THE MORNING AND AT NOON 30 MINUTES BEFORE A MEAL Indication: FOR HEARTBURN 11) PREDNISOLONE ACETATE 1% OPH SUSP INSTILL 1 DROP IN RIGHT EYE ACTIVE FOUR TIMES A DAY (SHAKE WELL BEFORE EACH USE) Indication: FOR INFLAMMATION OF THE EYE 12) RANOLAZINE 500MG SA TAB TAKE ONE TABLET BY MOUTH TWICE A DAY ACTIVE FOR CHEST PAIN Indication: FOR HEART RHYTHM 13) SEMAGLUTIDE 0.25MG/0.375ML INJ PEN 3ML INJECT 0.5MG UNDER ACTIVE THE SKIN ONCE EVERY WEEK REPLACES LIRAGLUTIDE Indication: FOR DIABETES 14) SPIRONOLACTONE 25MG TAB TAKE ONE TABLET BY MOUTH EVERY DAY ACTIVE Indication: FOR BLOOD PRESSURE 15) TRANSPARENT DRESSING 2 3/8IN X 2 3/4IN APPLY 1 DRESSING TO ACTIVE SKIN NEEDED Indication: TO SECURE GLUCOSE SENSOR Active Non-VA Medications Status 1) Non-VA CHOLECALCIF 25MCG (D3-1,000UNIT) TAB 2000UNIT MOUTH ACTIVE 16 Total Medications Allergies Physical Exam: Vitals Enter at: Nov 15, 2024@08:53:22 BP: 129/70 Vitals Enter at: Nov 15, 2024@08:52:38 P: 56 R: 16 T: 96.6 General: Well-appearing, NAD CV: RRR no murmurs Pulm: CTAB, no rales Abdomen: Soft, NT, ND Extremities: No edema LABS: CBC WITH DIFFERENTIAL; BLOOD Noelle. Date: 10/26/24 08:42 06/13/24 10:50 Test Name Result Result Units Range WBC 6.24 6.47 K/mcL 4.0 - 11.0 RBC 3.56 L 4.96 M/mcL 4.1 - 5.8 HGB 10.8 L 14.1 g/dl 12.1 - 17.2 HCT 32.9 L 42.0 % 38 - 51 MCV 92.4 84.7 fl 80 - 100 MCH 30.3 28.4 pg 26 - 32 MCHC 32.8 33.6 g/dl 32.0 - 37.5 PLATELET 123 L 149 K/mcL 130 - 400 MPV 10.1 9.8 fL 8.9 - 12.7 LYMPH, ABSOLUTE 0.63 L 1.22 K/mcL 1.0 - 3.0 NEUTROPHIL, ABS 4.58 4.43 K/mcL 2.0 - 7.0 EOSINO, ABSOLUT 0.40 0.17 K/mcL 0.0 - 0.5 BASO, ABSOLUTE <0.03 0.04 K/mcL 0.0 - 0.2 LYMPH % AUTOMAT 10.1 18.9 % - MONOS % AUTOMAT 9.3 9.1 % - MONOS, ABSOLUTE 0.58 0.59 K/mcL 0.3 - 0.9 NEUTRO % AUTOMA 73.4 68.5 % - EOSIN % AUTOMAT 6.4 2.6 % - BASO % AUTOMATE 0.3 0.6 % - RDW-CV 12.6 13.8 % 11.5 - 14.5 IMMATURE GRANUL 0.5 0.3 % 0.0 - 0.5 NRBC% 0.0 0.0 % 0 - 0.2 NRBC# <0.01 <0.01 K/mcL 0 - 0.012 COMPREHENSIVE METABOLIC PANEL; BLOOD Noelle. Date: 11/12/24 08:11 11/01/24 14:42 Test Name Result Result Units Range GLUCOSE 227 H 155 H mg/dL 74 - 109 UREA NITROGEN 33 H 47 H mg/dL 7 - 25 CREATININE 2.2 H 3.1 H mg/dL 0.6 - 1.3 SODIUM 140 137 mmol/L 136 - 145 POTASSIUM 4.2 5.2 H mmol/L 3.5 - 5.1 CHLORIDE 110 H 107 mmol/L 98 - 107 CO2 23 23 mmol/L 21 - 31 CALCIUM 9.1 9.0 mg/dL 8.6 - 10.3 ALBUMIN 4.0 4.3 g/dL 3.5 - 5.7 EGFR 31 21 - Comment - 11/12/24 08:11: R-Specimen is slightly lipemic and may cause interference. See Comment - 11/12/24 08:11: Laboratory Handbook Laboratory Interferences Table for more Comment - 11/12/24 08:11: information. Interpretation for EGFR: Estimated Glomerular Filtration Rate (eGFR) calculated using the 2020 Chronic Kidney Disease-Epidemiology (CKD-EPI) Collaboration creatinine equation; units of measure are mL/min/1.73 m2. Results are only valid for adults (=18 years) whose serum creatinine is in a steady state. eGFR calculations are not valid for patients with acute kidney injury and for patients on dialysis. Creatinine-based estimates of kidney function may also be inaccurate in patients with reduced creatinine generation due to decreased muscle mass (e.g., malnutrition, severe hypoalbuminemia, sarcopenia, chronic neuromuscular disease, amputations, severe heart failure or liver disease) and in patients with increased creatinine generation due to increased muscle mass (e.g., muscle builders, anabolic steroids) or increased dietary intake. As drug clearance is proportional to total GFR and not GFR indexed to body surface area (BSA), in individuals with a BSA substantially different than 1.73 m2, drug dosing should be based the reported eGFR value de-indexed from BSA by multiplying by the individual's BSA and dividing by 1.73. CKD is diagnosed based on abnormalities of kidney structure or function, present for >3 months, with implications for health and disease. CKD is classified and staged based on cause, eGFR and albuminuria (quantified as urine albumin to creatinine ratio). An eGFR >60 mL/min/1.73 m2 in the absence of increased urine albumin excretion or structural abnormalities does not represent CKD. eGFR (mL/min/1.73 m2) CKD stage Interpretation >=90 G1 Normal 60-89 G2 Mild decrease 45-59 G3A Mild to moderate decrease 30-44 G3B Moderate to severe decrease 15-29 G4 Severe decrease <15 G5 Kidney failure Prior to 08/03/21 eGFR Reference Range >=60 - calculated using the MDRD calculation; after 08/03/21 see test comment for eGFR Reference Range information - calculated using the CKD-EPI creatinine equation (2020). [facility] Trending charts pre-08/03/21 should not be compared to post-08/03/21. Iron 51 (10/26/24 08:42) TIBC 272 (10/26/24 08:42) Ferritin 56.7 (10/26/24 08:42) PTH 0 PO4 4.1 (11/12/24 08:11) 25VITD Collection DT Specimen Test Name Result Units Ref Range 10/26/2024 08:42 BLOOD Vitamin D,Total 39.4 ng/mL 30 - 100 Hgb A1C: 5.6 (10/26/24 08:42) Urinalysis BILIRUB: NEGATIVE (11/01/24 14:42) CASTS/LL691-9 (11/01/24 14:42) CLARITY: CLEAR (11/01/24 14:42) COLOR : YELLOW (11/01/24 14:42) EPI/CELLS:None See (11/01/24 14:42) KETONES: NEGATIVE (11/01/24 14:42) LEUKOC: NEGATIVE (11/01/24 14:42) NITRITE: NEGATIVE (11/01/24 14:42) PH: 5.0 (11/01/24 14:42) PROTEIN: 1+ (11/01/24 14:42) SP.GRAV: 1.021 (11/01/24 14:42) UR GLUC: 3+ (11/01/24 14:42) UROBILI: 1.0 (11/01/24 14:42) URblood: NEGATIVE (11/01/24 14:42) UrBact: None See (11/01/24 14:42) UrSperm: PRESENT (11/23/23 14:19) rbc/hpf: 0-2 (11/01/24 14:42) wbc/hpf: 0-5 (11/01/24 14:42) Imaging: --------- Assessment and Plan: 74 year old male who follows in the Renal Clinic for CKD. PMH of HTN (2012) DM (2012), LUTS (private urologist), afib on AC OSH referred for evaluation of CKD with A3 level proteinuria. EGFR varied within the G3a-b range since at at least 2017 range ~35-55. Unclear etiology of variability or if recent trends are NICHOLAS, progression, or just variability. Following up after recently hospitalization for hypotension, NICHOLAS suspect hypovolemic and ATN. Renal function has appeared to recover back to his baseline (most recent creatinine 2.2 with eGFR of 31 on 11/12/24). However, his overall trend has been progressive decline in kidney function. Recent vitals indicate BP above goal at home. Recommendations: -Advised patient to reduce/eliminate sugary beverage intake, recommended adequate hydration with water -Restart Lisinopril at 20mg daily, anticipate uptitration -Continue metoprolol succinate at 12.5mg daily -Continue to hold spironolactone for now -Repeat RFP in 2 weeks -RN phone visit for BP check in 2 weeks -RV in [address] Damion Jean. /homar/ MAYITO ORTEGA Internal Medicine Resident Signed: 11/15/2024 10:57 /homar/ DAMION JEAN Attending Physician, Nephrology Cosigned: 11/15/2024 13:30 11/15/2024 ADDENDUM STATUS: COMPLETED Alerting RNCM for phone visit for BP check in 2 weeks. /homar/ MAYITO ORTEGA Internal Medicine Resident Signed: 11/15/2024 12:38 /es/ THANH BRISCOE Registered Nurse Cosigned: 11/15/2024 15:57 11/15/2024 ADDENDUM STATUS: COMPLETED Seen with Dr. Ortega. Please see the housestaff note for additional history and exam details. Nephrology Follow up HPI: Followed for CKD. PMH of HTN (2012) DM (2012), LUTS (private urologist), afib on AC OSH referred for evaluation of CKD with A3 level proteinuria. EGFR varied within the G3a-b range since at at least 2017 range ~35-55. Unclear etiology of variability or if recent trends are NICHOLAS, progression, or just variability. His current 's previous was on dialysis ~10/2024 developed an episode of NICHOLAS likely due to ATN (based on trajectory but etiology is unclear but having relative hypotension and presycopal episodes). LAST VISIT: 07/05/2024: no changes today. continue close BP monitoring given lability, alert me in interim if any concerns RTC 4 months, labs prior INTERVAL HISTORY: No clear reason for his ATN, though likely due to hypovolemia in the setting of extra yard work, heat, hydrating with sugar containing drinks in setting of sglt2i. Medications specifically reviewed: lisinopril 40 mg daily (ON HOLD) metoprolol succinate 12.5 mg BID spironolactone 25 mg daily (ON HOLD) apixaban atorvastatin semaglutide empa glargine ranolazine gabapentin citalopram finasteride tamsulosin pantoprazole D3 Exam: Deferred Labs: Reviewed in [facility], of particular note: 11/12 Cr 2.2 back to baseline though historically been quite variable K 4.2 ( back to normal) bicarb 23 phos 4.1 uacr 115 New Imaging: IMPRESSION: CKD [id number] due to DM/HTN/CVD DETAILED RECOMMENDATIONS: CKD: has recovered from his ATN HTN: Goal BP 120/80 by home monitoring without orthostasis, reviewed proper BP technique. BP now rising, resume lisinopril at 20 mg daily. DM: Target A1C ~7 as tolerated without hypoglycemia, resume ACEi, on sglp1a, on sglt2i. holding mra for now, though may resume. 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 labs in 2 wks hgb has been lower, recheck in 2 weeks with f/u labs BP update in 2 weeks. anticipate returning to lisinopril 40 mg daily with spironolactone by fall. anticipate need for ongoing lab work in about 1 month after next check RTC 4 months to ensure ongoing titration. /homar/ DAMION JEAN Attending Physician, Nephrology Signed: 11/15/2024 13:32 12/04/2024 ADDENDUM STATUS: COMPLETED Left VM to call Renal RNCM regarding labs and BPs. /homar/ THANH BRISCOE Registered Nurse Signed: 12/04/2024 11:22 12/06/2024 ADDENDUM STATUS: COMPLETED please let him know kidney function is stable but potassium borderline so we won't push up the dose of lisinopril further right NOR will we resume spironlactone for now. His hgb is better. Can we also get an update on BPs? /homar/ DAMION JEAN Attending Physician, Nephrology Signed: 12/06/2024 11:21 Receipt Acknowledged By: 12/06/2024 14:30 /homar/ THANH BRISCOE Registered Nurse 12/06/2024 ADDENDUM STATUS: COMPLETED Left VM to call Renal RNCM. /homar/ THANH BRISCOE Registered Nurse Signed: 12/06/2024 14:28 MAYITO ORTEGA [facility] Nov 15, 2024 08:51 AM PRIMARY CARE NURSI NG OUTPATIENT NOTE: LOCAL TITLE: CABLE TOOL OPERATOR NURSING STANDARD TITLE: PRIMARY CARE NURSING OUTPATIENT NOTE DATE OF NOTE: NOV 15, 2024@08:51 ENTRY DATE: NOV 15, 2024@08:51:47 AUTHOR: DAVIDE GONZALEZ EXP COSIGNER: URGENCY: STATUS: COMPLETED N-Pain Screen: Are you currently experiencing pain? No: Pain Score: 0 /homar/ DAVIDE GONZALEZ LPN Signed: 11/15/2024 08:54 DAVIDE GONZALEZ [facility]
--- OUTSIDE RECORDS SUMMARY | 2024-12-03 06:53 | XMS_ITS | Encounter Summary ---
Author Organization [facility] tem Address [id number] [address] [place] [address] Care Team Providers Care Plant Utility Person Name Role Phone Mason Membreno MD Primary Care Provider [phone] Reason for Referral * Diagnostic Imaging (Routine) - Closed Specialty Diagnoses / Procedures Referred By Contac t Referred To Contact Radiology Diagnoses Sacroiliitis, not elsewhere classified Procedures MR sacrum without contrast Kortney Montes De Oca APRN-MASON HELPER [address] [place] [address] Phone: tel: fax: Referral ID Status Reason Start Date Expiration Date Visits Re quested Visits Authorized [id number] Closed 11/29/2024 11/29/2025 1 1 Reason for Visit * Diagnostic Imaging (Routine) - Closed Specialty Diagnoses / Procedures Referred By Contac t Referred To Contact Radiology Diagnoses Sacroiliitis, not elsewhere classified Procedures MR sacrum without contrast Kortney Montes De Oca APRN-MASON HELPER [address] [place] [address] Phone: tel: fax: Referral ID Status Reason Start Date Expiration Date Visits Re quested Visits Authorized [id number] Closed 11/29/2024 11/29/2025 1 1 Encounter Details Date Type Department Care Team (Latest Contact Info) Description 12/03/2024 6:53 AM EDT Hospital Encounter [facility] - MRI Imaging [address] [place] [address] Sacroiliitis, not elsewhere classified Discharge Disposition: Home Social History Tobacco Use Types Packs/Day Years Used Date Smoking Tobacco: Never Smokeless Tobacco: Never Childcare Answer Date Recorded Childcare Unknown 10/18/2018 Employment Answer Date Recorded Employment Unknown 10/18/2018 Purpose - Life Answer Date Recorded Purpose and direction in life Unknown Sex and Gender Information Value Date Recorded Sex Assigned at Not on file Legal Sex Male 11:34 AM EDT Gender Identity Not on file Sexual Orientation Not on file documented as of this encounter Medications at Time of Discharge amLODIPine (NORVASC) 5 mg tablet Take 5 mg by mouth daily. 08/31/2019 aspirin 500 MG EC tablet Take 81 mg by mouth. atorvastatin (LIPITOR) 40 mg tablet Take 40 mg by mouth daily. carvediloL (COREG) 12.5 mg tablet Take 12.5 mg by mouth 2 (two) times a day with meals. citalopram (CeleXA) 20 mg tablet Take 20 mg by mouth daily. 09/08/2019 cloNIDine (CATAPRES) 0.1 mg tablet Take 0.1 mg by mouth 2 (two) times a day. 09/08/2019 finasteride (PROSCAR) 5 mg tablet Take 5 mg by mouth. insulin aspart U-100 (NovoLOG U-100 Insulin aspart) 100 unit/mL injection Inject 10 Units under the skin. Slide scale insulin degludec 100 unit/mL solution Inject 70 Units under the skin. liraglutide (VICTOZA) 0.6 mg/0.1 mL (18 mg/3 mL) pen injector Inject 1.8 mg under the skin daily. omeprazole (PriLOSEC) 20 mg capsule Take 20 mg by mouth daily. ondansetron ODT (ZOFRAN-ODT) 8 mg disintegrating tablet Dissolve 1 tablet (8 mg total) on tongue every 8 (eight) hours as needed for nausea or vomiting. 20 tablet 10/08/2019 oxybutynin (DITROPAN) 5 mg tablet TAKE 1 TAB(S) BY MOUTH TWICE A DAY NEEDED FOR URINARY DISCOMFORT 09/08/2019 oxyCODONE-acetamino phen (PERCOCET) 5-325 mg per tabletIndications:T ricompartment osteoarthritis of right knee One or two tablets every 6 hours as needed for pain 40 tablet 10/07/2019 sennosides-docusate sodium (SENOKOT-S) 8.6-50 mg Take 1 tablet by mouth 2 (two) times a day as needed for constipation. 10/08/2019 tamsulosin (FLOMAX) 0.4 mg capsule Take 0.4 mg by mouth. documented as of this encounter Plan of Treatment Upcoming Encounters Date Type Department Care Team (Late st Contact Info) Description 12/13/2024 3:45 PM EDT Appointment [facility] [address] [place] [address] Sacroiliitis, not elsewhere classified documented as of this encounter Goals Goal Patient Goal Type Associated Problems Recent Progress Patient-Stated? Author Improve mobility General Yes Lakia Ochoa, RN Note: Evaluation of progress towards goal: Maximize work with PT at discharge to strengthen R knee documented as of this encounter Procedures Procedure Name Priority Date/Time Associated Diagnosis Comments MR SACRUM WO CONT Routine 12/03/2024 7:4 8 AM EDT Sacroiliitis, not elsewhere classified documented in this encounter Results * MR sacrum without contrast (12/03/2024 7:48 AM EDT) Anatomical Region Laterality Modality MSK, Pelvis, MSK Covera N/A Magnetic Resonance 12/05/2024 1:50 PM EDT Narrative 12/05/2024 1:58 PM EDT HISTORY AND/OR TECH NOTES Left side lower back pain going down left leg with burning x 6 months No recent injury Series 5 PROCEDURE MRI of the sacrum and SI joints Noncontrast imaging COMPARISON Lumbar from the same day reported separate IMPRESSION: No suspicious fluid, edema, or active erosive change typical sacroiliitis No visible sacral fracture There is some arthritic change with bone remodeling and hypertrophy most notably at the anterior right greater than left SI joint where there is partial fusion There is also some chronic appearing edema and bone remodeling along the iliac bone at the lateral margin of the posterior inferior left SI joint which may be sequelae chronic arthritis and/or underlying chondroid lesion or other nonaggressive process Mildly enlarged and heterogeneous prostate without abnormal dilated bladder, large lymph nodes or sclerotic/blastic bone lesions seen Mild edema posterior paraspinal tissues in the lower lumbar region consistent with the underlying facet arthritic changes. Refer to the detailed MRI spine There is slight atypical circumferential wall thickening and signal at the anus with slight gaseous distention of the rectum is proximal to that. Unclear if this is physiologic, muscle spasm, inflammation or other process. Correlate for abnormal symptoms or abnormality on exam that would prompt additional workup Finalized by Jamari Edwards MD on 12/05/2024 1:58 PM Procedure Note Jamari Edwards MD - 12/05/2024 HISTORY AND/OR TECH NOTES Left side lower back pain going down left leg with burning x 6 months No recent injury Series 5 PROCEDURE MRI of the sacrum and SI joints Noncontrast imaging COMPARISON Lumbar from the same day reported separate IMPRESSION: No suspicious fluid, edema, or active erosive change typicalsacroiliitis No visible sacral fracture There is some arthritic change with bone remodeling and hypertrophy mostnotably at the anterior right greater than left SI joint where there ispartial fusion There is also some chronic appearing edema and bone remodeling along theiliac bone at the lateral margin of the posterior inferior left SI jointwhich may be sequelae chronic arthritis and/or underlying chondroid lesionor other nonaggressive process Mildly enlarged and heterogeneous prostate without abnormal dilatedbladder, large lymph nodes or sclerotic/blastic bone lesions seen Mild edema posterior paraspinal tissues in the lower lumbar regionconsistent with the underlying facet arthritic changes. Refer to thedetailed MRI spine There is slight atypical circumferential wall thickening and signal at theanus with slight gaseous distention of the rectum is proximal to that.Unclear if this is physiologic, muscle spasm, inflammation or otherprocess. Correlate for abnormal symptoms or abnormality on exam that wouldprompt additional workup Finalized by Jamari Edwards MD on 12/05/2024 1:58 PM Kortney Montes De Oca EMBEDDED LINUX ENGINEER-MASON HELPER IMG MRI ORDERABLES Fi nal Result documented in this encounter Visit Diagnoses Diagnosis Sacroiliitis, not elsewhere classified Sacroiliitis, not elsewhere classified documented in this encounter Care Teams Plant Utility Person Relationship Specialty Start Date End Date Mason Membreno MD [address] [id number] PCP - General Internal Medicine 12/14/18 documented as of this encounter
--- OUTSIDE RECORDS SUMMARY | 2024-12-03 06:54 | XMS_ITS | Encounter Summary ---
Author Organization [facility] tem Address [id number] [address] [place] [address] Care Team Providers Care Senior Accounting Associate Name Role Phone Mason Membreno MD Primary Care Provider [phone] Reason for Referral * Diagnostic Imaging (Routine) - Closed Specialty Diagnoses / Procedures Referred By Contac t Referred To Contact Radiology Diagnoses Lumbar radiculopathy Procedures MR lumbar spine without contrast Kortney Montes De Oca APRN-MARKET RESEARCH SENIOR PROJECT MANAGER [address] [place] [address] Phone: tel: fax: Referral ID Status Reason Start Date Expiration Date Visits Re quested Visits Authorized [id number] Closed 11/29/2024 11/29/2025 1 1 Reason for Visit * Diagnostic Imaging (Routine) - Closed Specialty Diagnoses / Procedures Referred By Contac t Referred To Contact Radiology Diagnoses Lumbar radiculopathy Procedures MR lumbar spine without contrast Kortney Montes De Oca APRN-MARKET RESEARCH SENIOR PROJECT MANAGER [address] [place] [address] Phone: tel: fax: Referral ID Status Reason Start Date Expiration Date Visits Re quested Visits Authorized [id number] Closed 11/29/2024 11/29/2025 1 1 Encounter Details Date Type Department Care Team (Latest Contact Info) Description 12/03/2024 6:54 AM EDT - 12/03/2024 11:59 PM EDT Hospital Encounter [facility] - MRI Imaging [address] [place] [phone] Lumbar radiculopathy Discharge Disposition: Home Social History Tobacco Use [...] Info) Description 12/13/2024 3:45 PM EDT Appointment [facility] [address] [place] [address] Sacroiliitis, not elsewhere classified documented as of this encounter Goals Goal Patient Goal Type Associated Problems Recent Progress Patient-Stated? Author Improve mobility General Yes Lakia Ochoa, RN Note: Evaluation of progress towards goal: Maximize work with PT at discharge to strengthen R knee documented as of this encounter Procedures Procedure Name Priority Date/Time Associated Diagnosis Comments MR LUMBAR SPINE WO CONT Routine 12/03/2024 7:47 AM EDT Lumbar radiculopathy documented in this encounter Results * MR lumbar spine without contrast (12/03/2024 7:47 AM EDT) Anatomical Region Laterality Modality MSK, Neuro, Spine, L-spine, Spine Covera N/A Magnetic Resonance 12/05/2024 6:59 AM EDT Narrative 12/05/2024 7:01 AM EDT CLINICAL INFORMATION: Lumbar radiculopathy TECHNIQUE: MR LUMBAR SPINE WO CONT Multisequence multiplanar imaging of the lumbar spine was obtained utilizing a routine lumbar protocol. Conus tip noted at L1. No appreciable abnormality cauda equina. Inversion recovery images show normal bone marrow signal. At the L5-S1 level there are hypertrophic degenerative changes with mild neural foraminal narrowing. Central canal is patent. Left L5-S1 facet hypertrophy with synovial outpouching potentially produce encroachment upon the left S1 nerve root. At the L4-5 level there are degenerative changes without significant central canal or neural foraminal stenosis. At the L3-4 level degenerative changes noted without disc herniation or canal stenosis. L1-2 and L2 and S3 levels unremarkable. Incidental renal cysts appreciated bilaterally. IMPRESSION: Degenerative changes potentially most significant at L5-S1 where there are hypertrophic facets and ligaments predominantly to the left of midline with synovial outpouching which may produce encroachment upon the left S1 nerve root. Finalized by Allen Hughes MD on 12/05/2024 7:01 AM Procedure Note Allen Hughes MD - 12/05/2024 CLINICAL INFORMATION: Lumbar radiculopathy TECHNIQUE: MR LUMBAR SPINE WO CONT Multisequence multiplanar imaging of the lumbar spine was obtainedutilizing a routine lumbar protocol. Conus tip noted at L1. No appreciableabnormality cauda equina. Inversion recovery images show normal bonemarrow signal. At the L5-S1 level there are hypertrophic degenerativechanges with mild neural foraminal narrowing. Central canal is patent. Left L5-S1 facethypertrophy with synovial outpouching potentially produce encroachmentupon the left S1 nerve root. At the L4-5 level there are degenerativechanges without significant central canal or neural foraminal stenosis. Atthe L3-4 level degenerative changes noted without disc herniation or canal stenosis.L1-2 and L2 and S3 levels unremarkable. Incidental renal cysts appreciatedbilaterally. IMPRESSION: Degenerative changes potentially most significant at L5-S1 where there arehypertrophic facets and ligaments predominantly to the left of midlinewith synovial outpouching which may produce encroachment upon the left [id number] root. Finalized by Allen Hughes MD on 12/05/2024 7:01 AM Kortney Montes De Oca WRAP KNITTING MACHINE OPERATOR-MARKET RESEARCH SENIOR PROJECT MANAGER IMG MRI ORDERABLES Fi nal Result documented in this encounter Visit Diagnoses Diagnosis Lumbar radiculopathy Thoracic or lumbosacral neuritis or radiculitis, unspecified Sacroiliitis, not elsewhere classified documented in this encounter Care Teams Senior Accounting Associate Relationship Specialty Start Date End Date Mason Membreno MD [address] [address] PCP - General Internal Medicine 12/14/18 documented as of this encounter
--- OUTSIDE RECORDS SUMMARY | 2024-12-05 09:00 | XMS_ITS | Encounter Summary ---
Author Organization [facility] Address [address] [facility] [place] [address] Care Team Providers Care Photolithographer Name Role Phone Mason Membreno MD Unavailable [phone] Mason Membreno MD Primary Care Provider [phone] Reason for Visit * Reason Comments CKD/AKF Med Refill Albuterol mdi-- DM c lyde Encounter Details Date Type Department Care Team (Late st Contact Info) Description 12/05/2024 9:00 AM EDT Office Visit [facility] [address] [facility] [[email or web address] [address] [place] [address] Mason Membreno MD [address] [facility] [address] [place] [address] Mild intermittent asthma without complication (HCC) (Primary Dx); Pain of left hand; Hypertrophic cardiomyopathy (HCC) Social History Tobacco Use Types Packs/Day Years [...] Date Recorded Patient Health Questionnaire-2 Score 0 12/05/2024 Sex and Gender Information Value Date Recorded Sex Assigned at Not on file Legal Sex Male 7:01 PM EDT Gender Identity Not on file Sexual Orientation Not on file documented as of this encounter Last Filed Vital Signs Vital Sign Reading Time Taken Comments Blood Pressure 132/78 12/05/2024 8:55 AM EDT Pulse 60 12/05/2024 8:55 AM EDT Temperature - - Respiratory Rate - - Oxygen Saturation 97% 12/05/2024 8:55 AM EDT Inhaled Oxygen Concentration - - Weight 90.7 kg (200 lb) 12/05/2024 8:55 AM EDT Height 172.7 cm (5' 8 ) 12/05/2024 8:55 AM EDT Body Mass Index 30.41 12/05/2024 8:55 AM EDT documented in this encounter Functional Status * Over the past 2 weeks, how often have you been bothered by any of the following problems? Question Answer Date of Assessment Author Little interest or pleasure in doing things Not at all 12/05/2024 8:55 AM EDT Jen Bartholomew LP N Feeling down, depressed, or hopeless Not at all 12/05/2024 8:55 AM EDT Jen Bartholomew LP N Patient Health Questionnaire -2 Score 0 12/05/2024 8:55 AM EDT Jen Bartholomew LP N documented as of this encounter Progress Notes * Mason Membreno MD - 12/05/2024 9:00 AM EDT Images from the original note were not included. HPI Med Refill Additional comments: Albuterol mdi-- DM [place] Last edited by Jen Bartholomew LPN on 12/05/2024 9:03 AM. Subjective Patient ID: Cole Issa is a 74 y.o. male who presents for CKD/AKF and Med Refill (Albuterolmdi-- DM [place]). Pt here for follow up Saw nephrology since last visit Spironolactone stopped Taking all meds as directed Has follow up with nephrology in 4 months Med Refill Current Outpatient Medications on File Prior to [...] mouth in the morning. 90 tablet 3 ergocalciferol (Vitamin D-2) 1.25 MG (70297 UT) capsule Take 1 capsule by mouth [...] Units under the skin in the morning. Jardiance 10 MG Take 10 mg by mouth Daily metoprolol tartrate (Lopressor) 25 MG tablet Take 12.5 mg by mouth in the morning and 12.5 mg before bedtime. nitroglycerin (Nitrostat) 0.[address] [...] the skin 1 (one) time per week. [DISCONTINUED] albuterol HFA 90 mcg/act inhaler Inhale 2 puffs every 4 (four) hours if needed for wheezing [DISCONTINUED] oxyCODONE-acetaminophen (Percocet) 5-325 MG tablet Take 1 tablet by mouth every 8 (eight) hours if needed [DISCONTINUED] tamsulosin (Flomax) 0.4 MG 24 hr capsule Take 0.4 mg by mouth 1 (one) time each day at the same time. [DISCONTINUED] amoxicillin (Amoxil) 500 MG capsule Take 500 mg by mouth in the morning and 500 mg in the evening and 500 mg before bedtime. [DISCONTINUED] lisinopril 10 MG tablet Take 10 mg by mouth Daily (Patient not taking: Reported on 11/01/2024) No current facility-administered medications on file prior [...] 2011 AND PROSTATITIS OBSTRUCTION Bradycardia 11/20/2021 Depression Deviated nasal septum Diabetes mellitus ([facility]) Edema GERD (gastroesophageal reflux disease) Hx of echocardiogram 03/09/2016 ECHO EF 60-65% Hypertension Hypotension due to medication LVH (left ventricular hypertrophy) 2015 Mild dilation of ascending aorta Nasal obstruction Non-STEMI (non-ST elevated myocardial infarction) ([facility]) 02/2017 ABEL on CPAP 2009 Pain management Renal artery stenosis 03/2016 right Testicular pain 02/15/2022 Past Surgical History: Procedure Laterality Date ARTERIAL BYPASS SURGERY COLONOSCOPY 02/18/2023 EGD 2008 EGD 02/18/2023 OTHER SURGICAL HISTORY 2010 Procedure:cortisone injection;Disease:Arthritis PROSTATE BIOPSY 07/03/2019 SHOULDER SURGERY Right TOTAL KNEE ARTHROPLASTY Right 10/08/2019 Visit Vitals BP 132/78 Pulse 60 Ht 5' 8 Wt 200 lb SpO2 97% BMI 30.41 kg/m?? Smoking Status Never BSA 2.09 m?? Review of Systems Objective Physical Exam Constitutional: [...] Diagnoses and all orders for this visit: Mild intermittent asthma without complication (HCC) - albuterol HFA 90 mcg/act inhaler; Inhale 2 puffs every 4 (four) hours if needed for wheezing Pain of left hand - XR hand 1 or 2 views left; Future Hypertrophic cardiomyopathy (HCC) - lisinopril 10 MG tablet; Take 2 tablets (20 mg) by mouth Daily Follow up in about 4 months (around 04/07/2025) for Routine F/U. documented in this encounter Plan of Treatment Upcoming Encounters Date Type Department Care Team (Late st Contact Info) Description 01/17/2025 8:30 AM EDT Office Visit [facility] [address] [facility] [address] [place] [phone] Kyrie Montes De Oca, DPM [address] [facility] [address] [place] [address] 02/07/2025 8:30 AM EDT Office Visit [facility] [address] [facility] [address] [place] [address] Mason Membreno MD [address] [facility] [address] [place] [address] 02/12/2025 9:30 AM EDT Office Visit [facility] [address] [facility] [address] [place] [phone] Syed White MD [address] [facility] [address] [place], [place] [id number] Scheduled Orders Name Type Priority Associated Diagnoses Orde r Schedule XR hand 1 or 2 views left Imaging Routine Pain of left hand Expected: 12/05/2024, Expires: 12/05/2025 documented as of this encounter Visit Diagnoses Diagnosis Mild intermittent asthma without complication (HCC)- Primary Pain of left hand Hypertrophic cardiomyopathy (HCC) Other primary cardiomyopathies documented in this encounter Care Teams Photolithographer Relationship Specialty Start Date End Date Mason Membreno MD [address] [facility] [address] [place] [address] PCP - ACO Reach 09/30/22 Mason Membreno MD [address] [facility] [address] [place] [address] PCP - General Internal Medicine 10/06/22 documented as of this encounter
--- OUTSIDE RECORDS SUMMARY | 2024-12-11 06:48 | XMS_ITS | Continuity of Care Document ---
Author Name [facility] Organization [facility] Care Team Providers Care Center Receptionist Name Role Phone [facility] Unavailable Unavailable Problems Combined list of problems from Department of Defense and [facility] facilities. It does not include entries that were removed or entered in error. Problem Status Onset Date Problem Type Date of Resolution Comments Source AF- Atrial Fibrillation (SCT [id number]) Active Condition [facility] CAD - Coronary Artery Disease ([facility] [id number]) Active Condition [facility] Chronic kidney disease stage [address] [facility] Diabetes mellitus Active Condition [facility] Elevated PSA Active Condition [facility] Exposure to Potentially Hazardous Substance ([facility] [id number]) Active Condition [facility] Gastroesophageal reflux disease Active Condition [facility] H/O: osteoarthritis Active Condition TO [facility] Hyperlipidemia Active Condition [facility] Hyperopia Active Condition [facility] Hypertension Active Condition [facility] Long-term current use of anticoagulant Active Condition [facility] Nuclear sclerotic cataract Active Condition [facility] Obstructive sleep apnea syndrome Active Condition [facility] Presbyopia Active Condition [facility] Renal Impairment ([facility] [id number]) Active Condition [facility] Tinnitus Active Condition [facility] Tremor Active Condition [facility] Vitamin D deficiency Active Condition [facility] Diagnosis: ICD-10-CM N18.30 Chronic kidney disease, stage 3 unspecified Active Diagnosis [facility] Diagnosis: ICD-10-CM I48.91 Unspecified atrial fibrillation Active Diagnosis [facility] Diagnosis: ICD-10-CM N17.0 Acute kidney failure with tubular necrosis Active Diagnosis [facility] Diagnosis: ICD-10-CM R42 Dizziness and giddiness Active Diagnosis [facility] Diagnosis: ICD-10-CM Z00.8 Encounter for other general examination Active Diagnosis [facility] Diagnosis: ICD-10-CM N18.32 Chronic kidney disease, stage 3b Active Diagnosis [facility] Diagnosis: ICD-10-CM R14.3 Flatulence Active Diagnosis [facility] Diagnosis: ICD-10-CM H25.813 Combined forms of age-related cataract, bilateral Active Diagnosis [facility] Diagnosis: ICD-10-CM Z01.818 Encounter for other preprocedural examination Active Diagnosis [facility] Diagnosis: ICD-10-CM H25.811 Combined forms of age-related cataract, right eye Active Diagnosis [facility] Diagnosis: ICD-10-CM E11.9 Type 2 diabetes mellitus without complications Active Diagnosis [facility] Diagnosis: ICD-10-CM N18.4 Chronic kidney disease, stage 4 (severe) Active Diagnosis [facility] Diagnosis: ICD-10-CM G47.33 Obstructive sleep apnea (adult) (pediatric) Active Diagnosis [facility] Diagnosis: ICD-10-CM Z71.9 Counseling, unspecified Active Diagnosis [facility] Diagnosis: ICD-10-CM E11.8 Type 2 diabetes mellitus with unspecified complications Active Diagnosis [facility] Diagnosis: ICD-10-CM Z46.1 Encounter for fitting and adjustment of hearing aid Active Diagnosis [facility] Medications Combined list of outpatient medications from [...] ORAL DISCONT INUED BY PROVIDE R 09/16/2024 [id number] SUHAIL NEGRON MD [address] [facility] APIXABAN 5MG TAB TAKE ONE TABLET BY MOUTH TWICE A DAY FOR STROKE PREVENTI ON TO TREAT OR PREVENT CLOT ORAL SUSPEND ED 03/06/2025 [id number] 5 SUHAIL NEGRON MD [address] [facility] APIXABAN 5MG TAB TAKE ONE TABLET BY MOUTH TWICE A DAY TO TREAT OR PREVENT CLOT ORAL DISCONT INUED 02/16/2024 [id number] 4 SUHAIL NEGRON MD [address] [facility] APIXABAN 5MG TAB TAKE ONE TABLET BY MOUTH TWICE A DAY TO TREAT OR PREVENT CLOT ORAL DISCONT INUED (EDIT) 03/06/2025 [id number] 4 SUHAIL NEGRON MD [address] [facility] ATORVASTATI N CA 40MG TAB TAKE ONE TABLET BY MOUTH ONCE DAILY FOR CHOLESTE ROL ORAL ACTIVE 11/29/2025 [id number] 5 SUHAIL NEGRON MD [address] [facility] ATORVASTATI N CA 40MG TAB TAKE ONE TABLET BY MOUTH ONCE DAILY FOR CHOLESTE ROL ORAL DISCONT INUED 08/16/2024 [id number] 5 SUHAIL NEGRON MD [address] [facility] CHOLECALCIF PEGGY 25MCG (1,000UNIT) TAB TAKE TWO TABLETS BY MOUTH ORAL ACTIVE SUHAIL NEGRON MD 2017 [facility] CITALOPRAM HYDROBROMID E 20MG TAB TAKE ONE TABLET BY MOUTH ONCE DAILY FOR MOOD ORAL ACTIVE 09/24/2025 [id number] 5 SUHAIL NEGRON MD [address] [facility] CITALOPRAM HYDROBROMID E 20MG TAB TAKE ONE TABLET BY MOUTH ONCE DAILY FOR MOOD ORAL DISCONT INUED 03/06/2025 [id number] 5 SUHAIL NEGRON MD [address] [facility] CITALOPRAM HYDROBROMID E 20MG TAB TAKE ONE TABLET BY MOUTH ONCE DAILY FOR MOOD ORAL DISCONT INUED (EDIT) 08/16/2024 [id number] 4 SUHIAL NEGRON MD [address] [facility] EMPAGLIFLOZ IN 25MG TAB TAKE ONE-HALF TABLET BY MOUTH ONCE DAILY FOR DIABETES ORAL ACTIVE 03/06/2025 [id number] 5 SUHAIL NEGRON MD [address] [facility] EMPAGLIFLOZ IN 25MG TAB TAKE ONE-HALF TABLET BY MOUTH ONCE DAILY FOR DIABETES ORAL DISCONT INUED (EDIT) 08/16/2024 [id number] 4 SUHAIL NEGRON MD [address] [facility] FINASTERIDE 5MG TAB TAKE ONE TABLET BY MOUTH ONCE DAILY FOR PROSTATE (NOTE: WOMEN WHO ARE, OR MAY BECOME, , SHOULD NOT HANDLE CRUSHED OR BROKEN TABLETS) ORAL ACTIVE 12/11/2025 [id number] 5 SUHAIL NEGRON MD [address] [facility] FINASTERIDE 5MG TAB TAKE ONE TABLET BY MOUTH ONCE DAILY FOR PROSTATE (NOTE: WOMEN WHO ARE, OR MAY BECOME, , SHOULD NOT HANDLE CRUSHED OR BROKEN TABLETS) ORAL DISCONT INUED 08/16/2024 [id number] 5 SUHAIL NEGRON MD [address] [facility] GABAPENTIN 300MG CAP TAKE ONE CAPSULE BY MOUTH TWICE A DAY FOR NERVE PAIN IN THE EVENING AND AT BEDTIME ORAL DISCONT INUED (EDIT) 07/22/2024 [id number] 4 SUHAIL NEGRON MD 2023 60 [facility] GABAPENTIN 400MG CAP TAKE ONE CAPSULE BY MOUTH TWICE A DAY FOR NERVE PAIN IN THE EVENING AND AT BEDTIME ORAL ACTIVE 02/07/2025 [id number] 5 SUHAIL NEGRON MD [address] [facility] INSULIN,GLA RGINE,HUMAN 100 UNIT/ML INJ,SOLOSTA R,3ML INJECT 15UNITS UNDER THE SKIN ONCE DAILY FOR DIABETES DISCARD PENS 28 DAYS AFTER FIRST USE SUBCUT ANEOUS ACTIVE 06/15/2025 [id number] 5 SUHAIL NEGRON MD 2024 5 [facility] INSULIN,GLA RGINE,HUMAN 100 UNIT/ML INJ,SOLOSTA R,3ML INJECT 20 UNITS UNDER THE SKIN ONCE DAILY FOR DIABETES DISCARD PENS 28 DAYS AFTER FIRST USE SUBCUT ANEOUS DISCONT INUED (EDIT) 06/14/2025 [id number] 5 SUHAIL NEGRON MD [address] [facility] INSULIN,GLA RGINE,HUMAN 100 UNIT/ML INJ,SOLOSTA R,3ML INJECT 20 UNITS UNDER THE SKIN ONCE DAILY FOR DIABETES DISCARD PENS 28 DAYS AFTER FIRST USE ONE TIME FILL FOR BACKORDE R SUBCUT ANEOUS DISCONT INUED 05/20/2024 [id number] 4 SUHAIL NEGRON MD [address] [facility] INSULIN,GLA RGINE-YFGN 100UNIT/ML INJ PEN,3ML INJECT 20 UNITS UNDER THE SKIN ONCE DAILY FOR DIABETES DISCARD PENS 28 DAYS AFTER FIRST USE SUBCUT ANEOUS DISCONT INUED 03/06/2025 [id number] 4 SUHAIL NEGRON MD [address] [facility] INSULIN,GLA RGINE-YFGN 100UNIT/ML INJ PEN,3ML INJECT 20 UNITS UNDER THE SKIN ONCE DAILY FOR DIABETES DISCARD PENS 28 DAYS AFTER FIRST USE SUBCUT ANEOUS DISCONT INUED 02/16/2024 [id number] 4 SUHAIL NEGRON MD [address] [facility] LISINOPRIL 10MG TAB TAKE ONE TABLET BY MOUTH ONCE DAILY TO PROTECT KIDNEYS ORAL DISCONT INUED (EDIT) 02/16/2025 [id number] 4 Leonardo JEAN 2023 30 [facility] LISINOPRIL 20MG TAB TAKE ONE TABLET BY MOUTH ONCE DAILY ORAL ACTIVE 11/16/2025 [id number] 5 Leonardo JEAN 2024 90 [facility] LISINOPRIL 20MG TAB TAKE ONE TABLET BY MOUTH ONCE DAILY TO PROTECT KIDNEYS ORAL DISCONT INUED (EDIT) 03/07/2025 [id number] 4 Leonardo JEAN 2023 90 [facility] LISINOPRIL 40MG TAB TAKE ONE TABLET BY MOUTH ONCE DAILY TO PROTECT KIDNEYS ORAL DISCONT INUED (EDIT) 03/31/2025 [id number] 5 Leonardo JEAN 2023 90 [facility] METOPROLOL SUCCINATE 50MG TAB,SA TAKE ONE TABLET BY MOUTH TWICE A DAY FOR HEART ORAL ACTIVE 03/31/2025 [id number] 4 Leonardo JEAN 2023 180 [facility] METOPROLOL SUCCINATE 50MG TAB,SA TAKE ONE TABLET BY MOUTH TWICE A DAY FOR HEART ORAL DISCONT INUED 02/16/2025 [id number] 4 Leonardo JEAN 2023 60 [facility] METOPROLOL TARTRATE 50MG TAB TAKE ONE TABLET BY MOUTH TWICE A DAY FOR HEART RATE REPLACES CARVEDIL OL ORAL DISCONT INUED BY PROVIDE R 11/01/2024 [id number] 4 Leonardo JEAN 2023 60 [facility] NITROGLYCER IN 0.4MG TAB,SUBLING UAL DISSOLVE ONE TABLET UNDER THE TONGUE NEEDED FOR CHEST PAIN. IF NO IMPROVEM ENT AFTER FIRST DOSE CALL 911. MAY TAKE ADDITION AL DOSES 5 MINUTES APART. SUBLIN GUAL ACTIVE 03/06/2025 [id number] 4 SUHAIL NEGRON MD [address] [facility] PANTOPRAZOL E NA 40MG TAB,EC TAKE ONE TABLET BY MOUTH TWICE A DAY FOR HEARTBUR N IN THE MORNING AND AT NOON 30 MINUTES BEFORE A MEAL ORAL ACTIVE 03/06/2025 [id number] 5 SUHAIL NEGRON MD [address] [facility] PANTOPRAZOL E NA 40MG TAB,EC TAKE ONE TABLET BY MOUTH TWICE A DAY FOR HEARTBUR N IN THE MORNING AND AT NOON 30 MINUTES BEFORE A MEAL ORAL DISCONT INUED 03/10/2024 [id number] 4 SUHAIL NEGRON MD [address] [facility] PREDNISOLON E ACETATE 1% SUSP,OPH INSTILL 1 DROP IN RIGHT EYE FOUR TIMES A DAY FOR INFLAMMA TION OF THE EYE ([place] BEFORE EACH USE) OPHTHA LMIC ACTIVE 06/09/2025 [id number] 5 Pili MANCUSO 2024 10 [facility] RANOLAZINE 500MG TAB,SA TAKE ONE TABLET BY MOUTH TWICE A DAY FOR HEART RHYTHM FOR CHEST PAIN ORAL ACTIVE 03/06/2025 [id number] 5 SUHAIL NEGRON MD [address] [facility] RANOLAZINE 500MG TAB,SA TAKE ONE TABLET BY MOUTH TWICE A DAY FOR CHEST PAIN ORAL DISCONT INUED (EDIT) 06/29/2024 [id number] 4 SUHAIL NEGRON MD 2023 60 [facility] SEMAGLUTIDE 0.25MG/0.37 5ML INJ,SOLN,PE N,3ML INJECT 0.5MG UNDER THE SKIN ONCE EVERY WEEK FOR DIABETES REPLAC ES LIRAGLUT EMILY SUBCUT ANEOUS ACTIVE 10/30/2025 [id number] 5 SUHAIL NEGRON MD 2024 1 [facility] SEMAGLUTIDE 0.25MG/0.37 5ML INJ,SOLN,PE N,3ML INJECT 0.5MG UNDER THE SKIN ONCE EVERY WEEK FOR DIABETES REPLAC ES LIRAGLUT EMILY SUBCUT ANEOUS DISCONT INUED 05/10/2025 [id number] 5 SUHAIL NEGRON MD 2024 1 [facility] SEMAGLUTIDE 0.25MG/0.37 5ML INJ,SOLN,PE N,3ML INJECT 0.5MG UNDER THE SKIN ONCE EVERY WEEK FOR DIABETES REPLAC ES LIRAGLUT EMILY SUBCUT ANEOUS DISCONT INUED 11/29/2024 [id number] 4 SUHAIL NEGRON MD [address] [facility] SPIRONOLACT ONE 25MG TAB TAKE ONE TABLET BY MOUTH EVERY DAY FOR BLOOD PRESSURE ORAL ACTIVE 04/28/2025 [id number] 5 Leonardo JEAN 2023 30 [facility] SPIRONOLACT ONE 25MG TAB TAKE ONE-HALF TABLET BY MOUTH EVERY DAY FOR BLOOD PRESSURE ORAL DISCONT INUED (EDIT) 03/31/2025 [id number] 4 Leonardo JEAN 2023 15 [facility] SPIRONOLACT ONE 25MG TAB TAKE ONE-HALF TABLET BY MOUTH EVERY DAY FOR BLOOD PRESSURE ORAL DISCONT INUED BY PROVIDE R 09/07/2024 [id number] 4 Leonardo JEAN 2023 45 [facility] TAMSULOSIN HCL 0.4MG CAP TAKE ONE CAPSULE BY MOUTH EVERY EVENING FOR URINATIO N FOR PROSTATE (TAKE 30 MINUTES AFTER THE SAME MEAL EACH DAY) ORAL 08/11/2024 [id number] 5 SUHAIL NEGRON MD [address] [facility] Allergies, Adverse Reactions, Alerts Combined list of allergies from Department of Defense and 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 It does not include entries that were removed or entered in error. Substance Category Reaction Severity Reaction type Status Date Reported Comments Source ISOSORBIDE Propensity to adverse reactions to drug (finding) Bradycardia active 2 [facility] Immunizations Combined list of available immunizations from the Department of [facility] and Veterans 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 Immunization Series Date Given Administered By Site Reaction Lot Number CVX Code Drug Emt Status Comments Source RSV, BIVALENT, PROTEIN SUBUNIT RSVPREF, DILUENT RECONSTITUTED , 0.5 ML, PF 2023 [facility] N LEFT DELTO ID [id number] 305 complet ed [facility] INFLUENZA, HIGH-DOSE, QUADRIVALENT, PF 2023 197 complet ed HISTORICA L INFORMATI ON - FROM OTHER REGISTRY, [facility] COVID-19 (PFIZER), MRNA, LNP-S, PF, EUGENIA-SUCROSE, 30 MCG/0.3 ML (AGES 12+ YEARS) 2023 309 complet ed HISTORICA L INFORMATI ON - FROM OTHER REGISTRY, [facility] INFLUENZA, HIGH-DOSE, QUADRIVALENT 2022 EDUARD ROMERO LEFT DELTO ID [id number] 197 complet ed [facility] INFLUENZA VACCINE, QUADRIVALENT, ADJUVANTED 2021 SAQIB SU[facility] LEFT DELTO ID [id number] 205 complet ed [facility] COVID-19 (MODERNA), MRNA, LNP-S, BIVALENT BOOSTER, PF, 50 MCG/0.5 ML OR 25MCG/0.25 ML DOSE 2021 229 complet ed Booster for Series, HISTORICA L INFORMATI ON - SOURCE UNSPECIFI ED, [facility] INFLUENZA, HIGH DOSE SEASONAL 7 2021 135 complet ed HISTORICA L INFORMATI ON - FROM OTHER REGISTRY, [facility] COVID-19 (MODERNA), MRNA, LNP-S, PF, 100 MCG/0.5ML DOSE OR 50 MCG/0.25ML DOSE 3 2021 207 complet ed HISTORICA L INFORMATI ON - FROM OTHER REGISTRY, [facility] COVID-19 (MODERNA), MRNA, LNP-S, PF, 100 MCG/0.5 ML DOSE 3 2020 207 complet ed MOD; [id number]; 2 [facility] INFLUENZA VACCINE, QUADRIVALENT, ADJUVANTED [address] [facility] INFLUENZA, HIGH DOSE SEASONAL 6 2020 135 complet ed HISTORICA L INFORMATI ON - FROM OTHER REGISTRY, [facility] COVID-19 (MODERNA), MRNA, LNP-S, PF, 100 MCG/0.5 ML DOSE 2 2020 207 complet ed MOD; [id number]; 1 [facility] MRNA, LNP-S, PF, 100 MCG/0.5ML DOSE OR 50 MCG/0.25ML DOSE 2 2020 207 complet ed HISTORICA L INFORMATI ON - FROM OTHER REGISTRY, [facility] COVID-19 (MODERNA), MRNA, LNP-S, PF, 100 MCG/0.5 ML DOSE 1 2020 207 complet ed MOD; [id number]; 1 [facility] INFLUENZA, SEASONAL, INJECTABLE 2019 141 complet ed HISTORICA L INFORMATI ON - FROM OTHER REGISTRY, [facility] INFLUENZA, HIGH DOSE SEASONAL 5 2019 135 complet ed HISTORICA L INFORMATI ON - FROM OTHER REGISTRY, [facility] INFLUENZA, HIGH-DOSE, QUADRIVALENT [address] [facility] PNEUMOCOCCAL POLYSACCHARID E [id number] 2019 33 complet ed merck [id number] [facility] INFLUENZA, INJECTABLE, QUADRIVALENT, PRESERVATIVE FREE 2019 150 complet ed Afluria/P [id number] /11-06-[address] [facility] INFLUENZA, HIGH DOSE SEASONAL 4 2018 135 complet ed HISTORICA L INFORMATI ON - FROM OTHER REGISTRY, [facility] ZOSTER RECOMBINANT [address] [facility] ZOSTER RECOMBINANT 1 [address] [facility] ZOSTER RECOMBINANT 1 2017 187 complet ed HISTORICA L INFORMATI ON - FROM OTHER REGISTRY, [facility] INFLUENZA, HIGH DOSE SEASONAL 3 2017 135 complet ed HISTORICA L INFORMATI ON - FROM OTHER REGISTRY, [facility] PNEUMOCOCCAL CONJUGATE PCV [address] [facility] TDAP [address] [facility] INFLUENZA, SEASONAL, INTRADERMAL, PRESERVATIVE FREE 2 2016 144 complet ed HISTORICA L INFORMATI ON - FROM OTHER REGISTRY, [facility] INFLUENZA (HISTORICAL) 2016 88 complet ed [facility] INFLUENZA, UNSPECIFIED FORMULATION 2016 88 complet ed Afluria/S eqirus/[place] [id number] [facility] INFLUENZA, INJECTABLE, QUADRIVALENT, PRESERVATIVE FREE 1 2014 150 complet ed HISTORICA L INFORMATI ON - FROM OTHER REGISTRY, [facility] INFLUENZA (HISTORICAL) 2014 88 complet ed [facility] PNEUMOCOCCAL, UNSPECIFIED FORMULATION 2014 109 complet ed locally [facility] Results Combined list of recent chemistry, hematology and other laboratory results from Department of Defense and Veterans Affairs, ranging from 15 months to all on record, depending upon the facility. Order Name Results Value Reference Range Date Interpretation Specimen Comments Source CBC WITH DIFFERENT IAL LEUKOCYTES [#/VOLUME] IN BLOOD BY AUTOMATED COUNT 6.87 10*3/uL 4.00 - 11.00 12/06 Specimen Type: BLOOD No comment entered. Ordering Provider: VICK JEAN Report Released Date/Time: Nov 15, 2024 09:51 AM Reporting Lab: [facility] [address] [facility] [address] Performing Lab: [facility] [address] [place] [address] [facility] CBC WITH DIFFERENT IAL ERYTHROCYT ES [#/VOLUME] IN BLOOD 4.36 10*6/uL 4.10 - 5.80 12/06 Specimen Type: BLOOD No comment entered. Ordering Provider: VICK JEAN Report Released Date/Time: Nov 15, 2024 09:51 AM Reporting Lab: [facility] [address] [facility] [address] Performing Lab: [facility] [address] [place] [address] [facility] CBC WITH DIFFERENT IAL HEMOGLOBIN [MASS/VOLU ME] IN BLOOD 13.0 g/dL 12.1 - 17.2 12/06 Specimen Type: BLOOD No comment entered. Ordering Provider: VICK JEAN Report Released Date/Time: Nov 15, 2024 09:51 AM Reporting Lab: [facility] [address] [facility] [address] Performing Lab: [facility] [address] [facility] [facility] [address] [facility] CBC WITH DIFFERENT IAL HEMATOCRIT [VOLUME FRACTION] OF BLOOD BY AUTOMATED COUNT 39.5 38.0 - 51.0 12/06 Specimen Type: BLOOD No comment entered. Ordering Provider: VICK JEAN Report Released Date/Time: Nov 15, 2024 09:51 AM Reporting Lab: [facility] [address] [facility] [address] Performing Lab: [facility] [address] [place] [address] [facility] CBC WITH DIFFERENT IAL MCV [ENTITIC VOLUME] BY AUTOMATED COUNT 90.6 fL 80.0 - 100.0 12/06 Specimen Type: BLOOD No comment entered. Ordering Provider: VICK JEAN Report Released Date/Time: Nov 15, 2024 09:51 AM Reporting Lab: [facility] [address] [facility] [address] Performing Lab: [facility] [address] [place] [address] [facility] CBC WITH DIFFERENT IAL MCH [ENTITIC MASS] BY AUTOMATED COUNT 29.8 pg 26.0 - 32.0 12/06 Specimen Type: BLOOD No comment entered. Ordering Provider: VICK JEAN Report Released Date/Time: Nov 15, 2024 09:51 AM Reporting Lab: [facility] [address] [facility] [address] Performing Lab: [facility] [address] [place] [address] [facility] CBC WITH DIFFERENT IAL MCHC [MASS/VOLU ME] BY AUTOMATED COUNT 32.9 g/dL 32.0 - 37.5 12/06 Specimen Type: BLOOD No comment entered. Ordering Provider: VICK JEAN Report Released Date/Time: Nov 15, 2024 09:51 AM Reporting Lab: [facility] [address] [facility] [address] Performing Lab: [facility] [address] [facility] [address] [facility] CBC WITH DIFFERENT IAL PLATELETS [#/VOLUME] IN BLOOD BY AUTOMATED COUNT 165 10*3/uL 130 - 400 12/06 Specimen Type: BLOOD No comment entered. Ordering Provider: VICK JEAN Report Released Date/Time: Nov 15, 2024 09:51 AM Reporting Lab: [facility] [address] [facility] [address] Performing Lab: [facility] [address] [facility] [address] [facility] CBC WITH DIFFERENT IAL PLATELET MEAN VOLUME [ENTITIC VOLUME] IN BLOOD BY AUTOMATED COUNT 10.3 fL 8.9 - 12.7 12/06 Specimen Type: BLOOD No comment entered. Ordering Provider: VICK JEAN Report Released Date/Time: Nov 15, 2024 09:51 AM Reporting Lab: [facility] [address] [facility] [address] Performing Lab: [facility] [address] [place] [address] [facility] CBC WITH DIFFERENT IAL LYMPHOCYTE S [#/VOLUME] IN BLOOD BY AUTOMATED COUNT 1.35 10*3/uL 1.00 - 3.00 12/06 Specimen Type: BLOOD No comment entered. Ordering Provider: VICK JEAN Report Released Date/Time: Nov 15, 2024 09:51 AM Reporting Lab: [facility] [address] [place] [address] Performing Lab: [facility] [address] [place] [address] [facility] CBC WITH DIFFERENT IAL MONOCYTES/ 100 LEUKOCYTES IN BLOOD BY AUTOMATED COUNT 8.4 12/06 Specimen Type: BLOOD No comment entered. Ordering Provider: VICK JEAN Report Released Date/Time: Nov 15, 2024 09:51 AM Reporting Lab: [facility] [address] [place] [address] Performing Lab: [facility] [address] [place] [address] [facility] CBC WITH DIFFERENT IAL MONOCYTES [#/VOLUME] IN BLOOD BY AUTOMATED COUNT 0.58 10*3/uL 0.30 - 0.90 12/06 Specimen Type: BLOOD No comment entered. Ordering Provider: VICK JEAN Report Released Date/Time: Nov 15, 2024 09:51 AM Reporting Lab: [facility] [address] [place] [address] Performing Lab: [facility] [address] [place] [address] [facility] CBC WITH DIFFERENT IAL LYMPHOCYTE S/100 LEUKOCYTES IN BLOOD BY AUTOMATED COUNT 19.7 12/06 Specimen Type: BLOOD No comment entered. Ordering Provider: VICK JEAN Report Released Date/Time: Nov 15, 2024 09:51 AM Reporting Lab: [facility] [address] [place] [address] Performing Lab: [facility] [address] [place] [address] [facility] CBC WITH DIFFERENT IAL BASOPHILS [#/VOLUME] IN BLOOD BY AUTOMATED COUNT 0.04 10*3/uL 0.00 - 0.20 12/06 Specimen Type: BLOOD No comment entered. Ordering Provider: VICK JEAN Report Released Date/Time: Nov 15, 2024 09:51 AM Reporting Lab: [facility] [address] [place] [address] Performing Lab: [facility] [address] [place] [address] [facility] CBC WITH DIFFERENT IAL EOSINOPHIL S [#/VOLUME] IN BLOOD BY AUTOMATED COUNT 0.24 10*3/uL 0.00 - 0.50 12/06 Specimen Type: BLOOD No comment entered. Ordering Provider: VICK JEAN Report Released Date/Time: Nov 15, 2024 09:51 AM Reporting Lab: [facility] [address] [facility] [address] Performing Lab: [facility] [address] [facility] [address] [facility] CBC WITH DIFFERENT IAL NEUTROPHIL S/100 LEUKOCYTES IN BLOOD BY AUTOMATED COUNT 66.5 12/06 Specimen Type: BLOOD No comment entered. Ordering Provider: VICK JEAN Report Released Date/Time: Nov 15, 2024 09:51 AM Reporting Lab: [facility] [address] [facility] [address] Performing Lab: [facility] [address] [facility] [address] [facility] CBC WITH DIFFERENT IAL EOSINOPHIL S/100 LEUKOCYTES IN BLOOD BY AUTOMATED COUNT 3.5 12/06 Specimen Type: BLOOD No comment entered. Ordering Provider: VICK JEAN Report Released Date/Time: Nov 15, 2024 09:51 AM Reporting Lab: [facility] [address] [facility] [address] Performing Lab: [facility] [address] [facility] [facility] [address] [facility] CBC WITH DIFFERENT IAL BASOPHILS/ 100 LEUKOCYTES IN BLOOD BY AUTOMATED COUNT 0.6 12/06 Specimen Type: BLOOD No comment entered. Ordering Provider: VICK JEAN Report Released Date/Time: Nov 15, 2024 09:51 AM Reporting Lab: [facility] [address] [facility] [address] [facility] [address] Performing Lab: [facility] [address] [facility] [address] [facility] [address] [facility] CBC WITH DIFFERENT IAL NEUTROPHIL S [#/VOLUME] IN BLOOD BY AUTOMATED COUNT 4.57 10*3/uL 2.00 - 7.00 12/06 Specimen Type: BLOOD No comment entered. Ordering Provider: VICK JEAN Report Released Date/Time: Nov 15, 2024 09:51 AM Reporting Lab: [facility] [address] [facility] [address] Performing Lab: [facility] [address] [facility] [address] [facility] CBC WITH DIFFERENT IAL ERYTHROCYT E DISTRIBUTI ON WIDTH [RATIO] 12.3 11.5 - 14.5 12/06 Specimen Type: BLOOD No comment entered. Ordering Provider: VICK JEAN Report Released Date/Time: Nov 15, 2024 09:51 AM Reporting Lab: [facility] [address] [facility] [address] Performing Lab: [facility] [address] [facility] [address] [facility] [address] [facility] CBC WITH DIFFERENT IAL IMMATURE GRANULOCYT ES/100 LEUKOCYTES IN BLOOD 1.3 0.0 - 0.5 12/06 H Specimen Type: BLOOD No comment entered. Ordering Provider: VICK JEAN Report Released Date/Time: Nov 15, 2024 09:51 AM Reporting Lab: [facility] [address] [facility] [address] Performing Lab: [facility] [address] [facility] [address] [facility] CBC WITH DIFFERENT IAL NUCLEATED ERYTHROCYT ES/100 LEUKOCYTES [RATIO] IN BLOOD BY AUTOMATED COUNT 0.0 12/06 Specimen Type: BLOOD No comment entered. Ordering Provider: VICK JEAN Report Released Date/Time: Nov 15, 2024 09:51 AM Reporting Lab: [facility] [address] [facility] [address] [address] Performing Lab: [facility] [address] [facility] [address] [facility] CBC WITH DIFFERENT IAL NUCLEATED ERYTHROCYT ES [#/VOLUME] IN BLOOD <0.0110* 3/uL 0.000 - 0.012 12/06 Specimen Type: BLOOD No comment entered. Ordering Provider: VICK JEAN Report Released Date/Time: Nov 15, 2024 09:51 AM Reporting Lab: [facility] [address] [facility] [address] Performing Lab: [facility] [address] [facility] [address] [facility] FERRITIN FERRITIN [MASS/VOLU ME] IN BLOOD 15.5 ng/mL 23.9 - 336.2 12/06 L Specimen Type: BLOOD No comment entered. Ordering Provider: VICK JEAN Report Released Date/Time: Nov 15, 2024 09:51 AM Reporting Lab: [address] [address] Performing Lab: [address] [address] [facility] IRON/TIBC /FERR IRON [MASS/VOLU ME] IN SERUM OR PLASMA 71 ug/dL 50 - 212 12/06 Specimen Type: BLOOD No comment entered. Ordering Provider: VICK JEAN Report Released Date/Time: Nov 15, 2024 09:51 AM Reporting Lab: [address] [address] Performing Lab: [address] [address] [facility] IRON/TIBC /FERR IRON BINDING CAPACITY [MASS/VOLU ME] IN SERUM OR PLASMA 357 ug/dL 240 - 450 12/06 Specimen Type: BLOOD No comment entered. Ordering Provider: VICK JEAN Report Released Date/Time: Nov 15, 2024 09:51 AM Reporting Lab: [address] [address] Performing Lab: [address] [address] [facility] IRON/TIBC /FERR FERRITIN [MASS/VOLU ME] IN BLOOD 15.5 ng/mL 23.9 - 336.2 12/06 L Specimen Type: BLOOD No comment entered. Ordering Provider: VICK JEAN Report Released Date/Time: Nov 15, 2024 09:51 AM Reporting Lab: [address] [address] Performing Lab: [address] [address] [facility] IRON/TIBC /FERR TRANSFERRI N [MASS/VOLU ME] IN SERUM OR PLASMA 255 mg/dL 203 - 362 12/06 Specimen Type: BLOOD No comment entered. Ordering Provider: VICK JEAN Report Released Date/Time: Nov 15, 2024 09:51 AM Reporting Lab: [address] [address] Performing Lab: [address] [address] [facility] MAGNESIUM MAGNESIUM [MASS/VOLU ME] IN SERUM OR PLASMA 2.1 mg/dL 1.9 - 2.7 12/06 Specimen Type: BLOOD No comment entered. Ordering Provider: VICK JEAN Report Released Date/Time: Nov 15, 2024 09:48 AM Reporting Lab: [address] [address] Performing Lab: [address] [address] [facility] RENAL FUNCTION PANEL (AA) CREATININE [MASS/VOLU ME] IN SERUM OR PLASMA 2.4 mg/dL 0.6 - 1.3 12/06 H Specimen Type: BLOOD No comment entered. Ordering Provider: VICK JEAN Report Released Date/Time: Nov 15, 2024 09:48 AM Reporting Lab: [facility] [address] [facility] [address] Performing Lab: [facility] [address] [facility] [address] [facility] RENAL FUNCTION PANEL (AA) UREA NITROGEN [MASS/VOLU ME] IN SERUM OR PLASMA 36 mg/dL 7 - 25 12/06 H Specimen Type: BLOOD No comment entered. Ordering Provider: VICK JEAN Report Released Date/Time: Nov 15, 2024 09:48 AM Reporting Lab: [address] [address] Performing Lab: [address] [facility] [address] [facility] RENAL FUNCTION PANEL (AA) GLUCOSE [MASS/VOLU ME] IN SERUM OR PLASMA 176 mg/dL 74 - 109 12/06 H Specimen Type: BLOOD No comment entered. Ordering Provider: VICK JEAN Report Released Date/Time: Nov 15, 2024 09:48 AM Reporting Lab: [address] [address] Performing Lab: [address] [address] [facility] RENAL FUNCTION PANEL (AA) SODIUM [MOLES/VOL UME] IN SERUM OR PLASMA 137 mmol/L 136 - 145 12/06 Specimen Type: BLOOD No comment entered. Ordering Provider: VICK JEAN Report Released Date/Time: Nov 15, 2024 09:48 AM Reporting Lab: [address] [address] Performing Lab: [address] [address] [facility] RENAL FUNCTION PANEL (AA) POTASSIUM [MOLES/VOL UME] IN SERUM OR PLASMA 5.1 mmol/L 3.5 - 5.1 12/06 Specimen Type: BLOOD No comment entered. Ordering Provider: VICK JEAN Report Released Date/Time: Nov 15, 2024 09:48 AM Reporting Lab: [address] [address] Performing Lab: [address] [address] [facility] RENAL FUNCTION PANEL (AA) CHLORIDE [MOLES/VOL UME] IN SERUM OR PLASMA 105 mmol/L 98 - 107 12/06 Specimen Type: BLOOD No comment entered. Ordering Provider: VICK JEAN Report Released Date/Time: Nov 15, 2024 09:48 AM Reporting Lab: [facility] [address] [facility] [address] Performing Lab: [facility] [address] [facility] [address] [facility] [address] [facility] RENAL FUNCTION PANEL (AA) CARBON DIOXIDE, TOTAL [MOLES/VOL UME] IN SERUM OR PLASMA 27 mmol/L - 12/06 Specimen Type: BLOOD No comment entered. Ordering Provider: VICK JEAN Report Released Date/Time: Nov 15, 2024 09:48 AM Reporting Lab: [place] [address] [facility] [address] Performing Lab: [place] [address] [facility] [address] [facility] RENAL FUNCTION PANEL (AA) CALCIUM [MASS/VOLU ME] IN SERUM OR PLASMA 9.1 mg/dL 8.6 - 10.3 12/06 Specimen Type: BLOOD No comment entered. Ordering Provider: VICK JEAN Report Released Date/Time: Nov 15, 2024 09:48 AM Reporting Lab: [place] [address] [facility] [address] Performing Lab: [place] [address] [facility] [address] [facility] RENAL FUNCTION PANEL (AA) PHOSPHATE [MASS/VOLU ME] IN SERUM OR PLASMA 3.7 mg/dL 2.5 - 5 12/06 Specimen Type: BLOOD No comment entered. Ordering Provider: VICK JEAN Report Released Date/Time: Nov 15, 2024 09:48 AM Reporting Lab: [facility] [address] [facility] [address] Performing Lab: [place] [address] [facility] [address] [facility] RENAL FUNCTION PANEL (AA) ALBUMIN [MASS/VOLU ME] IN SERUM OR PLASMA 3.9 g/dL 3.5 - 5.7 12/06 Specimen Type: BLOOD No comment entered. Ordering Provider: VICK JEAN Report Released Date/Time: Nov 15, 2024 09:48 AM Reporting Lab: [facility] [address] [facility] [address] [facility] [address] Performing Lab: [facility] [address] [facility] [place] [address] [facility] RENAL FUNCTION PANEL (AA) ANION GAP 3 IN SERUM OR PLASMA 5 mmol/L 4 - 12 12/06 Specimen Type: BLOOD No comment entered. Ordering Provider: VICK JEAN Report Released Date/Time: Nov 15, 2024 09:48 AM Reporting Lab: [facility] [address] [facility] [address] [address] [address]: [facility] [address] [facility] [address] [facility] RENAL FUNCTION PANEL (AA) GLOMERULAR FILTRATION RATE/1.73 SQ M.PREDICTE D [VOLUME RATE/AREA] IN SERUM, PLASMA OR BLOOD BY CREATININE AND CYSTATIN C-BASED FORMULA (CKD-EPI 2020) 28 mL/min/{ 1.73_m2} 12/06 Specimen Type: BLOOD No comment entered. Ordering Provider: VICK JEAN Report Released Date/Time: Nov 15, 2024 09:48 AM Reporting Lab: [place] [address] [facility] [address] [facility] [address] [address]: [facility] [address] [facility] [address] [facility] [address] [facility] RENAL FUNCTION PANEL (AA) CREATININE [MASS/VOLU ME] IN SERUM OR PLASMA 2.2 mg/dL 0.6 - 1.3 11/12 H Specimen Type: BLOOD Comment: R-Specimen is slightly lipemic and may cause interferenc e. See Laboratory Handbook Laboratory Interferenc es Table for more information . Ordering Provider: VICK JEAN Report Released Date/Time: Nov 02, 2024 10:33 AM Reporting Lab: [facility] [address] [place] [address] Performing Lab: [facility] [address] [facility] [place] [address] [facility] RENAL FUNCTION PANEL (AA) UREA NITROGEN [MASS/VOLU ME] IN SERUM OR PLASMA 33 mg/dL 7 - 25 11/12 H Specimen Type: BLOOD Comment: R-Specimen is slightly lipemic and may cause interferenc e. See Laboratory Handbook Laboratory Interferenc es Table for more information . Ordering Provider: VICK JEAN Report Released Date/Time: Nov 02, 2024 10:33 AM Reporting Lab: [facility] [address] [facility] [address] Performing Lab: [facility] [address] [place] [address] [facility] RENAL FUNCTION PANEL (AA) GLUCOSE [MASS/VOLU ME] IN SERUM OR PLASMA 227 mg/dL 74 - 109 11/12 H Specimen Type: BLOOD Comment: R-Specimen is slightly lipemic and may cause interferenc e. See Laboratory Handbook Laboratory Interferenc es Table for more information . Ordering Provider: VICK JEAN Report Released Date/Time: Nov 02, 2024 10:33 AM Reporting Lab: [facility] [address] [facility] [address] [address] Performing Lab: [facility] [address] [facility] [place] [address] [facility] RENAL FUNCTION PANEL (AA) SODIUM [MOLES/VOL UME] IN SERUM OR PLASMA 140 mmol/L 136 - 145 11/12 Specimen Type: BLOOD Comment: R-Specimen is slightly lipemic and may cause interferenc e. See Laboratory Handbook Laboratory Interferenc es Table for more information . Ordering Provider: VICK JEAN Report Released Date/Time: Nov 02, 2024 10:33 AM Reporting Lab: [facility] [address] [place] [address] Performing Lab: [facility] [address] [place] [address] [facility] RENAL FUNCTION PANEL (AA) POTASSIUM [MOLES/VOL UME] IN SERUM OR PLASMA 4.2 mmol/L 3.5 - 5.1 11/12 Specimen Type: BLOOD Comment: R-Specimen is slightly lipemic and may cause interferenc e. See Laboratory Handbook Laboratory Interferenc es Table for more information . Ordering Provider: VICK JEAN Report Released Date/Time: Nov 02, 2024 10:33 AM Reporting Lab: [facility] [address] [place] [address] Performing Lab: [facility] [address] [place] [address] [facility] RENAL FUNCTION PANEL (AA) CHLORIDE [MOLES/VOL UME] IN SERUM OR PLASMA 110 mmol/L 98 - 107 11/12 H Specimen Type: BLOOD Comment: R-Specimen is slightly lipemic and may cause interferenc e. See Laboratory Handbook Laboratory Interferenc es Table for more information . Ordering Provider: VICK JEAN Report Released Date/Time: Nov 02, 2024 10:33 AM Reporting Lab: [facility] [address] [place] [address] Performing Lab: [facility] [address] [place] [address] [facility] RENAL FUNCTION PANEL (AA) CARBON DIOXIDE, TOTAL [MOLES/VOL UME] IN SERUM OR PLASMA 23 mmol/L 21 - 31 11/12 Specimen Type: BLOOD Comment: R-Specimen is slightly lipemic and may cause interferenc e. See Laboratory Handbook Laboratory Interferenc es Table for more information . Ordering Provider: VICK JEAN Report Released Date/Time: Nov 02, 2024 10:33 AM Reporting Lab: [facility] [address] [place] [address] Performing Lab: [facility] [address] [place] [address] [facility] RENAL FUNCTION PANEL (AA) CALCIUM [MASS/VOLU ME] IN SERUM OR PLASMA 9.1 mg/dL 8.6 - 10.3 11/12 Specimen Type: BLOOD Comment: R-Specimen is slightly lipemic and may cause interferenc e. See Laboratory Handbook Laboratory Interferenc es Table for more information . Ordering Provider: VICK JEAN Report Released Date/Time: Nov 02, 2024 10:33 AM Reporting Lab: [facility] [address] [place] [address] Performing Lab: [facility] [address] [place] [address] [facility] RENAL FUNCTION PANEL (AA) PHOSPHATE [MASS/VOLU ME] IN SERUM OR PLASMA 4.1 mg/dL 2.5 - 5 11/12 Specimen Type: BLOOD Comment: R-Specimen is slightly lipemic and may cause interferenc e. See Laboratory Handbook Laboratory Interferenc es Table for more information . Ordering Provider: VICK JEAN Report Released Date/Time: Nov 02, 2024 10:33 AM Reporting Lab: [facility] [address] [place] [address] Performing Lab: [facility] [address] [place] [address] [facility] RENAL FUNCTION PANEL (AA) ALBUMIN [MASS/VOLU ME] IN SERUM OR PLASMA 4.0 g/dL 3.5 - 5.7 11/12 Specimen Type: BLOOD Comment: R-Specimen is slightly lipemic and may cause interferenc e. See Laboratory Handbook Laboratory Interferenc es Table for more information . Ordering Provider: VICK JEAN Report Released Date/Time: Nov 02, 2024 10:33 AM Reporting Lab: [facility] [address] [facility] [address] Performing Lab: [facility] [address] [place] [address] [facility] RENAL FUNCTION PANEL (AA) ANION GAP 3 IN SERUM OR PLASMA 7 mmol/L 4 - 12 11/12 Specimen Type: BLOOD Comment: R-Specimen is slightly lipemic and may cause interferenc e. See Laboratory Handbook Laboratory Interferenc es Table for more information . Ordering Provider: VICK JEAN Report Released Date/Time: Nov 02, 2024 10:33 AM Reporting Lab: [facility] [address] [place] [address] Performing Lab: [facility] [address] [facility] [address] [facility] RENAL FUNCTION PANEL (AA) GLOMERULAR [...] Nov 02, 2024 10:33 AM Reporting Lab: [facility] [address] [place] [address] Performing Lab: [facility] [address] [facility] [place] [address] [facility] MAGNESIUM MAGNESIUM [MASS/VOLU ME] IN SERUM OR PLASMA 2.3 mg/dL 1.9 - 2.7 11/01 Specimen Type: BLOOD No comment entered. Ordering Provider: VICK JEAN Report Released Date/Time: Oct 26, 2024 11:50 AM Reporting Lab: [facility] [address] [facility] [address] Performing Lab: [facility] [address] [facility] [address] [address] [facility] RENAL FUNCTION PANEL (AA) CREATININE [MASS/VOLU ME] IN SERUM OR PLASMA 3.1 mg/dL 0.6 - 1.3 11/01 H Specimen Type: BLOOD No comment entered. Ordering Provider: VICK JEAN Report Released Date/Time: Oct 26, 2024 11:50 AM Reporting Lab: [facility] [address] [facility] [address] Performing Lab: [facility] [address] [facility] [place] [address] [facility] RENAL FUNCTION PANEL (AA) UREA NITROGEN [MASS/VOLU ME] IN SERUM OR PLASMA 47 mg/dL 7 - 25 11/01 H Specimen Type: BLOOD No comment entered. Ordering Provider: VICK JEAN Report Released Date/Time: Oct 26, 2024 11:50 AM Reporting Lab: [facility] [address] [place] [address] Performing Lab: [facility] [address] [place] [address] [facility] RENAL FUNCTION PANEL (AA) GLUCOSE [MASS/VOLU ME] IN SERUM OR PLASMA 155 mg/dL 74 - 109 11/01 H Specimen Type: BLOOD No comment entered. Ordering Provider: VICK JEAN Report Released Date/Time: Oct 26, 2024 11:50 AM Reporting Lab: [place] [address] [facility] [address] [facility] [address] Performing Lab: [facility] [address] [facility] [address] [facility] [address] [facility] RENAL FUNCTION PANEL (AA) SODIUM [MOLES/VOL UME] IN SERUM OR PLASMA 137 mmol/L 136 - 145 11/01 Specimen Type: BLOOD No comment entered. Ordering Provider: VICK JEAN Report Released Date/Time: Oct 26, 2024 11:50 AM Reporting Lab: [address] [facility] [address] Performing Lab: [address] [facility] [address] [facility] RENAL FUNCTION PANEL (AA) POTASSIUM [MOLES/VOL UME] IN SERUM OR PLASMA 5.2 mmol/L 3.5 - 5.1 11/01 H Specimen Type: BLOOD No comment entered. Ordering Provider: VICK JEAN Report Released Date/Time: Oct 26, 2024 11:50 AM Reporting Lab: [address] [facility] [address] Performing Lab: [address] [facility] [address] [facility] RENAL FUNCTION PANEL (AA) CHLORIDE [MOLES/VOL UME] IN SERUM OR PLASMA 107 mmol/L 98 - 107 11/01 Specimen Type: BLOOD No comment entered. Ordering Provider: VICK JEAN Report Released Date/Time: Oct 26, 2024 11:50 AM Reporting Lab: [place] [address] [facility] [address] [address] Performing Lab: [place] [address] [facility] [address] [facility] [address] [facility] RENAL FUNCTION PANEL (AA) CARBON DIOXIDE, TOTAL [MOLES/VOL UME] IN SERUM OR PLASMA 23 mmol/L 21 - 31 06/26 /2025 Specimen Type: BLOOD No comment entered. Ordering Provider: VICK JEAN Report Released Date/Time: Oct 26, 2024 11:50 AM Reporting Lab: [facility] [address] [facility] [address] Performing Lab: [facility] [address] [facility] [address] [address] [facility] RENAL FUNCTION PANEL (AA) CALCIUM [MASS/VOLU ME] IN SERUM OR PLASMA 9.0 mg/dL 8.6 - 10.3 11/01 Specimen Type: BLOOD No comment entered. Ordering Provider: VICK JEAN Report Released Date/Time: Oct 26, 2024 11:50 AM Reporting Lab: [address] [facility] [address] Performing Lab: [address] [facility] [address] [facility] RENAL FUNCTION PANEL (AA) PHOSPHATE [MASS/VOLU ME] IN SERUM OR PLASMA 3.9 mg/dL 2.5 - 5 11/01 Specimen Type: BLOOD No comment entered. Ordering Provider: VICK JEAN Report Released Date/Time: Oct 26, 2024 11:50 AM Reporting Lab: [address] [facility] [address] Performing Lab: [address] [facility] [address] [facility] RENAL FUNCTION PANEL (AA) ALBUMIN [MASS/VOLU ME] IN SERUM OR PLASMA 4.3 g/dL 3.5 - 5.7 11/01 Specimen Type: BLOOD No comment entered. Ordering Provider: VICK JEAN Report Released Date/Time: Oct 26, 2024 11:50 AM Reporting Lab: [address] [facility] [address] Performing Lab: [address] [facility] [address] [facility] RENAL FUNCTION PANEL (AA) ANION GAP 3 IN SERUM OR PLASMA 7 mmol/L 4 - 12 11/01 Specimen Type: BLOOD No comment entered. Ordering Provider: VICK JEAN Report Released Date/Time: Oct 26, 2024 11:50 AM Reporting Lab: [place] [address] [address] [facility] [address] Performing Lab: [place] [address] [facility] [address] [facility] [address] [facility] RENAL FUNCTION PANEL (AA) GLOMERULAR FILTRATION RATE/1.73 SQ M.PREDICTE D [VOLUME RATE/AREA] IN SERUM, PLASMA OR BLOOD BY CREATININE AND CYSTATIN C-BASED FORMULA (CKD-EPI 2020) 21 mL/min/{ 1.73_m2} 11/01 Specimen Type: BLOOD No comment entered. Ordering Provider: VICK JEAN Report Released Date/Time: Oct 26, 2024 11:50 AM Reporting Lab: [place] [address] [facility] [address] [address] Performing Lab: [address] [facility] [address] [facility] URINALYSI S COLOR OF URINE YELLOW 11/01 Specimen Type: URINE,RANDO M No comment entered. Ordering Provider: VICK JEAN Report Released Date/Time: Oct 26, 2024 11:50 AM Reporting Lab: [place] [address] [address] [facility] [address] Performing Lab: [place] [address] [address] [facility] [address] [facility] URINALYSI S SPECIFIC GRAVITY OF URINE 1.021 1.003 - 1.035 11/01 Specimen Type: URINE,RANDO M No comment entered. Ordering Provider: VICK JEAN Report Released Date/Time: Oct 26, 2024 11:50 AM Reporting Lab: [place] [address] [address] [facility] [address] Performing Lab: [place] [address] [address] [facility] [address] [facility] URINALYSI S UROBILINOG EN [UNITS/VOL UME] IN URINE BY TEST STRIP 1.0 {Angela 'U}/dL 0.2 - 2.0 11/01 Specimen Type: URINE,RANDO M No comment entered. Ordering Provider: VICK JEAN Report Released Date/Time: Oct 26, 2024 11:50 AM Reporting Lab: [facility] [address] [place] [address] Performing Lab: [facility] [address] [place] [address] [facility] URINALYSI S BILIRUBIN. TOTAL [PRESENCE] IN URINE BY TEST STRIP NEGATIVE 11/01 Specimen Type: URINE,RANDO M No comment entered. Ordering Provider: VICK JEAN Report Released Date/Time: Oct 26, 2024 11:50 AM Reporting Lab: [facility] [address] [place] [address] Performing Lab: [facility] [address] [address] [facility] [address] [facility] URINALYSI S KETONES [PRESENCE] IN URINE NEGATIVE 11/01 Specimen Type: URINE,RANDO M No comment entered. Ordering Provider: VICK JEAN Report Released Date/Time: Oct 26, 2024 11:50 AM Reporting Lab: [facility] [address] [facility] [address] Performing Lab: [facility] [address] [place] [address] [facility] URINALYSI S GLUCOSE [MASS/VOLU ME] IN URINE BY TEST STRIP 3+ 11/01 Specimen Type: URINE,RANDO M No comment entered. Ordering Provider: VICK JEAN Report Released Date/Time: Oct 26, 2024 11:50 AM Reporting Lab: [facility] [address] [facility] [address] Performing Lab: [facility] [address] [place] [address] [facility] URINALYSI S PROTEIN [PRESENCE] IN URINE BY TEST STRIP 1+ 11/01 Specimen Type: URINE,RANDO M No comment entered. Ordering Provider: VICK JEAN Report Released Date/Time: Oct 26, 2024 11:50 AM Reporting Lab: [facility] [address] [place] [address] Performing Lab: [facility] [address] [place] [address] [facility] URINALYSI S PH OF URINE BY TEST STRIP 5.0 5.0 - 9.0 11/01 Specimen Type: URINE,RANDO M No comment entered. Ordering Provider: VICK JEAN Report Released Date/Time: Oct 26, 2024 11:50 AM Reporting Lab: [facility] [address] [place] [address] Performing Lab: [facility] [address] [place] [address] [facility] URINALYSI S HEMOGLOBIN [PRESENCE] IN URINE BY TEST STRIP NEGATIVE 11/01 Specimen Type: URINE,RANDO M No comment entered. Ordering Provider: VICK JEAN Report Released Date/Time: Oct 26, 2024 11:50 AM Reporting Lab: [facility] [address] [place] [address] Performing Lab: [facility] [address] [place] [address] [facility] URINALYSI S NITRITE [PRESENCE] IN URINE BY TEST STRIP NEGATIVE 11/01 Specimen Type: URINE,RANDO M No comment entered. Ordering Provider: VICK JEAN Report Released Date/Time: Oct 26, 2024 11:50 AM Reporting Lab: [facility] [address] [place] [address] Performing Lab: [facility] [address] [place] [address] [facility] URINALYSI S LEUKOCYTE ESTERASE [PRESENCE] IN URINE BY TEST STRIP NEGATIVE 11/01 Specimen Type: URINE,RANDO M No comment entered. Ordering Provider: VICK JEAN Report Released Date/Time: Oct 26, 2024 11:50 AM Reporting Lab: [facility] [address] [place] [address] Performing Lab: [facility] [address] [place] [address] [facility] URINALYSI S CLARITY OF URINE CLEAR 11/01 Specimen Type: URINE,RANDO M No comment entered. Ordering Provider: VICK JEAN Report Released Date/Time: Oct 26, 2024 11:50 AM Reporting Lab: [facility] [address] [place] [address] Performing Lab: [facility] [address] [place] [address] [facility] URINALYSI S ERYTHROCYT ES [#/AREA] IN URINE SEDIMENT BY MICROSCOPY HIGH POWER FIELD 0-2/[HPF ] 0 - 2 11/01 Specimen Type: URINE,RANDO M No comment entered. Ordering Provider: VICK JEAN Report Released Date/Time: Oct 26, 2024 11:50 AM Reporting Lab: [facility] [address] [place] [address] Performing Lab: [facility] [address] [facility] [address] [facility] URINALYSI S LEUKOCYTES [#/AREA] IN URINE SEDIMENT BY MICROSCOPY HIGH POWER FIELD 0-5/[HPF ] 0 - 5 11/01 Specimen Type: URINE,KENNEYO M No comment entered. Ordering Provider: VICK JEAN Report Released Date/Time: Oct 26, 2024 11:50 AM Reporting Lab: [facility] [address] [facility] [address] Performing Lab: [facility] [address] [place] [address] [facility] URINALYSI S BACTERIA [#/AREA] IN URINE SEDIMENT BY AUTOMATED COUNT None Seen/[HP F] 11/01 Specimen Type: URINE,RANDO M No comment entered. Ordering Provider: VICK JEAN Report Released Date/Time: Oct 26, 2024 11:50 AM Reporting Lab: [facility] [address] [place] [address] Performing Lab: [facility] [address] [place] [address] [facility] URINALYSI S TOTAL CASTS 0-2/[LPF ] 0 - 5 11/01 Specimen Type: URINE,RANDO M No comment entered. Ordering Provider: VICK JEAN Report Released Date/Time: Oct 26, 2024 11:50 AM Reporting Lab: [facility] [address] [facility] [address] Performing Lab: [facility] [address] [facility] [address] [facility] [address] [facility] URINALYSI S TOTAL EPITHELIAL CELLS None Seen/[LP F] 11/01 Specimen Type: URINE,RANDO M No comment entered. Ordering Provider: VICK JEAN Report Released Date/Time: Oct 26, 2024 11:50 AM Reporting Lab: [facility] [address] [facility] [address] [facility] [address] Performing Lab: [facility] [address] [facility] [address] [facility] PTH (INTACT) PARATHYRIN .INTACT [MASS/VOLU ME] IN SERUM OR PLASMA 116.7 pg/mL 12.0 - 88.0 10/26 H Specimen Type: BLOOD No comment entered. Ordering Provider: VICK JEAN Report Released Date/Time: Oct 23, 2024 02:38 PM Reporting Lab: [address] [address] Performing Lab: [address] [address] [facility] Vital Signs Combined list of inpatient and outpatient Vital Signs from Department of Defense and Veterans Affairs, ranging from 12 months to all on record, depending upon the facility. Vital Sign Value Date Comments Source PAIN 0 11/15/2024 08:51:00 [facility] SYSTOLIC BLOOD PRESSURE 108 07/05/2024 10:06:46 [facility] DIASTOLIC BLOOD PRESSURE 72 07/05/2024 10:06:46 [facility] PULSE OXIMETRY 96 07/05/2024 10:06:46 [facility] WEIGHT 204.59 07/05/2024 10:06:46 [facility] BMI 31 kg/m2 07/05/2024 10:06:46 [facility] PAIN 0 07/05/2024 10:06:46 [facility] TEMPERATURE 97.7 07/05/2024 10:06:46 [facility] PULSE 65 07/05/2024 10:06:46 [facility] SYSTOLIC BLOOD PRESSURE 130 07/04/2024 14:43:43 [place] [facility] DIASTOLIC BLOOD PRESSURE 82 07/04/2024 14:43:43 [facility] PULSE OXIMETRY 96 07/04/2024 14:43:43 [facility] WEIGHT 205.91 07/04/2024 14:43:43 [facility] BMI 31 kg/m2 07/04/2024 14:43:43 [facility] HEIGHT 67.992 07/04/2024 14:43:43 [facility] PULSE 54 07/04/2024 14:43:43 [facility] [facility] SYSTOLIC BLOOD PRESSURE 137 06/05/2024 12:53:12 [facility] DIASTOLIC BLOOD PRESSURE 80 06/05/2024 12:53:12 [facility] PULSE 52 06/05/2024 12:53:12 [facility] RESPIRATION 18 06/05/2024 12:53:12 [facility] SYSTOLIC BLOOD PRESSURE 164 03/05/2024 08:56:31 [place] [facility] DIASTOLIC BLOOD PRESSURE 98 03/05/2024 08:56:31 [place] [facility] PULSE OXIMETRY 98 03/05/2024 08:56:31 [facility] WEIGHT 197.98 03/05/2024 08:56:31 [facility] BMI 30 kg/m2 03/05/2024 08:56:31 [facility] PAIN 10 03/05/2024 08:56:31 [facility] TEMPERATURE 96.8 03/05/2024 08:56:31 [facility] PULSE 50 03/05/2024 08:56:31 [facility] RESPIRATION 16 03/05/2024 08:56:31 [facility] Encounters Combined list of: 1) Encounters from Department of Veterans Affairs facilities going backup to the last 18 months, not all VA inpatient encounters are included; 2) Encounters from the Department of Defense facilities going backup to 280 months. Location Location Details Encounter Type Encounter Number Reason For Visit Attending Provider ADM Date DC Date Status Disposition Source [facility] HEARING AID REPAIR/MOD IFYING [id number] Diagnos is: ICD-10- CM Z46.1 Encount er for fitting and adjustm ent of hearing aid Avis ESCALONA 06/15 [facility] Outpatient Encounter [id number] 06/23 [facility] Outpatient Encounter [id number] 06/23 ARCELIA NOGUERA [facility] Outpatient Encounter [id number] 06/29 [facility] Outpatient Encounter [id number] 06/29 [facility] Outpatient Encounter [id number] 06/30 [facility] Outpatient Encounter [id number] 07/01 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 08/10 [facility] OFFICE O/P EST MOD 30 MIN [id number] Diagnos is: ICD-10- CM N18.32 Chronic kidney disease , stage 3b ZULMA JEAN 08/10 [facility] POS AIRWAY PRESSURE CPAP [id number] Diagnos is: ICD-10- CM G47.33 Obstruc tive sleep apnea (adult) (pediat chioma) RA IDA ORR 08/10 [facility] Outpatient Encounter [id number] 08/10 [facility] Outpatient Encounter [id number] 08/15 [facility] Outpatient Encounter [id number] Diagnos is: ICD-10- CM 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 Outpatient Encounter [id number] 08/21 [facility] Outpatient Encounter [id number] [id number] 08/23 [facility] Outpatient Encounter [id number] [id number] GENNY POLANCO 08/30 [facility] ORTHC/PROS TC MGMT SBSQ ENC [id number] [id number] Diagnos is: ICD-10- CM E11.9 Type 2 diabete s mellitu s without complic ations RUSS HALLMAN 08/30 [facility] Outpatient Encounter [id number] 08/30 [facility] Outpatient Encounter [id number] [id number] 08/31 [facility] Outpatient Encounter [id number] [id number] KEVIN BUCKNER Avis JR 09/14 [facility] POS AIRWAY PRESSURE CPAP [id number] [id number] Diagnos is: ICD-10- CM G47.33 Obstruc tive sleep apnea (adult) (pediat chioma) Maryuri WELSH L 09/20 [facility] Outpatient Encounter [id number] [id number] 10/18 [facility] Outpatient Encounter [id number] [id number] 11/27 [facility] MTMS BY PHARM V BELT BUILDER 15 MIN [id number] [id number] TESS MOORE 12/01 [facility] Outpatient Encounter [id number] 01/11 [facility] Outpatient Encounter [id number] LESLY IGLESIAS 02/06 [facility] Outpatient Encounter [id number] [id number] MAJOR RIDDLE 02/10 [facility] OFFICE O/P EST HI 40 MIN [id number] Diagnos is: ICD-10- CM N18.4 Chronic kidney disease , stage 4 (severe ) ZULMA JEAN 02/15 [facility] Outpatient Encounter [id number] [id number] 02/26 [facility] Outpatient Encounter [id number] [id number] 02/26 ARCELIA [facility] Outpatient Encounter [id number] [id number] 03/05 ARCELIA [facility] OFFICE O/P EST HI 40 MIN [id number] [id number] Diagnos is: ICD-10- CM E11.9 Type 2 diabete s mellitu s without complic ations SUHAIL HOWARD MD 03/05 [facility] MTMS BY PHARM V BELT BUILDER 15 MIN [id number] [id number] RADAMESKATHRYNOTONIEL JOSUÉ Anup 03/05 [facility] Outpatient Encounter [id number] [id number] Camilo QUINTEROS 03/05 [facility] Outpatient Encounter [id number] [id number] 03/22 [facility] COMPRE OPH EXAM EST PT 1/> [id number] [id number] Diagnos is: ICD-10- CM E11.9 Type 2 diabete s mellitu s without complic ations RENNY MULLEN OD 04/10 [facility] SELF-MGMT EDUC/TRAIN 2-4 [place] [id number] [id number] Diagnos is: ICD-10- CM E11.9 Type 2 diabete s mellitu s without complic ations JAIR CRUZ 04/12 [facility] Outpatient Encounter [id number] 05/01 [facility] Outpatient Encounter [id number] [id number] 05/08 [facility] Outpatient Encounter [id number] [id number] 05/08 [facility] MTMS BY PHARM ADDL 15 MIN [id number] [id number] Diagnos is: ICD-10- CM E11.9 Type 2 diabete s mellitu s without complic ations ANITA LEÓN 05/10 [facility] Outpatient Encounter [id number] 05/11 [facility] Outpatient Encounter [id number] [id number] 05/15 [facility] OFFICE O/P NEW MOD 45 MIN [id number] [id number] Diagnos is: ICD-10- CM 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, right eye CHACORTA LENNON 06/05 [facility] OFFICE O/P EST MOD 30 MIN [id number] [id number] Diagnos is: ICD-10- CM Z01.818 Encount er for other preproc edural examina chrissy MALONETAMRA L 06/05 [facility] OFFICE O/P EST SF 10 MIN [id number] [id number] Diagnos is: ICD-10- CM H25.813 Combine d forms of age-rel ated catarac t, bilater al ANTONIO LAW 06/05 [facility] Outpatient Encounter [id number] [id number] 06/11 [facility] Outpatient Encounter [id number] [id number] CLINICOMP, CIS 06/14 [facility] Outpatient Encounter [id number] [id number] 06/14 [facility] Outpatient Encounter [id number] [id number] 06/14 [facility] NQHP OL DIG ASSMT&MGMT 21+ [id number] [id number] Diagnos is: ICD-10- CM R14.3 Flatule JUAN Campos 06/21 [facility] Outpatient Encounter [id number] [id number] 07/03 [facility] Outpatient Encounter [id number] [id number] 07/03 [facility] Outpatient Encounter [id number] [id number] 07/04 [facility] OFFICE O/P EST MOD 30 MIN [id number] [id number] Diagnos is: ICD-10- CM N18.32 Chronic kidney disease , stage 3b ZULMA JEAN 07/05 [facility] Outpatient Encounter [id number] [id number] 07/11 [facility] Outpatient Encounter [id number] [id number] 07/11 [facility] Outpatient Encounter [id number] [id number] 07/17 [facility] Outpatient Encounter [id number] [id number] 08/01 [facility] Outpatient Encounter [id number] [id number] 08/07 [facility] OFF/OP EST MAY X REQ PHY/QHP [id number] [id number] Diagnos is: ICD-10- CM Z00.8 Encount er for other general examina QUANG Gimenez 08/10 [facility] Outpatient Encounter [id number] [id number] 10/16 [facility] Outpatient Encounter [id number] [id number] Diagnos is: ICD-10- CM R42 Dizzine ss and giddine ss TERRENCE,RA NA S 10/16 [facility] Outpatient Encounter [id number] [id number] 10/22 [facility] Outpatient Encounter [id number] [id number] 10/23 ARCELIA [address]A [facility] SYNCH AUDIO-ONLY EST MOD 30 [id number] [id number] Diagnos is: ICD-10- CM N17.0 Acute kidney failure with tubular necrosi s ZULMA JEAN 10/26 [facility] NQHP OL DIG ASSMT&MGMT 5-10 [id number] [id number] Diagnos is: ICD-10- CM I48.91 Unspeci fied atrial fibrill atJann ReynagaABETH 10/29 [facility] OFFICE O/P EST MOD 30 MIN [id number] [id number] Diagnos is: ICD-10- CM N18.30 Chronic kidney disease , stage 3 unspeci fied [facility]UL[facility] JEAN [facility] 11/15 [facility] Social History Combined list of available smoking, tobacco, and other 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 Social History Type Response Date Comment Sourc e Tobacco smoking status NHIS NM-TOBACCO NEVER USED 08/16/2023 [facility] of [facility]20[facility] History of tobacco use NM-TOBACCO NEVER USED 04/28/2021 [facility]/2019 [facility] History of tobacco use NM-TOBACCO NEVER USED 12/15/2017 [facility] History of tobacco use LIFETIME NON-USER OF TOBACCO 08/18/2017 [facility] History of tobacco use LIFETIME NON-USER OF TOBACCO 09/01/2016 [facility] History of tobacco use LIFETIME NON-USER OF TOBACCO 08/21/2015 [facility] Plan of Care List of future care activities from Department of Veterans 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 Additional future care activities may be listed in the Assessment and Plan section. Date/Time Care Activity Care Activity Detail Facili ty 04/05/2025 AMBULATORY - SURGERY AMBULATORY - SURGERY [facility]
--- OUTSIDE RECORDS SUMMARY | 2024-12-11 12:11 | XMS_ITS | Encounter Summary ---
Author Organization [facility] Address [address] [place] [address] Care Team Providers Care Payroll Assistant Name Role Phone Mason Membreno MD Unavailable [phone] Mason Membreno MD Primary Care Provider [phone] Allyssa Aguilar LPN Unavailable Encounter Details Date Type Department Care Team (Late Contact Info) Description 03/14/2023 Abstract [facility] [address] [facility] [address] [place] [id number] Mason Membreno MD [address] [facility] [address] [place] [address] Social History Tobacco Use Types Packs/Day Years [...] Department Care Team (Late Contact Info) Description 01/17/2025 8:30 AM EDT Office Visit [facility] [address] [place] [address] [place] [address] Kyrie Montes De Oca, DPM 3[address] [facility] [address] [place] [address] 02/07/2025 8:30 AM EDT Office Visit [facility] [place] [facility] [address] [facility] [address] [place] [address] Mason Membreno MD [address] [facility] [address] [place] [address] 02/12/2025 9:30 AM EDT Office Visit [facility] [place] [facility] [address] [facility] [address] [place] [address] Syed White MD 5[address] [facility] [address] [place], [place] [phone] documented as of this encounter Visit Diagnoses Not on filedocumented in this encounter Care Teams Payroll Assistant Relationship Specialty Start Date End Date Mason Membreno MD [address] [facility] [address] [place] [address] PCP - ACO Reach 09/30/22 Mason Membreno MD [address] [facility] [address] [place] [address] PCP - General Internal Medicine 10/06/22 Allyssa Aguilar LPN [address] [facility] [address] [place] [address] 11/16/24 11/20/24 documented as of this encounter
--- OUTSIDE RECORDS SUMMARY | 2024-12-11 12:11 | XMS_ITS | Encounter Summary ---
Author Organization [facility] Address [address] [place] [address] Care Team Providers Care Scenario Writer Name Role Phone Mason Membreno MD Unavailable [phone] Mason Membreno MD Primary Care Provider Allyssa Aguilar LPN Unavailable Encounter Details Date Type Department Care Team (Late Contact Info) Description 06/17/[address] [facility] 112 [facility] 110 [place] [address] Mason Membreno MD 112 [facility] [address] [place] [address] Social History Tobacco Use Types Packs/Day Years [...] Visit [facility] [address] [facility] [address] [place] [address] Kyrie Montes De Oca, DPMaryuri 3006 [facility] 5 [place] [address] 02/07/2025 8:30 AM EDT Office Visit [facility] [place] [facility] [address] [facility] [address] [place] [address] Mason Membreno MD [address] [facility] [address] [place] [address] 02/12/2025 9:30 AM EDT Office Visit [facility] [place] [facility] [address] [facility] [address] [place] [address] Syed White MD 9647 [facility] 111 [place], [place] [phone] documented as of this encounter Visit Diagnoses Not on filedocumented in this encounter Care Teams Scenario Writer Relationship Specialty Start Date End Date Mason Membreno MD [address] [facility] [address] [place] [address] PCP - ACO Reach 09/30/22 Mason Membreno MD [address] [facility] [address] [place] [address] PCP - General Internal Medicine 10/06/22 Allyssa Aguilar LPN [address] [facility] [address] [place] [address] 11/16/24 11/20/24 documented as of this encounter
--- OUTSIDE RECORDS SUMMARY | 2024-12-11 12:11 | XMS_ITS | Encounter Summary ---
Author Organization [facility] Address [address] [place] [address] Care Team Providers Care Forging Die Finisher Name Role Phone Mason Membreno MD Unavailable [phone] Mason Membreno MD Primary Care Provider [phone] Allyssa Aguilar LPN Unavailable Encounter Details Date Type Department Care Team (Late Contact Info) Description 03/30/2023 Orders Only [facility] [place] [facility] 112 [facility] 110 [place] [address] A, Unknown Practice [address] [place], [place] [address] Social History Tobacco Use Types Packs/Day Years [...] Visit [facility] [address] [facility] 120 [place] [address] Kyrie Montes De Oca, DPMaryuri 3006 [facility] 5 [place] [address] 02/07/2025 8:30 AM EDT Office Visit [facility] [place] [facility] [address] [facility] 110 [place] [address] Mason Membreno MD [address] [facility] 110 [place] [address] 02/12/2025 9:30 AM EDT Office Visit [facility] [place] [facility] [address] [facility] 310 [place] [address] Syed White MD 6790 [facility] 111 [place] [address] documented as of this encounter Procedures Procedure Name Priority Date/Time Associated Diagnosis Comments HOME SLEEP TEST Routine 03/30/2023 1:50 PM EST documented in this encounter Results * Home sleep test (03/30/2023 1:50 PM EST) us Unknown Practice [facility] ORDERABLES Final Result documented in this encounter Visit Diagnoses Not on filedocumented in this encounter Care Teams Forging Die Finisher Relationship Specialty Start Date End Date Mason Membreno MD [address] [facility] 110 [place] [address] PCP - ACO Reach 09/30/22 Mason Membreno MD [address] [facility] 110 [place] [address] PCP - General Internal Medicine 10/06/22 Allyssa Aguilar LPN [address] [facility] 110 [place] [address] 11/16/24 11/20/24 documented as of this encounter
--- OUTSIDE RECORDS SUMMARY | 2024-12-11 12:11 | XMS_ITS | Encounter Summary ---
Author Organization [facility] Address [address] [place] [address] Care Team Providers Care Head Teller Name Role Phone Mason Membreno MD Unavailable [phone] Mason Membreno MD Primary Care Provider [phone] Allyssa Aguilar LPN Unavailable Encounter Details Date Type Department Care Team (Late Contact Info) Description 03/03/2023 Abstract [facility] 112 [facility] 110 [place] [address] Mason Membreno MD [address] [facility] 110 [place] [address] Social History Tobacco Use Types Packs/Day Years [...] [address] [place] [address] [place] [address] Kyrie Montes De Oca, DPM 3006 [facility] [address] [place] [address] 02/07/2025 8:30 AM EDT Office Visit [facility] [place] [facility] [address] [facility] 110 [place] [address] Mason Membreno MD [address] [facility] 110 [place] [address] 02/12/2025 9:30 AM EDT Office Visit [facility] [place] [facility] [address] [facility] 310 [place] [address] Syed White MD 5383 [facility] 111 [place], [place] [id number] documented as of this encounter Visit Diagnoses Not on filedocumented in this encounter Care Teams Head Teller Relationship Specialty Start Date End Date Mason Membreno MD [address] [facility] 110 [place] [address] PCP - ACO Reach 09/30/22 Mason Membreno MD [address] [facility] 110 [place] [address] PCP - General Internal Medicine 10/06/22 Allyssa Aguilar LPN [address] [facility] 110 [place] [address] 11/16/24 11/20/24 documented as of this encounter
--- OUTSIDE RECORDS SUMMARY | 2024-12-11 12:11 | XMS_ITS | Clinical Summary ---
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 Continue home [...] mg EC tabletIndication s:Coronary artery disease involving benton coronary artery of benton heart without angina pectoris Take 1 tablet [...] (04/28/2022): Added automatically from request for surgery [id number] Abnormal MRI 04/21/2022 Dysuria 04/21/2022 Microhematuria 04/21/2022 [...] cified 05/04/2017 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
--- OUTSIDE RECORDS SUMMARY | 2024-12-11 12:11 | XMS_ITS | Encounter Summary ---
Author Organization [facility] Address [address] [place] [address] Care Team Providers Care Transportation Superintendent Name Role Phone Mason Membreno MD Unavailable [phone] Mason Membreno MD Primary Care Provider [phone] Allyssa Aguilar LPN Unavailable Encounter Details Date Type Department Care Team (Late Contact Info) Description 01/10/2024 Abstract [facility] 112 [facility] 110 [place] [address] Mason Membreno MD 112 [facility] 110 [place] [address] Social History Tobacco Use Types Packs/Day Years [...] Visit [facility] [address] [facility] 120 [place] [address] Kyrie Montes De Oca, DPMaryuri 3006 [facility] 5 [place] [address] 02/07/2025 8:30 AM EDT Office Visit [facility] [place] [facility] [address] [facility] 110 [place] [address] Mason Membreno MD [address] [facility] 110 [place] [address] 02/12/2025 9:30 AM EDT Office Visit [facility] [place] [facility] [address] [facility] 310 [place] [address] Syed White MD 6126 [facility] 111 [place], [place] [phone] documented as of this encounter Visit Diagnoses Not on filedocumented in this encounter Care Teams Transportation Superintendent Relationship Specialty Start Date End Date Mason Membreno MD [address] [facility] 110 [place] [address] PCP - ACO Reach 09/30/22 Mason Membreno MD [address] [facility] 110 [place] [address] PCP - General Internal Medicine 10/06/22 Allyssa Aguilar LPN [address] [facility] 110 [place] [address] 11/16/24 11/20/24 documented as of this encounter
--- OUTSIDE RECORDS SUMMARY | 2024-12-11 12:11 | XMS_ITS | Clinical Summary ---
Author Organization [facility] Address [address] [place] [address] Phone Care Team Providers Care Wind Turbine Service Technician Name Role Phone Mason Membreno MD Primary Care Provider [phone] Social History Tobacco Use Types Packs/Day Years [...] FIT 1952 Lipid Panel 1952 Sigmoidoscopy 1952 MMR Vaccines (1 of 1 - Standard series) 1953 Hepatitis C Screening 1970 DTaP/Tdap/Td Vaccines (1 [...] age to complete this topic Care Teams Wind Turbine Service Technician Relationship Specialty Start Date End Date Mason Membreno MD 112 [facility] 110 [place] [address] PCP - General 09/21/22
--- OUTSIDE RECORDS SUMMARY | 2024-12-11 12:11 | XMS_ITS | Encounter Summary ---
Author Organization [facility] Address [address] [place] [address] Care Team Providers Care Material Handling Equipment Stevedore Name Role Phone Mason Membreno MD Unavailable [phone] Mason Membreno MD Primary Care Provider [phone] Allyssa Aguilar LPN Unavailable Encounter Details Date Type Department Care Team (Late Contact Info) Description 03/09/2023 Abstract [facility] 112 [facility] 110 [place] [address] Mason Membreno MD [address] [facility] 110 [place] [address] Social History Tobacco Use Types Packs/Day Years [...] [address] [place] [address] [place] [address] Kyrie Montes De Oca, DPM 3006 [facility] [address] [place] [address] 02/07/2025 8:30 AM EDT Office Visit [facility] [place] [facility] [address] [facility] 110 [place] [address] Mason Membreno MD [address] [facility] 110 [place] [address] 02/12/2025 9:30 AM EDT Office Visit [facility] [place] [facility] [address] [facility] 310 [place] [address] Syed White MD 5343 [facility] 111 [place], [place] [phone] documented as of this encounter Visit Diagnoses Not on filedocumented in this encounter Care Teams Material Handling Equipment Stevedore Relationship Specialty Start Date End Date Mason Membreno MD [address] [facility] 110 [place] [address] PCP - ACO Reach 09/30/22 Mason Membreno MD [address] [facility] 110 [place] [address] PCP - General Internal Medicine 10/06/22 Allyssa Aguilar LPN [address] [facility] 110 [place] [address] 11/16/24 11/20/24 documented as of this encounter
--- OUTSIDE RECORDS SUMMARY | 2024-12-11 12:11 | XMS_ITS | Encounter Summary ---
Author Organization [facility] Address [address] [place] [address] Care Team Providers Care Furniture Mechanic Name Role Phone Mason Membreno MD Unavailable [phone] Mason Membreno MD Primary Care Provider [phone] Allyssa Aguilar LPN Unavailable Encounter Details Date Type Department Care Team (Late Contact Info) Description 02/25/2023 Abstract [facility] 112 [facility] 110 [place] [address] Mason Membreno MD 112 [address] [facility] 110 [place] [address] Social History Tobacco Use Types Packs/Day Years [...] [address] [place] [address] [place] [address] Kyrie Montes De Oca, DPM 3006 [facility] 5 [place] [address] 02/07/2025 8:30 AM EDT Office Visit [facility] [place] [facility] [address] [facility] 110 [place] [address] Mason Membreno MD [address] [facility] 110 [place] [address] 02/12/2025 9:30 AM EDT Office Visit [facility] [place] [facility] [address] [facility] 310 [place] [address] Syed White MD 5325 [facility] 111 [place], [place] [address] documented as of this encounter Visit Diagnoses Not on filedocumented in this encounter Care Teams Furniture Mechanic Relationship Specialty Start Date End Date Mason Membreno MD [address] [facility] 110 [place] [address] PCP - ACO Reach 09/30/22 Mason Membreno MD [address] [facility] 110 [place] [address] PCP - General Internal Medicine 10/06/22 Allyssa Aguilar LPN [address] [facility] 110 [place] [address] 11/16/24 11/20/24 documented as of this encounter
--- OUTSIDE RECORDS SUMMARY | 2024-12-11 12:11 | XMS_ITS | Encounter Summary ---
Author Organization [facility] Address [address] [place] [address] Care Team Providers Care Geospatial Engineer Name Role Phone Mason Membreno MD Primary Care Provider [phone] Reason for Visit * Reason Comments Med Refill Encounter Details Date Type Department Care Team (Late st Contact Info) Description 11/18/2022 Refill [facility] [address] [place] [address] Sandra Chaves MD 1000 [facility] 200 [place], [place] [id number] Coronary artery disease, unspecified vessel or lesion type, unspecified whether angina present, unspecified whether alturas or transplanted heart Social History Tobacco Use [...] type, unspecified whether angina present, unspecified whether alturas or transplanted heart documented in this encounter Care Teams Geospatial Engineer Relationship Specialty Start Date End Date Mason Membreno MD 112 [facility] 110 [place] [address] PCP - General 04/20/22 documented as of this encounter
--- OUTSIDE RECORDS SUMMARY | 2024-12-11 12:11 | XMS_ITS | Encounter Summary ---
Author Organization [facility] Address [address] [place] [address] Care Team Providers Care Elementary Supervisor Name Role Phone Mason Membreno MD Unavailable [phone] Mason Membreno MD Primary Care Provider [phone] Allyssa Aguilar LPN Unavailable Encounter Details Date Type Department Care Team (Late Contact Info) Description 02/22/2023 Abstract [facility] 112 [facility] 110 [place] [address] Mason Membreno MD [address] [facility] 110 [place] [address] Social History Tobacco Use Types Packs/Day Years [...] [address] [place] [address] [place] [address] Kyrie Montes De Oca, DPM 3006 [facility] [address] [place] [address] 02/07/2025 8:30 AM EDT Office Visit [facility] [place] [facility] [address] [facility] 110 [place] [address] Mason Membreno MD [address] [facility] 110 [place] [address] 02/12/2025 9:30 AM EDT Office Visit [facility] [place] [facility] [address] [facility] [address] [place] [address] Syed White MD 5346 [facility] 111 [place], [place] [phone] documented as of this encounter Visit Diagnoses Not on filedocumented in this encounter Care Teams Elementary Supervisor Relationship Specialty Start Date End Date Mason Membreno MD [address] [facility] 110 [place] [address] PCP - ACO Reach 09/30/22 Mason Membreno MD [address] [facility] 110 [place] [address] PCP - General Internal Medicine 10/06/22 Allyssa Aguilar LPN [address] [facility] 110 [place] [address] 11/16/24 11/20/24 documented as of this encounter
--- OUTSIDE RECORDS SUMMARY | 2024-12-11 12:11 | XMS_ITS | Encounter Summary ---
Author Organization [facility] Address [address] [place] [address] Care Team Providers Care Senior Manager Mmcoe Name Role Phone Mason Membreno MD Unavailable [phone] Mason Membreno MD Primary Care Provider [phone] Allyssa Aguilar LPN Unavailable Encounter Details Date Type Department Care Team (Late st Contact Info) Description 02/25/2023 Orders Only [facility] [place] [facility] [address] [place] [address] [place] [address] A, Unknown Practice [address] [place], [place] [address] Social History Tobacco Use Types Packs/Day Years [...] [address] [place] [address] [place] [address] Kyrie Montes De Oca, DPM 3006 [facility] 5 [place] [address] 02/07/2025 8:30 AM EDT Office Visit [facility] [place] [facility] [address] [facility] 110 [place] [address] Mason Membreno MD [address] [facility] 110 [place] [address] 02/12/2025 9:30 AM EDT Office Visit [facility] [place] [facility] [address] [facility] [address] [place] [address] Syed White MD 9736 [facility] 111 [place], [place] [address] documented as of this encounter Procedures Procedure Name Priority Date/Time Associated Diagnosis Comments ELECTROCARDIOGRAM REPORT Routine 023 9:07 AM EDT documented in this encounter Results * Electrocardiogram Report (02/24/2023 9:07 AM EDT) us Unknown Practice A IN CLINIC/BEDSIDE ORDERABLES Final Result documented in this encounter Visit Diagnoses Not on filedocumented in this encounter Care Teams Senior Manager Mmcoe Relationship Specialty Start Date End Date Mason Membreno MD [address] [facility] 110 [place] [address] PCP - ACO Reach 09/30/22 Mason Membreno MD [address] [facility] 110 [place] [address] PCP - General Internal Medicine 10/06/22 Allyssa Aguilar LPN [address] [facility] [address] [place] [address] 11/16/24 11/20/24 documented as of this encounter
--- OUTSIDE RECORDS SUMMARY | 2024-12-11 12:11 | XMS_ITS | Encounter Summary ---
Author Organization [facility] Address [address] [place] [address] Phone Care Team Providers Care Dermatology Specialist Name Role Phone Mason Membreno MD Primary Care Provider [phone] Encounter Details Date Type Department Care Team (Late st Contact Info) Description 04/03/2021 Orders Only [facility] [address] [place] [address] Conversion, Onbase Social History Tobacco Use Types Packs/Day Years Used Date Smoking Tobacco: Never Assessed Sex and Gender Information Value Date Recorded Sex Assigned at Not on file Legal Sex Male 6:29 AM EST Gender Identity Not on file Sexual Orientation Not on file documented as of this encounter Plan of Treatment Scheduled Orders Name Type Priority Associated Diagnoses Orde r Schedule OUTSIDE LAB SCAN Lab Ordered: 04/03/2021 documented as of this encounter Visit Diagnoses Not on filedocumented in this encounter Care Teams Dermatology Specialist Relationship Specialty Start Date End Date Mason Membreno MD [address] [place] [address] [place] [address] PCP - General 09/21/22 documented as of this encounter
--- OUTSIDE RECORDS SUMMARY | 2024-12-11 12:11 | XMS_ITS | Encounter Summary ---
Author Organization [facility] Address [address] [place] [address] Care Team Providers Care Optical Effects Line Up Person Name Role Phone Mason Membreno MD Unavailable [phone] Mason Membreno MD Primary Care Provider [phone] Allyssa Aguilar LPN Unavailable Encounter Details Date Type Department Care Team (Late Contact Info) Description 03/29/2023 Abstract [facility] 112 [facility] 110 [place] [address] Mason Membreno MD 112 [facility] 110 [place] [address] Social History Tobacco Use Types Packs/Day Years [...] Visit [facility] [address] [facility] 120 [place] [address] Kyrie Montes De Oca, DPMaryuri 3006 [facility] 5 [place] [address] 02/07/2025 8:30 AM EDT Office Visit [facility] [place] [facility] [address] [facility] 110 [place] [address] Mason Membreno MD [address] [facility] 110 [place] [address] 02/12/2025 9:30 AM EDT Office Visit [facility] [place] [facility] [address] [facility] 310 [place] [address] Syed White MD 4230 [facility] 111 [place], [place] [phone] documented as of this encounter Visit Diagnoses Not on filedocumented in this encounter Care Teams Optical Effects Line Up Person Relationship Specialty Start Date End Date Mason Membreno MD [address] [facility] 110 [place] [address] PCP - ACO Reach 09/30/22 Mason Membreno MD [address] [facility] 110 [place] [address] PCP - General Internal Medicine 10/06/22 Allyssa Aguilar LPN [address] [facility] 110 [place] [address] 11/16/24 11/20/24 documented as of this encounter
--- OUTSIDE RECORDS SUMMARY | 2024-12-11 12:11 | XMS_ITS | Encounter Summary ---
Author Organization [facility] Address [address] [place] [address] Care Team Providers Care Retail Furniture Sales Name Role Phone Mason Membreno MD Unavailable [phone] Mason Membreno MD Primary Care Provider [phone] Allyssa Aguilar LPN Unavailable Encounter Details Date Type Department Care Team (Late Contact Info) Description 02/22/2023 Abstract [facility] 112 [facility] [address] [place] [address] Mason Membreno MD [address] [facility] [address] [place] [address] Social History Tobacco Use Types Packs/Day Years [...] [address] [place] [address] [place] [address] Kyrie Montes De Oca, DPM 3006 [facility] 5 [place] [address] 02/07/2025 8:30 AM EDT Office Visit [facility] [place] [facility] [address] [facility] 110 [place] [address] Mason Membreno MD [address] [facility] 110 [place] [address] 02/12/2025 9:30 AM EDT Office Visit [facility] [place] [facility] [address] [facility] 310 [place] [address] Syed White MD 5344 [facility] 111 [place], [place] [phone] documented as of this encounter Visit Diagnoses Not on filedocumented in this encounter Care Teams Retail Furniture Sales Relationship Specialty Start Date End Date Mason Membreno MD [address] [facility] 110 [place] [address] PCP - ACO Reach 09/30/22 Mason Membreno MD [address] [facility] 110 [place] [address] PCP - General Internal Medicine 10/06/22 Allyssa Aguilar LPN [address] [facility] 110 [place] [address] 11/16/24 11/20/24 documented as of this encounter
--- OUTSIDE RECORDS SUMMARY | 2024-12-11 12:12 | XMS_ITS | Encounter Summary ---
Author Organization [facility] Address [address] [place] [address] Care Team Providers Care Senior Mobile Application Developer Name Role Phone Mason Membreno MD Unavailable [phone] Mason Membreno MD Primary Care Provider [phone] Allyssa Aguilar LPN Unavailable Encounter Details Date Type Department Care Team (Late st Contact Info) Description 02/09/2023 Orders Only [facility] [place] [facility] [address] [place] [address] [place] [address] A, Unknown Practice [address] [place], [place] [id number] Social History Tobacco Use Types Packs/Day Years [...] [facility] [address] [place] [address] [place] [address] Kyrie Montes De Oca, DPM 3006 [facility] 5 [place] [address] 02/07/2025 8:30 AM EDT Office [facility] 112 [facility] 110 [place] [address] Mason Membreno MD 112 [facility] 110 [place] [address] 02/12/2025 9:30 AM EDT Office Visit [facility] [place] [facility] [address] [facility] [address] [place] [address] Syed White MD 6363 [facility] 111 [place], [place] [phone] documented as of this encounter Procedures Procedure [...] filedocumented in this encounter Care Teams Senior Mobile Application Developer Relationship Specialty Start Date End Date Mason Membreno MD 112 [place] 110 [place] [address] PCP - ACO Reach 09/30/22 Mason Membreno MD [address] [place] 110 [place] [address] PCP - General Internal Medicine 10/06/22 Allyssa Aguilar LPN 112 [facility] 110 [place] [address] 11/16/24 11/20/24 documented as of this encounter
--- OUTSIDE RECORDS SUMMARY | 2024-12-11 12:12 | XMS_ITS | Encounter Summary ---
Author Organization [facility] Address [address] [place] [address] Care Team Providers Care Child Adolescent Care Name Role Phone Mason Membreno MD Unavailable [phone] Mason Membreno MD Primary Care Provider [phone] Allyssa Aguilar LPN Unavailable Encounter Details Date Type Department Care Team (Late Contact Info) Description 03/01/2023 Abstract [facility] 112 [facility] 110 [place] [address] Mason Membreno MD 112 [place] [facility] 110 [place] [address] Social History Tobacco Use Types Packs/Day Years [...] [address] [place] [address] [place] [address] Kyrie Montes De Oca, DPM 3006 [facility] 5 [place] [address] 02/07/2025 8:30 AM EDT Office Visit [facility] [place] [facility] [address] [facility] 110 [place] [address] Mason Membreno MD [address] [facility] 110 [place] [address] 02/12/2025 9:30 AM EDT Office Visit [facility] [place] [facility] [address] [facility] 310 [place] [address] Syed White MD 5346 [facility] 111 [place], [place] [id number] documented as of this encounter Visit Diagnoses Not on filedocumented in this encounter Care Teams Child Adolescent Care Relationship Specialty Start Date End Date Mason Membreno MD [address] [facility] 110 [place] [address] PCP - ACO Reach 09/30/22 Mason Membreno MD [address] [facility] 110 [place] [address] PCP - General Internal Medicine 10/06/22 Allyssa Aguilar LPN [address] [facility] 110 [place] [address] 11/16/24 11/20/24 documented as of this encounter
--- OUTSIDE RECORDS SUMMARY | 2024-12-11 12:12 | XMS_ITS | Encounter Summary ---
Author Organization [facility] Address [address] [place] [address] Care Team Providers Care Water Pump Assembler Name Role Phone Mason Membreno MD Unavailable [phone] Mason Membreno MD Primary Care Provider Allyssa Aguilar LPN Unavailable Encounter Details Date Type Department Care Team (Late Contact Info) Description 12/28/2022 Abstract [facility] 112 [facility] 110 [place] [address] Mason Membreno MD 112 [facility] 110 [place] [address] Social History Tobacco Use Types Packs/Day Years [...] [address] [place] [address] [place] [address] Kyrie Montes De Oca, DPM 3006 [facility] 5 [place] [address] 02/07/2025 8:30 AM EDT Office Visit [facility] [place] [facility] [address] [facility] 110 [place] [address] Mason Membreno MD [address] [facility] 110 [place] [address] 02/12/2025 9:30 AM EDT Office Visit [facility] [place] [facility] [address] [facility] 310 [place] [address] Syed White MD 5306 [facility] 111 [place], [place] [phone] documented as of this encounter Visit Diagnoses Not on filedocumented in this encounter Care Teams Water Pump Assembler Relationship Specialty Start Date End Date Mason Membreno MD [address] [facility] 110 [place] [address] PCP - ACO Reach 09/30/22 Mason Membreno MD [address] [facility] 110 [place] [address] PCP - General Internal Medicine 10/06/22 Allyssa Aguilar LPN [address] [facility] 110 [place] [address] 11/16/24 11/20/24 documented as of this encounter
--- OUTSIDE RECORDS SUMMARY | 2024-12-11 12:12 | XMS_ITS | Encounter Summary ---
Author Organization [facility] Address [address] [place] [address] Care Team Providers Care Drywall Sprayer Name Role Phone Mason Membreno MD Unavailable [phone] Mason Membreno MD Primary Care Provider [phone] Allyssa Aguilar LPN Unavailable Encounter Details Date Type Department Care Team (Late Contact Info) Description 03/26/2024 Abstract [facility] 112 [facility] 110 [place] [address] Mason Membreno MD 112 [facility] 110 [place] [address] Social History Tobacco Use Types Packs/Day Years [...] [facility] 120 [place] [address] Kyrie Montes De Oca, DPMaryuri 3006 [facility] 5 [place] [address] 02/07/2025 8:30 AM EDT Office Visit [facility] [place] [facility] [address] [facility] 110 [place] [address] Mason Membreno MD [address] [facility] 110 [place] [address] 02/12/2025 9:30 AM EDT Office Visit [facility] [place] [facility] [address] [facility] 310 [place] [address] Syed White MD 8359 [facility] 111 [place], [place] [phone] documented as of this encounter Visit Diagnoses Not on filedocumented in this encounter Care Teams Drywall Sprayer Relationship Specialty Start Date End Date Mason Membreno MD [address] [facility] 110 [place] [address] PCP - ACO Reach 09/30/22 Mason Membreno MD [address] [facility] 110 [place] [address] PCP - General Internal Medicine 10/06/22 Allyssa Aguilar LPN [address] [facility] 110 [place] [address] 11/16/24 11/20/24 documented as of this encounter
--- OUTSIDE RECORDS SUMMARY | 2024-12-11 12:12 | XMS_ITS | Clinical Summary ---
Author Organization [facility] Address [address] [facility] [place] [address] Care Team Providers Care Drum Sprayer Name Role Phone Mason Membreno MD Unavailable [phone] Mason Membreno MD Primary Care Provider Allergies Active Allergy Reactions Criticality Noted Date Comments Aspartame Diarrhea 01/27/2024 Isosorbide Nitrate Other 04/21/2022 Profound hypotension after single 30 mg dose. Medications apixaban (Eliquis) 5 MG tablet 5 mg every 12 (twelve) hours. Active Ascorbic Acid (Vitamin C) 500 MG capsule Take 1 tablet by mouth 1 (one) time each day. Active ergocalciferol (Vitamin D-2) 1.25 MG (59968 UT) capsule Take 1 capsule by mouth [...] skin 1 (one) time per week. Active finasteride (Proscar) 5 MG tablet Take 5 mg by mouth in the morning. Do not crush, chew, or split. . Active atorvastatin (Lipitor) 40 MG tabletIndications: Routine general medical examination at health care facility Take 1 tablet (40 mg) by mouth in the morning. 90 tablet 3 023 Active citalopram (CeleXA) 20 MG tabletIndications: Routine general medical examination at health care facility Take 1 tablet (20 mg) by mouth in the morning. 90 tablet 3 023 Active albuterol (2.5 MG/3ML) 0.083% nebulizer solutionIndication s:COVID-19 Take 3 mL (2.5 mg) by nebulization every 4 (four) hours if needed for wheezing. 75 mL 3 023 Active pantoprazole (Protonix) 40 MG EC tabletIndications: Gastrointestinal hemorrhage, unspecified gastrointestinal hemorrhage type Take 1 tablet (40 mg) by mouth in the morning and at noon. Do not crush, chew, or split. 180 tablet 3 023 Active gabapentin (Neurontin) 400 MG capsuleIndications :Neurogenic pain 1 cap every evening and 1 cap at bedtime 60 capsule 11 024 Active Jardiance 10 MG Take 10 mg by mouth Daily 025 Active metoprolol tartrate (Lopressor) 25 MG tablet Take 12.5 mg by mouth in the morning and 12.5 mg before bedtime. Active lisinopril 10 MG tabletIndications: Hypertrophic cardiomyopathy (HCC) Take 2 tablets (20 mg) by mouth Daily Active albuterol HFA 90 mcg/act inhalerIndications :Mild intermittent asthma without complication (HCC) Inhale 2 puffs every 4 (four) hours if needed for wheezing 18 g 11 Active tamsulosin (Flomax) 0.4 MG 24 hr capsule Take 0.4 mg by mouth 1 (one) time each day at the same time. 2024 Discontinued lisinopril 10 MG tablet Take 10 mg by mouth Daily 2024 Discontinued(D ose adjustment) oxyCODONE-acetamin ophen (Percocet) 5-325 MG tablet Take 1 tablet by mouth every 8 (eight) hours if needed 2024 Discontinued amoxicillin (Amoxil) 500 MG capsule Take 500 mg by mouth in the morning and 500 mg in the evening and 500 mg before bedtime. 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 06/06/2015 Flank pain 02/23/2013 Resolved Problems Problem Noted Date Diagnosed Date Resolved Date Encounter for fitting and ad justment of hearing aid 02/09/2023 03/29/2023 Encounter for immunization 02/09/2023 1 05/29/2022 Acute sinusitis 10/06/2022 03/29/2023 Diverticulitis 10/06/2022 03/29/2023 Indigestion 10/06/2022 03/29/2023 Diverticular disease of colon 03/29/2018 03/29/2023 Encounters Date Type Department Care Team Description 12/05/2024 9:00 AM EDT Office Visit [facility] [place] [facility] [address] [facility] 110 [place] [address] Mason Membreno MD Mild intermittent asthma without complication (HCC) (Primary Dx); Pain of left hand; Hypertrophic cardiomyopathy (HCC) 12/05/2024 [facility]amboo [facility] [address] [facility] 110 [place] [address] Mason Membreno MD 12/05/2024 Travel 12/04/2024 Clinisync Result Encounter NOMS External Department Unsolicited Provider, Generic External Data 11/16/2024 Patient Outreach [facility] [address] [place] [address] Allyssa Aguilar LPN 11/06/2024 Telephone [facility] 112 [facility] 110 [place] [address] Sheba Rodriguez PA 11/05/2024 11:30 AM EDT Office Visit [facility] [place] [facility] [address] [place] [address] Kyrie Montes De Oca DPM Diabetes mellitus due to underlying condition with diabetic polyneuropathy, with long-term current use of insulin (HCC) (Primary Dx); Pain due to onychomycosis of toenails of both feet; Plantar fasciitis 11/05/2024 Bamboo flowsheet [facility] [address] [facility] [place] [address] Kyrie Montes De Oca DPM 11/01/2024 10:30 AM EDT Office Visit [facility] [place] [facility] [address] [place] [address] [place] [address] Mason Membreno MD Acute on chronic renal insufficiency (Primary Dx) 11/01/2024 Abstract [facility] [place] [facility] [address] [place] [address] [place] [address] Mason Membreno MD 11/01/2024 Bamboo flowsheet [facility] [place] [facility] [address] [facility] 110 [place] [address] Mason Membreno MD 11/01/2024 Travel 10/22/2024 Abstract [facility] [place] [facility] [address] [facility] 110 [place] [address] Mason Membreno MD 10/22/2024 Patient Outreach [facility] [address] [place] [address] Sahye Mejia RN 10/17/2024 Abstract [facility] [place] [facility] [address] [facility] 110 [place] [address] Mason Membreno MD 10/17/2024 Abstract [facility] [place] [facility] [address] [place] [place] [address] Mason Membreno MD 10/17/2024 Abstract [facility] [place] [facility] [address] [place] [address] [place] [address] Mason Membreno MD 10/11/2024 8:30 AM EDT Office Visit [facility] [place] [facility] [address] [place] [address] [place] [address] Masno Membreno MD Type 2 diabetes mellitus with stage 3b chronic kidney disease, with long-term current use of insulin (HCC) (Primary Dx); Chronic kidney disease, stage 3b (CMS-HCC); Mixed hyperlipidemia 10/11/2024 Bamboo flowsheet [facility] [place] [facility] [address] [facility] 110 [place] [address] Mason Membreno MD 10/11/2024 Travel from Last [...] Pulse 60 12/05/2024 8:55 AM EDT Temperature 38.2 C (100.8 F) 10/10/2023 3:06 PM EDT Respiratory Rate 16 11/05/2024 11:00 AM EDT Oxygen Saturation 97% 12/05/2024 8:55 AM EDT Inhaled Oxygen Concentration - - Weight 90.7 kg (200 lb) 12/05/2024 8:55 AM EDT Height 172.7 cm (5' 8 ) 12/05/2024 8:55 AM EDT Body Mass Index 30.41 12/05/2024 8:55 AM EDT Plan of Treatment Upcoming Encounters Date Type Department Care Team (Late st Contact Info) Description 01/17/2025 8:30 AM EDT Office Visit [facility] 112 [facility] 120 [place] [address] Kyrie Montes De Oca, DPM 3006 [facility] 5 [place] [address] 02/07/2025 8:30 AM EDT Office Visit [facility] [place] [facility] 112 [facility] 110 [place] [address] Mason Membreno MD 112 [facility] 110 [place] [address] 02/12/2025 9:30 AM EDT Office Visit [facility] [place] [facility] [address] [facility] 310 [place] [address] Syed White MD [address] 111 [place] [address] Health Maintenance Due Date Last Done Comments CT Colonography 1952 FIT-DNA 1952 FIT 1950 FOBT 1950 Sigmoidoscopy 1950 Pneumococcal Vaccine: 65+ Ye ars (3 of 3 - PCV20 or PCV21) 02/24/2022 02/24/2017, 07/08/2014 Influenza Vaccine (#1) 2025 4, 04/04/2023, 03/22/2022, Additional history exists Diabetes: Hemoglobin A1C 01/11/2025 025, 06/13/2024, 02/27/2024, Additional history exists Medicare Annual Wellness (AWV) 02/26/2025 1 , 11/24/2022, 08/19/2021 Diabetes: Urine Protein Screening 10/26/2025 10/26/2024, 06/13/2024, 12/13/2018 Diabetes: Retinopathy Screening 04/10/2026 4, 08/31/2017 Colonoscopy 02/18/2033 02/18/2023, 02/06, 03/22/2013, Additional history exists Colorectal Cancer Screening 02/18/2033 Procedures Procedure Name Priority Date/Time Associated Diagnosis Comments [facility] CMP (CMP) (FOR REMOTE [facility] USE) Routine 12/04/2024 8:20 AM EDT ALL URINALYSIS Routine 12/04/2024 8:14 AM EDT POCT GLYCATED HEMOGLOBIN, TOTAL Routine 10/11/2024 9:13 [...] Recently Relevant to Health Maintenance Results * (ABNORMAL) [facility] CMP (CMP) (FOR REMOTE [facility] USE) (12/04/2024 8:20 AM EDT) SODIUM 142 136 - 145 mmol/L [facility] POTASSIUM 4.5 3.5 - 5.1 mmol/L [facility] CHLORIDE 106 98 - 107 mmol/L [facility] CARBON DIOXIDE 29.3 21.0 - 32.0 mmol/L [facility] ANION GAP 11.2 TB[facility] GLUCOSE 149(H) 74 - 106 mg/dL [facility] BLOOD UREA NITROGEN 33.0(H) 7.0 - 18.0 mg/dL [facility] CREATININE 2.46(H) 0.70 - 1.30 mg/dL TBH TBH EGFR-AF [place] 32(L) >=60 mL/min/1. 73m 2 TBH TBH EGFR-NON AF [place] 26(L) >=60 mL/min/1. 73m 2 TBH BUN CREATININE RATIO 13.4 TBH CALCIUM 8.7 8.5 - 10.1 mg/dL [facility] BILIRUBIN TOTAL 0.5 0.2 - 1.0 mg/dL TB[facility] ASPARTATE AMINO TRANSFERASE 14(L) 15 - 37 U/L TBH ALANINE AMINOTRANSFERASE 22 16 - 63 U/L TBH ALKALINE PHOSPHATASE 53 46 - 116 U/L TB[facility] TOTAL PROTEIN 7.2 6.4 - 8.2 g/dL TBH ALBUMIN LEVEL 3.6 3.4 - 5.0 g/dL TBH GLOBULIN 3.6 g/dL TBH ALBUMIN GLOBULIN RATIO 1.0 TBH 12/04/2024 8:20 AM EDT 12/04/2024 8:21 AM EDT Narrative [facility]IN[facility]NC - 12/04/2024 8:57 AM EDT us Generic External Data Provider CLINISYNC F inal Result CLINISYPIPO TB * (ABNORMAL) ALL URINALYSIS (12/04/2024 8:14 AM EDT) COLOR URINE LT. YELLOW YELLOW TBH CLARITY URINE CLEAR CLEAR TBH SPECIFIC GRAVITY URINE 1.015 1.005 - 1.025 TBH PH URINE 6.0 5.0 - 9.0 TBH PROTEIN URINE 30(A) NEG/TRACE mg/dL TBH GLUCOSE URINE UA >=1000(A) NEGATIVE mg/dL TBH BILIRUBIN URINE NEGATIVE NEGATIVE TBH KETONES URINE NEGATIVE NEGATIVE mg/dL TBH BLOOD URINE NEGATIVE NEGATIVE TBH NITRITE URINE NEGATIVE NEGATIVE TBH UROBILINOGEN URINE 1.0 0.2 - 1.0 EU/dL TBH LEUKOCYTE ESTERASE URINE NEGATIVE NEGATIVE TBH 12/04/2024 8:14 AM EDT 12/04/2024 8:21 AM EDT Narrative CLINISYNC - 12/04/2024 8:32 AM EDT Generic External Data Provider CLINISYNC F inal Result CLINISYNC [facility] * POCT Glycated hemoglobin, total (10/11/2024 9:13 AM EDT) Hemoglobin A1C 5.7 Blood 10/11/2024 9:13 AM EDT Result [facility] Mason Membreno MD POINT OF CARE TEST ENTER/EDIT ORDERABLES Final Result * Microalbumin / creatinine urine ratio (06/13/2024) MICROALBUMIN, URINE 48 ALB/CREAT RATIO 528 URINE CREAT 91 Urine Urine specimen obtained by clean catch procedure / Unknown 06/13/2024 Result [facility] Mason Membreno MD LAB URINE ORDERABLES Final [...] Narrative 08/31/2017 12:00 PM EDT PERFORMED AT [facility] LOCATION:[id number] NO retinopathy Procedure Note CONVERSION, GENERIC - 09/22/2022 PERFORMED AT [facility] LOCATION:[id number] NO retinopathy Mason Membreno MD OPHTH PHOTOGRAPHY Final Result from Last 3 Months or Most Recently Relevant to Health Maintenance [place] [address] MEDICARE [facility] Care Teams Drum Sprayer Relationship Specialty Start Date End Date Mason Membreno MD [address] [facility] 110 [place] [address] PCP - ACO Reach 09/30/22 Mason Membreno MD [address] [facility] 110 [place] [address] PCP - General Internal Medicine 10/06/22
--- OUTSIDE RECORDS SUMMARY | 2024-12-11 12:12 | XMS_ITS | Encounter Summary ---
Author Organization [facility] Address [address] [facility] [place] [address] Care Team Providers Care Cold Storage Superintendent Name Role Phone Mason Membreno MD Unavailable [phone] Mason Membreno MD Primary Care Provider [phone] Allyssa Aguilar LPN Unavailable Encounter Details Date Type Department Care Team (Late Contact Info) Description 10/19/2022 Orders Only [facility] [place] [facility] [address] [facility] 110 [place] [address] Mason Membreno MD [address] [facility] 110 [place], [place] [id number] Social History Tobacco Use Types Packs/Day Years [...] [facility] [address] [place] 120 [place] [address] Kyrie Montes De Oca DPM 300 [facility] 5 [place] [address] 02/07/2025 8:30 AM EDT Office Visit [facility] [place] [address] [facility] 110 [place] [address] Mason Membreno MD [address] [facility] 110 [place] [address] 02/12/2025 9:30 AM EDT Office Visit [facility] [place] [facility] [address] [place] [address] [place] [address] Syed White MD 7089 [facility] 111 [place], [place] [id number] documented as of this encounter Procedures Procedure Name Priority Date/Time Associated Diagnosis Comments US RENAL BIOPSY Routine 10/18/2022 8:40 AM EDT documented in this encounter Results * US RENAL BIOPSY (10/18/2022 8:40 AM EDT) Anatomical Region Laterality Modality Other Mason Membreno MD [facility] IMAGING Final Result documented in this encounter Visit Diagnoses Not on filedocumented in this encounter Care Teams Cold Storage Superintendent Relationship Specialty Start Date End Date Mason Membreno MD [address] [facility] 110 [place] [address] PCP - ACO Reach 09/30/22 Mason Membreno MD [address] [facility] 110 [place] [address] PCP - General Internal Medicine 10/06/22 Allsysa Aguilar LPN [address] [facility] 110 [place] [address] 11/16/24 11/20/24 documented as of this encounter
--- OUTSIDE RECORDS SUMMARY | 2024-12-11 12:12 | XMS_ITS | Encounter Summary ---
Author Organization [facility] Address [address] [place] [address] Care Team Providers Care Set Up And Charger Name Role Phone Mason Membreno MD Unavailable Maosn Membreno MD Primary Care Provider [phone] Allyssa Aguilar LPN Unavailable Encounter Details Date Type Department Care Team (Late Contact Info) Description 07/02/2024 Abstract [facility] 112 [facility] 110 [place] [address] Mason Membreno MD 112 [facility] 110 [place] [address] Social History Tobacco Use Types Packs/Day Years [...] Visit [facility] [address] [facility] 120 [place] [address] Kyrie Montes De Oca, DPMaryuri 3006 [facility] 5 [place] [address] 02/07/2025 8:30 AM EDT Office Visit [facility] [place] [facility] [address] [facility] 110 [place] [address] Mason Membreno MD [address] [facility] 110 [place] [address] 02/12/2025 9:30 AM EDT Office Visit [facility] [place] [facility] [address] [facility] 310 [place] [address] Syed White MD 4687 [facility] 111 [place], [place] [phone] documented as of this encounter Visit Diagnoses Not on filedocumented in this encounter Care Teams Set Up And Charger Relationship Specialty Start Date End Date Mason Membreno MD [address] [facility] 110 [place] [address] PCP - ACO Reach 09/30/22 Mason Membreno MD [address] [facility] 110 [place] [address] PCP - General Internal Medicine 10/06/22 Allyssa Aguilar LPN [address] [facility] 110 [place] [address] 11/16/24 11/20/24 documented as of this encounter
--- OUTSIDE RECORDS SUMMARY | 2024-12-11 12:12 | XMS_ITS | Encounter Summary ---
Author Organization [facility] Address [address] [place] [address] Care Team Providers Care Hunting Sales Associate Name Role Phone Mason Membreno MD Unavailable [phone] Mason Membreno MD Primary Care Provider [phone] Allyssa Aguilar LPN Unavailable Encounter Details Date Type Department Care Team (Late Contact Info) Description 01/30/2024 Abstract [facility] 112 [facility] 110 [place] [address] Mason Membreno MD 112 [facility] 110 [place] [address] Social History Tobacco Use Types Packs/Day Years [...] Visit [facility] [address] [facility] 120 [place] [address] Kyrie Montes De Oca, DPMaryuri 3006 [facility] 5 [place] [address] 02/07/2025 8:30 AM EDT Office Visit [facility] [place] [facility] [address] [facility] 110 [place] [address] Mason Membreno MD [address] [facility] 110 [place] [address] 02/12/2025 9:30 AM EDT Office Visit [facility] [place] [facility] [address] [facility] 310 [place] [address] Syed White MD 2162 [facility] 111 [place], [place] [phone] documented as of this encounter Visit Diagnoses Not on filedocumented in this encounter Care Teams Hunting Sales Associate Relationship Specialty Start Date End Date Mason Membreno MD [address] [facility] 110 [place] [address] PCP - ACO Reach 09/30/22 Mason Membreno MD [address] [facility] 110 [place] [address] PCP - General Internal Medicine 10/06/22 Allyssa Aguilar LPN [address] [facility] 110 [place] [address] 11/16/24 11/20/24 documented as of this encounter
--- OUTSIDE RECORDS SUMMARY | 2024-12-11 12:12 | XMS_ITS | Encounter Summary ---
Author Organization [facility] Address [address] [place] [address] Care Team Providers Care Customer Engineer Name Role Phone Mason Membreno MD Unavailable [phone] Mason Membreno MD Primary Care Provider [phone] Allyssa Aguilar LPN Unavailable Encounter Details Date Type Department Care Team (Late Contact Info) Description 10/17/2024 Abstract [facility] 112 [facility] 110 [place] [address] Mason Membreno MD 112 [facility] 110 [place] [address] Social History Tobacco Use Types Packs/Day Years [...] Visit [facility] [address] [facility] 120 [place] [address] Kyrie Montes De Oca, DPMaryuri 3006 [facility] 5 [place] [address] 02/07/2025 8:30 AM EDT Office Visit [facility] [place] [facility] [address] [facility] 110 [place] [address] Mason Membreno MD [address] [facility] 110 [place] [address] 02/12/2025 9:30 AM EDT Office Visit [facility] [place] [facility] [address] [facility] 310 [place] [address] Syed White MD 1401 [facility] 111 [place], [place] [id number] documented as of this encounter Visit Diagnoses Not on filedocumented in this encounter Care Teams Customer Engineer Relationship Specialty Start Date End Date Mason Membreno MD [address] [facility] 110 [place] [address] PCP - ACO Reach 09/30/22 Mason Membreno MD [address] [facility] 110 [place] [address] PCP - General Internal Medicine 10/06/22 Allyssa Aguilar LPN [address] [facility] 110 [place] [address] 11/16/24 11/20/24 documented as of this encounter
--- OUTSIDE RECORDS SUMMARY | 2024-12-11 12:12 | XMS_ITS | Encounter Summary ---
Author Organization [facility] Address [address] [place] [address] Care Team Providers Care Director Of Adult Epilepsy Name Role Phone Mason Membreno MD Unavailable [phone] Mason Membreno MD Primary Care Provider [phone] Allyssa Aguilar LPN Unavailable Encounter Details Date Type Department Care Team (Late Contact Info) Description 12/06/2022 Abstract [facility] [place] [facility] 111 [address] 111 [place] [address] Syed White MD [address] 111 [place] [address] Social History Tobacco Use Types Packs/Day Years [...] [address] [facility] [address] [place] [address] Kyrie Montes De Oca, DPMaryuri 3006 [facility] 5 [place] [address] 02/07/2025 8:30 AM EDT Office Visit [facility] [place] [facility] [address] [facility] 110 [place] [address] Mason Membreno MD [address] [facility] 110 [place] [address] 02/12/2025 9:30 AM EDT Office Visit [facility] [place] [facility] [address] [facility] 310 [place] [address] Syed White MD 9601 [facility] 111 [place], [place] [phone] documented as of this encounter Visit Diagnoses Not on filedocumented in this encounter Care Teams Director Of Adult Epilepsy Relationship Specialty Start Date End Date Mason Membreno MD [address] [facility] 110 [place] [address] PCP - ACO Reach 09/30/22 Mason Membreno MD [address] [facility] 110 [place] [address] PCP - General Internal Medicine 10/06/22 Allyssa Aguilar LPN [address] [facility] 110 [place] [address] 11/16/24 11/20/24 documented as of this encounter
--- OUTSIDE RECORDS SUMMARY | 2024-12-11 12:12 | XMS_ITS | Encounter Summary ---
Author Organization [facility] Address [address] [place] [address] Care Team Providers Care Rampman Name Role Phone Mason Membreno MD Unavailable [phone] Mason Membreno MD Primary Care Provider [phone] Allyssa Aguilar LPN Unavailable Encounter Details Date Type Department Care Team (Late Contact Info) Description 03/02/2023 Abstract [facility] 112 [facility] 110 [place] [address] Mason Membreno MD 112 [place] [facility] 110 [place] [address] Social History Tobacco Use Types Packs/Day Years [...] [address] [facility] [address] [place] [address] Kyrie Montes De Oca, DPM 3006 [facility] 5 [place] [address] 02/07/2025 8:30 AM EDT Office Visit [facility] [place] [facility] [address] [facility] 110 [place] [address] Mason Membreno MD [address] [facility] 110 [place] [address] 02/12/2025 9:30 AM EDT Office Visit [facility] [place] [facility] [address] [facility] 310 [place] [address] Syed White MD 5350 [facility] 111 [place], [place] [phone] documented as of this encounter Visit Diagnoses Not on filedocumented in this encounter Care Teams Rampman Relationship Specialty Start Date End Date Mason Membreno MD [address] [facility] 110 [place] [address] PCP - ACO Reach 09/30/22 Mason Membreno MD [address] [facility] 110 [place] [address] PCP - General Internal Medicine 10/06/22 Allyssa Aguilra LPN [address] [facility] 110 [place] [address] 11/16/24 11/20/24 documented as of this encounter
--- OUTSIDE RECORDS SUMMARY | 2024-12-11 12:12 | XMS_ITS | Encounter Summary ---
Author Organization [facility] Address [address] [place] [address] Care Team Providers Care Parking Meter Attendant Name Role Phone Mason Membreno MD Unavailable [phone] Mason Membreno MD Primary Care Provider [phone] Allyssa Aguilar LPN Unavailable Encounter Details Date Type Department Care Team (Late st Contact Info) Description 02/21/2023 Orders Only [facility] [place] [facility] [address] [facility] [address] [place] [address] A, Unknown Practice [address] [place], [place] [address] Social History Tobacco Use Types Packs/Day Years [...] PODIATRY [address] [facility] [address] [place] [address] Kyrie Montes De Oca, DPM 3006 [facility] 5 [place] [address] 02/07/2025 8:30 AM EDT Office Visit [facility] [place] [address] [facility] 110 [place] [address] Mason Membreno MD [address] [facility] 110 [place] [address] 02/12/2025 9:30 AM EDT Office Visit [facility] [place] [facility] [address] [facility] 310 [place] [address] Syed White MD 6805 [facility] 111 [place], [place] [phone] documented as of this encounter Procedures Procedure Name Priority Date/Time Associated Diagnosis Comments COLONOSCOPY DIAGNOSTIC Routine 02/18/2023 9:18 AM EDT documented in this encounter Results * COLONOSCOPY DIAGNOSTIC (02/18/2023 9:18 AM EDT) Anatomical Region Laterality Modality Radiographic Cherri ging us Unknown Practice A IMG XR PROCEDURES Final Resul t documented in this encounter Visit Diagnoses Not on filedocumented in this encounter Care Teams Parking Meter Attendant Relationship Specialty Start Date End Date Mason Membreno MD [address] [facility] 110 [place] [address] PCP - ACO Reach 09/30/22 Mason Membreno MD [address] [facility] 110 [place] [address] PCP - General Internal Medicine 10/06/22 Allyssa Aguilar LPN [address] [facility] 110 [place] [address] 11/16/24 11/20/24 documented as of this encounter
--- OUTSIDE RECORDS SUMMARY | 2024-12-11 12:12 | XMS_ITS | Encounter Summary ---
Author Organization [facility] Address [address] [facility] [place] [address] Care Team Providers Care Educational Paraprofessional Name Role Phone Mason Membreno MD Unavailable [phone] Mason Membreno MD Primary Care Provider [phone] Allyssa Aguilar LPN Unavailable Encounter Details Date Type Department Care Team (Late st Contact Info) Description 11/01/2024 Abstract [facility] [place] [facility] [address] [facility] 110 [place] [address] Mason Membreno MD 112 [place] [facility] 110 [place] [address] Social History Tobacco Use Types Packs/Day Years [...] Visit [facility] [address] [facility] 120 [place] [address] Kyrie Montes De Oca, DPMaryuri 3006 [facility] 5 [place] [address] 02/07/2025 8:30 AM EDT Office Visit [facility] [place] [facility] [address] [facility] 110 [place] [address] Mason Membreno MD [address] [facility] 110 [place] [address] 02/12/2025 9:30 AM EDT Office Visit [facility] [place] [facility] [address] [facility] 310 [place] [address] Syed White MD 1020 [facility] 111 [place] [phone] documented as of this encounter Visit Diagnoses Not on filedocumented in this encounter Care Teams Educational Paraprofessional Relationship Specialty Start Date End Date Mason Membreno MD [address] [facility] 110 [place] [address] PCP - ACO Reach 09/30/22 Mason Membreno MD [address] [facility] 110 [place] [address] PCP - General Internal Medicine 10/06/22 Allyssa Aguilar LPN 112 [facility] 110 [place] [id number] 11/16/24 11/20/24 documented as of this encounter
--- OUTSIDE RECORDS SUMMARY | 2024-12-11 12:12 | XMS_ITS | Encounter Summary ---
Author Organization [facility] Address [address] [facility] [place] [address] Care Team Providers Care Dynamometer Tester Engine Name Role Phone Mason Membreno MD Unavailable [phone] Mason Membreno MD Primary Care Provider [phone] Allyssa Aguilar LPN Unavailable Encounter Details Date Type Department Care Team (Late Contact Info) Description 10/14/2022 Orders Only [facility] [place] [facility] [address] [place] 110 [place] [address] Sheba Rodriguez PA [address] [facility] 110 [place] [address] Social History Tobacco Use Types Packs/Day Years [...] CI PODIATRY [address] [facility] [address] [place] [address] Kyrie Montes De Oca DPM 8032 [facility] 5 [place] [address] 02/07/2025 8:30 AM EDT [facility] [place] [facility] [address] [facility] 110 [place] [address] Mason Membreno MD 112 [facility] 110 [place] [address] 02/12/2025 9:30 AM EDT Office Visit [facility] [place] [facility] [address] [facility] 310 [place] [address] Syed White MD [address] [facility] 111 [place], [place] [phone] documented as of this encounter Procedures Procedure Name Priority Date/Time Associated Diagnosis Comments SCANNED LABS Routine 09/12/2022 3:[address] ABDOMEN/PELVIS WITH CONTRAST Routine 09/12/2022 3:[address] ABDOMEN & PELVIS WO Routine 09/12/2022 3:09 PM EDT documented in this encounter Results * SCANNED LABS (09/12/2022 3:10 PM EDT) [facility] CHG PERFORMABLES Final Res [...] on filedocumented in this encounter Care Teams Dynamometer Tester Engine Relationship Specialty Start Date End Date Mason Membreno MD [address] [place] [facility] 110 [place] [address] PCP - ACO Reach 09/30/22 Msaon Membreno MD [address] [facility] 110 [place] [address] PCP - General Internal Medicine 10/06/22 Allyssa Aguilar LPN [address] [address] 11/16/24 11/20/24 documented as of this encounter
--- OUTSIDE RECORDS SUMMARY | 2024-12-11 12:12 | XMS_ITS | Clinical Summary ---
Author Organization [facility] Address [id number] [address] [place] [address] Care Team Providers Care Loom Setter Fourdrinier Name Role Phone Mason Membreno MD Primary Care Provider [phone] Allergies Active Allergy Reactions Criticality Noted Date [...] hypertension 10/08/2019 Coronary artery disease invo lving [place] coronary artery of [place] heart without angina pectoris 10/08/2019 Gastroesophageal reflux [...] - 12/03/2024 11:59 PM EDT Hospital Encounter [facility] [address] [place] [address] Lumbar radiculopathy Discharge Disposition: Home 12/03/2024 6:53 AM EDT Hospital Encounter [facility] [address] [place] [address] Sacroiliitis, not elsewhere classified Discharge Disposition: Home [...] [facility] [address] [place] [address] Sacroiliitis, not elsewhere classified Health Maintenance Due [...] R knee Medical Devices Implanted Type Area Ve Teacher Device Identifier Shelf Expiration Date Model / Serial / Lot Brng Tib [id number] 0d Kn Ant - [id number] Implanted:Qty : 1 on 10/08/2019 by [facility] Bearing Right: Knee [employer] 09/17/2020 [id number] / / [id number] Cmnt Bn Bio 40gm Rpl [id number] +[id number] - [id number] Implanted:Qty : 1 on 10/08/2019 by [facility] Cement Right: Knee [employer] 08/07/2023 [id number] / / [id number] Cmnt Bn Bio 40gm Rpl [id number] +[id number] - [id number] Implanted:Qty : 1 on 10/08/2019 by [facility]ji [facility] Cement Right: Knee [employer] 08/07/2023 [id number] / / [id number] Ty Tib 79mm Cocr Kn I Beam - [id number] Implanted:Qty : 1 on 10/08/2019 by [facility] Orthopedic Implant Right: Knee [employer] 05/20/2029 [id number] / / [id number] Cmpt Fem Kn Rt 67.5mm Cr Cmnt - [id number] Implanted:Qty : 1 on 10/08/2019 by Reji Black [facility] Orthopedic Implant Right: Knee [employer] 07/13/2029 [id number] / / [id number] Cmpt Ptlr Thn 34mm 3 Pg Kn Ser - [id number] Implanted:Qty : 1 on 10/08/2019 by Reji Black MD at [facility] Orthopedic Implant Right: Knee [employer] 06/20/2024 [id number] / / [id number] Procedures Procedure Name Priority Date/Time Associated Diagnosis Comments MR SACRUM WO CONT Routine 12/03/2024 7:4 8 AM EDT Sacroiliitis, not elsewhere classified MR LUMBAR SPINE WO CONT Routine 12/03/2024 7:47 AM EDT Lumbar radiculopathy from Last 3 Months Results * MR sacrum without contrast (12/03/2024 [...] Edwards MD on 12/05/2024 1:58 PM Kortney L Brown AEROSPACE MEDICINE PHYSICIAN-SHACKLER IMG MRI ORDERABLES Fi nal Result * MR lumbar spine without contrast (12/03/2024 [...] which may produce encroachment upon the left [id number] root. Finalized by Allen Hughes MD on 12/05/2024 7:01 AM Kortney Montes De Oca AEROSPACE MEDICINE PHYSICIAN-SHACKLER IMG MRI ORDERABLES Fi nal Result from Last 3 Months Insurance MEDICARE [facility] Advance Directives * Full Code (Latest Code Status on File) Date Activated Date Inactivated Comments 10/08/2019 2:24 PM 10/08/2019 9:09 PM Care Teams Loom Setter Fourdrinier Relationship Specialty Start Date End Date Mason Membreno MD 112 [facility] 110 [place] [address] PCP - General Internal Medicine 12/14/18
--- OUTSIDE RECORDS SUMMARY | 2024-12-11 12:12 | XMS_ITS | Encounter Summary ---
Author Organization [facility] Address [address] [place] [address] Care Team Providers Care Cnc Cutting Operator Name Role Phone Mason Membreno MD Unavailable [phone] Mason Membreno MD Primary Care Provider [phone] Allyssa Aguilar LPN Unavailable Encounter Details Date Type Department Care Team (Late Contact Info) Description 12/01/2022 Abstract [facility] 112 [facility] 110 [place] [address] Mason Membreno MD 112 [place] [facility] 110 [place] [address] Social History Tobacco Use Types Packs/Day Years [...] [address] [place] [address] [place] [address] Kyrie Montes De Oca, DPM 3006 [facility] 5 [place] [address] 02/07/2025 8:30 AM EDT Office Visit [facility] [place] [facility] [address] [facility] 110 [place] [address] Mason Membreno MD [address] [facility] 110 [place] [address] 02/12/2025 9:30 AM EDT Office Visit [facility] [place] [facility] [address] [facility] 310 [place] [address] Syed White MD 5339 [facility] 111 [place], [place] [phone] documented as of this encounter Visit Diagnoses Not on filedocumented in this encounter Care Teams Cnc Cutting Operator Relationship Specialty Start Date End Date Mason Membreno MD [address] [facility] 110 [place] [address] PCP - ACO Reach 09/30/22 Mason Membreno MD [address] [facility] 110 [place] [address] PCP - General Internal Medicine 10/06/22 Allyssa Aguilar LPN [address] [facility] 110 [place] [address] 11/16/24 11/20/24 documented as of this encounter
--- OUTSIDE RECORDS SUMMARY | 2024-12-11 12:12 | XMS_ITS | Encounter Summary ---
Author Organization [facility] Address [address] [place] [address] Care Team Providers Care Media Services Coordinator Name Role Phone Mason eMmbreno MD Unavailable [phone] Mason Membreno MD Primary Care Provider [phone] Allyssa Aguilar LPN Unavailable Encounter Details Date Type Department Care Team (Late Contact Info) Description 02/25/2023 Abstract [facility] 112 [facility] 110 [place] [address] Mason Membreno MD 112 [place] [facility] 110 [place] [address] Social History Tobacco Use Types Packs/Day Years [...] [address] [place] [address] [place] [address] Kyrie Montes De Oca, DPM 3006 [facility] 5 [place] [address] 02/07/2025 8:30 AM EDT Office Visit [facility] [place] [facility] [address] [facility] 110 [place] [address] Mason Membreno MD [address] [facility] 110 [place] [address] 02/12/2025 9:30 AM EDT Office Visit [facility] [place] [facility] [address] [facility] 310 [place] [address] Syed White MD 5342 [facility] 111 [place], [place] [phone] documented as of this encounter Visit Diagnoses Not on filedocumented in this encounter Care Teams Media Services Coordinator Relationship Specialty Start Date End Date Mason Membreno MD [address] [facility] 110 [place] [address] PCP - ACO Reach 09/30/22 Mason Membreno MD [address] [facility] 110 [place] [address] PCP - General Internal Medicine 10/06/22 Allyssa Aguilar LPN [address] [facility] 110 [place] [address] 11/16/24 11/20/24 documented as of this encounter
--- OUTSIDE RECORDS SUMMARY | 2024-12-11 12:12 | XMS_ITS | Encounter Summary ---
Author Organization [facility] Address [address] [place] [address] Care Team Providers Care Quarter Supervisor Name Role Phone Mason Membreno MD Unavailable [phone] Mason Membreno MD Primary Care Provider [phone] Allyssa Aguilar LPN Unavailable Encounter Details Date Type Department Care Team (Late Contact Info) Description 10/17/2024 Abstract [facility] [address] [facility] 110 [place] [address] Mason Membreno MD 112 [facility] 110 [place] [address] Social History Tobacco Use Types Packs/Day Years [...] Visit [facility]AT[facility] [address] [facility] 120 [place] [address] Kyrie Montes De Oca, DPMaryuri 3006 [facility] 5 [place] [address] 02/07/2025 8:30 AM EDT Office Visit [facility] [place] [facility] [address] [facility] 110 [place] [address] Mason Membreno MD [address] [facility] 110 [place] [address] 02/12/2025 9:30 AM EDT Office Visit [facility] [place] [facility] [address] [facility] 310 [place] [address] Syed White MD 9452 [facility] 111 [place], [place] [phone] documented as of this encounter Visit Diagnoses Not on filedocumented in this encounter Care Teams Quarter Supervisor Relationship Specialty Start Date End Date Mason Membreno MD [address] [facility] 110 [place] [address] PCP - ACO Reach 09/30/22 Mason Membreno MD [address] [facility] 110 [place] [address] PCP - General Internal Medicine 10/06/22 Allyssa Aguilar LPN [address] [facility] 110 [place] [address] 11/16/24 11/20/24 documented as of this encounter
--- OUTSIDE RECORDS SUMMARY | 2024-12-11 12:12 | XMS_ITS | Encounter Summary ---
Author Organization [facility] Address [address] [facility] [place] [address] Care Team Providers Care Fishing Vessel Captain Name Role Phone Mason Membreno MD Unavailable [phone] Mason Membreno MD Primary Care Provider [phone] Allyssa Aguilar LPN Unavailable Encounter Details Date Type Department Care Team (Late st Contact Info) Description 02/27/2024 Abstract [facility] [place] [facility] [address] [facility] 110 [place] [address] Mason Membreno MD 112 [place] [address] [facility] 110 [place] [address] Social History Tobacco Use Types Packs/Day Years [...] Score 0 02/27/2024 11:00 AM EDT Jen Barthoolmew L PN documented as of this encounter Plan of Treatment Upcoming Encounters Date Type Department Care Team (Late st Contact Info) Description 01/17/2025 8:30 AM EDT Office Visit [facility] [address] [facility] 120 [place] [address] Kyrie Montes De Oca, DPMaryuri 3006 [facility] 5 [place] [address] 02/07/2025 8:30 AM EDT Office Visit [facility] [place] [facility] [address] [facility] 110 [place] [address] Mason Membreno MD [address] [facility] 110 [place] [address] 02/12/2025 9:30 AM EDT Office Visit [facility] [place] [facility] [address] [facility] 310 [place] [address] Syed White MD 5980 [facility] 111 [place] [id number] documented as of this encounter Visit Diagnoses Not on filedocumented in this encounter Care Teams Fishing Vessel Captain Relationship Specialty Start Date End Date Mason Membreno MD [address] [facility] 110 [place] [address] PCP - ACO Reach 09/30/22 Mason Membreno MD [address] [facility] 110 [place] [address] PCP - General Internal Medicine 10/06/22 Allyssa Aguilar LPN 112 [facility] 110 [place] [id number] 11/16/24 11/20/24 documented as of this encounter
--- OUTSIDE RECORDS SUMMARY | 2024-12-11 12:12 | XMS_ITS | Encounter Summary ---
Author Organization [facility] Address [address] [place] [address] Care Team Providers Care Timber Deadener Name Role Phone Mason Membreno MD Unavailable [phone] Mason Membreno MD Primary Care Provider [phone] Allyssa Aguilar LPN Unavailable Encounter Details Date Type Department Care Team (Late Contact Info) Description 10/22/2024 Abstract [facility] 112 [facility] 110 [place] [address] Mason Membreno MD 112 [facility] 110 [place] [address] Social History Tobacco Use Types Packs/Day Years [...] WAY [facility] 120 [place] [address] Kyrie Montes De Oca, DPMaryuri 3006 [facility] 5 [place] [address] 02/07/2025 8:30 AM EDT Office Visit [facility] [place] [facility] [address] [facility] 110 [place] [address] Mason Membreno MD [address] [facility] 110 [place] [address] 02/12/2025 9:30 AM EDT Office Visit [facility] [place] [facility] [address] [facility] 310 [place] [address] Syed White MD 7104 [facility] 111 [place], [place] [phone] documented as of this encounter Visit Diagnoses Not on filedocumented in this encounter Care Teams Timber Deadener Relationship Specialty Start Date End Date Mason Membreno MD [address] [facility] 110 [place] [address] PCP - ACO Reach 09/30/22 Mason Membreno MD [address] [facility] 110 [place] [address] PCP - General Internal Medicine 10/06/22 Allyssa Aguilar LPN [address] [facility] 110 [place] [address] 11/16/24 11/20/24 documented as of this encounter
--- OUTSIDE RECORDS SUMMARY | 2024-12-11 12:12 | XMS_ITS | Encounter Summary ---
Author Organization [facility] Address [address] [place] [address] Care Team Providers Care Media Account Executive Name Role Phone Mason Membreno MD Unavailable [phone] Mason Membreno MD Primary Care Provider [phone] Allyssa Aguilar LPN Unavailable Encounter Details Date Type Department Care Team (Late Contact Info) Description 10/17/2024 Abstract [facility] 112 [facility] 110 [place] [address] Mason Membreno MD 112 [facility] 110 [place] [address] Social History Tobacco Use Types Packs/Day Years [...] [facility] [address] [facility] 120 [place] [address] Kyrie Montes De Oca, DPMaryuri 3006 [facility] 5 [place] [address] 02/07/2025 8:30 AM EDT Office Visit [facility] [place] [facility] [address] [facility] 110 [place] [address] Mason Membreno MD [address] [facility] 110 [place] [address] 02/12/2025 9:30 AM EDT Office Visit [facility] [place] [facility] [address] [facility] 310 [place] [address] Syed White MD 2358 [facility] 111 [place], [place] [phone] documented as of this encounter Visit Diagnoses Not on filedocumented in this encounter Care Teams Media Account Executive Relationship Specialty Start Date End Date Mason Membreno MD [address] [facility] 110 [place] [address] PCP - ACO Reach 09/30/22 Mason Membreno MD [address] [facility] 110 [place] [address] PCP - General Internal Medicine 10/06/22 Allyssa Aguilar LPN [address] [facility] 110 [place] [address] 11/16/24 11/20/24 documented as of this encounter
--- OUTSIDE RECORDS SUMMARY | 2024-12-11 12:12 | XMS_ITS | Encounter Summary ---
Author Organization [facility] Address [address] [facility] [place] [address] Care Team Providers Care Heel Attacher Wood Name Role Phone Mason Membreno MD Unavailable [phone] Mason Membreno MD Primary Care Provider [phone] Allyssa Aguilar LPN Unavailable Encounter Details Date Type Department Care Team (Late Contact Info) Description 10/14/2022 Abstract [facility] [place] [facility] [address] [facility] 110 [place] [address] Sheba Rodriguez PA [address] [place] 110 [place], [place] [id number] Social History Tobacco Use Types Packs/Day Years [...] CI PODIATRY [address] [place] 120 [place] [address] Kyrie Montes De Oca DPM 3001 [facility] 5 [place] [address] 02/07/2025 8:30 AM EDT Office Visit [facility] [place] [address] [facility] 110 [place] [address] Mason Membreno MD [address] [facility] 110 [place] [address] 02/12/2025 9:30 AM EDT Office Visit [facility] [place] [facility] [address] [place] 310 [place] [address] Syed White MD 7579 [facility] 111 [place] [address] documented as of this encounter Visit Diagnoses Not on filedocumented in this encounter Care Teams Heel Attacher Wood Relationship Specialty Start Date End Date Mason Membreno MD [address] [facility] 110 [place] [address] PCP - ACO Reach 09/30/22 Mason Membreno MD [address] [facility] 110 [place] [address] PCP - General Internal Medicine 10/06/22 Allyssa Aguilar LPN [address] [facility] 110 [place] [address] 11/16/24 11/20/24 documented as of this encounter
--- OUTSIDE RECORDS SUMMARY | 2024-12-11 12:12 | XMS_ITS | Encounter Summary ---
Author Organization [employer] Address [id number] [address] [place] [address] Care Team Providers Care Psychiatric Specialist Name Role Phone Mason Membreno MD Primary Care Provider [phone] Encounter Details Date Type Department Care Team [...] [facility] [address] [facility] [address] Sacroiliitis, not elsewhere classified documented as of this encounter Goals Goal Patient Goal Type Associated Problems Recent Progress Patient-Stated? Author Improve mobility General Yes Lakia Ochoa, RN Note: Evaluation of progress towards goal: Maximize work with PT at discharge to strengthen R knee documented as of this encounter Visit Diagnoses Not on filedocumented in this encounter Care Teams Psychiatric Specialist Relationship Specialty Start Date End Date Mason Membreno MD [address], [place] 110 [place] [address] PCP - General Internal Medicine 12/14/18 documented as of this encounter
--- OUTSIDE RECORDS SUMMARY | 2024-12-11 12:12 | XMS_ITS | Clinical Summary ---
Author Organization [facility] Address [address] [facility] [place] [address] Care Team Providers Care Seating Captain Name Role Phone Mason Membreno MD Primary Care Provider [phone] Allergies No known active allergies Medications amLODIPine [...] Plan of Treatment Not on file Insurance [facility] MEDICARE Care Teams Seating Captain Relationship Specialty Start Date End Date Mason Membreno MD 112 [place] [id number] PCP - General Internal Medicine 12/30/18
--- NOTE | 2024-12-11 12:13 | XR_ITS ---
The [place] [id number] Patient Name: MAURY VILLALPANDO MRN: [id number] date: 1950 Sex: M Assigned Patient Location: [facility] Current Patient Location: [facility] Accession/Order Number: [id number] Exam Date: 12/11/2024 12:58 Report Date: 12/11/2024 12:59 At the request of: ARASELI KAUR Procedure: XR hand LT 2V LEFT HAND - 3 views REASON FOR EXAM: Left hand pain COMPARISON: None FINDINGS: No focal soft tissue abnormality or acute bony process. Scattered mild degenerative changes particularly involving the IP joints without bony erosions. IMPRESSION: MILD DEGENERATIVE CHANGES INVOLVING THE LEFT HAND WITHOUT ACUTE BONY PROCESS. Impression dictated by: Zion Crocker Jr., DFlorentinOFlorentin 12/11/2024 12:59 PM Dictation Location: [place] [address] Electronically authenticated by: [id number] Y Date: 12/11/2024 12:59
--- OUTSIDE RECORDS SUMMARY | 2024-12-11 12:13 | XMS_ITS | Encounter Summary ---
Author Organization [facility] Address [address] [place] [address] Care Team Providers Care Research Program Intern Name Role Phone Mason Membreno MD Unavailable [phone] Mason Membreno MD Primary Care Provider [phone] Allyssa Aguilar LPN Unavailable Encounter Details Date Type Department Care Team (Late Contact Info) Description 10/12/2023 Abstract [facility] 112 [facility] 110 [place] [address] Mason Membreno MD 112 [facility] 110 [place] [address] Social History Tobacco Use Types Packs/Day Years [...] [facility] 120 [place] [address] Kyrie Montes De Oca, DPMaryuri 3006 [facility] 5 [place] [address] 02/07/2025 8:30 AM EDT Office Visit [facility] [place] [facility] [address] [facility] 110 [place] [address] Mason Membreno MD [address] [facility] 110 [place] [address] 02/12/2025 9:30 AM EDT Office Visit [facility] [place] [facility] [address] [facility] 310 [place] [address] Syed White MD 8280 [facility] 111 [place], [place] [address] documented as of this encounter Visit Diagnoses Not on filedocumented in this encounter Care Teams Research Program Intern Relationship Specialty Start Date End Date Mason Membreno MD [address] [facility] 110 [place] [address] PCP - ACO Reach 09/30/22 Mason Membreno MD [address] [facility] 110 [place] [address] PCP - General Internal Medicine 10/06/22 Allyssa Aguilar LPN [address] [facility] 110 [place] [address] 11/16/24 11/20/24 documented as of this encounter
--- OUTSIDE RECORDS SUMMARY | 2024-12-11 12:13 | XMS_ITS | Encounter Summary ---
Author Organization [facility] Address [address] [place] [address] Care Team Providers Care Child And Family Therapist Name Role Phone Mason Membreno MD Unavailable [phone] Mason Membreno MD Primary Care Provider [phone] Allyssa Aguilar LPN Unavailable Encounter Details Date Type Department Care Team (Late Contact Info) Description 07/19/2023 Abstract [facility] 112 [facility] 110 [place] [address] Mason Membreno MD 112 [facility] 110 [place] [address] Social History Tobacco Use Types Packs/Day Years [...] Visit [facility] [address] [facility] 120 [place] [address] Kyrie Montes De Oca, DPMaryuri 3006 [facility] 5 [place] [address] 02/07/2025 8:30 AM EDT Office Visit [facility] [place] [facility] [address] [facility] 110 [place] [address] Mason Membreno MD [address] [facility] 110 [place] [address] 02/12/2025 9:30 AM EDT Office Visit [facility] [place] [facility] [address] [facility] 310 [place] [address] Syed White MD 8044 [facility] 111 [place], [place] [address] documented as of this encounter Visit Diagnoses Not on filedocumented in this encounter Care Teams Child And Family Therapist Relationship Specialty Start Date End Date Mason Membreno MD [address] [facility] 110 [place] [address] PCP - ACO Reach 09/30/22 Mason Membreno MD [address] [facility] 110 [place] [address] PCP - General Internal Medicine 10/06/22 Allyssa Aguilar LPN [address] [facility] 110 [place] [address] 11/16/24 11/20/24 documented as of this encounter
--- OUTSIDE RECORDS SUMMARY | 2024-12-11 12:13 | XMS_ITS | Encounter Summary ---
Author Organization [facility] Address [address] [place] [address] Care Team Providers Care Portable Canteen Operator Name Role Phone Mason Membreno MD Unavailable [phone] Mason Membreno MD Primary Care Provider [phone] Allyssa Aguilar LPN Unavailable Encounter Details Date [...] EDT Office Visit [facility] 112 [facility] 120 [place] [address] Kyrie Montes De Oca, ZAIN 0743 [facility] 5 [place] [address] 02/07/2025 8:30 AM EDT Office Visit [facility] [address] [facility] 110 [place] [address] Mason Membreno MD [address] [facility] 110 [place] [address] 02/12/2025 9:30 AM EDT Office Visit [facility] [address] [place] 310 [place] [address] Syed White MD 5856 [facility] 111 [place] [address] documented as of this encounter Procedures Procedure Name Priority Date/Time Associated Diagnosis Comments CA ECHO DOPPLER COMPLETE 11/21/2023 2:02 PM EDT documented in this encounter Results * CA ECHO DOPPLER COMPLETE (11/21/2023 2:02 PM EDT) Anatomical Region Laterality Modality Other 11/21/2023 2:02 PM EDT Narrative 11/21/2023 2:04 PM EDT The [address] [address] Cardiology Report Signed Patient: MAURY VILLLAPANDO MR#: [id number] : 1950 Acct:[id number] Age/Sex: 73 / M ADM Date: 11/21/23 Loc: CARD Attending Dr: BG KOEHLER APRN Ordering Physician: BG KOEHLER APRN Date of Service: 11/21/23 Procedure(s): CA echo doppler complete Accession Number(s): [id number] cc: MASON MEMBRENO ; BG KOEHLER APRN Patient Name: MAURY VILLALPANDO MR#: [id number] : 1950 Exam Date: 11/21/2023 Ordering Doctor: BG KOEHLER GROUP WORK PROGRAM AIDE ECHOCARDIOGRAM REPORT PROCEDURE: CA ECHO DOPPLER COMPLETE [...] Area (VTI): 3.06 cm2, 2.96 cm2 Deceleration Fleming: 1.60 m/s2, 1.58 m/s2 Pressure Half-Time: 744.26 [...] Signed By: 11/21/23 1404 DD/ 140 TD/TT: Managing Partner [employer]: Procedure Note Radiology, Radiologist, MD - 11/21/2023 [place] [address] Cardiology Report Signed Patient: MAURY VILLALPANDO EMR#: [id number] : 1950cct:[id number] Age/Sex: 73 / MADM Date: 11/21/23 Loc: CARD Attending Dr: BG KOEHLER APRN Ordering Physician: BG KOEHLER APRN Date of Service: 11/21/23 Procedure(s): CA echo doppler complete Accession Number(s): [id number] cc: MASON MEMBRENO ; BG KOEHLER APRN Patient Name: MAURY VILLALPANDO MR#: [id number] : 1950 Exam Date: 11/21/2023 Ordering Doctor: BG KOEHLER CNP ECHOCARDIOGRAM REPORT PROCEDURE: CA ECHO DOPPLER COMPLETE [...] Area (VTI): 3.06 cm2, 2.96 cm2 Deceleration Fleming: 1.60 m/s2, 1.58 m/s2 Pressure Half-Time: 744.26 [...] By: WILDA JOHNSON Signed By:11/21/23 1404 DD/ 1402 TD/TT: Managing Partner [employer]: Generic External Data Provider [facility] Final Result documented in this encounter Visit Diagnoses Not on filedocumented in this encounter Care Teams Portable Canteen Operator Relationship Specialty Start Date End Date Mason Membreno MD [address] [facility] 110 [place] [address] PCP - ACO Reach 09/30/22 Mason Membreno MD [address] [facility] 110 [place] [address] PCP - General Internal Medicine 10/06/22 Allyssa Aguilar LPN [address] [facility] 110 [place] [address] 11/16/24 11/20/24 documented as of this encounter
--- OUTSIDE RECORDS SUMMARY | 2024-12-11 12:13 | XMS_ITS | Encounter Summary ---
Author Organization [facility] Address [address] [place] [address] Care Team Providers Care Drum Plater Name Role Phone Mason Membreno MD Unavailable [phone] Mason Membreno MD Primary Care Provider [phone] Allyssa Aguilar LPN Unavailable Encounter Details Date Type Department Care Team (Late Contact Info) Description 10/25/2023 Abstract [facility] 112 [facility] 110 [place] [address] Mason Membreno MD 112 [facility] 110 [place] [address] Social History Tobacco Use Types Packs/Day Years [...] Visit [facility] [address] [facility] 120 [place] [address] Kyrie Montes De Oca, DPMaryuri 3006 [facility] 5 [place] [address] 02/07/2025 8:30 AM EDT Office Visit [facility] [place] [facility] [address] [facility] 110 [place] [address] Mason Membreno MD [address] [facility] 110 [place] [address] 02/12/2025 9:30 AM EDT Office Visit [facility] [place] [facility] [address] [facility] 310 [place] [address] Syed White MD 0124 [facility] 111 [place], [place] [address] documented as of this encounter Visit Diagnoses Not on filedocumented in this encounter Care Teams Drum Plater Relationship Specialty Start Date End Date Mason Membreno MD [address] [facility] 110 [place] [address] PCP - ACO Reach 09/30/22 Mason Membreno MD [address] [facility] 110 [place] [address] PCP - General Internal Medicine 10/06/22 Allyssa Aguilar LPN [address] [facility] 110 [place] [address] 11/16/24 11/20/24 documented as of this encounter
--- OUTSIDE RECORDS SUMMARY | 2024-12-11 12:13 | XMS_ITS | Encounter Summary ---
Author Organization [facility] Address [address] [facility] [place] [place] [address] Care Team Providers Care Professor Of Radiology Name Role Phone Mason Membreno MD Unavailable [phone] Mason Membreno MD Primary Care Provider [phone] Encounter Details Date Type Department Care Team (Late Contact Info) Description 12/05/2024 Bamboo flowsheet [facility] [place] [facility] [address] [place] 110 [place] [address] Mason Membreno MD [address] [place] 110 [place] [address] Social History Tobacco Use Types Packs/Day Years [...] PODIATRY [address] [place] 120 [place] [address] Kyrie Montes De Oca, DPM 3006 [facility] 5 [place] [address] 02/07/2025 8:30 AM EDT Office Visit [facility] [place] [facility] [address] [facility] 110 [place] [address] Mason Membreno MD [address] [facility] 110 [place] [address] 02/12/2025 9:30 AM EDT Office Visit [facility] [place] [facility] [address] [facility] 310 [place] [address] Syed White MD 9763 [facility] 111 [place], [place] [address] documented as of this encounter Visit Diagnoses Not on filedocumented in this encounter Care Teams Professor Of Radiology Relationship Specialty Start Date End Date Mason Membreno MD [address] [facility] 110 [place] [address] PCP - ACO Reach 09/30/22 Mason Membreno MD [address] [facility] 110 [place] [address] PCP - General Internal Medicine 10/06/22 documented as of this encounter
--- OUTSIDE RECORDS SUMMARY | 2024-12-11 12:13 | XMS_ITS | Clinical Summary ---
Author Organization [facility] Address [address] [place] [address] Care Team Providers Care Plating Operator Name Role Phone Herbert Cespedes MD Primary Care Provider [phone] Allergies No known active allergies Medications enalapril [...] N ot on file 04/16/2020 Data from: [email or web address] Last address used for calculation Not [...] 02/24/2017, 12/07/2014, Additional history exists [place] [address] [facility] CHOICE PLUS Care Teams Plating Operator Relationship Specialty Start Date End Date Herbert Cespedes MD PCP - General Family Medicine 02/14/13
--- OUTSIDE RECORDS SUMMARY | 2024-12-11 12:13 | XMS_ITS | Encounter Summary ---
Author Organization [facility] Address [address] [facility] [place] [address] Care Team Providers Care Fish Culturist Name Role Phone Mason Membreno MD Unavailable [phone] Mason Membreno MD Primary Care Provider [phone] Encounter Details Date Type Department Care Team (Latest Contact Info) Description 12/05/2024 Travel Social History Tobacco Use Types Packs/Day [...] LP N documented as of this encounter Plan of Treatment Upcoming Encounters Date Type Department Care Team (Late st Contact Info) Description 01/17/2025 8:30 AM EDT Office Visit [facility] [address] [place] 120 [place] [address] Kyrie Montes De Oca, DPM 3006 [facility] 5 [place] [address] 02/07/2025 8:30 AM EDT Office Visit [facility] [place] [facility] [address] [place] 110 [place] [address] Mason Membreno MD [address] [place] 110 [place] [address] 02/12/2025 9:30 AM EDT Office Visit [facility] [place] [facility] [address] [place] [address] [place] [address] Syed White MD 3492 [facility] 111 [place] [address] documented as of this encounter Visit Diagnoses Not on filedocumented in this encounter Care Teams Fish Culturist Relationship Specialty Start Date End Date Mason Membreno MD [address] [place] 110 [place] [address] PCP - ACO Reach 09/30/22 Mason Membreno MD [address] [place] 110 [place] [address] PCP - General Internal Medicine 10/06/22 documented as of this encounter
--- OUTSIDE RECORDS SUMMARY | 2024-12-11 12:13 | XMS_ITS | Encounter Summary ---
Author Organization [facility] Address [address] [place] [address] Care Team Providers Care Cotton Seed Culler Name Role Phone Mason Membreno MD Unavailable [phone] Mason Membreno MD Primary Care Provider [phone] Encounter Details Date Type Department Care Team (Late Contact Info) Description 12/04/2024 Clinisync Result Encounter [facility] External Department [...] EDT Office Visit [facility] [address] [facility] [address] [place] [id number] Kyrie Montes De Oca, ZAIN [address] [facility] 5 [place] [address] 02/07/2025 8:30 AM EDT Office Visit WILLI Turcios [facility] [address] [facility] [address] [place] [address] Mason Membreno MD [address] [facility] [address] [place] [address] 02/12/2025 9:30 AM EDT Office Visit WILLI [facility] [address] [address] [place] [address] Syed White MD [facility] [address] [place] [address] documented as of this encounter Procedures Procedure Name Priority Date/Time Associated Diagnosis Comments [facility] CMP (CMP) (FOR REMOTE [facility] USE) Routine 12/04/2024 8:20 AM EDT ALL URINALYSIS Routine 12/04/2024 8:14 AM EDT documented in this encounter Results * (ABNORMAL) [facility] CMP (CMP) (FOR REMOTE [facility] USE) (12/04/2024 8:20 AM EDT) SODIUM 142 136 - 145 mmol/L [facility] POTASSIUM 4.5 3.5 - 5.1 mmol/L [facility] CHLORIDE 106 98 - 107 mmol/L [facility] CARBON DIOXIDE 29.3 21.0 - 32.0 mmol/L [facility] ANION GAP 11.2 [facility] GLUCOSE 149(H) 74 - 106 mg/dL [facility] BLOOD UREA NITROGEN 33.0(H) 7.0 - 18.0 mg/dL [facility] CREATININE 2.46(H) 0.70 - 1.30 mg/dL [facility] EGFR-AF AZERBAIJANI 32(L) >=60 mL/min/1. 73m 2 [facility] EGFR-NON AF AZERBAIJANI 26(L) >=60 mL/min/1. 73m 2 [facility] BUN [...] Narrative [facility]IN[facility] - 12/04/2024 8:57 AM EDT Generic External Data Provider CLINISYNC F inal Result Performing Organization Address [facility] de Phone Number CL[facility] TB * (ABNORMAL) ALL URINALYSIS (12/04/2024 8:14 [...] External Data Provider CLINISYNC F inal Result Performing Organization Address [facility] de Phone Number [facility] TB documented in this encounter Visit Diagnoses Not on filedocumented in this encounter Care Teams Cotton Seed Culler Relationship Specialty Start Date End Date Mason Membreno MD [address] [facility] [address] [place] [address] PCP - ACO Reach 09/30/22 Mason Membreno MD [address] [facility] [address] [place] [address] PCP - General Internal Medicine 10/06/22 documented as of this encounter
--- OUTSIDE RECORDS SUMMARY | 2024-12-11 12:13 | XMS_ITS | Encounter Summary ---
Author Organization [facility] Address [address] [place] [address] Care Team Providers Care Talent Acquisition Manager Name Role Phone Mason Membreno MD Primary Care Provider [phone] Reason for Visit * Reason Comments Med Refill Encounter Details Date Type Department Care Team (Late st Contact Info) Description 04/15/2022 Refill [facility] [address] [place] [address] Sandra Chaves MD [address] [facility] [address] [place], [place] [id number] Coronary artery disease, unspecified vessel or lesion type, unspecified whether angina present, unspecified whether [place] or transplanted heart Social History Tobacco Use [...] type, unspecified whether angina present, unspecified whether [place] or transplanted heart documented in this encounter Care Teams Talent Acquisition Manager Relationship Specialty Start Date End Date Mason Membreno MD [address] [facility] [address] [place] [address] PCP - General 04/20/22 documented as of this encounter
== END 2024-12-11 12:04 | disposition home or self-care (01) ==
LOC: RAD 12:08
PROVIDERS: PCP Internal Medicine; Visit Provider Internal Medicine
DX: M79.642 Pain in left hand (principal)
CPT/HCPCS: 73120